=== PATIENT | male | born 1945 | race Caucasian/White ===

== ENCOUNTER → 2016-05-12 | Outpatient (CLI) | payer MEDICARE, OTHER ==
[~2016-05-12] MED LIST: AMLO10TA2 PO; ASPI-983 PO; ATOR40TA70 PO; CLOP75TA28 PO; FURO40TA4 PO; LOSA100T28 PO; METO-274 PO; OMEP20CA12 PO; POTA20TA15 PO; RT-ALBUINH IH; RT-ALBUTEROL SULF 2.5 MG/3 ML PRE-MIX VIAL INH ONE; SPIR25TA3 PO
== END ==
LOC: RT 11:35
PROVIDERS: ATTEND Internal Medicine Cardiovascular Disease
DX: I11.0 Hypertensive heart disease with heart failure (principal); I50.31 Acute diastolic (congestive) heart failure; J43.8 Other emphysema; Z72.0 Tobacco use
CPT/HCPCS: 94060; 94640; 94726; 94729

== ENCOUNTER → 2016-05-14 | Outpatient (CLI) | payer MEDICARE, OTHER ==
[~2016-05-14] MED LIST changes: -RT-ALBUTEROL SULF 2.5 MG/3 ML PRE-MIX VIAL INH ONE
--- NOTE | 2016-05-19 08:06 | ECHOCARDIOGRAPHY REPORT ---
PROCEDURE PHYSICIAN: DAGO DORANTES DATE OF PROCEDURE: 05/14/2016 TWO DIMENSIONAL ECHOCARDIOGRAM REPORT PRIMARY PHYSICIAN: OTHER PHYSICIAN: REFERRING PHYSICIAN: ORDERING PHYSICIAN: Dr. Dorantes INDICATION FOR THE PROCEDURE: 1. Shortness of breath. 2. Congestive heart failure. MEASUREMENTS DERIVED VALUES LV DIAMETER (LAX) NORMALS NORMALS Diastolic 5 (3.6-5.2) Eject. Fract. (60%+/-6%) Systolic (2.3-3.9) Diastolic Vol. % Shortening (0.22-0.42) Systolic Vol. Aortic Root 3.5 IVS THICKNESS Diastolic 1.4 (0.6-1.1) LVPW THICKNESS Diastolic 1.4 (0.6-1.1) LA DIAMETER Systolic 2.9 (2.1-3.7) DESCRIPTION: This is a technically difficult study. The study is not ideal for wall motion analysis . Global left ventricular systolic function appears well preserved. Left ventricular ejection fraction is estimated to be 50 to 55%. There is mild mitral annular calcification. Aortic, mitral and tricuspid valve leaflets show good leaflet excursion. There is mild concentric left ventricular hypertrophy. Doppler imaging shows trivial, mitral and tricuspid regurgitation. There is no Doppler significant valvular stenosis. There is no evidence of any significant intracardiac shunt on this transthoracic echocardiographic study. Inferior vena cava does not appear to be dilated and does have inspiratory collapse. Trivial aortic regurgitation is seen. CONCLUSIONS: 1. Technically difficult study. 2. Well preserved global left ventricular systolic function with an ejection fraction of 50 to 55%. 3. Trivial, mitral, tricuspid and aortic regurgitation. 4. No evidence of significant valvular stenosis. Job ID: [id number] Dictated Date: 05/18/2016 15:30:55 Food Processing Scientist Date: 05/19/2016 07:56:28 / kay
== END ==
LOC: CARD 10:11
PROVIDERS: ATTEND Internal Medicine Cardiovascular Disease
DX: I50.31 Acute diastolic (congestive) heart failure (principal); I11.0 Hypertensive heart disease with heart failure; J43.8 Other emphysema; Z72.0 Tobacco use
CPT/HCPCS: 93306

== ENCOUNTER 2016-05-18 06:57 | Day surgery (SDC) | payer MEDICARE, OTHER ==
[2016-05-18] VITALS (14 sets, daily range): BP systolic 169–198; BP diastolic 85–99
[~2016-05-18] VITALS: Ht 182.9 cm; Wt 91.6 kg
[2016-05-18] MEDS ORDERED: HEParin (CATH LAB) 2,000 ML IV ONE (07:04)
[2016-05-18] MEDS ORDERED: NS IV 1000 ML 1,000 ML ONE (07:04)
[2016-05-18] MEDS ORDERED: LIDOCAINE 1% INJ 20 ML (XYLOCAINE) VIAL ONE (07:04)
[2016-05-18 07:41] LABS: MEAN PLATELET VOLUME 10.8 FL (7.4-10.4); RED BLOOD COUNT 4.78 10^6/uL (4.35-5.85); RED CELL DISTRIBUTION WIDTH 13.2 % (10.0-14.5)
[2016-05-18] MEDS ORDERED: NS IV 1000 ML 1,000 ML IV SCH ×2 (07:45→11:26)
[2016-05-18] MEDS ORDERED: FLU TRIvalent (5 YOA+) 2016-17 (AFLURIA) 0.5 ML IM ONE (07:45)
[2016-05-18 07:54] LABS: PROTHROMBIN TIME PATIENT 12.5 SEC (12.2-14.7)
[2016-05-18 07:57] LABS: ALANINE AMINOTRANSFERASE 14 U/L (0-55); ANION GAP 13 MMOL/L (5-14); ASPARTATE AMINO TRANSFERASE 25 U/L (5-34); BILIRUBIN,TOTAL 0.8 MG/DL (0.1-1.0); BLOOD UREA NITROGEN 7 MG/DL (7-18); BUN/CREATININE RATIO 6; CALCIUM 9.1 MG/DL (8.5-10.1); CARBON DIOXIDE 34 MMOL/L (21-32); CHLORIDE 92 MMOL/L (98-107); CHOLESTEROL 195 MG/DL (< 200); CREATININE SERUM 1.17 MG/DL (0.60-1.30); DIRECT LDL 127 MG/DL (1-129); GFR ESTIMATED > 60; GLUCOSE 109 MG/DL (70-105); SODIUM 139 MMOL/L (135-145); TOTAL PROTEIN 7.4 G/DL (6.4-8.2); TRIGLYCERIDES 208 MG/DL (<150); VLDL CHOLESTEROL 42 MG/DL (5-40)
[2016-05-18] MEDS ORDERED: OMEP20CA12 PO (08:29)
[2016-05-18] MEDS ORDERED: ATOR40TA70 PO (08:29)
[2016-05-18] MEDS ORDERED: FURO40TA4 PO (08:29)
[2016-05-18] MEDS ORDERED: METO-274 PO (08:29)
[2016-05-18] MEDS ORDERED: SPIR25TA3 PO (08:29)
[2016-05-18] MEDS ORDERED: LOSA100T28 PO (08:29)
[2016-05-18] MEDS ORDERED: AMLO10TA2 PO (08:29)
[2016-05-18] MEDS ORDERED: RT-ALBUINH IH (08:29)
[2016-05-18] MEDS ORDERED: ASPI-983 PO (08:29)
[2016-05-18] MEDS ORDERED: POTA20TA15 PO (08:29)
[2016-05-18] MEDS ORDERED: MIDAZOLAM 5 MG/5 ML (VERSED) VIAL ONE (10:04)
[2016-05-18] MEDS ORDERED: diphenhydrAMINE 50 MG/ML INJ (BENADRYL) ONE (10:04)
[2016-05-18] MEDS ORDERED: fentaNYL INJECTION 100 MCG/2 ML AMP ONE (10:04)
--- NOTE | 2016-05-18 10:28 | Cardiac Procedure Note-CS/ASA ---
Pre-Procedure Note Pre-Op Procedure Note H&P Reviewed The H&P was reviewed, patient examined and no changes noted. Date H&P Reviewed: May 18, 2016 Time H&P Reviewed: 10:28 Conscious Sedation Pre-Proced Time Reviewed: : ASA Class: 3 Airway Mallampati Classification: ([place] appropriate class) I. II. III, IV Lungs Heart ASA score ASA 1: a normal healthy patient ASA 2: a patient with a mild systemic disease (mid diabetes, controlled hypertension, obesity ASA 3: a patient with a severe systemic disease that limits activity (angina , COPD, prior Myocardial infarction) ASA 4: a patient with an incapacitating disease that is a constant threat to life (CHF, renal failure) ASA 5: a moribund patient not expected to survive 24 hrs. (ruptured aneurysm) ASA 6: a declared brain patient whose organs are being harvested. For emergent operations, add the letter E after the classification Grade 2 Sedation Plan: Analgesia, Amnesia, Plan communicated to team members, Discussed options with patient/fam, Discussed risks with patient/fam Note The patient is an appropriate candidate to undergo the planned procedure, sedation, and anesthesia. The patient immediately re-assessed prior to indication. DAGO RAPHAEL MD FACP FAC CCDS May 18, 2016 10:28
[2016-05-18] MEDS ORDERED: NITROGLYCERIN DRIP 25 MG/D5W 250 ML IV ONE (10:34)
[2016-05-18] MEDS ORDERED: HEParin 1000 UNIT/ML (10ML VIAL) FOR BOLUS ONE (10:34)
[2016-05-18] MEDS ORDERED: EPTIFIBATIDE BOLUS 20 ML IV ONE (10:34)
[2016-05-18] MEDS ORDERED: ASPIRIN 81 MG CHEW (CHILDREN'S ASA) ONE (11:08)
[2016-05-18] MEDS ORDERED: CLOPIDOGREL 300 MG (PLAVIX) TABLET PO ONE ×2 (11:08→11:13)
[2016-05-18] MEDS ORDERED: PATIENT MAY USE OWN MEDS, ALL PO SCH (11:30)
[2016-05-18] MEDS ORDERED: ACETAMINOPHEN 325 MG TABLET/CAPLET (TYLENOL) PO PRN (11:30)
[2016-05-18] MEDS ORDERED: ALBUTEROL INHALER HFA (VENTOLIN HFA) 18 GM IH PRN (13:15)
--- NOTE | 2016-05-18 13:26 | CARDIAC CATHETERIZATION ---
PROCEDURE PHYSICIAN: DAGO RAPHAEL CARDIAC CATHETERIZATION AND CORONARY INTERVENTION DATE OF PROCEDURE: 05/18/2016 Sebastien Toledo is a 70-year-old man who has had new onset congestive heart failure. He has exertional shortness of breath, consistent with an angina equivalent. Cardiac catheterization was carried out today after having obtained an informed consent. PROCEDURE: He was brought to the cardiac catheterization laboratory in a fasting state. The right groin was prepped and draped in usual sterile fashion. 1% lidocaine was used for local anesthesia. Modified Seldinger technique was used to advance a 5-Comoran sheath in the right femoral artery. A 5-Comoran JL4 catheter was used for left coronary angiography. 5-Comoran JR 4 was used for the right coronary angiography. A 5-Comoran pigtail catheter was used for left heart catheterization, left ventricular angiography. 5-Comoran pigtail catheter was pulled back to the aortic arch and aortic arch angiography was performed. The catheter was then removed. PERCUTANEOUS INTERVENTION OF THE RIGHT CORONARY ARTERY: Following diagnostic procedure, we carried out percutaneous intervention to the dominant right coronary artery which is exhibiting 80% mid vessel stenosis. We exchanged the sheath over or a wire for a 6-Comoran sheath. We used a 6-Comoran JR4 guide catheter. We have a double bolus of Integrilin. We gave 6500 units of intravenous heparin. We advanced a BMW wire across the lesion after engaging the right coronary artery with the 6-Comoran JR4 guide catheter. We advanced Alpine Xience 3.0 x 15 mm stent to the lesion and the stent was deployed at 18 atmospheres. Stent expansion was achieved. Subsequent angiography revealed 0% residual stenosis at the site of 80% stenosis but there appeared to be approximately 60% stenosis just proximal to the proximal area of the stent. Accordingly, following removal of the stent balloon, we advanced another Alpine Xience stent. This is Alpine Xience 3.5 x 12 mm. This was made to overlap slightly with the previous stent and the stent was deployed at 10 atmospheres. The stent was deployed at 15 atmospheres. Peripheral stent expansion was achieved. The stent balloon was removed and we then advanced an Emerge 3.5 x 15 mm balloon and balloon inflation was carried out within the stented area, including the area of the stent overlap. This balloon was then removed. Subsequent angiography revealed 0% residual stenosis at the previous site of 80% 60% stenoses in the proximal and mid right coronary artery; flow throughout the vessel was normal. The mid to distal right coronary artery has approximately 30% stenosis. The distal right coronary artery has approximately 30 to 40% stenosis. These were not intervened on. Flow throughout the vessel was normal. The very distal right coronary artery and its small branch have moderate disease. HEMODYNAMICS: Left ventricular end diastolic pressure following coronary angiography was 9 mmHg. There is no significant pressure gradient on pullback across the aortic valve. Ascending aortic pressure 153/77 with a mean of 107 mmHg. LEFT VENTRICULAR ANGIOGRAPHY: Left ventricular angiography was carried out in the right anterior oblique projection. Global left ventricular systolic function is normal. No regional wall motion abnormalities are seen. Left ventricular ejection fraction of 50 to 55%. There does not appear to be significant mitral regurgitation. AORTIC ARCH ANGIOGRAPHY: Aortic arch angiography did not indicate any significant thoracic aortic aneurysm or dissection. There is considerable calcification of the aortic arch. The neck arteries, to the extent visualized, do not seem to have significant obstructive disease. CORONARY ANGIOGRAPHY: Diffuse coronary calcification is present. There is diffuse, moderate disease of the left coronary system. The right coronary artery is dominant. There was 80% mid vessel stenosis and 60% proximal stenosis. These areas were treated with overlapped stents. From a proximal to distal, the stents are Alpine Xience 3.5 x 12 mm and Alpine Xience 3.0 x 15 mm. These have been postdilated with a 3.5 mm balloon. There is no significant residual stenosis following stent deployment. The distal right coronary artery has multiple stenoses of up to approximately 40 to 50%. CONCLUSIONS: 1. Coronary artery disease, primarily consisting of up to 80% mid vessel stenosis right coronary artery which was treated with overlapping stents: Alpine Xience 3.5 x 15 mm proximally and Alpine Xience 3.0 x 15 mm distally, postdilated with a 3.5 mm balloon. The rest of the coronary vessels have diffuse, moderate disease. 2. Well-preserved global left ventricular systolic function with an ejection fraction of 50 to 55%. 3. No significant mitral regurgitation. 4. Normal left ventricular end-diastolic pressure. 5. Aortic arch calcification. DISCUSSION AND RECOMMENDATIONS: Risk factor modifications were already reviewed with him. Aspirin and clopidogrel has been added to the regimen. He is being hospitalized for observation following today's procedure. Job ID: [id number] Dictated Date: 05/18/2016 11:22:24 Fur Feeder Date: 05/18/2016 13:03:20 / sadie ZELAYA
[2016-05-18] MEDS: meTOprolol SUCCINATE 100 MG (TOPROL XL) TAB PO SCH (20:09)
[2016-05-18] MEDS ORDERED: ATORVASTATIN 40 MG (LIPITOR) TABLET PO SCH (21:00)
[2016-05-18] MEDS ORDERED: amLODIPine 10 MG (NORVASC) TAB PO SCH (21:00)
[2016-05-18] MEDS ORDERED: OMEPRAZOLE 20 MG (PriLOSEC) CAP NON-FORMULARY PO SCH (21:00)
[2016-05-19] VITALS: BP 163/82
[2016-05-19 03:30] VITALS: BP 170/86
[2016-05-19 04:36] LABS: MEAN PLATELET VOLUME 11.3 FL (7.4-10.4); RED BLOOD COUNT 3.99 10^6/uL (4.35-5.85); WHITE BLOOD COUNT 4.1 10^3/uL (4.3-11.0)
[2016-05-19 04:55] LABS: ANION GAP 11 MMOL/L (5-14); BLOOD UREA NITROGEN 8 MG/DL (7-18); BUN/CREATININE RATIO 9; CALCIUM 8.3 MG/DL (8.5-10.1); CARBON DIOXIDE 29 MMOL/L (21-32); CHLORIDE 96 MMOL/L (98-107); CREATININE SERUM 0.91 MG/DL (0.60-1.30); GFR ESTIMATED > 60; GLUCOSE 96 MG/DL (70-105); POTASSIUM 2.8 MMOL/L (3.6-5.0); SODIUM 136 MMOL/L (135-145)
[2016-05-19] MEDS ORDERED: KCL 20 MEQ TAB (K-DUR) PO SCH (07:00)
[2016-05-19 07:45] VITALS: BP 149/80
--- NOTE | 2016-05-19 08:30 | Progress Note-Cardiology ---
Cardiology SOAP Progress Note Subjective: Up in the room. No c/o CP, palpitations, dyspnea, syncope or near syncope. Objective: I&O/Vital Signs Vital Sign - Last 12Hours 05/18/16 05/19/16 05/19/16 05/19/16 23:02 00:00 00:00 01:00 Temp 100.0 Pulse 86 76 79 75 Resp 16 20 20 B/P 163/82 163/82 Pulse Ox 96 95 95 O2 Delivery Nasal Cannula Nasal Cannula Nasal Cannula O2 Flow Rate 2.00 2.00 2.00 05/19/16 05/19/16 03:30 07:00 Temp 99.9 Pulse 68 67 Resp 20 B/P 170/86 Pulse Ox 94 O2 Delivery Nasal Cannula O2 Flow Rate 1.00 Intake and Output 05/19/16 00:00 Intake Total 1400 ml Output Total 1600 ml Balance -200 ml Weight (Pounds): 202 Weight (Ounces): 0.0 Weight (Calculated Kilograms): 91.887233 Side: right Groin site without hematoma: Yes Condition: DP/PT pulses palpable, extremity w/d/p Bruising: mild bruising Constitutional: AAO x 3 Respiratory: No accessory muscle use, No respiratory distress, chest expansion is symmetric chest is bilaterally symmetric lungs clear to auscultation Cardiovascular: regular rate-rhythmNo JVD, S1 and S2 Gastrointestional: No tender, soft round Extremities: no lower extremity edema bilateral Neurologic/Psychiatric: grossly intact Skin: No ulcerations Results/Procedures: Labs Laboratory Tests 05/19/16 04:02: Anion Gap 11, BUN/Creatinine Ratio 9, Blood Urea Nitrogen 8, Calcium Level 8.3L , Carbon Dioxide Level 29, Chloride Level 96L, Creatinine 0.91, Estimat Glomerular Filtration Rate > 60, Glucose Level 96, Hematocrit 40, Hemoglobin 14.5, Mean Corpuscular Hemoglobin 36H, Mean Corpuscular Hemoglobin Concent 36, Mean Corpuscular Volume 101H, Mean Platelet Volume 11.3H, Platelet Count 134, Potassium Level 2.8L, Red Blood Count 3.99L, Red Cell Distribution Width 13.0, Sodium Level 136, White Blood Count 4.1L Procedures S/P cardiac cath on 05-18-16 with successful intervention per Dr. Dorantes. Please refer to his cardiac cath report for details. A/P: Assessment: Coronary artery disease, primarily consisting of up to 80% mid vessel stenosis right coronary artery which was treated with overlapping stents: Alpine Xience 3.5 x 15 mm proximally and Alpine Xience 3.0 x 15 mm distally, postdilated with a 3.5 mm balloon. The rest of the coronary vessels have diffuse, moderate disease. Well-preserved global left ventricular systolic function with an ejection fraction of 50 to 55%. No significant mitral regurgitation. Normal left ventricular end-diastolic pressure. Aortic arch calcification. Per cardiac cath of 05-18-16 Recent exacerbation of advanced COPD Recent hospitalization with new onset diastolic CHF - clinically compensated MPI of 11-04-15 showed no evidence of significant myocardial ischemia or infarction. global LV systolic function appears to be at the lower limit of normal to mildly impaired. LVEF is calculated to be 41-46%, but subjectively appears to be around 50%. Mild to mod cardiomegaly Echocardiogram of February 2015 at [facility] in [place], [place] by Dr. Jensen showed LVEF 55%. Mild to mod LVH. Mild diastolic dysfunction. Mild AI. Trace TR. Severe ostial left renal artery stenosis with subsequent percutaneious transluminal angioplasty and residual minimal stenosis, no dissection or distal embolization by Dr. Keen at [facility] in [place], [place] CT of the chest from August 2006 showed borderline adenopathy in the axillary regions and in the subcarnial space. 7 mm pulmonary nodule in the RUL. Advise f/u with his PCP Carotid arterial disease with Left CEA on 01-12-[address] Langston in [place], [place]. Carotid u/s of April 2016 showed mild bilat carotid dz No evidence of AAA per u/s of 05-14-16 PAD - angioplasty of the right anterior tibial, posterior tibial and peroneal with Medtronic Nitinol 4mm x 20mm stent in the right posterior tibial November by Dr. Langston in [place], [place] Hypertension HLP - statin therapy followed by his PCP Emphysema GERD EKG of 11-03-15 showed LVH with repolarization abnormality and LAFB Tobaccoism (2 PPD) - cessation advised Hypokalemia - replace Plan: Risk factor modifications were already reviewed with him. Aspirin and clopidogrel has been added to the regimen. Continue current medications Smoking cessation once again advise Replace potassium Out pt lab Discussed results of cardiac cath from 05-18-16 with him and his spouse Discharge home today with out pt f/u appt Physician Assessment Physician Assessment Lungs: clear Cor: reg A&R * As documented in our note above * I spoke with him and his in detail. I explained the findings and treatments at the time of card cath. I discussed risk factor modification. I discussed med compliance and outpatient f/u. I answered their questions BARNEY KINSEY May 19, 2016 08:30 DAGO DORANTES MD FACP [facility] CCDS May 19, 2016 09:45
[2016-05-19] MEDS ORDERED: CLOP75TA28 PO (08:55)
--- NOTE | 2016-05-19 08:57 | Discharge Inst-Cardiology ---
Discharge Inst-Cardiac Discharge Medications New Medications: Clopidogrel Bisulfate (Clopidogrel) 75 Mg Tablet 75 MG PO DAILY #90 Ref 3 TAB Continued Medications: Albuterol Sulfate (Ventolin Hfa) 18 Gm Hfa.aer.ad 1-2 PUFF IH Q4H PRN SHORTNESS OF BREATH INHALER Amlodipine Besylate (Amlodipine Besylate) 10 Mg Tablet 10 MG PO HS TAB Aspirin (Aspirin EC) 81 Mg Tablet.dr 81 MG PO HS TAB Atorvastatin Calcium (Atorvastatin Calcium) 40 Mg Tablet 40 MG PO HS TAB Furosemide (Furosemide) 40 Mg Tablet 40 MG PO DAILY TAB Losartan Potassium (Losartan Potassium) 100 Mg Tablet 100 MG PO DAILY TAB Metoprolol Succinate (Metoprolol Succinate) 100 Mg Tab.er.24h 100 MG PO Q12H TAB Omeprazole (Omeprazole) 20 Mg Capsule.dr 20 MG PO HS CAP Potassium Chloride (Potassium Chloride) 20 Meq Tab.er.prt 10 MEQ PO DAILY TAKES 1/2 OF A (20 MEQ) TABLET Spironolactone (Spironolactone) 25 Mg Tablet 25 MG PO DAILY LAST FILLED 01/30/16 #60 TAB New, Converted or Re-Newed RX: Transmitted to Pharmacy Patient Instructions Patient Instructions: Lab: BMP and Mag level on Tuesday, May 21, 2016 Please schedule follow up appt to see Dr. Dorantes in 2 weeks BARNEY KINSEY May 19, 2016 08:57
[2016-05-19] MEDS ORDERED: KCL 20 MEQ TAB (K-DUR) PO NR (08:58)
[2016-05-19] MEDS ORDERED: ASPIRIN E.C. 81 MG (ECOTRIN) TAB PO SCH (09:00)
[2016-05-19] MEDS ORDERED: LOSARTAN 100 MG TABLET PO SCH (09:00)
[2016-05-19] MEDS ORDERED: SPIRONOLACTONE 25 MG (ALDACTONE) TAB PO SCH (09:00)
[2016-05-19] MEDS ORDERED: CLOPIDOGREL 75 MG (PLAVIX) TABLET PO SCH (09:00)
[2016-05-19] MEDS ORDERED: FUROSEMIDE 40 MG (LASIX) TAB PO SCH (09:00)
[2016-05-19] MEDS: meTOprolol SUCCINATE 100 MG (TOPROL XL) TAB PO SCH (09:01)
== END 2016-05-19 10:55 | disposition home or self-care (01) ==
LOC: CATH 06:57 → ICU 11:35 → CATH 05-19 10:55
PROVIDERS: ATTEND Internal Medicine Cardiovascular Disease
DX: I50.9 Heart failure, unspecified (principal); I25.10 Atherosclerotic heart disease of native coronary artery without angina pectoris; I70.0 Atherosclerosis of aorta; I25.84 Coronary atherosclerosis due to calcified coronary lesion; J44.9 Chronic obstructive pulmonary disease, unspecified; Z79.899 Other long term (current) drug therapy; Z72.0 Tobacco use; Z95.820 Peripheral vascular angioplasty status with implants and grafts
CPT/HCPCS: 36221; 36415; 80048; 80053; 80061; 85027; 85610; 85730; 87081; 90471; 93005; 93458

== ENCOUNTER → 2016-05-21 | Outpatient (CLI) | payer MEDICARE, OTHER ==
[2016-05-21 12:47] LABS: ANION GAP 12 MMOL/L (5-14); BLOOD UREA NITROGEN 7 MG/DL (7-18); BUN/CREATININE RATIO 7; CALCIUM 8.7 MG/DL (8.5-10.1); CARBON DIOXIDE 28 MMOL/L (21-32); CHLORIDE 98 MMOL/L (98-107); GFR ESTIMATED > 60; GLUCOSE 107 MG/DL (70-105); MAGNESIUM 1.4 MG/DL (1.8-2.4); POTASSIUM 2.9 MMOL/L (3.6-5.0); SODIUM 138 MMOL/L (135-145)
== END ==
LOC: LAB 12:12
PROVIDERS: ATTEND Nurse Practitioner Family
DX: E87.6 Hypokalemia (principal); I10 Essential (primary) hypertension
CPT/HCPCS: 36415; 80048; 83735

== ENCOUNTER → 2016-05-24 | Outpatient (CLI) | payer MEDICARE, OTHER ==
[2016-05-24 10:14] LABS: ANION GAP 15 MMOL/L (5-14); BLOOD UREA NITROGEN 6 MG/DL (7-18); BUN/CREATININE RATIO 6; CALCIUM 8.9 MG/DL (8.5-10.1); CARBON DIOXIDE 26 MMOL/L (21-32); CHLORIDE 97 MMOL/L (98-107); CREATININE SERUM 1.07 MG/DL (0.60-1.30); GFR ESTIMATED > 60; GLUCOSE 110 MG/DL (70-105); MAGNESIUM 1.5 MG/DL (1.8-2.4); POTASSIUM 3.3 MMOL/L (3.6-5.0); SODIUM 138 MMOL/L (135-145)
== END ==
LOC: LAB 09:45
PROVIDERS: ATTEND Nurse Practitioner Family
DX: E87.6 Hypokalemia (principal); E83.42 Hypomagnesemia
CPT/HCPCS: 36415; 80048; 83735

== ENCOUNTER → 2016-05-25 | Outpatient (CLI) | payer MEDICARE, OTHER | LOC: RAD 11:22 | PROVIDERS: ATTEND Internal Medicine Cardiovascular Disease | DX: I73.9 Peripheral vascular disease, unspecified (principal); I50.31 Acute diastolic (congestive) heart failure; I10 Essential (primary) hypertension; Z72.0 Tobacco use; J43.8 Other emphysema | CPT/HCPCS: 93922 ==

== ENCOUNTER → 2016-06-07 | Outpatient (CLI) | payer MEDICARE, OTHER ==
[2016-06-07 09:24] LABS: CALCIUM 9.5 MG/DL (8.5-10.1); CREATININE SERUM 1.39 MG/DL (0.60-1.30); MAGNESIUM 1.7 MG/DL (1.8-2.4); POTASSIUM 3.9 MMOL/L (3.6-5.0)
== END ==
LOC: LAB 08:41
PROVIDERS: ATTEND Nurse Practitioner Family
DX: E87.6 Hypokalemia (principal); E83.42 Hypomagnesemia
CPT/HCPCS: 36415; 80048; 83735

== ENCOUNTER → 2016-06-07 | Outpatient (CLI) | payer MEDICARE, OTHER ==
--- OUTSIDE RECORDS SUMMARY | 2016-06-07 08:38 | XMS REPORT | Continuity of Care Document ---
Author Author [facility] Organization [facility] Address Unknown Phone Unavailable Allergies Active Description Code Type Severity Reaction Onset Reported/Identified Relationship to Patient Clinical Status Yes sulfa drugs NKMA N/A [id number] 12/07/2013 Medications Problems Procedures Results Encounters ACCT No. Visit Date/Time Discharge Status Pt. Type Provider Facility Loc./Unit Complaint [id number] 05/07/2014 14:50:00 2014 23:59:00 DIS Outpatient Sondra Grant [facility] results
--- NOTE | 2016-06-07 09:22 | Diagnostic Imaging Report ---
PROCEDURE: CT chest without contrast. TECHNIQUE: Multiple contiguous axial images were obtained through the chest without the use of intravenous contrast. INDICATION: COPD. CHF. COMPARISON: No prior similar studies are available for comparison. FINDINGS: There is some intralobular septal thickening in the periphery of the lungs more prominent in the mid and lower lung zones. There are no prior similar studies available for comparison. The findings are however likely related to fibrotic changes given slight distorted appearance of the parenchyma in favor of scarring. There is no significant consolidation. There are pulmonary nodules along the minor fissure up to 7 mm in size of indeterminate etiology. No other suspicious nodule or lung mass is identified. The heart size is normal. No pericardial effusion. No pleural effusion. The thoracic aorta is normal in caliber. There are mildly enlarged infracarinal lymph node measuring 1.3 cm and other minimally prominent mediastinal lymph nodes less than 1 cm in size. The hilar vessels are not opacified with no obvious adjacent hilar mass. No axillary lymphadenopathy is identified. The sections in the upper abdomen demonstrates cholecystectomy clips. The osseous structures demonstrate mild degenerative changes. IMPRESSION: 1. There is mild peripheral intralobular septal thickening in the mid and lower lung zones favored to be related to nonspecific fibrotic changes. There is no bronchiectasis or honeycombing. No prior studies are available for comparison. This can be better evaluated with HRCT if needed. 2. Indeterminate 7 mm pulmonary nodule along the minor fissure. A followup exam in 4-6 months is recommended to observe this lesion. 3. Minimally enlarged infracarinal lymph node of uncertain significance. Dictated by: Dictated on workstation # [id number]
== END ==
LOC: RAD 08:35
PROVIDERS: ATTEND Internal Medicine Critical Care Medicine
DX: J43.8 Other emphysema (principal); I50.31 Acute diastolic (congestive) heart failure; R06.83 Snoring; G47.9 Sleep disorder, unspecified; Z72.0 Tobacco use
CPT/HCPCS: 71250

== ENCOUNTER 2016-06-24 20:55 | Outpatient (CLI) | payer MEDICARE, OTHER ==
--- OUTSIDE RECORDS SUMMARY | 2016-06-24 21:08 | XMS REPORT | Continuity of Care Document ---
Author Author [facility] Organization [facility] Address Unknown Phone Unavailable Allergies Active Description Code Type Severity Reaction Onset Reported/Identified Relationship to Patient Clinical Status Yes sulfa drugs NKMA N/A [id number] 12/07/2013 Medications Problems Procedures Results Encounters ACCT No. Visit Date/Time Discharge Status Pt. Type Provider Facility Loc./Unit Complaint [id number] 05/07/2014 14:50:00 2014 23:59:00 DIS Outpatient Sondra Grant [facility] results
== END 2016-06-25 06:00 | disposition home or self-care (01) ==
LOC: SLEEP 20:55
PROVIDERS: ATTEND Internal Medicine Critical Care Medicine
DX: G47.50 Parasomnia, unspecified (principal); G47.30 Sleep apnea, unspecified; G47.10 Hypersomnia, unspecified
CPT/HCPCS: 95810

== ENCOUNTER → 2016-08-09 | Outpatient (CLI) | payer MEDICARE, OTHER ==
[2016-08-09 08:59] LABS: BASOPHILS % (AUTO) 0 % (0-10); EOSINOPHILS # (AUTO) 0.3 10^3/uL (0.0-0.3); EOSINOPHILS % (AUTO) 4 % (0-10); LYMPHOCYTES # (AUTO) 1.1 X 10^3 (1.0-4.0); LYMPHOCYTES % (AUTO) 15 % (12-44); MEAN CORPUSCULAR HEMOGLOBIN 35 PG (25-34); MEAN CORPUSCULAR HGB CONC 34 G/DL (32-36); MEAN CORPUSCULAR VOLUME 103 FL (80-99); MEAN PLATELET VOLUME 10.5 FL (7.4-10.4); MONOCYTES # (AUTO) 0.7 X 10^3 (0.0-1.0); MONOCYTES % (AUTO) 10 % (0-12); NEUTROPHILS # (AUTO) 4.9 X 10^3 (1.8-7.8); NEUTROPHILS % (AUTO) 71 % (42-75); PLATELET COUNT 204 10^3/uL (130-400); RED BLOOD COUNT 3.73 10^6/uL (4.35-5.85); RED CELL DISTRIBUTION WIDTH 13.8 % (10.0-14.5); WHITE BLOOD COUNT 6.9 10^3/uL (4.3-11.0)
[2016-08-09 09:24] LABS: ALANINE AMINOTRANSFERASE 9 U/L (0-55); ALBUMIN 3.5 G/DL (3.2-4.5); ANION GAP 12 MMOL/L (5-14); ASPARTATE AMINO TRANSFERASE 16 U/L (5-34); BILIRUBIN,TOTAL 0.9 MG/DL (0.1-1.0); BLOOD UREA NITROGEN 7 MG/DL (7-18); BUN/CREATININE RATIO 6; CALCIUM 7.9 MG/DL (8.5-10.1); CARBON DIOXIDE 31 MMOL/L (21-32); CHLORIDE 97 MMOL/L (98-107); CHOLESTEROL 138 MG/DL (< 200); CREATININE SERUM 1.12 MG/DL (0.60-1.30); DIRECT LDL 83 MG/DL (1-129); GFR ESTIMATED > 60; GLUCOSE 98 MG/DL (70-105); MAGNESIUM 1.1 MG/DL (1.8-2.4); POTASSIUM 2.6 MMOL/L (3.6-5.0); SODIUM 140 MMOL/L (135-145); TOTAL PROTEIN 6.8 G/DL (6.4-8.2); TRIGLYCERIDES 178 MG/DL (<150); VLDL CHOLESTEROL 36 MG/DL (5-40)
== END ==
LOC: LAB 08:27
PROVIDERS: ATTEND Internal Medicine Cardiovascular Disease
DX: E78.4 Other hyperlipidemia (principal); I73.89 Other specified peripheral vascular diseases; I65.23 Occlusion and stenosis of bilateral carotid arteries; I25.10 Atherosclerotic heart disease of native coronary artery without angina pectoris; I12.9 Hypertensive chronic kidney disease with stage 1 through stage 4 chronic kidney disease, or unspecified chronic kidney disease; N18.3 Chronic kidney disease, stage 3 (moderate); Z72.0 Tobacco use
CPT/HCPCS: 36415; 80053; 80061; 83735; 85025

== ENCOUNTER → 2016-12-13 | Outpatient (CLI) | payer MEDICARE, OTHER ==
[2016-12-13 10:41] LABS: ANION GAP 10 MMOL/L (5-14); BLOOD UREA NITROGEN 7 MG/DL (7-18); BUN/CREATININE RATIO 8; CALCIUM 9.2 MG/DL (8.5-10.1); CARBON DIOXIDE 29 MMOL/L (21-32); CHLORIDE 99 MMOL/L (98-107); CREATININE SERUM 0.93 MG/DL (0.60-1.30); GFR ESTIMATED > 60; GLUCOSE 101 MG/DL (70-105); MAGNESIUM 1.5 MG/DL (1.8-2.4); POTASSIUM 3.3 MMOL/L (3.6-5.0); SODIUM 138 MMOL/L (135-145)
== END ==
LOC: LAB 09:44
PROVIDERS: ATTEND Nurse Practitioner Family
DX: I25.10 Atherosclerotic heart disease of native coronary artery without angina pectoris (principal); I12.9 Hypertensive chronic kidney disease with stage 1 through stage 4 chronic kidney disease, or unspecified chronic kidney disease; N18.3 Chronic kidney disease, stage 3 (moderate); M79.89 Other specified soft tissue disorders; I65.23 Occlusion and stenosis of bilateral carotid arteries; I73.89 Other specified peripheral vascular diseases
CPT/HCPCS: 36415; 80048; 83735

== ENCOUNTER → 2016-12-15 | Outpatient (CLI) | payer MEDICARE, OTHER ==
--- NOTE | 2016-12-15 12:22 | Diagnostic Imaging Report ---
PROCEDURE: CT chest without contrast. TECHNIQUE: Multiple contiguous axial images were obtained through the chest without the use of intravenous contrast. INDICATION: Lung nodule. FINDINGS: The previous CT chest exam performed on 06/07/2016 noted a 7 mm indeterminate pulmonary nodule along the minor fissure. That finding is again evident on this exam and does not seem to have changed significantly in size or appearance (image 31 of 63). This finding was not included on the previous CTA abdomen exam of 05/07/2014 or CTA aorta exam of 11/02/2013. However, its stability in the interval since the previous CT chest exam would suggest it is not related to an aggressive process. I would recommend that a six-month followup CT chest exam be performed for continued study. The overall appearance of the chest has not changed significantly otherwise. No other parenchymal nodule is identified. The chronic pulmonary changes seen previously are again evident and no different. There is still no sign of failure, pneumonia or pleural effusion to suggest an acute abnormality. The heart is enlarged but stable in size. There are coronary artery calcifications evident. The aorta is not abnormally dilated. There is no significant mediastinal or hilar adenopathy noted. The 13 mm subcarinal node seen on the previous exam now measures 12 mm. The thyroid gland is unremarkable. There is no obvious breast mass. The sections through the upper abdomen show that the liver is of lower density than usually seen. This does suggest fatty metamorphosis. The bone windows are unremarkable for an acute fracture or for destructive lesion. IMPRESSION: 1. The 7 mm noncalcified nodule in the minor fissure on the right seen previously appears stable. Most likely, this is a benign process. Recommendations as above. 2. The overall appearance of the chest itself has not changed significantly since the prior exam. There is no acute cardiopulmonary abnormality noted. Dictated by: Dictated on workstation # [id number]
== END ==
LOC: RAD 10:53
PROVIDERS: ATTEND Nurse Practitioner Family
DX: R91.1 Solitary pulmonary nodule (principal)
CPT/HCPCS: 71250

== ENCOUNTER → 2017-06-14 | Outpatient (CLI) | payer MEDICARE, OTHER ==
[~2017-06-14] MED LIST changes: -METO-274 PO; +METO-395 PO
--- NOTE | 2017-06-14 13:11 | Diagnostic Imaging Report ---
PROCEDURE: CT chest without contrast. TECHNIQUE: Multiple contiguous axial images were obtained through the chest without the use of intravenous contrast. INDICATION: Followup lung nodules. COMPARISON: Comparison is made with prior CT chest from 12/15/2016. FINDINGS: No axillary lymphadenopathy is seen. Small mediastinal lymph nodes appear to be fairly stable. Subcarinal node is stable at 12 mm. Coronary arterial calcifications are again noted. No pericardial fluid is seen. There does appear to be trace pleural fluid on the right. Parenchymal evaluation again demonstrates interstitial changes throughout both lungs. Nodular density noted along the minor fissure on the right is stable at approximately 6 mm. No new parenchymal nodule is seen. IMPRESSION: 1. Stable right middle lobe pulmonary nodule. This now shows one year of stability. Additional six-month followup is recommended to show continued stability. 2. Development of trace right pleural effusion. Dictated by: Dictated on workstation # [id number]
== END ==
LOC: RAD 11:06
PROVIDERS: ATTEND Nurse Practitioner Family
DX: R91.1 Solitary pulmonary nodule (principal); G47.33 Obstructive sleep apnea (adult) (pediatric); J44.9 Chronic obstructive pulmonary disease, unspecified; Z72.0 Tobacco use
CPT/HCPCS: 71250

== ENCOUNTER → 2017-12-28 | Outpatient (CLI) | payer MEDICARE, OTHER ==
[~2017-12-28] MED LIST changes: -AMLO10TA2 PO; +AMLO10TA6 PO; -LOSA100T28 PO; +LOSA100T8 PO; +RT-ALBUTEROL SULF 2.5 MG/3 ML PRE-MIX VIAL INH ONE; -SPIR25TA3 PO; +SPIR25TA5 PO
== END ==
LOC: RT 16:05
PROVIDERS: ATTEND Nurse Practitioner Family
DX: J84.10 Pulmonary fibrosis, unspecified (principal); G47.33 Obstructive sleep apnea (adult) (pediatric); R91.8 Other nonspecific abnormal finding of lung field; J44.9 Chronic obstructive pulmonary disease, unspecified; Z72.0 Tobacco use; R06.00 Dyspnea, unspecified; J90 Pleural effusion, not elsewhere classified; I50.31 Acute diastolic (congestive) heart failure
CPT/HCPCS: 94060; 94726; 94729

== ENCOUNTER → 2018-03-01 | Outpatient (CLI) | payer MEDICARE, OTHER ==
[~2018-03-01] MED LIST changes: -RT-ALBUTEROL SULF 2.5 MG/3 ML PRE-MIX VIAL INH ONE
--- NOTE | 2018-03-01 15:48 | Diagnostic Imaging Report ---
PROCEDURE: CT chest without contrast. TECHNIQUE: Multiple contiguous axial images were obtained through the chest without the use of intravenous contrast. INDICATION: Lung nodules and pleural effusions as well as shortness of breath. COMPARISON: Comparison is made with prior CT chest from 12/12/2017. FINDINGS: No axillary lymphadenopathy is identified. Multiple lymph nodes in the mediastinum are again seen and appear similar to prior exam. Geri are unremarkable. Coronary arterial calcifications are again noted. No pericardial or pleural fluid is seen. Peripheral interstitial changes which appear chronic are similar to prior exam. Nodular density in the right middle lobe is stable at 6-7 mm. No new parenchymal mass is identified. Upper abdomen is unremarkable. IMPRESSION: Stable noncontrast CT of the chest when compared with prior CT from 12/12/2017. Dictated by: Dictated on workstation # [id number]
== END ==
LOC: RAD 15:03
PROVIDERS: ATTEND Nurse Practitioner Family
DX: J90 Pleural effusion, not elsewhere classified (principal); I50.31 Acute diastolic (congestive) heart failure; J43.8 Other emphysema; G47.33 Obstructive sleep apnea (adult) (pediatric); R91.8 Other nonspecific abnormal finding of lung field; Z72.0 Tobacco use
CPT/HCPCS: 71250

== ENCOUNTER → 2018-03-07 | Outpatient (CLI) | payer MEDICARE, OTHER ==
--- NOTE | 2018-03-07 10:41 | Diagnostic Imaging Report ---
INDICATION: Dyspnea and hypersomnolence. TECHNIQUE: PA and lateral views of the chest were obtained. FINDINGS: There is cardiomegaly and mild venous congestion. There is no pleural effusion or pneumothorax. The mediastinum is unremarkable. IMPRESSION: Cardiomegaly and mild central pulmonary venous congestion. Dictated by: Dictated on workstation # [id number]
== END ==
LOC: RAD 09:14
PROVIDERS: ATTEND Nurse Practitioner Family
DX: J90 Pleural effusion, not elsewhere classified (principal); G47.10 Hypersomnia, unspecified; B37.0 Candidal stomatitis; I50.31 Acute diastolic (congestive) heart failure; G47.33 Obstructive sleep apnea (adult) (pediatric); J43.8 Other emphysema; I87.8 Other specified disorders of veins; I51.7 Cardiomegaly; Z72.0 Tobacco use
CPT/HCPCS: 71046

== ENCOUNTER → 2018-03-10 | Outpatient (CLI) | payer MEDICARE, OTHER ==
[~2018-03-10] MED LIST changes: +CATHETER FLUSH 10 ML SYR IV PRN; +IOHEXOL 350 MG/ML 150 ML (OMNIPAQUE 350) VIAL IV ONE; +NS 250 ML (IVPB) BAG IV ONE; +RECEIVED CONTRAST (Hold Metformin) IV SCH
[2018-03-10 12:28] LABS: ALANINE AMINOTRANSFERASE 33 U/L (0-55); ALBUMIN 3.8 GM/DL (3.2-4.5); ALKALINE PHOSPHATASE 129 U/L (40-136); BUN/CREATININE RATIO 7; CALCIUM 9.5 MG/DL (8.5-10.1); CARBON DIOXIDE 24 MMOL/L (21-32); CHLORIDE 96 MMOL/L (98-107); CREATININE SERUM 1.15 MG/DL (0.60-1.30); GFR ESTIMATED > 60; GLUCOSE 90 MG/DL (70-105); POTASSIUM 3.1 MMOL/L (3.6-5.0); SODIUM 135 MMOL/L (135-145); TOTAL PROTEIN 7.2 GM/DL (6.4-8.2)
--- NOTE | 2018-03-10 13:18 | Diagnostic Imaging Report ---
PROCEDURE: CT angiography of the chest with contrast. TECHNIQUE: Multiple contiguous axial images were obtained through the chest after uneventful bolus administration of intravenous contrast. 2D reconstructed CTA MIP acquisitions were also performed. INDICATION: Shortness of air for six days. COMPARISON: Comparison is made with noncontrast CT chest from 03/01/2018. FINDINGS: Evaluation of the pulmonary arterial system is without evidence of thromboembolism. No filling defects are seen within central, lobar or segmental branches. The thoracic aorta is without evidence of dissection. No pericardial or pleural fluid is seen. There are multiple small lymph nodes in the mediastinum, similar to prior exam. Coronary arterial calcifications are present. Parenchymal evaluation again shows some interstitial changes in the subpleural locations bilateral upper and lower lobes. The upper abdomen is unremarkable. IMPRESSION: 1. No evidence of pulmonary embolism or thoracic aortic dissection. 2. Stable interstitial changes when compared with exam from one week earlier. Interstitial changes may be increased when compared with CT dating back to May 2017. Dictated by: Dictated on workstation # [id number]
== END ==
LOC: RAD 11:53
PROVIDERS: ATTEND Nurse Practitioner Family
DX: J44.9 Chronic obstructive pulmonary disease, unspecified (principal); J90 Pleural effusion, not elsewhere classified; R91.8 Other nonspecific abnormal finding of lung field; Z72.0 Tobacco use
CPT/HCPCS: 36415; 71275; 80053

== ENCOUNTER 2018-03-20 05:51 | Outpatient (CLI) | payer MEDICARE, OTHER ==
[~2018-03-20] VITALS: Ht 182.9 cm; Wt 95.3 kg
[~2018-03-20 05:51] MED LIST changes: -CATHETER FLUSH 10 ML SYR IV PRN; -IOHEXOL 350 MG/ML 150 ML (OMNIPAQUE 350) VIAL IV ONE; -NS 250 ML (IVPB) BAG IV ONE; -RECEIVED CONTRAST (Hold Metformin) IV SCH
[2018-03-20] MEDS ORDERED: BUDE10.22 IH (16:05)
[2018-03-20] MEDS ORDERED: UMEC1BLS IH (16:05)
[2018-03-20] MEDS ORDERED: FURO20TA4 PO (16:05)
== END 2018-03-20 16:07 | disposition home or self-care (01) ==
LOC: PREOP 05:51
PROVIDERS: ATTEND Internal Medicine Critical Care Medicine
DX: Z01.818 Encounter for other preprocedural examination (principal)

== ENCOUNTER → 2018-03-23 | Day surgery (SDC) | payer MEDICARE, OTHER ==
[~2018-03-23] VITALS: Ht 182.9 cm; Wt 95.3 kg
[~2018-03-23] MED LIST changes: +BUDE10.22 IH; +FLUMAZENIL (ROMAZICON) 0.1 MG/ML 5 ML VIAL INJ PRN; +FURO20TA4 PO; +LIDOCAINE JELLY 2% (XYLOCAINE) 30 ML TUBE TOP ONE; +LIDOCAINE PF 1% 2 ML AMP IJ ONE; +LIDOCAINE PF 2% 5 ML (XYLOCAINE) VIAL INJ ONE; +MIDAZOLAM 2 MG/2 ML (VERSED) VIAL IVP ONE; +MIDAZOLAM 2 MG/2 ML (VERSED) VIAL ONE; +NALOXONE 0.4 MG/ML 1 ML (NARCAN) VIAL IVP PRN; +NS IV 500 ML 500 ML IV PRN; +NS IV 500 ML 500 ML ONE; +UMEC1BLS IH; +fentaNYL INJECTION 100 MCG/2 ML AMP IVP ONE; +fentaNYL INJECTION 100 MCG/2 ML AMP ONE
--- NOTE | 2018-03-23 08:52 | Progress Note-Pre Operative ---
Pre-Operative Progress Note H&P Reviewed The H&P was reviewed, patient examined and no changes noted. Time Seen by Provider: 08:00 Date H&P Reviewed: Mar 23, 2018 Time H&P Reviewed: 08:50 Pre-Operative Diagnosis: ILD TANMAY MAI DO Mar 23, 2018 08:52
--- NOTE | 2018-03-23 08:53 | Pre-Op Note & Conscious Sedat ---
Pre-Operative Progress Note H&P Reviewed The H&P was reviewed, patient examined and no changes noted. Date H&P Reviewed: Mar 23, 2018 Time H&P Reviewed: 08:52 Conscious Sedation Pre-Proced Time 08:50 ASA Score 3 For ASA 3 and 4: Consider anesthesia and medical clearance. Also, for patients with a history of failed moderate sedation consider anesthesia. Airway Lungs Heart ASA score ASA 1: a normal healthy patient ASA 2: a patient with a mild systemic disease (mid diabetes, controlled hypertension, obesity ASA 3: a patient with a severe systemic disease that limits activity (angina , COPD, prior Myocardial infarction) ASA 4: a patient with an incapacitating disease that is a constant threat to life (CHF, renal failure) ASA 5: a moribund patient not expected to survive 24 hrs. (ruptured aneurysm) ASA 6: a declared brain patient whose organs are being harvested. For emergent operations, add the letter E after the classification Mallampati Classification Grade 3 Sedation Plan Analgesia, Amnesia, Plan communicated to team members, Discussed options with patient/fam, Discussed risks with patient/fam The patient is an appropriate candidate to undergo the planned procedure, sedation, and anesthesia. The patient immediately re-assessed prior to indication. TANMAY MAI DO Mar 23, 2018 08:53
--- NOTE | 2018-03-23 08:57 | Pulmonary Procedures ---
Pulmonary Procedures Date of Procedure Date of Service: Mar 23, 2018 Bronch Bronchoscopy with fluoroscopy Percepta brush, bronchoalveolar lavage (BAL), transbronchial washes and, brushes. Preop DX ILD Postop DX: same, No endobronchial lesions Complications: none After informed consent obtained and formal time out pt was sedated using Fentanyl and Versed. Bronchoscope was advanced through the nare and vocal cords. 1% lidocaine was used to anesthetize vocal cords, epiglottis, jorge alberto, and left/right main stem bronchus. An anatomical tour was undertaken down to the segmental bronchi bilaterally. No endobronchial lesions noted. From the RML a bronchoalveolar lavage (BAL), transbronchial washes and, brushes were obtained. Pt tolerated procedure well. No complications noted. Stat CXR is pending. TANMAY MAI DO Mar 23, 2018 08:57
--- NOTE | 2018-03-23 09:49 | Diagnostic Imaging Report ---
Clinical indication: Patient is post bronchoscopy. Exam: Portable chest x-ray upright view. Comparison: Chest x-ray dated 03/07/2018. Findings: Stable cardiomegaly with no significant pulmonary vascular congestion. There is no pleural effusion or pneumothorax. There is mild to moderate interval increased airspace opacification involving both lung bases (right side more than the left). Otherwise, the remainder of the lungs are clear. Bones show no significant interval abnormality. Stable old healed left rib fractures are seen. Impression: 1: There is interval development of mild to moderate airspace opacification involving both lung bases (right side more than the left) which may represent atelectasis, but superimposed infiltrates can't be completely excluded. 2: Stable cardiomegaly with no significant pulmonary vascular congestion. Dictated by: Dictated on workstation # [id number]
[2018-03-23 10:10] VITALS: BP 182/108
[2018-03-23 10:25] VITALS: BP 182/108
--- NOTE | 2018-03-23 11:10 | Diagnostic Imaging Report ---
Clinical indication: Patient with history of interstitial lung changes. Bronchoscopy. Exam: There is a total of 8 limited intraoperative x-rays of the chest. Comparison: Chest x-ray dated 03/23/2018. Findings and impression: Multiple images show bronchoscopy with sampling. Please see clinician's report for more detail. Fluoroscopy was provided for clinician and a total of 11.1 seconds and 0.264 mGy was provided. Dictated by: Dictated on workstation # [id number]
--- OUTSIDE RECORDS SUMMARY | 2018-03-23 14:06 | XMS REPORT | Continuity of Care Document ---
Author Author [facility] Organization [facility] Address Unknown Phone Unavailable Allergies Active Description Code Type Severity Reaction Onset Reported/Identified Relationship to Patient Clinical Status Yes sulfa drugs NKMA N/A [id number] 12/07/2013 Medications There is no data. Problems There is no data. Procedures There is no data. Results There is no data. Encounters ACCT No. Visit Date/Time Discharge Status Pt. Type Provider Facility Loc./Unit Complaint [id number] 05/07/2014 14:50:00 05/07/2014 23:59:00 DIS Outpatient Sondra Grant [facility] results
--- OUTSIDE RECORDS SUMMARY | 2018-03-23 14:06 | XMS REPORT | Referral Summary ---
Author Organization Unknown Address Unknown Phone Unavailable Care Team Providers Care [place] Assessor Name Role Phone Lew Villalba PCP Encounter [facility] [id number] Date(s): 05/07/14 - 05/07/14 [facility] [address] [place] [address] Discharge Diagnosis: Abdominal bloating Discharge Diagnosis: Renal cyst Discharge Diagnosis: PVD (peripheral vascular disease) Discharge Disposition: Home or Self Care Attending Physician: Sondra Grant Admitting Physician: Sondra Grant Vital Signs Most recent to 1 oldest [Reference Range]: Peripheral Pulse 86 bpm Rate [60-100 bpm] (05/07/14 3:44 PM) Blood Pressure 152/88 mmHg [90-140/60-90 mmHg] *HI* (05/07/14 3:44 PM) Problem List Condition Effective Dates Status Health Status Informant Abdominal Active bloating(Confirmed) PVD (peripheral Active vascular disease)(Confirmed) Renal Active cyst(Confirmed) Bloating(Confirmed) Active Allergies, Adverse Reactions, Alerts Substance Reaction Severity Status sulfa drugs Hives Active Medications Amlodipine besylate Amlodipine besylate, 10 mg, Oral, Daily, 0 Refill(s) Start Date: 10/25/13 Status: Ordered aspirin 81 mg, Oral, Daily, 0 Refill(s) Start Date: 10/25/13 Status: Ordered atenolol 50 mg oral tablet 0.5 tabs, Oral, Daily, 0 Refill(s) Start Date: 10/25/13 Status: Ordered atorvastatin 40 mg oral tablet 0.5 tabs, Oral, Bedtime (once a day), 0 Refill(s) Start Date: 10/25/13 Status: Ordered hydrochlorothiazide 25 mg, Oral, Daily, 0 Refill(s) Start Date: 10/25/13 Status: Ordered losartan 100 mg oral tablet 1 tabs, Oral, Daily, 0 Refill(s) Start Date: 10/25/13 Status: Ordered Metamucil Original Texture Regular 3.4 g, Oral, Daily, 0 Refill(s) Start Date: 01/10/14 Status: Ordered omeprazole 20 mg oral delayed release tablet 1 tabs, Oral, Daily, 0 Refill(s) Start Date: 10/25/13 Status: Ordered Results No data available for this section Immunizations No data available for this section Procedures Procedure Date Related Diagnosis Body Site colonoscopy 12/07/13 EGD 12/07/13 Symptomatic carotid stenosis: Ipsilateral carotid territory TIA or stroke less than 120 days prior to procedure (NMA-No Measure Associated)1 1left carotid CEA Social History Social History Type Response Smoking Status Current every day smoker; Type: Cigarettes; Tobacco use per day: 2 packs daily Assessment and Plan Extracted from: Title: Ambulatory Patient Education Author: Sondra Grant Date: 05/07 Family Medicine Peripheral Vascular Disease Peripheral vascular disease (PVD) is caused by cholesterol buildup in the arteries. The arteries become narrow or clogged. This makes it hard for blood to flow. It happens most in the legs, but it can occur in other areas of your body. HOME CARE Quit smoking, if you smoke. Exercise as told by your doctor. Follow a low-fat, low-cholesterol diet as told by your doctor. Control your diabetes, if you have diabetes. Care for your feet to prevent infection. Only take medicine as told by your doctor. GET HELP RIGHT AWAY IF: You have pain or lose feeling (numbness ) in your arms or legs. Your arms or legs turn cold or blue. You have redness, warmth, and puffiness (swelling ) in your arms or legs. MAKE SURE YOU: Understand these instructions. Will watch your condition. Will get help right away if you are not doing well or get worse. Document Released: 07/06/2010 Document Revised: 07/03/2012 Document Reviewed: [employer] Patient Information 2014 [employer]. No follow up information was provided. Future Scheduled TestsReferral* Return to Clinic 01/11/14 9:25 AM Referrals to Other Providers Referred by: Sondra Faustin
== END | disposition home or self-care (01) ==
LOC: ENDO 07:13
PROVIDERS: ATTEND Internal Medicine Critical Care Medicine
DX: J84.9 Interstitial pulmonary disease, unspecified (principal); J44.9 Chronic obstructive pulmonary disease, unspecified; J90 Pleural effusion, not elsewhere classified; G47.33 Obstructive sleep apnea (adult) (pediatric); R91.8 Other nonspecific abnormal finding of lung field; I50.31 Acute diastolic (congestive) heart failure; I25.10 Atherosclerotic heart disease of native coronary artery without angina pectoris; Z72.0 Tobacco use; Z79.82 Long term (current) use of aspirin; Z79.899 Other long term (current) drug therapy
CPT/HCPCS: 71045; 87015; 87070; 87101; 87116; 87205; 87206; 94640

== ENCOUNTER 2018-07-04 10:00 | Outpatient (RCR) | payer MEDICARE, OTHER ==
[2018-04-10 09:37] VITALS: BP 150/60
--- NOTE | 2018-04-10 12:34 | Pulmonary Rehab Eval/Txmt Plan ---
Pulmonary Rehab Treatment Plan Treatment P Treatment Periord: Initial Diagnosis Diagnosis: INTERSTITIAL LUNG DISEASE Date: Apr 10, 2018 Barriers to Learning Barriers: None Assessment/Problems Exercise: Deconditioning, Decreased Exer Tolerance, No Regular Exercise, Sedentary Type: AEROBIC Frequency: 2 X WEEK Duration: 1 HR CLASS, EXERCISE PER PTS TOLERANCE Barriers to Exercise: NONE Initial MET Level: 2 Aerobic Exercise/Goals Freq: time per week minus RI: 2 MET Level=: 2 Type: Arm Ergometry, Bike, Scifi/Nustep, Treadmill MICHELA ANDREWS DO Apr 10, 2018 12:34
[2018-05-16 10:00] VITALS: BP 140/90
[2018-05-16 10:51] VITALS: BP 159/90
[2018-05-18 10:00] VITALS: BP 121/50
[2018-05-18 11:00] VITALS: BP 130/60
[2018-05-23 10:00] VITALS: BP 160/80
[2018-05-25 10:00] VITALS: BP 160/60
[2018-05-25 11:00] VITALS: BP 130/50
[2018-05-30 10:00] VITALS: BP 150/96
[2018-05-30 11:00] VITALS: BP 146/90
[2018-06-06 09:55] VITALS: BP 140/82
[2018-06-06 11:02] VITALS: BP 150/60
[2018-06-13 09:50] VITALS: BP 160/60
[2018-06-13 10:40] VITALS: BP 140/52
[2018-06-15 09:58] VITALS: BP 160/70
[2018-06-15 10:55] VITALS: BP 150/85
[2018-06-20 08:47] VITALS: BP 150/78
[2018-06-20 11:00] VITALS: BP 138/50
[2018-06-22 09:57] VITALS: BP 145/80
[2018-06-22 10:40] VITALS: BP 123/80
[2018-06-29 10:00] VITALS: BP 180/60
[2018-06-29 11:00] VITALS: BP 170/70
[~2018-07-04] VITALS: Ht 182.9 cm; Wt 92.1 kg
[2018-07-04 10:00] VITALS: BP 130/72
[~2018-07-04 10:00] MED LIST changes: -AMLO10TA6 PO; +AMLO10TA7 PO; -FLUMAZENIL (ROMAZICON) 0.1 MG/ML 5 ML VIAL INJ PRN; -LIDOCAINE JELLY 2% (XYLOCAINE) 30 ML TUBE TOP ONE; -LIDOCAINE PF 1% 2 ML AMP IJ ONE; -LIDOCAINE PF 2% 5 ML (XYLOCAINE) VIAL INJ ONE; +LOSA100T57 PO; -LOSA100T8 PO; -MIDAZOLAM 2 MG/2 ML (VERSED) VIAL IVP ONE; -MIDAZOLAM 2 MG/2 ML (VERSED) VIAL ONE; -NALOXONE 0.4 MG/ML 1 ML (NARCAN) VIAL IVP PRN; -NS IV 500 ML 500 ML IV PRN; -NS IV 500 ML 500 ML ONE; -fentaNYL INJECTION 100 MCG/2 ML AMP IVP ONE; -fentaNYL INJECTION 100 MCG/2 ML AMP ONE
[2018-07-04 11:00] VITALS: BP 118/60
[2018-07-06 09:55] VITALS: BP 170/50
[2018-07-06 10:58] VITALS: BP 160/40
== END 2018-07-09 | disposition home or self-care (01) ==
LOC: PULM 10:00
PROVIDERS: ATTEND Nurse Practitioner Family
DX: J84.9 Interstitial pulmonary disease, unspecified (principal); J44.9 Chronic obstructive pulmonary disease, unspecified; Z72.0 Tobacco use

== ENCOUNTER → 2018-08-30 | Outpatient (CLI) | payer MEDICARE, OTHER ==
[2018-08-30 10:07] LABS: BASOPHILS % (AUTO) 1 % (0-10); EOSINOPHILS # (AUTO) 0.2 10^3/uL (0.0-0.3); EOSINOPHILS % (AUTO) 3 % (0-10); HEMATOCRIT 41 % (40-54); HEMOGLOBIN 14.1 G/DL (13.3-17.7); LYMPHOCYTES # (AUTO) 1.1 X 10^3 (1.0-4.0); LYMPHOCYTES % (AUTO) 21 % (12-44); MEAN CORPUSCULAR HEMOGLOBIN 38 PG (25-34); MEAN CORPUSCULAR HGB CONC 35 G/DL (32-36); MEAN CORPUSCULAR VOLUME 109 FL (80-99); MEAN PLATELET VOLUME 11.1 FL (7.4-10.4); MONOCYTES # (AUTO) 0.7 X 10^3 (0.0-1.0); MONOCYTES % (AUTO) 13 % (0-12); NEUTROPHILS # (AUTO) 3.4 X 10^3 (1.8-7.8); NEUTROPHILS % (AUTO) 63 % (42-75); PLATELET COUNT 110 10^3/uL (130-400); RED CELL DISTRIBUTION WIDTH 17.1 % (10.0-14.5); WHITE BLOOD COUNT 5.4 10^3/uL (4.3-11.0)
[2018-08-30 10:24] LABS: ALANINE AMINOTRANSFERASE 35 U/L (0-55); ALBUMIN 3.6 GM/DL (3.2-4.5); ALKALINE PHOSPHATASE 117 U/L (40-136); AMMONIA 26 UMOL/L (11-32); BILIRUBIN,TOTAL 2.1 MG/DL (0.1-1.0); BUN/CREATININE RATIO 7; CALCIUM 9.3 MG/DL (8.5-10.1); CARBON DIOXIDE 27 MMOL/L (21-32); CHLORIDE 100 MMOL/L (98-107); GFR ESTIMATED > 60; GLUCOSE 119 MG/DL (70-105); POTASSIUM 4.2 MMOL/L (3.6-5.0); SODIUM 137 MMOL/L (135-145); TOTAL PROTEIN 6.7 GM/DL (6.4-8.2)
[2018-08-30 10:28] LABS: ABG BASE EXCESS 1.5 MMOL/L (-2.5-2.5); ABG OXYGEN SATURATION 99 % (94-100); ABG PCO2 37 MMHG (35-45); ABG PH 7.44 (7.37-7.43); ABG PO2 104 MMHG (79-93); ABG TCO2 26.6 MMOL/L (21.0-31.0)
[2018-08-30 10:31] LABS: ALLENS TEST YES-POS; INSPIRED O2 2; PATIENT TEMP 97.1; VENTILATOR NO
== END ==
LOC: RT 09:53
PROVIDERS: ATTEND Internal Medicine
DX: R53.1 Weakness (principal); J44.9 Chronic obstructive pulmonary disease, unspecified; R41.82 Altered mental status, unspecified
CPT/HCPCS: 36415; 36600; 80053; 82140; 82805; 85025

== ENCOUNTER 2018-09-07 10:00 | Outpatient (RCR) | payer MEDICARE, OTHER ==
[2018-07-13 10:00] VITALS: BP 152/60
[2018-07-13 11:00] VITALS: BP 150/60
[2018-07-25 10:00] VITALS: BP 120/80
[2018-07-25 11:00] VITALS: BP 130/60
[2018-07-27 10:00] VITALS: BP 160/60
[2018-07-27 10:55] VITALS: BP 130/60
[2018-08-01 10:00] VITALS: BP 160/60
[2018-08-01 10:40] VITALS: BP 123/60
[2018-08-03 10:00] VITALS: BP 160/70
[2018-08-03 11:00] VITALS: BP 130/87
[2018-08-08 10:00] VITALS: BP 130/60
[2018-08-08 10:59] VITALS: BP 138/60
[2018-08-10 10:00] VITALS: BP 140/80
[2018-08-10 11:00] VITALS: BP 150/50
[2018-08-15 09:55] VITALS: BP 160/50
[2018-08-15 10:52] VITALS: BP 153/60
[2018-08-17 10:00] VITALS: BP 130/60
[2018-08-17 10:49] VITALS: BP 120/60
[2018-08-22 10:00] VITALS: BP 140/60
[2018-08-22 11:00] VITALS: BP 148/60
[2018-08-24 10:00] VITALS: BP 140/60
[2018-08-24 10:51] VITALS: BP 150/60
[2018-09-05 10:00] VITALS: BP 130/68
[2018-09-05 10:50] VITALS: BP 128/70
[2018-09-07 10:00] VITALS: BP 147/82
[2018-09-07 10:44] VITALS: BP 150/50
[2018-09-19] MEDS ORDERED: TIOT4MIS2 IH (07:54)
[2018-09-19] MEDS ORDERED: DEXT1DRO7 OP (07:54)
[2018-09-19] MEDS ORDERED: POTA10CA43 PO (07:54)
[2018-09-19] MEDS ORDERED: METO-395 PO (07:54)
[2018-09-19] MEDS ORDERED: RT-ALBUINH IH (07:54)
[2018-09-19] MEDS ORDERED: ASPI-586 PO (07:54)
[2018-09-19] MEDS ORDERED: ASPI-999 PO (09:43)
== END 2018-10-25 | disposition home or self-care (01) ==
LOC: PULM 10:00
PROVIDERS: ATTEND Nurse Practitioner Family
DX: J84.9 Interstitial pulmonary disease, unspecified (principal); J44.9 Chronic obstructive pulmonary disease, unspecified; Z72.0 Tobacco use

== ENCOUNTER 2018-09-28 15:45 | Outpatient (CLI) | payer MEDICARE, OTHER ==
[~2018-09-28] VITALS: Ht 182.9 cm; Wt 88.0 kg
[~2018-09-28 15:45] MED LIST changes: +ASPI-586 PO; +ASPI-999 PO; +DEXT1DRO7 OP; +POTA10CA43 PO; +TIOT4MIS2 IH
== END 2018-09-28 16:07 | disposition home or self-care (01) ==
LOC: PREOP 15:45
PROVIDERS: ATTEND Internal Medicine
DX: Z01.818 Encounter for other preprocedural examination (principal)

== ENCOUNTER 2018-09-29 07:16 | Day surgery (SDC) | payer MEDICARE, OTHER ==
--- NOTE | 2018-09-27 15:40 | HISTORY AND PHYSICAL ---
DATE OF SERVICE: EGD HISTORY AND PHYSICAL HISTORY OF PRESENT ILLNESS: The patient is 73-year-old white male, who reports a 2-week history of nausea and vomiting as well as diarrhea. He has had postprandial nausea with intermittent vomiting, denying coffee ground emesis or bright red blood. He denies melena or bright red blood per rectum. He believes his weight is down about 5 to 10 pounds and by our scales he is down 10 pounds over the past month. He has had no night sweats, chills or fever. He has epigastric discomfort aggravated postprandially. He has some epigastric bloating following food or fluid intake. Denies lower intestinal cramping or bloating. He denies any radiation of his pain. He has had no antibiotic exposure that he recalls for more than four or five months. Three months ago, he did have an orthopedic procedure and is not sure whether or not he received any antibiotics while in the hospital, but he was not discharged on any antibiotics. 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 He underwent cardiac catheterization last week and had an episode of incontinence after the procedure. He reports no changes were made in his medication with no new disease being appreciated. He has a history of hypertension as well as alcohol use disorder with persistent liver function test elevation. He has had minimal alcohol intake over the past 2 or 3 weeks. He has been on aspirin and Plavix and takes omeprazole 20 mg daily. He was seen in the emergency room on the . Evaluation just involved blood tests. He did not have significant anemia. His white count was normal. Platelet count was normal. Hematocrit was 41% with a white count of 8.5 thousand, hemoglobin of 14.9, platelet count is 173,000. His basic metabolic panel revealed no abnormalities. His AST was 55 and ALT was 28 and alkaline phosphatase of 121 and total bilirubin of 1.2. PAST SURGICAL HISTORY: Significant for previous cholecystectomy. PHYSICAL EXAMINATION: GENERAL: Reveals a chronically ill-appearing white male appearing to be in mild distress. VITAL SIGNS: Blood pressure 128/60, weight 189 pounds, was down 9.4 pounds from one month ago. HEENT: Sclerae were nonicteric. NECK: Revealed no JVD, adenopathy or bruits. CHEST: Clear to auscultation. CARDIOVASCULAR: Regular rate and rhythm without murmur, S3 or S4. ABDOMEN: Soft, supple, nondistended. There is some mild epigastric discomfort to palpation without rebound or guarding. No mass or organomegaly is noted. Bowel sounds are positive. EXTREMITIES: Reveal no cyanosis, clubbing or edema. ASSESSMENT AND PLAN: For further evaluation of nausea and vomiting with epigastric pain, the patient was set up for EGD on 09/29/2018. He was advised to discontinue aspirin and Plavix and increase omeprazole to 20 mg b.i.d. Lomotil in addition to Zofran were given with instructions. Job ID: [id number] DocumentID: [id number] Dictated Date: 09/26/2018 20:23:59 Food Consultant Date: 09/26/2018 20:46:19 Dictated By: ELMER FLOREZ MD
[~2018-09-29] VITALS: Ht 182.9 cm; Wt 88.0 kg
[2018-09-29] MEDS ORDERED: D5 LR IV SOLUTION 1,000 ML IV ONE (07:30)
[2018-09-29] MEDS ORDERED: D5 LR IV SOLUTION 1,000 ML IV STA (07:40)
[2018-09-29] MEDS ORDERED: LIDOCAINE JELLY 2% 6 ML SYRINGE ONE (07:42)
[2018-09-29] MEDS ORDERED: MIDAZOLAM 2 MG/2 ML (VERSED) VIAL ONE ×3 (07:43→08:39)
[2018-09-29] MEDS ORDERED: HURRICAINE EXT TUBE (BENZOCAINE) ONE (07:43)
[2018-09-29] MEDS ORDERED: fentaNYL INJECTION 100 MCG/2 ML AMP ONE (07:43)
[2018-09-29 07:45] VITALS: BP 145/73
[2018-09-29] MEDS ORDERED: LIDOCAINE JELLY 2% 6 ML SYRINGE MM PRN (07:45)
[2018-09-29] MEDS ORDERED: fentaNYL INJECTION 100 MCG/2 ML AMP IVP ONE (07:45)
[2018-09-29] MEDS ORDERED: MIDAZOLAM 2 MG/2 ML (VERSED) VIAL IVP ONE (07:45)
[2018-09-29] MEDS ORDERED: HURRICAINE EXT TUBE (BENZOCAINE) XX PRN (07:45)
--- NOTE | 2018-09-29 07:56 | Pre-Op Note & Conscious Sedat ---
Pre-Operative Progress Note H&P Reviewed The H&P was reviewed, patient examined and no changes noted. Date H&P Reviewed: Sep 29, 2018 Time H&P Reviewed: 07:56 Conscious Sedation Pre-Proced ASA Score 3 For ASA 3 and 4: Consider anesthesia and medical clearance. Also, for patients with a history of failed moderate sedation consider anesthesia. Airway Lungs Heart ASA score ASA 1: a normal healthy patient ASA 2: a patient with a mild systemic disease (mid diabetes, controlled hypertension, obesity ASA 3: a patient with a severe systemic disease that limits activity (angina, COPD, prior Myocardial infarction) ASA 4: a patient with an incapacitating disease that is a constant threat to life (CHF, renal failure) ASA 5: a moribund patient not expected to survive 24 hrs. (ruptured aneurysm) ASA 6: a declared brain- patient whose organs are being harvested. For emergent operations, add the letter E after the classification Mallampati Classification Grade 2 Sedation Plan Analgesia, Amnesia, Plan communicated to team members, Discussed options with patient/fam, Discussed risks with patient/fam The patient is an appropriate candidate to undergo the planned procedure, sedation, and anesthesia. The patient immediately re-assessed prior to indication. ELMER FLOREZ MD Sep 29, 2018 07:56
[2018-09-29 09:25] VITALS: BP 105/56
[2018-09-29 09:55] VITALS: BP 138/89
[2018-09-29 10:02] VITALS: BP 138/89
--- OUTSIDE RECORDS SUMMARY | 2018-09-29 12:26 | XMS REPORT | Continuity of Care Document ---
Author Organization Unknown Address Unknown Allergies Active Description Code Type Severity Reaction Onset Reported/Identified Relationship to Patient Clinical Status Yes sulfa drugs NKMA N/A [id number] 12/07/2013 Yes No Known Drug Allergies [id number] Drug Allergy Unknown N/A 11/04/2015 Yes meperidine [id number] Drug Allergy Unknown N/A 05/18/2016 Yes Sulfa (Sulfonamide Antibiotics) [id number] Drug Allergy Unknown N/A 05/18/2016 Medications There is no data. Problems Date Dx Coded Attending Type Code Diagnosis Diagnosed By 11/04/2015 BARNEY KINSEY CHEMICAL LIBRARIAN Ot I25.10 ATHSCL HEART DISEASE OF [place] CORONARY 11/05/2015 BARNEY KINSEY CHEMICAL LIBRARIAN Ot I25.10 ATHSCL HEART DISEASE OF [place] CORONARY 11/05/2015 BARNEY KINSEY CHEMICAL LIBRARIAN Ot E78.5 HYPERLIPIDEMIA, UNSPECIFIED 11/05/2015 BARNEY KINSEY L CHEMICAL LIBRARIAN Ot I10 ESSENTIAL (PRIMARY) HYPERTENSION 11/05/2015 BARNEY KINSEY CHEMICAL LIBRARIAN Ot I25.10 ATHSCL HEART DISEASE OF [place] CORONARY 11/05/2015 BARNEY KINSEY CHEMICAL LIBRARIAN Ot I51.7 CARDIOMEGALY 11/05/2015 BARNEY KINSEY CHEMICAL LIBRARIAN Ot I73.9 PERIPHERAL VASCULAR DISEASE, UNSPECIFIED 11/05/2015 BARNEY KINSEY CHEMICAL LIBRARIAN Ot I77.9 DISORDER OF ARTERIES AND ARTERIOLES, UNS 11/05/2015 BARNEY KINSEY CHEMICAL LIBRARIAN Ot J43.9 EMPHYSEMA, UNSPECIFIED 11/05/2015 BARNEY KINSEY CHEMICAL LIBRARIAN Ot R94.31 ABNORMAL ELECTROCARDIOGRAM [ECG] [EKG] 11/05/2015 BARNEY KINSEY CHEMICAL LIBRARIAN Ot Z72.0 TOBACCO USE 12/09/2015 BARNEY KINSEY CHEMICAL LIBRARIAN Ot E78.5 HYPERLIPIDEMIA, UNSPECIFIED 12/09/2015 BAIMA, BARNEY L CHEMICAL LIBRARIAN Ot I10 ESSENTIAL (PRIMARY) HYPERTENSION 12/09/2015 BARNEY KINSEY L CHEMICAL LIBRARIAN Ot I25.10 ATHSCL HEART DISEASE OF [place] CORONARY 12/09/2015 BARNEY KINSEY L CHEMICAL LIBRARIAN Ot I51.7 CARDIOMEGALY 12/09/2015 BARNEY KINSEY L CHEMICAL LIBRARIAN Ot I73.9 PERIPHERAL VASCULAR DISEASE, UNSPECIFIED 12/09/2015 BARNEY KINSEY L CHEMICAL LIBRARIAN Ot I77.9 DISORDER OF ARTERIES AND ARTERIOLES, UNS 12/09/2015 BAIBARNEY BROWN L CHEMICAL LIBRARIAN Ot J43.9 EMPHYSEMA, UNSPECIFIED 12/09/2015 BAIMABARNEY L CHEMICAL LIBRARIAN Ot R94.31 ABNORMAL ELECTROCARDIOGRAM [ECG] [EKG] 12/09/2015 BARNEY KINSEY L CHEMICAL LIBRARIAN Ot Z72.0 TOBACCO USE 12/12/2015 BARNEY KINSEY L CHEMICAL LIBRARIAN Ot E78.5 HYPERLIPIDEMIA, UNSPECIFIED 12/12/2015 BAIBARNEY BROWN L CHEMICAL LIBRARIAN Ot I10 ESSENTIAL (PRIMARY) HYPERTENSION 12/12/2015 BARNEY KINSEY L CHEMICAL LIBRARIAN Ot I25.10 ATHSCL HEART DISEASE OF [place] CORONARY 12/12/2015 BARNEY KINSEY L CHEMICAL LIBRARIAN Ot I51.7 CARDIOMEGALY 12/12/2015 BARNEY KINSEY L CHEMICAL LIBRARIAN Ot I73.9 PERIPHERAL VASCULAR DISEASE, UNSPECIFIED 12/12/2015 BAIBARNEY BROWN L CHEMICAL LIBRARIAN Ot I77.9 DISORDER OF ARTERIES AND ARTERIOLES, UNS 12/12/2015 BARNEY KINSEY L CHEMICAL LIBRARIAN Ot J43.9 EMPHYSEMA, UNSPECIFIED 12/12/2015 BAIBARNEY BROWN L CHEMICAL LIBRARIAN Ot R94.31 ABNORMAL ELECTROCARDIOGRAM [ECG] [EKG] 12/12/2015 ARJUNBARNEY BROWN L CHEMICAL LIBRARIAN Ot Z72.0 TOBACCO USE 05/10/2016 IJEOMA CULLEN FACC, ALI FACP CCDS Ot I50.31 ACUTE DIASTOLIC (CONGESTIVE) HEART FAILU 05/10/2016 IJEOMA CULLEN FACC, ALI FACP CCDS Ot Z72.0 TOBACCO USE 05/10/2016 IJEOMA CULLEN FACC, DAGO FACP CCDS Ot I50.31 ACUTE DIASTOLIC (CONGESTIVE) HEART FAILU 05/10/2016 IJEOMA CULLEN FACC, ALI FACP CCDS Ot Z72.0 TOBACCO USE 05/11/2016 IJEOMA CULLEN FACC, ALI FACP CCDS Ot I50.31 ACUTE DIASTOLIC (CONGESTIVE) HEART FAILU 05/11/2016 IJEOMA CULLEN FACC, DAGO FACP CCDS Ot Z72.0 TOBACCO USE 05/12/2016 BARNEY KINSEY CHEMICAL LIBRARIAN Ot E78.5 HYPERLIPIDEMIA, UNSPECIFIED 05/12/2016 ARJUNBARNEY BROWN CHEMICAL LIBRARIAN Ot I10 ESSENTIAL (PRIMARY) HYPERTENSION 05/12/2016 ARJUNBARNEY BROWN CHEMICAL LIBRARIAN Ot I25.10 ATHSCL HEART DISEASE OF [place] CORONARY 05/12/2016 ARJUNBARNEY BROWN CHEMICAL LIBRARIAN Ot I51.7 CARDIOMEGALY 05/12/2016 ARJUNBARNEY BROWN CHEMICAL LIBRARIAN Ot I73.9 PERIPHERAL VASCULAR DISEASE, UNSPECIFIED 05/12/2016 BARNEY KINSEY CHEMICAL LIBRARIAN Ot I77.9 DISORDER OF ARTERIES AND ARTERIOLES, UNS 05/12/2016 ARJUNBARNEY BROWN CHEMICAL LIBRARIAN Ot J43.9 EMPHYSEMA, UNSPECIFIED 05/12/2016 ARJUNBARNEY BROWN CHEMICAL LIBRARIAN Ot R94.31 ABNORMAL ELECTROCARDIOGRAM [ECG] [EKG] 05/12/2016 ARJUNBARNEY BROWN CHEMICAL LIBRARIAN Ot Z72.0 TOBACCO USE 05/12/2016 IJEOMA CULLEN FACC, DAGO FACP CCDS Ot I50.31 ACUTE DIASTOLIC (CONGESTIVE) HEART FAILU 05/13/2016 IJEOMA CULLEN FACC, DAGO FACP CCDS Ot I11.0 HYPERTENSIVE HEART DISEASE WITH HEART FA 05/13/2016 DAGO RAPHAEL MD, FACC FACP CCDS Ot I50.31 ACUTE DIASTOLIC (CONGESTIVE) HEART FAILU 05/13/2016 DAGO RAPHAEL MD, FACC FACP CCDS Ot J43.8 OTHER EMPHYSEMA 05/13/2016 IJEOMA CULLEN FACC, ALI FACP CCDS Ot Z72.0 TOBACCO USE 05/14/2016 IJEOMA CULLEN FACC, ALI FACP CCDS Ot I73.9 PERIPHERAL VASCULAR DISEASE, UNSPECIFIED 05/14/2016 IJEOMA CULLEN FACC, ALI FACP CCDS Ot I73.9 PERIPHERAL VASCULAR DISEASE, UNSPECIFIED 05/18/2016 IJEOMA CULLEN FACC, ALI FACP CCDS Ot I11.0 HYPERTENSIVE HEART DISEASE WITH HEART FA 05/18/2016 DAGO RAPHAEL MD, FACC FACP CCDS Ot I50.31 ACUTE DIASTOLIC (CONGESTIVE) HEART FAILU 05/18/2016 DAGO RAPHAEL MD, FACC FACP CCDS Ot J43.8 OTHER EMPHYSEMA 05/18/2016 IJEOMA CULLEN FACC, ALI FACP CCDS Ot Z72.0 TOBACCO USE 05/18/2016 IJEOMA CULLEN FACC, ALI FACP CCDS Ot I50.31 ACUTE DIASTOLIC (CONGESTIVE) HEART FAILU 05/18/2016 IJEOMA CULLEN FACC, ALI FACP CCDS Ot I73.9 PERIPHERAL VASCULAR DISEASE, UNSPECIFIED 05/19/2016 IJEOMA CULLEN FACC, ALI FACP CCDS Ot I25.10 ATHSCL HEART DISEASE OF [place] CORONARY 05/19/2016 IJEOMA CULLEN FACC, ALI FACP CCDS Ot 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 [place] 05/19/2016 IJEOMA CULLEN FACC, DAGO FACP CCDS Ot I50.9 HEART FAILURE, UNSPECIFIED 05/19/2016 IJEOMA CULLEN FACC, ALI FACP CCDS Ot I70.0 ATHEROSCLEROSIS OF [place] 05/19/2016 IJEOMA CULLEN FACC, DAGO FACP CCDS Ot J44.9 CHRONIC OBSTRUCTIVE PULMONARY DISEASE, U 05/19/2016 IJEOMA CULLEN FACC, DAGO FACP CCDS Ot Z72.0 TOBACCO USE 05/19/2016 IJEOMA CULLEN FACC, ALI FACP CCDS Ot Z79.899 OTHER SENIOR CARE (CURRENT) DRUG THERAPY 05/19/2016 IJEOMA CULLEN FACC, DAGO FACP CCDS Ot Z95.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 05/20/2016 IJEOMA CULLEN FACC, DAGO FACP CCDS Ot I73.9 PERIPHERAL VASCULAR DISEASE, UNSPECIFIED 05/26/2016 IJEOMA CULLEN FACC, DAGO FACP CCDS Ot I10 ESSENTIAL (PRIMARY) HYPERTENSION 05/26/2016 IJEOMA CULLEN FACC, ALI FACP CCDS Ot I50.31 ACUTE DIASTOLIC (CONGESTIVE) HEART FAILU 05/26/2016 IJEOMA CULLEN FACC, ALI FACP CCDS Ot I73.9 PERIPHERAL VASCULAR DISEASE, UNSPECIFIED 05/26/2016 IJEOMA CULLEN FACC, ALI FACP CCDS Ot J43.8 OTHER EMPHYSEMA 05/26/2016 IJEOMA CULLEN FACC, ALI FACP CCDS Ot Z72.0 TOBACCO USE 06/08/2016 IJEOMA CULLEN FACC, ALI FACP CCDS Ot I11.0 HYPERTENSIVE HEART DISEASE WITH HEART FA 06/08/2016 IJEOMA CULLEN FACC, ALI FACP CCDS Ot I50.31 ACUTE DIASTOLIC (CONGESTIVE) HEART FAILU 06/08/2016 IJEOMA CULLEN FACC, ALI FACP CCDS Ot J43.8 OTHER EMPHYSEMA 06/08/2016 IJEOMA CULLEN FACC, ALI FACP CCDS Ot Z72.0 TOBACCO USE 06/08/2016 TIO BARNEY Marks CHEMICAL LIBRARIAN Ot E83.42 HYPOMAGNESEMIA 06/08/2016 TIOBARNEY Selina CHEMICAL LIBRARIAN Ot E87.6 HYPOKALEMIA 06/08/2016 TANMAY MAI DO Ot G47.9 SLEEP DISORDER, UNSPECIFIED 06/08/2016 TANMAY MAI DO Ot I50.31 ACUTE DIASTOLIC (CONGESTIVE) HEART FAILU 06/08/2016 TANMAY MAI DO Ot J43.8 OTHER EMPHYSEMA 06/08/2016 TANMAY MAI DO Ot R06.83 SNORING 06/08/2016 TANMAY MAI DO Ot Z72.0 TOBACCO USE 06/10/2016 IJEOMA CULLEN FACC, DAGO FACP CCDS Ot I11.0 HYPERTENSIVE HEART DISEASE WITH HEART FA 06/10/2016 IJEOMA CULLEN FACC, ALI FACP CCDS Ot I50.31 ACUTE DIASTOLIC (CONGESTIVE) HEART FAILU 06/10/2016 IJEOMA CULLEN FACC, DAGO FACP CCDS Ot J43.8 OTHER EMPHYSEMA 06/10/2016 IJEOMA CULLEN FACC, ALI FACP CCDS Ot Z72.0 TOBACCO USE 06/15/2016 BARNEY KINSEY CHEMICAL LIBRARIAN Ot E87.6 HYPOKALEMIA 06/15/2016 BARNEY KINSEY CHEMICAL LIBRARIAN Ot I10 ESSENTIAL (PRIMARY) HYPERTENSION 06/15/2016 IJEOMA CULLEN FACC, ALI FACP CCDS Ot I11.0 HYPERTENSIVE HEART DISEASE WITH HEART FA 06/15/2016 IJEOMA CULLEN FACC, ALI FACP CCDS Ot I50.31 ACUTE DIASTOLIC (CONGESTIVE) HEART FAILU 06/15/2016 IJEOMA CULLEN FACC, ALI FACP CCDS Ot J43.8 OTHER EMPHYSEMA 06/15/2016 IJEOMA CULLEN FACC, ALI FACP CCDS Ot Z72.0 TOBACCO USE 06/16/2016 IJEOMA CULLEN FACC, ALI FACP CCDS Ot I10 ESSENTIAL (PRIMARY) HYPERTENSION 06/16/2016 IJEOMA CULLEN FACC, ALI FACP CCDS Ot I50.31 ACUTE DIASTOLIC (CONGESTIVE) HEART FAILU 06/16/2016 IJEOMA CULLEN FACC, ALI FACP CCDS Ot I73.9 PERIPHERAL VASCULAR DISEASE, UNSPECIFIED 06/16/2016 IJEOMA CULLEN FACC, ALI FACP CCDS Ot J43.8 OTHER EMPHYSEMA 06/16/2016 IJEOMA CULLEN FACC, ALI FACP CCDS Ot Z72.0 TOBACCO USE 06/16/2016 ARJUNBARNEY BROWN Selina CHEMICAL LIBRARIAN Ot E83.42 HYPOMAGNESEMIA 06/16/2016 TIO BARNEY Marks CHEMICAL LIBRARIAN Ot E87.6 HYPOKALEMIA 06/17/2016 IJEOMA CULLEN FACC, ALI FACP CCDS Ot I11.0 HYPERTENSIVE HEART DISEASE WITH HEART FA 06/17/2016 IJEOMA CULLEN FACC, ALI FACP CCDS Ot I50.31 ACUTE DIASTOLIC (CONGESTIVE) HEART FAILU 06/17/2016 IJEOMA CULLEN FACC, ALI FACP CCDS Ot J43.8 OTHER EMPHYSEMA 06/17/2016 IJEOMA CULLEN FACC, ALI FACP CCDS Ot Z72.0 TOBACCO USE 06/21/2016 IJEOMA CULLEN FACC, ALI FACP CCDS Ot I10 ESSENTIAL (PRIMARY) HYPERTENSION 06/21/2016 IJEOMA CULLEN FACC, ALI FACP CCDS Ot I50.31 ACUTE DIASTOLIC (CONGESTIVE) HEART FAILU 06/21/2016 IJEOMA CULLEN FACC, ALI FACP CCDS Ot I73.9 PERIPHERAL VASCULAR DISEASE, UNSPECIFIED 06/21/2016 IJEOMA CULLEN FACC, ALI FACP CCDS Ot J43.8 OTHER EMPHYSEMA 06/21/2016 IJEOMA CULLEN FACC, ALI FACP CCDS Ot Z72.0 TOBACCO USE 06/24/2016 TANMAY MAI DO Ot G47.30 SLEEP APNEA, UNSPECIFIED 06/24/2016 TANMAY MAI DO Ot G47.50 PARASOMNIA, UNSPECIFIED 06/24/2016 TANMAY MAI DO Ot G47.9 SLEEP DISORDER, UNSPECIFIED 06/25/2016 TANMAY MAI DO Ot G47.10 HYPERSOMNIA, UNSPECIFIED 06/25/2016 TANMAY MAI DO Ot G47.30 SLEEP APNEA, UNSPECIFIED 06/25/2016 TANMAY MAI DO Ot G47.50 PARASOMNIA, UNSPECIFIED 06/25/2016 TANMAY MAI DO Ot G47.9 SLEEP DISORDER, UNSPECIFIED 06/25/2016 PAU PINEDO TANMAY M Ot G47.10 HYPERSOMNIA, UNSPECIFIED 06/25/2016 TANAMY MAI DO Ot G47.30 SLEEP APNEA, UNSPECIFIED 06/25/2016 TANMAY MAI DO Ot G47.50 PARASOMNIA, UNSPECIFIED 06/30/2016 TANMAY MAI DO Ot G47.9 SLEEP DISORDER, UNSPECIFIED 06/30/2016 TANMAY MAI DO Ot I50.31 ACUTE DIASTOLIC (CONGESTIVE) HEART FAILU 06/30/2016 TANMAY MAI DO Ot J43.8 OTHER EMPHYSEMA 06/30/2016 TANMAY MAI DO Ot R06.83 SNORING 06/30/2016 TANMAY MAI DO Ot Z72.0 TOBACCO USE 06/30/2016 BARNEY KINSEY CHEMICAL LIBRARIAN Ot E83.42 HYPOMAGNESEMIA 06/30/2016 BARNEY KINSEY CHEMICAL LIBRARIAN Ot E87.6 HYPOKALEMIA 07/02/2016 TANMAY MAI DO Ot G47.9 SLEEP DISORDER, UNSPECIFIED 07/02/2016 TANMAY MAI DO Ot I50.31 ACUTE DIASTOLIC (CONGESTIVE) HEART FAILU 07/02/2016 TANMAY MAI DO Ot J43.8 OTHER EMPHYSEMA 07/02/2016 TANMAY MAI DO Ot R06.83 SNORING 07/02/2016 TANMAY MAI DO Ot Z72.0 TOBACCO USE 08/11/2016 IJEOMA CULLEN FACC, DAGO FACP CCDS Ot E78.4 OTHER HYPERLIPIDEMIA 08/11/2016 IJEOMA CULLEN FACC, DAGO FACP CCDS Ot I12.9 HYPERTENSIVE CHRONIC KIDNEY DISEASE W ST 08/11/2016 IJEOMA CULLEN FACC, DAGO FACP CCDS Ot I25.10 ATHSCL HEART DISEASE OF [place] CORONARY 08/11/2016 IJEOMA CULLEN FACC, DAGO FACP CCDS Ot I65.23 OCCLUSION AND STENOSIS OF [place] 08/11/2016 IJEOMA CULLEN FACC, DAGO FACP CCDS Ot I73.89 OTHER SPECIFIED PERIPHERAL VASCULAR DISE 08/11/2016 IJEOMA CULLEN FACC, DAGO FACP CCDS Ot N18.3 CHRONIC KIDNEY DISEASE, STAGE 3 (MODERAT 08/11/2016 IJEOMA MD FACC, ALI FACP CCDS Ot Z72.0 TOBACCO USE 09/07/2016 IJEOMA CULLEN [facility], ALI FACP CCDS Ot E78.4 OTHER HYPERLIPIDEMIA 09/07/2016 IJEOMA CULLEN FACC, ALI FACP CCDS Ot I12.9 HYPERTENSIVE CHRONIC KIDNEY DISEASE W ST 09/07/2016 IJEOMA CULLEN FACC, ALI FACP CCDS Ot I25.10 ATHSCL HEART DISEASE OF [place] CORONARY 09/07/2016 IJEOMA CULLEN [facility], ALI FACP CCDS Ot I65.23 OCCLUSION AND STENOSIS OF [place] 09/07/2016 IJEOMA CULLEN [facility], ALI FACP CCDS Ot I73.89 OTHER SPECIFIED PERIPHERAL VASCULAR DISE 09/07/2016 IJEOMA CULLEN FACC, ALI FACP CCDS Ot N18.3 CHRONIC KIDNEY DISEASE, STAGE 3 (MODERAT 09/07/2016 IJEOMA SANCHEZ, ALI FACP CCDS Ot Z72.0 TOBACCO USE 12/16/2016 SRIKANTH PETERSON APRN Ot R91.1 SOLITARY PULMONARY NODULE 12/19/2016 BAIMA, BARNEY L CHEMICAL LIBRARIAN Ot I12.9 HYPERTENSIVE CHRONIC KIDNEY DISEASE W ST 12/19/2016 BAIMA, BARNEY L CHEMICAL LIBRARIAN Ot I25.10 ATHSCL HEART DISEASE OF [place] CORONARY 12/19/2016 BAIMA, BARNEY L CHEMICAL LIBRARIAN Ot I65.23 OCCLUSION AND STENOSIS OF [place] 12/19/2016 BAIMA, BARNEY L CHEMICAL LIBRARIAN Ot I73.89 OTHER SPECIFIED PERIPHERAL VASCULAR DISE 12/19/2016 BAIMA, BARNEY L CHEMICAL LIBRARIAN Ot M79.89 OTHER SPECIFIED SOFT TISSUE DISORDERS 12/19/2016 BAIMA, BARNEY L CHEMICAL LIBRARIAN Ot N18.3 CHRONIC KIDNEY DISEASE, STAGE 3 (MODERAT 01/04/2017 BAIMA, BARNEY L CHEMICAL LIBRARIAN Ot I12.9 HYPERTENSIVE CHRONIC KIDNEY DISEASE W ST 01/04/2017 BAIMA, BARNEY L CHEMICAL LIBRARIAN Ot I25.10 ATHSCL HEART DISEASE OF [place] CORONARY 01/04/2017 BAIMA, BARNEY L CHEMICAL LIBRARIAN Ot I65.23 OCCLUSION AND STENOSIS OF [place] 01/04/2017 BAIMA, BARNEY L CHEMICAL LIBRARIAN Ot I73.89 OTHER SPECIFIED PERIPHERAL VASCULAR DISE 01/04/2017 BAIMA, BARNEY L CHEMICAL LIBRARIAN Ot M79.89 OTHER SPECIFIED SOFT TISSUE DISORDERS 01/04/2017 BAIMA, BARNEY L CHEMICAL LIBRARIAN Ot N18.3 CHRONIC KIDNEY DISEASE, STAGE 3 (MODERAT 01/06/2017 SRIKANTH PETERSON APRN Ot R91.1 SOLITARY PULMONARY NODULE 01/10/2017 SRIKANTH PETERSON INCIDENT RESPONSE ANALYST Ot R91.1 SOLITARY PULMONARY NODULE 06/13/2017 BARNEY KINSEY CHEMICAL LIBRARIAN Ot E78.5 HYPERLIPIDEMIA, UNSPECIFIED 06/13/2017 BARNEY KINSEY CHEMICAL LIBRARIAN Ot I10 ESSENTIAL (PRIMARY) HYPERTENSION 06/13/2017 BARNEY KINSEY CHEMICAL LIBRARIAN Ot I25.10 ATHSCL HEART DISEASE OF [place] CORONARY 06/13/2017 BARNEY KINSEY CHEMICAL LIBRARIAN Ot I51.7 CARDIOMEGALY 06/13/2017 ARJUNBARNEY BROWN CHEMICAL LIBRARIAN Ot I73.9 PERIPHERAL VASCULAR DISEASE, UNSPECIFIED 06/13/2017 ARJUNBARNEY BROWN CHEMICAL LIBRARIAN Ot I77.9 DISORDER OF ARTERIES AND ARTERIOLES, UNS 06/13/2017 ARJUNBARNEY BROWN CHEMICAL LIBRARIAN Ot J43.9 EMPHYSEMA, UNSPECIFIED 06/13/2017 BARNEY KINSEY CHEMICAL LIBRARIAN Ot R94.31 ABNORMAL ELECTROCARDIOGRAM [ECG] [EKG] 06/13/2017 BARNEY KINSEY CHEMICAL LIBRARIAN Ot Z72.0 TOBACCO USE 06/13/2017 IJEOMA CULLEN FACC, DAGO FACP CCDS Ot I11.0 HYPERTENSIVE HEART DISEASE WITH HEART FA 06/13/2017 IJEOMA CULLEN FACC, ALI FACP CCDS Ot I50.31 ACUTE DIASTOLIC (CONGESTIVE) HEART FAILU 06/13/2017 IJEOMA CULLEN FACC, ALI FACP CCDS Ot J43.8 OTHER EMPHYSEMA 06/13/2017 IJEOMA CULLEN FACC, ALI FACP CCDS Ot Z72.0 TOBACCO USE 06/13/2017 IJEOMA CULLEN FACC, ALI FACP CCDS Ot I11.0 HYPERTENSIVE HEART DISEASE WITH HEART FA 06/13/2017 IJEOMA CULLEN FACC, ALI FACP CCDS Ot I50.31 ACUTE DIASTOLIC (CONGESTIVE) HEART FAILU 06/13/2017 IJEOMA CULLEN FACC, ALI FACP CCDS Ot J43.8 OTHER EMPHYSEMA 06/13/2017 IJEOMA CULLEN FACC, ALI FACP CCDS Ot Z72.0 TOBACCO USE 06/13/2017 IJEOMA CULLEN FACC, ALI FACP CCDS Ot I50.31 ACUTE DIASTOLIC (CONGESTIVE) HEART FAILU 06/13/2017 IJEOMA CULLEN FACC, DAGO FACP CCDS Ot I10 ESSENTIAL (PRIMARY) HYPERTENSION 06/13/2017 IJEOMA CULLEN FACC, DAGO FACP CCDS Ot I50.31 ACUTE DIASTOLIC (CONGESTIVE) HEART FAILU 06/13/2017 IJEOMA CULLEN FACC, DAGO FACP CCDS Ot I73.9 PERIPHERAL VASCULAR DISEASE, UNSPECIFIED 06/13/2017 IJEOMA CULLEN FACC, DAGO FACP CCDS Ot J43.8 OTHER EMPHYSEMA 06/13/2017 IJEOMA CULLEN FACC, DAGO FACP CCDS Ot Z72.0 TOBACCO USE 06/13/2017 JOSESITO KINSEYHER L CHEMICAL LIBRARIAN Ot E87.6 HYPOKALEMIA 06/13/2017 JOSESITO KINSEYHER L CHEMICAL LIBRARIAN Ot I10 ESSENTIAL (PRIMARY) HYPERTENSION 06/13/2017 JOSESITO KINSEYHER L CHEMICAL LIBRARIAN Ot E83.42 HYPOMAGNESEMIA 06/13/2017 JOSESITO KINSEYHER L CHEMICAL LIBRARIAN Ot E87.6 HYPOKALEMIA 06/13/2017 TANMAY MAI DO Ot G47.9 SLEEP DISORDER, UNSPECIFIED 06/13/2017 TANMAY MAI DO Ot I50.31 ACUTE DIASTOLIC (CONGESTIVE) HEART FAILU 06/13/2017 TANMAY MAI DO Ot J43.8 OTHER EMPHYSEMA 06/13/2017 TANMAY MAI DO Ot R06.83 SNORING 06/13/2017 TANMAY MAI DO Ot Z72.0 TOBACCO USE 06/13/2017 JOSESITO KINSEYHER L CHEMICAL LIBRARIAN Ot E83.42 HYPOMAGNESEMIA 06/13/2017 BARNEY KINSEY L CHEMICAL LIBRARIAN Ot E87.6 HYPOKALEMIA 06/13/2017 IJEOMA CULLEN FACC, DAGO FACP CCDS Ot E78.4 OTHER HYPERLIPIDEMIA 06/13/2017 IJEOMA CULLEN FACC, DAGO FACP CCDS Ot I12.9 HYPERTENSIVE CHRONIC KIDNEY DISEASE W ST 06/13/2017 IJEOMA CULLEN FACC, DAGO FACP CCDS Ot I25.10 ATHSCL HEART DISEASE OF [place] CORONARY 06/13/2017 IJEOMA CULLEN FACC, DAGO FACP CCDS Ot I65.23 OCCLUSION AND STENOSIS OF [place] 06/13/2017 IJEOMA CULLEN FACC, DAGO FACP CCDS Ot I73.89 OTHER SPECIFIED PERIPHERAL VASCULAR DISE 06/13/2017 IJEOMA CULLEN FACC, ALI FACP CCDS Ot N18.3 CHRONIC KIDNEY DISEASE, STAGE 3 (MODERAT 06/13/2017 IJEOMA CULLEN FACC, DAGO CLAY CCDS Ot Z72.0 TOBACCO USE 06/13/2017 SRIKANTH PETERSON APRN Ot R91.1 SOLITARY PULMONARY NODULE 06/13/2017 BARNEY KINSEY CHEMICAL LIBRARIAN Ot I12.9 HYPERTENSIVE CHRONIC KIDNEY DISEASE W ST 06/13/2017 BARNEY KINSEY CHEMICAL LIBRARIAN Ot I25.10 ATHSCL HEART DISEASE OF [place] CORONARY 06/13/2017 BARNEY KINSEY L CHEMICAL LIBRARIAN Ot I65.23 OCCLUSION AND STENOSIS OF [place] 06/13/2017 BARNEY KINSEY L CHEMICAL LIBRARIAN Ot I73.89 OTHER SPECIFIED PERIPHERAL VASCULAR DISE 06/13/2017 BARNEY KINSEY CHEMICAL LIBRARIAN Ot M79.89 OTHER SPECIFIED SOFT TISSUE DISORDERS 06/13/2017 BARNEY KINSEY CHEMICAL LIBRARIAN Ot N18.3 CHRONIC KIDNEY DISEASE, STAGE 3 (MODERAT 06/15/2017 SRIKANTH PETERSON INCIDENT RESPONSE ANALYST Ot G47.33 OBSTRUCTIVE SLEEP APNEA (ADULT) (PEDIATR 06/15/2017 SRIKANTH PETERSON INCIDENT RESPONSE ANALYST Ot J44.9 CHRONIC OBSTRUCTIVE PULMONARY DISEASE, U 06/15/2017 SRIKANTH PETERSON INCIDENT RESPONSE ANALYST Ot R91.1 SOLITARY PULMONARY NODULE 06/15/2017 SRIKANTH PETERSON INCIDENT RESPONSE ANALYST Ot Z72.0 TOBACCO USE 06/29/2017 SRIKANTH PETERSON INCIDENT RESPONSE ANALYST Ot G47.33 OBSTRUCTIVE SLEEP APNEA (ADULT) (PEDIATR 06/29/2017 SRIKANTH PETERSON INCIDENT RESPONSE ANALYST Ot J44.9 CHRONIC OBSTRUCTIVE PULMONARY DISEASE, U 06/29/2017 SRIKANTH PETERSON INCIDENT RESPONSE ANALYST Ot R91.1 SOLITARY PULMONARY NODULE 06/29/2017 SRIKANTH PETERSON INCIDENT RESPONSE ANALYST Ot Z72.0 TOBACCO USE 12/12/2017 BARNEY KINSEY CHEMICAL LIBRARIAN Ot E78.5 HYPERLIPIDEMIA, UNSPECIFIED 12/12/2017 BARNEY KINSEY CHEMICAL LIBRARIAN Ot I10 ESSENTIAL (PRIMARY) HYPERTENSION 12/12/2017 BARNEY KINSEY L CHEMICAL LIBRARIAN Ot I25.10 ATHSCL HEART DISEASE OF [place] CORONARY 12/12/2017 BARNEY KINSEY CHEMICAL LIBRARIAN Ot I51.7 CARDIOMEGALY 12/12/2017 BARNEY KINSEY L CHEMICAL LIBRARIAN Ot I73.9 PERIPHERAL VASCULAR DISEASE, UNSPECIFIED 12/12/2017 BARNEY KINSEY CHEMICAL LIBRARIAN Ot I77.9 DISORDER OF ARTERIES AND ARTERIOLES, UNS 12/12/2017 BARNEY KINSEY CHEMICAL LIBRARIAN Ot J43.9 EMPHYSEMA, UNSPECIFIED 12/12/2017 ARJUNBARNEY BROWN CHEMICAL LIBRARIAN Ot R94.31 ABNORMAL ELECTROCARDIOGRAM [ECG] [EKG] 12/12/2017 ARJUNBARNEY BROWN CHEMICAL LIBRARIAN Ot Z72.0 TOBACCO USE 12/12/2017 IJEOMA CULLEN FACC, ALI FACP CCDS Ot I11.0 HYPERTENSIVE HEART DISEASE WITH HEART FA 12/12/2017 IJEOMA CULLEN FACC, ALI FACP CCDS Ot I50.31 ACUTE DIASTOLIC (CONGESTIVE) HEART FAILU 12/12/2017 IJEOMA UCLLEN FACC, ALI FACP CCDS Ot J43.8 OTHER EMPHYSEMA 12/12/2017 IJEOMA CULLEN FACC, ALI FACP CCDS Ot Z72.0 TOBACCO USE 12/12/2017 IJEMOA CULLEN FACC, ALI FACP CCDS Ot I11.0 HYPERTENSIVE HEART DISEASE WITH HEART FA 12/12/2017 IJEOMA CULLEN FACC, ALI FACP CCDS Ot I50.31 ACUTE DIASTOLIC (CONGESTIVE) HEART FAILU 12/12/2017 IJEOMA CULLEN FACC, ALI FACP CCDS Ot J43.8 OTHER EMPHYSEMA 12/12/2017 IJEOMA CULLEN FACC, ALI FACP CCDS Ot Z72.0 TOBACCO USE 12/12/2017 IJEOMA CULLEN FACC, ALI FACP CCDS Ot I50.31 ACUTE DIASTOLIC (CONGESTIVE) HEART FAILU 12/12/2017 IJEOMA CULLEN FACC, ALI FACP CCDS Ot I10 ESSENTIAL (PRIMARY) HYPERTENSION 12/12/2017 IJEOMA CULLEN FACC, ALI FACP CCDS Ot I50.31 ACUTE DIASTOLIC (CONGESTIVE) HEART FAILU 12/12/2017 IJEOMA SANCHEZC, ALI FACP CCDS Ot I73.9 PERIPHERAL VASCULAR DISEASE, UNSPECIFIED 12/12/2017 IJEOMA CULLEN FACC, ALI FACP CCDS Ot J43.8 OTHER EMPHYSEMA 12/12/2017 IJEOMA CULLEN FACC, ALI FACP CCDS Ot Z72.0 TOBACCO USE 12/12/2017 ARJUNBARNEY BROWN Selina CHEMICAL LIBRARIAN Ot E87.6 HYPOKALEMIA 12/12/2017 TIOBARNEY Selina CHEMICAL LIBRARIAN Ot I10 ESSENTIAL (PRIMARY) HYPERTENSION 12/12/2017 ARJUNBARNEY BROWN CHEMICAL LIBRARIAN Ot E83.42 HYPOMAGNESEMIA 12/12/2017 ARJUNBARNEY BROWN Selina CHEMICAL LIBRARIAN Ot E87.6 HYPOKALEMIA 12/12/2017 PAUTANMAY ALDANA DO Ot G47.9 SLEEP DISORDER, UNSPECIFIED 12/12/2017 TANMAY MAI DO Ot I50.31 ACUTE DIASTOLIC (CONGESTIVE) HEART FAILU 12/12/2017 PAU TANMAY Taylor Ot J43.8 OTHER EMPHYSEMA 12/12/2017 PAU TANMAY PINEDO Ot R06.83 SNORING 12/12/2017 PAUTANMAY ALDANA DO Ot Z72.0 TOBACCO USE 12/12/2017 TIOBARNEY L CHEMICAL LIBRARIAN Ot E83.42 HYPOMAGNESEMIA 12/12/2017 TIO BARNEY L CHEMICAL LIBRARIAN Ot E87.6 HYPOKALEMIA 12/12/2017 IJEOMA CULLEN FACC, ALI FACP CCDS Ot E78.4 OTHER HYPERLIPIDEMIA 12/12/2017 IJEOMA CULLEN FACC, ALI FACP CCDS Ot I12.9 HYPERTENSIVE CHRONIC KIDNEY DISEASE W ST 12/12/2017 IJEOMA SANCHEZC, ALI FACP CCDS Ot I25.10 ATHSCL HEART DISEASE OF [place] CORONARY 12/12/2017 IJEOMA CULLEN FACC, ALI FACP CCDS Ot I65.23 OCCLUSION AND STENOSIS OF BILATERAL [place] 12/12/2017 IJEOMA CULLEN FACC, ALI FACP CCDS Ot I73.89 OTHER SPECIFIED PERIPHERAL VASCULAR DISE 12/12/2017 IJEOMA CULLEN FACC, ALI FACP CCDS Ot N18.3 CHRONIC KIDNEY DISEASE, STAGE 3 (MODERAT 12/12/2017 IJEOMA CULLEN FACC, ALI FACP CCDS Ot Z72.0 TOBACCO USE 12/12/2017 SRIKANTH PETERSON APRN Ot R91.1 SOLITARY PULMONARY NODULE 12/12/2017 TIO BARNEY L CHEMICAL LIBRARIAN Ot I12.9 HYPERTENSIVE CHRONIC KIDNEY DISEASE W ST 12/12/2017 BARNEY KINSEY L CHEMICAL LIBRARIAN Ot I25.10 ATHSCL HEART DISEASE OF [place] CORONARY 12/12/2017 TIO BARNEY L CHEMICAL LIBRARIAN Ot I65.23 OCCLUSION AND STENOSIS OF BILATERAL [place] 12/12/2017 JOSESITO KINSEYHER L CHEMICAL LIBRARIAN Ot I73.89 OTHER SPECIFIED PERIPHERAL VASCULAR DISE 12/12/2017 ARJUNBARNEY BROWN Selina CHEMICAL LIBRARIAN Ot M79.89 OTHER SPECIFIED SOFT TISSUE DISORDERS 12/12/2017 ARJUNBARNEY BROWN Selina CHEMICAL LIBRARIAN Ot N18.3 CHRONIC KIDNEY DISEASE, STAGE 3 (MODERAT 12/12/2017 SRIKANTH PETERSON APRN Ot G47.33 OBSTRUCTIVE SLEEP APNEA (ADULT) (PEDIATR 12/12/2017 SRIKANTH PETERSON APRN Ot J44.9 CHRONIC OBSTRUCTIVE PULMONARY DISEASE, U 12/12/2017 SRIKANTH PETERSON APRN Ot R91.1 SOLITARY PULMONARY NODULE 12/12/2017 SRIKANTH PETERSON APRN Ot Z72.0 TOBACCO USE 12/14/2017 TANMAY MAI DO Ot G47.33 OBSTRUCTIVE SLEEP APNEA (ADULT) (PEDIATR 12/14/2017 TANMAY MAI DO Ot I50.31 ACUTE DIASTOLIC (CONGESTIVE) HEART FAILU 12/14/2017 TANMAY MAI DO Ot J44.9 CHRONIC OBSTRUCTIVE PULMONARY DISEASE, U 12/14/2017 TANMAY MAI DO Ot J90 PLEURAL EFFUSION, NOT ELSEWHERE CLASSIFI 12/14/2017 TANMAY MAI DO Ot R91.8 OTHER NONSPECIFIC ABNORMAL FINDING OF [place] 12/14/2017 TANMAY MAI DO Ot Z72.0 TOBACCO USE 12/22/2017 ELMER FLOREZ MD Ot K57.30 DVRTCLOS OF LG INT W/O PERFORATION OR AB 12/22/2017 ELMER FLOREZ MD Ot N28.1 CYST OF KIDNEY, ACQUIRED 12/22/2017 ELMER FLOREZ MD Ot R74.8 ABNORMAL LEVELS OF OTHER SERUM ENZYMES 12/29/2017 SRIKANTH PETERSON APRN Ot G47.33 OBSTRUCTIVE SLEEP APNEA (ADULT) (PEDIATR 12/29/2017 SRIKANTH PETERSON APRN Ot I50.31 ACUTE DIASTOLIC (CONGESTIVE) HEART FAILU 12/29/2017 SRIKANTH PETERSON APRN Ot J44.9 CHRONIC OBSTRUCTIVE PULMONARY DISEASE, U 12/29/2017 SRIKANTH PETERSON APRN Ot J84.10 PULMONARY FIBROSIS, UNSPECIFIED 12/29/2017 SRIKANTH PETERSON APRN Ot J90 PLEURAL EFFUSION, NOT ELSEWHERE CLASSIFI 12/29/2017 SRIKANTH PETERSON APRN Ot R06.00 DYSPNEA, UNSPECIFIED 12/29/2017 SRIKANTH PETERSON APRN Ot R91.8 OTHER NONSPECIFIC ABNORMAL FINDING OF [place] 12/29/2017 SRIKANTH PETERSON APRN Ot Z72.0 TOBACCO USE 01/12/2018 PAU DOMAYURTANMAY M Ot G47.33 OBSTRUCTIVE SLEEP APNEA (ADULT) (PEDIATR 01/12/2018 PAU DOMAYURTANMAY M Ot I50.31 ACUTE DIASTOLIC (CONGESTIVE) HEART FAILU 01/12/2018 TANMAY MAI DO M Ot J44.9 CHRONIC OBSTRUCTIVE PULMONARY DISEASE, U 01/12/2018 PAU DOMAYURTANMAY M Ot J90 PLEURAL EFFUSION, NOT ELSEWHERE CLASSIFI 01/12/2018 PAU DOMAYURTANMAY M Ot R91.8 OTHER NONSPECIFIC ABNORMAL FINDING OF QUIQUE 01/12/2018 PAU DOTANMAY M Ot Z72.0 TOBACCO USE 01/13/2018 ELMER FLOREZ MD Ot K57.30 DVRTCLOS OF LG INT W/O PERFORATION OR AB 01/13/2018 ELMER FLOREZ MD Ot N28.1 CYST OF KIDNEY, ACQUIRED 01/13/2018 ELMER FLOREZ MD Ot R74.8 ABNORMAL LEVELS OF OTHER SERUM ENZYMES 01/16/2018 PAU DOMAYURTANMAY M Ot G47.33 OBSTRUCTIVE SLEEP APNEA (ADULT) (PEDIATR 01/16/2018 PAU DOMAYURTANMAY M Ot I50.31 ACUTE DIASTOLIC (CONGESTIVE) HEART FAILU 01/16/2018 TANMAY MAI DO M Ot J44.9 CHRONIC OBSTRUCTIVE PULMONARY DISEASE, U 01/16/2018 PAU DOMAYURTANMAY M Ot J90 PLEURAL EFFUSION, NOT ELSEWHERE CLASSIFI 01/16/2018 TANMAY MAI DO M Ot R91.8 OTHER NONSPECIFIC ABNORMAL FINDING OF QUI[place] 01/16/2018 PAU DOMAYURTANMAY M Ot Z72.0 TOBACCO USE 01/16/2018 ELMER FLOREZ MD Ot K57.30 DVRTCLOS OF LG INT W/O PERFORATION OR AB 01/16/2018 ELMER FLOREZ MD Ot N28.1 CYST OF KIDNEY, ACQUIRED 01/16/2018 ELMER FLOREZ MD Ot R74.8 ABNORMAL LEVELS OF OTHER SERUM ENZYMES 01/20/2018 SRIKANTH PETERSON APRN Ot G47.33 OBSTRUCTIVE SLEEP APNEA (ADULT) (PEDIATR 01/20/2018 KRISTEN, SRIKANTH E INCIDENT RESPONSE ANALYST Ot I50.31 ACUTE DIASTOLIC (CONGESTIVE) HEART FAILU 01/20/2018 MAYURI PETERSONINE E INCIDENT RESPONSE ANALYST Ot J44.9 CHRONIC OBSTRUCTIVE PULMONARY DISEASE, U 01/20/2018 MAYURI PETERSONINE E INCIDENT RESPONSE ANALYST Ot J84.10 PULMONARY FIBROSIS, UNSPECIFIED 01/20/2018 MAYURI PETERSONINE E INCIDENT RESPONSE ANALYST Ot J90 PLEURAL EFFUSION, NOT ELSEWHERE CLASSIFI 01/20/2018 MAYURI PETERSONINE E INCIDENT RESPONSE ANALYST Ot R06.00 DYSPNEA, UNSPECIFIED 01/20/2018 MAYURI PETERSONINE E INCIDENT RESPONSE ANALYST Ot R91.8 OTHER NONSPECIFIC ABNORMAL FINDING OF QUI[place] 01/20/2018 SRIKANTH PETERSON INCIDENT RESPONSE ANALYST Ot Z72.0 TOBACCO USE 01/20/2018 MAYURI PETERSONINE Sabina INCIDENT RESPONSE ANALYST Ot G47.33 OBSTRUCTIVE SLEEP APNEA (ADULT) (PEDIATR 01/20/2018 MAYURI PETERSONINE E INCIDENT RESPONSE ANALYST Ot I50.31 ACUTE DIASTOLIC (CONGESTIVE) HEART FAILU 01/20/2018 MAYURI PETERSONINE E INCIDENT RESPONSE ANALYST Ot J44.9 CHRONIC OBSTRUCTIVE PULMONARY DISEASE, U 01/20/2018 MAYURI PETERSONINE E INCIDENT RESPONSE ANALYST Ot J84.10 PULMONARY FIBROSIS, UNSPECIFIED 01/20/2018 SRIKANTH PETERSON INCIDENT RESPONSE ANALYST Ot J90 PLEURAL EFFUSION, NOT ELSEWHERE CLASSIFI 01/20/2018 SRIKANTH PETERSON INCIDENT RESPONSE ANALYST Ot R06.00 DYSPNEA, UNSPECIFIED 01/20/2018 MAYURI PETERSONINE Sabina INCIDENT RESPONSE ANALYST Ot R91.8 OTHER NONSPECIFIC ABNORMAL FINDING OF QUIQUE 01/20/2018 SRIKANTH PETERSON INCIDENT RESPONSE ANALYST Ot Z72.0 TOBACCO USE 03/06/2018 SRIKANTH PETERSON INCIDENT RESPONSE ANALYST Ot G47.33 OBSTRUCTIVE SLEEP APNEA (ADULT) (PEDIATR 03/06/2018 MAYURI PETERSONINE E INCIDENT RESPONSE ANALYST Ot I50.31 ACUTE DIASTOLIC (CONGESTIVE) HEART FAILU 03/06/2018 MAYURI PETERSONINE E INCIDENT RESPONSE ANALYST Ot J43.8 OTHER EMPHYSEMA 03/06/2018 MAYURI PETERSONINE E INCIDENT RESPONSE ANALYST Ot J90 PLEURAL EFFUSION, NOT ELSEWHERE CLASSIFI 03/06/2018 MAYURI PETERSONINE E INCIDENT RESPONSE ANALYST Ot R91.8 OTHER NONSPECIFIC ABNORMAL FINDING OF QUIQUE 03/06/2018 MAYURI PETERSONINE E INCIDENT RESPONSE ANALYST Ot Z72.0 TOBACCO USE 03/08/2018 MAYURI PETERSONINE E INCIDENT RESPONSE ANALYST Ot B37.0 CANDIDAL STOMATITIS 03/08/2018 SRIKANTH PETERSON APRN Ot G47.10 HYPERSOMNIA, UNSPECIFIED 03/08/2018 SRIKANTH PETERSON APRN Ot G47.33 OBSTRUCTIVE SLEEP APNEA (ADULT) (PEDIATR 03/08/2018 SRIKANTH PETERSON APRN Ot I50.31 ACUTE DIASTOLIC (CONGESTIVE) HEART FAILU 03/08/2018 SRIKANTH PETERSON APRN Ot I51.7 CARDIOMEGALY 03/08/2018 SRIKANTH PETERSON APRN Ot I87.8 OTHER SPECIFIED DISORDERS OF VEINS 03/08/2018 SRIKANTH PETERSON APRN Ot J43.8 OTHER EMPHYSEMA 03/08/2018 SRIKANTH PETERSON APRN Ot J90 PLEURAL EFFUSION, NOT ELSEWHERE CLASSIFI 03/08/2018 SRIKANTH PETERSON APRN Ot Z72.0 TOBACCO USE 03/13/2018 Ot J44.9 CHRONIC OBSTRUCTIVE PULMONARY DISEASE, U 03/13/2018 Ot J90 PLEURAL EFFUSION, NOT ELSEWHERE CLASSIFI 03/13/2018 Ot Z72.0 TOBACCO USE 03/14/2018 Ot J44.9 CHRONIC OBSTRUCTIVE PULMONARY DISEASE, U 03/14/2018 Ot J90 PLEURAL EFFUSION, NOT ELSEWHERE CLASSIFI 03/14/2018 Ot R91.8 OTHER NONSPECIFIC ABNORMAL FINDING OF QUIQUE 03/14/2018 Ot Z72.0 TOBACCO USE 03/21/2018 TANMAY MAI DO Ot Z01.818 ENCOUNTER FOR OTHER PREPROCEDURAL EXAMIN 03/24/2018 TANMAY MAI DO Ot G47.33 OBSTRUCTIVE SLEEP APNEA (ADULT) (PEDIATR 03/24/2018 TANMAY MAI DO Ot I25.10 ATHSCL HEART DISEASE OF [place] CORONARY 03/24/2018 TANMAY MAI DO Ot I50.31 ACUTE DIASTOLIC (CONGESTIVE) HEART FAILU 03/24/2018 TANMAY MAI DO Ot J44.9 CHRONIC OBSTRUCTIVE PULMONARY DISEASE, U 03/24/2018 TANMAY MAI DO Ot J84.9 INTERSTITIAL PULMONARY DISEASE, UNSPECIF 03/24/2018 TANMAY MAI DO Ot J90 PLEURAL EFFUSION, NOT ELSEWHERE CLASSIFI 03/24/2018 TANMAY MAI DO Ot R91.8 OTHER NONSPECIFIC ABNORMAL FINDING OF QUIQUE 03/24/2018 TANMAY MAI DO Ot Z72.0 TOBACCO USE 03/24/2018 TANMAY MAI DO Ot Z79.82 PATTERN DRUM MAKER (CURRENT) USE OF ASPIRIN 03/24/2018 TANMAY MAI DO Ot Z79.899 OTHER SENIOR CARE (CURRENT) DRUG THERAPY 03/28/2018 TANMAY MAI DO Ot G47.33 OBSTRUCTIVE SLEEP APNEA (ADULT) (PEDIATR 03/28/2018 TANMAY MAI DO Ot I25.10 ATHSCL HEART DISEASE OF [place] CORONARY 03/28/2018 TANMAY MAI DO Ot I50.31 ACUTE DIASTOLIC (CONGESTIVE) HEART FAILU 03/28/2018 TANMAY MAI DO Ot J44.9 CHRONIC OBSTRUCTIVE PULMONARY DISEASE, U 03/28/2018 TANMAY MAI DO Ot J84.9 INTERSTITIAL PULMONARY DISEASE, UNSPECIF 03/28/2018 TANMAY MAI DO Ot J90 PLEURAL EFFUSION, NOT ELSEWHERE CLASSIFI 03/28/2018 TANMAY MAI DO Ot R91.8 OTHER NONSPECIFIC ABNORMAL FINDING OF QUI[place] 03/28/2018 TANMAY MAI DO Ot Z72.0 TOBACCO USE 03/28/2018 TANMAY MAI DO Ot Z79.82 PATTERN DRUM MAKER (CURRENT) USE OF ASPIRIN 03/28/2018 TANMAY MAI DO Ot Z79.899 OTHER SENIOR CARE (CURRENT) DRUG THERAPY 03/28/2018 TANMAY MAI DO Ot G47.33 OBSTRUCTIVE SLEEP APNEA (ADULT) (PEDIATR 03/28/2018 TANMAY MAI DO Ot I25.10 ATHSCL HEART DISEASE OF [place] CORONARY 03/28/2018 TANMAY MAI DO Ot I50.31 ACUTE DIASTOLIC (CONGESTIVE) HEART FAILU 03/28/2018 TANMAY MAI DO Ot J44.9 CHRONIC OBSTRUCTIVE PULMONARY DISEASE, U 03/28/2018 TANMAY MAI DO Ot J84.9 INTERSTITIAL PULMONARY DISEASE, UNSPECIF 03/28/2018 TANMAY MAI DO Ot J90 PLEURAL EFFUSION, NOT ELSEWHERE CLASSIFI 03/28/2018 TANMAY MAI DO Ot R91.8 OTHER NONSPECIFIC ABNORMAL FINDING OF QUIQUE 03/28/2018 TANMAY MAI DO Ot Z72.0 TOBACCO USE 03/28/2018 TANMAY MAI DO Ot Z79.82 SENIOR CARE (CURRENT) USE OF ASPIRIN 03/28/2018 PAU PINEDOTANMAY Ot Z79.899 OTHER PATTERN DRUM MAKER (CURRENT) DRUG THERAPY 04/03/2018 SRIKANTH PETERSON APRN Ot B37.0 CANDIDAL STOMATITIS 04/03/2018 SRIKANTH PETERSON INCIDENT RESPONSE ANALYST Ot G47.10 HYPERSOMNIA, UNSPECIFIED 04/03/2018 SRIKANTH PETERSON INCIDENT RESPONSE ANALYST Ot G47.33 OBSTRUCTIVE SLEEP APNEA (ADULT) (PEDIATR 04/03/2018 SRIKANTH PETERSON INCIDENT RESPONSE ANALYST Ot I50.31 ACUTE DIASTOLIC (CONGESTIVE) HEART FAILU 04/03/2018 SRIKANTH PETERSON INCIDENT RESPONSE ANALYST Ot I51.7 CARDIOMEGALY 04/03/2018 SRIKANTH PETERSON INCIDENT RESPONSE ANALYST Ot I87.8 OTHER SPECIFIED DISORDERS OF VEINS 04/03/2018 SRIKANTH PETERSON INCIDENT RESPONSE ANALYST Ot J43.8 OTHER EMPHYSEMA 04/03/2018 SRIKANTH PETERSON INCIDENT RESPONSE ANALYST Ot J90 PLEURAL EFFUSION, NOT ELSEWHERE CLASSIFI 04/03/2018 SRIKANTH PETERSON INCIDENT RESPONSE ANALYST Ot Z72.0 TOBACCO USE 04/04/2018 Ot J44.9 CHRONIC OBSTRUCTIVE PULMONARY DISEASE, U 04/04/2018 Ot J90 PLEURAL EFFUSION, NOT ELSEWHERE CLASSIFI 04/04/2018 Ot R91.8 OTHER NONSPECIFIC ABNORMAL FINDING OF QUIQUE 04/04/2018 Ot Z72.0 TOBACCO USE 04/05/2018 Ot J44.9 CHRONIC OBSTRUCTIVE PULMONARY DISEASE, U 04/05/2018 Ot J90 PLEURAL EFFUSION, NOT ELSEWHERE CLASSIFI 04/05/2018 Ot R91.8 OTHER NONSPECIFIC ABNORMAL FINDING OF QUIQUE 04/05/2018 Ot Z72.0 TOBACCO USE 04/06/2018 SRIKANTH PETERSON APRN Ot B37.0 CANDIDAL STOMATITIS 04/06/2018 SRIKANTH PETERSON INCIDENT RESPONSE ANALYST Ot G47.10 HYPERSOMNIA, UNSPECIFIED 04/06/2018 SRIKANTH PETERSON INCIDENT RESPONSE ANALYST Ot G47.33 OBSTRUCTIVE SLEEP APNEA (ADULT) (PEDIATR 04/06/2018 SRIKANTH PETERSON INCIDENT RESPONSE ANALYST Ot I50.31 ACUTE DIASTOLIC (CONGESTIVE) HEART FAILU 04/06/2018 SRIKANTH PETERSON INCIDENT RESPONSE ANALYST Ot I51.7 CARDIOMEGALY 04/06/2018 SRIKANTH PETERSON INCIDENT RESPONSE ANALYST Ot I87.8 OTHER SPECIFIED DISORDERS OF VEINS 04/06/2018 SRIKANTH PETERSON APRN Ot J43.8 OTHER EMPHYSEMA 04/06/2018 SRIKANTH PETERSON INCIDENT RESPONSE ANALYST Ot J90 PLEURAL EFFUSION, NOT ELSEWHERE CLASSIFI 04/06/2018 SRIKANTH PETERSON APRN Ot Z72.0 TOBACCO USE 04/17/2018 TANMAY MAI DO Ot G47.33 OBSTRUCTIVE SLEEP APNEA (ADULT) (PEDIATR 04/17/2018 TANMAY MAI DO Ot I25.10 ATHSCL HEART DISEASE OF [place] CORONARY 04/17/2018 TANMAY MAI DO Ot I50.31 ACUTE DIASTOLIC (CONGESTIVE) HEART FAILU 04/17/2018 TANMAY MAI DO Ot J44.9 CHRONIC OBSTRUCTIVE PULMONARY DISEASE, U 04/17/2018 TANMAY MAI DO Ot J84.9 INTERSTITIAL PULMONARY DISEASE, UNSPECIF 04/17/2018 TANMAY MAI DO Ot J90 PLEURAL EFFUSION, NOT ELSEWHERE CLASSIFI 04/17/2018 TANMAY MAI DO Ot R91.8 OTHER NONSPECIFIC ABNORMAL FINDING OF QUIQUE 04/17/2018 TANMAY MAI DO Ot Z72.0 TOBACCO USE 04/17/2018 TANMAY MAI DO Ot Z79.82 SENIOR CARE (CURRENT) USE OF ASPIRIN 04/17/2018 TANMAY MAI DO Ot Z79.899 OTHER SENIOR CARE (CURRENT) DRUG THERAPY 04/20/2018 TANMAY MAI DO Ot G47.33 OBSTRUCTIVE SLEEP APNEA (ADULT) (PEDIATR 04/20/2018 TANMAY MAI DO Ot I25.10 ATHSCL HEART DISEASE OF [place] CORONARY 04/20/2018 TANMAY MAI DO Ot I50.31 ACUTE DIASTOLIC (CONGESTIVE) HEART FAILU 04/20/2018 TANMAY MAI DO Ot J44.9 CHRONIC OBSTRUCTIVE PULMONARY DISEASE, U 04/20/2018 TANMAY MAI DO Ot J84.9 INTERSTITIAL PULMONARY DISEASE, UNSPECIF 04/20/2018 TANMAY MAI DO Ot J90 PLEURAL EFFUSION, NOT ELSEWHERE CLASSIFI 04/20/2018 TANMAY MAI DO Ot R91.8 OTHER NONSPECIFIC ABNORMAL FINDING OF QUIQUE 04/20/2018 TANMAY MAI DO Ot Z72.0 TOBACCO USE 04/20/2018 TANMAY MAI DO Ot Z79.82 SENIOR CARE (CURRENT) USE OF ASPIRIN 04/20/2018 PAU TANMAY PINEDO Ot Z79.899 OTHER PATTERN DRUM MAKER (CURRENT) DRUG THERAPY 05/16/2018 KRISTENMAYURISRIKANTH Sabina INCIDENT RESPONSE ANALYST Ot J44.9 CHRONIC OBSTRUCTIVE PULMONARY DISEASE, U 05/16/2018 KRISTEN, SRIKANTH E INCIDENT RESPONSE ANALYST Ot J84.9 INTERSTITIAL PULMONARY DISEASE, UNSPECIF 05/16/2018 KRISTENMAYURISRIKANTH E INCIDENT RESPONSE ANALYST Ot Z72.0 TOBACCO USE 05/18/2018 KRISTENMAYURISRIKANTH E INCIDENT RESPONSE ANALYST Ot J44.9 CHRONIC OBSTRUCTIVE PULMONARY DISEASE, U 05/18/2018 KRISTENMAYURISRIKANTH E INCIDENT RESPONSE ANALYST Ot J84.9 INTERSTITIAL PULMONARY DISEASE, UNSPECIF 05/18/2018 KRISTENMAYURISRIKANTH E INCIDENT RESPONSE ANALYST Ot Z72.0 TOBACCO USE 05/23/2018 KRISTENMAYURISRIKANTH Sabina INCIDENT RESPONSE ANALYST Ot J44.9 CHRONIC OBSTRUCTIVE PULMONARY DISEASE, U 05/23/2018 KRISTENMAYURISRIKANTH E INCIDENT RESPONSE ANALYST Ot J84.9 INTERSTITIAL PULMONARY DISEASE, UNSPECIF 05/23/2018 KRISTENMAYURISRIKANTH E INCIDENT RESPONSE ANALYST Ot Z72.0 TOBACCO USE 05/30/2018 KRISTENMAYURISRIKANTH E INCIDENT RESPONSE ANALYST Ot J44.9 CHRONIC OBSTRUCTIVE PULMONARY DISEASE, U 05/30/2018 KRISTENMAYURISRIKANTH E INCIDENT RESPONSE ANALYST Ot J84.9 INTERSTITIAL PULMONARY DISEASE, UNSPECIF 05/30/2018 KRISTENMAYURISRIKANTH E INCIDENT RESPONSE ANALYST Ot Z72.0 TOBACCO USE 06/06/2018 KRISTENMAYURISRIKANTH E INCIDENT RESPONSE ANALYST Ot J44.9 CHRONIC OBSTRUCTIVE PULMONARY DISEASE, U 06/06/2018 KRISTENMAYURI DIALINE E INCIDENT RESPONSE ANALYST Ot J84.9 INTERSTITIAL PULMONARY DISEASE, UNSPECIF 06/06/2018 KRISTENMAYURISRIKANTH Sabina INCIDENT RESPONSE ANALYST Ot Z72.0 TOBACCO USE 06/13/2018 KRISTENMAYURISRIKANTH Sabina INCIDENT RESPONSE ANALYST Ot J44.9 CHRONIC OBSTRUCTIVE PULMONARY DISEASE, U 06/13/2018 KRISTENMAYURISRIKANTH E INCIDENT RESPONSE ANALYST Ot J84.9 INTERSTITIAL PULMONARY DISEASE, UNSPECIF 06/13/2018 KRISTENMAYURISRIKANTH E INCIDENT RESPONSE ANALYST Ot Z72.0 TOBACCO USE 06/15/2018 KRISTENMAYURISRIKANTH E INCIDENT RESPONSE ANALYST Ot J44.9 CHRONIC OBSTRUCTIVE PULMONARY DISEASE, U 06/15/2018 KRISTENMAYURISRIKANTH E INCIDENT RESPONSE ANALYST Ot J84.9 INTERSTITIAL PULMONARY DISEASE, UNSPECIF 06/15/2018 KRISTEN, SRIKANTH E INCIDENT RESPONSE ANALYST Ot Z72.0 TOBACCO USE 06/16/2018 KRISTEN, SRIKANTH E INCIDENT RESPONSE ANALYST Ot J44.9 CHRONIC OBSTRUCTIVE PULMONARY DISEASE, U 06/16/2018 KRISTEN, SRIKANTH E INCIDENT RESPONSE ANALYST Ot J84.9 INTERSTITIAL PULMONARY DISEASE, UNSPECIF 06/16/2018 KRISTEN, SRIKANTH E INCIDENT RESPONSE ANALYST Ot Z72.0 TOBACCO USE 06/20/2018 KRISTEN, SRIKANTH E INCIDENT RESPONSE ANALYST Ot J44.9 CHRONIC OBSTRUCTIVE PULMONARY DISEASE, U 06/20/2018 KRISTEN, SRIKANTH E INCIDENT RESPONSE ANALYST Ot J84.9 INTERSTITIAL PULMONARY DISEASE, UNSPECIF 06/20/2018 KRISTEN, SRIKANTH E INCIDENT RESPONSE ANALYST Ot Z72.0 TOBACCO USE 06/20/2018 KRISTEN, SRIKANTH E INCIDENT RESPONSE ANALYST Ot J44.9 CHRONIC OBSTRUCTIVE PULMONARY DISEASE, U 06/20/2018 KRISTEN, SRIKANTH E INCIDENT RESPONSE ANALYST Ot J84.9 INTERSTITIAL PULMONARY DISEASE, UNSPECIF 06/20/2018 KRISTEN, SRIKANTH E INCIDENT RESPONSE ANALYST Ot Z72.0 TOBACCO USE 06/22/2018 KRISTEN SRIKANTH E INCIDENT RESPONSE ANALYST Ot J44.9 CHRONIC OBSTRUCTIVE PULMONARY DISEASE, U 06/22/2018 KRISTEN, SRIKANTH E INCIDENT RESPONSE ANALYST Ot J84.9 INTERSTITIAL PULMONARY DISEASE, UNSPECIF 06/22/2018 KRISTEN, SRIKANTH E INCIDENT RESPONSE ANALYST Ot Z72.0 TOBACCO USE 06/29/2018 KRISTEN, SRIKANTH E INCIDENT RESPONSE ANALYST Ot J44.9 CHRONIC OBSTRUCTIVE PULMONARY DISEASE, U 06/29/2018 KRISTEN, SRIKANTH E INCIDENT RESPONSE ANALYST Ot J84.9 INTERSTITIAL PULMONARY DISEASE, UNSPECIF 06/29/2018 KRISTEN SRIKANTH E INCIDENT RESPONSE ANALYST Ot Z72.0 TOBACCO USE 07/04/2018 KRISTEN SRIKANTH E INCIDENT RESPONSE ANALYST Ot J44.9 CHRONIC OBSTRUCTIVE PULMONARY DISEASE, U 07/04/2018 KRISTEN, SRIKANTH E INCIDENT RESPONSE ANALYST Ot J84.9 INTERSTITIAL PULMONARY DISEASE, UNSPECIF 07/04/2018 KRISTEN, SRIKANTH E INCIDENT RESPONSE ANALYST Ot Z72.0 TOBACCO USE 07/06/2018 KRISTEN, SRIKANTH E INCIDENT RESPONSE ANALYST Ot J44.9 CHRONIC OBSTRUCTIVE PULMONARY DISEASE, U 07/06/2018 KRISTEN, SRIKANTH E INCIDENT RESPONSE ANALYST Ot J84.9 INTERSTITIAL PULMONARY DISEASE, UNSPECIF 07/06/2018 KRISTEN, SRIKANTH E INCIDENT RESPONSE ANALYST Ot Z72.0 TOBACCO USE 07/09/2018 KRISTEN SRIKANTH E INCIDENT RESPONSE ANALYST Ot J44.9 CHRONIC OBSTRUCTIVE PULMONARY DISEASE, U 07/09/2018 KRISTEN, SRIKANTH E INCIDENT RESPONSE ANALYST Ot J84.9 INTERSTITIAL PULMONARY DISEASE, UNSPECIF 07/09/2018 KRISTEN, SRIKANTH E INCIDENT RESPONSE ANALYST Ot Z72.0 TOBACCO USE 07/10/2018 KRISTEN, SRIKANTH E INCIDENT RESPONSE ANALYST Ot J44.9 CHRONIC OBSTRUCTIVE PULMONARY DISEASE, U 07/10/2018 KRISTEN, SRIKANTH E INCIDENT RESPONSE ANALYST Ot J84.9 INTERSTITIAL PULMONARY DISEASE, UNSPECIF 07/10/2018 KRISTEN, SRIKANTH E INCIDENT RESPONSE ANALYST Ot Z72.0 TOBACCO USE 07/13/2018 KRISTEN, SRIKANTH E INCIDENT RESPONSE ANALYST Ot J44.9 CHRONIC OBSTRUCTIVE PULMONARY DISEASE, U 07/13/2018 KRISTEN, SRIKANTH E INCIDENT RESPONSE ANALYST Ot J84.9 INTERSTITIAL PULMONARY DISEASE, UNSPECIF 07/13/2018 KRISTEN, SRIKANTH E INCIDENT RESPONSE ANALYST Ot Z72.0 TOBACCO USE 07/25/2018 KRISTEN, SRIKANTH E INCIDENT RESPONSE ANALYST Ot J44.9 CHRONIC OBSTRUCTIVE PULMONARY DISEASE, U 07/25/2018 KRISTEN SRIKANTH E INCIDENT RESPONSE ANALYST Ot J84.9 INTERSTITIAL PULMONARY DISEASE, UNSPECIF 07/25/2018 KRISTEN, SRIKANTH E INCIDENT RESPONSE ANALYST Ot Z72.0 TOBACCO USE 07/27/2018 KRISTEN, SRIKANTH E INCIDENT RESPONSE ANALYST Ot J44.9 CHRONIC OBSTRUCTIVE PULMONARY DISEASE, U 07/27/2018 KRISTEN, SRIKANTH E INCIDENT RESPONSE ANALYST Ot J84.9 INTERSTITIAL PULMONARY DISEASE, UNSPECIF 07/27/2018 KRISTEN, SRIKANTH E INCIDENT RESPONSE ANALYST Ot Z72.0 TOBACCO USE 07/27/2018 KRISTEN, SRIKANTH E INCIDENT RESPONSE ANALYST Ot J44.9 CHRONIC OBSTRUCTIVE PULMONARY DISEASE, U 07/27/2018 KRISTEN SRIKANTH E INCIDENT RESPONSE ANALYST Ot J84.9 INTERSTITIAL PULMONARY DISEASE, UNSPECIF 07/27/2018 KRISTEN, SRIKANTH E INCIDENT RESPONSE ANALYST Ot Z72.0 TOBACCO USE 08/01/2018 KRISTEN, SRIKANTH E INCIDENT RESPONSE ANALYST Ot J44.9 CHRONIC OBSTRUCTIVE PULMONARY DISEASE, U 08/01/2018 KRISTEN, SRIKANTH E INCIDENT RESPONSE ANALYST Ot J84.9 INTERSTITIAL PULMONARY DISEASE, UNSPECIF 08/01/2018 KRISTEN, SRIKANTH E INCIDENT RESPONSE ANALYST Ot Z72.0 TOBACCO USE 08/03/2018 KRISTEN, SRIKANTH E INCIDENT RESPONSE ANALYST Ot J44.9 CHRONIC OBSTRUCTIVE PULMONARY DISEASE, U 08/03/2018 KRISTEN, SRIKANTH E INCIDENT RESPONSE ANALYST Ot J84.9 INTERSTITIAL PULMONARY DISEASE, UNSPECIF 08/03/2018 KRISTEN, SRIKANTH E INCIDENT RESPONSE ANALYST Ot Z72.0 TOBACCO USE 08/08/2018 KRISTEN, SRIKANTH E INCIDENT RESPONSE ANALYST Ot J44.9 CHRONIC OBSTRUCTIVE PULMONARY DISEASE, U 08/08/2018 KRISTEN, SRIKANTH E INCIDENT RESPONSE ANALYST Ot J84.9 INTERSTITIAL PULMONARY DISEASE, UNSPECIF 08/08/2018 KRISTEN, SRIKANTH E INCIDENT RESPONSE ANALYST Ot Z72.0 TOBACCO USE 08/10/2018 KRISTEN, SRIKANTH E INCIDENT RESPONSE ANALYST Ot J44.9 CHRONIC OBSTRUCTIVE PULMONARY DISEASE, U 08/10/2018 KRISTEN, SRIKANTH E INCIDENT RESPONSE ANALYST Ot J84.9 INTERSTITIAL PULMONARY DISEASE, UNSPECIF 08/10/2018 KRISTEN, SRIKANTH E INCIDENT RESPONSE ANALYST Ot Z72.0 TOBACCO USE 08/15/2018 KRISTEN, SRIKANTH E INCIDENT RESPONSE ANALYST Ot J44.9 CHRONIC OBSTRUCTIVE PULMONARY DISEASE, U 08/15/2018 KRISTEN, SRIKANTH E INCIDENT RESPONSE ANALYST Ot J84.9 INTERSTITIAL PULMONARY DISEASE, UNSPECIF 08/15/2018 KRISTEN, SRIKANTH E INCIDENT RESPONSE ANALYST Ot Z72.0 TOBACCO USE 08/17/2018 KRISTEN, SRIKANTH E INCIDENT RESPONSE ANALYST Ot J44.9 CHRONIC OBSTRUCTIVE PULMONARY DISEASE, U 08/17/2018 KRISTEN, RSIKANTH E INCIDENT RESPONSE ANALYST Ot J84.9 INTERSTITIAL PULMONARY DISEASE, UNSPECIF 08/17/2018 KRISTEN, SRIKANTH E INCIDENT RESPONSE ANALYST Ot Z72.0 TOBACCO USE 08/22/2018 KRISTEN, SRIKANTH E INCIDENT RESPONSE ANALYST Ot J44.9 CHRONIC OBSTRUCTIVE PULMONARY DISEASE, U 08/22/2018 KRISTEN, SRIKANTH E INCIDENT RESPONSE ANALYST Ot J84.9 INTERSTITIAL PULMONARY DISEASE, UNSPECIF 08/22/2018 KRISTEN, SRIKANTH E INCIDENT RESPONSE ANALYST Ot Z72.0 TOBACCO USE 08/24/2018 KRISTEN, SRIKANTH E INCIDENT RESPONSE ANALYST Ot J44.9 CHRONIC OBSTRUCTIVE PULMONARY DISEASE, U 08/24/2018 KRISTEN, SRIKANTH E INCIDENT RESPONSE ANALYST Ot J84.9 INTERSTITIAL PULMONARY DISEASE, UNSPECIF 08/24/2018 KRISTEN SRIKANTH E INCIDENT RESPONSE ANALYST Ot Z72.0 TOBACCO USE 09/01/2018 ELMER FLOREZ MD Ot J44.9 CHRONIC OBSTRUCTIVE PULMONARY DISEASE, U 09/01/2018 ELMER FLOREZ MD Ot R41.82 ALTERED MENTAL STATUS, UNSPECIFIED 09/01/2018 ELMER FLOREZ MD Ot R53.1 WEAKNESS 09/05/2018 SRIKANTH PETERSON INCIDENT RESPONSE ANALYST Ot J44.9 CHRONIC OBSTRUCTIVE PULMONARY DISEASE, U 09/05/2018 SRIKANTH PETERSON INCIDENT RESPONSE ANALYST Ot J84.9 INTERSTITIAL PULMONARY DISEASE, UNSPECIF 09/05/2018 SRIKANTH PETERSON INCIDENT RESPONSE ANALYST Ot Z72.0 TOBACCO USE 09/07/2018 SRIKANTH PETERSON INCIDENT RESPONSE ANALYST Ot J44.9 CHRONIC OBSTRUCTIVE PULMONARY DISEASE, U 09/07/2018 SRIKANTH PETERSON INCIDENT RESPONSE ANALYST Ot J84.9 INTERSTITIAL PULMONARY DISEASE, UNSPECIF 09/07/2018 SRIKANTH PETERSON INCIDENT RESPONSE ANALYST Ot Z72.0 TOBACCO USE 09/21/2018 IJEOMA CULLEN FACC, DAGO FACP CCDS Ot E78.5 HYPERLIPIDEMIA, UNSPECIFIED 09/21/2018 IJEOMA CULLEN FACC, DAGO FACP CCDS Ot F17.210 NICOTINE DEPENDENCE, CIGARETTES, UNCOMPL 09/21/2018 IJEOMA CULLEN FACC, ALI FACP CCDS Ot G47.33 OBSTRUCTIVE SLEEP APNEA (ADULT) (PEDIATR 09/21/2018 IJEOMA CULLEN FACC, DAGO FACP CCDS Ot 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 KDNY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 09/21/2018 IJEOMA CULLEN FACC, DAGO FACP CCDS Ot I25.10 ATHSCL HEART DISEASE OF [place] CORONARY 09/21/2018 IJEOMA CULELN FACC, DAGO FACP CCDS Ot I50.31 ACUTE DIASTOLIC (CONGESTIVE) HEART FAILU 09/21/2018 IJEOMA CULLEN FACC, DAGO FACP CCDS Ot I65.23 OCCLUSION AND STENOSIS OF BILATERAL [place] 09/21/2018 IJEOMA CULLEN FACC, DAGO FACP CCDS Ot I70.213 ATHSCL [place] ARTERIES OF EXTRM W INTRMT 09/21/2018 IJEOMA CULLEN FACC, ALI FACP CCDS Ot I71.4 ABDOMINAL AORTIC ANEURYSM, WITHOUT RUPTU 09/21/2018 IJEOMA CULLEN FACC, ALI FACP CCDS Ot J43.9 EMPHYSEMA, UNSPECIFIED 09/21/2018 IJEOMA CULLEN FACC, ALI FACP CCDS Ot K21.9 GASTRO-ESOPHAGEAL REFLUX DISEASE WITHOUT 09/21/2018 IJEOMA CULLEN FACC, ALI FACP CCDS Ot N18.3 CHRONIC KIDNEY DISEASE, STAGE 3 (MODERAT 09/21/2018 IJEOMA CULLEN FACC, ALI FACP CCDS Ot Z79.82 SENIOR CARE (CURRENT) USE OF ASPIRIN 09/21/2018 DAGO RAPHAEL MD, FACC, FACP CCDS Ot Z79.899 OTHER PATTERN DRUM MAKER (CURRENT) DRUG THERAPY 09/21/2018 DAGO RAPHAEL MD, FACC, FACP CCDS Ot Z95.5 PRESENCE OF CORONARY ANGIOPLASTY IMPLANT 09/21/2018 DAGO RAPHAEL MD, FACC, FACP CCDS Ot Z95.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 09/22/2018 ELMER FLOREZ MD, Ot J44.9 CHRONIC OBSTRUCTIVE PULMONARY DISEASE, U 09/22/2018 ELMER FLOREZ MD, Ot R41.82 ALTERED MENTAL STATUS, UNSPECIFIED 09/22/2018 ELMER FLOREZ MD, Ot R53.1 WEAKNESS Procedures There is no data. Results Test Result Range Automated blood complete blood count (hemogram) panel - 05/18/16 07:26 Blood leukocytes automated count (number/volume) 7.0 10*3/uL 4.3-11.0 Blood erythrocytes automated count (number/volume) 4.78 10*6/uL 4.35-5.85 Venous blood hemoglobin measurement (mass/volume) 17.0 g/dL 13.3-17.7 Blood hematocrit (volume fraction) 49 % 40-54 Automated erythrocyte mean corpuscular volume 102 [foz_us] 80-99 Automated erythrocyte mean corpuscular hemoglobin (mass per erythrocyte) 36 pg 25-34 Automated erythrocyte mean corpuscular hemoglobin concentration measurement (mass/volume) 35 g/dL 32-36 Automated erythrocyte distribution width ratio 13.2 % 10.0- 14.5 Automated blood platelet count (count/volume) 222 10*3/uL 130-400 Automated blood platelet mean volume measurement 10.8 [foz_us] 7.4-10.4 PT panel in platelet poor plasma by coagulation assay - 05/18/16 07:26 Prothrombin time (PT) in platelet poor plasma by coagulation assay 12.5 s 12.2-14.7 INR in platelet poor plasma or blood by coagulation assay 1.0 0.8-1.4 Activated partial thromboplastin time (aPTT) in platelet poor plasma bycoagulation assay - 05/18/16 07:26 Activated partial thromboplastin time (aPTT) in platelet poor plasma bycoagulation assay 28 s 24-35 Comprehensive metabolic panel - 05/18/16 07:26 Serum or plasma sodium measurement (moles/volume) 139 mmol/L 135-145 Serum or plasma potassium measurement (moles/volume) 3.0 mmol/L 3.6-5.0 Serum or plasma chloride measurement (moles/volume) 92 mmol/L 98-107 Carbon dioxide 34 mmol/L 21-32 Serum or plasma anion gap determination (moles/volume) 13 mmol/L 5-14 Serum or plasma urea nitrogen measurement (mass/volume) 7 mg/dL 7-18 Serum or plasma creatinine measurement (mass/volume) 1.17 mg/dL 0.60-1.30 Serum or plasma urea nitrogen/creatinine mass ratio 6 NRG Serum or plasma creatinine measurement with calculation of estimated glomerular filtration rate > NRG Serum or plasma glucose measurement (mass/volume) 109 mg/dL 70-105 Serum or plasma calcium measurement (mass/volume) 9.1 mg/dL 8.5-10.1 Serum or plasma total bilirubin measurement (mass/volume) 0.8 mg/dL 0.1-1.0 Serum or plasma alkaline phosphatase measurement (enzymatic activity/volume) 112 U/L 40-136 Serum or plasma aspartate aminotransferase measurement (enzymatic activity/volume) 25 U/L 5-34 Serum or plasma alanine aminotransferase measurement (enzymatic activity/volume) 14 U/L 0-55 Serum or plasma protein measurement (mass/volume) 7.4 g/dL 6.4-8.2 Serum or plasma albumin measurement (mass/volume) 4.0 g/dL 3.2-4.5 Lipid 1996 panel - 05/18/16 07:26 Serum or plasma triglyceride measurement (mass/volume) 208 mg/dL <150 Serum or plasma cholesterol measurement (mass/volume) 195 mg/dL < 200 Serum or plasma cholesterol in HDL measurement (mass/volume) 41 mg/dL 40-60 Cholesterol in LDL [mass/volume] in serum or plasma by direct assay 127 mg/dL 1-129 Serum or plasma cholesterol in VLDL measurement (mass/volume) 42 mg/dL 5-40 Methicillin resistant Staphylococcus aureus (MRSA) screening culture - 05/18/16 07:26 Methicillin resistant Staphylococcus aureus (MRSA) screening culture NEG NRG Automated blood complete blood count (hemogram) panel - 05/19/16 04:02 Blood leukocytes automated count (number/volume) 4.1 10*3/uL 4.3-11.0 Blood erythrocytes automated count (number/volume) 3.99 10*6/uL 4.35-5.85 Venous blood hemoglobin measurement (mass/volume) 14.5 g/dL 13.3-17.7 Blood hematocrit (volume fraction) 40 % 40-54 Automated erythrocyte mean corpuscular volume 101 [foz_us] 80-99 Automated erythrocyte mean corpuscular hemoglobin (mass per erythrocyte) 36 pg 25-34 Automated erythrocyte mean corpuscular hemoglobin concentration measurement (mass/volume) 36 g/dL 32-36 Automated erythrocyte distribution width ratio 13.0 % 10.0- 14.5 Automated blood platelet count (count/volume) 134 10*3/uL 130-400 Automated blood platelet mean volume measurement 11.3 [foz_us] 7.4-10.4 Whole blood basic metabolic panel - 05/19/16 04:02 Serum or plasma sodium measurement (moles/volume) 136 mmol/L 135-145 Serum or plasma potassium measurement (moles/volume) 2.8 mmol/L 3.6-5.0 Serum or plasma chloride measurement (moles/volume) 96 mmol/L 98-107 Carbon dioxide 29 mmol/L 21-32 Serum or plasma anion gap determination (moles/volume) 11 mmol/L 5-14 Serum or plasma urea nitrogen measurement (mass/volume) 8 mg/dL 7-18 Serum or plasma creatinine measurement (mass/volume) 0.91 mg/dL 0.60-1.30 Serum or plasma urea nitrogen/creatinine mass ratio 9 NRG Serum or plasma creatinine measurement with calculation of estimated glomerular filtration rate > NRG Serum or plasma glucose measurement (mass/volume) 96 mg/dL 70-105 Serum or plasma calcium measurement (mass/volume) 8.3 mg/dL 8.5-10.1 Whole blood basic metabolic panel - 05/24/16 09:54 Serum or plasma sodium measurement (moles/volume) 138 mmol/L 135-145 Serum or plasma potassium measurement (moles/volume) 3.3 mmol/L 3.6-5.0 Serum or plasma chloride measurement (moles/volume) 97 mmol/L 98-107 Carbon dioxide 26 mmol/L 21-32 Serum or plasma anion gap determination (moles/volume) 15 mmol/L 5-14 Serum or plasma urea nitrogen measurement (mass/volume) 6 mg/dL 7-18 Serum or plasma creatinine measurement (mass/volume) 1.07 mg/dL 0.60-1.30 Serum or plasma urea nitrogen/creatinine mass ratio 6 NRG Serum or plasma creatinine measurement with calculation of estimated glomerular filtration rate > NRG Serum or plasma glucose measurement (mass/volume) 110 mg/dL 70-105 Serum or plasma calcium measurement (mass/volume) 8.9 mg/dL 8.5-10.1 Magnesium - 05/24/16 09:54 Magnesium 1.5 mg/dL 1.8-2.4 Sputum Gram stain - 03/23/18 08:30 Sputum Gram stain 03-24-2018, 0605. NRG Bacteria identification in bronchial specimen by aerobe culture - 03/23/18 08:30 QUANTITY OF GROWTH . NRG Bacteria identification in bronchial specimen by aerobe culture USUAL ORAL NRG FTX;REPORTABLE 2,000 CFU/ML NRG C FUNGUS SPUTUM FLUID TISSUE - 03/23/18 08:30 C FUNGUS SPUTUM FLUID TISSUE NG NRG Mycobacterium species detection by organism specific culture - 03/23/18 08:30 QUANTITY OF GROWTH . NRG Mycobacterium species detection by organism specific culture SEE COMMEN NRG Sputum Gram stain - 03/23/18 08:31 Sputum Gram stain 03-24-2018, 1005. NRG Bacteria identification in bronchial specimen by aerobe culture - 03/23/18 08:31 Bacteria identification in bronchial specimen by aerobe culture NG NRG C FUNGUS SPUTUM FLUID TISSUE - 03/23/18 08:31 C FUNGUS SPUTUM FLUID TISSUE NG NRG Mycobacterium species detection by organism specific culture - 03/23/18 08:31 QUANTITY OF GROWTH . NRG Mycobacterium species detection by organism specific culture SEE COMMEN NRG C FUNGUS SPUTUM FLUID TISSUE - 03/23/18 08:32 C FUNGUS SPUTUM FLUID TISSUE NG NRG Complete blood count (CBC) with automated white blood cell (WBC) differential - 08/30/18 10:00 Blood leukocytes automated count (number/volume) 5.4 10*3/uL 4.3-11.0 Blood erythrocytes automated count (number/volume) 3.72 10*6/uL 4.35-5.85 Venous blood hemoglobin measurement (mass/volume) 14.1 g/dL 13.3-17.7 Blood hematocrit (volume fraction) 41 % 40-54 Automated erythrocyte mean corpuscular volume 109 [foz_us] 80-99 Automated erythrocyte mean corpuscular hemoglobin (mass per erythrocyte) 38 pg 25-34 Automated erythrocyte mean corpuscular hemoglobin concentration measurement (mass/volume) 35 g/dL 32-36 Automated erythrocyte distribution width ratio 17.1 % 10.0- 14.5 Automated blood platelet count (count/volume) 110 10*3/uL 130-400 Automated blood platelet mean volume measurement 11.1 [foz_us] 7.4-10.4 Automated blood neutrophils/100 leukocytes 63 % 42-75 Automated blood lymphocytes/100 leukocytes 21 % 12-44 Blood monocytes/100 leukocytes 13 % 0-12 Automated blood eosinophils/100 leukocytes 3 % 0-10 Automated blood basophils/100 leukocytes 1 % 0-10 Blood neutrophils automated count (number/volume) 3.4 10*3 1.8-7.8 Blood lymphocytes automated count (number/volume) 1.1 10*3 1.0-4.0 Blood monocytes automated count (number/volume) 0.7 10*3 0.0- 1.0 Automated eosinophil count 0.2 10*3/uL 0.0-0.3 Automated blood basophil count (count/volume) 0.0 10*3/uL 0.0-0.1 Comprehensive metabolic panel - 08/30/18 10:00 Serum or plasma sodium measurement (moles/volume) 137 mmol/L 135-145 Serum or plasma potassium measurement (moles/volume) 4.2 mmol/L 3.6-5.0 Serum or plasma chloride measurement (moles/volume) 100 mmol/L 98-107 Carbon dioxide 27 mmol/L 21-32 Serum or plasma anion gap determination (moles/volume) 10 mmol/L 5-14 Serum or plasma urea nitrogen measurement (mass/volume) 6 mg/dL 7-18 Serum or plasma creatinine measurement (mass/volume) 0.90 mg/dL 0.60-1.30 Serum or plasma urea nitrogen/creatinine mass ratio 7 NRG Serum or plasma creatinine measurement with calculation of estimated glomerular filtration rate > NRG Serum or plasma glucose measurement (mass/volume) 119 mg/dL 70-105 Serum or plasma calcium measurement (mass/volume) 9.3 mg/dL 8.5-10.1 Serum or plasma total bilirubin measurement (mass/volume) 2.1 mg/dL 0.1-1.0 Serum or plasma alkaline phosphatase measurement (enzymatic activity/volume) 117 U/L 40-136 Serum or plasma aspartate aminotransferase measurement (enzymatic activity/volume) 67 U/L 5-34 Serum or plasma alanine aminotransferase measurement (enzymatic activity/volume) 35 U/L 0-55 Serum or plasma protein measurement (mass/volume) 6.7 g/dL 6.4-8.2 Serum or plasma albumin measurement (mass/volume) 3.6 g/dL 3.2-4.5 CALCIUM CORRECTED 9.6 mg/dL 8.5-10.1 Ammonia - 08/30/18 10:00 Ammonia 26 umol/L 11-32 Arterial blood gas measurement - 08/30/18 10:22 Blood pCO2 37 mm[Hg] 35-45 Blood pO2 104 mm[Hg] 79-93 Arterial blood bicarbonate measurement (moles/volume) 25 mmol/L 23-27 Arterial blood base excess by calculation 1.5 mmol/L -2.5-2.5 Arterial blood oxygen saturation measurement 99 % 94-100 * Inhaled oxygen flow rate 2 NRG Arterial blood pH measurement with patient temperature correction 7.44 7.37-7.43 Arterial blood carbon dioxide, total measurement (moles/volume) 26.6 mmol/L 21.0-31.0 Body site R RAD NRG Assessment of wrist artery patency prior to arterial puncture YES-POS NRG Setting of ventilation mode NO NRG Measurement of body temperature 97.1 NRG Automated blood complete blood count (hemogram) panel - 09/19/18 07:26 Blood leukocytes automated count (number/volume) 8.5 10*3/uL 4.3-11.0 Blood erythrocytes automated count (number/volume) 3.81 10*6/uL 4.35-5.85 Venous blood hemoglobin measurement (mass/volume) 14.9 g/dL 13.3-17.7 Blood hematocrit (volume fraction) 41 % 40-54 Automated erythrocyte mean corpuscular volume 108 [foz_us] 80-99 Automated erythrocyte mean corpuscular hemoglobin (mass per erythrocyte) 39 pg 25-34 Automated erythrocyte mean corpuscular hemoglobin concentration measurement (mass/volume) 36 g/dL 32-36 Automated erythrocyte distribution width ratio 15.1 % 10.0- 14.5 Automated blood platelet count (count/volume) 171 10*3/uL 130-400 Automated blood platelet mean volume measurement 11.1 [foz_us] 7.4-10.4 PT panel in platelet poor plasma by coagulation assay - 09/19/18 07:26 Prothrombin time (PT) in platelet poor plasma by coagulation assay 14.4 s 12.2-14.7 INR in platelet poor plasma or blood by coagulation assay 1.1 0.8-1.4 Activated partial thromboplastin time (aPTT) in platelet poor plasma bycoagulation assay - 09/19/18 07:26 Activated partial thromboplastin time (aPTT) in platelet poor plasma bycoagulation assay 33 s 24-35 Comprehensive metabolic panel - 09/19/18 07:26 Serum or plasma sodium measurement (moles/volume) 135 mmol/L 135-145 Serum or plasma potassium measurement (moles/volume) 3.8 mmol/L 3.6-5.0 Serum or plasma chloride measurement (moles/volume) 98 mmol/L 98-107 Carbon dioxide 25 mmol/L 21-32 Serum or plasma anion gap determination (moles/volume) 12 mmol/L 5-14 Serum or plasma urea nitrogen measurement (mass/volume) 5 mg/dL 7-18 Serum or plasma creatinine measurement (mass/volume) 1.07 mg/dL 0.60-1.30 Serum or plasma urea nitrogen/creatinine mass ratio 5 NRG Serum or plasma creatinine measurement with calculation of estimated glomerular filtration rate > NRG Serum or plasma glucose measurement (mass/volume) 129 mg/dL 70-105 Serum or plasma calcium measurement (mass/volume) 9.3 mg/dL 8.5-10.1 Serum or plasma total bilirubin measurement (mass/volume) 1.2 mg/dL 0.1-1.0 Serum or plasma alkaline phosphatase measurement (enzymatic activity/volume) 121 U/L 40-136 Serum or plasma aspartate aminotransferase measurement (enzymatic activity/volume) 55 U/L 5-34 Serum or plasma alanine aminotransferase measurement (enzymatic activity/volume) 28 U/L 0-55 Serum or plasma protein measurement (mass/volume) 7.3 g/dL 6.4-8.2 Serum or plasma albumin measurement (mass/volume) 3.7 g/dL 3.2-4.5 CALCIUM CORRECTED 9.5 mg/dL 8.5-10.1 Lipid 1996 panel - 09/19/18 07:26 Serum or plasma triglyceride measurement (mass/volume) 138 mg/dL <150 Serum or plasma cholesterol measurement (mass/volume) 154 mg/dL < 200 Serum or plasma cholesterol in HDL measurement (mass/volume) 38 mg/dL 40-60 Cholesterol in LDL [mass/volume] in serum or plasma by direct assay 100 mg/dL 1-129 Serum or plasma cholesterol in VLDL measurement (mass/volume) 28 mg/dL 5-40 Methicillin resistant Staphylococcus aureus (MRSA) screening culture - 09/19/18 07:26 Methicillin resistant Staphylococcus aureus (MRSA) screening culture NEG NRG Encounters ACCT No. Visit Date/Time Discharge Status Pt. Type Provider Facility Loc./Unit Complaint [id number] 05/07/2014 14:50:00 05/07/2014 23:59:00 DIS Outpatient Sondra Grant [facility] [place] [facility] results [id number] 09/19/2018 06:52:00 09/19/2018 13:00:00 DIS Outpatient IJEOMA CULLEN FACC, DAGO CLAY CCDS [facility] CATH CAD,HL,CKD STAGE 3,PAD,TOBACCO USER,CHEST DISCOMFO [id number] 09/07/2018 10:00:00 09/07/2018 23:59:59 CLS Outpatient SRIKANTH PETERSON APRN [facility] PUL ADVANCED COPD,INTERSTITIAL LUNG DISEASE [id number] 08/30/2018 09:53:00 08/30/2018 23:59:59 CLS Outpatient ELMER FLOREZ MD [facility] RT WEAKNESS,COPD [id number] 07/04/2018 10:00:00 07/09/2018 00:01:00 DIS Outpatient SRIKANTH PETERSON APRN [facility] PULM ADVANCED COPD,INTERSTITIAL LUNG DISEASE [id number] 03/23/2018 07:13:00 03/23/2018 23:59:59 CLS Outpatient TANMAY MAI DO [facility] ENDO INTERSTITIAL LUNG DISEASE [id number] 03/20/2018 05:51:00 03/20/2018 16:07:00 DIS Outpatient TANMAY MAI DO [facility] PREOP BRONCHOSCOPY [id number] 03/07/2018 09:14:00 03/07/2018 23:59:59 CLS Outpatient SRIKANTH PETERSON APRN [facility] RAD B37.0,Z72.0 [id number] 03/01/2018 15:03:00 03/01/2018 23:59:59 CLS Outpatient SRIKANTH PETERSON APRN [facility] RAD PLEURAL EFFUSION,LUNG NODULES. [id number] 12/28/2017 16:05:00 12/28/2017 23:59:59 CLS Outpatient SRIKANTH PETERSON INCIDENT RESPONSE ANALYST [facility] RT J84.10 PULMONARY FIBROSIS [id number] 12/22/2017 08:50:00 12/22/2017 23:59:59 CLS Outpatient GAUTAM CULLEN, ELMER Rodriges [facility] RAD ELEVATED TOTAL BILIRUBIN,EPIGASTRIC PAIN [id number] 12/21/2017 13:25:00 12/21/2017 23:59:59 CLS Preadmit SRIKANTH PETERSON APRN [facility] RAD R06.00 DYSPNEA [id number] 12/12/2017 13:35:00 12/12/2017 23:59:59 CLS Outpatient TANMAY MAI DO [facility] RAD ADVANCED COPD [id number] 06/14/2017 11:06:00 06/14/2017 23:59:59 CLS Outpatient SRIKANTH PETERSON APRN [facility] RAD R91.8 LUNG NODULES [id number] 12/15/2016 10:53:00 12/15/2016 23:59:59 CLS Outpatient SRIKANTH PETERSON APRN [facility] RAD R91.1 LUNG NODULE SEEN ON IMAGING STUDY [id number] 12/13/2016 09:44:00 12/13/2016 23:59:59 CLS Outpatient BARNEY KINSEY [facility] LAB I25.10 N18.3 [id number] 08/09/2016 08:27:00 08/09/2016 23:59:59 CLS Outpatient IJEOMA CULLEN FACC, DAGO CLAY CCDS [facility] LAB PAD,CAD,HYPERTENSION,CKD,HYPERLIPIDEMIA [id number] 06/24/2016 20:55:00 06/25/2016 06:00:00 DIS Outpatient TANMAY MAI DO [facility] SLEEP PARASOMNIA,SLEEP DISTURBANCE,HYPERSOMNIA,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 [id number] 06/07/2016 08:41:00 06/07/2016 23:59:59 CLS Outpatient BARNEY KINSEY CHEMICAL LIBRARIAN [facility] LAB HYPOKALEMIA [id number] 06/07/2016 08:35:00 06/07/2016 23:59:59 CLS Outpatient TANMAY MAI DO [facility] RAD ADVNACED COPD,CHF [id number] 05/25/2016 11:22:00 05/25/2016 23:59:59 CLS Outpatient DAGO RAPHAEL MD, FACC FACP CCDS [facility] RAD PAD [id number] 05/24/2016 09:45:00 05/24/2016 23:59:59 CLS Outpatient BARNEY KINSEY L CHEMICAL LIBRARIAN [facility] LAB HYPOKALEMIA,HYPOMAGNESEMIA [id number] 05/21/2016 12:12:00 05/21/2016 23:59:59 CLS Outpatient BARNEY KINSEY L CHEMICAL LIBRARIAN [facility] LAB HYPOKALEMIA [id number] 05/18/2016 06:57:00 05/19/2016 10:55:00 DIS Outpatient DAGO RAPHAEL MD, FACC FACP CCDS [facility] CATH CHF,HTN,TOBACCO USER [id number] 05/14/2016 10:11:00 05/14/2016 23:59:59 CLS Outpatient DAGO RAPHAEL MD, FACC FACP CCDS [facility] CARD ACUTE DIASTOLIC CHF, HYERTENSION, ADVANCED COPD [id number] 05/12/2016 11:35:00 05/12/2016 23:59:59 CLS Outpatient DAGO RAPHAEL MD, FACC FACP CCDS [facility] RT ACUTE DIASTOLIC CHF, HYPERTENSION, ADVANCED COPD [id number] 05/11/2016 10:15:00 05/11/2016 23:59:59 CLS Preadmit IJEOMA CULLEN FACC ALI FACP CCDS [facility] RAD ACUTE DIASTOLIC CHF, HYPERTENSION, ADVANCED COPD [id number] 11/04/2015 08:26:00 11/04/2015 23:59:59 CLS Outpatient BARNEY KINSEY [facility] CARD HTN,PAD,CAD [id number] 10/02/2018 09:45:00 PEN Preadmit SRIKANTH PETERSON APRN [facility] RAD LUNG NODULES [id number] 09/29/2018 08:45:00 PEN Preadmit ELMER FLOREZ MD [facility] ENDO NAUSEA/VOMITING/EPIGASTRIC PAIN [id number] 09/27/2018 06:14:00 ACT Outpatient ELMER FLOREZ MD [facility] PREOP EGD [id number] 03/10/2018 11:53:00 Document Registration
--- NOTE | 2018-09-29 16:24 | OPERATIVE REPORT ---
DATE OF SERVICE: 09/29/2018 EGD SUMMARY PRIMARY CARE PHYSICIAN: Elmer Florez MD INDICATION FOR THE PROCEDURE: Nausea, vomiting, epigastric pain. The patient was placed in the left lateral decubitus position. The endoscope was inserted in the oral cavity and under direct visualization, the esophagus was intubated. The endoscope was passed down the esophagus through the stomach and second portion of the duodenum. Careful inspection was made as the endoscope was withdrawn. The patient tolerated the procedure well. FINDINGS: The pharynx, hypopharynx, epiglottis, arytenoid aperture and true and false vocal folds were unremarkable. The esophagus was unremarkable say for a small sliding hiatal hernia without evidence for erosive esophagitis. There was diffuse erythema noted throughout the majority of the stomach, less prominent in the cardia with bilious fluid without any solid material noted in the stomach. There was no evidence for erosions or ulceration. Biopsy was obtained from the antrum and submitted for histopathology and Helicobacter evaluation. The pylorus, pyloric channel was unremarkable. Mild duodenitis was noted without evidence for duodenal ulceration noted in the first and second portion of the duodenum. A third portion was unremarkable. Usual villous pattern noted to gross inspection. ASSESSMENT: Diffuse gastritis is noted with a small hiatal hernia without evidence for erosive esophagitis. The patient has a long history of alcohol use disorder and discussed that findings were most compatible with alcoholic gastritis. No esophageal or gastric varices were noted. The patient with his present was told that he needed to abstain from drinking altogether and the symptoms will likely persist if he did not. In the meantime, he is to take Zofran for the next several days, half an hour before meals, stop aspirin and continue proton pump inhibitor therapy. Job ID: [id number] DocumentID: [id number] Dictated Date: 09/29/2018 10:01:55 Lamp Mechanic Date: 09/29/2018 16:24:24 Dictated By: ELMER FLOREZ MD
== END 2018-09-29 10:10 | disposition home or self-care (01) ==
LOC: ENDO 07:16
PROVIDERS: ATTEND Internal Medicine
DX: K29.70 Gastritis, unspecified, without bleeding (principal); K44.9 Diaphragmatic hernia without obstruction or gangrene; Z72.89 Other problems related to lifestyle; I25.10 Atherosclerotic heart disease of native coronary artery without angina pectoris; J44.9 Chronic obstructive pulmonary disease, unspecified; I10 Essential (primary) hypertension; R79.89 Other specified abnormal findings of blood chemistry; Z72.0 Tobacco use; Z79.02 Long term (current) use of antithrombotics/antiplatelets; Z79.82 Long term (current) use of aspirin
CPT/HCPCS: 88305

== ENCOUNTER → 2018-10-02 | Outpatient (CLI) | payer MEDICARE, OTHER ==
--- NOTE | 2018-10-02 11:00 | Diagnostic Imaging Report ---
PROCEDURE: CT chest without contrast. TECHNIQUE: Multiple contiguous axial images were obtained through the chest without the use of intravenous contrast. Auto Exposure Controls were utilized during the CT exam to meet ALARA standards for radiation dose reduction. INDICATION: Lung nodules FINDINGS: The previous CT chest exam of 03/10/2018 noted chronic interstitial pulmonary disease but failed to show any sign of an acute abnormality. On this study, prominent interstitial densities seen in both lungs are again evident and the interstitial densities do seem less prominent than on the prior study. In retrospect there may have been an element of mild pulmonary edema present on the prior exam. There is no increased parenchymal density to suggest an area of acute pneumonia and there is no sign of a pleural effusion. The previous CT chest exam of 03/01/2018 did note a 6-7 mm parenchymal nodule in the right middle lobe. That finding is again evident and unchanged in size or appearance (image #29 of [id number]). No other parenchymal lung mass is identified. The heart is enlarged but stable when compared to the prior exam. Dense coronary artery calcifications are again noted. The aorta is not abnormally dilated. There is no obvious mediastinal or hilar adenopathy. Thyroid gland is unremarkable. The sections through the upper abdomen fail to show any sign of an acute abnormality. The wall of the hepatic flexure and transverse colon does seem somewhat thickened. This may be secondary to incomplete distention. The possibility of colitis should also be considered. The bone window show no evidence for a fracture or for a destructive lesion. IMPRESSION: 1. The appearance of the chest has improved since the prior exam as the prior interstitial densities in both lungs noted previously are less striking on this study. In retrospect, there may be an element of mild pulmonary congestion present on the prior exam. There is no acute cardiopulmonary abnormality noted at this time. 2. The small nodular density in the right midlung seen previously is again evident and no different. This finding has been stable since 06/07/2016 consequently I suspect it is a benign process. Given the greater than two-year stability of this nodule, no further surveillance imaging is required. 3. There is cardiomegaly and coronary artery disease. 4. The thickened appearance of the wall of the splenic flexure and transverse colon may be secondary to incomplete distention as opposed to mild colitis. Clinical followup is recommended. Dictated by: Dictated on workstation # [id number]
== END ==
LOC: RAD 09:42
PROVIDERS: ATTEND Nurse Practitioner Family
DX: J98.4 Other disorders of lung (principal); I25.10 Atherosclerotic heart disease of native coronary artery without angina pectoris; I51.7 Cardiomegaly; K63.89 Other specified diseases of intestine; J84.9 Interstitial pulmonary disease, unspecified; B37.0 Candidal stomatitis; G47.10 Hypersomnia, unspecified; J90 Pleural effusion, not elsewhere classified; I50.31 Acute diastolic (congestive) heart failure; G47.33 Obstructive sleep apnea (adult) (pediatric); J44.9 Chronic obstructive pulmonary disease, unspecified; Z72.0 Tobacco use
CPT/HCPCS: 71250

== ENCOUNTER 2018-11-06 15:18 | Outpatient (RCR) | payer MEDICARE, OTHER ==
[~2018-11-06 15:18] MED LIST changes: -DEXT1DRO7 OP; +DEXT1DRO7 OU; -OMEP20CA12 PO; +OMEP20CA13 PO
[2018-11-16 09:30] VITALS: BP 132/62
[2018-11-21 09:20] VITALS: BP 150/60
[2018-11-21 10:20] VITALS: BP 140/63
[2018-11-28 09:22] VITALS: BP 140/60
[2018-11-28 10:15] VITALS: BP 130/50
[2018-12-05 09:30] VITALS: BP 142/60
[2018-12-05 10:45] VITALS: BP 150/60
[2018-12-07 09:30] VITALS: BP 160/60
[2018-12-07 10:45] VITALS: BP 170/80
[2018-12-12 09:30] VITALS: BP 140/68
[2018-12-12 10:00] VITALS: BP 152/70
[2018-12-19 09:25] VITALS: BP 140/60
[2018-12-19 10:00] VITALS: BP 127/80
[2018-12-26] MEDS ORDERED: METO-310 PO (13:49)
[2018-12-26] MEDS ORDERED: LIPA1CAP4 PO (15:00)
[2018-12-27] MEDS ORDERED: LISI-552 PO (13:25)
[2018-12-27] MEDS ORDERED: FOLI1TAB24 PO (13:25)
[2018-12-27] MEDS ORDERED: APIX5TAB PO (13:41)
[2018-12-27] MEDS ORDERED: PANT40TA2 PO (16:27)
[2019-01-08] MEDS ORDERED: MONT10TA24 PO (11:02)
[2019-01-08] MEDS ORDERED: APIX5TAB PO (11:02)
[2019-01-08] MEDS ORDERED: LORA10TA7 PO (11:02)
[2019-01-29] MEDS ORDERED: ASPI-999 PO (08:15)
[2019-01-29] MEDS ORDERED: MONT10TA24 PO (08:15)
[2019-01-29] MEDS ORDERED: AMLO5TAB9 PO (08:15)
[2019-01-29] MEDS ORDERED: RPN.25T PO (08:15)
[2019-01-29] MEDS ORDERED: LORA0.5T PO (08:15)
[2019-01-29] MEDS ORDERED: Multivitamins/Minerals Therap PO (08:15)
[2019-01-29] MEDS ORDERED: LORA10TA7 PO (08:15)
[2019-01-29] MEDS ORDERED: APIX2.5T PO (08:15)
[2019-01-29] MEDS ORDERED: ACHD5005 PO (08:15)
[2019-01-29] MEDS ORDERED: LEVA1.2543 INH (08:15)
[2019-01-29] MEDS ORDERED: LEVO750T39 PO (08:15)
[2019-01-29] MEDS ORDERED: POTA10TA6 PO (08:15)
[2019-01-29] MEDS ORDERED: METO-395 PO ×2 (08:15)
[2019-01-29] MEDS ORDERED: FURO40TA4 PO (08:15)
== END 2019-02-04 | disposition home or self-care (01) ==
LOC: PULM 15:18
PROVIDERS: ATTEND Internal Medicine
DX: J44.9 Chronic obstructive pulmonary disease, unspecified (principal)
CPT/HCPCS: 99211

== ENCOUNTER 2018-12-23 16:11 | Inpatient (IN) | payer MEDICARE, OTHER ==
[~2018-12-23] VITALS: Ht 182.9 cm; Wt 86.2 kg
[2018-12-23] VITALS (9 sets, daily range): BP systolic 122–143; BP diastolic 69–84
[2018-12-23] MEDS ORDERED: ONDANSETRON 4 MG/2 ML (SDV) Z0FRAN IVP ONE (16:30)
[2018-12-23] MEDS ORDERED: NS IV 1000 ML 1,000 ML IV SCH (16:30)
--- NOTE | 2018-12-23 16:32 | ED General ---
General Stated Complaint: WEAK,TROUBLE STANDING UP,N/D/ Source of Information: Patient Exam Limitations: No Limitations History of Present Illness Date Seen by Provider: Dec 23, 2018 Time Seen by Provider: 16:30 Initial Comments To ER with reports of generalized weakness. This is been getting progressively worse over the course of the past month. One month ago he was diagnosed with pancreatitis, has had a lot of nausea vomiting and diarrhea. No abdominal pain. Because of the nausea vomiting and abdominal pain he's been unable to drink much or eat much and has lost about 40 pounds. He attributes this pancreatitis to "drinking". He now drinks 1 glass of bourbon and Sprite daily and smokes 2 pack of cigarettes daily. He has smoked this much for many years. However he states that the alcohol use is "a lot less" than it was a month ago at the onset of the pancreatitis. However he is unable to quantify for me how much he was actually drinking prior to the development of pancreatitis. Primary care Dr. Macias. He denies fevers chills or abdominal pain. The weakness is global and not one side more than another or one extremity more than another. He states his primary care provider is Dr. Macias here in [place]. Timing/Duration: 1-2 Days Severity: Moderate Associated Systoms: Nausea/Vomiting, Weakness Allergies and Home Medications Allergies Coded Allergies: Sulfa (Sulfonamide Antibiotics) (Verified Allergy, Unknown, 05/18/16) meperidine (Verified Allergy, Unknown, 05/18/16) Home Medications Albuterol Sulfate 1 Puff Puff, 2 PUFF IH Q4H PRN for SHORTNESS OF BREATH, (Reported) 1 PUFF = 90 MCG Dextran 70/Hypromellose 1 Each Droperette, 1 EACH OP QID, (Reported) Furosemide 20 Mg Tablet, 20 MG PO DAILY, (Reported) Losartan Potassium 100 Mg Tablet, 100 MG PO DAILY, (Reported) Metoprolol Succinate 100 Mg Tab.er.24h, 100 MG PO DAILY, (Reported) Omeprazole 20 Mg Capsule.dr, 20 MG PO HS, (Reported) Potassium Chloride 10 Meq Capsule.er, 10 MEQ PO BID, (Reported) Tiotropium [place] 4 Gm Mist.inhal, 2 PUFF IH DAILY, (Reported) Patient Home Medication List Home Medication List Reviewed: Yes Review of Systems Review of Systems Constitutional: see HPI EENTM: see HPI Respiratory: no symptoms reported Cardiovascular: no symptoms reported Gastrointestinal: No abdominal pain; diarrhea, nausea Genitourinary: no symptoms reported Musculoskeletal: no symptoms reported Skin: no symptoms reported Psychiatric/Neurological: No Symptoms Reported Hematologic/Lymphatic: No Symptoms Reported Immunological/Allergic: no symptoms reported Past Mtesear-Wgqxwg-Jklysn Hx Patient Social History Alcohol Beverage of Choice: Whiskey Type Used: Cigarettes 2nd Hand Smoke Exposure: Yes Recent Foreign Travel: No Contact w/Someone Who Travel: No Recent Hopitalizations: No Immunizations Up To Date Tetanus Booster (TDap): Unknown Date of Pneumonia Vaccine: Feb 16, 2016 Date of Influenza Vaccine: Jan 23, 2018 Seasonal Allergies Seasonal Allergies: Yes Past Medical History Surgeries: Yes Coronary Stent, Gallbladder, Joint Replacement Respiratory: Yes Asthma, Sleep Apnea, COPD, Emphysema Currently Using CPAP: Yes Currently Using BIPAP: No Cardiac: Yes Coronary Artery Disease, Hypertension Neurological: No Sexually Transmitted Disease: No HIV/AIDS: No Genitourinary: No Kidney Stones Gastrointestinal: Yes Gastroesophageal Reflux Musculoskeletal: Yes Arthritis Endocrine: No HEENT: No Cancer: No Skin What Type of Treatment Did You: Surgical Intervention Psychosocial: No Integumentary: No Blood Disorders: No Adverse Reaction/Blood Tranf: No Physical Exam Vital Signs Vital Signs - First Documented 12/23/18 16:58 Pulse 130 Resp 16 B/P (MAP) 132/89 Pulse Ox 99 O2 Delivery Room Air Capillary Refill : Height, Weight, BMI Height: 6'0.00" Weight: 194lbs. 0.0oz. 87.966045yg; 26.3 BMI Method: General Appearance: No Apparent Distress, WD/WN, Other (site telemetry strip shows atrial fibrillation with a rate of 144.) Eyes: Bilateral Eye Normal Inspection, Bilateral Eye PERRL, Bilateral Eye EOMI HEENT: PERRL/EOMI, TMs Normal Respiratory: Normal Breath Sounds, No Accessory Muscle Use, No Respiratory Distress Cardiovascular: Normal Peripheral Pulses, Irregularly Irregular, Tachycardia Gastrointestinal: Normal Bowel Sounds, Non Tender, Soft Extremity: Normal Capillary Refill, Normal Inspection, Other (no swelling of either lower extremity, the dorsalis pedis pulses +1 bilateral lower extremities.) Neurologic/Psychiatric: Alert, Oriented x3, No Motor/Sensory Deficits Progress/Results/Core Measures Suspected Sepsis SIRS Temperature: Pulse: Respiratory Rate: Laboratory Tests 8/31/19 16:31: White Blood Count 7.8 Blood Pressure / Mean: Laboratory Tests 12/23/18 16:31: Creatinine 0.95, INR Comment 1.1, Platelet Count 175, Total Bilirubin 1.5H Results/Orders Lab Results Laboratory Tests Test 12/23/18 16:31 12/23/18 16:41 Range/Units White Blood Count 7.8 4.3-11.0 10^3/uL Red Blood Count 3.06 L 4.35-5.85 10^6/uL Hemoglobin 11.3 L 13.3-17.7 G/DL Hematocrit 33 L 40-54 % Mean Corpuscular Volume 108 H 80-99 FL Mean Corpuscular Hemoglobin 37 H 25-34 PG Mean Corpuscular Hemoglobin Concent 34 32-36 G/DL Red Cell Distribution Width 14.1 10.0-14.5 % Platelet Count 175 130-400 10^3/uL Mean Platelet Volume 10.5 H 7.4-10.4 FL Neutrophils (%) (Auto) 74 42-75 % Lymphocytes (%) (Auto) 13 12-44 % Monocytes (%) (Auto) 11 0-12 % Eosinophils (%) (Auto) 1 0-10 % Basophils (%) (Auto) 0 0-10 % Neutrophils # (Auto) 5.8 1.8-7.8 X 10^3 Lymphocytes # (Auto) 1.0 1.0-4.0 X 10^3 Monocytes # (Auto) 0.9 0.0-1.0 X 10^3 Eosinophils # (Auto) 0.1 0.0-0.3 10^3/uL Basophils # (Auto) 0.0 0.0-0.1 10^3/uL Prothrombin Time 14.4 12.2-14.7 SEC INR Comment 1.1 0.8-1.4 Sodium Level 133 L 135-145 MMOL/L Potassium Level 2.6 L 3.6-5.0 MMOL/L Chloride Level 90 L 98-107 MMOL/L Carbon Dioxide Level 26 21-32 MMOL/L Anion Gap 17 H 5-14 MMOL/L Blood Urea Nitrogen 10 7-18 MG/DL Creatinine 0.95 0.60-1.30 MG/DL Estimat Glomerular Filtration Rate > 60 BUN/Creatinine Ratio 11 Glucose Level 128 H 70-105 MG/DL Calcium Level 8.5 8.5-10.1 MG/DL Corrected Calcium 9.1 8.5-10.1 MG/DL Magnesium Level 0.9 *L 1.6-2.4 MG/DL Total Bilirubin 1.5 H 0.1-1.0 MG/DL Aspartate Amino Transf (AST/SGOT) 21 5-34 U/L Alanine Aminotransferase (ALT/SGPT) 10 0-55 U/L Alkaline Phosphatase 116 40-136 U/L Total Protein 6.4 6.4-8.2 GM/DL Albumin 3.2 3.2-4.5 GM/DL Lipase 26 8-78 U/L Urine Color DARIA H Urine Clarity CLEAR Urine pH 7 5-9 Urine Specific Ney 1.005 L 1.016-1.022 Urine Protein 1+ H NEGATIVE Urine Glucose (UA) NEGATIVE NEGATIVE Urine Ketones NEGATIVE NEGATIVE Urine Nitrite NEGATIVE NEGATIVE Urine Bilirubin NEGATIVE NEGATIVE Urine Urobilinogen 4 H NORMAL MG/DL Urine Leukocyte Esterase 2+ H NEGATIVE Urine RBC (Auto) 3+ H NEGATIVE Urine RBC 2-5 H /HPF Urine WBC 2-5 /HPF Urine Squamous Epithelial Cells NONE /HPF Urine Crystals NONE /LPF Urine Bacteria NEGATIVE /HPF Urine Casts NONE /LPF Urine Mucus NEGATIVE /LPF Urine Culture Indicated NO My Orders Orders - TAY RAMOS APRN Cbc With Automated Diff (12/23/18 16:28) Comprehensive Metabolic Panel (12/23/18 16:28) Lipase (12/23/18 16:28) Ua Culture If Indicated (12/23/18 16:28) BNP (12/23/18 16:28) Thyroid Stimulating Hormone (12/23/18 16:28) Free T4 (Free Thyroxine) (12/23/18 16:28) Magnesium (12/23/18 16:28) Troponin I (12/23/18 16:28) Ekg Tracing (12/23/18 16:28) Chest 1 View, Ap/Pa Only (12/23/18 16:28) Ed Iv/Invasive Line Start (12/23/18 16:28) Ns Iv 1000 Ml (Sodium Chloride 0.9%) (12/23/18 16:30) Ondansetron Injection (Zofran Injectio (12/23/18 16:30) Protime With Inr (12/23/18 16:32) Diltiazem Injection (Cardizem Injection) (12/23/18 16:45) Ns (Ivpb) (Sodium C... W/Diltiazem Iv Fo (12/23/18 16:45) Aspirin Chewable Tablet (Baby Aspirin Ch (12/23/18 16:45) Magnesium 1 Gm/100 Ml Ivpb (Magnesium Doll (12/23/18 17:15) Potassium Cl 10meq/50ml Ivpb (Kcl 10 Meq (12/23/18 17:15) Alcohol (12/23/18 17:15) Medications Given in ED Current Medications Medications Dose Ordered Sig/Justen Route Start Time Stop Time Status Last Admin Dose Admin Aspirin 324 mg ONCE ONCE PO 12/23/18 16:45 12/23/18 16:48 DC 12/23/18 17:04 324 MG Diltiazem HCl 10 mg ONCE ONCE IVP 12/23/18 16:45 12/23/18 16:46 DC 12/23/18 16:55 10 MG Ondansetron HCl 8 mg ONCE ONCE IVP 12/23/18 16:30 12/23/18 16:31 DC 12/23/18 16:38 8 MG Vital Signs/I&O 12/23/18 16:58 Pulse 130 Resp 16 B/P (MAP) 132/89 Pulse Ox 99 O2 Delivery Room Air Capillary Refill : Diagnostic Imaging Diagonstic Imaging: Xray Plain Films/CT/US/NM/MRI: chest Comments NAME: PAULINA VALDERRAMA [facility] REC#: [id number] PT STATUS: REG ER : 1945 PHYSICIAN: TAY RAMOS APRN ADMIT DATE: 12/23/18/ER Signed Date of Exam:12/23/18 CHEST 1 VIEW, AP/PA ONLY Indication: Dyspnea, fatigue. Comparison: 03/23/2018. Discussion: Single portable upright view of the chest was obtained. The lungs remain hyperinflated. Stable normal heart size. Old left rib fractures are stable. No new consolidation, pleural fluid or pneumothorax. Impression: No acute cardiopulmonary process. Dictated by: Dictated on workstation # [id number] Dict: 12/23/18 165 Trans: 12/23/[address] [facility] [id number] Interpreted by: NOAH CANALES MD Electronically signed by: NOAH CANALES MD 12/23/18 1050 Departure Communication (Admissions) Time/Spoke to Admitting Phy: 17:19 Discussed the case with Dr. Brown. We'll admit, consult Dr. Jimenez. I'm replacing his magnesium starting in the emergency room with 4 g in total. Will also replace the potassium with total of 40 mEq IV, 10 mEq being given here in the em ergency room. Currently is on a Cardizem drip at 10 mg an hour and he's been given Lovenox 80 mg subcutaneous as well as aspirin here in the emergency room. Impression Primary Impression: Atrial fibrillation with rapid ventricular response Additional Impressions: Hypomagnesemia Hypokalemia Disposition: ADMITTED INPATIENT Condition: Stable Admissions Decision to Admit Reason: Admit from ER (General) Decision to Admit/Date: Dec 23, 2018 Time/Decision to Admit Time: 16:42 Departure-Patient Inst. Referrals: ELMER MACIAS MD (PCP/Family) Primary Care Physician TAY RAMOS APRN Dec 23, 2018 16:32
[2018-12-23 16:40] LABS: BASOPHILS % (AUTO) 0 % (0-10); EOSINOPHILS # (AUTO) 0.1 10^3/uL (0.0-0.3); EOSINOPHILS % (AUTO) 1 % (0-10); HEMATOCRIT 33 % (40-54); HEMOGLOBIN 11.3 G/DL (13.3-17.7); LYMPHOCYTES % (AUTO) 13 % (12-44); MEAN CORPUSCULAR HEMOGLOBIN 37 PG (25-34); MEAN CORPUSCULAR HGB CONC 34 G/DL (32-36); MEAN CORPUSCULAR VOLUME 108 FL (80-99); MEAN PLATELET VOLUME 10.5 FL (7.4-10.4); MONOCYTES # (AUTO) 0.9 X 10^3 (0.0-1.0); MONOCYTES % (AUTO) 11 % (0-12); NEUTROPHILS # (AUTO) 5.8 X 10^3 (1.8-7.8); NEUTROPHILS % (AUTO) 74 % (42-75); PLATELET COUNT 175 10^3/uL (130-400); RED CELL DISTRIBUTION WIDTH 14.1 % (10.0-14.5); WHITE BLOOD COUNT 7.8 10^3/uL (4.3-11.0)
[2018-12-23] MEDS ORDERED: DILTIAZEM 25 MG/5 ML INJ (CARDIZEM) VIAL IVP ONE (16:45)
[2018-12-23] MEDS ORDERED: ASPIRIN 81 MG CHEW (CHILDREN'S ASA) PO ONE (16:45)
[2018-12-23] MEDS ORDERED: DILTIAZEM IV FOR DRIP 125 MG in NS (IVPB) 100 ML IV SCH (16:45)
[2018-12-23 16:50] LABS: BILIRUBIN,URINE NEGATIVE (NEGATIVE); CLARITY,URINE CLEAR; COLOR,URINE AMBER; GLUCOSE, URINE (UA) NEGATIVE (NEGATIVE); KETONES,URINE NEGATIVE (NEGATIVE); LEUKOCYTE ESTERASE ,URINE 2+ (NEGATIVE); NITRITE,URINE NEGATIVE (NEGATIVE); PH,URINE 7 (5-9); PROTEIN,URINE 1+ (NEGATIVE); UROBILINOGEN,URINE 4 MG/DL (NORMAL)
--- NOTE | 2018-12-23 16:53 | Diagnostic Imaging Report ---
Indication: Dyspnea, fatigue. Comparison: 03/23/2018. Discussion: Single portable upright view of the chest was obtained. The lungs remain hyperinflated. Stable normal heart size. Old left rib fractures are stable. No new consolidation, pleural fluid or pneumothorax. Impression: No acute cardiopulmonary process. Dictated by: Dictated on workstation # [id number]
[2018-12-23 16:54] LABS: INR 1.1 (0.8-1.4); PROTHROMBIN TIME PATIENT 14.4 SEC (12.2-14.7)
[2018-12-23 16:58] LABS: BACTERIA,URINE NEGATIVE /HPF
[2018-12-23 17:03] LABS: ALANINE AMINOTRANSFERASE 10 U/L (0-55); ALBUMIN 3.2 GM/DL (3.2-4.5); ALKALINE PHOSPHATASE 116 U/L (40-136); BILIRUBIN,TOTAL 1.5 MG/DL (0.1-1.0); BUN/CREATININE RATIO 11; CALCIUM 8.5 MG/DL (8.5-10.1); CARBON DIOXIDE 26 MMOL/L (21-32); CHLORIDE 90 MMOL/L (98-107); CREATININE SERUM 0.95 MG/DL (0.60-1.30); GFR ESTIMATED > 60; GLUCOSE 128 MG/DL (70-105); LIPASE 26 U/L (8-78); POTASSIUM 2.6 MMOL/L (3.6-5.0); SODIUM 133 MMOL/L (135-145); TOTAL PROTEIN 6.4 GM/DL (6.4-8.2)
[2018-12-23 17:04] LABS: MAGNESIUM 0.9 MG/DL (1.6-2.4)
[2018-12-23] MEDS ORDERED: POTASSIUM CL 10MEQ/50ML IVPB 50 ML IV ONE (17:15)
[2018-12-23] MEDS: MAGNESIUM 1 GM/100 ML IVPB 100 ML IV SCH ×4 (17:15→22:16)
[2018-12-23 17:25] LABS: FREE T4 (FREE THYROXINE) 0.74 NG/DL (0.70-1.48)
[2018-12-23] MEDS ORDERED: ENOXAPARIN 80 MG/0.8 ML (LOVENOX) SYR SC ONE (17:30)
[2018-12-23] MEDS: POTASSIUM CL 10MEQ/50ML IVPB 50 ML IV SCH ×4 (20:20→23:17)
[2018-12-23] MEDS ORDERED: NS IV 1000 ML 1,000 ML ONE (20:21)
[2018-12-23] MEDS: NS IV 1000 ML 1,000 ML IV SCH (20:30)
[2018-12-23] MEDS: DILTIAZEM 125 MG/NS 100 ML IV SCH ×2 (21:13)
[2018-12-24] VITALS (17 sets, daily range): BP systolic 112–152; BP diastolic 67–91
[2018-12-24] MEDS ORDERED: MELATONIN 3 MG TABLET ONE (00:27)
[2018-12-24] MEDS ORDERED: MAGNESIUM 1 GM/100 ML IVPB 200 ML IV ONE (01:30)
[2018-12-24] MEDS ORDERED: NS (IVPB) 100 ML ONE (01:37)
[2018-12-24] MEDS: MAGNESIUM 1 GM/100 ML IVPB 100 ML IV SCH ×2 (01:50→02:47)
[2018-12-24] MEDS: DILTIAZEM 125 MG/NS 100 ML IV SCH ×2 (01:50)
[2018-12-24] MEDS ORDERED: MELATONIN 3 MG TABLET PO PRN (02:00)
[2018-12-24 04:02] LABS: BASOPHILS % (AUTO) 0 % (0-10); EOSINOPHILS # (AUTO) 0.1 10^3/uL (0.0-0.3); EOSINOPHILS % (AUTO) 2 % (0-10); HEMATOCRIT 27 % (40-54); HEMOGLOBIN 9.2 G/DL (13.3-17.7); LYMPHOCYTES # (AUTO) 0.9 X 10^3 (1.0-4.0); LYMPHOCYTES % (AUTO) 15 % (12-44); MEAN CORPUSCULAR HEMOGLOBIN 37 PG (25-34); MEAN CORPUSCULAR HGB CONC 35 G/DL (32-36); MEAN CORPUSCULAR VOLUME 108 FL (80-99); MONOCYTES # (AUTO) 0.5 X 10^3 (0.0-1.0); MONOCYTES % (AUTO) 9 % (0-12); NEUTROPHILS # (AUTO) 4.5 X 10^3 (1.8-7.8); NEUTROPHILS % (AUTO) 75 % (42-75); PLATELET COUNT 107 10^3/uL (130-400); RED CELL DISTRIBUTION WIDTH 13.9 % (10.0-14.5)
[2018-12-24 04:23] LABS: BUN/CREATININE RATIO 12; CALCIUM 7.6 MG/DL (8.5-10.1); CARBON DIOXIDE 27 MMOL/L (21-32); CHLORIDE 95 MMOL/L (98-107); CREATININE SERUM 0.75 MG/DL (0.60-1.30); GFR ESTIMATED > 60; GLUCOSE 148 MG/DL (70-105); MAGNESIUM 2.8 MG/DL (1.6-2.4); PHOSPHORUS 2.3 MG/DL (2.3-4.7); POTASSIUM 3.1 MMOL/L (3.6-5.0); SODIUM 134 MMOL/L (135-145)
[2018-12-24] MEDS: ENOXAPARIN 80 MG/0.8 ML (LOVENOX) SYR SC SCH ×2 (05:06→16:57)
[2018-12-24] MEDS: POTASSIUM CL 10MEQ/50ML IVPB 50 ML IV SCH ×8 (05:06→12:07)
--- NOTE | 2018-12-24 05:07 | Pulmonary Consultation ---
History of Present Illness History of Present Illness Date of Consultation 12/24/18 05:05 Time Seen by Provider: 06:45 Date of Admission History of Present Illness 73yo with hx of COPD and ETOH use with recent dx of pancreatitis, use presented to ED secondary to progressive weakness, n/v/d. Pt denies chills, fever currently. SOB is mild. He was found to have Afib RVR while in the ED and was transferred to ICU with cardizem gtt. Im consulted for pulmonary management. Allergies and Home Medications Allergies Coded Allergies: Sulfa (Sulfonamide Antibiotics) (Verified Allergy, Unknown, 05/18/16) meperidine (Verified Allergy, Unknown, 05/18/16) Home Medications Albuterol Sulfate 1 Puff Puff, 2 PUFF IH QID PRN for SHORTNESS OF BREATH, (Reported) Apixaban 5 Mg Tablet, 5 MG PO BID Prescribed by: RUBI CASTRO on 12/27/18 1341 Dextran 70/Hypromellose 1 Each Droperette, 1 DROP OU QID PRN for DRY EYES, (Reported) Folic Acid 1 Mg Tablet, 1 MG PO DAILY@0700 Prescribed by: RUBI CASTRO on 12/27/18 1325 Lipase/Protease/Amylase 1 Each Capsule.dr, 1 CAP PO DAILY PRN for PANCREATIV ENZYME REPLACEMENT, (Reported) Lisinopril 20 Mg Tablet, 20 MG PO DAILY Prescribed by: RUBI CASTRO on 12/27/18 1325 Losartan Potassium 100 Mg Tablet, 100 MG PO DAILY, (Reported) Metoclopramide HCl 10 Mg Tablet, 10 MG PO Q6H PRN for NAUSEA/VOMITING-3RD LINE, (Reported) Metoprolol Succinate 100 Mg Tab.er.24h, 100 MG PO DAILY, (Reported) LAST FILLED #30 10-20-18 Omeprazole 20 Mg Capsule.dr, 20 MG PO DAILY, (Reported) Pantoprazole Sodium 40 Mg Tablet.dr, 40 MG PO DAILY Prescribed by: AMY MCCLOUD on 12/27/18 1627 Tiotropium [place] 4 Gm Mist.inhal, 2 PUFF IH DAILY PRN for SHORTNESS OF BREATH, (Reported) Past Tnuvcqb-Cebbqf-Trmsvy Hx Patient Social History Alcohol Use: Regular Use Number of Drinks Today: 1 Alcohol Beverage of Choice: [place] Recreational Drug Use: No Smoking Status: Current Everyday Smoker Type Used: Cigarettes 2nd Hand Smoke Exposure: Yes Recent Foreign Travel: No Contact w/Someone Who Travel: No Recent Infectious Disease Expo: No Recent Hopitalizations: No Physical Abuse: No Sexual Abuse: No Mistreated: No Fear: No Immunizations Up To Date Tetanus Booster (TDap): Unknown Date of Pneumonia Vaccine: Apr 25, 2015 Date of Influenza Vaccine: Jan 23, 2018 Seasonal Allergies Seasonal Allergies: Yes Past Medical History Surgeries: Yes Coronary Stent, Gallbladder, Joint Replacement Respiratory: Yes Asthma, Sleep Apnea, COPD, Emphysema Currently Using CPAP: Yes Currently Using BIPAP: No Cardiac: Yes Coronary Artery Disease, Hypertension Neurological: No Sexually Transmitted Disease: No HIV/AIDS: No Genitourinary: No Kidney Stones Gastrointestinal: Yes Gastroesophageal Reflux, Pancreatitis Musculoskeletal: Yes Arthritis Endocrine: No HEENT: No Cancer: No Skin What Type of Treatment Did You: Surgical Intervention Psychosocial: No Integumentary: No Blood Disorders: No Adverse Reaction/Blood Tranf: No Review of Systems Time Seen by Provider: 06:49 Sepsis Event Evaluation Height, Weight, BMI Height: 6'0.00" Weight: 181lbs. 0.0oz. 82.608184hi; 24.6 BMI Method:Stated Exam Exam Vital Signs Date Time Temp Pulse Resp B/P (MAP) Pulse Ox O2 Delivery O2 Flow Rate FiO2 12/24/18 04:00 97.8 12/24/18 03:59 Room Air 12/24/18 03:00 87 18 123/67 (85) 93 Room Air 12/24/18 02:00 97 18 133/76 (95) 93 Room Air 12/24/18 01:50 98.8 65 17 126/74 94 Room Air 12/24/18 01:00 85 17 131/72 (91) 95 Room Air 12/24/18 01:00 88 12/24/18 00:00 Room Air 12/24/18 00:00 94 16 152/87 (108) 95 Room Air 12/24/18 00:00 98.8 12/23/18 23:00 91 17 126/74 (91) 94 Room Air 12/23/18 22:00 95 17 134/80 (98) 97 Room Air 12/23/18 21:00 100 18 138/69 (92) 94 Room Air 12/23/18 20:30 99 16 133/73 (93) 97 Room Air 12/23/18 20:00 98.4 8/31/19 20:00 97 16 135/77 (96) 93 Room Air 12/23/18 19:45 100 16 134/77 (96) 97 Room Air 12/23/18 19:30 104 13 143/78 (99) 92 Room Air 12/23/18 19:30 96 Room Air 12/23/18 19:15 94 15 122/79 (93) 98 Room Air 12/23/18 19:00 109 12 143/84 (103) 92 Room Air 12/23/18 19:00 106 12/23/18 18:30 112 16 106/80 (89) 98 Room Air 12/23/18 16:58 130 16 132/89 99 Room Air 12/23/18 16:22 98.1 95 20 133/57 (82) 99 Room Air I & O 12/24/18 07:00 Intake Total 2225 ml Output Total 200 ml Balance 2025 ml Height & Weight Height: 6'0.00" Weight: 181lbs. 0.0oz. 82.742954zn; 24.6 BMI Method:Stated General Appearance: No Apparent Distress, WD/WN, Other (site telemetry strip shows atrial fibrillation with a rate of 144.) HEENT: PERRL/EOMI, TMs Normal Respiratory: Normal Breath Sounds, No Accessory Muscle Use, No Respiratory Distress Cardiovascular: Normal Peripheral Pulses, Irregularly Irregular, Tachycardia Capillary Refill: Less Than 3 Seconds Extremity: Normal Capillary Refill, Normal Inspection, Other (no swelling of either lower extremity, the dorsalis pedis pulses +1 bilateral lower extremities.) Neurologic/Psychiatric: Alert, Oriented x3, No Motor/Sensory Deficits Results Lab Laboratory Tests 12/23/18 16:31 12/24/18 03:19 Assessment/Plan Assessment/Plan COPD Afib RVR -Cardizem gtt Hypokalemia, hypomag -replace ETOH dependance -Monitor -Education Hx of pancreatitis TANMAY MAI DO Dec 24, 2018 05:07
[2018-12-24] MEDS ORDERED: KCL 20 MEQ TAB (K-DUR) PO SCH (06:00)
[2018-12-24] MEDS ORDERED: POTASSIUM CL 10MEQ/50ML IVPB 50 ML IV SCH (06:00)
[2018-12-24] MEDS ORDERED: MAGNESIUM 1 GM/100 ML IVPB 100 ML IV SCH (06:00)
[2018-12-24] MEDS: NS IV 1000 ML 1,000 ML IV SCH ×2 (06:40→16:57)
--- NOTE | 2018-12-24 09:10 | History & Physical-Hospitalist ---
History of Present Illness HPI/Chief Complaint Pt is a 73yoCM with a PMH of alcohol abuse, HTN, tobacco abuse, COPD, pancreatitis who presented the ER due to weakness. He states this started a few weeks ago but worsened yesterday and was unable to stand. His was unable to lift him as well and was brought to the ER for evaluation. He states this started a few weeks ago when he was diagnosed with pancreatitis. He has had chronic diarrhea these entire time as well. He reports a 40lb weight loss Source: patient, family Date Seen 12/24/18 Time Seen by a Provider: 09:09 Attending Physician Shikha Martinez MD PCP Amilcar Macias MD Referring Physician Date of Admission Dec 23, 2018 at 16:55 Home Medications & Allergies Home Medications Reviewed patient Home Medication Reconciliation performed by pharmacy medication reconciliations explosive technician and/or nursing. Patients Allergies have been reviewed. Allergies Allergies Coded Allergies Sulfa (Sulfonamide Antibiotics) (Verified Allergy, Unknown, 05/18/16) meperidine (Verified Allergy, Unknown, 05/18/16) Past Tecxljy-Tbgmbg-Ukkbfz Hx Past Med/Social Hx: Reviewed Nursing Past Med/Soc Hx Patient Social History Marrital Status: Alcohol Use: Regular Use Number of Drinks Today: 1 Alcohol Beverage of Choice: [place] Recreational Drug Use: No Smoking Status: Current Everyday Smoker Type Used: Cigarettes 2nd Hand Smoke Exposure: Yes Recent Foreign Travel: No Contact w/other who traveled: No Recent Hopitalizations: No Recent Infectious Disease Expo: No Immunizations Up To Date Tetanus Booster (TDap): Unknown Date of Pneumonia Vaccine: Apr 25, 2015 Date of Influenza Vaccine: Jan 23, 2018 Seasonal Allergies Seasonal Allergies: Yes Past Medical History Surgeries: Coronary Stent, Gallbladder, Joint Replacement Currently Using CPAP: Yes Currently Using BIPAP: No Cardiac: Coronary Artery Disease, Hypertension Sexually Transmitted Disease: No HIV/AIDS: No Genitourinary: Kidney Stones Gastrointestinal: Gastroesophageal Reflux, Pancreatitis Musculoskeletal: Arthritis Cancer: Skin What Type of Treatment Did You: Surgical Intervention History of Blood Disorders: No Adverse Reaction to Blood [place]ana: No Family History Reviewed Nursing Family Hx Cancer Review of Systems Constitutional: No chills, No fever; malaise, weakness, weight loss EENTM: No dental problems, No mouth pain, No throat pain Respiratory: cough; No dyspnea on exertion, No short of breath Gastrointestinal: No constipation; diarrhea; No hematemesis; nausea, vomiting Genitourinary: No discharge, No dysuria, No frequency Musculoskeletal: No joint pain, No muscle cramps; muscle weakness Skin: no symptoms reported Psychiatric/Neurological: No Symptoms Reported Physical Exam Physical Exam Vital Signs Vital Signs - First Documented 12/26/18 12/26/18 12/27/18 01:00 04:00 14:40 Temp 36.16517 Pulse 71 Resp 20 B/P (MAP) 146/82 (103) Pulse Ox 97 O2 Delivery Room Air O2 Flow Rate 5 Capillary Refill : Less Than 3 Seconds Height, Weight, BMI Height: 6'0.00" Weight: 190lbs. 9.0oz. 86.164625sj; 24.6 BMI Method:Stated General Appearance: No Apparent Distress, Chronically ill HEENT: PERRL/EOMI, Moist Mucous Membranes; No Scleral Icterus (L), No Scleral Icterus (R) Neck: Normal Inspection, Supple; No Thyromegaly Respiratory: Lungs Clear, No Accessory Muscle Use, No Respiratory Distress Cardiovascular: Regular Rate, Rhythm, No Murmur, Normal Peripheral Pulses Gastrointestinal: Normal Bowel Sounds, Non Tender, Soft Extremity: Normal Capillary Refill, No Calf Tenderness, No Pedal Edema Neurologic/Psychiatric: Alert, Oriented x3, Normal Mood/Affect; No Aphasia, No Facial Droop Skin: Normal Color, Warm/Dry Results Results/Procedures Labs Patient resulted labs reviewed. Imaging: Reviewed Imaging Report Assessment/Plan Admission Diagnosis a-fib rvr Admission Status: Inpatient Order (span 2 midnights) Reason for Inpatient Admission: multiple comorbidities, complex management, will talk more than two midnights to stabilize for discharge Assessment and Plan Atrial Fibrillation with RVR CAD PAD Cardiology consulted, appreciate recs Currently on cardizem gtt- plan to switch to oral metoprolol Lovenox for stroke ppx echo ordered Follows with Dr Dorantes as an outpatient Diarrhea Weight loss New onset ? Chronic pancreatitis Surgery consulted last colonoscopy 10 years ago COPD Pulm consult MAT protocol Diagnosis/Problems Diagnosis/Problems (1) Weight loss, unintentional Status: Chronic (2) Atrial fibrillation with rapid ventricular response Status: Acute (3) Hypomagnesemia Status: Acute (4) Hypokalemia Status: Acute (5) Nausea & vomiting Status: Acute (6) Interstitial lung disease (7) CAD (coronary artery disease) Status: Acute (8) HTN (hypertension) Status: Chronic Clinical Quality Measures DVT/VTE Risk/Contraindication: Risk Factor Score Per Nursin RFS Level Per Nursing on Admit: 4+=Very High SHIKHA MARTINEZ MD Dec 24, 2018 09:10
[2018-12-24] MEDS: ONDANSETRON 4 MG/2 ML (SDV) Z0FRAN IVP PRN ×3 (09:18→20:40)
--- NOTE | 2018-12-24 09:19 | Consultation-Cardiology ---
HPI-Cardiology Cardiology Consultation Date of Consultation 12/24/18 Date of Admission Time Seen by Provider: 09:11 Indication: Atrial fibrillation HPI 73 years old gentleman with history of coronary artery disease, peripheral arterial disease, hypertension hyperlipidemia. Has been having increasing weakness and fatigue in addition to palpitation feeling his heart racing, came i nto the emergency room and noted to be in atrial flutter ablation with rapid ventricular response, blood pressure was stable, started on Lovenox and Cardizem drip, converted overnight to sinus rhythm, currently sitting in bed. Comfortable, denied any chest pain, no palpitation. No syncope or near syncopal episodes. Home Medications & Allergies Allergies: Coded Allergies: Sulfa (Sulfonamide Antibiotics) (Verified Allergy, Unknown, 05/18/16) meperidine (Verified Allergy, Unknown, 05/18/16) Home Medication List Reviewed: Yes [id number] Hx Patient Social History Marital Status: Employed/Student: retired Alcohol Use: Regular Use Recreational Drug Use: No Smoking Status: Current Everyday Smoker Type Used: Cigarettes 2nd Hand Smoke Exposure: Yes Recent Foreign Travel: No Recent Infectious Disease Expo: No Recent Hopitalizations: No Immunizations Up To Date Tetanus Booster (TDap): Unknown Date of Pneumonia Vaccine: Apr 25, 2015 Date of Influenza Vaccine: Jan 23, 2018 Past Medical History Discussed below Family Medical History Family Medical Hx Noncontributory to his current condition Review of Systems-General Review of Systems Constitutional: see HPI, dizziness, malaise, weakness EENTM: see HPI, no symptoms reported Respiratory: see HPI, cough, dyspnea on exertion; No hemoptysis, No orthopnea, No phlegm, No short of breath, No stridor, No wheezing, No other Cardiovascular: see HPI; No chest pain, No edema, No Hx of Intervention; palpitations; No syncope, No vascular heart diseas, No other Gastrointestinal: see HPI; No abdominal pain; diarrhea, nausea Genitourinary: see HPI Musculoskeletal: see HPI Skin: see HPI Psychiatric/Neurological: See HPI Reviewed Test Results Reviewed Test Results Lab Laboratory Tests Test 12/23/18 16:31 12/23/18 16:41 12/24/18 03:19 Range/Units White Blood Count 7.8 6.0 4.3-11.0 10^3/uL Red Blood Count 3.06 L 2.47 L 4.35-5.85 10^6/uL Hemoglobin 11.3 L 9.2 L 13.3-17.7 G/DL Hematocrit 33 L 27 L 40-54 % Mean Corpuscular Volume 108 H 108 H 80-99 FL Mean Corpuscular Hemoglobin 37 H 37 H 25-34 PG Mean Corpuscular Hemoglobin Concent 34 35 32-36 G/DL Red Cell Distribution Width 14.1 13.9 10.0-14.5 % Platelet Count 175 107 L 130-400 10^3/uL Mean Platelet Volume 10.5 H 11.0 H 7.4-10.4 FL Neutrophils (%) (Auto) 74 75 42-75 % Lymphocytes (%) (Auto) 13 15 12-44 % Monocytes (%) (Auto) 11 9 0-12 % Eosinophils (%) (Auto) 1 2 0-10 % Basophils (%) (Auto) 0 0 0-10 % Neutrophils # (Auto) 5.8 4.5 1.8-7.8 X 10^3 Lymphocytes # (Auto) 1.0 0.9 L 1.0-4.0 X 10^3 Monocytes # (Auto) 0.9 0.5 0.0-1.0 X 10^3 Eosinophils # (Auto) 0.1 0.1 0.0-0.3 10^3/uL Basophils # (Auto) 0.0 0.0 0.0-0.1 10^3/uL Prothrombin Time 14.4 12.2-14.7 SEC INR Comment 1.1 0.8-1.4 Sodium Level 133 L 134 L 135-145 MMOL/L Potassium Level 2.6 L 3.1 L 3.6-5.0 MMOL/L Chloride Level 90 L 95 L 98-107 MMOL/L Carbon Dioxide Level 26 27 21-32 MMOL/L Anion Gap 17 H 12 5-14 MMOL/L Blood Urea Nitrogen 10 9 7-18 MG/DL Creatinine 0.95 0.75 0.60-1.30 MG/DL Estimat Glomerular Filtration Rate > 60 > 60 BUN/Creatinine Ratio 11 12 Glucose Level 128 H 148 H 70-105 MG/DL Calcium Level 8.5 7.6 L 8.5-10.1 MG/DL Corrected Calcium 9.1 8.5-10.1 MG/DL Magnesium Level 0.9 *L 2.8 H 1.6-2.4 MG/DL Total Bilirubin 1.5 H 0.1-1.0 MG/DL Aspartate Amino Transf (AST/SGOT) 21 5-34 U/L Alanine Aminotransferase (ALT/SGPT) 10 0-55 U/L Alkaline Phosphatase 116 40-136 U/L Troponin I < 0.028 <0.028 NG/ML B-Type Natriuretic Peptide 529.5 H <100.0 PG/ML Total Protein 6.4 6.4-8.2 GM/DL Albumin 3.2 3.2-4.5 GM/DL Lipase 26 8-78 U/L Thyroid Stimulating Hormone (TSH) 2.35 0.35-4.94 UIU/ML Free Thyroxine 0.74 0.70-1.48 NG/DL Serum Alcohol < 10 <10 MG/DL Urine Color DARIA H Urine Clarity CLEAR Urine pH 7 5-9 Urine Specific [place] 1.005 L 1.016-1.022 Urine Protein 1+ H NEGATIVE Urine Glucose (UA) NEGATIVE NEGATIVE Urine Ketones NEGATIVE NEGATIVE Urine Nitrite NEGATIVE NEGATIVE Urine Bilirubin NEGATIVE NEGATIVE Urine Urobilinogen 4 H NORMAL MG/DL Urine Leukocyte Esterase 2+ H NEGATIVE Urine RBC (Auto) 3+ H NEGATIVE Urine RBC 2-5 H /HPF Urine WBC 2-5 /HPF Urine Squamous Epithelial Cells NONE /HPF Urine Crystals NONE /LPF Urine Bacteria NEGATIVE /HPF Urine Casts NONE /LPF Urine Mucus NEGATIVE /LPF Urine Culture Indicated NO Phosphorus Level 2.3 2.3-4.7 MG/DL Physical Exam Physical Exam Vital Signs Vital Signs - First Documented 12/23/18 16:22 Temp 98.1 Pulse 95 Resp 20 B/P (MAP) 133/57 (82) Pulse Ox 99 O2 Delivery Room Air Capillary Refill : Less Than 3 Seconds Height, Weight, BMI Height: 6'0.00" Weight: 190lbs. 9.0oz. 86.520137tl; 24.6 BMI Method:Stated General Appearance: No Apparent Distress, WD/WN, Other (site telemetry strip shows atrial fibrillation with a rate of 144.) Eyes: Bilateral Eye Normal Inspection, Bilateral Eye PERRL, Bilateral Eye EOMI HEENT: PERRL/EOMI, TMs Normal Neck: Full Range of Motion, Normal Inspection, Non Tender, Supple, Carotid Bruit Respiratory: Normal Breath Sounds, No Accessory Muscle Use, No Respiratory Distress Cardiovascular: Regular Rate, Rhythm, No Edema, No JVD, Normal Peripheral Pulses, Systolic Murmur, Irregularly Irregular, Tachycardia Gastrointestinal: Normal Bowel Sounds, Non Tender, Soft Back: Normal Inspection, No CVA Tenderness, No Vertebral Tenderness Extremity: Normal Capillary Refill, Normal Inspection, Other (no swelling of either lower extremity, the dorsalis pedis pulses +1 bilateral lower extremities.) Neurologic/Psychiatric: Alert, Oriented x3, No Motor/Sensory Deficits Skin: Normal Color, Warm/Dry Lymphatic: No Adenopathy A/P-Cardiology Admission Diagnosis Paroxysmal atrial fibrillation Coronary artery disease Hypertension Hyperlipidemia Assessment/Plan Paroxysmal atrial fibrillation, new onset, converted to sinus rhythm, has been on beta blockers, I will restart Toprol, continue on Lovenox at this point we will need to initiate oral anticoagulation if he is not having active bleeding. Recent pancreatitis occurred last month with 40 pounds weight loss over the past month, will need to have investigation for any other causes for the weight loss. Coronary artery disease, history of overlapping stents to the right coronary artery, cardiac catheterization done in August 2018 showing moderate disease. Continue to monitor Peripheral arterial disease, history of multiple interventions in the past, has been followed by Dr. Dorantes, no claudication, restart aspirin and monitor Carotid stenosis, history of carotid endarterectomy done in [place]. Followed by Dr. Dorantes Abdominal aortic aneurysm, renal artery stenosis, history of angioplasty to the renal artery, angiogram done by Dr. Dorantes in August 2018 continue to monitor. Hypertension, restart home medication monitor blood pressure Hyperlipidemia, stay off statin due to the recent pancreatitis COPD, emphysema, followed by primary care physician Reported to have lymphadenopathy in the chest, has been followed by primary care physician. Gastroesophageal reflux disease. Tobaccoism, still an active smoker, educated on smoking cessation Alcoholism, educated on avoiding alcohol, still drinking about one bourbon daily. Clinical Quality Measures DVT/VTE Risk/Contraindication: Risk Factor Score Per Nursin RFS Level Per Nursing on Admit: 4+=Very High RADHA GRANADOS MD Dec 24, 2018 09:19
[2018-12-24] MEDS: meTOprolol SUCCINATE 100 MG (TOPROL XL) TAB PO SCH (09:40)
--- NOTE | 2018-12-24 09:45 | NUR ---
Dr. Montejo notified of consult
--- NOTE | 2018-12-24 10:25 | Diagnostic Imaging Report ---
Indication: Atrial fibrillation. Comparison made with prior examination from 12/23/2018 Findings: The heart size is normal. There is some patchy bibasilar subsegmental atelectasis and/or pneumonitis. There is no pleural effusion or pneumothorax. Mediastinum is unremarkable. Impression: Patchy bibasilar subsegmental atelectasis and/or pneumonitis. Dictated by: Dictated on workstation # [id number]
[2018-12-24] MEDS: PANTOPRAZOLE 40 MG (PROTONIX) VIAL IV SCH (12:30)
--- NOTE | 2018-12-24 15:48 | CONSULTATION REPORT ---
DATE OF SERVICE: 12/24/2018 ATTENDING PHYSICIAN: Amilcar Macias MD. HISTORY OF PRESENT ILLNESS: The patient is a 73-year-old male, who presented to the Emergency Department yesterday with a 1-month history of nausea, vomiting, diarrhea as well as progressive weakness. He reports that he was diagnosed with pancreatitis approximately a month ago and has had a lot of nausea and vomiting as well as diarrhea since. He denied any abdominal pain. He does report that over the last 2-3 months, he has lost approximately 30-40 pounds. 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 He reports he has done this for approximately 50+ years as well as smoked 2 packs of cigarettes daily for 50 plus years. He reports that since being diagnosed with pancreatitis, he has cut down to one drink a day. He denied any fever or chills as well as no abdominal pain. He reports that he has also not been eating much also. He reports that he has had an upper endoscopy as well as a colonoscopy previously. His last upper endoscopy was in 09/2018, by Dr. Macias where he was found to have some gastritis as well as a hiatal hernia. Biopsies were negative for any H. pylori. He reports that it has been probably 4-5 years since his last colonoscopy. On further questioning, he denies any blood in the stool as well as no hematemesis. He does report history of reflux and does take omeprazole at night. PAST MEDICAL HISTORY: COPD, gastroesophageal reflux disease, hypertension, AFib, alcoholism, degenerative joint disease, obstructive sleep apnea, emphysema, asthma, coronary artery disease, and kidney stones. PAST SURGICAL HISTORY: Cardiac catheterization with a stent placed, right total knee replacement, cholecystectomy, tonsillectomy, and removal of a kidney stone by open technique. ALLERGIES: SULFA, DEMEROL. MEDICATIONS: Albuterol 2 puffs q.4 hours p.r.n., Lasix 20 mg daily, losartan 100 mg daily, metoprolol 100 mg daily, omeprazole 20 mg at bedtime, potassium 10 mEq b.i.d., tiotropium bromide 4 grams 2 puffs daily, dextran 70-hypromellose one drop 1 q.i.d. SOCIAL HISTORY: Positive for smoke 2 packs a day 50+ pack years, previous for alcoholism 50+ years at three [employer] daily. FAMILY HISTORY: Mother had lung cancer, diabetes. Father had liver cancer, myocardial infarction. Vital signs are temperature 97.8, pulse 84, respirations 16, blood pressure 112/69, pulse ox 99 on room air. REVIEW OF SYSTEMS GENERAL: This is a well-nourished, chronically ill male, in no acute distress. HEENT: He is not experiencing any shortness of breath or difficulty breathing. CARDIOVASCULAR: No chest pain, palpitations or diaphoresis. GASTROINTESTINAL: He does report episodes of nausea and vomiting as well as diarrhea for the past month. No abdominal pain. No constipation. No red blood per rectum. No hematemesis. No dark tarry stools. No fever or chills. He does report a 30-40 pound weight loss over the past two to three months. PHYSICAL EXAMINATION: CHEST: Clear breath sounds bilaterally. HEART: Regular, does appear to be systolic murmur. HEENT: No scleral icterus. No cervical lymphadenopathy. ABDOMEN: Soft, nontender, nondistended. SKIN: Warm, dry and pink. NEUROLOGIC: Awake, alert, and oriented x3. ASSESSMENT AND PLAN: A 73-year-old male with nausea, vomiting, diarrhea and weight loss, who has a history of alcoholism as well as smoking, also has a history of gastroesophageal reflux disease. At this time, we will have the patient proceed with medical management with PUD prophylaxis as well as IV fluids, nausea and pain medication as needed. We will also have him proceed with DVT prophylaxis and we will proceed with scheduling him for an EGD and a colonoscopy on this admission. The patient verbalized clear understanding of instructions. 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
[2018-12-25] VITALS (7 sets, daily range): BP systolic 116–148; BP diastolic 65–82
[2018-12-25] MEDS: NS IV 1000 ML 1,000 ML IV SCH ×2 (02:13→03:57)
[2018-12-25 04:00] LABS: BASOPHILS % (AUTO) 0 % (0-10); EOSINOPHILS # (AUTO) 0.1 10^3/uL (0.0-0.3); EOSINOPHILS % (AUTO) 2 % (0-10); HEMATOCRIT 26 % (40-54); HEMOGLOBIN 8.6 G/DL (13.3-17.7); LYMPHOCYTES % (AUTO) 22 % (12-44); MEAN CORPUSCULAR HEMOGLOBIN 37 PG (25-34); MEAN CORPUSCULAR HGB CONC 33 G/DL (32-36); MEAN CORPUSCULAR VOLUME 111 FL (80-99); MEAN PLATELET VOLUME 10.8 FL (7.4-10.4); MONOCYTES # (AUTO) 0.4 X 10^3 (0.0-1.0); MONOCYTES % (AUTO) 9 % (0-12); NEUTROPHILS # (AUTO) 3.1 X 10^3 (1.8-7.8); NEUTROPHILS % (AUTO) 67 % (42-75); PLATELET COUNT 98 10^3/uL (130-400); RED CELL DISTRIBUTION WIDTH 14.6 % (10.0-14.5); WHITE BLOOD COUNT 4.7 10^3/uL (4.3-11.0)
[2018-12-25] MEDS: ENOXAPARIN 80 MG/0.8 ML (LOVENOX) SYR SC SCH (04:02)
[2018-12-25 04:20] LABS: BUN/CREATININE RATIO 11; CALCIUM 7.2 MG/DL (8.5-10.1); CARBON DIOXIDE 26 MMOL/L (21-32); CHLORIDE 101 MMOL/L (98-107); CREATININE SERUM 0.75 MG/DL (0.60-1.30); GFR ESTIMATED > 60; GLUCOSE 103 MG/DL (70-105); PHOSPHORUS 1.7 MG/DL (2.3-4.7); POTASSIUM 4.2 MMOL/L (3.6-5.0); SODIUM 134 MMOL/L (135-145)
--- NOTE | 2018-12-25 05:56 | Pulmonary Progress Note ---
Subjective Time Seen by a Provider: 05:59 Subjective/Events-last exam Still complains of nausea with eating/drinking Sepsis Event Evaluation Height, Weight, BMI Height: 6'0.00" Weight: 190lbs. 9.0oz. 86.416704sg; 24.6 BMI Method:Stated Exam Exam Vital Signs Date Time Temp Pulse Resp B/P (MAP) Pulse Ox O2 Delivery O2 Flow Rate FiO2 12/25/18 04:30 Room Air 12/25/18 04:02 98.0 65 17 147/72 (97) 100 Nasal Cannula 2.00 12/25/18 04:00 Room Air 12/25/18 01:00 72 12/25/18 00:56 Nasal Cannula 2.00 12/25/18 00:00 71 20 116/71 (86) 100 Room Air 12/25/18 00:00 Room Air 12/24/18 20:00 Room Air 12/24/18 19:48 97.8 71 24 132/91 (105) 92 Room Air 12/24/18 19:00 75 12/24/18 16:00 68 26 121/73 (89) 91 Room Air 12/24/18 15:46 Room Air 12/24/18 14:00 69 17 123/69 (87) 93 Room Air 12/24/18 13:00 71 12/24/18 13:00 70 22 128/75 (92) 95 Room Air 12/24/18 12:00 Room Air 12/24/18 12:00 74 18 133/75 (94) 97 Room Air 12/24/18 11:00 80 16 135/76 (95) 94 Room Air 12/24/18 10:00 84 13 112/69 (83) 99 Room Air 12/24/18 09:00 91 21 136/75 (95) 97 Room Air 12/24/18 08:00 86 15 131/80 (97) 91 Room Air 12/24/18 08:00 Room Air 12/24/18 07:00 89 20 129/80 (96) 91 Room Air 12/24/18 07:00 88 12/24/18 06:00 87 17 142/78 (99) 91 Room Air I & O 12/25/18 07:00 Intake Total 1700 ml Output Total 850 ml Balance 850 ml Height & Weight Height: 6'0.00" Weight: 190lbs. 9.0oz. 86.432729ms; 24.6 BMI Method:Stated General Appearance: No Apparent Distress, Chronically ill HEENT: PERRL/EOMI, Moist Mucous Membranes; No Scleral Icterus (L), No Scleral Icterus (R) Neck: Normal Inspection, Supple; No Thyromegaly Respiratory: Lungs Clear, No Accessory Muscle Use, No Respiratory Distress Cardiovascular: Regular Rate, Rhythm, No Murmur, Normal Peripheral Pulses Capillary Refill: Less Than 3 Seconds Extremity: Normal Capillary Refill, No Calf Tenderness, No Pedal Edema Neurologic/Psychiatric: Alert, Oriented x3, Normal Mood/Affect; No Aphasia, No Facial Droop Skin: Normal Color, Warm/Dry Lymphatic: No Adenopathy Results Lab Laboratory Tests 12/23/18 16:31 12/24/18 03:19 12/25/18 02:38 Assessment/Plan Assessment/Plan COPD -SVNS -monitor Afib RVR -Cardizem gtt Hypophos -replace Nausea/vomiting - recent wt loss 30-40lbs -Persistent -Surgery following -Check Abd US and CA19-9 (hx of heavy tobacco and EOTH use) -Colonoscopy/EGD daily ETOH dependance -Monitor -Education Hx of pancreatitis TANMAY MAI DO Dec 25, 2018 05:56
[2018-12-25] MEDS ORDERED: NS IV 1000 ML 1,000 ML IV SCH (06:00)
[2018-12-25] MEDS ORDERED: SODIUM PHOSPHATE INJ 30 MM in NS (IVPB) 250 ML IV ONE (06:00)
[2018-12-25] MEDS: meTOprolol SUCCINATE 100 MG (TOPROL XL) TAB PO SCH (08:48)
[2018-12-25] MEDS: PANTOPRAZOLE 40 MG (PROTONIX) VIAL IV SCH (08:48)
[2018-12-25] MEDS ORDERED: ASPIRIN E.C. 81 MG (ECOTRIN) TAB PO SCH (09:00)
--- NOTE | 2018-12-25 09:02 | Diagnostic Imaging Report ---
Indication: Dyspnea Comparison: 12/24/2018 Technique: Single radiograph of chest dated 12/25/2018. Findings: The cardiac silhouette is mildly enlarged. No significant pulmonary vascular congestion. Minimal bibasilar predominately interstitial opacities are again identified, appearing similar to the prior examination. No new focal pulmonary opacity. No pleural effusion on the left with possible trace right pleural effusion. No pneumothorax. No acute osseous abnormality. Impression: Persistent bibasilar atelectasis and/or pneumonitis with associated trace right pleural effusion. Dictated by: Dictated on workstation # [id number]
--- NOTE | 2018-12-25 09:23 | Cardiology Progress Note ---
Subjective Date Seen by Provider: Dec 25, 2018 Time Seen by Provider: 09:22 Subjective/Events-last exam Patient is laying down in bed, having generalized weakness, no chest pain. No shortness of breath. Review of Systems General: No Chills, No Night Sweats; Fatigue, Malaise; No Appetite, No Other HEENT: No Head Aches, No Visual Changes, No Eye Pain, No Ear Pain, No Dysphasia, No Sinus Congestion, No Post Nasal Drip, No Sore Throat, No Other Pulmonary: No Dyspnea, No Cough, No Pleuritic Chest Pain, No Other Cardiovascular: No: Chest Pain, Palpitations, Orthopnea, Paroxysmal Noc. Dyspnea, Edema, Lt Headedness, Other Objective-Cardiology Exam Last Set of Vital Signs Vital Signs 12/25/18 12/25/18 04:02 05:58 Temp 98.0 Pulse 65 Resp 17 B/P (MAP) 147/72 (97) Pulse Ox 100 O2 Delivery Nasal Cannula O2 Flow Rate 2.00 Capillary Refill : Less Than 3 Seconds I&O Intake and Output 12/25/18 00:00 Intake Total 2175 ml Output Total 1275 ml Balance 900 ml Intake Oral 1500 ml IV Total 675 ml Output Urine Total 1275 ml # Voids 1 # Bowel Movements 1 General: Alert, Oriented X3, Cooperative HEENT: Atraumatic, PERRLA Neck: Supple, No JVD, No Thyromegaly Lungs: Clear to Auscultation, Normal Air Movement Heart: Regular Rate, Normal S1, Normal S2, Other (Systolic murmur at left sternal border) Abdomen: Normal Bowel Sounds, Soft, No Tenderness, No Hepatosplenomegaly, No Masses Extremities: No Clubbing, No Cyanosis, No Edema, Normal Pulses, No Tenderness/Swelling Skin: No Rashes, No Breakdown, No Significant Lesion Neuro: Normal Speech, Strength at 5/5 X4 Ext, Normal Tone, Sensation Intact Psych/Mental Status: Mental Status NL, Mood NL Results Lab Laboratory Tests 12/25/18 02:38 A/P-Cardiology Admission Diagnosis Paroxysmal atrial fibrillation Coronary artery disease Hypertension Hyperlipidemia Assessment/Plan Paroxysmal atrial fibrillation, new onset, converted to sinus rhythm, continue to monitor Anemia, thrombocytopenia, I will stop Lovenox and aspirin at this time and monitor H&H Recent pancreatitis occurred last month with 40 pounds weight loss over the past month, will need to have investigation for any other causes for the weight loss. Coronary artery disease, history of overlapping stents to the right coronary art adelita, cardiac catheterization done in August 2018 showing moderate disease. Continue to monitor Peripheral arterial disease, history of multiple interventions in the past, has been followed by Dr. Dorantes, no claudication, restart aspirin and monitor Carotid stenosis, history of carotid endarterectomy done in [place]. Followed by Dr. Dorantes Abdominal aortic aneurysm, renal artery stenosis, history of angioplasty to the renal artery, angiogram done by Dr. Dorantes in August 2018 continue to monitor. Hypertension, continue to monitor blood pressure Hyperlipidemia, stay off statin due to the recent pancreatitis COPD, emphysema, followed by primary care physician Reported to have lymphadenopathy in the chest, has been followed by primary care physician. Gastroesophageal reflux disease. Tobaccoism, still an active smoker, educated on smoking cessation Alcoholism, educated on avoiding alcohol, still drinking about one bourbon daily. Clinical Quality Measures DVT/VTE Risk/Contraindication: Risk Factor Score Per Nursin RFS Level Per Nursing on Admit: 4+=Very High RADHA GRANADOS MD Dec 25, 2018 09:23
--- NOTE | 2018-12-25 10:33 | NUR ---
PT TO BE TRANSFERRED TO ROOM 415. BEDSIDE REPORT GIVEN TO STEPHANIA SAEED. PT TRANSFERRED WITH ALL PERSONAL BELONGINGS. FAMILY AT BEDSIDE.
--- NOTE | 2018-12-25 10:46 | Progress Note ---
Subjective Date Seen by a Provider: Dec 25, 2018 Time Seen by a Provider: 10:15 Subjective/Events-last exam Patient seen with Dr. Montejo. Patient reports doing better today. Tolerating liquids with no N/V. Denies any reflux. Reported having a more firm stool but reports was dark and sticky. No fever/chills or abdominal pain. Objective Exam Vital Signs Date Time Temp Pulse Resp B/P (MAP) Pulse Ox O2 Delivery O2 Flow Rate FiO2 12/25/18 08:00 96 Room Air 12/25/18 07:00 72 12/25/18 05:58 Nasal Cannula 2.00 12/25/18 04:30 Room Air 12/25/18 04:02 98.0 65 17 147/72 (97) 100 Nasal Cannula 2.00 12/25/18 04:00 Room Air 12/25/18 01:00 72 12/25/18 00:56 Nasal Cannula 2.00 12/25/18 00:00 71 20 116/71 (86) 100 Room Air 12/25/18 00:00 Room Air 12/24/18 20:00 Room Air 12/24/18 19:48 97.8 71 24 132/91 (105) 92 Room Air 12/24/18 19:00 75 12/24/18 16:00 68 26 121/73 (89) 91 Room Air 12/24/18 15:46 Room Air 12/24/18 14:00 69 17 123/69 (87) 93 Room Air 12/24/18 13:00 71 12/24/18 13:00 70 22 128/75 (92) 95 Room Air 12/24/18 12:00 Room Air 12/24/18 12:00 74 18 133/75 (94) 97 Room Air 12/24/18 11:00 80 16 135/76 (95) 94 Room Air I & O 12/25/18 07:00 Intake Total 1800 ml Output Total 850 ml Balance 950 ml Capillary Refill : Less Than 3 Seconds General Appearance: No Apparent Distress, WD/WN Neck: Full Range of Motion, Normal Inspection, Supple Respiratory: Normal Breath Sounds, No Accessory Muscle Use, No Respiratory Distress Cardiovascular: Regular Rate, Rhythm, No Edema Gastrointestinal: normal bowel sounds, non tender, soft Extremity: Normal Capillary Refill, Normal Inspection, Normal Range of Motion Neurologic/Psychiatric: Alert, Oriented x3 Skin: Normal Color, Warm/Dry Results Lab Laboratory Tests 12/24/18 20:45: Stool Occult Blood Immunoassay NEGATIVE 12/25/18 02:38: White Blood Count 4.7, Red Blood Count 2.35L, Hemoglobin 8.6L, Hematocrit 26L, Mean Corpuscular Volume 111H, Mean Corpuscular Hemoglobin 37H, Mean Corpuscular Hemoglobin Concent 33, Red Cell Distribution Width 14.6H, Platelet Count 98L, Mean Platelet Volume 10.8H, Neutrophils (%) (Auto) 67, Lymphocytes (%) (Auto) 22, Monocytes (%) (Auto) 9, Eosinophils (%) (Auto) 2, Basophils (%) (Auto) 0, Neutrophils # (Auto) 3.1, Lymphocytes # (Auto) 1.0, Monocytes # (Auto) 0.4, Eosinophils # (Auto) 0.1, Basophils # (Auto) 0.0, Sodium Level 134L, Potassium Level 4.2, Chloride Level 101, Carbon Dioxide Level 26, Anion Gap 7, Blood Urea Nitrogen 8, Creatinine 0.75, Estimat Glomerular Filtration Rate > 60, BUN/ Creatinine Ratio 11, Glucose Level 103, Calcium Level 7.2L, Phosphorus Level 1.7L, Magnesium Level 2.0 Microbiology 12/23/18 MRSA Screen - Final, Complete MRSA not isolated Assessment/Plan Assessment/Plan Assess & Plan/Chief Complaint A 73 year old male with N/V, diarrhea, and weight loss. Continue with medical management with IV pain and nausea meds prn. Occult blood was negative. Continue diet. Will start colonic prep tomorrow and schedule EGD/Colonoscopy for Tuesday. Clinical Quality Measures DVT/VTE Risk/Contraindication: Risk Factor Score Per Nursin RFS Level Per Nursing on Admit: 4+=Very High AMANUEL WEBER WAITER Dec 25, 2018 10:46
--- NOTE | 2018-12-25 10:48 | Physical Therapy Evaluation ---
PT Evaluation-General Medical Diagnosis Admission Date Dec 23, 2018 at 16:55 Medical Diagnosis: pancreatitis Onset Date: Dec 22, 2018 Therapy Diagnosis Therapy Diagnosis: weakness Height/Weight Height (Feet): 6 Height (Inches): 0.00 Weight (Pounds): 191 Weight (Ounces): 0.0 Precautions Precautions/Isolations: Fall Prevention, Standard Precautions Weight Bear Status Right Lower Extremity: Right Weight Bearing/Tolerated Left Lower Extremity: Left Weight Bearing/Tolerated Referral Reason for Referral: Evaluation/Treatment Social History Home: Single Level Current Living Status: Spouse Prior/Core FIM Prior Level of Function Therapy Code Descriptions/Definitions Functional [facility] Measure: 0=Not Assessed/NA 4=Minimal Assistance 1=Total Assistance 5=Supervision or Setup 2=Maximal Assistance 6=Modified [facility] 3=Moderate Assistance 7=Complete [facility] Therapy Quality Codes: 6 Independent with activity with or without an assistive device 5 Patient requires set up or clean up by helper. Patient completes activity by themselves 4 Supervision or touching assist (CGA). [place] provide cues , steadying assist 3 The helper provides less than half the effort to complete the activity 2 The helper provides more than half the effort to complete the activity 1 Dependent. The helper does all the effort to complete an activity 7 Patient refused to complete or attempt activity 9 The patient did not perform the activity before the current illness or injury 88 Not attempted due to Medical conditions or safety concerns Functional Abilities and Goals: Independent: Patient completed the activities by him/herself, with or without an assistive device, with no assistance from a helper. Needed Some Help: Patient needed partial assistance from another person to complete activities. Dependent: A helper completed the activities for the patient. Unknown: Not Applicable: Bed Mobility: 7 Transfers (B,C,W/C) (FIM): 7 Gait: 7 Stairs: 7 Indoor Mobility (Ambulation): Independent Prior Devices Use: None PT Evaluation-Current Subjective Patient states that he is really weak. Pain Numeric Pain Scale: 0-No Pain Objective Patient Orientation: Person, Place, Time, Situation ROM/Strength ROM Lower Extremities WFL Strength Lower Extremities 3+/5 strength throughout (B) hips Neuromuscular (Tone, Coordination, Reflexes) intact Transfers Therapy Code Descriptions/Definitions Functional [facility] Measure: 0=Not Assessed/NA 4=Minimal Assistance 1=Total Assistance 5=Supervision or Setup 2=Maximal Assistance 6=Modified [facility] 3=Moderate Assistance 7=Complete [facility] Transfers (B, C, W/C) (FIM): 5 Scootin Rollin Supine to/from Sit: 5 Sit to/from Stand: 5 Gait Mode of Locomotion: Walk Anticipated Mode of Locomotion: Walk Distance (FIM): 0=778-76 ft Distance: 100 Gait Level of Assist: 5 Gait Persons Needed: 1 Gait Assistive Device: FWW Balance Sitting Static: Normal Sitting Dynamic: Good Standing Static: Fair Standing Dynamic: Fair Assessment/Needs 73 y.o. male with a diagnosis of pancreatitis. The patient significant weakness and difficulty with functional mobility that requires skilled therapy. He should do well with skilled therapy and be able to return to his PLOF. Rehab Potential: Good PT Short Term Goals Short Term Goals Time Frame: Dec 31, 2018 Transfers (B,C,W/C) (FIM): 6 Gait (FIM): 6 Distance (FIM): 3=150 ft Gait Distance Comment: 300 Gait Level of Assist: 6 Gait Assistive Device: FWW PT Group Home Goals Central Supply Aide Goals PT Central Supply Aide Goals Time Frame: Jan 07, 2019 Transfers (B,C,W/C) (FIM): 7 Gait (FIM): 6 Gait distance (FIM): 3=150 ft Distance: 500' Gait Level of Assist: 6 Gait Assistive Device: FWW PT Plan Problem List Problem List: Activity Tolerance, Functional Strength, Safety, Balance, Gait, Transfer, Bed Mobility, ROM Treatment/Plan Treatment Plan: Continue Plan of Care Treatment Plan: Bed Mobility, Education, Functional Activity Jordy, Functional Strength, Gait, Safety, Therapeutic Exercise, Transfers Treatment Duration: Jan 07, 2019 Frequency: 11 times per week Estimated Hrs Per Day: 1 hour per day Safety Risks/Education Patient Education: Gait Training Teaching Recipient: Patient Teaching Methods: Discussion Time/GCodes Time In: 1020 Time Out: 1040 Total Billed Treatment Time: 20 Total Billed Treatment 1, EV [place] C x 20' ASIYA GORDON PT Dec 25, 2018 10:48
--- NOTE | 2018-12-25 11:19 | Occupational Therapy Eval ---
OT Evaluation-General/PLF Medical Diagnosis Admission Date Dec 23, 2018 at 16:55 Medical Diagnosis: pancreatitis Onset Date: Dec 22, 2018 Therapy Diagnosis Therapy Diagnosis: impaired ADLs and moblity Height/Weight Height (Feet): 6 Height (Inches): 0.00 Weight (Pounds): 191 Weight (Ounces): 0.0 Precautions Precautions/Isolations: Fall Prevention, Standard Precautions Safety Interventions: None Weight Bear Status Weight Bearing Restriction: Weight Bearing/Tolerated Referral Referral Reason: Activity Tolerance, Self Care, Evaluation/Treatment, [facility] Medical History Additional Medical History per H&P: "Pt is a 73yoCM with a PMH of alcohol abuse, HTN, tobacco abuse, COPD, pancreatitis who presented the ER due to weakness. He states this started a few weeks ago but worsened yesterday and was unable to stand. His was unable to lift him as well and was brought to the ER for evaluation. He states this started a few weeks ago when he was diagnosed with pancreatitis. He has had chronic diarrhea these entire time as well. He reports a 40lb weight loss" Current History Surgeries: Coronary Stent, Gallbladder, Joint Replacement Currently Using CPAP: Yes Currently Using BIPAP: No Cardiac: Coronary Artery Disease, Hypertension Sexually Transmitted Disease: No HIV/AIDS: No Genitourinary: Kidney Stones Gastrointestinal: Gastroesophageal Reflux, Pancreatitis Musculoskeletal: Arthritis Cancer: Skin What Type of Treatment Did You: Surgical Intervention History of Blood Disorders: No Adverse Reaction to Blood [place]: No Reviewed History: Yes Social History Home: Single Level Current Living Status: Spouse Entry Into Home: Level Entry ADL-Prior Level of Function Therapy Code Descriptions/Definitions Functional [place] Measure: 0=Not Assessed/NA 4=Minimal Assistance 1=Total Assistance 5=Supervision or Setup 2=Maximal Assistance 6=Modified [place] 3=Moderate Assistance 7=Complete [place] Therapy Quality Codes: 6 Independent with activity with or without an assistive device 5 Patient requires set up or clean up by helper. Patient completes activity by themselves 4 Supervision or touching assist (CGA). [place] provide cues , steadying assist 3 The helper provides less than half the effort to complete the activity 2 The helper provides more than half the effort to complete the activity 1 Dependent. The helper does all the effort to complete an activity 7 Patient refused to complete or attempt activity 9 The patient did not perform the activity before the current illness or injury 88 Not attempted due to Medical conditions or safety concerns Functional Abilities and Goals: Independent: Patient completed the activities by him/herself, with or without an assistive device, with no assistance from a helper. Needed Some Help: Patient needed partial assistance from another person to complete activities. Dependent: A helper completed the activities for the patient. Unknown: Not Applicable: ADL PLOF Comments indep PLOF with ADLS and functional mobility using no AD Self Care: Independent Functional Cognition: Independent DME/Equipment: Bath Chair, Shower Drive Self: Yes OT Current Status Subjective pt sitting in [facility] upon OT arrival. pt son and present in room. pt agreed to O T session. pt stated he was receiving pulmonary rehab PLOF but stop going secondary to endurance. pt reports no pain. Pain Numeric Pain Scale: 0-No Pain Mental Status/Objective Patient Orientation: Normal For Age Current Glasses/Contacts: Yes Hearing Aids: No Dentures/Partials: No Hand Dominance: Right Upper Extremity ROM WFL Upper Extremity Coordination WFL finger to nose WFL opposition Upper Extremity Sensation WFL light touch WFL temp Upper Extremity Strength 4+/5 MMT ADL-Treatment Therapy Code Descriptions/Definitions Functional [place] Measure: 0=Not Assessed/NA 4=Minimal Assistance 1=Total Assistance 5=Supervision or Setup 2=Maximal Assistance 6=Modified [place] 3=Moderate Assistance 7=Complete [place] Therapy Quality Codes: 6 Independent with activity with or without an assistive device 5 Patient requires set up or clean up by helper. Patient completes activity by themselves 4 Supervision or touching assist (CGA). [place] provide cues , steadying assist 3 The helper provides less than half the effort to complete the activity 2 The helper provides more than half the effort to complete the activity 1 Dependent. The helper does all the effort to complete an activity 7 Patient refused to complete or attempt activity 9 The patient did not perform the activity before the current illness or injury 88 Not attempted due to Medical conditions or safety concerns Eating (FIM): 7 Grooming (FIM): 5 (close SBA while standing at sink to wash hands ) Upper Body Dressing (FIM): 5 (set up. extract puller shirt ) Lower Body Dressing (FIM): 4 (CGA for safety/ balance. pt demo ability to misty/ doff niko shoes. ) Transfers (B, C, W/C) (FIM): 4 (use of RW. CGA fro safety/ balance. noted 1 LOB pt self corrected. ) noted decrease activity tolerance during activities. post session, pt sitting in recliner chair, all needs met. NSG present in room. Education OT Patient Education: Energy conservation, Modified ADL techniques, Progress toward Goal/Update tx plan, Purpose of tx/functional activities, Safety issues, Transfer techniques Teaching Recipient: Patient Teaching Methods: Demonstration, Discussion Response to Teaching: Verbalize Understanding, Return Demonstration OT Short Term Goals Short Term Goals Grooming(FIM): 6 Transfers (B,C,W/C) (FIM): 6 1=Demonstrate adherence to instructed precautions during ADL tasks. 2=Patient will verbalize/demonstrate understanding of assistive devices/modifications for ADL. 3=Patient will improve strength/tolerance for activity to enable patient to perform ADL's. OT Diesel Truck Mechanic Goals Diesel Truck Mechanic Goals Time Frame: Jan 08, 2019 Grooming(FIM): 6 Bathing(FIM): 6 Lower Body Dressing(FIM): 6 Toileting(FIM): 6 Transfers (B,C,W/C) (FIM): 6 Toilet/Commode Transfer(FIM): 6 Additional Goals: 1-Demonstrate ADL Tasks, 2-Verbalize Understanding, 3- ImproveStrength/Jordy 1=Demonstrate adherence to instructed precautions during ADL tasks. 2=Patient will verbalize/demonstrate understanding of assistive devices/modifications for ADL. 3=Patient will improve strength/tolerance for activity to enable patient to perform ADL's. OT Education/Plan Problem List/Assessment Assessment: Decreased Activ Tolerance, Impaired Funct Balance pt presents with functional limitaions affecting areas of ADLs and functional m obility with the above mention deficits. pt would benefit from OT services to increase indep with ADLS and functional mobility. pt demo one LOB during functional mobility but able to self correct. recommended home with family support when medically stable. Discharge Recommendations Plan/Recommendations: Continue POC Treatment Plan/Plan of Care Treatment,Training & Education: Yes Patient would benefit from OT for education, treatment and training to promote independence in ADL's, mobility, safety and/or upper extremity function for ADL's. Plan of Care: ADL Retraining, Functional Mobility, Group Exercise/Act as Ind, UE Funct Exercise/Act Treatment Duration: Jan 08, 2019 Frequency: 5 times per week Estimated Hrs Per Day: .25 hour per day Agreement: Yes Rehab Potential: Good Time/GCodes Start Time: 10:55 Stop Time: 11:20 Billed Treatment Time EVM 15 minutes ADL 10 minutes, 1 unit ANNE SPENCE OT Dec 25, 2018 11:19
[2018-12-25] MEDS ORDERED: POT PHOS/NA PHOS (K-PHOS NEUTRAL) PO ONE (14:30)
--- NOTE | 2018-12-25 14:37 | Progress Note - Hospitalist ---
Subjective HPI/CC On Admission Date Seen by Provider: Dec 25, 2018 Time Seen by Provider: 08:30 Weakness Subjective/Events-last exam He denies any current complaints or concerns. He denies any fevers or chills. He denies any chest pain or shortness of breath. Denies any cough. He denies any abdominal pain, diarrhea, or constipation. He denies any nausea or vomiting. Objective Exam Vital Signs Vital Signs Date Time Temp Pulse Resp B/P (MAP) Pulse Ox O2 Delivery O2 Flow Rate FiO2 12/25/18 11:01 97.3 69 20 148/69 (95) 98 Room Air 12/25/18 05:58 2.00 Capillary Refill : Less Than 3 Seconds General Appearance: No Apparent Distress, WD/WN HEENT: PERRL/EOMI, Pharynx Normal Neck: Normal Inspection, Supple Respiratory: Lungs Clear, Normal Breath Sounds, No Respiratory Distress Cardiovascular: Regular Rate, Rhythm, No Edema, No Murmur Gastrointestinal: Normal Bowel Sounds, Non Tender, Soft Extremity: Normal Inspection, No Pedal Edema Neurologic/Psychiatric: Alert, Oriented x3 Skin: Normal Color, Warm/Dry Lymphatic: No Adenopathy Results/Procedures Lab Laboratory Tests 12/25/18 02:38 Patient resulted labs reviewed. Imaging: Reviewed Imaging Report Assessment/Plan Assessment and Plan Assess & Plan/Chief Complaint Atrial fibrillation with rapid ventricular response Hypertension Coronary artery disease Peripheral artery disease Hyperlipidemia Previously on Cardizem GTT for rate control Continue metoprolol for A. fib Cardiology and pulmonary consults placed, appreciate recommendations Nausea and vomiting Weight loss Recent pancreatitis Gen. surgery consulted, planning for EGD/colonoscopy on Tuesday CT abdomen today GERD Continue PPI Tobacco abuse Nicotine patch as needed Alcohol dependence Last drink approximately 3 weeks ago Hypophosphatemia Hypokalemia, resolved Hyponatremia Hypomagnesemia, resolved Continue to monitor replace as needed Diagnosis/Problems Diagnosis/Problems (1) Atrial fibrillation with rapid ventricular response Status: Acute (2) HTN (hypertension) Status: Acute (3) Weight loss, unintentional (4) Nausea & vomiting Clinical Quality Measures DVT/VTE Risk/Contraindication: Risk Factor Score Per Nursin RFS Level Per Nursing on Admit: 4+=Very High RUBI CASTRO MD Dec 25, 2018 14:37
--- NOTE | 2018-12-25 16:56 | Diagnostic Imaging Report ---
PROCEDURE: CT abdomen without contrast. TECHNIQUE: Multiple contiguous axial images were obtained through the abdomen without the use of intravenous contrast. Auto Exposure Controls were utilized during the CT exam to meet ALARA standards for radiation dose reduction. INDICATION: Nausea, vomiting, pancreatitis COMPARISONS: 12/22/2017 and 05/07/2014 FINDINGS: Small right and trace left bibasilar pleural effusions. Bibasilar reticular opacities are present, slightly increased since the prior examination from November 2017. Cholecystectomy. Diffusely decreased density of the liver. The unenhanced liver is otherwise unremarkable. The spleen is unremarkable. The adrenal glands are unremarkable. The pancreas is unremarkable. 0.9 cm exophytic hyperdensity is seen arising from the lateral aspect of the mid right kidney, relatively similar the prior exam from 2014. The right kidney and visualized portions of the right ureter are otherwise unremarkable. Prominent exophytic left renal hypodensity is again identified, measuring up to 7.5 x 6.8 cm, increased in size since the prior examination when it measured up to 5.5 x 4.3 cm. Peripheral hyperdensities are again identified associated with this lesion. Additional hypodensity within the medial aspect of the left kidney is again identified and unchanged. The left kidney is otherwise unremarkable. A 0.2 cm hyperdensity is noted within the left renal pelvis at the left ureteropelvic junction. There is no resulting left-sided hydronephrosis. This is essentially only seen on series 2, image 41. The remainder of the visualized left ureter is unremarkable. Extensive vascular calcifications within the abdominal aorta with fusiform ectasia of the infrarenal abdominal aorta measuring up to 2.9 cm without overt aneurysm. No bowel obstruction or pneumatosis within the [id number]. 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 No significant adenopathy, free air, or free fluid within the abdomen. No acute osseous abnormality with scattered osseous degenerative changes. IMPRESSION: A 2 mm calculus within the left ureteropelvic junction without resulting hydronephrosis, new from the prior exam. Small right and trace left bibasilar pleural effusions. This is associated with increasing interstitial edema versus fibrosis. Increasing left renal hypodensity with associated peripheral hyperdensities. Previous imaging has demonstrated this likely relates to a Bosniak 2 cyst, though this has significantly increased in size since the prior examination. Renal ultrasound is recommended to ensure there is no underlying solid components. Fatty infiltration of the liver. Cholecystectomy. Ectasia of the infrarenal abdominal aorta. Additional findings, as described above. Dictated by: Dictated on workstation # [id number]
[2018-12-26 04:00] VITALS: BP 146/82
[2018-12-26 06:07] LABS: BASOPHILS % (AUTO) 1 % (0-10); EOSINOPHILS # (AUTO) 0.1 10^3/uL (0.0-0.3); EOSINOPHILS % (AUTO) 4 % (0-10); HEMATOCRIT 25 % (40-54); HEMOGLOBIN 8.6 G/DL (13.3-17.7); LYMPHOCYTES # (AUTO) 0.9 X 10^3 (1.0-4.0); LYMPHOCYTES % (AUTO) 27 % (12-44); MEAN CORPUSCULAR HEMOGLOBIN 38 PG (25-34); MEAN CORPUSCULAR HGB CONC 34 G/DL (32-36); MEAN CORPUSCULAR VOLUME 111 FL (80-99); MEAN PLATELET VOLUME 11.2 FL (7.4-10.4); MONOCYTES # (AUTO) 0.3 X 10^3 (0.0-1.0); MONOCYTES % (AUTO) 10 % (0-12); NEUTROPHILS % (AUTO) 59 % (42-75); PLATELET COUNT 89 10^3/uL (130-400); WHITE BLOOD COUNT 3.5 10^3/uL (4.3-11.0)
[2018-12-26 06:20] LABS: BUN/CREATININE RATIO 11; CALCIUM 7.4 MG/DL (8.5-10.1); CARBON DIOXIDE 24 MMOL/L (21-32); CHLORIDE 102 MMOL/L (98-107); CREATININE SERUM 0.75 MG/DL (0.60-1.30); GFR ESTIMATED > 60; GLUCOSE 98 MG/DL (70-105); MAGNESIUM 1.9 MG/DL (1.6-2.4); POTASSIUM 3.9 MMOL/L (3.6-5.0); SODIUM 133 MMOL/L (135-145)
[2018-12-26 08:00] VITALS: BP 132/70
[2018-12-26] MEDS: PANTOPRAZOLE 40 MG (PROTONIX) VIAL IV SCH (08:09)
[2018-12-26] MEDS: meTOprolol SUCCINATE 100 MG (TOPROL XL) TAB PO SCH (08:09)
--- NOTE | 2018-12-26 10:25 | Progress Note - Cardiology ---
Cardiology SOAP Progress Note Subjective: Sitting up in bed. States he is feeling better than at the time of admission. Continued c/o gen weakness. No c/o palpitations, syncope, near syncope or LE swelling. No c/o CP. No c/o dyspnea at rest, chronic mild to mod dyspnea with exertion which he feels is unchanged. Continue n/v with eating, but able to keep liquids down. C/O diarrhea. Objective: I&O/Vital Signs 12/26/18 12/26/18 12/26/18 12/26/18 04:00 07:00 08:00 08:08 Temp 98.0 98.0 Pulse 66 74 76 Resp 20 20 B/P (MAP) 146/82 (103) 132/70 (90) Pulse Ox 97 99 O2 Delivery Room Air Room Air Room Air 12/26/18 12/26/18 12:00 13:00 Temp 97.4 Pulse 66 62 Resp 20 B/P (MAP) 150/79 (102) Pulse Ox 100 O2 Delivery Room Air 12/26/18 00:00 Intake Total 1945 ml Output Total 175 ml Balance 1770 ml Weight (Pounds): 193 Weight (Ounces): 6.0 Weight (Calculated Kilograms): 87.719260 Constitutional: AAO x 3 Respiratory: No accessory muscle use, No respiratory distress; chest expansion is symmetric, chest is bilaterally symmetric, rhonchi (scattered), other (prolonged expiratory phase) Cardiovascular: regular rate-rhythm; No JVD; S1 and S2 Gastrointestional: soft, round, audible bowel sounds Extremities: no lower extremity edema bilateral Neurologic/Psychiatric: grossly intact Skin: No rash on exposed areas, No ulcerations on exposed areas; other (multiple bruises and skin tears to arms and hands) Results/Procedures: Labs Laboratory Tests 12/26/18 05:40: White Blood Count 3.5L, Red Blood Count 2.28L, Hemoglobin 8.6L, Hematocrit 25L, Mean Corpuscular Volume 111H, Mean Corpuscular Hemoglobin 38H, Mean Corpuscular Hemoglobin Concent 34, Red Cell Distribution Width 14.0, Platelet Count 89L, Mean Platelet Volume 11.2H, Neutrophils (%) (Auto) 59, Lymphocytes (%) (Auto) 27, Monocytes (%) (Auto) 10, Eosinophils (%) (Auto) 4, Basophils (%) (Auto) 1, Neutrophils # (Auto) 2.0, Lymphocytes # (Auto) 0.9L, Monocytes # (Auto) 0.3, Eosinophils # (Auto) 0.1, Basophils # (Auto) 0.0, Sodium Level 133L, Potassium Level 3.9, Chloride Level 102, Carbon Dioxide Level 24, Anion Gap 7, Blood Urea Nitrogen 8, Creatinine 0.75, Estimat Glomerular Filtration Rate > 60, BUN/Creatinine Ratio 11, Glucose Level 98, Calcium Level 7.4L, Magnesium Level 1.9 Microbiology 12/23/18 MRSA Screen - Final, Complete MRSA not isolated A/P: Assessment: Newly diagnosed PAF (ED Sept - converted to SR) found to have electrolyte abnormalities at the time (K 2.6, Mag 0.9) Not a suitable candidate at this time for OAC for stroke prophylaxis d/t worsening pancytopenia Worsening pancytopenia of undetermined etiology- management per medical services Recent weight loss of approx 30 lbs of undetermined etiology N/V/D of undetermined etiology - medical services managing CAD - Cardiac cath of 09/19/18 showed patent RCA stents that were place in Apr 2016: Alpine Xience 3.5 x 15 mm prox and Alpine Xience 3.0 x 15 mm distally, postdilated with a 3.5 mm balloon, The rest of the vessels have diffuse, mod disease. LVEF 50-55%. Normal LVEDP Echocardiogram of December 24, [address] Jimenez concentric hypertrophy. LVEF 45-50%. Grade 1 diastolic dysfunction. AoV thickening consistent with sclerosis with mild regurg. PASP 15-20mmHg. Severe ostial left renal artery stenosis with subsequent percutaneous transluminal angioplasty and residual minimal stenosis, no dissection or distal embolization by Dr. Keen at [facility] in [place], [place] in the early CT of the chest from August 2016 showed borderline adenopathy in the axillary regions and in the subcarinal space. 7 mm pulmonary nodule in the RUL. This is followed by Dr Toya MENDOZA, treated with CPAP, followed by Dr Pittman Mild carotid arterial disease on Carotid u/s of 09/21/18 PAD - PCI of the right anterior tibial, posterior tibial and peroneal with Medtronic Nitinol 4mm x 20mm stent in the right posterior tibial December 08, [address] Langston in [place], [place]. Peripheral angio of 09/19/18: Infrarenal AAA, m od in size, just above aorto iliac bifurcation; mod diff disease of the sup fems and distal leg circulation on both sides. Patent R post tib stent Hypertension HLP - statin therapy followed by his PCP - currently being withheld d/t recent episode of pancreatitis Emphysema GERD Recent episode of pancreatitis - managed by PCP EKG of 11-03-15 showed LVH with repolarization abnormality and LAFB; not significantly changed on 09/13/18 CKD stage 2-3 H/O heavy ETOH use - now drinking one mixed drink a day per pt Tobaccoism - 2 PPD - cessation advised Plan: Newly diagnosed PAF at time of ED admission on 12-23-18 (electrolyte abnormalities at the time) - converted to SR with no further recurrence OAC being withheld at this time d/t worsening pancytopenia of undetermined etiology N/V/D with reported approx 30 lb weight loss of undetermined etiology - EGD/colo planned for tomorrow by Dr. Montejo Advise consideration of hematology consult Replace electrolytes Monitor lab closely Physician Assessment Physician Assessment Notes gen malaise. Denies cp or palp or syncope or shortness of breath at this time Lungs: fair to good bilat air entry Cor: reg Ext: no c/c/; mild, bilateral leg edema A&R * As documented in our note above that I updated (italics) and as noted below * Monitor labs * Hold off on until anticoag until source of pancytopenia found and treated * I reviewed his hospitalization records and discussed his CV issues with him and his BARNEY KINSEY WAISTBAND SETTER Dec 26, 2018 10:25 DAGO RAPHAEL MD FACP FAC CCDS Dec 26, 2018 15:26
[2018-12-26] MEDS ORDERED: MAGNESIUM CITRATE 300 ML BTL PO ONE (11:00)
[2018-12-26 12:00] VITALS: BP 150/79
--- NOTE | 2018-12-26 12:08 | Physical Therapy Daily Note ---
PT Daily Note-Current Subjective Patient continues to c/o fatigue/weakness. Agrees to PT. Pain Numeric Pain Scale: 0-No Pain Location: No Pain Reported Mental Status Patient Orientation: Normal For Age Transfers Therapy Code Descriptions/Definitions Functional [place] Measure: 0=Not Assessed/NA 4=Minimal Assistance 1=Total Assistance 5=Supervision or Setup 2=Maximal Assistance 6=Modified [place] 3=Moderate Assistance 7=Complete [place] Therapy Quality Codes: 6 Independent with activity with or without an assistive device 5 Patient requires set up or clean up by helper. Patient completes activity by themselves 4 Supervision or touching assist (CGA). [place] provide cues , steadying assist 3 The helper provides less than half the effort to complete the activity 2 The helper provides more than half the effort to complete the activity 1 Dependent. The helper does all the effort to complete an activity 7 Patient refused to complete or attempt activity 9 The patient did not perform the activity before the current illness or injury 88 Not attempted due to Medical conditions or safety concerns Transfers (B, C, W/C) (FIM): 7 Scootin Rollin Supine to/from Sit: 7 Sit to/from Stand: 7 Bed to/from Chair: 7 Weight Bearing Right Lower Extremity: Right Weight Bearing/Tolerated Left Lower Extremity: Left Weight Bearing/Tolerated Gait Training Gait (FIM): 5 Distance (FIM): 3=150 ft Distance: 150' Gait Level of Assist: 5 Gait Assistive Device: FWW very slow, steady gait sequence Exercises Seated Therapy Exercises: Ankle pumps, Long arc quads Seated Reps: 25 Assessment Patient dons pants and shoes with set up only. Patient tolerated treatment and is up in recliner with needs met. PT Short Term Goals Short Term Goals Time Frame: Dec 31, 2018 Transfers (B,C,W/C) (FIM): 6 Gait (FIM): 6 Distance (FIM): 3=150 ft Gait Distance Comment: 300 Gait Level of Assist: 6 Gait Assistive Device: FWW PT Anode Crew Supervisor Goals [facility]ci Goals PT Anode Crew Supervisor Goals Time Frame: Jan 07, 2019 Transfers (B,C,W/C) (FIM): 7 Gait (FIM): 6 Gait distance (FIM): 3=150 ft Distance: 500' Gait Level of Assist: 6 Gait Assistive Device: FWW PT Plan Treatment/Plan Treatment Plan: Continue Plan of Care Treatment Plan: Bed Mobility, Education, Functional Activity Jordy, Functional Strength, Gait, Safety, Therapeutic Exercise, Transfers Treatment Duration: Jan 07, 2019 Frequency: 6 times per week Estimated Hrs Per Day: .25 hour per day Patient and/or Family Agrees t: Yes Time/GCodes Time In: 1055 Time Out: 1111 Total Billed Treatment Time: 16 Total Billed Treatment 1 visit FA 16 min GUY SANTOS PT Dec 26, 2018 12:08
[2018-12-26] MEDS: MAGNESIUM CITRATE 300 ML BTL PO SCH ×2 (13:09→16:09)
--- NOTE | 2018-12-26 13:40 | Progress Note ---
Subjective Date Seen by a Provider: Dec 26, 2018 Time Seen by a Provider: 13:00 Subjective/Events-last exam doing ok. no new complaints. continues to be anemic however no signs clinical bleed. Objective Exam Vital Signs Date Time Temp Pulse Resp B/P (MAP) Pulse Ox O2 Delivery O2 Flow Rate FiO2 12/26/18 12:00 97.4 66 20 150/79 (102) 100 Room Air 12/26/18 08:08 Room Air 12/26/18 08:00 98.0 76 20 132/70 (90) 99 Room Air 12/26/18 07:00 74 12/26/18 04:00 98.0 66 20 146/82 (103) 97 Room Air 12/26/18 01:00 71 12/25/18 23:59 97.9 66 18 145/78 (100) 95 Room Air 12/25/18 21:00 95 Room Air 12/25/18 20:00 97.6 60 20 146/65 (92) 100 Room Air 12/25/18 19:00 76 12/25/18 16:00 97.6 66 20 145/82 (103) 100 Room Air 12/25/18 13:41 70 I & O 12/26/18 07:00 Intake Total 2645 ml Output Total 600 ml Balance 2045 ml Capillary Refill : Less Than 3 Seconds General Appearance: No Apparent Distress HEENT: PERRL/EOMI Neck: Full Range of Motion Respiratory: Rhonci, Wheezing Cardiovascular: Regular Rate, Rhythm Gastrointestinal: normal bowel sounds, non tender, soft Extremity: Normal Capillary Refill Neurologic/Psychiatric: Alert, Oriented x3 Skin: Normal Color Lymphatic: No Adenopathy Results Lab Laboratory Tests 12/26/18 05:40: White Blood Count 3.5L, Red Blood Count 2.28L, Hemoglobin 8.6L, Hematocrit 25L, Mean Corpuscular Volume 111H, Mean Corpuscular Hemoglobin 38H, Mean Corpuscular Hemoglobin Concent 34, Red Cell Distribution Width 14.0, Platelet Count 89L, Mean Platelet Volume 11.2H, Neutrophils (%) (Auto) 59, Lymphocytes (%) (Auto) 27 , Monocytes (%) (Auto) 10, Eosinophils (%) (Auto) 4, Basophils (%) (Auto) 1, Neutrophils # (Auto) 2.0, Lymphocytes # (Auto) 0.9L, Monocytes # (Auto) 0.3, Eosinophils # (Auto) 0.1, Basophils # (Auto) 0.0, Sodium Level 133L, Potassium Level 3.9, Chloride Level 102, Carbon Dioxide Level 24, Anion Gap 7, Blood Urea Nitrogen 8, Creatinine 0.75, Estimat Glomerular Filtration Rate > 60, BUN/Creatinine Ratio 11, Glucose Level 98, Calcium Level 7.4L, Magnesium Level 1.9 Microbiology 12/23/18 MRSA Screen - Final, Complete MRSA not isolated Assessment/Plan Assessment/Plan Assess & Plan/Chief Complaint anemia with hx a-fib and RVR with hx PUD and absence from colonoscopy >10 years. EGD and colonoscopy tomorrow. Clinical Quality Measures DVT/VTE Risk/Contraindication: Risk Factor Score Per Nursin RFS Level Per Nursing on Admit: 4+=Very High PHILLY ALBERT MD Dec 26, 2018 13:40
[2018-12-26] MEDS ORDERED: METO-310 PO (13:49)
--- NOTE | 2018-12-26 14:14 | Progress Note - Hospitalist ---
Subjective HPI/CC On Admission Date Seen by Provider: Dec 26, 2018 Time Seen by Provider: 10:45 Weakness Subjective/Events-last exam He denies any fevers or chills. He denies any chest pain or shortness of breath . He denies any abdominal pain, nausea, vomiting. He does not have very good appetite. He has been walking with a walker. He is not excited about doing the colonoscopy prep tonight. Objective Exam Vital Signs Vital Signs Date Time Temp Pulse Resp B/P (MAP) Pulse Ox O2 Delivery O2 Flow Rate FiO2 12/26/18 13:00 62 12/26/18 12:00 97.4 20 150/79 (102) 100 Room Air 12/25/18 05:58 2.00 Capillary Refill : Less Than 3 Seconds General Appearance: No Apparent Distress, WD/WN HEENT: PERRL/EOMI, Pharynx Normal Neck: Normal Inspection, Supple Respiratory: Lungs Clear, Normal Breath Sounds, No Respiratory Distress Cardiovascular: Regular Rate, Rhythm, No Edema, No Murmur Gastrointestinal: Normal Bowel Sounds, Non Tender, Soft Extremity: Normal Inspection, Non Tender Neurologic/Psychiatric: Alert; No Disoriented Skin: Normal Color, Warm/Dry Results/Procedures Lab Laboratory Tests 12/26/18 05:40 Patient resulted labs reviewed. Assessment/Plan Assessment and Plan Assess & Plan/Chief Complaint Nausea and vomiting Weight loss Recent pancreatitis Gen. surgery consulted, planning for EGD/colonoscopy on Tuesday CT abdomen with no acute findings, no signs of chronic pancreatitis Atrial fibrillation with rapid ventricular response Hypertension Coronary artery disease Peripheral artery disease Hyperlipidemia Previously on Cardizem GTT for rate control Continue metoprolol for A. fib Cardiology and pulmonary following, appreciate recommendations GERD Continue PPI Tobacco abuse Nicotine patch refused Alcohol dependence Last drink approximately 3 weeks ago Hypophosphatemia Hypokalemia, resolved Hyponatremia Hypomagnesemia, resolved Continue to monitor replace as needed Diagnosis/Problems Diagnosis/Problems (1) Atrial fibrillation with rapid ventricular response Status: Acute (2) HTN (hypertension) Status: Chronic (3) Weight loss, unintentional Status: Chronic (4) Nausea & vomiting Status: Acute Clinical Quality Measures DVT/VTE Risk/Contraindication: Risk Factor Score Per Nursin RFS Level Per Nursing on Admit: 4+=Very High RUBI CASTRO MD Dec 26, 2018 14:14
--- NOTE | 2018-12-26 14:15 | NUR ---
Pastoral care visit.
--- NOTE | 2018-12-26 14:19 | Occupational Ther Daily Note ---
OT Current Status-Daily Note Subjective Pt alert, sitting in recliner. Friends present in room. Pt stated that he had just gotten a shower and his legs gave out as he was sitting down in recliner. Pt agrees to therapy only if he can participate in the chair. Mental Status/Objective Patient Orientation: Person, Place, Time, Situation Therapy Code Descriptions/Definitions Functional [place] Measure: 0=Not Assessed/NA 4=Minimal Assistance 1=Total Assistance 5=Supervision or Setup 2=Maximal Assistance 6=Modified [place] 3=Moderate Assistance 7=Complete [place] Attachments: IV Other Treatment Pt stated that nrsg assisted with lower body bathing and dressing. Pt completed 3 UE exercises against gravity, 2 sets 10 reps. Pt took recovery breaks between each set and 2 breaks between reps. After therapy, pt sitting in recliner with call light/phone in reach. All needs met in room. OT Short Term Goals Short Term Goals Grooming(FIM): 6 Transfers (B,C,W/C) (FIM): 6 1=Demonstrate adherence to instructed precautions during ADL tasks. 2=Patient will verbalize/demonstrate understanding of assistive devices/modifications for ADL. 3=Patient will improve strength/tolerance for activity to enable patient to perform ADL's. OT Banking Paralegal Goals Banking Paralegal Goals Time Frame: Jan 08, 2019 Grooming(FIM): 6 Bathing(FIM): 6 Lower Body Dressing(FIM): 6 Toileting(FIM): 6 Transfers (B,C,W/C) (FIM): 6 Toilet/Commode Transfer(FIM): 6 Additional Goals: 1-Demonstrate ADL Tasks, 2-Verbalize Understanding, 3- ImproveStrength/Jordy 1=Demonstrate adherence to instructed precautions during ADL tasks. 2=Patient will verbalize/demonstrate understanding of assistive devices/modifications for ADL. 3=Patient will improve strength/tolerance for activity to enable patient to perform ADL's. OT Education/Plan Problem List/Assessment Assessment: Decreased Activ Tolerance, Impaired Self-Care Skills pt presents with functional limitaions affecting areas of ADLs and functional mobility with the above mention deficits. pt would benefit from OT services to increase indep with ADLS and functional mobility. pt demo one LOB during functional mobility but able to self correct. recommended home with family support when medically stable. Discharge Recommendations Plan/Recommendations: Continue POC Treatment Plan/Plan of Care Patient would benefit from OT for education, treatment and training to promote independence in ADL's, mobility, safety and/or upper extremity function for ADL's. Plan of Care: ADL Retraining, Functional Mobility, Group Exercise/Act as Ind, UE Funct Exercise/Act Treatment Duration: Jan 08, 2019 Frequency: 5 times per week Estimated Hrs Per Day: .25 hour per day Agreement: Yes Rehab Potential: Good Time/GCodes Start Time: 12:47 Stop Time: 12:57 Total Time Billed (hr/min): 10 Billed Treatment Time 1 visit-EX 1 (10 min) GEOVANI VAZQUEZ Dec 26, 2018 14:19
[2018-12-26] MEDS ORDERED: LIPA1CAP4 PO (15:00)
--- NOTE | 2018-12-26 15:01 | NUR ---
CALLED [facility] FOR A LIST OF RECENTLY FILLED MEDICATIONS WELL HAD A LIST FAXED OVER FROM THE [facility]. DU FILLED: 12-18-18 REGLAN 10MG HS AND Q6H PRN 10-20-18 METOPROLOL ER 100MG DAILY #30 (STATES HE THINKS HE IS SUPPOSED TO BE TAKING) 09-26-18 LOMOTIL Q4H PRN (DID NOT REPORT HE IS CURRENTLY TAKING) 09-13-18 ASPIRIN 81MG DAILY #36 (NO LONGER TAKING) 08-01-18 POTASSIUM 10MEQ BID #60 (NO LONGER TAKING) MARY FILLED: 12-07-18 LOSARTAN 100MG DAILY #30 11-27-18 OMEPRAZOLE 20MG DAILY #90 11-17-18 ALBUTEROL INHALER 2 PUFFS QID PRN #3 11-17-18 ZOFRAN 8MG 1/2 Q4H PRN #30 (NO LONGER TAKING) 10-31-18 CREON 24,000 UNITS 1 CAP DAILY AND BEFORE SNACKS PRN PANCREATIC ENZYME REPLACEMENT #180 05-29-18 FUROSEMIDE 20MG DAILY #90 (NO LONGER TAKING) 11-20-17 LORATADINE 10MG DAILY #30 (NO LONGER TAKING) 11-07-17 SPIRIVA 2.5MCG 2 PUFFS DAILY #3 (STATES HE USES PRN) HE ALSO STATES HE USES ARTIFICIAL TEARS NEEDED
[2018-12-26 16:00] VITALS: BP 180/86
[2018-12-26] MEDS: ONDANSETRON 4 MG/2 ML (SDV) Z0FRAN IVP PRN ×2 (16:04→20:55)
--- NOTE | 2018-12-26 16:31 | Diagnostic Imaging Report ---
INDICATION: Nausea and vomiting as well as hypertension. COMPARISON: Comparison is made with CT study from 12/25/2018 and 12/22/2017. FINDINGS: Right kidney measures 10.6 x 5.7 x 4.5 cm and the left kidney measures 11.7 x 5.6 x 4.8 cm. Dominant cyst lower pole left kidney is noted measuring 9.3 x 5.8 x 7.9 cm. No definite solid renal mass is identified. No calculus or hydronephrosis is detected. Renal Doppler is significantly limited due to bowel gas. Mid and distal right renal artery shows normal velocity. Only the distal left renal artery could be visualized and appears unremarkable. Waveforms are grossly unremarkable. IMPRESSION: 1. Large left lower pole renal cyst. No solid renal mass is identified. There is no hydronephrosis. 2. Limited study for evaluation for renal artery stenosis due to overlying bowel gas. Dictated by: Dictated on workstation # [id number]
[2018-12-26 19:29] VITALS: BP 174/85
[2018-12-26 23:34] VITALS: BP 170/78
[2018-12-27] VITALS (24 sets, daily range): BP systolic 133–210; BP diastolic 63–95
[2018-12-27 05:14] LABS: BASOPHILS % (AUTO) 0 % (0-10); EOSINOPHILS # (AUTO) 0.1 10^3/uL (0.0-0.3); EOSINOPHILS % (AUTO) 3 % (0-10); HEMATOCRIT 26 % (40-54); HEMOGLOBIN 8.7 G/DL (13.3-17.7); LYMPHOCYTES # (AUTO) 0.9 X 10^3 (1.0-4.0); LYMPHOCYTES % (AUTO) 28 % (12-44); MEAN CORPUSCULAR HEMOGLOBIN 37 PG (25-34); MEAN CORPUSCULAR HGB CONC 34 G/DL (32-36); MEAN CORPUSCULAR VOLUME 111 FL (80-99); MEAN PLATELET VOLUME 10.5 FL (7.4-10.4); MONOCYTES # (AUTO) 0.4 X 10^3 (0.0-1.0); MONOCYTES % (AUTO) 11 % (0-12); NEUTROPHILS % (AUTO) 58 % (42-75); PLATELET COUNT 120 10^3/uL (130-400); RED CELL DISTRIBUTION WIDTH 13.9 % (10.0-14.5); WHITE BLOOD COUNT 3.4 10^3/uL (4.3-11.0)
[2018-12-27 05:42] LABS: BUN/CREATININE RATIO 9; CALCIUM 7.6 MG/DL (8.5-10.1); CARBON DIOXIDE 24 MMOL/L (21-32); CHLORIDE 102 MMOL/L (98-107); CREATININE SERUM 0.74 MG/DL (0.60-1.30); GFR ESTIMATED > 60; GLUCOSE 88 MG/DL (70-105); POTASSIUM 3.6 MMOL/L (3.6-5.0); SODIUM 134 MMOL/L (135-145)
[2018-12-27] MEDS ORDERED: FOLIC ACID 1 MG TAB PO SCH (07:34)
[2018-12-27] MEDS: PANTOPRAZOLE 40 MG (PROTONIX) VIAL IV SCH (08:22)
[2018-12-27] MEDS: meTOprolol SUCCINATE 100 MG (TOPROL XL) TAB PO SCH (08:22)
[2018-12-27] MEDS ORDERED: lisINopril 20 MG (PRINIVIL) TABLET PO SCH (09:00)
--- NOTE | 2018-12-27 09:38 | Physical Therapy Daily Note ---
PT Daily Note-Current Subjective Patient in bed pre tx, agrees to PT, has no complaints of pain but states that he has weakness in his left hip. Appearance Patient sitting EOB post tx with nurse call, phone, tray, in room. Mental Status Patient Orientation: Person, Place, Situation Transfers Therapy Code Descriptions/Definitions Functional [place] Measure: 0=Not Assessed/NA 4=Minimal Assistance 1=Total Assistance 5=Supervision or Setup 2=Maximal Assistance 6=Modified [place] 3=Moderate Assistance 7=Complete [place] Therapy Quality Codes: 6 Independent with activity with or without an assistive device 5 Patient requires set up or clean up by helper. Patient completes activity by themselves 4 Supervision or touching assist (CGA). [place] provide cues , steadying assist 3 The helper provides less than half the effort to complete the activity 2 The helper provides more than half the effort to complete the activity 1 Dependent. The helper does all the effort to complete an activity 7 Patient refused to complete or attempt activity 9 The patient did not perform the activity before the current illness or injury 88 Not attempted due to Medical conditions or safety concerns Transfers (B, C, W/C) (FIM): 5 Scootin Rollin Supine to/from Sit: 6 Sit to/from Stand: 5 Bed to/from Chair: 5 Weight Bearing Right Lower Extremity: Right Weight Bearing/Tolerated Left Lower Extremity: Left Weight Bearing/Tolerated Gait Training Gait (FIM): 4 Distance: 150' Gait Level of Assist: 4 Gait Persons Needed: 1 Gait Assistive Device: FWW Slow ambulation, mostly SBA but CGA on the way back due to left hip weakness. Exercises Seated Therapy Exercises: Ankle pumps, Long arc quads Seated Reps: 15 Treatments ambulation, LE exercise Assessment Current Status: Fair Progress improved endurance PT Short Term Goals Short Term Goals Time Frame: Dec 31, 2018 Transfers (B,C,W/C) (FIM): 6 Gait (FIM): 6 Distance (FIM): 3=150 ft Gait Distance Comment: 300 Gait Level of Assist: 6 Gait Assistive Device: FWW PT Alf Goals Stull Hewer Goals PT Alf Goals Time Frame: Jan 07, 2019 Transfers (B,C,W/C) (FIM): 7 Gait (FIM): 6 Gait distance (FIM): 3=150 ft Distance: 500' Gait Level of Assist: 6 Gait Assistive Device: FWW PT Plan Problem List Problem List: Activity Tolerance, Functional Strength, Safety, Balance, Gait, Transfer Treatment/Plan Treatment Plan: Continue Plan of Care Treatment Plan: Bed Mobility, Education, Functional Activity Jordy, Functional Strength, Gait, Safety, Therapeutic Exercise, Transfers Treatment Duration: Jan 07, 2019 Frequency: 6 times per week Estimated Hrs Per Day: .25 hour per day Patient and/or Family Agrees t: Yes Safety Risks/Education Patient Education: Gait Training, Transfer Techniques, Correct Positioning, Safety Issues Teaching Recipient: Patient Teaching Methods: Demonstration, Discussion Response to Teaching: Reinforcement Needed Time/GCodes Time In: 917 Time Out: 929 Total Billed Treatment Time: 12 Total Billed Treatment 1 visit GT Tommie' STACY LOPEZ PT Dec 27, 2018 09:38
--- NOTE | 2018-12-27 10:38 | Conscious Sedation/ASA ---
Conscious Sedation Pre-Proced Time 09:00 ASA Score 2 For ASA 3 and 4: Consider anesthesia and medical clearance. Also, for patients with a history of failed moderate sedation consider anesthesia. Airway Lungs Heart ASA score ASA 1: a normal healthy patient ASA 2: a patient with a mild systemic disease (mid diabetes, controlled hypertension, obesity ASA 3: a patient with a severe systemic disease that limits activity (angina, COPD, prior Myocardial infarction) ASA 4: a patient with an incapacitating disease that is a constant threat to life (CHF, renal failure) ASA 5: a moribund patient not expected to survive 24 hrs. (ruptured aneurysm) ASA 6: a declared brain- patient whose organs are being harvested. For emergent operations, add the letter E after the classification Mallampati Classification Grade 2 Sedation Plan Analgesia, Amnesia, Plan communicated to team members, Discussed options with patient/fam, Discussed risks with patient/fam The patient is an appropriate candidate to undergo the planned procedure, sedation, and anesthesia. The patient immediately re-assessed prior to indication. PHILLY ALBERT MD Dec 27, 2018 10:37
--- NOTE | 2018-12-27 10:39 | Progress Note-Pre Operative ---
Pre-Operative Progress Note H&P Reviewed The H&P was reviewed, patient examined and no changes noted. Date Seen by Provider: Dec 27, 2018 Time Seen by Provider: 10:00 Date H&P Reviewed: Dec 27, 2018 Time H&P Reviewed: 09:00 Pre-Operative Diagnosis: anemia with hx GERD PHILLY ALBERT MD Dec 27, 2018 10:39
--- NOTE | 2018-12-27 13:21 | Progress Note - Cardiology ---
Cardiology SOAP Progress Note Subjective: No cp or palp or syncope Gen weakness and malaise Objective: I&O/Vital Signs 12/27/18 12/27/18 12/27/18 12/27/18 04:21 07:00 08:00 09:00 Temp 97.6 98.6 Pulse 62 63 63 Resp 20 18 B/P (MAP) 176/81 (112) 133/63 (86) Pulse Ox 100 100 100 O2 Delivery Room Air Room Air Room Air 12/27/18 12:00 Temp 97.8 Pulse 60 Resp 20 B/P (MAP) 178/75 (109) Pulse Ox 100 O2 Delivery Room Air 12/27/18 00:00 Intake Total 1270 ml Balance 1270 ml Weight (Pounds): 190 Weight (Ounces): 0.4 Weight (Calculated Kilograms): [id number] Constitutional: AAO x 3 Respiratory: No accessory muscle use, No respiratory distress; chest expansion is symmetric, chest is bilaterally symmetric, rhonchi (scattered), other (prolonged expiratory phase) Cardiovascular: regular rate-rhythm; No JVD; S1 and S2 Gastrointestional: soft, round, audible bowel sounds Extremities: no lower extremity edema bilateral Neurologic/Psychiatric: grossly intact Skin: No rash on exposed areas, No ulcerations on exposed areas; other (multiple bruises and skin tears to arms and hands) Results/Procedures: Labs Laboratory Tests 12/27/18 04:46: White Blood Count 3.4L, Red Blood Count 2.35L, Hemoglobin 8.7L, Hematocrit 26L, Mean Corpuscular Volume 111H, Mean Corpuscular Hemoglobin 37H, Mean Corpuscular Hemoglobin Concent 34, Red Cell Distribution Width 13.9, Platelet Count 120L, Me an Platelet Volume 10.5H, Neutrophils (%) (Auto) 58, Lymphocytes (%) (Auto) 28, Monocytes (%) (Auto) 11, Eosinophils (%) (Auto) 3, Basophils (%) (Auto) 0, Neutrophils # (Auto) 2.0, Lymphocytes # (Auto) 0.9L, Monocytes # (Auto) 0.4, Eosinophils # (Auto) 0.1, Basophils # (Auto) 0.0, Sodium Level 134L, Potassium Level 3.6, Chloride Level 102, Carbon Dioxide Level 24, Anion Gap 8, Blood Urea Nitrogen 7, Creatinine 0.74, Estimat Glomerular Filtration Rate > 60, BUN/Creatinine Ratio 9, Glucose Level 88, Calcium Level 7.6L, Magnesium Level 2.0 Microbiology 12/23/18 MRSA Screen - Final, Complete MRSA not isolated Laboratory Tests 12/26/18 05:40 12/27/18 04:46 A/P: Assessment: Newly diagnosed PAF in Dec 2018 at the time he presented with electrolyte abnormalities (K 2.6, Mag 0.9) Mild to mod pancytopenia being treated by [facility], currently stable/improving Not a suitable candidate at this time for OAC for stroke prophylaxis d/t pancytopenia Recent weight loss of approx 30 lbs of undetermined etiology N/V/D of undetermined etiology - medical services managing CAD - Cardiac cath of 09/19/18 showed patent RCA stents that were place in Apr 2016: Alpine Xience 3.5 x 15 mm prox and Alpine Xience 3.0 x 15 mm distally, postdilated with a 3.5 mm balloon, The rest of the vessels have diffuse, mod disease. LVEF 50-55%. Normal LVEDP Echocardiogram of December 24, [address] Jimenez concentric hypertrophy. LVEF 45-50%. Grade 1 diastolic dysfunction. AoV thickening consistent with sclerosis with mild regurg. PASP 15-20mmHg. Severe ostial left renal artery stenosis with subsequent percutaneous transluminal angioplasty and residual minimal stenosis, no dissection or distal embolization by Dr. Keen at [facility] in [place], [place] in the early CT of the chest from August 2016 showed borderline adenopathy in the axillary regions and in the subcarinal space. 7 mm pulmonary nodule in the RUL. This is followed by Dr Toya MENDOZA, treated with CPAP, followed by Dr Pittman Mild carotid arterial disease on Carotid u/s of 09/21/18 PAD - PCI of the right anterior tibial, posterior tibial and peroneal with Medtronic Nitinol 4mm x 20mm stent in the right posterior tibial December 08, [address] Langston in [place], [place]. Peripheral angio of 09/19/18: Infrarenal AAA, mod in size, just above aorto iliac bifurcation; mod diff disease of the sup fems and distal leg circulation on both sides. Patent R post tib stent Hypertension HLP - statin therapy followed by his PCP - currently being withheld d/t recent episode of pancreatitis Emphysema GERD Recent episode of pancreatitis - managed by PCP EKG of 11-03-15 showed LVH with repolarization abnormality and LAFB; not significantly changed on 09/13/18 CKD stage 2-3 H/O heavy ETOH use - now drinking one mixed drink a day per pt Tobaccoism - 2 PPD - cessation advised Plan: * GI w/u in progress. Await results * Continue current regimen * Not suitable for OAC at this time * Monitor labs * I answered his and his family's CV-related questions DAGO RAPHAEL MD FACP FACC CCDS Dec 27, 2018 13:21
[2018-12-27] MEDS ORDERED: LISI-552 PO (13:25)
[2018-12-27] MEDS ORDERED: FOLI1TAB24 PO (13:25)
--- NOTE | 2018-12-27 13:27 | Discharge Inst-Simple/Standard ---
Discharge Inst-Standard Discharge Medications New, Converted or Re-Newed RX: Transmitted to Pharmacy Patient Instructions/Follow Up Plan of Care/Instructions/FU: Take medications as prescribed. Follow up with Dr. Macias in about a week. Follow up with Cardiology in 2-4 weeks. Activity as Tolerated: Yes Discharge Diet: No Restrictions Return to The Hospital For: fevers, chest pain, shortness of breath, or if you feel like you are getting worse RUBI CASTRO MD Dec 27, 2018 13:27
[2018-12-27] MEDS ORDERED: APIX5TAB PO (13:41)
--- NOTE | 2018-12-27 13:49 | Progress Note - Hospitalist ---
Subjective HPI/CC On Admission Date Seen by Provider: Dec 27, 2018 Time Seen by Provider: 10:00 Weakness Subjective/Events-last exam He reports feeling hungry today. He took his entire prep yesterday and had shahnaz ral bowel movements. He denies any fevers or chills. He denies any chest pain or shortness of breath. He denies any nausea, vomiting, or abdominal pain. Objective Exam Vital Signs Vital Signs Date Time Temp Pulse Resp B/P (MAP) Pulse Ox O2 Delivery O2 Flow Rate FiO2 12/27/18 12:00 97.8 60 20 178/75 (109) 100 Room Air 12/25/18 05:58 2.00 Capillary Refill : Less Than 3 Seconds General Appearance: No Apparent Distress, WD/WN Neck: Normal Inspection, Supple Respiratory: Lungs Clear, Normal Breath Sounds, No Respiratory Distress Cardiovascular: Regular Rate, Rhythm, No Edema, No Murmur Gastrointestinal: Normal Bowel Sounds, Non Tender, Soft Extremity: Normal Inspection, Non Tender Neurologic/Psychiatric: Alert, Oriented x3 Skin: Normal Color, Warm/Dry Lymphatic: No Adenopathy Results/Procedures Lab Laboratory Tests 12/27/18 04:46 Patient resulted labs reviewed. Assessment/Plan Assessment and Plan Assess & Plan/Chief Complaint Nausea and vomiting, resolved Weight loss Recent pancreatitis Scheduled for EGD/colonoscopy today Atrial fibrillation with rapid ventricular response Hypertension Coronary artery disease Peripheral artery disease Hyperlipidemia Previously on Cardizem GTT for rate control Continue metoprolol for A. fib Planning to start Eliquis 5 mg twice daily Cardiology following, planning for follow-up in 2-4 weeks Add lisinopril for uncontrolled hypertension Pancytopenia Folate deficiency Mild leukopenia, anemia, and thrombocytopenia Leukopenia and anemia stable Thrombocytopenia improving Folate deficiency likely cause of pancytopenia Continue folic acid supplementation GERD Continue PPI Tobacco abuse Nicotine patch refused Alcohol dependence Last drink approximately 3 weeks ago Hypophosphatemia, resolved Hypokalemia, resolved Hyponatremia, resolved Hypomagnesemia, resolved Continue to monitor replace as needed Diagnosis/Problems Diagnosis/Problems (1) Atrial fibrillation with rapid ventricular response Status: Acute (2) HTN (hypertension) Status: Chronic (3) Weight loss, unintentional Status: Chronic (4) Nausea & vomiting Status: Acute (5) Pancytopenia Status: Acute (6) Folate deficiency Status: Acute Clinical Quality Measures DVT/VTE Risk/Contraindication: Risk Factor Score Per Nursin RFS Level Per Nursing on Admit: 4+=Very High RUBI CASTRO MD Dec 27, 2018 13:49
--- NOTE | 2018-12-27 13:56 | Occupational Ther Daily Note ---
OT Current Status-Daily Note Subjective Pt laying in bed at start of session with family present, pt agreeable to OT session. Pt did not report any pain, stating he is ready to go home. Mental Status/Objective Patient Orientation: Normal For Age Therapy Code Descriptions/Definitions Functional [place] Measure: 0=Not Assessed/NA 4=Minimal Assistance 1=Total Assistance 5=Supervision or Setup 2=Maximal Assistance 6=Modified [place] 3=Moderate Assistance 7=Complete [place] ADL-Treatment Grooming (FIM): 5 (SBA for safety secondary to pt swaying back and forth as he stood at the sink to wash his face.) Transfers (B, C, W/C) (FIM): 6 (Mod I supine to sit, Mod I sit to/from stand from EOB.) Other Treatment Pt laying in bed. pt performed functional mobility to bathroom with FWW. Pt co mpleted grooming at sink, then performed functional mobility to EOB. Pt completed BUE elbow flexion X30 reps. Post OT session pt seated EOB call light in reach and all needs met. Education OT Patient Education: Correct positioning, Energy conservation, Exercise program, Progress toward Goal/Update tx plan, Purpose of tx/functional activities, Transfer techniques Teaching Recipient: Patient Teaching Methods: Demonstration Response to Teaching: Verbalize Understanding OT Short Term Goals Short Term Goals Grooming(FIM): 6 Transfers (B,C,W/C) (FIM): 6 1=Demonstrate adherence to instructed precautions during ADL tasks. 2=Patient will verbalize/demonstrate understanding of assistive devices/modifications for ADL. 3=Patient will improve strength/tolerance for activity to enable patient to perform ADL's. OT Long-Term Goals Long-Term Goals Time Frame: Jan 08, 2019 Grooming(FIM): 6 Bathing(FIM): 6 Lower Body Dressing(FIM): 6 Toileting(FIM): 6 Transfers (B,C,W/C) (FIM): 6 Toilet/Commode Transfer(FIM): 6 Additional Goals: 1-Demonstrate ADL Tasks, 2-Verbalize Understanding, 3- ImproveStrength/Jordy 1=Demonstrate adherence to instructed precautions during ADL tasks. 2=Patient will verbalize/demonstrate understanding of assistive devices/modifications for ADL. 3=Patient will improve strength/tolerance for activity to enable patient to perform ADL's. OT Education/Plan Problem List/Assessment Assessment: Decreased UE Strength, Impaired Funct Balance pt presents with functional limitaions affecting areas of ADLs and functional mobility with the above mention deficits. pt would benefit from OT services to increase indep with ADLS and functional mobility. pt demo one LOB during functional mobility but able to self correct. recommended home with family support when medically stable. Discharge Recommendations Plan/Recommendations: Continue POC Treatment Plan/Plan of Care Treatment,Training & Education: Yes Patient would benefit from OT for education, treatment and training to promote independence in ADL's, mobility, safety and/or upper extremity function for ADL's. Plan of Care: ADL Retraining, Functional Mobility, Group Exercise/Act as Ind, UE Funct Exercise/Act Treatment Duration: Jan 08, 2019 Frequency: 5 times per week Estimated Hrs Per Day: .25 hour per day Agreement: Yes Rehab Potential: Good Time/GCodes Start Time: 13:36 Stop Time: 13:46 Total Time Billed (hr/min): 10 Billed Treatment Time 1, ADL BRENDAN CARTER OT Dec 27, 2018 13:56
[2018-12-27] MEDS ORDERED: LACTATED RINGERS 1,000 ML IV ONE (14:27)
--- NOTE | 2018-12-27 14:28 | NUR ---
PATIENT LEFT FLOOR FOR EGD/COLONOSCOPY.
[2018-12-27] MEDS ORDERED: LIDOCAINE JELLY 2% 6 ML SYRINGE ONE (14:39)
[2018-12-27] MEDS ORDERED: MIDAZOLAM 2 MG/2 ML (VERSED) VIAL ONE ×4 (14:39)
[2018-12-27] MEDS ORDERED: fentaNYL INJECTION 100 MCG/2 ML AMP ONE ×2 (14:39)
[2018-12-27] MEDS ORDERED: HURRICAINE EXT TUBE (BENZOCAINE) ONE (14:40)
[2018-12-27] MEDS ORDERED: LACTATED RINGERS 1,000 ML IV STA (14:59)
[2018-12-27] MEDS ORDERED: MIDAZOLAM 2 MG/2 ML (VERSED) VIAL IVP ONE (15:00)
[2018-12-27] MEDS ORDERED: fentaNYL INJECTION 100 MCG/2 ML AMP IVP ONE (15:00)
[2018-12-27] MEDS ORDERED: LIDOCAINE JELLY 2% 6 ML SYRINGE MM PRN (15:00)
[2018-12-27] MEDS ORDERED: HURRICAINE EXT TUBE (BENZOCAINE) XX PRN (15:00)
[2018-12-27] MEDS ORDERED: PANT40TA2 PO (16:27)
--- NOTE | 2018-12-28 01:20 | OPERATIVE REPORT ---
DATE OF SERVICE: 12/27/2018 ATTENDING PRIMARY CARE PHYSICIAN: Amilcar Macias MD ADMITTING PHYSICIAN: Dr. Martinez. PREOPERATIVE DIAGNOSES: Nausea and vomiting, screening colonoscopy, new onset atrial fibrillation with rapid ventricular response. POSTOPERATIVE DIAGNOSES: Reflux esophagitis between stage II and III with a distal esophagitis, mild distal esophageal stricture, small hiatal hernia 1 cm in size, moderate severity gastritis. No distal obstructions. Mild chronic stage II external and internal hemorrhoids. Mild sigmoid diverticulosis. Remainder of the colon was normal. There were no polyps or any neoplasms identified. PROCEDURE: EGD with biopsy and balloon dilatation, colonoscopy. SURGEON: Philly Montejo MD ANESTHESIA: Conscious sedation. ESTIMATED BLOOD LOSS: Minimal. FINDINGS: Same as postoperative diagnoses. DISPOSITION: The patient tolerated the procedure well. INDICATIONS: The patient is a 73-year-old male, who presented to the Emergency Department with one month history of nausea, vomiting, diarrhea and progressive weakness. He was diagnosed with pancreatitis one month previous and has had the nausea and vomiting as well as the diarrhea. He also reports that he has lost approximately 30 to 40 pounds in the past 3 months. He does drink a significant amount of alcohol including three glasses of whiskey daily and does have greater than 100-pack years of smoking. He also does report that he has had some issues with reflux as well as regurgitation. DESCRIPTION OF PROCEDURE: The patient was brought to the endoscopy suite, laid in the left lateral decubitus position. After adequate IV pain and sedative medications and conscious sedation anesthesia, the mouthpiece was applied. The endoscope was placed in the mouth, visualizing the pharynx and hypopharyngeal region. Vocal cords, epiglottis and vallecula identified and appeared to be normal. The endoscope was then gently intubated into the esophageal opening and esophagus insufflated. The endoscope was then advanced to the first, second and third portion of the esophagus at the level of the GE junction, reflux esophagitis between grade II and III identified with a distal esophageal stricture identified. This was biopsied using forceps with visualization of good hemostasis. The endoscope was then placed in the stomach and endoscope retroflexed, visualizing a small hiatal hernia approximately 1 cm in size. The esophageal stricture was also visualized on the retroflexed view. A moderate gastritis was noted, no formal ulcerations, polyps, or any neoplasms. A biopsy was taken to rule out H. pylori with visualization of good hemostasis. The endoscope was then advanced to the pylorus and the first and second portion of the duodenum, which appeared normal with no distal obstructions. We then proceeded with balloon dilatation of the distal esophageal stricture. The balloon was placed into the stomach and pulled back to the area of the stricture. We first proceeded to 2 atmospheres of pressure with mild resistance. We then proceeded to 3 atmospheres of pressure with moderate resistance and left this in place for approximately 60 seconds. This was approximately 18.5 mm in luminal diameter. The balloon was desufflated and removed. No mucosal tears were identified as well as no bleeding. The endoscope was then slowly withdrawn while taking a second look and suctioning of residual air with no additional findings. Under the same anesthesia, we then proceeded with the colonoscopy portion of the procedure. Digital rectal examination was performed, which revealed chronic stage II external and internal hemorrhoids, not actively edematous nor inflamed and no bleeding. Normal sphincter tone was felt and there were no palpable masses. The prostate gland was palpable and appeared normal. The endoscope was then intubated to the anus and rectum gently insufflated. The endoscope was then advanced to the valves of Dobson of the rectum with no polyps or any neoplasms identified. We then proceeded through the sigmoid colon where mild sigmoid diverticulosis identified. There were no mucosal inflammatory changes to indicate any active diverticulitis. The endoscope was then advanced to the remainder of the descending, transverse and ascending colon to the cecum. These segments were normal. There were no polyps or any neoplasms identified. The endoscope was then slowly withdrawn while taking a second look and suctioning residual air with no additional findings. The patient tolerated the procedure well. We will recommend a high fiber diet with 30 grams of fiber daily as well as significant amounts of water to promote soft stools on a daily basis. We will also recommend the necessary lifestyle and diet accommodation for reflux esophagitis and esophageal stricture, which is avoidance of caffeinated beverages, alcoholic beverages as well as smoking. He also needs to avoid spicy, greasy and acidic foods as well as take small and more frequent meals and avoid eating at night. We will also start him on Protonix 40 mg daily. From our standpoint, he may be started on any type of anticoagulation and may be discharged home at any time as well. Job ID: [id number] DocumentID: [id number] Dictated Date: 12/27/2018 16:21:31 [place] Technician Date: 12/28/2018 01:19:45 Dictated By: PHILLY MONTEJO MD
--- NOTE | 2018-12-28 15:05 | Discharge Summary ---
Diagnosis/Chief Complaint Date of Admission Dec 23, 2018 at 16:55 Date of Discharge Dec 27, 2018 at 18:05 Discharge Date: Dec 27, 2018 Admission Diagnosis a-fib rvr Primary Care Elmer Florez MD Discharge Diagnosis atrial fibrillation, nausea and vomiting, pancytopenia (1) Atrial fibrillation with rapid ventricular response Status: Acute (2) HTN (hypertension) Status: Chronic (3) Weight loss, unintentional Status: Chronic (4) Nausea & vomiting Status: Acute (5) Pancytopenia Status: Acute (6) Folate deficiency Status: Acute Discharge Summary Discharge Physical Exam Allergies: Coded Allergies: Sulfa (Sulfonamide Antibiotics) (Verified Allergy, Unknown, 05/18/16) meperidine (Verified Allergy, Unknown, 05/18/16) Vitals & I&Os Vital Signs Date Time Temp Pulse Resp B/P (MAP) Pulse Ox O2 Delivery O2 Flow Rate FiO2 12/27/18 18:05 59 20 180/82 98 Room Air 12/27/18 16:50 98.2 12/27/18 15:55 5 General Appearance: No Apparent Distress Hospital Course Was the Problem List Reviewed?: Yes Sebastien Toledo is a 73-year-old male who is admitted with atrial fibrillation with rapid ventricular response. This is a new diagnosis and he was started on metoprolol and Eliquis. he converted to normal sinus rhythm during his admission. He also had nausea and vomiting and underwent EGD and colonoscopy which revealed reflux esophagitis and esophageal stricture. He was continued on his PPI. He also had pancytopenia during his admission and this was thought to be due to folate deficiency and he was started on folic acid replacement. He will need this to be followed up and if it does not resolve with folic acid replacement may need a hematology referral. He was discharged home and will follow up with his primary care doctor, Dr. Florez. Labs (last 24 hrs) Microbiology 12/23/18 MRSA Screen - Final, Complete MRSA not isolated Patient resulted labs reviewed. Discussion & Recommendations Discharge Planning: <30 minutes discharge planning Discharge Home Medications: Active Scripts Active Protonix (Pantoprazole Sodium) 40 Mg Tablet. 40 Mg PO DAILY Eliquis (Apixaban) 5 Mg Tablet 5 Mg PO BID 90 Days Lisinopril 20 Mg Tablet 20 Mg PO DAILY 90 Days Folic Acid 1 Mg Tablet 1 Mg PO DAILY@0700 90 Days Reported Molina Morrow 24,000 Units Capsule (Lipase/Protease/Amylase) 1 Each Capsule.dr 1 Cap PO DAILY PRN Reglan (Metoclopramide HCl) 10 Mg Tablet 10 Mg PO Q6H PRN Spiriva Respimat 2.5MCG/ACTUATION (Tiotropium [place]) 4 Gm Mist.inhal 2 Puff IH DAILY PRN Proair Hfa (Albuterol Sulfate) 1 Puff Puff 2 Puff IH QID PRN Artificial Tears (Dextran 70/Hypromellose) 1 Each Droperette 1 Drop OU QID PRN Metoprolol Succinate 100 Mg Tab.er.24h 100 Mg PO DAILY LAST FILLED #30 6-28-19 Omeprazole 20 Mg Capsule. 20 Mg PO DAILY Losartan Potassium 100 Mg Tablet 100 Mg PO DAILY Condition at discharge stable Instructions to patient/family Please see electronic discharge instructions given to patient. Clinical Quality Measures DVT/VTE Risk/Contraindication: Risk Factor Score Per Nursin RFS Level Per Nursing on Admit: 4+=Very High Copy Copies To 1: ELMER FLOREZ MD, JARIN M MD Dec 28, 2018 15:05
== END 2018-12-27 18:05 | disposition home or self-care (01) | DRG 309 ==
LOC: EDUNIT# 16:11 → ER 16:12 → ICU 16:55 → 4TH 12-25 10:40
PROVIDERS: ADMIT Family Medicine; ATTEND Family Medicine
PROC: 0D758ZZ Dilation of Esophagus, Via Natural or Artificial Opening Endoscopic (ICD-10-PCS; 2018-12-27)
PROC: 0DB78ZX Excision of Stomach, Pylorus, Via Natural or Artificial Opening Endoscopic, Diagnostic (ICD-10-PCS; 2018-12-27)
PROC: 0DB48ZX Excision of Esophagogastric Junction, Via Natural or Artificial Opening Endoscopic, Diagnostic (ICD-10-PCS; principal; 2018-12-27 13:30)
PROC: 0DJD8ZZ Inspection of Lower Intestinal Tract, Via Natural or Artificial Opening Endoscopic (ICD-10-PCS; 2018-12-27 13:30)
DX: I48.0 Paroxysmal atrial fibrillation (principal); D61.818 Other pancytopenia; E87.1 Hypo-osmolality and hyponatremia; K22.2 Esophageal obstruction; E87.6 Hypokalemia; E83.42 Hypomagnesemia; K64.1 Second degree hemorrhoids; J43.9 Emphysema, unspecified; F10.20 Alcohol dependence, uncomplicated; I25.10 Atherosclerotic heart disease of native coronary artery without angina pectoris; F17.210 Nicotine dependence, cigarettes, uncomplicated; I10 Essential (primary) hypertension; G47.33 Obstructive sleep apnea (adult) (pediatric); K44.9 Diaphragmatic hernia without obstruction or gangrene; K21.0 Gastro-esophageal reflux disease with esophagitis; K29.70 Gastritis, unspecified, without bleeding; I70.1 Atherosclerosis of renal artery; I71.4 Abdominal aortic aneurysm, without rupture; R59.0 Localized enlarged lymph nodes; E83.39 Other disorders of phosphorus metabolism; K57.30 Diverticulosis of large intestine without perforation or abscess without bleeding; E78.5 Hyperlipidemia, unspecified; D69.6 Thrombocytopenia, unspecified; Z87.19 Personal history of other diseases of the digestive system; Z95.5 Presence of coronary angioplasty implant and graft; Z85.828 Personal history of other malignant neoplasm of skin; Z80.1 Family history of malignant neoplasm of trachea, bronchus and lung; Z80.0 Family history of malignant neoplasm of digestive organs; Z96.651 Presence of right artificial knee joint; Z88.2 Allergy status to sulfonamides
CPT/HCPCS: 36415; 71045; 74150; 76770; 80048; 80053; 80320; 81000; 82274; 82607; 82746; 83690; 83735; 83880; 84100; 84439; 84443; 84484; 85025; 85610; 86301; 87081; 93005; 93306; 93975; 96361; 96365; 96367; 96368; 96372; 96375

== ENCOUNTER 2019-01-02 11:38 | Inpatient (IN) | payer MEDICARE, OTHER | END 2019-01-08 11:19 | disposition home or self-care (01) | LOC: ER 11:38 → 4TH 01-05 08:35 → ICU 14:51 | DX: F10.231 Alcohol dependence with withdrawal delirium (principal); F10.29 Alcohol dependence with unspecified alcohol-induced disorder; R45.1 Restlessness and agitation; R47.01 Aphasia; R41.0 Disorientation, unspecified; J84.9 Interstitial pulmonary disease, unspecified; R06.4 Hyperventilation; I48.0 Paroxysmal atrial fibrillation; J43.9 Emphysema, unspecified; G47.33 Obstructive sleep apnea (adult) (pediatric); I65.01 Occlusion and stenosis of right vertebral artery; I25.10 Atherosclerotic heart disease of native coronary artery without angina pectoris; I73.9 Peripheral vascular disease, unspecified; I70.1 Atherosclerosis of renal artery; I65.29 Occlusion and stenosis of unspecified carotid artery; I12.9 Hypertensive chronic kidney disease with stage 1 through stage 4 chronic kidney disease, or unspecified chronic kidney disease; N18.3 Chronic kidney disease, stage 3 (moderate); E78.5 Hyperlipidemia, unspecified; R63.4 Abnormal weight loss; R53.1 Weakness; F17.210 Nicotine dependence, cigarettes, uncomplicated; J30.2 Other seasonal allergic rhinitis; K21.9 Gastro-esophageal reflux disease without esophagitis; M19.91 Primary osteoarthritis, unspecified site; Z95.5 Presence of coronary angioplasty implant and graft ==

== ENCOUNTER 2019-01-08 10:16 | Inpatient (IN) | payer MEDICARE, OTHER ==
[2019-01-08] VITALS (7 sets, daily range): BP systolic 169–186; BP diastolic 72–92
[~2019-01-08] VITALS: Ht 182.9 cm; Wt 84.5 kg
[~2019-01-08 10:16] MED LIST changes: +APIX5TAB PO; +FOLI1TAB24 PO; +LIPA1CAP4 PO; +LISI-552 PO; +METO-310 PO; +PANT40TA2 PO
[2019-01-08] MEDS ORDERED: MONT10TA24 PO (11:02)
[2019-01-08] MEDS ORDERED: LORA10TA7 PO (11:02)
[2019-01-08] MEDS ORDERED: APIX5TAB PO (11:02)
--- NOTE | 2019-01-08 11:39 | NUR ---
Pt admitted to room 223-1, with an admitting diagnosis of Weakness, Debility, on 01/08/19 from 4th floor, via w/c, accompanied by PT. PAULINA VALDERRAMA introduced to surroundings, call light, bed controls, phone, TV, temperature control, lights, meal times, smoking policy, visitor policy, side rail policy, bathrooms and showers. Patient Rights given to patient in the handbook. PAULINA VALDERRAMA acknowledges understanding that [facility] is not responsible for the loss or damage to any personal effects or valuables that are kept in the patients posession during their hospitalization. The following Patient Care Plans were discussed with the pt: Discharge Planning, Impaired Mobility, Self Care Deficit, Potential for fall/injury. PAULINA VALDERRAMA acknowledges understanding of Interdisciplinary Patient Education. Patient and/or family were informed about the Rapid Response Team and its purpose. Patient received Patient Rights Booklet, which includes Privacy Act Statement and Data Collection Information Summary. Pt immediately working w Therapists upon arrival to unit.
--- NOTE | 2019-01-08 12:44 | Physical Therapy Evaluation ---
PT Evaluation-General Medical Diagnosis Admission Date Jan 08, 2019 at 11:41 Medical Diagnosis: AMS/weakness Onset Date: Jan 02, 2019 Therapy Diagnosis Therapy Diagnosis: generalized weakness/debility Height/Weight Height (Feet): 5 Height (Inches): 11.00 Weight (Pounds): 191 Weight (Ounces): 0.0 Precautions Precautions/Isolations: Fall Prevention, Standard Precautions Weight Bear Status Right Lower Extremity: Right Weight Bearing/Tolerated Left Lower Extremity: Left Weight Bearing/Tolerated Referral Physician: Yaneli Reason for Referral: Evaluation/Treatment Medical History Pertinent Medical History: Atrial Fib, Alcoholism, CAD, GERD, HTN, PVD, Smoking Current History transfer to ARU Reviewed History: Yes Social History Home: Single Level Current Living Status: Spouse Entry Into Home: Level Entry Prior/Core FIM Prior Level of Function Therapy Code Descriptions/Definitions Functional [place] Measure: 0=Not Assessed/NA 4=Minimal Assistance 1=Total Assistance 5=Supervision or Setup 2=Maximal Assistance 6=Modified [place] 3=Moderate Assistance 7=Complete [place] Therapy Quality Codes: 6 Independent with activity with or without an assistive device 5 Patient requires set up or clean up by helper. Patient completes activity by themselves 4 Supervision or touching assist (CGA). [place] provide cues , steadying assist 3 The helper provides less than half the effort to complete the activity 2 The helper provides more than half the effort to complete the activity 1 Dependent. The helper does all the effort to complete an activity 7 Patient refused to complete or attempt activity 9 The patient did not perform the activity before the current illness or injury 88 Not attempted due to Medical conditions or safety concerns Functional Abilities and Goals: Independent: Patient completed the activities by him/herself, with or without an assistive device, with no assistance from a helper. Needed Some Help: Patient needed partial assistance from another person to complete activities. Dependent: A helper completed the activities for the patient. Unknown: Not Applicable: Bed Mobility: 6 Transfers (B,C,W/C) (FIM): 6 Gait: 6 Indoor Mobility (Ambulation): Independent Stairs: Not [place] Prior Devices Use: Walker PT Evaluation-Current Subjective Patient agrees to PT. He is alert and oriented x 3. Pain Numeric Pain Scale: 5-Moderate Pain Location: Left Location Body Site: Hip Pain Description: Chronic Objective Patient Orientation: Person, Time, Situation Problem Solving: Fair ROM/Strength ROM Lower Extremities bilateral LE WFL Strenght Lower Extremities left knee flexion/extension 4-/5; hip flexion 4-/5; DF/PF 4/5 right knee flexion/extension 4/5; hip flexion 4/; DF/PF 4/5 Integumentary/Posture Integumentary refer to nursing notes Bowel Incontinence: No Bladder Incontinence: No Posture WFL Neuromuscular (Tone, Coordination, Reflexes) grossly intact Sensory Vision: Wears Glasses Hearing: Impaired Sensation Right Lower Extremit: Impaired Sensation Left Lower Extremity: Impaired Transfers Therapy Code Descriptions/Definitions Functional [place] Measure: 0=Not Assessed/NA 4=Minimal Assistance 1=Total Assistance 5=Supervision or Setup 2=Maximal Assistance 6=Modified [place] 3=Moderate Assistance 7=Complete [place] Therapy Quality Codes: 6 Independent with activity with or without an assistive device 5 Patient requires set up or clean up by helper. Patient completes activity by themselves 4 Supervision or touching assist (CGA). [place] provide cues , steadying assist 3 The helper provides less than half the effort to complete the activity 2 The helper provides more than half the effort to complete the activity 1 Dependent. The helper does all the effort to complete an activity 7 Patient refused to complete or attempt activity 9 The patient did not perform the activity before the current illness or injury 88 Not attempted due to Medical conditions or safety concerns Transfers (B, C, W/C) (FIM): 4 Scootin Rollin Roll Left to Right (QC): 5 Supine to/from Sit: 5 Sit to/from Stand: 4 Sit to Lying (QC): 5 Lying to Sitting/Side of Bed(Q: 5 Sit to Stand (QC): 4 Chair/Mzu-ke-Wiwkr Xfer(QC): 4 Car Transfer (QC): 5 Gait Does the Patient Walk?: Yes Mode of Locomotion: Walk Anticipated Mode of Locomotion: Walk Gait (FIM): 4 Distance (FIM): 3=150 ft Walk 10 feet (QC): 4 Walk 50 ft with 2 Turns(QC): 4 Walk 150 ft (QC): 4 Walking 10ft/uneven surface-QC: 4 Distance: 200' x 3/150' x 2 Gait Level of Assist: 4 Gait Persons Needed: 1 Gait Assistive Device: FWW Comments/Gait Description slight ataxic episodes with self correct/functional gait sequence Stairs Stairs (FIM): 1 #of Steps: 1 Level of Assist: 4 1 Step (curb) (QC): 4 4 Steps (QC): 9 Assistive Device: Walker 12 Steps (QC): 9 Balance Sitting Static: Normal Sitting Dynamic: Normal Standing Static: Fair Standing Dynamic: Fair Treatment Gait training with FWW CGA 200' x 3/150' x 2 with standing and sitting recovery periods due to fatigue. Patient demonstrates ataxic/shaking episodes and states this is from alcohol dependency. Assessment/Needs 73 y.o. male, will benefit from skilled PT to address functional strength and mobility to improve current LOF to safely return to home with spouse at maximum LOF. Patient is limited with strength and safe mobility. Rehab Potential: Fair PT Usp Goals Usp Goals PT Editor Continuity And Script Goals Time Frame: Feb 03, 2019 Transfers (B,C,W/C) (FIM): 6 Sit to Lying (QC): 6 Lying-Sitting on Side/Bed(QC): 6 Sit to Stand (QC): 6 Rollin Roll Left to Right (QC): 6 Chair/Ibh-yj-Tldsb Xfer(QC): 6 Car Transfer (QC): 6 Does the Patient Walk: Yes Gait (FIM): 6 Gait distance (FIM): 3=150 ft Distance: 250' Walk 10 feet (QC): 6 Walk 10ft-Uneven Surface(QC): 6 Walk 50ft with 2 Turns (QC): 6 Walk 150 ft (QC): 6 Gait Level of Assist: 6 Gait Assistive Device: FWW Stairs (FIM): 2 # of Steps: 4 1 Step (curb) (QC): 6 4 Steps (QC): 6 12 Steps (QC): 9 Stairs Level Of Assist: 6 Picking up an Object (QC): 6 PT Plan Problem List Problem List: Activity Tolerance, Functional Strength, Safety, Balance, Gait, Transfer, Bed Mobility Treatment/Plan Treatment Plan: Continue Plan of Care Treatment Plan: Bed Mobility, Education, Functional Activity Jordy, Functional Strength, Group Therapy, Gait, Safety, Therapeutic Exercise, Transfers Treatment Duration: Feb 03, 2019 Frequency: At least 5 of 7 days/Wk (IRF) Estimated Hrs Per Day: 1.5 hours per day Patient and/or Family Agrees t: Yes Safety Risks/Education Patient Education: Safety Issues Teaching Recipient: Patient Teaching Methods: Discussion Response to Teaching: Verbalize Understanding Discharge Recommendations Therapy Discharge Recommendati: Other, See Comments (home with spouse/possible home health) Time/GCodes Time In: 1139 Time Out: 1230 Total Billed Treatment Time: 51 Total Billed Treatment 1 visit EVModC 30 min FA 21 min GUY SANTOS PT Jan 08, 2019 12:44
[2019-01-08] MEDS ORDERED: ONDANSETRON 4 MG (ZOFRAN) ORAL DISSOLVE TAB SL PRN (12:45)
[2019-01-08] MEDS ORDERED: BISACODYL 10 MG SUPP (DULCOLAX) PR PRN (12:45)
[2019-01-08] MEDS ORDERED: LIPASE/AMYLASE/PROTEASE (PANCRELIPASE) 5,000 UNITS CAP PO PRN (12:45)
[2019-01-08] MEDS ORDERED: FLEET ENEMA ADULT 1 EA BTL PR PRN (12:45)
[2019-01-08] MEDS ORDERED: ANTACID SUSP 30 ML UDC (MYLANTA) PO PRN (12:45)
[2019-01-08] MEDS ORDERED: fentaNYL INJECTION 100 MCG/2 ML AMP IVP PRN (12:45)
[2019-01-08] MEDS ORDERED: ONDANSETRON 4 MG/2 ML (SDV) Z0FRAN IV PRN (12:45)
[2019-01-08] MEDS ORDERED: LACTULOSE SYRUP 10GM/15ML (ENULOSE) 30ML UDC PO PRN (12:45)
[2019-01-08] MEDS ORDERED: LORazepam INJ 2 MG/ML (ATIVAN) VIAL IV PRN (12:45)
[2019-01-08] MEDS ORDERED: D5 1/2 NS 1000 ML IV SOLUTION 1,000 ML IV PRN (12:45)
[2019-01-08] MEDS ORDERED: ARTIFICAL TEARS 0.4 ML UNIT DOSE (REFRESH PLUS) OU PRN (12:45)
[2019-01-08] MEDS ORDERED: LORazepam 1 MG (ATIVAN) TAB PO PRN (12:45)
--- NOTE | 2019-01-08 13:00 | Occupational Therapy Eval ---
OT Evaluation-General/PLF Medical Diagnosis Admission Date Jan 08, 2019 at 11:41 Medical Diagnosis: AMS/weakness Onset Date: Jan 02, 2019 Therapy Diagnosis Therapy Diagnosis: Decreased ADL/ functional mobility Height/Weight Height (Feet): 5 Height (Inches): 11.00 Weight (Pounds): 191 Weight (Ounces): 0.0 Precautions Precautions/Isolations: Fall Prevention, Standard Precautions Safety Interventions: None Weight Bear Status Weight Bearing Restriction: Weight Bearing/Tolerated Referral Physician: Yaneli Referral Reason: Activity Tolerance, Self Care, Evaluation/Treatment, Strengthening/ROM Medical History Pertinent Medical History: Atrial Fib, Alcoholism, CAD, GERD, HTN, PVD, Smoking Additional Medical History PMHx includes: CAD, PAD, A-fib, HTN Current History Per H&P on 01/02/19: "Pt is a 73yoCM with a PMH of CAD, PAD, A-fib, alcohol abuse who presented to the ER via EMS for altered mental status. He is unable to provide me any history at this time. He is laying in bed hallucinating and pretending to smoke a cigarette. His is at bedside who gives all history. She states that since discharge last week he has been profoundly weak. His appetite has improved but despite that he was getting more and more weak and this morning was unable to walk. He called his and stated he needed to go to the ER. When she arrived home she and her brother in law attempted to transport him to the car but he did not recognize her and though she was trying to harm him so EMS was called. A Code Stroke was activated and [facility] Neurology was consulted regarding his case. His images revealed no ICH or acute CVA. He was outside of the window for TPA and so it was not given. They did not recommend transfer as well. He is being admitted for altered mentation. His states his last drink would have been before his last hospitalization last week and does not believe he has access to any other alcohol though does state she has been at work during the day." Pt transferred to ARU on 01/08/19. Reviewed History: Yes Social History Home: Single Level Current Living Status: Spouse Entry Into Home: Level Entry Steps Into Home: 0 Steps Inside Home: 0 Pt states he and his moved closer to brother and sister in law to give extra support to them, as sister in law becomes weaker and needs assist within the home. Pt states,"Now I'm the one who needs help." Pt states he drives, brother in law provides lawn care and provides IADL support as needed (grocery shopping, cooking, cleaning). 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 Pt has 2 sons, neither live close by at the moment. ADL-Prior Level of Function Therapy Code Descriptions/Definitions Functional [place] Measure: 0=Not Assessed/NA 4=Minimal Assistance 1=Total Assistance 5=Supervision or Setup 2=Maximal Assistance 6=Modified [place] 3=Moderate Assistance 7=Complete [place] Therapy Quality Codes: 6 Independent with activity with or without an assistive device 5 Patient requires set up or clean up by helper. Patient completes activity by themselves 4 Supervision or touching assist (CGA). Scurry provide cues , steadying a ssist 3 The helper provides less than half the effort to complete the activity 2 The helper provides more than half the effort to complete the activity 1 Dependent. The helper does all the effort to complete an activity 7 Patient refused to complete or attempt activity 9 The patient did not perform the activity before the current illness or injury 88 Not attempted due to Medical conditions or safety concerns Functional Abilities and Goals: Independent: Patient completed the activities by him/herself, with or without an assistive device, with no assistance from a helper. Needed Some Help: Patient needed partial assistance from another person to complete activities. Dependent: A helper completed the activities for the patient. Unknown: Not Applicable: Self Care: Independent Functional Cognition: Independent DME/Equipment: Bath Chair DME/Equipment Comments Pt was IND without AE. States he has shower chair but does not use. Pt states he plans to install grab bars in shower/ near toilet. Occupation: retired, [address] Self: Yes OT Current Status Subjective Pt seen in recliner chair, eating lunch. Pt c/o 5/10 pain in L hip when reaching for items across table that requires hip muscle activation. Pt agreeable to OT eval/ treat. Pain Numeric Pain Scale: 5-Moderate Pain Mental Status/Objective Patient Orientation: Person, Place, Time, Situation, Normal For Age Attachments: IV Current Glasses/Contacts: Yes Hearing Aids: No Dentures/Partials: Yes (partial dentures, do not fit, pt does not wear) Hand Dominance: Right Upper Extremity ROM WFL Upper Extremity Coordination axaxia noted with limbs during functional tasks Pt able to complete finger opposition with increased time and concentration Upper Extremity Sensation Pt states paresthesia in BUE from elbow to fingertips. Pt states the dis tribution area is "all over"/ no pattern. Pt states he has asked his doctor if he is diabetic, and is "sure that that's the problem." Pt stated doctor massaged forearms and calves today which helped with the paresthesia. Upper Extremity Strength WFL BUE ADL-Treatment Eating (FIM): 6 (increased time noted) Eating (QC): 6 Grooming (FIM): 4 (CGA at sink for safety) Oral Hygiene (QC): 4 (CGA, pt able to manipulate all items with increased time.) Bathing (FIM): 4 (Assist with BLE and CGA for standing during hyacinth hygiene) Shower/Bathe Self (QC): 3 Upper Body Dressing (FIM): 5 (s/u) Upper Body Dressing (QC): 5 Lower Body Dressing (FIM): 2 (max A for threading BLE during breif and pant donning. Pt required assist pulling pants past knees.) Lower Body Dressing (QC): 2 On/Off Footwear (QC): 2 (max A bilateral socks, mod A shoe donning. Pt's limbs ataxic during lifting motion. Pt states, "I feel like my limbs are in control of me instead of me in control of my limbs.") Toileting (FIM): 4 (SBA for safety) Toileting Hygiene (QC): 4 (SUP for safety) Transfers (B, C, W/C) (FIM): 4 (CGA for safety) Toilet/Commode Transfer (FIM): 4 (CGA for safety.) Toilet Transfer (QC): 4 Tub Transfer (FIM): 4 (CGA to min A during sit to stand from shower bech to FWW) Other Treatments Pt educated on therapy process, muscle activation during activities, safety during transfers and paresthesia safety during temperature change and visual substitutes. Pt's present during end of session. Pt returned to recliner chair with walker, decreased safety awareness with FWW use. Pt states he is very weak. Pt left in recliner chair with CREDIT BALANCE SPECIALIST and present, all needs met and call light in reach. Education OT Patient Education: Correct positioning, Energy conservation, Modified ADL techniques, Progress toward Goal/Update tx plan, Purpose of tx/functional activities, Rehab process, Safety issues, Transfer techniques Teaching Recipient: Patient Teaching Methods: Demonstration, Discussion Response to Teaching: Verbalize Understanding, Return Demonstration OT Short Term Goals Short Term Goals Upper Body Dressing(FIM): 6 Lower Body Dressing(FIM): 3 Transfers (B,C,W/C) (FIM): 5 1=Demonstrate adherence to instructed precautions during ADL tasks. 2=Patient will verbalize/demonstrate understanding of assistive devices/modifications for ADL. 3=Patient will improve strength/tolerance for activity to enable patient to perform ADL's. OT Fpc Goals Sap Administrator Goals Eating (FIM): 7 Eating (QC): 6 Groomin Oral Hygiene (QC): 6 Bathing(FIM): 6 Shower/Bathe Self (QC): 6 Upper Body Dressing(FIM): 6 Upper Body Dressing (QC): 6 Lower Body Dressing(FIM): 6 Lower Body Dressing (QC): 6 On/Off Footwear (QC): 6 Toileting(FIM): 5 Toileting Hygiene (QC): 6 Transfers (B,C,W/C) (FIM): 6 Toilet/Commode Transfer(FIM): 5 Toilet/Commode Transfer (QC): 4 Tub Transfer(FIM): 5 Shower Transfer(FIM): 5 Additional Goals: 1-Demonstrate ADL Tasks, 2-Verbalize Understanding, 3- ImproveStrength/Jordy 1=Demonstrate adherence to instructed precautions during ADL tasks. 2=Patient will verbalize/demonstrate understanding of assistive devices/modifications for ADL. 3=Patient will improve strength/tolerance for activity to enable patient to perform ADL's. OT Education/Plan Problem List/Assessment Assessment: Decreased Activ Tolerance, Decreased Safety Aware, Dependent Transfers, Impaired Coordination, Impaired Funct Balance, Impaired I ADL's, Impaired Self-Care Skills Discharge Recommendations Plan/Recommendations: Continue POC Comment d/c recommendations TBD Treatment Plan/Plan of Care Treatment,Training & Education: Yes Patient would benefit from OT for education, treatment and training to promote independence in ADL's, mobility, safety and/or upper extremity function for ADL's. Plan of Care: ADL Retraining, Caregiver Training, Cognitive Retraining, Functional Mobility, Group Exercise/Act as Ind, UE Funct Exercise/Act, UE Neuromus Re-Ed/Coord Frequency: 5 times per week Estimated Hrs Per Day: 1 hour per day (1-1.5 hours per day) Agreement: Yes Rehab Potential: Fair Time/GCodes Start Time: 12:40 (2nd start time: 1410) Stop Time: 12:55 (2nd stop time: 1455) Total Time Billed (hr/min): 60 Billed Treatment Time 1, EVM, ADL [phone] 1, ADL [phone] JOANA MENDOZA OTR Jan 08, 2019 13:00
--- NOTE | 2019-01-08 14:15 | NUR ---
REVIEWED MED REC IT WAS REPORTED UPON ADMISSION TO ICU. NOTE THE FOLLOWING CHANGES WERE MADE WHEN THE PATIENT DISCHARGED TO REHAB THAT ARE NOT CURRENTLY REFLECTED ON THE HOME MED REC: START TAKING: ELIQUIS 5MG BID LORATADINE 10MG DAILY MONTELUKAST 10MG HS
--- NOTE | 2019-01-08 14:45 | NUR ---
Pastoral care visit w/pts .
--- NOTE | 2019-01-08 14:48 | Therapy Group Daily Note ---
Therapy Daily Group Note Patient Education Topic Other List Below (ARU orientation, bed mobility, TRF techniques) Exercises LE Seated Exercise, UE Exercise Session Ratio (pt:therapist): 3:1 Goal of Session: Education on ARU Expectations, Safety with Transfers Goal Met for this Session: Yes Pt Benefit of Group: Increased Functional Safety, Increased Functional Strength, Socialization Other/Notes Pt. participated in group PT OT session . Pt. to from group via w/c and assist. Pt. was social introducing himself and sharing with others. ARU orientation info was shared and education was focused on ways to be more independent regarding bed mobility and TRFs . Pts. were lead in U&L extremity exercises they can do in their beds or sitting up. Pt. ambulated back to room with call marcelo at hand. Start Time: 13:00 Stop Time: 14:10 Total Billed Treatment Time: 70 Total Billed Treatment 1,GRP RUDY INIGUEZ CARAMEL CANDY MAKER HELPER Jan 08, 2019 14:48
--- NOTE | 2019-01-08 15:46 | Therapy Group Daily Note ---
Therapy Daily Group Note Patient Education Topic Fall Prevention, Home Safety, Exercises, ADL, Other List Below Exercises LE Seated Exercise, LE Standing Exercise, ROM, Gross Motor, UE Exercise Session Ratio (pt:therapist): 3:1 Goal of Session: Education on ARU Expectations, Energy Conservation Tech., UE/LE Strengthing, Safety with Transfers, Use of Adaptive Equipment Goal Met for this Session: Yes Pt Benefit of Group: Contributions to Others, F/U Use of Strategies @Home, Increased Functional Safety, Increased Functional Strength, Recognition of Peers, Socialization Other/Notes Pt ambulated using FWW and CGA to OT/PT group. Group consisted of introduction (name, place living, favorite school activity), socialization, ARU orientation, UE/LE seated exercises and transfer/bed mobility education. Pt introduced self appropriately and actively listened to peers. Pt contributed to conversations and initiated responses to educational topics. Pt demonstrated understanding of group educational topics with affirmative gestures and verbalizing understanding. Pt completed UE/LE seated exercises and tolerated well. Pt educated on bed mobility and safety during transfers. Pt taken back to room with FWW and CGA. All needs met in room. Start Time: 13:00 Stop Time: 14:00 Total Billed Treatment Time: 60 Total Billed Treatment 1, GRPx4(60) JOANA MENDOZA OTR Jan 08, 2019 15:45
--- NOTE | 2019-01-08 15:58 | ST Cognitive Linguistic Eval ---
Speech Evaluation-General Medical Diagnosis AMS/weakness Onset Date: Jan 02, 2019 Therapy Diagnosis Therapy Diagnosis: Cognitive-communication Precautions Precautions: Fall Precautions/Isolations: Fall Prevention, Standard Precautions Referral Referring Physician: Dr. Groves Reason for Referral: Evaluation/Treatment Medical History Pertinent Medical History: Atrial Fib, Alcoholism, CAD, GERD, HTN, PVD, Smoking A-Fib, PVD, CAD, GERD, HTN, Alcoholism, Smoking Current History AMS, weakness Reviewed History: Yes Social History Home: Single Level Current Living Status: Spouse Speech PLF-Current Status Prior Level of Function The patient lives with his in their own home where he was independent with his daily needs. Subjective Patient was cooperative and pleasant with the cognitive evaluation process. Language Eval: Auditory Comprehends Simple Yes/No Ques: Functional Indent/Objects Multiple [place]: Functional Ident/Pics in Multiple [place]: Functional Follows 1-Step Commands: Functional Follows Complex Directions: Mild Follows General Conversations: Mild Language Eval: Verbal Language Completes Spontaneous Greeting: Functional Produces Auto, Serial Info: Functional Imitates Simple Words/Phrases: Functional Word Finding: Mild Requests Basic Needs: Functional States Basic Personal Info: Functional Expresses Complex Ideas: Mild Objective Cognitive Domain Attention: WNL Memory: Mild Problem Solving: Mild Executive Functions: Mild Visuospatial Skills: WNL Composite Severity Rating: Mild Clock Drawing Severity Rating: Moderate Objective Formal/Standardized Tests [facility] Mental Status ([facility]) Results 20/30 Oral Motor/Speech Production Within Functional Limits Impression Patient is a pleasant 73 year old male who was admitted to the ARU s/p weakness. The patient was given the SLUMS with a score of 20/30 which places him in the dementia range of function.The patient will receive skilled ST services for cognitive improvement. Focus will be on memory, problem solving and safety awareness. Communication/Social Cognition Comprehension: 4 Expression: 5 Social Interaction: 6 Problem Solvin Memory: 4 Speech Patient Assess Expression of Ideas/Wants: Exhibits (3) Understanding Verbal Content: Sometimes Understands(2) Brief Interview-Mental Status: Yes Repetition of Three Words: Three (3) Temporal Orientation: Year: Correct (3) Temporal Orientation: Month: Accurate within 5 days(2) Temporal Orientation: Day: Correct (1) Recall : Wear to say "Sock": No, could not recall (0) Recall : Color: No, could not recall (0) Recall : Bed: Yes,after cueing (1) Memory/Recall Ability: Current season, That he or she is in a hsp/hsp unit Speech Short Term Goals Short Term Goals Short Term Goals 1) The patient will complete memory tasks at 90% or greater with minimal cues. 2) The patient will complete problem solving tasks at 90% or greater with minimal cues. 3) The patient will complete safety awareness tasks at 90% or greater with mi nimal cues. Speech Hadoop Application Developer Goals Mcfp Goals The patient will improve cognitive level of function so that he may return home safely. Speech-Plan Patient/Family Goals Patient/Family Goals: The patient plans on returning home with his post rehab. Treatment Plan Speech Therapy Treatment Plan: Continue Plan of Care Patient will receive skilled cognitive therapy. Treatment Duration: Jan 19, 2019 Frequency: 5 times per week Estimated Hrs Per Day: .5 hour per day Rehab Potential: Fair Barriers to Learning: Patient has moderate cognitive deficits Pt/Family Agrees to Plan: Yes Safety Risks/Education Teaching Recipient: Patient, Significant Other Teaching Methods: Discussion Response to Teaching: Verbalize Understanding Education Topics Provided: Safety within his room. Time Speech Therapy Time In: 15:00 Speech Therapy Time Out: 15:15 Total Billed Time: 15 Billed Treatment Time 1, SPSNDCOMP RAISSA Bolton Jan 08, 2019 15:58
[2019-01-08] MEDS: SENNA W/DOCUSATE (SENOKOT S) TABLET PO PRN (16:16)
--- NOTE | 2019-01-08 16:46 | Progress Note - Hospitalist ---
[facility] 1646: Progress Note Hospital Course: Katie Toledo is a 73-year-old male with past medical history of hypertension, coronary artery disease, GERD, and ETOH abuse who was recently admitted for AMS; his hospital stay was complicated by alcohol withdrawal. 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 CVA was suspected but ruled out via CT and clinical picture which was more consistent with ETOH withdrawal rather than CT. No MRI was done. Alcohol abuse was managed via activating CIWA protocol, giving thiamine and Folic acid. Pt was recently diagnosed with Paroxysmal Afib and was followed by Cardiology who ordered an Echo and started him on Eliquis. Pt's last stay also involved Macrocytic anemia which required transfusions and continued tx with folic acid. After pt was stabilized he was transitioned to inpatient rehabilitation on 01/08/19. CITLALI ABAD DO 01/08/19 8469: Supervisory-Addendum Brief Verification & Attestation Participated in pt care: history, MDM, physical Personally performed: exam, history, MDM, supervision of care Care discussed with: Medical Student Procedures: n/a Results interpretation: Verified all documentation Verification and Attestation of Medical Student E/M Service A medical student performed and documented this service in my presence. I reviewed and verified all information documented by the medical student and made modifications to such information, when appropriate. I personally performed the physical exam and medical decision making. Citlali Abad, Jan 08, 2019,21:09 [facility] Jan 08, 2019 16:46 CITLALI ABAD DO Jan 08, 2019 21:09
--- NOTE | 2019-01-08 16:49 | NUR ---
Notified Dr. Dorantes of elevated B/P, rec'd orders, by Marta Garcia RN
[2019-01-08] MEDS: hydrALAZINE (APRESOLINE) 25 MG TAB PO PRN ×2 (16:56→23:29)
--- NOTE | 2019-01-08 17:44 | PM&R H&P / Post Admit Assess ---
History of Present Illness HPI/Chief Complaint CC: Debility from alcoholism and altered mental status HPI: This is a 73yoWM who was admitted nearly a week ago of Dr. Macias's who presented with altered mental status found to have significant alcohol withdrawal of which his was unaware that he was drinking alcohol but he was provided supportive care and subsequently has become quite debilitated overall. Smoking cessation has been counseled along with alcohol cessation. He is a retired [employer] for 35 years in [place]. He does report that he is needing to cut down on his alcohol. At this current time pt denies any significant pain, meds were reviewed, and will be continued on inpatient rehab. He has become incontinent and is need of further recovery before DC is planned. HPI per ELMER Martinez Sebastien Toledo is a 73-year-old male with past medical history of hypertension, coronary artery disease, GERD, and ETOH abuse who was recently admitted for AMS; his hospital stay was complicated by alcohol withdrawal. 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 CVA was suspected but ruled out via CT and clinical picture which was more consistent with ETOH withdrawal rather than CT. No MRI was done. Alcohol abuse was managed via activating CIWA protocol, giving thiamine and Folic acid. Pt was recently diagnosed with Paroxysmal Afib and was followed by Cardiology who ordered an Echo and started him on Eliquis. Pt's last stay also involved Macrocytic anemia which required transfusions and continued tx with folic acid. After pt was stabilized he was transitioned to inpatient rehabilitation on 01/08/19. Source: patient, family, RN/MD, old records Exam Limitations: no limitations Date Seen 01/08/19 Time Seen by a Provider: 14:00 Attending Physician Citlali Abad DO PCP Amilcar Macias MD Referring Physician Date of Admission Jan 08, 2019 at 11:41 Home Medications & Allergies Home Medications Reviewed patient Home Medication Reconciliation performed by pharmacy medication reconciliations military technician and/or nursing. Patients Allergies have been reviewed. Allergies Allergies Coded Allergies Sulfa (Sulfonamide Antibiotics) (Verified Allergy, Unknown, 05/18/16) meperidine (Verified Allergy, Unknown, PATIENT TOLERATES FENTANYL, 01/08/19) Past Aofzthg-Dknbya-Nponhe Hx Past Med/Social Hx: Reviewed Nursing Past Med/Soc Hx, Reviewed and Corrections made Patient Social History Marrital Status: Employed/Student: retired ([employer] for 35 yrs [place], [place]) Alcohol Use: Regular Use Number of Drinks Today: 3 Alcohol Beverage of Choice: [place] Recreational Drug Use: No Smoking Status: Current Everyday Smoker Type Used: Cigarettes 2nd Hand Smoke Exposure: Yes Physical Abuse Screen: No Sexual Abuse: No Recent Foreign Travel: No Contact w/other who traveled: No Recent Hopitalizations: Yes Recent Infectious Disease Expo: No Immunizations Up To Date Tetanus Booster (TDap): Unknown Date of Pneumonia Vaccine: Apr 25, 2015 Date of Influenza Vaccine: Jan 23, 2018 Seasonal Allergies Seasonal Allergies: Yes Past Medical History Surgeries: Coronary Stent, Gallbladder, Joint Replacement Currently Using CPAP: Yes Currently Using BIPAP: No Cardiac: Atrial Fibrillation, Coronary Artery Disease, Hypertension Sexually Transmitted Disease: No HIV/AIDS: No Genitourinary: Kidney Stones Gastrointestinal: Gastroesophageal Reflux, Pancreatitis Musculoskeletal: Arthritis Cancer: Skin What Type of Treatment Did You: Surgical Intervention History of Blood Disorders: No Adverse Reaction to Blood Santana: No Family History Cancer Review of Systems Constitutional: see HPI, weakness EENTM: no symptoms reported Respiratory: cough Cardiovascular: no symptoms reported Gastrointestinal: constipation Genitourinary: no symptoms reported Musculoskeletal: back pain Skin: no symptoms reported Psychiatric/Neurological: Anxiety, Depressed, Emotional Problems All Other Systems Reviewed Negative Unless Noted: Yes Physical Exam Exam Vital Signs Vital Signs Date Time Temp Pulse Resp B/P (MAP) Pulse Ox O2 Delivery O2 Flow Rate FiO2 01/08/19 18:59 80 182/92 01/08/19 18:46 95 Room Air 01/08/19 16:35 20 01/08/19 15:51 36.6 Capillary Refill : General Appearance: No Apparent Distress, WD/WN, Chronically ill HEENT: PERRL/EOMI, Normal ENT Inspection, Pharynx Normal, Moist Mucous Membranes Neck: Full Range of Motion, Normal Inspection, Non Tender, Supple Respiratory: Chest Non Tender, Lungs Clear, Normal Breath Sounds, No Accessory Muscle Use, No Respiratory Distress Cardiovascular: Regular Rate, Rhythm, No Edema, No Gallop, No JVD, No Murmur Gastrointestinal: Normal Bowel Sounds, No Organomegaly, No Pulsatile Mass, Non Tender, Soft Back: Normal Inspection, No CVA Tenderness, No Vertebral Tenderness Extremity: Normal Capillary Refill, Normal Inspection, Normal Range of Motion, Non Tender, No Calf Tenderness, No Pedal Edema Neurologic/Psychiatric: Alert, Oriented x3, No Motor/Sensory Deficits, Normal Mood/Affect, Disoriented Skin: Normal Color, Warm/Dry Lymphatic: No Adenopathy Results Results/Procedures Labs Patient resulted labs reviewed. Assessment/Plan Assessment and Plan Assess & Plan/Chief Complaint Plan: IRF protocol Supportive care Delirium monitoring ETOH cessation (1) Debility Status: Acute (2) HTN (hypertension) Status: Chronic Qualifiers: Hypertension type: essential hypertension Qualified Codes: I10 - Essential (primary) hypertension (3) CAD (coronary artery disease) Status: Chronic Qualifiers: Coronary Disease-Associated Artery/Lesion type: [place] artery [place] vs. 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 Qualified Codes: 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 (11) Agitation Status: Resolved Resolution Date/Time: 01/07/19 @ 11:56 (12) Aphasia Status: Acute (13) Atrial fibrillation with rapid ventricular response Status: Acute (14) Hypomagnesemia Status: Acute (15) Paroxysmal A-fib Status: Chronic (16) Vertebral artery occlusion Status: Chronic Qualifiers: Laterality: unspecified laterality Qualified Codes: I65.09 - Occlusion and stenosis of unspecified vertebral artery Post Admission Physician Asses Date seen by provider: Jan 08, 2019 Time seen by provider: 14:00 Admisison Dx: (1) Debility Status: Acute The preadmission screen agrees with the post admission assessment that the patient is a good candidate for inpatient rehabilitation. The patient will have a comprehensive program of inpatient rehabilitation with a goal of maximizing level of functional independence prior to discharge home with family. The patient will have PT/OT ninety minutes per day, each discipline, five days a week for gait, strengthening, conditioning, balance, ADLs, any patient/family/caregiver training as necessary. Speech therapy to do cognitive assessment and treat as indicated. Rehabilitation nursing to assist with bowel, bladder, skin, wound care, medication administration, pain management. Nurse Private Duty to assist with discharge planning, community reentry. SCD's for DVT prophylaxis. He appears to be well motivated to participate in three hours of therapy a day. He should be able to tolerate three hours of therapy a day from a medical standpoint. He should benefit from the three hours of therapy a day. He has a reasonable discharge plan, reasonable discharge rehabilitation goals and a supportive family. He has various comorbidities that need to be closely monitored with medications and treatments adjusted on a daily basis as needed. These include: see list Barriers to discharge for this patient who had been independent prior to this are for him to be modified independent to supervision for ADLs and mobility skills prior to discharge home with family, so as to lessen the burden of the caregivers. Risks for this patient include: 1. Fall 2. Fracture 3. DVT 4. Pulmonary embolism 5. Wound infection 6. Skin breakdown 7. Contractures 8. Poorly controlled pain 9. Urinary retention 10. UTI 11. Respiratory infection 12. Aspiration Estimated Length of Stay: 7 days Prognosis: Rehab prognosis appears good for goal of discharge home with family modified independent to supervision for ADLs and mobility skills. CITLALI ABAD DO Jan 08, 2019 17:44
[2019-01-08] MEDS: RT-BUDESONIDE NEBS 0.5 MG/2ML (PULMICORT) AMP INH SCH (18:46)
[2019-01-08] MEDS: RT-ALBUTEROL/IPRATROPIUM 3 ML (DUONEB) VIAL INH SCH (18:46)
[2019-01-08] MEDS: APIXABAN 5 MG (ELIQUIS) TABLET PO SCH (20:49)
[2019-01-08] MEDS: MONTELUKAST 10 MG (SINGULAIR) TAB PO SCH (20:49)
[2019-01-09 05:49] VITALS: BP 156/79
[2019-01-09] MEDS: MULTIVIT W/MINERALS TAB (THERAGRAN M) PO SCH (06:25)
[2019-01-09] MEDS: predniSONE 20 MG TAB PO SCH (06:25)
[2019-01-09] MEDS: FOLIC ACID 1 MG TAB PO SCH (06:25)
[2019-01-09] MEDS: RT-ALBUTEROL/IPRATROPIUM 3 ML (DUONEB) VIAL INH SCH (07:26)
[2019-01-09] MEDS: RT-BUDESONIDE NEBS 0.5 MG/2ML (PULMICORT) AMP INH SCH ×2 (07:26→19:43)
[2019-01-09] MEDS: meTOprolol SUCCINATE 100 MG (TOPROL XL) TAB PO SCH (07:59)
[2019-01-09] MEDS: LOSARTAN 100 MG (COZAAR) TABLET PO SCH (07:59)
[2019-01-09] MEDS: PANTOPRAZOLE 20 MG TABLET (PROTONIX) PO SCH (07:59)
[2019-01-09] MEDS: LORATADINE (CLARITIN) 10 MG TAB PO SCH (07:59)
[2019-01-09] MEDS: lisINopril 20 MG (PRINIVIL) TABLET PO SCH (07:59)
[2019-01-09] MEDS: APIXABAN 5 MG (ELIQUIS) TABLET PO SCH ×2 (07:59→20:21)
--- NOTE | 2019-01-09 08:11 | PM&R Progress Note ---
Subjective HPI/CC On Admission Date Seen by Provider: Jan 09, 2019 Time Seen by Provider: 08:30 CC: Debility from alcoholism and altered mental status HPI: This is a 73yoWM who was admitted nearly a week ago of Dr. Macias's who presented with altered mental status found to have significant alcohol withdrawa l of which his was unaware that he was drinking alcohol but he was provided supportive care and subsequently has become quite debilitated overall. Smoking cessation has been counseled along with alcohol cessation. He is a retired [employer] for 35 years in [place]. He does report that he is needing to cut down on his alcohol. At this current time pt denies any significant pain, meds were reviewed, and will be continued on inpatient rehab. He has become incontinent and is need of further recovery before DC is planned. HPI per ELMER Martinez Sebastien Toledo is a 73-year-old male with past medical history of hypertension, co ronary artery disease, GERD, and ETOH abuse who was recently admitted for AMS; his hospital stay was complicated by alcohol withdrawal. 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 CVA was suspected but ruled out via CT and clinical picture which was more consistent with ETOH withdrawal rather than CT. No MRI was done. Alcohol abuse was managed via activating CIWA protocol, giving thiamine and Folic acid. Pt was recently diagnosed with Paroxysmal Afib and was followed by Cardiology who ordered an Echo and started him on Eliquis. Pt's last stay also involved Macrocytic anemia which required transfusions and continued tx with folic acid. After pt was stabilized he was transitioned to inpatient rehabilitation on 01/08/19. Subjective/Events-last exam Pt doing well but did have a panic attack after nebulizer treatments so he may need Xopenex. He does have a crack in between his great toe and his second toe so he may need Dr. Montoya wound care. Had several loose stools that started at 5 AM so his bowels are now moving. No evidence of any more alcohol withdrawal symptoms. BP was elevated but being managed with Hydralazine. No pain is reported. Lungs are stable but still a little bit coarse. Conferred with RN. Reviewed therapy notes. Checked meds and labs. Review of Systems General: Fatigue Pulmonary: Dyspnea Objective Exam Vital Signs Vital Signs Date Time Temp Pulse Resp B/P (MAP) Pulse Ox O2 Delivery O2 Flow Rate FiO2 01/09/19 19:51 95 Room Air 01/09/19 17:16 36.7 89 20 149/56 (87) Capillary Refill : General Appearance: No Apparent Distress, WD/WN, Chronically ill HEENT: PERRL/EOMI, Normal ENT Inspection, Pharynx Normal, Moist Mucous Membranes Neck: Full Range of Motion, Normal Inspection, Non Tender, Supple Respiratory: Chest Non Tender, Lungs Clear, Normal Breath Sounds, No Accessory Muscle Use, No Respiratory Distress Cardiovascular: Regular Rate, Rhythm, No Edema, No Gallop, No JVD, No Murmur Gastrointestinal: Normal Bowel Sounds, No Organomegaly, No Pulsatile Mass, Non Tender, Soft Back: Normal Inspection, No CVA Tenderness, No Vertebral Tenderness Extremity: Normal Capillary Refill, Normal Inspection, Normal Range of Motion, Non Tender, No Calf Tenderness, No Pedal Edema Neurologic/Psychiatric: Alert, Oriented x3, No Motor/Sensory Deficits, Normal Mood/Affect, Disoriented Skin: Normal Color, Warm/Dry Lymphatic: No Adenopathy Results/Procedures Lab Patient resulted labs reviewed. FIM Transfers Therapy Code Descriptions/Definitions Functional [place] Measure: 0=Not Assessed/NA 4=Minimal Assistance 1=Total Assistance 5=Supervision or Setup 2=Maximal Assistance 6=Modified [place] 3=Moderate Assistance 7=Complete [place] Therapy Quality Codes: 6 Independent with activity with or without an assistive device 5 Patient requires set up or clean up by helper. Patient completes activity by themselves 4 Supervision or touching assist (CGA). [place] provide cues , steadying assist 3 The helper provides less than half the effort to complete the activity 2 The helper provides more than half the effort to complete the activity 1 Dependent. The helper does all the effort to complete an activity 7 Patient refused to complete or attempt activity 9 The patient did not perform the activity before the current illness or injury 88 Not attempted due to Medical conditions or safety concerns Transfers (B, C, W/C) (FIM): 4 (CGA for safety) Scootin Rollin Roll Left to Right (QC): 5 Supine to/from Sit: 5 Sit to/from Stand: 4 Sit to Lying (QC): 5 Sit to Stand (QC): 4 Chair/Mmr-ge[place] Xfer(QC): 4 Car Transfer (QC): 5 Gait Training Does the Patient Walk?: Yes Gait (FIM): 4 Distance (FIM): 3=150 ft Walk 10 feet (QC): 4 Walk 50 ft with 2 Turns(QC): 4 Walk 150 ft (QC): 4 Walking 10ft/uneven surface-QC: 4 Gait Level of Assist: 4 Gait Persons Needed: 1 Gait Assistive Device: FWW Stair Training Stairs (FIM): 1 #of Steps: 1 1 Step (curb) (QC): 4 4 Steps (QC): 9 12 Steps (QC): 9 Level of Assist: 4 Mental Status/Objective Comprehension: 4 Expression: 5 Social Interaction: 6 Problem Solvin Memory: 4 ADL-Treatment Feedin (increased time noted) Eating (QC): 6 Groomin (CGA at sink for safety) Oral Hygiene (QC): 4 (CGA, pt able to manipulate all items with increased time.) Bathin (Assist with BLE and CGA for standing during hyacinth hygiene) Shower/Bathe Self (QC): 3 Upper Extremity Dressin (s/u) Upper Body Dressing (QC): 5 Lower Extremity Dressin (max A for threading BLE during breif and pant donning. Pt required assist pulling pants past knees.) Lower Body Dressing (QC): 2 On/Off Footwear (QC): 2 (max A bilateral socks, mod A shoe donning. Pt's limbs ataxic during lifting motion. Pt states, "I feel like my limbs are in control of me instead of me in control of my limbs.") Toiletin (SBA for safety) Toileting Hygiene (QC): 4 (SUP for safety) Toilet/Commode Transfer: 4 (CGA for safety.) Toilet Transfer (QC): 4 Tub: 4 (CGA to min A during sit to stand from shower bech to FWW) Assessment/Plan Assessment and Plan Assess & Plan/Chief Complaint Plan: IRF protocol Supportive care Delirium monitoring ETOH cessation Hold laxatives (1) Debility Status: Acute (2) Hypokalemia Status: Acute (3) Folate deficiency Status: Acute (4) Pancytopenia Status: Acute (5) Interstitial lung disease Status: Chronic (6) Weight loss, unintentional Status: Chronic (7) CAD (coronary artery disease) Status: Chronic Qualifiers: Coronary Disease-Associated Artery/Lesion type: [place] artery [place] vs. transplanted heart: [place] heart Associated angina: without angina Qualified Codes: I25.10 - Atherosclerotic heart disease of [place] coronary artery without angina pectoris (8) HTN (hypertension) Status: Chronic Qualifiers: Hypertension type: essential hypertension Qualified Codes: I10 - Essential (primary) hypertension (9) Nausea & vomiting Status: Acute Qualifiers: Vomiting type: unspecified (10) Atrial fibrillation with rapid ventricular response Status: Acute (11) Hypomagnesemia Status: Acute (12) Vertebral artery occlusion Status: Chronic Qualifiers: Laterality: unspecified laterality Qualified Codes: I65.09 - Occlusion and stenosis of unspecified vertebral artery (13) Aphasia Status: Acute (14) Altered mental status Status: Resolved Resolution Date/Time: 01/07/19 @ 11:56 (15) Alcohol dependence Status: Resolved Resolution Date/Time: 01/07/19 @ 11:56 Qualifiers: 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
--- NOTE | 2019-01-09 08:11 | Individualized Plan of Care ---
Individualized Plan of Care Rehab Nursing IPOC Order Admission Date Jan 08, 2019 at 11:41 Current Orders Orders Admission Arrival Bed Request (01/08/19 11:41) Admission Order(Inpt,Obs,Sdc) (01/08/19 11:43) Manager Council-Inpt Rehab Con (01/08/19 11:43) Rehab Nursing Orders-Ipoc (01/08/19 11:43) Physical Therapy Rehab Orders (01/08/19 11:43) Occupational Therapy Rehab Ord (01/08/19 11:43) Speech Therapy Rehab Orders (01/08/19 11:43) Intake & Output 06,14,22 (01/08/19 11:43) Precautions (Aru) (01/08/19 11:43) Weekly Weight (Lbs) WEEK (01/08/19 11:43) Rehab-Intensity Of Therapy (01/08/19 11:43) Initiate Admission Nursing Pro .admission (01/08/19 11:43) Transfer - Bed/Room/Location (01/08/19 11:39) Code/Resuscitation (01/08/19 12:34) Ambulate 08,12,20 (01/08/19 12:34) Initiate/Follow Protocol (01/08/19 12:34) Notify Physician: (01/08/19 12:34) Oxygen-Administer 07,19 (01/08/19 12:34) Weight Bearing Status (01/08/19 12:34) Automatic Tray (01/08/19 12:34) Dys2 Mechanically Altered (01/08/19 Dinner) Albuterol/Ipra Inhalation Soln (Duoneb I (01/08/19 14:00) Apixaban Tablet (Eliquis Tablet) (01/08/19 21:00) Bisacodyl Suppository (Dulcolax Supposit (01/08/19 12:45) Budesonide Inhalation Solution (Pulmicor (01/08/19 21:00) Carboxymethylcell Ophth Soln (Refresh Pl (01/08/19 12:45) Folic Acid Tablet (Folic Acid Tablet) (01/09/19 07:00) Hydrocodone/Apap 5/325 Tablet (Lortab 5 (01/08/19 12:45) Lorazepam Injection (Ativan Injection) (01/08/19 12:45) Lactulose Oral Solution (Enulose Oral So (01/08/19 12:45) Lipase/Amylase/Protease Caps (Pancrelipa (01/08/19 12:45) Loratadine Tablet (Claritin Tablet) (01/09/19 09:00) Losartan Tablet (Cozaar Tablet) (01/09/19 09:00) Antacid Suspension (Mylanta Suspension (01/08/19 12:45) Montelukast Tablet (Singulair Tablet) (01/08/19 21:00) Therapeutic Multivitamin Tab (Vitamins, (01/09/19 07:00) Na Phos/Na Biphos Enema (Fleet Enema Abhishek (01/08/19 12:45) Ondansetron Injection (Zofran Injectio (01/08/19 12:45) Ondansetron Oral Dissolve Tab (Zofran (01/08/19 12:45) Pantoprazole Tablet (Protonix Tablet) (01/09/19 09:00) Senna S Tablet (Senokot S Tablet) (01/08/19 12:45) Fentanyl Injection (Sublimaze Injection (01/08/19 12:45) Lisinopril Tablet (Zestril Tablet) (01/09/19 09:00) Metoprolol Succinate (Xl) Tab (Toprol Xl (01/09/19 09:00) Prednisone Tablet (Deltasone Tablet) (01/09/19 07:00) Consult Cardiology (01/08/19 12:34) Svn Small Volume Nebulizer (01/08/19 12:34) Svn Small Volume Nebulizer (01/08/19 12:34) Patient Visit (01/08/19 ) Pt Eval Moderate Complexity (01/08/19 ) Functional Activities, Ea 15 (01/08/19 ) General/Regular (01/08/19 Lunch) Patient Visit (01/08/19 ) Therapeutic, Group (01/08/19 ) Patient Visit (01/08/19 ) Speech Sound Lang Comp (01/08/19 ) Hydralazine Tablet (Apresoline Tablet) (01/08/19 17:00) Ambulate 08,12,20 (01/08/19 17:20) Sequential Compression Device .once (01/08/19 17:20) Dvt/Vte Risk - Notifiy Physici .admit once (01/08/19 17:20) Edu Tobacco/Smoking Cessation .prn (01/08/19 17:37) Ambulate 08,12,20 (01/08/19 17:37) Sequential Compression Device .once (01/08/19 17:37) Dvt/Vte Risk - Notifiy Physici .admit once (01/08/19 17:37) Levalbuterol (Non-Formulary) (Xopenex (N (01/09/19 14:00) Amlodipine Tablet (Norvasc Tablet) (01/09/19 10:15) Amlodipine Tablet (Norvasc Tablet) (01/10/19 09:00) Basic Metabolic Panel (01/10/19 05:00) Cbc No Diff (01/10/19 05:00) Aspirin Chewable Tablet (Baby Aspirin Ch (01/10/19 09:00) Levalbuterol (Non-Formulary) (Xopenex (N (01/09/19 14:00) Patient Visit (01/09/19 ) Gait Training, Ea 15 Min (01/09/19 ) Exercise Therap, Ea 15 Min (01/09/19 ) Functional Activities, Ea 15 (01/09/19 ) Patient Visit (01/09/19 ) Treat. Speech/Lang/Voice (01/09/19 ) Rehab Nursing Orders: Ongoing Assess. of Cognitive Status, Ongoing Assess. of Function Status, Bladder Management, Bladder Scan, Bladder Training, Bowel Management, Bowel Training, Disease Management & Educaiton, DVT Prophylaxis, Fall Prevention, Fluid/Electrolyte/Nutrition Mgmt, Infection Prevention, Medication Management & Education, Management of Risks & Complications, Management of Skin Intergrity, Nutrition Management, Pain Management, Patient/Family Support, Safety Management Intensity of Therapy to be met Patient to be seen: Min.3h per day/5 of 7d PT IPOC Problem List: Activity Tolerance, Functional Strength, Safety, Balance, Gait, Transfer, Bed Mobility Treatment Plan: Continue Plan of Care Bed Mobility, Education, Functional Activity Jordy, Functional Strength, Group Therapy, Gait, Safety, Therapeutic Exercise, Transfers Treatment Duration: Feb 03, 2019 Frequency: At least 5 of 7 days/Wk (IRF) Estimated Hrs Per Day: 1.5 hours per day OT IPOC Problems: Decreased Activ Tolerance, Decreased Safety Aware, Dependent Transfers, Impaired Coordination, Impaired Funct Balance, Impaired I ADL's, Impaired Self-Care Skills OT Treatment, Training and Edu: Yes Plan of Care: ADL Retraining, Caregiver Training, Cognitive Retraining, Functional Mobility, Group Exercise/Act as Ind, UE Funct Exercise/Act, UE Neuromus Re-Ed/Coord Treatment Duration: Jan 09, 2019 Frequency: 5 times per week Estimated Hrs Per Day: 1 hour per day (1-1.5 hours per day) ST IPOC Speech Therapy Treatment Plan: Continue Plan of Care Treatment Duration: Jan 19, 2019 Frequency: 5 times per week Estimated Hrs Per Day: .5 hour per day Manager Council/Case Mgmt Manager Council/Case Managemen: Discharge Planning Dietitian/Aircraft Load Controller Dietitian/Aircraft Load Controller to monitor nutritional status and make changes and/or recommendations as needed and work with speech pathology on dietary upgrades as the occur. Physician IPOC Medical Issues being managed closely and that require the 24 hour availability of a physician: Recent alcohol withdrawal with atrial fibrillation with rapid ventricular response requiring ICU stay and significant delirium will require close supervision in case delirium recurs Medical Issues: Bowel/Bladder Function, DVT Prophylaxis, Falls Precautions, Fluid/Electrolyte/Nutrition Balance, Pain Management Brief Synthesis of Preadmission Screen, Post-Admission Evaluation, and Therapy Evaluations: Physical therapy will focus on ambulation with the use of assistive device along with fall prevention Occupational Therapy will help regain independent ADL performance Speech therapy will work on cognition Medical Prognosis: Good Anticipated Length of Stay: 7 days DUKE ABAD DO Jan 09, 2019 08:11
--- NOTE | 2019-01-09 09:56 | Physical Therapy Daily Note ---
PT Daily Note-Current Subjective Patient in recliner pre tx, agrees to PT, has no complaints of pain but states he is very tired because he has been up at night having BM's. Appearance Patient in recliner post tx with nurse call, phone, tray, all needs met. Mental Status Patient Orientation: Person, Place, Situation Transfers Therapy Code Descriptions/Definitions Functional [place] Measure: 0=Not Assessed/NA 4=Minimal Assistance 1=Total Assistance 5=Supervision or Setup 2=Maximal Assistance 6=Modified [place] 3=Moderate Assistance 7=Complete [place] Therapy Quality Codes: 6 Independent with activity with or without an assistive device 5 Patient requires set up or clean up by helper. Patient completes activity by themselves 4 Supervision or touching assist (CGA). [place] provide cues , steadying assist 3 The helper provides less than half the effort to complete the activity 2 The helper provides more than half the effort to complete the activity 1 Dependent. The helper does all the effort to complete an activity 7 Patient refused to complete or attempt activity 9 The patient did not perform the activity before the current illness or injury 88 Not attempted due to Medical conditions or safety concerns Transfers (B, C, W/C) (FIM): 4 Sit to/from Stand: 4 Bed to/from Chair: 4 CGA, occasional unsteadiness with sit to stand Weight Bearing Right Lower Extremity: Right Weight Bearing/Tolerated Left Lower Extremity: Left Weight Bearing/Tolerated Gait Training Gait (FIM): 2 Distance: 100'x3 Gait Level of Assist: 4 Gait Persons Needed: 1 Gait Assistive Device: FWW CGA, unsteady, very slow, patient takes a standing rest break after every couple of steps, very fatigued. During treatment patient had to go back to his bathroom and have a BM, just CGA for sitting and while he gets his pants down and up. Exercises Seated Therapy Exercises: Ankle pumps, Long arc quads, Hip flexion, Hip abd/add Seated Reps: 20 NuStep Minutes: 10 NuStep Workload: 4 Treatments LE exercise, ambulation, toileting, transfers Assessment Current Status: Poor Progress very fatigued PT Short Term Goals Short Term Goals Transfers (B,C,W/C) (FIM): 5 PT Jail Goals Jail Goals PT Subway Train Operator Goals Time Frame: Feb 03, 2019 Transfers (B,C,W/C) (FIM): 6 Sit to Lying (QC): 6 Lying-Sitting on Side/Bed(QC): 6 Sit to Stand (QC): 6 Rollin Roll Left to Right (QC): 6 Chair/Rxe-gd-Quixd Xfer(QC): 6 Car Transfer (QC): 6 Does the Patient Walk: Yes Gait (FIM): 6 Gait distance (FIM): 3=150 ft Distance: 250' Walk 10 feet (QC): 6 Walk 10ft-Uneven Surface(QC): 6 Walk 50ft with 2 Turns (QC): 6 Walk 150 ft (QC): 6 Gait Level of Assist: 6 Gait Assistive Device: FWW Stairs (FIM): 2 # of Steps: 4 1 Step (curb) (QC): 6 4 Steps (QC): 6 12 Steps (QC): 9 Stairs Level Of Assist: 6 Picking up an Object (QC): 6 PT Plan Problem List Problem List: Activity Tolerance, Functional Strength, Safety, Balance, Gait, Transfer, Bed Mobility, ROM Treatment/Plan Treatment Plan: Continue Plan of Care Treatment Plan: Bed Mobility, Education, Functional Activity Jordy, Functional Strength, Group Therapy, Gait, Safety, Therapeutic Exercise, Transfers Treatment Duration: Feb 03, 2019 Frequency: At least 5 of 7 days/Wk (IRF) Estimated Hrs Per Day: 1.5 hours per day Patient and/or Family Agrees t: Yes Safety Risks/Education Patient Education: Gait Training, Transfer Techniques, Correct Positioning, Safety Issues Teaching Recipient: Patient Teaching Methods: Demonstration, Discussion Response to Teaching: Reinforcement Needed Time/GCodes Time In: 0900 Time Out: 1000 Total Billed Treatment Time: 60 Total Billed Treatment 1 visit EX 20' GT 30' FA 10' STACY LOPEZ PT Jan 09, 2019 09:56
--- NOTE | 2019-01-09 09:56 | Progress Note - Cardiology ---
Cardiology SOAP Progress Note Subjective: Sitting up in chair at the bedside. C/O POLANCO. No c/o CP. C/O palpitations this morning after breathing tx. No c/o syncope or near syncope. Objective: I&O/Vital Signs 01/09/19 01/09/19 01/09/19 01/09/19 07:28 07:29 08:23 15:10 Pulse Ox 97 97 93 O2 Delivery Room Air Room Air Room Air Room Air 01/09/19 17:16 Temp 36.7 Pulse 89 Resp 20 B/P (MAP) 149/56 (87) Pulse Ox 95 O2 Delivery Room Air 01/08/19 23:59 Intake Total 900 ml Balance 900 ml Weight (Pounds): 191 Weight (Ounces): 0.0 Weight (Calculated Kilograms): [id number] Constitutional: AAO x 3, well-developed, well-nourished Respiratory: No accessory muscle use, No respiratory distress; chest expansion is symmetric, chest is bilaterally symmetric, rhonchi (scattered), other (prolonged expiratory phase) Cardiovascular: regular rate-rhythm; No JVD; S1 and S2, systolic murmur Gastrointestional: No tender; soft, audible bowel sounds Extremities: other (mild bilat LE swelling) Neurologic/Psychiatric: grossly intact Skin: No rash on exposed areas, No ulcerations on exposed areas; other (multiple bruises to arms/legs bilat with abrasions; drsg to left elbow D&I) A/P: Assessment: AMS of undetermined etiology, probably related to alcohol withdrawal, managed by the Hospitalist Svce - improved PAF Anemia of undetermined etiology - being managed the Hospitalist/Medical Svce H/o mild to mod pancytopenia being during admission of Dec 23-Dec 4 OAC with Eliquis Upper and lower endoscopy of 12-27-[address] 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 This is of unknown age. There is mild to moderate narrowing of the proximal basilar artery. Per CTA of 01-02-19 Recent weight loss of approx 30 lbs of undetermined etiology CAD - Cardiac cath of 09/19/18 showed patent RCA stents that were place in Apr 2016: Alpine Xience 3.5 x 15 mm prox and Alpine Xience 3.0 x 15 mm distally, postdilated with a 3.5 mm balloon, The rest of the vessels have diffuse, mod disease. LVEF 50-55%. Normal LVEDP Echocardiogram of December 24, [address] Jimenez concentric hypertrophy. LVEF 45-50%. Grade 1 diastolic dysfunction. AoV thickening consistent with sclerosis with mild regurg. PASP 15-20mmHg. Severe ostial left renal artery stenosis with subsequent percutaneous transluminal angioplasty and residual minimal stenosis, no dissection or distal embolization by Dr. Keen at [facility] in [place], [place] in the early CT of the chest from August 2016 showed borderline adenopathy in the axillary regions and in the subcarinal space. 7 mm pulmonary nodule in the RUL. This is followed by Dr Toya MENDOZA, treated with CPAP, followed by Dr Pittman Mild carotid arterial disease on Carotid u/s of 09/21/18 PAD - PCI of the right anterior tibial, posterior tibial and peroneal with Medtronic Nitinol 4mm x 20mm stent in the right posterior tibial December 08, [address] Langston in [place], [place]. Peripheral angio of 09/19/18: Infrarenal AAA, mod in size, just above aorto iliac bifurcation; mod diff disease of the sup fems and distal leg circulation on both sides. Patent R post tib stent Hypertension HLP - statin therapy followed by his PCP - currently being withheld d/t recent episode of pancreatitis Emphysema GERD H/o pancreatitis in the past - managed by PCP EKG of 11-03-15 showed LVH with repolarization abnormality and LAFB; not significantly changed on 09/13/18 CKD stage 2-3 H/o heavy ETOH use Tobaccoism - 2 PPD Plan: BP not well controlled adjust antihypertensive regimen Monitor lab closely We recommend a work up to locate any source of occult bleeding. It should be treated so that oral anticoagulation will be continued without interruption for stroke prophylaxis Add low dose ASA d/t known h/o CAD, carotid dz and PAD with stenting in the past if ok with medical services Physician Assessment Physician Assessment Feels tired. Short of breath with mild exertion. No cp or palp or syncope Lungs: prolonged exp phase, exp wheezes Cor: reg Ext: no c/c; mod pitting edema of the leg A&R * As documented in our note above that I updated (italics) and as noted below) * Diuretics for edema * Monitor labs BARNEY KINSEY IRONER MACHINE Jan 09, 2019 09:56 DAGO RAPHAEL MD [facility] Jan 09, 2019 17:56
--- NOTE | 2019-01-09 09:56 | Occupational Ther Daily Note ---
OT Current Status-Daily Note Subjective Pt seen in bed, wounds on feet exposed. Pt states little pain, demonstrating increased shaking. Nursing present, stating pt just completed breathing treatment, pt educated on pursed lip breathing. Pt states post-breathing tx, pt becomes "shaky like this". Pt agreeable to OT tx session. Mental Status/Objective Patient Orientation: Normal For Age Therapy Code Descriptions/Definitions Functional [place] Measure: 0=Not Assessed/NA 4=Minimal Assistance 1=Total Assistance 5=Supervision or Setup 2=Maximal Assistance 6=Modified [place] 3=Moderate Assistance 7=Complete [place] Attachments: IV ADL-Treatment Therapy Code Descriptions/Definitions Functional [place] Measure: 0=Not Assessed/NA 4=Minimal Assistance 1=Total Assistance 5=Supervision or Setup 2=Maximal Assistance 6=Modified [place] 3=Moderate Assistance 7=Complete [place] Therapy Quality Codes: 6 Independent with activity with or without an assistive device 5 Patient requires set up or clean up by helper. Patient completes activity by themselves 4 Supervision or touching assist (CGA). [place] provide cues , steadying assist 3 The helper provides less than half the effort to complete the activity 2 The helper provides more than half the effort to complete the activity 1 Dependent. The helper does all the effort to complete an activity 7 Patient refused to complete or attempt activity 9 The patient did not perform the activity before the current illness or injury 88 Not attempted due to Medical conditions or safety concerns Eating (FIM): 5 (Pt required assist for holding water/ coffee during drinking due to increased ataxia/ shaking. Pt able to open sugar packet after increased breathing exercises. Pt required s/u for help opening milk carton, able to peel open top but unable to complete opening wihtout spillage.) Eating (QC): 5 (s/u) Grooming (FIM): 4 (CGA at sink for hand hygiene post-toileting) Lower Body Dressing (FIM): 4 (Pt educated on use of copy writer for LB dressing. Pt able to complete with cues, demonstration, and CGA during standing to pull up.) Lower Body Dressing (QC): 4 (CGA during stance.) On/Off Footwear (QC): 4 (Pt utilized copy writer to fix heel of shoe in order to place foot in. Pt required min A for heel placement. Pt demonstrated ataxic movements with LB during LB dressing and shoe donning. UE demonstrated good control over copy writer during movments.) Toileting (FIM): 4 (CGA during hyacinth hygiene. Pt stated commode uncomfortable and pinching him. Pt able to stand with fair+ balance during wiping.) Toileting Hygiene (QC): 4 Transfers (B, C, W/C) (FIM): 4 (CGA to min A for sit to stand and bed mob.) Toilet/Commode Transfer (FIM): 4 (CGA for safety) Toilet Transfer (QC): 4 (CGA) Other Treatment Pt seen in bed, hands shaking. Pt required assist holding cup in front during medication. Pt completed pursed lip breathing and sponge squeezes (10x per hand) with increased cues for breathing techniques as pt desired to hold breath upon lung fill. Pt demosntrated competence of pursed lip breathing by completing last 5 of 20 breaths with decreased cues. Pt demonstrated decreased shaking by completing fine motor movements to open sugar packages with increased time. Pt compelted coffee preparation with coffee cup held for safety by OT. Pt completed bed mob with increased time and CGA at times for safety. Pt moans as reaches EOB. Pt completed UB theraband exercises (10 reps of 3 exercises) EOB to increase motor control, strength, endurance, and core strength. Pt stated he had BMs throughout the night and did not sleep well, states he may need to use the commode once more. Education OT Patient Education: Correct positioning, Energy conservation, Exercise program, Home exercise program, Modified ADL techniques, Progress toward Goal/Update tx plan, Purpose of tx/functional activities, Rehab process, Safety issues, Transfer techniques, Use of adapted equipment Teaching Recipient: Patient Teaching Methods: Demonstration, Discussion Response to Teaching: Verbalize Understanding, Return Demonstration OT Short Term Goals Short Term Goals Upper Body Dressing(FIM): 6 Lower Body Dressing(FIM): 3 (met) Transfers (B,C,W/C) (FIM): 5 1=Demonstrate adherence to instructed precautions during ADL tasks. 2=Patient will verbalize/demonstrate understanding of assistive devices/modifications for ADL. 3=Patient will improve strength/tolerance for activity to enable patient to perform ADL's. OT Mcfp Goals Transportation Dispatch Manager Goals Eating (FIM): 7 Eating (QC): 6 Groomin Oral Hygiene (QC): 6 Bathing(FIM): 6 Shower/Bathe Self (QC): 6 Upper Body Dressing(FIM): 6 Upper Body Dressing (QC): 6 Lower Body Dressing(FIM): 6 Lower Body Dressing (QC): 6 On/Off Footwear (QC): 6 Toileting(FIM): 5 Toileting Hygiene (QC): 6 Transfers (B,C,W/C) (FIM): 6 Toilet/Commode Transfer(FIM): 5 Toilet/Commode Transfer (QC): 4 Tub Transfer(FIM): 5 Shower Transfer(FIM): 5 Additional Goals: 1-Demonstrate ADL Tasks, 2-Verbalize Understanding, 3- ImproveStrength/Jordy 1=Demonstrate adherence to instructed precautions during ADL tasks. 2=Patient will verbalize/demonstrate understanding of assistive devices/modifications for ADL. 3=Patient will improve strength/tolerance for activity to enable patient to perform ADL's. OT Education/Plan Problem List/Assessment Assessment: Decreased Activ Tolerance, Decreased Safety Aware, Decreased UE Strength, Dependent Transfers, Impaired Coordination, Impaired Funct Balance, Impaired I ADL's, Impaired Self-Care Skills Discharge Recommendations Plan/Recommendations: Continue POC Treatment Plan/Plan of Care Treatment,Training & Education: Yes Patient would benefit from OT for education, treatment and training to promote independence in ADL's, mobility, safety and/or upper extremity function for ADL's. Plan of Care: ADL Retraining, Caregiver Training, Cognitive Retraining, Functional Mobility, Group Exercise/Act as Ind, UE Funct Exercise/Act, UE Neuromus Re-Ed/Coord Frequency: 5 times per week Estimated Hrs Per Day: 1 hour per day (1-1.5 hours per day) Agreement: Yes Rehab Potential: Fair Time/GCodes Start Time: 08:00 Stop Time: 08:45 Total Time Billed (hr/min): 45 Billed Treatment Time 1 ADLx2 EX (45) JOANA MENDOZA OTR Jan 09, 2019 09:56
[2019-01-09] MEDS ORDERED: amLODIPine 5 MG (NORVASC) TAB PO NR (10:15)
--- NOTE | 2019-01-09 10:34 | Occupational Ther Daily Note ---
OT Current Status-Daily Note Subjective Pt seen in room, nurse present during toileting. Pt agreeable to OT tx session, no pain stated. Mental Status/Objective Therapy Code Descriptions/Definitions Functional [place] Measure: 0=Not Assessed/NA 4=Minimal Assistance 1=Total Assistance 5=Supervision or Setup 2=Maximal Assistance 6=Modified [place] 3=Moderate Assistance 7=Complete [place] Attachments: IV ADL-Treatment Therapy Code Descriptions/Definitions Functional [place] Measure: 0=Not Assessed/NA 4=Minimal Assistance 1=Total Assistance 5=Supervision or Setup 2=Maximal Assistance 6=Modified [place] 3=Moderate Assistance 7=Complete [place] Therapy Quality Codes: 6 Independent with activity with or without an assistive device 5 Patient requires set up or clean up by helper. Patient completes activity by themselves 4 Supervision or touching assist (CGA). [place] provide cues , steadying assist 3 The helper provides less than half the effort to complete the activity 2 The helper provides more than half the effort to complete the activity 1 Dependent. The helper does all the effort to complete an activity 7 Patient refused to complete or attempt activity 9 The patient did not perform the activity before the current illness or injury 88 Not attempted due to Medical conditions or safety concerns Lower Body Dressing (FIM): 5 (cues and use of AE (head field hockey coach) for LB dressing.) Lower Body Dressing (QC): 4 (cues) On/Off Footwear (QC): 4 (cues required. Pt educated of shoe horn, able to return demonstrate with 1 shoe, required min A due to need for bathroom and increased time required for coordination of task with other foot.) Toileting (FIM): 4 (CGA during hyacinth hygiene) Toileting Hygiene (QC): 4 (CGA, min A for wiping thoroughly. Pt able to wipe 3x, required assist.) Transfers (B, C, W/C) (FIM): 4 (CGA) Toilet/Commode Transfer (FIM): 4 (CGA for safety) Toilet Transfer (QC): 4 (CGA) Other Treatment Pt completed toileting routine, hand washing with SBA. Pt completed washing self while in bed, utilized wipes to complete. Pt required assist to reach lower legs. Pt utilized FWW to go to therapy gym, taking rest break within chair half way. Pt stated need for rest room, declined rest room upon standing. Pt completed 11 minutes of arm bike with minimal resistance, pt took rest break ~every 2 minutes, stating arms were tired but would keep going. Pt reminded of pursed lip breathing, pt continued with pursed lip. pt states paresthesia in BUE once more today, stating it is always there and goes from elbow to finger tips on both anterior and posterior sides. Pt sit to stands with CGA. Pt ambulated to room, completed toileting with SBA and cues for AE during LB dressing. Pt required assist for thorough wiping, nursing notified of pain and redness on wipe. Pt completed bed mob with SBA, left in room with HOB raised and all needs met, call light in reach. Education OT Patient Education: Correct positioning, Energy conservation, Exercise program, Modified ADL techniques, Purpose of tx/functional activities, Rehab process, Safety issues, Transfer techniques, Use of adapted equipment Teaching Recipient: Patient Teaching Methods: Demonstration, Discussion Response to Teaching: Verbalize Understanding, Return Demonstration OT Short Term Goals Short Term Goals Upper Body Dressing(FIM): 6 Lower Body Dressing(FIM): 3 (met) Transfers (B,C,W/C) (FIM): 5 1=Demonstrate adherence to instructed precautions during ADL tasks. 2=Patient will verbalize/demonstrate understanding of assistive devices/modifications for ADL. 3=Patient will improve strength/tolerance for activity to enable patient to perform ADL's. OT Intermediate Goals Floor Scrubber Goals Eating (FIM): 7 Eating (QC): 6 Groomin Oral Hygiene (QC): 6 Bathing(FIM): 6 Shower/Bathe Self (QC): 6 Upper Body Dressing(FIM): 6 Upper Body Dressing (QC): 6 Lower Body Dressing(FIM): 6 Lower Body Dressing (QC): 6 On/Off Footwear (QC): 6 Toileting(FIM): 5 Toileting Hygiene (QC): 6 Transfers (B,C,W/C) (FIM): 6 Toilet/Commode Transfer(FIM): 5 Toilet/Commode Transfer (QC): 4 Tub Transfer(FIM): 5 Shower Transfer(FIM): 5 Additional Goals: 1-Demonstrate ADL Tasks, 2-Verbalize Understanding, 3- ImproveStrength/Jordy 1=Demonstrate adherence to instructed precautions during ADL tasks. 2=Patient will verbalize/demonstrate understanding of assistive devices/modifications for ADL. 3=Patient will improve strength/tolerance for activity to enable patient to perform ADL's. OT Education/Plan Problem List/Assessment Assessment: Decreased Activ Tolerance, Decreased Safety Aware, Decreased UE Strength, Dependent Transfers, Impaired Coordination, Impaired Funct Balance, Impaired I ADL's, Impaired Self-Care Skills Discharge Recommendations Plan/Recommendations: Continue POC Treatment Plan/Plan of Care Treatment,Training & Education: Yes Patient would benefit from OT for education, treatment and training to promote independence in ADL's, mobility, safety and/or upper extremity function for ADL's. Plan of Care: ADL Retraining, Caregiver Training, Cognitive Retraining, Functional Mobility, Group Exercise/Act as Ind, UE Funct Exercise/Act, UE Neuromus Re-Ed/Coord Frequency: 5 times per week Estimated Hrs Per Day: 1 hour per day (1-1.5 hours per day) Agreement: Yes Rehab Potential: Fair Time/GCodes Start Time: 10:00 Stop Time: 10:55 Total Time Billed (hr/min): 55 Billed Treatment Time 1 ADLx2 (30) EX x2 (35) (55) JOANA MENDOZA OTR Jan 09, 2019 10:34
--- NOTE | 2019-01-09 13:05 | Physical Therapy Daily Note ---
PT Daily Note-Current Subjective Patient in bed pre tx, agrees to PT, has pain in his bottom from hemorrhoids, unrated. Appearance Patient in bed post tx with nurse call, phone, tray, all needs met. Mental Status Patient Orientation: Person, Place, Situation Transfers Therapy Code Descriptions/Definitions Functional [place] Measure: 0=Not Assessed/NA 4=Minimal Assistance 1=Total Assistance 5=Supervision or Setup 2=Maximal Assistance 6=Modified [place] 3=Moderate Assistance 7=Complete [place] Therapy Quality Codes: 6 Independent with activity with or without an assistive device 5 Patient requires set up or clean up by helper. Patient completes activity by themselves 4 Supervision or touching assist (CGA). [place] provide cues , steadying assist 3 The helper provides less than half the effort to complete the activity 2 The helper provides more than half the effort to complete the activity 1 Dependent. The helper does all the effort to complete an activity 7 Patient refused to complete or attempt activity 9 The patient did not perform the activity before the current illness or injury 88 Not attempted due to Medical conditions or safety concerns Transfers (B, C, W/C) (FIM): 5 Scootin Rollin Supine to/from Sit: 5 Sit to/from Stand: 5 Bed to/from Chair: 5 Weight Bearing Right Lower Extremity: Right Weight Bearing/Tolerated Left Lower Extremity: Left Weight Bearing/Tolerated Gait Training Gait (FIM): 2 Distance: 100'x2 Gait Level of Assist: 5 Gait Persons Needed: 1 Gait Assistive Device: FWW slow ambulation Exercises Standing: Hip Abduction, Heel/toe raises, Mini squats Standing Reps: 15 Treatments LE exercise, bed mobility and transfers, ambulation Assessment Current Status: Fair Progress patient very fatigued PT Short Term Goals Short Term Goals Transfers (B,C,W/C) (FIM): 5 PT Chcf Goals Chcf Goals PT Gas Leak Inspector Goals Time Frame: Feb 03, 2019 Transfers (B,C,W/C) (FIM): 6 Sit to Lying (QC): 6 Lying-Sitting on Side/Bed(QC): 6 Sit to Stand (QC): 6 Rollin Roll Left to Right (QC): 6 Chair/Hqz-hm-Oxbca Xfer(QC): 6 Car Transfer (QC): 6 Does the Patient Walk: Yes Gait (FIM): 6 Gait distance (FIM): 3=150 ft Distance: 250' Walk 10 feet (QC): 6 Walk 10ft-Uneven Surface(QC): 6 Walk 50ft with 2 Turns (QC): 6 Walk 150 ft (QC): 6 Gait Level of Assist: 6 Gait Assistive Device: FWW Stairs (FIM): 2 # of Steps: 4 1 Step (curb) (QC): 6 4 Steps (QC): 6 12 Steps (QC): 9 Stairs Level Of Assist: 6 Picking up an Object (QC): 6 PT Plan Problem List Problem List: Activity Tolerance, Functional Strength, Safety, Balance, Gait, Transfer, Bed Mobility, ROM Treatment/Plan Treatment Plan: Continue Plan of Care Treatment Plan: Bed Mobility, Education, Functional Activity Jordy, Functional Strength, Group Therapy, Gait, Safety, Therapeutic Exercise, Transfers Treatment Duration: Feb 03, 2019 Frequency: At least 5 of 7 days/Wk (IRF) Estimated Hrs Per Day: 1.5 hours per day Patient and/or Family Agrees t: Yes Safety Risks/Education Patient Education: Gait Training, Transfer Techniques, Correct Positioning, Safety Issues Teaching Recipient: Patient Teaching Methods: Demonstration, Discussion Response to Teaching: Reinforcement Needed Time/GCodes Time In: 1230 Time Out: 1300 Total Billed Treatment Time: 30 Total Billed Treatment 1 visit EX 10' GT 20' STACY LOPEZ PT Jan 09, 2019 13:05
[2019-01-09] MEDS ORDERED: RT-LEVALBUTEROL (XOPENEX) 1.25 MG/3 ML NEB NON-FORMULARY INH SCH (14:00)
[2019-01-09] MEDS: RT-LEVALBUTEROL (XOPENEX) 1.25 MG/3 ML NEB NON-FORMULARY INH SCH ×2 (15:10→19:43)
--- NOTE | 2019-01-09 15:11 | NUR ---
Initial Assessment This worker met with patient and his spouse to complete initial assessment. Patient admitted to ARU on 01/08/19 from 4th floor with weakness and debility. Prior to hospitalization the patient was living at home with his spouse in [place], [place]. Patient's spouse reports the home is single level with no inside stairs and no entry stairs. The patient reports, that prior to hospitalization, he was independent with ADLs and functional mobility without the use of adaptive equipment/devices. He reports he has a FWW and SPC at home, but was using neither prior to hospitalization. He reports the home shower/tub has a built in seat. Primary contact his Valery Toledo, spouse, and she can be reached at [phone] (cell) or [phone] (home). Patient confirmed primary insurance as Medicare with supplemental coverage provided by [employer]. Patient confirms his PCP is Dr. Macias. [facility]. Both the patient and his spouse report discharge goal of returning home. The purpose of the Weekly Team Conference was discussed, and the patient and his spouse verbalize understanding.
--- NOTE | 2019-01-09 15:28 | Speech Therapy Daily Note ---
Speech Daily Progress Note Subjective Date Seen by Provider: Jan 09, 2019 Time Seen by Provider: 00:30 The patient was resting in his bed following OT and PT when I entered his room. Objective The patient completed a series of memory questions related to his daily needs with 75% accuracy given moderate verbal cuing. Assessment Assessment Current Status: Fair Progress Treatment Plan Continue Plan of Care Communication Comprehension: 4 Expression: 5 Social Cognition Social Interaction: 6 Problem Solvin Memory: 4 Speech Short Term Goals Short Term Goals Short Term Goals 1) The patient will complete memory tasks at 90% or greater with minimal cues. 2) The patient will complete problem solving tasks at 90% or greater with minimal cues. 3) The patient will complete safety awareness tasks at 90% or greater with minimal cues. Speech Penitentiary Goals Penitentiary Goals The patient will improve cognitive level of function so that he may return home safely. Speech-Plan Patient/Family Goals Patient/Family Goals: The patient plans on returning home with his post rehab. Treatment Plan Speech Therapy Treatment Plan: Continue Plan of Care The patient participated well with ST this date. Treatment Duration: Jan 19, 2019 Frequency: 5 times per week Estimated Hrs Per Day: .5 hour per day Rehab Potential: Fair Barriers to Learning: Patient has moderate cognitive deficits. Pt/Family Agrees to Plan: Yes Safety Risks/Education Teaching Recipient: Patient Teaching Methods: Discussion Response to Teaching: Verbalize Understanding Education Topics Provided: Safety within his room and communication of his wants/needs. Time Speech Therapy Time In: 11:00 Speech Therapy Time Out: 11:30 Total Billed Time: 30 Billed Treatment Time 1KRISTAN BETH[address] ST Jan 09, 2019 15:28
[2019-01-09 17:16] VITALS: BP 149/56
[2019-01-09] MEDS: MONTELUKAST 10 MG (SINGULAIR) TAB PO SCH (20:21)
[2019-01-10 05:16] VITALS: BP 154/78
[2019-01-10] MEDS: FOLIC ACID 1 MG TAB PO SCH (06:23)
[2019-01-10] MEDS: MULTIVIT W/MINERALS TAB (THERAGRAN M) PO SCH (06:23)
[2019-01-10] MEDS: predniSONE 20 MG TAB PO SCH (06:25)
[2019-01-10 06:45] LABS: HEMOGLOBIN 9.3 G/DL (13.3-17.7); MEAN PLATELET VOLUME 9.9 FL (7.4-10.4)
[2019-01-10 07:00] LABS: CALCIUM 9.1 MG/DL (8.5-10.1); CREATININE SERUM 1.33 MG/DL (0.60-1.30); POTASSIUM 3.9 MMOL/L (3.6-5.0)
[2019-01-10] MEDS: RT-LEVALBUTEROL (XOPENEX) 1.25 MG/3 ML NEB NON-FORMULARY INH SCH ×3 (07:01→19:16)
--- NOTE | 2019-01-10 08:46 | PM&R Progress Note ---
Subjective HPI/CC On Admission Date Seen by Provider: Jan 10, 2019 Time Seen by Provider: 09:00 CC: Debility from alcoholism and altered mental status HPI: This is a 73yoWM who was admitted nearly a week ago of Dr. Macias's who presented with altered mental status found to have significant alcohol withdrawal of which his was unaware that he was drinking alcohol but he was provided supportive care and subsequently has become quite debilitated overall. Smoking cessation has been counseled along with alcohol cessation. He is a retired [employer] for 35 years in [place]. He does report that he is needing to cut down on his alcohol. At this current time pt denies any significant pain, meds were reviewed, and will be continued on inpatient rehab. He has become incontinent and is need of further recovery before DC is planned. HPI per ELMER Martinez Sebastien Toledo is a 73-year-old male with past medical history of hypertension, coronary artery disease, GERD, and ETOH abuse who was recently admitted for AMS; his hospital stay was complicated by alcohol withdrawal. 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 CVA was suspected but ruled out via CT and clinical picture which was more consistent with ETOH withdrawal rather than CT. No MRI was done. Alcohol abuse was managed via activating CIWA protocol, giving thiamine and Folic acid. Pt was recently diagnosed with Paroxysmal Afib and was followed by Cardiology who ordered an Echo and started him on Eliquis. Pt's last stay also involved Macrocytic anemia which required transfusions and continued tx with folic acid. After pt was stabilized he was transitioned to inpatient rehabilitation on 01/08/19. Subjective/Events-last exam Pt bleeding from skin tears Eliquis will be held for two days Aspirin will continue to be held Bleeding a lot otherwise Cardiology consult will be reached out to regarding continued on anticoagulation Dr. Macias will see him for restless leg syndrome that he will manage Conferred with RN. Reviewed therapy notes. Checked meds and labs. Review of Systems General: Fatigue Pulmonary: Cough Musculoskeletal: leg pain Objective Exam Vital Signs Vital Signs Date Time Temp Pulse Resp B/P (MAP) Pulse Ox O2 Delivery O2 Flow Rate FiO2 01/10/19 19:16 93 Room Air 01/10/19 17:20 36.8 72 20 175/81 (112) Capillary Refill : General Appearance: No Apparent Distress, WD/WN, Chronically ill HEENT: PERRL/EOMI, Normal ENT Inspection, Pharynx Normal, Moist Mucous Membrane s Neck: Full Range of Motion, Normal Inspection, Non Tender, Supple Respiratory: Chest Non Tender, Lungs Clear, Normal Breath Sounds, No Accessory Muscle Use, No Respiratory Distress Cardiovascular: Regular Rate, Rhythm, No Edema, No Gallop, No JVD, No Murmur Gastrointestinal: Normal Bowel Sounds, No Organomegaly, No Pulsatile Mass, Non Tender, Soft Back: Normal Inspection, No CVA Tenderness, No Vertebral Tenderness Extremity: Normal Capillary Refill, Normal Inspection, Normal Range of Motion, Non Tender, No Calf Tenderness, No Pedal Edema Neurologic/Psychiatric: Alert, Oriented x3, No Motor/Sensory Deficits, Normal Mood/Affect, Disoriented Skin: Normal Color, Warm/Dry Lymphatic: No Adenopathy Results/Procedures Lab Laboratory Tests 01/10/19 06:30 01/10/19 17:05 Patient resulted labs reviewed. FIM Transfers Therapy Code Descriptions/Definitions Functional [place] Measure: 0=Not Assessed/NA 4=Minimal Assistance 1=Total Assistance 5=Supervision or Setup 2=Maximal Assistance 6=Modified [place] 3=Moderate Assistance 7=Complete [place] Therapy Quality Codes: 6 Independent with activity with or without an assistive device 5 Patient requires set up or clean up by helper. Patient completes activity by themselves 4 Supervision or touching assist (CGA). [place] provide cues , steadying assist 3 The helper provides less than half the effort to complete the activity 2 The helper provides more than half the effort to complete the activity 1 Dependent. The helper does all the effort to complete an activity 7 Patient refused to complete or attempt activity 9 The patient did not perform the activity before the current illness or injury 88 Not attempted due to Medical conditions or safety concerns Transfers (B, C, W/C) (FIM): 5 Scootin Rollin Roll Left to Right (QC): 5 Supine to/from Sit: 5 Sit to/from Stand: 5 Sit to Lying (QC): 5 Sit to Stand (QC): 4 Chair/Bpz-qi-Glnlk Xfer(QC): 4 Bed to/from Chair: 5 Car Transfer (QC): 5 Gait Training Does the Patient Walk?: Yes Gait (FIM): 2 Distance (FIM): 3=150 ft Distance: 100'x2 Walk 10 feet (QC): 4 Walk 50 ft with 2 Turns(QC): 4 Walk 150 ft (QC): 4 Walking 10ft/uneven surface-QC: 4 Gait Level of Assist: 5 Gait Persons Needed: 1 Gait Assistive Device: FWW Stair Training Stairs (FIM): 1 #of Steps: 1 1 Step (curb) (QC): 4 4 Steps (QC): 9 12 Steps (QC): 9 Level of Assist: 4 Mental Status/Objective Comprehension: 4 Expression: 5 Social Interaction: 6 Problem Solvin Memory: 4 ADL-Treatment Feedin (Pt required assist for holding water/ coffee during drinking due to increased ataxia/ shaking. Pt able to open sugar packet after increased breathing exercises. Pt required s/u for help opening milk carton, able to peel open top but unable to complete opening wihtout spillage.) Eating (QC): 5 (s/u) Groomin (CGA at sink for hand hygiene post-toileting) Oral Hygiene (QC): 4 (CGA, pt able to manipulate all items with increased time .) Bathin (Assist with BLE and CGA for standing during hyacinth hygiene) Shower/Bathe Self (QC): 3 Upper Extremity Dressin (s/u) Upper Body Dressing (QC): 5 Lower Extremity Dressin (cues and use of AE (spot cleaner) for LB dressing.) Lower Body Dressing (QC): 4 (cues) On/Off Footwear (QC): 4 (cues required. Pt educated of shoe horn, able to return demonstrate with 1 shoe, required min A due to need for bathroom and increased time required for coordination of task with other foot.) Toiletin (CGA during hyacinth hygiene) Toileting Hygiene (QC): 4 (CGA, min A for wiping thoroughly. Pt able to wipe 3x, required assist.) Toilet/Commode Transfer: 4 (CGA for safety) Toilet Transfer (QC): 4 (CGA) Tub: 4 (CGA to min A during sit to stand from shower [facility] to FWW) Assessment/Plan Assessment and Plan Assess & Plan/Chief Complaint Plan: IRF protocol Supportive care Delirium monitoring ETOH cessation Hold laxatives RLS per PCP consultation (1) Debility Status: Acute (2) Hypokalemia Status: Acute (3) Folate deficiency Status: Acute (4) Pancytopenia Status: Acute (5) Interstitial lung disease Status: Chronic (6) Weight loss, unintentional Status: Chronic (7) CAD (coronary artery disease) Status: Chronic Qualifiers: Coronary Disease-Associated Artery/Lesion type: [place] artery [place] vs. transplanted heart: [place] heart Associated angina: without angina Qualified Codes: I25.10 - Atherosclerotic heart disease of [place] coronary artery without angina pectoris (8) HTN (hypertension) Status: Chronic Qualifiers: Hypertension type: essential hypertension Qualified Codes: I10 - Essential (primary) hypertension (9) Nausea & vomiting Status: Acute Qualifiers: Vomiting type: unspecified (10) Atrial fibrillation with rapid ventricular response Status: Acute (11) Hypomagnesemia Status: Acute (12) Vertebral artery occlusion Status: Chronic Qualifiers: Laterality: unspecified laterality Qualified Codes: I65.09 - Occlusion and stenosis of unspecified vertebral artery (13) Aphasia Status: Acute (14) Altered mental status Status: Resolved Resolution Date/Time: 01/07/19 @ 11:56 (15) Alcohol dependence Status: Resolved Resolution Date/Time: 01/07/19 @ 11:56 Qualifiers: 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
[2019-01-10] MEDS ORDERED: ASPIRIN 81 MG CHEW (CHILDREN'S ASA) PO SCH (09:00)
[2019-01-10] MEDS: LORATADINE (CLARITIN) 10 MG TAB PO SCH (09:01)
[2019-01-10] MEDS: PANTOPRAZOLE 20 MG TABLET (PROTONIX) PO SCH (09:02)
[2019-01-10] MEDS: meTOprolol SUCCINATE 100 MG (TOPROL XL) TAB PO SCH (09:02)
[2019-01-10] MEDS: amLODIPine 5 MG (NORVASC) TAB PO SCH (09:03)
[2019-01-10] MEDS: lisINopril 20 MG (PRINIVIL) TABLET PO SCH (09:09)
[2019-01-10] MEDS: LOSARTAN 100 MG (COZAAR) TABLET PO SCH (09:09)
--- NOTE | 2019-01-10 10:04 | Physical Therapy Daily Note ---
PT Daily Note-Current Subjective Pt. agrees to PT reluctantly. States he has 7-8/10 pain all over and exquisite pain in his left low back. 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 Patient completes activity by themselves 4 Supervision or touching assist (CGA). [place] provide cues , steadying assist 3 The helper provides less than half the effort to complete the activity 2 The helper provides more than half the effort to complete the activity 1 Dependent. The helper does all the effort to complete an activity 7 Patient refused to complete or attempt activity 9 The patient did not perform the activity before the current illness or injury 88 Not attempted due to Medical conditions or safety concerns Transfers (B, C, W/C) (FIM): 5 Scootin Rollin Supine to/from Sit: 5 Sit to/from Stand: 5 Bed to/from Chair: 5 pt. has pain with all movements and needs instruction for all movement for TRFs even rolling as he is not sure where he is in space, fearful of rolling , awkw ariella ataxic movements at times, needs instruction and sometimes repeated Weight Bearing Right Lower Extremity: Right Weight Bearing/Tolerated Left Lower Extremity: Left Weight Bearing/Tolerated Gait Training Does the Patient Walk?: Yes Gait (FIM): 4 Distance (FIM): 3=150 ft (150x2) Gait Level of Assist: 4 Gait Persons Needed: 1 Gait Assistive Device: FWW staggered ataxic movement, stops as if needs rest frequently Exercises Supine Ex: Bridging, Ankle pumps, Pelvic tilt, Rolling, Heel Slides, Short Arc Quads, Scooting, Straight leg raise, Hip abd/add Supine Reps: 15 Seated Therapy Exercises: Ankle pumps, Sit to stand, Long arc quads, Hip abd/add Seated Reps: 15 knee to chest, HS stretches both x 3 with 10 s hold. NuStep Minutes: 10 NuStep Workload: 4 Treatments seated U&L extrem altern exerc x 10m Assessment Current Status: Fair Progress pain c/o all over , wants rest breaks PT Short Term Goals Short Term Goals Transfers (B,C,W/C) (FIM): 5 PT Grain Broker Goals Longterm Goals PT Grain Broker Goals Time Frame: Feb 03, 2019 Transfers (B,C,W/C) (FIM): 6 Sit to Lying (QC): 6 Lying-Sitting on Side/Bed(QC): 6 Sit to Stand (QC): 6 Rollin Roll Left to Right (QC): 6 Chair/Ksz-pw-Lsbzg Xfer(QC): 6 Car Transfer (QC): 6 Does the Patient Walk: Yes Gait (FIM): 6 Gait distance (FIM): 3=150 ft Distance: 250' Walk 10 feet (QC): 6 Walk 10ft-Uneven Surface(QC): 6 Walk 50ft with 2 Turns (QC): 6 Walk 150 ft (QC): 6 Gait Level of Assist: 6 Gait Assistive Device: FWW Stairs (FIM): 2 # of Steps: 4 1 Step (curb) (QC): 6 4 Steps (QC): 6 12 Steps (QC): 9 Stairs Level Of Assist: 6 Picking up an Object (QC): 6 PT Plan Treatment/Plan Treatment Plan: Continue Plan of Care Treatment Plan: Bed Mobility, Education, Functional Activity Jordy, Functional Strength, Group Therapy, Gait, Safety, Therapeutic Exercise, Transfers Treatment Duration: Feb 03, 2019 Frequency: At least 5 of 7 days/Wk (IRF) Estimated Hrs Per Day: 1.5 hours per day Patient and/or Family Agrees t: Yes Safety Risks/Education Patient Education: Gait Training, Transfer Techniques, Correct Positioning, Disease Process, Safety Issues Teaching Recipient: Patient Teaching Methods: Demonstration, Discussion Response to Teaching: Verbalize Understanding, Return Demonstration, Reinforcement Needed Time/GCodes Time In: 900 Time Out: 1000 Total Billed Treatment Time: 60 Total Billed Treatment 1,GT20m,EX30m,FA10m RUDY INIGUEZ PROJECT LEAD Jan 10, 2019 10:04
--- NOTE | 2019-01-10 10:58 | Progress Note - Cardiology ---
Cardiology SOAP Progress Note Subjective: No cp or palp or syncope or shortness of breath Has had bruising and oozing of bood from iv sites and from minor injuries Objective: I&O/Vital Signs 01/10/19 01/10/19 05:16 07:01 Temp 37.4 Pulse 96 Resp 22 B/P (MAP) 154/78 (103) Pulse Ox 93 98 O2 Delivery Room Air Room Air 01/10/19 00:00 Intake Total 750 ml Output Total 200 ml Balance 550 ml Weight (Pounds): 191 Weight (Ounces): 0.0 Weight (Calculated Kilograms): 86.282221 Constitutional: AAO x 3, well-developed, well-nourished Respiratory: No accessory muscle use, No respiratory distress; chest expansion is symmetric, chest is bilaterally symmetric, rhonchi (scattered), other (prolonged expiratory phase) Cardiovascular: regular rate-rhythm; No JVD; S1 and S2, systolic murmur Gastrointestional: No tender; soft, audible bowel sounds Extremities: other (mild bilat LE swelling) Neurologic/Psychiatric: grossly intact Skin: No rash on exposed areas, No ulcerations on exposed areas; other (multiple bruises to arms/legs bilat with abrasions; drsg to left elbow D&I) Results/Procedures: Labs Laboratory Tests 01/10/19 06:30: White Blood Count 12.0H, Red Blood Count 2.73L, Hemoglobin 9.3L, Hematocrit 29L, Mean Corpuscular Volume 105H, Mean Corpuscular Hemoglobin 34, Mean Corpuscular Hemoglobin Concent 32, Red Cell Distribution Width 16.0H, Platelet Count 269, Mean Platelet Volume 9.9, Sodium Level 135, Potassium Level 3.9, Chloride Level 102, Carbon Dioxide Level 23, Anion Gap 10, Blood Urea Nitrogen 15, Creatinine 1.33H, Estimat Glomerular Filtration Rate 53, BUN/Creatinine Ratio 11, Glucose Level 107H, Calcium Level 9.1 Laboratory Tests 01/10/19 06:30 A/P: Assessment: Bruising and oozing of bleed from iv sites and from minor injuries AMS of undetermined etiology, probably related to alcohol withdrawal, managed by the Hospitalist Svce - improved PAF Anemia of undetermined etiology - being managed the Hospitalist/Medical Svce H/o mild to mod pancytopenia being during admission of Dec 23-Dec 4 OAC with Eliquis Upper and lower endoscopy of 12-27-[address] 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 This is of unknown age. There is mild to moderate narrowing of the proximal basilar artery. Per CTA of 01-02-19 Recent weight loss of approx 30 lbs of undetermined etiology CAD - Cardiac cath of 09/19/18 showed patent RCA stents that were place in Apr 2016: Alpine Xience 3.5 x 15 mm prox and Alpine Xience 3.0 x 15 mm distally, pos tdilated with a 3.5 mm balloon, The rest of the vessels have diffuse, mod disease. LVEF 50-55%. Normal LVEDP Echocardiogram of December 24, [address] Jimenez concentric hypertrophy. LVEF 45-50%. Grade 1 diastolic dysfunction. AoV thickening consistent with sclerosis with mild regurg. PASP 15-20mmHg. Severe ostial left renal artery stenosis with subsequent percutaneous transluminal angioplasty and residual minimal stenosis, no dissection or distal embolization by Dr. Keen at [facility] in [place], [place] in the early CT of the chest from August 2016 showed borderline adenopathy in the axillary regions and in the subcarinal space. 7 mm pulmonary nodule in the RUL. This is followed by Dr Toya MENDOZA, treated with CPAP, followed by Dr Pittman Mild carotid arterial disease on Carotid u/s of 09/21/18 PAD - PCI of the right anterior tibial, posterior tibial and peroneal with Medtronic Nitinol 4mm x 20mm stent in the right posterior tibial December 08, [address] Langston in [place], [place]. Peripheral angio of 09/19/18: Infrarenal AAA, mod in size, just above aorto iliac bifurcation; mod diff disease of the sup fems and distal leg circulation on both sides. Patent R post tib stent Hypertension HLP - statin therapy followed by his PCP - currently being withheld d/t recent episode of pancreatitis Emphysema GERD H/o pancreatitis in the past - managed by PCP EKG of 11-03-15 showed LVH with repolarization abnormality and LAFB; not significantly changed on 09/13/18 CKD stage 2-3 H/o heavy ETOH use Tobaccoism - 2 PPD Plan: * Several issues reviewed and discussed today * For leg swelling and h/o chronic, intermittent diastolic CHF, we are adding low dose diuretics and supple K (see orders) * We recommend monitoring of labs * Because of slow oozing from iv sites and sites of minor trauma, it may be reasonable to hold off on Eliquis for 48 hours if there is no suspicion of acute thromboembolic stroke during this hospitalization (to acute care and then to rehab). The nursing staff will check with Dr Groves * Monitor labs DAGO RAPHAEL MD FACP FACC CCDS Jan 10, 2019 10:58
[2019-01-10] MEDS: KCL 10 MEQ TAB (MICRO K) PO SCH (11:15)
[2019-01-10] MEDS: FUROSEMIDE 40 MG (LASIX) TAB PO SCH (11:15)
--- NOTE | 2019-01-10 11:45 | Speech Therapy Daily Note ---
Speech Daily Progress Note Subjective Date Seen by Provider: Jan 10, 2019 Time Seen by Provider: 00:30 Patient was resting in bed while nursing was changing his wound dressing. Objective Patient demo ability to complete memory tasks at 90% with minimal cues. Assessment Assessment Current Status: Good Progress Treatment Plan Continue Plan of Care Communication Comprehension: 4 Expression: 5 Social Cognition Social Interaction: 6 Problem Solvin Memory: 4 Speech Short Term Goals Short Term Goals Short Term Goals 1) The patient will complete memory tasks at 90% or greater with minimal cues. 2) The patient will complete problem solving tasks at 90% or greater with minimal cues. 3) The patient will complete safety awareness tasks at 90% or greater with minimal cues. Speech Group Home Goals Group Home Goals The patient will improve cognitive level of function so that he may return home safely. Speech-Plan Patient/Family Goals Patient/Family Goals: Patient plans on returning home with his post rehab. Treatment Plan Speech Therapy Treatment Plan: Continue Plan of Care Patient is progressing well with skilled ST. Treatment Duration: Jan 19, 2019 Frequency: 5 times per week Estimated Hrs Per Day: .5 hour per day Rehab Potential: Fair Barriers to Learning: Patient has mild cognitive deficits. Pt/Family Agrees to Plan: Yes Safety Risks/Education Teaching Recipient: Patient Teaching Methods: Discussion Response to Teaching: Verbalize Understanding Education Topics Provided: Continued safety within his room. Time Speech Therapy Time In: 11:00 Speech Therapy Time Out: 11:30 Total Billed Time: 30 Billed Treatment Time 1KRISTAN [address] ST Jan 10, 2019 11:45
--- NOTE | 2019-01-10 12:07 | Occupational Ther Daily Note ---
OT Current Status-Daily Note Subjective Pt seen in bed, agreeable to OT tx session, no c/o pain, just weakness on this date. Mental Status/Objective Patient Orientation: Normal For Age Therapy Code Descriptions/Definitions Functional [place] Measure: 0=Not Assessed/NA 4=Minimal Assistance 1=Total Assistance 5=Supervision or Setup 2=Maximal Assistance 6=Modified Baker 3=Moderate Assistance 7=Complete Baker Attachments: IV ADL-Treatment Therapy Code Descriptions/Definitions Functional [place] Measure: 0=Not Assessed/NA 4=Minimal Assistance 1=Total Assistance 5=Supervision or Setup 2=Maximal Assistance 6=Modified [place] 3=Moderate Assistance 7=Complete [place] Therapy Quality Codes: 6 Independent with activity with or without an assistive device 5 Patient requires set up or clean up by helper. Patient completes activity by themselves 4 Supervision or touching assist (CGA). [place] provide cues , steadying assist 3 The helper provides less than half the effort to complete the activity 2 The helper provides more than half the effort to complete the activity 1 Dependent. The helper does all the effort to complete an activity 7 Patient refused to complete or attempt activity 9 The patient did not perform the activity before the current illness or injury 88 Not attempted due to Medical conditions or safety concerns Eating (FIM): 6 (increased time for pt to s/u and manage containers and pack ages) Eating (QC): 6 Bathing (FIM): 5 (SBA for hyacinth hygiene while in standing. Pt states weakness during standing, must sit back down soon after standing. Pt able to lower self controlled with use of grab bars to shower chair.) Shower/Bathe Self (QC): 4 (SBA) Upper Body (FIM): 6 (increased time) Upper Body Dressing (QC): 6 Lower Body Dressing (FIM): 4 (min A with use of AE for lower body dressing due to leg weakness and difficulty raising off floor to clear breif and pant donning.) Lower Body Dressing (QC): 3 On/Off Footwear (QC): 6 (pt completes in shower chair with shoe horn iwht inc reased time) Toileting (FIM): 4 (SBA and CGA within standing during hyacinth hygiene. ) Toileting Hygiene (QC): 4 (CGA/ steady assist) Transfers (B, C, W/C) (FIM): 4 (CGA during sit to stand during toileting and showering due to weakness) Toilet/Commode Transfer (FIM): 4 Toilet Transfer (QC): 4 (CGA) Tub Transfer(FIM): 4 (CGA, cues for walker positioning during shower transfer. pt return demosntrated with accuracy after cues.) Other Treatment Pt desires coffee with sugar packets. Pt demonstrates decreased coordination and strength, requiring increased time for package opening. Pt completed bathing and dressing on this date. Pt's nurse notified of open wounds, pt's nurse assessed prior to and after showering. Pt required increased time for showering and dressing tasks. Pt uses AE with success, few cues needed during LB dressing with AE. Pt returns to bed, bed mobility with SBA due to weakness in LB. Pt left in bed, all needs met and call light in reach. Education OT Patient Education: Correct positioning, Energy conservation, Modified ADL techniques, Purpose of tx/functional activities, Rehab process, Safety issues, Transfer techniques, Use of adapted equipment Teaching Recipient: Patient Teaching Methods: Demonstration, Discussion Response to Teaching: Verbalize Understanding, Return Demonstration OT Short Term Goals Short Term Goals Upper Body Dressing(FIM): 6 (met) Lower Body Dressing(FIM): 3 (met) Transfers (B,C,W/C) (FIM): 5 1=Demonstrate adherence to instructed precautions during ADL tasks. 2=Patient will verbalize/demonstrate understanding of assistive devices/modifications for ADL. 3=Patient will improve strength/tolerance for activity to enable patient to perform ADL's. OT Certified Low Vision Therapist Goals Prison Goals Eating (FIM): 7 Eating (QC): 6 Groomin Oral Hygiene (QC): 6 Bathing(FIM): 6 Shower/Bathe Self (QC): 6 Upper Body Dressing(FIM): 6 Upper Body Dressing (QC): 6 Lower Body Dressing(FIM): 6 Lower Body Dressing (QC): 6 On/Off Footwear (QC): 6 Toileting(FIM): 5 Toileting Hygiene (QC): 6 Transfers (B,C,W/C) (FIM): 6 Toilet/Commode Transfer(FIM): 5 Toilet/Commode Transfer (QC): 4 Tub Transfer(FIM): 5 Shower Transfer(FIM): 5 Additional Goals: 1-Demonstrate ADL Tasks, 2-Verbalize Understanding, 3- ImproveStrength/Jordy 1=Demonstrate adherence to instructed precautions during ADL tasks. 2=Patient will verbalize/demonstrate understanding of assistive devices/modifications for ADL. 3=Patient will improve strength/tolerance for activity to enable patient to perform ADL's. OT Education/Plan Problem List/Assessment Assessment: Decreased Activ Tolerance, Decreased Safety Aware, Decreased UE Strength, Impaired Bed Mobility, Impaired Coordination, Impaired Funct Balance, Impaired I ADL's, Impaired Self-Care Skills Discharge Recommendations Plan/Recommendations: Continue POC Equpiment Recommendations-D/C: Steven Suazo Treatment Plan/Plan of Care Treatment,Training & Education: Yes Patient would benefit from OT for education, treatment and training to promote independence in ADL's, mobility, safety and/or upper extremity function for ADL's. Plan of Care: ADL Retraining, Caregiver Training, Cognitive Retraining, Functional Mobility, Group Exercise/Act as Ind, UE Funct Exercise/Act, UE Neuromus Re-Ed/Coord Treatment Duration: Jan 09, 2019 Frequency: 5 times per week Estimated Hrs Per Day: 1 hour per day (1-1.5 hours per day) Agreement: Yes Rehab Potential: Fair Time/GCodes Start Time: 10:00 Stop Time: 10:58 Total Time Billed (hr/min): 58 Billed Treatment Time 1 ADL 3, FA 1 (58) JOANA MENDOZA OTR Jan 10, 2019 12:07
--- NOTE | 2019-01-10 12:17 | Occupational Ther Daily Note ---
OT Current Status-Daily Note Subjective Pt seen in bed, speech pathologist present. Pt agreeable to OT tx session, no pain noted. Mental Status/Objective Patient Orientation: Normal For Age Therapy Code Descriptions/Definitions Functional [place] Measure: 0=Not Assessed/NA 4=Minimal Assistance 1=Total Assistance 5=Supervision or Setup 2=Maximal Assistance 6=Modified [place] 3=Moderate Assistance 7=Complete [place] ADL-Treatment Therapy Code Descriptions/Definitions Functional [place] Measure: 0=Not Assessed/NA 4=Minimal Assistance 1=Total Assistance 5=Supervision or Setup 2=Maximal Assistance 6=Modified [place] 3=Moderate Assistance 7=Complete [place] Therapy Quality Codes: 6 Independent with activity with or without an assistive device 5 Patient requires set up or clean up by helper. Patient completes activity by themselves 4 Supervision or touching assist (CGA). [place] provide cues , steadying assist 3 The helper provides less than half the effort to complete the activity 2 The helper provides more than half the effort to complete the activity 1 Dependent. The helper does all the effort to complete an activity 7 Patient refused to complete or attempt activity 9 The patient did not perform the activity before the current illness or injury 88 Not attempted due to Medical conditions or safety concerns Eating (FIM): 6 (increased time) On/Off Footwear (QC): 6 (increased time with shoe horn) Transfers (B, C, W/C) (FIM): 4 (CGA for bed mobility due to weaknessupon return, pt completes with SBA.) Other Treatment Pt completes bed mobility with CGA as he states much weakness. Pt completes shoe donning with mod I, use of shoe horn. Pt ambulates with FWW to laundry room, requires cues for FWW safety at washer. Pt able to sequence tasks with accuracy. Pt unable to pull nozzle on washer due to diminished finger/ principal systems engineer strength. Pt returns with 1 break to rest back to room. Pt returns to bed with increased time and SBA. Pt educated on hand sponge and skilled demonstrations of individual finger strengthening exercises. Pt verbalizes understanding. Pt left in room with all needs met and call light in reach. Education OT Patient Education: Correct positioning, Energy conservation, Exercise program, Home exercise program, Modified ADL techniques, Purpose of tx/functional activities, Transfer techniques, Use of adapted equipment Teaching Recipient: Patient Teaching Methods: Demonstration, Discussion Response to Teaching: Verbalize Understanding, Return Demonstration OT Short Term Goals Short Term Goals Upper Body Dressing(FIM): 6 (met) Lower Body Dressing(FIM): 3 (met) Transfers (B,C,W/C) (FIM): 5 1=Demonstrate adherence to instructed precautions during ADL tasks. 2=Patient will verbalize/demonstrate understanding of assistive devices/modifications for ADL. 3=Patient will improve strength/tolerance for activity to enable patient to perform ADL's. OT Alf Goals Design Manager Goals Eating (FIM): 7 Eating (QC): 6 Groomin Oral Hygiene (QC): 6 Bathing(FIM): 6 Shower/Bathe Self (QC): 6 Upper Body Dressing(FIM): 6 Upper Body Dressing (QC): 6 Lower Body Dressing(FIM): 6 Lower Body Dressing (QC): 6 On/Off Footwear (QC): 6 Toileting(FIM): 5 Toileting Hygiene (QC): 6 Transfers (B,C,W/C) (FIM): 6 Toilet/Commode Transfer(FIM): 5 Toilet/Commode Transfer (QC): 4 Tub Transfer(FIM): 5 Shower Transfer(FIM): 5 Additional Goals: 1-Demonstrate ADL Tasks, 2-Verbalize Understanding, 3-ImproveStrength/Jordy 1=Demonstrate adherence to instructed precautions during ADL tasks. 2=Patient will verbalize/demonstrate understanding of assistive devices/modifications for ADL. 3=Patient will improve strength/tolerance for activity to enable patient to perform ADL's. OT Education/Plan Problem List/Assessment Assessment: Decreased Activ Tolerance, Decreased Safety Aware, Decreased UE Strength, Impaired Bed Mobility, Impaired Coordination, Impaired Funct Balance, Impaired I ADL's, Impaired Self-Care Skills Discharge Recommendations Plan/Recommendations: Continue POC Equpiment Recommendations-D/C: Rails on Tub/Shower, Cloth Washer Operator, Rails on Toilet Treatment Plan/Plan of Care Treatment,Training & Education: Yes Patient would benefit from OT for education, treatment and training to promote independence in ADL's, mobility, safety and/or upper extremity function for ADL's. Plan of Care: ADL Retraining, Caregiver Training, Cognitive Retraining, Functional Mobility, Group Exercise/Act as Ind, UE Funct Exercise/Act, UE Neuromus Re-Ed/Coord Treatment Duration: Jan 09, 2019 Frequency: 5 times per week Estimated Hrs Per Day: 1 hour per day (1-1.5 hours per day) Agreement: Yes Rehab Potential: Fair Time/GCodes Start Time: 11:30 Stop Time: 11:55 Total Time Billed (hr/min): 25 Billed Treatment Time 1 ADL (10), FA (15) =25 JOANA MENDOZA OTR Jan 10, 2019 12:17
--- NOTE | 2019-01-10 13:41 | Physical Therapy Daily Note ---
PT Daily Note-Current Subjective Pt. reluctantly agrees to Rx. States he has fallen out of his truck several times and his friends had to help him get up Pain Numeric Pain Scale: 7 Location: Right Location Body Site: Hip Pain Description: Ache Comment: c/o all over pain Mental Status Patient Orientation: Person, Place, Time, Situation Transfers Therapy Code Descriptions/Definitions Functional [place] Measure: 0=Not Assessed/NA 4=Minimal Assistance 1=Total Assistance 5=Supervision or Setup 2=Maximal Assistance 6=Modified [place] 3=Moderate Assistance 7=Complete [place] Therapy Quality Codes: 6 Independent with activity with or without an assistive device 5 Patient requires set up or clean up by helper. Patient completes activity by themselves 4 Supervision or touching assist (CGA). [place] provide cues , steadying assist 3 The helper provides less than half the effort to complete the activity 2 The helper provides more than half the effort to complete the activity 1 Dependent. The helper does all the effort to complete an activity 7 Patient refused to complete or attempt activity 9 The patient did not perform the activity before the current illness or injury 88 Not attempted due to Medical conditions or safety concerns all sit to stand and sup to sit CGA to SBA with pt. appearing to exert much effort Weight Bearing Right Lower Extremity: Right Weight Bearing/Tolerated Left Lower Extremity: Left Weight Bearing/Tolerated Gait Training Does the Patient Walk?: Yes Gait Assistive Device: FWW 175ft, 50 ft with CGA and uneven step length and awkward pattern, gait appears laborious with pt. stopping , taking deep sigh, holds breath and stands still very frequently Exercises Seated Therapy Exercises: Ankle pumps, Sit to stand, Long arc quads Seated Reps: 10 Treatments toileted with min assist clothing Assessment Current Status: Good Progress PT Short Term Goals Short Term Goals Transfers (B,C,W/C) (FIM): 5 PT Order Entry Administrator Goals Order Entry Administrator Goals PT Snf Goals Time Frame: Feb 03, 2019 Transfers (B,C,W/C) (FIM): 6 Sit to Lying (QC): 6 Lying-Sitting on Side/Bed(QC): 6 Sit to Stand (QC): 6 Rollin Roll Left to Right (QC): 6 Chair/Uel-rf-Zhnnm Xfer(QC): 6 Car Transfer (QC): 6 Does the Patient Walk: Yes Gait (FIM): 6 Gait distance (FIM): 3=150 ft Distance: 250' Walk 10 feet (QC): 6 Walk 10ft-Uneven Surface(QC): 6 Walk 50ft with 2 Turns (QC): 6 Walk 150 ft (QC): 6 Gait Level of Assist: 6 Gait Assistive Device: FWW Stairs (FIM): 2 # of Steps: 4 1 Step (curb) (QC): 6 4 Steps (QC): 6 12 Steps (QC): 9 Stairs Level Of Assist: 6 Picking up an Object (QC): 6 PT Plan Treatment/Plan Treatment Plan: Continue Plan of Care Treatment Plan: Bed Mobility, Education, Functional Activity Jordy, Functional Strength, Group Therapy, Gait, Safety, Therapeutic Exercise, Transfers Treatment Duration: Feb 03, 2019 Frequency: At least 5 of 7 days/Wk (IRF) Estimated Hrs Per Day: 1.5 hours per day Patient and/or Family Agrees t: Yes Safety Risks/Education Patient Education: Gait Training, Transfer Techniques, Correct Positioning, Disease Process, Safety Issues Teaching Recipient: Patient Teaching Methods: Demonstration, Discussion Response to Teaching: Verbalize Understanding, Return Demonstration, Reinforcement Needed Time/GCodes Time In: 1250 Time Out: 1305 Total Billed Treatment Time: 15 Total Billed Treatment 1,GT15m RUDY INIGUEZ PILLOWCASE CUTTER Jan 10, 2019 13:41
[2019-01-10 14:06] VITALS: BP 151/67
--- NOTE | 2019-01-10 14:32 | NUR ---
Weekly team conference Reviewed weekly team conference with patient. Team recommends rechecking progress next Tuesday. This was discussed with the patient and he is in agreement. He states he does not want to go home too soon and feels like he still has work to do. Continue plan of care and monitor progress.
--- NOTE | 2019-01-10 16:40 | Consultation - Hospitalist ---
HPI History of Present Illness: HPI/Chief Complaint CC: Debility from alcoholism and altered mental status HPI: This is a 73yoWM who was admitted nearly a week ago of Dr. Macias's who presented with altered mental status found to have significant alcohol wi thdrawal of which his was unaware that he was drinking alcohol but he was provided supportive care and subsequently has become quite debilitated overall. Smoking cessation has been counseled along with alcohol cessation. He is a retired [employer] for 35 years in [place]. He does report that he is needing to cut down on his alcohol. At this current time pt denies any significant pain, meds were reviewed, and will be continued on inpatient rehab. He has become incontinent and is need of further recovery before DC is planned. HPI per ELMER Martinez Sebastien Toledo is a 73-year-old male with past medical history of hypertension, coronary artery disease, GERD, and ETOH abuse who was recently admitted for AMS; his hospital stay was complicated by alcohol withdrawal. 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 CVA was suspected but ruled out via CT and clinical picture which was more consistent with ETOH withdrawal rather than CT. No MRI was done. Alcohol abuse was managed via activating CIWA protocol, giving thiamine and Folic acid. Pt was recently diagnosed with Paroxysmal Afib and was followed by Cardiology who ordered an Echo and started him on Eliquis. Pt's last stay also involved Macrocytic anemia which required transfusions and continued tx with folic acid. After pt was stabilized he was transitioned to inpatient rehabilitation on 01/08/19. I was consult for evaluation of restless leg symptoms. Patient reports last couple of evenings beginning shortly after getting into bed he will develop uncomfortable sensation in his legs that is only alleviated by moving them. He's had this in the past and I have not prescribed medication for him but his had either Mirapex her ropinirole he has taken her medication with release of his symptoms. He does have anemia with a low folate level that is macrocytic that with a history of esophagitis poor nutritional status from alcoholism iron deficiency is highly likely as well. He denies melena or bright red blood per rectum and denies abdominal pain. He is back to baseline mental status after being admitted with altered mental status and delirium. This is likely due to alcohol withdrawal. Date Seen 01/10/19 Attending Physician Citlali Groves DO PCP Elmer Macias MD Referring Physician Date of Admission Jan 08, 2019 at 11:41 Home Medications & Allergies Home Medications Reviewed patient Home Medication Reconciliation performed by pharmacy medication reconciliations driver service technician and/or nursing. Patients Allergies have been reviewed. Allergies Allergies Coded Allergies Sulfa (Sulfonamide Antibiotics) (Verified Allergy, Unknown, 05/18/16) meperidine (Verified Allergy, Unknown, PATIENT TOLERATES FENTANYL, 01/08/19) Past Heajwdf-Prggda-Fxlimn Hx Past Med/Social Hx: Reviewed Nursing Past Med/Soc Hx, Reviewed and Corrections made Patient Social History Marrital Status: Employed/Student: retired ([employer] for 35 yrs [place], [place]) Alcohol Use: Regular Use Number of Drinks Today: 3 Alcohol Beverage of Choice: Guy Recreational Drug Use: No Smoking Status: Current Everyday Smoker Type Used: Cigarettes 2nd Hand Smoke Exposure: Yes Physical Abuse Screen: No Sexual Abuse: No Recent Foreign Travel: No Contact w/other who traveled: No Recent Hopitalizations: Yes Recent Infectious Disease Expo: No Immunizations Up To Date Tetanus Booster (TDap): Unknown Date of Pneumonia Vaccine: Apr 25, 2015 Date of Influenza Vaccine: Jan 23, 2018 Seasonal Allergies Seasonal Allergies: Yes Past Medical History Surgeries: Coronary Stent, Gallbladder, Joint Replacement Currently Using CPAP: Yes Currently Using BIPAP: No Cardiac: Atrial Fibrillation, Coronary Artery Disease, Hypertension Sexually Transmitted Disease: No HIV/AIDS: No Genitourinary: Kidney Stones Gastrointestinal: Gastroesophageal Reflux, Pancreatitis Musculoskeletal: Arthritis Cancer: Skin What Type of Treatment Did You: Surgical Intervention History of Blood Disorders: No Adverse Reaction to Blood [place]: No Family History Patient reports no known family medical history. Cancer Review of Systems Constitutional: see HPI Physical Exam Physical Exam Vital Signs Vital Signs - First Documented 01/08/19 11:40 Temp 36.0 Pulse 77 Resp 22 B/P (MAP) 169/92 Pulse Ox 99 O2 Delivery Room Air Capillary Refill : Height, Weight, BMI Height: 5'11.00" Weight: 191lbs. 0.0oz. [id number]; 25.55 BMI Method:Stated General Appearance: No Apparent Distress, WD/WN, Chronically ill HEENT: PERRL/EOMI, Normal ENT Inspection, Pharynx Normal, Moist Mucous Membranes Neck: Full Range of Motion, Normal Inspection, Non Tender, Supple Respiratory: Chest Non Tender, Lungs Clear, Normal Breath Sounds, No Accessory Muscle Use, No Respiratory Distress Cardiovascular: Regular Rate, Rhythm, No Edema, No Gallop, No JVD, No Murmur Gastrointestinal: Normal Bowel Sounds, No Organomegaly, No Pulsatile Mass, Non Tender, Soft Back: Normal Inspection, No CVA Tenderness, No Vertebral Tenderness Extremity: Normal Capillary Refill, Normal Inspection, Normal Range of Motion, Non Tender, No Calf Tenderness, No Pedal Edema Neurologic/Psychiatric: Alert, Oriented x3, No Motor/Sensory Deficits, Normal Mood/Affect, Disoriented Skin: Normal Color, Warm/Dry Lymphatic: No Adenopathy Results Results/Procedures Labs Laboratory Tests 01/10/19 17:05 01/11/19 05:15 01/12/19 05:10 Patient resulted labs reviewed. Assessment/Plan Assessment and Plan Assess & Plan/Chief Complaint 1. Restless legs syndrome likely aggravated by iron deficiency anemia. I will order anemia analyzer we'll give 1 mg of ropinirole at at bedtime tonight and plan iron and dextran infusion 1 g in the morning after a test dose. We'll follow-up on Tuesday. Clinical Quality Measures DVT/VTE Risk/Contraindication: Risk Factor Score Per Nursin RFS Level Per Nursing on Admit: 4+=Very High ELMER MACIAS MD Jan 10, 2019 16:40
[2019-01-10] MEDS ORDERED: NS IV 500 ML 500 ML IV SCH (16:52)
[2019-01-10] MEDS ORDERED: HYDROCORTISONE 100 MG/2 ML (Solu-CORTEF) VIAL IV PRN (17:00)
[2019-01-10] MEDS ORDERED: EPINEPHrine INJECTION 1 MG/ML AMP IM PRN (17:00)
[2019-01-10] MEDS ORDERED: IRON DEXTRAN INJECTION 25 MG in NS (IVPB) 5.75 ML IV ONE (17:00)
[2019-01-10] MEDS ORDERED: diphenhydrAMINE 50 MG/ML INJ (BENADRYL) IV PRN (17:00)
[2019-01-10] MEDS ORDERED: RT-ALBUTEROL SULF 2.5 MG/3 ML PRE-MIX VIAL IH PRN (17:00)
[2019-01-10 17:17] LABS: ABSOLUTE RETIC # 84 10e9/L (24-90); BASOPHILS % (AUTO) 0 % (0-10); EOSINOPHILS % (AUTO) 0 % (0-10); HEMATOCRIT 30 % (40-54); HEMOGLOBIN 9.9 G/DL (13.3-17.7); LYMPHOCYTES # (AUTO) 0.9 X 10^3 (1.0-4.0); LYMPHOCYTES % (AUTO) 8 % (12-44); MEAN CORPUSCULAR HEMOGLOBIN 35 PG (25-34); MEAN CORPUSCULAR HGB CONC 33 G/DL (32-36); MEAN CORPUSCULAR VOLUME 105 FL (80-99); MEAN PLATELET VOLUME 10.2 FL (7.4-10.4); MONOCYTES % (AUTO) 9 % (0-12); NEUTROPHILS # (AUTO) 9.4 X 10^3 (1.8-7.8); NEUTROPHILS % (AUTO) 84 % (42-75); PLATELET COUNT 260 10^3/uL (130-400); RED CELL DISTRIBUTION WIDTH 15.5 % (10.0-14.5); RETICULOCYTE % 2.97 % (0.50-2.40); WHITE BLOOD COUNT 11.2 10^3/uL (4.3-11.0)
[2019-01-10 17:20] VITALS: BP 175/81
[2019-01-10] MEDS ORDERED: IRON DEXTRAN INJECTION 1,000 MG in NS (IVPB) 250 ML IV ONE (17:30)
[2019-01-10] MEDS: hydrALAZINE (APRESOLINE) 25 MG TAB PO PRN (17:58)
[2019-01-10 18:03] LABS: LYMPHOCYTES % (MANUAL) 8 %; MONOCYTES % (MANUAL) 6 %; NEUTROPHILS % (MANUAL) 86 %
[2019-01-10 18:04] LABS: ANISOCYTOSIS SLIGHT; HYPOCHROMASIA MODERATE
--- NOTE | 2019-01-10 18:20 | Wound Care Assessment ---
Wound Care Assessment Date Seen by Provider: Jan 10, 2019 Time Seen by Provider: 17:20 Chief Complaint Multiple skin tears. HPI The patient is a 73 year old male with very fragile skin and multiple skin sears. Just gently removing a bandaid caused a new injury during the exam. will avoid all tape and use Xeroform dressings. Will follow. has history of alcohol abuse and severe peripheral neuropathy. Smoking Status: Current Everyday Smoker Recreational Drug Use: No Alcohol Use: Regular Use Review of Systems Pulmonary: No Dyspnea Gastrointestinal: No: Nausea Exam Vital Signs Date Time Temp Pulse Resp B/P (MAP) Pulse Ox O2 Delivery O2 Flow Rate FiO2 01/10/19 17:20 36.8 72 20 175/81 (112) 97 Room Air Capillary Refill : Extremities: other (Multiple superficial skin tears and abrasions, principally on L arm.) Results Laboratory Tests 01/10/19 06:30: White Blood Count 12.0H, Red Blood Count 2.73L, Hemoglobin 9.3L, Hematocrit 29L, Mean Corpuscular Volume 105H, Mean Corpuscular Hemoglobin 34, Mean Corpuscular Hemoglobin Concent 32, Red Cell Distribution Width 16.0H, Platelet Count 269, Mean Platelet Volume 9.9, Sodium Level 135, Potassium Level 3.9, Chloride Level 102, Carbon Dioxide Level 23, Anion Gap 10, Blood Urea Nitrogen 15, Creatinine 1.33H, Estimat Glomerular Filtration Rate 53, BUN/Creatinine Ratio 11, Glucose Level 107H, Calcium Level 9.1 01/10/19 17:05: White Blood Count 11.2H, Red Blood Count 2.83L, Hemoglobin 9.9L, Hematocrit 30L, Mean Corpuscular Volume 105H, Mean Corpuscular Hemoglobin 35H, Mean Corpuscular Hemoglobin Concent 33, Red Cell Distribution Width 15.5H, Platelet Count 260, Mean Platelet Volume 10.2, Neutrophils (%) (Auto) 84H, Lymphocytes (%) (Auto) 8L , Monocytes (%) (Auto) 9, Eosinophils (%) (Auto) 0, Basophils (%) (Auto) 0, Neutrophils # (Auto) 9.4H, Lymphocytes # (Auto) 0.9L, Monocytes # (Auto) 1.0, Eosinophils # (Auto) 0.0, Basophils # (Auto) 0.0, Neutrophils % (Manual) 86, Lymphocytes % (Manual) 8, Monocytes % (Manual) 6, Hypochromasia MODERATE, Anisocytosis SLIGHT, Absolute Reticulocyte Count 84, Percent Reticulocyte Count 2.97H Assessment/Plan/Dx 1. Fragile skin. 2. Multiple skin tears. 3. Chronic alcohol abuse. Plan: avoidance of all further tape, Xeroform dressings. RAYMOND LAKE MD Jan 10, 2019 18:20
[2019-01-10] MEDS: RT-BUDESONIDE NEBS 0.5 MG/2ML (PULMICORT) AMP INH SCH (19:16)
[2019-01-10] MEDS: MONTELUKAST 10 MG (SINGULAIR) TAB PO SCH (20:13)
[2019-01-10] MEDS ORDERED: rOPINIRole 0.25 MG (REQUIP) TAB PO NR (21:00)
[2019-01-11 05:20] VITALS: BP 164/72
[2019-01-11 05:20] LABS: HEMOGLOBIN 9.7 G/DL (13.3-17.7); MEAN PLATELET VOLUME 10.1 FL (7.4-10.4); RED CELL DISTRIBUTION WIDTH 15.4 % (10.0-14.5); WHITE BLOOD COUNT 12.7 10^3/uL (4.3-11.0)
[2019-01-11 05:45] LABS: CALCIUM 6.7 MG/DL (8.5-10.1); CREATININE SERUM 1.29 MG/DL (0.60-1.30); MAGNESIUM 1.8 MG/DL (1.6-2.4); POTASSIUM 3.9 MMOL/L (3.6-5.0)
[2019-01-11] MEDS: predniSONE 20 MG TAB PO SCH (06:07)
[2019-01-11] MEDS: FOLIC ACID 1 MG TAB PO SCH (06:07)
[2019-01-11] MEDS: MULTIVIT W/MINERALS TAB (THERAGRAN M) PO SCH (06:07)
[2019-01-11] MEDS: RT-LEVALBUTEROL (XOPENEX) 1.25 MG/3 ML NEB NON-FORMULARY INH SCH ×3 (07:45→20:00)
[2019-01-11] MEDS: RT-BUDESONIDE NEBS 0.5 MG/2ML (PULMICORT) AMP INH SCH ×2 (07:45→20:00)
[2019-01-11] MEDS ORDERED: IRON DEXTRAN 100 MG/2 ML IM ONE (09:00)
[2019-01-11] MEDS: lisINopril 20 MG (PRINIVIL) TABLET PO SCH (09:11)
[2019-01-11] MEDS: PANTOPRAZOLE 20 MG TABLET (PROTONIX) PO SCH (09:11)
[2019-01-11] MEDS: LORATADINE (CLARITIN) 10 MG TAB PO SCH (09:11)
[2019-01-11] MEDS: LOSARTAN 100 MG (COZAAR) TABLET PO SCH (09:11)
[2019-01-11] MEDS: amLODIPine 5 MG (NORVASC) TAB PO SCH (09:12)
[2019-01-11] MEDS: meTOprolol SUCCINATE 100 MG (TOPROL XL) TAB PO SCH ×2 (09:12→20:24)
--- NOTE | 2019-01-11 09:28 | Progress Note - Cardiology ---
Cardiology SOAP Progress Note Subjective: Sitting up on the edge of the bed. States he feels "anxious" this morning. Spouse at the bedside. No c/o CP or palpitations. Continues to c/o POLANCO. Objective: I&O/Vital Signs 01/11/19 01/11/19 01/11/19 01/11/19 05:20 07:45 07:56 10:30 Temp 37.2 Pulse 89 Resp 22 B/P (MAP) 164/72 (102) Pulse Ox 92 90 94 O2 Delivery Room Air Room Air Room Air Room Air 01/11/19 00:00 Intake Total 936.25 ml Output Total 375 ml Balance 561.25 ml Weight (Pounds): 191 Weight (Ounces): 0.0 Weight (Calculated Kilograms): 86.750024 Constitutional: AAO x 3, well-developed, well-nourished Respiratory: No accessory muscle use, No respiratory distress; chest expansion is symmetric, chest is bilaterally symmetric, rhonchi (scattered), other (prolonged expiratory phase) Cardiovascular: regular rate-rhythm; No JVD; S1 and S2, systolic murmur Gastrointestional: No tender; soft, audible bowel sounds Extremities: other (mild bilat LE swelling) Neurologic/Psychiatric: grossly intact Skin: No rash on exposed areas, No ulcerations on exposed areas; other (multiple bruises to arms/legs bilat with abrasions; drsg to left elbow D&I) Results/Procedures: Labs Laboratory Tests 01/10/19 17:05: White Blood Count 11.2H, Red Blood Count 2.83L, Hemoglobin 9.9L, Hematocrit 30L, Mean Corpuscular Volume 105H, Mean Corpuscular Hemoglobin 35H, Mean Corpuscular Hemoglobin Concent 33, Red Cell Distribution Width 15.5H, Platelet Count 260, Mean Platelet Volume 10.2, Neutrophils (%) (Auto) 84H, Lymphocytes (%) (Auto) 8L , Monocytes (%) (Auto) 9, Eosinophils (%) (Auto) 0, Basophils (%) (Auto) 0, Neutrophils # (Auto) 9.4H, Lymphocytes # (Auto) 0.9L, Monocytes # (Auto) 1.0, Eosinophils # (Auto) 0.0, Basophils # (Auto) 0.0, Neutrophils % (Manual) 86, Lymphocytes % (Manual) 8, Monocytes % (Manual) 6, Hypochromasia MODERATE, Anisocytosis SLIGHT, Absolute Reticulocyte Count 84, Percent Reticulocyte Count 2.97H 01/11/19 05:15: White Blood Count 12.7H, Red Blood Count 2.79L, Hemoglobin 9.7L, Hematocrit 29L, Mean Corpuscular Volume 105H, Mean Corpuscular Hemoglobin 35H, Mean Corpuscular Hemoglobin Concent 33, Red Cell Distribution Width 15.4H, Platelet Count 238, Mean Platelet Volume 10.1, Sodium Level 138, Potassium Level 3.9, Chloride Level 102, Carbon Dioxide Level 23, Anion Gap 13, Blood Urea Nitrogen 14, Creatinine 1.29, Estimat Glomerular Filtration Rate 55, BUN/Creatinine Ratio 11, Glucose Level 114H, Calcium Level 6.7L, Magnesium Level 1.8 Laboratory Tests 01/10/19 06:30 01/10/19 17:05 01/11/19 05:15 A/P: Assessment: Bruising and oozing of bleed from iv sites and from minor injuries AMS of undetermined etiology, probably related to alcohol withdrawal, managed by the Hospitalist Svce - improved PAF Anemia of undetermined etiology - being managed the Hospitalist/Medical Svce H/o mild to mod pancytopenia being during admission of Dec 23-Dec 4 OAC with Eliquis Upper and lower endoscopy of 12-27-[address] 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 This is of unknown age. There is mild to moderate narrowing of the proximal basilar artery. Per CTA of 01-02-19 Recent weight loss of approx 30 lbs of undetermined etiology CAD - Cardiac cath of 09/19/18 showed patent RCA stents that were place in Apr 2016: Alpine Xience 3.5 x 15 mm prox and Alpine Xience 3.0 x 15 mm distally, postdilated with a 3.5 mm balloon, The rest of the vessels have diffuse, mod disease. LVEF 50-55%. Normal LVEDP Echocardiogram of December 24, [address] Jimenez concentric hypertrophy. LVEF 45-50%. Grade 1 diastolic dysfunction. AoV thickening consistent with sclerosis with mild regurg. PASP 15-20mmHg. Severe ostial left renal artery stenosis with subsequent percutaneous transluminal angioplasty and residual minimal stenosis, no dissection or distal embolization by Dr. Keen at [facility] in [place], [place] in the early CT of the chest from August 2016 showed borderline adenopathy in the axillary regions and in the subcarinal space. 7 mm pulmonary nodule in the RUL. This is followed by Dr Toya MENDOZA, treated with CPAP, followed by Dr Pittman Mild carotid arterial disease on carotid u/s of 09/21/18 PAD - PCI of the right anterior tibial, posterior tibial and peroneal with Medtronic Nitinol 4mm x 20mm stent in the right posterior tibial December 08, [address] Langston in [place], [place]. Peripheral angio of 09/19/18: Infrarenal AAA, mod in size, just above aorto iliac bifurcation; mod diff disease of the sup fems and distal leg circulation on both sides. Patent R post tib stent Hypertension HLP - statin therapy followed by his PCP - currently being withheld d/t recent episode of pancreatitis Emphysema GERD H/o pancreatitis in the past - managed by PCP EKG of 11-03-15 showed LVH with repolarization abnormality and LAFB; not significantly changed on 09/13/18 CKD stage 2-3 H/o heavy ETOH use Tobaccoism - 2 PPD Plan: * Several issues reviewed and discussed today * For leg swelling and h/o chronic, intermittent diastolic CHF, we are adding low dose diuretics and supple K (see orders) * We recommend monitoring of labs * Because of slow oozing from iv sites and sites of minor trauma, it may be gisela sonable to hold off on Eliquis for 48 hours if there is no suspicion of acute thromboembolic stroke during this hospitalization (to acute care and then to rehab). * BP not well controlled, increase BB * Management of anxiety per medical service Physician Assessment Physician Assessment Chronic shortness of breath Still oozing from iv sites and minor trauma sites No cp or palp or syncope Gen malaise and tiredness Lungs: diminished air entry at the bases, terell on R base Cor: reg, soft YOSELIN Ext: no c/c/e A&R: * As documented in our note above that I updated (italics) and as noted below * Apixaban being held temporarily due to oozing (see above). We recommend that this be resumed soon * We recommend resumption of low dose ASA, given pt's h/o CAD * I discussed his CV issues with him and his this am * Monitor labs BARNEY KINSEY [facility] & PRESIDENT Jan 11, 2019 09:28 DAGO RAPHAEL MD FACP FAC CCDS Jan 11, 2019 12:39
[2019-01-11] MEDS ORDERED: IRON DEXTRAN 100 MG/2 ML IV SCH (09:30)
--- NOTE | 2019-01-11 09:30 | NUR ---
Discussed weekly team conference with patient's today, with patient's permission, as she was not available yesterday. Team recommendation is to recheck patient's progress next Tuesday. Patient's agrees with this and has no further questions at this time.
--- NOTE | 2019-01-11 09:56 | Physical Therapy Daily Note ---
PT Daily Note-Current Subjective Patient sitting EOB pre tx, agrees to PT with encouragement. Patient has 4/10 pain in low back. Patient is very anxious and gets meds for that during treatment. He says he has been having trouble breathing. Patient's O2 is 94%, HR is 100bpm, and BP is 130/74 Appearance Patient in bed post tx with nurse call, phone, tray, all needs met. in room. Mental Status Patient Orientation: Normal For Age Transfers Therapy Code Descriptions/Definitions Functional [place] Measure: 0=Not Assessed/NA 4=Minimal Assistance 1=Total Assistance 5=Supervision or Setup 2=Maximal Assistance 6=Modified [place] 3=Moderate Assistance 7=Complete [place] Therapy Quality Codes: 6 Independent with activity with or without an assistive device 5 Patient requires set up or clean up by helper. Patient completes activity by themselves 4 Supervision or touching assist (CGA). [place] provide cues , steadying assist 3 The helper provides less than half the effort to complete the activity 2 The helper provides more than half the effort to complete the activity 1 Dependent. The helper does all the effort to complete an activity 7 Patient refused to complete or attempt activity 9 The patient did not perform the activity before the current illness or injury 88 Not attempted due to Medical conditions or safety concerns Transfers (B, C, W/C) (FIM): 4 Supine to/from Sit: 4 Sit to/from Stand: 4 Bed to/from Chair: 4 Min assist for sit to stand and sit to supine, CGA for transfers. Patient is very shaky. He performs all mobility much slower than normal with many rest breaks. Weight Bearing Right Lower Extremity: Right Weight Bearing/Tolerated Left Lower Extremity: Left Weight Bearing/Tolerated Gait Training Gait (FIM): 2 Distance: 100'x2 Gait Level of Assist: 4 Gait Persons Needed: 1 Gait Assistive Device: FWW Very slow ambulation, will take a couple of steps and then have a standing rest break. A lot more time required for ambulation. Exercises LAQ alternating for 5 min NuStep Minutes: 15 NuStep Workload: 5 Treatments bed mobility and transfers, ambulation, LE exercise Assessment Current Status: Poor Progress much slower and more difficulty with all mobility, very anxious. PT Short Term Goals Short Term Goals Transfers (B,C,W/C) (FIM): 5 PT Penitentiary Goals Penitentiary Goals PT Children'S Aide Goals Time Frame: Feb 03, 2019 Transfers (B,C,W/C) (FIM): 6 Sit to Lying (QC): 6 Lying-Sitting on Side/Bed(QC): 6 Sit to Stand (QC): 6 Rollin Roll Left to Right (QC): 6 Chair/[id number] Xfer(QC): 6 Car Transfer (QC): 6 Does the Patient Walk: Yes Gait (FIM): 6 Gait distance (FIM): 3=150 ft Distance: 250' Walk 10 feet (QC): 6 Walk 10ft-Uneven Surface(QC): 6 Walk 50ft with 2 Turns (QC): 6 Walk 150 ft (QC): 6 Gait Level of Assist: 6 Gait Assistive Device: FWW Stairs (FIM): 2 # of Steps: 4 1 Step (curb) (QC): 6 4 Steps (QC): 6 12 Steps (QC): 9 Stairs Level Of Assist: 6 Picking up an Object (QC): 6 PT Plan Problem List Problem List: Activity Tolerance, Functional Strength, Safety, Balance, Gait, Transfer, Bed Mobility, ROM Treatment/Plan Treatment Plan: Continue Plan of Care Treatment Plan: Bed Mobility, Education, Functional Activity Jordy, Functional Strength, Group Therapy, Gait, Safety, Therapeutic Exercise, Transfers Treatment Duration: Feb 03, 2019 Frequency: At least 5 of 7 days/Wk (IRF) Estimated Hrs Per Day: 1.5 hours per day Patient and/or Family Agrees t: Yes Safety Risks/Education Patient Education: Gait Training, Transfer Techniques, Correct Positioning, Safety Issues Teaching Recipient: Patient Teaching Methods: Demonstration, Discussion Response to Teaching: Reinforcement Needed Time/GCodes Time In: 0900 Time Out: 1000 Total Billed Treatment Time: 60 Total Billed Treatment 1 visit EX 20' FA 10' GT 30' STACY LOPEZ PT Jan 11, 2019 09:56
--- NOTE | 2019-01-11 11:09 | Occupational Ther Daily Note ---
OT Current Status-Daily Note Subjective Pt asleep in bed, pt woken up. Pt's present, stating pt took medication to calm his anxiety. Pt awake, completes orientation questions- oriented to person, place, not date. Pt no c/o pain. Mental Status/Objective Patient Orientation: Person, Place Therapy Code Descriptions/Definitions Functional [place] Measure: 0=Not Assessed/NA 4=Minimal Assistance 1=Total Assistance 5=Supervision or Setup 2=Maximal Assistance 6=Modified [place] 3=Moderate Assistance 7=Complete [place] ADL-Treatment Therapy Code Descriptions/Definitions Functional [place] Measure: 0=Not Assessed/NA 4=Minimal Assistance 1=Total Assistance 5=Supervision or Setup 2=Maximal Assistance 6=Modified [place] 3=Moderate Assistance 7=Complete [place] Therapy Quality Codes: 6 Independent with activity with or without an assistive device 5 Patient requires set up or clean up by helper. Patient completes activity by themselves 4 Supervision or touching assist (CGA). [place] provide cues , steadying assist 3 The helper provides less than half the effort to complete the activity 2 The helper provides more than half the effort to complete the activity 1 Dependent. The helper does all the effort to complete an activity 7 Patient refused to complete or attempt activity 9 The patient did not perform the activity before the current illness or injury 88 Not attempted due to Medical conditions or safety concerns Eating (FIM): 6 (increased time for opening packages, pt able to complete with fair motor control with no spillage.) Eating (QC): 6 Grooming (FIM): 6 (Pt completes grooming tasks sitting EOB, able to open packages and completes washing face.) Bathing (FIM): 4 (Pt completes washing UB with wipes with ease EOB, increased breathing noted with LE. Pt unable to reach bilateral feet, requiring assist. ) Shower/Bathe Self (QC): 3 Transfers (B, C, W/C) (FIM): 4 (Pt completes sit to stand with CGA due to decreased endurance and strength.) Other Treatment Pt unable to state date, requires increased time for responses (5-20 seconds for responses from pt.) Pt requires max cueing for sitting EOB. Pt sat EOB, rested hands on thighs, some SOB noted. Pt asked to complete deep breathing, unable to follow directions. Pt completes hand hand model exercises with max cues and visual demonstration, completing 10 reps R hand; pt was asked to count aloud to compelte 10 reps L hand, pt did not count aloud and stopped at 6. Pt stared off, pt did not respond to requests 3x. Pt asked to compelte reps. Pt completed with clinician counting. Pt completes UB ROM exercises against gravity with demonstrations throughout. Pt's begins talking about past hobbies, pt spoke through conversation and able to respond to requests within seconds. Pt educated of breathing techniques, completes 10x. Pt states he is more awake now, and does not have pain but some weakness. Pt suggests return to bed, unable to scoot toward HOB. Pt asked to wait for FWW, pt sit to stand with CGA. Pt side-steps to HOB, sitting and requires min A for bed mob to return to bed. Pt completes s/u for coffee with fair motor control, no spillage. Pt in bed at end of session, call light in reach, all needs met, present. Education OT Patient Education: Correct positioning, Energy conservation, Exercise program, Home exercise program, Modified ADL techniques, Reviewed precautions, Rehab process, Safety issues, Transfer techniques Teaching Recipient: Patient Teaching Methods: Demonstration, Discussion Response to Teaching: Verbalize Understanding, Return Demonstration OT Short Term Goals Short Term Goals Upper Body Dressing(FIM): 6 (met) Lower Body Dressing(FIM): 3 (met) Transfers (B,C,W/C) (FIM): 5 1=Demonstrate adherence to instructed precautions during ADL tasks. 2=Patient will verbalize/demonstrate understanding of assistive devices/modifications for ADL. 3=Patient will improve strength/tolerance for activity to enable patient to perform ADL's. OT Nursing Service Director Goals Nursing Service Director Goals Eating (FIM): 7 Eating (QC): 6 Groomin Oral Hygiene (QC): 6 Bathing(FIM): 6 Shower/Bathe Self (QC): 6 Upper Body Dressing(FIM): 6 Upper Body Dressing (QC): 6 Lower Body Dressing(FIM): 6 Lower Body Dressing (QC): 6 On/Off Footwear (QC): 6 Toileting(FIM): 5 Toileting Hygiene (QC): 6 Transfers (B,C,W/C) (FIM): 6 Toilet/Commode Transfer(FIM): 5 Toilet/Commode Transfer (QC): 4 Tub Transfer(FIM): 5 Shower Transfer(FIM): 5 Additional Goals: 1-Demonstrate ADL Tasks, 2-Verbalize Understanding, 3- ImproveStrength/Jordy 1=Demonstrate adherence to instructed precautions during ADL tasks. 2=Patient will verbalize/demonstrate understanding of assistive danelle lorenzo/modifications for ADL. 3=Patient will improve strength/tolerance for activity to enable patient to perform ADL's. OT Education/Plan Problem List/Assessment Assessment: Decreased Activ Tolerance, Decreased Safety Aware, Decreased UE Strength, Impaired Bed Mobility, Impaired Coordination, Impaired Funct Balance, Impaired I ADL's, Impaired Self-Care Skills Discharge Recommendations Plan/Recommendations: Continue POC Treatment Plan/Plan of Care Treatment,Training & Education: Yes Patient would benefit from OT for education, treatment and training to promote independence in ADL's, mobility, safety and/or upper extremity function for ADL's. Plan of Care: ADL Retraining, Caregiver Training, Cognitive Retraining, Functional Mobility, Group Exercise/Act as Ind, UE Funct Exercise/Act, UE Neuromus Re-Ed/Coord Treatment Duration: Jan 09, 2019 Frequency: 5 times per week Estimated Hrs Per Day: 1 hour per day (1-1.5 hours per day) Agreement: Yes Rehab Potential: Fair Time/GCodes Start Time: 10:00 Stop Time: 10:40 Total Time Billed (hr/min): 40 Billed Treatment Time 1, ADL (15) EX (25)= 40 JOANA MENDOZA OTR Jan 11, 2019 11:09
--- NOTE | 2019-01-11 12:12 | Occupational Ther Daily Note ---
OT Current Status-Daily Note Subjective Pt seen in bed, no c/o pain. Pt states very weak and comfortable in bed. Pt agreeable to tx session Mental Status/Objective Patient Orientation: Normal For Age Therapy Code Descriptions/Definitions Functional [place] Measure: 0=Not Assessed/NA 4=Minimal Assistance 1=Total Assistance 5=Supervision or Setup 2=Maximal Assistance 6=Modified [place] 3=Moderate Assistance 7=Complete [place] ADL-Treatment Therapy Code Descriptions/Definitions Functional [place] Measure: 0=Not Assessed/NA 4=Minimal Assistance 1=Total Assistance 5=Supervision or Setup 2=Maximal Assistance 6=Modified [place] 3=Moderate Assistance 7=Complete [place] Therapy Quality Codes: 6 Independent with activity with or without an assistive device 5 Patient requires set up or clean up by helper. Patient completes activity by themselves 4 Supervision or touching assist (CGA). [place] provide cues , steadying assist 3 The helper provides less than half the effort to complete the activity 2 The helper provides more than half the effort to complete the activity 1 Dependent. The helper does all the effort to complete an activity 7 Patient refused to complete or attempt activity 9 The patient did not perform the activity before the current illness or injury 88 Not attempted due to Medical conditions or safety concerns Grooming (FIM): 6 (increased time for packaging for hand wipes.) Upper Body Dressing (QC): 6 (completes on commode.) Lower Body Dressing (QC): 6 (completes shoe donning EOB with shoe horn ) Toileting (FIM): 4 (CGA in stance during hygiene. Pt completes with increased time and verbalizations during wiping as he is uncomfortable. Pt requires cues to pull up both sides of breifs.) Toileting Hygiene (QC): 4 (CGA during stance.) Transfers (B, C, W/C) (FIM): 4 (CGA during sit to stand due to weakness.) Toilet/Commode Transfer (FIM): 4 (CGA due to weakness.) Toilet Transfer (QC): 4 (CGA) Other Treatment Pt's present through session. Pt has rattling expirations while laying supine in bed. Pt's breathing non-rattling when sitting EOB or completing walking. Pt completes activities with increased time. Pt requests OT hand during bed mob, pt able to complete without assist but SBA. Pt completes sit to stand with SBA. Pt able to ambulate with FWW to gather new shirt, changes with mod I on commode. Pt utilizes bathroom with increased time, CGA and increased vocals. Pt moves FWW forward and steps toward FWW with pants around ankles, pt educated on safety and pt returns to commode to complete bowel movement. Pt completes LB dressing with continued cues for FWW placement as he continued to take 2 steps forward with pants around ankles. Pt sat to complete LB dressing above knee, able to pull up with cues for both sides. pt educated on benefits of sitting rather than laying down during the day. Pt returns to chair, call light in reach and all needs met. Education OT Patient Education: Correct positioning, Energy conservation, Modified ADL techniques, Purpose of tx/functional activities, Rehab process, Safety issues, Transfer techniques, Use of adapted equipment Teaching Recipient: Patient, Family Teaching Methods: Demonstration, Discussion Response to Teaching: Verbalize Understanding, Return Demonstration OT Short Term Goals Short Term Goals Upper Body Dressing(FIM): 6 (met) Lower Body Dressing(FIM): 3 (met) Transfers (B,C,W/C) (FIM): 5 1=Demonstrate adherence to instructed precautions during ADL tasks. 2=Patient will verbalize/demonstrate understanding of assistive devices/modifications for ADL. 3=Patient will improve strength/tolerance for activity to enable patient to perform ADL's. OT Tuber Machine Cutter Goals Tuber Machine Cutter Goals Eating (FIM): 7 Eating (QC): 6 Groomin Oral Hygiene (QC): 6 Bathing(FIM): 6 Shower/Bathe Self (QC): 6 Upper Body Dressing(FIM): 6 Upper Body Dressing (QC): 6 Lower Body Dressing(FIM): 6 Lower Body Dressing (QC): 6 On/Off Footwear (QC): 6 Toileting(FIM): 5 Toileting Hygiene (QC): 6 Transfers (B,C,W/C) (FIM): 6 Toilet/Commode Transfer(FIM): 5 Toilet/Commode Transfer (QC): 4 Tub Transfer(FIM): 5 Shower Transfer(FIM): 5 Additional Goals: 1-Demonstrate ADL Tasks, 2-Verbalize Understanding, 3- ImproveStrength/Jordy 1=Demonstrate adherence to instructed precautions during ADL tasks. 2=Patient will verbalize/demonstrate understanding of assistive danelle lorenzo/modifications for ADL. 3=Patient will improve strength/tolerance for activity to enable patient to perform ADL's. OT Education/Plan Problem List/Assessment Assessment: Decreased Activ Tolerance, Decreased Safety Aware, Decreased UE Strength, Impaired Bed Mobility, Impaired Coordination, Impaired I ADL's, Impaired Self-Care Skills Discharge Recommendations Plan/Recommendations: Continue POC Treatment Plan/Plan of Care Patient would benefit from OT for education, treatment and training to promote independence in ADL's, mobility, safety and/or upper extremity function for ADL's. Plan of Care: ADL Retraining, Caregiver Training, Cognitive Retraining, Functional Mobility, Group Exercise/Act as Ind, UE Funct Exercise/Act, UE Neuromus Re-Ed/Coord Treatment Duration: Jan 09, 2019 Frequency: 5 times per week Estimated Hrs Per Day: 1 hour per day (1-1.5 hours per day) Agreement: Yes Rehab Potential: Fair Time/GCodes Start Time: 11:30 Stop Time: 12:05 Total Time Billed (hr/min): 35 Billed Treatment Time 1 ADL x2 (35) JOANA MENDOZA OTR Jan 11, 2019 12:12
[2019-01-11] MEDS ORDERED: ASPIRIN 81 MG CHEW (CHILDREN'S ASA) PO NR (12:45)
--- NOTE | 2019-01-11 12:53 | PM&R Progress Note ---
Subjective HPI/CC On Admission Date Seen by Provider: Jan 11, 2019 Time Seen by Provider: 09:00 CC: Debility from alcoholism and altered mental status HPI: This is a 73yoWM who was admitted nearly a week ago of Dr. Macias's who presented with altered mental status found to have significant alcohol withdrawal of which his was unaware that he was drinking alcohol but he was provided supportive care and subsequently has become quite debilitated overall. Smoking cessation has been counseled along with alcohol cessation. He is a retired [employer] for 35 years in [place]. He does report that he is needing to cut down on his alcohol. At this current time pt denies any significant pain, meds were reviewed, and will be continued on inpatient rehab. He has become incontinent and is need of further recovery before DC is planned. HPI per ELMER Martinez Sebastien Toledo is a 73-year-old male with past medical history of hypertension, coronary artery disease, GERD, and ETOH abuse who was recently admitted for AMS; his hospital stay was complicated by alcohol withdrawal. 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 CVA was suspected but ruled out via CT and clinical picture which was more consistent with ETOH withdrawal rather than CT. No MRI was done. Alcohol abuse was managed via activating CIWA protocol, giving thiamine and Folic acid. Pt was recently diagnosed with Paroxysmal Afib and was followed by Cardiology who ordered an Echo and started him on Eliquis. Pt's last stay also involved Macrocytic anemia which required transfusions and continued tx with folic acid. After pt was stabilized he was transitioned to inpatient rehabilitation on 01/08/19. Subjective/Events-last exam Dr. Macias consult resulted in an iron infusion of 1 gram and starting Requip. Dr. Montoya is seeing the Pt for the skin tears. Dysphagia diet will be changed to regular. Pt appear to be very chronically ill. Updated the at the bedside after I introduced myself. Conferred with RN. Reviewed therapy notes. Checked meds and labs. Review of Systems General: Fatigue Pulmonary: Dyspnea Objective Exam Vital Signs Vital Signs Date Time Temp Pulse Resp B/P (MAP) Pulse Ox O2 Delivery O2 Flow Rate FiO2 01/11/19 20:06 92 Room Air 01/11/19 16:45 36.4 81 16 141/77 (98) Capillary Refill : General Appearance: No Apparent Distress, WD/WN, Chronically ill HEENT: PERRL/EOMI, Normal ENT Inspection, Pharynx Normal, Moist Mucous Membranes Neck: Full Range of Motion, Normal Inspection, Non Tender, Supple Respiratory: Chest Non Tender, Lungs Clear, Normal Breath Sounds, No Accessory Muscle Use, No Respiratory Distress Cardiovascular: Regular Rate, Rhythm, No Edema, No Gallop, No JVD, No Murmur Gastrointestinal: Normal Bowel Sounds, No Organomegaly, No Pulsatile Mass, Non Tender, Soft Back: Normal Inspection, No CVA Tenderness, No Vertebral Tenderness Extremity: Normal Capillary Refill, Normal Inspection, Normal Range of Motion, Non Tender, No Calf Tenderness, No Pedal Edema Neurologic/Psychiatric: Alert, Oriented x3, No Motor/Sensory Deficits, Normal Mood/Affect, Disoriented Skin: Normal Color, Warm/Dry Lymphatic: No Adenopathy Results/Procedures Lab Laboratory Tests 01/11/19 05:15 Patient resulted labs reviewed. FIM Transfers Therapy Code Descriptions/Definitions Functional [place] Measure: 0=Not Assessed/NA 4=Minimal Assistance 1=Total Assistance 5=Supervision or Setup 2=Maximal Assistance 6=Modified [place] 3=Moderate Assistance 7=Complete [place] Therapy Quality Codes: 6 Independent with activity with or without an assistive device 5 Patient requires set up or clean up by helper. Patient completes activity by themselves 4 Supervision or touching assist (CGA). [place] provide cues , steadying assist 3 The helper provides less than half the effort to complete the activity 2 The helper provides more than half the effort to complete the activity 1 Dependent. The helper does all the effort to complete an activity 7 Patient refused to complete or attempt activity 9 The patient did not perform the activity before the current illness or inju ry 88 Not attempted due to Medical conditions or safety concerns Transfers (B, C, W/C) (FIM): 4 (CGA during sit to stand due to weakness.) Scootin Rollin Roll Left to Right (QC): 5 Supine to/from Sit: 4 Sit to/from Stand: 4 Sit to Lying (QC): 5 Sit to Stand (QC): 4 Chair/Okc-jm-Xoual Xfer(QC): 4 Bed to/from Chair: 4 Car Transfer (QC): 5 Gait Training Does the Patient Walk?: Yes Gait (FIM): 2 Distance (FIM): 3=150 ft (150x2) Distance: 100'x2 Walk 10 feet (QC): 4 Walk 50 ft with 2 Turns(QC): 4 Walk 150 ft (QC): 4 Walking 10ft/uneven surface-QC: 4 Gait Level of Assist: 4 Gait Persons Needed: 1 Gait Assistive Device: FWW Wheelchair Training Does the Pt Use a Wheelchair?: No Stair Training Stairs (FIM): 1 #of Steps: 1 1 Step (curb) (QC): 4 4 Steps (QC): 9 12 Steps (QC): 9 Level of Assist: 4 Mental Status/Objective Comprehension: 4 Expression: 5 Social Interaction: 6 Problem Solvin Memory: 4 ADL-Treatment Feedin (increased time for opening packages, pt able to complete with fair motor control with no spillage.) Eating (QC): 6 Groomin (increased time for packaging for hand wipes.) Oral Hygiene (QC): 4 (CGA, pt able to manipulate all items with increased time.) Bathin (Pt completes washing UB with wipes with ease EOB, increased breathing noted with LE. Pt unable to reach bilateral feet, requiring assist. ) Shower/Bathe Self (QC): 3 Upper Extremity Dressin (increased time) Upper Body Dressing (QC): 6 (completes on commode.) Lower Extremity Dressin (min A with use of AE for lower body dressing due to leg weakness and difficulty raising off floor to clear breif and pant donning.) Lower Body Dressing (QC): 6 (completes shoe donning EOB with shoe horn ) On/Off Footwear (QC): 6 (increased time with shoe horn) Toiletin (CGA in stance during hygiene. Pt completes with increased time and verbalizations during wiping as he is uncomfortable. Pt requires cues to pull up both sides of breifs.) Toileting Hygiene (QC): 4 (CGA during stance.) Toilet/Commode Transfer: 4 (CGA due to weakness.) Toilet Transfer (QC): 4 (CGA) Tub: 4 (CGA, cues for walker positioning during shower transfer. pt return demosntrated with accuracy after cues.) Assessment/Plan Assessment and Plan Assess & Plan/Chief Complaint Plan: IRF protocol Supportive care Delirium monitoring ETOH cessation Hold laxatives RLS per PCP consultation Nebs (1) Debility Status: Acute (2) Hypokalemia Status: Acute (3) Folate deficiency Status: Acute (4) Pancytopenia Status: Acute (5) Interstitial lung disease Status: Chronic (6) Weight loss, unintentional Status: Chronic (7) CAD (coronary artery disease) Status: Chronic Qualifiers: Coronary Disease-Associated Artery/Lesion type: [place] artery [place] vs. transplanted heart: [place] heart Associated angina: without angina Qualified Codes: I25.10 - Atherosclerotic heart disease of [place] coronary artery without angina pectoris (8) HTN (hypertension) Status: Chronic Qualifiers: Hypertension type: essential hypertension Qualified Codes: I10 - Essential (primary) hypertension (9) Nausea & vomiting Status: Acute Qualifiers: Vomiting type: unspecified (10) Atrial fibrillation with rapid ventricular response Status: Acute (11) Hypomagnesemia Status: Acute (12) Vertebral artery occlusion Status: Chronic Qualifiers: Laterality: unspecified laterality Qualified Codes: I65.09 - Occlusion and stenosis of unspecified vertebral artery (13) Aphasia Status: Acute (14) Altered mental status Status: Resolved Resolution Date/Time: 01/07/19 @ 11:56 (15) Alcohol dependence Status: Resolved Resolution Date/Time: 01/07/19 @ 11:56 Qualifiers: 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
--- NOTE | 2019-01-11 14:21 | Speech Therapy Daily Note ---
Speech Daily Progress Note Subjective Date Seen by Provider: Jan 11, 2019 Time Seen by Provider: 00:30 The patient was resting in his bed following his PT session. Objective The patient completed memory tasks related to his daily needs at 85% with decreased cues. Assessment Assessment Current Status: Good Progress Treatment Plan Continue Plan of Care Communication Comprehension: 4 Expression: 5 Social Cognition Social Interaction: 6 Problem Solvin Memory: 4 Speech Short Term Goals Short Term Goals Short Term Goals 1) The patient will complete memory tasks at 90% or greater with minimal cues. 2) The patient will complete problem solving tasks at 90% or greater with minimal cues. 3) The patient will complete safety awareness tasks at 90% or greater with minimal cues. Speech Intermediate Goals Retread Builder Goals The patient will improve cognitive level of function so that he may return home safely. Speech-Plan Patient/Family Goals Patient/Family Goals: The patient plans on returning home where he lives with his post rehab. Treatment Plan Speech Therapy Treatment Plan: Continue Plan of Care The patient is progressing well with cognitive goals. Treatment Duration: Jan 19, 2019 Frequency: 5 times per week Estimated Hrs Per Day: .5 hour per day Rehab Potential: Fair Barriers to Learning: Patient has mild cognitive deficits. Pt/Family Agrees to Plan: Yes Safety Risks/Education Teaching Recipient: Patient Teaching Methods: Discussion Response to Teaching: Verbalize Understanding Education Topics Provided: Continued safety and communication of wants/needs Time Speech Therapy Time In: 13:35 Speech Therapy Time Out: 15:05 Total Billed Time: 30 Billed Treatment Time 1KRISTAN BETH[address] ST Jan 11, 2019 14:21
--- NOTE | 2019-01-11 15:18 | Physical Therapy Daily Note ---
PT Daily Note-Current Subjective Pt reports "I woke up tired today." Agrees to PT. Transfers Therapy Code Descriptions/Definitions Functional [place] Measure: 0=Not Assessed/NA 4=Minimal Assistance 1=Total Assistance 5=Supervision or Setup 2=Maximal Assistance 6=Modified [place] 3=Moderate Assistance 7=Complete [place] Therapy Quality Codes: 6 Independent with activity with or without an assistive device 5 Patient requires set up or clean up by helper. Patient completes activity by themselves 4 Supervision or touching assist (CGA). [place] provide cues , steadying ass ist 3 The helper provides less than half the effort to complete the activity 2 The helper provides more than half the effort to complete the activity 1 Dependent. The helper does all the effort to complete an activity 7 Patient refused to complete or attempt activity 9 The patient did not perform the activity before the current illness or injury 88 Not attempted due to Medical conditions or safety concerns Weight Bearing Right Lower Extremity: Right Weight Bearing/Tolerated Left Lower Extremity: Left Weight Bearing/Tolerated Treatments Pt transferred sup to/from sit with min assist with skilled cues for sequencing and safety. Sit to stand with CGA. Pt ambulated 125 ft with FWW with SB-CGA. sit to stand x 5 reps for functional hip and knee ext strengthening. Pt back to room post treatment with FWW (125 Ft) with CGA. Pt iin bed post treatment with needs met. Assessment Unsteady gait with a narrow ROHAN. Decreased step length as well. Pt has difficulty with sit to stand from standard height surface. PT Short Term Goals Short Term Goals Transfers (B,C,W/C) (FIM): 5 PT Operations Manager/Coordinator Goals Custodial Goals PT Operations Manager/Coordinator Goals Time Frame: Feb 03, 2019 Transfers (B,C,W/C) (FIM): 6 Sit to Lying (QC): 6 Lying-Sitting on Side/Bed(QC): 6 Sit to Stand (QC): 6 Rollin Roll Left to Right (QC): 6 Chair/Yqd-co-Jnlsa Xfer(QC): 6 Car Transfer (QC): 6 Does the Patient Walk: Yes Gait (FIM): 6 Gait distance (FIM): 3=150 ft Distance: 250' Walk 10 feet (QC): 6 Walk 10ft-Uneven Surface(QC): 6 Walk 50ft with 2 Turns (QC): 6 Walk 150 ft (QC): 6 Gait Level of Assist: 6 Gait Assistive Device: FWW Stairs (FIM): 2 # of Steps: 4 1 Step (curb) (QC): 6 4 Steps (QC): 6 12 Steps (QC): 9 Stairs Level Of Assist: 6 Picking up an Object (QC): 6 PT Plan Problem List Problem List: Activity Tolerance, Functional Strength, Safety, Balance, Gait, Transfer, Bed Mobility Treatment/Plan Treatment Plan: Continue Plan of Care Treatment Plan: Bed Mobility, Education, Functional Activity Jordy, Functional Strength, Group Therapy, Gait, Safety, Therapeutic Exercise, Transfers Treatment Duration: Feb 03, 2019 Frequency: At least 5 of 7 days/Wk (IRF) Estimated Hrs Per Day: 1.5 hours per day Patient and/or Family Agrees t: Yes Safety Risks/Education Patient Education: Transfer Techniques, Safety Issues Teaching Recipient: Patient Teaching Methods: Demonstration, Discussion Response to Teaching: Reinforcement Needed Time/GCodes Time In: 1300 Time Out: 1330 Total Billed Treatment Time: 30 Total Billed Treatment visit EX 10 GT 20 GEOVANI BRIGHT PT Jan 11, 2019 15:18
[2019-01-11 16:45] VITALS: BP 141/77
[2019-01-11] MEDS: LORazepam 0.5 MG (ATIVAN) TABLET PO PRN (20:24)
[2019-01-11] MEDS: MONTELUKAST 10 MG (SINGULAIR) TAB PO SCH (20:24)
[2019-01-12 05:20] VITALS: BP 158/69
[2019-01-12 05:32] LABS: CALCIUM 8.4 MG/DL (8.5-10.1); CREATININE SERUM 1.2 MG/DL (0.60-1.30); MAGNESIUM 2.1 MG/DL (1.6-2.4); POTASSIUM 3.8 MMOL/L (3.6-5.0)
[2019-01-12] MEDS: FOLIC ACID 1 MG TAB PO SCH (06:18)
[2019-01-12] MEDS: predniSONE 20 MG TAB PO SCH (06:18)
[2019-01-12] MEDS: MULTIVIT W/MINERALS TAB (THERAGRAN M) PO SCH (06:19)
--- NOTE | 2019-01-12 09:28 | Progress Note - Cardiology ---
Cardiology SOAP Progress Note Subjective: No cp or palp or syncope Mod exertional shortness of breath Gen malaise Objective: I&O/Vital Signs 01/12/19 05:20 Temp 36.4 Pulse 79 Resp 22 B/P (MAP) 158/69 (98) Pulse Ox 92 O2 Delivery Room Air 01/12/19 00:00 Intake Total 630 ml Output Total 150 ml Balance 480 ml Weight (Pounds): 191 Weight (Ounces): 0.0 Weight (Calculated Kilograms): 86.368041 Constitutional: AAO x 3, well-developed, well-nourished Respiratory: No accessory muscle use, No respiratory distress; chest expansion is symmetric, chest is bilaterally symmetric, rhonchi (scattered), other (prolonged expiratory phase) Cardiovascular: regular rate-rhythm; No JVD; S1 and S2, systolic murmur Gastrointestional: No tender; soft, audible bowel sounds Extremities: other (mild bilat LE swelling) Neurologic/Psychiatric: grossly intact Skin: No rash on exposed areas, No ulcerations on exposed areas; other (multiple bruises to arms/legs bilat with abrasions; drsg to left elbow D&I) Results/Procedures: Labs Laboratory Tests 01/12/19 05:10: Sodium Level 137, Potassium Level 3.8, Chloride Level 103, Carbon Dioxide Level 26, Anion Gap 8, Blood Urea Nitrogen 13, Creatinine 1.20, Estimat Glomerular Filtration Rate 60, BUN/Creatinine Ratio 11, Glucose Level 98, Calcium Level 8.4L, Magnesium Level 2.1 A/P: Assessment: Bruising and oozing of bleed from iv sites and from minor injuries, improving AMS of undetermined etiology, probably related to alcohol withdrawal, managed by the Hospitalist Svce - improved PAF Anemia of undetermined etiology - being managed the Hospitalist/Medical Svce H/o mild to mod pancytopenia being during admission of Dec 23-Dec 4 OAC with Sue Upper and lower endoscopy of 12-27-[address] 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 This is of unknown age. There is mild to moderate narrowing of the proximal basilar artery. Per CTA of 01-02-19 Recent weight loss of approx 30 lbs of undetermined etiology CAD - Cardiac cath of 09/19/18 showed patent RCA stents that were place in Apr 2016: Alpine Xience 3.5 x 15 mm prox and Alpine Xience 3.0 x 15 mm distally, postdilated with a 3.5 mm balloon, The rest of the vessels have diffuse, mod disease. LVEF 50-55%. Normal LVEDP Echocardiogram of December 24, [address] Jimenez concentric hypertrophy. LVEF 45-50%. Grade 1 diastolic dysfunction. AoV thickening consistent with sclerosis with mild regurg. PASP 15-20mmHg. Severe ostial left renal artery stenosis with subsequent percutaneous transluminal angioplasty and residual minimal stenosis, no dissection or distal embolization by Dr. Keen at [facility] in [place], [place] in the early CT of the chest from August 2016 showed borderline adenopathy in the axillary regions and in the subcarinal space. 7 mm pulmonary nodule in the RUL. This is followed by Dr Toya MENDOZA, treated with CPAP, followed by Dr Pittman Mild carotid arterial disease on carotid u/s of 09/21/18 PAD - PCI of the right anterior tibial, posterior tibial and peroneal with Medtronic Nitinol 4mm x 20mm stent in the right posterior tibial December 08, [address] Langston in [place], [place]. Peripheral angio of 09/19/18: Infrarenal AAA, mod in size, just above aorto iliac bifurcation; mod diff disease of the sup fems and distal leg circulation on both sides. Patent R post tib stent Hypertension HLP - statin therapy followed by his PCP - currently being withheld d/t recent episode of pancreatitis Emphysema GERD H/o pancreatitis in the past - managed by PCP EKG of 11-03-15 showed LVH with repolarization abnormality and LAFB; not significantly changed on 09/13/18 CKD stage 2-3 H/o heavy ETOH use Tobaccoism - 2 PPD Plan: * Hold Eliquis today. Resume in a lower dose tomorrow (to reduce risk of oozing described above) * Continue low-dose ASA * Monitor labs * Dr Jimenez covering Card Svce this weekend. Please call if needed DAGO RAPHAEL MD FACP FAC CCDS Jan 12, 2019 09:28
[2019-01-12 09:55] VITALS: BP 162/75
[2019-01-12] MEDS: LORATADINE (CLARITIN) 10 MG TAB PO SCH (09:55)
[2019-01-12] MEDS: meTOprolol SUCCINATE 100 MG (TOPROL XL) TAB PO SCH ×2 (09:56→20:56)
[2019-01-12] MEDS: FUROSEMIDE 40 MG (LASIX) TAB PO SCH (09:56)
[2019-01-12] MEDS: ASPIRIN 81 MG CHEW (CHILDREN'S ASA) PO SCH (09:56)
[2019-01-12] MEDS: KCL 10 MEQ TAB (MICRO K) PO SCH (09:56)
[2019-01-12] MEDS: amLODIPine 5 MG (NORVASC) TAB PO SCH (09:56)
[2019-01-12] MEDS: LOSARTAN 100 MG (COZAAR) TABLET PO SCH (09:56)
[2019-01-12] MEDS: lisINopril 20 MG (PRINIVIL) TABLET PO SCH (09:56)
[2019-01-12] MEDS: PANTOPRAZOLE 20 MG TABLET (PROTONIX) PO SCH (09:56)
--- NOTE | 2019-01-12 09:56 | Physical Therapy Daily Note ---
PT Daily Note-Current Subjective Patient in recliner pre tx, agrees to PT, has no complaints of pain Appearance Patient in recliner post tx with nurse call, phone, tray, all needs met. Mental Status Patient Orientation: Person, Place, Situation Transfers Therapy Code Descriptions/Definitions Functional [place] Measure: 0=Not Assessed/NA 4=Minimal Assistance 1=Total Assistance 5=Supervision or Setup 2=Maximal Assistance 6=Modified [place] 3=Moderate Assistance 7=Complete [place] Therapy Quality Codes: 6 Independent with activity with or without an assistive device 5 Patient requires set up or clean up by helper. Patient completes activity by themselves 4 Supervision or touching assist (CGA). [place] provide cues , steadying assist 3 The helper provides less than half the effort to complete the activity 2 The helper provides more than half the effort to complete the activity 1 Dependent. The helper does all the effort to complete an activity 7 Patient refused to complete or attempt activity 9 The patient did not perform the activity before the current illness or injury 88 Not attempted due to Medical conditions or safety concerns Transfers (B, C, W/C) (FIM): 4 Sit to/from Stand: 4 Bed to/from Chair: 4 CGA for transfers Weight Bearing Right Lower Extremity: Right Weight Bearing/Tolerated Left Lower Extremity: Left Weight Bearing/Tolerated Gait Training Gait (FIM): 2 Distance: 120'x2, 100' Gait Level of Assist: 4 Gait Persons Needed: 1 Gait Assistive Device: FWW CGA, very slow, SOB Exercises Seated Therapy Exercises: Hip flexion, Hip abd/add (with pillow and RTB) Seated Reps: 20 LAQ alternating for 5 min NuStep Minutes: 15 NuStep Workload: 4 Treatments LE exercise, ambulation, transfers Assessment Current Status: Fair Progress less fatigue PT Short Term Goals Short Term Goals Transfers (B,C,W/C) (FIM): 5 PT Jail Goals Gizzard Skin Remover Goals PT Gizzard Skin Remover Goals Time Frame: Feb 03, 2019 Transfers (B,C,W/C) (FIM): 6 Sit to Lying (QC): 6 Lying-Sitting on Side/Bed(QC): 6 Sit to Stand (QC): 6 Rollin Roll Left to Right (QC): 6 Chair/Eiz-kj-Glbya Xfer(QC): 6 Car Transfer (QC): 6 Does the Patient Walk: Yes Gait (FIM): 6 Gait distance (FIM): 3=150 ft Distance: 250' Walk 10 feet (QC): 6 Walk 10ft-Uneven Surface(QC): 6 Walk 50ft with 2 Turns (QC): 6 Walk 150 ft (QC): 6 Gait Level of Assist: 6 Gait Assistive Device: FWW Stairs (FIM): 2 # of Steps: 4 1 Step (curb) (QC): 6 4 Steps (QC): 6 12 Steps (QC): 9 Stairs Level Of Assist: 6 Picking up an Object (QC): 6 PT Plan Problem List Problem List: Activity Tolerance, Functional Strength, Safety, Balance, Gait, Transfer, Bed Mobility, ROM Treatment/Plan Treatment Plan: Continue Plan of Care Treatment Plan: Bed Mobility, Education, Functional Activity Jordy, Functional Strength, Group Therapy, Gait, Safety, Therapeutic Exercise, Transfers Treatment Duration: Feb 03, 2019 Frequency: At least 5 of 7 days/Wk (IRF) Estimated Hrs Per Day: 1.5 hours per day Patient and/or Family Agrees t: Yes Safety Risks/Education Patient Education: Gait Training, Transfer Techniques, Correct Positioning, Safety Issues Teaching Recipient: Patient Teaching Methods: Demonstration, Discussion Response to Teaching: Reinforcement Needed Time/GCodes Time In: 0900 Time Out: 1000 Total Billed Treatment Time: 60 Total Billed Treatment 1 visit EX 30' GT 30' STACY LOPEZ PT Jan 12, 2019 09:56
[2019-01-12] MEDS ORDERED: RT-LEVALBUTEROL (XOPENEX) 1.25 MG/3 ML NEB NON-FORMULARY INH PRN (10:15)
--- NOTE | 2019-01-12 10:52 | Occupational Ther Daily Note ---
OT Current Status-Daily Note Subjective Pt seen in recliner chair, breakfast being eaten. No c/o pain and agreeable to OT tx session. Mental Status/Objective Patient Orientation: Normal For Age Therapy Code Descriptions/Definitions Functional [place] Measure: 0=Not Assessed/NA 4=Minimal Assistance 1=Total Assistance 5=Supervision or Setup 2=Maximal Assistance 6=Modified [place] 3=Moderate Assistance 7=Complete [place] ADL-Treatment Therapy Code Descriptions/Definitions Functional [place] Measure: 0=Not Assessed/NA 4=Minimal Assistance 1=Total Assistance 5=Supervision or Setup 2=Maximal Assistance 6=Modified [place] 3=Moderate Assistance 7=Complete [place] Therapy Quality Codes: 6 Independent with activity with or without an assistive device 5 Patient requires set up or clean up by helper. Patient completes activity by themselves 4 Supervision or touching assist (CGA). [place] provide cues , steadying assist 3 The helper provides less than half the effort to complete the activity 2 The helper provides more than half the effort to complete the activity 1 Dependent. The helper does all the effort to complete an activity 7 Patient refused to complete or attempt activity 9 The patient did not perform the activity before the current illness or injury 88 Not attempted due to Medical conditions or safety concerns Eating (FIM): 7 (Pt demonstrated good coordination and absence of intention tremors on this date while feeding. Pt states he feels "more in control" of his arm movements.) Eating (QC): 6 Grooming (FIM): 6 (sat in chair during face washing) On/Off Footwear (QC): 6 (utilized shoe horn for shoe donning ) Transfers (B, C, W/C) (FIM): 5 (Pt completes sit to stand from chair and walking with FWW with SBA ) Other Treatment Pt completes eating and agrees for exercises in gym. Pt ambulates with SBA and no c/o weakness. Pt states he can make it to gym without rest. Pt completes 11 minutes of arm bike exercise at 20 watt with 2 (1 minute) breaks. Pt does not complain of SOB nor demonstrate SOB. Pt educated of progress, pt agrees he feels stronger. Pt returns to recliner chair with SBA. Pt left with all needs met and call light in reach. Education OT Patient Education: Correct positioning, Energy conservation, Exercise program, Modified ADL techniques, Purpose of tx/functional activities, Rehab process, Safety issues, Transfer techniques, Use of adapted equipment Teaching Recipient: Patient Teaching Methods: Demonstration, Discussion Response to Teaching: Verbalize Understanding, Return Demonstration OT Short Term Goals Short Term Goals Upper Body Dressing(FIM): 6 (met) Lower Body Dressing(FIM): 3 (met) Transfers (B,C,W/C) (FIM): 5 (met- SBA) 1=Demonstrate adherence to instructed precautions during ADL tasks. 2=Patient will verbalize/demonstrate understanding of assistive devices/modifications for ADL. 3=Patient will improve strength/tolerance for activity to enable patient to perform ADL's. OT Medical Representative Goals Nursing Home Goals Eating (FIM): 7 Eating (QC): 6 Groomin Oral Hygiene (QC): 6 Bathing(FIM): 6 Shower/Bathe Self (QC): 6 Upper Body Dressing(FIM): 6 Upper Body Dressing (QC): 6 Lower Body Dressing(FIM): 6 Lower Body Dressing (QC): 6 On/Off Footwear (QC): 6 Toileting(FIM): 5 Toileting Hygiene (QC): 6 Transfers (B,C,W/C) (FIM): 6 Toilet/Commode Transfer(FIM): 5 Toilet/Commode Transfer (QC): 4 Tub Transfer(FIM): 5 Shower Transfer(FIM): 5 Additional Goals: 1-Demonstrate ADL Tasks, 2-Verbalize Understanding, 3- ImproveStrength/Jordy 1=Demonstrate adherence to instructed precautions during ADL tasks. 2=Patient will verbalize/demonstrate understanding of assistive devices/modific ations for ADL. 3=Patient will improve strength/tolerance for activity to enable patient to perform ADL's. OT Education/Plan Problem List/Assessment Assessment: Decreased Activ Tolerance, Decreased Safety Aware, Impaired Coordination, Impaired Funct Balance, Impaired I ADL's, Impaired Self-Care Skills Discharge Recommendations Plan/Recommendations: Continue POC Treatment Plan/Plan of Care Treatment,Training & Education: Yes Patient would benefit from OT for education, treatment and training to promote independence in ADL's, mobility, safety and/or upper extremity function for ADL's. Plan of Care: ADL Retraining, Caregiver Training, Cognitive Retraining, Functional Mobility, Group Exercise/Act as Ind, UE Funct Exercise/Act, UE Neuromus Re-Ed/Coord Treatment Duration: Jan 09, 2019 Frequency: 5 times per week Estimated Hrs Per Day: 1 hour per day (1-1.5 hours per day) Agreement: Yes Rehab Potential: Fair Time/GCodes Start Time: 08:30 Stop Time: 09:00 Total Time Billed (hr/min): 30 Billed Treatment Time 1 ADL (15), EX (15) JOANA MENDOZA OTR Jan 12, 2019 10:52
--- NOTE | 2019-01-12 11:28 | Occupational Ther Daily Note ---
OT Current Status-Daily Note Subjective Pt seen in recliner, pt agreeable to OT tx session. No c/o pain. Mental Status/Objective Patient Orientation: Normal For Age Therapy Code Descriptions/Definitions Functional [place] Measure: 0=Not Assessed/NA 4=Minimal Assistance 1=Total Assistance 5=Supervision or Setup 2=Maximal Assistance 6=Modified [place] 3=Moderate Assistance 7=Complete [place] ADL-Treatment Therapy Code Descriptions/Definitions Functional [place] Measure: 0=Not Assessed/NA 4=Minimal Assistance 1=Total Assistance 5=Supervision or Setup 2=Maximal Assistance 6=Modified [place] 3=Moderate Assistance 7=Complete [place] Therapy Quality Codes: 6 Independent with activity with or without an assistive device 5 Patient requires set up or clean up by helper. Patient completes activity by themselves 4 Supervision or touching assist (CGA). [place] provide cues , steadying assist 3 The helper provides less than half the effort to complete the activity 2 The helper provides more than half the effort to complete the activity 1 Dependent. The helper does all the effort to complete an activity 7 Patient refused to complete or attempt activity 9 The patient did not perform the activity before the current illness or injury 88 Not attempted due to Medical conditions or safety concerns Grooming (FIM): 6 (Completes sitting in shower chair) Bathing (FIM): 4 (CGA during stance due to c/o fatigue/ weakness. Pt utilizes grab bars with L as he washes hyacinth area with R hand. Pt able to complete all other body parts while seated on shower chair.) Shower/Bathe Self (QC): 4 (CGA during stance due to c/o fatigue/ weakness. Pt utilizes grab bars with L as he washes hyacinth area with R hand. Pt able to complete all other body parts while seated on shower chair.) Upper Body (FIM): 6 (completes sitting on shower chair.) Upper Body Dressing (QC): 6 Lower Body Dressing (FIM): 4 (use of three dimensional art instructor for LB dressing tasks, requires min A for threading LLE through breifs due to wet skin. Pt completes pants and R LE with mod I.) Lower Body Dressing (QC): 3 On/Off Footwear (QC): 6 (use of shoe horn and completes sitting ) Transfers (B, C, W/C) (FIM): 5 (SBA) Tub Transfer(FIM): 4 (CGA during showering tasks for safety) Other Treatment Pt gathers clothing items, pt's nurse notified of showering with instructions to take off bandages and allow for washing. Pt prepped in shower, pt completes shower with CGA in stance. Pt requires cues for energy conservation and completion of LB dressing with only one stance. Pt completes sit to stand while in shower with CGA due to safety, returns to recliner with call light in reach, all needs met, and / WIDE AREA NETWORK ADMINISTRATOR present. Education OT Patient Education: Correct positioning, Energy conservation, Modified ADL techniques, Purpose of tx/functional activities, Safety issues, Transfer techniques, Use of adapted equipment Teaching Recipient: Patient Teaching Methods: Demonstration, Discussion Response to Teaching: Verbalize Understanding, Return Demonstration OT Short Term Goals Short Term Goals Upper Body Dressing(FIM): 6 (met) Lower Body Dressing(FIM): 3 (met) Transfers (B,C,W/C) (FIM): 5 (met- SBA) 1=Demonstrate adherence to instructed precautions during ADL tasks. 2=Patient will verbalize/demonstrate understanding of assistive devices/modifications for ADL. 3=Patient will improve strength/tolerance for activity to enable patient to perform ADL's. OT [facility] Goals Anesthesiologist Attending Goals Eating (FIM): 7 (met) Eating (QC): 6 (met) Groomin Oral Hygiene (QC): 6 Bathing(FIM): 6 Shower/Bathe Self (QC): 6 Upper Body Dressing(FIM): 6 (met) Upper Body Dressing (QC): 6 (met) Lower Body Dressing(FIM): 6 Lower Body Dressing (QC): 6 On/Off Footwear (QC): 6 Toileting(FIM): 5 Toileting Hygiene (QC): 6 Transfers (B,C,W/C) (FIM): 6 Toilet/Commode Transfer(FIM): 5 Toilet/Commode Transfer (QC): 4 Tub Transfer(FIM): 5 Shower Transfer(FIM): 5 Additional Goals: 1-Demonstrate ADL Tasks, 2-Verbalize Understanding, 3- ImproveStrength/Jordy 1=Demonstrate adherence to instructed precautions during ADL tasks. 2=Patient will verbalize/demonstrate understanding of assistive devices/modifications for ADL. 3=Patient will improve strength/tolerance for activity to enable patient to perform ADL's. OT Education/Plan Problem List/Assessment Assessment: Decreased Activ Tolerance, Decreased UE Strength, Impaired Coordination, Impaired Funct Balance, Impaired I ADL's, Impaired Self-Care Skills Discharge Recommendations Plan/Recommendations: Continue POC Treatment Plan/Plan of Care Treatment,Training & Education: Yes Patient would benefit from OT for education, treatment and training to promote independence in ADL's, mobility, safety and/or upper extremity function for ADL's. Plan of Care: ADL Retraining, Caregiver Training, Cognitive Retraining, Functional Mobility, Group Exercise/Act as Ind, UE Funct Exercise/Act, UE Neuromus Re-Ed/Coord Treatment Duration: Jan 09, 2019 Frequency: 5 times per week Estimated Hrs Per Day: 1 hour per day (1-1.5 hours per day) Agreement: Yes Rehab Potential: Fair Time/GCodes Start Time: 10:30 Stop Time: 11:15 Total Time Billed (hr/min): 45 Billed Treatment Time 1 ADL x 3 (45) JOANA MENDOZA OTR Jan 12, 2019 11:28
--- NOTE | 2019-01-12 11:58 | PM&R Progress Note ---
Subjective HPI/CC On Admission Date Seen by Provider: Jan 12, 2019 Time Seen by Provider: 09:00 CC: Debility from alcoholism and altered mental status HPI: This is a 73yoWM who was admitted nearly a week ago of Dr. Macias's who presented with altered mental status found to have significant alcohol withdrawa l of which his was unaware that he was drinking alcohol but he was provided supportive care and subsequently has become quite debilitated overall. Smoking cessation has been counseled along with alcohol cessation. He is a retired [employer] for 35 years in [place]. He does report that he is needing to cut down on his alcohol. At this current time pt denies any significant pain, meds were reviewed, and will be continued on inpatient rehab. He has become incontinent and is need of further recovery before DC is planned. HPI per ELMER Martinez Sebastien Toledo is a 73-year-old male with past medical history of hypertension, co ronary artery disease, GERD, and ETOH abuse who was recently admitted for AMS; his hospital stay was complicated by alcohol withdrawal. 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 CVA was suspected but ruled out via CT and clinical picture which was more consistent with ETOH withdrawal rather than CT. No MRI was done. Alcohol abuse was managed via activating CIWA protocol, giving thiamine and Folic acid. Pt was recently diagnosed with Paroxysmal Afib and was followed by Cardiology who ordered an Echo and started him on Eliquis. Pt's last stay also involved Macrocytic anemia which required transfusions and continued tx with folic acid. After pt was stabilized he was transitioned to inpatient rehabilitation on 01/08/19. I was consult for evaluation of restless leg symptoms. Patient reports last couple of evenings beginning shortly after getting into bed he will develop uncomfortable sensation in his legs that is only alleviated by moving them. He's had this in the past and I have not prescribed medication for him but his had either Mirapex her ropinirole he has taken her medication with release of his symptoms. He does have anemia with a low folate level that is macrocytic that with a history of esophagitis poor nutritional status from alcoholism iron deficiency is highly likely as well. He denies melena or bright red blood per rectum and denies abdominal pain. He is back to baseline mental status after being admitted with altered mental status and delirium. This is likely due to alcohol withdrawal. Subjective/Events-last exam Ativan really helped his anxiety Panic attacks still occur A lot of anxiety before admission to the hospital noted Slept well after by mouth Ativan given Dr. Dorantes restarted aspirin Eliquis was restarted since the skin tears of stop bleeding Changing nebulizers to when necessary Conferred with RN. Reviewed therapy notes. Checked meds and labs. Review of Systems Musculoskeletal: leg pain Objective Exam Vital Signs Vital Signs Date Time Temp Pulse Resp B/P (MAP) Pulse Ox O2 Delivery O2 Flow Rate FiO2 01/13/19 10:04 72 158/74 (102) 01/13/19 08:30 Room Air 01/13/19 06:00 36.3 18 92 Capillary Refill : General Appearance: No Apparent Distress, WD/WN, Chronically ill HEENT: PERRL/EOMI, Normal ENT Inspection, Pharynx Normal, Moist Mucous Membranes Neck: Full Range of Motion, Normal Inspection, Non Tender, Supple Respiratory: Chest Non Tender, Lungs Clear, Normal Breath Sounds, No Accessory Muscle Use, No Respiratory Distress Cardiovascular: Regular Rate, Rhythm, No Edema, No Gallop, No JVD, No Murmur Gastrointestinal: Normal Bowel Sounds, No Organomegaly, No Pulsatile Mass, Non Tender, Soft Back: Normal Inspection, No CVA Tenderness, No Vertebral Tenderness Extremity: Normal Capillary Refill, Normal Inspection, Normal Range of Motion, Non Tender, No Calf Tenderness, No Pedal Edema Neurologic/Psychiatric: Alert, Oriented x3, No Motor/Sensory Deficits, Normal Mood/Affect, Disoriented Skin: Normal Color, Warm/Dry Lymphatic: No Adenopathy Results/Procedures Lab Patient resulted labs reviewed. FIM Transfers Therapy Code Descriptions/Definitions Functional [place] Measure: 0=Not Assessed/NA 4=Minimal Assistance 1=Total Assistance 5=Supervision or Setup 2=Maximal Assistance 6=Modified [place] 3=Moderate Assistance 7=Complete [place] Therapy Quality Codes: 6 Independent with activity with or without an assistive device 5 Patient requires set up or clean up by helper. Patient completes activity by themselves 4 Supervision or touching assist (CGA). [place] provide cues , steadying assist 3 The helper provides less than half the effort to complete the activity 2 The helper provides more than half the effort to complete the activity 1 Dependent. The helper does all the effort to complete an activity 7 Patient refused to complete or attempt activity 9 The patient did not perform the activity before the current illness or injury 88 Not attempted due to Medical conditions or safety concerns Transfers (B, C, W/C) (FIM): 5 (SBA) Scootin Rollin Roll Left to Right (QC): 5 Supine to/from Sit: 4 Sit to/from Stand: 4 Sit to Lying (QC): 5 Sit to Stand (QC): 4 Chair/Eqw-hp-[id number] Xfer(QC): 4 Bed to/from Chair: 4 Car Transfer (QC): 5 Gait Training Does the Patient Walk?: Yes Gait (FIM): 2 Distance (FIM): 3=150 ft (150x2) Distance: 120'x2, 100' Walk 10 feet (QC): 4 Walk 50 ft with 2 Turns(QC): 4 Walk 150 ft (QC): 4 Walking 10ft/uneven surface-QC: 4 Gait Level of Assist: 4 Gait Persons Needed: 1 Gait Assistive Device: FWW Wheelchair Training Does the Pt Use a Wheelchair?: No Stair Training Stairs (FIM): 1 #of Steps: 1 1 Step (curb) (QC): 4 4 Steps (QC): 9 12 Steps (QC): 9 Level of Assist: 4 Mental Status/Objective Comprehension: 4 Expression: 5 Social Interaction: 6 Problem Solvin Memory: 4 ADL-Treatment Feedin (Pt demonstrated good coordination and absence of intention tremors on this date while feeding. Pt states he feels "more in control" of his arm movements.) Eating (QC): 6 Groomin (Completes sitting in shower chair) Oral Hygiene (QC): 4 (CGA, pt able to manipulate all items with increased time.) Bathin (CGA during stance due to c/o fatigue/ weakness. Pt utilizes grab bars with L as he washes hyacinth area with R hand. Pt able to complete all other body parts while seated on shower chair.) Shower/Bathe Self (QC): 4 (CGA during stance due to c/o fatigue/ weakness. Pt utilizes grab bars with L as he washes hyacinth area with R hand. Pt able to complete all other body parts while seated on shower chair.) Upper Extremity Dressin (completes sitting on shower chair.) Upper Body Dressing (QC): 6 Lower Extremity Dressin (use of cell changer for LB dressing tasks, requires min A for threading LLE through breifs due to wet skin. Pt completes pants and R LE with mod I.) Lower Body Dressing (QC): 3 On/Off Footwear (QC): 6 (use of shoe horn and completes sitting ) Toiletin (CGA in stance during hygiene. Pt completes with increased time and verbalizations during wiping as he is uncomfortable. Pt requires cues to pull up both sides of breifs.) Toileting Hygiene (QC): 4 (CGA during stance.) Toilet/Commode Transfer: 4 (CGA due to weakness.) Toilet Transfer (QC): 4 (CGA) Tub: 4 (CGA during showering tasks for safety) Assessment/Plan Assessment and Plan Assess & Plan/Chief Complaint Plan: IRF protocol Supportive care Delirium monitoring ETOH cessation Hold laxatives RLS per PCP consultation Nebs to maintain when necessary Ativan as needed Eliquis and aspirin restarted per cardiology (1) Debility Status: Acute (2) Hypokalemia Status: Acute (3) Folate deficiency Status: Acute (4) Pancytopenia Status: Acute (5) Interstitial lung disease Status: Chronic (6) Weight loss, unintentional Status: Chronic (7) CAD (coronary artery disease) Status: Chronic Qualifiers: Coronary Disease-Associated Artery/Lesion type: [place] artery [place] vs. transplanted heart: [place] heart Associated angina: without angina Qualified Codes: I25.10 - Atherosclerotic heart disease of [place] coronary artery without angina pectoris (8) HTN (hypertension) Status: Chronic Qualifiers: Hypertension type: essential hypertension Qualified Codes: I10 - Essential (primary) hypertension (9) Nausea & vomiting Status: Acute Qualifiers: Vomiting type: unspecified (10) Atrial fibrillation with rapid ventricular response Status: Acute (11) Hypomagnesemia Status: Acute (12) Vertebral artery occlusion Status: Chronic Qualifiers: Laterality: unspecified laterality Qualified Codes: I65.09 - Occlusion and stenosis of unspecified vertebral artery (13) Aphasia Status: Acute (14) Altered mental status Status: Resolved Resolution Date/Time: 01/07/19 @ 11:56 (15) Alcohol dependence Status: Resolved Resolution Date/Time: 01/07/19 @ 11:56 Qualifiers: 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
--- NOTE | 2019-01-12 11:59 | Progress Note - Hospitalist ---
Subjective HPI/CC On Admission Date Seen by Provider: Jan 12, 2019 Time Seen by Provider: 11:40 CC: Debility from alcoholism and altered mental status HPI: This is a 73yoWM who was admitted nearly a week ago of Dr. Macias's who presented with altered mental status found to have significant alcohol withdrawal of which his was unaware that he was drinking alcohol but he was provided supportive care and subsequently has become quite debilitated overall. Smoking cessation has been counseled along with alcohol cessation. He is a retired [employer]in for 35 years in [place]. He does report that he is needing to cut down on his alcohol. At this current time pt denies any significant pain, meds were reviewed, and will be continued on inpatient rehab. He has become incontinent and is need of further recovery before DC is planned. HPI per ELMER Martinez Sebastien Toledo is a 73-year-old male with past medical history of hypertension, coronary artery disease, GERD, and ETOH abuse who was recently admitted for AMS; his hospital stay was complicated by alcohol withdrawal. 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 CVA was suspected but ruled out via CT and clinical picture which was more consistent with ETOH withdrawal rather than CT. No MRI was done. Alcohol abuse was managed via activating CIWA protocol, giving thiamine and Folic acid. Pt was recently diagnosed with Paroxysmal Afib and was followed by Cardiology who ordered an Echo and started him on Eliquis. Pt's last stay also involved Macrocytic anemia which required transfusions and continued tx with folic acid. After pt was stabilized he was transitioned to inpatient rehabilitation on 01/08/19. I was consult for evaluation of restless leg symptoms. Patient reports last couple of evenings beginning shortly after getting into bed he will develop uncomfortable sensation in his legs that is only alleviated by moving them. He's had this in the past and I have not prescribed medication for him but his had either Mirapex her ropinirole he has taken her medication with release of his symptoms. He does have anemia with a low folate level that is macrocytic that with a history of esophagitis poor nutritional status from alcoholism iron deficiency is highly likely as well. He denies melena or bright red blood per rectum and denies abdominal pain. He is back to baseline mental status after b eing admitted with altered mental status and delirium. This is likely due to alcohol withdrawal. Subjective/Events-last exam Patient reports feeling much better today. He did not have any issues with restless leg last night. Staff report that he did have an episode of shortness of breath appear to be extremely anxious. It resolved after IV Ativan he was tremulous at the time but this resolved with Ativan as well. He denies chest pain or shortness of breath today. This was not associated with IV iron infusion. Objective Exam Vital Signs Vital Signs Date Time Temp Pulse Resp B/P (MAP) Pulse Ox O2 Delivery O2 Flow Rate FiO2 01/12/19 11:00 Room Air 01/12/19 09:55 85 162/75 (104) 01/12/19 05:20 36.4 22 92 Capillary Refill : General Appearance: No Apparent Distress Respiratory: Lungs Clear, Normal Breath Sounds, No Accessory Muscle Use, No Respiratory Distress Cardiovascular: Regular Rate, Rhythm, No Edema, No Gallop, No JVD, No Murmur Results/Procedures Lab Laboratory Tests 01/12/19 05:10 Patient resulted labs reviewed. Assessment/Plan Assessment and Plan Assess & Plan/Chief Complaint 1. Restless legs syndrome likely aggravated by iron deficiency anemia. I will order anemia analyzer we'll give 1 mg of ropinirole at at bedtime tonight and plan iron and dextran infusion 1 g in the morning after a test dose. We'll follow-up on Tuesday. 2. Likely panic attack possibly aggravated by lingering alcohol withdrawal continue when necessary IV Ativan. Clinical Quality Measures DVT/VTE Risk/Contraindication: Risk Factor Score Per Nursin RFS Level Per Nursing on Admit: 4+=Very High ELMER MACIAS MD Jan 12, 2019 11:59
--- NOTE | 2019-01-12 13:15 | Speech Therapy Daily Note ---
Speech Daily Progress Note Subjective Date Seen by Provider: Jan 12, 2019 Time Seen by Provider: 00:30 The patient was resting in his bed with nursing bandaging his wounds. Objective The patient completed memory tasks related to his daily needs at 90% with minimal cues. Assessment Assessment Current Status: Good Progress Treatment Plan Continue Plan of Care Communication Comprehension: 4 Expression: 5 Social Cognition Social Interaction: 6 Problem Solvin Memory: 4 Speech Short Term Goals Short Term Goals Short Term Goals 1) The patient will complete memory tasks at 90% or greater with minimal cues. 2) The patient will complete problem solving tasks at 90% or greater with minimal cues. 3) The patient will complete safety awareness tasks at 90% or greater with minimal cues. Speech [employer] Director [employer] Goals [employer] Goals The patient will improve cognitive level of function so that he may return home safely. Speech-Plan Patient/Family Goals Patient/Family Goals: The patient plans on returning home with his Treatment Plan Speech Therapy Treatment Plan: Continue Plan of Care Patient is progressing well with cognitive goals. Treatment Duration: Jan 19, 2019 Frequency: 5 times per week Estimated Hrs Per Day: .5 hour per day Rehab Potential: Fair Barriers to Learning: Mild cognitive deficits. Pt/Family Agrees to Plan: Yes Safety Risks/Education Teaching Recipient: Patient Teaching Methods: Discussion Response to Teaching: Verbalize Understanding Education Topics Provided: Continued safety within his room. Time Speech Therapy Time In: 11:15 Speech Therapy Time Out: 11:45 Total Billed Time: 30 Billed Treatment Time [address] Jan 12, 2019 13:14
--- NOTE | 2019-01-12 13:20 | Physical Therapy Daily Note ---
PT Daily Note-Current Subjective Patient in recliner pre tx, agrees to PT, has no complaints of pain at rest. Appearance Patient in bed post tx with nurse call, phone, tray, all needs met, in room . Mental Status Patient Orientation: Normal For Age Transfers Therapy Code Descriptions/Definitions Functional [place] Measure: 0=Not Assessed/NA 4=Minimal Assistance 1=Total Assistance 5=Supervision or Setup 2=Maximal Assistance 6=Modified [place] 3=Moderate Assistance 7=Complete [place] Therapy Quality Codes: 6 Independent with activity with or without an assistive device 5 Patient requires set up or clean up by helper. Patient completes activity by themselves 4 Supervision or touching assist (CGA). [place] provide cues , steadying assist 3 The helper provides less than half the effort to complete the activity 2 The helper provides more than half the effort to complete the activity 1 Dependent. The helper does all the effort to complete an activity 7 Patient refused to complete or attempt activity 9 The patient did not perform the activity before the current illness or injury 88 Not attempted due to Medical conditions or safety concerns Scootin Rollin Supine to/from Sit: 4 Sit to/from Stand: 4 Bed to/from Chair: 4 min assist for sit to supine Weight Bearing Right Lower Extremity: Right Weight Bearing/Tolerated Left Lower Extremity: Left Weight Bearing/Tolerated Gait Training Gait (FIM): 2 Distance: 120'x2 Gait Level of Assist: 4 Gait Persons Needed: 1 Gait Assistive Device: FWW slow but steady ambulation, SOB with activity Treatments bed mobility and transfers, ambulation Assessment Current Status: Fair Progress improved speed during ambulation PT Short Term Goals Short Term Goals Transfers (B,C,W/C) (FIM): 5 (met- SBA) PT Lining Vamper Goals Longterm Goals PT Longterm Goals Time Frame: Feb 03, 2019 Transfers (B,C,W/C) (FIM): 6 Sit to Lying (QC): 6 Lying-Sitting on Side/Bed(QC): 6 Sit to Stand (QC): 6 Rollin Roll Left to Right (QC): 6 Chair/[id number]-Fpmjv Xfer(QC): 6 Car Transfer (QC): 6 Does the Patient Walk: Yes Gait (FIM): 6 Gait distance (FIM): 3=150 ft Distance: 250' Walk 10 feet (QC): 6 Walk 10ft-Uneven Surface(QC): 6 Walk 50ft with 2 Turns (QC): 6 Walk 150 ft (QC): 6 Gait Level of Assist: 6 Gait Assistive Device: FWW Stairs (FIM): 2 # of Steps: 4 1 Step (curb) (QC): 6 4 Steps (QC): 6 12 Steps (QC): 9 Stairs Level Of Assist: 6 Picking up an Object (QC): 6 PT Plan Problem List Problem List: Activity Tolerance, Functional Strength, Safety, Balance, Gait, Transfer, Bed Mobility Treatment/Plan Treatment Plan: Continue Plan of Care Treatment Plan: Bed Mobility, Education, Functional Activity Jordy, Functional Strength, Group Therapy, Gait, Safety, Therapeutic Exercise, Transfers Treatment Duration: Feb 03, 2019 Frequency: At least 5 of 7 days/Wk (IRF) Estimated Hrs Per Day: 1.5 hours per day Patient and/or Family Agrees t: Yes Safety Risks/Education Patient Education: Gait Training, Transfer Techniques, Correct Positioning, Safety Issues Teaching Recipient: Patient Teaching Methods: Demonstration, Discussion Response to Teaching: Reinforcement Needed Time/GCodes Time In: 1300 Time Out: 1320 Total Billed Treatment Time: 20 Total Billed Treatment 1 visit GT 20' STACY LOPEZ PT Jan 12, 2019 13:20
[2019-01-12 16:23] VITALS: BP 124/65
[2019-01-12] MEDS: LORazepam 0.5 MG (ATIVAN) TABLET PO PRN (20:56)
[2019-01-12] MEDS: MONTELUKAST 10 MG (SINGULAIR) TAB PO SCH (20:56)
[2019-01-13] MEDS: FOLIC ACID 1 MG TAB PO SCH (05:49)
[2019-01-13] MEDS: predniSONE 20 MG TAB PO SCH (05:49)
[2019-01-13] MEDS: MULTIVIT W/MINERALS TAB (THERAGRAN M) PO SCH (05:49)
[2019-01-13 06:00] VITALS: BP 158/75
--- NOTE | 2019-01-13 09:02 | PM&R Progress Note ---
Subjective HPI/CC On Admission Date Seen by Provider: Jan 13, 2019 Time Seen by Provider: 09:15 CC: Debility from alcoholism and altered mental status HPI: This is a 73yoWM who was admitted nearly a week ago of Dr. Macias's who presented with altered mental status found to have significant alcohol withdrawa l of which his was unaware that he was drinking alcohol but he was provided supportive care and subsequently has become quite debilitated overall. Smoking cessation has been counseled along with alcohol cessation. He is a retired [employer] for 35 years in [place]. He does report that he is needing to cut down on his alcohol. At this current time pt denies any significant pain, meds were reviewed, and will be continued on inpatient rehab. He has become incontinent and is need of further recovery before DC is planned. HPI per ELMER Martinez Sebastien Toledo is a 73-year-old male with past medical history of hypertension, co ronary artery disease, GERD, and ETOH abuse who was recently admitted for AMS; his hospital stay was complicated by alcohol withdrawal. 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 CVA was suspected but ruled out via CT and clinical picture which was more consistent with ETOH withdrawal rather than CT. No MRI was done. Alcohol abuse was managed via activating CIWA protocol, giving thiamine and Folic acid. Pt was recently diagnosed with Paroxysmal Afib and was followed by Cardiology who ordered an Echo and started him on Eliquis. Pt's last stay also involved Macrocytic anemia which required transfusions and continued tx with folic acid. After pt was stabilized he was transitioned to inpatient rehabilitation on 01/08/19. I was consult for evaluation of restless leg symptoms. Patient reports last couple of evenings beginning shortly after getting into bed he will develop uncomfortable sensation in his legs that is only alleviated by moving them. He's had this in the past and I have not prescribed medication for him but his had either Mirapex her ropinirole he has taken her medication with release of his symptoms. He does have anemia with a low folate level that is macrocytic that with a history of esophagitis poor nutritional status from alcoholism iron deficiency is highly likely as well. He denies melena or bright red blood per rectum and denies abdominal pain. He is back to baseline mental status after being admitted with altered mental status and delirium. This is likely due to alcohol withdrawal. Subjective/Events-last exam Patient doing very well Dr. Montoya has signed off some skin tears are much improved and healing Denies any pain Much improved since nebulizers have been changed to when necessary now Anxiety much improved Conferred with RN. Reviewed therapy notes. Checked meds and labs. Review of Systems General: Fatigue Musculoskeletal: back pain Objective Exam Vital Signs Vital Signs Date Time Temp Pulse Resp B/P (MAP) Pulse Ox O2 Delivery O2 Flow Rate FiO2 01/13/19 10:04 72 158/74 (102) 01/13/19 08:30 Room Air 01/13/19 06:00 36.3 18 92 Capillary Refill : General Appearance: No Apparent Distress, WD/WN, Anxious, Chronically ill, Thin HEENT: PERRL/EOMI, Normal ENT Inspection, Pharynx Normal, Moist Mucous Membranes Neck: Full Range of Motion, Normal Inspection, Non Tender, Supple Respiratory: Lungs Clear, Normal Breath Sounds, No Accessory Muscle Use, No Respiratory Distress Cardiovascular: Regular Rate, Rhythm, No Edema, No Gallop, No JVD, No Murmur Gastrointestinal: Normal Bowel Sounds, No Organomegaly, No Pulsatile Mass, Non Tender, Soft Back: Normal Inspection, No CVA Tenderness, No Vertebral Tenderness Extremity: Normal Capillary Refill, Normal Inspection, Normal Range of Motion, Non Tender, No Calf Tenderness, No Pedal Edema Neurologic/Psychiatric: Alert, Oriented x3, No Motor/Sensory Deficits, Normal Mood/Affect Skin: Normal Color, Warm/Dry Lymphatic: No Adenopathy Results/Procedures Lab Patient resulted labs reviewed. FIM Transfers Therapy Code Descriptions/Definitions Functional [place] Measure: 0=Not Assessed/NA 4=Minimal Assistance 1=Total Assistance 5=Supervision or Setup 2=Maximal Assistance 6=Modified [place] 3=Moderate Assistance 7=Complete [place] Therapy Quality Codes: 6 Independent with activity with or without an assistive device 5 Patient requires set up or clean up by helper. Patient completes activity by themselves 4 Supervision or touching assist (CGA). [place] provide cues , steadying assist 3 The helper provides less than half the effort to complete the activity 2 The helper provides more than half the effort to complete the activity 1 Dependent. The helper does all the effort to complete an activity 7 Patient refused to complete or attempt activity 9 The patient did not perform the activity before the current illness or injury 88 Not attempted due to Medical conditions or safety concerns Transfers (B, C, W/C) (FIM): 5 (SBA) Scootin Rollin Roll Left to Right (QC): 5 Supine to/from Sit: 4 Sit to/from Stand: 4 Sit to Lying (QC): 5 Sit to Stand (QC): 4 Chair/Vdm-qy-Zjxmn Xfer(QC): 4 Bed to/from Chair: 4 Car Transfer (QC): 5 Gait Training Does the Patient Walk?: Yes Gait (FIM): 2 Distance (FIM): 3=150 ft (150x2) Distance: 120'x2 Walk 10 feet (QC): 4 Walk 50 ft with 2 Turns(QC): 4 Walk 150 ft (QC): 4 Walking 10ft/uneven surface-QC: 4 Gait Level of Assist: 4 Gait Persons Needed: 1 Gait Assistive Device: FWW Wheelchair Training Does the Pt Use a Wheelchair?: No Stair Training Stairs (FIM): 1 #of Steps: 1 1 Step (curb) (QC): 4 4 Steps (QC): 9 12 Steps (QC): 9 Level of Assist: 4 Mental Status/Objective Comprehension: 4 Expression: 5 Social Interaction: 6 Problem Solvin Memory: 4 ADL-Treatment Feedin (Pt demonstrated good coordination and absence of intention tremors on this date while feeding. Pt states he feels "more in control" of his arm movements.) Eating (QC): 6 Groomin (Completes sitting in shower chair) Oral Hygiene (QC): 4 (CGA, pt able to manipulate all items with increased time.) Bathin (CGA during stance due to c/o fatigue/ weakness. Pt utilizes grab bars with L as he washes hyacinth area with R hand. Pt able to complete all other body parts while seated on shower chair.) Shower/Bathe Self (QC): 4 (CGA during stance due to c/o fatigue/ weakness. Pt utilizes grab bars with L as he washes hyacinth area with R hand. Pt able to complete all other body parts while seated on shower chair.) Upper Extremity Dressin (completes sitting on shower chair.) Upper Body Dressing (QC): 6 Lower Extremity Dressin (use of municipal services manager for LB dressing tasks, requires min A for threading LLE through breifs due to wet skin. Pt completes pants and R LE with mod I.) Lower Body Dressing (QC): 3 On/Off Footwear (QC): 6 (use of shoe horn and completes sitting ) Toiletin (CGA in stance during hygiene. Pt completes with increased time and verbalizations during wiping as he is uncomfortable. Pt requires cues to pull up both sides of breifs.) Toileting Hygiene (QC): 4 (CGA during stance.) Toilet/Commode Transfer: 4 (CGA due to weakness.) Toilet Transfer (QC): 4 (CGA) Tub: 4 (CGA during showering tasks for safety) Assessment/Plan Assessment and Plan Assess & Plan/Chief Complaint Plan: IRF protocol Supportive care Delirium monitoring but appears to be much improved ETOH cessation Hold laxatives RLS per PCP consultation Patient doing very well with nebulizer changed to when necessary Ativan Dr. Montoya appreciated (1) Debility Status: Acute (2) Hypokalemia Status: Acute (3) Folate deficiency Status: Acute (4) Pancytopenia Status: Acute (5) Interstitial lung disease Status: Chronic (6) Weight loss, unintentional Status: Chronic (7) CAD (coronary artery disease) Status: Chronic Qualifiers: Coronary Disease-Associated Artery/Lesion type: [place] artery [place] vs. transplanted heart: [place] heart Associated angina: without angina Qualified Codes: I25.10 - Atherosclerotic heart disease of [place] coronary artery without angina pectoris (8) HTN (hypertension) Status: Chronic Qualifiers: Hypertension type: essential hypertension Qualified Codes: I10 - Essential (primary) hypertension (9) Nausea & vomiting Status: Acute Qualifiers: Vomiting type: unspecified (10) Atrial fibrillation with rapid ventricular response Status: Acute (11) Hypomagnesemia Status: Acute (12) Vertebral artery occlusion Status: Chronic Qualifiers: Laterality: unspecified laterality Qualified Codes: I65.09 - Occlusion and stenosis of unspecified vertebral artery (13) Aphasia Status: Acute (14) Altered mental status Status: Resolved Resolution Date/Time: 01/07/19 @ 11:56 (15) Alcohol dependence Status: Resolved Resolution Date/Time: 01/07/19 @ 11:56 Qualifiers: 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
--- NOTE | 2019-01-13 09:44 | Wound Care Assessment ---
Wound Care Assessment Date Seen by Provider: Jan 13, 2019 Time Seen by Provider: 09:35 Chief Complaint Multiple skin tears. HPI The patient is a 73 year old male with very fragile skin and multiple skin sears. Just gently removing a bandaid caused a new injury during the exam. will avoid all tape and use Xeroform dressings. Will follow. 01/13/19 Interval Note: The multiple skin tears of L arm are stable to improving with present dressings. We will continue same, and I will see the patient on an as needed basis. Will sign off. Smoking Status: Current Everyday Smoker Recreational Drug Use: No Alcohol Use: Regular Use Review of Systems Pulmonary: No Dyspnea Cardiovascular: No: Chest Pain Exam Vital Signs Date Time Temp Pulse Resp B/P (MAP) Pulse Ox O2 Delivery O2 Flow Rate FiO2 01/13/19 06:00 36.3 72 18 158/75 (102) 92 Room Air Capillary Refill : General Appearance: no apparent distress HEENT: normal ENT inspection Extremities: other (L arm wounds stable to improved.) Assessment/Plan/Dx 1. Fragile skin. 2. Multiple skin tears, improving with current regimen. 3. Chronic alcohol abuse. Plan: Avoidance of tape, Xeroform dressings. Will sign off. RAYMOND LAKE MD Jan 13, 2019 09:44
[2019-01-13] MEDS ORDERED: CATHETER FLUSH 10 ML SYR IV PRN (09:45)
--- NOTE | 2019-01-13 09:45 | NUR ---
DR KWON HERE TO ASSESS PATIENT. WHEN MD REMOVING PATIENT HAND XEROFORM, DR STATES HE CREATED NEW TEAR ON LATERAL HAND AND TO CONTINUE SAME ORDERS REST. SKIN TEARS HEALING APPEARANCE AND DR KWON REPORTS PROGRESS AND WILL NOT BE SEEING PATIENT ANYMORE. NOTIFY DR KWON OF ANY CONCERNS PRN MOVING FORWARD. DR ABAD HERE TO ASSESS PATIENT.
--- NOTE | 2019-01-13 10:00 | NUR ---
RED LUMENM NOT FLUSHING. LARGE AMOUNT OF DRIED BLOOD NOTED NEAR CATH TIP. CHANGED DRESSING AND CAPS ON PICC LINE. PATIENT TOLERATED DRESSING CHANGE WELL. DRESSING CHANGE DID NOT AFFECT RED LUMEN FLUSHING DIFFICULTY. INFORMED DR ABAD OF RED LUMEN NOT FLUSHING. PROTOCOL ORDERS PLACED FOR SALINE FLUSH. CONT TO MONITOR PATIENT. PATIENT IS UP IN CHAIR AND DENIES C/O.
[2019-01-13 10:04] VITALS: BP 158/74
[2019-01-13] MEDS: ASPIRIN 81 MG CHEW (CHILDREN'S ASA) PO SCH (10:05)
[2019-01-13] MEDS: meTOprolol SUCCINATE 100 MG (TOPROL XL) TAB PO SCH ×2 (10:05→20:00)
[2019-01-13] MEDS: PANTOPRAZOLE 20 MG TABLET (PROTONIX) PO SCH (10:05)
[2019-01-13] MEDS: APIXABAN 2.5 MG (ELIQUIS) TABLET PO SCH ×2 (10:05→20:00)
[2019-01-13] MEDS: amLODIPine 5 MG (NORVASC) TAB PO SCH (10:06)
[2019-01-13] MEDS: LOSARTAN 100 MG (COZAAR) TABLET PO SCH (10:06)
[2019-01-13] MEDS: lisINopril 20 MG (PRINIVIL) TABLET PO SCH (10:06)
[2019-01-13] MEDS: LORATADINE (CLARITIN) 10 MG TAB PO SCH (10:06)
--- NOTE | 2019-01-13 11:55 | Physical Therapy Daily Note ---
PT Daily Note-Current Subjective Pt agreeable to PT session Pain Numeric Pain Scale: 0-No Pain Appearance Pt sitting up in chair with nsg present upon arrival. At end of session, pt sitting up in chair with call light, phone and bedside table within reach Mental Status Patient Orientation: Person, Place, Time, Eyes Open, Situation Transfers Therapy Code Descriptions/Definitions Functional [place] Measure: 0=Not Assessed/NA 4=Minimal Assistance 1=Total Assistance 5=Supervision or Setup 2=Maximal Assistance 6=Modified [place] 3=Moderate Assistance 7=Complete [place] Therapy Quality Codes: 6 Independent with activity with or without an assistive device 5 Patient requires set up or clean up by helper. Patient completes activity by themselves 4 Supervision or touching assist (CGA). [place] provide cues , steadying assist 3 The helper provides less than half the effort to complete the activity 2 The helper provides more than half the effort to complete the activity 1 Dependent. The helper does all the effort to complete an activity 7 Patient refused to complete or attempt activity 9 The patient did not perform the activity before the current illness or injury 88 Not attempted due to Medical conditions or safety concerns Transfers (B, C, W/C) (FIM): 4 Sit to/from Stand: 4 (CGA with skilled verb inst required for hand placement and safety) Weight Bearing Right Lower Extremity: Right Weight Bearing/Tolerated Left Lower Extremity: Left Weight Bearing/Tolerated Gait Training Does the Patient Walk?: Yes Gait (FIM): 4 Distance (FIM): 3=150 ft Distance: 80, 160 Gait Level of Assist: 4 (CGA to min A provided for safety due to unsteady episodes) Gait Persons Needed: 1 Gait Assistive Device: FWW slow, ataxic, L knee occasionally "gives out", WBOS with ER, unsteady Exercises NuStep Minutes: 10 NuStep Workload: 5 (seat 12, arms 10, min A with LE's on and off machine) Treatments transfers, gait, safety, education, strength, balance, functional mobility, activity tolerance Assessment Current Status: Good Progress PT Short Term Goals Short Term Goals Transfers (B,C,W/C) (FIM): 5 (met- SBA) PT Care Home Goals Haul Driver Goals PT Care Home Goals Time Frame: Feb 03, 2019 Transfers (B,C,W/C) (FIM): 6 Sit to Lying (QC): 6 Lying-Sitting on Side/Bed(QC): 6 Sit to Stand (QC): 6 Rollin Roll Left to Right (QC): 6 Chair/Kis-dh-Rbxrr Xfer(QC): 6 Car Transfer (QC): 6 Does the Patient Walk: Yes Gait (FIM): 6 Gait distance (FIM): 3=150 ft Distance: 250' Walk 10 feet (QC): 6 Walk 10ft-Uneven Surface(QC): 6 Walk 50ft with 2 Turns (QC): 6 Walk 150 ft (QC): 6 Gait Level of Assist: 6 Gait Assistive Device: FWW Stairs (FIM): 2 # of Steps: 4 1 Step (curb) (QC): 6 4 Steps (QC): 6 12 Steps (QC): 9 Stairs Level Of Assist: 6 Picking up an Object (QC): 6 PT Plan Treatment/Plan Treatment Plan: Continue Plan of Care Treatment Plan: Bed Mobility, Education, Functional Activity Jordy, Functional Strength, Group Therapy, Gait, Safety, Therapeutic Exercise, Transfers Treatment Duration: Feb 03, 2019 Frequency: At least 5 of 7 days/Wk (IRF) Estimated Hrs Per Day: 1.5 hours per day Patient and/or Family Agrees t: Yes Safety Risks/Education Patient Education: Gait Training, Transfer Techniques, Safety Issues Teaching Recipient: Patient Teaching Methods: Demonstration, Discussion Response to Teaching: Verbalize Understanding, Return Demonstration, Reinforcement Needed Time/GCodes Time In: 850 Time Out: 920 Total Billed Treatment Time: 30 Total Billed Treatment 1 visit, EX x10 min, GT x20 min ALYSON ROSAS MAPPING SUPERVISOR Jan 13, 2019 11:55
--- NOTE | 2019-01-13 12:13 | NUR ---
PATIENT AGREEABLE TO DINE WITH OTHER PATIENTS. PATIENT AMBULATED WITH SBA , GAIT BELT FOR SAFETY AND FWW. EVEN , STEADY GAIT DEMONSTRATED. PATIENT C/O IMPROVING NUMBNESS IN EXTREMITIES. PATIENT IN DINING AREA, APPEARS TO BE SOCIALIZING AND INTERACTING APPROPRIATELY WITH OTHER PATIENTS. DENIES NEEDS OR C/O. CONT TO MONITOR.
[2019-01-13] MEDS: CATHETER FLUSH 10 ML SYR IV SCH ×2 (14:11→20:02)
[2019-01-13 18:26] VITALS: BP 143/78
[2019-01-13] MEDS: LORazepam 0.5 MG (ATIVAN) TABLET PO PRN (20:00)
[2019-01-13] MEDS: MONTELUKAST 10 MG (SINGULAIR) TAB PO SCH (20:00)
--- NOTE | 2019-01-13 21:30 | NUR ---
Pt requesting not to wear SCD's tonight, states "I can't move my legs and I have a hard time sleeping". Pt educated about the risk for developing DVTs, verbalizes understanding.
[2019-01-14] MEDS: predniSONE 20 MG TAB PO SCH (05:45)
[2019-01-14] MEDS: FOLIC ACID 1 MG TAB PO SCH (05:46)
[2019-01-14] MEDS: MULTIVIT W/MINERALS TAB (THERAGRAN M) PO SCH (05:46)
[2019-01-14] MEDS: CATHETER FLUSH 10 ML SYR IV SCH ×3 (05:48→20:24)
[2019-01-14 06:00] VITALS: BP 179/82
[2019-01-14 08:14] VITALS: BP 157/79
[2019-01-14] MEDS: LOSARTAN 100 MG (COZAAR) TABLET PO SCH (08:15)
[2019-01-14] MEDS: meTOprolol SUCCINATE 100 MG (TOPROL XL) TAB PO SCH ×2 (08:15→20:21)
[2019-01-14] MEDS: KCL 10 MEQ TAB (MICRO K) PO SCH (08:15)
[2019-01-14] MEDS: ASPIRIN 81 MG CHEW (CHILDREN'S ASA) PO SCH (08:15)
[2019-01-14] MEDS: APIXABAN 2.5 MG (ELIQUIS) TABLET PO SCH ×2 (08:16→20:21)
[2019-01-14] MEDS: LORATADINE (CLARITIN) 10 MG TAB PO SCH (08:16)
[2019-01-14] MEDS: amLODIPine 5 MG (NORVASC) TAB PO SCH (08:16)
[2019-01-14] MEDS: lisINopril 20 MG (PRINIVIL) TABLET PO SCH (08:16)
[2019-01-14] MEDS: PANTOPRAZOLE 20 MG TABLET (PROTONIX) PO SCH (08:16)
[2019-01-14] MEDS: FUROSEMIDE 40 MG (LASIX) TAB PO SCH (08:16)
--- NOTE | 2019-01-14 11:35 | PM&R Progress Note ---
Subjective HPI/CC On Admission Date Seen by Provider: Jan 14, 2019 Time Seen by Provider: 09:30 CC: Debility from alcoholism and altered mental status HPI: This is a 73yoWM who was admitted nearly a week ago of Dr. Macias's who presented with altered mental status found to have significant alcohol withdrawa l of which his was unaware that he was drinking alcohol but he was provided supportive care and subsequently has become quite debilitated overall. Smoking cessation has been counseled along with alcohol cessation. He is a retired [employer] for 35 years in [place]. He does report that he is needing to cut down on his alcohol. At this current time pt denies any significant pain, meds were reviewed, and will be continued on inpatient rehab. He has become incontinent and is need of further recovery before DC is planned. HPI per ELMER Martinez Sebastien Toledo is a 73-year-old male with past medical history of hypertension, co ronary artery disease, GERD, and ETOH abuse who was recently admitted for AMS; his hospital stay was complicated by alcohol withdrawal. 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 CVA was suspected but ruled out via CT and clinical picture which was more consistent with ETOH withdrawal rather than CT. No MRI was done. Alcohol abuse was managed via activating CIWA protocol, giving thiamine and Folic acid. Pt was recently diagnosed with Paroxysmal Afib and was followed by Cardiology who ordered an Echo and started him on Eliquis. Pt's last stay also involved Macrocytic anemia which required transfusions and continued tx with folic acid. After pt was stabilized he was transitioned to inpatient rehabilitation on 01/08/19. I was consult for evaluation of restless leg symptoms. Patient reports last couple of evenings beginning shortly after getting into bed he will develop uncomfortable sensation in his legs that is only alleviated by moving them. He's had this in the past and I have not prescribed medication for him but his had either Mirapex her ropinirole he has taken her medication with release of his symptoms. He does have anemia with a low folate level that is macrocytic that with a history of esophagitis poor nutritional status from alcoholism iron deficiency is highly likely as well. He denies melena or bright red blood per rectum and denies abdominal pain. He is back to baseline mental status after being admitted with altered mental status and delirium. This is likely due to alcohol withdrawal. Subjective/Events-last exam Having some urinary frequency but unsure if that is just related to his anxiety or he is having issues from an organic basis Alcoholism has really eliminated patient's reserve Asking for his Pain is well controlled Bowels are moving No longer wants nebulizer treatments restarted because they make him too nervous Benzodiazepines really help him calm his anxiety because of the alcoholism and alcohol withdrawal Conferred with RN. Reviewed therapy notes. Checked meds and labs. Review of Systems General: Fatigue Objective Exam Vital Signs Vital Signs Date Time Temp Pulse Resp B/P (MAP) Pulse Ox O2 Delivery O2 Flow Rate FiO2 01/14/19 17:33 36.6 75 18 162/79 (106) 96 Room Air Capillary Refill : General Appearance: No Apparent Distress, WD/WN, Chronically ill HEENT: PERRL/EOMI, Normal ENT Inspection, Pharynx Normal, Moist Mucous Membranes Neck: Full Range of Motion, Normal Inspection, Non Tender, Supple Respiratory: Chest Non Tender, Lungs Clear, Normal Breath Sounds, No Accessory Muscle Use, No Respiratory Distress Cardiovascular: Regular Rate, Rhythm, No Edema, No Gallop, No JVD, No Murmur Gastrointestinal: Normal Bowel Sounds, No Organomegaly, No Pulsatile Mass, Non Tender, Soft Back: Normal Inspection, No CVA Tenderness, No Vertebral Tenderness Extremity: Normal Capillary Refill, Normal Inspection, Normal Range of Motion, Non Tender, No Calf Tenderness, No Pedal Edema Neurologic/Psychiatric: Alert, Oriented x3, No Motor/Sensory Deficits, Normal Mood/Affect, Disoriented Skin: Normal Color, Warm/Dry Lymphatic: No Adenopathy Results/Procedures Lab Patient resulted labs reviewed. FIM Transfers Therapy Code Descriptions/Definitions Functional [place] Measure: 0=Not Assessed/NA 4=Minimal Assistance 1=Total Assistance 5=Supervision or Setup 2=Maximal Assistance 6=Modified [place] 3=Moderate Assistance 7=Complete [place] Therapy Quality Codes: 6 Independent with activity with or without an assistive device 5 Patient requires set up or clean up by helper. Patient completes activity by themselves 4 Supervision or touching assist (CGA). [place] provide cues , steadying assist 3 The helper provides less than half the effort to complete the activity 2 The helper provides more than half the effort to complete the activity 1 Dependent. The helper does all the effort to complete an activity 7 Patient refused to complete or attempt activity 9 The patient did not perform the activity before the current illness or injury 88 Not attempted due to Medical conditions or safety concerns Transfers (B, C, W/C) (FIM): 4 Scootin Rollin Roll Left to Right (QC): 5 Supine to/from Sit: 4 Sit to/from Stand: 4 (CGA with skilled verb inst required for hand placement and safety) Sit to Lying (QC): 5 Sit to Stand (QC): 4 Chair/Ynm-sw-Miiev Xfer(QC): 4 Bed to/from Chair: 4 Car Transfer (QC): 5 Gait Training Does the Patient Walk?: Yes Gait (FIM): 4 Distance (FIM): 3=150 ft Distance: 80, 160 Walk 10 feet (QC): 4 Walk 50 ft with 2 Turns(QC): 4 Walk 150 ft (QC): 4 Walking 10ft/uneven surface-QC: 4 Gait Level of Assist: 4 (CGA to min A provided for safety due to unsteady episodes) Gait Persons Needed: 1 Gait Assistive Device: FWW Wheelchair Training Does the Pt Use a Wheelchair?: No Stair Training Stairs (FIM): 1 #of Steps: 1 1 Step (curb) (QC): 4 4 Steps (QC): 9 12 Steps (QC): 9 Level of Assist: 4 Mental Status/Objective Comprehension: 4 Expression: 5 Social Interaction: 6 Problem Solvin Memory: 4 ADL-Treatment Feedin (Pt demonstrated good coordination and absence of intention tremors on this date while feeding. Pt states he feels "more in control" of his arm movements.) Eating (QC): 6 Groomin (Completes sitting in shower chair) Oral Hygiene (QC): 4 (CGA, pt able to manipulate all items with increased time.) Bathin (CGA during stance due to c/o fatigue/ weakness. Pt utilizes grab bars with L as he washes hyacinth area with R hand. Pt able to complete all other body parts while seated on shower chair.) Shower/Bathe Self (QC): 4 (CGA during stance due to c/o fatigue/ weakness. Pt utilizes grab bars with L as he washes hyacinth area with R hand. Pt able to complete all other body parts while seated on shower chair.) Upper Extremity Dressin (completes sitting on shower chair.) Upper Body Dressing (QC): 6 Lower Extremity Dressin (use of production expediter for LB dressing tasks, requires min A for threading LLE through breifs due to wet skin. Pt completes pants and R LE with mod I.) Lower Body Dressing (QC): 3 On/Off Footwear (QC): 6 (use of shoe horn and completes sitting ) Toiletin (CGA in stance during hygiene. Pt completes with increased time and verbalizations during wiping as he is uncomfortable. Pt requires cues to pull up both sides of breifs.) Toileting Hygiene (QC): 4 (CGA during stance.) Toilet/Commode Transfer: 4 (CGA due to weakness.) Toilet Transfer (QC): 4 (CGA) Tub: 4 (CGA during showering tasks for safety) Assessment/Plan Assessment and Plan Assess & Plan/Chief Complaint Plan: IRF protocol Supportive care Delirium monitoring ETOH cessation Hold laxatives until needed RLS per PCP consultation Nebs to maintain when necessary Ativan as needed Monitor urinary system Eliquis and aspirin restarted per cardiology (1) Debility Status: Acute (2) Hypokalemia Status: Acute (3) Folate deficiency Status: Acute (4) Pancytopenia Status: Acute (5) Interstitial lung disease Status: Chronic (6) Weight loss, unintentional Status: Chronic (7) CAD (coronary artery disease) Status: Chronic Qualifiers: Coronary Disease-Associated Artery/Lesion type: [place] artery [place] vs. transplanted heart: [place] heart Associated angina: without angina Qualified Codes: I25.10 - Atherosclerotic heart disease of [place] coronary artery without angina pectoris (8) HTN (hypertension) Status: Chronic Qualifiers: Hypertension type: essential hypertension Qualified Codes: I10 - Essential (primary) hypertension (9) Nausea & vomiting Status: Acute Qualifiers: Vomiting type: unspecified (10) Atrial fibrillation with rapid ventricular response Status: Acute (11) Hypomagnesemia Status: Acute (12) Vertebral artery occlusion Status: Chronic Qualifiers: Laterality: unspecified laterality Qualified Codes: I65.09 - Occlusion and stenosis of unspecified vertebral artery (13) Aphasia Status: Acute (14) Altered mental status Status: Resolved Resolution Date/Time: 01/07/19 @ 11:56 (15) Alcohol dependence Status: Resolved Resolution Date/Time: 01/07/19 @ 11:56 Qualifiers: 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
[2019-01-14 17:33] VITALS: BP 162/79
[2019-01-14] MEDS: MONTELUKAST 10 MG (SINGULAIR) TAB PO SCH (20:21)
[2019-01-14] MEDS: rOPINIRole 0.25 MG (REQUIP) TAB PO PRN (20:21)
[2019-01-14 20:25] VITALS: BP 159/82
[2019-01-15] MEDS: LORazepam 0.5 MG (ATIVAN) TABLET PO PRN ×2 (04:04→20:51)
[2019-01-15] MEDS: CATHETER FLUSH 10 ML SYR IV SCH ×3 (04:07→21:36)
[2019-01-15 05:21] VITALS: BP 157/61
[2019-01-15 05:36] LABS: BASOPHILS % (AUTO) 0 % (0-10); EOSINOPHILS # (AUTO) 0.2 10^3/uL (0.0-0.3); EOSINOPHILS % (AUTO) 1 % (0-10); HEMATOCRIT 32 % (40-54); HEMOGLOBIN 10.3 G/DL (13.3-17.7); LYMPHOCYTES # (AUTO) 1.8 X 10^3 (1.0-4.0); LYMPHOCYTES % (AUTO) 12 % (12-44); MEAN CORPUSCULAR HEMOGLOBIN 34 PG (25-34); MEAN CORPUSCULAR HGB CONC 33 G/DL (32-36); MEAN CORPUSCULAR VOLUME 106 FL (80-99); MEAN PLATELET VOLUME 10.5 FL (7.4-10.4); MONOCYTES # (AUTO) 1.2 X 10^3 (0.0-1.0); MONOCYTES % (AUTO) 7 % (0-12); NEUTROPHILS # (AUTO) 12.5 X 10^3 (1.8-7.8); NEUTROPHILS % (AUTO) 80 % (42-75); PLATELET COUNT 338 10^3/uL (130-400); RED CELL DISTRIBUTION WIDTH 15.2 % (10.0-14.5); WHITE BLOOD COUNT 15.6 10^3/uL (4.3-11.0)
[2019-01-15 05:51] LABS: ANISOCYTOSIS SLIGHT; EOSINOPHILS % (MANUAL) 1 %; LYMPHOCYTES % (MANUAL) 10 %; MONOCYTES % (MANUAL) 9 %; NEUTROPHILS % (MANUAL) 80 %; POIKILOCYTOSIS SLIGHT; SPHEROCYTES SLIGHT
[2019-01-15 05:56] LABS: ALANINE AMINOTRANSFERASE 17 U/L (0-55); ALBUMIN 2.9 GM/DL (3.2-4.5); ALKALINE PHOSPHATASE 74 U/L (40-136); BILIRUBIN,TOTAL 0.5 MG/DL (0.1-1.0); BUN/CREATININE RATIO 10; CALCIUM 8.1 MG/DL (8.5-10.1); CARBON DIOXIDE 23 MMOL/L (21-32); CHLORIDE 104 MMOL/L (98-107); CREATININE SERUM 0.96 MG/DL (0.60-1.30); GFR ESTIMATED > 60; GLUCOSE 107 MG/DL (70-105); MAGNESIUM 1.8 MG/DL (1.6-2.4); POTASSIUM 3.4 MMOL/L (3.6-5.0); SODIUM 140 MMOL/L (135-145); TOTAL PROTEIN 5.9 GM/DL (6.4-8.2)
[2019-01-15] MEDS: MULTIVIT W/MINERALS TAB (THERAGRAN M) PO SCH (06:34)
[2019-01-15] MEDS: FOLIC ACID 1 MG TAB PO SCH (06:34)
[2019-01-15] MEDS: predniSONE 20 MG TAB PO SCH (06:35)
--- NOTE | 2019-01-15 09:26 | Progress Note - Cardiology ---
Cardiology SOAP Progress Note Subjective: No new symptoms Persistent gen malaise No cp or palp or syncope Easy bruising and bleeding from minor trauma Objective: I&O/Vital Signs 01/15/19 05:21 Temp 36.2 Pulse 88 Resp 22 B/P (MAP) 157/61 (93) Pulse Ox 96 O2 Delivery Room Air 01/15/19 00:00 Intake Total 1640 ml Output Total 725 ml Balance 915 ml Weight (Pounds): 191 Weight (Ounces): 0.0 Weight (Calculated Kilograms): 86.037806 Constitutional: AAO x 3, well-developed, well-nourished Respiratory: No accessory muscle use, No respiratory distress; chest expansion is symmetric, chest is bilaterally symmetric, rhonchi (scattered), other (prolonged expiratory phase) Cardiovascular: regular rate-rhythm; No JVD; S1 and S2, systolic murmur Gastrointestional: No tender; soft, audible bowel sounds Extremities: other (mild bilat LE swelling) Neurologic/Psychiatric: grossly intact Skin: No rash on exposed areas, No ulcerations on exposed areas; other (multiple bruises to arms/legs bilat with abrasions; drsg to left elbow D&I) Results/Procedures: Labs Laboratory Tests 01/15/19 05:22: White Blood Count 15.6H, Red Blood Count 3.00L, Hemoglobin 10.3L, Hematocrit 32L , Mean Corpuscular Volume 106H, Mean Corpuscular Hemoglobin 34, Mean Corpuscular Hemoglobin Concent 33, Red Cell Distribution Width 15.2H, Platelet Count 338, Mean Platelet Volume 10.5H, Neutrophils (%) (Auto) 80H, Lymphocytes (%) (Auto) 12, Monocytes (%) (Auto) 7, Eosinophils (%) (Auto) 1, Basophils (%) (Auto) 0, Neutrophils # (Auto) 12.5H, Lymphocytes # (Auto) 1.8, Monocytes # (Auto) 1.2H, Eosinophils # (Auto) 0.2, Basophils # (Auto) 0.0, Neutrophils % (Manual) 80, L ymphocytes % (Manual) 10, Monocytes % (Manual) 9, Eosinophils % (Manual) 1, Poikilocytosis SLIGHT, Anisocytosis SLIGHT, Macrocytosis SLIGHT, Spherocytes SLIGHT, Sodium Level 140, Potassium Level 3.4L, Chloride Level 104, Carbon Dioxide Level 23, Anion Gap 13, Blood Urea Nitrogen 10, Creatinine 0.96, Estimat Glomerular Filtration Rate > 60, BUN/Creatinine Ratio 10, Glucose Level 107H, Calcium Level 8.1L, Corrected Calcium 9.0, Magnesium Level 1.8, Total Bilirubin 0.5, Aspartate Amino Transf (AST/SGOT) 18, Alanine Aminotransferase (ALT/SGPT) 17, Alkaline Phosphatase 74, Total Protein 5.9L, Albumin 2.9L A/P: Assessment: Bruising and oozing of bleed from iv sites and from minor injuries, improving but not resolved AMS of undetermined etiology, probably related to alcohol withdrawal, managed by the Hospitalist Svce - improved PAF Anemia of undetermined etiology - being managed the Hospitalist/Medical Svce H/o mild to mod pancytopenia being during admission of Dec 23-Dec 4 OAC with Eliquis Upper and lower endoscopy of 12-27-[address] 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 This is of unknown age. There is mild to moderate narrowing of the proximal basilar artery. Per CTA of 01-02-19 Recent weight loss of approx 30 lbs of undetermined etiology CAD - Cardiac cath of 09/19/18 showed patent RCA stents that were place in Apr 2016: Alpine Xience 3.5 x 15 mm prox and Alpine Xience 3.0 x 15 mm distally, postdilated with a 3.5 mm balloon, The rest of the vessels have diffuse, mod disease. LVEF 50-55%. Normal LVEDP Echocardiogram of December 24, [address] Jimenez concentric hypertrophy. LVEF 45-50%. Grade 1 diastolic dysfunction. AoV thickening consistent with sclero sis with mild regurg. PASP 15-20mmHg. Severe ostial left renal artery stenosis with subsequent percutaneous transluminal angioplasty and residual minimal stenosis, no dissection or distal embolization by Dr. Kene at [facility] in [place], [place] in the early 1999s CT of the chest from August 2016 showed borderline adenopathy in the axillary regions and in the subcarinal space. 7 mm pulmonary nodule in the RUL. This is followed by Dr Toya MENDOZA, treated with CPAP, followed by Dr Pittman Mild carotid arterial disease on carotid u/s of 09/21/18 PAD - PCI of the right anterior tibial, posterior tibial and peroneal with Medtr onic Nitinol 4mm x 20mm stent in the right posterior tibial December 08, [address] Langston in [place], [place]. Peripheral angio of 09/19/18: Infrarenal AAA, mod in size, just above aorto iliac bifurcation; mod diff disease of the sup fems and distal leg circulation on both sides. Patent R post tib stent Hypertension HLP - statin therapy followed by his PCP - currently being withheld d/t recent episode of pancreatitis Emphysema GERD H/o pancreatitis in the past - managed by PCP EKG of 11-03-15 showed LVH with repolarization abnormality and LAFB; not significantly changed on 09/13/18 CKD stage 2-3 H/o heavy ETOH use Tobaccoism - 2 PPD Plan: * Replenish K * Low-dose apixaban resume * Monitor labs DAGO RAPHAEL MD FACP FAC CCDS Jan 15, 2019 09:26
[2019-01-15] MEDS ORDERED: KCL 20 MEQ TAB (K-DUR) PO NR (09:30)
--- NOTE | 2019-01-15 10:00 | Physical Therapy Daily Note ---
PT Daily Note-Current Subjective Patient in recliner pre tx, agrees to PT, has no complaints of pain. Appearance Patient in recliner post tx with nurse call, phone, tray, all needs met. Mental Status Patient Orientation: Person, Place, Situation Transfers Therapy Code Descriptions/Definitions Functional [place] Measure: 0=Not Assessed/NA 4=Minimal Assistance 1=Total Assistance 5=Supervision or Setup 2=Maximal Assistance 6=Modified [place] 3=Moderate Assistance 7=Complete [place] Therapy Quality Codes: 6 Independent with activity with or without an assistive device 5 Patient requires set up or clean up by helper. Patient completes activity by themselves 4 Supervision or touching assist (CGA). [place] provide cues , steadying assist 3 The helper provides less than half the effort to complete the activity 2 The helper provides more than half the effort to complete the activity 1 Dependent. The helper does all the effort to complete an activity 7 Patient refused to complete or attempt activity 9 The patient did not perform the activity before the current illness or injury 88 Not attempted due to Medical conditions or safety concerns Transfers (B, C, W/C) (FIM): 5 Sit to/from Stand: 5 Bed to/from Chair: 5 Weight Bearing Right Lower Extremity: Right Weight Bearing/Tolerated Left Lower Extremity: Left Weight Bearing/Tolerated Gait Training Gait (FIM): 4 Distance: 120', 150' Gait Level of Assist: 4 Gait Persons Needed: 1 Gait Assistive Device: FWW Patient is mostly SBA but needs CGA when turning due to unsteadiness. Patient ambulates slowly and fatigues quickly, SOB with activity. Exercises Standing: Hip Abduction, Hamstring curls, Heel/toe raises, Mini squats Standing Reps: 15 LAQ alternating for 5 min NuStep Minutes: 15 NuStep Workload: 4 Treatments LE exercise, ambulation, transfers Assessment Current Status: Fair Progress improving endurance PT Short Term Goals Short Term Goals Transfers (B,C,W/C) (FIM): 5 (met- SBA) PT Residential Goals Eating Disorder Psychologist Goals PT Eating Disorder Psychologist Goals Time Frame: Feb 03, 2019 Transfers (B,C,W/C) (FIM): 6 Sit to Lying (QC): 6 Lying-Sitting on Side/Bed(QC): 6 Sit to Stand (QC): 6 Rollin Roll Left to Right (QC): 6 Chair/Uzs-sb-Jrgkp Xfer(QC): 6 Car Transfer (QC): 6 Does the Patient Walk: Yes Gait (FIM): 6 Gait distance (FIM): 3=150 ft Distance: 250' Walk 10 feet (QC): 6 Walk 10ft-Uneven Surface(QC): 6 Walk 50ft with 2 Turns (QC): 6 Walk 150 ft (QC): 6 Gait Level of Assist: 6 Gait Assistive Device: FWW Stairs (FIM): 2 # of Steps: 4 1 Step (curb) (QC): 6 4 Steps (QC): 6 12 Steps (QC): 9 Stairs Level Of Assist: 6 Picking up an Object (QC): 6 PT Plan Problem List Problem List: Activity Tolerance, Functional Strength, Safety, Balance, Gait, Transfer, Bed Mobility, ROM Treatment/Plan Treatment Plan: Continue Plan of Care Treatment Plan: Bed Mobility, Education, Functional Activity Jordy, Functional Strength, Group Therapy, Gait, Safety, Therapeutic Exercise, Transfers Treatment Duration: Feb 03, 2019 Frequency: At least 5 of 7 days/Wk (IRF) Estimated Hrs Per Day: 1.5 hours per day Patient and/or Family Agrees t: Yes Safety Risks/Education Patient Education: Gait Training, Transfer Techniques, Correct Positioning, Safety Issues Teaching Recipient: Patient Teaching Methods: Demonstration, Discussion Response to Teaching: Reinforcement Needed Time/GCodes Time In: 0900 Time Out: 1000 Total Billed Treatment Time: 60 Total Billed Treatment 1 visit GT 20' EX 40' STACY LOPEZ PT Jan 15, 2019 10:00
--- NOTE | 2019-01-15 10:03 | PM&R Progress Note ---
Subjective HPI/CC On Admission Date Seen by Provider: Jan 15, 2019 Time Seen by Provider: 09:00 CC: Debility from alcoholism and altered mental status HPI: This is a 73yoWM who was admitted nearly a week ago of Dr. Macias's who presented with altered mental status found to have significant alcohol withdrawal of which his was unaware that he was drinking alcohol but he was provided supportive care and subsequently has become quite debilitated overall. Smoking cessation has been counseled along with alcohol cessation. He is a retired [employer]in for 35 years in [place]. He does report that he is needing to cut down on his alcohol. At this current time pt denies any significant pain, meds were reviewed, and will be continued on inpatient rehab. He has become incontinent and is need of further recovery before DC is planned. HPI per ELMER Martinez Sebastien Toledo is a 73-year-old male with past medical history of hypertension, coronary artery disease, GERD, and ETOH abuse who was recently admitted for AMS; his hospital stay was complicated by alcohol withdrawal. 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 CVA was suspected but ruled out via CT and clinical picture which was more consistent with ETOH withdrawal rather than CT. No MRI was done. Alcohol abuse was managed via activating CIWA protocol, giving thiamine and Folic acid. Pt was recently diagnosed with Paroxysmal Afib and was followed by Cardiology who ordered an Echo and started him on Eliquis. Pt's last stay also involved Macrocytic anemia which required transfusions and continued tx with folic acid. After pt was stabilized he was transitioned to inpatient rehabilitation on 01/08/19. I was consult for evaluation of restless leg symptoms. Patient reports last couple of evenings beginning shortly after getting into bed he will develop uncomfortable sensation in his legs that is only alleviated by moving them. He's had this in the past and I have not prescribed medication for him but his had either Mirapex her ropinirole he has taken her medication with release of his symptoms. He does have anemia with a low folate level that is macrocytic that with a history of esophagitis poor nutritional status from alcoholism iron deficiency is highly likely as well. He denies melena or bright red blood per rectum and denies abdominal pain. He is back to baseline mental status after b eing admitted with altered mental status and delirium. This is likely due to alcohol withdrawal. Subjective/Events-last exam White count 15.4 on steroids, Hgb 10.3, Potassium 10.4 Strong urine smell Skin tears are improving Prednisone is decreasing BM this morning without the use of laxatives Overall appears to be very anxious and chronically ill from alcoholism Conferred with RN. Reviewed therapy notes. Checked meds and labs. Review of Systems General: Fatigue Pulmonary: Dyspnea Objective Exam Vital Signs Vital Signs Date Time Temp Pulse Resp B/P (MAP) Pulse Ox O2 Delivery O2 Flow Rate FiO2 01/15/19 19:23 97 Room Air 01/15/19 15:50 36.5 76 16 165/76 (105) Capillary Refill : General Appearance: No Apparent Distress, WD/WN, Chronically ill HEENT: PERRL/EOMI, Normal ENT Inspection, Pharynx Normal, Moist Mucous Membranes Neck: Full Range of Motion, Normal Inspection, Non Tender, Supple Respiratory: Chest Non Tender, Lungs Clear, Normal Breath Sounds, No Accessory Muscle Use, No Respiratory Distress Cardiovascular: Regular Rate, Rhythm, No Edema, No Gallop, No JVD, No Murmur Gastrointestinal: Normal Bowel Sounds, No Organomegaly, No Pulsatile Mass, Non Tender, Soft Back: Normal Inspection, No CVA Tenderness, No Vertebral Tenderness Extremity: Normal Capillary Refill, Normal Inspection, Normal Range of Motion, Non Tender, No Calf Tenderness, No Pedal Edema Neurologic/Psychiatric: Alert, Oriented x3, No Motor/Sensory Deficits, Normal Mood/Affect, Disoriented Skin: Normal Color, Warm/Dry Lymphatic: No Adenopathy Results/Procedures Lab Laboratory Tests 01/15/19 05:22 Patient resulted labs reviewed. FIM Transfers Therapy Code Descriptions/Definitions Functional [place] Measure: 0=Not Assessed/NA 4=Minimal Assistance 1=Total Assistance 5=Supervision or Setup 2=Maximal Assistance 6=Modified [place] 3=Moderate Assistance 7=Complete [place] Therapy Quality Codes: 6 Independent with activity with or without an assistive device 5 Patient requires set up or clean up by helper. Patient completes activity by themselves 4 Supervision or touching assist (CGA). [place] provide cues , steadying assist 3 The helper provides less than half the effort to complete the activity 2 The helper provides more than half the effort to complete the activity 1 Dependent. The helper does all the effort to complete an activity 7 Patient refused to complete or attempt activity 9 The patient did not perform the activity before the current illness or injury 88 Not attempted due to Medical conditions or safety concerns Transfers (B, C, W/C) (FIM): 5 Scootin Rollin Roll Left to Right (QC): 5 Supine to/from Sit: 4 Sit to/from Stand: 5 Sit to Lying (QC): 5 Sit to Stand (QC): 4 Chair/Vpv-fe-Dheaf Xfer(QC): 4 Bed to/from Chair: 5 Car Transfer (QC): 5 Gait Training Does the Patient Walk?: Yes Gait (FIM): 4 Distance (FIM): 3=150 ft Distance: 120', 150' Walk 10 feet (QC): 4 Walk 50 ft with 2 Turns(QC): 4 Walk 150 ft (QC): 4 Walking 10ft/uneven surface-QC: 4 Gait Level of Assist: 4 Gait Persons Needed: 1 Gait Assistive Device: FWW Wheelchair Training Does the Pt Use a Wheelchair?: No Stair Training Stairs (FIM): 1 #of Steps: 1 1 Step (curb) (QC): 4 4 Steps (QC): 9 12 Steps (QC): 9 Level of Assist: 4 Mental Status/Objective Comprehension: 4 Expression: 5 Social Interaction: 6 Problem Solvin Memory: 4 ADL-Treatment Feedin (Pt demonstrated good coordination and absence of intention tremors on this date while feeding. Pt states he feels "more in control" of his arm movements.) Eating (QC): 6 Groomin (Completes sitting in shower chair) Oral Hygiene (QC): 4 (CGA, pt able to manipulate all items with increased time.) Bathin (CGA during stance due to c/o fatigue/ weakness. Pt utilizes grab bars with L as he washes hyacinth area with R hand. Pt able to complete all other body parts while seated on shower chair.) Shower/Bathe Self (QC): 4 (CGA during stance due to c/o fatigue/ weakness. Pt utilizes grab bars with L as he washes hyacinth area with R hand. Pt able to complete all other body parts while seated on shower chair.) Upper Extremity Dressin (completes sitting on shower chair.) Upper Body Dressing (QC): 6 Lower Extremity Dressin (use of machine rope maker for LB dressing tasks, requires min A for threading LLE through breifs due to wet skin. Pt completes pants and R LE with mod I.) Lower Body Dressing (QC): 3 On/Off Footwear (QC): 6 (use of shoe horn and completes sitting ) Toiletin (CGA in stance during hygiene. Pt completes with increased time and verbalizations during wiping as he is uncomfortable. Pt requires cues to pull up both sides of breifs.) Toileting Hygiene (QC): 4 (CGA during stance.) Toilet/Commode Transfer: 4 (CGA due to weakness.) Toilet Transfer (QC): 4 (CGA) Tub: 4 (CGA during showering tasks for safety) Assessment/Plan Assessment and Plan Assess & Plan/Chief Complaint Plan: IRF protocol Supportive care Delirium monitoring ETOH cessation Hold laxatives until needed RLS per PCP consultation Nebs to maintain when necessary Ativan as needed Monitor urinary system Eliquis and aspirin restarted per cardiology Decrease steroid dose to 20mg Labs reviewed (1) Debility Status: Acute (2) Hypokalemia Status: Acute (3) Folate deficiency Status: Acute (4) Pancytopenia Status: Acute (5) Interstitial lung disease Status: Chronic (6) Weight loss, unintentional Status: Chronic (7) CAD (coronary artery disease) Status: Chronic Qualifiers: Coronary Disease-Associated Artery/Lesion type: [place] artery [place] vs. transplanted heart: [place] heart Associated angina: without angina Qualified Codes: I25.10 - Atherosclerotic heart disease of [place] coronary artery without angina pectoris (8) HTN (hypertension) Status: Chronic Qualifiers: Hypertension type: essential hypertension Qualified Codes: I10 - Essential (primary) hypertension (9) Nausea & vomiting Status: Acute Qualifiers: Vomiting type: unspecified (10) Atrial fibrillation with rapid ventricular response Status: Acute (11) Hypomagnesemia Status: Acute (12) Vertebral artery occlusion Status: Chronic Qualifiers: Laterality: unspecified laterality Qualified Codes: I65.09 - Occlusion and stenosis of unspecified vertebral artery (13) Aphasia Status: Acute (14) Altered mental status Status: Resolved Resolution Date/Time: 01/07/19 @ 11:56 (15) Alcohol dependence Status: Resolved Resolution Date/Time: 01/07/19 @ 11:56 Qualifiers: 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
[2019-01-15] MEDS: ASPIRIN 81 MG CHEW (CHILDREN'S ASA) PO SCH (10:08)
[2019-01-15] MEDS: PANTOPRAZOLE 20 MG TABLET (PROTONIX) PO SCH (10:09)
[2019-01-15] MEDS: APIXABAN 2.5 MG (ELIQUIS) TABLET PO SCH ×2 (10:09→20:51)
[2019-01-15] MEDS: amLODIPine 5 MG (NORVASC) TAB PO SCH (10:09)
[2019-01-15] MEDS: lisINopril 20 MG (PRINIVIL) TABLET PO SCH (10:09)
[2019-01-15] MEDS: meTOprolol SUCCINATE 100 MG (TOPROL XL) TAB PO SCH ×2 (10:09→20:51)
[2019-01-15] MEDS: LOSARTAN 100 MG (COZAAR) TABLET PO SCH (10:09)
[2019-01-15] MEDS: LORATADINE (CLARITIN) 10 MG TAB PO SCH (10:10)
--- NOTE | 2019-01-15 11:33 | Occupational Ther Daily Note ---
OT Current Status-Daily Note Subjective Pt seen in chair, no c/o pain. Pt agreeable to OT tx session. Mental Status/Objective Patient Orientation: Normal For Age Therapy Code Descriptions/Definitions Functional [place] Measure: 0=Not Assessed/NA 4=Minimal Assistance 1=Total Assistance 5=Supervision or Setup 2=Maximal Assistance 6=Modified [place] 3=Moderate Assistance 7=Complete [place] ADL-Treatment Therapy Code Descriptions/Definitions Functional [place] Measure: 0=Not Assessed/NA 4=Minimal Assistance 1=Total Assistance 5=Supervision or Setup 2=Maximal Assistance 6=Modified [place] 3=Moderate Assistance 7=Complete [place] Therapy Quality Codes: 6 Independent with activity with or without an assistive device 5 Patient requires set up or clean up by helper. Patient completes activity by themselves 4 Supervision or touching assist (CGA). [place] provide cues , steadying assist 3 The helper provides less than half the effort to complete the activity 2 The helper provides more than half the effort to complete the activity 1 Dependent. The helper does all the effort to complete an activity 7 Patient refused to complete or attempt activity 9 The patient did not perform the activity before the current illness or injury 88 Not attempted due to Medical conditions or safety concerns Eating (FIM): 7 Eating (QC): 6 Grooming (FIM): 5 (SUP for oral hygiene at sink for safety) Oral Hygiene (QC): 4 (SUP) Bathing (FIM): 5 (SUP during seated washingPt requires SBA for safety while in standing during hyacinth hygiene. Pt completes with good safety awareness and planning.) Shower/Bathe Self (QC): 4 (SUP) Upper Body (FIM): 6 (Completes on shower chair.) Upper Body Dressing (QC): 6 Lower Body Dressing (FIM): 4 (Touching assist in standing. Pt desires to use cotton underwear rather than breifs on this date. Pt required assist with guiding L leg through due to different material, utilized missile technician. ) Lower Body Dressing (QC): 3 On/Off Footwear (QC): 6 (mod I use of shoe horn.) Transfers (B, C, W/C) (FIM): 5 (SBA) Tub Transfer(FIM): 5 (SBA) Other Treatment Pt completes showering on this date. Pt returns to recliner chair with SBA, completes hand exercises BUE with hand sponge. Pt completes gripping, adduction/ abduction, and pinching exercises with one instance of dropping sponge due to tingling. Pt completes with good endurance. Pt sit to stand SBA, utilizes FWW to go to gym. Pt completes 5 minutes of arm bike with 20Watt resistance and no breaks. Pt states "feels good." Pt returns to room, sits in recliner chair and all needs met/ call light in reach. Education OT Patient Education: Correct positioning, Energy conservation, Exercise program, Home exercise program, Modified ADL techniques, Purpose of tx/functional activities, Rehab process, Safety issues, Transfer techniques, Use of adapted equipment Teaching Recipient: Patient Teaching Methods: Demonstration, Discussion Response to Teaching: Verbalize Understanding, Return Demonstration OT Short Term Goals Short Term Goals Upper Body Dressing(FIM): 6 (met) Lower Body Dressing(FIM): 3 (met) Transfers (B,C,W/C) (FIM): 5 (met- SBA) 1=Demonstrate adherence to instructed precautions during ADL tasks. 2=Patient will verbalize/demonstrate understanding of assistive devices/modifications for ADL. 3=Patient will improve strength/tolerance for activity to enable patient to perform ADL's. OT Chcf Goals Nuclear [employer] Safety Engineer Goals Eating (FIM): 7 (met) Eating (QC): 6 (met) Groomin Oral Hygiene (QC): 6 Bathing(FIM): 6 Shower/Bathe Self (QC): 6 Upper Body Dressing(FIM): 6 (met) Upper Body Dressing (QC): 6 (met) Lower Body Dressing(FIM): 6 Lower Body Dressing (QC): 6 On/Off Footwear (QC): 6 Toileting(FIM): 5 Toileting Hygiene (QC): 6 Transfers (B,C,W/C) (FIM): 6 Toilet/Commode Transfer(FIM): 5 Toilet/Commode Transfer (QC): 4 Tub Transfer(FIM): 5 (met) Shower Transfer(FIM): 5 Additional Goals: 1-Demonstrate ADL Tasks, 2-Verbalize Understanding, 3- ImproveStrength/Jordy 1=Demonstrate adherence to instructed precautions during ADL tasks. 2=Patient will verbalize/demonstrate understanding of assistive devices/modifications for ADL. 3=Patient will improve strength/tolerance for activity to enable patient to perform ADL's. OT Education/Plan Problem List/Assessment Assessment: Decreased Activ Tolerance, Decreased UE Strength, Impaired Coordination, Impaired I ADL's, Impaired Self-Care Skills Discharge Recommendations Plan/Recommendations: Continue POC Treatment Plan/Plan of Care Treatment,Training & Education: Yes Patient would benefit from OT for education, treatment and training to promote independence in ADL's, mobility, safety and/or upper extremity function for ADL's. Plan of Care: ADL Retraining, Caregiver Training, Cognitive Retraining, Functional Mobility, Group Exercise/Act as Ind, UE Funct Exercise/Act, UE Neuromus Re-Ed/Coord Treatment Duration: Jan 09, 2019 Frequency: 5 times per week Estimated Hrs Per Day: 1 hour per day (1-1.5 hours per day) Agreement: Yes Rehab Potential: Fair Time/GCodes Start Time: 10:00 Stop Time: 11:15 Total Time Billed (hr/min): 75 Billed Treatment Time 1 ADL x3 (50), EX x2(25)= 75 JOANA MENDOZA OTR Jan 15, 2019 11:33
--- NOTE | 2019-01-15 14:33 | Speech Therapy Daily Note ---
Speech Daily Progress Note Subjective Date Seen by Provider: Jan 15, 2019 Time Seen by Provider: 00:30 The patient was resting in his recliner eating candy bars when I entered his room. Objective Patient completed a series of problem solving questions related to his return home with 90% given minimal cues. Assessment Assessment Current Status: Good Progress Treatment Plan Continue Plan of Care Communication Comprehension: 4 Expression: 5 Social Cognition Social Interaction: 6 Problem Solvin Memory: 4 Speech Short Term Goals Short Term Goals Short Term Goals 1) The patient will complete memory tasks at 90% or greater with minimal cues. 2) The patient will complete problem solving tasks at 90% or greater with minimal cues. 3) The patient will complete safety awareness tasks at 90% or greater with minimal cues. Speech Skilled Nursing Goals Skilled Nursing Goals The patient will improve cognitive level of function so that he may return home safely. Speech-Plan Patient/Family Goals Patient/Family Goals: The patient plans to return home with his post rehab. He will receive home health services as needed. Treatment Plan Speech Therapy Treatment Plan: Continue Plan of Care The patient has made good progress as a result of skilled ST services. Treatment Duration: Jan 19, 2019 Frequency: 5 times per week Estimated Hrs Per Day: .5 hour per day Rehab Potential: Fair Barriers to Learning: Patient has mild cognitive deficits, however these appear to be resolving. Pt/Family Agrees to Plan: Yes Safety Risks/Education Teaching Recipient: Patient Teaching Methods: Demonstration, Discussion Response to Teaching: Verbalize Understanding, Return Demonstration Education Topics Provided: Continued safety within his room and upon his discharge to home. Time Speech Therapy Time In: 11:15 Speech Therapy Time Out: 11:45 Total Billed Time: 30 Billed Treatment Time 1KRISTAN BETH[address] ST Jan 15, 2019 14:33
--- NOTE | 2019-01-15 14:56 | Physical Therapy Daily Note ---
PT Daily Note-Current Subjective Pt agreeable to PT. Reports he is tired this afternoon. Reports he worked hard wit therapy this morning. Mental Status Patient Orientation: Person, Place, Time, Situation Transfers Therapy Code Descriptions/Definitions Functional [place] Measure: 0=Not Assessed/NA 4=Minimal Assistance 1=Total Assistance 5=Supervision or Setup 2=Maximal Assistance 6=Modified [place] 3=Moderate Assistance 7=Complete [place] Therapy Quality Codes: 6 Independent with activity with or without an assistive device 5 Patient requires set up or clean up by helper. Patient completes activity by themselves 4 Supervision or touching assist (CGA). [place] provide cues , steadying assist 3 The helper provides less than half the effort to complete the activity 2 The helper provides more than half the effort to complete the activity 1 Dependent. The helper does all the effort to complete an activity 7 Patient refused to complete or attempt activity 9 The patient did not perform the activity before the current illness or injury 88 Not attempted due to Medical conditions or safety concerns Transfers (B, C, W/C) (FIM): 4 Supine to/from Sit: 5 Sit to/from Stand: 4 (CGa for safety with intermittent reminders for safety and sequencing. ) Weight Bearing Right Lower Extremity: Right Weight Bearing/Tolerated Left Lower Extremity: Left Weight Bearing/Tolerated Gait Training Gait (FIM): 4 Distance (FIM): 3=150 ft Distance: 150 ft x 4 reps Gait Assistive Device: FWW unsteady gait at times with narrow ROHAN and decreased step length. Pt had 1 LOB episode with turning and required rigid assist to recover. Worked on upright posture, step length and safety. CGA for safety throughout. Exercises Pt was very stiff with initial activity, completed U/LE reciprocal movment x 15 mintues to promote improved posture and gait, which it did improve. Assessment Current Status: Good Progress Pt continues to require CGA for safety and intermittent cues for sequencing with transfers. PT Short Term Goals Short Term Goals Transfers (B,C,W/C) (FIM): 5 (met- SBA) PT Formulation Scientist Goals Formulation Scientist Goals PT Senior Care Goals Time Frame: Feb 03, 2019 Transfers (B,C,W/C) (FIM): 6 Sit to Lying (QC): 6 Lying-Sitting on Side/Bed(QC): 6 Sit to Stand (QC): 6 Rollin Roll Left to Right (QC): 6 Chair/Qfo-np-Wzbmp Xfer(QC): 6 Car Transfer (QC): 6 Does the Patient Walk: Yes Gait (FIM): 6 Gait distance (FIM): 3=150 ft Distance: 250' Walk 10 feet (QC): 6 Walk 10ft-Uneven Surface(QC): 6 Walk 50ft with 2 Turns (QC): 6 Walk 150 ft (QC): 6 Gait Level of Assist: 6 Gait Assistive Device: FWW Stairs (FIM): 2 # of Steps: 4 1 Step (curb) (QC): 6 4 Steps (QC): 6 12 Steps (QC): 9 Stairs Level Of Assist: 6 Picking up an Object (QC): 6 PT Plan Problem List Problem List: Activity Tolerance, Functional Strength, Safety Treatment/Plan Treatment Plan: Continue Plan of Care Treatment Plan: Bed Mobility, Education, Functional Activity Jordy, Functional Strength, Group Therapy, Gait, Safety, Therapeutic Exercise, Transfers Treatment Duration: Feb 03, 2019 Frequency: At least 5 of 7 days/Wk (IRF) Estimated Hrs Per Day: 1.5 hours per day Patient and/or Family Agrees t: Yes Safety Risks/Education Patient Education: Transfer Techniques, Safety Issues Teaching Recipient: Patient Teaching Methods: Demonstration, Discussion Response to Teaching: Return Demonstration, Reinforcement Needed Discharge Recommendations Therapy Discharge Recommendati: Post Acute PT Time/GCodes Time In: 1300 Time Out: 1330 Total Billed Treatment Time: 30 Total Billed Treatment visit EX 15 GT 15 GEOVANI BRIGHT PT Jan 15, 2019 14:56
[2019-01-15 15:50] VITALS: BP 165/76
[2019-01-15] MEDS: MONTELUKAST 10 MG (SINGULAIR) TAB PO SCH (20:51)
[2019-01-15] MEDS: rOPINIRole 0.25 MG (REQUIP) TAB PO PRN (20:51)
[2019-01-16 06:00] VITALS: BP 168/82
[2019-01-16] MEDS: CATHETER FLUSH 10 ML SYR IV SCH ×3 (06:15→20:29)
[2019-01-16] MEDS: FOLIC ACID 1 MG TAB PO SCH (06:16)
[2019-01-16] MEDS: MULTIVIT W/MINERALS TAB (THERAGRAN M) PO SCH (06:16)
[2019-01-16 06:30] LABS: BASOPHILS % (AUTO) 0 % (0-10); EOSINOPHILS # (AUTO) 0.2 10^3/uL (0.0-0.3); EOSINOPHILS % (AUTO) 1 % (0-10); HEMATOCRIT 30 % (40-54); HEMOGLOBIN 9.9 G/DL (13.3-17.7); LYMPHOCYTES # (AUTO) 1.2 X 10^3 (1.0-4.0); LYMPHOCYTES % (AUTO) 11 % (12-44); MEAN CORPUSCULAR HEMOGLOBIN 35 PG (25-34); MEAN CORPUSCULAR HGB CONC 33 G/DL (32-36); MEAN CORPUSCULAR VOLUME 107 FL (80-99); MEAN PLATELET VOLUME 9.4 FL (7.4-10.4); MONOCYTES # (AUTO) 0.8 X 10^3 (0.0-1.0); MONOCYTES % (AUTO) 8 % (0-12); NEUTROPHILS # (AUTO) 8.5 X 10^3 (1.8-7.8); NEUTROPHILS % (AUTO) 80 % (42-75); PLATELET COUNT 344 10^3/uL (130-400); RED CELL DISTRIBUTION WIDTH 15.5 % (10.0-14.5); WHITE BLOOD COUNT 10.6 10^3/uL (4.3-11.0)
[2019-01-16 06:47] LABS: BUN/CREATININE RATIO 10; CALCIUM 8.2 MG/DL (8.5-10.1); CARBON DIOXIDE 26 MMOL/L (21-32); CHLORIDE 107 MMOL/L (98-107); GFR ESTIMATED > 60; GLUCOSE 108 MG/DL (70-105); MAGNESIUM 1.8 MG/DL (1.6-2.4); POTASSIUM 3.8 MMOL/L (3.6-5.0); SODIUM 140 MMOL/L (135-145)
[2019-01-16] MEDS ORDERED: predniSONE 20 MG TAB PO SCH (07:00)
[2019-01-16] MEDS: amLODIPine 5 MG (NORVASC) TAB PO SCH (09:44)
[2019-01-16] MEDS: LOSARTAN 100 MG (COZAAR) TABLET PO SCH (09:44)
[2019-01-16] MEDS: meTOprolol SUCCINATE 100 MG (TOPROL XL) TAB PO SCH ×2 (09:44→20:28)
[2019-01-16] MEDS: PANTOPRAZOLE 20 MG TABLET (PROTONIX) PO SCH (09:44)
[2019-01-16] MEDS: ASPIRIN 81 MG CHEW (CHILDREN'S ASA) PO SCH (09:44)
[2019-01-16] MEDS: APIXABAN 2.5 MG (ELIQUIS) TABLET PO SCH ×2 (09:44→20:28)
[2019-01-16] MEDS: KCL 10 MEQ TAB (MICRO K) PO SCH (09:44)
[2019-01-16] MEDS: LORATADINE (CLARITIN) 10 MG TAB PO SCH (09:44)
[2019-01-16] MEDS: lisINopril 20 MG (PRINIVIL) TABLET PO SCH (09:45)
[2019-01-16] MEDS: FUROSEMIDE 40 MG (LASIX) TAB PO SCH (09:45)
--- NOTE | 2019-01-16 09:56 | Physical Therapy Daily Note ---
PT Daily Note-Current Subjective Patient in chair pre tx, agrees to PT, no complaints of pain. Appearance Patient in recliner post tx with nurse call, phone, tray, all needs met. Mental Status Patient Orientation: Normal For Age Transfers Therapy Code Descriptions/Definitions Functional [place] Measure: 0=Not Assessed/NA 4=Minimal Assistance 1=Total Assistance 5=Supervision or Setup 2=Maximal Assistance 6=Modified [place] 3=Moderate Assistance 7=Complete [place] Therapy Quality Codes: 6 Independent with activity with or without an assistive device 5 Patient requires set up or clean up by helper. Patient completes activity by themselves 4 Supervision or touching assist (CGA). [place] provide cues , steadying assist 3 The helper provides less than half the effort to complete the activity 2 The helper provides more than half the effort to complete the activity 1 Dependent. The helper does all the effort to complete an activity 7 Patient refused to complete or attempt activity 9 The patient did not perform the activity before the current illness or injury 88 Not attempted due to Medical conditions or safety concerns Transfers (B, C, W/C) (FIM): 5 Sit to/from Stand: 5 Bed to/from Chair: 5 Some difficulty standing from lower surfaces but can do it without assist. Weight Bearing Right Lower Extremity: Right Weight Bearing/Tolerated Left Lower Extremity: Left Weight Bearing/Tolerated Gait Training Gait (FIM): 5 Distance: 150', 120' Gait Level of Assist: 5 Gait Persons Needed: 1 Gait Assistive Device: FWW Very slow ambulation, occasional moments of unsteadiness but no LOB Exercises Standing: Hip Abduction, Heel/toe raises, Marching, Mini squats Standing Reps: 15 LAQ alternating for 5 min NuStep Minutes: 15 NuStep Workload: 4 Treatments LE exercise, ambulation, transfers Assessment Current Status: Fair Progress improving endurance, less SOB during activity PT Short Term Goals Short Term Goals Transfers (B,C,W/C) (FIM): 5 (met- SBA) PT Pan Washer Goals Pan Washer Goals PT Custodial Goals Time Frame: Feb 03, 2019 Transfers (B,C,W/C) (FIM): 6 Sit to Lying (QC): 6 Lying-Sitting on Side/Bed(QC): 6 Sit to Stand (QC): 6 Rollin Roll Left to Right (QC): 6 Chair/Yvd-og-Ecfdo Xfer(QC): 6 Car Transfer (QC): 6 Does the Patient Walk: Yes Gait (FIM): 6 Gait distance (FIM): 3=150 ft Distance: 250' Walk 10 feet (QC): 6 Walk 10ft-Uneven Surface(QC): 6 Walk 50ft with 2 Turns (QC): 6 Walk 150 ft (QC): 6 Gait Level of Assist: 6 Gait Assistive Device: FWW Stairs (FIM): 2 # of Steps: 4 1 Step (curb) (QC): 6 4 Steps (QC): 6 12 Steps (QC): 9 Stairs Level Of Assist: 6 Picking up an Object (QC): 6 PT Plan Problem List Problem List: Activity Tolerance, Functional Strength, Safety, Balance, Gait, Transfer, Bed Mobility Treatment/Plan Treatment Plan: Continue Plan of Care Treatment Plan: Bed Mobility, Education, Functional Activity Jordy, Functional Strength, Group Therapy, Gait, Safety, Therapeutic Exercise, Transfers Treatment Duration: Feb 03, 2019 Frequency: At least 5 of 7 days/Wk (IRF) Estimated Hrs Per Day: 1.5 hours per day Patient and/or Family Agrees t: Yes Safety Risks/Education Patient Education: Gait Training, Transfer Techniques, Correct Positioning, Safety Issues Teaching Recipient: Patient Teaching Methods: Demonstration, Discussion Response to Teaching: Reinforcement Needed Time/GCodes Time In: 0900 Time Out: 1000 Total Billed Treatment Time: 60 Total Billed Treatment 1 visit EX 30' GT 30' STACY LOPEZ PT Jan 16, 2019 09:56
--- NOTE | 2019-01-16 10:00 | PM&R Progress Note ---
Subjective HPI/CC On Admission Date Seen by Provider: Jan 16, 2019 Time Seen by Provider: 09:00 CC: Debility from alcoholism and altered mental status HPI: This is a 73yoWM who was admitted nearly a week ago of Dr. Macias's who presented with altered mental status found to have significant alcohol withdrawal of which his was unaware that he was drinking alcohol but he was provided supportive care and subsequently has become quite debilitated overall. Smoking cessation has been counseled along with alcohol cessation. 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 He does report that he is needing to cut down on his alcohol. At this current time pt denies any significant pain, meds were reviewed, and will be continued on inpatient rehab. He has become incontinent and is need of further recovery before DC is planned. HPI per ELMER Martinez Sebastien Toledo is a 73-year-old male with past medical history of hypertension, coronary artery disease, GERD, and ETOH abuse who was recently admitted for AMS; his hospital stay was complicated by alcohol withdrawal. 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 CVA was suspected but ruled out via CT and clinical picture which was more consistent with ETOH withdrawal rather than CT. No MRI was done. Alcohol abuse was managed via activating CIWA protocol, giving thiamine and Folic acid. Pt was recently diagnosed with Paroxysmal Afib and was followed by Cardiology who ordered an Echo and started him on Eliquis. Pt's last stay also involved Macrocytic anemia which required transfusions and continued tx with folic acid. After pt was stabilized he was transitioned to inpatient rehabilitation on 01/08/19. I was consult for evaluation of restless leg symptoms. Patient reports last couple of evenings beginning shortly after getting into bed he will develop uncomfortable sensation in his legs that is only alleviated by moving them. He's had this in the past and I have not prescribed medication for him but his had either Mirapex her ropinirole he has taken her medication with release of his symptoms. He does have anemia with a low folate level that is macrocytic that with a history of esophagitis poor nutritional status from alcoholism iron deficiency is highly likely as well. He denies melena or bright red blood per rectum and denies abdominal pain. He is back to baseline mental status after b eing admitted with altered mental status and delirium. This is likely due to alcohol withdrawal. Subjective/Events-last exam Potassium 3.8. Decreasing Prednisone to 20 Mg daily. Urine odor is still very strong. Bowel are moving. No pain reported. Overall improving. Conferred with RN. Reviewed therapy notes. Checked meds and labs. Review of Systems General: Fatigue Pulmonary: Cough Objective Exam Vital Signs Vital Signs Date Time Temp Pulse Resp B/P (MAP) Pulse Ox O2 Delivery O2 Flow Rate FiO2 01/16/19 19:42 Room Air 01/16/19 17:19 36.7 85 18 170/86 (114) 98 Capillary Refill : General Appearance: No Apparent Distress, WD/WN, Chronically ill HEENT: PERRL/EOMI, Normal ENT Inspection, Pharynx Normal, Moist Mucous Membranes Neck: Full Range of Motion, Normal Inspection, Non Tender, Supple Respiratory: Chest Non Tender, Lungs Clear, Normal Breath Sounds, No Accessory Muscle Use, No Respiratory Distress Cardiovascular: Regular Rate, Rhythm, No Edema, No Gallop, No JVD, No Murmur Gastrointestinal: Normal Bowel Sounds, No Organomegaly, No Pulsatile Mass, Non Tender, Soft Back: Normal Inspection, No CVA Tenderness, No Vertebral Tenderness Extremity: Normal Capillary Refill, Normal Inspection, Normal Range of Motion, Non Tender, No Calf Tenderness, No Pedal Edema Neurologic/Psychiatric: Alert, Oriented x3, No Motor/Sensory Deficits, Normal Mood/Affect, Disoriented Skin: Normal Color, Warm/Dry Lymphatic: No Adenopathy Results/Procedures Lab Laboratory Tests 01/16/19 06:20 Patient resulted labs reviewed. FIM Transfers Therapy Code Descriptions/Definitions Functional [place] Measure: 0=Not Assessed/NA 4=Minimal Assistance 1=Total Assistance 5=Supervision or Setup 2=Maximal Assistance 6=Modified [place] 3=Moderate Assistance 7=Complete Angela Therapy Quality Codes: 6 Independent with activity with or without an assistive device 5 Patient requires set up or clean up by helper. Patient completes activity by themselves 4 Supervision or touching assist (CGA). [place] provide cues , steadying assist 3 The helper provides less than half the effort to complete the activity 2 The helper provides more than half the effort to complete the activity 1 Dependent. The helper does all the effort to complete an activity 7 Patient refused to complete or attempt activity 9 The patient did not perform the activity before the current illness or injury 88 Not attempted due to Medical conditions or safety concerns Transfers (B, C, W/C) (FIM): 5 Scootin Rollin Roll Left to Right (QC): 5 Supine to/from Sit: 5 Sit to/from Stand: 5 Sit to Lying (QC): 5 Sit to Stand (QC): 4 Chair/Tet-zb-Khjhu Xfer(QC): 4 Bed to/from Chair: 5 Car Transfer (QC): 5 Gait Training Does the Patient Walk?: Yes Gait (FIM): 5 Distance (FIM): 3=150 ft Distance: 150', 120' Walk 10 feet (QC): 4 Walk 50 ft with 2 Turns(QC): 4 Walk 150 ft (QC): 4 Walking 10ft/uneven surface-QC: 4 Gait Level of Assist: 5 Gait Persons Needed: 1 Gait Assistive Device: FWW Wheelchair Training Does the Pt Use a Wheelchair?: No Stair Training Stairs (FIM): 1 #of Steps: 1 1 Step (curb) (QC): 4 4 Steps (QC): 9 12 Steps (QC): 9 Level of Assist: 4 Mental Status/Objective Comprehension: 4 Expression: 5 Social Interaction: 6 Problem Solvin Memory: 4 ADL-Treatment Feedin Eating (QC): 6 Groomin (SUP for oral hygiene at sink for safety) Oral Hygiene (QC): 4 (SUP) Bathin (SUP during seated washingPt requires SBA for safety while in standing during hyacinth hygiene. Pt completes with good safety awareness and planning.) Shower/Bathe Self (QC): 4 (SUP) Upper Extremity Dressin (Completes on shower chair.) Upper Body Dressing (QC): 6 Lower Extremity Dressin (Touching assist in standing. Pt desires to use cotton underwear rather than breifs on this date. Pt required assist with gu iding L leg through due to different material, utilized juvenile probation officer. ) Lower Body Dressing (QC): 3 On/Off Footwear (QC): 6 (mod I use of shoe horn.) Toiletin (CGA in stance during hygiene. Pt completes with increased time and verbalizations during wiping as he is uncomfortable. Pt requires cues to pull up both sides of breifs.) Toileting Hygiene (QC): 4 (CGA during stance.) Toilet/Commode Transfer: 4 (CGA due to weakness.) Toilet Transfer (QC): 4 (CGA) Tub: 5 (SBA) Assessment/Plan Assessment and Plan Assess & Plan/Chief Complaint Plan: IRF protocol Supportive care Delirium monitoring ETOH cessation Hold laxatives until needed RLS per PCP consultation Nebs to maintain when necessary Ativan as needed Monitor urinary system Eliquis and aspirin restarted per cardiology Decrease steroid dose to 10mg Labs reviewed (1) Debility Status: Acute (2) Hypokalemia Status: Acute (3) Folate deficiency Status: Acute (4) Pancytopenia Status: Acute (5) Interstitial lung disease Status: Chronic (6) Weight loss, unintentional Status: Chronic (7) CAD (coronary artery disease) Status: Chronic Qualifiers: Coronary Disease-Associated Artery/Lesion type: [place] artery [place] vs. transplanted heart: [place] heart Associated angina: without angina Qualified Codes: I25.10 - Atherosclerotic heart disease of [place] coronary artery without angina pectoris (8) HTN (hypertension) Status: Chronic Qualifiers: Hypertension type: essential hypertension Qualified Codes: I10 - Essential (primary) hypertension (9) Nausea & vomiting Status: Acute Qualifiers: Vomiting type: unspecified (10) Atrial fibrillation with rapid ventricular response Status: Acute (11) Hypomagnesemia Status: Acute (12) Vertebral artery occlusion Status: Chronic Qualifiers: Laterality: unspecified laterality Qualified Codes: I65.09 - Occlusion and stenosis of unspecified vertebral artery (13) Aphasia Status: Acute (14) Altered mental status Status: Resolved Resolution Date/Time: 01/07/19 @ 11:56 (15) Alcohol dependence Status: Resolved Resolution Date/Time: 01/07/19 @ 11:56 Qualifiers: 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
--- NOTE | 2019-01-16 10:54 | Occupational Ther Daily Note ---
OT Current Status-Daily Note Subjective Pt seen in bed, tray/ food in front of pt. Pt completed eating. Pt agreeable to OT tx session, stating no pain. Mental Status/Objective Patient Orientation: Normal For Age Therapy Code Descriptions/Definitions Functional [place] Measure: 0=Not Assessed/NA 4=Minimal Assistance 1=Total Assistance 5=Supervision or Setup 2=Maximal Assistance 6=Modified [place] 3=Moderate Assistance 7=Complete [place] ADL-Treatment Therapy Code Descriptions/Definitions Functional [place] Measure: 0=Not Assessed/NA 4=Minimal Assistance 1=Total Assistance 5=Supervision or Setup 2=Maximal Assistance 6=Modified [place] 3=Moderate Assistance 7=Complete [place] Therapy Quality Codes: 6 Independent with activity with or without an assistive device 5 Patient requires set up or clean up by helper. Patient completes activity by themselves 4 Supervision or touching assist (CGA). [place] provide cues , steadying assist 3 The helper provides less than half the effort to complete the activity 2 The helper provides more than half the effort to complete the activity 1 Dependent. The helper does all the effort to complete an activity 7 Patient refused to complete or attempt activity 9 The patient did not perform the activity before the current illness or injury 88 Not attempted due to Medical conditions or safety concerns Eating (FIM): 7 Eating (QC): 6 On/Off Footwear (QC): 6 (shoe horn, EOB) Transfers (B, C, W/C) (FIM): 5 (SBA) Other Treatment Pt bed mob with SBA. Pt completes sit to stand from EOB with SBA. Pt ambulates with no rest breaks to therapy gym. Pt completes cognitive/ fine motor pincer game, requires cues for setting up game after directions are read. Pt gathers correct number of game pieces and sorts out. Pt unable to state game rules or purpose. Pt educated on game rules and purpose, sample given prior to game starting. Pt able to complete game with increased trials and positioning of UE for pinching tasks. Pt demonstrated over-shooting target 3 times before self correcting and placing pin in correct position. Pt completes game while in standing for 8 minutes, no SOB or fatigue noted. Pt cleans game and completes in sitting, no cues required for second game. Pt demonstrates pincher fatigue of R hand, requiring L hand assist. Pt completes 3 pins with L hand, then requires rest break for L hand. Pt completes arm bike with no breaks for 11 minutes, no SOB but requires rest before standing. Pt sit to stand with SBA, sits in lobby area to drink coffee, able to manipulate sugar packets with increased time and one instance of dropping. Nursing and therapy members present at end of session. Education OT Patient Education: Correct positioning, Energy conservation, Exercise program, Modified ADL techniques, Purpose of tx/functional activities, Rehab process, Safety issues, Transfer techniques Teaching Recipient: Patient Teaching Methods: Demonstration, Discussion Response to Teaching: Verbalize Understanding, Return Demonstration OT Short Term Goals Short Term Goals Upper Body Dressing(FIM): 6 (met) Lower Body Dressing(FIM): 3 (met) Transfers (B,C,W/C) (FIM): 5 (met- SBA) 1=Demonstrate adherence to instructed precautions during ADL tasks. 2=Patient will verbalize/demonstrate understanding of assistive devices/modifications for ADL. 3=Patient will improve strength/tolerance for activity to enable patient to perform ADL's. OT Penitentiary Goals Casino Surveillance Officer Goals Eating (FIM): 7 (met) Eating (QC): 6 (met) Groomin Oral Hygiene (QC): 6 Bathing(FIM): 6 Shower/Bathe Self (QC): 6 Upper Body Dressing(FIM): 6 (met) Upper Body Dressing (QC): 6 (met) Lower Body Dressing(FIM): 6 Lower Body Dressing (QC): 6 On/Off Footwear (QC): 6 Toileting(FIM): 5 Toileting Hygiene (QC): 6 Transfers (B,C,W/C) (FIM): 6 Toilet/Commode Transfer(FIM): 5 Toilet/Commode Transfer (QC): 4 Tub Transfer(FIM): 5 (met) Shower Transfer(FIM): 5 Additional Goals: 1-Demonstrate ADL Tasks, 2-Verbalize Understanding, 3- ImproveStrength/Jordy 1=Demonstrate adherence to instructed precautions during ADL tasks. 2=Patient will verbalize/demonstrate understanding of assistive devices/modifications for ADL. 3=Patient will improve strength/tolerance for activity to enable patient to perform ADL's. OT Education/Plan Problem List/Assessment Assessment: Decreased Activ Tolerance, Decreased UE Strength, Impaired I ADL's, Impaired Self-Care Skills Discharge Recommendations Plan/Recommendations: Continue POC Treatment Plan/Plan of Care Treatment,Training & Education: Yes Patient would benefit from OT for education, treatment and training to promote independence in ADL's, mobility, safety and/or upper extremity function for ADL's. Plan of Care: ADL Retraining, Caregiver Training, Cognitive Retraining, Functional Mobility, Group Exercise/Act as Ind, UE Funct Exercise/Act, UE Neuromus Re-Ed/Coord Treatment Duration: Jan 09, 2019 Frequency: 5 times per week Estimated Hrs Per Day: 1 hour per day (1-1.5 hours per day) Agreement: Yes Rehab Potential: Fair Time/GCodes Start Time: 08:00 Stop Time: 09:00 Total Time Billed (hr/min): 60 Billed Treatment Time 1 EX 2 (30), FA 2 (30)= 60 JOANA MENDOZA OTR Jan 16, 2019 10:54
--- NOTE | 2019-01-16 11:06 | Progress Note - Cardiology ---
Cardiology SOAP Progress Note Subjective: Sitting up in a chair at the bedside. States he is "tired" this morning. No c/o CP, palpitations, syncope, near syncope or dyspnea. Objective: I&O/Vital Signs 01/16/19 01/16/19 01/16/19 06:00 07:19 08:10 Temp 36.4 Pulse 83 Resp 18 B/P (MAP) 168/82 (110) Pulse Ox 93 95 O2 Delivery Room Air Room Air Room Air 01/16/19 00:00 Intake Total 1000 ml Output Total 250 ml Balance 750 ml Weight (Pounds): 191 Weight (Ounces): 0.0 Weight (Calculated Kilograms): 86.376023 Constitutional: AAO x 3, well-developed, well-nourished Respiratory: No accessory muscle use, No respiratory distress; chest expansion is symmetric, chest is bilaterally symmetric, rhonchi (scattered), other (prolonged expiratory phase) Cardiovascular: regular rate-rhythm; No JVD; S1 and S2, systolic murmur Gastrointestional: No tender; soft, audible bowel sounds Extremities: other (mild bilat LE swelling) Neurologic/Psychiatric: grossly intact Skin: No rash on exposed areas, No ulcerations on exposed areas; other (multiple bruises to arms/legs bilat with abrasions; drsg to left elbow D&I) Results/Procedures: Labs Laboratory Tests 01/16/19 06:20: White Blood Count 10.6, Red Blood Count 2.83L, Hemoglobin 9.9L, Hematocrit 30L, Mean Corpuscular Volume 107H, Mean Corpuscular Hemoglobin 35H, Mean Corpuscular Hemoglobin Concent 33, Red Cell Distribution Width 15.5H, Platelet Count 344, Mean Platelet Volume 9.4, Neutrophils (%) (Auto) 80H, Lymphocytes (%) (Auto) 11L , Monocytes (%) (Auto) 8, Eosinophils (%) (Auto) 1, Basophils (%) (Auto) 0, Neutrophils # (Auto) 8.5H, Lymphocytes # (Auto) 1.2, Monocytes # (Auto) 0.8, Eosinophils # (Auto) 0.2, Basophils # (Auto) 0.0, Sodium Level 140, Potassium Level 3.8, Chloride Level 107, Carbon Dioxide Level 26, Anion Gap 7, Blood Urea Nitrogen 9, Creatinine 0.90, Estimat Glomerular Filtration Rate > 60, BUN/Creatinine Ratio 10, Glucose Level 108H, Calcium Level 8.2L, Magnesium Level 1.8 Laboratory Tests 01/15/19 05:22 01/16/19 06:20 A/P: Assessment: Bruising and oozing of bleed from iv sites and from minor injuries, improving AMS of undetermined etiology, probably related to alcohol withdrawal, managed by the Hospitalist Svce - improved PAF Anemia of undetermined etiology - being managed the Hospitalist/Medical Svce H/o mild to mod pancytopenia being during admission of Dec 23-Dec 4 OAC with Eliquis Upper and lower endoscopy of 12-27-[address] Montejo showed esophagitis; internal /external hemorrhoids Complete occlusion beginning at the origin of the cervical right vertebral ar mary which is reconstituted at the C2 vertebral body level by neck vascular structures. This is of unknown age. There is mild to moderate narrowing of the proximal basilar artery. Per CTA of 01-02-19 Recent weight loss of approx 30 lbs of undetermined etiology CAD - Cardiac cath of 09/19/18 showed patent RCA stents that were place in Apr 2016: Alpine Xience 3.5 x 15 mm prox and Alpine Xience 3.0 x 15 mm distally, postdilated with a 3.5 mm balloon, The rest of the vessels have diffuse, mod disease. LVEF 50-55%. Normal LVEDP Echocardiogram of December 24, [address] Jimenez concentric hypertrophy. LVEF 45-50%. Grade 1 diastolic dysfunction. AoV thickening consistent with sclerosis with mild regurg. PASP 15-20mmHg. Severe ostial left renal artery stenosis with subsequent percutaneous transluminal angioplasty and residual minimal stenosis, no dissection or distal embolization by Dr. Keen at [facility] in [place], [place] in the early CT of the chest from August 2016 showed borderline adenopathy in the axillary regions and in the subcarinal space. 7 mm pulmonary nodule in the RUL. This is followed by Dr Toya MENDOZA, treated with CPAP, followed by Dr Pittman Mild carotid arterial disease on carotid u/s of 09/21/18 PAD - PCI of the right anterior tibial, posterior tibial and peroneal with Medtronic Nitinol 4mm x 20mm stent in the right posterior tibial December 08, [address] Langston in [place], [place]. Peripheral angio of 09/19/18: Infrarenal AAA, mod in size, just above aorto iliac bifurcation; mod diff disease of the sup fems and distal leg circulation on both sides. Patent R post tib stent Hypertension HLP - statin therapy followed by his PCP - currently being withheld d/t recent episode of pancreatitis Emphysema GERD H/o pancreatitis in the past - managed by PCP EKG of 11-03-15 showed LVH with repolarization abnormality and LAFB; not significantly changed on 09/13/18 CKD stage 2-3 H/o heavy ETOH use Tobaccoism - 2 PPD Plan: * Continue Low-dose apixaban * Monitor labs Physician Assessment Physician Assessment Reports gen weakness. No cp or palp or syncope or shortness of breath Lungs: clear Cor: irreg Ext: no c/c/e A&R * As documented in our note above that I updated (italics) and as noted below * I discussed his CV issues with him and his * Continue current regimen * Monitor labs BARNEY KINSEY MAKE UP EDITOR Jan 16, 2019 11:06 DAGO RAPHAEL MD FACP FAC CCDS Jan 16, 2019 13:41
--- NOTE | 2019-01-16 11:45 | Speech Therapy Daily Note ---
Speech Daily Progress Note Subjective Date Seen by Provider: Jan 16, 2019 Time Seen by Provider: 00:30 Patient was resting in his recliner when I entered his room. He stated he was cold so I got him a warm blanket. Objective The patient completed a series of "what's wrong with this picture" cards related to safety which he completed at 90% with minimal cues. Treatment Plan Discontinue ST, Goals Met Communication Comprehension: 7 Expression: 7 Social Cognition Social Interaction: 7 Problem Solvin Memory: 7 Speech Short Term Goals Short Term Goals Short Term Goals 1) The patient will complete memory tasks at 90% or greater with minimal cues. 2) The patient will complete problem solving tasks at 90% or greater with minimal cues. 3) The patient will complete safety awareness tasks at 90% or greater with minimal cues. Speech [facility]ci Goals Magazine Editor Goals The patient will improve cognitive level of function so that he may return home safely. Speech-Plan Patient/Family Goals Patient/Family Goals: The patient plans on returning home with his post rehab. Treatment Plan Speech Therapy Treatment Plan: Discontinue ST, Goals Met Patient will be discharged this date from due to patient's insisting he doesn't need speech services. Treatment Duration: Jan 16, 2019 Frequency: 5 times per week Estimated Hrs Per Day: .5 hour per day Rehab Potential: Fair Barriers to Learning: Mild cognitive deficits, which appear to be resolving. Pt/Family Agrees to Plan: Yes Safety Risks/Education Teaching Recipient: Patient Teaching Methods: Demonstration, Discussion Response to Teaching: Verbalize Understanding, Return Demonstration Education Topics Provided: Continued safety upon his return home. Time Speech Therapy Time In: 11:00 Speech Therapy Time Out: 11:30 Total Billed Time: 30 Billed Treatment Time 1, RAISSA Lam Jan 16, 2019 11:45
--- NOTE | 2019-01-16 11:46 | Physical Therapy Daily Note ---
PT Daily Note-Current Subjective Patient in recliner pre tx, agrees to PT, no complaints of pain. Patient needs to use the restroom, he can urinate with SBA in the toilet. Appearance Patient in recliner post tx with nurse call, phone, tray, all needs met. Mental Status Patient Orientation: Normal For Age Transfers Therapy Code Descriptions/Definitions Functional [place] Measure: 0=Not Assessed/NA 4=Minimal Assistance 1=Total Assistance 5=Supervision or Setup 2=Maximal Assistance 6=Modified [place] 3=Moderate Assistance 7=Complete [place] Therapy Quality Codes: 6 Independent with activity with or without an assistive device 5 Patient requires set up or clean up by helper. Patient completes activity by themselves 4 Supervision or touching assist (CGA). [place] provide cues , steadying assist 3 The helper provides less than half the effort to complete the activity 2 The helper provides more than half the effort to complete the activity 1 Dependent. The helper does all the effort to complete an activity 7 Patient refused to complete or attempt activity 9 The patient did not perform the activity before the current illness or inj ury 88 Not attempted due to Medical conditions or safety concerns Transfers (B, C, W/C) (FIM): 5 Sit to/from Stand: 5 Bed to/from Chair: 5 Weight Bearing Right Lower Extremity: Right Weight Bearing/Tolerated Left Lower Extremity: Left Weight Bearing/Tolerated Gait Training Gait (FIM): 2 Distance: 120'x2 Gait Level of Assist: 5 Gait Assistive Device: FWW slow but steady ambulation, fatigues and get SOB with activity Treatments transfers, ambulation, toileting Assessment Current Status: Fair Progress slowly improving endurance PT Short Term Goals Short Term Goals Transfers (B,C,W/C) (FIM): 5 (met- SBA) PT Usp Goals Game Designer Goals PT Usp Goals Time Frame: Feb 03, 2019 Transfers (B,C,W/C) (FIM): 6 Sit to Lying (QC): 6 Lying-Sitting on Side/Bed(QC): 6 Sit to Stand (QC): 6 Rollin Roll Left to Right (QC): 6 Chair/Kyw-nf-Wvpin Xfer(QC): 6 Car Transfer (QC): 6 Does the Patient Walk: Yes Gait (FIM): 6 Gait distance (FIM): 3=150 ft Distance: 250' Walk 10 feet (QC): 6 Walk 10ft-Uneven Surface(QC): 6 Walk 50ft with 2 Turns (QC): 6 Walk 150 ft (QC): 6 Gait Level of Assist: 6 Gait Assistive Device: FWW Stairs (FIM): 2 # of Steps: 4 1 Step (curb) (QC): 6 4 Steps (QC): 6 12 Steps (QC): 9 Stairs Level Of Assist: 6 Picking up an Object (QC): 6 PT Plan Problem List Problem List: Activity Tolerance, Functional Strength, Safety, Balance, Gait, Transfer, Bed Mobility Treatment/Plan Treatment Plan: Continue Plan of Care Treatment Plan: Bed Mobility, Education, Functional Activity Jordy, Functional Strength, Group Therapy, Gait, Safety, Therapeutic Exercise, Transfers Treatment Duration: Feb 03, 2019 Frequency: At least 5 of 7 days/Wk (IRF) Estimated Hrs Per Day: 1.5 hours per day Patient and/or Family Agrees t: Yes Safety Risks/Education Patient Education: Gait Training, Transfer Techniques, Correct Positioning, Safety Issues Teaching Recipient: Patient Teaching Methods: Demonstration, Discussion Response to Teaching: Reinforcement Needed Time/GCodes Time In: 1130 Time Out: 1145 Total Billed Treatment Time: 15 Total Billed Treatment 1 visit GT 15' STACY LOPEZ PT Jan 16, 2019 11:46
--- NOTE | 2019-01-16 11:48 | Therapy Team Discharge Summary ---
Therapy Discharge Summary Discharge Recommendations Date of Discharge Occupational Therapy Decreased Activ Tolerance, Decreased UE Strength, Impaired I ADL's, Impaired Self-Care Skills Speech-Language Pathology Patient will be discharged this date from due to patient's insisting he doesn't need speech services. PT Senior Care Goals Senior Care Goals PT Immigration Law Specialist Goals Time Frame: Feb 03, 2019 Transfers (B,C,W/C) (FIM): 6 Roll Left to Right (QC): 6 Sit to Lying (QC): 6 Lying-Sitting on Side/Bed(QC): 6 Sit to Stand (QC): 6 Chair/Vyn-ju-Rgqpb Xfer(QC): 6 Car Transfer (QC): 6 Does the Patient Walk: Yes Gait (FIM): 6 Gait distance (FIM): 3=150 ft Distance: 250' Walk 10 feet (QC): 6 Walk 10ft-Uneven Surface(QC): 6 Walk 50ft with 2 Turns (QC): 6 Walk 150 ft (QC): 6 Gait Level of Assist: 6 Gait Assistive Device: FWW Stairs (FIM): 2 # of Steps: 4 1 Step (curb) (QC): 6 4 Steps (QC): 6 12 Steps (QC): 9 Stairs Level Of Assist: 6 Picking up an Object (QC): 6 OT Immigration Law Specialist Goals Immigration Law Specialist Goals Eating (FIM): 7 (met) Eating (QC): 6 (met) Oral Hygiene (QC): 6 Grooming(FIM): 6 Bathing(FIM): 6 Shower/Bathe Self (QC): 6 Upper Body Dressing(FIM): 6 (met) Upper Body Dressing (QC): 6 (met) Lower Body Dressing(FIM): 6 Lower Body Dressing (QC): 6 On/Off Footwear (QC): 6 Toileting(FIM): 5 Toileting Hygiene (QC): 6 Transfers (B,C,W/C) (FIM): 6 Toilet/Commode Transfer(FIM): 5 Toilet/Commode Transfer (QC): 4 Tub Transfer(FIM): 5 (met) Shower Transfer(FIM): 5 Additional Goals: 1-Demonstrate ADL Tasks, 2-Verbalize Understanding, 3- ImproveStrength/Jordy 1=Demonstrate adherence to instructed precautions during ADL tasks. 2=Patient will verbalize/demonstrate understanding of assistive devices/modifications for ADL. 3=Patient will improve strength/tolerance for activity to enable patient to perform ADL's. Speech Senior Care Goals Senior Care Goals The patient will improve cognitive level of function so that he may return home safely. Met at 80% RAISSA CHANG Jan 16, 2019 11:48
--- NOTE | 2019-01-16 11:50 | Occupational Ther Daily Note ---
OT Current Status-Daily Note Subjective Pt seen in recliner chair, pt agreeable to OT tx session, stating he is tired and would like to remain seated for now. No c/o pain. Mental Status/Objective Patient Orientation: Normal For Age Therapy Code Descriptions/Definitions Functional [place] Measure: 0=Not Assessed/NA 4=Minimal Assistance 1=Total Assistance 5=Supervision or Setup 2=Maximal Assistance 6=Modified [place] 3=Moderate Assistance 7=Complete [place] ADL-Treatment Therapy Code Descriptions/Definitions Functional [place] Measure: 0=Not Assessed/NA 4=Minimal Assistance 1=Total Assistance 5=Supervision or Setup 2=Maximal Assistance 6=Modified [place] 3=Moderate Assistance 7=Complete [place] Therapy Quality Codes: 6 Independent with activity with or without an assistive device 5 Patient requires set up or clean up by helper. Patient completes activity by themselves 4 Supervision or touching assist (CGA). [place] provide cues , steadying assist 3 The helper provides less than half the effort to complete the activity 2 The helper provides more than half the effort to complete the activity 1 Dependent. The helper does all the effort to complete an activity 7 Patient refused to complete or attempt activity 9 The patient did not perform the activity before the current illness or injury 88 Not attempted due to Medical conditions or safety concerns Eating (FIM): 7 (Drinking from cup with IND) Eating (QC): 6 Grooming (FIM): 6 (Pt completes face washing seated in chair) Other Treatment Pt completes BUE theraband exercises seated in chair. Pt requires adapted theraband due to c/o pain in hands during gripping. Pt unable to follow HEP without demonstration/ cues. Pt completes 10 sets on BUE, focusing on diagonal patterns, internal/ external shoulder rotation, back flies, and tricep extensions. Pt completes with noted fatigue by end of 10 reps, requires breaks in between. Pt requires few cues to continue breathing throughout exercises. Pt completes hand steel spar operator/ pinch exercises with demonstration and only one instance of dropping with L hand. Pt educated on HEP. Pt left in room with all needs met and call light in reach. Education OT Patient Education: Correct positioning, Exercise program, Home exercise program, Purpose of tx/functional activities, Rehab process, Safety issues Teaching Recipient: Patient Teaching Methods: Demonstration, Handout, Discussion Response to Teaching: Verbalize Understanding, Return Demonstration OT Short Term Goals Short Term Goals Upper Body Dressing(FIM): 6 (met) Lower Body Dressing(FIM): 3 (met) Transfers (B,C,W/C) (FIM): 5 (met- SBA) 1=Demonstrate adherence to instructed precautions during ADL tasks. 2=Patient will verbalize/demonstrate understanding of assistive devices/modifications for ADL. 3=Patient will improve strength/tolerance for activity to enable patient to pe rform ADL's. OT Intermediate Goals Intermediate Goals Eating (FIM): 7 (met) Eating (QC): 6 (met) Groomin Oral Hygiene (QC): 6 Bathing(FIM): 6 Shower/Bathe Self (QC): 6 Upper Body Dressing(FIM): 6 (met) Upper Body Dressing (QC): 6 (met) Lower Body Dressing(FIM): 6 Lower Body Dressing (QC): 6 On/Off Footwear (QC): 6 Toileting(FIM): 5 Toileting Hygiene (QC): 6 Transfers (B,C,W/C) (FIM): 6 Toilet/Commode Transfer(FIM): 5 Toilet/Commode Transfer (QC): 4 Tub Transfer(FIM): 5 (met) Shower Transfer(FIM): 5 Additional Goals: 1-Demonstrate ADL Tasks, 2-Verbalize Understanding, 3-ImproveStrength/Jordy 1=Demonstrate adherence to instructed precautions during ADL tasks. 2=Patient will verbalize/demonstrate understanding of assistive devices/modifications for ADL. 3=Patient will improve strength/tolerance for activity to enable patient to per form ADL's. OT Education/Plan Problem List/Assessment Assessment: Decreased Activ Tolerance, Decreased UE Strength, Impaired Coordination, Impaired I ADL's, Impaired Self-Care Skills Discharge Recommendations Plan/Recommendations: Continue POC Treatment Plan/Plan of Care Treatment,Training & Education: Yes Patient would benefit from OT for education, treatment and training to promote independence in ADL's, mobility, safety and/or upper extremity function for ADL's. Plan of Care: ADL Retraining, Caregiver Training, Cognitive Retraining, Functional Mobility, Group Exercise/Act as Ind, UE Funct Exercise/Act, UE Neuromus Re-Ed/Coord Treatment Duration: Jan 09, 2019 Frequency: 5 times per week Estimated Hrs Per Day: 1 hour per day (1-1.5 hours per day) Agreement: Yes Rehab Potential: Fair Time/GCodes Start Time: 10:00 Stop Time: 10:15 Total Time Billed (hr/min): 15 Billed Treatment Time 1 EX (15) JOANA MENDOZA OTR Jan 16, 2019 11:50
--- NOTE | 2019-01-16 15:39 | NUR ---
Met briefly with patient and his . Patient reports feeling tired but that he feels therapy is going well. Reminded patient of weekly team conference to be held tomorrow and that this worker would discuss team's recommendations after the meeting tomorrow. Patient verbalizes understanding.
[2019-01-16 17:19] VITALS: BP 170/86
[2019-01-16] MEDS: MONTELUKAST 10 MG (SINGULAIR) TAB PO SCH (20:28)
[2019-01-16] MEDS: rOPINIRole 0.25 MG (REQUIP) TAB PO PRN (20:28)
[2019-01-17 05:08] VITALS: BP 168/82
[2019-01-17] MEDS: MULTIVIT W/MINERALS TAB (THERAGRAN M) PO SCH (06:00)
[2019-01-17] MEDS: FOLIC ACID 1 MG TAB PO SCH (06:00)
[2019-01-17] MEDS: CATHETER FLUSH 10 ML SYR IV SCH ×3 (06:00→20:06)
[2019-01-17] MEDS: predniSONE 20 MG TAB PO SCH (06:00)
--- NOTE | 2019-01-17 09:09 | Progress Note - Cardiology ---
Cardiology SOAP Progress Note Subjective: Up ambulating with PT Objective: I&O/Vital Signs 01/17/19 01/17/19 05:08 07:14 Temp 36.2 Pulse 75 Resp 20 B/P (MAP) 168/82 (110) Pulse Ox 90 97 O2 Delivery Room Air Room Air 01/17/19 00:00 Intake Total 1860 ml Balance 1860 ml Weight (Pounds): 191 Weight (Ounces): 0.0 Weight (Calculated Kilograms): 86.087393 Constitutional: AAO x 3, well-developed, well-nourished Respiratory: No accessory muscle use, No respiratory distress; chest expansion is symmetric, chest is bilaterally symmetric, rhonchi (scattered), other (prolonged expiratory phase) Cardiovascular: regular rate-rhythm; No JVD; S1 and S2, systolic murmur Gastrointestional: No tender; soft, audible bowel sounds Extremities: other (mild bilat LE swelling) Neurologic/Psychiatric: grossly intact Skin: No rash on exposed areas, No ulcerations on exposed areas; other (multiple bruises to arms/legs bilat with abrasions; drsg to left elbow D&I) Results/Procedures: Labs Laboratory Tests 01/16/19 06:20 A/P: Assessment: Bruising and oozing of bleed from iv sites and from minor injuries, improving AMS of undetermined etiology, probably related to alcohol withdrawal, managed by the Hospitalist Svce - improved PAF Anemia of undetermined etiology - being managed the Hospitalist/Medical Svce Hypertension - uncontrolled H/o mild to mod pancytopenia being during admission of Dec 23-Dec 4 OAC with Sue Upper and lower endoscopy of 12-27-[address] 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 This is of unknown age. There is mild to moderate narrowing of the proximal basilar artery. Per CTA of 01-02-19 Recent weight loss of approx 30 lbs of undetermined etiology CAD - Cardiac cath of 09/19/18 showed patent RCA stents that were place in Apr 2016: Alpine Xience 3.5 x 15 mm prox and Alpine Xience 3.0 x 15 mm distally, postdilated with a 3.5 mm balloon, The rest of the vessels have diffuse, mod disease. LVEF 50-55%. Normal LVEDP Echocardiogram of December 24, [address] Jimenez concentric hypertrophy. LVEF 45-50%. Grade 1 diastolic dysfunction. AoV thickening consistent with sclerosis with mild regurg. PASP 15-20mmHg. Severe ostial left renal artery stenosis with subsequent percutaneous transluminal angioplasty and residual minimal stenosis, no dissection or distal embolization by Dr. Keen at [facility] in [place], [place] in the early CT of the chest from August 2016 showed borderline adenopathy in the axillary regions and in the subcarinal space. 7 mm pulmonary nodule in the RUL. This is followed by Dr Toya MENDOZA, treated with CPAP, followed by Dr Pittman Mild carotid arterial disease on carotid u/s of 09/21/18 PAD - PCI of the right anterior tibial, posterior tibial and peroneal with Medtronic Nitinol 4mm x 20mm stent in the right posterior tibial December 08, [address] Langston in [place], [place]. Peripheral angio of 09/19/18: Infrarenal AAA, mod in size, just above aorto iliac bifurcation; mod diff disease of the sup fems and distal leg circulation on both sides. Patent R post tib stent HLP - statin therapy followed by his PCP - currently being withheld d/t recent episode of pancreatitis Emphysema GERD H/o pancreatitis in the past - managed by PCP EKG of 11-03-15 showed LVH with repolarization abnormality and LAFB; not significantly changed on 09/13/18 CKD stage 2-3 H/o heavy ETOH use Tobaccoism - 2 PPD Plan: * Continue Low-dose apixaban * Monitor labs * BP not well controlled, increase Toprol XL to 200mg in the morning * Stop Lisinopril since he is also on Cozaar Physician Assessment Physician Assessment Notes gen malaise. No cp or palp or syncope. Chronic exertional shortness of breath Lungs: fair bilat air entry, prolonged exp phase Cor: reg Ext: no c/c/e A&R * As documented in our note above that I updated (italics) and as noted below * Increase bp meds * Monitor labs from time to time BARNEY [employer] MA[employer]GER Jan 17, 2019 09:09 DAGO RAPHAEL MD FAC FAC CCDS Jan 17, 2019 10:36
[2019-01-17] MEDS ORDERED: amLODIPine 10 MG (NORVASC) TAB PO ONE (09:15)
[2019-01-17] MEDS ORDERED: meTOprolol SUCCINATE 100 MG (TOPROL XL) TAB PO ONE (09:15)
[2019-01-17] MEDS: meTOprolol SUCCINATE 100 MG (TOPROL XL) TAB PO SCH ×2 (09:57→20:05)
[2019-01-17] MEDS: ASPIRIN 81 MG CHEW (CHILDREN'S ASA) PO SCH (10:07)
[2019-01-17] MEDS: LORATADINE (CLARITIN) 10 MG TAB PO SCH (10:07)
[2019-01-17] MEDS: PANTOPRAZOLE 20 MG TABLET (PROTONIX) PO SCH (10:07)
[2019-01-17] MEDS: LOSARTAN 100 MG (COZAAR) TABLET PO SCH (10:07)
[2019-01-17] MEDS: APIXABAN 2.5 MG (ELIQUIS) TABLET PO SCH ×2 (10:07→20:05)
--- NOTE | 2019-01-17 10:11 | PM&R Progress Note ---
Subjective HPI/CC On Admission Date Seen by Provider: Jan 17, 2019 Time Seen by Provider: 09:00 CC: Debility from alcoholism and altered mental status HPI: This is a 73yoWM who was admitted nearly a week ago of Dr. Macias's who presented with altered mental status found to have significant alcohol withdrawa l of which his was unaware that he was drinking alcohol but he was provided supportive care and subsequently has become quite debilitated overall. Smoking cessation has been counseled along with alcohol cessation. He is a retired [employer] for 35 years in [place]. He does report that he is needing to cut down on his alcohol. At this current time pt denies any significant pain, meds were reviewed, and will be continued on inpatient rehab. He has become incontinent and is need of further recovery before DC is planned. HPI per ELMER Martinez Sebastien Toledo is a 73-year-old male with past medical history of hypertension, co ronary artery disease, GERD, and ETOH abuse who was recently admitted for AMS; his hospital stay was complicated by alcohol withdrawal. 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 CVA was suspected but ruled out via CT and clinical picture which was more consistent with ETOH withdrawal rather than CT. No MRI was done. Alcohol abuse was managed via activating CIWA protocol, giving thiamine and Folic acid. Pt was recently diagnosed with Paroxysmal Afib and was followed by Cardiology who ordered an Echo and started him on Eliquis. Pt's last stay also involved Macrocytic anemia which required transfusions and continued tx with folic acid. After pt was stabilized he was transitioned to inpatient rehabilitation on 01/08/19. I was consult for evaluation of restless leg symptoms. Patient reports last couple of evenings beginning shortly after getting into bed he will develop uncomfortable sensation in his legs that is only alleviated by moving them. He's had this in the past and I have not prescribed medication for him but his had either Mirapex her ropinirole he has taken her medication with release of his symptoms. He does have anemia with a low folate level that is macrocytic that with a history of esophagitis poor nutritional status from alcoholism iron deficiency is highly likely as well. He denies melena or bright red blood per rectum and denies abdominal pain. He is back to baseline mental status after being admitted with altered mental status and delirium. This is likely due to alcohol withdrawal. Subjective/Events-last exam Pt feels better Still a bit steady on his feet DC plan for Tuesday today Pain is well controlled Anxiety is better Dr. Dorantes did increase a lot of his meds of Norvasc from 5 to 10mg, and Toprol from 100 to 200, and off Lisinopril because he is also on an ARB Overall improving with intense rehab Conferred with RN. Reviewed therapy notes. Checked meds and labs. Review of Systems General: Fatigue, Malaise Objective Exam Vital Signs Vital Signs Date Time Temp Pulse Resp B/P (MAP) Pulse Ox O2 Delivery O2 Flow Rate FiO2 01/17/19 20:15 Room Air 01/17/19 17:27 36.6 78 20 139/67 (91) 96 Capillary Refill : General Appearance: No Apparent Distress, WD/WN, Chronically ill HEENT: PERRL/EOMI, Normal ENT Inspection, Pharynx Normal, Moist Mucous Membranes Neck: Full Range of Motion, Normal Inspection, Non Tender, Supple Respiratory: Chest Non Tender, Lungs Clear, Normal Breath Sounds, No Accessory Muscle Use, No Respiratory Distress Cardiovascular: Regular Rate, Rhythm, No Edema, No Gallop, No JVD, No Murmur Gastrointestinal: Normal Bowel Sounds, No Organomegaly, No Pulsatile Mass, Non Tender, Soft Back: Normal Inspection, No CVA Tenderness, No Vertebral Tenderness Extremity: Normal Capillary Refill, Normal Inspection, Normal Range of Motion, Non Tender, No Calf Tenderness, No Pedal Edema Neurologic/Psychiatric: Alert, Oriented x3, No Motor/Sensory Deficits, Normal Mood/Affect, Disoriented Skin: Normal Color, Warm/Dry Lymphatic: No Adenopathy Results/Procedures Lab Patient resulted labs reviewed. FIM Transfers Therapy Code Descriptions/Definitions Functional [place] Measure: 0=Not Assessed/NA 4=Minimal Assistance 1=Total Assistance 5=Supervision or Setup 2=Maximal Assistance 6=Modified [place] 3=Moderate Assistance 7=Complete [place] Therapy Quality Codes: 6 Independent with activity with or without an assistive device 5 Patient requires set up or clean up by helper. Patient completes activity by themselves 4 Supervision or touching assist (CGA). [place] provide cues , steadying assist 3 The helper provides less than half the effort to complete the activity 2 The helper provides more than half the effort to complete the activity 1 Dependent. The helper does all the effort to complete an activity 7 Patient refused to complete or attempt activity 9 The patient did not perform the activity before the current illness or injury 88 Not attempted due to Medical conditions or safety concerns Transfers (B, C, W/C) (FIM): 5 Scootin Rollin Roll Left to Right (QC): 5 Supine to/from Sit: 5 Sit to/from Stand: 5 Sit to Lying (QC): 5 Sit to Stand (QC): 4 Chair/Vwd-yx-Nljrf Xfer(QC): 4 Bed to/from Chair: 5 Car Transfer (QC): 5 Gait Training Does the Patient Walk?: Yes Gait (FIM): 2 Distance (FIM): 3=150 ft Distance: 120'x2 Walk 10 feet (QC): 4 Walk 50 ft with 2 Turns(QC): 4 Walk 150 ft (QC): 4 Walking 10ft/uneven surface-QC: 4 Gait Level of Assist: 5 Gait Persons Needed: 1 Gait Assistive Device: FWW Wheelchair Training Does the Pt Use a Wheelchair?: No Stair Training Stairs (FIM): 1 #of Steps: 1 1 Step (curb) (QC): 4 4 Steps (QC): 9 12 Steps (QC): 9 Level of Assist: 4 Mental Status/Objective Comprehension: 7 Expression: 7 Social Interaction: 7 Problem Solvin Memory: 7 ADL-Treatment Feedin (Drinking from cup with IND) Eating (QC): 6 Groomin (Pt completes face washing seated in chair) Oral Hygiene (QC): 4 (SUP) Bathin (SUP during seated washingPt requires SBA for safety while in standing during hyacinth hygiene. Pt completes with good safety awareness and planning.) Shower/Bathe Self (QC): 4 (SUP) Upper Extremity Dressin (Completes on shower chair.) Upper Body Dressing (QC): 6 Lower Extremity Dressin (Touching assist in standing. Pt desires to use cotton underwear rather than breifs on this date. Pt required assist with guiding L leg through due to different material, utilized washer and crusher tender. ) Lower Body Dressing (QC): 3 On/Off Footwear (QC): 6 (shoe horn, EOB) Toiletin (CGA in stance during hygiene. Pt completes with increased time and verbalizations during wiping as he is uncomfortable. Pt requires cues to pull up both sides of breifs.) Toileting Hygiene (QC): 4 (CGA during stance.) Toilet/Commode Transfer: 4 (CGA due to weakness.) Toilet Transfer (QC): 4 (CGA) Tub: 5 (SBA) Assessment/Plan Assessment and Plan Assess & Plan/Chief Complaint Plan: IRF protocol Supportive care Delirium monitoring ETOH cessation Hold laxatives until needed RLS per PCP consultation Nebs to maintain when necessary Ativan as needed Monitor urinary system Eliquis and aspirin restarted per cardiology Decrease steroid dose to 10mg Labs reviewed (1) Debility Status: Acute (2) Hypokalemia Status: Acute (3) Folate deficiency Status: Acute (4) Pancytopenia Status: Acute (5) Interstitial lung disease Status: Chronic (6) Weight loss, unintentional Status: Chronic (7) CAD (coronary artery disease) Status: Chronic Qualifiers: Coronary Disease-Associated Artery/Lesion type: [place] artery [place] vs. transplanted heart: [place] heart Associated angina: without angina Qualified Codes: I25.10 - Atherosclerotic heart disease of [place] coronary artery without angina pectoris (8) HTN (hypertension) Status: Chronic Qualifiers: Hypertension type: essential hypertension Qualified Codes: I10 - Essential (primary) hypertension (9) Nausea & vomiting Status: Acute Qualifiers: Vomiting type: unspecified (10) Atrial fibrillation with rapid ventricular response Status: Acute (11) Hypomagnesemia Status: Acute (12) Vertebral artery occlusion Status: Chronic Qualifiers: Laterality: unspecified laterality Qualified Codes: I65.09 - Occlusion and stenosis of unspecified vertebral artery (13) Aphasia Status: Acute (14) Altered mental status Status: Resolved Resolution Date/Time: 01/07/19 @ 11:56 (15) Alcohol dependence Status: Resolved Resolution Date/Time: 01/07/19 @ 11:56 Qualifiers: 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
--- NOTE | 2019-01-17 10:15 | Occupational Ther Daily Note ---
OT Current Status-Daily Note Subjective Pt seen in bed, no c/o pain on this date. Agreeable to OT tx session. Mental Status/Objective Patient Orientation: Normal For Age Therapy Code Descriptions/Definitions Functional [place] Measure: 0=Not Assessed/NA 4=Minimal Assistance 1=Total Assistance 5=Supervision or Setup 2=Maximal Assistance 6=Modified [place] 3=Moderate Assistance 7=Complete [place] ADL-Treatment Therapy Code Descriptions/Definitions Functional [place] Measure: 0=Not Assessed/NA 4=Minimal Assistance 1=Total Assistance 5=Supervision or Setup 2=Maximal Assistance 6=Modified [place] 3=Moderate Assistance 7=Complete [place] Therapy Quality Codes: 6 Independent with activity with or without an assistive device 5 Patient requires set up or clean up by helper. Patient completes activity by themselves 4 Supervision or touching assist (CGA). [place] provide cues , steadying assist 3 The helper provides less than half the effort to complete the activity 2 The helper provides more than half the effort to complete the activity 1 Dependent. The helper does all the effort to complete an activity 7 Patient refused to complete or attempt activity 9 The patient did not perform the activity before the current illness or injury 88 Not attempted due to Medical conditions or safety concerns Eating (FIM): 6 (Pt completes coffee pouring at sink with fair motor control, increased time noted for safety. No spillage. ) Eating (QC): 6 Grooming (FIM): 5 (SUP during face washing and oral hygiene.) Oral Hygiene (QC): 5 (SUP at sink) Bathing (FIM): 5 (SBA for standing during sponge bath. Pt able to wash feet without AE on this date while seated in chair) Shower/Bathe Self (QC): 4 (SBA during stance.) Upper Body (FIM): 6 (Completes sitting in chair) Upper Body Dressing (QC): 6 Lower Body Dressing (FIM): 5 (Increased time noted. Pt able to reach feet, no use of AE needed on this date. Completed threading of BLE while seated, SBA for safety. ) Lower Body Dressing (QC): 4 (SBA in stance to pull up pants. ) On/Off Footwear (QC): 6 (increased time) Transfers (B, C, W/C) (FIM): 5 (SUP for safety) Other Treatment Pt completes ADL routine in room. Pt ambulates with FWW to therapy gym, completes 13 minutes of arm bike with noted SOB and one 1 minute break at 10 minutes. Pt completed pursed lip breathing until SOB reduced. Pt sit to stand with SBA. Pt completes arch activity utilizing hands to cross midline. Pt completes with good endurance and good static standing balance. Pt stands for 14 minutes, able to complete activity with 2 rest breaks (~2 minutes each). Pt completes coffee pouring with good safety awareness and increased time for good motor control. Pt returns to room, sitting in recliner pt completes sugar packages for coffee with increased time and c/o pain in L digits II and III. Pt states digits are "tingling and have been since before I came here." Pt states he has had difficulties eating with utensils, pt states he has been dropping utensils with R hand due to them being "thin." Pt given large built up handle and thin built up handle for increased IND during feeding tasks. Pt was educated on use, pt states it "feels much better". Pt left in recliner, call light in reach, all needs met. Education OT Patient Education: Correct positioning, Exercise program, Modified ADL techniques, Progress toward Goal/Update tx plan, Purpose of tx/functional activities, Rehab process, Safety issues, Transfer techniques, Use of adapted equipment Teaching Recipient: Patient Teaching Methods: Demonstration, Discussion Response to Teaching: Verbalize Understanding, Return Demonstration OT Short Term Goals Short Term Goals Upper Body Dressing(FIM): 6 (met) Lower Body Dressing(FIM): 3 (met) Transfers (B,C,W/C) (FIM): 5 (met- SBA) 1=Demonstrate adherence to instructed precautions during ADL tasks. 2=Patient will verbalize/demonstrate understanding of assistive devices/modifications for ADL. 3=Patient will improve strength/tolerance for activity to enable patient to perform ADL's. OT Senior Living Goals Senior Living Goals Eating (FIM): 7 (met) Eating (QC): 6 (met) Groomin Oral Hygiene (QC): 6 Bathing(FIM): 6 Shower/Bathe Self (QC): 6 Upper Body Dressing(FIM): 6 (met) Upper Body Dressing (QC): 6 (met) Lower Body Dressing(FIM): 6 Lower Body Dressing (QC): 6 On/Off Footwear (QC): 6 (met) Toileting(FIM): 5 Toileting Hygiene (QC): 6 Transfers (B,C,W/C) (FIM): 6 Toilet/Commode Transfer(FIM): 5 Toilet/Commode Transfer (QC): 4 Tub Transfer(FIM): 5 (met) Shower Transfer(FIM): 5 Additional Goals: 1-Demonstrate ADL Tasks, 2-Verbalize Understanding, 3- ImproveStrength/Jordy 1=Demonstrate adherence to instructed precautions during ADL tasks. 2=Patient will verbalize/demonstrate understanding of assistive devices/modifications for ADL. 3=Patient will improve strength/tolerance for activity to enable patient to perform ADL's. OT Education/Plan Discharge Recommendations Plan/Recommendations: Continue POC Therapy Discharge Recommendati: Other, See Comments Equpiment Recommendations-D/C: Rails on Tub/Shower, Jewelry Inspector Treatment Plan/Plan of Care Treatment,Training & Education: Yes Patient would benefit from OT for education, treatment and training to promote independence in ADL's, mobility, safety and/or upper extremity function for ADL's. Plan of Care: ADL Retraining, Caregiver Training, Cognitive Retraining, Functional Mobility, Group Exercise/Act as Ind, UE Funct Exercise/Act, UE Neuromus Re-Ed/Coord Treatment Duration: Jan 09, 2019 Frequency: 5 times per week Estimated Hrs Per Day: 1 hour per day (1-1.5 hours per day) Agreement: Yes Rehab Potential: Fair Time/GCodes Start Time: 08:00 Stop Time: 09:30 Total Time Billed (hr/min): 90 Billed Treatment Time 1 ADLx3, EX x2, FA (90) JOANA MENDOZA OTR Jan 17, 2019 10:15
--- NOTE | 2019-01-17 12:21 | Physical Therapy Daily Note ---
PT Daily Note-Current Subjective Pt sitting in recliner upon arrival. Pt agrees to PT. Pain Location: No Pain Reported Mental Status Patient Orientation: Person, Place, Time, Situation Transfers Therapy Code Descriptions/Definitions Functional [place] Measure: 0=Not Assessed/NA 4=Minimal Assistance 1=Total Assistance 5=Supervision or Setup 2=Maximal Assistance 6=Modified [place] 3=Moderate Assistance 7=Complete [place] Therapy Quality Codes: 6 Independent with activity with or without an assistive device 5 Patient requires set up or clean up by helper. Patient completes activity by themselves 4 Supervision or touching assist (CGA). [place] provide cues , steadying assist 3 The helper provides less than half the effort to complete the activity 2 The helper provides more than half the effort to complete the activity 1 Dependent. The helper does all the effort to complete an activity 7 Patient refused to complete or attempt activity 9 The patient did not perform the activity before the current illness or injury 88 Not attempted due to Medical conditions or safety concerns Scootin Sit to/from Stand: 5 Sit to Stand (QC): 5 Weight Bearing Right Lower Extremity: Right Weight Bearing/Tolerated Left Lower Extremity: Left Weight Bearing/Tolerated Gait Training Does the Patient Walk?: Yes Gait (FIM): 5 Distance (FIM): 3=150 ft Distance: 175' Walk 10 feet (QC): 5 Walk 50 ft with 2 Turns(QC): 5 Walk 150 ft (QC): 5 Gait Level of Assist: 5 Gait Persons Needed: 1 Gait Assistive Device: FWW Pt fatigues needing RB occasionally. Pt gets SOA. Wheelchair Training Does the Pt Use a Wheelchair?: No Exercises Seated Therapy Exercises: Ankle pumps, Long arc quads, Hip flexion, Kicking activity Seated Reps: 20 NuStep Minutes: 11 NuStep Workload: 5 Treatments Pt transfers from recliner to standing. Pt ambulates in hallway then transfers to [facility] for 11m at [facility] 5. Pt needs occasional RB. Pt completes Seated EX with several RB. Pt ambulates in hallway before returning to room to rest in recliner. Pt has all needs met at end of tx, call light in hand. Assessment Current Status: Good Progress Pt continues to make progress with improved strength and improving activity tolerance. PT Short Term Goals Short Term Goals Transfers (B,C,W/C) (FIM): 5 (met- SBA) PT Group Home Goals Local Combination Truck Driver Goals PT Local Combination Truck Driver Goals Time Frame: Feb 03, 2019 Transfers (B,C,W/C) (FIM): 6 Sit to Lying (QC): 6 Lying-Sitting on Side/Bed(QC): 6 Sit to Stand (QC): 6 Rollin Roll Left to Right (QC): 6 Chair/Avx-xn-Arhlk Xfer(QC): 6 Car Transfer (QC): 6 Does the Patient Walk: Yes Gait (FIM): 6 Gait distance (FIM): 3=150 ft Distance: 250' Walk 10 feet (QC): 6 Walk 10ft-Uneven Surface(QC): 6 Walk 50ft with 2 Turns (QC): 6 Walk 150 ft (QC): 6 Gait Level of Assist: 6 Gait Assistive Device: FWW Stairs (FIM): 2 # of Steps: 4 1 Step (curb) (QC): 6 4 Steps (QC): 6 12 Steps (QC): 9 Stairs Level Of Assist: 6 Picking up an Object (QC): 6 PT Plan Problem List Problem List: Activity Tolerance, Gait Treatment/Plan Treatment Plan: Continue Plan of Care Treatment Plan: Bed Mobility, Education, Functional Activity Jordy, Functional Strength, Group Therapy, Gait, Safety, Therapeutic Exercise, Transfers Treatment Duration: Feb 03, 2019 Frequency: At least 5 of 7 days/Wk (IRF) Estimated Hrs Per Day: 1.5 hours per day Patient and/or Family Agrees t: Yes Safety Risks/Education Patient Education: Gait Training, Correct Positioning, Safety Issues Teaching Recipient: Patient Teaching Methods: Discussion Response to Teaching: Verbalize Understanding Time/GCodes Time In: 1015 Time Out: 1115 Total Billed Treatment Time: 60 Total Billed Treatment 1, GT (20m), EX x2 (25m) & FA (15m) MELLISSA RANGEL PUBLIC INFORMATION SPECIALIST Jan 17, 2019 12:21
--- NOTE | 2019-01-17 13:50 | NUR ---
Weekly team conference Met with patient and his to discuss weekly team conference. Tentative discharge date set for 01/23/19. Patient's spouse is apprehensive regarding discharge date, stating he needs to make improvements before returning home; she would not be able to care for him at his current level of function. Patient's reports she works from 0600-noon during the week and would not feel safe leaving him at home alone at his current level of function. Informed patient and his that the team recommends [facility] [place] RN, PT and OT at discharge. Explained to patient and his spouse that the team would continue to monitor his progress and safety and that there would be regular communication with them regarding progress and discharge. Both verbalized understanding. After meeting with patient and his , discussed the 's concerns with PT. The team will discuss patient's progress on Tuesday and determine if discharge on 01/23/19 is appropriate. If patient unable to make improvements for what he and his spouse feel would be a safe discharge home, may need to work on alternative discharge destination.
--- NOTE | 2019-01-17 15:26 | Physical Therapy Daily Note ---
PT Daily Note-Current Subjective Pt sitting in recliner with Sp present upon arrival. Pt agrees to PT. Mental Status Patient Orientation: Person, Place, Time, Situation Transfers Therapy Code Descriptions/Definitions Functional [place] Measure: 0=Not Assessed/NA 4=Minimal Assistance 1=Total Assistance 5=Supervision or Setup 2=Maximal Assistance 6=Modified [place] 3=Moderate Assistance 7=Complete [place] Therapy Quality Codes: 6 Independent with activity with or without an assistive device 5 Patient requires set up or clean up by helper. Patient completes activity by themselves 4 Supervision or touching assist (CGA). [place] provide cues , steadying assist 3 The helper provides less than half the effort to complete the activity 2 The helper provides more than half the effort to complete the activity 1 Dependent. The helper does all the effort to complete an activity 7 Patient refused to complete or attempt activity 9 The patient did not perform the activity before the current illness or injury 88 Not attempted due to Medical conditions or safety concerns [place] Supine to/from Sit: 5 Sit to/from Stand: 5 Sit to Stand (QC): 5 Weight Bearing Right Lower Extremity: Right Weight Bearing/Tolerated Left Lower Extremity: Left Weight Bearing/Tolerated Gait Training Does the Patient Walk?: Yes Gait (FIM): 5 Distance (FIM): 3=150 ft Distance: 150' Walk 10 feet (QC): 5 Walk 50 ft with 2 Turns(QC): 5 Walk 150 ft (QC): 5 Gait Level of Assist: 5 Gait Persons Needed: 1 Gait Assistive Device: FWW Wheelchair Training Does the Pt Use a Wheelchair?: No Exercises Supine Ex: Ankle pumps, Quad Set, Glut sets, Heel Slides, Straight leg raise, Hip abd/add Supine Reps: 20 Treatments Pt transfers from recliner to standing then ambulates in hallway. Pt returns to room to rest Supine in bed then completes Supine EX. Pt resting at end of tx with all needs met, call light in hand. Assessment Current Status: Good Progress Pt still demonstrates fatigue needing RB. PT Short Term Goals Short Term Goals Transfers (B,C,W/C) (FIM): 5 (met- SBA) PT Air Intelligence Specialist Goals Air Intelligence Specialist Goals PT Half-Way Goals Time Frame: Feb 03, 2019 Transfers (B,C,W/C) (FIM): 6 Sit to Lying (QC): 6 Lying-Sitting on Side/Bed(QC): 6 Sit to Stand (QC): 6 Rollin Roll Left to Right (QC): 6 Chair/Klu-hn-Pppju Xfer(QC): 6 Car Transfer (QC): 6 Does the Patient Walk: Yes Gait (FIM): 6 Gait distance (FIM): 3=150 ft Distance: 250' Walk 10 feet (QC): 6 Walk 10ft-Uneven Surface(QC): 6 Walk 50ft with 2 Turns (QC): 6 Walk 150 ft (QC): 6 Gait Level of Assist: 6 Gait Assistive Device: FWW Stairs (FIM): 2 # of Steps: 4 1 Step (curb) (QC): 6 4 Steps (QC): 6 12 Steps (QC): 9 Stairs Level Of Assist: 6 Picking up an Object (QC): 6 PT Plan Problem List Problem List: Activity Tolerance, Functional Strength Treatment/Plan Treatment Plan: Continue Plan of Care Treatment Plan: Bed Mobility, Education, Functional Activity Jordy, Functional Strength, Group Therapy, Gait, Safety, Therapeutic Exercise, Transfers Treatment Duration: Feb 03, 2019 Frequency: At least 5 of 7 days/Wk (IRF) Estimated Hrs Per Day: 1.5 hours per day Patient and/or Family Agrees t: Yes Safety Risks/Education Patient Education: Correct Positioning, Safety Issues Teaching Recipient: Patient Teaching Methods: Discussion Response to Teaching: Verbalize Understanding Time/GCodes Time In: 1300 Time Out: 1330 Total Billed Treatment Time: 30 Total Billed Treatment 1, GT (10m) & EX (20m) MELLISSA RANGEL COUNTERPERSON Jan 17, 2019 15:26
[2019-01-17] MEDS: LORazepam 0.5 MG (ATIVAN) TABLET PO PRN (16:15)
[2019-01-17 17:27] VITALS: BP 139/67
[2019-01-17] MEDS: MONTELUKAST 10 MG (SINGULAIR) TAB PO SCH (20:05)
[2019-01-18] MEDS: rOPINIRole 0.25 MG (REQUIP) TAB PO PRN ×2 (00:40→20:07)
[2019-01-18] MEDS: HYDROcodone/APAP 5 MG/325 MG (LORTAB) TAB PO PRN (00:40)
[2019-01-18 05:56] VITALS: BP 151/65
[2019-01-18] MEDS: predniSONE 20 MG TAB PO SCH (05:59)
[2019-01-18] MEDS: FOLIC ACID 1 MG TAB PO SCH (05:59)
[2019-01-18] MEDS: MULTIVIT W/MINERALS TAB (THERAGRAN M) PO SCH (05:59)
[2019-01-18] MEDS: CATHETER FLUSH 10 ML SYR IV SCH ×3 (06:08→20:11)
--- NOTE | 2019-01-18 08:57 | Occupational Ther Daily Note ---
OT Current Status-Daily Note Subjective Pt seen in recliner chair, no pain stated. Pt agreeable to OT tx session. Mental Status/Objective Patient Orientation: Normal For Age Therapy Code Descriptions/Definitions Functional [place] Measure: 0=Not Assessed/NA 4=Minimal Assistance 1=Total Assistance 5=Supervision or Setup 2=Maximal Assistance 6=Modified [place] 3=Moderate Assistance 7=Complete [place] ADL-Treatment Therapy Code Descriptions/Definitions Functional [place] Measure: 0=Not Assessed/NA 4=Minimal Assistance 1=Total Assistance 5=Supervision or Setup 2=Maximal Assistance 6=Modified [place] 3=Moderate Assistance 7=Complete [place] Therapy Quality Codes: 6 Independent with activity with or without an assistive device 5 Patient requires set up or clean up by helper. Patient completes activity by themselves 4 Supervision or touching assist (CGA). [place] provide cues , steadying assist 3 The helper provides less than half the effort to complete the activity 2 The helper provides more than half the effort to complete the activity 1 Dependent. The helper does all the effort to complete an activity 7 Patient refused to complete or attempt activity 9 The patient did not perform the activity before the current illness or injury 88 Not attempted due to Medical conditions or safety concerns Eating (FIM): 6 (Pt used built up handles for handling food items on this date. Pt states use of large built up handle "feels good", motor control good with built up. Pt cuts food with R while stabilizing with L with both utensils built- up) Eating (QC): 6 Grooming (FIM): 5 (SUP at sink, use of FWW for support.) Oral Hygiene (QC): 5 (SUP at sink) Bathing (FIM): 5 (SBA during stance. Pt requests to wash back/ bottom/ feet with long handled sponge while in stance as he does at home. Pt stood (SBA), good use of grab bars and fair coordination. Pt demonstrates SOB during tasks, cues for pursed lip breathing during activity. ) Shower/Bathe Self (QC): 4 (SBA and cues ) Upper Body (FIM): 6 (Sitting on chair.) Upper Body Dressing (QC): 6 Lower Body Dressing (FIM): 5 (SBA during stance to pull up, pt completes threading activity seated in chair.) Lower Body Dressing (QC): 5 (SBA in stance.) On/Off Footwear (QC): 6 (Sitting on chair, increased time. Pt used shoe horn to adjust to fit.) Toileting (FIM): 5 (SBA for safety during stance for wiping after BM) Toileting Hygiene (QC): 5 (s/u) Transfers (B, C, W/C) (FIM): 5 (SBA) Toilet/Commode Transfer (FIM): 4 (SBA, use of FWW and grab bars. Good motor control on this date.) Toilet Transfer (QC): 5 (SBA) Shower Transfer(FIM): 5 (SBA, use of grab bars and FWW.) Other Treatment Pt sat EOM, pt threw/ caught large ball and performed different actions/ exercises during each rotation to address sequencing, reaction time, abdominal strength and balance, and ROM. Pt able to complete activity sequences including raising legs, leg extension, arms above head, and torso twists. Pt holds breath during increasing difficulty, pt required cues for pursed lip breathing/ exhaling during strenuous acts. Pt demonstrated back inconsistently, requiring cues for reminders. Pt ambulated with FWW and SBA to room, gathering clothes for shower. During oral hygiene at sink, pt requests need for urgent urination. Pt urinated small amounts into clean pants, requiring change. Pt doffed/ donned LB dressing in chair, requiring SBA for stance to pull up. Post-ADL/ showering, pt left in recliner chair, call light in reach, all needs met. Education OT Patient Education: Correct positioning, Energy conservation, Exercise program, Modified ADL techniques, Purpose of tx/functional activities, Rehab process, Safety issues, Use of adapted equipment Teaching Recipient: Patient Teaching Methods: Demonstration, Discussion Response to Teaching: Verbalize Understanding, Return Demonstration OT Short Term Goals Short Term Goals Upper Body Dressing(FIM): 6 (met) Lower Body Dressing(FIM): 3 (met) Transfers (B,C,W/C) (FIM): 5 (met- SBA) 1=Demonstrate adherence to instructed precautions during ADL tasks. 2=Patient will verbalize/demonstrate understanding of assistive devices/modifications for ADL. 3=Patient will improve strength/tolerance for activity to enable patient to perform ADL's. OT Mechanical Cad Drafter Goals Shelter Goals Eating (FIM): 7 (met) Eating (QC): 6 (met) Groomin Oral Hygiene (QC): 6 Bathing(FIM): 6 Shower/Bathe Self (QC): 6 Upper Body Dressing(FIM): 6 (met) Upper Body Dressing (QC): 6 (met) Lower Body Dressing(FIM): 6 Lower Body Dressing (QC): 6 On/Off Footwear (QC): 6 (met) Toileting(FIM): 5 Toileting Hygiene (QC): 6 Transfers (B,C,W/C) (FIM): 6 Toilet/Commode Transfer(FIM): 5 Toilet/Commode Transfer (QC): 4 Tub Transfer(FIM): 5 (met) Shower Transfer(FIM): 5 Additional Goals: 1-Demonstrate ADL Tasks, 2-Verbalize Understanding, 3- ImproveStrength/Jordy 1=Demonstrate adherence to instructed precautions during ADL tasks. 2=Patient will verbalize/demonstrate understanding of assistive devices/modifications for ADL. 3=Patient will improve strength/tolerance for activity to enable patient to perform ADL's. OT Education/Plan Problem List/Assessment Assessment: Decreased Activ Tolerance, Decreased UE Strength, Impaired Coordination, Impaired I ADL's, Impaired Self-Care Skills Discharge Recommendations Plan/Recommendations: Continue POC Treatment Plan/Plan of Care Treatment,Training & Education: Yes Patient would benefit from OT for education, treatment and training to promote independence in ADL's, mobility, safety and/or upper extremity function for ADL's. Plan of Care: ADL Retraining, Caregiver Training, Cognitive Retraining, Functional Mobility, Group Exercise/Act as Ind, UE Funct Exercise/Act, UE Neuromus Re-Ed/Coord Treatment Duration: Jan 09, 2019 Frequency: 5 times per week Estimated Hrs Per Day: 1 hour per day (1-1.5 hours per day) Agreement: Yes Rehab Potential: Fair Time/GCodes Start Time: 08:00 Stop Time: 09:30 Total Time Billed (hr/min): 90 Billed Treatment Time 1 ADL 3 (45), EX x3(45) JOANA MENDOZA OTR Jan 18, 2019 08:57
[2019-01-18] MEDS ORDERED: meTOprolol SUCCINATE 100 MG (TOPROL XL) TAB PO SCH (09:00)
[2019-01-18] MEDS: FUROSEMIDE 40 MG (LASIX) TAB PO SCH (09:15)
[2019-01-18] MEDS: PANTOPRAZOLE 20 MG TABLET (PROTONIX) PO SCH (09:51)
[2019-01-18] MEDS: LORATADINE (CLARITIN) 10 MG TAB PO SCH (09:52)
[2019-01-18] MEDS: LOSARTAN 100 MG (COZAAR) TABLET PO SCH (09:52)
[2019-01-18] MEDS: ASPIRIN 81 MG CHEW (CHILDREN'S ASA) PO SCH (09:52)
[2019-01-18] MEDS: APIXABAN 2.5 MG (ELIQUIS) TABLET PO SCH ×2 (09:52→20:07)
[2019-01-18] MEDS: amLODIPine 5 MG (NORVASC) TAB PO SCH (09:52)
[2019-01-18] MEDS: meTOprolol SUCCINATE 100 MG (TOPROL XL) TAB PO SCH ×2 (09:52→20:07)
[2019-01-18] MEDS: KCL 10 MEQ TAB (MICRO K) PO SCH (09:53)
--- NOTE | 2019-01-18 10:43 | PM&R Progress Note ---
Subjective HPI/CC On Admission Date Seen by Provider: Jan 18, 2019 Time Seen by Provider: 09:00 CC: Debility from alcoholism and altered mental status HPI: This is a 73yoWM who was admitted nearly a week ago of Dr. Macias's who presented with altered mental status found to have significant alcohol withdrawa l of which his was unaware that he was drinking alcohol but he was provided supportive care and subsequently has become quite debilitated overall. Smoking cessation has been counseled along with alcohol cessation. He is a retired [employer]in for 35 years in [place]. He does report that he is needing to cut down on his alcohol. At this current time pt denies any significant pain, meds were reviewed, and will be continued on inpatient rehab. He has become incontinent and is need of further recovery before DC is planned. HPI per ELMER Martinez Sebastien Toledo is a 73-year-old male with past medical history of hypertension, co ronary artery disease, GERD, and ETOH abuse who was recently admitted for AMS; his hospital stay was complicated by alcohol withdrawal. 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 CVA was suspected but ruled out via CT and clinical picture which was more consistent with ETOH withdrawal rather than CT. No MRI was done. Alcohol abuse was managed via activating CIWA protocol, giving thiamine and Folic acid. Pt was recently diagnosed with Paroxysmal Afib and was followed by Cardiology who ordered an Echo and started him on Eliquis. Pt's last stay also involved Macrocytic anemia which required transfusions and continued tx with folic acid. After pt was stabilized he was transitioned to inpatient rehabilitation on 01/08/19. I was consult for evaluation of restless leg symptoms. Patient reports last couple of evenings beginning shortly after getting into bed he will develop uncomfortable sensation in his legs that is only alleviated by moving them. He's had this in the past and I have not prescribed medication for him but his had either Mirapex her ropinirole he has taken her medication with release of his symptoms. He does have anemia with a low folate level that is macrocytic that with a history of esophagitis poor nutritional status from alcoholism iron deficiency is highly likely as well. He denies melena or bright red blood per rectum and denies abdominal pain. He is back to baseline mental status after being admitted with altered mental status and delirium. This is likely due to alcohol withdrawal. Subjective/Events-last exam Pt doing very well. Discharge planned for Tuesday. East[place] and drinking well. Will DC Prednisone today since I tapered it down. Urine no longer has the odor and I have a feeling it was the Prednisone. No SOB. Conferred with RN. Reviewed therapy notes. Checked meds and labs. Review of Systems General: Fatigue Objective Exam Vital Signs Vital Signs Date Time Temp Pulse Resp B/P (MAP) Pulse Ox O2 Delivery O2 Flow Rate FiO2 01/18/19 17:02 36.6 77 18 151/77 (101) 98 Room Air Capillary Refill : General Appearance: No Apparent Distress, WD/WN, Chronically ill HEENT: PERRL/EOMI, Normal ENT Inspection, Pharynx Normal, Moist Mucous Membranes Neck: Full Range of Motion, Normal Inspection, Non Tender, Supple Respiratory: Chest Non Tender, Lungs Clear, Normal Breath Sounds, No Accessory Muscle Use, No Respiratory Distress Cardiovascular: Regular Rate, Rhythm, No Edema, No Gallop, No JVD, No Murmur Gastrointestinal: Normal Bowel Sounds, No Organomegaly, No Pulsatile Mass, Non Tender, Soft Back: Normal Inspection, No CVA Tenderness, No Vertebral Tenderness Extremity: Normal Capillary Refill, Normal Inspection, Normal Range of Motion, Non Tender, No Calf Tenderness, No Pedal Edema Neurologic/Psychiatric: Alert, Oriented x3, No Motor/Sensory Deficits, Normal Mood/Affect, Disoriented Skin: Normal Color, Warm/Dry Lymphatic: No Adenopathy Results/Procedures Lab Patient resulted labs reviewed. FIM Transfers Therapy Code Descriptions/Definitions Functional [place] Measure: 0=Not Assessed/NA 4=Minimal Assistance 1=Total Assistance 5=Supervision or Setup 2=Maximal Assistance 6=Modified [place] 3=Moderate Assistance 7=Complete [place] Therapy Quality Codes: 6 Independent with activity with or without an assistive device 5 Patient requires set up or clean up by helper. Patient completes activity by themselves 4 Supervision or touching assist (CGA). [place] provide cues , steadying assist 3 The helper provides less than half the effort to complete the activity 2 The helper provides more than half the effort to complete the activity 1 Dependent. The helper does all the effort to complete an activity 7 Patient refused to complete or attempt activity 9 The patient did not perform the activity before the current illness or injury 88 Not attempted due to Medical conditions or safety concerns Transfers (B, C, W/C) (FIM): 5 (SBA) Scootin Rollin Roll Left to Right (QC): 5 Supine to/from Sit: 5 Sit to/from Stand: 5 Sit to Lying (QC): 5 Sit to Stand (QC): 5 Chair/Gcx-pj-Djwrf Xfer(QC): 4 Bed to/from Chair: 5 Car Transfer (QC): 5 Gait Training Does the Patient Walk?: Yes Gait (FIM): 5 Distance (FIM): 3=150 ft Distance: 150' Walk 10 feet (QC): 5 Walk 50 ft with 2 Turns(QC): 5 Walk 150 ft (QC): 5 Walking 10ft/uneven surface-QC: 4 Gait Level of Assist: 5 Gait Persons Needed: 1 Gait Assistive Device: FWW Wheelchair Training Does the Pt Use a Wheelchair?: No Stair Training Stairs (FIM): 1 #of Steps: 1 1 Step (curb) (QC): 4 4 Steps (QC): 9 12 Steps (QC): 9 Level of Assist: 4 Mental Status/Objective Comprehension: 7 Expression: 7 Social Interaction: 7 Problem Solvin Memory: 7 ADL-Treatment Feedin (Pt used built up handles for handling food items on this date. Pt states use of large built up handle "feels good", motor control good with built up. Pt cuts food with R while stabilizing with L with both utensils built-up) Eating (QC): 6 Groomin (SUP at sink, use of FWW for support.) Oral Hygiene (QC): 5 (SUP at sink) Bathin (SBA during stance. Pt requests to wash back/ bottom/ feet with long handled sponge while in stance as he does at home. Pt stood (SBA), good use of grab bars and fair coordination. Pt demonstrates SOB during tasks, cues for pursed lip breathing during activity. ) Shower/Bathe Self (QC): 4 (SBA and cues ) Upper Extremity Dressin (Sitting on chair.) Upper Body Dressing (QC): 6 Lower Extremity Dressin (SBA during stance to pull up, pt completes threading activity seated in chair.) Lower Body Dressing (QC): 5 (SBA in stance.) On/Off Footwear (QC): 6 (Sitting on chair, increased time. Pt used shoe horn to adjust to fit.) Toiletin (SBA for safety during stance for wiping after BM) Toileting Hygiene (QC): 5 (s/u) Toilet/Commode Transfer: 4 (SBA, use of FWW and grab bars. Good motor control on this date.) Toilet Transfer (QC): 5 (SBA) Tub: 5 (SBA) Shower: 5 (SBA, use of grab bars and FWW.) Assessment/Plan Assessment and Plan Assess & Plan/Chief Complaint Plan: IRF protocol Supportive care Delirium monitoring ETOH cessation Hold laxatives until needed RLS per PCP consultation Nebs to maintain when necessary Ativan as needed Monitor urinary system Eliquis and aspirin restarted per cardiology DC Prednisone after dose today Labs reviewed (1) Debility Status: Acute (2) Hypokalemia Status: Acute (3) Folate deficiency Status: Acute (4) Pancytopenia Status: Acute (5) Interstitial lung disease Status: Chronic (6) Weight loss, unintentional Status: Chronic (7) CAD (coronary artery disease) Status: Chronic Qualifiers: Coronary Disease-Associated Artery/Lesion type: [place] artery [place] vs. transplanted heart: [place] heart Associated angina: without angina Qualified Codes: I25.10 - Atherosclerotic heart disease of [place] coronary artery without angina pectoris (8) HTN (hypertension) Status: Chronic Qualifiers: Hypertension type: essential hypertension Qualified Codes: I10 - Essential (primary) hypertension (9) Nausea & vomiting Status: Acute Qualifiers: Vomiting type: unspecified (10) Atrial fibrillation with rapid ventricular response Status: Acute (11) Hypomagnesemia Status: Acute (12) Vertebral artery occlusion Status: Chronic Qualifiers: Laterality: unspecified laterality Qualified Codes: I65.09 - Occlusion and stenosis of unspecified vertebral artery (13) Aphasia Status: Acute (14) Altered mental status Status: Resolved Resolution Date/Time: 01/07/19 @ 11:56 (15) Alcohol dependence Status: Resolved Resolution Date/Time: 01/07/19 @ 11:56 Qualifiers: 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
--- NOTE | 2019-01-18 11:17 | Physical Therapy Daily Note ---
PT Daily Note-Current Subjective Pt sitting in recliner upon arrival. Pt agrees to PT. Pt is nervous about returning home and the fact that Sp will be working overnight. BLEACH MIXER gives encouragement and reassurance that adjustment can be made to keep pt safe. Pain Location: No Pain Reported Mental Status Patient Orientation: Person, Place, Time, Situation Transfers Therapy Code Descriptions/Definitions Functional [place] Measure: 0=Not Assessed/NA 4=Minimal Assistance 1=Total Assistance 5=Supervision or Setup 2=Maximal Assistance 6=Modified [place] 3=Moderate Assistance 7=Complete [place] Therapy Quality Codes: 6 Independent with activity with or without an assistive device 5 Patient requires set up or clean up by helper. Patient completes activity by themselves 4 Supervision or touching assist (CGA). [place] provide cues , steadying assist 3 The helper provides less than half the effort to complete the activity 2 The helper provides more than half the effort to complete the activity 1 Dependent. The helper does all the effort to complete an activity 7 Patient refused to complete or attempt activity 9 The patient did not perform the activity before the current illness or injury 88 Not attempted due to Medical conditions or safety concerns Scootin Supine to/from Sit: 5 Sit to/from Stand: 5 Sit to Lying (QC): 5 Sit to Stand (QC): 5 Weight Bearing Right Lower Extremity: Right Weight Bearing/Tolerated Left Lower Extremity: Left Weight Bearing/Tolerated Gait Training Does the Patient Walk?: Yes Gait (FIM): 5 Distance (FIM): 3=150 ft Distance: 150' Walk 10 feet (QC): 5 Walk 50 ft with 2 Turns(QC): 5 Walk 150 ft (QC): 5 Gait Level of Assist: 5 Gait Persons Needed: 1 Gait Assistive Device: FWW Wheelchair Training Does the Pt Use a Wheelchair?: No Exercises Supine Ex: Ankle pumps, Quad Set, Glut sets, Heel Slides, Straight leg raise, Hip abd/add Supine Reps: 15 Seated Therapy Exercises: Ankle pumps, Long arc quads, Hip flexion, Kicking activity, Hamstring Curls Seated Reps: 20 Treatments Pt transfers from recliner to standing then practices bed mobility. Pt stands from EOB to ambulate in hallway. Pt completes Seated EX in chair in Therapy Gym. Pt takes RB as needed during Ex. Pt is issued HEP for Supine & Seated Ex. Pt ambulates back to room to rest at EOB at end of tx with all needs met, call light next to pt. Assessment Current Status: Good Progress Pt fatigues quickly due to CHF, needs RB to recover. PT Short Term Goals Short Term Goals Transfers (B,C,W/C) (FIM): 5 (met- SBA) PT Folder Stitcher Operator Goals [place] Goals PT Folder Stitcher Operator Goals Time Frame: Feb 03, 2019 Transfers (B,C,W/C) (FIM): 6 Sit to Lying (QC): 6 Lying-Sitting on Side/Bed(QC): 6 Sit to Stand (QC): 6 Rollin Roll Left to Right (QC): 6 Chair/Mpx-mn-Vckal Xfer(QC): 6 Car Transfer (QC): 6 Does the Patient Walk: Yes Gait (FIM): 6 Gait distance (FIM): 3=150 ft Distance: 250' Walk 10 feet (QC): 6 Walk 10ft-Uneven Surface(QC): 6 Walk 50ft with 2 Turns (QC): 6 Walk 150 ft (QC): 6 Gait Level of Assist: 6 Gait Assistive Device: FWW Stairs (FIM): 2 # of Steps: 4 1 Step (curb) (QC): 6 4 Steps (QC): 6 12 Steps (QC): 9 Stairs Level Of Assist: 6 Picking up an Object (QC): 6 PT Plan Problem List Problem List: Activity Tolerance, Functional Strength, Gait Treatment/Plan Treatment Plan: Continue Plan of Care Treatment Plan: Bed Mobility, Education, Functional Activity Jordy, Functional Strength, Group Therapy, Gait, Safety, Therapeutic Exercise, Transfers Treatment Duration: Feb 03, 2019 Frequency: At least 5 of 7 days/Wk (IRF) Estimated Hrs Per Day: 1.5 hours per day Patient and/or Family Agrees t: Yes Safety Risks/Education Patient Education: Gait Training, Transfer Techniques, Correct Positioning, Safety Issues Teaching Recipient: Patient Teaching Methods: Discussion Response to Teaching: Verbalize Understanding Time/GCodes Time In: 1000 Time Out: 1100 Total Billed Treatment Time: 60 Total Billed Treatment 1, GT (20m), EX x2 (30m) & FA (10m) MELLISSA RANGEL BLEACH MIXER Jan 18, 2019 11:17
--- NOTE | 2019-01-18 11:37 | NUR ---
RD FOLLOW-UP PMHx: CAD, HTN, GERD, ETOH Abuse, AMS Pt was awake and pleasant during follow-up. Pt states current appetite is good. Pt states no current issues with n/v/d/c at this time. Pt states last BM was this AM. Abnormal nutrition-related lab values: Ca 8.2 (L); glu 108 (H) Est. kcal needs: 4443-9017 kcal (25-30 kcal/kg) Est Pro needs: 67-85 g Pro (0.8-1.0 g Pro/kg) PES Statement: No nutritional diagnosis at this time. INTERVENTION: Continue with current diet order of regular diet. MONITOR/EVALUATE: Wt Status PO Intake Hydration Status Lab values Marilu Holland, MS, RD [phone]
--- NOTE | 2019-01-18 13:58 | Physical Therapy Daily Note ---
PT Daily Note-Current Subjective Pt sitting up in bed upon arrival. Pt agrees to PT. Pain Location: No Pain Reported Mental Status Patient Orientation: Person, Place, Time, Situation Transfers Therapy Code Descriptions/Definitions Functional [place] Measure: 0=Not Assessed/NA 4=Minimal Assistance 1=Total Assistance 5=Supervision or Setup 2=Maximal Assistance 6=Modified [place] 3=Moderate Assistance 7=Complete [place] Therapy Quality Codes: 6 Independent with activity with or without an assistive device 5 Patient requires set up or clean up by helper. Patient completes activity by themselves 4 Supervision or touching assist (CGA). [place] provide cues , steadying assist 3 The helper provides less than half the effort to complete the activity 2 The helper provides more than half the effort to complete the activity 1 Dependent. The helper does all the effort to complete an activity 7 Patient refused to complete or attempt activity 9 The patient did not perform the activity before the current illness or injury 88 Not attempted due to Medical conditions or safety concerns Scootin Sit to/from Stand: 5 Sit to Stand (QC): 5 Weight Bearing Right Lower Extremity: Right Weight Bearing/Tolerated Left Lower Extremity: Left Weight Bearing/Tolerated Gait Training Does the Patient Walk?: Yes Gait (FIM): 5 Distance (FIM): 3=150 ft Distance: 300' Walk 10 feet (QC): 5 Walk 50 ft with 2 Turns(QC): 5 Walk 150 ft (QC): 5 Gait Level of Assist: 5 Gait Persons Needed: 1 Gait Assistive Device: FWW Pt walks with slow yuliana, steady gait. Wheelchair Training Does the Pt Use a Wheelchair?: No Treatments Pt transfers from bed to standing then uses restroom. Pt ambulates in hallway with standing RB as needed. Pt returns to room to rest Supine in bed. Pt has all needs met, call light in hand. Assessment Current Status: Good Progress Pt still fatigues but has CHF so will have some SOA. PT Short Term Goals Short Term Goals Transfers (B,C,W/C) (FIM): 5 (met- SBA) PT Prep Manager Goals Mcc Goals PT Mcc Goals Time Frame: Feb 03, 2019 Transfers (B,C,W/C) (FIM): 6 Sit to Lying (QC): 6 Lying-Sitting on Side/Bed(QC): 6 Sit to Stand (QC): 6 Rollin Roll Left to Right (QC): 6 Chair/Ban-ps-Buulm Xfer(QC): 6 Car Transfer (QC): 6 Does the Patient Walk: Yes Gait (FIM): 6 Gait distance (FIM): 3=150 ft Distance: 250' Walk 10 feet (QC): 6 Walk 10ft-Uneven Surface(QC): 6 Walk 50ft with 2 Turns (QC): 6 Walk 150 ft (QC): 6 Gait Level of Assist: 6 Gait Assistive Device: FWW Stairs (FIM): 2 # of Steps: 4 1 Step (curb) (QC): 6 4 Steps (QC): 6 12 Steps (QC): 9 Stairs Level Of Assist: 6 Picking up an Object (QC): 6 PT Plan Problem List Problem List: Activity Tolerance, Functional Strength Treatment/Plan Treatment Plan: Continue Plan of Care Treatment Plan: Bed Mobility, Education, Functional Activity Jordy, Functional Strength, Group Therapy, Gait, Safety, Therapeutic Exercise, Transfers Treatment Duration: Feb 03, 2019 Frequency: At least 5 of 7 days/Wk (IRF) Estimated Hrs Per Day: 1.5 hours per day Patient and/or Family Agrees t: Yes Safety Risks/Education Patient Education: Gait Training, Transfer Techniques, Correct Positioning, Safety Issues Teaching Recipient: Patient Teaching Methods: Discussion Response to Teaching: Verbalize Understanding Time/GCodes Time In: 1300 Time Out: 1330 Total Billed Treatment Time: 30 Total Billed Treatment 1, GT x2 (30m) MELLISSA RANGEL CENTER DIRECTOR Jan 18, 2019 13:58
--- NOTE | 2019-01-18 14:38 | Cardiology Progress Note ---
Cardiology SOAP Progress Note Subjective: No significant cardiac complaints. Objective: I&O/Vital Signs 01/18/19 01/18/19 01/18/19 05:56 07:28 09:00 Temp 36.6 Pulse 86 Resp 20 B/P (MAP) 151/65 (93) Pulse Ox 95 96 O2 Delivery Room Air Room Air Room Air 01/18/19 00:00 Intake Total 1510 ml Balance 1510 ml Weight (Pounds): 191 Weight (Ounces): 0.0 Weight (Calculated Kilograms): 86.969178 Constitutional: AAO x 3, well-developed, well-nourished Respiratory: No accessory muscle use, No respiratory distress; chest expansion is symmetric, chest is bilaterally symmetric, rhonchi (scattered), other (prolonged expiratory phase) Cardiovascular: regular rate-rhythm; No JVD; S1 and S2, systolic murmur Gastrointestional: No tender; soft, audible bowel sounds Extremities: other (mild bilat LE swelling) Neurologic/Psychiatric: no motor/sensory deficits, alert, grossly intact Skin: No rash on exposed areas, No ulcerations on exposed areas; other (multiple bruises to arms/legs bilat with abrasions; drsg to left elbow D&I) A/P: Assessment/Dx: Bruising and oozing of bleed from iv sites and from minor injuries, improving AMS of undetermined etiology, probably related to alcohol withdrawal, managed by the Hospitalist Svce - improved PAF Anemia of undetermined etiology - being managed the Hospitalist/Medical Svce Hypertension - uncontrolled H/o mild to mod pancytopenia being during admission of Dec 23-Dec 4 OAC with Sue Upper and lower endoscopy of 12-27-[address] 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 This is of unknown age. There is mild to moderate narrowing of the proximal basilar artery. Per CTA of 01-02-19 Recent weight loss of approx 30 lbs of undetermined etiology CAD - Cardiac cath of 09/19/18 showed patent RCA stents that were place in Apr 2016: Alpine Xience 3.5 x 15 mm prox and Alpine Xience 3.0 x 15 mm distally, postdilated with a 3.5 mm balloon, The rest of the vessels have diffuse, mod disease. LVEF 50-55%. Normal LVEDP Echocardiogram of December 24, [address] Jimenez concentric hypertrophy. LVEF 45-50%. Grade 1 diastolic dysfunction. AoV thickening consistent with sclerosis with mild regurg. PASP 15-20mmHg. Severe ostial left renal artery stenosis with subsequent percutaneous transluminal angioplasty and residual minimal stenosis, no dissection or distal embolization by Dr. Keen at [facility] in [place], [place] in the early CT of the chest from August 2016 showed borderline adenopathy in the axillary regions and in the subcarinal space. 7 mm pulmonary nodule in the RUL. This is followed by Dr Toya MENDOZA, treated with CPAP, followed by Dr Pittman Mild carotid arterial disease on carotid u/s of 09/21/18 PAD - PCI of the right anterior tibial, posterior tibial and peroneal with Medtronic Nitinol 4mm x 20mm stent in the right posterior tibial December 08, [address] Langston in [place], [place]. Peripheral angio of 09/19/18: Infrarenal AAA, mod in size, just above aorto iliac bifurcation; mod diff disease of the sup fems and distal leg circulation on both sides. Patent R post tib stent HLP - statin therapy followed by his PCP - currently being withheld d/t recent episode of pancreatitis Emphysema GERD H/o pancreatitis in the past - managed by PCP EKG of 11-03-15 showed LVH with repolarization abnormality and LAFB; not significantly changed on 09/13/18 CKD stage 2-3 H/o heavy ETOH use Tobaccoism - 2 PPD Plan: Plan: * Continue Low-dose apixaban * Monitor labs * BP not well controlled, increase Toprol XL to 200mg in the morning * Stop Lisinopril since he is also on Cozaar Thank you for your consultation. Please call me if you have any questions. Dennis Husain MD, FACP, FACC, FSCAI, FHRS, CCDS Interventional Cardiology Cardiac Electrophysiology Vascular Medicine and Endovascular Interventions Brandon HUSAIN MD Jan 18, 2019 14:38
[2019-01-18 17:02] VITALS: BP 151/77
[2019-01-18] MEDS: MONTELUKAST 10 MG (SINGULAIR) TAB PO SCH (20:07)
[2019-01-18] MEDS: LORazepam 0.5 MG (ATIVAN) TABLET PO PRN (20:07)
--- NOTE | 2019-01-18 23:30 | NUR ---
Pt heard calling out for help. Pt found on floor between his bed and the door. States he was sitting on the side of the bed and trying to use the urinal by himself and feet slipped out from under him and he fell to floor. Multiple skin tears noted to left lower arm and one to elbow noted. Areas cleaned and dressed. A large skin tear noted to side of PICC line dressing. This area also cleansed and dressing applied. Pt refuses to let this RN take off PICC line dressing and apply new one. States the area is too tender right now to do that. VS 36.2 77 20 173/90 96% on room air and denies pain. Pt assisted back to bed and all 4 bed rails are up as well as bed alarm activated. Dr. Groves notified at 0000 and will notify pt's in am. Cont to monitor. Call light and urinal in reach.
[2019-01-19 05:18] VITALS: BP 167/77
[2019-01-19] MEDS: CATHETER FLUSH 10 ML SYR IV SCH ×3 (05:52→20:09)
[2019-01-19] MEDS: FOLIC ACID 1 MG TAB PO SCH (06:03)
[2019-01-19] MEDS: MULTIVIT W/MINERALS TAB (THERAGRAN M) PO SCH (06:03)
[2019-01-19 09:17] VITALS: BP 149/76
[2019-01-19] MEDS: LORATADINE (CLARITIN) 10 MG TAB PO SCH (09:18)
[2019-01-19] MEDS: LOSARTAN 100 MG (COZAAR) TABLET PO SCH (09:18)
[2019-01-19] MEDS: APIXABAN 2.5 MG (ELIQUIS) TABLET PO SCH ×2 (09:18→20:09)
[2019-01-19] MEDS: LORazepam 0.5 MG (ATIVAN) TABLET PO PRN ×2 (09:18→17:40)
[2019-01-19] MEDS: meTOprolol SUCCINATE 100 MG (TOPROL XL) TAB PO SCH ×2 (09:18→20:09)
[2019-01-19] MEDS: ASPIRIN 81 MG CHEW (CHILDREN'S ASA) PO SCH (09:18)
[2019-01-19] MEDS: amLODIPine 5 MG (NORVASC) TAB PO SCH (09:18)
[2019-01-19] MEDS: PANTOPRAZOLE 20 MG TABLET (PROTONIX) PO SCH (09:19)
--- NOTE | 2019-01-19 10:09 | Occupational Ther Daily Note ---
OT Current Status-Daily Note Subjective Pt seen in recliner chair eating breakfast. Pt utilizing built up handles with success. Pt states he fell the day before in the night; states, "To be honest with you I'm not sure what I was doing." Pt states he stood at walker from EOB, felt weak and fell to the L. Pt states no pain but caused abrasions on L arm. Pt states a little tight today. Agreeable to services. Mental Status/Objective Patient Orientation: Normal For Age Therapy Code Descriptions/Definitions Functional [place] Measure: 0=Not Assessed/NA 4=Minimal Assistance 1=Total Assistance 5=Supervision or Setup 2=Maximal Assistance 6=Modified [place] 3=Moderate Assistance 7=Complete [place] ADL-Treatment Therapy Code Descriptions/Definitions Functional [place] Measure: 0=Not Assessed/NA 4=Minimal Assistance 1=Total Assistance 5=Supervision or Setup 2=Maximal Assistance 6=Modified [place] 3=Moderate Assistance 7=Complete [place] Therapy Quality Codes: 6 Independent with activity with or without an assistive device 5 Patient requires set up or clean up by helper. Patient completes activity by themselves 4 Supervision or touching assist (CGA). [place] provide cues , steadying assist 3 The helper provides less than half the effort to complete the activity 2 The helper provides more than half the effort to complete the activity 1 Dependent. The helper does all the effort to complete an activity 7 Patient refused to complete or attempt activity 9 The patient did not perform the activity before the current illness or injury 88 Not attempted due to Medical conditions or safety concerns Eating (FIM): 6 (Built up handles used.) Eating (QC): 6 Upper Body (FIM): 4 (Pt dressed with robe with min A dur to difficulty placeing R arm through sleeve.) Upper Body Dressing (QC): 3 On/Off Footwear (QC): 6 (increased time.) Other Treatment Pt sit to stand with CGA due to stated weakness. Pt ambulates with CGA to therapy gym with FWW. Pt denies standing during activity. Pt completes three jaw mook pinching activity with large graded pegs, able to complete all colors with increased time. 5 colored pattern laid in front of pt with request to replicate. Pt required increased time, self correcting 3 times due to grabbing wrong color. Pt completes pattern with no errors with pattern modeled. Pt asked to remember 3 colors to repeat pattern on peg board. Pt given 30 seconds to remember pattern. Model removed. Pt completes pattern with 33% accuracy, placing first color in correct order, only gathering 2/3 correct colors, placing in wrong order. After removing incorrectly colored clothes pin, pt able to state correct color but unable to demonstrate competency for correct order. Pt requires cues during activity to exhale during pinching due to holding breath. Pt demonstrates abilities 2x during activity immediately following direction, pt returns to holding breath during task, requiring cues throughout. Pt completes tip to tip pinching activity with small pegs, completing clothes pin italia game. Upon request, pt not able to remember rules or purpose of game. Pt unable to remember # of pins per person. Pt unable to discriminate directions on box if 3 people were to play, pt requires verbal direction for correct pegs to pass out after directions are read. Pt completes game with 1# weight on R arm, crosses midline throughout game. Pt demonstrates fair+ motor control/ manipulation of tasks. Pt utilizes FWW to walk to room, requiring rest break. Pt takes 3 minute break and returns to recliner chair, call light in reach, all needs met. Education OT Patient Education: Correct positioning, Energy conservation, Exercise program, Modified ADL techniques, Purpose of tx/functional activities, Reviewed precautions, Rehab process, Safety issues, Transfer techniques, Use of adapted equipment Teaching Recipient: Patient Teaching Methods: Demonstration, Discussion Response to Teaching: Verbalize Understanding, Return Demonstration OT Short Term Goals Short Term Goals Upper Body Dressing(FIM): 6 (met) Lower Body Dressing(FIM): 3 (met) Transfers (B,C,W/C) (FIM): 5 (met- SBA) 1=Demonstrate adherence to instructed precautions during ADL tasks. 2=Patient will verbalize/demonstrate understanding of assistive devices/modifications for ADL. 3=Patient will improve strength/tolerance for activity to enable patient to perform ADL's. OT Care Home Goals Care Home Goals Eating (FIM): 7 (met) Eating (QC): 6 (met) Groomin Oral Hygiene (QC): 6 Bathing(FIM): 6 Shower/Bathe Self (QC): 6 Upper Body Dressing(FIM): 6 (met) Upper Body Dressing (QC): 6 (met) Lower Body Dressing(FIM): 6 Lower Body Dressing (QC): 6 On/Off Footwear (QC): 6 (met) Toileting(FIM): 5 Toileting Hygiene (QC): 6 Transfers (B,C,W/C) (FIM): 6 Toilet/Commode Transfer(FIM): 5 Toilet/Commode Transfer (QC): 4 Tub Transfer(FIM): 5 (met) Shower Transfer(FIM): 5 Additional Goals: 1-Demonstrate ADL Tasks, 2-Verbalize Understanding, 3- ImproveStrength/Jordy 1=Demonstrate adherence to instructed precautions during ADL tasks. 2=Patient will verbalize/demonstrate understanding of assistive devices/modifications for ADL. 3=Patient will improve strength/tolerance for activity to enable patient to perform ADL's. OT Education/Plan Problem List/Assessment Assessment: Decreased Activ Tolerance, Decreased Safety Aware, Decreased UE Strength, Impaired Funct Balance, Impaired I ADL's, Impaired Self-Care Skills Discharge Recommendations Plan/Recommendations: Continue POC Treatment Plan/Plan of Care Treatment,Training & Education: Yes Patient would benefit from OT for education, treatment and training to promote independence in ADL's, mobility, safety and/or upper extremity function for ADL's. Plan of Care: ADL Retraining, Caregiver Training, Cognitive Retraining, Functional Mobility, Group Exercise/Act as Ind, UE Funct Exercise/Act, UE Neuromus Re-Ed/Coord Treatment Duration: Jan 09, 2019 Frequency: 5 times per week Estimated Hrs Per Day: 1 hour per day (1-1.5 hours per day) Agreement: Yes Rehab Potential: Fair Time/GCodes Start Time: 08:00 Stop Time: 09:00 Total Time Billed (hr/min): 60 Billed Treatment Time 1 EX x4 (60) JOANA MENDOZA OTR Jan 19, 2019 10:09
--- NOTE | 2019-01-19 10:29 | Physical Therapy Daily Note ---
PT Daily Note-Current Subjective Pt sitting in recliner upon arrival. Pt agrees to PT. Pt reports no pain from fall last night but pt demonstrates more stiffness and soreness this morning. Pain Location: No Pain Reported Mental Status Patient Orientation: Person, Place, Time, Situation Transfers Therapy Code Descriptions/Definitions Functional [place] Measure: 0=Not Assessed/NA 4=Minimal Assistance 1=Total Assistance 5=Supervision or Setup 2=Maximal Assistance 6=Modified [place] 3=Moderate Assistance 7=Complete [place] Therapy Quality Codes: 6 Independent with activity with or without an assistive device 5 Patient requires set up or clean up by helper. Patient completes activity by themselves 4 Supervision or touching assist (CGA). [place] provide cues , steadying assist 3 The helper provides less than half the effort to complete the activity 2 The helper provides more than half the effort to complete the activity 1 Dependent. The helper does all the effort to complete an activity 7 Patient refused to complete or attempt activity 9 The patient did not perform the activity before the current illness or injury 88 Not attempted due to Medical conditions or safety concerns Scootin Sit to/from Stand: 5 Sit to Stand (QC): 5 Weight Bearing Right Lower Extremity: Right Weight Bearing/Tolerated Left Lower Extremity: Left Weight Bearing/Tolerated Gait Training Does the Patient Walk?: Yes Gait (FIM): 5 Distance (FIM): 3=150 ft Distance: 150' Walk 10 feet (QC): 5 Walk 50 ft with 2 Turns(QC): 5 Walk 150 ft (QC): 5 Gait Level of Assist: 5 Gait Persons Needed: 1 Gait Assistive Device: FWW Wheelchair Training Does the Pt Use a Wheelchair?: No Exercises Seated Therapy Exercises: Ankle pumps, Long arc quads, Hip flexion, Kicking activity Seated Reps: 15 NuStep Minutes: 7 NuStep Workload: 4 Treatments Pt transfers from recliner to standing and uses restroom before ambulating in hallway. Pt uses NuStep for 7m at WL 4 (intermittent RB for fatigue and discomfort). Pt takes RB before completing Seated EX in chair. Pt returns to room to rest in recliner at end of tx with all needs met, call light in hand. Assessment Current Status: Fair Progress Pt demonstrates discomfort with movement but denies pain. Pt moves with increased stiffness and soreness compared to before his fall. PT Short Term Goals Short Term Goals Transfers (B,C,W/C) (FIM): 5 (met- SBA) PT Fdc Goals Security Control Room Officer Goals PT Security Control Room Officer Goals Time Frame: Feb 03, 2019 Transfers (B,C,W/C) (FIM): 6 Sit to Lying (QC): 6 Lying-Sitting on Side/Bed(QC): 6 Sit to Stand (QC): 6 Rollin Roll Left to Right (QC): 6 Chair/Jtx-ay-[id number] Xfer(QC): 6 Car Transfer (QC): 6 Does the Patient Walk: Yes Gait (FIM): 6 Gait distance (FIM): 3=150 ft Distance: 250' Walk 10 feet (QC): 6 Walk 10ft-Uneven Surface(QC): 6 Walk 50ft with 2 Turns (QC): 6 Walk 150 ft (QC): 6 Gait Level of Assist: 6 Gait Assistive Device: FWW Stairs (FIM): 2 # of Steps: 4 1 Step (curb) (QC): 6 4 Steps (QC): 6 12 Steps (QC): 9 Stairs Level Of Assist: 6 Picking up an Object (QC): 6 PT Plan Problem List Problem List: Activity Tolerance, Functional Strength, Safety Treatment/Plan Treatment Plan: Continue Plan of Care Treatment Plan: Bed Mobility, Education, Functional Activity Jordy, Functional Strength, Group Therapy, Gait, Safety, Therapeutic Exercise, Transfers Treatment Duration: Feb 03, 2019 Frequency: At least 5 of 7 days/Wk (IRF) Estimated Hrs Per Day: 1.5 hours per day Patient and/or Family Agrees t: Yes Safety Risks/Education Patient Education: Gait Training, Transfer Techniques, Correct Positioning, Safety Issues Teaching Recipient: Patient Teaching Methods: Discussion Response to Teaching: Verbalize Understanding Time/GCodes Time In: 930 Time Out: 1030 Total Billed Treatment Time: 60 Total Billed Treatment 1, GT (15m), FA (15m) & EX x2 (30m) MELLISSA RANGEL PATROL MAN Jan 19, 2019 10:29
[2019-01-19] MEDS ORDERED: methylPREDNISolone 40 MG/ML (Solu-MEDROL) VIAL IV SCH (10:30)
--- NOTE | 2019-01-19 10:58 | PM&R Progress Note ---
Subjective HPI/CC On Admission Date Seen by Provider: Jan 19, 2019 Time Seen by Provider: 08:30 CC: Debility from alcoholism and altered mental status HPI: This is a 73yoWM who was admitted nearly a week ago of Dr. Macias's who presented with altered mental status found to have significant alcohol withdrawal of which his was unaware that he was drinking alcohol but he was provided supportive care and subsequently has become quite debilitated overall. Smoking cessation has been counseled along with alcohol cessation. He is a retired [employer] for 35 years in [place]. He does report that he is needing to cut down on his alcohol. At this current time pt denies any significant pain, meds were reviewed, and will be continued on inpatient rehab. He has become incontinent and is need of further recovery before DC is planned. HPI per ELMER Martinez Sebastien Toledo is a 73-year-old male with past medical history of hypertension, coronary artery disease, GERD, and ETOH abuse who was recently admitted for AMS; his hospital stay was complicated by alcohol withdrawal. 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 CVA was suspected but ruled out via CT and clinical picture which was more consistent with ETOH withdrawal rather than CT. No MRI was done. Alcohol abuse was managed via activating CIWA protocol, giving thiamine and Folic acid. Pt was recently diagnosed with Paroxysmal Afib and was followed by Cardiology who ordered an Echo and started him on Eliquis. Pt's last stay also involved Macrocytic anemia which required transfusions and continued tx with folic acid. After pt was stabilized he was transitioned to inpatient rehabilitation on 01/08/19. I was consult for evaluation of restless leg symptoms. Patient reports last couple of evenings beginning shortly after getting into bed he will develop uncomfortable sensation in his legs that is only alleviated by moving them. He's had this in the past and I have not prescribed medication for him but his had either Mirapex her ropinirole he has taken her medication with release of his symptoms. He does have anemia with a low folate level that is macrocytic that with a history of esophagitis poor nutritional status from alcoholism iron deficiency is highly likely as well. He denies melena or bright red blood per rectum and denies abdominal pain. He is back to baseline mental status after b eing admitted with altered mental status and delirium. This is likely due to alcohol withdrawal. Subjective/Events-last exam Pt fell through the night going to the bathroom by himself. Overall prognosis in question because of this fall. Very well may need a care home. Pt's bowels are moving. No urinary problems. Off Prednisone now. Very complex case given his long-standing alcoholism definitely has placed him at a debilitating status. Conferred with RN. Reviewed therapy notes. Checked meds and labs. Review of Systems General: Fatigue Objective Exam Vital Signs Vital Signs Date Time Temp Pulse Resp B/P (MAP) Pulse Ox O2 Delivery O2 Flow Rate FiO2 01/19/19 20:00 Room Air 01/19/19 17:38 37.0 80 20 129/63 (85) 97 Capillary Refill : General Appearance: No Apparent Distress, WD/WN, Chronically ill HEENT: PERRL/EOMI, Normal ENT Inspection, Pharynx Normal, Moist Mucous Membranes Neck: Full Range of Motion, Normal Inspection, Non Tender, Supple Respiratory: Chest Non Tender, Lungs Clear, Normal Breath Sounds, No Accessory Muscle Use, No Respiratory Distress Cardiovascular: Regular Rate, Rhythm, No Edema, No Gallop, No JVD, No Murmur Gastrointestinal: Normal Bowel Sounds, No Organomegaly, No Pulsatile Mass, Non Tender, Soft Back: Normal Inspection, No CVA Tenderness, No Vertebral Tenderness Extremity: Normal Capillary Refill, Normal Inspection, Normal Range of Motion, Non Tender, No Calf Tenderness, No Pedal Edema Neurologic/Psychiatric: Alert, Oriented x3, No Motor/Sensory Deficits, Normal Mood/Affect, Disoriented Skin: Normal Color, Warm/Dry Lymphatic: No Adenopathy Results/Procedures Lab Laboratory Tests 01/19/19 18:33 Patient resulted labs reviewed. FIM Transfers Therapy Code Descriptions/Definitions Functional [place] Measure: 0=Not Assessed/NA 4=Minimal Assistance 1=Total Assistance 5=Supervision or Setup 2=Maximal Assistance 6=Modified [place] 3=Moderate Assistance 7=Complete [place] Therapy Quality Codes: 6 Independent with activity with or without an assistive device 5 Patient requires set up or clean up by helper. Patient completes activity by themselves 4 Supervision or touching assist (CGA). [place] provide cues , steadying assist 3 The helper provides less than half the effort to complete the activity 2 The helper provides more than half the effort to complete the activity 1 Dependent. The helper does all the effort to complete an activity 7 Patient refused to complete or attempt activity 9 The patient did not perform the activity before the current illness or injury 88 Not attempted due to Medical conditions or safety concerns Transfers (B, C, W/C) (FIM): 5 (SBA) Scootin Rollin Roll Left to Right (QC): 5 Supine to/from Sit: 5 Sit to/from Stand: 5 Sit to Lying (QC): 5 Sit to Stand (QC): 5 Chair/Vhe-ap-Tzckg Xfer(QC): 4 Bed to/from Chair: 5 Car Transfer (QC): 5 Gait Training Does the Patient Walk?: Yes Gait (FIM): 5 Distance (FIM): 3=150 ft Distance: 300' Walk 10 feet (QC): 5 Walk 50 ft with 2 Turns(QC): 5 Walk 150 ft (QC): 5 Walking 10ft/uneven surface-QC: 4 Gait Level of Assist: 5 Gait Persons Needed: 1 Gait Assistive Device: FWW Wheelchair Training Does the Pt Use a Wheelchair?: No Stair Training Stairs (FIM): 1 #of Steps: 1 1 Step (curb) (QC): 4 4 Steps (QC): 9 12 Steps (QC): 9 Level of Assist: 4 Mental Status/Objective Comprehension: 7 Expression: 7 Social Interaction: 7 Problem Solvin Memory: 7 ADL-Treatment Feedin (Pt used built up handles for handling food items on this date. Pt states use of large built up handle "feels good", motor control good with built up. Pt cuts food with R while stabilizing with L with both utensils built-up) Eating (QC): 6 Groomin (SUP at sink, use of FWW for support.) Oral Hygiene (QC): 5 (SUP at sink) Bathin (SBA during stance. Pt requests to wash back/ bottom/ feet with long handled sponge while in stance as he does at home. Pt stood (SBA), good use of grab bars and fair coordination. Pt demonstrates SOB during tasks, cues for pursed lip breathing during activity. ) Shower/Bathe Self (QC): 4 (SBA and cues ) Upper Extremity Dressin (Sitting on chair.) Upper Body Dressing (QC): 6 Lower Extremity Dressin (SBA during stance to pull up, pt completes threading activity seated in chair.) Lower Body Dressing (QC): 5 (SBA in stance.) On/Off Footwear (QC): 6 (Sitting on chair, increased time. Pt used shoe horn to adjust to fit.) Toiletin (SBA for safety during stance for wiping after BM) Toileting Hygiene (QC): 5 (s/u) Toilet/Commode Transfer: 4 (SBA, use of FWW and grab bars. Good motor control on this date.) Toilet Transfer (QC): 5 (SBA) Tub: 5 (SBA) Shower: 5 (SBA, use of grab bars and FWW.) Assessment/Plan Assessment and Plan Assess & Plan/Chief Complaint Plan: IRF protocol Supportive care Delirium monitoring ETOH cessation Hold laxatives until needed RLS per PCP consultation Nebs to maintain when necessary Ativan as needed Monitor urinary system Eliquis and aspirin restarted per cardiology Monitor falls UTI acute placed on Rocephin empirically (1) Debility Status: Acute (2) Hypokalemia Status: Acute (3) Folate deficiency Status: Acute (4) Pancytopenia Status: Acute (5) Interstitial lung disease Status: Chronic (6) Weight loss, unintentional Status: Chronic (7) CAD (coronary artery disease) Status: Chronic Qualifiers: Coronary Disease-Associated Artery/Lesion type: elem artery [place] vs. transplanted heart: elem heart Associated angina: without angina Qualified Codes: I25.10 - Atherosclerotic heart disease of elem coronary artery without angina pectoris (8) HTN (hypertension) Status: Chronic Qualifiers: Hypertension type: essential hypertension Qualified Codes: I10 - Essential (primary) hypertension (9) Nausea & vomiting Status: Acute Qualifiers: Vomiting type: unspecified (10) Atrial fibrillation with rapid ventricular response Status: Acute (11) Hypomagnesemia Status: Acute (12) Vertebral artery occlusion Status: Chronic Qualifiers: Laterality: unspecified laterality Qualified Codes: I65.09 - Occlusion and stenosis of unspecified vertebral artery (13) Aphasia Status: Acute (14) Altered mental status Status: Resolved Resolution Date/Time: 01/07/19 @ 11:56 (15) Alcohol dependence Status: Resolved Resolution Date/Time: 01/07/19 @ 11:56 Qualifiers: 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
--- NOTE | 2019-01-19 11:23 | Progress Note - Hospitalist ---
Standard Progress Note HPI/CC on Admission CC: Debility from alcoholism and altered mental status HPI: This is a 73yoWM who was admitted nearly a week ago of Dr. Macias's who presented with altered mental status found to have significant alcohol withdrawal of which his was unaware that he was drinking alcohol but he was provided supportive care and subsequently has become quite debilitated overall. Smoking cessation has been counseled along with alcohol cessation. He is a retired [employer] for 35 years in [place]. He does report that he is needing to cut down on his alcohol. At this current time pt denies any significant pain, meds were reviewed, and will be continued on inpatient rehab. He has become incontinent and is need of further recovery before DC is planned. HPI per ELMER Martinez Sebastien Toledo is a 73-year-old male with past medical history of hypertension, coronary artery disease, GERD, and ETOH abuse who was recently admitted for AMS; his hospital stay was complicated by alcohol withdrawal. 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 CVA was suspected but ruled out via CT and clinical picture which was more consistent with ETOH withdrawal rather than CT. No MRI was done. Alcohol abuse was managed via activating CIWA protocol, giving thiamine and Folic acid. Pt was recently diagnosed with Paroxysmal Afib and was followed by Cardiology who ordered an Echo and started him on Eliquis. Pt's last stay also involved Macrocytic anemia which required transfusions and continued tx with folic acid. After pt was stabilized he was transitioned to inpatient rehabilitation on 01/08/19. I was consult for evaluation of restless leg symptoms. Patient reports last couple of evenings beginning shortly after getting into bed he will develop uncomfortable sensation in his legs that is only alleviated by moving them. He's had this in the past and I have not prescribed medication for him but his had either Mirapex her ropinirole he has taken her medication with release of his symptoms. He does have anemia with a low folate level that is macrocytic that with a history of esophagitis poor nutritional status from alcoholism iron deficiency is highly likely as well. He denies melena or bright red blood per rectum and denies abdominal pain. He is back to baseline mental status after being admitted with altered mental status and delirium. This is likely due to alcohol withdrawal. Progress Notes/Assess & Plan Date Seen 01/19/19 Time Seen by Provider: 10:30 Assess & Plan/Chief Complaint 1. Restless legs syndrome likely aggravated by iron deficiency anemia. I will order anemia analyzer we'll give 1 mg of ropinirole at at bedtime tonight and plan iron and dextran infusion 1 g in the morning after a test dose. We'll follow-up on Tuesday. 2. Likely panic attack possibly aggravated by lingering alcohol withdrawal continue when necessary IV Ativan. Short Stay Final Diagnosis Patient apparently got up last night to go to the bathroom without the use of his walker. He fell on his left arm sustaining some skin tears. He reports no significant pain this morning. Physical therapy states that he shows very poor safety awareness and without his walker is still quite unstable needing standby assistance. He reports restless leg symptoms have not been trouble some for him since receiving IV iron. He voices no other complaints and denies diarrhea or abdominal pain. He is feeling less anxious. Examination reveals a frail elderly white male who did not appear to be in acute distress. Vital signs of been stable chest clear to auscultation. CV reveals a regular rate and rhythm without severe murmur S3 or S4. Extremities reveal thin skin he has some mild swelling about the left wrist with normal range of motion with no pain on range of motion and normal alignment of the left wrist with the skin tear over the lateral aspect of his left fifth digit and medial right wrist no active bleeding noted. Extremities reveal 1+ edema with senile purpura no ulceration. Assessment/plan 1. Debility multifactorial secondary to malnutrition and chronic pancreatitis due to alcoholism. 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 Discussed the importance of only getting up with assistance and the use of his walker. If there is not significant improvement in safety awareness and strengthening is still significant fall risk may have to talk about transfer to a long-term care facility. 2. Restless leg syndrome aggravated by iron deficiency anemia most likely improved post IV iron. ELMER MACIAS MD Jan 19, 2019 11:23
--- NOTE | 2019-01-19 11:48 | Occupational Ther Daily Note ---
OT Current Status-Daily Note Subjective Pt alert, sitting in recliner. Pt agrees to therapy. No c/o pain. Pt demonstrated fatigue and decreased activity tolerance during tasks. Mental Status/Objective Patient Orientation: Person, Place, Time, Situation Therapy Code Descriptions/Definitions Functional [place] Measure: 0=Not Assessed/NA 4=Minimal Assistance 1=Total Assistance 5=Supervision or Setup 2=Maximal Assistance 6=Modified [place] 3=Moderate Assistance 7=Complete [place] ADL-Treatment Therapy Code Descriptions/Definitions Functional [place] Measure: 0=Not Assessed/NA 4=Minimal Assistance 1=Total Assistance 5=Supervision or Setup 2=Maximal Assistance 6=Modified [place] 3=Moderate Assistance 7=Complete [place] Therapy Quality Codes: 6 Independent with activity with or without an assistive device 5 Patient requires set up or clean up by helper. Patient completes activity by themselves 4 Supervision or touching assist (CGA). [place] provide cues , steadying assist 3 The helper provides less than half the effort to complete the activity 2 The helper provides more than half the effort to complete the activity 1 Dependent. The helper does all the effort to complete an activity 7 Patient refused to complete or attempt activity 9 The patient did not perform the activity before the current illness or injury 88 Not attempted due to Medical conditions or safety concerns Other Treatment Pt able to remember one exercise using medium resistance theraband, though unable to remember number of reps to be completed. Pt unable to remember any th eraband exercises given at previous session. Pt able to complete 3 exercises with medium resistance theraband with verbal cues and multiple breaks while completing 10 reps. Pt would hold breath while completing exercises and become SOA, cues to breath during exercises. After therapy, pt sitting in recliner with call light/phone in reach. present in room. OT Short Term Goals Short Term Goals Upper Body Dressing(FIM): 6 (met) Lower Body Dressing(FIM): 3 (met) Transfers (B,C,W/C) (FIM): 5 (met- SBA) 1=Demonstrate adherence to instructed precautions during ADL tasks. 2=Patient will verbalize/demonstrate understanding of assistive devices/modifications for ADL. 3=Patient will improve strength/tolerance for activity to enable patient to perform ADL's. OT Halfway Goals Chairman & Chief Executive Officer Goals Eating (FIM): 7 (met) Eating (QC): 6 (met) Groomin Oral Hygiene (QC): 6 Bathing(FIM): 6 Shower/Bathe Self (QC): 6 Upper Body Dressing(FIM): 6 (met) Upper Body Dressing (QC): 6 (met) Lower Body Dressing(FIM): 6 Lower Body Dressing (QC): 6 On/Off Footwear (QC): 6 (met) Toileting(FIM): 5 Toileting Hygiene (QC): 6 Transfers (B,C,W/C) (FIM): 6 Toilet/Commode Transfer(FIM): 5 Toilet/Commode Transfer (QC): 4 Tub Transfer(FIM): 5 (met) Shower Transfer(FIM): 5 Additional Goals: 1-Demonstrate ADL Tasks, 2-Verbalize Understanding, 3- ImproveStrength/Jordy 1=Demonstrate adherence to instructed precautions during ADL tasks. 2=Patient will verbalize/demonstrate understanding of assistive devices/modifications for ADL. 3=Patient will improve strength/tolerance for activity to enable patient to perform ADL's. OT Education/Plan Problem List/Assessment Assessment: Decreased Activ Tolerance, Decreased UE Strength Discharge Recommendations Plan/Recommendations: Continue POC Treatment Plan/Plan of Care Patient would benefit from OT for education, treatment and training to promote independence in ADL's, mobility, safety and/or upper extremity function for ADL's. Plan of Care: ADL Retraining, Caregiver Training, Cognitive Retraining, Functional Mobility, Group Exercise/Act as Ind, UE Funct Exercise/Act, UE Neuromus Re-Ed/Coord Treatment Duration: Jan 09, 2019 Frequency: 5 times per week Estimated Hrs Per Day: 1 hour per day (1-1.5 hours per day) Agreement: Yes Rehab Potential: Fair Time/GCodes Start Time: 11:00 Stop Time: 11:30 Total Time Billed (hr/min): 30 Billed Treatment Time 1 visit-EX 2 (30 min) GEOVANI VAZQUEZ Jan 19, 2019 11:48
--- NOTE | 2019-01-19 12:55 | NUR ---
Assumed care of patient. Report rec'd from STEPHANIA Lynne. Addendum: 01/19/19 at 1817 by OSCAR SANZ RN Agree with AM assessment.
[2019-01-19] MEDS: rOPINIRole 0.25 MG (REQUIP) TAB PO PRN (14:17)
--- NOTE | 2019-01-19 14:45 | Physical Therapy Daily Note ---
PT Daily Note-Current Subjective Pt laying Supine in bed with Sp present upon arrival. Pt agrees to PT despite reporting fatigue and soreness. Pain Numeric Pain Scale: 5-Moderate Pain Location: Left Location Body Site: Arm Pain Description: Ache Mental Status Patient Orientation: Person, Place, Time, Situation Transfers Therapy Code Descriptions/Definitions Functional [place] Measure: 0=Not Assessed/NA 4=Minimal Assistance 1=Total Assistance 5=Supervision or Setup 2=Maximal Assistance 6=Modified [place] 3=Moderate Assistance 7=Complete [place] Therapy Quality Codes: 6 Independent with activity with or without an assistive device 5 Patient requires set up or clean up by helper. Patient completes activity by themselves 4 Supervision or touching assist (CGA). [place] provide cues , steadying a ssist 3 The helper provides less than half the effort to complete the activity 2 The helper provides more than half the effort to complete the activity 1 Dependent. The helper does all the effort to complete an activity 7 Patient refused to complete or attempt activity 9 The patient did not perform the activity before the current illness or injury 88 Not attempted due to Medical conditions or safety concerns Scootin Rollin Supine to/from Sit: 5 Sit to/from Stand: 5 Sit to Lying (QC): 5 Sit to Stand (QC): 5 Weight Bearing Right Lower Extremity: Right Weight Bearing/Tolerated Left Lower Extremity: Left Weight Bearing/Tolerated Exercises Supine Ex: Ankle pumps, Quad Set, Rolling, Glut sets, Heel Slides, Hip abd/add Supine Reps: 15 Treatments Pt completes Supine Ex in bed with RB as needed. Pt also ask to change hospital gown, DIRECTOR HRIS assisted as well as clean up on bed mook that DIRECTOR HRIS found. Pt resting at end of tx with all needs met, call light in hand. Assessment Pt is limited by fatigue from lack of sleep last night as well as soreness. PT Short Term Goals Short Term Goals Transfers (B,C,W/C) (FIM): 5 (met- SBA) PT Roof Painter Goals Roof Painter Goals PT [facility] Goals Time Frame: Feb 03, 2019 Transfers (B,C,W/C) (FIM): 6 Sit to Lying (QC): 6 Lying-Sitting on Side/Bed(QC): 6 Sit to Stand (QC): 6 Rollin Roll Left to Right (QC): 6 Chair/Miv-sf-Xzsmy Xfer(QC): 6 Car Transfer (QC): 6 Does the Patient Walk: Yes Gait (FIM): 6 Gait distance (FIM): 3=150 ft Distance: 250' Walk 10 feet (QC): 6 Walk 10ft-Uneven Surface(QC): 6 Walk 50ft with 2 Turns (QC): 6 Walk 150 ft (QC): 6 Gait Level of Assist: 6 Gait Assistive Device: FWW Stairs (FIM): 2 # of Steps: 4 1 Step (curb) (QC): 6 4 Steps (QC): 6 12 Steps (QC): 9 Stairs Level Of Assist: 6 Picking up an Object (QC): 6 PT Plan Problem List Problem List: Activity Tolerance, Functional Strength Treatment/Plan Treatment Plan: Continue Plan of Care Treatment Plan: Bed Mobility, Education, Functional Activity Jordy, Functional Strength, Group Therapy, Gait, Safety, Therapeutic Exercise, Transfers Treatment Duration: Feb 03, 2019 Frequency: At least 5 of 7 days/Wk (IRF) Estimated Hrs Per Day: 1.5 hours per day Patient and/or Family Agrees t: Yes Safety Risks/Education Patient Education: Transfer Techniques, Correct Positioning, Safety Issues Teaching Recipient: Patient, Significant Other Teaching Methods: Discussion Response to Teaching: Verbalize Understanding Time/GCodes Time In: 1300 Time Out: 1330 Total Billed Treatment Time: 30 Total Billed Treatment 1, FA (15m) & EX (15m) MELLISSA RANGEL PTA Jan 19, 2019 14:45
[2019-01-19 17:38] VITALS: BP 129/63
--- NOTE | 2019-01-19 18:36 | NUR ---
C/O urinary urgency and hesitancy today. Incontinent X1. Urine has strong, foul odor. also states that patient has seemed more confused today and therapy notes a decline in function. Dr. Groves notified. New orders for a CBC, CMP, UA- culture if indicated, and bladder scan now.
--- NOTE | 2019-01-19 18:38 | NUR ---
Bladder scan 133mls. Dr. Groves notified.
[2019-01-19 18:39] LABS: BASOPHILS % (AUTO) 0 % (0-10); EOSINOPHILS # (AUTO) 0.2 10^3/uL (0.0-0.3); EOSINOPHILS % (AUTO) 1 % (0-10); HEMATOCRIT 31 % (40-54); HEMOGLOBIN 9.8 G/DL (13.3-17.7); LYMPHOCYTES # (AUTO) 1.1 X 10^3 (1.0-4.0); LYMPHOCYTES % (AUTO) 9 % (12-44); MEAN CORPUSCULAR HEMOGLOBIN 34 PG (25-34); MEAN CORPUSCULAR HGB CONC 32 G/DL (32-36); MEAN CORPUSCULAR VOLUME 106 FL (80-99); MEAN PLATELET VOLUME 9.4 FL (7.4-10.4); MONOCYTES # (AUTO) 0.9 X 10^3 (0.0-1.0); MONOCYTES % (AUTO) 7 % (0-12); NEUTROPHILS # (AUTO) 9.9 X 10^3 (1.8-7.8); NEUTROPHILS % (AUTO) 82 % (42-75); PLATELET COUNT 293 10^3/uL (130-400); RED CELL DISTRIBUTION WIDTH 16.7 % (10.0-14.5); WHITE BLOOD COUNT 12.1 10^3/uL (4.3-11.0)
[2019-01-19 19:00] LABS: ALANINE AMINOTRANSFERASE 20 U/L (0-55); ALBUMIN 2.7 GM/DL (3.2-4.5); ALKALINE PHOSPHATASE 78 U/L (40-136); BILIRUBIN,TOTAL 0.4 MG/DL (0.1-1.0); BUN/CREATININE RATIO 12; CALCIUM 8.2 MG/DL (8.5-10.1); CARBON DIOXIDE 25 MMOL/L (21-32); CHLORIDE 106 MMOL/L (98-107); CREATININE SERUM 1.01 MG/DL (0.60-1.30); GFR ESTIMATED > 60; GLUCOSE 129 MG/DL (70-105); POTASSIUM 3.8 MMOL/L (3.6-5.0); SODIUM 139 MMOL/L (135-145); TOTAL PROTEIN 5.4 GM/DL (6.4-8.2)
[2019-01-19] MEDS: MONTELUKAST 10 MG (SINGULAIR) TAB PO SCH (20:09)
[2019-01-19 20:41] LABS: BILIRUBIN,URINE NEGATIVE (NEGATIVE); COLOR,URINE YELLOW; GLUCOSE, URINE (UA) NEGATIVE (NEGATIVE); KETONES,URINE NEGATIVE (NEGATIVE); LEUKOCYTE ESTERASE ,URINE 3+ (NEGATIVE); NITRITE,URINE POSITIVE (NEGATIVE); PH,URINE 6 (5-9); PROTEIN,URINE 2+ (NEGATIVE); UROBILINOGEN,URINE 1 MG/DL (NORMAL)
[2019-01-19 20:45] LABS: CLARITY,URINE SL CLOUDY
[2019-01-19 20:46] LABS: BACTERIA,URINE LARGE /HPF; RBC,URINE RARE /HPF; WBC,URINE 50-100 /HPF
[2019-01-19] MEDS: cefTRIAXone FOR IV USE 1,000 MG in WATER (STERILE) FOR INJECTION 10 ML IV SCH (22:59)
[2019-01-20 05:03] VITALS: BP 138/67
[2019-01-20] MEDS: FOLIC ACID 1 MG TAB PO SCH (06:13)
[2019-01-20] MEDS: CATHETER FLUSH 10 ML SYR IV SCH ×3 (06:13→20:19)
[2019-01-20] MEDS: MULTIVIT W/MINERALS TAB (THERAGRAN M) PO SCH (06:13)
[2019-01-20 06:23] LABS: BASOPHILS % (AUTO) 0 % (0-10); EOSINOPHILS # (AUTO) 0.1 10^3/uL (0.0-0.3); EOSINOPHILS % (AUTO) 1 % (0-10); HEMATOCRIT 30 % (40-54); HEMOGLOBIN 9.8 G/DL (13.3-17.7); LYMPHOCYTES # (AUTO) 0.9 X 10^3 (1.0-4.0); LYMPHOCYTES % (AUTO) 9 % (12-44); MEAN CORPUSCULAR HEMOGLOBIN 34 PG (25-34); MEAN CORPUSCULAR HGB CONC 32 G/DL (32-36); MEAN CORPUSCULAR VOLUME 106 FL (80-99); MEAN PLATELET VOLUME 9.5 FL (7.4-10.4); MONOCYTES # (AUTO) 0.8 X 10^3 (0.0-1.0); MONOCYTES % (AUTO) 8 % (0-12); NEUTROPHILS # (AUTO) 8.3 X 10^3 (1.8-7.8); NEUTROPHILS % (AUTO) 82 % (42-75); PLATELET COUNT 269 10^3/uL (130-400); RED CELL DISTRIBUTION WIDTH 16.5 % (10.0-14.5); WHITE BLOOD COUNT 10.1 10^3/uL (4.3-11.0)
[2019-01-20 06:41] LABS: ALANINE AMINOTRANSFERASE 17 U/L (0-55); ALBUMIN 2.6 GM/DL (3.2-4.5); ALKALINE PHOSPHATASE 89 U/L (40-136); BILIRUBIN,TOTAL 0.3 MG/DL (0.1-1.0); BUN/CREATININE RATIO 13; CALCIUM 8.1 MG/DL (8.5-10.1); CARBON DIOXIDE 24 MMOL/L (21-32); CHLORIDE 106 MMOL/L (98-107); CREATININE SERUM 0.95 MG/DL (0.60-1.30); GFR ESTIMATED > 60; GLUCOSE 129 MG/DL (70-105); POTASSIUM 3.9 MMOL/L (3.6-5.0); SODIUM 138 MMOL/L (135-145); TOTAL PROTEIN 5.3 GM/DL (6.4-8.2)
[2019-01-20] MEDS: PANTOPRAZOLE 20 MG TABLET (PROTONIX) PO SCH (08:23)
[2019-01-20] MEDS: FUROSEMIDE 40 MG (LASIX) TAB PO SCH (08:23)
[2019-01-20] MEDS: LOSARTAN 100 MG (COZAAR) TABLET PO SCH (08:23)
[2019-01-20] MEDS: amLODIPine 5 MG (NORVASC) TAB PO SCH (08:23)
[2019-01-20] MEDS: ASPIRIN 81 MG CHEW (CHILDREN'S ASA) PO SCH (08:23)
[2019-01-20] MEDS: KCL 10 MEQ TAB (MICRO K) PO SCH (08:23)
[2019-01-20] MEDS: APIXABAN 2.5 MG (ELIQUIS) TABLET PO SCH ×2 (08:24→20:18)
[2019-01-20] MEDS: LORATADINE (CLARITIN) 10 MG TAB PO SCH (08:24)
[2019-01-20] MEDS: meTOprolol SUCCINATE 100 MG (TOPROL XL) TAB PO SCH ×2 (08:25→20:18)
--- NOTE | 2019-01-20 11:03 | Physical Therapy Daily Note ---
PT Daily Note-Current Subjective Pt with no new c/o's, agreeable to PT session Pain Numeric Pain Scale: 0-No Pain Appearance Upon arrival, pt sitting up in chair just finished breakfast. At end of session, pt requesting and assisted to bed, bed alarm activated, call light, phone and bedside table within reach Mental Status Patient Orientation: Person, Place, Time, Eyes Open, Situation Transfers Therapy Code Descriptions/Definitions Functional [place] Measure: 0=Not Assessed/NA 4=Minimal Assistance 1=Total Assistance 5=Supervision or Setup 2=Maximal Assistance 6=Modified [place] 3=Moderate Assistance 7=Complete [place] Therapy Quality Codes: 6 Independent with activity with or without an assistive device 5 Patient requires set up or clean up by helper. Patient completes activity by themselves 4 Supervision or touching assist (CGA). [place] provide cues , steadying assist 3 The helper provides less than half the effort to complete the activity 2 The helper provides more than half the effort to complete the activity 1 Dependent. The helper does all the effort to complete an activity 7 Patient refused to complete or attempt activity 9 The patient did not perform the activity before the current illness or in jury 88 Not attempted due to Medical conditions or safety concerns Transfers (B, C, W/C) (FIM): 5 Scootin Rollin Supine to/from Sit: 5 Sit to/from Stand: 5 pt following skilled instruction for safety and hand placement during sit to and from stand transfers. Pt demonstrating ability to perform sit to supine with some effort but without physical assist Weight Bearing Right Lower Extremity: Right Weight Bearing/Tolerated Left Lower Extremity: Left Weight Bearing/Tolerated Gait Training Does the Patient Walk?: Yes Gait (FIM): 5 Distance (FIM): 3=150 ft Distance: 390 Gait Level of Assist: 5 Gait Persons Needed: 1 Gait Assistive Device: FWW Pt following skilled instruction to keep feet within walker. Pt occasionally kicking leg of walker with RLE. Fair step length, decreased step height, slow pace, fatigue, several standing rest breaks required Treatments transfers, safety, balance, activity tolerance, functional mobility, gait, bed mobility Assessment Current Status: Good Progress PT Short Term Goals Short Term Goals Transfers (B,C,W/C) (FIM): 5 (met- SBA) PT Alf Goals Alf Goals PT Compliance Consultant Goals Time Frame: Feb 03, 2019 Transfers (B,C,W/C) (FIM): 6 Sit to Lying (QC): 6 Lying-Sitting on Side/Bed(QC): 6 Sit to Stand (QC): 6 Rollin Roll Left to Right (QC): 6 Chair/Lno-bu-Jcvig Xfer(QC): 6 Car Transfer (QC): 6 Does the Patient Walk: Yes Gait (FIM): 6 Gait distance (FIM): 3=150 ft Distance: 250' Walk 10 feet (QC): 6 Walk 10ft-Uneven Surface(QC): 6 Walk 50ft with 2 Turns (QC): 6 Walk 150 ft (QC): 6 Gait Level of Assist: 6 Gait Assistive Device: FWW Stairs (FIM): 2 # of Steps: 4 1 Step (curb) (QC): 6 4 Steps (QC): 6 12 Steps (QC): 9 Stairs Level Of Assist: 6 Picking up an Object (QC): 6 PT Plan Treatment/Plan Treatment Plan: Continue Plan of Care Treatment Plan: Bed Mobility, Education, Functional Activity Jordy, Functional Strength, Group Therapy, Gait, Safety, Therapeutic Exercise, Transfers Treatment Duration: Feb 03, 2019 Frequency: At least 5 of 7 days/Wk (IRF) Estimated Hrs Per Day: 1.5 hours per day Patient and/or Family Agrees t: Yes Safety Risks/Education Patient Education: Gait Training, Transfer Techniques, Correct Positioning, Safety Issues Teaching Recipient: Patient Teaching Methods: Demonstration, Discussion Response to Teaching: Verbalize Understanding, Return Demonstration Time/GCodes Time In: 801 Time Out: 824 Total Billed Treatment Time: 23 Total Billed Treatment 1 visit, GT x2 units ALYSON ROSAS PACS ADMINISTRATOR Jan 20, 2019 11:03
--- NOTE | 2019-01-20 11:39 | PM&R Progress Note ---
Subjective HPI/CC On Admission Date Seen by Provider: Jan 20, 2019 Time Seen by Provider: 11:15 CC: Debility from alcoholism and altered mental status HPI: This is a 73yoWM who was admitted nearly a week ago of Dr. Macias's who presented with altered mental status found to have significant alcohol withdrawal of which his was unaware that he was drinking alcohol but he was provided supportive care and subsequently has become quite debilitated overall. Smoking cessation has been counseled along with alcohol cessation. He is a retired [employer]in for 35 years in [place]. He does report that he is needing to cut down on his alcohol. At this current time pt denies any significant pain, meds were reviewed, and will be continued on inpatient rehab. He has become incontinent and is need of further recovery before DC is planned. HPI per ELMER Martinez Sebastien Toledo is a 73-year-old male with past medical history of hypertension, coronary artery disease, GERD, and ETOH abuse who was recently admitted for AMS; his hospital stay was complicated by alcohol withdrawal. 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 CVA was suspected but ruled out via CT and clinical picture which was more consistent with ETOH withdrawal rather than CT. No MRI was done. Alcohol abuse was managed via activating CIWA protocol, giving thiamine and Folic acid. Pt was recently diagnosed with Paroxysmal Afib and was followed by Cardiology who ordered an Echo and started him on Eliquis. Pt's last stay also involved Macrocytic anemia which required transfusions and continued tx with folic acid. After pt was stabilized he was transitioned to inpatient rehabilitation on 01/08/19. I was consult for evaluation of restless leg symptoms. Patient reports last couple of evenings beginning shortly after getting into bed he will develop uncomfortable sensation in his legs that is only alleviated by moving them. He's had this in the past and I have not prescribed medication for him but his had either Mirapex her ropinirole he has taken her medication with release of his symptoms. He does have anemia with a low folate level that is macrocytic that with a history of esophagitis poor nutritional status from alcoholism iron deficiency is highly likely as well. He denies melena or bright red blood per rectum and denies abdominal pain. He is back to baseline mental status after b eing admitted with altered mental status and delirium. This is likely due to alcohol withdrawal. Subjective/Events-last exam Reviewed labs from yesterday and noted to numerous to count white blood cells so placed him on Rocephin empirically Or culture pending Labs appear to be improved needs him in a shelter since she cannot take care of him at home Was incontinent on the floor this morning Overall very poor prognosis long-term Conferred with RN. Reviewed therapy notes. Checked meds and labs. Review of Systems General: Fatigue Objective Exam Vital Signs Vital Signs Date Time Temp Pulse Resp B/P (MAP) Pulse Ox O2 Delivery O2 Flow Rate FiO2 01/20/19 09:19 Room Air 01/20/19 05:03 37.0 77 20 138/67 (90) 92 Capillary Refill : General Appearance: No Apparent Distress, WD/WN, Chronically ill HEENT: PERRL/EOMI, Normal ENT Inspection, Pharynx Normal, Moist Mucous Membranes Neck: Full Range of Motion, Normal Inspection, Non Tender, Supple Respiratory: Chest Non Tender, Lungs Clear, Normal Breath Sounds, No Accessory Muscle Use, No Respiratory Distress Cardiovascular: Regular Rate, Rhythm, No Edema, No Gallop, No JVD, No Murmur Gastrointestinal: Normal Bowel Sounds, No Organomegaly, No Pulsatile Mass, Non Tender, Soft Back: Normal Inspection, No CVA Tenderness, No Vertebral Tenderness Extremity: Normal Capillary Refill, Normal Inspection, Normal Range of Motion, Non Tender, No Calf Tenderness, No Pedal Edema Neurologic/Psychiatric: Alert, Oriented x3, No Motor/Sensory Deficits, Normal Mood/Affect, Disoriented Skin: Normal Color, Warm/Dry Lymphatic: No Adenopathy Results/Procedures Lab Laboratory Tests 01/19/19 18:33 01/20/19 06:15 Patient resulted labs reviewed. FIM Transfers Therapy Code Descriptions/Definitions Functional [place] Measure: 0=Not Assessed/NA 4=Minimal Assistance 1=Total Assistance 5=Supervision or Setup 2=Maximal Assistance 6=Modified [place] 3=Moderate Assistance 7=Complete [place] Therapy Quality Codes: 6 Independent with activity with or without an assistive device 5 Patient requires set up or clean up by helper. Patient completes activity by themselves 4 Supervision or touching assist (CGA). [place] provide cues , steadying assist 3 The helper provides less than half the effort to complete the activity 2 The helper provides more than half the effort to complete the activity 1 Dependent. The helper does all the effort to complete an activity 7 Patient refused to complete or attempt activity 9 The patient did not perform the activity before the current illness or injury 88 Not attempted due to Medical conditions or safety concerns Transfers (B, C, W/C) (FIM): 5 Scootin Rollin Roll Left to Right (QC): 5 Supine to/from Sit: 5 Sit to/from Stand: 5 Sit to Lying (QC): 5 Sit to Stand (QC): 5 Chair/Evc-pi-Oawwf Xfer(QC): 4 Bed to/from Chair: 5 Car Transfer (QC): 5 Gait Training Does the Patient Walk?: Yes Gait (FIM): 5 Distance (FIM): 3=150 ft Distance: 390 Walk 10 feet (QC): 5 Walk 50 ft with 2 Turns(QC): 5 Walk 150 ft (QC): 5 Walking 10ft/uneven surface-QC: 4 Gait Level of Assist: 5 Gait Persons Needed: 1 Gait Assistive Device: FWW Wheelchair Training Does the Pt Use a Wheelchair?: No Stair Training Stairs (FIM): 1 #of Steps: 1 1 Step (curb) (QC): 4 4 Steps (QC): 9 12 Steps (QC): 9 Level of Assist: 4 Mental Status/Objective Comprehension: 7 Expression: 7 Social Interaction: 7 Problem Solvin Memory: 7 ADL-Treatment Feedin (Built up handles used.) Eating (QC): 6 Groomin (SUP at sink, use of FWW for support.) Oral Hygiene (QC): 5 (SUP at sink) Bathin (SBA during stance. Pt requests to wash back/ bottom/ feet with long handled sponge while in stance as he does at home. Pt stood (SBA), good use of grab bars and fair coordination. Pt demonstrates SOB during tasks, cues for pursed lip breathing during activity. ) Shower/Bathe Self (QC): 4 (SBA and cues ) Upper Extremity Dressin (Pt dressed with robe with min A dur to difficulty placeing R arm through sleeve.) Upper Body Dressing (QC): 3 Lower Extremity Dressin (SBA during stance to pull up, pt completes threading activity seated in chair.) Lower Body Dressing (QC): 5 (SBA in stance.) On/Off Footwear (QC): 6 (increased time.) Toiletin (SBA for safety during stance for wiping after BM) Toileting Hygiene (QC): 5 (s/u) Toilet/Commode Transfer: 4 (SBA, use of FWW and grab bars. Good motor control on this date.) Toilet Transfer (QC): 5 (SBA) Tub: 5 (SBA) Shower: 5 (SBA, use of grab bars and FWW.) Assessment/Plan Assessment and Plan Assess & Plan/Chief Complaint Plan: IRF protocol Supportive care Delirium monitoring ETOH cessation Hold laxatives until needed RLS per PCP consultation Nebs to maintain when necessary Ativan as needed Monitor urinary system Eliquis and aspirin restarted per cardiology Monitor falls UTI acute placed on Rocephin empirically Needs shelter placement (1) Debility Status: Acute (2) Hypokalemia Status: Acute (3) Folate deficiency Status: Acute (4) Pancytopenia Status: Acute (5) Interstitial lung disease Status: Chronic (6) Weight loss, unintentional Status: Chronic (7) CAD (coronary artery disease) Status: Chronic Qualifiers: Coronary Disease-Associated Artery/Lesion type: [place] artery [place] vs. transplanted heart: [place] heart Associated angina: without angina Qualified Codes: I25.10 - Atherosclerotic heart disease of [place] coronary artery without angina pectoris (8) HTN (hypertension) Status: Chronic Qualifiers: Hypertension type: essential hypertension Qualified Codes: I10 - Essential (primary) hypertension (9) Nausea & vomiting Status: Acute Qualifiers: Vomiting type: unspecified (10) Atrial fibrillation with rapid ventricular response Status: Acute (11) Hypomagnesemia Status: Acute (12) Vertebral artery occlusion Status: Chronic Qualifiers: Laterality: unspecified laterality Qualified Codes: I65.09 - Occlusion and stenosis of unspecified vertebral artery (13) Aphasia Status: Acute (14) Altered mental status Status: Resolved Resolution Date/Time: 01/07/19 @ 11:56 (15) Alcohol dependence Status: Resolved Resolution Date/Time: 01/07/19 @ 11:56 Qualifiers: 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
--- NOTE | 2019-01-20 13:43 | Cardiology Progress Note ---
Cardiology SOAP Progress Note Subjective: no cardiac complaints Objective: I&O/Vital Signs 01/21/19 01/21/19 01/21/19 01/21/19 05:45 08:10 08:59 09:00 Temp 36.4 Pulse 81 86 Resp 20 18 B/P (MAP) 144/76 (98) 138/72 (94) Pulse Ox 92 95 95 O2 Delivery Room Air Room Air Room Air Room Air 01/21/19 00:00 Intake Total 732 ml Output Total 300 ml Balance 432 ml Weight (Pounds): 191 Weight (Ounces): 0.0 Weight (Calculated Kilograms): 86.964133 Constitutional: AAO x 3, well-developed, well-nourished Respiratory: No accessory muscle use, No respiratory distress; chest expansion is symmetric, chest is bilaterally symmetric, rhonchi (scattered), other (prolonged expiratory phase) Cardiovascular: regular rate-rhythm; No JVD; S1 and S2, systolic murmur Gastrointestional: No tender; soft, audible bowel sounds Extremities: other (mild bilat LE swelling) Neurologic/Psychiatric: no motor/sensory deficits, alert, grossly intact Skin: No rash on exposed areas, No ulcerations on exposed areas; other (multiple bruises to arms/legs bilat with abrasions; drsg to left elbow D&I) Results/Procedures: Labs A/P: Assessment/Dx: Bruising and oozing of bleed from iv sites and from minor injuries, significantly improved. AMS of undetermined etiology, probably related to alcohol withdrawal, managed by the Hospitalist Svce - improved PAF Anemia of undetermined etiology - being managed the Hospitalist/Medical Svce Hypertension - uncontrolled H/o mild to mod pancytopenia being during admission of Dec 23-Dec 4 OAC with Eliquis Upper and lower endoscopy of 12-27-[address] 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 This is of unknown age. There is mild to moderate narrowing of the proximal basilar artery. Per CTA of 01-02-19 Recent weight loss of approx 30 lbs of undetermined etiology CAD - Cardiac cath of 09/19/18 showed patent RCA stents that were place in Apr 2016: Alpine Xience 3.5 x 15 mm prox and Alpine Xience 3.0 x 15 mm distally, postdilated with a 3.5 mm balloon, The rest of the vessels have diffuse, mod disease. LVEF 50-55%. Normal LVEDP Echocardiogram of December 24, [address] Jimenez concentric hypertrophy. LVEF 45-50%. Grade 1 diastolic dysfunction. AoV thickening consistent with sclerosis with mild regurg. PASP 15-20mmHg. Severe ostial left renal artery stenosis with subsequent percutaneous transluminal angioplasty and residual minimal stenosis, no dissection or distal embolization by Dr. Keen at [facility] in [place], [place] in the early CT of the chest from August 2016 showed borderline adenopathy in the axillary regions and in the subcarinal space. 7 mm pulmonary nodule in the RUL. This is followed by Dr Toya MENDOZA, treated with CPAP, followed by Dr Pittman Mild carotid arterial disease on carotid u/s of 09/21/18 PAD - PCI of the right anterior tibial, posterior tibial and peroneal with Medtronic Nitinol 4mm x 20mm stent in the right posterior tibial December 08, [address] Langston in [place], [place]. Peripheral angio of 09/19/18: Infrarenal AAA, mod in size, just above aorto iliac bifurcation; mod diff disease of the sup fems and distal leg circulation on both sides. Patent R post tib stent HLP - statin therapy followed by his PCP - currently being withheld d/t recent episode of pancreatitis Emphysema GERD H/o pancreatitis in the past - managed by PCP EKG of 11-03-15 showed LVH with repolarization abnormality and LAFB; not significantly changed on 09/13/18 CKD stage 2-3 H/o heavy ETOH use Tobaccoism - 2 PPD Plan: Plan: * Continue Low-dose apixaban * Monitor labs Thank you for your consultation. Please call me if you have any questions. Dennis Husain MD, FACP, FACC, FSCAI, FHRS, CCDS Interventional Cardiology Cardiac Electrophysiology Vascular Medicine and Endovascular Interventions Brandon HUSIAN MD Jan 20, 2019 13:42
[2019-01-20 17:26] VITALS: BP 158/89
[2019-01-20] MEDS: MONTELUKAST 10 MG (SINGULAIR) TAB PO SCH (20:18)
[2019-01-20] MEDS: LORazepam 0.5 MG (ATIVAN) TABLET PO PRN (20:19)
[2019-01-20] MEDS: cefTRIAXone FOR IV USE 1,000 MG in WATER (STERILE) FOR INJECTION 10 ML IV SCH (22:08)
[2019-01-21 05:45] VITALS: BP 144/76
[2019-01-21] MEDS: CATHETER FLUSH 10 ML SYR IV SCH ×3 (05:59→21:26)
[2019-01-21] MEDS: FOLIC ACID 1 MG TAB PO SCH (05:59)
[2019-01-21] MEDS: MULTIVIT W/MINERALS TAB (THERAGRAN M) PO SCH (05:59)
[2019-01-21 08:10] VITALS: BP 138/72
[2019-01-21] MEDS: LOSARTAN 100 MG (COZAAR) TABLET PO SCH (08:11)
[2019-01-21] MEDS: LORATADINE (CLARITIN) 10 MG TAB PO SCH (08:11)
[2019-01-21] MEDS: amLODIPine 5 MG (NORVASC) TAB PO SCH (08:11)
[2019-01-21] MEDS: PANTOPRAZOLE 20 MG TABLET (PROTONIX) PO SCH (08:11)
[2019-01-21] MEDS: meTOprolol SUCCINATE 100 MG (TOPROL XL) TAB PO SCH ×2 (08:12→21:26)
[2019-01-21] MEDS: ASPIRIN 81 MG CHEW (CHILDREN'S ASA) PO SCH (08:12)
[2019-01-21] MEDS: APIXABAN 2.5 MG (ELIQUIS) TABLET PO SCH ×2 (08:12→21:26)
--- NOTE | 2019-01-21 09:44 | PM&R Progress Note ---
Subjective HPI/CC On Admission Date Seen by Provider: Jan 21, 2019 Time Seen by Provider: 08:30 CC: Debility from alcoholism and altered mental status HPI: This is a 73yoWM who was admitted nearly a week ago of Dr. Macias's who presented with altered mental status found to have significant alcohol withdrawa l of which his was unaware that he was drinking alcohol but he was provided supportive care and subsequently has become quite debilitated overall. Smoking cessation has been counseled along with alcohol cessation. He is a retired [employer] for 35 years in [place]. He does report that he is needing to cut down on his alcohol. At this current time pt denies any significant pain, meds were reviewed, and will be continued on inpatient rehab. He has become incontinent and is need of further recovery before DC is planned. HPI per ELMER Martinez Sebastien Toledo is a 73-year-old male with past medical history of hypertension, co ronary artery disease, GERD, and ETOH abuse who was recently admitted for AMS; his hospital stay was complicated by alcohol withdrawal. 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 CVA was suspected but ruled out via CT and clinical picture which was more consistent with ETOH withdrawal rather than CT. No MRI was done. Alcohol abuse was managed via activating CIWA protocol, giving thiamine and Folic acid. Pt was recently diagnosed with Paroxysmal Afib and was followed by Cardiology who ordered an Echo and started him on Eliquis. Pt's last stay also involved Macrocytic anemia which required transfusions and continued tx with folic acid. After pt was stabilized he was transitioned to inpatient rehabilitation on 01/08/19. I was consult for evaluation of restless leg symptoms. Patient reports last couple of evenings beginning shortly after getting into bed he will develop uncomfortable sensation in his legs that is only alleviated by moving them. He's had this in the past and I have not prescribed medication for him but his had either Mirapex her ropinirole he has taken her medication with release of his symptoms. He does have anemia with a low folate level that is macrocytic that with a history of esophagitis poor nutritional status from alcoholism iron deficiency is highly likely as well. He denies melena or bright red blood per rectum and denies abdominal pain. He is back to baseline mental status after being admitted with altered mental status and delirium. This is likely due to alcohol withdrawal. Subjective/Events-last exam UCx pending No incontinence last night Labs appear to be improved needs him in a penitentiary since she cannot take care of him at home Overall very poor prognosis long-term Conferred with RN. Reviewed therapy notes. Checked meds and labs. Review of Systems General: Fatigue Objective Exam Vital Signs Vital Signs Date Time Temp Pulse Resp B/P (MAP) Pulse Ox O2 Delivery O2 Flow Rate FiO2 01/21/19 09:00 Room Air 01/21/19 08:59 95 01/21/19 08:10 86 18 138/72 (94) 01/21/19 05:45 36.4 Capillary Refill : General Appearance: No Apparent Distress, WD/WN, Chronically ill HEENT: PERRL/EOMI, Normal ENT Inspection, Pharynx Normal, Moist Mucous Membranes Neck: Full Range of Motion, Normal Inspection, Non Tender, Supple Respiratory: Chest Non Tender, Lungs Clear, Normal Breath Sounds, No Accessory Muscle Use, No Respiratory Distress Cardiovascular: Regular Rate, Rhythm, No Edema, No Gallop, No JVD, No Murmur Gastrointestinal: Normal Bowel Sounds, No Organomegaly, No Pulsatile Mass, Non Tender, Soft Back: Normal Inspection, No CVA Tenderness, No Vertebral Tenderness Extremity: Normal Capillary Refill, Normal Inspection, Normal Range of Motion, Non Tender, No Calf Tenderness, No Pedal Edema Neurologic/Psychiatric: Alert, Oriented x3, No Motor/Sensory Deficits, Normal Mood/Affect, Disoriented Skin: Normal Color, Warm/Dry Lymphatic: No Adenopathy Results/Procedures Lab Patient resulted labs reviewed. FIM Transfers Therapy Code Descriptions/Definitions Functional [place] Measure: 0=Not Assessed/NA 4=Minimal Assistance 1=Total Assistance 5=Supervision or Setup 2=Maximal Assistance 6=Modified [place] 3=Moderate Assistance 7=Complete [place] Therapy Quality Codes: 6 Independent with activity with or without an assistive device 5 Patient requires set up or clean up by helper. Patient completes activity by themselves 4 Supervision or touching assist (CGA). [place] provide cues , steadying assist 3 The helper provides less than half the effort to complete the activity 2 The helper provides more than half the effort to complete the activity 1 Dependent. The helper does all the effort to complete an activity 7 Patient refused to complete or attempt activity 9 The patient did not perform the activity before the current illness or injury 88 Not attempted due to Medical conditions or safety concerns Transfers (B, C, W/C) (FIM): 5 Scootin Rollin Roll Left to Right (QC): 5 Supine to/from Sit: 5 Sit to/from Stand: 5 Sit to Lying (QC): 5 Sit to Stand (QC): 5 Chair/Wdo-ei-Zbuns Xfer(QC): 4 Bed to/from Chair: 5 Car Transfer (QC): 5 Gait Training Does the Patient Walk?: Yes Gait (FIM): 5 Distance (FIM): 3=150 ft Distance: 390 Walk 10 feet (QC): 5 Walk 50 ft with 2 Turns(QC): 5 Walk 150 ft (QC): 5 Walking 10ft/uneven surface-QC: 4 Gait Level of Assist: 5 Gait Persons Needed: 1 Gait Assistive Device: FWW Wheelchair Training Does the Pt Use a Wheelchair?: No Stair Training Stairs (FIM): 1 #of Steps: 1 1 Step (curb) (QC): 4 4 Steps (QC): 9 12 Steps (QC): 9 Level of Assist: 4 Mental Status/Objective Comprehension: 7 Expression: 7 Social Interaction: 7 Problem Solvin Memory: 7 ADL-Treatment Feedin (Built up handles used.) Eating (QC): 6 Groomin (SUP at sink, use of FWW for support.) Oral Hygiene (QC): 5 (SUP at sink) Bathin (SBA during stance. Pt requests to wash back/ bottom/ feet with long handled sponge while in stance as he does at home. Pt stood (SBA), good use of grab bars and fair coordination. Pt demonstrates SOB during tasks, cues for pursed lip breathing during activity. ) Shower/Bathe Self (QC): 4 (SBA and cues ) Upper Extremity Dressin (Pt dressed with robe with min A dur to difficulty placeing R arm through sleeve.) Upper Body Dressing (QC): 3 Lower Extremity Dressin (SBA during stance to pull up, pt completes threading activity seated in chair.) Lower Body Dressing (QC): 5 (SBA in stance.) On/Off Footwear (QC): 6 (increased time.) Toiletin (SBA for safety during stance for wiping after BM) Toileting Hygiene (QC): 5 (s/u) Toilet/Commode Transfer: 4 (SBA, use of FWW and grab bars. Good motor control on this date.) Toilet Transfer (QC): 5 (SBA) Tub: 5 (SBA) Shower: 5 (SBA, use of grab bars and FWW.) Assessment/Plan Assessment and Plan Assess & Plan/Chief Complaint Plan: IRF protocol Supportive care Delirium monitoring ETOH cessation Hold laxatives until needed RLS per PCP consultation Nebs to maintain when necessary Ativan as needed Monitor urinary system Eliquis and aspirin restarted per cardiology Monitor falls UTI acute placed on Rocephin empirically Needs penitentiary placement (1) Debility Status: Acute (2) Hypokalemia Status: Acute (3) Folate deficiency Status: Acute (4) Pancytopenia Status: Acute (5) Interstitial lung disease Status: Chronic (6) Weight loss, unintentional Status: Chronic (7) CAD (coronary artery disease) Status: Chronic Qualifiers: Coronary Disease-Associated Artery/Lesion type: [place] artery [place] vs. transplanted heart: [place] heart Associated angina: without angina Qualified Codes: I25.10 - Atherosclerotic heart disease of [place] coronary artery without angina pectoris (8) HTN (hypertension) Status: Chronic Qualifiers: Hypertension type: essential hypertension Qualified Codes: I10 - Essential (primary) hypertension (9) Nausea & vomiting Status: Acute Qualifiers: Vomiting type: unspecified (10) Atrial fibrillation with rapid ventricular response Status: Acute (11) Hypomagnesemia Status: Acute (12) Vertebral artery occlusion Status: Chronic Qualifiers: Laterality: unspecified laterality Qualified Codes: I65.09 - Occlusion and stenosis of unspecified vertebral artery (13) Aphasia Status: Acute (14) Altered mental status Status: Resolved Resolution Date/Time: 01/07/19 @ 11:56 (15) Alcohol dependence Status: Resolved Resolution Date/Time: 01/07/19 @ 11:56 Qualifiers: Substance use status: alcohol-induced persisting amnestic disorder [place] lified Codes: 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
[2019-01-21] MEDS: LORazepam 0.5 MG (ATIVAN) TABLET PO PRN ×2 (11:08→23:54)
--- NOTE | 2019-01-21 12:44 | NUR ---
Dr. Montoya notified of fall on night and new skin teas to left/right arms. Orders to continue current wound care orders. Will be in to assess wounds tomorrow, 01/22/19.
--- NOTE | 2019-01-21 13:29 | Cardiology Progress Note ---
Cardiology SOAP Progress Note Subjective: No cardiac complaints. Objective: I&O/Vital Signs 01/21/19 01/21/19 01/21/19 01/21/19 05:45 08:10 08:59 09:00 Temp 36.4 Pulse 81 86 Resp 20 18 B/P (MAP) 144/76 (98) 138/72 (94) Pulse Ox 92 95 95 O2 Delivery Room Air Room Air Room Air Room Air 01/21/19 00:00 Intake Total 732 ml Output Total 300 ml Balance 432 ml Weight (Pounds): 191 Weight (Ounces): 0.0 Weight (Calculated Kilograms): 86.479919 Constitutional: AAO x 3, well-developed, well-nourished Respiratory: No accessory muscle use, No respiratory distress; chest expansion is symmetric, chest is bilaterally symmetric, rhonchi (scattered), other (prolonged expiratory phase) Cardiovascular: regular rate-rhythm; No JVD; S1 and S2, systolic murmur Gastrointestional: No tender; soft, audible bowel sounds Extremities: other (mild bilat LE swelling) Neurologic/Psychiatric: no motor/sensory deficits, alert, grossly intact Skin: No rash on exposed areas, No ulcerations on exposed areas; other (multiple bruises to arms/legs bilat with abrasions; drsg to left elbow D&I) A/P: Assessment/Dx: Bruising and oozing of bleed from iv sites and from minor injuries, significantly improved. AMS of undetermined etiology, probably related to alcohol withdrawal, managed by the Hospitalist Svce - improved PAF Anemia of undetermined etiology - being managed the Hospitalist/Medical Svce Hypertension - uncontrolled H/o mild to mod pancytopenia being during admission of Dec 23-Dec 4 OAC with Eliquis Upper and lower endoscopy of 12-27-[address] 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 This is of unknown age. There is mild to moderate narrowing of the proximal basilar artery. Per CTA of 01-02-19 Recent weight loss of approx 30 lbs of undetermined etiology CAD - Cardiac cath of 09/19/18 showed patent RCA stents that were place in Apr 2016: Alpine Xience 3.5 x 15 mm prox and Alpine Xience 3.0 x 15 mm distally, postdilated with a 3.5 mm balloon, The rest of the vessels have diffuse, mod disease. LVEF 50-55%. Normal LVEDP Echocardiogram of December 24, [address] Jimenez concentric hypertrophy. LVEF 45-50%. Grade 1 diastolic dysfunction. AoV thickening consistent with sclerosis with mild regurg. PASP 15-20mmHg. Severe ostial left renal artery stenosis with subsequent percutaneous transluminal angioplasty and residual minimal stenosis, no dissection or distal embolization by Dr. Keen at [facility] in [place], [place] in the early CT of the chest from August 2016 showed borderline adenopathy in the axillary regions and in the subcarinal space. 7 mm pulmonary nodule in the RUL. This is followed by Dr Toya MENDOZA, treated with CPAP, followed by Dr Pittman Mild carotid arterial disease on carotid u/s of 09/21/18 PAD - PCI of the right anterior tibial, posterior tibial and peroneal with Medtronic Nitinol 4mm x 20mm stent in the right posterior tibial December 08, [address] Langston in [place], [place]. Peripheral angio of 09/19/18: Infrarenal AAA, mod in size, just above aorto iliac bifurcation; mod diff disease of the sup fems and distal leg circulation on both sides. Patent R post tib stent HLP - statin therapy followed by his PCP - currently being withheld d/t recent episode of pancreatitis Emphysema GERD H/o pancreatitis in the past - managed by PCP EKG of 11-03-15 showed LVH with repolarization abnormality and LAFB; not significantly changed on 09/13/18 CKD stage 2-3 H/o heavy ETOH use Tobaccoism - 2 PPD Plan: Plan: * Continue Low-dose apixaban * Monitor labs * Blood pressure is better controlled. Thank you for your consultation. Please call me if you have any questions. Dennis Husain MD, FACP, FACC, FSCAI, FHRS, CCDS Interventional Cardiology Cardiac Electrophysiology Vascular Medicine and Endovascular Interventions Brandon HUSAIN MD Jan 21, 2019 13:29
[2019-01-21 17:19] VITALS: BP 145/74
[2019-01-21] MEDS: cefTRIAXone FOR IV USE 1,000 MG in WATER (STERILE) FOR INJECTION 10 ML IV SCH (21:26)
[2019-01-21] MEDS: MONTELUKAST 10 MG (SINGULAIR) TAB PO SCH (21:26)
[2019-01-22 05:05] VITALS: BP 144/74
[2019-01-22] MEDS: FOLIC ACID 1 MG TAB PO SCH (05:46)
[2019-01-22] MEDS: MULTIVIT W/MINERALS TAB (THERAGRAN M) PO SCH (05:46)
[2019-01-22] MEDS: CATHETER FLUSH 10 ML SYR IV SCH ×3 (05:46→22:09)
[2019-01-22 06:06] LABS: BASOPHILS % (AUTO) 0 % (0-10); EOSINOPHILS # (AUTO) 0.2 10^3/uL (0.0-0.3); EOSINOPHILS % (AUTO) 2 % (0-10); HEMATOCRIT 33 % (40-54); HEMOGLOBIN 10.3 G/DL (13.3-17.7); LYMPHOCYTES # (AUTO) 1.7 X 10^3 (1.0-4.0); LYMPHOCYTES % (AUTO) 15 % (12-44); MEAN CORPUSCULAR HEMOGLOBIN 34 PG (25-34); MEAN CORPUSCULAR HGB CONC 32 G/DL (32-36); MEAN CORPUSCULAR VOLUME 107 FL (80-99); MEAN PLATELET VOLUME 9.8 FL (7.4-10.4); MONOCYTES # (AUTO) 0.9 X 10^3 (0.0-1.0); MONOCYTES % (AUTO) 9 % (0-12); NEUTROPHILS # (AUTO) 7.9 X 10^3 (1.8-7.8); NEUTROPHILS % (AUTO) 74 % (42-75); PLATELET COUNT 258 10^3/uL (130-400); RED CELL DISTRIBUTION WIDTH 16.3 % (10.0-14.5); WHITE BLOOD COUNT 10.7 10^3/uL (4.3-11.0)
[2019-01-22 06:30] LABS: ALANINE AMINOTRANSFERASE 16 U/L (0-55); ALBUMIN 2.7 GM/DL (3.2-4.5); ALKALINE PHOSPHATASE 83 U/L (40-136); BILIRUBIN,TOTAL 0.2 MG/DL (0.1-1.0); BUN/CREATININE RATIO 11; CALCIUM 8.2 MG/DL (8.5-10.1); CARBON DIOXIDE 27 MMOL/L (21-32); CHLORIDE 105 MMOL/L (98-107); CREATININE SERUM 0.94 MG/DL (0.60-1.30); GFR ESTIMATED > 60; GLUCOSE 73 MG/DL (70-105); POTASSIUM 4.1 MMOL/L (3.6-5.0); SODIUM 139 MMOL/L (135-145); TOTAL PROTEIN 6.1 GM/DL (6.4-8.2)
--- NOTE | 2019-01-22 08:34 | Progress Note - Cardiology ---
Cardiology SOAP Progress Note Objective: I&O/Vital Signs 01/22/19 01/22/19 05:05 08:00 Temp 37.2 Pulse 81 Resp 18 B/P (MAP) 144/74 (97) Pulse Ox 95 O2 Delivery Room Air Room Air 01/22/19 00:00 Intake Total 700 ml Output Total 100 ml Balance 600 ml Weight (Pounds): 191 Weight (Ounces): 0.0 Weight (Calculated Kilograms): 86.046896 Constitutional: AAO x 3, well-developed, well-nourished Respiratory: No accessory muscle use, No respiratory distress; chest expansion is symmetric, chest is bilaterally symmetric, rhonchi (scattered), other (prolonged expiratory phase) Cardiovascular: regular rate-rhythm; No JVD; S1 and S2, systolic murmur Gastrointestional: No tender; soft, audible bowel sounds Extremities: other (mild bilat LE swelling) Neurologic/Psychiatric: no motor/sensory deficits, alert, grossly intact Skin: No rash on exposed areas, No ulcerations on exposed areas; other (multiple bruises to arms/legs bilat with abrasions; drsg to left elbow D&I) Results/Procedures: Labs Laboratory Tests 01/22/19 05:55: White Blood Count 10.7, Red Blood Count 3.06L, Hemoglobin 10.3L, Hematocrit 33L, Mean Corpuscular Volume 107H, Mean Corpuscular Hemoglobin 34, Mean Corpuscular Hemoglobin Concent 32, Red Cell Distribution Width 16.3H, Platelet Count 258, Mean Platelet Volume 9.8, Neutrophils (%) (Auto) 74, Lymphocytes (%) (Auto) 15, Monocytes (%) (Auto) 9, Eosinophils (%) (Auto) 2, Basophils (%) (Auto) 0, Neutrophils # (Auto) 7.9H, Lymphocytes # (Auto) 1.7, Monocytes # (Auto) 0.9, Eosinophils # (Auto) 0.2, Basophils # (Auto) 0.0, Sodium Level 139, Potassium Level 4.1, Chloride Level 105, Carbon Dioxide Level 27, Anion Gap 7, Blood Urea Nitrogen 10, Creatinine 0.94, Estimat Glomerular Filtration Rate > 60, BUN/Creatinine Ratio 11, Glucose Level 73, Calcium Level 8.2L, Corrected Calcium 9.2, Total Bilirubin 0.2, Aspartate Amino Transf (AST/SGOT) 17, Alanine Aminotransferase (ALT/SGPT) 16, Alkaline Phosphatase 83, Total Protein 6.1L, Albumin 2.7L Microbiology 01/19/19 Urine Culture - Final, Complete Escherichia coli A/P: Assessment: Bruising and oozing of bleed from iv sites and from minor injuries, improving AMS of undetermined etiology, probably related to alcohol withdrawal, managed by the Hospitalist Svce - improved PAF Anemia of undetermined etiology - being managed the Hospitalist/Medical Svce Hypertension - uncontrolled H/o mild to mod pancytopenia being during admission of Dec 23-Dec 4 OAC with Eliquis Upper and lower endoscopy of 12-27-[address] 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 This is of unknown age. There is mild to moderate narrowing of the proximal basilar artery. Per CTA of 01-02-19 Recent weight loss of approx 30 lbs of undetermined etiology CAD - Cardiac cath of 09/19/18 showed patent RCA stents that were place in Apr 2016: Alpine Xience 3.5 x 15 mm prox and Alpine Xience 3.0 x 15 mm distally, postdilated with a 3.5 mm balloon, The rest of the vessels have diffuse, mod disease. LVEF 50-55%. Normal LVEDP Echocardiogram of December 24, [address] Jimenez concentric hypertrophy. LVEF 45-50%. Grade 1 diastolic dysfunction. AoV thickening consistent with sclerosis with mild regurg. PASP 15-20mmHg. Severe ostial left renal artery stenosis with subsequent percutaneous transluminal angioplasty and residual minimal stenosis, no dissection or distal embolization by Dr. Keen at [facility] in [place], [place] in the early CT of the chest from August 2016 showed borderline adenopathy in the axillary regions and in the subcarinal space. 7 mm pulmonary nodule in the RUL. This is followed by Dr Toya MENDOZA, treated with CPAP, followed by Dr Pittman Mild carotid arterial disease on carotid u/s of 09/21/18 PAD - PCI of the right anterior tibial, posterior tibial and peroneal with Medtronic Nitinol 4mm x 20mm stent in the right posterior tibial December 08, [address] Langston in [place], [place]. Peripheral angio of 09/19/18: Infrarenal AAA, mod in size, just above aorto iliac bifurcation; mod diff disease of the sup fems and distal leg circulation on both sides. Patent R post tib stent HLP - statin therapy followed by his PCP - currently being withheld d/t recent episode of pancreatitis Emphysema GERD H/o pancreatitis in the past - managed by PCP EKG of 11-03-15 showed LVH with repolarization abnormality and LAFB; not sign ificantly changed on 09/13/18 CKD stage 2-3 H/o heavy ETOH use Tobaccoism - 2 PPD Plan: * Continue Low-dose apixaban * Monitor labs * Continue current medication regimen BARNEY KINSEY Jan 22, 2019 08:34
--- NOTE | 2019-01-22 08:59 | PM&R Progress Note ---
Subjective HPI/CC On Admission Date Seen by Provider: Jan 22, 2019 Time Seen by Provider: 08:30 CC: Debility from alcoholism and altered mental status HPI: This is a 73yoWM who was admitted nearly a week ago of Dr. Macias's who presented with altered mental status found to have significant alcohol withdrawal of which his was unaware that he was drinking alcohol but he was provided supportive care and subsequently has become quite debilitated overall. Smoking cessation has been counseled along with alcohol cessation. He is a retired [employer] for 35 years in [place]. He does report that he is needing to cut down on his alcohol. At this current time pt denies any significant pain, meds were reviewed, and will be continued on inpatient rehab. He has become incontinent and is need of further recovery before DC is planned. HPI per ELMER Martinez Sebastien Toledo is a 73-year-old male with past medical history of hypertension, coronary artery disease, GERD, and ETOH abuse who was recently admitted for AMS; his hospital stay was complicated by alcohol withdrawal. 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 CVA was suspected but ruled out via CT and clinical picture which was more consistent with ETOH withdrawal rather than CT. No MRI was done. Alcohol abuse was managed via activating CIWA protocol, giving thiamine and Folic acid. Pt was recently diagnosed with Paroxysmal Afib and was followed by Cardiology who ordered an Echo and started him on Eliquis. Pt's last stay also involved Macrocytic anemia which required transfusions and continued tx with folic acid. After pt was stabilized he was transitioned to inpatient rehabilitation on 01/08/19. I was consult for evaluation of restless leg symptoms. Patient reports last couple of evenings beginning shortly after getting into bed he will develop uncomfortable sensation in his legs that is only alleviated by moving them. He's had this in the past and I have not prescribed medication for him but his had either Mirapex her ropinirole he has taken her medication with release of his symptoms. He does have anemia with a low folate level that is macrocytic that with a history of esophagitis poor nutritional status from alcoholism iron deficiency is highly likely as well. He denies melena or bright red blood per rectum and denies abdominal pain. He is back to baseline mental status after b eing admitted with altered mental status and delirium. This is likely due to alcohol withdrawal. Subjective/Events-last exam UCx reviewed and pansensitive Escherichia coli so discontinued Rocephin and started Keflex No incontinence last night Labs appear to be stable needs him in a penitentiary since she cannot take care of him at home Overall very poor prognosis long-term Has problems sleeping at night at times No pain is reported Conferred with RN. Reviewed therapy notes. Checked meds and labs. Review of Systems General: Fatigue Objective Exam Vital Signs Vital Signs Date Time Temp Pulse Resp B/P (MAP) Pulse Ox O2 Delivery O2 Flow Rate FiO2 01/22/19 05:05 37.2 81 18 144/74 (97) 95 Room Air Capillary Refill : General Appearance: No Apparent Distress, WD/WN, Chronically ill HEENT: PERRL/EOMI, Normal ENT Inspection, Pharynx Normal, Moist Mucous Membranes Neck: Full Range of Motion, Normal Inspection, Non Tender, Supple Respiratory: Chest Non Tender, Lungs Clear, Normal Breath Sounds, No Accessory Muscle Use, No Respiratory Distress Cardiovascular: Regular Rate, Rhythm, No Edema, No Gallop, No JVD, No Murmur Gastrointestinal: Normal Bowel Sounds, No Organomegaly, No Pulsatile Mass, Non Tender, Soft Back: Normal Inspection, No CVA Tenderness, No Vertebral Tenderness Extremity: Normal Capillary Refill, Normal Inspection, Normal Range of Motion, Non Tender, No Calf Tenderness, No Pedal Edema Neurologic/Psychiatric: Alert, Oriented x3, No Motor/Sensory Deficits, Normal Mood/Affect, Disoriented Skin: Normal Color, Warm/Dry Lymphatic: No Adenopathy Results/Procedures Lab Laboratory Tests 01/22/19 05:55 Patient resulted labs reviewed. FIM Transfers Therapy Code Descriptions/Definitions Functional Anderson Measure: 0=Not Assessed/NA 4=Minimal Assistance 1=Total Assistance 5=Supervision or Setup 2=Maximal Assistance 6=Modified Anderson 3=Moderate Assistance 7=Complete Anderson Therapy Quality Codes: 6 Independent with activity with or without an assistive device 5 Patient requires set up or clean up by helper. Patient completes activity by themselves 4 Supervision or touching assist (CGA). Odell provide cues , steadying assist 3 The helper provides less than half the effort to complete the activity 2 The helper provides more than half the effort to complete the activity 1 Dependent. The helper does all the effort to complete an activity 7 Patient refused to complete or attempt activity 9 The patient did not perform the activity before the current illness or injury 88 Not attempted due to Medical conditions or safety concerns Transfers (B, C, W/C) (FIM): 5 Scootin Rollin Roll Left to Right (QC): 5 Supine to/from Sit: 5 Sit to/from Stand: 5 Sit to Lying (QC): 5 Sit to Stand (QC): 5 Chair/[id number] Xfer(QC): 4 Bed to/from Chair: 5 Car Transfer (QC): 5 Gait Training Does the Patient Walk?: Yes Gait (FIM): 5 Distance (FIM): 3=150 ft Distance: 390 Walk 10 feet (QC): 5 Walk 50 ft with 2 Turns(QC): 5 Walk 150 ft (QC): 5 Walking 10ft/uneven surface-QC: 4 Gait Level of Assist: 5 Gait Persons Needed: 1 Gait Assistive Device: FWW Wheelchair Training Does the Pt Use a Wheelchair?: No Stair Training Stairs (FIM): 1 #of Steps: 1 1 Step (curb) (QC): 4 4 Steps (QC): 9 12 Steps (QC): 9 Level of Assist: 4 Mental Status/Objective Comprehension: 7 Expression: 7 Social Interaction: 7 Problem Solvin Memory: 7 ADL-Treatment Feedin (Built up handles used.) Eating (QC): 6 Groomin (SUP at sink, use of FWW for support.) Oral Hygiene (QC): 5 (SUP at sink) Bathin (SBA during stance. Pt requests to wash back/ bottom/ feet with long handled sponge while in stance as he does at home. Pt stood (SBA), good use of grab bars and fair coordination. Pt demonstrates SOB during tasks, cues for pursed lip breathing during activity. ) Shower/Bathe Self (QC): 4 (SBA and cues ) Upper Extremity Dressin (Pt dressed with robe with min A dur to difficulty placeing R arm through sleeve.) Upper Body Dressing (QC): 3 Lower Extremity Dressin (SBA during stance to pull up, pt completes threading activity seated in chair.) Lower Body Dressing (QC): 5 (SBA in stance.) On/Off Footwear (QC): 6 (increased time.) Toiletin (SBA for safety during stance for wiping after BM) Toileting Hygiene (QC): 5 (s/u) Toilet/Commode Transfer: 4 (SBA, use of FWW and grab bars. Good motor control on this date.) Toilet Transfer (QC): 5 (SBA) Tub: 5 (SBA) Shower: 5 (SBA, use of grab bars and FWW.) Assessment/Plan Assessment and Plan Assess & Plan/Chief Complaint Plan: IRF protocol Supportive care Delirium monitoring ETOH cessation Hold laxatives until needed RLS per PCP consultation Nebs to maintain when necessary Ativan as needed Monitor urinary system Eliquis and aspirin restarted per cardiology Monitor falls UTI acute placed on Rocephin empirically now discontinued and started on Keflex due to pansensitive Escherichia coli Needs penitentiary placement Continued and major fall risk (1) Debility Status: Acute (2) Hypokalemia Status: Acute (3) Folate deficiency Status: Acute (4) Pancytopenia Status: Acute (5) Interstitial lung disease Status: Chronic (6) Weight loss, unintentional Status: Chronic (7) CAD (coronary artery disease) Status: Chronic Qualifiers: Coronary Disease-Associated Artery/Lesion type: habematolel artery [place] vs. transplanted heart: habematolel heart Associated angina: without angina Qualified Codes: I25.10 - Atherosclerotic heart disease of habematolel coronary artery without angina pectoris (8) HTN (hypertension) Status: Chronic Qualifiers: Hypertension type: essential hypertension Qualified Codes: I10 - Essential (primary) hypertension (9) Nausea & vomiting Status: Acute Qualifiers: Vomiting type: unspecified (10) Atrial fibrillation with rapid ventricular response Status: Acute (11) Hypomagnesemia Status: Acute (12) Vertebral artery occlusion Status: Chronic Qualifiers: Laterality: unspecified laterality Qualified Codes: I65.09 - Occlusion and stenosis of unspecified vertebral artery (13) Aphasia Status: Acute (14) Altered mental status Status: Resolved Resolution Date/Time: 01/07/19 @ 11:56 (15) Alcohol dependence Status: Resolved Resolution Date/Time: 01/07/19 @ 11:56 Qualifiers: 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
--- NOTE | 2019-01-22 09:33 | Progress Note - Cardiology ---
Cardiology SOAP Progress Note Subjective: Gen weakness and poor balance No cp or palp or syncope or shortness of breath Objective: I&O/Vital Signs 01/22/19 05:05 Temp 37.2 Pulse 81 Resp 18 B/P (MAP) 144/74 (97) Pulse Ox 95 O2 Delivery Room Air 01/22/19 00:00 Intake Total 700 ml Output Total 100 ml Balance 600 ml Weight (Pounds): 191 Weight (Ounces): 0.0 Weight (Calculated Kilograms): 86.214423 Constitutional: AAO x 3, well-developed, well-nourished Respiratory: No accessory muscle use, No respiratory distress; chest expansion is symmetric, chest is bilaterally symmetric, rhonchi (scattered), other (prolonged expiratory phase) Cardiovascular: regular rate-rhythm; No JVD; S1 and S2, systolic murmur Gastrointestional: No tender; soft, audible bowel sounds Extremities: other (mild bilat LE swelling) Neurologic/Psychiatric: no motor/sensory deficits, alert, grossly intact Skin: No rash on exposed areas, No ulcerations on exposed areas; other (multiple bruises to arms/legs bilat with abrasions; drsg to left elbow D&I) Results/Procedures: Labs Laboratory Tests 01/22/19 05:55: White Blood Count 10.7, Red Blood Count 3.06L, Hemoglobin 10.3L, Hematocrit 33L, Mean Corpuscular Volume 107H, Mean Corpuscular Hemoglobin 34, Mean Corpuscular Hemoglobin Concent 32, Red Cell Distribution Width 16.3H, Platelet Count 258, Mean Platelet Volume 9.8, Neutrophils (%) (Auto) 74, Lymphocytes (%) (Auto) 15, Monocytes (%) (Auto) 9, Eosinophils (%) (Auto) 2, Basophils (%) (Auto) 0, Neutrophils # (Auto) 7.9H, Lymphocytes # (Auto) 1.7, Monocytes # (Auto) 0.9, Eosinophils # (Auto) 0.2, Basophils # (Auto) 0.0, Sodium Level 139, Potassium Level 4.1, Chloride Level 105, Carbon Dioxide Level 27, Anion Gap 7, Blood Urea Nitrogen 10, Creatinine 0.94, Estimat Glomerular Filtration Rate > 60, BUN/Creatinine Ratio 11, Glucose Level 73, Calcium Level 8.2L, Corrected Calcium 9.2, Total Bilirubin 0.2, Aspartate Amino Transf (AST/SGOT) 17, Alanine Aminotransferase (ALT/SGPT) 16, Alkaline Phosphatase 83, Total Protein 6.1L, Albumin 2.7L Microbiology 01/19/19 Urine Culture - Final, Complete Escherichia coli Laboratory Tests 01/22/19 05:55 A/P: Assessment: Bruising and oozing of bleed from iv sites and from minor injuries, improving AMS of undetermined etiology, probably related to alcohol withdrawal, managed by the Hospitalist Svce - improved PAF Anemia of undetermined etiology - being managed the Hospitalist/Medical Svce Hypertension - improving control H/o mild to mod pancytopenia being during admission of Dec 23-Dec 4 OAC with Eliquis Upper and lower endoscopy of 12-27-[address] 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 This is of unknown age. There is mild to moderate narrowing of the proximal basilar artery. Per CTA of 01-02-19 Recent weight loss of approx 30 lbs of undetermined etiology CAD - Cardiac cath of 09/19/18 showed patent RCA stents that were place in Apr 2016: Alpine Xience 3.5 x 15 mm prox and Alpine Xience 3.0 x 15 mm distally, postdilated with a 3.5 mm balloon, The rest of the vessels have diffuse, mod disease. LVEF 50-55%. Normal LVEDP Echocardiogram of December 24, [address] Jimenez concentric hypertrophy. LVEF 45-50%. Grade 1 diastolic dysfunction. AoV thickening consistent with sclerosis with mild regurg. PASP 15-20mmHg. Severe ostial left renal artery stenosis with subsequent percutaneous transluminal angioplasty and residual minimal stenosis, no dissection or distal embolization by Dr. Keen at [facility] in [place], [place] in the early CT of the chest from August 2016 showed borderline adenopathy in the axillary regions and in the subcarinal space. 7 mm pulmonary nodule in the RUL. This is followed by Dr Toya MENDOZA, treated with CPAP, followed by Dr Pittman Mild carotid arterial disease on carotid u/s of 09/21/18 PAD - PCI of the right anterior tibial, posterior tibial and peroneal with Medtronic Nitinol 4mm x 20mm stent in the right posterior tibial December 08, [address] Langston in [place], [place]. Peripheral angio of 09/19/18: Infrarenal AAA, mod in size, just above aorto iliac bifurcation; mod diff disease of the sup fems and distal leg circulation on both sides. Patent R post tib stent HLP - statin therapy followed by his PCP - currently being withheld d/t recent episode of pancreatitis Emphysema GERD H/o pancreatitis in the past - managed by PCP EKG of 11-03-15 showed LVH with repolarization abnormality and LAFB; not significantly changed on 09/13/18 CKD stage 2-3 H/o heavy ETOH use Tobaccoism - 2 PPD Plan: * Continue current cardiac regimen * I answered his CV-related questions * Monitor labs from time to time DAGO RAPHAEL MD FACP FAC CCDS Jan 22, 2019 09:32
--- NOTE | 2019-01-22 10:02 | Physical Therapy Daily Note ---
PT Daily Note-Current Subjective Pt. agrees to Rx. States he is a little concerned about his being gone most of the day when he gets home. Educational discussion about neuropathy and its affects on feet and hands which pt. comments on having. This ACID CRANE OPERATOR pointed out the risks involvedd in driving with such impaired sensation in feet and hands. Pt. acknowledged this as well Pain Location: No Pain Reported Appearance appears min SOB with activity Mental Status Patient Orientation: Person, Place, Time, Situation Transfers Therapy Code Descriptions/Definitions Functional [place] Measure: 0=Not Assessed/NA 4=Minimal Assistance 1=Total Assistance 5=Supervision or Setup 2=Maximal Assistance 6=Modified [place] 3=Moderate Assistance 7=Complete [place] Therapy Quality Codes: 6 Independent with activity with or without an assistive device 5 Patient requires set up or clean up by helper. Patient completes activity by themselves 4 Supervision or touching assist (CGA). [place] provide cues , steadying assist 3 The helper provides less than half the effort to complete the activity 2 The helper provides more than half the effort to complete the activity 1 Dependent. The helper does all the effort to complete an activity 7 Patient refused to complete or attempt activity 9 The patient did not perform the activity before the current illness or injury 88 Not attempted due to Medical conditions or safety concerns Transfers (B, C, W/C) (FIM): 6 Scootin Rollin Roll Left to Right (QC): 6 Supine to/from Sit: 6 Sit to/from Stand: 6 Sit to Lying (QC): 6 Sit to Stand (QC): 6 Chair/Ogg-hq-Ahhwf Xfer(QC): 6 Bed to/from Chair: 6 Car Transfer (QC): 6 Weight Bearing Right Lower Extremity: Right Weight Bearing/Tolerated Left Lower Extremity: Left Weight Bearing/Tolerated Gait Training Does the Patient Walk?: Yes Gait (FIM): 5 Distance (FIM): 3=150 ft (150x3) Walk 10 feet (QC): 6 Walk 50 ft with 2 Turns(QC): 5 Walk 150 ft (QC): 5 Walking 10ft/uneven surface-QC: 5 Gait Level of Assist: 5 Gait Persons Needed: 1 Gait Assistive Device: FWW Pt. gets feet outside of FWW and has difficulty feeling when his feet are bumping in to an object, wide ROHAN and flexed posture with significant wt bearing on FWW. Pt. staggers at times and has some ataxia. SBA with some skilled verbal instruction for safety is needed 25% of time Stair Training Stair Training: Handrails/: 2 handrails Stairs (FIM): 2 #of Steps: 4 1 Step (curb) (QC): 4 4 Steps (QC): 4 Stairs: Pattern: Step to Level of Assist: 4 needs min to CGA and skilled verbal instruction for all sequence step by step, pt. doesnt know when his foot is in contact with the step for ascent and descent Exercises Supine Ex: Bridging, Ankle pumps, Quad Set, Rolling, Glut sets, Heel Slides, Short Arc Quads, Scooting, Straight leg raise, Hip abd/add Supine Reps: 12 NuStep Minutes: 10 NuStep Workload: 3 Treatments endurance and ex tolerance training on Nustep with O2sats monitored at >90% Assessment Current Status: Good Progress Pt. requires SBA for safety as well as some cuing. PT Short Term Goals Short Term Goals Transfers (B,C,W/C) (FIM): 5 (met- SBA) PT Prison Goals Tack Puller Machine Goals PT Tack Puller Machine Goals Time Frame: Feb 03, 2019 Transfers (B,C,W/C) (FIM): 6 Sit to Lying (QC): 6 Lying-Sitting on Side/Bed(QC): 6 Sit to Stand (QC): 6 Rollin Roll Left to Right (QC): 6 Chair/Afh-mz-Beexw Xfer(QC): 6 Car Transfer (QC): 6 Does the Patient Walk: Yes Gait (FIM): 6 Gait distance (FIM): 3=150 ft Distance: 250' Walk 10 feet (QC): 6 Walk 10ft-Uneven Surface(QC): 6 Walk 50ft with 2 Turns (QC): 6 Walk 150 ft (QC): 6 Gait Level of Assist: 6 Gait Assistive Device: FWW Stairs (FIM): 2 # of Steps: 4 1 Step (curb) (QC): 6 4 Steps (QC): 6 12 Steps (QC): 9 Stairs Level Of Assist: 6 Picking up an Object (QC): 6 PT Plan Treatment/Plan Treatment Plan: Continue Plan of Care Treatment Plan: Bed Mobility, Education, Functional Activity Jordy, Functional Strength, Group Therapy, Gait, Safety, Therapeutic Exercise, Transfers Treatment Duration: Feb 03, 2019 Frequency: At least 5 of 7 days/Wk (IRF) Estimated Hrs Per Day: 1.5 hours per day Patient and/or Family Agrees t: Yes Safety Risks/Education Patient Education: Gait Training, Transfer Techniques, Steps, Correct Positioning, Disease Process, Safety Issues Teaching Recipient: Patient Teaching Methods: Demonstration, Discussion Response to Teaching: Verbalize Understanding, Return Demonstration, Reinforcement Needed Time/GCodes Time In: 900 Time Out: 1000 Total Billed Treatment Time: 60 Total Billed Treatment 1,FA15m,GT20m,EX25m RUDY INIGUEZ ACID CRANE OPERATOR Jan 22, 2019 10:02
[2019-01-22] MEDS: LORATADINE (CLARITIN) 10 MG TAB PO SCH (10:14)
[2019-01-22] MEDS: FUROSEMIDE 40 MG (LASIX) TAB PO SCH (10:14)
[2019-01-22] MEDS: KCL 10 MEQ TAB (MICRO K) PO SCH (10:14)
[2019-01-22] MEDS: LOSARTAN 100 MG (COZAAR) TABLET PO SCH (10:14)
[2019-01-22] MEDS: ASPIRIN 81 MG CHEW (CHILDREN'S ASA) PO SCH (10:14)
[2019-01-22] MEDS: PANTOPRAZOLE 20 MG TABLET (PROTONIX) PO SCH (10:14)
[2019-01-22] MEDS: amLODIPine 5 MG (NORVASC) TAB PO SCH (10:14)
[2019-01-22] MEDS: APIXABAN 2.5 MG (ELIQUIS) TABLET PO SCH ×2 (10:14→20:17)
[2019-01-22] MEDS: meTOprolol SUCCINATE 100 MG (TOPROL XL) TAB PO SCH ×2 (10:15→20:17)
[2019-01-22] MEDS: CEPHALEXIN 250 MG (KEFLEX) CAP PO SCH ×4 (10:18→20:17)
--- NOTE | 2019-01-22 11:46 | Occupational Ther Daily Note ---
OT Current Status-Daily Note Subjective Pt seen supine in bed, pt asleep. Pt awakes with verbal direction. Pt states no pain, states confusion within the night. Pt states he woke up, pressed call light, then was unsure of what he pressed call light for upon nursing entry. Pt states he has been confused within the night a few times this weekend. Pt a greeable to OT services. Pain Numeric Pain Scale: 0-No Pain Mental Status/Objective Patient Orientation: Normal For Age Therapy Code Descriptions/Definitions Functional [place] Measure: 0=Not Assessed/NA 4=Minimal Assistance 1=Total Assistance 5=Supervision or Setup 2=Maximal Assistance 6=Modified [place] 3=Moderate Assistance 7=Complete [place] ADL-Treatment Therapy Code Descriptions/Definitions Functional [place] Measure: 0=Not Assessed/NA 4=Minimal Assistance 1=Total Assistance 5=Supervision or Setup 2=Maximal Assistance 6=Modified [place] 3=Moderate Assistance 7=Complete [place] Therapy Quality Codes: 6 Independent with activity with or without an assistive device 5 Patient requires set up or clean up by helper. Patient completes activity by themselves 4 Supervision or touching assist (CGA). [place] provide cues , steadying assist 3 The helper provides less than half the effort to complete the activity 2 The helper provides more than half the effort to complete the activity 1 Dependent. The helper does all the effort to complete an activity 7 Patient refused to complete or attempt activity 9 The patient did not perform the activity before the current illness or injury 88 Not attempted due to Medical conditions or safety concerns Eating (FIM): 6 (use of modified handles for gripping utensils. Pt drinks with IND and good motor control) Eating (QC): 6 Grooming (FIM): 5 (Pt completes hair grooming and oral hygiene with SBA at sink. ) Oral Hygiene (QC): 4 (SBA at sink) Bathing (FIM): 5 (SBA during stance. Pt utilizes shower bench within the shower, able to wash all areas without use of AE. ) Shower/Bathe Self (QC): 4 (SBA in stance.) Upper Body (FIM): 6 (Gathered clothing items. Completed dressing tasks in chair.) Upper Body Dressing (QC): 6 Lower Body Dressing (FIM): 5 (Gathered clothing items. Completed dressing tasks in chair. Pt requires SBA in stance at FWW for pulling up pants as pt states his knees "give out" on him. ) Lower Body Dressing (QC): 4 (SBA in stance.) On/Off Footwear (QC): 6 (Increased time, seated in chair.) Toileting (FIM): 5 (SBA in stance at commode. ) Toileting Hygiene (QC): 6 Transfers (B, C, W/C) (FIM): 5 (SBA for safety with sit to stand at FWW) Toilet/Commode Transfer (FIM): 5 (SBA, use of commode) Toilet Transfer (QC): 4 (SBA ) Tub Transfer(FIM): 5 (SBA. Pt utilizes FWW to back up to shower seat, holds onto grab bars to lower. Good safety awareness and motor control.) Shower Transfer(FIM): 5 (SBA) Other Treatment Pt states rough night due to waking and odd dreams. Pt completes bed mobility with SBA, sit to stand SBA. Pt completes toileting routine. Pt ambulates to therapy gym with SBA and use of FWW for safety. Pt completes 11 minutes of arm bike at 20 edwards of resistance, no breaks utilized. Pt requires built-up handles with wash cloths on arm bike due to pain in hands. Pt reports decreased pain with use of handles. Pt no c/o SOB during activities, stating he can see improvement in endurance. Pt returns to room with call light in reach, all needs met. Pt seen in recliner chair, agreeable to services. Pt gathers clothing items from closet with SBA for safety in stance. Pt completes toileting routine and showeri ng. Pt dresses in chair near shower. Pt able to complete items without touch. Pt completes oral hygiene with SBA. Pt educated on 2 different basket/ tray options for FWW. Pt states he would prefer tray that allows for safe plate transfer on walker. Pt able to return demonstrate ability to flip tray for greater stride when not in use and completed ambulation without cup/ "plate" spillage. Pt states he has tile at home and believes this tray would benefit his abilities to complete activities at home. Pt educated of safety concerns in home- removing rugs, grab bars, wearing shoes within the home. Pt states understanding. Pt returns to bed, call light in reach, all needs met. Education OT Patient Education: Correct positioning, Energy conservation, Exercise program, Modified ADL techniques, Progress toward Goal/Update tx plan, Purpose of tx/functional activities, Rehab process, Safety issues, Transfer techniques, Use of adapted equipment Teaching Recipient: Patient Teaching Methods: Demonstration, Discussion Response to Teaching: Verbalize Understanding, Return Demonstration OT Short Term Goals Short Term Goals Upper Body Dressing(FIM): 6 (met) Lower Body Dressing(FIM): 3 (met) Transfers (B,C,W/C) (FIM): 5 (met- SBA) 1=Demonstrate adherence to instructed precautions during ADL tasks. 2=Patient will verbalize/demonstrate understanding of assistive devices/modifications for ADL. 3=Patient will improve strength/tolerance for activity to enable patient to pe rform ADL's. OT Prison Goals Systems Integration Manager Goals Eating (FIM): 7 (met) Eating (QC): 6 (met) Groomin Oral Hygiene (QC): 6 Bathing(FIM): 6 Shower/Bathe Self (QC): 6 Upper Body Dressing(FIM): 6 (met) Upper Body Dressing (QC): 6 (met) Lower Body Dressing(FIM): 6 Lower Body Dressing (QC): 6 On/Off Footwear (QC): 6 (met) Toileting(FIM): 5 (met) Toileting Hygiene (QC): 6 Transfers (B,C,W/C) (FIM): 6 Toilet/Commode Transfer(FIM): 5 (met) Toilet/Commode Transfer (QC): 4 (met) Tub Transfer(FIM): 5 (met) Shower Transfer(FIM): 5 Additional Goals: 1-Demonstrate ADL Tasks, 2-Verbalize Understanding, 3- ImproveStrength/Jordy 1=Demonstrate adherence to instructed precautions during ADL tasks. 2=Patient will verbalize/demonstrate understanding of assistive devices/modifications for ADL. 3=Patient will improve strength/tolerance for activity to enable patient to perform ADL's. OT Education/Plan Problem List/Assessment Assessment: Decreased Activ Tolerance, Decreased Safety Aware, Impaired Coordination, Impaired I ADL's, Impaired Self-Care Skills Discharge Recommendations Plan/Recommendations: Continue POC Equpiment Recommendations-D/C: Rails on Tub/Shower, Walker Bag or Basket, Rails on Toilet Treatment Plan/Plan of Care Treatment,Training & Education: Yes Patient would benefit from OT for education, treatment and training to promote independence in ADL's, mobility, safety and/or upper extremity function for ADL's. Plan of Care: ADL Retraining, Caregiver Training, Cognitive Retraining, Functional Mobility, Group Exercise/Act as Ind, UE Funct Exercise/Act, UE Neuromus Re-Ed/Coord Treatment Duration: Jan 09, 2019 Frequency: 5 times per week Estimated Hrs Per Day: 1 hour per day (1-1.5 hours per day) Agreement: Yes Rehab Potential: Fair Time/GCodes Start Time: 08:00 (2nd start time: 1030) Stop Time: 08:30 (2nd stop time: 1130) Total Time Billed (hr/min): 90 Billed Treatment Time 1, 1, ADL x4 (60), EX x2 (30) JOANA MENDOZA OTR Jan 22, 2019 11:46
--- NOTE | 2019-01-22 14:03 | Physical Therapy Daily Note ---
PT Daily Note-Current Subjective Pt. agrees to Rx. States he enjoys walking as much as any thing els and feels it makes him stronger. Pt. notes he has a tray on his FWW. PICKING MACHINE OPERATOR HELPER points out that he will need to be cautious of where his feet are as well as where the wheels and front borders of the FWW are since he cannot visualize them as well Pain Location: No Pain Reported Transfers Therapy Code Descriptions/Definitions Functional [place] Measure: 0=Not Assessed/NA 4=Minimal Assistance 1=Total Assistance 5=Supervision or Setup 2=Maximal Assistance 6=Modified [place] 3=Moderate Assistance 7=Complete [place] Therapy Quality Codes: 6 Independent with activity with or without an assistive device 5 Patient requires set up or clean up by helper. Patient completes activity by themselves 4 Supervision or touching assist (CGA). [place] provide cues , steadying assist 3 The helper provides less than half the effort to complete the activity 2 The helper provides more than half the effort to complete the activity 1 Dependent. The helper does all the effort to complete an activity 7 Patient refused to complete or attempt activity 9 The patient did not perform the activity before the current illness or injury 88 Not attempted due to Medical conditions or safety concerns all bed and chair TRFs SBA to Mod I Weight Bearing Right Lower Extremity: Right Weight Bearing/Tolerated Left Lower Extremity: Left Weight Bearing/Tolerated Gait Training Does the Patient Walk?: Yes Gait Assistive Device: FWW 150x3 FWW with special instruction for awareness of foot placement . Pt. kicks legs of FWW a few times terell with turns Exercises Seated Therapy Exercises: Ankle pumps, Sit to stand, Long arc quads, Hip flexion, Hip abd/add Seated Reps: 15 Assessment Current Status: Good Progress at risk for falls, has min SOB and sounds labored at times while walking and exercising PT Short Term Goals Short Term Goals Transfers (B,C,W/C) (FIM): 5 (met- SBA) PT Detention Goals [employer] Developer Goals PT [employer] H[employer] Developer Goals Time Frame: Feb 03, 2019 Transfers (B,C,W/C) (FIM): 6 Sit to Lying (QC): 6 Lying-Sitting on Side/Bed(QC): 6 Sit to Stand (QC): 6 Rollin Roll Left to Right (QC): 6 Chair/Daq-mn-Ubpaz Xfer(QC): 6 Car Transfer (QC): 6 Does the Patient Walk: Yes Gait (FIM): 6 Gait distance (FIM): 3=150 ft Distance: 250' Walk 10 feet (QC): 6 Walk 10ft-Uneven Surface(QC): 6 Walk 50ft with 2 Turns (QC): 6 Walk 150 ft (QC): 6 Gait Level of Assist: 6 Gait Assistive Device: FWW Stairs (FIM): 2 # of Steps: 4 1 Step (curb) (QC): 6 4 Steps (QC): 6 12 Steps (QC): 9 Stairs Level Of Assist: 6 Picking up an Object (QC): 6 PT Plan Treatment/Plan Treatment Plan: Continue Plan of Care Treatment Plan: Bed Mobility, Education, Functional Activity Jordy, Functional Strength, Group Therapy, Gait, Safety, Therapeutic Exercise, Transfers Treatment Duration: Feb 03, 2019 Frequency: At least 5 of 7 days/Wk (IRF) Estimated Hrs Per Day: 1.5 hours per day Patient and/or Family Agrees t: Yes Safety Risks/Education Patient Education: Gait Training, Transfer Techniques, Correct Positioning, Disease Process, Safety Issues Teaching Recipient: Patient Teaching Methods: Demonstration, Discussion Response to Teaching: Verbalize Understanding, Return Demonstration, Reinf orcement Needed Time/GCodes Time In: 1330 Time Out: 1400 Total Billed Treatment Time: 30 Total Billed Treatment 1,EX10,Gt20m RUDY INIGUEZ PICKING MACHINE OPERATOR HELPER Jan 22, 2019 14:03
[2019-01-22 17:20] VITALS: BP 127/60
--- NOTE | 2019-01-22 19:22 | NUR ---
bedside report received from ELLIOT CAT, assume care of pt
[2019-01-22 20:15] VITALS: BP 140/73
[2019-01-22] MEDS: MONTELUKAST 10 MG (SINGULAIR) TAB PO SCH (20:17)
[2019-01-22] MEDS: LORazepam 0.5 MG (ATIVAN) TABLET PO PRN (20:18)
--- NOTE | 2019-01-22 20:18 | NUR ---
requests ativan for anxiety, Ativan 0.5mg po given, side rails up x4, bed alarm distribution associate light within reach
[2019-01-23] MEDS: HYDROcodone/APAP 5 MG/325 MG (LORTAB) TAB PO PRN (00:11)
--- NOTE | 2019-01-23 00:11 | NUR ---
c/o pain level 5/10 on numeric scale, [id number] 1 tab po given
--- NOTE | 2019-01-23 00:50 | NUR ---
resting quietly in bed, pain level 0/10 on flacc scale
[2019-01-23 05:58] VITALS: BP 132/69
[2019-01-23] MEDS: CATHETER FLUSH 10 ML SYR IV SCH (06:30)
[2019-01-23] MEDS: MULTIVIT W/MINERALS TAB (THERAGRAN M) PO SCH (06:46)
[2019-01-23] MEDS: FOLIC ACID 1 MG TAB PO SCH (06:46)
--- NOTE | 2019-01-23 07:46 | NUR ---
bedside report given to KP CAT
[2019-01-23 08:00] VITALS: BP 147/75
--- NOTE | 2019-01-23 08:00 | NUR ---
STATES FEELS IS GETTING STRONGER AND ABLE TO EAT BETTER. COMPLAIN "HARD TIME WAKING UP TODAY".
[2019-01-23] MEDS: amLODIPine 5 MG (NORVASC) TAB PO SCH (09:04)
[2019-01-23] MEDS: PANTOPRAZOLE 20 MG TABLET (PROTONIX) PO SCH (09:04)
[2019-01-23] MEDS: LOSARTAN 100 MG (COZAAR) TABLET PO SCH (09:04)
[2019-01-23] MEDS: CEPHALEXIN 250 MG (KEFLEX) CAP PO SCH ×4 (09:04→20:15)
[2019-01-23] MEDS: ASPIRIN 81 MG CHEW (CHILDREN'S ASA) PO SCH (09:05)
[2019-01-23] MEDS: LORATADINE (CLARITIN) 10 MG TAB PO SCH (09:05)
[2019-01-23] MEDS: APIXABAN 2.5 MG (ELIQUIS) TABLET PO SCH ×2 (09:05→20:15)
[2019-01-23] MEDS: meTOprolol SUCCINATE 100 MG (TOPROL XL) TAB PO SCH ×2 (09:21→20:15)
--- NOTE | 2019-01-23 09:26 | Occupational Ther Daily Note ---
OT Current Status-Daily Note Subjective Pt seen in bed. Pt agreeable to OT tx session, states no pain. Pt states slept well, but woke up many times throughout the night. Mental Status/Objective Patient Orientation: Normal For Age Therapy Code Descriptions/Definitions Functional [place] Measure: 0=Not Assessed/NA 4=Minimal Assistance 1=Total Assistance 5=Supervision or Setup 2=Maximal Assistance 6=Modified [place] 3=Moderate Assistance 7=Complete [place] ADL-Treatment Therapy Code Descriptions/Definitions Functional [place] Measure: 0=Not Assessed/NA 4=Minimal Assistance 1=Total Assistance 5=Supervision or Setup 2=Maximal Assistance 6=Modified [place] 3=Moderate Assistance 7=Complete [place] Therapy Quality Codes: 6 Independent with activity with or without an assistive device 5 Patient requires set up or clean up by helper. Patient completes activity by themselves 4 Supervision or touching assist (CGA). [place] provide cues , steadying assist 3 The helper provides less than half the effort to complete the activity 2 The helper provides more than half the effort to complete the activity 1 Dependent. The helper does all the effort to complete an activity 7 Patient refused to complete or attempt activity 9 The patient did not perform the activity before the current illness or injury 88 Not attempted due to Medical conditions or safety concerns Eating (FIM): 6 (eats with modified built-up handles.Pt compeltes kitchen management with good safety awareness and minimal cues for positioning of FWW. Pt able to pour coffee with good motor control. Transports coffee on tray on FWW.) Eating (QC): 6 Grooming (FIM): 5 (Pt completes hand hygiene at sink with SBA due to safety.) Lower Body Dressing (FIM): 6 (Pt utilizes administrative associate without cues to gather clothing from floor, pt completes LB dressing EOB ) Lower Body Dressing (QC): 6 On/Off Footwear (QC): 6 (Completes EOB, increased time) Toileting (FIM): 5 (SBA for stance during urination) Toileting Hygiene (QC): 5 (SBA in stance.) Transfers (B, C, W/C) (FIM): 5 (SBA with sit to stand to FWW) Other Treatment During sit to stand from EOB, pt places feet outside natural alignment for wide stance to stand. Pt holds onto FWW and forcefully places legs into natural alignment, one leg at a time. Pt states his legs and shoulders feel stiff on this date. Pt ambulates to therapy gym with cues for feet placement inside FWW. Pt completes UB stretching activities to increase functional ROM during daily tasks. Pt completes UE exercises with mod cues for breathing (pt tends to hold breath during exertion), and cues for placement of UE. Pt completes 15 reps of 2 back exercises with theraband. Pt completes fine motor task while standing, matching multi-shaped pegs with correctly shaped holes. Pt completes 5 pegs in 2:03, requires rest break and sits; pt completes 5 pegs in 2:17 in stance, requires rest break. Pt demonstrates frustration with task, pt educated of skilled scanning techniques to utilize during functional tasks. Pt return demonstrates, pt completes 5 pegs with use of scanning techniques in 1:06. Pt returns to room, left in recliner with breakfast placed in front of him, able to eat with modified utensils, call light in reach, all needs met. Education OT Patient Education: Correct positioning, Energy conservation, Exercise program, Home exercise program, Modified ADL techniques, Progress toward Goal/Update tx plan, Purpose of tx/functional activities, Rehab process, Safety issues Teaching Recipient: Patient Teaching Methods: Demonstration, Discussion Response to Teaching: Verbalize Understanding, Return Demonstration OT Short Term Goals Short Term Goals Upper Body Dressing(FIM): 6 (met) Lower Body Dressing(FIM): 3 (met) Transfers (B,C,W/C) (FIM): 5 (met- SBA) 1=Demonstrate adherence to instructed precautions during ADL tasks. 2=Patient will verbalize/demonstrate understanding of assistive devices/modifications for ADL. 3=Patient will improve strength/tolerance for activity to enable patient to perform ADL's. OT Fpc Goals Applications Chemist Goals Eating (FIM): 7 (met) Eating (QC): 6 (met) Groomin Oral Hygiene (QC): 6 Bathing(FIM): 6 Shower/Bathe Self (QC): 6 Upper Body Dressing(FIM): 6 (met) Upper Body Dressing (QC): 6 (met) Lower Body Dressing(FIM): 6 Lower Body Dressing (QC): 6 On/Off Footwear (QC): 6 (met) Toileting(FIM): 5 (met) Toileting Hygiene (QC): 6 Transfers (B,C,W/C) (FIM): 6 Toilet/Commode Transfer(FIM): 5 (met) Toilet/Commode Transfer (QC): 4 (met) Tub Transfer(FIM): 5 (met) Shower Transfer(FIM): 5 Additional Goals: 1-Demonstrate ADL Tasks, 2-Verbalize Understanding, 3- ImproveStrength/Jordy 1=Demonstrate adherence to instructed precautions during ADL tasks. 2=Patient will verbalize/demonstrate understanding of assistive devices/modifications for ADL. 3=Patient will improve strength/tolerance for activity to enable patient to perform ADL's. OT Education/Plan Problem List/Assessment Assessment: Decreased Activ Tolerance, Decreased UE Strength, Impaired Coordination, Impaired Funct Balance, Impaired I ADL's, Impaired Self-Care Skills Discharge Recommendations Plan/Recommendations: Continue POC Treatment Plan/Plan of Care Treatment,Training & Education: Yes Patient would benefit from OT for education, treatment and training to promote independence in ADL's, mobility, safety and/or upper extremity function for ADL's. Plan of Care: ADL Retraining, Caregiver Training, Cognitive Retraining, Functional Mobility, Group Exercise/Act as Ind, UE Funct Exercise/Act, UE Neuromus Re-Ed/Coord Treatment Duration: Jan 09, 2019 Frequency: 5 times per week Estimated Hrs Per Day: 1 hour per day (1-1.5 hours per day) Agreement: Yes Rehab Potential: Fair Time/GCodes Start Time: 08:00 Stop Time: 09:00 Total Time Billed (hr/min): 60 Billed Treatment Time 1 ADL(10), FA 2 (30), EX (20)= (60) JOANA MENDOZA OTR Jan 23, 2019 09:26
--- NOTE | 2019-01-23 10:00 | NUR ---
RIGHT ARM PICC LINE DC'D AND PRESSURE DRESSING APPLIED.
--- NOTE | 2019-01-23 10:05 | Physical Therapy Daily Note ---
PT Daily Note-Current Subjective Pt sitting in recliner eating breakfast upon arrival. Pt had just finished with OT. Pt agrees to PT. Mental Status Patient Orientation: Person, Place, Situation Transfers Therapy Code Descriptions/Definitions Functional [place] Measure: 0=Not Assessed/NA 4=Minimal Assistance 1=Total Assistance 5=Supervision or Setup 2=Maximal Assistance 6=Modified [place] 3=Moderate Assistance 7=Complete [place] Therapy Quality Codes: 6 Independent with activity with or without an assistive device 5 Patient requires set up or clean up by helper. Patient completes activity by themselves 4 Supervision or touching assist (CGA). [place] provide cues , steadying assist 3 The helper provides less than half the effort to complete the activity 2 The helper provides more than half the effort to complete the activity 1 Dependent. The helper does all the effort to complete an activity 7 Patient refused to complete or attempt activity 9 The patient did not perform the activity before the current illness or injury 88 Not attempted due to Medical conditions or safety concerns Scootin Supine to/from Sit: 5 Sit to/from Stand: 5 Sit to Lying (QC): 5 Sit to Stand (QC): 5 Weight Bearing Right Lower Extremity: Right Weight Bearing/Tolerated Left Lower Extremity: Left Weight Bearing/Tolerated Gait Training Does the Patient Walk?: Yes Gait (FIM): 5 Distance (FIM): 3=150 ft Distance: 175' Walk 10 feet (QC): 5 Walk 50 ft with 2 Turns(QC): 5 Walk 150 ft (QC): 5 Gait Level of Assist: 5 Gait Persons Needed: 1 Gait Assistive Device: FWW Pt fatigues easily and requires occasional standing RB to recover. Wheelchair Training Does the Pt Use a Wheelchair?: No Exercises Seated Therapy Exercises: Ankle pumps, Long arc quads, Hip flexion, Kicking activity, Hip abd/add, Glut set Seated Reps: 20 Treatments Pt finishes breakfast as pt & MOMD TEACHER discuss struggle with confusion from UTI, progress and where pt feels most comfortable upon D/C. Pt transfers from recliner to standing and ambulates in hallway. Pt completes Seated EX in chair in Therapy Gym. After RB, Pt again ambulates in hallway to return to room. Pt attempts using restroom but to no avail. Pt transfers to Supine in bed after RB. Pt is positioned to comfort then resting with all needs met, call light in hand. Assessment Current Status: Fair Progress Pt fatigues easily although MOMD TEACHER seeing close to PLOF with fatigue due to CHF. PT Short Term Goals Short Term Goals Transfers (B,C,W/C) (FIM): 5 (met- SBA) PT Skilled Nursing Goals Skilled Nursing Goals PT Hide Spreader Goals Time Frame: Feb 03, 2019 Transfers (B,C,W/C) (FIM): 6 Sit to Lying (QC): 6 Lying-Sitting on Side/Bed(QC): 6 Sit to Stand (QC): 6 Rollin Roll Left to Right (QC): 6 Chair/Fta-hf-Eirwz Xfer(QC): 6 Car Transfer (QC): 6 Does the Patient Walk: Yes Gait (FIM): 6 Gait distance (FIM): 3=150 ft Distance: 250' Walk 10 feet (QC): 6 Walk 10ft-Uneven Surface(QC): 6 Walk 50ft with 2 Turns (QC): 6 Walk 150 ft (QC): 6 Gait Level of Assist: 6 Gait Assistive Device: FWW Stairs (FIM): 2 # of Steps: 4 1 Step (curb) (QC): 6 4 Steps (QC): 6 12 Steps (QC): 9 Stairs Level Of Assist: 6 Picking up an Object (QC): 6 PT Plan Problem List Problem List: Activity Tolerance, Functional Strength, Gait Treatment/Plan Treatment Plan: Continue Plan of Care Treatment Plan: Bed Mobility, Education, Functional Activity Jordy, Functional Strength, Group Therapy, Gait, Safety, Therapeutic Exercise, Transfers Treatment Duration: Feb 03, 2019 Frequency: At least 5 of 7 days/Wk (IRF) Estimated Hrs Per Day: 1.5 hours per day Patient and/or Family Agrees t: Yes Safety Risks/Education Patient Education: Gait Training, Transfer Techniques, Correct Positioning, Safety Issues Teaching Recipient: Patient Teaching Methods: Discussion Response to Teaching: Verbalize Understanding Time/GCodes Time In: 900 Time Out: 1000 Total Billed Treatment Time: 60 Total Billed Treatment 1, GT (20m), EX (15m) & FA x2 (25m) MELLISSA RANGEL MOMD TEACHER Jan 23, 2019 10:05
--- NOTE | 2019-01-23 10:17 | Progress Note - Cardiology ---
Cardiology SOAP Progress Note Subjective: Sitting up in bed. Completed PT. Feels he is getting stronger. No c/o CP, palpitations, syncope or near syncope. Objective: I&O/Vital Signs 01/23/19 01/23/19 01/23/19 05:58 07:37 09:00 Temp 36.5 Pulse 69 Resp 18 B/P (MAP) 132/69 (90) Pulse Ox 95 95 O2 Delivery Room Air Room Air Room Air 01/23/19 00:00 Intake Total 440 ml Balance 440 ml Weight (Pounds): 191 Weight (Ounces): 0.0 Weight (Calculated Kilograms): 86.560030 Constitutional: AAO x 3, well-developed, well-nourished Respiratory: No accessory muscle use, No respiratory distress; chest expansion is symmetric, chest is bilaterally symmetric, rhonchi (scattered), other (prolonged expiratory phase) Cardiovascular: regular rate-rhythm; No JVD; S1 and S2, systolic murmur Gastrointestional: No tender; soft, audible bowel sounds Extremities: other (mild bilat LE swelling) Neurologic/Psychiatric: no motor/sensory deficits, alert, grossly intact Skin: No rash on exposed areas, No ulcerations on exposed areas; other (multiple bruises to arms/legs bilat with abrasions; drsg to left elbow D&I) Results/Procedures: Labs Microbiology 01/19/19 Urine Culture - Final, Complete Escherichia coli Laboratory Tests 01/22/19 05:55 A/P: Assessment: Bruising and oozing of bleed from iv sites and from minor injuries, improving AMS of undetermined etiology, probably related to alcohol withdrawal, managed by the Hospitalist Svce - improved PAF Anemia of undetermined etiology - being managed the Hospitalist/Medical Svce Hypertension - improving control H/o mild to mod pancytopenia being during admission of Dec 23-Dec 4 OAC with Sue Upper and lower endoscopy of 12-27-[address] 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 This is of unknown age. There is mild to moderate narrowing of the proximal basilar artery. Per CTA of 01-02-19 Recent weight loss of approx 30 lbs of undetermined etiology CAD - Cardiac cath of 09/19/18 showed patent RCA stents that were place in Apr 2016: Alpine Xience 3.5 x 15 mm prox and Alpine Xience 3.0 x 15 mm distally, postdilated with a 3.5 mm balloon, The rest of the vessels have diffuse, mod disease. LVEF 50-55%. Normal LVEDP Echocardiogram of December 24, [address] Jimenez concentric hypertrophy. LVEF 45-50%. Grade 1 diastolic dysfunction. AoV thickening consistent with sclerosis with mild regurg. PASP 15-20mmHg. Severe ostial left renal artery stenosis with subsequent percutaneous transluminal angioplasty and residual minimal stenosis, no dissection or distal embolization by Dr. Keen at [facility] in [place], [place] in the early CT of the chest from August 2016 showed borderline adenopathy in the axillary regions and in the subcarinal space. 7 mm pulmonary nodule in the RUL. This is followed by Dr Toya MENDOZA, treated with CPAP, followed by Dr Pittman Mild carotid arterial disease on carotid u/s of 09/21/18 PAD - PCI of the right anterior tibial, posterior tibial and peroneal with Medtronic Nitinol 4mm x 20mm stent in the right posterior tibial December 08, [address] Langston in [place], [place]. Peripheral angio of 09/19/18: Infrarenal AAA, mod in size, just above aorto iliac bifurcation; mod diff disease of the sup fems and distal leg circulation on both sides. Patent R post tib stent HLP - statin therapy followed by his PCP - currently being withheld d/t recent e pisode of pancreatitis Emphysema GERD H/o pancreatitis in the past - managed by PCP EKG of 11-03-15 showed LVH with repolarization abnormality and LAFB; not significantly changed on 09/13/18 CKD stage 2-3 H/o heavy ETOH use Tobaccoism - 2 PPD Plan: * Continue current cardiac regimen * I answered his CV-related questions * Monitor labs from time to time Physician Assessment Physician Assessment Gen malaise and poor balance No cp or palp of syncope Lungs: good bilat air entry Cor: reg Ext: no c/c/e A&R * As documented in our note above that I updated (italics) and as noted below * Continue current regimen * I discussed his CV issues with him BARNEY KINSEY Jan 23, 2019 10:17 DAGO RAPHAEL MD FACP FAC CCDS Jan 23, 2019 16:06
--- NOTE | 2019-01-23 10:20 | PM&R Progress Note ---
Subjective HPI/CC On Admission Date Seen by Provider: Jan 23, 2019 Time Seen by Provider: 09:00 CC: Debility from alcoholism and altered mental status HPI: This is a 73yoWM who was admitted nearly a week ago of Dr. Macias's who presented with altered mental status found to have significant alcohol withdrawal of which his was unaware that he was drinking alcohol but he was provided supportive care and subsequently has become quite debilitated overall. Smoking cessation has been counseled along with alcohol cessation. He is a retired [employer] for 35 years in [place]. He does report that he is needing to cut down on his alcohol. At this current time pt denies any significant pain, me ds were reviewed, and will be continued on inpatient rehab. He has become incontinent and is need of further recovery before DC is planned. HPI per ELMER Martinez Sebastien Toledo is a 73-year-old male with past medical history of hypertension, coronary artery disease, GERD, and ETOH abuse who was recently admitted for AMS; his hospital stay was complicated by alcohol withdrawal. 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 CVA was suspected but ruled out via CT and clinical picture which was more consistent with ETOH withdrawal rather than CT. No MRI was done. Alcohol abuse was managed via activating CIWA protocol, giving thiamine and Folic acid. Pt was recently diagnosed with Paroxysmal Afib and was followed by Cardiology who ordered an Echo and started him on Eliquis. Pt's last stay also involved Macrocytic anemia which required transfusions and continued tx with folic acid. After pt was stabilized he was transitioned to inpatient rehabilitation on 01/08/19. I was consult for evaluation of restless leg symptoms. Patient reports last couple of evenings beginning shortly after getting into bed he will develop uncomfortable sensation in his legs that is only alleviated by moving them. He's had this in the past and I have not prescribed medication for him but his had either Mirapex her ropinirole he has taken her medication with release of his symptoms. He does have anemia with a low folate level that is macrocytic that with a history of esophagitis poor nutritional status from alcoholism iron deficiency is highly likely as well. He denies melena or bright red blood per rectum and denies abdominal pain. He is back to baseline mental status after being admitted with altered mental status and delirium. This is likely due to alcohol withdrawal. Subjective/Events-last exam Pt doing pretty well. Culture of urine prompted change of Rocephin to Keflex yesterday since it was pacheco sensitive. Will DC picc line since the skin tears are so close to the pic line and that needs to be removed in order for healing to occur per Dr. Montoya. Pt feels stronger. Eating better. Overall tolerating all treatment well. long-term placement will be required. No pain is reported Conferred with RN. Reviewed therapy notes. Checked meds and labs. Review of Systems General: Fatigue Neurological: Weakness Objective Exam Vital Signs Vital Signs Date Time Temp Pulse Resp B/P (MAP) Pulse Ox O2 Delivery O2 Flow Rate FiO2 01/23/19 18:00 36.6 84 18 108/64 (79) 98 Room Air Capillary Refill : General Appearance: No Apparent Distress, WD/WN, Chronically ill HEENT: PERRL/EOMI, Normal ENT Inspection, Pharynx Normal, Moist Mucous Membranes Neck: Full Range of Motion, Normal Inspection, Non Tender, Supple Respiratory: Chest Non Tender, Lungs Clear, Normal Breath Sounds, No Accessory Muscle Use, No Respiratory Distress Cardiovascular: Regular Rate, Rhythm, No Edema, No Gallop, No JVD, No Murmur Gastrointestinal: Normal Bowel Sounds, No Organomegaly, No Pulsatile Mass, Non Tender, Soft Back: Normal Inspection, No CVA Tenderness, No Vertebral Tenderness Extremity: Normal Capillary Refill, Normal Inspection, Normal Range of Motion, Non Tender, No Calf Tenderness, No Pedal Edema Neurologic/Psychiatric: Alert, Oriented x3, No Motor/Sensory Deficits, Normal Mood/Affect, Disoriented Skin: Normal Color, Warm/Dry Lymphatic: No Adenopathy Results/Procedures Lab Patient resulted labs reviewed. FIM Transfers Therapy Code Descriptions/Definitions Functional [place] Measure: 0=Not Assessed/NA 4=Minimal Assistance 1=Total Assistance 5=Supervision or Setup 2=Maximal Assistance 6=Modified [place] 3=Moderate Assistance 7=Complete [place] Therapy Quality Codes: 6 Independent with activity with or without an assistive device 5 Patient requires set up or clean up by helper. Patient completes activity by themselves 4 Supervision or touching assist (CGA). [place] provide cues , steadying assist 3 The helper provides less than half the effort to complete the activity 2 The helper provides more than half the effort to complete the activity 1 Dependent. The helper does all the effort to complete an activity 7 Patient refused to complete or attempt activity 9 The patient did not perform the activity before the current illness or injury 88 Not attempted due to Medical conditions or safety concerns Transfers (B, C, W/C) (FIM): 5 (SBA with sit to stand to FWW) Scootin Rollin Roll Left to Right (QC): 6 Supine to/from Sit: 6 Sit to/from Stand: 6 Sit to Lying (QC): 6 Sit to Stand (QC): 6 Chair/Wbl-cu-Ovqih Xfer(QC): 6 Bed to/from Chair: 6 Car Transfer (QC): 6 Gait Training Does the Patient Walk?: Yes Gait (FIM): 5 Distance (FIM): 3=150 ft (150x3) Distance: 390 Walk 10 feet (QC): 6 Walk 50 ft with 2 Turns(QC): 5 Walk 150 ft (QC): 5 Walking 10ft/uneven surface-QC: 5 Gait Level of Assist: 5 Gait Persons Needed: 1 Gait Assistive Device: FWW Wheelchair Training Does the Pt Use a Wheelchair?: No Stair Training Stair Training: Handrails/: 2 handrails Stairs (FIM): 2 #of Steps: 4 1 Step (curb) (QC): 4 4 Steps (QC): 4 12 Steps (QC): 9 Stairs: Pattern: Step to Level of Assist: 4 Mental Status/Objective Comprehension: 7 Expression: 7 Social Interaction: 7 Problem Solvin Memory: 7 ADL-Treatment Feedin (eats with modified built-up handles.Pt compeltes kitchen management with good safety awareness and minimal cues for positioning of FWW. Pt able to pour coffee with good motor control. Transports coffee on tray on FWW.) Eating (QC): 6 Groomin (Pt completes hand hygiene at sink with SBA due to safety.) Oral Hygiene (QC): 4 (SBA at sink) Bathin (SBA during stance. Pt utilizes shower bench within the shower, able to wash all areas without use of AE. ) Shower/Bathe Self (QC): 4 (SBA in stance.) Upper Extremity Dressin (Gathered clothing items. Completed dressing tasks in chair.) Upper Body Dressing (QC): 6 Lower Extremity Dressin (Pt utilizes ironer machine without cues to gather clothing from floor, pt completes LB dressing EOB ) Lower Body Dressing (QC): 6 On/Off Footwear (QC): 6 (Completes EOB, increased time) Toiletin (SBA for stance during urination) Toileting Hygiene (QC): 5 (SBA in stance.) Toilet/Commode Transfer: 5 (SBA, use of commode) Toilet Transfer (QC): 4 (SBA ) Tub: 5 (SBA. Pt utilizes FWW to back up to shower seat, holds onto grab bars to lower. Good safety awareness and motor control.) Shower: 5 (SBA) Assessment/Plan Assessment and Plan Assess & Plan/Chief Complaint Plan: IRF protocol Supportive care Delirium monitoring ETOH cessation Hold laxatives until needed RLS per PCP consultation Nebs to maintain when necessary Ativan as needed Monitor urinary system Eliquis and aspirin restarted per cardiology Monitor falls UTI acute placed on Rocephin empirically now discontinued and started on Keflex due to pansensitive Escherichia coli Needs mcc placement Continued and major fall risk (1) Debility Status: Acute (2) Hypokalemia Status: Acute (3) Folate deficiency Status: Acute (4) Pancytopenia Status: Acute (5) Interstitial lung disease Status: Chronic (6) Weight loss, unintentional Status: Chronic (7) CAD (coronary artery disease) Status: Chronic Qualifiers: Coronary Disease-Associated Artery/Lesion type: rampart artery [place] vs. transplanted heart: rampart heart Associated angina: without angina Qualified Codes: I25.10 - Atherosclerotic heart disease of rampart coronary artery without angina pectoris (8) HTN (hypertension) Status: Chronic Qualifiers: Hypertension type: essential hypertension Qualified Codes: I10 - Essential (primary) hypertension (9) Nausea & vomiting Status: Acute Qualifiers: Vomiting type: unspecified (10) Atrial fibrillation with rapid ventricular response Status: Acute (11) Hypomagnesemia Status: Acute (12) Vertebral artery occlusion Status: Chronic Qualifiers: Laterality: unspecified laterality Qualified Codes: I65.09 - Occlusion and stenosis of unspecified vertebral artery (13) Aphasia Status: Acute (14) Altered mental status Status: Resolved Resolution Date/Time: 01/07/19 @ 11:56 (15) Alcohol dependence Status: Resolved Resolution Date/Time: 9/15/19 @ 11:56 Qualifiers: 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
--- NOTE | 2019-01-23 12:11 | Progress Note ---
CONRADO PARKER MED STUDENT 01/23/19 1211: Progress Note Barriers to return home/discharge: * Has dressings on abrasions on his L arm that occurred due to falls. He is concerned about future falls. * He reports he is able to due activities such as dress/shower on his own, but does not think he can cook/clean/do dishes/do laundry on his own. PT reports he needs assistance with stairs. * His works most of the day, he would be on his own a lot of the time, which worries him. * Incontinence and mental status issues are resolved. CITLALI ABAD DO 01/23/19 1953: Supervisory-Addendum Brief Verification & Attestation Participated in pt care: history, MDM, physical Personally performed: exam, history, MDM, supervision of care Care discussed with: Medical Student Procedures: n/a Results interpretation: Verified all documentation Verification and Attestation of Medical Student E/M Service A medical student performed and documented this service in my presence. I reviewed and verified all information documented by the medical student and made modifications to such information, when appropriate. I personally performed the physical exam and medical decision making. Citlali Abad, Jan 23, 2019,19:53 CONRADO PARKER MED STUDENT Jan 23, 2019 12:11 CITLALI ABAD DO Jan 23, 2019 19:53
--- NOTE | 2019-01-23 14:03 | Physical Therapy Daily Note ---
PT Daily Note-Current Subjective Pt sitting up in bed upon arrival. Pt agrees to PT. Pain Location: No Pain Reported Mental Status Patient Orientation: Person, Place, Situation Transfers Therapy Code Descriptions/Definitions Functional [place] Measure: 0=Not Assessed/NA 4=Minimal Assistance 1=Total Assistance 5=Supervision or Setup 2=Maximal Assistance 6=Modified [place] 3=Moderate Assistance 7=Complete [place] Therapy Quality Codes: 6 Independent with activity with or without an assistive device 5 Patient requires set up or clean up by helper. Patient completes activity by themselves 4 Supervision or touching assist (CGA). [place] provide cues , steadying assist 3 The helper provides less than half the effort to complete the activity 2 The helper provides more than half the effort to complete the activity 1 Dependent. The helper does all the effort to complete an activity 7 Patient refused to complete or attempt activity 9 The patient did not perform the activity before the current illness or injury 88 Not attempted due to Medical conditions or safety concerns Weight Bearing Right Lower Extremity: Right Weight Bearing/Tolerated Left Lower Extremity: Left Weight Bearing/Tolerated Exercises Supine Ex: Ankle pumps, Quad Set, Glut sets, Heel Slides, Straight leg raise, Hip abd/add Supine Reps: 20 Treatments Pt completes Supine Ex in bed and DEMO SPECIALIST issues HEP. Pt resting at end of tx with all needs met, call light in hand. Assessment Current Status: Good Progress Pt has some difficulty remembering Ex program so DEMO SPECIALIST issues HEP. PT Short Term Goals Short Term Goals Transfers (B,C,W/C) (FIM): 5 (met- SBA) PT Group Home Goals Optometry Doctor Goals PT Group Home Goals Time Frame: Feb 03, 2019 Transfers (B,C,W/C) (FIM): 6 Sit to Lying (QC): 6 Lying-Sitting on Side/Bed(QC): 6 Sit to Stand (QC): 6 Rollin Roll Left to Right (QC): 6 Chair/Sie-dx-Yvtbc Xfer(QC): 6 Car Transfer (QC): 6 Does the Patient Walk: Yes Gait (FIM): 6 Gait distance (FIM): 3=150 ft Distance: 250' Walk 10 feet (QC): 6 Walk 10ft-Uneven Surface(QC): 6 Walk 50ft with 2 Turns (QC): 6 Walk 150 ft (QC): 6 Gait Level of Assist: 6 Gait Assistive Device: FWW Stairs (FIM): 2 # of Steps: 4 1 Step (curb) (QC): 6 4 Steps (QC): 6 12 Steps (QC): 9 Stairs Level Of Assist: 6 Picking up an Object (QC): 6 PT Plan Problem List Problem List: Activity Tolerance, Functional Strength Treatment/Plan Treatment Plan: Continue Plan of Care Treatment Plan: Bed Mobility, Education, Functional Activity Jordy, Functional Strength, Group Therapy, Gait, Safety, Therapeutic Exercise, Transfers Treatment Duration: Feb 03, 2019 Frequency: At least 5 of 7 days/Wk (IRF) Estimated Hrs Per Day: 1.5 hours per day Patient and/or Family Agrees t: Yes Safety Risks/Education Patient Education: Issued Written HEP, Correct Positioning, Safety Issues Teaching Recipient: Patient Teaching Methods: Discussion Response to Teaching: Verbalize Understanding Time/GCodes Time In: 1330 Time Out: 1400 Total Billed Treatment Time: 30 Total Billed Treatment 1, EX x2 (30m) MELLISSA RANGEL DEMO SPECIALIST Jan 23, 2019 14:03
--- NOTE | 2019-01-23 15:16 | Occupational Ther Daily Note ---
OT Current Status-Daily Note Subjective Pt seen in room, pt supine in bed. Pt states no pain, agreeable to OT services. Mental Status/Objective Therapy Code Descriptions/Definitions Functional [place] Measure: 0=Not Assessed/NA 4=Minimal Assistance 1=Total Assistance 5=Supervision or Setup 2=Maximal Assistance 6=Modified [place] 3=Moderate Assistance 7=Complete [place] ADL-Treatment Therapy Code Descriptions/Definitions Functional [place] Measure: 0=Not Assessed/NA 4=Minimal Assistance 1=Total Assistance 5=Supervision or Setup 2=Maximal Assistance 6=Modified [place] 3=Moderate Assistance 7=Complete [place] Therapy Quality Codes: 6 Independent with activity with or without an assistive device 5 Patient requires set up or clean up by helper. Patient completes activity by themselves 4 Supervision or touching assist (CGA). [place] provide cues , steadying assist 3 The helper provides less than half the effort to complete the activity 2 The helper provides more than half the effort to complete the activity 1 Dependent. The helper does all the effort to complete an activity 7 Patient refused to complete or attempt activity 9 The patient did not perform the activity before the current illness or injury 88 Not attempted due to Medical conditions or safety concerns Eating (QC): 6 On/Off Footwear (QC): 6 Toileting Hygiene (QC): 5 (SBA in stance.) Transfers (B, C, W/C) (FIM): 5 (SBA sit to stand to FWW) Other Treatment Pt utilizes FWW for ambulation to toilet, SBA during urination due to safety concerns. Pt stated UE/LE continue to be "stiff". Pt completes AROM on mat to increase functional ROM and comfort during ADL tasks. Pt completes fine motor coordination/ strengthening/ sequencing activity with rubber bands. Pt completes rubber band pattern on peg board with 100% accuracy from modeled picture. Pt demonstrates good motor control, returns to recliner chair. Pt educated on benefits of sitting up during the day. Pt states he is fatigued on this date and will likely go to bed after lunch. Pt left with call light in reach and all needs met. Education OT Patient Education: Correct positioning, Energy conservation, Exercise program, Home exercise program, Modified ADL techniques, Purpose of tx/function al activities, Safety issues Teaching Recipient: Patient Teaching Methods: Demonstration, Discussion Response to Teaching: Verbalize Understanding, Return Demonstration OT Short Term Goals Short Term Goals Upper Body Dressing(FIM): 6 (met) Lower Body Dressing(FIM): 3 (met) Transfers (B,C,W/C) (FIM): 5 (met- SBA) 1=Demonstrate adherence to instructed precautions during ADL tasks. 2=Patient will verbalize/demonstrate understanding of assistive devices/modifications for ADL. 3=Patient will improve strength/tolerance for activity to enable patient to perform ADL's. OT Fdc Goals Warehouse Distribution Specialist Goals Eating (FIM): 7 (met) Eating (QC): 6 (met) Groomin Oral Hygiene (QC): 6 Bathing(FIM): 6 Shower/Bathe Self (QC): 6 Upper Body Dressing(FIM): 6 (met) Upper Body Dressing (QC): 6 (met) Lower Body Dressing(FIM): 6 Lower Body Dressing (QC): 6 On/Off Footwear (QC): 6 (met) Toileting(FIM): 5 (met) Toileting Hygiene (QC): 6 Transfers (B,C,W/C) (FIM): 6 Toilet/Commode Transfer(FIM): 5 (met) Toilet/Commode Transfer (QC): 4 (met) Tub Transfer(FIM): 5 (met) Shower Transfer(FIM): 5 Additional Goals: 1-Demonstrate ADL Tasks, 2-Verbalize Understanding, 3- ImproveStrength/Jordy 1=Demonstrate adherence to instructed precautions during ADL tasks. 2=Patient will verbalize/demonstrate understanding of assistive devices/modific ations for ADL. 3=Patient will improve strength/tolerance for activity to enable patient to perform ADL's. OT Education/Plan Problem List/Assessment Assessment: Decreased Activ Tolerance, Decreased UE Strength, Impaired Coordination, Impaired I ADL's, Impaired Self-Care Skills Discharge Recommendations Plan/Recommendations: Continue POC Treatment Plan/Plan of Care Treatment,Training & Education: Yes Patient would benefit from OT for education, treatment and training to promote independence in ADL's, mobility, safety and/or upper extremity function for ADL's. Plan of Care: ADL Retraining, Caregiver Training, Cognitive Retraining, Functional Mobility, Group Exercise/Act as Ind, UE Funct Exercise/Act, UE Neuromus Re-Ed/Coord Treatment Duration: Jan 09, 2019 Frequency: 5 times per week Estimated Hrs Per Day: 1 hour per day (1-1.5 hours per day) Agreement: Yes Rehab Potential: Fair Time/GCodes Start Time: 10:30 Stop Time: 11:00 Total Time Billed (hr/min): 30 Billed Treatment Time 1 FA x2 (30) JOANA MENDOZA OTR Jan 23, 2019 15:16
[2019-01-23 18:00] VITALS: BP 108/64
--- NOTE | 2019-01-23 19:22 | NUR ---
ATIVAN GIVEN FOR C/O "ANXIETY...NEED SOME MEDICINE." PATIENT NOTED TO HAVE SLIGHT TREMORS AND RAPID BREATHING. PRESENCE PROVIDED AND BREATHING EXERCISES DEMONSTRATED AND RETURN. DENIES ANY FURTHER NEEDS AT THIS TIME. RN NOTIFIED.
[2019-01-23] MEDS: LORazepam 0.5 MG (ATIVAN) TABLET PO PRN (19:30)
[2019-01-23] MEDS: MONTELUKAST 10 MG (SINGULAIR) TAB PO SCH (20:15)
[2019-01-24 05:00] VITALS: BP 157/73
[2019-01-24] MEDS: FOLIC ACID 1 MG TAB PO SCH (05:58)
[2019-01-24] MEDS: MULTIVIT W/MINERALS TAB (THERAGRAN M) PO SCH (05:58)
--- NOTE | 2019-01-24 08:33 | PM&R Progress Note ---
Subjective HPI/CC On Admission Date Seen by Provider: Jan 24, 2019 Time Seen by Provider: 07:00 CC: Debility from alcoholism and altered mental status HPI: This is a 73yoWM who was admitted nearly a week ago of Dr. Macias's who presented with altered mental status found to have significant alcohol withdrawal of which his was unaware that he was drinking alcohol but he was provided supportive care and subsequently has become quite debilitated overall. Smoking cessation has been counseled along with alcohol cessation. 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 He does report that he is needing to cut down on his alcohol. At this current time pt denies any significant pain, me ds were reviewed, and will be continued on inpatient rehab. He has become incontinent and is need of further recovery before DC is planned. HPI per ELMER Martinez Sebastien Toledo is a 73-year-old male with past medical history of hypertension, coronary artery disease, GERD, and ETOH abuse who was recently admitted for AMS; his hospital stay was complicated by alcohol withdrawal. 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 CVA was suspected but ruled out via CT and clinical picture which was more consistent with ETOH withdrawal rather than CT. No MRI was done. Alcohol abuse was managed via activating CIWA protocol, giving thiamine and Folic acid. Pt was recently diagnosed with Paroxysmal Afib and was followed by Cardiology who ordered an Echo and started him on Eliquis. Pt's last stay also involved Macrocytic anemia which required transfusions and continued tx with folic acid. After pt was stabilized he was transitioned to inpatient rehabilitation on 01/08/19. I was consult for evaluation of restless leg symptoms. Patient reports last couple of evenings beginning shortly after getting into bed he will develop uncomfortable sensation in his legs that is only alleviated by moving them. He's had this in the past and I have not prescribed medication for him but his had either Mirapex her ropinirole he has taken her medication with release of his symptoms. He does have anemia with a low folate level that is macrocytic that with a history of esophagitis poor nutritional status from alcoholism iron deficiency is highly likely as well. He denies melena or bright red blood per rectum and denies abdominal pain. He is back to baseline mental status after being admitted with altered mental status and delirium. This is likely due to alcohol withdrawal. Subjective/Events-last exam No major issues Will complete Keflex Disposition pending, needs a custodial but it appears he wants to try home with HH Fall risk prevention is the priority Overall feels much stronger half-way alcoholism really caused most of his clinical problems No pain is reported Conferred with RN. Reviewed therapy notes. Checked meds and labs. Review of Systems Neurological: Weakness, Incoordination Objective Exam Vital Signs Vital Signs Date Time Temp Pulse Resp B/P (MAP) Pulse Ox O2 Delivery O2 Flow Rate FiO2 01/24/19 19:23 Room Air 01/24/19 17:11 37.0 79 20 124/68 (86) 96 Capillary Refill : General Appearance: No Apparent Distress, WD/WN, Chronically ill HEENT: PERRL/EOMI, Normal ENT Inspection, Pharynx Normal, Moist Mucous Membranes Neck: Full Range of Motion, Normal Inspection, Non Tender, Supple Respiratory: Chest Non Tender, Lungs Clear, Normal Breath Sounds, No Accessory Muscle Use, No Respiratory Distress Cardiovascular: Regular Rate, Rhythm, No Edema, No Gallop, No JVD, No Murmur Gastrointestinal: Normal Bowel Sounds, No Organomegaly, No Pulsatile Mass, Non Tender, Soft Back: Normal Inspection, No CVA Tenderness, No Vertebral Tenderness Extremity: Normal Capillary Refill, Normal Inspection, Normal Range of Motion, Non Tender, No Calf Tenderness, No Pedal Edema Neurologic/Psychiatric: Alert, Oriented x3, No Motor/Sensory Deficits, Normal Mood/Affect, Disoriented Skin: Normal Color, Warm/Dry Lymphatic: No Adenopathy Results/Procedures Lab Patient resulted labs reviewed. FIM Transfers Therapy Code Descriptions/Definitions Functional [place] Measure: 0=Not Assessed/NA 4=Minimal Assistance 1=Total Assistance 5=Supervision or Setup 2=Maximal Assistance 6=Modified [place] 3=Moderate Assistance 7=Complete [place] Therapy Quality Codes: 6 Independent with activity with or without an assistive device 5 Patient requires set up or clean up by helper. Patient completes activity by themselves 4 Supervision or touching assist (CGA). [place] provide cues , steadying assist 3 The helper provides less than half the effort to complete the activity 2 The helper provides more than half the effort to complete the activity 1 Dependent. The helper does all the effort to complete an activity 7 Patient refused to complete or attempt activity 9 The patient did not perform the activity before the current illness or injury 88 Not attempted due to Medical conditions or safety concerns Transfers (B, C, W/C) (FIM): 5 (SBA sit to stand to FWW) Scootin Rollin Roll Left to Right (QC): 6 Supine to/from Sit: 5 Sit to/from Stand: 5 Sit to Lying (QC): 5 Sit to Stand (QC): 5 Chair/Amw-nf-Stymr Xfer(QC): 6 Bed to/from Chair: 6 Car Transfer (QC): 6 Gait Training Does the Patient Walk?: Yes Gait (FIM): 5 Distance (FIM): 3=150 ft Distance: 175' Walk 10 feet (QC): 5 Walk 50 ft with 2 Turns(QC): 5 Walk 150 ft (QC): 5 Walking 10ft/uneven surface-QC: 5 Gait Level of Assist: 5 Gait Persons Needed: 1 Gait Assistive Device: FWW Wheelchair Training Does the Pt Use a Wheelchair?: No Stair Training Stair Training: Handrails/: 2 handrails Stairs (FIM): 2 #of Steps: 4 1 Step (curb) (QC): 4 4 Steps (QC): 4 12 Steps (QC): 9 Stairs: Pattern: Step to Level of Assist: 4 Mental Status/Objective Comprehension: 7 Expression: 7 Social Interaction: 7 Problem Solvin Memory: 7 ADL-Treatment Feedin (eats with modified built-up handles.Pt compeltes kitchen management with good safety awareness and minimal cues for positioning of FWW. Pt able to pour coffee with good motor control. Transports coffee on tray on FWW.) Eating (QC): 6 Groomin (Pt completes hand hygiene at sink with SBA due to safety.) Oral Hygiene (QC): 4 (SBA at sink) Bathin (SBA during stance. Pt utilizes shower bench within the shower, able to wash all areas without use of AE. ) Shower/Bathe Self (QC): 4 (SBA in stance.) Upper Extremity Dressin (Gathered clothing items. Completed dressing tasks in chair.) Upper Body Dressing (QC): 6 Lower Extremity Dressin (Pt utilizes victim advocate without cues to gather clothing from floor, pt completes LB dressing EOB ) Lower Body Dressing (QC): 6 On/Off Footwear (QC): 6 Toiletin (SBA for stance during urination) Toileting Hygiene (QC): 5 (SBA in stance.) Toilet/Commode Transfer: 5 (SBA, use of commode) Toilet Transfer (QC): 4 (SBA ) Tub: 5 (SBA. Pt utilizes FWW to back up to shower seat, holds onto grab bars to lower. Good safety awareness and motor control.) Shower: 5 (SBA) Assessment/Plan Assessment and Plan Assess & Plan/Chief Complaint Plan: IRF protocol Supportive care Delirium monitoring ETOH cessation Hold laxatives until needed RLS per PCP consultation Nebs to maintain when necessary Ativan as needed Monitor urinary system Eliquis and aspirin restarted per cardiology Monitor falls UTI acute placed on Rocephin empirically now discontinued and started on Keflex due to pansensitive Escherichia coli Needs custodial placement but may want to try home with HH Continued and major fall risk (1) Debility Status: Acute (2) Hypokalemia Status: Acute (3) Folate deficiency Status: Acute (4) Pancytopenia Status: Acute (5) Interstitial lung disease Status: Chronic (6) Weight loss, unintentional Status: Chronic (7) CAD (coronary artery disease) Status: Chronic Qualifiers: Coronary Disease-Associated Artery/Lesion type: [place] artery [place] vs. transplanted heart: [place] heart Associated angina: without angina Qualified Codes: I25.10 - Atherosclerotic heart disease of [place] coronary artery without angina pectoris (8) HTN (hypertension) Status: Chronic Qualifiers: Hypertension type: essential hypertension Qualified Codes: I10 - Essential (primary) hypertension (9) Nausea & vomiting Status: Acute Qualifiers: Vomiting type: unspecified (10) Atrial fibrillation with rapid ventricular response Status: Acute (11) Hypomagnesemia Status: Acute (12) Vertebral artery occlusion Status: Chronic Qualifiers: Laterality: unspecified laterality Qualified Codes: I65.09 - Occlusion and stenosis of unspecified vertebral artery (13) Aphasia Status: Acute (14) Altered mental status Status: Resolved Resolution Date/Time: 01/07/19 @ 11:56 (15) Alcohol dependence Status: Resolved Resolution Date/Time: 01/07/19 @ 11:56 Qualifiers: 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
--- NOTE | 2019-01-24 09:29 | Progress Note ---
CONRADO PAKRER MED STUDENT 01/24/19 0929: Subjective Date Seen by a Provider: Jan 24, 2019 Time Seen by a Provider: 09:24 Subjective/Events-last exam Since I last saw him, Mr. Toledo has continued to make progress with PT and OT, they are planning on evaluating wether he can go home. He is going to try cooking an egg tomorrow morning, and is discussing with PT/OT wether he can get a tray for his walker, and if he can get a hand-held shower head, as well as if he can get up in the morning with his in case he needs assistance, and if he has friends or family that could visit him during the day if he needs anything. Biggest concern from PT is his easy fatigue. Nurses report he took an ativan for anxiety yesterday, after presenting with rapid breathing and tremor. He still needs 'stand by' assist at times, and there are some concerns about his coordination and reflexes. He still has some confusion, nurses report that at night he will wake up at night anxious and press the call button, and then not remember what he needed. I saw him today while TECHNICAL TRAINING MANAGER was there, she informed me of the plans for cooking tomorrow and home accommodations. Patient told me he feels much improved, wants to go home, and feels he is able to take care of his ADLs. Objective Exam Last Set of Vital Signs Vital Signs Date Time Temp Pulse Resp B/P (MAP) Pulse Ox O2 Delivery O2 Flow Rate FiO2 01/24/19 09:15 96 Room Air 01/24/19 05:00 36.9 82 20 157/73 (101) Capillary Refill : I&O Intake and Output 01/24/19 00:00 Intake Total 1670 ml Balance 1670 ml Intake Oral 1670 ml # Voids 9 Results Lab Microbiology 01/19/19 Urine Culture - Final, Complete Escherichia coli Clinical Quality Measures DVT/VTE Risk/Contraindication: Risk Factor Score Per Nursin RFS Level Per Nursing on Admit: 4+=Very High CITLALI ABAD DO 01/24/19 2018: Assessment/Plan Assessment/Plan Assess & Plan/Chief Complaint Debility Diagnosis/Problems Diagnosis/Problems (1) Fall Status: Acute Qualifiers: Qualified Codes: W19.XXXD - Unspecified fall, subsequent encounter Supervisory-Addendum Brief Verification & Attestation Participated in pt care: history, MDM, physical Personally performed: exam, history, MDM, supervision of care Care discussed with: Medical Student Procedures: n/a Results interpretation: Verified all documentation Verification and Attestation of Medical Student E/M Service A medical student performed and documented this service in my presence. I reviewed and verified all information documented by the medical student and made modifications to such information, when appropriate. I personally performed the physical exam and medical decision making. Citlali Abad, Jan 24, 2019,20:18 CONRADO PARKER MED STUDENT Jan 24, 2019 09:29 CITLALI ABAD DO Jan 24, 2019 20:18
--- NOTE | 2019-01-24 09:56 | Occupational Ther Daily Note ---
OT Current Status-Daily Note Subjective Pt seen in bed, no pain noted. Pt agreeable to OT tx session. Mental Status/Objective Therapy Code Descriptions/Definitions Functional [place] Measure: 0=Not Assessed/NA 4=Minimal Assistance 1=Total Assistance 5=Supervision or Setup 2=Maximal Assistance 6=Modified [place] 3=Moderate Assistance 7=Complete [place] ADL-Treatment Therapy Code Descriptions/Definitions Functional [place] Measure: 0=Not Assessed/NA 4=Minimal Assistance 1=Total Assistance 5=Supervision or Setup 2=Maximal Assistance 6=Modified [place] 3=Moderate Assistance 7=Complete [place] Therapy Quality Codes: 6 Independent with activity with or without an assistive device 5 Patient requires set up or clean up by helper. Patient completes activity by themselves 4 Supervision or touching assist (CGA). [place] provide cues , steadying assist 3 The helper provides less than half the effort to complete the activity 2 The helper provides more than half the effort to complete the activity 1 Dependent. The helper does all the effort to complete an activity 7 Patient refused to complete or attempt activity 9 The patient did not perform the activity before the current illness or injury 88 Not attempted due to Medical conditions or safety concerns Eating (FIM): 5 (Pt requires assist with opening tea bottle due to decreased power generation equipment repairer strength. Pt able to complete opening with L hand once started.) Eating (QC): 5 (s/u to open bottle) Lower Body Dressing (FIM): 6 Lower Body Dressing (QC): 6 (SUP at EOB) On/Off Footwear (QC): 6 Other Treatment Pt ambulates to therapy kitchen with FWW, one instance of pt reporting "popping" of knee; pt states stiffness on this date of UE/LE. Pt describes home kitchen with pots/ pans below waist height and plates, cups, and utensils within reach near counter. Pt educated on kitchen safety, thinking ahead in order to have assist in laying out kitchen items needed prior to start of day due to being at work through day. Pt completes list of items required to make eggs for breakfast that would not be within reach. Pt completes with min cues for 1/3 items needed. Pt completes kitchen mobility with items set out, able to ambulate with safety with minimal cues necessary to maintain safety. Pt completes UB stretching activity to increase ROM and comfort during daily tasks. Pt utilizes BUE to complete shoulder flexion exercises x15 (2 sets) to tolerable level with weighted bar. Pt completes eye-hand coordination/ reaction task edge of mat; pt utilizes weighted bar to bat ball back and forth with good accuracy and coordination. Pt is active for ~2 minutes before request for break due to UE fatigue. Pt returns to bed, call light in reach, safety measures in place, all needs met. Education OT Patient Education: Correct positioning, Energy conservation, Modified ADL techniques, Purpose of tx/functional activities, Rehab process, Safety issues Teaching Recipient: Patient Teaching Methods: Demonstration, Discussion Response to Teaching: Verbalize Understanding, Return Demonstration OT Short Term Goals Short Term Goals Upper Body Dressing(FIM): 6 (met) Lower Body Dressing(FIM): 3 (met) Transfers (B,C,W/C) (FIM): 5 (met- SBA) 1=Demonstrate adherence to instructed precautions during ADL tasks. 2=Patient will verbalize/demonstrate understanding of assistive devices /modifications for ADL. 3=Patient will improve strength/tolerance for activity to enable patient to perform ADL's. OT Penitentiary Goals Air Pollution Analyst Goals Eating (FIM): 7 (met) Eating (QC): 6 (met) Groomin Oral Hygiene (QC): 6 Bathing(FIM): 6 Shower/Bathe Self (QC): 6 Upper Body Dressing(FIM): 6 (met) Upper Body Dressing (QC): 6 (met) Lower Body Dressing(FIM): 6 Lower Body Dressing (QC): 6 On/Off Footwear (QC): 6 (met) Toileting(FIM): 5 (met) Toileting Hygiene (QC): 6 Transfers (B,C,W/C) (FIM): 6 Toilet/Commode Transfer(FIM): 5 (met) Toilet/Commode Transfer (QC): 4 (met) Tub Transfer(FIM): 5 (met) Shower Transfer(FIM): 5 Additional Goals: 1-Demonstrate ADL Tasks, 2-Verbalize Understanding, 3-ImproveStrength/Jordy 1=Demonstrate adherence to instructed precautions during ADL tasks. 2=Patient will verbalize/demonstrate understanding of assistive devices/modifications for ADL. 3=Patient will improve strength/tolerance for activity to enable patient to perform ADL's. OT Education/Plan Problem List/Assessment Assessment: Decreased Activ Tolerance, Decreased UE Strength, Impaired Coordination, Impaired I ADL's, Impaired Self-Care Skills Discharge Recommendations Plan/Recommendations: Continue POC Therapy Discharge Recommendati: Intermittent Supervision Equpiment Recommendations-D/C: Rails on Tub/Shower, Extended Shower Sprayer, [place] Machine Operator, Walker Bag or Basket (tray for food transport), Rails on Toilet Treatment Plan/Plan of Care Treatment,Training & Education: Yes Patient would benefit from OT for education, treatment and training to promote independence in ADL's, mobility, safety and/or upper extremity function for ADL's. Plan of Care: ADL Retraining, Caregiver Training, Cognitive Retraining, Functional Mobility, Group Exercise/Act as Ind, UE Funct Exercise/Act, UE Neuromus Re-Ed/Coord Treatment Duration: Jan 09, 2019 Frequency: 5 times per week Estimated Hrs Per Day: 1 hour per day (1-1.5 hours per day) Agreement: Yes Rehab Potential: Fair Time/GCodes Start Time: 08:00 Stop Time: 09:00 Total Time Billed (hr/min): 60 Billed Treatment Time 1, EX x2 (30), FA x2 (30) total 60 JOANA MENDOZA OTR Jan 24, 2019 09:56
[2019-01-24] MEDS: LOSARTAN 100 MG (COZAAR) TABLET PO SCH (10:12)
[2019-01-24] MEDS: FUROSEMIDE 40 MG (LASIX) TAB PO SCH (10:13)
[2019-01-24] MEDS: amLODIPine 5 MG (NORVASC) TAB PO SCH (10:13)
[2019-01-24] MEDS: CEPHALEXIN 250 MG (KEFLEX) CAP PO SCH ×4 (10:13→20:05)
[2019-01-24] MEDS: ASPIRIN 81 MG CHEW (CHILDREN'S ASA) PO SCH (10:13)
[2019-01-24] MEDS: LORATADINE (CLARITIN) 10 MG TAB PO SCH (10:13)
[2019-01-24] MEDS: PANTOPRAZOLE 20 MG TABLET (PROTONIX) PO SCH (10:13)
[2019-01-24] MEDS: KCL 10 MEQ TAB (MICRO K) PO SCH (10:13)
[2019-01-24] MEDS: APIXABAN 2.5 MG (ELIQUIS) TABLET PO SCH ×2 (10:14→20:04)
[2019-01-24] MEDS: SENNA W/DOCUSATE (SENOKOT S) TABLET PO PRN (10:14)
[2019-01-24] MEDS: meTOprolol SUCCINATE 100 MG (TOPROL XL) TAB PO SCH ×2 (10:14→20:05)
--- NOTE | 2019-01-24 11:05 | Physical Therapy Daily Note ---
PT Daily Note-Current Subjective Pt sitting up in bed upon arrival. Pt reports feeling more like himself. Pt agrees to PT. Pain Location: No Pain Reported Mental Status Patient Orientation: Person, Place, Situation Transfers Therapy Quality Codes: 6 Independent with activity with or without an assistive device 5 Patient requires set up or clean up by helper. Patient completes activity by themselves 4 Supervision or touching assist (CGA). [place] provide cues , steadying assist 3 The helper provides less than half the effort to complete the activity 2 The helper provides more than half the effort to complete the activity 1 Dependent. The helper does all the effort to complete an activity 7 Patient refused to complete or attempt activity 9 The patient did not perform the activity before the current illness or inj ury 88 Not attempted due to Medical conditions or safety concerns Roll Left to Right (QC): 5 Sit to Lying (QC): 5 Sit to Stand (QC): 5 Weight Bearing Right Lower Extremity: Right Weight Bearing/Tolerated Left Lower Extremity: Left Weight Bearing/Tolerated Gait Training Does the Patient Walk?: Yes Gait: 5 Distance: 175' Walk 10 feet (QC): 5 Walk 50 ft with 2 Turns(QC): 5 Walk 150 ft (QC): 5 Gait Persons Needed: 5 Gait Assistive Device: FWW Pt walks with slow yuliana and stiff posture especially in LE. Wheelchair Training Does the Pt Use a Wheelchair?: No Exercises Seated Therapy Exercises: Ankle pumps, Long arc quads, Hip flexion, Kicking activity Seated Reps: 15 NuStep Minutes: 15 NuStep Workload: 4 Treatments Pt transfers from bed to standing, gets light headed. Pt ambulates in hallway then uses NuStep for 15m at WL 4. After short RB, pt ambulates in hallway resting at EOB. Pt completes Seated EX at EOB with RB. Pt transfers back to Supine in bed at end of tx with all needs met, call light in hand. Assessment Current Status: Fair Progress Pt demonstrates fatigue quicker today than previous tx. Pt is shaky both UE & LE by end of tx but reports feeling okay other than stiff with movement. PT Prison Goals Prison Goals PT Prison Goals Time Frame: Feb 03, 2019 Sit to Lying (QC): 6 Lying-Sitting on Side/Bed(QC): 6 Sit to Stand (QC): 6 Roll Left to Right (QC): 6 Chair/Vmb-ao-Vxbzo Xfer(QC): 6 Car Transfer (QC): 6 Does the Patient Walk: Yes Distance: 250' Walk 10 feet (QC): 6 Walk 10ft-Uneven Surface(QC): 6 Walk 50ft with 2 Turns (QC): 6 Walk 150 ft (QC): 6 Gait Level of Assist: 6 Gait Assistive Device: FWW # of Steps: 4 1 Step (curb) (QC): 6 4 Steps (QC): 6 12 Steps (QC): 9 Stairs Level Of Assist: 6 Picking up an Object (QC): 6 PT Plan Problem List Problem List: Activity Tolerance, Functional Strength, Safety, Balance, Gait Treatment/Plan Treatment Plan: Continue Plan of Care Treatment Plan: Bed Mobility, Education, Functional Activity Jordy, Functional Strength, Group Therapy, Gait, Safety, Therapeutic Exercise, Transfers Treatment Duration: Feb 03, 2019 Frequency: At least 5 of 7 days/Wk (IRF) Estimated Hrs Per Day: 1.5 hours per day Patient and/or Family Agrees t: Yes Safety Risks/Education Patient Education: Gait Training, Transfer Techniques, Correct Positioning, Safety Issues Teaching Recipient: Patient Teaching Methods: Discussion Response to Teaching: Verbalize Understanding Time/GCodes Time In: 900 Time Out: 1000 Total Billed Treatment Time: 60 Total Billed Treatment 1, FA (15m), GT (15m) & EX x2 (30m) MELLISSA RANGEL PTA Jan 24, 2019 11:05
--- NOTE | 2019-01-24 11:35 | Occupational Ther Daily Note ---
OT Current Status-Daily Note Subjective Pt seen in bed, pt agreeable to OT tx session. No pain. Mental Status/Objective Therapy Code Descriptions/Definitions Functional [place] Measure: 0=Not Assessed/NA 4=Minimal Assistance 1=Total Assistance 5=Supervision or Setup 2=Maximal Assistance 6=Modified [place] 3=Moderate Assistance 7=Complete [place] ADL-Treatment Therapy Code Descriptions/Definitions Functional [place] Measure: 0=Not Assessed/NA 4=Minimal Assistance 1=Total Assistance 5=Supervision or Setup 2=Maximal Assistance 6=Modified [place] 3=Moderate Assistance 7=Complete [place] Therapy Quality Codes: 6 Independent with activity with or without an assistive device 5 Patient requires set up or clean up by helper. Patient completes activity by themselves 4 Supervision or touching assist (CGA). [place] provide cues , steadying assist 3 The helper provides less than half the effort to complete the activity 2 The helper provides more than half the effort to complete the activity 1 Dependent. The helper does all the effort to complete an activity 7 Patient refused to complete or attempt activity 9 The patient did not perform the activity before the current illness or injury 88 Not attempted due to Medical conditions or safety concerns Eating (FIM): 7 Eating (QC): 6 Grooming (FIM): 6 (completes hair grooming at sink wit FWW) Toileting (FIM): 5 (SUP during stance at FWW/ grab bars.) Toileting Hygiene (QC): 5 (SUP) Transfers (B, C, W/C) (FIM): 5 (SBA: pt sit to stand from 16" toilet to FWW; pt able to complete 2x with SBA with use of grab bar to R and toilet seat) Toilet/Commode Transfer (FIM): 5 Toilet Transfer (QC): 5 (SBA) Other Treatment Pt and OT discussed home environment, upon questioning pt states he is slightly nervous to go home; pt states it is "because of everything." Pt agrees he desires more confidence in his abilities. Education of safety concerns- disuse of throw rugs, use of stave machine tender for gathering items, keeping phone on pt, and pt does not plan to drive "anytime soon." Pt states he plans to place grab bars within shower and beside/ in front of toilet. Pt educated on 16" toilet height within room, as pt states his toilet at home is 16". Pt states, "That seems really low." Pt reaches for phone to call immediately following, knocks coffee over in attempt, hands hold on to phone with good control, R hand unable to press buttons with good control, pt fumbles with phone and it falls to his chest. Pt calls and states he would like to know height of toilet. Pt completes toilet transfer 2x with SBA with use of grab bar and toilet seat to push up. Pt agrees he is able to complete task at home. Pt completes hand exercises in recliner chair with sponge, good motor control. Pt educated on energy conservation measures. Pt states desire to use restroom, sit to stand SUP, completes toileting with proper placement of walker and good safety measures. Pt returns to bed, states he may fall asleep. Pt left with call light in reach, all needs met, safety measures met. Education OT Patient Education: Correct positioning, Energy conservation, Exercise program, Home exercise program, Modified ADL techniques, Purpose of tx/functional activities, Rehab process, Safety issues, Transfer techniques Teaching Recipient: Patient Teaching Methods: Demonstration, Discussion Response to Teaching: Verbalize Understanding, Return Demonstration OT Short Term Goals Short Term Goals Upper Body Dressing(FIM): 6 (met) Lower Body Dressing(FIM): 3 (met) Transfers (B,C,W/C) (FIM): 5 (met- SBA) 1=Demonstrate adherence to instructed precautions during ADL tasks. 2=Patient will verbalize/demonstrate understanding of assistive devices/modifications for ADL. 3=Patient will improve strength/tolerance for activity to enable patient to perform ADL's. OT Alto Singer Goals Alto Singer Goals Eating (FIM): 7 (met) Eating (QC): 6 (met) Groomin Oral Hygiene (QC): 6 Bathing(FIM): 6 Shower/Bathe Self (QC): 6 Upper Body Dressing(FIM): 6 (met) Upper Body Dressing (QC): 6 (met) Lower Body Dressing(FIM): 6 Lower Body Dressing (QC): 6 On/Off Footwear (QC): 6 (met) Toileting(FIM): 5 (met) Toileting Hygiene (QC): 6 Transfers (B,C,W/C) (FIM): 6 Toilet/Commode Transfer(FIM): 5 (met) Toilet/Commode Transfer (QC): 4 (met) Tub Transfer(FIM): 5 (met) Shower Transfer(FIM): 5 Additional Goals: 1-Demonstrate ADL Tasks, 2-Verbalize Understanding, 3- ImproveStrength/Jordy 1=Demonstrate adherence to instructed precautions during ADL tasks. 2=Patient will verbalize/demonstrate understanding of assistive devices/modifications for ADL. 3=Patient will improve strength/tolerance for activity to enable patient to perform ADL's. OT Education/Plan Problem List/Assessment Assessment: Decreased Activ Tolerance, Decreased UE Strength, Impaired Coordination, Impaired I ADL's, Impaired Self-Care Skills Discharge Recommendations Plan/Recommendations: Continue POC Therapy Discharge Recommendati: Intermittent Supervision Treatment Plan/Plan of Care Treatment,Training & Education: Yes Patient would benefit from OT for education, treatment and training to promote independence in ADL's, mobility, safety and/or upper extremity function for ADL's. Plan of Care: ADL Retraining, Caregiver Training, Cognitive Retraining, Functional Mobility, Group Exercise/Act as Ind, UE Funct Exercise/Act, UE Neuromus Re-Ed/Coord Treatment Duration: Jan 09, 2019 Frequency: 5 times per week Estimated Hrs Per Day: 1 hour per day (1-1.5 hours per day) Agreement: Yes Rehab Potential: Fair Time/GCodes Start Time: 10:30 Stop Time: 11:10 Total Time Billed (hr/min): 40 Billed Treatment Time 1, ADL 2 (25), EX (20) total 40 JOANA MENDOZA OTR Jan 24, 2019 11:34
--- NOTE | 2019-01-24 14:39 | Physical Therapy Daily Note ---
PT Daily Note-Current Subjective Pt sitting up in bed upon arrival. Pt had just finished with OT. Sp is present. Pt agrees to PT but both Sp & Pt voice anxiety about D/C. Pain Location: No Pain Reported Mental Status Patient Orientation: Person, Place, Situation Transfers Therapy Quality Codes: 6 Independent with activity with or without an assistive device 5 Patient requires set up or clean up by helper. Patient completes activity by themselves 4 Supervision or touching assist (CGA). [place] provide cues , steadying assist 3 The helper provides less than half the effort to complete the activity 2 The helper provides more than half the effort to complete the activity 1 Dependent. The helper does all the effort to complete an activity 7 Patient refused to complete or attempt activity 9 The patient did not perform the activity before the current illness or injury 88 Not attempted due to Medical conditions or safety concerns Roll Left to Right (QC): 5 Sit to Lying (QC): 5 Sit to Stand (QC): 5 Chair/Kxe-za-Vqhpe Xfer(QC): 5 Bed to/from Chair: 5 Car Transfer (QC): 5 Weight Bearing Right Lower Extremity: Right Weight Bearing/Tolerated Left Lower Extremity: Left Weight Bearing/Tolerated Gait Training Does the Patient Walk?: Yes Gait: 5 Distance: 150' Walk 10 feet (QC): 5 Walk 50 ft with 2 Turns(QC): 5 Walk 150 ft (QC): 5 Gait Persons Needed: 1 Gait Assistive Device: FWW Wheelchair Training Does the Pt Use a Wheelchair?: No Treatments MERCHANDISE WORKER discusses with pt & sp about equipment needed for home, placement of grab bars in bath room, anxiety over D/C and family training if needed. Pt transfers to standing and ambulates in hallway. Pt completes car transfer with Sp present and included during tx. Pt returns to bed at end of tx to rest Supine with all needs met, call light in hand. Assessment Current Status: Fair Progress Pt demonstrates anxiety during tx, performance of tasks decreases when Sp is present. MERCHANDISE WORKER is unsure of living situation. PT Reinforcing Bar Setter Goals Reinforcing Bar Setter Goals PT Fdc Goals Time Frame: Feb 03, 2019 Sit to Lying (QC): 6 Lying-Sitting on Side/Bed(QC): 6 Sit to Stand (QC): 6 Roll Left to Right (QC): 6 Chair/Wzl-nj-Oflwk Xfer(QC): 6 Car Transfer (QC): 6 Does the Patient Walk: Yes Distance: 250' Walk 10 feet (QC): 6 Walk 10ft-Uneven Surface(QC): 6 Walk 50ft with 2 Turns (QC): 6 Walk 150 ft (QC): 6 Gait Level of Assist: 6 Gait Assistive Device: FWW # of Steps: 4 1 Step (curb) (QC): 6 4 Steps (QC): 6 12 Steps (QC): 9 Stairs Level Of Assist: 6 Picking up an Object (QC): 6 PT Plan Problem List Problem List: Activity Tolerance, Functional Strength, Safety Treatment/Plan Treatment Plan: Continue Plan of Care Treatment Plan: Bed Mobility, Education, Functional Activity Jordy, Functional Strength, Group Therapy, Gait, Safety, Therapeutic Exercise, Transfers Treatment Duration: Feb 03, 2019 Frequency: At least 5 of 7 days/Wk (IRF) Estimated Hrs Per Day: 1.5 hours per day Patient and/or Family Agrees t: Yes Safety Risks/Education Patient Education: Gait Training, Transfer Techniques, Correct Positioning, Safety Issues Teaching Recipient: Patient Teaching Methods: Discussion Response to Teaching: Verbalize Understanding Time/GCodes Time In: 1330 Time Out: 1400 Total Billed Treatment Time: 30 Total Billed Treatment 1, GT (10m) & FA (20m) MELLISSA RANGEL MERCHANDISE WORKER Jan 24, 2019 14:39
--- NOTE | 2019-01-24 15:46 | NUR ---
Weekly team conference Met with the patient and his regarding weekly team conference. The patient's is hesitant for patient to return home immediately due to safety concerns and the need to install grab bars in the shower and obtain/install a handheld shower hose per therapy recommendations. Patient has also verbalized concern to therapy staff regarding discharging home and being alone while his is at work. Discharge options were discussed including discharge home with HHC, discharge home with private-duty caregivers, discharge to SNF. After discussing all options, the patient and his have agreed to SNF discharge. Their preferred facility is [facility]. Discharge date is set for 01/26/19. Both the patient and his verbalize understanding of discharge date and discharge destination.
[2019-01-24 17:11] VITALS: BP 124/68
--- NOTE | 2019-01-24 17:12 | NUR ---
Referral made to Brittney Daniels per patient and patient's request.
[2019-01-24] MEDS: MONTELUKAST 10 MG (SINGULAIR) TAB PO SCH (20:04)
[2019-01-25 05:04] VITALS: BP 153/79
[2019-01-25] MEDS: FOLIC ACID 1 MG TAB PO SCH (06:15)
[2019-01-25] MEDS: MULTIVIT W/MINERALS TAB (THERAGRAN M) PO SCH (06:15)
--- NOTE | 2019-01-25 08:48 | PM&R Progress Note ---
Subjective HPI/CC On Admission Date Seen by Provider: Jan 25, 2019 Time Seen by Provider: 08:30 CC: Debility from alcoholism and altered mental status HPI: This is a 73yoWM who was admitted nearly a week ago of Dr. Macias's who presented with altered mental status found to have significant alcohol withdrawal of which his was unaware that he was drinking alcohol but he was provided supportive care and subsequently has become quite debilitated overall. Smoking cessation has been counseled along with alcohol cessation. He is a retired [employer] for 35 years in [place]. He does report that he is needing to cut down on his alcohol. At this current time pt denies any significant pain, meds were reviewed, and will be continued on inpatient rehab. He has become incontinent and is need of further recovery before DC is planned. HPI per ELMER Martinez Sebastien Toledo is a 73-year-old male with past medical history of hypertension, coronary artery disease, GERD, and ETOH abuse who was recently admitted for AMS; his hospital stay was complicated by alcohol withdrawal. 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 CVA was suspected but ruled out via CT and clinical picture which was more consistent with ETOH withdrawal rather than CT. No MRI was done. Alcohol abuse was managed via activating CIWA protocol, giving thiamine and Folic acid. Pt was recently diagnosed with Paroxysmal Afib and was followed by Cardiology who ordered an Echo and started him on Eliquis. Pt's last stay also involved Macrocytic anemia which required transfusions and continued tx with folic acid. After pt was stabilized he was transitioned to inpatient rehabilitation on 01/08/19. I was consult for evaluation of restless leg symptoms. Patient reports last couple of evenings beginning shortly after getting into bed he will develop uncomfortable sensation in his legs that is only alleviated by moving them. He's had this in the past and I have not prescribed medication for him but his had either Mirapex her ropinirole he has taken her medication with release of his symptoms. He does have anemia with a low folate level that is macrocytic that with a history of esophagitis poor nutritional status from alcoholism iron deficiency is highly likely as well. He denies melena or bright red blood per rectum and denies abdominal pain. He is back to baseline mental status after be ing admitted with altered mental status and delirium. This is likely due to alcohol withdrawal. Subjective/Events-last exam Discharge is planned tomorrow for skilled nursing, [facility] [place]. Insomnia nightmares last night. Bowels are moving well. No urinary issues. Will complete Keflex prior to discharge to the skilled nursing so he will be done with antibiotics at time of discharge. shelter alcoholism really caused most of his clinical problems No pain is reported Conferred with RN. Reviewed therapy notes. Checked meds and labs. Review of Systems General: Fatigue Focused Exam Lactate Level 01/25/19 19:00: Lactic Acid Level 0.94 Objective Exam Vital Signs Vital Signs Date Time Temp Pulse Resp B/P (MAP) Pulse Ox O2 Delivery O2 Flow Rate FiO2 01/26/19 06:10 36.6 01/26/19 05:08 98 20 145/79 (101) 95 Room Air Capillary Refill : General Appearance: No Apparent Distress, WD/WN, Chronically ill HEENT: PERRL/EOMI, Normal ENT Inspection, Pharynx Normal, Moist Mucous Membranes Neck: Full Range of Motion, Normal Inspection, Non Tender, Supple Respiratory: Chest Non Tender, Lungs Clear, Normal Breath Sounds, No Accessory Muscle Use, No Respiratory Distress Cardiovascular: Regular Rate, Rhythm, No Edema, No Gallop, No JVD, No Murmur Gastrointestinal: Normal Bowel Sounds, No Organomegaly, No Pulsatile Mass, Non Tender, Soft Back: Normal Inspection, No CVA Tenderness, No Vertebral Tenderness Extremity: Normal Capillary Refill, Normal Inspection, Normal Range of Motion, Non Tender, No Calf Tenderness, No Pedal Edema Neurologic/Psychiatric: Alert, Oriented x3, No Motor/Sensory Deficits, Normal Mood/Affect, Disoriented Skin: Normal Color, Warm/Dry Lymphatic: No Adenopathy Results/Procedures Lab Laboratory Tests 01/25/19 19:00 01/26/19 05:23 Patient resulted labs reviewed. FIM Transfers Therapy Code Descriptions/Definitions Functional [place] Measure: 0=Not Assessed/NA 4=Minimal Assistance 1=Total Assistance 5=Supervision or Setup 2=Maximal Assistance 6=Modified [place] 3=Moderate Assistance 7=Complete [place] Therapy Quality Codes: 6 Independent with activity with or without an assistive device 5 Patient requires set up or clean up by helper. Patient completes activity by themselves 4 Supervision or touching assist (CGA). [place] provide cues , steadying a ssist 3 The helper provides less than half the effort to complete the activity 2 The helper provides more than half the effort to complete the activity 1 Dependent. The helper does all the effort to complete an activity 7 Patient refused to complete or attempt activity 9 The patient did not perform the activity before the current illness or injury 88 Not attempted due to Medical conditions or safety concerns Transfers (B, C, W/C) (FIM): 5 (SBA: pt sit to stand from 16" toilet to FWW; pt able to complete 2x with SBA with use of grab bar to R and toilet seat) Scootin Rollin Roll Left to Right (QC): 5 Supine to/from Sit: 5 Sit to/from Stand: 5 Sit to Lying (QC): 5 Sit to Stand (QC): 5 Chair/Zpb-tv-Fizkg Xfer(QC): 5 Bed to/from Chair: 5 Car Transfer (QC): 5 Gait Training Does the Patient Walk?: Yes Gait (FIM): 5 Distance (FIM): 3=150 ft Distance: 150' Walk 10 feet (QC): 5 Walk 50 ft with 2 Turns(QC): 5 Walk 150 ft (QC): 5 Walking 10ft/uneven surface-QC: 5 Gait Level of Assist: 5 Gait Persons Needed: 1 Gait Assistive Device: FWW Wheelchair Training Does the Pt Use a Wheelchair?: No Stair Training Stair Training: Handrails/: 2 handrails Stairs (FIM): 2 #of Steps: 4 1 Step (curb) (QC): 4 4 Steps (QC): 4 12 Steps (QC): 9 Stairs: Pattern: Step to Level of Assist: 4 Mental Status/Objective Comprehension: 7 Expression: 7 Social Interaction: 7 Problem Solvin Memory: 7 ADL-Treatment Feedin Eating (QC): 6 Groomin (completes hair grooming at sink wit FWW) Oral Hygiene (QC): 4 (SBA at sink) Bathin (SBA during stance. Pt utilizes shower bench within the shower, able to wash all areas without use of AE. ) Shower/Bathe Self (QC): 4 (SBA in stance.) Upper Extremity Dressin (Gathered clothing items. Completed dressing tasks in chair.) Upper Body Dressing (QC): 6 Lower Extremity Dressin Lower Body Dressing (QC): 6 On/Off Footwear (QC): 6 Toiletin (SUP during stance at FWW/ grab bars.) Toileting Hygiene (QC): 5 (SUP) Toilet/Commode Transfer: 5 Toilet Transfer (QC): 5 (SBA) Tub: 5 (SBA. Pt utilizes FWW to back up to shower seat, holds onto grab bars to lower. Good safety awareness and motor control.) Shower: 5 (SBA) Assessment/Plan Assessment and Plan Assess & Plan/Chief Complaint Plan: IRF protocol Supportive care Delirium monitoring ETOH cessation Hold laxatives until needed RLS per PCP consultation Nebs to maintain when necessary Ativan as needed Monitor urinary system Eliquis and aspirin restarted per cardiology Monitor falls UTI acute placed on Rocephin empirically now discontinued and started on Keflex due to pansensitive Escherichia coli Needs skilled nursing placement but may want to try home with HH but now decides NH is best Continued and major fall risk (1) Fall Status: Acute Qualifiers: Encounter type: subsequent encounter Qualified Codes: W19.XXXD - Unspecified fall, subsequent encounter (2) Hypokalemia Status: Acute (3) Folate deficiency Status: Acute (4) Pancytopenia Status: Acute (5) Debility Status: Acute (6) Interstitial lung disease Status: Chronic (7) Weight loss, unintentional Status: Chronic (8) CAD (coronary artery disease) Status: Chronic Qualifiers: Coronary Disease-Associated Artery/Lesion type: [place] artery [place] vs. transplanted heart: [place] heart Associated angina: without angina Qualified Codes: I25.10 - Atherosclerotic heart disease of [place] coronary artery without angina pectoris (9) HTN (hypertension) Status: Chronic Qualifiers: Hypertension type: essential hypertension Qualified Codes: I10 - Essential (primary) hypertension (10) Nausea & vomiting Status: Acute Qualifiers: Vomiting type: unspecified (11) Bad odor of urine (12) UTI (urinary tract infection) Status: Acute (13) Skin tear Status: Acute DUKE ABAD DO Jan 25, 2019 08:47
--- NOTE | 2019-01-25 10:12 | Physical Therapy Daily Note ---
PT Daily Note-Current Subjective Pt sitting up in bed upon arrival. Pt agrees to PT. Pt reports as well as demonstrates anxiety with tx due to D/C. Pain Numeric Pain Scale: 5-Moderate Pain Location: Right, Left Location Body Site: Hand Pain Description: Tingling, Numbness Comment: Pt reports Neuropathy like symptoms but this is ongoing. Mental Status Patient Orientation: Person, Place, Situation Transfers Therapy Quality Codes: 6 Independent with activity with or without an assistive device 5 Patient requires set up or clean up by helper. Patient completes activity by themselves 4 Supervision or touching assist (CGA). [place] provide cues , steadying assist 3 The helper provides less than half the effort to complete the activity 2 The helper provides more than half the effort to complete the activity 1 Dependent. The helper does all the effort to complete an activity 7 Patient refused to complete or attempt activity 9 The patient did not perform the activity before the current illness or injury 88 Not attempted due to Medical conditions or safety concerns Transfers (B, C, W/C): 6 Roll Left to Right (QC): 6 Sit to Lying (QC): 6 Sit to Stand (QC): 6 Chair/Jpj-to-Sjomh Xfer(QC): 6 Bed to/from Chair: 6 Car Transfer (QC): 6 Pt takes extended time to complete tasks due to SOA with laying. Pt needs VC at times. Weight Bearing Right Lower Extremity: Right Weight Bearing/Tolerated Left Lower Extremity: Left Weight Bearing/Tolerated Gait Training Does the Patient Walk?: Yes Gait: 5 Distance: 150' Walk 10 feet (QC): 5 Walk 50 ft with 2 Turns(QC): 5 Walk 150 ft (QC): 5 Walking 10ft/uneven surface-QC: 5 Gait Persons Needed: 1 Gait Assistive Device: FWW Pt fatigues quicker today but pt did not sleep well so this exacerbated his fatigue. Wheelchair Training Does the Pt Use a Wheelchair?: No Stair Training Stair Training: Handrails/: 2 handrails #of Steps: 4 1 Step (curb) (QC): 5 4 Steps (QC): 5 Stairs: Pattern: Step to Level of Assist: 5 Balance Picking up an Object (QC): 88 Special Test Comments Pt gets dizzy with bending over. Treatments Pt completes FIM scoring items listed about but takes extended time to complete task due to fatigue. Pt returns to EOB to rest at end of tx. Pt has bed alarm on and all needs met, call light in hand. OT to arrive shortly. Assessment Current Status: Fair Progress Pt fatigues quicker due to not sleeping well last night. PT Residential Goals Rn Float Goals PT Residential Goals Time Frame: Feb 03, 2019 Sit to Lying (QC): 6 Lying-Sitting on Side/Bed(QC): 6 Sit to Stand (QC): 6 Roll Left to Right (QC): 6 Chair/Wnw-mk-Dkmaw Xfer(QC): 6 Car Transfer (QC): 6 Does the Patient Walk: Yes Distance: 250' Walk 10 feet (QC): 6 Walk 10ft-Uneven Surface(QC): 6 Walk 50ft with 2 Turns (QC): 6 Walk 150 ft (QC): 6 Gait Level of Assist: 6 Gait Assistive Device: FWW # of Steps: 4 1 Step (curb) (QC): 6 4 Steps (QC): 6 12 Steps (QC): 9 Stairs Level Of Assist: 6 Picking up an Object (QC): 6 PT Plan Problem List Problem List: Activity Tolerance, Functional Strength, Safety Treatment/Plan Treatment Plan: Continue Plan of Care Treatment Plan: Bed Mobility, Education, Functional Activity Jordy, Functional Strength, Group Therapy, Gait, Safety, Therapeutic Exercise, Transfers Treatment Duration: Feb 03, 2019 Frequency: At least 5 of 7 days/Wk (IRF) Estimated Hrs Per Day: 1.5 hours per day Patient and/or Family Agrees t: Yes Time/GCodes Time In: 815 Time Out: 915 Total Billed Treatment Time: 60 Total Billed Treatment 1, GT x2 (30m) & FA x2 (30m) MELLISSA RANGEL SWEATBAND FLANGER Jan 25, 2019 10:12
[2019-01-25 10:48] VITALS: BP 128/73
[2019-01-25] MEDS: LORATADINE (CLARITIN) 10 MG TAB PO SCH (10:50)
[2019-01-25] MEDS: ASPIRIN 81 MG CHEW (CHILDREN'S ASA) PO SCH (10:50)
[2019-01-25] MEDS: meTOprolol SUCCINATE 100 MG (TOPROL XL) TAB PO SCH ×2 (10:51→20:47)
[2019-01-25] MEDS: PANTOPRAZOLE 20 MG TABLET (PROTONIX) PO SCH (10:51)
[2019-01-25] MEDS: amLODIPine 5 MG (NORVASC) TAB PO SCH (10:51)
[2019-01-25] MEDS: LOSARTAN 100 MG (COZAAR) TABLET PO SCH (10:51)
[2019-01-25] MEDS: CEPHALEXIN 250 MG (KEFLEX) CAP PO SCH ×3 (10:51→17:33)
[2019-01-25] MEDS: APIXABAN 2.5 MG (ELIQUIS) TABLET PO SCH ×2 (10:52→20:46)
--- NOTE | 2019-01-25 10:55 | Occupational Ther Daily Note ---
OT Current Status-Daily Note Subjective Pt seen in bed, pt agreeable to therapy tx. Pt states he did not sleep well at all last night, states he should have taken his anxiety medicine. Upon asking, pt states he was not nervous/ anxious but more "restless." Mental Status/Objective Therapy Code Descriptions/Definitions Functional [place] Measure: 0=Not Assessed/NA 4=Minimal Assistance 1=Total Assistance 5=Supervision or Setup 2=Maximal Assistance 6=Modified [place] 3=Moderate Assistance 7=Complete [place] ADL-Treatment Therapy Code Descriptions/Definitions Functional [place] Measure: 0=Not Assessed/NA 4=Minimal Assistance 1=Total Assistance 5=Supervision or Setup 2=Maximal Assistance 6=Modified [place] 3=Moderate Assistance 7=Complete [place] Therapy Quality Codes: 6 Independent with activity with or without an assistive device 5 Patient requires set up or clean up by helper. Patient completes activity by themselves 4 Supervision or touching assist (CGA). [place] provide cues , steadying assist 3 The helper provides less than half the effort to complete the activity 2 The helper provides more than half the effort to complete the activity 1 Dependent. The helper does all the effort to complete an activity 7 Patient refused to complete or attempt activity 9 The patient did not perform the activity before the current illness or inju ry 88 Not attempted due to Medical conditions or safety concerns Eating (QC): 6 (Pt drinks IND.) Oral Hygiene (QC): 5 (SBA at sink. Use of FWW.) Shower/Bathe Self (QC): 5 (SUP during showering task, SBA in stance with hyacinth hygiene. Pt completes shower at normal pace with shower curtain closed.) Upper Body Dressing (QC): 4 (Pt handed shirt. Pt does not initiate. Verbal cues given to pt. Pt does not initiate. Tactile cues required to initiate arm threading. Pt completes on chair.) Lower Body Dressing (QC): 3 (Pt requires max verbal and tactile cues, threading of R leg for underwear. Pt sits and does not initiate L leg without multiple verbal cues. Pt given direction to sit to conserve energy and place pants/ shoes on. Pt stands and pulls up underwear with no response. Pt given shorts. Pt does not initiate without max verbal cues. Pt threads shorts onto head. Pt requires verbal cues for correction. Pt laughs at his mistake. Pt requires tactile and threading of L leg to initiate task, completes R leg and stands to pull up. Pt in stance, pt asked if he will put shoes on standing or seated. Pt states, "Sitting." Pt continues in stance, places foot in R shoe. Pt stands and stares, pt requires cues to sit. pt places L shoe on with increased verbal cues. ) Toileting (FIM): 4 (SBA, intermittent cues to intiate/ terminate activity.) Toileting Hygiene (QC): 5 (SBA) Toilet Transfer (QC): 5 (SBA stand to sit with use of FWW and grab barsSBA sit to stand with use of grab bars on R hand and L hand pushing from toilet seat) Other Treatment Pt asked to sit EOB. Pt remains in bed, begins forcefully blinking with eyes intermittently looking up toward clock. Pt continues this behavior for 2 minutes, pt redirected with verbal cues. Pt requires verbal cues to initiate bed mob. Pt sit to stand with increased time and cues. Pt walks 2 steps, pauses and does not respond to questioning. Pt continues walking with therapist direction. Pt undresses with cues; while covering IV site, R pectoral muscle twitching while forward flexing shoulder. Pt showers at normal pace. Conversations about perferred topics discussed during dressing tasks, pt responded at typical response rate until redirected to dressing task. Pt then stares and blinks and requires cues to initiate tasks. Pt requires max cues for hand placement for sit to stand once done with shower to transfer to FWW. Pt requires cues to initiate steps; OT counting each step aloud and pt takes small step per count until "8". Pt sits EOB toward foot of bed. Pt sit to stand, takes 4 small steps toward HOB, pt sits mid-bed. Pt requires max cueing for scooting toward HOB; pt does not place R foot to floor even with cueing to gather strength to scoot. Pt denies need to side-step toward HOB. Pt sits to supine with feet at end of bed. Pt denies need to be pulled up toward HOB. Pt states, "I'll make it." Pt left with call light in reach, all needs met, nursing notified of pt's behavior through session. Education OT Patient Education: Correct positioning, Energy conservation, Modified ADL techniques, Purpose of tx/functional activities, Safety issues, Transfer techniques, Use of adapted equipment Teaching Recipient: Patient Teaching Methods: Demonstration, Discussion Response to Teaching: Verbalize Understanding, Return Demonstration OT Short Term Goals Short Term Goals Upper Body Dressing(FIM): 6 (met) Lower Body Dressing(FIM): 3 (met) Transfers (B,C,W/C) (FIM): 5 (met- SBA) 1=Demonstrate adherence to instructed precautions during ADL tasks. 2=Patient will verbalize/demonstrate understanding of assistive devices/modifications for ADL. 3=Patient will improve strength/tolerance for activity to enable patient to perform ADL's. OT Brine Plant Operator Goals [facility] Goals Eating (QC): 6 (met) Oral Hygiene (QC): 6 Shower/Bathe Self (QC): 6 Upper Body Dressing (QC): 6 (met) Lower Body Dressing (QC): 6 On/Off Footwear (QC): 6 (met) Toileting Hygiene (QC): 6 Toilet/Commode Transfer (QC): 4 (met) Additional Goals: 1-Demonstrate ADL Tasks, 2-Verbalize Understanding, 3- ImproveStrength/Jordy 1=Demonstrate adherence to instructed precautions during ADL tasks. 2=Patient will verbalize/demonstrate understanding of assistive devices/modifications for ADL. 3=Patient will improve strength/tolerance for activity to enable patient to perform ADL's. OT Education/Plan Problem List/Assessment Assessment: Decreased Activ Tolerance, Decreased Safety Aware, Decreased UE Strength, Impaired Bed Mobility, Impaired I ADL's, Impaired Self-Care Skills Discharge Recommendations Plan/Recommendations: Continue POC Treatment Plan/Plan of Care Treatment,Training & Education: Yes Patient would benefit from OT for education, treatment and training to promote independence in ADL's, mobility, safety and/or upper extremity function for ADL's. Plan of Care: ADL Retraining, Caregiver Training, Cognitive Retraining, Functional Mobility, Group Exercise/Act as Ind, UE Funct Exercise/Act, UE Neuromus Re-Ed/Coord Treatment Duration: Jan 09, 2019 Frequency: 5 times per week Estimated Hrs Per Day: 1 hour per day (1-1.5 hours per day) Agreement: Yes Rehab Potential: Fair Time/GCodes Start Time: 09:30 Stop Time: 10:40 Total Time Billed (hr/min): 70 Billed Treatment Time 1 ADL x5 (70) JOANA MENDOZA OTR Jan 25, 2019 10:55
--- NOTE | 2019-01-25 11:05 | NUR ---
Patient more confused today. Per therapy, needed constant queuing for shower. Tried to put shorts on head. Bit call light and said he was trying to take a drink of water. Left lung slightly coarse. VSS. BP 128/73, HR 92, and 02 sat 96% on room air. Dr. Groves notified. No new orders rec'd.
--- NOTE | 2019-01-25 11:28 | NUR ---
RD FOLLOW-UP PMHx: ETOH abuse, GERD, HTN, CAD, AMS PT INTERACTION: Pt was awake and pleasant during nutrition follow-up. Pt states no current issues with n/v/c/d at this time. ABNORMAL NUTRITION-RELATED LAB VALUES: Hgb 10.3 (L); Hct 33 (L); Ca 8.2 (L); Pro 6.1 (L); alb 2.7 (L) Est. kcal needs: 5762-1398 kcal (20-25 kcal/kg) Est. Pro needs: 68-85 g Pro (0.8-1.0 g Pro/kg) PES STATEMENT: No nutrition diagnosis at this time. INTERVENTION: Continue with current diet order of regular diet. From a nutritional standpoint, pt has no nutrition concerns and ready for discharge at this time. MONITOR/EVALUATE: PO Intake, Weight Status, Hydration Status, Lab Values Elías Holland, MS, RD, LD [phone]
--- NOTE | 2019-01-25 11:37 | Progress Note ---
CONRADO PARKER MED STUDENT 01/25/19 1137: Subjective Date Seen by a Provider: Jan 25, 2019 Time Seen by a Provider: 11:32 Subjective/Events-last exam Since I last saw Mr. Contreras he has continued with OT/PT, and reports that he has been struggling today. He had been scheduled to be evaluated for his ability to go home, for instance, to try frying an egg, but he was not able to do these tasks today. PT/OT report that he has had anxiety about discharge and has been tired and not sleeping well. He has not been able to go about his daily tasks today, which is different from yesterday. He tried to put his pants on his head today and required lots of cues to dress his LE appropriately, and tried to bite the call light when he said he was trying to drink water. When I went in to speak to him he was asleep, and entering the room woke him up. Throughout the interview he seemed slightly confused and lethargic, which may have been from waking him, but he took a long time to answer questions and failed to answer some, and denied being short of breath when his breathing appeared labored. I asked him what he felt he needed to improve upon to go home, and his main concern was walking, but he was not able to say what it was about walking that was difficult for him. He did say that he felt comfortable going about his daily activities, but was notable to try and cook an egg this morning, and was not able to give a specific answer when I asked him why. The wounds on his arm are healing and do not have any dressings on them. Review of Systems General: No Chills, No Fatigue Pulmonary: No Dyspnea; Cough (with activity) Cardiovascular: No: Chest Pain, Edema Neurological: No: Weakness, Numbness Objective Exam Last Set of Vital Signs Vital Signs Date Time Temp Pulse Resp B/P (MAP) Pulse Ox O2 Delivery O2 Flow Rate FiO2 01/25/19 10:48 92 128/73 (91) 96 Room Air 01/25/19 05:04 37.4 20 Capillary Refill : I&O Intake and Output 01/25/19 00:00 Intake Total 990 ml Balance 990 ml Intake Oral 990 ml # Voids 6 # Bowel Movements 1 General: Alert, Oriented X3, Cooperative Heart: Regular Rate, Normal S1, Normal S2, No Murmurs Extremities: No Clubbing Other physical findings End expiratory wheezing on L mid and lower lung posts Numerous healing skin tears on L arm Results Lab Microbiology 01/19/19 Urine Culture - Final, Complete Escherichia coli Assessment/Plan Assessment/Plan Assess & Plan/Chief Complaint Assessment: Wheezing on auscultation of left mid and lower lung posts Anxiety Alcohol abuse UTI fall risk CAD HTN folate deficiency skin tear Plan: Monitor pulmonary symptoms, consider Neb treatment, CBC, potentially CXR Continue on medications for chronic conditions Continue PT/OT Supportive care Delirium monitoring ETOH cessation RLS per PCP consultation Nebs to maintain when necessary Ativan as needed Eliquis and aspirin restarted per cardiology Monitor falls Continue on Keflex due to pansensitive Escherichia coli Needs fdc placement but may want to try home with HH Continued and major fall risk Clinical Quality Measures DVT/VTE Risk/Contraindication: Risk Factor Score Per Nursin RFS Level Per Nursing on Admit: 4+=Very High CITLALI ABAD DO 01/26/19 0812: Supervisory-Addendum Brief Verification & Attestation Participated in pt care: history, MDM, physical Personally performed: exam, history, MDM, supervision of care Care discussed with: Medical Student Procedures: n/a Results interpretation: Verified all documentation Verification and Attestation of Medical Student E/M Service A medical student performed and documented this service in my presence. I reviewed and verified all information documented by the medical student and made modifications to such information, when appropriate. I personally performed the physical exam and medical decision making. Citlali Abad, Jan 26, 2019,08:12 CONRADO PARKER MED STUDENT Jan 25, 2019 11:37 CITLALI ABAD DO Jan 26, 2019 08:12
--- NOTE | 2019-01-25 12:10 | NUR ---
[facility] The facility will provide transportation for the patient. He will leave at 1000 on 01/26/19.
--- NOTE | 2019-01-25 13:15 | Progress Note - Cardiology ---
Cardiology SOAP Progress Note Subjective: Tires easily Mod, exertional shortness of breath No cp or palp or syncope Poor balance Objective: I&O/Vital Signs 01/25/19 01/26/19 01/26/19 01/26/19 22:39 01:41 02:53 05:08 Temp 38.8 37.2 36.8 Pulse 98 98 Resp 19 20 B/P (MAP) 131/72 (91) 145/79 (101) Pulse Ox 91 95 O2 Delivery Room Air 01/26/19 06:10 Temp 36.6 01/26/19 00:00 Intake Total 860 ml Output Total 150 ml Balance 710 ml Weight (Pounds): 191 Weight (Ounces): 0.0 Weight (Calculated Kilograms): [id number] Constitutional: AAO x 3, well-developed, well-nourished Respiratory: No accessory muscle use, No respiratory distress; chest expansion is symmetric, chest is bilaterally symmetric, rhonchi (scattered), other (prolonged expiratory phase) Cardiovascular: regular rate-rhythm; No JVD; S1 and S2, systolic murmur Gastrointestional: No tender; soft, audible bowel sounds Extremities: other (mild bilat LE swelling) Neurologic/Psychiatric: no motor/sensory deficits, alert, grossly intact Skin: No rash on exposed areas, No ulcerations on exposed areas; other (multiple bruises to arms/legs bilat with abrasions; drsg to left elbow D&I) Results/Procedures: Labs Laboratory Tests 01/25/19 19:00: White Blood Count 13.5H, Red Blood Count 3.24L, Hemoglobin 11.0L, Hematocrit 34L , Mean Corpuscular Volume 105H, Mean Corpuscular Hemoglobin 34, Mean Corpuscular Hemoglobin Concent 32, Red Cell Distribution Width 16.1H, Platelet Count 263, Mean Platelet Volume 9.9, Neutrophils (%) (Auto) 77H, Lymphocytes (%) (Auto) 13, Monocytes (%) (Auto) 10, Eosinophils (%) (Auto) 1, Basophils (%) (Auto) 0, Neutrophils # (Auto) 10.3H, Lymphocytes # (Auto) 1.8, Monocytes # (Auto) 1.3H, Eosinophils # (Auto) 0.1, Basophils # (Auto) 0.0, Sodium Level 137, Potassium Level 4.2, Chloride Level 103, Carbon Dioxide Level 24, Anion Gap 10, Blood Urea Nitrogen 12, Creatinine 1.17, Estimat Glomerular Filtration Rate > 60, BUN/Creatinine Ratio 10, Glucose Level 111H, Lactic Acid Level 0.94, Calcium [place] 8.4L, Corrected Calcium 9.4, Total Bilirubin 0.7, Aspartate Amino Transf (AST/SGOT) 16, Alanine Aminotransferase (ALT/SGPT) 15, Alkaline Phosphatase 106, Total Protein 6.1L, Albumin 2.7L 01/25/19 20:45: Urine Color YELLOW, Urine Clarity CLEAR, Urine pH 8, Urine Specific [place] 1.010L, Urine Protein NEGATIVE, Urine Glucose (UA) NEGATIVE, Urine Ketones NEGATIVE, Urine Nitrite NEGATIVE, Urine Bilirubin NEGATIVE, Urine Urobilinogen NORMAL, Urine Leukocyte Esterase 1+H, Urine RBC (Auto) 3+H, Urine RBC >100H, Urine WBC 2-5, Urine Squamous Epithelial Cells 0-2, Urine Crystals NONE, Urine Bacteria TRACE, Urine Casts NONE, Urine Mucus NEGATIVE, Urine Culture Indicated YES 01/26/19 05:23: White Blood Count 14.6H, Red Blood Count 2.99L, Hemoglobin 10.1L, Hematocrit 31L , Mean Corpuscular Volume 105H, Mean Corpuscular Hemoglobin 34, Mean Corpuscular Hemoglobin Concent 32, Red Cell Distribution Width 16.3H, Platelet Count 238, Mean Platelet Volume 10.6H, Neutrophils (%) (Auto) 81H, Lymphocytes (%) (Auto) 8L, Monocytes (%) (Auto) 10, Eosinophils (%) (Auto) 0, Basophils (%) (Auto) 0, Neutrophils # (Auto) 11.9H, Lymphocytes # (Auto) 1.2, Monocytes # (Auto) 1.4H, Eosinophils # (Auto) 0.1, Basophils # (Auto) 0.0, Sodium Level 135, Potassium Level 4.3, Chloride Level 103, Carbon Dioxide Level 21, Anion Gap 11, Blood Urea Nitrogen 13, Creatinine 1.15, Estimat Glomerular Filtration Rate > 60, BUN/Creatinine Ratio 11, Glucose Level 103, Calcium Level 8.5, Corrected Calcium 9.6, Total Bilirubin 1.0, Aspartate Amino Transf (AST/SGOT) 16, Alanine A minotransferase (ALT/SGPT) 15, Alkaline Phosphatase 101, Total Protein 5.8L, Albumin 2.6L Microbiology 01/19/19 Urine Culture - Final, Complete Escherichia coli A/P: Assessment: Bruising and oozing of bleed from iv sites and from minor injuries, improving AMS of undetermined etiology, probably related to alcohol withdrawal, managed by the Hospitalist Svce - improved PAF Anemia of undetermined etiology - being managed the Hospitalist/Medical Svce Hypertension - improving control H/o mild to mod pancytopenia being during admission of Dec 23-Dec 4 OAC with Eliquis Upper and lower endoscopy of 12-27-[address] 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 This is of unknown age. There is mild to moderate narrowing of the proximal basilar artery. Per CTA of 01-02-19 Recent weight loss of approx 30 lbs of undetermined etiology CAD - Cardiac cath of 09/19/18 showed patent RCA stents that were place in Apr 2016: Alpine Xience 3.5 x 15 mm prox and Alpine Xience 3.0 x 15 mm distally, postdilated with a 3.5 mm balloon, The rest of the vessels have diffuse, mod disease. LVEF 50-55%. Normal LVEDP Echocardiogram of December 24, [address] Jimenez concentric hypertrophy. LVEF 45-50%. Grade 1 diastolic dysfunction. AoV thickening consistent with sclerosis with mild regurg. PASP 15-20mmHg. Severe ostial left renal artery stenosis with subsequent percutaneous transluminal angioplasty and residual minimal stenosis, no dissection or distal embolization by Dr. Keen at [facility] in [place], [place] in the early CT of the chest from August 2016 showed borderline adenopathy in the axillary regions and in the subcarinal space. 7 mm pulmonary nodule in the RUL. This is followed by Dr Toya MENDOZA, treated with CPAP, followed by Dr Pittman Mild carotid arterial disease on carotid u/s of 09/21/18 PAD - PCI of the right anterior tibial, posterior tibial and peroneal with Medtronic Nitinol 4mm x 20mm stent in the right posterior tibial December 08, [address] Langston in [place], [place]. Peripheral angio of 09/19/18: Infrarenal AAA, mod in size, just above aorto iliac bifurcation; mod diff disease of the sup fems and distal leg circulation on both sides. Patent R post tib stent HLP - statin therapy followed by his PCP - currently being withheld d/t recent episode of pancreatitis Emphysema GERD H/o pancreatitis in the past - managed by PCP EKG of 11-03-15 showed LVH with repolarization abnormality and LAFB; not significantly changed on 09/13/18 CKD stage 2-3 H/o heavy ETOH use Tobaccoism - 2 PPD Plan: * Continue current cardiac regimen Physician Assessment Physician Assessment No cp or palp or syncope or shortness of breath at rest Gen weakness and somewhat poor balance Lungs: good bilat air entry Cor: reg Ext: no c/c/e A&R * As documented in our note above that I updated (italics) and as noted below * I answered his CV-related questions * Dr Jimenez covering Card Svce over the weekend. Please call if needed * Ok to d/c from card standpoint * Outpt f/u advised DAGO RAPHAEL MD FACP FAC CCDS Jan 25, 2019 13:14
[2019-01-25] MEDS: LORazepam 0.5 MG (ATIVAN) TABLET PO PRN (14:09)
--- NOTE | 2019-01-25 14:35 | Therapy Group Daily Note ---
Therapy Daily Group Note Patient Education Topic Exercises Exercises LE Seated Exercise, UE Exercise Session Ratio (pt:therapist): 5:2 Goal of Session: Education on ARU Expectations, UE/LE Strengthing Goal Met for this Session: Yes Pt Benefit of Group: Contributions to Others, Increased Functional Strength, Improved Cognition, Recognition of Peers, Socialization Other/Notes Pt ambulated to OT/PT group at [facility]. Group consisted of introductions (name, place living, favorite season and activity), socialization, UE/LE seated exercises, benefits of exercise, ARU description/expectations and memory activity. Pt introduced self appropriately and actively listened to peers. Pt demonstrated understanding of educational topics with gestures and verbally. Contributed to discussions and gave personal strategies and exercises that was appropriate to topics. Pt was able to complete UE/LE seated exercises, tolerated well. After therapy, pt lying in bed with call light/phone in reach. All needs met in room. Start Time: 13:00 Stop Time: 14:00 Total Billed Treatment Time: 60 Total Billed Treatment 1-[facility] GEOVANI VAZQUEZ Jan 25, 2019 14:35
--- NOTE | 2019-01-25 17:39 | NUR ---
Notified by RN that patient's is having second thoughts about discharge planned tomorrow to [facility]. RN reported that Marilu Whalen, social services, was completing Care Assessment and discussing discharge plans with patient's . Informed RN that I would be available to talk with patient's shortly.
[2019-01-25 17:54] VITALS: BP 133/75
--- NOTE | 2019-01-25 18:00 | NUR ---
This worker arrived to the ARU to discuss concerns with patient's . Patient's states she would like a referral made to [facility], as she does not feel comfortable with discharging patient to [facility]. Patient's reported she visited [facility] yesterday evening and is just not comfortable with the discharge to [facility]. Encouraged patient's to visit [facility]. Patient's states that she and her son are able to visit [facility] as patient has other family members at bedside. Informed patient's that after her visit to [facility], if she would like a referral made to the facility, this worker would proceed.
--- NOTE | 2019-01-25 18:46 | NUR ---
Continues to be confused and states patient states that his head "feels funny" today. When this RN asked patient about it, patient states that he just feels tired today. Dr. Groves notified. New orders for CBC, CMP, Chest XRAY, and Lactic acid.
--- NOTE | 2019-01-25 19:00 | NUR ---
Notified by RN that patient's would like to proceed with referral to [facility]. RN reports that Dr. Groves has ordered labs and chest x-ray due to patient's increased confusion. This worker will make a referral to [facility] tomorrow morning. Planning for discharge tomorrow pending medical stability and acceptance/availability of room at [facility]. This worker will update [facility] tomorrow when discharge plans are finalized.
[2019-01-25 19:10] LABS: BASOPHILS % (AUTO) 0 % (0-10); EOSINOPHILS # (AUTO) 0.1 10^3/uL (0.0-0.3); EOSINOPHILS % (AUTO) 1 % (0-10); HEMATOCRIT 34 % (40-54); LYMPHOCYTES # (AUTO) 1.8 X 10^3 (1.0-4.0); LYMPHOCYTES % (AUTO) 13 % (12-44); MEAN CORPUSCULAR HEMOGLOBIN 34 PG (25-34); MEAN CORPUSCULAR HGB CONC 32 G/DL (32-36); MEAN CORPUSCULAR VOLUME 105 FL (80-99); MEAN PLATELET VOLUME 9.9 FL (7.4-10.4); MONOCYTES # (AUTO) 1.3 X 10^3 (0.0-1.0); MONOCYTES % (AUTO) 10 % (0-12); NEUTROPHILS # (AUTO) 10.3 X 10^3 (1.8-7.8); NEUTROPHILS % (AUTO) 77 % (42-75); PLATELET COUNT 263 10^3/uL (130-400); RED CELL DISTRIBUTION WIDTH 16.1 % (10.0-14.5); WHITE BLOOD COUNT 13.5 10^3/uL (4.3-11.0)
--- NOTE | 2019-01-25 19:23 | NUR ---
Pt taken down to radiology per w/c for CXR.
[2019-01-25 19:29] LABS: ALANINE AMINOTRANSFERASE 15 U/L (0-55); ALBUMIN 2.7 GM/DL (3.2-4.5); ALKALINE PHOSPHATASE 106 U/L (40-136); BILIRUBIN,TOTAL 0.7 MG/DL (0.1-1.0); BUN/CREATININE RATIO 10; CALCIUM 8.4 MG/DL (8.5-10.1); CARBON DIOXIDE 24 MMOL/L (21-32); CHLORIDE 103 MMOL/L (98-107); CREATININE SERUM 1.17 MG/DL (0.60-1.30); GFR ESTIMATED > 60; GLUCOSE 111 MG/DL (70-105); POTASSIUM 4.2 MMOL/L (3.6-5.0); SODIUM 137 MMOL/L (135-145); TOTAL PROTEIN 6.1 GM/DL (6.4-8.2)
--- NOTE | 2019-01-25 19:49 | NUR ---
Pt back from radiology per w/c. Pt susan well with no c/o's.
[2019-01-25] MEDS ORDERED: LEVOFLOXACIN 750 MG TAB (LEVAQUIN) PO ONE (20:45)
[2019-01-25] MEDS: MONTELUKAST 10 MG (SINGULAIR) TAB PO SCH (20:47)
--- NOTE | 2019-01-25 20:48 | Diagnostic Imaging Report ---
EXAM: CHEST PA/LAT (2 VIEW) INDICATION: Shortness of air. COMPARISON: 01/05/2019. FINDINGS: The right PICC has been removed. Cardiomegaly. Prominent central pulmonary vascularity. Diffuse prominence of the interstitium. New airspace opacities throughout the left mid and lower lung. No pleural effusion or pneumothorax. Calcified aorta. IMPRESSION: 1. New airspace opacities throughout the mid and lower left lung suspicious for pneumonitis. 2. Stable cardiomegaly and prominent pulmonary vascularity. Dictated by: Dictated on workstation # [id number]
[2019-01-25 21:15] LABS: BILIRUBIN,URINE NEGATIVE (NEGATIVE); CLARITY,URINE CLEAR; COLOR,URINE YELLOW; GLUCOSE, URINE (UA) NEGATIVE (NEGATIVE); KETONES,URINE NEGATIVE (NEGATIVE); LEUKOCYTE ESTERASE ,URINE 1+ (NEGATIVE); NITRITE,URINE NEGATIVE (NEGATIVE); PH,URINE 8 (5-9); PROTEIN,URINE NEGATIVE (NEGATIVE); UROBILINOGEN,URINE NORMAL (NORMAL)
[2019-01-25 21:28] LABS: RBC,URINE >100 /HPF
[2019-01-25 21:29] LABS: BACTERIA,URINE TRACE /HPF; SQUAMOUS EPITHELIAL CELL,UR 0-2 /HPF
[2019-01-25 22:39] VITALS: BP 131/72
[2019-01-26] MEDS: HYDROcodone/APAP 5 MG/325 MG (LORTAB) TAB PO PRN ×2 (01:39→20:04)
--- NOTE | 2019-01-26 01:41 | NUR ---
Dr. Groves notified of temp 38.8. New orders received.
[2019-01-26] MEDS ORDERED: ACETAMINOPHEN 325 MG TABLET PO PRN (01:45)
[2019-01-26 05:08] VITALS: BP 145/79
[2019-01-26] MEDS: FOLIC ACID 1 MG TAB PO SCH (06:09)
[2019-01-26] MEDS: MULTIVIT W/MINERALS TAB (THERAGRAN M) PO SCH (06:09)
[2019-01-26 06:32] LABS: BASOPHILS % (AUTO) 0 % (0-10); EOSINOPHILS # (AUTO) 0.1 10^3/uL (0.0-0.3); EOSINOPHILS % (AUTO) 0 % (0-10); HEMATOCRIT 31 % (40-54); HEMOGLOBIN 10.1 G/DL (13.3-17.7); LYMPHOCYTES # (AUTO) 1.2 X 10^3 (1.0-4.0); LYMPHOCYTES % (AUTO) 8 % (12-44); MEAN CORPUSCULAR HEMOGLOBIN 34 PG (25-34); MEAN CORPUSCULAR HGB CONC 32 G/DL (32-36); MEAN CORPUSCULAR VOLUME 105 FL (80-99); MEAN PLATELET VOLUME 10.6 FL (7.4-10.4); MONOCYTES # (AUTO) 1.4 X 10^3 (0.0-1.0); MONOCYTES % (AUTO) 10 % (0-12); NEUTROPHILS # (AUTO) 11.9 X 10^3 (1.8-7.8); NEUTROPHILS % (AUTO) 81 % (42-75); PLATELET COUNT 238 10^3/uL (130-400); RED CELL DISTRIBUTION WIDTH 16.3 % (10.0-14.5); WHITE BLOOD COUNT 14.6 10^3/uL (4.3-11.0)
[2019-01-26 06:51] LABS: ALANINE AMINOTRANSFERASE 15 U/L (0-55); ALBUMIN 2.6 GM/DL (3.2-4.5); ALKALINE PHOSPHATASE 101 U/L (40-136); BUN/CREATININE RATIO 11; CALCIUM 8.5 MG/DL (8.5-10.1); CARBON DIOXIDE 21 MMOL/L (21-32); CHLORIDE 103 MMOL/L (98-107); CREATININE SERUM 1.15 MG/DL (0.60-1.30); GFR ESTIMATED > 60; GLUCOSE 103 MG/DL (70-105); POTASSIUM 4.3 MMOL/L (3.6-5.0); SODIUM 135 MMOL/L (135-145); TOTAL PROTEIN 5.8 GM/DL (6.4-8.2)
--- NOTE | 2019-01-26 08:06 | Progress Note ---
CONRADO PARKER MED STUDENT 01/26/19 0806: Subjective Date Seen by a Provider: Jan 26, 2019 Time Seen by a Provider: 07:20 Subjective/Events-last exam Since I last saw Mr. Toledo, he was preparing to be discharged to [facility], but has become medically unstable, although he had been cleared by cardiology. He had a 101.8 fever last night, and his labs today show decreased hematocrit and hemoglobin, increased MCV, increased neutrophils and monocytes, and his CXR showed new airspace opacities through mid and lower left lung that are suspicious for pneumonitis. He has been diagnosed with pneumonia and treated with levofloxacin. When I saw him today he reported feeling comfortable with his abilities and progress with therapy, although he only participated in group therapy yesterday, which went well. He did not remember being sent for a CXR last night until I mentioned it to him, reported that his BP was high last night. His breathing seemed labored similar to yesterday, but he denied SOB or any breathing difficulties. Review of Systems General: No Chills, No Fatigue Pulmonary: No Dyspnea, No Cough Cardiovascular: No: Chest Pain, Edema Neurological: Numbness (bilateral ankle numbness) Focused Exam Lactate Level 01/25/19 19:00: Lactic Acid Level 0.94 Objective Exam Last Set of Vital Signs Vital Signs Date Time Temp Pulse Resp B/P (MAP) Pulse Ox O2 Delivery O2 Flow Rate FiO2 01/26/19 06:10 36.6 01/26/19 05:08 98 20 145/79 (101) 95 Room Air Capillary Refill : I&O Intake and Output 01/26/19 00:00 Intake Total 1260 ml Output Total 150 ml Balance 1110 ml Intake Oral 1260 ml Output Urine Total 150 ml # Voids 6 # Bowel Movements 1 General: Alert, Oriented X3, Cooperative Heart: Regular Rate, Normal S1, Normal S2, No Murmurs Extremities: Normal Pulses Other physical findings Short inspiratory wheeze heard on left middle lung post Wraps on left arm and left leg for skin tears No pain or loss of sensation on ankles when palpated Results Lab Laboratory Tests 01/25/19 19:00: White Blood Count 13.5H, Red Blood Count 3.24L, Hemoglobin 11.0L, Hematocrit 34L , Mean Corpuscular Volume 105H, Mean Corpuscular Hemoglobin 34, Mean Corpuscular Hemoglobin Concent 32, Red Cell Distribution Width 16.1H, Platelet Count 263, Mean Platelet Volume 9.9, Neutrophils (%) (Auto) 77H, Lymphocytes (%) (Auto) 13, Monocytes (%) (Auto) 10, Eosinophils (%) (Auto) 1, Basophils (%) (Auto) 0, Neutrophils # (Auto) 10.3H, Lymphocytes # (Auto) 1.8, Monocytes # (Auto) 1.3H, Eosinophils # (Auto) 0.1, Basophils # (Auto) 0.0, Sodium Level 137, Potassium Level 4.2, Chloride Level 103, Carbon Dioxide Level 24, Anion Gap 10, Blood Urea Nitrogen 12, Creatinine 1.17, Estimat Glomerular Filtration Rate > 60, BUN/Creatinine Ratio 10, Glucose Level 111H, Lactic Acid Level 0.94, Calcium Level 8.4L, Corrected Calcium 9.4, Total Bilirubin 0.7, Aspartate Amino Transf (AST/SGOT) 16, Alanine Aminotransferase (ALT/SGPT) 15, Alkaline Phosphatase 106, Total Protein 6.1L, Albumin 2.7L 01/25/19 20:45: Urine Color YELLOW, Urine Clarity CLEAR, Urine pH 8, Urine Specific [place] 1.010L, Urine Protein NEGATIVE, Urine Glucose (UA) NEGATIVE, Urine Ketones NEGATIVE, Urine Nitrite NEGATIVE, Urine Bilirubin NEGATIVE, Urine Urobilinogen NORMAL, Urine Leukocyte Esterase 1+H, Urine RBC (Auto) 3+H, Urine RBC >100H, Urine WBC 2-5, Urine Squamous Epithelial Cells 0-2, Urine Crystals NONE, Urine Bacteria TRACE, Urine Casts NONE, Urine Mucus NEGATIVE, Urine Culture Indicated YES 01/26/19 05:23: White Blood Count 14.6H, Red Blood Count 2.99L, Hemoglobin 10.1L, Hematocrit 31L , Mean Corpuscular Volume 105H, Mean Corpuscular Hemoglobin 34, Mean Corpuscular Hemoglobin Concent 32, Red Cell Distribution Width 16.3H, Platelet Count 238, Mean Platelet Volume 10.6H, Neutrophils (%) (Auto) 81H, Lymphocytes (%) (Auto) 8L, Monocytes (%) (Auto) 10, Eosinophils (%) (Auto) 0, Basophils (%) (Auto) 0, Neutrophils # (Auto) 11.9H, Lymphocytes # (Auto) 1.2, Monocytes # (Auto) 1.4H, Eosinophils # (Auto) 0.1, Basophils # (Auto) 0.0, Sodium Level 135, Potassium Level 4.3, Chloride Level 103, Carbon Dioxide Level 21, Anion Gap 11, Blood Urea Nitrogen 13, Creatinine 1.15, Estimat Glomerular Filtration Rate > 60, BUN/Creatinine Ratio 11, Glucose Level 103, Calcium Level 8.5, Corrected Calcium 9.6, Total Bilirubin 1.0, Aspartate Amino Transf (AST/SGOT) 16, Alanine Aminotransferase (ALT/SGPT) 15, Alkaline Phosphatase 101, Total Protein 5.8L, Albumin 2.6L Microbiology 01/19/19 Urine Culture - Final, Complete Escherichia coli Assessment/Plan Assessment/Plan Assess & Plan/Chief Complaint Assessment: Pneumonia Anxiety Alcohol abuse UTI fall risk CAD HTN folate deficiency skin tear Plan: Consider sputum culture, continuing 750 mg levofloxacin po daily Continue on medications for chronic conditions Continue PT/OT Supportive care Delirium monitoring ETOH cessation RLS per PCP consultation Nebs to maintain when necessary Ativan as needed Eliquis and aspirin restarted per cardiology Monitor falls Continue on Keflex due to pansensitive Escherichia coli Needs shelter placement but may want to try home with HH Continued and major fall risk Clinical Quality Measures DVT/VTE Risk/Contraindication: Risk Factor Score Per Nursin RFS Level Per Nursing on Admit: 4+=Very High CITLALI ABAD DO 01/26/19 1252: Supervisory-Addendum Brief Verification & Attestation Participated in pt care: history, MDM, physical Personally performed: exam, history, MDM, supervision of care Care discussed with: Medical Student Procedures: n/a Results interpretation: Verified all documentation Verification and Attestation of Medical Student E/M Service A medical student performed and documented this service in my presence. I reviewed and verified all information documented by the medical student and made modifications to such information, when appropriate. I personally performed the physical exam and medical decision making. Citlali Abad, Jan 26, 2019,12:52 CONRADO PARKER MED STUDENT Jan 26, 2019 08:06 CITLALI ABAD DO Jan 26, 2019 12:52
--- NOTE | 2019-01-26 08:19 | NUR ---
Reviewed lab results and chest x-ray. Checked with Dr. Groves regarding discharge planned for today. Discharge has been cancelled as patient is now being treated for pneumonia. Patient's notified and verbalized understanding. Patient notified and verbalized understanding. Brittney Daniels notified.
--- NOTE | 2019-01-26 08:43 | NUR ---
Order placed for swing bed evaluation.
[2019-01-26 09:00] VITALS: BP 128/78
[2019-01-26] MEDS: ASPIRIN 81 MG CHEW (CHILDREN'S ASA) PO SCH (09:22)
[2019-01-26] MEDS: APIXABAN 2.5 MG (ELIQUIS) TABLET PO SCH ×2 (09:22→20:04)
[2019-01-26] MEDS: LOSARTAN 100 MG (COZAAR) TABLET PO SCH (09:22)
[2019-01-26] MEDS: LORATADINE (CLARITIN) 10 MG TAB PO SCH (09:22)
[2019-01-26] MEDS: meTOprolol SUCCINATE 100 MG (TOPROL XL) TAB PO SCH ×2 (09:23→20:03)
[2019-01-26] MEDS: KCL 10 MEQ TAB (MICRO K) PO SCH (09:23)
[2019-01-26] MEDS: amLODIPine 5 MG (NORVASC) TAB PO SCH (09:23)
[2019-01-26] MEDS: PANTOPRAZOLE 20 MG TABLET (PROTONIX) PO SCH (09:23)
[2019-01-26] MEDS: FUROSEMIDE 40 MG (LASIX) TAB PO SCH (09:23)
--- NOTE | 2019-01-26 09:55 | Physical Therapy Daily Note ---
PT Daily Note-Current Subjective Patient in recliner pre tx, agrees to PT, has no complaints of pain, states he is just tired and hard to breathe. Patient has pneumonia now. Appearance Patient in recliner post tx with nurse call, phone, tray, all needs met. O2 stayed about 93% throughout treatment. Mental Status Patient Orientation: Normal For Age Transfers Therapy Quality Codes: 6 Independent with activity with or without an assistive device 5 Patient requires set up or clean up by helper. Patient completes activity by themselves 4 Supervision or touching assist (CGA). [place] provide cues , steadying assist 3 The helper provides less than half the effort to complete the activity 2 The helper provides more than half the effort to complete the activity 1 Dependent. The helper does all the effort to complete an activity 7 Patient refused to complete or attempt activity 9 The patient did not perform the activity before the current illness or injury 88 Not attempted due to Medical conditions or safety concerns Transfers (B, C, W/C): 4 Sit to Stand (QC): 4 Chair/Xao-aa-Mqjog Xfer(QC): 4 CGA Weight Bearing Right Lower Extremity: Right Weight Bearing/Tolerated Left Lower Extremity: Left Weight Bearing/Tolerated Gait Training Distance: 50'x4 Walk 10 feet (QC): 4 Walk 50 ft with 2 Turns(QC): 4 Gait Persons Needed: 1 Gait Assistive Device: FWW Patient ambulates slower than usual, often just steps at a time before needed to take a standing rest break. Exercises Seated Therapy Exercises: Ankle pumps, Long arc quads, Hip flexion, Hip abd/add Seated Reps: 20 (2 sets) Treatments LE exercise, ambulation, transfers Assessment Current Status: Poor Progress Poor endurance, needs frequent rest breaks, SOB. PT Certified Nurse Midwife Goals Certified Nurse Midwife Goals PT Certified Nurse Midwife Goals Time Frame: Feb 03, 2019 Sit to Lying (QC): 6 Lying-Sitting on Side/Bed(QC): 6 Sit to Stand (QC): 6 Roll Left to Right (QC): 6 Chair/Ufo-pd-Yrzij Xfer(QC): 6 Car Transfer (QC): 6 Does the Patient Walk: Yes Distance: 250' Walk 10 feet (QC): 6 Walk 10ft-Uneven Surface(QC): 6 Walk 50ft with 2 Turns (QC): 6 Walk 150 ft (QC): 6 Gait Level of Assist: 6 Gait Assistive Device: FWW # of Steps: 4 1 Step (curb) (QC): 6 4 Steps (QC): 6 12 Steps (QC): 9 Stairs Level Of Assist: 6 Picking up an Object (QC): 6 PT Plan Problem List Problem List: Activity Tolerance, Functional Strength, Safety, Balance, Gait, Transfer, Bed Mobility Treatment/Plan Treatment Plan: Continue Plan of Care Treatment Plan: Bed Mobility, Education, Functional Activity Jordy, Functional Strength, Group Therapy, Gait, Safety, Therapeutic Exercise, Transfers Treatment Duration: Feb 03, 2019 Frequency: At least 5 of 7 days/Wk (IRF) Estimated Hrs Per Day: 1.5 hours per day Patient and/or Family Agrees t: Yes Safety Risks/Education Patient Education: Gait Training, Transfer Techniques, Correct Positioning, Safety Issues Teaching Recipient: Patient Teaching Methods: Demonstration, Discussion Response to Teaching: Reinforcement Needed Time/GCodes Time In: 0900 Time Out: 1000 Total Billed Treatment Time: 60 Total Billed Treatment 1 visit EX 30' GT 30' STACY LOPEZ PT Jan 26, 2019 09:55
--- NOTE | 2019-01-26 10:02 | Progress Note - Hospitalist ---
Subjective HPI/CC On Admission Date Seen by Provider: Jan 26, 2019 Time Seen by Provider: 09:00 CC: Debility from alcoholism and altered mental status HPI: This is a 73yoWM who was admitted nearly a week ago of Dr. Macias's who presented with altered mental status found to have significant alcohol withdrawal of which his was unaware that he was drinking alcohol but he was provided supportive care and subsequently has become quite debilitated overall. Smoking cessation has been counseled along with alcohol cessation. He is a retired [employer] for 35 years in [place]. He does report that he is needing to cut down on his alcohol. At this current time pt denies any significant pain, meds were reviewed, and will be continued on inpatient rehab. He has become incontinent and is need of further recovery before DC is planned. HPI per ELMER Martinez Sebastien Toledo is a 73-year-old male with past medical history of hypertension, coronary artery disease, GERD, and ETOH abuse who was recently admitted for AMS; his hospital stay was complicated by alcohol withdrawal. 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 CVA was suspected but ruled out via CT and clinical picture which was more consistent with ETOH withdrawal rather than CT. No MRI was done. Alcohol abuse was managed via activating CIWA protocol, giving thiamine and Folic acid. Pt was recently diagnosed with Paroxysmal Afib and was followed by Cardiology who ordered an Echo and started him on Eliquis. Pt's last stay also involved Macrocytic anemia which required transfusions and continued tx with folic acid. After pt was stabilized he was transitioned to inpatient rehabilitation on 01/08/19. I was consult for evaluation of restless leg symptoms. Patient reports last couple of evenings beginning shortly after getting into bed he will develop uncomfortable sensation in his legs that is only alleviated by moving them. He's had this in the past and I have not prescribed medication for him but his had either Mirapex her ropinirole he has taken her medication with release of his symptoms. He does have anemia with a low folate level that is macrocytic that with a history of esophagitis poor nutritional status from alcoholism iron deficiency is highly likely as well. He denies melena or bright red blood per rectum and denies abdominal pain. He is back to baseline mental status after be ing admitted with altered mental status and delirium. This is likely due to alcohol withdrawal. Subjective/Events-last exam Patient had been scheduled for long term transfer but last night spiked a temperature to 38.3. He states that he did not feel that he had a bad night denying Reiger's but he had more fatigue with yesterday's therapy. He reported a mild nonproductive cough. He denied dysuria or increased urinary frequency denied chest pain or extremity pain over previous skin tears. Focused Exam Lactate Level 01/25/19 19:00: Lactic Acid Level 0.94 Objective Exam Vital Signs Vital Signs Date Time Temp Pulse Resp B/P (MAP) Pulse Ox O2 Delivery O2 Flow Rate FiO2 01/26/19 06:10 36.6 01/26/19 05:08 98 20 145/79 (101) 95 Room Air Capillary Refill : General Appearance: No Apparent Distress, Chronically ill Respiratory: Chest Non Tender, No Accessory Muscle Use, Other (I basilar rales noted significantly worse on the left no wheezing appreciated. There is baseline diminished breath sounds posteriorly anteriorly a few left sided rales are noted right side is clear no wheezing.) Cardiovascular: No Gallop, No JVD, No Murmur Gastrointestinal: Normal Bowel Sounds, No Organomegaly, No Pulsatile Mass, Non Tender, Soft Extremity: No Calf Tenderness, Other (Healing skin tears over the left forearm and left lower extremity with trace bilateral edema to the mid tibia which appears stable. Extremities are warm purpura noted on lower and upper extremities. No evidence for hematoma.) Neurologic/Psychiatric: Alert Skin: Pallor Results/Procedures Lab Laboratory Tests 01/25/19 19:00 01/26/19 05:23 Patient resulted labs reviewed. Assessment/Plan Assessment and Plan Assess & Plan/Chief Complaint 1. Restless legs syndrome likely aggravated by iron deficiency anemia improved post IV iron therapy on when necessary ropinirole. 2. Left lower lobe pneumonia with sepsis not severe oral Levaquin ordered per Dr. Groves monitor over weekend and if stable consider transfer to long term the beginning of next week. 3. 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 4. Alcohol use disorder with malnutrition improving 5. Combination of anemia of chronic disease and iron deficiency slight drop in hemoglobin in the 10 range likely due to pneumonia continue to monitor. Clinical Quality Measures DVT/VTE Risk/Contraindication: Risk Factor Score Per Nursin RFS Level Per Nursing on Admit: 4+=Very High ELMER MACIAS MD Jan 26, 2019 10:02
--- NOTE | 2019-01-26 10:10 | Occupational Ther Daily Note ---
OT Current Status-Daily Note Subjective Pt seen in bed, nursing present. Pt states very tired on this date, slept "okay." Pt agreeable to OT tx session. Mental Status/Objective Therapy Code Descriptions/Definitions Functional Kite Measure: 0=Not Assessed/NA 4=Minimal Assistance 1=Total Assistance 5=Supervision or Setup 2=Maximal Assistance 6=Modified Kite 3=Moderate Assistance 7=Complete Kite ADL-Treatment Therapy Code Descriptions/Definitions Functional Kite Measure: 0=Not Assessed/NA 4=Minimal Assistance 1=Total Assistance 5=Supervision or Setup 2=Maximal Assistance 6=Modified Kite 3=Moderate Assistance 7=Complete Kite Therapy Quality Codes: 6 Independent with activity with or without an assistive device 5 Patient requires set up or clean up by helper. Patient completes activity by themselves 4 Supervision or touching assist (CGA). [place] provide cues , steadying assist 3 The helper provides less than half the effort to complete the activity 2 The helper provides more than half the effort to complete the activity 1 Dependent. The helper does all the effort to complete an activity 7 Patient refused to complete or attempt activity 9 The patient did not perform the activity before the current illness or injury 88 Not attempted due to Medical conditions or safety concerns Eating (QC): 6 (increased time and use of built up handles. Pt demonstrates frustration with task with fatigued hand muscles. ) Upper Body Dressing (QC): 6 (Completed in chair, pt able to gather clothing items.) Lower Body Dressing (QC): 3 (Pt requires threading L LE with both underwear and pants due to fatigue. Pt demonstrates short, shallow breaths during activity; pt educated on self-examining breaths, pt completes pursed lip breathing during task x2 and continues with task.) Other Treatment Pt educated on energy conservation, pursed lip breathing, diaphoramic breathing, and importance of sitting up during the day. Pt return demonstrates ability to complete deep breathing, unable to self-initiate without cues. Pt completes sponge bath on this date, states he urinated within the bed last night. Pt completes sponge bath in chair, standing for hyacinth/ bottom hygiene; pt requires assist with bottom wiping due to SOB and fatigue. While threading underwear over R leg, pt forcefully extends leg while pulling underwear proximally. Pt's toe on R foot began bleeding immediately after this action; nursing notified. Pt returns to chair with 1 break during ambulation with FWW. Pt sits in recliner to complete meal; pt SOB, educated once more of importance of sitting up and completing deep breathing exercises during the day. Pt left with PT, call light in reach, safety measures administered. Education OT Patient Education: Correct positioning, Disease process, Energy conservation, Modified ADL techniques, Purpose of tx/functional activities, Reviewed precautions, Safety issues, Transfer techniques Teaching Recipient: Patient Teaching Methods: Demonstration, Handout, Discussion Response to Teaching: Verbalize Understanding, Return Demonstration OT Short Term Goals Short Term Goals Upper Body Dressing(FIM): 6 (met) Lower Body Dressing(FIM): 3 (met) Transfers (B,C,W/C) (FIM): 5 (met- SBA) 1=Demonstrate adherence to instructed precautions during ADL tasks. 2=Patient will verbalize/demonstrate understanding of assistive devices/modifications for ADL. 3=Patient will improve strength/tolerance for activity to enable patient to perform ADL's. OT Information Systems Supervisor Goals Halfway Goals Eating (QC): 6 (met) Oral Hygiene (QC): 6 Shower/Bathe Self (QC): 6 Upper Body Dressing (QC): 6 (met) Lower Body Dressing (QC): 6 On/Off Footwear (QC): 6 (met) Toileting Hygiene (QC): 6 Toilet/Commode Transfer (QC): 4 (met) Additional Goals: 1-Demonstrate ADL Tasks, 2-Verbalize Understanding, 3- ImproveStrength/Jordy 1=Demonstrate adherence to instructed precautions during ADL tasks. 2=Patient will verbalize/demonstrate understanding of assistive devices/modifications for ADL. 3=Patient will improve strength/tolerance for activity to enable patient to perform ADL's. OT Education/Plan Problem List/Assessment Assessment: Decreased Activ Tolerance, Decreased UE Strength, Impaired Coordination, Impaired I ADL's, Impaired Self-Care Skills Discharge Recommendations Plan/Recommendations: Continue POC Treatment Plan/Plan of Care Treatment,Training & Education: Yes Patient would benefit from OT for education, treatment and training to promote independence in ADL's, mobility, safety and/or upper extremity function for ADL's. Plan of Care: ADL Retraining, Caregiver Training, Cognitive Retraining, Functional Mobility, Group Exercise/Act as Ind, UE Funct Exercise/Act, UE Neuromus Re-Ed/Coord Treatment Duration: Jan 09, 2019 Frequency: 5 times per week Estimated Hrs Per Day: 1 hour per day (1-1.5 hours per day) Agreement: Yes Rehab Potential: Fair Time/GCodes Start Time: 08:00 Stop Time: 09:00 Total Time Billed (hr/min): 60 Billed Treatment Time 1 FA x2 (30), ADL x2 (30) Total: 60 JOANA MENDOZA OTR Jan 26, 2019 10:10
--- NOTE | 2019-01-26 10:20 | NUR ---
RN notified by OT that while pt was dressing, he injured his left toe by pulling garments on forcefully. Left second toe on plantar side found to have open lesion in crease of toe, aprox 1cm across. Wound dressed with Xeroform and 4x4 gauze.
[2019-01-26] MEDS: LEVOFLOXACIN 750 MG TAB (LEVAQUIN) PO SCH (11:00)
[2019-01-26] MEDS ORDERED: LEVOFLOXACIN 750 MG TAB (LEVAQUIN) PO SCH (11:00)
--- NOTE | 2019-01-26 11:11 | PM&R Progress Note ---
Subjective HPI/CC On Admission Date Seen by Provider: Jan 26, 2019 Time Seen by Provider: 09:00 CC: Debility from alcoholism and altered mental status HPI: This is a 73yoWM who was admitted nearly a week ago of Dr. Macias's who presented with altered mental status found to have significant alcohol withdrawal of which his was unaware that he was drinking alcohol but he was provided supportive care and subsequently has become quite debilitated overall. Smoking cessation has been counseled along with alcohol cessation. He is a retired [employer] for 35 years in [place]. He does report that he is needing to cut down on his alcohol. At this current time pt denies any significant pain, meds were reviewed, and will be continued on inpatient rehab. He has become incontinent and is need of further recovery before DC is planned. HPI per ELMER Martinez Sebastien Toledo is a 73-year-old male with past medical history of hypertension, coronary artery disease, GERD, and ETOH abuse who was recently admitted for AMS; his hospital stay was complicated by alcohol withdrawal. 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 CVA was suspected but ruled out via CT and clinical picture which was more consistent with ETOH withdrawal rather than CT. No MRI was done. Alcohol abuse was managed via activating CIWA protocol, giving thiamine and Folic acid. Pt was recently diagnosed with Paroxysmal Afib and was followed by Cardiology who ordered an Echo and started him on Eliquis. Pt's last stay also involved Macrocytic anemia which required transfusions and continued tx with folic acid. After pt was stabilized he was transitioned to inpatient rehabilitation on 01/08/19. I was consult for evaluation of restless leg symptoms. Patient reports last couple of evenings beginning shortly after getting into bed he will develop uncomfortable sensation in his legs that is only alleviated by moving them. He's had this in the past and I have not prescribed medication for him but his had either Mirapex her ropinirole he has taken her medication with release of his symptoms. He does have anemia with a low folate level that is macrocytic that with a history of esophagitis poor nutritional status from alcoholism iron deficiency is highly likely as well. He denies melena or bright red blood per rectum and denies abdominal pain. He is back to baseline mental status after be ing admitted with altered mental status and delirium. This is likely due to alcohol withdrawal. Subjective/Events-last exam Discharge is now delayed due to new onset left sided pneumonia diagnosed last night with leukocytosis but not sepsis Patient slept okay last night Bowels are moving well. No urinary issues. I checked repeat urine sample and no evidence of any infection Discontinue Keflex was started on Levaquin FDC alcoholism really caused most of his clinical problems Primary care provider Dr. Amilcar Macias saw the patient today at my request considering his overall severe decline status and [facility] admissions that is probably caused decline in his morale No pain is reported Conferred with RN. Reviewed therapy notes. Checked meds and labs. Review of Systems General: Fatigue Pulmonary: Dyspnea Focused Exam Lactate Level 01/25/19 19:00: Lactic Acid Level 0.94 Objective Exam Vital Signs Vital Signs Date Time Temp Pulse Resp B/P (MAP) Pulse Ox O2 Delivery O2 Flow Rate FiO2 01/26/19 06:10 36.6 01/26/19 05:08 98 20 145/79 (101) 95 Room Air Capillary Refill : General Appearance: No Apparent Distress, Chronically ill HEENT: PERRL/EOMI, Normal ENT Inspection, Pharynx Normal, Moist Mucous Membranes Neck: Full Range of Motion, Normal Inspection, Non Tender, Supple Respiratory: Chest Non Tender, No Accessory Muscle Use, Other (I basilar rales noted significantly worse on the left no wheezing appreciated. There is baseline diminished breath sounds posteriorly anteriorly a few left sided rales are noted right side is clear no wheezing.) Cardiovascular: No Gallop, No JVD, No Murmur Gastrointestinal: Normal Bowel Sounds, No Organomegaly, No Pulsatile Mass, Non Tender, Soft Back: Normal Inspection, No CVA Tenderness, No Vertebral Tenderness Extremity: No Calf Tenderness, Other (Healing skin tears over the left forearm and left lower extremity with trace bilateral edema to the mid tibia which appears stable. Extremities are warm purpura noted on lower and upper extremities. No evidence for hematoma.) Neurologic/Psychiatric: Alert Skin: Pallor Lymphatic: No Adenopathy Results/Procedures Lab Laboratory Tests 01/25/19 19:00 01/26/19 05:23 Patient resulted labs reviewed. FIM Transfers Therapy Code Descriptions/Definitions Functional [place] Measure: 0=Not Assessed/NA 4=Minimal Assistance 1=Total Assistance 5=Supervision or Setup 2=Maximal Assistance 6=Modified [place] 3=Moderate Assistance 7=Complete [place] Therapy Quality Codes: 6 Independent with activity with or without an assistive device 5 Patient requires set up or clean up by helper. Patient completes activity by themselves 4 Supervision or touching assist (CGA). [place] provide cues , steadying assist 3 The helper provides less than half the effort to complete the activity 2 The helper provides more than half the effort to complete the activity 1 Dependent. The helper does all the effort to complete an activity 7 Patient refused to complete or attempt activity 9 The patient did not perform the activity before the current illness or in jury 88 Not attempted due to Medical conditions or safety concerns Transfers (B, C, W/C) (FIM): 4 Scootin Rollin Roll Left to Right (QC): 6 Supine to/from Sit: 5 Sit to/from Stand: 5 Sit to Lying (QC): 6 Sit to Stand (QC): 4 Chair/Zti-lk-Ullut Xfer(QC): 4 Bed to/from Chair: 6 Car Transfer (QC): 6 Gait Training Does the Patient Walk?: Yes Gait (FIM): 5 Distance (FIM): 3=150 ft Distance: 50'x4 Walk 10 feet (QC): 4 Walk 50 ft with 2 Turns(QC): 4 Walk 150 ft (QC): 5 Walking 10ft/uneven surface-QC: 5 Gait Level of Assist: 5 Gait Persons Needed: 1 Gait Assistive Device: FWW Wheelchair Training Does the Pt Use a Wheelchair?: No Stair Training Stair Training: Handrails/: 2 handrails Stairs (FIM): 2 #of Steps: 4 1 Step (curb) (QC): 5 4 Steps (QC): 5 12 Steps (QC): 9 Stairs: Pattern: Step to Level of Assist: 5 Balance Picking up an Object (QC): 88 Mental Status/Objective Comprehension: 7 Expression: 7 Social Interaction: 7 Problem Solvin Memory: 7 ADL-Treatment Feedin Eating (QC): 6 (increased time and use of built up handles. Pt demonstrates fr ustration with task with fatigued hand muscles. ) Groomin (completes hair grooming at sink wit FWW) Oral Hygiene (QC): 5 (SBA at sink. Use of FWW.) Bathin (SBA during stance. Pt utilizes shower bench within the shower, able to wash all areas without use of AE. ) Shower/Bathe Self (QC): 5 (SUP during showering task, SBA in stance with hyacinth hygiene. Pt completes shower at normal pace with shower curtain closed.) Upper Extremity Dressin (Gathered clothing items. Completed dressing tasks in chair.) Upper Body Dressing (QC): 6 (Completed in chair, pt able to gather clothing items.) Lower Extremity Dressin Lower Body Dressing (QC): 3 (Pt requires threading L LE with both underwear and pants due to fatigue. Pt demonstrates short, shallow breaths during activity; pt educated on self-examining breaths, pt completes pursed lip breathing during task x2 and continues with task.) On/Off Footwear (QC): 6 Toiletin (SBA, intermittent cues to intiate/ terminate activity.) Toileting Hygiene (QC): 5 (SBA) Toilet/Commode Transfer: 5 Toilet Transfer (QC): 5 (SBA stand to sit with use of FWW and grab barsSBA sit to stand with use of grab bars on R hand and L hand pushing from toilet seat) Tub: 5 (SBA. Pt utilizes FWW to back up to shower seat, holds onto grab bars to lower. Good safety awareness and motor control.) Shower: 5 (SBA) Assessment/Plan Assessment and Plan Assess & Plan/Chief Complaint Plan: IRF protocol Supportive care Delirium monitoring ETOH cessation Hold laxatives until needed RLS per PCP consultation [place] to maintain when necessary Ativan as needed Monitor urinary system Eliquis and aspirin restarted per cardiology Monitor falls UTI acute placed on Rocephin empirically now discontinued and started on Keflex due to pansensitive Escherichia coli Needs [facility] placement but may want to try home with HH but now decides NH is best that this is being delayed due to new onset left-sided pneumonia diagnosed 01/25/19 Continued and major fall risk (1) Fall Status: Acute Qualifiers: Encounter type: subsequent encounter Qualified Codes: W19.XXXD - Unspecified fall, subsequent encounter (2) Hypokalemia Status: Acute (3) Folate deficiency Status: Acute (4) Pancytopenia Status: Acute (5) Debility Status: Acute (6) Interstitial lung disease Status: Chronic (7) Weight loss, unintentional Status: Chronic (8) CAD (coronary artery disease) Status: Chronic Qualifiers: Coronary Disease-Associated Artery/Lesion type: [place] artery [place] vs. transplanted heart: [place] heart Associated angina: without angina Qualified Codes: I25.10 - Atherosclerotic heart disease of [place] coronary artery without angina pectoris (9) HTN (hypertension) Status: Chronic Qualifiers: Hypertension type: essential hypertension Qualified Codes: I10 - Essential (primary) hypertension (10) Nausea & vomiting Status: Acute Qualifiers: Vomiting type: unspecified (11) Bad odor of urine (12) UTI (urinary tract infection) Status: Acute (13) Skin tear Status: Acute (14) Pneumonia involving left lung DUKE ABAD DO Jan 26, 2019 11:11
--- NOTE | 2019-01-26 14:36 | Therapy Group Daily Note ---
Therapy Daily Group Note Patient Education Topic Other List Below (memory) Exercises LE Seated Exercise, UE Exercise Session Ratio (pt:therapist): 4:1 Goal of Session: Memory Strategies, UE/LE Strengthing Goal Met for this Session: Yes Pt Benefit of Group: Contributions to Others, Increased Functional Strength, Improved Cognition, Recognition of Peers, Socialization Other/Notes Pt transported via w/c to <-> from OT group at [facility]. Group consisted introductions (name, place born, favorite food), socialization, memory strategies, memory activity, memory education and seated LE/UE exercises. Pt introduced self appropriately and actively listened to peers. Pt acknowledged understanding of educational topics with gestures and verbally. Contributed to conversations and interacted with peers throughout group. Pt able to complete UE/LE seated exercises then remembered one exercise to lead group. Pt did have difficulty with memory activity. After group, pt lying in bed with call light/phone in reach. All needs met in room. Start Time: 13:00 Stop Time: 14:10 Total Billed Treatment Time: 70 Total Billed Treatment 1-GRP GEOVANI VAZQUEZ Jan 26, 2019 14:36
[2019-01-26 18:16] VITALS: BP 106/56
[2019-01-26] MEDS: MONTELUKAST 10 MG (SINGULAIR) TAB PO SCH (20:02)
[2019-01-26] MEDS: rOPINIRole 0.25 MG (REQUIP) TAB PO PRN (20:03)
[2019-01-26] MEDS: LORazepam 0.5 MG (ATIVAN) TABLET PO PRN (20:04)
[2019-01-26 20:05] VITALS: BP 114/71
[2019-01-27 05:31] VITALS: BP 134/74
[2019-01-27] MEDS: MULTIVIT W/MINERALS TAB (THERAGRAN M) PO SCH (06:10)
[2019-01-27] MEDS: FOLIC ACID 1 MG TAB PO SCH (06:10)
[2019-01-27] MEDS: LORATADINE (CLARITIN) 10 MG TAB PO SCH (08:53)
[2019-01-27] MEDS: ASPIRIN 81 MG CHEW (CHILDREN'S ASA) PO SCH (08:53)
[2019-01-27] MEDS: PANTOPRAZOLE 20 MG TABLET (PROTONIX) PO SCH (08:54)
[2019-01-27] MEDS: APIXABAN 2.5 MG (ELIQUIS) TABLET PO SCH ×2 (08:54→20:24)
--- NOTE | 2019-01-27 09:15 | NUR ---
Timeline note: 0850-Patient's blood pressure is 101/57 pulse 90, o2-92%RA, RR-22,T-37.2c. Patient is blinking his eyes and opening his eyes wide. This RN asked patient if eyes are hurting. Patient stated, "No, my vision is kind of blurry though." PT walks into room at this time and patient sits on side of bed. patient appears weak and fatigued and is still blinking eyes rapidly at times. 0900- recheck of bp-112/64 pulse-90. 0915-This RN notified Dr. Jimenez of patient's condition and findings-Dr. Jimenez orders to hold AM BP medications and states he will be down on ARU to round on patient shortly. Will carry out order and continue to monitor.
--- NOTE | 2019-01-27 10:10 | NUR ---
This RN notified Dr. Groves of patient's symptomatic low BP and Dr. Jimenez's order to hold AM BP medications. No new orders at this time. Will continue to monitor.
[2019-01-27] MEDS: meTOprolol SUCCINATE 100 MG (TOPROL XL) TAB PO SCH ×2 (10:31→20:25)
[2019-01-27] MEDS: amLODIPine 5 MG (NORVASC) TAB PO SCH (10:31)
[2019-01-27] MEDS: LOSARTAN 100 MG (COZAAR) TABLET PO SCH (10:31)
--- NOTE | 2019-01-27 11:00 | NUR ---
Dr. Jimenez rounded on patient at this time and orders cbc,cmb and lactic acid for today/now. Will input orders and await results. Will continue to monitor Pt.
[2019-01-27 11:04] LABS: BASOPHILS % (AUTO) 0 % (0-10); EOSINOPHILS # (AUTO) 0.2 10^3/uL (0.0-0.3); EOSINOPHILS % (AUTO) 3 % (0-10); HEMATOCRIT 31 % (40-54); HEMOGLOBIN 10.1 G/DL (13.3-17.7); LYMPHOCYTES # (AUTO) 1.1 X 10^3 (1.0-4.0); LYMPHOCYTES % (AUTO) 15 % (12-44); MEAN CORPUSCULAR HEMOGLOBIN 34 PG (25-34); MEAN CORPUSCULAR HGB CONC 33 G/DL (32-36); MEAN CORPUSCULAR VOLUME 104 FL (80-99); MEAN PLATELET VOLUME 10.4 FL (7.4-10.4); MONOCYTES # (AUTO) 0.8 X 10^3 (0.0-1.0); MONOCYTES % (AUTO) 10 % (0-12); NEUTROPHILS # (AUTO) 5.5 X 10^3 (1.8-7.8); NEUTROPHILS % (AUTO) 72 % (42-75); PLATELET COUNT 241 10^3/uL (130-400); RED CELL DISTRIBUTION WIDTH 15.7 % (10.0-14.5); WHITE BLOOD COUNT 7.6 10^3/uL (4.3-11.0)
[2019-01-27 11:20] LABS: BAND NEUTROPHILS 3 %; EOSINOPHILS % (MANUAL) 4 %; LYMPHOCYTES % (MANUAL) 13 %; MONOCYTES % (MANUAL) 7 %; NEUTROPHILS % (MANUAL) 73 %
[2019-01-27 11:21] LABS: RBC MORPH NORMAL
[2019-01-27 11:23] LABS: ALBUMIN 2.5 GM/DL (3.2-4.5); BILIRUBIN,TOTAL 0.3 MG/DL (0.1-1.0); CALCIUM 8.4 MG/DL (8.5-10.1); CREATININE SERUM 1.23 MG/DL (0.60-1.30); POTASSIUM 3.6 MMOL/L (3.6-5.0); TOTAL PROTEIN 5.8 GM/DL (6.4-8.2)
[2019-01-27] MEDS: LEVOFLOXACIN 750 MG TAB (LEVAQUIN) PO SCH (11:32)
--- NOTE | 2019-01-27 11:34 | NUR ---
Lab called critical lactic acid of 2.44 at this time. Will notify Dr. Groves.
--- NOTE | 2019-01-27 11:36 | Cardiology Progress Note ---
Subjective Date Seen by Provider: Jan 27, 2019 Time Seen by Provider: 11:32 Subjective/Events-last exam patient is complaining of dizziness and lightheadedness, has been borderline hypotensive today Review of Systems General: No Chills, No Night Sweats; Fatigue, Malaise; No Appetite, No Other HEENT: No Head Aches, No Visual Changes, No Eye Pain, No Ear Pain, No Dysph melanie, No Sinus Congestion, No Post Nasal Drip, No Sore Throat, No Other Pulmonary: Dyspnea; No Cough, No Pleuritic Chest Pain, No Other Cardiovascular: No: Chest Pain, Palpitations, Orthopnea, Paroxysmal Noc. Dyspnea, Edema, Lt Headedness, Other Focused Exam Lactate Level 01/25/19 19:00: Lactic Acid Level 0.94 01/27/19 10:45: Lactic Acid Level 2.44*H Lactic Acid Level Laboratory Tests Test 01/27/19 10:45 Lactic Acid Level 2.44 MMOL/L (0.50-2.00) *H Objective-Cardiology Exam Last Set of Vital Signs Vital Signs 01/27/19 01/27/19 01/27/19 05:31 06:48 08:03 Temp 37.0 Pulse 82 Resp 20 B/P (MAP) 134/74 (94) Pulse Ox 95 O2 Delivery Room Air Capillary Refill : I&O Intake and Output 01/27/19 00:00 Intake Total 1150 ml Output Total 935 ml Balance 215 ml Intake Oral 1150 ml Output Urine Total 935 ml General: Alert, Oriented X3, Cooperative HEENT: Atraumatic Heart: Regular Rate, Normal S1, Normal S2, No Murmurs Abdomen: Normal Bowel Sounds Extremities: No Clubbing, No Cyanosis, Normal Pulses Skin: No Rashes Neuro: Normal Speech Psych/Mental Status: Mental Status NL Results Lab Laboratory Tests 01/27/19 10:45 A/P-Cardiology Admission Diagnosis Hypotension Coronary artery disease Peripheral arterial disease Paroxysmal atrial fibrillation Assessment/Plan Borderline hypotension, has been hypertensive, hold all his blood pressure medication today and continue to monitor, encourage increasing fluid intake Status post change in mental status, questionable alcohol withdrawal, managed by hospitalist Anemia, H&H are stable Patient receiving antibiotic for possible pneumonia which has been resolving Paroxysmal atrial fibrillation maintained on oral anticoagulation, continue to monitor Upper and lower endoscopy of 12-27-[address] 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 This is of unknown age. There is mild to moderate narrowing of the proximal basilar artery. Per CTA of 01-02-19 Recent weight loss of approx 30 lbs of undetermined etiology CAD - Cardiac cath of 09/19/18 showed patent RCA stents that were place in Apr 2016: Alpine Xience 3.5 x 15 mm prox and Alpine Xience 3.0 x 15 mm distally, postdilated with a 3.5 mm balloon, The rest of the vessels have diffuse, mod disease. LVEF 50-55%. Normal LVEDP Echocardiogram of December 24, [address] Jimenez concentric hypertrophy. LVEF 45-50%. Grade 1 diastolic dysfunction. AoV thickening consistent with sclerosis with mild regurg. PASP 15-20mmHg. Severe ostial left renal artery stenosis with subsequent percutaneous tra nsluminal angioplasty and residual minimal stenosis, no dissection or distal embolization by Dr. Keen at [facility] in [place], [place] in the early CT of the chest from August 2016 showed borderline adenopathy in the axillary regions and in the subcarinal space. 7 mm pulmonary nodule in the RUL. This is followed by Dr Toya MENDOZA, treated with CPAP, followed by Dr Pittman Mild carotid arterial disease on carotid u/s of 09/21/18 PAD - PCI of the right anterior tibial, posterior tibial and peroneal with Medtronic Nitinol 4mm x 20mm stent in the right posterior tibial December 08, [address] Langston in [place], [place]. Peripheral angio of 09/19/18: Infrarenal AAA, mod in size, just above aorto iliac bifurcation; mod diff disease of the sup fems and distal leg circulation on both sides. Patent R post tib stent HLP - statin therapy followed by his PCP - currently being withheld d/t recent episode of pancreatitis H/o pancreatitis in the past - managed by PCP CKD stage 2-3, renal functions are better, continue to monitor H/o heavy ETOH use Tobaccoism - 2 PPD Clinical Quality Measures DVT/VTE Risk/Contraindication: Risk Factor Score Per Nursin RFS Level Per Nursing on Admit: 4+=Very High RADHA JIMENEZ MD Jan 27, 2019 11:36
--- NOTE | 2019-01-27 11:47 | Physical Therapy Daily Note ---
PT Daily Note-Current Subjective Pt agreeable to PT session, states he is very tired, sort of anxiety feeling, lightheaded, shakey, SOA, "I just don't feel right". Nursing aware and present during entire tx session, took vitals. Pain Numeric Pain Scale: 0-No Pain Appearance Pt supine in bed upon arrival. At end of session, pt supine in bed with HOB elevated, phone, call light and bedside table within reach. Nurse present during entire session Mental Status Patient Orientation: Person, Place, Time, Eyes Open, Situation, Normal For Age Transfers Therapy Quality Codes: 6 Independent with activity with or without an assistive device 5 Patient requires set up or clean up by helper. Patient completes activity by themselves 4 Supervision or touching assist (CGA). [place] provide cues , steadying assist 3 The helper provides less than half the effort to complete the activity 2 The helper provides more than half the effort to complete the activity 1 Dependent. The helper does all the effort to complete an activity 7 Patient refused to complete or attempt activity 9 The patient did not perform the activity before the current illness or injury 88 Not attempted due to Medical conditions or safety concerns Roll Left to Right (QC): 5 Sit to Lying (QC): 4 Sit to Stand (QC): 4 Chair/Ktw-vm-Tmokl Xfer(QC): 4 shaky and unsteady during stance. CGA provided due to unsteadiness and c/o lightheadedness. Weight Bearing Right Lower Extremity: Right Weight Bearing/Tolerated Left Lower Extremity: Left Weight Bearing/Tolerated Exercises static stance with FWW x5 min, Sitting balance at EOB with and without UE and LE support x8 min Treatments bed mobility, transfers, safety, balance, strength, activity tolerance, functional mobility Assessment Pt not feeling well this morning. pulse high and irregular, BP's low, SPO2 fluctuating 90-94%. Nurse present during entire tx session and is aware. PT Public Health Informatician Goals Care Home Goals PT Public Health Informatician Goals Time Frame: Feb 03, 2019 Sit to Lying (QC): 6 Lying-Sitting on Side/Bed(QC): 6 Sit to Stand (QC): 6 Roll Left to Right (QC): 6 Chair/Nvl-ci-Obeur Xfer(QC): 6 Car Transfer (QC): 6 Does the Patient Walk: Yes Distance: 250' Walk 10 feet (QC): 6 Walk 10ft-Uneven Surface(QC): 6 Walk 50ft with 2 Turns (QC): 6 Walk 150 ft (QC): 6 Gait Level of Assist: 6 Gait Assistive Device: FWW # of Steps: 4 1 Step (curb) (QC): 6 4 Steps (QC): 6 12 Steps (QC): 9 Stairs Level Of Assist: 6 Picking up an Object (QC): 6 PT Plan Treatment/Plan Treatment Plan: Continue Plan of Care Treatment Plan: Bed Mobility, Education, Functional Activity Jordy, Functional Strength, Group Therapy, Gait, Safety, Therapeutic Exercise, Transfers Treatment Duration: Feb 03, 2019 Frequency: At least 5 of 7 days/Wk (IRF) Estimated Hrs Per Day: 1.5 hours per day Patient and/or Family Agrees t: Yes Safety Risks/Education Patient Education: Transfer Techniques, Safety Issues Teaching Recipient: Patient Teaching Methods: Discussion Response to Teaching: Verbalize Understanding Time/GCodes Time In: 837 Time Out: 856 Total Billed Treatment Time: 19 Total Billed Treatment 1 visit, FA x19 min ALYSON ROSAS TRANSPORTATION MANAGER Jan 27, 2019 11:47
--- NOTE | 2019-01-27 11:55 | NUR ---
Dr. Groves here at this time to round on patient again since lactic acid 2.44. orders iv start, 1L NS at 100ml/hr, and recheck lactic acid in four hrs. Will carry out orders and continue to monitor.
--- NOTE | 2019-01-27 12:22 | PM&R Progress Note ---
Subjective HPI/CC On Admission Date Seen by Provider: Jan 27, 2019 Time Seen by Provider: 11:00 CC: Debility from alcoholism and altered mental status HPI: This is a 73yoWM who was admitted nearly a week ago of Dr. Macias's who presented with altered mental status found to have significant alcohol withdrawal of which his was unaware that he was drinking alcohol but he was provided supportive care and subsequently has become quite debilitated overall. Smoking cessation has been counseled along with alcohol cessation. He is a retired [employer]in for 35 years in [place]. He does report that he is needing to cut down on his alcohol. At this current time pt denies any significant pain, meds were reviewed, and will be continued on inpatient rehab. He has become incontinent and is need of further recovery before DC is planned. HPI per ELMER Martinez Sebastien Toledo is a 73-year-old male with past medical history of hypertension, coronary artery disease, GERD, and ETOH abuse who was recently admitted for AMS; his hospital stay was complicated by alcohol withdrawal. 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 CVA was suspected but ruled out via CT and clinical picture which was more consistent with ETOH withdrawal rather than CT. No MRI was done. Alcohol abuse was managed via activating CIWA protocol, giving thiamine and Folic acid. Pt was recently diagnosed with Paroxysmal Afib and was followed by Cardiology who ordered an Echo and started him on Eliquis. Pt's last stay also involved Macrocytic anemia which required transfusions and continued tx with folic acid. After pt was stabilized he was transitioned to inpatient rehabilitation on 01/08/19. I was consult for evaluation of restless leg symptoms. Patient reports last couple of evenings beginning shortly after getting into bed he will develop uncomfortable sensation in his legs that is only alleviated by moving them. He's had this in the past and I have not prescribed medication for him but his had either Mirapex her ropinirole he has taken her medication with release of his symptoms. He does have anemia with a low folate level that is macrocytic that with a history of esophagitis poor nutritional status from alcoholism iron deficiency is highly likely as well. He denies melena or bright red blood per rectum and denies abdominal pain. He is back to baseline mental status after be ing admitted with altered mental status and delirium. This is likely due to alcohol withdrawal. Subjective/Events-last exam Elevated lactic acid is not sepsis since lungs are clear and no evidence of worsened status and Levaquin board spectrum coverage but initiated NS IVF to help hydration Discharge was delayed due to new onset left sided pneumonia diagnosed night with leukocytosis but not sepsis Patient slept okay last night Bowels are moving well. Confusion resolved Levaquin tolerated assisted alcoholism really caused most of his clinical problems No pain is reported Conferred with RN. Reviewed therapy notes. Checked meds and labs. Review of Systems General: Fatigue Focused Exam Lactate Level 01/27/19 10:45: Lactic Acid Level 2.44*H 01/27/19 13:00: Lactic Acid Level 1.53 01/27/19 16:34: Lactic Acid Level 2.36*H Lactic Acid Level Objective Exam Vital Signs Vital Signs Date Time Temp Pulse Resp B/P (MAP) Pulse Ox O2 Delivery O2 Flow Rate FiO2 01/27/19 18:00 36.8 92 24 106/61 (76) 94 Room Air Capillary Refill : General Appearance: No Apparent Distress, Chronically ill HEENT: PERRL/EOMI, Normal ENT Inspection, Pharynx Normal, Moist Mucous Membranes Neck: Full Range of Motion, Normal Inspection, Non Tender, Supple Respiratory: Chest Non Tender, No Accessory Muscle Use, Other (I basilar rales noted significantly worse on the left no wheezing appreciated. There is baseline diminished breath sounds posteriorly anteriorly a few left sided rales are noted right side is clear no wheezing.) Cardiovascular: No Gallop, No JVD, No Murmur Gastrointestinal: Normal Bowel Sounds, No Organomegaly, No Pulsatile Mass, Non Tender, Soft Back: Normal Inspection, No CVA Tenderness, No Vertebral Tenderness Extremity: No Calf Tenderness, Other (Healing skin tears over the left forearm and left lower extremity with trace bilateral edema to the mid tibia which appears stable. Extremities are warm purpura noted on lower and upper extremities. No evidence for hematoma.) Neurologic/Psychiatric: Alert Skin: Pallor Lymphatic: No Adenopathy Results/Procedures Lab Laboratory Tests 01/27/19 10:45 Patient resulted labs reviewed. FIM Transfers Therapy Code Descriptions/Definitions Functional [place] Measure: 0=Not Assessed/NA 4=Minimal Assistance 1=Total Assistance 5=Supervision or Setup 2=Maximal Assistance 6=Modified [place] 3=Moderate Assistance 7=Complete [place] Therapy Quality Codes: 6 Independent with activity with or without an assistive device 5 Patient requires set up or clean up by helper. Patient completes activity by themselves 4 Supervision or touching assist (CGA). [place] provide cues , steadying assist 3 The helper provides less than half the effort to complete the activity 2 The helper provides more than half the effort to complete the activity 1 Dependent. The helper does all the effort to complete an activity 7 Patient refused to complete or attempt activity 9 The patient did not perform the activity before the current illness or injury 88 Not attempted due to Medical conditions or safety concerns Transfers (B, C, W/C) (FIM): 4 Scootin Rollin Roll Left to Right (QC): 5 Supine to/from Sit: 5 Sit to/from Stand: 5 Sit to Lying (QC): 4 Sit to Stand (QC): 4 Chair/Klm-eo-Gichv Xfer(QC): 4 Bed to/from Chair: 6 Car Transfer (QC): 6 Gait Training Does the Patient Walk?: Yes Gait (FIM): 5 Distance (FIM): 3=150 ft Distance: 50'x4 Walk 10 feet (QC): 4 Walk 50 ft with 2 Turns(QC): 4 Walk 150 ft (QC): 5 Walking 10ft/uneven surface-QC: 5 Gait Level of Assist: 5 Gait Persons Needed: 1 Gait Assistive Device: FWW Wheelchair Training Does the Pt Use a Wheelchair?: No Stair Training Stair Training: Handrails/: 2 handrails Stairs (FIM): 2 #of Steps: 4 1 Step (curb) (QC): 5 4 Steps (QC): 5 12 Steps (QC): 9 Stairs: Pattern: Step to Level of Assist: 5 Balance Picking up an Object (QC): 88 Mental Status/Objective Comprehension: 7 Expression: 7 Social Interaction: 7 Problem Solvin Memory: 7 ADL-Treatment Feedin Eating (QC): 6 (increased time and use of built up handles. Pt demonstrates frustration with task with fatigued hand muscles. ) Groomin (completes hair grooming at sink wit FWW) Oral Hygiene (QC): 5 (SBA at sink. Use of FWW.) Bathin (SBA during stance. Pt utilizes shower bench within the shower, able to wash all areas without use of AE. ) Shower/Bathe Self (QC): 5 (SUP during showering task, SBA in stance with hyacinth hygiene. Pt completes shower at normal pace with shower curtain closed.) Upper Extremity Dressin (Gathered clothing items. Completed dressing tasks in chair.) Upper Body Dressing (QC): 6 (Completed in chair, pt able to gather clothing items.) Lower Extremity Dressin Lower Body Dressing (QC): 3 (Pt requires threading L LE with both underwear and pants due to fatigue. Pt demonstrates short, shallow breaths during activity; pt educated on self-examining breaths, pt completes pursed lip breathing during task x2 and continues with task.) On/Off Footwear (QC): 6 Toiletin (SBA, intermittent cues to intiate/ terminate activity.) Toileting Hygiene (QC): 5 (SBA) Toilet/Commode Transfer: 5 Toilet Transfer (QC): 5 (SBA stand to sit with use of FWW and grab barsSBA sit to stand with use of grab bars on R hand and L hand pushing from toilet seat) Tub: 5 (SBA. Pt utilizes FWW to back up to shower seat, holds onto grab bars to lower. Good safety awareness and motor control.) Shower: 5 (SBA) Assessment/Plan Assessment and Plan Assess & Plan/Chief Complaint Plan: IRF protocol Supportive care Delirium monitoring ETOH cessation Hold laxatives until needed RLS per PCP consultation Nebs to maintain when necessary Ativan as needed Monitor urinary system Eliquis and aspirin restarted per cardiology Monitor falls UTI s/p Rocephin and Keflex and now Levaquin for pneumonia Needs fpc placement but may want to try home with HH but now decides NH is best that this is being delayed due to new onset left-sided p neumonia diagnosed 01/25/19 Continued and major fall risk IVF fluids until tomorrow Lactic acid not due to sepsis (1) Fall Status: Acute Qualifiers: Encounter type: subsequent encounter Qualified Codes: W19.XXXD - Unspe cified fall, subsequent encounter (2) Hypokalemia Status: Acute (3) Folate deficiency Status: Acute (4) Pancytopenia Status: Acute (5) Debility Status: Acute (6) Interstitial lung disease Status: Chronic (7) Weight loss, unintentional Status: Chronic (8) CAD (coronary artery disease) Status: Chronic Qualifiers: Coronary Disease-Associated Artery/Lesion type: [place] artery [place] vs. transplanted heart: [place] heart Associated angina: without angina Qualified Codes: I25.10 - Atherosclerotic heart disease of [place] coronary artery without angina pectoris (9) HTN (hypertension) Status: Chronic Qualifiers: Hypertension type: essential hypertension Qualified Codes: I10 - Essential (primary) hypertension (10) Nausea & vomiting Status: Acute Qualifiers: Vomiting type: unspecified (11) Bad odor of urine (12) UTI (urinary tract infection) Status: Acute (13) Skin tear Status: Acute (14) Pneumonia involving left lung (15) Lactic acidemia Status: Acute DUKE ABAD DO Jan 27, 2019 12:22
[2019-01-27] MEDS: NS IV 1000 ML 1,000 ML IV SCH ×2 (12:24→20:49)
[2019-01-27 18:00] VITALS: BP 106/61
[2019-01-27] MEDS: rOPINIRole 0.25 MG (REQUIP) TAB PO PRN (20:24)
[2019-01-27] MEDS: MONTELUKAST 10 MG (SINGULAIR) TAB PO SCH (20:25)
[2019-01-28 05:07] VITALS: BP 154/76
[2019-01-28] MEDS: FOLIC ACID 1 MG TAB PO SCH (06:08)
[2019-01-28] MEDS: NS IV 1000 ML 1,000 ML IV SCH ×2 (06:08→17:58)
[2019-01-28] MEDS: MULTIVIT W/MINERALS TAB (THERAGRAN M) PO SCH (06:08)
[2019-01-28] MEDS: KCL 10 MEQ TAB (MICRO K) PO SCH (08:48)
[2019-01-28] MEDS: LORazepam 0.5 MG (ATIVAN) TABLET PO PRN ×2 (08:48→20:16)
[2019-01-28] MEDS: FUROSEMIDE 40 MG (LASIX) TAB PO SCH (08:48)
[2019-01-28] MEDS: LORATADINE (CLARITIN) 10 MG TAB PO SCH (08:48)
[2019-01-28] MEDS: amLODIPine 5 MG (NORVASC) TAB PO SCH (08:49)
[2019-01-28] MEDS: PANTOPRAZOLE 20 MG TABLET (PROTONIX) PO SCH (08:49)
[2019-01-28] MEDS: meTOprolol SUCCINATE 100 MG (TOPROL XL) TAB PO SCH ×2 (08:49→20:16)
[2019-01-28] MEDS: LOSARTAN 100 MG (COZAAR) TABLET PO SCH (08:49)
[2019-01-28] MEDS: ASPIRIN 81 MG CHEW (CHILDREN'S ASA) PO SCH (08:49)
[2019-01-28] MEDS: APIXABAN 2.5 MG (ELIQUIS) TABLET PO SCH ×2 (08:50→20:16)
--- NOTE | 2019-01-28 12:27 | Cardiology Progress Note ---
Subjective Date Seen by Provider: Jan 28, 2019 Time Seen by Provider: 12:26 Subjective/Events-last exam patient is laying down in bed, blood pressure is better today. No chest pain Review of Systems General: No Chills, No Night Sweats, No Fatigue, No Malaise, No Appetite, No Other HEENT: No Head Aches, No Visual Changes, No Eye Pain, No Ear Pain, No Dysphasia, No Sinus Congestion, No Post Nasal Drip, No Sore Throat, No Other Pulmonary: No Dyspnea, No Cough, No Pleuritic Chest Pain, No Other Cardiovascular: No: Chest Pain, Palpitations, Orthopnea, Paroxysmal Noc. Dyspnea, Edema, Lt Headedness, Other Focused Exam Lactate Level 01/27/19 10:45: Lactic Acid Level 2.44*H 01/27/19 13:00: Lactic Acid Level 1.53 01/27/19 16:34: Lactic Acid Level 2.36*H Objective-Cardiology Exam Last Set of Vital Signs Vital Signs 01/28/19 05:07 Temp 36.8 Pulse 95 Resp 20 B/P (MAP) 154/76 (102) Pulse Ox 91 O2 Delivery Room Air Capillary Refill : I&O Intake and Output 01/28/19 00:00 Intake Total 1800 ml Output Total 900 ml Balance 900 ml Intake Oral 800 ml IV Total 1000 ml Output Urine Total 900 ml General: Alert, Oriented X3, Cooperative HEENT: Atraumatic Neck: Supple, No JVD Heart: Regular Rate, Normal S1, Normal S2, No Murmurs Abdomen: Normal Bowel Sounds Extremities: No Clubbing, No Cyanosis, Normal Pulses Skin: No Rashes Neuro: Normal Speech Psych/Mental Status: Mental Status NL A/P-Cardiology Admission Diagnosis Hypotension Coronary artery disease Peripheral arterial disease Paroxysmal atrial fibrillation Assessment/Plan Borderline hypotension, better today, lipid pressure is better and his blood pressure medication were resumed. Continue to monitor Status post change in mental status, questionable alcohol withdrawal, managed by hospitalist Anemia, H&H are stable Patient receiving antibiotic for possible pneumonia which has been resolving Paroxysmal atrial fibrillation maintained on oral anticoagulation, continue to monitor Upper and lower endoscopy of 12-27-[address] 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 This is of unknown age. There is mild to moderate narrowing of the proximal basilar artery. Per CTA of 01-02-19 Recent weight loss of approx 30 lbs of undetermined etiology CAD - Cardiac cath of 09/19/18 showed patent RCA stents that were place in Apr 2016: Alpine Xience 3.5 x 15 mm prox and Alpine Xience 3.0 x 15 mm distally, postdilated with a 3.5 mm balloon, The rest of the vessels have diffuse, mod disease. LVEF 50-55%. Normal LVEDP Echocardiogram of December 24, [address] Jimenez concentric hypertrophy. LVEF 45-50%. Grade 1 diastolic dysfunction. AoV thickening consistent with sclerosis with mild regurg. PASP 15-20mmHg. Severe ostial left renal artery stenosis with subsequent percutaneous transluminal angioplasty and residual minimal stenosis, no dissection or distal embolization by Dr. Keen at [facility] in [place], [place] in the early CT of the chest from August 2016 showed borderline adenopathy in the axillary regions and in the subcarinal space. 7 mm pulmonary nodule in the RUL. This is followed by Dr Toya MENDOZA, treated with CPAP, followed by Dr Pittman Mild carotid arterial disease on carotid u/s of 09/21/18 PAD - PCI of the right anterior tibial, posterior tibial and peroneal with Medtronic Nitinol 4mm x 20mm stent in the right posterior tibial December 08, [address] Langston in [place], [place]. Peripheral angio of 09/19/18: Infrarenal AAA, mod in size, just above aorto iliac bifurcation; mod diff disease of the sup fems and distal leg circulation on both sides. Patent R post tib stent HLP - statin therapy followed by his PCP - currently being withheld d/t recent episode of pancreatitis H/o pancreatitis in the past - managed by PCP CKD stage 2-3, renal functions are better, continue to monitor H/o heavy ETOH use Tobaccoism - 2 PPD Clinical Quality Measures DVT/VTE Risk/Contraindication: Risk Factor Score Per Nursin RFS Level Per Nursing on Admit: 4+=Very High RADHA JIMEENZ MD Jan 28, 2019 12:27
--- NOTE | 2019-01-28 12:34 | PM&R Progress Note ---
Subjective HPI/CC On Admission Date Seen by Provider: Jan 28, 2019 Time Seen by Provider: 11:30 CC: Debility from alcoholism and altered mental status HPI: This is a 73yoWM who was admitted nearly a week ago of Dr. Macias's who presented with altered mental status found to have significant alcohol withdrawal of which his was unaware that he was drinking alcohol but he was provided supportive care and subsequently has become quite debilitated overall. Smoking cessation has been counseled along with alcohol cessation. 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 He does report that he is needing to cut down on his alcohol. At this current time pt denies any significant pain, me ds were reviewed, and will be continued on inpatient rehab. He has become incontinent and is need of further recovery before DC is planned. HPI per ELMER Martinez Sebastien Toledo is a 73-year-old male with past medical history of hypertension, coronary artery disease, GERD, and ETOH abuse who was recently admitted for AMS; his hospital stay was complicated by alcohol withdrawal. 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 CVA was suspected but ruled out via CT and clinical picture which was more consistent with ETOH withdrawal rather than CT. No MRI was done. Alcohol abuse was managed via activating CIWA protocol, giving thiamine and Folic acid. Pt was recently diagnosed with Paroxysmal Afib and was followed by Cardiology who ordered an Echo and started him on Eliquis. Pt's last stay also involved Macrocytic anemia which required transfusions and continued tx with folic acid. After pt was stabilized he was transitioned to inpatient rehabilitation on 01/08/19. I was consult for evaluation of restless leg symptoms. Patient reports last couple of evenings beginning shortly after getting into bed he will develop uncomfortable sensation in his legs that is only alleviated by moving them. He's had this in the past and I have not prescribed medication for him but his had either Mirapex her ropinirole he has taken her medication with release of his symptoms. He does have anemia with a low folate level that is macrocytic that with a history of esophagitis poor nutritional status from alcoholism iron deficiency is highly likely as well. He denies melena or bright red blood per rectum and denies abdominal pain. He is back to baseline mental status after being admitted with altered mental status and delirium. This is likely due to alcohol withdrawal. Subjective/Events-last exam HLIVF BP improved VCV tomorrow I suspect patient to have continued decline and cannot modify the fact that he will be a readmit risk Bowels are moving well. 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 Reviewed therapy notes. Checked meds and labs. Review of Systems General: Fatigue Focused Exam Lactate Level 01/27/19 10:45: Lactic Acid Level 2.44*H 01/27/19 13:00: Lactic Acid Level 1.53 01/27/19 16:34: Lactic Acid Level 2.36*H Objective Exam Vital Signs Vital Signs Date Time Temp Pulse Resp B/P (MAP) Pulse Ox O2 Delivery O2 Flow Rate FiO2 01/28/19 08:10 Room Air 01/28/19 05:07 36.8 95 20 154/76 (102) 91 Capillary Refill : General Appearance: No Apparent Distress, Chronically ill HEENT: PERRL/EOMI, Normal ENT Inspection, Pharynx Normal, Moist Mucous Memb ranes Neck: Full Range of Motion, Normal Inspection, Non Tender, Supple Respiratory: Chest Non Tender, No Accessory Muscle Use, Crackles, Decreased Breath Sounds (LLL), Other Cardiovascular: No Gallop, No JVD, No Murmur Gastrointestinal: Normal Bowel Sounds, No Organomegaly, No Pulsatile Mass, Non Tender, Soft Back: Normal Inspection, No CVA Tenderness, No Vertebral Tenderness Extremity: No Calf Tenderness, Other (Healing skin tears over the left forearm and left lower extremity with trace bilateral edema to the mid tibia which appears stable. Extremities are warm purpura noted on lower and upper extremities. No evidence for hematoma.) Neurologic/Psychiatric: Alert Skin: Pallor Lymphatic: No Adenopathy Results/Procedures Lab Patient resulted labs reviewed. FIM Transfers Therapy Code Descriptions/Definitions Functional [place] Measure: 0=Not Assessed/NA 4=Minimal Assistance 1=Total Assistance 5=Supervision or Setup 2=Maximal Assistance 6=Modified [place] 3=Moderate Assistance 7=Complete [place] Therapy Quality Codes: 6 Independent with activity with or without an assistive device 5 Patient requires set up or clean up by helper. Patient completes activity by themselves 4 Supervision or touching assist (CGA). [place] provide cues , steadying assist 3 The helper provides less than half the effort to complete the activity 2 The helper provides more than half the effort to complete the activity 1 Dependent. The helper does all the effort to complete an activity 7 Patient refused to complete or attempt activity 9 The patient did not perform the activity before the current illness or injury 88 Not attempted due to Medical conditions or safety concerns Transfers (B, C, W/C) (FIM): 4 Scootin Rollin Roll Left to Right (QC): 5 Supine to/from Sit: 5 Sit to/from Stand: 5 Sit to Lying (QC): 4 Sit to Stand (QC): 4 Chair/Bhk-wy-Hsenr Xfer(QC): 4 Bed to/from Chair: 6 Car Transfer (QC): 6 Gait Training Does the Patient Walk?: Yes Gait (FIM): 5 Distance (FIM): 3=150 ft Distance: 50'x4 Walk 10 feet (QC): 4 Walk 50 ft with 2 Turns(QC): 4 Walk 150 ft (QC): 5 Walking 10ft/uneven surface-QC: 5 Gait Level of Assist: 5 Gait Persons Needed: 1 Gait Assistive Device: FWW Wheelchair Training Does the Pt Use a Wheelchair?: No Stair Training Stair Training: Handrails/: 2 handrails Stairs (FIM): 2 #of Steps: 4 1 Step (curb) (QC): 5 4 Steps (QC): 5 12 Steps (QC): 9 Stairs: Pattern: Step to Level of Assist: 5 Balance Picking up an Object (QC): 88 Mental Status/Objective Comprehension: 7 Expression: 7 Social Interaction: 7 Problem Solvin Memory: 7 ADL-Treatment Feedin Eating (QC): 6 (increased time and use of built up handles. Pt demonstrates frustration with task with fatigued hand muscles. ) Groomin (completes hair grooming at sink wit FWW) Oral Hygiene (QC): 5 (SBA at sink. Use of FWW.) Bathin (SBA during stance. Pt utilizes shower bench within the shower, able to wash all areas without use of AE. ) Shower/Bathe Self (QC): 5 (SUP during showering task, SBA in stance with hyacinth hygiene. Pt completes shower at normal pace with shower curtain closed.) Upper Extremity Dressin (Gathered clothing items. Completed dressing tasks in chair.) Upper Body Dressing (QC): 6 (Completed in chair, pt able to gather clothing items.) Lower Extremity Dressin Lower Body Dressing (QC): 3 (Pt requires threading L LE with both underwear and pants due to fatigue. Pt demonstrates short, shallow breaths during activity; pt educated on self-examining breaths, pt completes pursed lip breathing during task x2 and continues with task.) On/Off Footwear (QC): 6 Toiletin (SBA, intermittent cues to intiate/ terminate activity.) Toileting Hygiene (QC): 5 (SBA) Toilet/Commode Transfer: 5 Toilet Transfer (QC): 5 (SBA stand to sit with use of FWW and grab barsSBA sit to stand with use of grab bars on R hand and L hand pushing from toilet seat) Tub: 5 (SBA. Pt utilizes FWW to back up to shower seat, holds onto grab bars to lower. Good safety awareness and motor control.) Shower: 5 (SBA) Assessment/Plan Assessment and Plan Assess & Plan/Chief Complaint Plan: IRF protocol Supportive care Delirium monitoring ETOH cessation Hold laxatives until needed RLS per PCP consultation Nebs to maintain when necessary Ativan as needed Monitor urinary system and repeat UA during fever revealed no treatable bacteria and no infection Eliquis and aspirin restarted per cardiology Monitor falls UTI s/p Rocephin and Keflex and now Levaquin for pneumonia Needs senior living placement but may want to try home with HH but now decides NH is best that this is being delayed due to new onset left-sided pneumonia diagnosed 01/25/19 Continued and major fall risk IVF fluids DC Lactic acid not due to sepsis (1) Fall Status: Acute Qualifiers: Encounter type: subsequent encounter Qualified Codes: W19.XXXD - Unspecified fall, subsequent encounter (2) Hypokalemia Status: Acute (3) Folate deficiency Status: Acute (4) Pancytopenia Status: Acute (5) Debility Status: Acute (6) Interstitial lung disease Status: Chronic (7) Weight loss, unintentional Status: Chronic (8) CAD (coronary artery disease) Status: Chronic Qualifiers: Coronary Disease-Associated Artery/Lesion type: [place] artery [place] vs. transplanted heart: [place] heart Associated angina: without angina Qualified Codes: I25.10 - Atherosclerotic heart disease of [place] coronary artery without angina pectoris (9) HTN (hypertension) Status: Chronic Qualifiers: Hypertension type: essential hypertension Qualified Codes: I10 - Essential (primary) hypertension (10) Nausea & vomiting Status: Acute Qualifiers: Vomiting type: unspecified (11) Bad odor of urine (12) UTI (urinary tract infection) Status: Acute (13) Skin tear Status: Acute (14) Pneumonia involving left lung (15) Lactic acidemia Status: Acute DUKE ABAD DO Jan 28, 2019 12:34
[2019-01-28] MEDS: LEVOFLOXACIN 750 MG TAB (LEVAQUIN) PO SCH (13:19)
--- NOTE | 2019-01-28 13:20 | Diagnostic Imaging Report ---
INDICATION: Crackles, shortness of air, cough. COMPARISON: Compared 01/25/2019. FINDINGS: There has been interval improvement in patchy nodular bilateral pulmonary infiltrates greater left than right. No new abnormality or adverse development. No effusion or pneumothorax. IMPRESSION: Bilateral infiltrates greater left have improved. There is some superimposed background chronic interstitial opacity in the bases unchanged and there has been no adverse development. Dictated by: Dictated on workstation # [id number]
--- NOTE | 2019-01-28 16:50 | NUR ---
Micro calls this RN and states "Patient is positive for VRE in the urine." This RN reported finding to Dr. Groves at this time. Dr. Groves states, " I stated in my notes that it's polymicrobial and does not need treated." No new orders at this time. Will isolate patient per protocol and continue to monitor.
[2019-01-28 18:19] VITALS: BP 128/70
[2019-01-28] MEDS: MONTELUKAST 10 MG (SINGULAIR) TAB PO SCH (20:16)
[2019-01-29 05:17] VITALS: BP 159/85
[2019-01-29] MEDS: MULTIVIT W/MINERALS TAB (THERAGRAN M) PO SCH (06:22)
[2019-01-29] MEDS: HYDROcodone/APAP 5 MG/325 MG (LORTAB) TAB PO PRN (06:22)
[2019-01-29] MEDS: FOLIC ACID 1 MG TAB PO SCH (06:22)
[2019-01-29 06:24] LABS: BASOPHILS # (AUTO) 0.1 10^3/uL (0.0-0.1); BASOPHILS % (AUTO) 1 % (0-10); EOSINOPHILS # (AUTO) 0.2 10^3/uL (0.0-0.3); EOSINOPHILS % (AUTO) 3 % (0-10); HEMATOCRIT 31 % (40-54); HEMOGLOBIN 10.1 G/DL (13.3-17.7); LYMPHOCYTES # (AUTO) 1.2 X 10^3 (1.0-4.0); LYMPHOCYTES % (AUTO) 21 % (12-44); MEAN CORPUSCULAR HEMOGLOBIN 33 PG (25-34); MEAN CORPUSCULAR HGB CONC 32 G/DL (32-36); MEAN CORPUSCULAR VOLUME 103 FL (80-99); MEAN PLATELET VOLUME 10.6 FL (7.4-10.4); MONOCYTES # (AUTO) 0.6 X 10^3 (0.0-1.0); MONOCYTES % (AUTO) 11 % (0-12); NEUTROPHILS # (AUTO) 3.7 X 10^3 (1.8-7.8); NEUTROPHILS % (AUTO) 65 % (42-75); PLATELET COUNT 222 10^3/uL (130-400); WHITE BLOOD COUNT 5.8 10^3/uL (4.3-11.0)
[2019-01-29 06:50] LABS: ALANINE AMINOTRANSFERASE 14 U/L (0-55); ALBUMIN 2.6 GM/DL (3.2-4.5); ALKALINE PHOSPHATASE 95 U/L (40-136); BILIRUBIN,TOTAL 0.4 MG/DL (0.1-1.0); BUN/CREATININE RATIO 8; CALCIUM 8.4 MG/DL (8.5-10.1); CARBON DIOXIDE 24 MMOL/L (21-32); CHLORIDE 107 MMOL/L (98-107); CREATININE SERUM 1.05 MG/DL (0.60-1.30); GFR ESTIMATED > 60; GLUCOSE 86 MG/DL (70-105); POTASSIUM 3.8 MMOL/L (3.6-5.0); SODIUM 138 MMOL/L (135-145); TOTAL PROTEIN 5.9 GM/DL (6.4-8.2)
[2019-01-29] MEDS ORDERED: LEVA1.2543 INH (08:15)
[2019-01-29] MEDS ORDERED: AMLO5TAB9 PO (08:15)
[2019-01-29] MEDS ORDERED: MONT10TA24 PO (08:15)
[2019-01-29] MEDS ORDERED: RPN.25T PO (08:15)
[2019-01-29] MEDS ORDERED: LORA10TA7 PO (08:15)
[2019-01-29] MEDS ORDERED: Multivitamins/Minerals Therap PO (08:15)
[2019-01-29] MEDS ORDERED: FURO40TA4 PO (08:15)
[2019-01-29] MEDS ORDERED: LORA0.5T PO (08:15)
[2019-01-29] MEDS ORDERED: METO-395 PO ×2 (08:15)
[2019-01-29] MEDS ORDERED: LEVO750T39 PO (08:15)
[2019-01-29] MEDS ORDERED: POTA10TA6 PO (08:15)
[2019-01-29] MEDS ORDERED: ACHD5005 PO (08:15)
[2019-01-29] MEDS ORDERED: ASPI-999 PO (08:15)
[2019-01-29] MEDS ORDERED: APIX2.5T PO (08:15)
--- NOTE | 2019-01-29 08:17 | Discharge Summary ---
Discharge Summary Reconcile Patient Problems Problems Reviewed?: Yes Hospital Course Hospital Course Date of Admission: Jan 08, 2019 at 11:41 Admission Diagnosis : Family Physician/Provider: Amilcar Macias MD Date of Discharge: 01/29/19 Discharge Diagnosis: AF, CHF, ETOHism, Severe debility, LLL Pneumonia Labs and Pending Lab Test: Laboratory Tests 01/29/19 05:14: Sodium Level 138, Potassium Level 3.8, Chloride Level 107, Carbon Dioxide Level 24, Anion Gap 7, Blood Urea Nitrogen 8, Creatinine 1.05, Estimat Glomerular Filtration Rate > 60, BUN/Creatinine Ratio 8, Glucose Level 86, Calcium Level 8.4L, Corrected Calcium 9.5, Total Bilirubin 0.4, Aspartate Amino Transf (AST/SGOT) 26, Alanine Aminotransferase (ALT/SGPT) 14, Alkaline Phosphatase 95, Total Protein 5.9L, Albumin 2.6L 01/29/19 05:34: White Blood Count 5.8, Red Blood Count 3.03L, Hemoglobin 10.1L, Hematocrit 31L, Mean Corpuscular Volume 103H, Mean Corpuscular Hemoglobin 33, Mean Corpuscular Hemoglobin Concent 32, Red Cell Distribution Width 15.0H, Platelet Count 222, Mean Platelet Volume 10.6H, Neutrophils (%) (Auto) 65, Lymphocytes (%) (Auto) 21, Monocytes (%) (Auto) 11, Eosinophils (%) (Auto) 3, Basophils (%) (Auto) 1, Neutrophils # (Auto) 3.7, Lymphocytes # (Auto) 1.2, Monocytes # (Auto) 0.6, Eosinophils # (Auto) 0.2, Basophils # (Auto) 0.1 Microbiology 01/25/19 Urine Culture - Final, Complete Enterococcus faecium Gram Pos Mixed Bacterial Rita Home Meds Active Lisinopril 20 Mg Tablet 20 Mg PO DAILY 90 Days Folic Acid 1 Mg Tablet 1 Mg PO DAILY@0700 90 Days Reported Molina Morrow 24,000 Units Capsule (Lipase/Protease/Amylase) 1 Each Capsule. 1 Cap PO DAILY PRN Reglan (Metoclopramide HCl) 10 Mg Tablet 10 Mg PO Q6H PRN Spiriva Respimat 2.5MCG/ACTUATION (Tiotropium [place]) 4 Gm Mist.inhal 2 Puff IH DAILY PRN Proair Hfa (Albuterol Sulfate) 1 Puff Puff 2 Puff IH QID PRN Artificial Tears (Dextran 70/Hypromellose) 1 Each Droperette 1 Drop OU QID PRN Metoprolol Succinate 100 Mg Tab.er.24h 100 Mg PO DAILY LAST FILLED #30 10-20- Omeprazole 20 Mg Capsule.dr 20 Mg PO DAILY Losartan Potassium 100 Mg Tablet 100 Mg PO DAILY Instructions to Patient/Family Assessment/Instructions Dr Macias in 1 week Follow Up Appt.: Admit to [facility] to Dr Macias Skilled NF Admit to: [facility] Certification ([facility]) I certify that [facility] services are required to be given on an inpatient basis because of the above named patient's need for fci care on a continuing basis for the conditions(s) for which he/she was receiving inpatient hospital services prior to his/her transfer to the [facility]. [facility] Facility Order: Nursing Services, [facility] Technician-Evaluate & Treat, Physical Therapy-Evaluate & Treat Oxygen Delivery Method: Room Air Discharge Diet: Cardiac Diet Resuscitation Status: Full Code Citlali Groves Jan 29, 2019 08:16 Discharge Physical Exam General: Alert, Oriented X3, Cooperative Lungs: Clear to Auscultation Heart: Regular Rate Abdomen: Normal Bowel Sounds Psych/Mental Status: Mental Status NL, Mood NL CITLALI GROVES DO Jan 29, 2019 08:17
--- NOTE | 2019-01-29 08:18 | Discharge Summary ---
Diagnosis/Chief Complaint Date of Admission Jan 08, 2019 at 11:41 Date of Discharge Discharge Date: Jan 29, 2019 Discharge Diagnosis Plan: IRF protocol Supportive care Delirium monitoring ETOH cessation Hold laxatives until needed RLS per PCP consultation Nebs to maintain when necessary Ativan as needed Monitor urinary system Eliquis and aspirin restarted per cardiology Monitor falls UTI acute placed on Rocephin empirically now discontinued and started on Keflex due to pansensitive Escherichia coli Needs [facility] placement but may want to try home with HH but now decides NH is best that this is being delayed due to new onset left-sided pneumonia diagnosed 01/25/19 Continued and major fall risk (1) Fall Status: Acute Qualifiers: Encounter type: subsequent encounter Qualified Codes: W19.XXXD - Unspecified fall, subsequent encounter (2) Hypokalemia Status: Acute (3) Folate deficiency Status: Acute (4) Pancytopenia Status: Acute (5) Debility Status: Acute (6) Interstitial lung disease Status: Chronic (7) Weight loss, unintentional Status: Chronic (8) CAD (coronary artery disease) Status: Chronic Qualifiers: Coronary Disease-Associated Artery/Lesion type: [place] artery [place] vs. transplanted heart: [place] heart Associated angina: without angina Qualified Codes: I25.10 - Atherosclerotic heart disease of [place] coronary artery without angina pectoris (9) HTN (hypertension) Status: Chronic Qualifiers: Hypertension type: essential hypertension Qualified Codes: I10 - Essential (primary) hypertension (10) Nausea & vomiting Status: Acute Qualifiers: Vomiting type: unspecified (11) Bad odor of urine (12) UTI (urinary tract infection) Status: Acute (13) Skin tear Status: Acute (14) Pneumonia involving left lung Discharge Summary Discharge Physical Examination Allergies: Coded Allergies: Sulfa (Sulfonamide Antibiotics) (Verified Allergy, Unknown, 05/18/16) meperidine (Verified Allergy, Unknown, PATIENT TOLERATES FENTANYL, 01/08/19) Vitals & I&Os Vital Signs Date Time Temp Pulse Resp B/P (MAP) Pulse Ox O2 Delivery O2 Flow Rate FiO2 01/29/19 14:18 01/29/19 08:10 Room Air 01/29/19 05:17 36.5 77 22 96 General Appearance: Alert, Oriented X3, Cooperative, Other (chronic debilitated) Respiratory: Clear to Auscultation Cardiovascular: Regular Rate Neuro: Normal Gait, Normal Speech, Strength at 5/5 X4 Ext Psych/Mental Status: Mental Status NL, Mood NL Hospital Course Was the Problem List Reviewed?: Yes Hospital Course: Pt had a lengthy hospital course for 3 weeks that was mostly uncomplicated until the last few days when he began having crackles and her and a white count showing a left lower lobe pneumonia on chest X-ray. Pt placed on Levaquin and did not require any aggressive treatment but lactic acid was elevated later on not due to sepsis likely due to overall debility and muscle wasting but his WC was normal at time of DC and he participated in all therapies but due to the very debilitated state and multiple falls that continue to be an issues and longstanding alcoholism and overall poor recoverability he was DC to [facility] on swing bed status under Dr. Ba's service and will have close follow sup wit him. Poor prognosis and unable to modify any factors to prevent readmissions. Urine culture showed VRE and polymicrobial not a significant infection since UA showed no white cells. Labs (last 24 hrs) Laboratory Tests 01/08/19 11:41: Lab Scanned Report Referred Lab Report 01/10/19 06:30: White Blood Count 12.0H, Red Blood Count 2.73L, Hemoglobin 9.3L, Hematocrit 29L, Mean Corpuscular Volume 105H, Mean Corpuscular Hemoglobin 34, Mean Corpuscular Hemoglobin Concent 32, Red Cell Distribution Width 16.0H, Platelet Count 269, Mean Platelet Volume 9.9, Sodium Level 135, Potassium Level 3.9, Chloride Level 102, Carbon Dioxide Level 23, Anion Gap 10, Blood Urea Nitrogen 15, Creatinine 1.33H, Estimat Glomerular Filtration Rate 53, BUN/Creatinine Ratio 11, Glucose Level 107H, Calcium Level 9.1 01/10/19 17:05: White Blood Count 11.2H, Red Blood Count 2.83L, Hemoglobin 9.9L, Hematocrit 30L, Mean Corpuscular Volume 105H, Mean Corpuscular Hemoglobin 35H, Mean Corpuscular Hemoglobin Concent 33, Red Cell Distribution Width 15.5H, Platelet Count 260, Mean Platelet Volume 10.2, Neutrophils (%) (Auto) 84H, Lymphocytes (%) (Auto) 8L , Monocytes (%) (Auto) 9, Eosinophils (%) (Auto) 0, Basophils (%) (Auto) 0, Neutrophils # (Auto) 9.4H, Lymphocytes # (Auto) 0.9L, Monocytes # (Auto) 1.0, Eosinophils # (Auto) 0.0, Basophils # (Auto) 0.0, Neutrophils % (Manual) 86, Lymphocytes % (Manual) 8, Monocytes % (Manual) 6, Hypochromasia MODERATE, Anisocytosis SLIGHT, Absolute Reticulocyte Count 84, Percent Reticulocyte Count 2.97H, Vitamin B12 Level 552, Folate 12.5 01/11/19 05:15: White Blood Count 12.7H, Red Blood Count 2.79L, Hemoglobin 9.7L, Hematocrit 29L, Mean Corpuscular Volume 105H, Mean Corpuscular Hemoglobin 35H, Mean Corpuscular Hemoglobin Concent 33, Red Cell Distribution Width 15.4H, Platelet Count 238, Mean Platelet Volume 10.1, Sodium Level 138, Potassium Level 3.9, Chloride Level 102, Carbon Dioxide Level 23, Anion Gap 13, Blood Urea Nitrogen 14, Creatinine 1.29, Estimat Glomerular Filtration Rate 55, BUN/Creatinine Ratio 11, Glucose Level 114H, Calcium Level 6.7L, Magnesium Level 1.8 01/12/19 05:10: Sodium Level 137, Potassium Level 3.8, Chloride Level 103, Carbon Dioxide Level 26, Anion Gap 8, Blood Urea Nitrogen 13, Creatinine 1.20, Estimat Glomerular Filtration Rate 60, BUN/Creatinine Ratio 11, Glucose Level 98, Calcium Level 8.4L, Magnesium Level 2.1 01/15/19 05:22: Sodium Level 140, Potassium Level 3.4L, Chloride Level 104, Carbon Dioxide Level 23, Anion Gap 13, Blood Urea Nitrogen 10, Creatinine 0.96, Estimat Glomerular Filtration Rate > 60, BUN/Creatinine Ratio 10, Glucose Level 107H, Calcium Level 8.1L, Magnesium Level 1.8, White Blood Count 15.6H, Red Blood Count 3.00L, Hemoglobin 10.3L, Hematocrit 32L, Mean Corpuscular Volume 106H, Mean Corpuscular Hemoglobin 34, Mean Corpuscular Hemoglobin Concent 33, Red Cell Distribution Width 15.2H, Platelet Count 338, Mean Platelet Volume 10.5H, Neutrophils (%) (Auto) 80H, Lymphocytes (%) (Auto) 12, Monocytes (%) (Auto) 7, Eosinophils (%) (Auto) 1, Basophils (%) (Auto) 0, Neutrophils # (Auto) 12.5H, Lymphocytes # (Auto) 1.8, Monocytes # (Auto) 1.2H, Eosinophils # (Auto) 0.2, Basophils # (Auto) 0.0, Neutrophils % (Manual) 80, Lymphocytes % (Manual) 10, Monocytes % (Manual) 9, Eosinophils % (Manual) 1, Poikilocytosis SLIGHT, Anisocytosis SLIGHT, Macrocytosis SLIGHT, Spherocytes SLIGHT, Corrected Calcium 9.0, Total Bilirubin 0.5, Aspartate Amino Transf (AST/SGOT) 18, Alanine Aminotransferase (ALT/SGPT) 17, Alkaline Phosphatase 74, Total Protein 5.9L, Albumin 2.9L 01/16/19 06:20: Sodium Level 140, Potassium Level 3.8, Chloride Level 107, Carbon Dioxide Level 26, Anion Gap 7, Blood Urea Nitrogen 9, Creatinine 0.90, Estimat Glomerular Filtration Rate > 60, BUN/Creatinine Ratio 10, Glucose Level 108H, Calcium Level 8.2L, Magnesium Level 1.8, White Blood Count 10.6, Red Blood Count 2.83L, Hemoglobin 9.9L, Hematocrit 30L, Mean Corpuscular Volume 107H, Mean Corpuscular Hemoglobin 35H, Mean Corpuscular Hemoglobin Concent 33, Red Cell Distribution Width 15.5H, Platelet Count 344, Mean Platelet Volume 9.4, Neutrophils (%) (Auto) 80H, Lymphocytes (%) (Auto) 11L, Monocytes (%) (Auto) 8, Eosinophils (%) (Auto) 1, Basophils (%) (Auto) 0, Neutrophils # (Auto) 8.5H, Lymphocytes # (Auto) 1.2, Monocytes # (Auto) 0.8, Eosinophils # (Auto) 0.2, Basophils # (Auto) 0.0 01/19/19 18:33: Sodium Level 139, Potassium Level 3.8, Chloride Level 106, Carbon Dioxide Level 25, Anion Gap 8, Blood Urea Nitrogen 12, Creatinine 1.01, Estimat Glomerular Filtration Rate > 60, BUN/Creatinine Ratio 12, Glucose Level 129H, Calcium Level 8.2L, White Blood Count 12.1H, Red Blood Count 2.87L, Hemoglobin 9.8L, Hematocrit 31L, Mean Corpuscular Volume 106H, Mean Corpuscular Hemoglobin 34, Mean Corpuscular Hemoglobin Concent 32, Red Cell Distribution Width 16.7H, Platelet Count 293, Mean Platelet Volume 9.4, Neutrophils (%) (Auto) 82H, Lymphocytes (%) (Auto) 9L, Monocytes (%) (Auto) 7, Eosinophils (%) (Auto) 1, Basophils (%) (Auto) 0, Neutrophils # (Auto) 9.9H, Lymphocytes # (Auto) 1.1, Monocytes # (Auto) 0.9, Eosinophils # (Auto) 0.2, Basophils # (Auto) 0.0, Corrected Calcium 9.2, Total Bilirubin 0.4, Aspartate Amino Transf (AST/SGOT) 20, Alanine Aminotransferase (ALT/SGPT) 20, Alkaline Phosphatase 78, Total Protein 5.4L, Albumin 2.7L 01/19/19 20:30: Urine Color YELLOW, Urine Clarity SL CLOUDY, Urine pH 6, Urine Specific [place] 1.015L, Urine Protein 2+H, Urine Glucose (UA) NEGATIVE, Urine Ketones NEGATIVE, Urine Nitrite POSITIVEH, Urine Bilirubin NEGATIVE, Urine Urobilinogen 1, Urine Leukocyte Esterase 3+H, Urine RBC (Auto) 2+H, Urine RBC RARE, Urine WBC 50-100H, Urine Squamous Epithelial Cells NONE, Urine Crystals NONE, Urine Bacteria LARGEH , Urine Casts NONE, Urine Mucus SMALLH, Urine Culture Indicated YES 01/20/19 06:15: White Blood Count 10.1, Red Blood Count 2.85L, Hemoglobin 9.8L, Hematocrit 30L, Mean Corpuscular Volume 106H, Mean Corpuscular Hemoglobin 34, Mean Corpuscular Hemoglobin Concent 32, Red Cell Distribution Width 16.5H, Platelet Count 269, Mean Platelet Volume 9.5, Neutrophils (%) (Auto) 82H, Lymphocytes (%) (Auto) 9L, Monocytes (%) (Auto) 8, Eosinophils (%) (Auto) 1, Basophils (%) (Auto) 0, Neutrophils # (Auto) 8.3H, Lymphocytes # (Auto) 0.9L, Monocytes # (Auto) 0.8, Eosinophils # (Auto) 0.1, Basophils # (Auto) 0.0, Sodium Level 138, Potassium Level 3.9, Chloride Level 106, Carbon Dioxide Level 24, Anion Gap 8, Blood Urea Nitrogen 12, Creatinine 0.95, Estimat Glomerular Filtration Rate > 60, BUN/Creatinine Ratio 13, Glucose Level 129H, Calcium Level 8.1L, Corrected Calcium 9.2, Total Bilirubin 0.3, Aspartate Amino Transf (AST/SGOT) 18, Alanine Aminotransferase (ALT/SGPT) 17, Alkaline Phosphatase 89, Total Protein 5.3L, Albumin 2.6L 01/22/19 05:55: White Blood Count 10.7, Red Blood Count 3.06L, Hemoglobin 10.3L, Hematocrit 33L, Mean Corpuscular Volume 107H, Mean Corpuscular Hemoglobin 34, Mean Corpuscular Hemoglobin Concent 32, Red Cell Distribution Width 16.3H, Platelet Count 258, Mean Platelet Volume 9.8, Neutrophils (%) (Auto) 74, Lymphocytes (%) (Auto) 15, Monocytes (%) (Auto) 9, Eosinophils (%) (Auto) 2, Basophils (%) (Auto) 0, Neutrophils # (Auto) 7.9H, Lymphocytes # (Auto) 1.7, Monocytes # (Auto) 0.9, Eosinophils # (Auto) 0.2, Basophils # (Auto) 0.0, Sodium Level 139, Potassium Level 4.1, Chloride Level 105, Carbon Dioxide Level 27, Anion Gap 7, Blood Urea Nitrogen 10, Creatinine 0.94, Estimat Glomerular Filtration Rate > 60, BUN/Creatinine Ratio 11, Glucose Level 73, Calcium Level 8.2L, Corrected Calcium 9.2, Total Bilirubin 0.2, Aspartate Amino Transf (AST/SGOT) 17, Alanine Aminotransferase (ALT/SGPT) 16, Alkaline Phosphatase 83, Total Protein 6.1L, Albumin 2.7L 01/25/19 19:00: White Blood Count 13.5H, Red Blood Count 3.24L, Hemoglobin 11.0L, Hematocrit 34L , Mean Corpuscular Volume 105H, Mean Corpuscular Hemoglobin 34, Mean Corpuscular Hemoglobin Concent 32, Red Cell Distribution Width 16.1H, Platelet Count 263, Mean Platelet Volume 9.9, Neutrophils (%) (Auto) 77H, Lymphocytes (%) (Auto) 13, Monocytes (%) (Auto) 10, Eosinophils (%) (Auto) 1, Basophils (%) (Auto) 0, N eutrophils # (Auto) 10.3H, Lymphocytes # (Auto) 1.8, Monocytes # (Auto) 1.3H, Eosinophils # (Auto) 0.1, Basophils # (Auto) 0.0, Sodium Level 137, Potassium Level 4.2, Chloride Level 103, Carbon Dioxide Level 24, Anion Gap 10, Blood Urea Nitrogen 12, Creatinine 1.17, Estimat Glomerular Filtration Rate > 60, BUN/Creatinine Ratio 10, Glucose Level 111H, Calcium Level 8.4L, Corrected Calcium 9.4, Total Bilirubin 0.7, Aspartate Amino Transf (AST/SGOT) 16, Alanine Aminotransferase (ALT/SGPT) 15, Alkaline Phosphatase 106, Total Protein 6.1L, Albumin 2.7L, Lactic Acid Level 0.94 01/25/19 20:45: Urine Color YELLOW, Urine Clarity CLEAR, Urine pH 8, Urine Specific [place] 1.010L, Urine Protein NEGATIVE, Urine Glucose (UA) NEGATIVE, Urine Ketones NEGATIVE, Urine Nitrite NEGATIVE, Urine Bilirubin NEGATIVE, Urine Urobilinogen NORMAL, Urine Leukocyte Esterase 1+H, Urine RBC (Auto) 3+H, Urine RBC >100H, Urine WBC 2-5, Urine Squamous Epithelial Cells 0-2, Urine Crystals NONE, Urine Bacteria TRACE, Urine Casts NONE, Urine Mucus NEGATIVE, Urine Culture Indicated YES 01/26/19 05:23: White Blood Count 14.6H, Red Blood Count 2.99L, Hemoglobin 10.1L, Hematocrit 31L , Mean Corpuscular Volume 105H, Mean Corpuscular Hemoglobin 34, Mean Corpuscular Hemoglobin Concent 32, Red Cell Distribution Width 16.3H, Platelet Count 238, Mean Platelet Volume 10.6H, Neutrophils (%) (Auto) 81H, Lymphocytes (%) (Auto) 8L, Monocytes (%) (Auto) 10, Eosinophils (%) (Auto) 0, Basophils (%) (Auto) 0, Neutrophils # (Auto) 11.9H, Lymphocytes # (Auto) 1.2, Monocytes # (Auto) 1.4H, Eosinophils # (Auto) 0.1, Basophils # (Auto) 0.0, Sodium Level 135, Potassium Level 4.3, Chloride Level 103, Carbon Dioxide Level 21, Anion Gap 11, Blood Urea Nitrogen 13, Creatinine 1.15, Estimat Glomerular Filtration Rate > 60, BUN/Creatinine Ratio 11, Glucose Level 103, Calcium Level 8.5, Corrected Calcium 9.6, Total Bilirubin 1.0, Aspartate Amino Transf (AST/SGOT) 16, Alanine Aminotransferase (ALT/SGPT) 15, Alkaline Phosphatase 101, Total Protein 5.8L, Albumin 2.6L 01/27/19 10:45: White Blood Count 7.6, Red Blood Count 2.98L, Hemoglobin 10.1L, Hematocrit 31L, Mean Corpuscular Volume 104H, Mean Corpuscular Hemoglobin 34, Mean Corpuscular Hemoglobin Concent 33, Red Cell Distribution Width 15.7H, Platelet Count 241, Mean Platelet Volume 10.4, Neutrophils (%) (Auto) 72, Lymphocytes (%) (Auto) 15, Monocytes (%) (Auto) 10, Eosinophils (%) (Auto) 3, Basophils (%) (Auto) 0, Neutrophils # (Auto) 5.5, Lymphocytes # (Auto) 1.1, Monocytes # (Auto) 0.8, Eosinophils # (Auto) 0.2, Basophils # (Auto) 0.0, Sodium Level 137, Potassium Level 3.6, Chloride Level 106, Carbon Dioxide Level 21, Anion Gap 10, Blood Urea Nitrogen 15, Creatinine 1.23, Estimat Glomerular Filtration Rate 58, BUN/Creatinine Ratio 12, Glucose Level 158H, Calcium Level 8.4L, Corrected Calcium 9.6, Total Bilirubin 0.3, Aspartate Amino Transf (AST/SGOT) 17, Alanine Aminotransferase (ALT/SGPT) 11, Alkaline Phosphatase 104, Total Protein 5.8L, Albumin 2.5L, Neutrophils % (Manual) 73, Lymphocytes % (Manual) 13, Monocytes % (Manual) 7, Eosinophils % (Manual) 4, Band Neutrophils 3, Blood Morphology Comment NORMAL, Lactic Acid Level 2.44*H 01/27/19 13:00: Lactic Acid Level 1.53 01/27/19 16:34: Lactic Acid Level 2.36*H 01/29/19 05:14: Sodium Level 138, Potassium Level 3.8, Chloride Level 107, Carbon Dioxide Level 24, Anion Gap 7, Blood Urea Nitrogen 8, Creatinine 1.05, Estimat Glomerular Filtration Rate > 60, BUN/Creatinine Ratio 8, Glucose Level 86, Calcium Level 8.4L, Corrected Calcium 9.5, Total Bilirubin 0.4, Aspartate Amino Transf (AST/SGOT) 26, Alanine Aminotransferase (ALT/SGPT) 14, Alkaline Phosphatase 95, Total Protein 5.9L, Albumin 2.6L 01/29/19 05:34: White Blood Count 5.8, Red Blood Count 3.03L, Hemoglobin 10.1L, Hematocrit 31L, Mean Corpuscular Volume 103H, Mean Corpuscular Hemoglobin 33, Mean Corpuscular Hemoglobin Concent 32, Red Cell Distribution Width 15.0H, Platelet Count 222, Mean Platelet Volume 10.6H, Neutrophils (%) (Auto) 65, Lymphocytes (%) (Auto) 21, Monocytes (%) (Auto) 11, Eosinophils (%) (Auto) 3, Basophils (%) (Auto) 1, Neutrophils # (Auto) 3.7, Lymphocytes # (Auto) 1.2, Monocytes # (Auto) 0.6, Eosinophils # (Auto) 0.2, Basophils # (Auto) 0.1 Microbiology 01/25/19 Urine Culture - Final, Complete Enterococcus faecium Gram Pos Mixed Bacterial Rita Pending Labs Microbiology Date/Time Source Procedure Growth Status 01/25/19 20:45 Urine Voided Urine Urine Culture - Final Enterococcus faecium Gram Pos Mixed Bacterial Rita Complete 01/19/19 20:30 Urine Clean Catch Urine Culture - Final Escherichia coli Complete Laboratory Tests 01/08/19 11:41: Lab Scanned Report Referred Lab Report 01/10/19 06:30: White Blood Count 12.0, Red Blood Count 2.73, Hemoglobin 9.3, Hematocrit 29, Mean Corpuscular Volume 105, Mean Corpuscular Hemoglobin 34, Mean Corpuscular Hemoglobin Concent 32, Red Cell Distribution Width 16.0, Platelet Count 269, Mean Platelet Volume 9.9, Sodium Level 135, Potassium Level 3.9, Chloride Level 102, Carbon Dioxide Level 23, Anion Gap 10, Blood Urea Nitrogen 15, Creatinine 1.33, Estimat Glomerular Filtration Rate 53, BUN/Creatinine Ratio 11, Glucose Level 107, Calcium Level 9.1 01/10/19 17:05: White Blood Count 11.2, Red Blood Count 2.83, Hemoglobin 9.9, Hematocrit 30, Mean Corpuscular Volume 105, Mean Corpuscular Hemoglobin 35, Mean Corpuscular Hemoglobin Concent 33, Red Cell Distribution Width 15.5, Platelet Count 260, Mean Platelet Volume 10.2, Neutrophils (%) (Auto) 84, Lymphocytes (%) (Auto) 8, Monocytes (%) (Auto) 9, Eosinophils (%) (Auto) 0, Basophils (%) (Auto) 0, Neutrophils # (Auto) 9.4, Lymphocytes # (Auto) 0.9, Monocytes # (Auto) 1.0, Eosinophils # (Auto) 0.0, Basophils # (Auto) 0.0, Neutrophils % (Manual) 86, Lymphocytes % (Manual) 8, Monocytes % (Manual) 6, Hypochromasia MODERATE, Anisocytosis SLIGHT, Absolute Reticulocyte Count 84, Percent Reticulocyte Count 2.97, Vitamin B12 Level 552, Folate 12.5 01/11/19 05:15: White Blood Count 12.7, Red Blood Count 2.79, Hemoglobin 9.7, Hematocrit 29, Mean Corpuscular Volume 105, Mean Corpuscular Hemoglobin 35, Mean Corpuscular Hemoglobin Concent 33, Red Cell Distribution Width 15.4, Platelet Count 238, Mean Platelet Volume 10.1, Sodium Level 138, Potassium Level 3.9, Chloride Level 102, Carbon Dioxide Level 23, Anion Gap 13, Blood Urea Nitrogen 14, Creatinine 1.29, Estimat Glomerular Filtration Rate 55, BUN/Creatinine Ratio 11, Glucose Level 114, Calcium Level 6.7, Magnesium Level 1.8 01/12/19 05:10: Sodium Level 137, Potassium Level 3.8, Chloride Level 103, Carbon Dioxide Level 26, Anion Gap 8, Blood Urea Nitrogen 13, Creatinine 1.20, Estimat Glomerular Filtration Rate 60, BUN/Creatinine Ratio 11, Glucose Level 98, Calcium Level 8.4, Magnesium Level 2.1 01/15/19 05:22: Sodium Level 140, Potassium Level 3.4, Chloride Level 104, Carbon Dioxide Level 23, Anion Gap 13, Blood Urea Nitrogen 10, Creatinine 0.96, Estimat Glomerular Filtration Rate > 60, BUN/Creatinine Ratio 10, Glucose Level 107, Calcium Level 8.1, Magnesium Level 1.8, White Blood Count 15.6, Red Blood Count 3.00, Hemoglobin 10.3, Hematocrit 32, Mean Corpuscular Volume 106, Mean Corpuscular Hemoglobin 34, Mean Corpuscular Hemoglobin Concent 33, Red Cell Distribution Width 15.2, Platelet Count 338, Mean Platelet Volume 10.5, Neutrophils (%) (Auto) 80, Lymphocytes (%) (Auto) 12, Monocytes (%) (Auto) 7, Eosinophils (%) (Auto) 1, Basophils (%) (Auto) 0, Neutrophils # (Auto) 12.5, Lymphocytes # (Auto) 1.8, Monocytes # (Auto) 1.2, Eosinophils # (Auto) 0.2, Basophils # (Auto) 0.0, Neutrophils % (Manual) 80, Lymphocytes % (Manual) 10, Monocytes % (Manual) 9, Eosinophils % (Manual) 1, Poikilocytosis SLIGHT, Anisocytosis SLIGHT, Macrocytosis SLIGHT, Spherocytes SLIGHT, Corrected Calcium 9.0, Total Bilirubin 0.5, Aspartate Amino Transf (AST/SGOT) 18, Alanine Aminotransferase (ALT/SGPT) 17, Alkaline Phosphatase 74, Total Protein 5.9, Albumin 2.9 01/16/19 06:20: Sodium Level 140, Potassium Level 3.8, Chloride Level 107, Carbon Dioxide Level 26, Anion Gap 7, Blood Urea Nitrogen 9, Creatinine 0.90, Estimat Glomerular Filtration Rate > 60, BUN/Creatinine Ratio 10, Glucose Level 108, Calcium Level 8.2, Magnesium Level 1.8, White Blood Count 10.6, Red Blood Count 2.83, Hemoglobin 9.9, Hematocrit 30, Mean Corpuscular Volume 107, Mean Corpuscular Hemoglobin 35, Mean Corpuscular Hemoglobin Concent 33, Red Cell Distribution Width 15.5, Platelet Count 344, Mean Platelet Volume 9.4, Neutrophils (%) (Auto) 80, Lymphocytes (%) (Auto) 11, Monocytes (%) (Auto) 8, Eosinophils (%) (Auto) 1, Basophils (%) (Auto) 0, Neutrophils # (Auto) 8.5, Lymphocytes # (Auto) 1.2, Monocytes # (Auto) 0.8, Eosinophils # (Auto) 0.2, Basophils # (Auto) 0.0 01/19/19 18:33: Sodium Level 139, Potassium Level 3.8, Chloride Level 106, Carbon Dioxide Level 25, Anion Gap 8, Blood Urea Nitrogen 12, Creatinine 1.01, Estimat Glomerular Filtration Rate > 60, BUN/Creatinine Ratio 12, Glucose Level 129, Calcium Level 8.2, White Blood Count 12.1, Red Blood Count 2.87, Hemoglobin 9.8, Hematocrit 31, Mean Corpuscular Volume 106, Mean Corpuscular Hemoglobin 34, Mean Corpuscular Hemoglobin Concent 32, Red Cell Distribution Width 16.7, Platelet Count 293, Mean Platelet Volume 9.4, Neutrophils (%) (Auto) 82, Lymphocytes (%) (Auto) 9, Monocytes (%) (Auto) 7, Eosinophils (%) (Auto) 1, Basophils (%) (Auto) 0, Neutrophils # (Auto) 9.9, Lymphocytes # (Auto) 1.1, Monocytes # (Auto) 0.9, Eosinophils # (Auto) 0.2, Basophils # (Auto) 0.0, Corrected Calcium 9.2, Total Bilirubin 0.4, Aspartate Amino Transf (AST/SGOT) 20, Alanine Aminotransferase (ALT/SGPT) 20, Alkaline Phosphatase 78, Total Protein 5.4, Albumin 2.7 01/19/19 20:30: Urine Color YELLOW, Urine Clarity SL CLOUDY, Urine pH 6, Urine Specific [place] 1.015, Urine Protein 2+, Urine Glucose (UA) NEGATIVE, Urine Ketones NEGATIVE, Ur ine Nitrite POSITIVE, Urine Bilirubin NEGATIVE, Urine Urobilinogen 1, Urine Leukocyte Esterase 3+, Urine RBC (Auto) 2+, Urine RBC RARE, Urine WBC 50-100, Urine Squamous Epithelial Cells NONE, Urine Crystals NONE, Urine Bacteria LARGE, Urine Casts NONE, Urine Mucus SMALL, Urine Culture Indicated YES 01/20/19 06:15: White Blood Count 10.1, Red Blood Count 2.85, Hemoglobin 9.8, Hematocrit 30, Mean Corpuscular Volume 106, Mean Corpuscular Hemoglobin 34, Mean Corpuscular Hemoglobin Concent 32, Red Cell Distribution Width 16.5, Platelet Count 269, Mean Platelet Volume 9.5, Neutrophils (%) (Auto) 82, Lymphocytes (%) (Auto) 9, Monocytes (%) (Auto) 8, Eosinophils (%) (Auto) 1, Basophils (%) (Auto) 0, Neutrophils # (Auto) 8.3, Lymphocytes # (Auto) 0.9, Monocytes # (Auto) 0.8, Eosinophils # (Auto) 0.1, Basophils # (Auto) 0.0, Sodium Level 138, Potassium Level 3.9, Chloride Level 106, Carbon Dioxide Level 24, Anion Gap 8, Blood Urea Nitrogen 12, Creatinine 0.95, Estimat Glomerular Filtration Rate > 60, BUN/Creatinine Ratio 13, Glucose Level 129, Calcium Level 8.1, Corrected Calcium 9.2, Total Bilirubin 0.3, Aspartate Amino Transf (AST/SGOT) 18, Alanine Aminotransferase (ALT/SGPT) 17, Alkaline Phosphatase 89, Total Protein 5.3, Albumin 2.6 01/22/19 05:55: White Blood Count 10.7, Red Blood Count 3.06, Hemoglobin 10.3, Hematocrit 33, Mean Corpuscular Volume 107, Mean Corpuscular Hemoglobin 34, Mean Corpuscular Hemoglobin Concent 32, Red Cell Distribution Width 16.3, Platelet Count 258, Mean Platelet Volume 9.8, Neutrophils (%) (Auto) 74, Lymphocytes (%) (Auto) 15, Monocytes (%) (Auto) 9, Eosinophils (%) (Auto) 2, Basophils (%) (Auto) 0, Neutrophils # (Auto) 7.9, Lymphocytes # (Auto) 1.7, Monocytes # (Auto) 0.9, Eosinophils # (Auto) 0.2, Basophils # (Auto) 0.0, Sodium Level 139, Potassium Level 4.1, Chloride Level 105, Carbon Dioxide Level 27, Anion Gap 7, Blood Urea Nitrogen 10, Creatinine 0.94, Estimat Glomerular Filtration Rate > 60, BUN/Creatinine Ratio 11, Glucose Level 73, Calcium Level 8.2, Corrected Calcium 9.2, Total Bilirubin 0.2, Aspartate Amino Transf (AST/SGOT) 17, Alanine Aminotransferase (ALT/SGPT) 16, Alkaline Phosphatase 83, Total Protein 6.1, Albumin 2.7 01/25/19 19:00: White Blood Count 13.5, Red Blood Count 3.24, Hemoglobin 11.0, Hematocrit 34, Mean Corpuscular Volume 105, Mean Corpuscular Hemoglobin 34, Mean Corpuscular He moglobin Concent 32, Red Cell Distribution Width 16.1, Platelet Count 263, Mean Platelet Volume 9.9, Neutrophils (%) (Auto) 77, Lymphocytes (%) (Auto) 13, Monocytes (%) (Auto) 10, Eosinophils (%) (Auto) 1, Basophils (%) (Auto) 0, Neutrophils # (Auto) 10.3, Lymphocytes # (Auto) 1.8, Monocytes # (Auto) 1.3, Eosinophils # (Auto) 0.1, Basophils # (Auto) 0.0, Sodium Level 137, Potassium Level 4.2, Chloride Level 103, Carbon Dioxide Level 24, Anion Gap 10, Blood Urea Nitrogen 12, Creatinine 1.17, Estimat Glomerular Filtration Rate > 60, BUN/Creatinine Ratio 10, Glucose Level 111, Calcium Level 8.4, Corrected Calcium 9.4, Total Bilirubin 0.7, Aspartate Amino Transf (AST/SGOT) 16, Alanine Aminotransferase (ALT/SGPT) 15, Alkaline Phosphatase 106, Total Protein 6.1, A lbumin 2.7, Lactic Acid Level 0.94 01/25/19 20:45: Urine Color YELLOW, Urine Clarity CLEAR, Urine pH 8, Urine Specific [place] 1.010, Urine Protein NEGATIVE, Urine Glucose (UA) NEGATIVE, Urine Ketones NEGATIVE, Urine Nitrite NEGATIVE, Urine Bilirubin NEGATIVE, Urine Urobilinogen NORMAL, Urine Leukocyte Esterase 1+, Urine RBC (Auto) 3+, Urine RBC >100, Urine WBC 2-5, Urine Squamous Epithelial Cells 0-2, Urine Crystals NONE, Urine Bacteria TRACE, Urine Casts NONE, Urine Mucus NEGATIVE, Urine Culture Indicated YES 01/26/19 05:23: White Blood Count 14.6, Red Blood Count 2.99, Hemoglobin 10.1, Hematocrit 31, Mean Corpuscular Volume 105, Mean Corpuscular Hemoglobin 34, Mean Corpuscular Hemoglobin Concent 32, Red Cell Distribution Width 16.3, Platelet Count 238, Mean Platelet Volume 10.6, Neutrophils (%) (Auto) 81, Lymphocytes (%) (Auto) 8, Monocytes (%) (Auto) 10, Eosinophils (%) (Auto) 0, Basophils (%) (Auto) 0, Neutrophils # (Auto) 11.9, Lymphocytes # (Auto) 1.2, Monocytes # (Auto) 1.4, Eosinophils # (Auto) 0.1, Basophils # (Auto) 0.0, Sodium Level 135, Potassium Level 4.3, Chloride Level 103, Carbon Dioxide Level 21, Anion Gap 11, Blood Urea Nitrogen 13, Creatinine 1.15, Estimat Glomerular Filtration Rate > 60, BUN/Creatinine Ratio 11, Glucose Level 103, Calcium Level 8.5, Corrected Calcium 9.6, Total Bilirubin 1.0, Aspartate Amino Transf (AST/SGOT) 16, Alanine Aminotransferase (ALT/SGPT) 15, Alkaline Phosphatase 101, Total Protein 5.8, Albumin 2.6 01/27/19 10:45: White Blood Count 7.6, Red Blood Count 2.98, Hemoglobin 10.1, Hematocrit 31, Mean Corpuscular Volume 104, Mean Corpuscular Hemoglobin 34, Mean Corpuscular Hemoglobin Concent 33, Red Cell Distribution Width 15.7, Platelet Count 241, Mean Platelet Volume 10.4, Neutrophils (%) (Auto) 72, Lymphocytes (%) (Auto) 15, Monocytes (%) (Auto) 10, Eosinophils (%) (Auto) 3, Basophils (%) (Auto) 0, Neutrophils # (Auto) 5.5, Lymphocytes # (Auto) 1.1, Monocytes # (Auto) 0.8, Eosinophils # (Auto) 0.2, Basophils # (Auto) 0.0, Sodium Level 137, Potassium Level 3.6, Chloride Level 106, Carbon Dioxide Level 21, Anion Gap 10, Blood Urea Nitrogen 15, Creatinine 1.23, Estimat Glomerular Filtration Rate 58, BUN/Creatinine Ratio 12, Glucose Level 158, Calcium Level 8.4, Corrected Calcium 9.6, Total Bilirubin 0.3, Aspartate Amino Transf (AST/SGOT) 17, Alanine Aminotransferase (ALT/SGPT) 11, Alkaline Phosphatase 104, Total Protein 5.8, Albumin 2.5, Neutrophils % (Manual) 73, Lymphocytes % (Manual) 13, Monocytes % (Manual) 7, Eosinophils % (Manual) 4, Band Neutrophils 3, Blood Morphology Comment NORMAL, Lactic Acid Level 2.44 01/27/19 13:00: Lactic Acid Level 1.53 01/27/19 16:34: Lactic Acid Level 2.36 01/29/19 05:14: Sodium Level 138, Potassium Level 3.8, Chloride Level 107, Carbon Dioxide Level 24, Anion Gap 7, Blood Urea Nitrogen 8, Creatinine 1.05, Estimat Glomerular Filtration Rate > 60, BUN/Creatinine Ratio 8, Glucose Level 86, Calcium Level 8.4, Corrected Calcium 9.5, Total Bilirubin 0.4, Aspartate Amino Transf (AST/SGOT) 26, Alanine Aminotransferase (ALT/SGPT) 14, Alkaline Phosphatase 95, Total Protein 5.9, Albumin 2.6 01/29/19 05:34: White Blood Count 5.8, Red Blood Count 3.03, Hemoglobin 10.1, Hematocrit 31, Mean Corpuscular Volume 103, Mean Corpuscular Hemoglobin 33, Mean Corpuscular Hemoglobin Concent 32, Red Cell Distribution Width 15.0, Platelet Count 222, Mean Platelet Volume 10.6, Neutrophils (%) (Auto) 65, Lymphocytes (%) (Auto) 21, Monocytes (%) (Auto) 11, Eosinophils (%) (Auto) 3, Basophils (%) (Auto) 1, Neutrophils # (Auto) 3.7, Lymphocytes # (Auto) 1.2, Monocytes # (Auto) 0.6, Eosinophils # (Auto) 0.2, Basophils # (Auto) 0.1 Discharge Home Medications: Active Scripts Active [Multivitamins/Minerals Therap] 1 Tablet 1 Ea PO DAILY@0700 30 Days Montelukast Sodium 10 Mg Tablet 10 Mg PO HS 30 Days Furosemide 40 Mg Tablet 40 Mg PO Q48H 30 Days Klor-Con 10 (Potassium Chloride) 10 Meq Tablet.er 10 Meq PO Q48H 30 Days Requip (Ropinirole HCl) 0.25 Mg Tab 0.5 Mg PO HS PRN Lorazepam 0.5 Mg Tablet 0.5 Mg PO Q8H PRN Hydrocodone/Acetaminophen 5/325mg Tablet (Acetaminophen/Hydrocodone Bitart) 1 Tab Tab 1 Tab PO Q4H PRN Aspirin 81 Mg Tab.chew 81 Mg PO DAILY 30 Days Amlodipine Besylate 5 Mg Tablet 10 Mg PO DAILY 30 Days Metoprolol Succinate 100 Mg Tab.er.24h 100 Mg PO DAILY 30 Days Metoprolol Succinate 100 Mg Tab.er.24h 100 Mg PO HS 30 Days Eliquis (Apixaban) 2.5 Mg Tablet 2.5 Mg PO BID 30 Days Levalbuterol HCl 1.25 Mg/3 Ml Vial.neb 1.25 Mg INH RTTID PRN 30 Days Levofloxacin 750 Mg Tablet 750 Mg PO DAILY@1100 4 Days Loratadine 10 Mg Tablet 10 Mg PO DAILY 30 Days Folic Acid 1 Mg Tablet 1 Mg PO DAILY@0700 90 Days Reported Creon 24,000 Units Capsule (Lipase/Protease/Amylase) 1 Each Capsule. 1 Cap PO DAILY PRN Reglan (Metoclopramide HCl) 10 Mg Tablet 10 Mg PO Q6H PRN Spiriva Respimat 2.5MCG/ACTUATION (Tiotropium [place]) 4 Gm Mist.inhal 2 Puff IH DAILY PRN Artificial Tears (Dextran 70/Hypromellose) 1 Each Droperette 1 Drop OU QID PRN Metoprolol Succinate 100 Mg Tab.er.24h 100 Mg PO DAILY LAST FILLED #30 10-20-18 Omeprazole 20 Mg Capsule. 20 Mg PO DAILY Losartan Potassium 100 Mg Tablet 100 Mg PO DAILY Instructions to patient/family Please see electronic discharge instructions given to patient. Diagnosis/Problems Diagnosis/Problems (1) Fall Status: Acute Qualifiers: Qualified Codes: W19.XXXD - Unspecified fall, subsequent encounter (2) Hypokalemia Status: Acute (3) Folate deficiency Status: Acute (4) Pancytopenia Status: Acute (5) Debility Status: Acute (6) Interstitial lung disease Status: Chronic (7) Weight loss, unintentional Status: Chronic (8) CAD (coronary artery disease) Status: Chronic Qualifiers: Qualified Codes: I25.10 - Atherosclerotic heart disease of [place] coronary artery without angina pectoris (9) HTN (hypertension) Status: Chronic Qualifiers: Qualified Codes: I10 - Essential (primary) hypertension (10) Nausea & vomiting Status: Acute Qualifiers: (11) Bad odor of urine (12) UTI (urinary tract infection) Status: Acute (13) Skin tear Status: Acute (14) Pneumonia involving left lung (15) Lactic acidemia Status: Acute Clinical Quality Measures DVT/VTE Risk/Contraindication: Risk Factor Score Per Nursin RFS Level Per Nursing on Admit: 4+=Very High DUKE ABAD DO Jan 29, 2019 08:18
[2019-01-29] MEDS: amLODIPine 5 MG (NORVASC) TAB PO SCH (08:32)
[2019-01-29] MEDS: meTOprolol SUCCINATE 100 MG (TOPROL XL) TAB PO SCH (08:32)
[2019-01-29] MEDS: ASPIRIN 81 MG CHEW (CHILDREN'S ASA) PO SCH (08:32)
[2019-01-29] MEDS: LORATADINE (CLARITIN) 10 MG TAB PO SCH (08:33)
[2019-01-29] MEDS: PANTOPRAZOLE 20 MG TABLET (PROTONIX) PO SCH (08:33)
[2019-01-29] MEDS: APIXABAN 2.5 MG (ELIQUIS) TABLET PO SCH (08:33)
[2019-01-29] MEDS: LOSARTAN 100 MG (COZAAR) TABLET PO SCH (08:33)
--- NOTE | 2019-01-29 09:25 | NUR ---
Patient has discharge orders for today. Confirmed with patient's spouse that the plan is discharge to [facility]. Referral sent to [facility].
--- NOTE | 2019-01-29 10:15 | Occupational Ther Daily Note ---
OT Current Status-Daily Note Subjective Pt seen in room, up in bed, agreeable to OT. No pain mentioned., Appearance Alert, cooperative Mental Status/Objective Therapy Code Descriptions/Definitions Functional [place] Measure: 0=Not Assessed/NA 4=Minimal Assistance 1=Total Assistance 5=Supervision or Setup 2=Maximal Assistance 6=Modified [place] 3=Moderate Assistance 7=Complete [place] ADL-Treatment Pt was finishing eating, mod I with built up handles and extra time. Supine to sit EOB without help. Needed bed elevated to stand, SBA, FWW. Walked CGA, FWW to closet to retrieve clean clothing, placed over front of walker. Walked to bathroom CGA, FWW. Toilet transfer CGA, to BSC, cues for hand placement. Toilet ed CGA for clothing management. Shower transfer CGA, FWW, to shower bench, grab bars, FWW. Pt washed and dried all parts with supervision, setup. Hand held shower, long handled sponge. Pt educ use of sponge to dry lower legs. Dressed on toilet with upper body mod I (retrieved clothing), lower body CGA when standing. Multiple trials to get pants over feet, had insurance analyst available. Donned shoes with supervision. Stood at sink close SBA, FWW to brush teeth. Walked back to recliner and did not need cues for hand placement. Pt left up in recliner, all needs met. Therapy Code Descriptions/Definitions Functional [place] Measure: 0=Not Assessed/NA 4=Minimal Assistance 1=Total Assistance 5=Supervision or Setup 2=Maximal Assistance 6=Modified [place] 3=Moderate Assistance 7=Complete [place] Therapy Quality Codes: 6 Independent with activity with or without an assistive device 5 Patient requires set up or clean up by helper. Patient completes activity by themselves 4 Supervision or touching assist (CGA). [place] provide cues , steadying assist 3 The helper provides less than half the effort to complete the activity 2 The helper provides more than half the effort to complete the activity 1 Dependent. The helper does all the effort to complete an activity 7 Patient refused to complete or attempt activity 9 The patient did not perform the activity before the current illness or injury 88 Not attempted due to Medical conditions or safety concerns Eating (QC): 6 (Mod I, built up handles, extra time) Oral Hygiene (QC): 4 (Close SBA at sink, FWW to brush teeth) Shower/Bathe Self (QC): 4 (Supervision, setup. Shower bench, grab bars, hand held shower, long handled sponge) Upper Body Dressing (QC): 6 (Doffed and donned without help, retrieved clothing from closet) Lower Body Dressing (QC): 4 (CGA, for clothing management. Extra time. FWW) Toileting (FIM): 4 (CGA for clothing management, FWW. BSC over toilet, cues for hand placement) Toileting Hygiene (QC): 4 (CGA for clothing management, FWW. BSC over toilet, cues for hand placement) Toilet Transfer (QC): 4 (CGA, BSC over toilet) QC Footwear - 6 can put slippers on himself and adjust the heel part of shoe Education OT Patient Education: Energy conservation, Modified ADL techniques, Progress toward Goal/Update tx plan, Purpose of tx/functional activities, Safety issues, Transfer techniques, Use of adapted equipment, Other (Pt educ energy conservation technique, use of long handled sponge, pursed lip breathing) Teaching Recipient: Patient Teaching Methods: Demonstration, Discussion Response to Teaching: Verbalize Understanding, Return Demonstration, Reinforce ment Needed OT Short Term Goals Short Term Goals Upper Body Dressing(FIM): 6 (met) Lower Body Dressing(FIM): 3 (met) Transfers (B,C,W/C) (FIM): 5 (met- SBA) 1=Demonstrate adherence to instructed precautions during ADL tasks. 2=Patient will verbalize/demonstrate understanding of assistive devic es/modifications for ADL. 3=Patient will improve strength/tolerance for activity to enable patient to perform ADL's. OT Detention Goals Detention Goals Eating (QC): 6 (met) Oral Hygiene (QC): 6 (not met) Shower/Bathe Self (QC): 6 (not met) Upper Body Dressing (QC): 6 (met) Lower Body Dressing (QC): 6 (not met) On/Off Footwear (QC): 6 (met) Toileting Hygiene (QC): 6 (not met) Toilet/Commode Transfer (QC): 4 (met) Additional Goals: 1-Demonstrate ADL Tasks, 2-Verbalize Understanding, 3- ImproveStrength/Jordy 1=Demonstrate adherence to instructed precautions during ADL tasks. 2=Patient will verbalize/demonstrate understanding of assistive devices/modifications for ADL. 3=Patient will improve strength/tolerance for activity to enable patient to perform ADL's. OT Education/Plan Discharge Recommendations Plan/Recommendations: Discharge/Goals Met (see tx plan for specifics) Treatment Plan/Plan of Care Patient would benefit from OT for education, treatment and training to promote independence in ADL's, mobility, safety and/or upper extremity function for ADL's. Plan of Care: ADL Retraining, Caregiver Training, Cognitive Retraining, Functional Mobility, Group Exercise/Act as Ind, UE Funct Exercise/Act, UE Neuromus Re-Ed/Coord Treatment Duration: Jan 09, 2019 Frequency: 5 times per week Estimated Hrs Per Day: 1 hour per day (1-1.5 hours per day) Agreement: Yes Rehab Potential: Fair Time/GCodes Start Time: 08:55 Stop Time: 09:45 Total Time Billed (hr/min): 50 Billed Treatment Time visit, 50 minutes ADL LEXUS MOODY OT Jan 29, 2019 10:15
--- NOTE | 2019-01-29 10:25 | Physical Therapy Daily Note ---
PT Daily Note-Current Subjective Patient in recliner pre tx, agrees to PT, no complaints of pain, patient is discharging from this facility today. Appearance Patient sitting EOB post tx with nurse call, phone, tray, all needs met. Mental Status Patient Orientation: Person, Place, Situation Transfers Therapy Quality Codes: 6 Independent with activity with or without an assistive device 5 Patient requires set up or clean up by helper. Patient completes activity by themselves 4 Supervision or touching assist (CGA). [place] provide cues , steadying assist 3 The helper provides less than half the effort to complete the activity 2 The helper provides more than half the effort to complete the activity 1 Dependent. The helper does all the effort to complete an activity 7 Patient refused to complete or attempt activity 9 The patient did not perform the activity before the current illness or injury 88 Not attempted due to Medical conditions or safety concerns Roll Left to Right (QC): 6 Sit to Lying (QC): 6 Sit to Stand (QC): 4 Chair/Wet-je-Itcfq Xfer(QC): 4 Car Transfer (QC): 4 Patient performs bed mobility with mod I, supine <-> sit mod I, sit <-> stand SBA, transfers CGA, car transfer CGA. Patient states it feels like his left knee might buckle at any time. Weight Bearing Right Lower Extremity: Right Weight Bearing/Tolerated Left Lower Extremity: Left Weight Bearing/Tolerated Gait Training Distance: 120'x2 Walk 10 feet (QC): 4 Walk 50 ft with 2 Turns(QC): 4 Walking 10ft/uneven surface-QC: 4 Gait Persons Needed: 1 Gait Assistive Device: FWW Patient can ambulate 120' with a rolling walker with CGA (including 50' with at least 2 turns of 90 degrees and 10' over an uneven surface). He ambulates slowly, has uncoordinated steps, SOB, fatigues him very much, needs significant rest break afterward. Stair Training Stair Training: Handrails/: 2 handrails #of Steps: 4 1 Step (curb) (QC): 4 4 Steps (QC): 4 Stairs: Pattern: Step to Patient can go up and down 4 steps using 2 handrails with CGA. Cues for foot placement and safety. Very uncoordinated steps, needs cues to look at feet and place them correctly. Balance Picking up an Object (QC): 3 (min assist) Treatments bed mobility and transfers, ambulation, stairs Assessment Current Status: Poor Progress Patient SOB after short activity, needs frequent rest breaks, very uncoordinated steps PT Biophysics Scientist Goals Biophysics Scientist Goals PT Biophysics Scientist Goals Time Frame: Feb 03, 2019 Sit to Lying (QC): 6 Lying-Sitting on Side/Bed(QC): 6 Sit to Stand (QC): 6 Roll Left to Right (QC): 6 Chair/Rjj-jn-Iwfcm Xfer(QC): 6 Car Transfer (QC): 6 Does the Patient Walk: Yes Distance: 250' Walk 10 feet (QC): 6 Walk 10ft-Uneven Surface(QC): 6 Walk 50ft with 2 Turns (QC): 6 Walk 150 ft (QC): 6 Gait Level of Assist: 6 Gait Assistive Device: FWW # of Steps: 4 1 Step (curb) (QC): 6 4 Steps (QC): 6 12 Steps (QC): 9 Stairs Level Of Assist: 6 Picking up an Object (QC): 6 PT Plan Problem List Problem List: Activity Tolerance, Functional Strength, Safety, Balance, Gait, Transfer, Bed Mobility Treatment/Plan Treatment Plan: Continue Plan of Care Treatment Plan: Bed Mobility, Education, Functional Activity Jordy, Functional Strength, Group Therapy, Gait, Safety, Therapeutic Exercise, Transfers Treatment Duration: Feb 03, 2019 Frequency: At least 5 of 7 days/Wk (IRF) Estimated Hrs Per Day: 1.5 hours per day Patient and/or Family Agrees t: Yes Safety Risks/Education Patient Education: Gait Training, Transfer Techniques, Steps, Correct Positioning, Safety Issues Teaching Recipient: Patient Teaching Methods: Demonstration, Discussion Response to Teaching: Reinforcement Needed Time/GCodes Time In: 0950 Time Out: 1020 Total Billed Treatment Time: 30 Total Billed Treatment 1 visit FA 30' STACY LOPEZ PT Jan 29, 2019 10:25
--- NOTE | 2019-01-29 10:31 | Therapy Team Discharge Summary ---
Therapy Discharge Summary Discharge Recommendations Date of Discharge Physical Therapy Patient came to rehab with AMS/weakness. Upon evaluation patient performed bed mobility with SBA, transfers with CGA, ambulated 200' with a rolling walker with CGA (including 50' with at least 2 turns of 90 degrees and 10' over an uneven surface), and went up and down 1 step using a rolling walker with CGA. Patient has been performing bed mobility and transfer training, balance and endurance training, functional strengthening, stair training, gait training, and education. Patient has made poor progress and has only met his jail goals for bed mobility. Now, patient performs bed mobility with mod I, supine <-> sit mod I, sit <-> stand SBA, transfers CGA, car transfer CGA, ambulate 120' with a rolling walker with CGA (including 50' with at least 2 turns of 90 degrees and 10' over an uneven surface), can go up and down 4 steps using 2 handrails with CGA, and can pick and shovel worker an object from the floor with min assist. Patient is discharging from this facility today and will be discharged from PT at this time. Occupational Therapy Decreased Activ Tolerance, Decreased UE Strength, Impaired Coordination, Impaired I ADL's, Impaired Self-Care Skills PT Hand Reamer Goals Half-Way Goals PT Hand Reamer Goals Time Frame: Feb 03, 2019 Transfers (B,C,W/C) (FIM): 6 Roll Left to Right (QC): 6 Sit to Lying (QC): 6 Lying-Sitting on Side/Bed(QC): 6 Sit to Stand (QC): 6 Chair/Ybq-ne-Cvmgr Xfer(QC): 6 Car Transfer (QC): 6 Does the Patient Walk: Yes Gait (FIM): 6 Gait distance (FIM): 3=150 ft Distance: 250' Walk 10 feet (QC): 6 Walk 10ft-Uneven Surface(QC): 6 Walk 50ft with 2 Turns (QC): 6 Walk 150 ft (QC): 6 Gait Level of Assist: 6 Gait Assistive Device: FWW Stairs (FIM): 2 # of Steps: 4 1 Step (curb) (QC): 6 4 Steps (QC): 6 12 Steps (QC): 9 Stairs Level Of Assist: 6 Picking up an Object (QC): 6 OT Hand Reamer Goals Hand Reamer Goals Eating (FIM): 7 (met) Eating (QC): 6 (met) Oral Hygiene (QC): 6 (not met) Grooming(FIM): 6 Bathing(FIM): 6 Shower/Bathe Self (QC): 6 (not met) Upper Body Dressing(FIM): 6 (met) Upper Body Dressing (QC): 6 (met) Lower Body Dressing(FIM): 6 Lower Body Dressing (QC): 6 (not met) On/Off Footwear (QC): 6 (met) Toileting(FIM): 5 (met) Toileting Hygiene (QC): 6 (not met) Transfers (B,C,W/C) (FIM): 6 Toilet/Commode Transfer(FIM): 5 (met) Toilet/Commode Transfer (QC): 4 (met) Tub Transfer(FIM): 5 (met) Shower Transfer(FIM): 5 Additional Goals: 1-Demonstrate ADL Tasks, 2-Verbalize Understanding, 3- ImproveStrength/Jordy 1=Demonstrate adherence to instructed precautions during ADL tasks. 2=Patient will verbalize/demonstrate understanding of assistive devices/modifications for ADL. 3=Patient will improve strength/tolerance for activity to enable patient to perform ADL's. Speech Hand Reamer Goals Half-Way Goals The patient will improve cognitive level of function so that he may return home safely. Met at 80% STACY LOPEZ PT Jan 29, 2019 10:31
[2019-01-29] MEDS: LEVOFLOXACIN 750 MG TAB (LEVAQUIN) PO SCH (11:10)
[2019-01-29] MEDS: LORazepam 0.5 MG (ATIVAN) TABLET PO PRN (12:24)
--- NOTE | 2019-01-29 13:02 | NUR ---
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 [facility] notified of patient's isolation. [facility] can accept the patient if an external catheter is placed as they currently do not have any private rooms available. RN and Dr. Groves notified. Dr. Groves gave orders for external catheter. RN reported that patient consented and external catheter was placed. IMM from Medicare was discussed with patient and signature obtained. Plan is for discharge to [facility] today at 1430. Marilu Whalen renal social worker, will complete Care Assessment prior to discharge.
--- NOTE | 2019-01-29 13:50 | NUR ---
CARE assessment completed and placed in chart,faxed to [facility] and [facility]
--- NOTE | 2019-01-30 08:35 | Therapy Team Discharge Summary ---
Therapy Discharge Summary Discharge Recommendations Date of Discharge Jan 29, 2019 at 14:18 Occupational Therapy Pt admitting QC's: eating 6, oral hygiene 4, bathing 4, UB dressing 5, LB dres sing 2, Toileting 4, Toilet hygiene 4, Toilet transfer 4. Pt increased fine motor control, strength, and endurance through OT tx sessions focused on ADL tasks, functional mobility, UE exercises, and environmental modifications. Pt educated on pursed lip breathing techniques, energy conservation, modified ADL techniques, and environmental safety. Pt's barriers included additional medical complications, limiting progress. Pt d/c QC's: Eating 6, oral hygiene 4, bathing 4, UB dressing 6, LB dressing 4, Toileting 4, Toilet hygiene 4, and toilet transfers 4. Pt d/c recommendations include post-acute OT and rails on tub/shower/ toilet, extended shower sprayer, diesel retrofit installer, walker tray. Decreased Activ Tolerance, Decreased UE Strength, Impaired Coordination, Impaired I ADL's, Impaired Self-Care Skills PT Blankbook Forwarder Goals Mcc Goals PT Mcc Goals Time Frame: Feb 03, 2019 Transfers (B,C,W/C) (FIM): 6 Roll Left to Right (QC): 6 Sit to Lying (QC): 6 Lying-Sitting on Side/Bed(QC): 6 Sit to Stand (QC): 6 Chair/Qgm-pl-Hnvtp Xfer(QC): 6 Car Transfer (QC): 6 Does the Patient Walk: Yes Gait (FIM): 6 Gait distance (FIM): 3=150 ft Distance: 250' Walk 10 feet (QC): 6 Walk 10ft-Uneven Surface(QC): 6 Walk 50ft with 2 Turns (QC): 6 Walk 150 ft (QC): 6 Gait Level of Assist: 6 Gait Assistive Device: FWW Stairs (FIM): 2 # of Steps: 4 1 Step (curb) (QC): 6 4 Steps (QC): 6 12 Steps (QC): 9 Stairs Level Of Assist: 6 Picking up an Object (QC): 6 OT Blankbook Forwarder Goals Mcc Goals Eating (FIM): 7 (met) Eating (QC): 6 (met) Oral Hygiene (QC): 6 (not met) Grooming(FIM): 6 Bathing(FIM): 6 Shower/Bathe Self (QC): 6 (not met) Upper Body Dressing(FIM): 6 (met) Upper Body Dressing (QC): 6 (met) Lower Body Dressing(FIM): 6 Lower Body Dressing (QC): 6 (not met) On/Off Footwear (QC): 6 (met) Toileting(FIM): 5 (met) Toileting Hygiene (QC): 6 (not met) Transfers (B,C,W/C) (FIM): 6 Toilet/Commode Transfer(FIM): 5 (met) Toilet/Commode Transfer (QC): 4 (met) Tub Transfer(FIM): 5 (met) Shower Transfer(FIM): 5 Additional Goals: 1-Demonstrate ADL Tasks, 2-Verbalize Understanding, 3- ImproveStrength/Jordy 1=Demonstrate adherence to instructed precautions during ADL tasks. 2=Patient will verbalize/demonstrate understanding of assistive devices/modifications for ADL. 3=Patient will improve strength/tolerance for activity to enable patient to perform ADL's. Speech Blankbook Forwarder Goals Mcc Goals The patient will improve cognitive level of function so that he may return home safely. Met at 80% JOANA MENDOZA OTR Jan 30, 2019 08:35
== END 2019-01-29 14:18 | DRG 947 ==
PROVIDERS: ADMIT Internal Medicine; ATTEND Internal Medicine
DX: R53.1 Weakness (principal); F10.26 Alcohol dependence with alcohol-induced persisting amnestic disorder; J18.9 Pneumonia, unspecified organism; N39.0 Urinary tract infection, site not specified; I48.0 Paroxysmal atrial fibrillation; I13.0 Hypertensive heart and chronic kidney disease with heart failure and stage 1 through stage 4 chronic kidney disease, or unspecified chronic kidney disease; I50.32 Chronic diastolic (congestive) heart failure; N18.3 Chronic kidney disease, stage 3 (moderate); J43.9 Emphysema, unspecified; D61.818 Other pancytopenia; E46 Unspecified protein-calorie malnutrition; K86.0 Alcohol-induced chronic pancreatitis; F41.0 Panic disorder [episodic paroxysmal anxiety]; G62.9 Polyneuropathy, unspecified; I65.09 Occlusion and stenosis of unspecified vertebral artery; I25.10 Atherosclerotic heart disease of native coronary artery without angina pectoris; E83.42 Hypomagnesemia; R47.01 Aphasia; I08.0 Rheumatic disorders of both mitral and aortic valves; I70.1 Atherosclerosis of renal artery; R32 Unspecified urinary incontinence; E87.6 Hypokalemia; E53.8 Deficiency of other specified B group vitamins; J84.9 Interstitial pulmonary disease, unspecified; K21.9 Gastro-esophageal reflux disease without esophagitis; D50.9 Iron deficiency anemia, unspecified; S41.112A Laceration without foreign body of left upper arm, initial encounter; R29.6 Repeated falls; G47.33 Obstructive sleep apnea (adult) (pediatric); Z79.01 Long term (current) use of anticoagulants
CPT/HCPCS: 36415; 71046; 80048; 80053; 81000; 82607; 82746; 83605; 83735; 85007; 85025; 85027; 85045; 87077; 87088; 87186; 94640; 94664; 94760

== ENCOUNTER → 2019-03-26 | Outpatient (CLI) | payer MEDICARE, OTHER ==
[~2019-03-26] MED LIST changes: +ACHD5005 PO; +AMLO5TAB9 PO; +APIX2.5T PO; +LEVA1.2543 INH; +LEVO750T39 PO; +LORA0.5T PO; +LORA10TA7 PO; +MONT10TA24 PO; +Multivitamins/Minerals Therap PO; +POTA10TA6 PO; +RPN.25T PO; +RT-ALBUTEROL SULF 2.5 MG/3 ML PRE-MIX VIAL INH ONE
== END ==
LOC: RT 09:27
PROVIDERS: ATTEND Nurse Practitioner Family
DX: I50.31 Acute diastolic (congestive) heart failure (principal); R91.8 Other nonspecific abnormal finding of lung field; G47.33 Obstructive sleep apnea (adult) (pediatric); J43.8 Other emphysema; J84.9 Interstitial pulmonary disease, unspecified; R06.00 Dyspnea, unspecified; G47.10 Hypersomnia, unspecified; Z72.0 Tobacco use
CPT/HCPCS: 94060; 94726; 94729

== ENCOUNTER → 2019-04-19 | Outpatient (CLI) | payer MEDICARE, OTHER ==
[~2019-04-19] MED LIST changes: +CATHETER FLUSH 10 ML SYR IV PRN; +HOLD METFORMIN - RECEIVED CONTRAST 20 ML VIAL IV SCH; +IOHEXOL 350 MG/ML 100 ML (OMNIPAQUE 350) VIAL IV ONE; +NS 100 ML (IVPB) BAG IV ONE; -RT-ALBUTEROL SULF 2.5 MG/3 ML PRE-MIX VIAL INH ONE
[2019-04-19 13:29] LABS: CREATININE SERUM 1.22 MG/DL (0.60-1.30)
--- NOTE | 2019-04-19 14:52 | Diagnostic Imaging Report ---
EXAMINATION: CT Chest with intravenous contrast. TECHNIQUE: Multiple contiguous axial images were obtained through the chest after the uneventful administration of intravenous contrast. All CT scans use one or more of the following dose optimizing techniques: automated exposure control, MA and/or KvP adjustment based on a patient size and exam type, or iterative reconstruction. HISTORY: Lung nodule. COMPARISON: 10/02/2018. FINDINGS: There are peripheral and basilar predominant reticulations which appear similar to prior study. There is traction bronchiectasis posteriorly. Fissural lymph node along the minor fissure is unchanged measuring approximately 5 mm. No new pulmonary nodules are seen. The appearance is stable compared to multiple priors dating back to 06/07/2016. No consolidation. No pleural effusion or pneumothorax. Heart size is normal. No pericardial effusion. Aorta is normal in caliber. There is no axillary or supraclavicular lymphadenopathy. There is no mediastinal lymphadenopathy. There are severe coronary artery calcifications. Limited views of the upper abdomen show an absent gallbladder and a hemorrhagic cyst in the right kidney as well as simple cysts in the kidneys. There are no suspicious osseous lesions. IMPRESSION: 1. Stable peripheral and basilar predominant reticulations with traction bronchiectasis in keeping with mild fibrosis. Findings are indeterminate for usual interstitial pneumonia by Fleischner Society guidelines. 2. No suspicious pulmonary nodules. Dictated by: Dictated on workstation # [id number]
== END ==
LOC: RAD 12:55
PROVIDERS: ATTEND Nurse Practitioner Family
DX: J98.4 Other disorders of lung (principal); R91.8 Other nonspecific abnormal finding of lung field; J84.10 Pulmonary fibrosis, unspecified; J47.9 Bronchiectasis, uncomplicated; R06.00 Dyspnea, unspecified; G47.33 Obstructive sleep apnea (adult) (pediatric); Z72.0 Tobacco use
CPT/HCPCS: 36415; 71260; 82565; 84520

== ENCOUNTER 2019-05-23 12:36 | Outpatient (CLI) | payer MEDICARE, OTHER ==
[~2019-05-23] VITALS: Ht 182 cm; Wt 96.2 kg
[~2019-05-23 12:36] MED LIST changes: -CATHETER FLUSH 10 ML SYR IV PRN; -HOLD METFORMIN - RECEIVED CONTRAST 20 ML VIAL IV SCH; -IOHEXOL 350 MG/ML 100 ML (OMNIPAQUE 350) VIAL IV ONE; -METO-395 PO; +MTP100TCR PO; -NS 100 ML (IVPB) BAG IV ONE; +OMEP-280 PO; -OMEP20CA13 PO
[2019-05-23] MEDS ORDERED: DABI75CA3 PO (12:59)
[2019-05-23] MEDS ORDERED: GABA-486 PO (12:59)
[2019-05-23] MEDS ORDERED: POTA10CA43 PO (12:59)
[2019-05-23] MEDS ORDERED: LORA-404 PO (12:59)
[2019-05-23] MEDS ORDERED: MULT1CAP27 PO (12:59)
[2019-05-23 13:21] VITALS: BP 116/63
== END 2019-05-23 13:28 | disposition home or self-care (01) ==
LOC: PREOP 12:36
PROVIDERS: ATTEND Orthopaedic Surgery
DX: Z01.818 Encounter for other preprocedural examination (principal)
CPT/HCPCS: 87081

== ENCOUNTER → 2019-05-29 | Outpatient (CLI) | payer MEDICARE, OTHER ==
[~2019-05-29] MED LIST changes: +DABI75CA3 PO; +GABA-486 PO; +HOLD METFORMIN - RECEIVED CONTRAST 20 ML VIAL IV SCH; +HYDR-3816 PO; +IOHEXOL 350 MG/ML 100 ML (OMNIPAQUE 350) VIAL IV ONE; +LORA-404 PO; +MULT1CAP27 PO; +NS 100 ML (IVPB) BAG IV ONE
[2019-05-29 13:00] LABS: CREATININE SERUM 1.37 MG/DL (0.60-1.30)
--- NOTE | 2019-05-29 15:14 | Diagnostic Imaging Report ---
EXAMINATION: CT Chest with intravenous contrast. TECHNIQUE: Multiple contiguous axial images were obtained through the chest after the uneventful administration of intravenous contrast. All CT scans use one or more of the following dose optimizing techniques: automated exposure control, MA and/or KvP adjustment based on a patient size and exam type, or iterative reconstruction. HISTORY: Lung nodule. COMPARISON: 04/19/2019. FINDINGS: There are peripheral and basilar predominant reticulations which appear similar to prior study. There is traction bronchiectasis posteriorly. Fissural lymph node along the minor fissure is unchanged measuring approximately 5 mm. No new pulmonary nodules are seen. The appearance is stable compared to multiple priors dating back to 06/07/2016. No consolidation. No pleural effusion or pneumothorax. Heart size is normal. No pericardial effusion. Aorta is normal in caliber. There is no axillary or supraclavicular lymphadenopathy. There is no mediastinal lymphadenopathy. There are severe coronary artery calcifications. Limited views of the upper abdomen show an absent gallbladder and a hemorrhagic cyst in the right kidney as well as simple cysts in the kidneys. There are no suspicious osseous lesions. IMPRESSION: 1. Stable peripheral and basilar predominant reticulations with traction bronchiectasis in keeping with mild fibrosis. Findings are indeterminate for usual interstitial pneumonia by Fleischner Society guidelines. 2. No suspicious pulmonary nodules. Dictated by: Dictated on workstation # [id number]
== END ==
LOC: RAD 12:25
PROVIDERS: ATTEND Nurse Practitioner Family
DX: J44.9 Chronic obstructive pulmonary disease, unspecified (principal); J84.10 Pulmonary fibrosis, unspecified
CPT/HCPCS: 36415; 71260; 82565; 84520

== ENCOUNTER 2019-05-30 07:42 | Day surgery (SDC) | payer MEDICARE, OTHER ==
--- NOTE | 2019-05-14 11:04 | HISTORY AND PHYSICAL ---
DATE OF SERVICE: This will be for outpatient surgery on 05/30/2019 for right carpal tunnel release and right cubital tunnel release. HISTORY OF PRESENT ILLNESS: The patient is a 73-year-old right-hand dominant gentleman with complaints of right hand pain and paresthesias. 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 He is a retired [employer]in. He reports progressively worsening bilateral hand pain and paresthesias. He also reports some pain in the shoulder. He reports marked activity limitations because of his hands. Due to progressive symptoms and failure to improve with conservative measures, the patient elected to proceed with surgical intervention. REVIEW OF SYSTEMS: No chest pain, no shortness of breath, no dysuria. PAST MEDICAL HISTORY: Hypertension, coronary artery disease, COPD, restless leg syndrome, reflux, anxiety, and sleep apnea. PAST SURGICAL HISTORY: Lumbar, kidney, coronary stent, carotid, esophagus, left total knee arthroplasty, left foot. FAMILY HISTORY: Significant for lung disease, cancer. PRIMARY CARE PROVIDER: Dr. Macais. MEDICATIONS: Gabapentin, Ativan, ropinirole, amlodipine, furosemide, hydrocodone, metoprolol, potassium, losartan, omeprazole, and Eliquis. ALLERGIES: SULFA, DEMEROL. SOCIAL HISTORY: The patient is a former drinker and smoker, stopped in 12/2018. PHYSICAL EXAMINATION: GENERAL: The patient is well developed, well-nourished, in no acute distress. HEENT: Normocephalic, atraumatic. Pupils are equal, round, reactive to light. Oropharynx is clear. NECK: Supple, no lymphadenopathy. LUNGS: Clear to auscultation bilaterally. HEART: Regular rate and rhythm. ABDOMEN: Soft, nontender, nondistended. EXTREMITIES: The right upper extremity demonstrates positive Tinel's at the cubital and carpal tunnels with a positive elbow flexion test with decreased sensation in the median and ulnar distribution. He has weakness with finger abduction and thumb palmar abduction. IMPRESSION: Right carpal tunnel and cubital tunnel syndromes. PLAN: Right carpal and cubital tunnel releases. The risks, benefits, options, ramifications and recovery were discussed at length with the patient. He understands and wishes to proceed. Job ID: [id number] DocumentID: [id number] Dictated Date: 05/14/2019 09:28:05 Vp Research Date: 05/14/2019 11:04:10 Dictated By: RAYMOND HESS MD
[2019-05-30] VITALS (9 sets, daily range): BP systolic 114–147; BP diastolic 68–86
[~2019-05-30] VITALS: Ht 182 cm; Wt 96.2 kg
[~2019-05-30 07:42] MED LIST changes: -HOLD METFORMIN - RECEIVED CONTRAST 20 ML VIAL IV SCH; -HYDR-3816 PO; +HYDROcodone/APAP 7.5 MG/325 MG (LORTAB, LORCET PLUS) TABLET PO PRN; -IOHEXOL 350 MG/ML 100 ML (OMNIPAQUE 350) VIAL IV ONE; -NS 100 ML (IVPB) BAG IV ONE
[2019-05-30] MEDS ORDERED: LACTATED RINGERS 1,000 ML IV PRN (07:44)
[2019-05-30] MEDS ORDERED: ceFAZolin INJECTION 1,000 MG in WATER (STERILE) FOR INJECTION 10 ML IV ONE (07:45)
[2019-05-30] MEDS ORDERED: LIDOCAINE 1% INJ 20 ML 20 ML VIAL ONE (08:15)
[2019-05-30] MEDS ORDERED: BUPIVACAINE 0.5% 30 ML (SENSORCAINE) VIAL ONE (08:15)
[2019-05-30] MEDS ORDERED: ONDANSETRON 4 MG/2 ML (SDV) Z0FRAN ONE (08:53)
[2019-05-30] MEDS ORDERED: proPOfol 200 MG/20 ML (DIPRIVAN) VIAL IV ONE (08:53)
[2019-05-30] MEDS ORDERED: LIDOCAINE PF 2% 5 ML (XYLOCAINE) VIAL ONE (08:53)
[2019-05-30] MEDS ORDERED: SEVOFLURANE (ULTANE) 15 ML INHAL SOLN ONE ×2 (08:53→09:42)
[2019-05-30] MEDS ORDERED: DEXAMETHASONE 10 MG/ML (DECADRON) 1 ML VIAL ONE (08:53)
[2019-05-30] MEDS ORDERED: MIDAZOLAM 2 MG/2 ML (VERSED) VIAL ONE (08:54)
[2019-05-30] MEDS ORDERED: fentaNYL INJECTION 100 MCG/2 ML AMP ONE (08:54)
--- NOTE | 2019-05-30 09:10 | Progress Note-Pre Operative ---
Pre-Operative Progress Note H&P Reviewed The H&P was reviewed, patient examined and no changes noted. Date Seen by Provider: May 30, 2019 Time Seen by Provider: 09:00 Date H&P Reviewed: May 30, 2019 Time H&P Reviewed: 09:00 Pre-Operative Diagnosis: right carpal and cubital tunnel synodrome RAYMOND HESS MD May 30, 2019 09:10
--- NOTE | 2019-05-30 09:11 | Progress Note-Post Operative ---
Post-Operative Progess Note Surgeon (s)/Medical Technical Writer (s) Surgeon RAYMOND HESS MD Medical Technical Writer: Rolando Coombs Pre-Operative Diagnosis right carpal and cubital tunnel synodrome Post-Operative Diagnosis right carpal and cubital tunnel syndrome Procedure & Operative Findings Date of Procedure 05/30/19 Procedure Performed/Findings right carpal and cubital tunnel releases Anesthesia Type GETA Estimated Blood Loss Estimated blood loss (mL): minimal Specimens/Packing Specimens Removed none Packing: none RAYMOND HESS MD May 30, 2019 09:11
[2019-05-30] MEDS ORDERED: fentaNYL INJECTION 100 MCG/2 ML AMP IVP ONE (10:00)
[2019-05-30] MEDS ORDERED: ONDANSETRON 4 MG/2 ML (SDV) Z0FRAN IVP PRN (10:00)
[2019-05-30] MEDS ORDERED: morphine INJ 10 MG/ML 1ML (SYR OR VIAL) IVP ONE (10:00)
[2019-05-30] MEDS ORDERED: HYDR-3816 PO (10:07)
--- NOTE | 2019-05-30 10:40 | NUR ---
RECEIVED PATIENT FROM PACU. O2 SAT 88% ON ROOM AIR. PATIENT WEARS O2 NEEDED AT HOME. O2 APPLIED AT 2 LITERS PER NASAL CANNULA.
--- NOTE | 2019-05-30 11:20 | Anesthesia-General Post-Op ---
General Patient Condition Mental Status/LOC: Same as Preop Cardiovascular: Satisfactory Nausea/Vomiting: Absent Respiratory: Satisfactory Pain: Controlled Complications: Absent Post Op Complications Complications None Follow Up Care/Instructions Patient Instructions None needed. Anesthesia/Patient Condition Patient Condition Patient is doing well, no complaints, stable vital signs, no apparent adverse anesthesia problems. No complications reported per nursing. YONI MCLEOD CRNA May 30, 2019 11:20
--- NOTE | 2019-05-30 11:20 | NUR ---
O2 DC'D. PATIENT MORE ALERT. DISCHARGE INSTRUCTIONS WENT OVER WITH THE PATIENT AND HIS . IV DC'D. 1130: O2 SAT 95% ON ROOM AIR. PATIENT UP TO GET DRESSED.
--- NOTE | 2019-05-30 15:19 | OPERATIVE REPORT ---
DATE OF SERVICE: 05/30/2019 PREOPERATIVE DIAGNOSES: 1. Right cubital tunnel syndrome. 2. Right carpal tunnel syndrome. POSTOPERATIVE DIAGNOSES: 1. Right cubital tunnel syndrome. 2. Right carpal tunnel syndrome. PROCEDURES: 1. Right cubital tunnel release. 2. Right carpal tunnel release. SURGEON: Audie Kwon MD STRAIGHTENER AND ALIGNER: Rolando Coombs, who assisted throughout the procedure and closed the incisions. ANESTHESIA: General endotracheal by Osbaldo Hidalgo CRNA. TOURNIQUET TIME: 9 minutes at 250 mmHg. ESTIMATED BLOOD LOSS: Minimal. DRAINS: None. COMPLICATIONS: None. POSTOPERATIVE PLAN: Routine protocol. The patient was transferred to the recovery room awake and in stable condition. STATEMENT OF MEDICAL NECESSITY: The patient is a 73-year-old right hand dominant gentleman with complaints of right hand pain and paresthesias. He had a positive Tinel's at both the cubital and carpal tunnels. He had a positive Phalen's maneuver, positive elbow flexion test. Due to functional impairment and failure to improve with conservative measures, the patient elected to proceed with surgical intervention. DESCRIPTION OF PROCEDURE: After risks and benefits of procedure were discussed and questions were answered, an informed consent was signed and placed on chart, the operative sites were confirmed in the preoperative holding area initialed by the surgeon. The patient was then transferred to the operating room and after adequate levels of general endotracheal anesthetic were obtained, a timeout was called, confirming the operative site. The right upper extremity was prepped and draped in the usual sterile fashion with arm elevated, tourniquet was inflated to 250 mmHg. An L-shaped incision was made posterior to the medial epicondyle. The underlying soft tissues were carefully dissected. The ulnar nerve was identified proximal to the medial epicondyle and dissected to a 0.9 cm proximally. This was then dissected through the cubital tunnel and into the flexor/pronator mass. The nerve was carefully protected throughout the procedure and intact at the conclusion of the procedure. The elbow was taken through range of motion with no subluxation noted; therefore transposition was not performed. The wound was then irrigated and packed. A longitudinal incision was then made in line with radial border of the ring finger over the transverse carpal ligament in the right hand. The underlying soft tissues were sharply dissected exposing the transverse carpal ligament, which was then incised by pushing through with the scalpel. The median nerve was identified and carefully protected throughout the procedure and intact at the conclusion of the procedure. Distally, the transverse carpal ligament was fully released under direct visualization. Proximally, it was spread above and below while carefully protecting the median nerve and then opened with slightly open scissor edges. This was confirmed fully released with a freer. The tourniquet was deflated for a total tourniquet time of 9 minutes. Pressure was used for hemostasis. Both wounds were copiously irrigated, 3-0 Vicryl was used to reapproximate the subcutaneous layer at the elbow incision and both skin incisions were closed with 4-0 nylon in running alternating horizontal mattress fashion. Incisions were infiltrated with plain Marcaine. A soft dressing and wrist brace were applied and the patient was transferred to the recovery room awake and in stable condition. Job ID: [id number] DocumentID: [id number] Dictated Date: 05/30/2019 09:47:58 Continuous Improvement Manager Date: 05/30/2019 15:17:44 Dictated By: AUDIE KWON MD
== END 2019-05-30 11:50 | disposition home or self-care (01) ==
LOC: SDC 07:42
PROVIDERS: ATTEND Orthopaedic Surgery
DX: G56.01 Carpal tunnel syndrome, right upper limb (principal); G56.21 Lesion of ulnar nerve, right upper limb; I10 Essential (primary) hypertension; I25.10 Atherosclerotic heart disease of native coronary artery without angina pectoris; J44.9 Chronic obstructive pulmonary disease, unspecified; G47.30 Sleep apnea, unspecified; G25.81 Restless legs syndrome; K21.9 Gastro-esophageal reflux disease without esophagitis; F41.9 Anxiety disorder, unspecified; Z79.891 Long term (current) use of opiate analgesic; Z79.899 Other long term (current) drug therapy; Z79.01 Long term (current) use of anticoagulants; Z80.9 Family history of malignant neoplasm, unspecified

== ENCOUNTER 2019-06-21 12:30 | Outpatient (CLI) | payer MEDICARE, OTHER ==
[~2019-06-21] VITALS: Ht 182 cm; Wt 95.0 kg
[~2019-06-21 12:30] MED LIST changes: +HYDR-3816 PO; -HYDROcodone/APAP 7.5 MG/325 MG (LORTAB, LORCET PLUS) TABLET PO PRN; -MONT10TA24 PO; +MONT10TA26 PO; -OMEP-280 PO; +OMEP20CA18 PO
== END 2019-06-21 13:15 | disposition home or self-care (01) ==
LOC: PREOP 12:30
PROVIDERS: ATTEND Orthopaedic Surgery
DX: Z01.818 Encounter for other preprocedural examination (principal)

== ENCOUNTER 2019-06-27 08:40 | Day surgery (SDC) | payer MEDICARE, OTHER ==
--- NOTE | 2019-06-19 08:36 | HISTORY AND PHYSICAL ---
DATE OF SERVICE: ADMISSION HISTORY AND PHYSICAL FOR OUTPATIENT SURGERY DATE OF ADMISSION: 06/27/2019. DATE OF SURGERY: Date of surgery and outpatient admission will be 06/27/2019, for left carpal tunnel release and left cubital tunnel release. HISTORY OF PRESENT ILLNESS: The patient is a 73-year-old right hand dominant gentleman with the complaints of left elbow pain as well as paresthesias in his left hand. He underwent an EMG nerve conduction study, which revealed evidence of carpal tunnel and cubital tunnel on the left. He reports progressively worsening hand pain and paresthesias. He reports activity limitations because of his hands. Due to functional impairment and failure to improve with conservative measures, the patient elected to proceed with surgical intervention. REVIEW OF SYSTEMS: No chest pain, no shortness of breath and no dysuria. PAST MEDICAL HISTORY: Hypertension, COPD, coronary artery disease, reflux, anxiety and sleep apnea. PAST SURGICAL HISTORY: Lumbar, kidney, coronary stent placement, carotid, esophagus, left total knee arthroplasty, left foot and right carpal and cubital tunnel releases. FAMILY HISTORY: Significant for ischemic heart disease. PRIMARY CARE PROVIDER: Dr. Macias. MEDICATIONS: Gabapentin, Ativan, ropinirole, amlodipine, furosemide, metoprolol, potassium, losartan, omeprazole and Eliquis. ALLERGIES: SULFA and DEMEROL. SOCIAL HISTORY: The patient is a former smoker and former alcohol consumer. PHYSICAL EXAMINATION: GENERAL: The patient is well developed, well-nourished, in no acute distress. HEENT: Normocephalic and atraumatic. Pupils are equal, round and reactive to light. Oropharynx is clear. NECK: Supple, no lymphadenopathy. LUNGS: Clear to auscultation bilaterally. HEART: Regular rate and rhythm. ABDOMEN: Soft, nontender and nondistended. EXTREMITIES: The left elbow demonstrated positive elbow flexion test. He has a positive Tinel's at the carpal and cubital tunnels. He has decreased sensation in the median and ulnar nerve distribution. He has weakness with finger abduction and thumb palmar abduction. IMPRESSION: Left cubital and carpal tunnel syndrome. PLAN: Left cubital and carpal tunnel releases. The risks, benefits, options, ramifications and recovery were discussed at length with the patient. He understands and wishes to proceed. Job ID: [id number] DocumentID: [id number] Dictated Date: 06/13/2019 12:36:27 Optometric Assistant Date: 06/13/2019 13:02:08 Dictated By: RAYMOND HESS MD
[~2019-06-27] VITALS: Ht 182.9 cm; Wt 95.0 kg
[2019-06-27] VITALS (13 sets, daily range): BP systolic 167–206; BP diastolic 92–111
[~2019-06-27 08:40] MED LIST changes: +HYDR-34 PO; -HYDR-3816 PO
[2019-06-27] MEDS ORDERED: LACTATED RINGERS 1,000 ML IV PRN (09:09)
[2019-06-27] MEDS ORDERED: ceFAZolin INJECTION 1,000 MG ONE (09:13)
[2019-06-27] MEDS ORDERED: WATER (STERILE) FOR INJECTION 10 ML ONE (09:14)
[2019-06-27] MEDS ORDERED: ceFAZolin INJECTION 1,000 MG in WATER (STERILE) FOR INJECTION 10 ML IV ONE (09:15)
--- NOTE | 2019-06-27 09:28 | Progress Note-Pre Operative ---
Pre-Operative Progress Note H&P Reviewed The H&P was reviewed, patient examined and no changes noted. Date Seen by Provider: Jun 27, 2019 Time Seen by Provider: 09:26 Date H&P Reviewed: Jun 27, 2019 Time H&P Reviewed: 09:27 Pre-Operative Diagnosis: left cubital and carpal tunnel syndromes RAYMOND HESS MD Jun 27, 2019 09:28
--- NOTE | 2019-06-27 09:29 | Progress Note-Post Operative ---
Post-Operative Progess Note Surgeon (s)/Photoengraving Proofer (s) Surgeon RAYMOND HESS MD Photoengraving Proofer: Rolando Coombs Pre-Operative Diagnosis left cubital and carpal tunnel syndromes Post-Operative Diagnosis left cubital and carpal tunnel syndromes Procedure & Operative Findings Date of Procedure 06/27/19 Procedure Performed/Findings left cubital and carpal tunnel releases Anesthesia Type GETA Estimated Blood Loss Estimated blood loss (mL): minimal Specimens/Packing Specimens Removed none Packing: none RAYMOND HESS MD Jun 27, 2019 09:29
[2019-06-27] MEDS ORDERED: LIDOCAINE 1% INJ 20 ML 20 ML VIAL ONE (10:19)
[2019-06-27] MEDS ORDERED: BUPIVACAINE 0.5% 30 ML (SENSORCAINE) VIAL ONE (10:19)
[2019-06-27] MEDS ORDERED: fentaNYL INJECTION 100 MCG/2 ML AMP ONE (11:04)
[2019-06-27] MEDS ORDERED: PROPOFOL INJECTION 50 ML IV ONE (11:52)
[2019-06-27] MEDS ORDERED: SEVOFLURANE (ULTANE) 15 ML INHAL SOLN ONE (11:52)
[2019-06-27] MEDS ORDERED: ONDANSETRON 4 MG/2 ML (SDV) Z0FRAN IVP PRN (12:00)
[2019-06-27] MEDS ORDERED: morphine INJ 10 MG/ML 1ML (SYR OR VIAL) IVP ONE (12:00)
[2019-06-27] MEDS ORDERED: meTOprolol 5 MG/5 ML (LOPRESSOR) VIAL ONE (12:09)
[2019-06-27] MEDS ORDERED: HYDROcodone/APAP 7.5 MG/325 MG (LORTAB, LORCET PLUS) TABLET PO PRN (12:15)
[2019-06-27] MEDS ORDERED: hydrALAZINE (APESOLINE) 20 MG/ML VIAL ONE (12:55)
[2019-06-27] MEDS ORDERED: hydrALAZINE (APESOLINE) 20 MG/ML VIAL IV ONE (13:00)
[2019-06-27] MEDS ORDERED: LABETALOL HCL 20 MG/4 ML VIAL ONE (13:29)
--- NOTE | 2019-06-27 13:39 | Anesthesia-General Post-Op ---
General Patient Condition Mental Status/LOC: Same as Preop Cardiovascular: Satisfactory (patient told to resume home meds and to follow up with PCP re: hypertention) Nausea/Vomiting: Absent Respiratory: Satisfactory Pain: Controlled Complications: Absent Post Op Complications Complications None Follow Up Care/Instructions Patient Instructions None needed. Anesthesia/Patient Condition Patient Condition Patient is doing well, no complaints, stable vital signs, no apparent adverse anesthesia problems. No complications reported per nursing. RK SANDY CRNA Jun 27, 2019 13:39
[2019-06-27] MEDS ORDERED: LABETALOL HCL 20 MG/4 ML VIAL IV ONE (13:45)
--- NOTE | 2019-06-27 17:00 | OPERATIVE REPORT ---
DATE OF SERVICE: 06/27/2019 PREOPERATIVE DIAGNOSES: 1. Left cubital tunnel syndrome. 2. Left carpal tunnel syndrome. POSTOPERATIVE DIAGNOSIS: 1. Left cubital tunnel syndrome. 2. Left carpal tunnel syndrome. PROCEDURES: 1. Left cubital tunnel release. 2. Left carpal tunnel release. SURGEON: Audie Hess MD RICE FARMWORKER: Rolando Coombs, who assisted throughout the procedure and closed the incisions. ANESTHESIA: General endotracheal by Leonora Jensen CRNA. TOURNIQUET TIME: 8 minutes at 250 mmHg. ESTIMATED BLOOD LOSS: Minimal. DRAINS: None. COMPLICATIONS: None. POSTOPERATIVE PLAN: Routine protocol. The patient was transferred to the recovery room awake and in stable condition. STATEMENT OF MEDICAL NECESSITY: The patient is a 73-year-old right hand dominant gentleman with complaints of left elbow and hand pain as well as paresthesias. He had decreased sensation in ulnar and median distribution, positive Tinel's with cubital and carpal tunnels with a positive elbow flexion test and a positive Phalen's maneuver. Due to functional impairment and failure to improve with conservative measures, the patient elected to proceed with surgical intervention. DESCRIPTION OF PROCEDURE: After risks and benefits of procedure were discussed and questions were answered, an informed consent was signed and placed on chart, the operative site was confirmed in the preoperative holding area initialed by the surgeon. The patient was transferred to the operating room. After adequate levels of general endotracheal anesthetic were obtained, a timeout was called, confirming the operative site. Left upper extremity was prepped and draped in the usual sterile fashion with the arm elevated, tourniquet was inflated to 250 mmHg. An L-shaped incision was made posterior to the medial epicondyle. The underlying soft tissues were carefully dissected. The ulnar nerve was identified proximal to the medial epicondyle and dissected to a 0.9 cm proximally. This was then dissected through the cubital tunnel into the flexor/pronator mass. The elbow was taken through range of motion and the nerve was found to be stable; therefore, a transposition was not performed. Attention was then turned to the carpal tunnel. Incision was made in line with radial border of the ring finger over the transverse carpal ligament. The soft tissues were sharply dissected exposing the transverse carpal ligament, which was then sharply incised by pushing through with the scalpel blade. The median nerve was identified and carefully protected throughout the procedure and intact at the conclusion of the procedure. This was confirmed fully released distally to the transverse carpal ligament spread above and below with dissection scissors and then while protecting the median nerve was released. This was confirmed fully released with a freer. The tourniquet was deflated for a total tourniquet time of 8 minutes. Pressure was used for hemostasis. Both wounds were copiously irrigated, 2-0 Vicryl was used to reapproximate subcutaneous tissue at the elbow incision and both skin incisions were closed with 4-0 nylon in running alternating horizontal mattress fashion. A soft dressing and a wrist splint were applied. The patient was transferred to the recovery room awake and in stable condition. Job ID: [id number] DocumentID: [id number] Dictated Date: 06/27/2019 11:54:17 Furnace Caretaker Date: 06/27/2019 16:59:26 Dictated By: AUDIE HESS MD
== END 2019-06-27 14:45 | disposition home or self-care (01) ==
LOC: SDC 08:40
PROVIDERS: ATTEND Orthopaedic Surgery
DX: G56.22 Lesion of ulnar nerve, left upper limb (principal); G56.02 Carpal tunnel syndrome, left upper limb; I10 Essential (primary) hypertension; I48.91 Unspecified atrial fibrillation; J44.9 Chronic obstructive pulmonary disease, unspecified; I25.10 Atherosclerotic heart disease of native coronary artery without angina pectoris; G47.33 Obstructive sleep apnea (adult) (pediatric); K21.9 Gastro-esophageal reflux disease without esophagitis; F41.9 Anxiety disorder, unspecified; Z79.899 Other long term (current) drug therapy; Z79.01 Long term (current) use of anticoagulants; Z87.891 Personal history of nicotine dependence; Z88.2 Allergy status to sulfonamides; Z88.5 Allergy status to narcotic agent; Z88.8 Allergy status to other drugs, medicaments and biological substances; Z79.82 Long term (current) use of aspirin; Z90.89 Acquired absence of other organs; Z90.49 Acquired absence of other specified parts of digestive tract
CPT/HCPCS: 87081

== ENCOUNTER → 2019-08-24 | Outpatient (CLI) | payer MEDICARE, OTHER ==
--- NOTE | 2019-08-24 14:50 | Diagnostic Imaging Report ---
PROCEDURE: US Renal Bilateral. TECHNIQUE: Multiple real-time grayscale images were obtained over the kidneys in various projections bilaterally. INDICATION: Acute kidney injury. FINDINGS; Right kidney measures 10.2 x 5.1 x 5.3 cm and the left kidney measures 10.5 x 4.5 x 5.8 cm. Right kidney is without evidence of calculi or hydronephrosis. There may be very mild cortical thinning on the right. Left kidney does contain a large cyst in the lower pole measuring 8.6 x 5.6 x 8.0 cm. There is also a smaller probable cyst approximately 2.5 cm in size posterior medial on the left. No hydronephrosis on the left is identified. No calculi are seen. Bladder is unremarkable. Right ureteral jet was not visualized. Left jet was visualized. IMPRESSION: 1. Left renal cysts. There is no evidence of calculi or hydronephrosis. Dictated by: Dictated on workstation # [id number]
== END ==
LOC: RAD 12:55
PROVIDERS: ATTEND Internal Medicine
DX: N17.9 Acute kidney failure, unspecified (principal); N28.1 Cyst of kidney, acquired
CPT/HCPCS: 76770

== ENCOUNTER → 2019-10-09 | Outpatient (CLI) | payer MEDICARE, OTHER ==
--- NOTE | 2019-10-09 11:38 | Diagnostic Imaging Report ---
INDICATION: End-stage renal disease. Bilateral renal sonography performed in the routine fashion compared to 08/24/2019. FINDINGS: The right kidney measured 9.4 x 5.4 x 5.2 cm. The left kidney measured 11.7 x 5.4 x 4.9 cm. There is no hydronephrosis. There are no sonographically evident calculi. The left kidney shows a large exophytic cyst off the midpole measuring 8.9 x 8.2 x 6.3 cm. The left kidney shows a small cyst medially measuring 2.2 x 3.4 cm. Urinary bladder appears unremarkable although ureteral jets could not be visualized. IMPRESSION: No hydronephrosis or renal mass. Kidneys are normal in size bilaterally. There is a large cyst off the left kidney laterally, with a smaller cyst in the mid midpole left kidney medially. Urinary bladder is grossly unremarkable. These findings are without significant change compared to 08/24/2019. Dictated by: Dictated on workstation # [id number]
== END ==
LOC: RAD 10:36
PROVIDERS: ATTEND Internal Medicine Nephrology
DX: I12.9 Hypertensive chronic kidney disease with stage 1 through stage 4 chronic kidney disease, or unspecified chronic kidney disease (principal); N18.3 Chronic kidney disease, stage 3 (moderate); R60.0 Localized edema; Z79.1 Long term (current) use of non-steroidal anti-inflammatories (NSAID); N28.1 Cyst of kidney, acquired
CPT/HCPCS: 76770

== ENCOUNTER 2019-10-31 16:21 | Inpatient (IN) | payer MEDICARE, OTHER ==
[~2019-10-31] VITALS: Ht 182.8 cm; Wt 110.8 kg
[2019-10-31] MEDS ORDERED: NS IV 1000 ML 1,000 ML IV ONE (16:54)
--- NOTE | 2019-10-31 17:01 | ED General ---
General Chief Complaint: Fever-Adult/Adol Stated Complaint: FEVER Source of Information: Patient Exam Limitations: No Limitations History of Present Illness Date Seen by Provider: Oct 31, 2019 Time Seen by Provider: 16:16 Initial Comments Here with report of fever. Apparently he had gone to his urologist office where he had fever noted. States he does not feel bad and denies cough, shortness of breath, chills, diarrhea, dysuria or pain anywhere. 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 He sat in his car with the windows down but better air conditioner was not on. He admits that he got quite hot waiting and it is in the upper 90s currently outside. Denies nausea, vomiting or diarrhea. Denies other concerns. Initial temperature on arrival was less 99 3 to 99 8 Fahrenheit. With one temperature noted as normal. Timing/Duration: 1/2 Hour Severity: Mild Associated Systoms: No Chest Pain, No Cough; Fever/Chills; No Nausea/Vomiting, No Shortness of Air, No Weakness Allergies and Home Medications Allergies Coded Allergies: Sulfa (Sulfonamide Antibiotics) (Verified Allergy, Mild, HIVES, 06/21/19) codeine (Verified Allergy, Mild, GI UPSET, pt has taken Lortab in the past, 06/21/19) meperidine (Verified Allergy, Mild, N/V, PATIENT TOLERATES FENTANYL, 06/21/19) Home Medications Amlodipine Besylate 5 Mg Tablet, 10 MG PO DAILY Prescribed by: DUKE ABAD on 01/29/19814 Aspirin 81 Mg Tab.chew, 81 MG PO DAILY Prescribed by: DUKE ABAD on 01/29/19814 Dabigatran Etexilate Mesylate 75 Mg Capsule, 75 MG PO BID, (Reported) Furosemide 40 Mg Tablet, 40 MG PO Q48H Prescribed by: DUKE ABAD on 01/29/19814 Gabapentin 100 Mg Capsule, 100 MG PO TID, (Reported) Lorazepam 0.5 Mg Tablet, 0.5 MG PO TID PRN for ANXIETY, (Reported) Losartan Potassium 100 Mg Tablet, 100 MG PO DAILY, (Reported) Metoprolol Succinate 100 Mg Tab.er.24h, 100 MG PO DAILY, (Reported) LAST FILLED #30 10-20-18 Multivitamin 1 Each Capsule, 1 EACH PO DAILY, (Reported) Omeprazole 20 Mg Capsule.dr, 20 MG PO DAILY, (Reported) Potassium Chloride 10 Meq Capsule.er, 10 MEQ PO BID, (Reported) Ropinirole HCl 0.25 Mg Tab, 0.5 MG PO HS PRN for restless legs Prescribed by: DUKE ABAD on 01/29/19 8408 Patient Home Medication List Home Medication List Reviewed: Yes Review of Systems Review of Systems Constitutional: see HPI; No chills; fever; No malaise, No weakness EENTM: No nose congestion, No throat pain Respiratory: see HPI; No cough, No short of breath Cardiovascular: No chest pain, No edema Gastrointestinal: No abdominal pain, No nausea, No vomiting Genitourinary: No dysuria, No pain Musculoskeletal: no symptoms reported Skin: no symptoms reported All Other Systems Reviewed Negative Unless Noted: Yes Past Cfodpbt-Rrjend-Qwcbpb Hx Past Med/Social Hx: Reviewed Nursing Past Med/Soc Hx Patient Social History Alcohol Use: Past History Recreational Drug Use: No Smoking Status: Former Smoker Type Used: Cigarettes Former Smoker, Quit: Dec 25, 2018 2nd Hand Smoke Exposure: Yes Recent Hopitalizations: Yes (DEC-FEB FOR A-FIB) Immunizations Up To Date Tetanus Booster (TDap): Unknown PED Vaccines UTD: No Date of Pneumonia Vaccine: Apr 25, 2015 Date of Influenza Vaccine: Jan 29, 2019 Seasonal Allergies Seasonal Allergies: Yes Past Medical History Surgeries: Yes (L TKR, STENTS R LEG X2, BACK, KIDNEY STONES, RIGHT CTR) Coronary Stent, Gallbladder, Joint Replacement Respiratory: Yes Asthma, Sleep Apnea, COPD, Emphysema Currently Using CPAP: No Currently Using BIPAP: No Cardiac: Yes (STENT-2017) Atrial Fibrillation, Coronary Artery Disease, Hypertension, Peripheral Vascular Neurological: No Sexually Transmitted Disease: No HIV/AIDS: No Genitourinary: Yes Kidney Stones Gastrointestinal: Yes Gastroesophageal Reflux, Pancreatitis Musculoskeletal: Yes Arthritis Endocrine: No HEENT: No (GLASSES) Loss of Vision: Denies Hearing Impairment: Denies Cancer: No Skin What Type of Treatment Did You: Surgical Intervention Psychosocial: No Integumentary: No Blood Disorders: No Adverse Reaction/Blood Tranf: No (N/A) Family Medical History Reviewed Nursing Family Hx Patient reports no known family medical history. Cancer Physical Exam-Suspected Sepsis Physical Exam Vital Signs Vital Signs - First Documented 10/31/19 16:21 Temp 37.7 Pulse 80 Resp 22 B/P (MAP) 151/81 (104) Pulse Ox 93 O2 Delivery Room Air Capillary Refill : Height, Weight, BMI Height: 5'11.00" Weight: 191lbs. 0.0oz. 86.505056pn; 28.39 BMI Method:Stated General Appearance: No Apparent Distress, WD/WN HEENT: PERRL/EOMI, Pharynx Normal Neck: Non Tender, Supple Respiratory: Lungs Clear, Normal Breath Sounds Cardiovascular: Regular Rate, Rhythm, No Murmur Gastrointestinal: Non Tender, Soft Back: Normal Inspection, No CVA Tenderness, No Vertebral Tenderness Extremity: Normal Range of Motion, Non Tender Neurologic/Psychiatric: Alert, Oriented x3 Skin: normal color, warm/dry Focused Exam Lactate Level 10/31/19 16:45: Lactic Acid Level 1.67 Lactic Acid Level Laboratory Tests Test 10/31/19 16:45 Lactic Acid Level 1.67 MMOL/L (0.50-2.00) Progress/Results/Core Measures Suspected Sepsis SIRS Temperature: Pulse: Respiratory Rate: Laboratory Tests 10/31/19 16:45: White Blood Count 10.7 Blood Pressure / Mean: 10/31/19 16:45: Lactic Acid Level 1.67 Laboratory Tests 10/31/19 16:45: Creatinine 1.69H, INR Comment 1.1, Platelet Count 220, Total Bilirubin 0.4 Results/Orders Lab Results Laboratory Tests Test 10/31/19 16:45 Range/Units White Blood Count 10.7 4.3-11.0 10^3/uL Red Blood Count 4.01 L 4.35-5.85 10^6/uL Hemoglobin 13.1 L 13.3-17.7 G/DL Hematocrit 40 40-54 % Mean Corpuscular Volume 99 80-99 FL Mean Corpuscular Hemoglobin 33 25-34 PG Mean Corpuscular Hemoglobin Concent 33 32-36 G/DL Red Cell Distribution Width 13.5 10.0-14.5 % Platelet Count 220 130-400 10^3/uL Mean Platelet Volume 11.1 H 7.4-10.4 FL Neutrophils (%) (Auto) 62 42-75 % Lymphocytes (%) (Auto) 22 12-44 % Monocytes (%) (Auto) 10 0-12 % Eosinophils (%) (Auto) 5 0-10 % Basophils (%) (Auto) 1 0-10 % Neutrophils # (Auto) 6.7 1.8-7.8 X 10^3 Lymphocytes # (Auto) 2.4 1.0-4.0 X 10^3 Monocytes # (Auto) 1.1 H 0.0-1.0 X 10^3 Eosinophils # (Auto) 0.5 H 0.0-0.3 10^3/uL Basophils # (Auto) 0.1 0.0-0.1 10^3/uL Erythrocyte Sedimentation Rate 22 0-30 MM/HR Prothrombin Time 14.4 12.2-14.7 SEC INR Comment 1.1 0.8-1.4 Activated Partial Thromboplast Time 48 H 24-35 SEC D-Dimer 0.46 0.00-0.49 UG/ML Sodium Level 139 135-145 MMOL/L Potassium Level 4.4 3.6-5.0 MMOL/L Chloride Level 102 98-107 MMOL/L Carbon Dioxide Level 24 21-32 MMOL/L Anion Gap 13 5-14 MMOL/L Blood Urea Nitrogen 19 H 7-18 MG/DL Creatinine 1.69 H 0.60-1.30 MG/DL Estimat Glomerular Filtration Rate 40 BUN/Creatinine Ratio 11 Glucose Level 68 L 70-105 MG/DL Lactic Acid Level 1.67 0.50-2.00 MMOL/L Calcium Level 9.7 8.5-10.1 MG/DL Corrected Calcium 9.5 8.5-10.1 MG/DL Total Bilirubin 0.4 0.1-1.0 MG/DL Aspartate Amino Transf (AST/SGOT) 16 5-34 U/L Alanine Aminotransferase (ALT/SGPT) 11 0-55 U/L Alkaline Phosphatase 80 40-136 U/L Lactate Dehydrogenase 213 125-220 U/L C-Reactive Protein High Sensitivity 1.25 H 0.00-0.50 MG/DL Total Protein 8.2 6.4-8.2 GM/DL Albumin 4.3 3.2-4.5 GM/DL My Orders Orders - MARY BARKER MD Cbc With Automated Diff (10/31/19 16:24) Comprehensive Metabolic Panel (10/31/19 16:24) Hs C Reactive Protein (10/31/19 16:24) Ua Culture If Indicated (10/31/19 16:24) Blood Culture (10/31/19 16:24) Ed Iv/Invasive Line Start (10/31/19 16:24) Chest 1 View, Ap/Pa Only (10/31/19 16:24) Ns Iv 1000 Ml (Sodium Chloride 0.9%) (10/31/19 16:54) Sputum Culture (10/31/19 17:49) Protime With Inr (10/31/19 17:49) Partial Thromboplastin Time (10/31/19 17:49) Vital Signs Adult Sepsis Patie Q15M (10/31/19 17:49) O2 (10/31/19 17:49) Remove Rings In Anticipation O (10/31/19 17:49) Fibrin Degradation Products (10/31/19 17:49) Procalcitonin (Pct) (10/31/19 17:49) Erythrocyte Sedimentation Rate (10/31/19 17:49) LDH (10/31/19 17:49) Coronavirus Sars-Cov-2 So 2018 (10/31/19 17:49) Lactic Acid Analyzer (10/31/19 18:06) Cefepime 1 Gm Iv (1x Dose) (10/31/19 18:30) Medications Given in ED Current Medications Medications Dose Ordered Sig/Justen Route Start Time Stop Time Status Last Admin Dose Admin Sodium Chloride 1,000 ml @ 0 mls/hr Q0M ONCE IV 10/31/19 16:54 10/31/19 16:55 DC 10/31/19 16:57 500 MLS/HR Vital Signs/I&O 10/31/19 16:21 Temp 37.7 Pulse 80 Resp 22 B/P (MAP) 151/81 (104) Pulse Ox 93 O2 Delivery Room Air Capillary Refill : Progress Note : Progress Note Seen and evaluated. Because of the varying temperatures and history we will check some basic labs and ensure his safety. IV, labs, blood cultures and lactic acid ordered as well as UA and chest x-ray. Normal saline 500 mL bolus initiated. Patient still without complaint. Monitor patient. 1717: We have updated his . Patient still doing okay. Awaiting UA sample. 1816: Chest x- ray concerning for bilateral lateral infiltrates concerning for pneumonia. 19 is in the differential. We will go ahead and get COVID-19 swab as well as blood culture second set and lactic acid. Patient admits that he's had some wheezing and cough for the past few days. I discussed the case with Dr. Vaughn. Due to history of prolonged disease, we will initiate cefepime 1 g IV now and continue that. His is bringing his medicines as the patient does not know his current med list. She was informed of the COVID-19 evaluation and that he would have no visitors until that was resulted. Admit, inpatient status. Patient agrees to plan. Diagnostic Imaging Diagonstic Imaging: Xray Plain Films/CT/US/NM/MRI: chest Comments NAME: PAULINA VALDERRAMA [facility] REC#: [id number] PT STATUS: REG ER : 1945 PHYSICIAN: MARY BARKER MD ADMIT DATE: 10/31/19/ER Draft Date of Exam:10/31/19 CHEST 1 VIEW, AP/PA ONLY INDICATION: Fever. COMPARISON: January 28, 2019. TECHNIQUE: Single radiograph of the chest dated October 31, 2019. FINDINGS: The cardiac silhouette is enlarged. No significant pulmonary vascular congestion. Background reticular and hazy groundglass opacities are noted within the lungs bilaterally. Although many of these opacities appear similar to prior radiographs from January 2019, most recent CT from May 2019 demonstrated that majority of these opacities appear to have been resolved. Therefore, the majority of these opacities do appear to relate to an acute etiology. No significant pleural effusion. No pneumothorax. No acute osseous abnormality. IMPRESSION: Mild bilateral reticular and patchy pulmonary opacities. The majority appear new since 2019, consistent with an acute infiltrate. This is a nonspecific finding though may relate to organizing pneumonia, including COVID-19. Recommend clinical correlation and correlation with potential lab test. Mild cardiomegaly without pulmonary vascular congestion. Report was called to the [facility] ER at 5:44 p.m., by yunior (for JOSE ROBERTO). Dictated on workstation # [id number] Dict: 10/31/198 Trans: 10/31/191747 YUNIOR [id number] Interpreted by: MIGUEL SOLIS MD Electronically signed by: Departure Communication (Admissions) Time/Spoke to Admitting Phy: 18:12 Impression Primary Impression: Bilateral pneumonia Qualified Codes: J18.1 - Lobar pneumonia, unspecified organism Additional Impression: COVID-19 evaluation Disposition: 09 ADMITTED INPATIENT Condition: Stable Admissions Decision to Admit Reason: Admit from ER (General) Decision to Admit/Date: Oct 31, 2019 Time/Decision to Admit Time: 18:12 Departure-Patient Inst. Referrals: ELMER FLOREZ MD (PCP/Family) Primary Care Physician MARY BARKER MD Oct 31, 2019 17:01
[2019-10-31 17:04] LABS: BASOPHILS # (AUTO) 0.1 10^3/uL (0.0-0.1); BASOPHILS % (AUTO) 1 % (0-10); EOSINOPHILS # (AUTO) 0.5 10^3/uL (0.0-0.3); EOSINOPHILS % (AUTO) 5 % (0-10); HEMATOCRIT 40 % (40-54); HEMOGLOBIN 13.1 G/DL (13.3-17.7); LYMPHOCYTES # (AUTO) 2.4 X 10^3 (1.0-4.0); LYMPHOCYTES % (AUTO) 22 % (12-44); MEAN CORPUSCULAR HEMOGLOBIN 33 PG (25-34); MEAN CORPUSCULAR HGB CONC 33 G/DL (32-36); MEAN CORPUSCULAR VOLUME 99 FL (80-99); MEAN PLATELET VOLUME 11.1 FL (7.4-10.4); MONOCYTES # (AUTO) 1.1 X 10^3 (0.0-1.0); MONOCYTES % (AUTO) 10 % (0-12); NEUTROPHILS # (AUTO) 6.7 X 10^3 (1.8-7.8); NEUTROPHILS % (AUTO) 62 % (42-75); PLATELET COUNT 220 10^3/uL (130-400); RED CELL DISTRIBUTION WIDTH 13.5 % (10.0-14.5); WHITE BLOOD COUNT 10.7 10^3/uL (4.3-11.0)
[2019-10-31 17:17] LABS: ALBUMIN 4.3 GM/DL (3.2-4.5); POTASSIUM 4.4 MMOL/L (3.6-5.0)
--- NOTE | 2019-10-31 17:17 | NUR ---
called with update at this time.
[2019-10-31 17:18] LABS: CALCIUM 9.7 MG/DL (8.5-10.1)
[2019-10-31 17:19] LABS: TOTAL PROTEIN 8.2 GM/DL (6.4-8.2)
[2019-10-31 17:21] LABS: BILIRUBIN,TOTAL 0.4 MG/DL (0.1-1.0)
[2019-10-31 17:23] LABS: CREATININE SERUM 1.69 MG/DL (0.60-1.30)
--- NOTE | 2019-10-31 17:30 | NUR ---
Pt attempted to give urine sample. Pt spilled sample on floor.
--- NOTE | 2019-10-31 17:46 | Diagnostic Imaging Report ---
INDICATION: Fever. COMPARISON: January 28, 2019. TECHNIQUE: Single radiograph of the chest dated October 31, 2019. FINDINGS: The cardiac silhouette is enlarged. No significant pulmonary vascular congestion. Background reticular and hazy groundglass opacities are noted within the lungs bilaterally. Although many of these opacities appear similar to prior radiographs from January 2019, most recent CT from May 2019 demonstrated that majority of these opacities appear to have been resolved. Therefore, the majority of these opacities do appear to relate to an acute etiology. No significant pleural effusion. No pneumothorax. No acute osseous abnormality. IMPRESSION: Mild bilateral reticular and patchy pulmonary opacities. The majority appear new since 2019, consistent with an acute infiltrate. This is a nonspecific finding though may relate to organizing pneumonia, including COVID-19. Recommend clinical correlation and correlation with potential lab test. Mild cardiomegaly without pulmonary vascular congestion. Report was called to the [facility] ER at 5:44 p.m., by melanie (for JOSE ROBERTO). Dictated by: Dictated on workstation # [id number]
[2019-10-31 18:06] LABS: FIBRIN DEGRADATION PRODUCTS 0.46 UG/ML (0.00-0.49); INR 1.1 (0.8-1.4); PROTHROMBIN TIME PATIENT 14.4 SEC (12.2-14.7)
--- NOTE | 2019-10-31 18:11 | NUR ---
Pt swabbed for COVID-19 at this time.
[2019-10-31] MEDS ORDERED: CEFEPIME INJECTION 1,000 MG in WATER (STERILE) FOR INJECTION 10 ML IV ONE (18:30)
[2019-10-31] MEDS ORDERED: LACTATED RINGERS 1,000 ML IV SCH (19:00)
[2019-10-31 19:15] VITALS: BP 166/77
[2019-10-31] MEDS ORDERED: CATHETER FLUSH 10 ML SYR IV PRN (19:15)
--- NOTE | 2019-10-31 19:15 | NUR ---
PAULINA VALDERRAMA admitted to room 423-1, with an admitting diagnosis of bilateral pna. covid 19 eval, on 10/31/19 from ER via , accompanied by staff. PAULINA VALDERRAMA introduced to surroundings, call light, bed controls, phone, TV, temperature control, lights, meal times, smoking policy, visitor policy, side rail policy, bathrooms and showers. Patient Rights given to patient in the handbook. PAULINA VALDERRAMA verbalizes understanding that [facility] is not responsible for the loss or damage to any personal effects or valuables that are kept in the patients posession during their hospitalization.
[2019-10-31 19:20] VITALS: BP_SYST 117; BP_SYST 128; BP_SYST 136; BP_SYST 137; BP_SYST 138; BP_SYST 144; BP_SYST 146; BP_SYST 147; BP_SYST 150; BP_SYST 151; BP_SYST 156; BP_DIAS 56; BP_DIAS 57; BP_DIAS 63; BP_DIAS 69; BP_DIAS 70; BP_DIAS 71; BP_DIAS 73; BP_DIAS 79; BP_DIAS 82; BP_DIAS 83; BP_DIAS 87
[2019-10-31 20:04] VITALS: BP 151/81
[2019-10-31] MEDS ORDERED: ALBUTEROL/IPRATROP (COMBIVENT RESPIMAT) 4 GM INHALER IH PRN (20:15)
--- OUTSIDE RECORDS SUMMARY | 2019-10-31 20:52 | XMS REPORT | Encounter Summary ---
Author [facility] Address [address] [place] [address] Phone Unavailable Care Team Providers Care Epidemiology Internship Name Role Phone RAYMOND MAI PCP Unavailable Insurance Providers: All historical and current Section Date Range: From patient's date of to the date document was create d. This section includes the names of all active insurance providers for the dennis mercado Insurance Provider Type of Coverage Plan Name Start of Policy [place] End of Policy Coverage Group Number Member ID Insurance Provider's Telephone N umber Policy Osei's Name Patient's Relationship to Policy Osei MEDICARE (WNR) MEDICARE (M) PART A August 23, 2012 PART A [id number] MARTINTATYANAPAULINA PATIENT MEDICARE (WNR) MEDICARE (M) PART B August 23, 2012 PART B [id number] MARIOTATYANAPAULINA PATIENT Selected Encounter This section includes the information on record at [place] for the Encounter. Date/Time Encounter Type Encounter Description Reason Provider Source Apr 02, 2019 09:21 AM Outpatient Encounter ADMIN PAT ACTIVTIES (MASNO NCT) [facility] IHE Encounter Template Text not used by VA Assessments - Encounter Diagnoses No Data Provided for This Section Plan of Treatment: Future Appointments (+ 6 months) and Future Tests (+/- 45 day s) The Plan of Treatment section includes future care activities for the patient fr om all VA treatment facilities. This section includes future appointments and fu ture orders which are active, pending or scheduled. Future Appointments This section includes appointments that were scheduled t o occur 6 months from the date of the Encounter, up to a maximum of 20 appointme nts. The data comes from all [place] treatment facilities. Appointment Date/Time Appointment Type Appointment Facili ty Name Sep 27, 2019 09:00 AM AMBULATORY - PSYCHIATRY [facility] Surgical Procedures: All associated to the encounter No Data Provided for This Section Lab Results: +/- 30 days of the encounter No Data Provided for This Section Vital Signs: All taken on the encounter date No Data Provided for This Section Immunizations: All administered on the encounter date No Data Provided for This Section Social History: Smoking Status (Most current) and Tobacco Use (All prior to enco unter date) This section includes the most current, and the historical, smoking and tobacco- related health factors from the [place] facility where the Encounter took place. Current Smoking Status This section includes the most current smoking, or tobacco -related health factor, from the [place] facility where the Encounter took place. 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 The data comes from the [place] facility where the Encounter took place. 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 [facility] Oct 19, 2018 08:40 AM VA-TOBACCO USE MED NO [facility] Oct 19, 2018 08:40 AM VA-TOBACCO USE WI 30 MIN OF WAKEUP P YULIANA [facility] Oct 19, 2018 08:40 AM VA-TOBACCO USER EVERY DAY [facility] Nov 17, 2017 09:05 AM CURRENT TOBACCO USER [facility] Nov 17, 2017 09:05 AM CURRENT TOBACCO USER (NOT READY TO KAILYN T) [facility] Nov 17, 2017 09:05 AM TOBACCO CESSATION REFERRAL DECLINED [facility] Nov 17, 2017 09:05 AM TOBACCO MEDS OFFERED BUT DECLINED PA VELMA [facility] Nov 17, 2017 09:05 AM TOBACCO USER OFFERED MEDS [facility] Advance Directives: All historical and current No Data Provided for This Section Allergies and Adverse Reactions (ADRs): All historical and current Section Date Range: From patient's date of to the date document was create d. This section includes Allergies and Adverse Reactions (ADR s) on record with [place] for the patient. The data comes from a ll [place] treatment facilities. It does not list Allergies/ADRs that were removed or entered in error. Some allergies/ADRs may be reported in t he Immunization section. Allergen Event Date Event Type Reaction(s) Severity Source CODEINE Nov 18, 2009 Propensity to adverse reactions to drug (disorder) Eruption [facility], [facility] DEMEROL HYDROCHLORIDE INJECTION 50 MG/ML Nov 18, 2009 Propensity to adverse reactions to drug (disorder) Urticaria [facility] MEPERIDINE Nov 18, 2009 Propensity to adverse reactions to drug (disorder) Eruption [facility], [facility] SULFA DRUGS Nov 18, 2009 Propensity to adverse reactions to drug (disorder) Eruption [facility], [facility] 15 Medications: VA dispensed (-15 months) and Non-VA Documented (Obtained Outside A) Section Date Range: 1) prescriptions processed by a [place] pharmacy in the last 15 m [facility], and 2) all medications recorded in the [place] medical record as "non-VA medic ations". Pharmacy terms refer to [place] pharmacy's work on prescriptions. VA patient s are advised to take their medications as instructed by their health care team. The data comes from all [place] treatment facilities. Glossary of Pharmacy Terms:Active = A prescription that can be filled at the local [place] pharmacy.Active: On Hold = An active prescription that will not be filled until pharmacy resolves the issue.Active: Susp = An active prescription that is not scheduled to be filled yet.Clinic Order = A medication received during a visit to a [place] clinic or emergency department (currently not available).Discontinued = A prescription stopped by a VA provider. It is no longer available to be filled. = A prescription which is too old to fill. This does not refer to the expiration date of the medication in the container. Non-VA = A medication that came from someplace other than a VA pharmacy. This may be a prescription from either the VA or other providers that was filled outside the VA. Or, it may be an over the counter (OTC), herbal, dietary supplement or sample medication.Pending = This prescription order has been sent to the Pharmacy for review and is not ready yet. Medication Name and Strength Pharmacy Term Instructions Quantity Or dered Prescription Expires Prescription Number Last Dispense Date Ordering Provider Facility ALBUTEROL SO4 90MCG/ACTUAT (CFC-F) INHL,ORAL,6.7GM Active INHALE 2 PUFFS BY ORAL INHALATION FOUR TIMES A DAY FOR BREATHING. SHAKE WELL. RINSE MOUTHPIECE FREQUENTLY TO PREVENT CLOGGING. 3 Nov 18, 2019 [id number] Nov 17, 2 019 ANTHONY BLEVINS AMLODIPINE BESYLATE 10MG TAB Active TAKE ONE TA BLET BY MOUTH EVERY MORNING FOR HEART/BLOOD PRESSURE DR FLOREZ 90 Feb 29, 2020 [id number] Sep 30, 2 020 ANTHONY BLEVINS AMYLASE 120,000UNIT/LIPASE 24,000UNIT/PROTEASE 76,000UNIT CA P,EC Discontinued TAKE 2 CAPSULES BY MOUTH THREE TIMES DAILY BEFORE MEALS FOR PANCREATIC ENZYME REPLACEMENT. TAKE WITH FOOD DIRECTED. DR FLOREZ, [facility] 270 Jan 22, 2019 [id number] Oct 31, 2018 ANTHONY BLEVINS AMYLASE 120,000UNIT/LIPASE 24,000UNIT/PROTEASE 76,000UNIT CA P,EC Discontinued TAKE 1 CAPSULE BY MOUTH ONCE A DAY NEEDED FOR PANCREATIC ENZYME REPLACEMENT. TAKE WITH FOOD DIRECTED. TAKE ONE TABLET BEFORE SNACKS DR FLOREZ DEMOLITION EXPERT FOR PANCREATIC ENZYME REPLACEMENT. TAKE WITH FOOD DIRECTED. TAKE ONE TABLET BEFORE SNACKS DR FLOREZ DEMOLITION EXPERT 180 Jan 22, 2019 [id number] Oct ANTHONY BLEVINS AMYLASE 120,000UNIT/LIPASE 24,000UNIT/PROTEASE 76,000UNIT CA P,EC TAKE 1 CAPSULE BY MOUTH ONCE A DAY NEEDED FOR PANCREATIC ENZYME REPLACEMENT. TAKE WITH FOOD DIRECTED. TAKE ONE TABLET BEFORE SNACKS DR FLOREZ DEMOLITION EXPERT FOR PANCREATIC ENZYME REPLACEMENT. TAKE WITH FOOD DIRECTED. TAKE ONE TABLET BEFORE SNACKS DR FLOREZ DEMOLITION EXPERT 180 Feb 15, 2019 [id number] Dec ANTHONY BLEVINS CLOPIDOGREL BISULFATE 75MG TAB Non-VA TAKE ONE TABLET BY MOUTH QOD Non-VA Documented by: BARBARA GAMEZ nted at: [facility] DABIGATRAN ETEXILATE 75MG CAP,ORAL Active TAKE ONE CAPSULE BY MOUTH TWO TIMES A DAY TO THIN BLOOD. DO NOT OPEN PACKAGE UNTIL READY FOR DOSE TO MAINTAIN STABILITY 180 Apr 04, 2020 [id number] Aug 13, 2019 ANTHONY BLEVINS DOXAZOSIN MESYLATE 4MG TAB Non-VA TAKE ONE- HALF TABLET BY MOUTH AT BEDTIME Non-VA Docume nted by: GABRIELE CRUMPume nted at: [facility] ESCITALOPRAM OXALATE 20MG TAB Non-VA TAKE ONE-HALF TABLET BY MOUTH TWO TIMES A DAY Non-VA Documented by: NOAH ANDUJAR Docume nted at: [facility] FUROSEMIDE 40MG TAB Active TAKE ONE TABLET BY M OUTH EVERY MORNING FOR FLUID RETENTION DR FLOREZ 90 Feb 29, 2020 [id number] September 06, 2019 AKI BLEVINS FUROSEMIDE 40MG TAB Non- VA TAKE ONE TABLET BY MOUTH EVERY MORNING Non-VA Documented by: BARBARA GAMEZ nted at: [facility] GABAPENTIN 100MG CAP Active: Susp TAKE TWO CAPSULES B Y MOUTH THREE TIMES A DAY DR FLOREZ 540 Feb 29, 2020 [id number] Dec 20, 2019 ANTHONY BLEVINS CBOC GABAPENTIN TAB Non- VA TAKE 100 MG BY MOUTH THREE TIMES A DAY Non-VA Documented by: BARBARA GAMEZ nted at: [facility] LORAZEPAM 0.5MG TAB Non- VA TAKE ONE TABLET BY MOUTH EVERY 8 HOURS NEEDED Non-VA Docume nted by: BARBARA GAMEZ Docume nted at: [facility] MUÑOZ LOSARTAN POTASSIUM 100MG TAB Active TAKE ONE TABLET BY MOUTH ONCE A DAY Jun 21, 2020 [id number] Jul 14, 2019 ANTHONY BLEVINS LOSARTAN POTASSIUM 100MG TAB Discontinued TAKE ONE TABLET BY MOUTH ONCE A DAY Nov 18, 2019 [id number] May 22, 2019 ANTHONY BLEVINS LOSARTAN POTASSIUM 100MG TAB Discontinued TAKE ONE TABLET BY MOUTH ONCE A DAY September 09, 2019 [id number] Oct 16, 2018 ANTHONY BLEVINS MAGNESIUM OXIDE 400MG TAB Non-VA TAKE ONE TABLET BY MOUTH ONCE A DAY Non-VA Documented by: GABRIELE CRUMP Docume nted at: [facility] METOPROLOL SUCCINATE 200MG TAB,SA Active TAKE O NE-HALF TABLET BY MOUTH EVERY MORNING FOR HEART/BLOOD PRESSURE. SWALLOW WHOLE, DO NOT CRUSH OR CHEW (TABLETS MAY BE CUT IN HALF). DR FLOREZ FOR HEART/BLOOD PRESSURE. SWALLOW WHOLE, DO NOT CRUSH OR CHEW (TABLETS MAY BE CUT IN HALF). DR FLOREZ 45 Feb 28, 2 020 [id number] September 20, 2019 ANTHONY BLEVINS OMEPRAZOLE 20MG CAP,EC Active TAKE 1 CAPSULE BY MOUTH EVERY MORNING TO LOWER STOMACH ACID. TAKE 30 MINUTES PRIOR TO FOOD. 90 Nov 18, 2019 [id number] September 06, 2019 ANTHONY BLEVINS OMEPRAZOLE 20MG CAP,EC Discontinued TAKE 1 CAPSULE BY MOUTH EVERY MORNING TO LOWER STOMACH ACID. TAKE 30 MINUTES PRIOR TO FOOD. 90 Nov 19, 2018 [id number] September 08, 2018 ANTHONY BLEVINS ONDANSETRON HCL 8MG TAB TAKE ONE-HALF TA BLET BY MOUTH EVERY 4 HOURS NEEDED FOR NAUSEA Dec 17, 2018 [id number] Nov 17, 2018 ANTHONY BLEVINS ARSORA MUÑOZ POTASSIUM CHLORIDE 20MEQ TAB,SA (DISPERSIBLE) Non-VA TAKE ONE-HALF TABLET BY MOUTH EVERY MORNING Non-VA Documented by: BARBARA GAMEZ nted at: KRISTIN MUÑOZ ROPINIROLE HCL 0.5MG TAB Active TAKE ONE TABLET BY MOUT H AT BEDTIME DR FLOREZ 90 Feb 29, 2020 [id number] September 09, 2019 ANTHONY BLEVINS Problems (Conditions): All historical and current Section Date Range: From patient's date of to the date document was create d. This section includes a list of Problems (Conditions) know n to [facility] for the patient. It includes both active and inacti ve problems (conditions). The data comes from all [place] treatment facilities. Problem Status Problem Code Date of Onset Date of Resolution Comm ent(s) Provider Source Abnormal vision Active [id number] Sep 24, 2 017 Entered By: GABRIELE CRUMP Comment: GABRIELE [place] [facility] AF- Atrial Fibrillation ([facility] [id number]) Active 40619703 Mar 30, 2019 Entered By: ANTHONY BLEVINS Comment: Dr Florez 02/20/29 ANTHONY BLEVINS [facility] Benign hypertension Active 25610096 ROLDAN YEUNG [facility] CAD - Coronary artery disease Active 84874684 GABRIELE [facility]. [facility] Chronic kidney disease stage 3 Active 193512815 [facility] Chronic obstructive lung disease Active 00421197 ANTHONY BLEVINS [facility] Chronic pancreatitis Active 792642128 Sergio BLEVINS RET [facility] Dyspnea on exertion Active 12461808 ANJANA,ANJ [facility] Gastroesophageal reflux disease without esophagitis Active 30699298 5 ANJANABURAK RIVERA [facility] History of fall Active 467852951 BURAK YEUNG [facility] Impaired fasting glucose Active 410362928 GABRIELE GLASS [facility] Low back pain Active 420226815 Sep 24 7 Entered By: GABRIELE CRUMP Comment: had lumbar spine surgery of some type in september 2015 (approx) GABRIELE CRUMP [facility] Peripheral vascular disease Active 443327266 BU ANTHONY CARLSON [facility] Post percutaneous transluminal coronary angioplasty Active 084304 000 Sep 24, 2016 Entered By: GABRIELE CRUMP Comment: x 2015 [facility] Carotid artery stenosis (SNOMED CT 14511903) Inactive 433.10 Nov 17, 2018 BURAK YEUNG [facility] Cough (ICD-9-CM 786.2) Inactive 786.2 Nov 18, 2017 HAS BURAK RAMIREZ [facility] Dyslipidemia (ICD-9-CM 272.4) Inactive 272.4 Nov 18, 2017 BURAK YEUNG [facility] Essential Hypertension (ICD-9-CM 401.9) Inactive 401.9 Nov 18, 2017 BURAK YEUNG [facility] GERD * (ICD-9-CM 530.81) Inactive 530.81 Nov 18, 2017 H BURAK BRENNAN [facility] Impaired Fasting Glucose (ICD-9-CM 790.21) Inactive 790.21 Nov 18, 2017 ANJANABURAK RIVERA [facility] Kidney Stones (ICD-9-CM 592.0) Inactive 592.0 Nov 18, 2017 ANJANA,ANJUM [facility] NEED INOC./VARICELLA - Need for inoculation against va ricella (ICD-9-CM V05.4) Inactive V05.4 Nov 18, 2017 [facility]JANA,[facility]JUM [facility] Peripheral vascular disease (SNOMED CT 525747395) Inactive 443.9 Nov 17, 2018 BURAK YEUNG [facility] PROPHY VACC STREP PNEU&FLU Inactive V06.6 Nov 18, 2017 ANJANA,ANJUM [facility] PROPHY VACC. STREP PNEU Inactive V03.82 Nov 18, 2017 SENA EMILYBURAK [facility] TETANUS TOXOID INOCULAT Inactive V03.7 Nov 18, 2017 [facility] Tobacco Use Disorder * (ICD-9-CM 305.1) Inactive 305.1 Nov 18, 2017 [facility] Radiology Reports: +/- 30 days of the encounter No Data Provided for This Section Pathology Reports: +/- 30 days of the encounter No Data Provided for This Section Encounter Notes: All associated encounter notes This section contains the clinical notes associated to the Encounter. Date/Time Encounter Note(s) Provider Source Apr 02, 2019 09:21 AM ADMINISTRATIVE NOTE: LOCAL TITLE: [place]-ADMIN [facility] STANDARD TITLE: ADMINISTRATIVE NOTE DATE OF NOTE: APR 02, 2019@09:21 ENTRY DATE: APR 02, 2019@09:21:08 AUTHOR: PITER KNIGHT EXP COSIGNER: URGENCY: STATUS: COMPLETED [facility] Administrative Note: RECORDS RECEIVED TODAY by: Fax Nature of report:rx for dabigatrin Date(s) of record(s):04/02/2019 Sending constitution party:[facility] RHODA /xavier/ PITER FOSTER Signed: 04/02/2019 09:21 PITER KNIGHT OC
--- OUTSIDE RECORDS SUMMARY | 2019-10-31 20:52 | XMS REPORT | Encounter Summary ---
Author Author [facility] Address [address] [place] [address] Phone Unavailable Care Team Providers Care Plant Control Aide Name Role Phone RAYMOND MAI PCP Unavailable [...] PART A August 23, 2012 PART A [id number] TATYANA MARTINITH PATIENT MEDICARE (WNR) MEDICARE (M) PART B August 23, 2012 PART B [id number] MARIOPAULINA PATIENT Selected Encounter This section includes the information on record at AL for the Encounter. Date/Time Encounter Type Encounter Description Reason Provider Source August 27, 2019 11:39 AM Outpatient Encounter ADMIN PAT ACTIVTIES ([facility]) [facility] Encounter Template Text not used by [...] appointme nts. The data comes from all AL treatment facilities. Appointment Date/Time Appointment Type Appointment Facili ty Name Sep 27, 2019 09:00 AM AMBULATORY - PSYCHIATRY [facility] Oct 30, 2019 10:00 AM AMBULATORY - PSYCHIATRY RADHA GarvinKaitlin [facility] Surgical Procedures: All associated to the encounter [...] and tobacco- related health factors from the AL facility where the Encounter took place. Current Smoking Status This section includes the most current smoking, or tobacco -related health factor, from the AL facility where the Encounter took place. Date/Time Current Smoking Status Comment Facility Oct 19, 2018 08:40 AM VA-TOBACCO USE THROAT CUTTER NO [facility] Tobacco Use History This section includes a history of the smoking, or tobacco -related health factors, that were collected on or before the date of the Encoun ter. The data comes from the AL facility where the Encounter took place. Date/Time Smoking Status/Tobacco Use Comment Facil ity Oct 19, 2018 08:40 AM VA-TOBACCO USE ADVICE [facility] Oct 19, 2018 08:40 AM VA-TOBACCO USE THROAT CUTTER NO [facility] Oct 19, 2018 08:40 AM VA-TOBACCO USE MED NO [facility] Oct 19, 2018 08:40 AM VA-TOBACCO USE WI 30 MIN OF WAKEUP P ARSORA [facility] Oct 19, 2018 08:40 AM VA-TOBACCO USER EVERY DAY [facility] Nov 17, 2017 09:05 AM CURRENT TOBACCO USER [facility] Nov 17, 2017 09:05 AM CURRENT TOBACCO USER (NOT READY TO KAILYN T) [facility] Nov 17, 2017 09:05 AM TOBACCO CESSATION REFERRAL DECLINED [facility] Nov 17, 2017 09:05 AM TOBACCO MEDS OFFERED BUT DECLINED PA VELMA [facility] Nov 17, 2017 09:05 AM TOBACCO USER OFFERED MEDS [facility] Advance Directives: All historical and current No Data Provided for This Section Allergies and Adverse Reactions (ADRs): All historical and current Section Date Range: From patient's date of to the date document was create d. This section includes Allergies and Adverse Reactions (ADR s) on record with AL for the patient. The data comes from a ll AL treatment facilities. It does not list Allergies/ADRs that were removed or entered in error. Some allergies/ADRs may be reported in t he Immunization section. Allergen Event Date Event Type Reaction(s) Severity Source CODEINE Nov 18, 2009 Propensity to adverse reactions to drug (disorder) Eruption [facility], [facility] DEMEROL HYDROCHLORIDE INJECTION 50 MG/ML Nov 18, 2009 Propensity to adverse reactions to drug (disorder) Urticaria [facility] MEPERIDINE Nov 18, 2009 Propensity to adverse reactions to drug (disorder) Eruption [facility], [facility] SULFA DRUGS Nov 18, 2009 Propensity to adverse reactions to drug (disorder) Eruption [facility], [facility] 15 Medications: VA dispensed (-15 months) and Non-VA Documented (Obtained Outside A) Section Date Range: 1) prescriptions processed by a VA pharmacy in the last 15 m [facility], and 2) all medications recorded in the AL medical record as "non-VA medic ations". Pharmacy terms refer to AL pharmacy's work on prescriptions. VA patient s are advised to take their medications as instructed by their health care team. The data comes from all [place] treatment facilities. Glossary of Pharmacy Terms:Active = A prescription that can be filled at the local AL pharmacy.Active: On Hold = An active prescription that will not be filled until pharmacy resolves the issue.Active: Susp = An active prescription that is not scheduled to be filled yet.Clinic Order = A medication received during a visit to a AL clinic or emergency department (currently not available).Discontinued [...] TO PREVENT CLOGGING. 3 Nov 18, 2019 [id number] Nov 17, 019 ANTHONY BLEVINS AMLODIPINE BESYLATE 10MG TAB Active TAKE ONE TA BLET BY MOUTH EVERY MORNING FOR HEART/BLOOD PRESSURE DR FLOREZ 90 Feb 29, 2020 [id number] Sep 30, 020 ANTHONY BLEVINS AMYLASE 120,000UNIT/LIPASE 24,000UNIT/PROTEASE 76,000UNIT CA P,EC Discontinued TAKE 2 CAPSULES BY MOUTH THREE TIMES DAILY BEFORE MEALS FOR PANCREATIC ENZYME REPLACEMENT. TAKE WITH FOOD DIRECTED. DR FLOREZ, [facility] 270 Jan 22, 2019 [id number] Oct 31, 2018 ANTHONY BLEVINS AMYLASE 120,000UNIT/LIPASE 24,000UNIT/PROTEASE 76,000UNIT CA P,EC Discontinued TAKE 1 CAPSULE BY MOUTH ONCE A DAY NEEDED FOR PANCREATIC ENZYME REPLACEMENT. TAKE WITH FOOD DIRECTED. TAKE ONE TABLET BEFORE SNACKS DR FLOREZ LEASE OUT WORKER FOR PANCREATIC ENZYME REPLACEMENT. TAKE WITH FOOD DIRECTED. TAKE ONE TABLET BEFORE SNACKS DR FLOREZ LEASE OUT WORKER 180 Jan 22, 2019 [id number] Oct ANTHONY BLEVINS AMYLASE 120,000UNIT/LIPASE 24,000UNIT/PROTEASE 76,000UNIT CA P,EC TAKE 1 CAPSULE BY MOUTH ONCE A DAY NEEDED FOR PANCREATIC ENZYME REPLACEMENT. TAKE WITH FOOD DIRECTED. TAKE ONE TABLET BEFORE SNACKS DR FLOREZ LEASE OUT WORKER FOR PANCREATIC ENZYME REPLACEMENT. TAKE WITH FOOD DIRECTED. TAKE ONE TABLET BEFORE SNACKS DR FLOREZ LEASE OUT WORKER 180 Feb 15, 2019 [id number] Dec ANTHONY BLEVINS CLOPIDOGREL BISULFATE 75MG TAB Non-VA TAKE ONE TABLET BY MOUTH QOD Non-VA Documented by: BARBARA GAMEZ nted at: [facility]STIN MUÑOZ DABIGATRAN ETEXILATE 75MG CAP,ORAL Active TAKE ONE CAPSULE BY MOUTH TWO TIMES A DAY TO THIN BLOOD. DO NOT OPEN PACKAGE UNTIL READY FOR DOSE TO MAINTAIN STABILITY 180 Apr 04, 2020 [id number] Aug 13, 2019 ANTHONY BLEVINS DOXAZOSIN MESYLATE 4MG TAB Non-VA TAKE ONE- HALF TABLET BY MOUTH AT BEDTIME Non-VA Docume nted by: GABRIELE CRUMP Docume nted at: [facility] ESCITALOPRAM OXALATE 20MG TAB Non-VA TAKE ONE-HALF TABLET BY MOUTH TWO TIMES A DAY Non-VA Documented by: NOAH ANDUJAR Docume nted at: RADHA ONEIL [facility] FUROSEMIDE 40MG TAB Active TAKE ONE TABLET BY M OUTH EVERY MORNING FOR FLUID RETENTION DR FLOREZ 90 Feb 29, 2020 [id number] September 06, 2019 AKI BLEVINS FUROSEMIDE 40MG TAB Non- VA TAKE ONE TABLET BY MOUTH EVERY MORNING Non-VA Documented by: BARBARA GAMEZ Docume nted at: [facility] MU[facility] GABAPENTIN 100MG CAP Active: Susp TAKE TWO CAPSULES B Y MOUTH THREE TIMES A DAY DR FLOREZ 540 Feb 29, 2020 [id number] Dec 20, 2019 [facility]Y BLEVINS [facility] GABAPENTIN TAB Non- VA TAKE 100 MG BY MOUTH THREE TIMES A DAY Non-VA Documented by: BARBARA GAMEZ Docume nted at: [facility] MUÑOZ LORAZEPAM 0.5MG TAB Non- VA TAKE ONE TABLET BY MOUTH EVERY 8 HOURS NEEDED Non-VA Docume nted by: BARBARA GAMEZ Docume nted at: [facility]ST[facility] MUÑOZ LOSARTAN POTASSIUM 100MG TAB Active TAKE ONE TABLET BY MOUTH ONCE A DAY Jun 21, 2020 [id number] Jul 14, 2019 ANTHONY BLEVINS LOSARTAN POTASSIUM 100MG TAB Discontinued TAKE ONE TABLET BY MOUTH ONCE A DAY Nov 18, 2019 [id number] May 22, 2019 ANTHONY BLEVINS CBELEN LOSARTAN POTASSIUM 100MG TAB Discontinued TAKE ONE TABLET BY MOUTH ONCE A DAY September 09, 2019 [id number] Oct 16, 2018 ANTHONY BLEVINS MAGNESIUM OXIDE [...] DR FLOREZ 45 Feb 28, 2 020 [id number] September 20, 2019 ANTHONY BLEVINS OMEPRAZOLE 20MG CAP,EC Active TAKE 1 CAPSULE BY MOUTH EVERY MORNING TO LOWER STOMACH ACID. TAKE 30 MINUTES PRIOR TO FOOD. 90 Nov 18, 2019 [id number] September 06, 2019 ANTHONY BLEVINS OMEPRAZOLE 20MG CAP,EC Discontinued TAKE 1 CAPSULE BY MOUTH EVERY MORNING TO LOWER STOMACH ACID. TAKE 30 MINUTES PRIOR TO FOOD. 90 Nov 19, 2018 [id number] September 08, 2018 ANTHONY BLEVINS ONDANSETRON HCL 8MG TAB TAKE ONE-HALF TA BLET BY MOUTH EVERY 4 HOURS NEEDED FOR NAUSEA Dec 17, 2018 [id number] Nov 17, 2018 ANTHONY BLEVINS P ARSORA MUÑOZ POTASSIUM CHLORIDE 20MEQ TAB,SA (DISPERSIBLE) Non-VA TAKE ONE-HALF TABLET BY MOUTH EVERY MORNING Non-VA Documented by: BARBARA GAMEZ nted at: [facility]RISTIN MUÑOZ ROPINIROLE HCL 0.5MG TAB Active TAKE ONE TABLET BY MOUT H AT BEDTIME DR FLOREZ 90 Feb 29, 2020 [id number] September 09, 2019 ANTHONY BLEVINS Problems (Conditions): All historical and current Section Date Range: From patient's date of to the date document was create d. This section includes a list of Problems (Conditions) know n to [facility] for the patient. It includes both active and inacti ve problems (conditions). The data comes from all [place] treatment facilities. Problem Status Problem Code Date of Onset Date of Resolution Comm ent(s) Provider Source Abnormal vision Active 6129717 Sep 24, 2 017 Entered By: GABRIELE CRUMP Comment: GABRIELE [place] [facility] AF- Atrial Fibrillation ([facility] [id number]) Active 18969619 Mar 30, 2019 Entered By: ANTHONY BLEVINS Comment: Dr Florez 02/20/29 ANTHONY BLEVINS [facility] Benign hypertension Active 58822400 ROLDAN YEUNG [facility] CAD - Coronary artery disease Active 14101560 GABRIELE JACKSON [facility] Chronic kidney disease stage 3 Active 600272182 GABRIELE CRUMP [facility] Chronic obstructive lung disease Active 29650630 ANTHONY BLEVINS [facility] Chronic pancreatitis Active 838817156 Sergio BLEVINS [facility] Dyspnea on exertion Active 75125901 ROLDAN YEUNG [facility] Gastroesophageal reflux disease without esophagitis Active 31914228 5 [place] YEUNG [facility] History of fall Active 264400593 [facility] Impaired fasting glucose Active 087476291 GABRIELE GLASS [facility] Low back pain Active 835201736 Sep 24 7 Entered By: GABRIELE CRUMP Comment: had lumbar spine surgery of some type in september 2015 (approx) GABRIELE CRUMP [facility] Peripheral vascular disease Active 467469813 ANTHONY SAMSON [facility] Post percutaneous transluminal coronary angioplasty Active 240319 000 Sep 24, 2016 Entered By: GABRIELE CRUMP Comment: x 2015 [facility] Carotid artery stenosis (SNOMED CT 17427066) Inactive 433.10 Nov 17, 2018 [place] YEUNG [facility] Cough (ICD-9-CM 786.2) Inactive 786.2 Nov 18, 2017 HAS BURAK RAMIREZ [facility] Dyslipidemia (ICD-9-CM 272.4) Inactive 272.4 Nov 18, 2017 [place] YEUNG [facility] Essential Hypertension (ICD-9-CM 401.9) Inactive 401.9 Nov 18, 2017 [place] YEUNG [facility] GERD * (ICD-9-CM 530.81) Inactive 530.81 Nov 18, 2017 H BURAK BRENNAN [facility] Impaired Fasting Glucose (ICD-9-CM 790.21) Inactive 790.21 Nov 18, 2017 ANJANA,[facility] Kidney Stones (ICD-9-CM 592.0) Inactive 592.0 Nov 18, 2017 [facility] NEED INOC./VARICELLA - Need for inoculation against va ricella (ICD-9-CM V05.4) Inactive V05.4 Nov 18, 2017 [facility] Peripheral vascular disease (SNOMED CT 451976105) Inactive 443.9 Nov 17, 2018 [facility] PROPHY VACC STREP PNEU&FLU Inactive V06.6 Nov 18, 2017 [facility] PROPHY VACC. STREP PNEU Inactive V03.82 Nov 18, 2017 [facility] TETANUS TOXOID INOCULAT Inactive V03.7 Nov 18, 2017 [facility] Tobacco Use Disorder * (ICD-9-CM 305.1) Inactive 305.1 Nov 18, 2017 [facility] Radiology Reports: +/- 30 days of the encounter No Data Provided for This Section Pathology Reports: +/- 30 days of the encounter No Data Provided for This Section Encounter Notes: All associated encounter notes This section contains the clinical notes associated to the Encounter. Date/Time Encounter Note(s) Provider Source August 27, 2019 11:39 AM DIAGNOSTIC STUDY REPORT: LOCAL TITLE: WI-FORM LETTER DIAGNOSTIC RESULTS STANDARD TITLE: DIAGNOSTIC STUDY REPORT DATE OF NOTE: AUGUST 27, 2019@11:39 ENTRY DATE: AUGUST 27, 2019@11:40:03 AUTHOR: TAMEKA NINO COSIGNER: URGENCY: STATUS: COMPLETED [facility] [address] [place] [address] PAULINA VALDERRAMA [address] [place], [place], [address] August Dear PAULINA VALDERRAMA, The purpose of this letter is to inform you of your test results done recently at the [facility],[place], [place]. MISCELLANEOUS: Results and Comments: Mr. Mai will enter a consult for community care, Vet can then get escitalopram filled by Dr. Florez. The second alternative would be to have Vet see [place] behavioral health to continue to have medication refilled. Please notify [facility] if you would like to have Dr. Florez write the prescription or would you like to see [place] behavioral health. Hope you are well. Please contact [facility] if we can help you. TAMEKA NINO [facility]
--- OUTSIDE RECORDS SUMMARY | 2019-10-31 20:52 | XMS REPORT | Encounter Summary ---
Author Author [facility] Address [address] [place] [address] Phone Unavailable Care Team Providers Care Ui Developer With Angular Js Name Role Phone RAYMOND MAI PCP Unavailable [...] PART A August 23, 2012 PART A [id number] [phone] PAULINA MARTIN PATIENT MEDICARE (WNR) MEDICARE (M) PART B August 23, 2012 PART B [id number] [phone] MARIOTATYANAPAULINA PATIENT Selected Encounter This section includes the information on record at CT for the Encounter. Date/Time Encounter Type Encounter Description Reason Provider Source Oct 30, 2019 10:00 AM Outpatient Encounter TELEPHONE ICD-1 0-CM F32.1 Major depressive disorder, single episode, moderate with Provider Comments: Major Depressive Disorder, single Episode, Moderate NOAH ANDUJAR [facility] IHE Encounter Template Text not used by CT Assessments - Encounter Diagnoses This section includes the primary and secondary diag noses documented for the Encounter. Date/Time Primary/Secondary Diagnosis Diagnosis Name Provider Source Oct 30, 2019 10:00 AM PRIMARY Major depressive d isorder, single episode, moderate MARU MCALLISTER [facility] Oct 30, 2019 10:00 AM SECONDARY Alcohol dependence, in rem ission MARU MCALLISTER [facility] Plan of Treatment: Future Appointments (+ 6 months) and Future Tests (+/- 45 day s) No Data Provided for This Section Surgical Procedures: All associated to the encounter [...] Use (All prior to enco unter date) No Data Provided for This Section Advance Directives: All historical and current No Data Provided for This Section Allergies and Adverse Reactions (ADRs): All historical and current Section Date Range: From patient's date of to the date document was create d. This section includes Allergies and Adverse Reactions (ADR s) on record with CT for the patient. The data comes from a ll CT treatment facilities. It does not list Allergies/ADRs that were removed or entered in error. Some allergies/ADRs may be reported in t Immunization section. Allergen Event Date Event Type Reaction(s) Severity Source CODEINE Nov 18, 2009 Propensity to adverse reactions to drug (disorder) Eruption [facility] VISN 15 DEMEROL HYDROCHLORIDE INJECTION 50 MG/ML Nov 18, 2009 Propensity to adverse reactions to drug (disorder) Urticaria [facility], VISN 15 MEPERIDINE Nov 18, 2009 Propensity to adverse reactions to drug (disorder) Eruption [facility], VISN 15 SULFA DRUGS Nov 18, 2009 Propensity to adverse reactions to drug (disorder) Eruption [facility], VISN 15 Medications: VA dispensed (-15 months) and Non-VA Documented (Obtained Outside A) Section Date Range: 1) prescriptions processed by a VA pharmacy in the last 15 m [facility], and 2) all medications recorded in the CT medical record as "non-VA medic ations". Pharmacy terms refer to CT pharmacy's work on prescriptions. VA patient s are advised to take their medications as instructed by their health care team. The data comes from all CT treatment facilities. Glossary of Pharmacy Terms:Active = A prescription that can be filled at the local [place] pharmacy.Active: On Hold = An active prescription that will not be filled until pharmacy resolves the issue.Active: Susp = An active prescription that is not scheduled to be filled yet.Clinic Order = A medication received during a visit to a CT clinic or emergency department (currently not available).Discontinued = A prescription stopped by a CT provider. It is no longer available to be filled. = A prescription which is too old to fill. This does not refer to the expiration date of the medication in the container. Non-VA = A medication that came from someplace other than a [place] pharmacy. This may be a prescription from either the CT or other providers that was filled outside the CT. Or, it may be an over the [...] TO PREVENT CLOGGING. 3 Nov 18, 2019 [id number] Nov 17, 2 019 [facility] AMLODIPINE BESYLATE 10MG TAB Active TAKE ONE TA BLET BY MOUTH EVERY MORNING FOR HEART/BLOOD PRESSURE DR FLOREZ 90 Feb 29, 2020 [id number] Sep 30, 2 020 ANTHONY BLEVINS AMYLASE 120,000UNIT/LIPASE 24,000UNIT/PROTEASE 76,000UNIT CA P,EC Discontinued TAKE 2 CAPSULES BY MOUTH THREE TIMES DAILY BEFORE MEALS FOR PANCREATIC ENZYME REPLACEMENT. TAKE WITH FOOD DIRECTED. DR FLOREZ, [facility] 270 Jan 22, 2019 [id number] Oct 31, 2018 [facility] AMYLASE 120,000UNIT/LIPASE 24,000UNIT/PROTEASE 76,000UNIT CA P,EC Discontinued TAKE 1 CAPSULE BY MOUTH ONCE A DAY NEEDED FOR PANCREATIC ENZYME REPLACEMENT. TAKE WITH FOOD DIRECTED. TAKE ONE TABLET BEFORE SNACKS DR FLOREZ IT SERVICE TECHNICIAN FOR PANCREATIC ENZYME REPLACEMENT. TAKE WITH FOOD DIRECTED. TAKE ONE TABLET BEFORE SNACKS DR FLOREZ IT SERVICE TECHNICIAN 180 Jan 22, 2019 [id number] Oct ANTHONY BLEVINS AMYLASE 120,000UNIT/LIPASE 24,000UNIT/PROTEASE 76,000UNIT CA P,EC TAKE 1 CAPSULE BY MOUTH ONCE A DAY NEEDED FOR PANCREATIC ENZYME REPLACEMENT. TAKE WITH FOOD DIRECTED. TAKE ONE TABLET BEFORE SNACKS DR FLOREZ IT SERVICE TECHNICIAN FOR PANCREATIC ENZYME REPLACEMENT. TAKE WITH FOOD DIRECTED. TAKE ONE TABLET BEFORE SNACKS DR FLOREZ IT SERVICE TECHNICIAN 180 Feb 15, 2019 [id number] Dec ANTHONY BLEVINS CLOPIDOGREL BISULFATE 75MG TAB Non-VA TAKE ONE TABLET BY MOUTH QOD Non-VA Documented by: BARBARA GAMEZ nted at: [facility] MU[facility]OZ DABIGATRAN ETEXILATE 75MG CAP,ORAL Active TAKE ONE CAPSULE BY MOUTH TWO TIMES A DAY TO THIN BLOOD. DO NOT OPEN PACKAGE UNTIL READY FOR DOSE TO MAINTAIN STABILITY 180 Apr 04, 2020 [id number] Aug 13, 2019 ANTHONY BLEVINS DOXAZOSIN MESYLATE 4MG TAB Non-VA TAKE ONE- HALF TABLET BY MOUTH AT BEDTIME Non-VA Docume nted by: GABRIELE CRUMP Docume nted at: [facility] ESCITALOPRAM OXALATE 20MG TAB Non-VA TAKE ONE-HALF TABLET BY MOUTH TWO TIMES A DAY Non-VA Documented by: NOAH ANDUJAR Docume nted at: RADHA ONEIL [facility] FUROSEMIDE 40MG TAB Active TAKE ONE TABLET BY M OUTH EVERY MORNING FOR FLUID RETENTION DR FLOREZ 90 Feb 29, 2020 [id number] September 06, 2019 AKI BLEVINS FUROSEMIDE 40MG TAB Non- VA TAKE ONE TABLET BY MOUTH EVERY MORNING Non-VA Documented by: BARBARA GAMEZ Docume nted at: [facility] GABAPENTIN 100MG CAP Active: Susp TAKE TWO CAPSULES B Y MOUTH THREE TIMES A DAY DR FLOREZ 540 Feb 29, 2020 [id number] Dec 20, 2019 [facility] GABAPENTIN TAB Non- VA TAKE 100 MG BY MOUTH THREE TIMES A DAY Non-VA Documented by: BARBARA GAMEZ nted at: [facility] LORAZEPAM 0.5MG TAB Non- VA TAKE ONE TABLET BY MOUTH EVERY 8 HOURS NEEDED Non-VA Docume nted by: GMAEZ,BARBARA Perkins nted at: [facility] MUÑOZ LOSARTAN POTASSIUM 100MG TAB Active TAKE ONE TABLET BY MOUTH ONCE A DAY Jun 21, 2020 [id number] Jul 14, 2019 ANTHONY BLEVINS LOSARTAN POTASSIUM 100MG TAB Discontinued TAKE ONE TABLET BY MOUTH ONCE A DAY Nov 18, 2019 [id number] May 22, 2019 ANTHONY BLEVINS LOSARTAN POTASSIUM 100MG TAB Discontinued TAKE ONE TABLET BY MOUTH ONCE A DAY September 09, 2019 [id number] Oct 16, 2018 [facility] MAGNESIUM OXIDE 400MG TAB Non-VA TAKE ONE TABLET BY MOUTH ONCE A DAY Non-VA Documented by: GABRIELE CRUMP nted at: [facility] METOPROLOL SUCCINATE 200MG TAB,SA Active TAKE O NE-HALF TABLET BY MOUTH EVERY MORNING FOR HEART/BLOOD PRESSURE. SWALLOW WHOLE, DO NOT CRUSH OR CHEW (TABLETS MAY BE CUT IN HALF). DR FLOREZ FOR HEART/BLOOD PRESSURE. SWALLOW WHOLE, DO NOT CRUSH OR CHEW (TABLETS MAY BE CUT IN HALF). DR FLOREZ 45 Feb 28, 2 020 [id number] September 20, 2019 ANTHONY BLEVINS OMEPRAZOLE 20MG CAP,EC Active TAKE 1 CAPSULE BY MOUTH EVERY MORNING TO LOWER STOMACH ACID. TAKE 30 MINUTES PRIOR TO FOOD. 90 Nov 18, 2019 [id number] September 06, 2019 ANTHONY BLEVINS OMEPRAZOLE 20MG CAP,EC Discontinued TAKE 1 CAPSULE BY MOUTH EVERY MORNING TO LOWER STOMACH ACID. TAKE 30 MINUTES PRIOR TO FOOD. 90 Nov 19, 2018 [id number] September 08, 2018 ANTHONY BLEVINS ONDANSETRON HCL 8MG TAB TAKE ONE-HALF TA BLET BY MOUTH EVERY 4 HOURS NEEDED FOR NAUSEA Dec 17, 2018 [id number] Nov 17, 2018 ANTHONY BLEVINS POTASSIUM CHLORIDE 20MEQ TAB,SA (DISPERSIBLE) Non-VA TAKE ONE-HALF TABLET BY MOUTH EVERY MORNING Non-VA Documented by: BARBARA GAMEZ nted at: KRISTIN MUÑOZ ROPINIROLE HCL 0.5MG TAB Active TAKE ONE TABLET BY MOUT H AT BEDTIME DR FLOREZ 90 Feb 29, 2020 [id number] September 09, 2019 FELICITY,[facility] Problems (Conditions): All historical and current Section Date Range: From patient's date of to the date document was create d. This section includes a list of Problems (Conditions) know n to CT for the patient. It includes both active and inacti ve problems (conditions). The data comes from all CT treatment facilities. Problem Status Problem Code Date of Onset Date of Resolution Comm ent(s) Provider Source Abnormal vision Active [id number] Sep 24, 2 017 Entered By: GABRIELE CRUMP Comment: [email or web address] GBARIELE CRUMP [facility] AF- Atrial Fibrillation (SCT [id number]) Active 55508171 Mar 30, 2019 Entered By: ANTHONY BLEVINS Comment: Dr Florez 02/20/29 ANTHONY BLEVINS [facility] Benign hypertension Active 24024252 [facility] CAD - Coronary artery disease Active 51954391 GABRIELE JACKSON [facility] Chronic kidney disease stage 3 Active 199668595 GABRIELE CRUMP [facility] Chronic obstructive lung disease Active 28518253 ANTHONY BLEVINS [facility] Chronic pancreatitis Active 613950703 FELICITYSergio RATLIFF RET [facility] Dyspnea on exertion Active 73620768 [facility] Gastroesophageal reflux disease without esophagitis Active 34361128 5 [facility] History of fall Active 825511077 [facility] Impaired fasting glucose Active 392281256 GABRIELE GLASS [facility] Low back pain Active 090242834 Sep 24, 201 7 Entered By: GABRIELE CRUMP Comment: had lumbar spine surgery of some type in september 2015 (approx) GABRIELE CRUMP [facility] Peripheral vascular disease Active 319514263 ANTHONY SAMSON [facility] Post percutaneous transluminal coronary angioplasty Active 675044 000 Sep 24, 2016 Entered By: GABRIELE CRUMP Comment: x [address] [facility] Carotid artery stenosis (SNOMED CT 89822299) Inactive 433.10 Nov 17, 2018 BURAK YEUNG [facility] Cough (ICD-9-CM 786.2) Inactive 786.2 Nov 18, 2017 HAS BURAK RAMIREZ [facility] Dyslipidemia (ICD-9-CM 272.4) Inactive 272.4 Nov 18, 2017 BURAK YEUNG [facility] Essential Hypertension (ICD-9-CM 401.9) Inactive 401.9 Nov 18, 2017 BURAK YEUNG [facility] GERD * (ICD-9-CM 530.81) Inactive 530.81 Nov 18, 2017 H MIKABURAK [facility] Impaired Fasting Glucose (ICD-9-CM 790.21) Inactive 790.21 Nov 18, 2017 BURAK YEUNG [facility] Kidney Stones (ICD-9-CM 592.0) Inactive 592.0 Nov 18, 2017 ANJANA,ANJUM [facility] NEED INOC./VARICELLA - Need for inoculation against va ricella (ICD-9-CM V05.4) Inactive V05.4 Nov 18, 2017 ANJANA,ANJUM [facility] Peripheral vascular disease (SNOMED CT 393818081) Inactive 443.9 Nov 17, 2018 BURAK YEUNG [facility] PROPHY VACC STREP PNEU&FLU Inactive V06.6 Nov 18, 2017 ANJANA,ANJUM [facility] PROPHY VACC. STREP PNEU Inactive V03.82 Nov 18, 2017 SENA BURAK DIAZ [facility] TETANUS TOXOID INOCULAT Inactive V03.7 Nov 18, 2017 BURAK SMART [facility] Tobacco Use Disorder * (ICD-9-CM 305.1) Inactive 305.1 Nov 18, 2017 ANJANA,ANJUM [facility] Radiology Reports: +/- 30 days of the encounter No Data Provided for This Section Pathology Reports: +/- 30 days of the encounter No Data Provided for This Section Encounter Notes: All associated encounter notes This section contains the clinical notes associated to the Encounter. Date/Time Encounter Note(s) Provider Source Oct 30, 2019 10:02 AM MENTAL HEALTH OUTPATIENT CON SULT: [facility] TITLE: [facility] OPT/CONSULT STANDARD TITLE: MENTAL HEALTH OUTPATIENT CONSULT DATE OF NOTE: OCT 30, 2019@10:02 ENTRY DATE: OCT 30, 2019@10:02:15 AUTHOR: NOAH ANDUJAR COSIGNER: URGENCY: STATUS: COMPLETED Report will be communicated via CPRS Notification to the requesting provider. verbalizes understanding there is the option to be seen in the [place] office for [id number] visits if preferred. Patient elects to continue to be seen via phone due to COVID-19 restrictions. Patient verbal consent obtained. Location/emergency number confirmed. ALBUTEROL 90MCG (CFC-F) 200D ORAL INHL Fill Date: NOV 17, 2018 AMLODIPINE BESYLATE 10MG TAB Fill Date: MAR 01, 2019 DABIGATRAN ETEXILATE 75MG ORAL CAP Fill Date: APR 04, 2019 FUROSEMIDE 40MG TAB Fill Date: MAR 01, 2019 LOSARTAN 100MG TAB Fill Date: JUN 24, 2019 METOPROLOL SUCCINATE 200MG SA TAB Fill Date: MAR 01, 2019 OMEPRAZOLE 20MG EC CAP Fill Date: NOV 27, 2018 ROPINIROLE HCL 0.5MG TAB Fill Date: MAR 01, 2019 Compared newly ordered medications and medication changes to active medications and non-VA medications, and then reviewed medications with patient and/or caregiver. All discrepancies noted and reconciled. Patients, or caregivers, was provided with reconciled medications list and advised to provide to all non-VA providers. Potential adverse reactions of new medications were discussed with the patient. Time spent in the visit: 30 mins with at least 16 minutes psychotherapy spent in emotional / psychosocial processing. Encouraged to continue to work on healthy lifestyle including regular exercise, proper diet, and socialization. Chief Complaint: "I found out I can get my meds at my local pharmacy." Relevant History: 74-year-old TERRI is referred for further evaluation and treatment. He was seen by Peyton Coombs LCSW for intake. Please see her notes for additional history. Today he presents as noted and reports that he initially wanted to [facility] all [facility], but he found out get escitalopram for $4 a month at his local pharmacy. He's been receiving that from his community provider in [place]. He is also prescribed lorazepam which he reports he takes once a week to manage anxiety. He reports that he believes he became depressed after moving from [place] to [place] for his to be closer to her family. "We had been close to my family." He reports he was at home alone while his was working and he did not know anyone or have any friends after the move. He reports he began drinking too much and this became apparent when he fell out of his truck that resulted in 2 months in the hospital followed by 2 months in rehabilitation. "My brain wasn't working very well after that and even when I got home." He reports some ongoing depression and is unable to drive and he needs to ambulate with a walker. "I can get frustrated over things I can't do." He reports that the escitalopram is effective for his depression. He reports he was drinking so that half-gallon of whiskey lasted only 2 days. He reports that half-gallon would last 2 weeks while he was living in [place]. He reports after the hospital is not drinking and is no longer a smoker. He also reports he has gained significant weight. He denies any suicidal ideation or thoughts he would be better off . Compliance with treatment: Compliant Medication side effects: None Reliability of historian: Reliable Pertinent Mental Status Exam: Alert and Oriented. Cooperative. Speech is clear and coherent. Behavior is without significant agitation or retardation. Mood is euthymic, affect is congruent. Thought process is linear and goal-directed. Denies AVH. Thought content is without SI or HI. Memory is grossly intact. Cognitive function is average. Insight is fair. Judgment is good. Summary: 74-year-old [facility] presents with a history of depression and alcohol dependence in remission. He was abusing alcohol but did not become depressed when he was living in [place]. After moving to [place], he became depressed and began drinking much more heavily. He reports currently limited depression that is related circumstances. He is no longer drinking. He feels his cognitive abilities have continued to slowly improve. He declines further follow-up through the [facility] related to depression at this time. Diagnostic Impression based on DSM-5 criteria: MDD, mild; alcohol depression, in remission Target Symptoms/Goals for Treatment: 1. Mood/maintain stable mood 2. Alcohol/continue abstinence 3. Plan: 1. Continue escitalopram - prescribed by community PCP 2. May call for further appointments if desired 3. 4. 5. Supportive listening provided Education offered on disease state and medications prescribed Call back to [facility] if disease state worsens or problems develop with medication RTC: Declines appointment at this time /xavier/ Noah Andujar Jr. Staff Psychiatrist Signed: 10/30/2019 10:50 NOAH ANDUJAR [facility]
--- OUTSIDE RECORDS SUMMARY | 2019-10-31 20:52 | XMS REPORT | Continuity of Care Document ---
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 It does not include entries that were removed or entered in error. Problem Status Onset Date Problem Type Date of Resolution Comments Source Abnormal vision Active Condition Sep 24, 2016 Entered By: GABRIELE CRUMP Comment: terry [facility] AF- Atrial Fibrillation ([facility] [id number]) Active Condition Mar 30, 2019 Entered By: ANTHONY BLEVINS Comment: Dr Macias 02/20/29 [facility] Benign hypertension Active Condition [facility] CAD - Coronary artery disease Active Condition [facility] Chronic kidney disease stage 3 Active Condition [facility] Chronic obstructive lung disease Active Condition [facility] Chronic pancreatitis Active Condition [facility] Dyspnea on exertion Active Condition [facility] Gastroesophageal reflux disease without esophagitis Active Condition [facility] History of fall Active Condition [facility] Impaired fasting glucose Active Condition [facility] Low back pain Active Condition Sep 24, 2016 Entered By: GABRIELE CRUMP Comment: had lumbar spine surgery of some type in september 2015 (approx) [facility] Peripheral vascular disease Active Condition [facility] Post percutaneous transluminal coronary angioplasty Active Condition Sep 24, 2016 Entered By: GABRIELE CRUMP Comment: 2015 [facility] Carotid artery stenosis (SNOMED CT 91113155) Inactive Condition 9 [facility] Cough (ICD-9-CM 786.2) Inactive Condition 11/18/2017 [facility] Dyslipidemia (ICD-9-CM 272.4) Inactive Condition 11/18/2017 [facility] Essential Hypertension (ICD-9-CM 401.9) Inactive Condition 8 [facility] GERD * (ICD-9-CM 530.81) Inactive Condition 11/18/2017 [facility] Impaired Fasting Glucose (ICD-9-CM 790.21) Inactive Condition 8 [facility] Kidney Stones (ICD-9-CM 592.0) Inactive Condition 11/18/2017 [facility] NEED INOC./VARICELLA - Need for inoculat ion against varicella (ICD-9-CM V05.4) Inactive Condition 11/18/2017 [facility] Peripheral vascular disease (SNOMED CT [id number]) Inactive Condition 9 [facility] PROPHY VACC STREP PNEU&FLU Inactive Condition 11/18/2017 [facility] PROPHY VACC. STREP PNEU Inactive Condition 11/18/2017 [facility] TETANUS TOXOID INOCULAT Inactive Condition 11/18/2017 [facility] Tobacco Use Disorder * (ICD-9-CM 305.1) Inactive Condition 8 [facility] ICD-10-CM F32.1 Major depressive disorde r, single episode, moderate with Provider Comments: Major Depressive Disorder, single Episode, Moderate active Diagnosis [facility] ICD-10-CM F32.9 Major depressive disorde r, single episode, unspecified with Provider Comments: Major Depressive Disorder, single Episode, unspecified active Diagnosis [facility] ICD-10-CM I48.91 Unspecified atrial fibr illation with Provider Comments: Atrial Fibrillation,Unspec active Diagnosis [facility] ICD-10-CM I48.91 Unspecified atrial fibr illation with Provider Comments: AF- Atrial Fibrillation ([facility] [id number]) active Diagnosis [facility] ICD-10-CM I10. Essential (primary) hyper tension with Provider Comments: Benign hypertension (SCT [id number]) active Diagnosis [facility] ICD-10-CM K86.81 Exocrine pancreatic ins ufficiency with Provider Comments: Exocrine pancreatic insufficiency active Diagnosis [facility] Medications Combined list of all outpatient medications recorded within the last 15 months b y all Department of Defense and [facility] facilities, and also all patien t-reported medications. Medication Details Route Status Patient Instructions Prescription Expires Prescript ion Number Last Dispense Date Ordering Pr ovider Order Date Source ALBUTEROL SO4 90MCG/ACTUAT (CFC-F) INHL,ORAL,6.7GM INHALE 2 PUFFS BY ORAL INHALATION FOUR TIMES A DAY FOR BREATHING. SHAKE WELL. RINSE MOUTHPIECE FREQUENTLY TO PREVENT CLOGGING. ACTIVE 11/18/2019 [id number] 11/17/2018 ANTHONY BLEVINS 11/17/2018 [facility] AMLODIPINE BESYLATE 10MG TAB T ALEXANDRA ONE TABLET BY MOUTH EVERY MORNING FOR HEART/BLOOD PRESSURE DR MACIAS ACTIVE 02/29/2020 [id number] 10/01/2019 ANTHONY BLEVINS 03/01/2019 [facility] AMYLASE 120,000UNIT/LIPASE 24,000UNIT/VT OTEASE 76,000UNIT CAP,EC TAKE 2 CAPSULES BY MOUTH THREE TIMES YADIRA LY BEFORE MEALS FOR PANCREATIC ENZYME REPLACEMENT. TAKE WITH FOOD DIRECTED. DR MACIAS, [facility] DISCONTINUE 01/22/2019 [id number] 10/31/2018 ANTHONY BLEVINS 10/31/2018 [facility] AMYLASE 120,000UNIT/LIPASE 24,000UNIT/VT OTEASE 76,000UNIT CAP,EC TAKE 1 CAPSULE BY MOUTH ONCE A DAY NE EDED FOR PANCREATIC ENZYME REPLACEMENT. TAKE WITH FOOD DIRECTED. TAKE ONE TABLET BEFORE SNACKS DR MACIAS ADMISSION SPECIALIST FOR PANCREATIC ENZYME REPLACEMENT. TAKE WITH FOOD DIRECTED. TAKE ONE TABLET BEFORE SNACKS DR MACIAS ADMISSION SPECIALIST DISCONTINUE 01/22/2019 [id number] 10/31/2018 ANTHONY BLEVINS 10/31/2018 [facility] AMYLASE 120,000UNIT/LIPASE 24,000UNIT/VT OTEASE 76,000UNIT CAP,EC TAKE 1 CAPSULE BY MOUTH ONCE A DAY NE EDED FOR PANCREATIC ENZYME REPLACEMENT. TAKE WITH FOOD DIRECTED. TAKE ONE TABLET BEFORE SNACKS DR MACIAS ADMISSION SPECIALIST FOR PANCREATIC ENZYME REPLACEMENT. TAKE WITH FOOD DIRECTED. TAKE ONE TABLET BEFORE SNACKS DR MACIAS ADMISSION SPECIALIST 02/15/2019 [id number] 01/19/2019 ANTHONY BLEVINS 01/19/2019 [facility] CLOPIDOGREL BISULFATE 75MG TAB TAKE ONE TABLET BY MOUTH QOD ACTIVE BARBARA GAMEZ 09/28/2019 [facility] DABIGATRAN ETEXILATE 75MG CAP,ORAL TAKE ONE CAPSULE BY MOUTH TWO TIMES A DAY TO THIN BLOOD. DO NOT OPEN PACKAGE UNTIL READY FOR DOSE TO MAINTAIN STABILITY ACTIVE 04/04/2020 [id number] 08/13/2019 ANTHONY BLEVINS 04/04/2019 [facility] DOXAZOSIN MESYLATE 4MG TAB EMA E ONE-HALF TABLET BY MOUTH AT BEDTIME ACTIVE GABRIELE CRUMP 09/24/2016 [facility] ESCITALOPRAM OXALATE 20MG TAB TAKE ONE-HALF TABLET BY MOUTH TWO TIMES A DAY ACTIVE NOAH ANDUJAR 10/30/2019 [facility] FUROSEMIDE 40MG TAB TAKE ONE T ABLET BY MOUTH EVERY MORNING FOR FLUID RETENTION DR MACIAS ACTIVE 09/2019 [id number] 09/06/2019 ANTHONY BLEVINS 03/01/2019 [facility] FUROSEMIDE 40MG TAB TAKE ONE T ABLET BY MOUTH EVERY MORNING ACTIVE BARBARA GAMEZ 09/28/2019 [facility] GABAPENTIN 100MG CAP TAKE TWO CAPSULES BY MOUTH THREE TIMES A DAY DR MACIAS ACTIVE/SUSP 02/29/2020 [id number] 12/20/2019 ANTHONY BLEVINS 03/01/2019 [facility] GABAPENTIN TAB TAKE 100 MG BY MOUTH THREE TIMES A DAY ACTIVE BARBARA GAMEZ 09/28/2019 [facility] LORAZEPAM 0.5MG TAB TAKE ONE T ABLET BY MOUTH EVERY 8 HOURS NEEDED ACTIVE BARBARA GAMEZ 09/28/2019 [facility] LOSARTAN POTASSIUM 100MG TAB T ALEXANDRA ONE TABLET BY MOUTH ONCE A DAY ACTIVE 06/21/2020 [id number] 07/14/2019 ANTHONY BLEVINS 06/24/2019 [facility] LOSARTAN POTASSIUM 100MG TAB T ALEXANDAR ONE TABLET BY MOUTH ONCE A DAY DISCONTINUE 11/18/2019 [id number] 05/22/2019 ANTHONY BLEVINS 11/17/2018 [facility] LOSARTAN POTASSIUM 100MG TAB T ALEXANDRA ONE TABLET BY MOUTH ONCE A DAY DISCONTINUE 09/09/2019 [id number] 10/16/2018 ANTHONY BLEVINS 09/09/2018 [facility] MAGNESIUM OXIDE 400MG TAB TAKE ONE TABLET BY MOUTH ONCE A DAY ACTIVE GABRIELE CRUMP 09/24/2016 [facility] METOPROLOL SUCCINATE 200MG TAB,SA TAKE ONE-HALF TABLET BY MOUTH EVERY MORNING FOR HEART/BLOOD PRESSURE. SWALLOW WHOLE, DO NOT CRUSH OR CHEW (TABLETS MAY BE CUT IN HALF). DR MACIAS FOR HEART/BLOOD PRESSURE. SWALLOW WHOLE, DO NOT CRUSH OR CHEW (TABLETS MAY BE CUT IN HALF). DR MACIAS ACTIVE 02/29/2020 [id number] 09/20/2019 ANTHONY BLEVINS 03/01/2019 [facility] OMEPRAZOLE 20MG CAP,EC TAKE 1 CAPSULE BY MOUTH EVERY MORNING TO LOWER STOMACH ACID. TAKE 30 MINUTES PRIOR TO FOOD. ACTIVE 11/18/2019 [id number] 09/06/2019 ANTHONY BLEVINS 11/27/2018 [facility] OMEPRAZOLE 20MG CAP,EC TAKE 1 CAPSULE BY MOUTH EVERY MORNING TO LOWER STOMACH ACID. TAKE 30 MINUTES PRIOR TO FOOD. DISCONTINUE 11/19/2018 [id number] 09/08/2018 ANTHONY BLEVINS 11/20/2017 [facility] ONDANSETRON HCL 8MG TAB TAKE O NE-HALF TABLET BY MOUTH EVERY 4 HOURS NEEDED FOR NAUSEA [id number] 11/17/2018 ANTHONY BLEVINS 11/17/2018 [facility] POTASSIUM CHLORIDE 20MEQ TAB,SA (DISPERSIBLE) TAKE ONE- HALF TABLET BY MOUTH EVERY MORNING ACTIVE JOCELYNN GAMEZ 09/28/2019 [facility] ROPINIROLE HCL 0.5MG TAB TAKE ONE TABLET BY MOUTH AT BEDTIME DR MACIAS ACTIVE 02/29/2020 [id number] 09/09/2019 ANTHONY BLEVINS 03/01/2019 [facility] Allergies, Adverse Reactions, Alerts Combined list of all allergies from all Department of Defense and [facility] Affairs facilities. It does not include entries that were removed or entered in error. Substance Category R eaction Severity Reaction type Status Date Reported Comments Source CODEINE Propensity to adverse reac tions to drug (disorder) Eruption Propensity to adverse reactions to drug (disorder) active 11/18/2009 [facility] 15 DEMEROL HYDROCHLORIDE INJECTION 50 MG/ML Propensity to adverse reactions to drug (disorder) Urticaria Propensity to adverse reacti ons to drug (disorder) active 11/18/2009 [facility] 15 MEPERIDINE Propensity to adverse r eactions to drug (disorder) Eruption Propensity to adverse reactions to drug (disorder) active 11/18/2009 [facility], [facility] 15 SULFA DRUGS Propensity to adverse reactions to drug (disorder) Eruption Propensity to adverse reactions to drug (disorder) active 11/18/2009 [facility], [facility] 15 Immunizations Combined list of: 1) all immunizations on record at all [facility] ies, and 2) all available immunizations on record at Department of Defense (Do D) facilities. Some immunizations on record at [facility] may not be included. Immunization Series Date Given Administered By Site Reaction Lot Number CVX Code Drug Reimbursement Spec Status Comments Source INFLUENZA, UNSPECIFIED FORMULATION 01/23/2018 88 completed [facility] INFLU[facility], HIGH DOSE SEASONAL 05/18/2017 135 completed [facility] INFLUENZA, INJECTABLE, QUADRIVALENT, PRESERVATIVE FREE 05/18/2017 150 completed [facility] TDAP 2017 115 completed [facility] PNEUMOCOCCAL POLYSACCHARIDE PPV23 09/24/2016 33 completed [facility] PNEUMOCOCCAL CONJUGATE PCV 13 08/11/2015 133 completed [facility] INFLUENZA (HISTORICAL) 02/13/2015 88 completed [facility] INFLUENZA, SEASONAL, INJECTABLE, PRESERVATIVE FREE 02/13/2015 140 completed [facility] INFLUENZA (HISTORICAL) 02/16/2013 88 completed [facility] 08/30/2012 121 [facility] 05/21/2011 88 completed [facility] PNEUMOCOCCAL, UNSPECIFIED FORMULATION 09/07/2010 109 completed [facility] INFLUENZA, UNSPECIFIED FORMULATION 01/23/2010 88 completed [facility] 15 TD(ADULT) UNSPECIFIED FORMULATION 11/18/2009 139 completed [facility] Results Combined list of recent chemistry, hematology and other laboratory results going back no more than 15 months from the Department of Defense and [facility] facilities. Order Name Results Value Reference Range Date Interpretation Specimen Comments Source CBC & DIFF LEUKOCYTES [#/VOLUM E] IN BLOOD BY AUTOMATED COUNT 7.6 K/cmm 3.60 - 11.20 11/17/2018 Specimen Type: BLOOD Comment: Possible EDTA-related platelet aggregation, suggest redraw in SODIUM CITRATE and EDTA tubes for an accurate platelet count. PLATELET COUNT:89 K/cmm SPECIMEN COLLECTED GREATER THAN 3 HOURS PRIOR TO PROCESSING. DEGENERATIVE CHANGES CANNOT BE EXCLUDED. MORPHOLOGIC FINDINGS SHOULD BE TREATED WITH RESERVE. PLATELET COUNT reported incorrectly as 89 by [[id number]]. Changed to comment on Nov 18, 2018@00:22 by [[id number]]. PLATELET COUNT flagged incorrectly as L by [[id number]]. Changed to normal on Nov 18, 2018@00:22 by [[id number]]. [facility] CBC & DIFF ERYTHROCYTES [#/VOL UME] IN BLOOD BY AUTOMATED COUNT 3.63 M/ul 4.1 - 5.7 11/17/2018 L Specimen Type: BLOOD Comment: Possible EDTA-related platelet aggregation, suggest redraw in SODIUM CITRATE and EDTA tubes for an accurate platelet count. PLATELET COUNT:89 K/cmm SPECIMEN COLLECTED GREATER THAN 3 HOURS PRIOR TO PROCESSING. DEGENERATIVE CHANGES CANNOT BE EXCLUDED. MORPHOLOGIC FINDINGS SHOULD BE TREATED WITH RESERVE. PLATELET COUNT reported incorrectly as 89 by [[id number]]. Changed to comment on Nov 18, 2018@00:22 by [[id number]]. PLATELET COUNT flagged incorrectly as L by [[id number]]. Changed to normal on Nov 18, 2018@00:22 by [[id number]]. [facility] CBC & DIFF HEMOGLOBIN [MASS/VOLUME] IN BLOOD 14.1 g/dl 13.1 - 16.8 11/17/2018 Specimen T ype: BLOOD Comment: Possible EDTA-related platelet aggregation, suggest redraw in SODIUM CITRATE and EDTA tubes for an accurate platelet count. PLATELET COUNT:89 K/cmm SPECIMEN COLLECTED GREATER THAN 3 HOURS PRIOR TO PROCESSING. DEGENERATIVE CHANGES CANNOT BE EXCLUDED. MORPHOLOGIC FINDINGS SHOULD BE TREATED WITH RESERVE. PLATELET COUNT reported inc orrectly as 89 by [[id number]]. Changed to comment on Nov 18, 2018@00:22 by [[id number]]. PLATELET COUNT flagged incorrectly as L by [[id number]]. Changed to normal on Nov 18, 2018@00:22 by [[id number]]. [facility] CBC & DIFF HEMATOCRIT [VOLUME FRACTION] OF BLOOD BY AUTOMATED COUNT 39.2 % 38.2 - 48.4 11/17/2018 Specimen Type: BLOOD Comment: Possible EDTA-related platelet aggregation, suggest redraw in SODIUM CITRATE and EDTA tubes for an accurate platelet count. PLATELET COUNT:89 K/cmm SPECIMEN COLLECTED GREATER THAN 3 HOURS PRIOR TO PROCESSING. DEGENERATIVE CHANGES CANNOT BE EXCLUDED. MORPHOLOGIC FINDINGS SHOULD BE TREATED WITH RESERVE. PLATELET COUNT reported incorrectly as 89 by [[id number]]. Changed to comment on Nov 18, 2018@00:22 by [[id number]]. PLATELET COUNT flagged incorrectly as L by [[id number]]. Changed to normal on Nov 18, 2018@00:22 by [[id number]]. [facility] CBC & DIFF MCV [ENTITIC VOLUME] BY A UTOMATED COUNT 108.0 fl 80.1 - 98.5 11/17/2018 H Specimen Type: BLOOD Comment: Possible EDTA- related platelet aggregation, suggest redraw in SODIUM CITRATE and EDTA tubes for an accurate platelet count. PLATELET COUNT:89 K/cmm SPECIMEN COLLECTED GREATER THAN 3 HOURS PRIOR TO PROCESSING. DEGENERATIVE CHANGES CANNOT BE EXCLUDED. MORPHOLOGIC FINDINGS SHOULD BE TREATED WITH RESERVE. PLATELET COUNT reported incorrectly as 89 by [[id number]]. Changed to comment on Nov 18, 2018@00:22 by [[id number]]. PLATELET COUNT flagged incorrectly as L by [[id number]]. Changed to normal on Nov 18, 2018@00:22 by [[id number]]. [facility] CBC & DIFF MCH [ENTITIC MASS] BY AUT OMATED COUNT 38.8 pg 27.0 - 34.0 11/17/2018 H Specimen Type: BLOOD Comment: Possible EDTA-related platelet aggregation, suggest redraw in SODIUM CITRATE and EDTA tubes for an accurate platelet count. PLATELET COUNT:89 K/cmm SPECIMEN COLLECTED GREATER THAN 3 HOURS PRIOR TO PROCESSING. DEGENERATIVE CHANGES CANNOT BE EXCLUDED. MORPHOLOGIC FINDINGS SHOULD BE TREATED WITH RESERVE. PLATELET COUNT reported inc orrectly as 89 by [[id number]]. Changed to comment on Nov 18, 2018@00:22 by [[id number]]. PLATELET COUNT flagged incorrectly as L by [[id number]]. Changed to normal on Nov 18, 2018@00:22 by [[id number]]. [facility] CBC & DIFF MCHC [MASS/VOLUME] BY AUT OMATED COUNT 36.0 g/dl 33.0 - 36.0 11/17/2018 Specimen Type: BLOOD Comment: Possible EDTA- related platelet aggregation, suggest redraw in SODIUM CITRATE and EDTA tubes for an accurate platelet count. PLATELET COUNT:89 K/cmm SPECIMEN COLLECTED GREATER THAN 3 HOURS PRIOR TO PROCESSING. DEGENERATIVE CHANGES CANNOT BE EXCLUDED. MORPHOLOGIC FINDINGS SHOULD BE TREATED WITH RESERVE. PLATELET COUNT reported incorrectly as 89 by [[id number]]. Changed to comment on Nov 18, 2018@00:22 by [[id number]]. PLATELET COUNT flagged incorrectly as L by [[id number]]. Changed to normal on Nov 18, 2018@00:22 by [[id number]]. [facility] CBC & DIFF PLATELETS [#/VOLUME ] IN BLOOD BY AUTOMATED COUNT commentK/cmm 150 - 400 11/17/2018 Specimen Type: BLOOD Comment: Possible EDTA-related platelet aggregation, suggest redraw in SODIUM CITRATE and EDTA tubes for an accurate platelet count. PLATELET COUNT:89 K/cmm SPECIMEN COLLECTED GREATER THAN 3 HOURS PRIOR TO PROCESSING. DEGENERATIVE CHANGES CANNOT BE EXCLUDED. MORPHOLOGIC FINDINGS SHOULD BE TREATED WITH RESERVE. PLATELET COUNT reported incorrectly as 89 by [[id number]]. Changed to comment on Nov 18, 2018@00:22 by [[id number]]. PLATELET COUNT flagged incorrectly as L by [[id number]]. Changed to normal on Nov 18, 2018@00:22 by [[id number]]. [facility] CBC & DIFF PLATELET MEAN VOLUM E [ENTITIC VOLUME] IN BLOOD BY AUTOMATED COUNT 13.9 fl 7.5 - 11.2 11/17/2018 H Specimen Type: BLOOD Comment: Possible EDTA-related platelet aggregation, suggest redraw in SODIUM CITRATE and EDTA tubes for an accurate platelet count. PLATELET COUNT:89 K/cmm SPECIMEN COLLECTED GREATER THAN 3 HOURS PRIOR TO PROCESSING. DEGENERATIVE CHANGES CANNOT BE EXCLUDED. MORPHOLOGIC FINDINGS SHOULD BE TREATED WITH RESERVE. PLATELET COUNT reported incorrectly as 89 by [[id number]]. Changed to comment on Nov 18, 2018@00:22 by [[id number]]. PLATELET COUNT flagged incorrectly as L by [[id number]]. Changed to normal on Nov 18, 2018@00:22 by [[id number]]. [facility] CBC & DIFF SEGMENTED NEUTROPHI LS/100 LEUKOCYTES IN BLOOD BY MANUAL COUNT 72 % 44 - 80 11/17/2018 Specimen Type: BLOOD Comment: Possible EDTA-related platelet aggregation, suggest redraw in SODIUM CITRATE and EDTA tubes for an accurate platelet count. PLATELET COUNT:89 K/cmm SPECIMEN COLLECTED GREATER THAN 3 HOURS PRIOR TO PROCESSING. DEGENERATIVE CHANGES CANNOT BE EXCLUDED. MORPHOLOGIC FINDINGS SHOULD BE TREATED WITH RESERVE. PLATELET COUNT reported incorrectly as 89 by [[id number]]. Changed to comment on Nov 18, 2018@00:22 by [[id number]]. PLATELET COUNT flagged incorrectly as L by [[id number]]. Changed to normal on Nov 18, 2018@00:22 by [[id number]]. [facility] CBC & DIFF BAND FORM NEUTROPHI LS/100 LEUKOCYTES IN BLOOD BY MANUAL COUNT 3 % 0 - 7 11/17/2018 Specimen Type: BLOOD Comment: Possible EDTA-related platelet aggregation, suggest redraw in SODIUM CITRATE and EDTA tubes for an accurate platelet count. PLATELET COUNT:89 K/cmm SPECIMEN COLLECTED GREATER THAN 3 HOURS PRIOR TO PROCESSING. DEGENERATIVE CHANGES CANNOT BE EXCLUDED. MORPHOLOGIC FINDINGS SHOULD BE TREATED WITH RESERVE. PLATELET COUNT reported incorrectly as 89 by [[id number]]. Changed to comment on Nov 18, 2018@00:22 by [[id number]]. PLATELET COUNT flagged incorrectly as L by [[id number]]. Changed to normal on Nov 18, 2018@00:22 by [[id number]]. [facility] CBC & DIFF LYMPHOCYTES/100 GIANA KOCYTES IN BLOOD BY MANUAL COUNT 17 % 20 - 40 11/17/2018 L Specimen Type: BLOOD Comment: Possible EDTA- related platelet aggregation, suggest redraw in SODIUM CITRATE and EDTA tubes for an accurate platelet count. PLATELET COUNT:89 K/cmm SPECIMEN COLLECTED GREATER THAN 3 HOURS PRIOR TO PROCESSING. DEGENERATIVE CHANGES CANNOT BE EXCLUDED. MORPHOLOGIC FINDINGS SHOULD BE TREATED WITH RESERVE. PLATELET COUNT reported incorrectly as 89 by [[id number]]. Changed to comment on Nov 18, 2018@00:22 by [[id number]]. PLATELET COUNT flagged incorrectly as L by [[id number]]. Changed to normal on Nov 18, 2018@00:22 by [[id number]]. [facility] CBC & DIFF MONOCYTES/100 LEUKO CYTES IN BLOOD BY MANUAL COUNT 7 % 4 - 8 Specimen Type: BLOOD Comment: Possible EDTA- related platelet aggregation, suggest redraw in SODIUM CITRATE and EDTA tubes for an accurate platelet count. PLATELET COUNT:89 K/cmm SPECIMEN COLLECTED GREATER THAN 3 HOURS PRIOR TO PROCESSING. DEGENERATIVE CHANGES CANNOT BE EXCLUDED. MORPHOLOGIC FINDINGS SHOULD BE TREATED WITH RESERVE. PLATELET COUNT reported incorrectly as 89 by [[id number]]. Changed to comment on Nov 18, 2018@00:22 by [[id number]]. PLATELET COUNT flagged incorrectly as L by [[id number]]. Changed to normal on Nov 18, 2018@00:22 by [[id number]]. [facility] CBC & DIFF EOSINOPHILS/100 GIANA KOCYTES IN BLOOD BY AUTOMATED COUNT 1 % 0 - 8 11/17/2018 Specimen Type: BLOOD Comment: Possible EDTA-related platelet aggregation, suggest redraw in SODIUM CITRATE and EDTA tubes for an accurate platelet count. PLATELET COUNT:89 K/cmm SPECIMEN COLLECTED GREATER THAN 3 HOURS PRIOR TO PROCESSING. DEGENERATIVE CHANGES CANNOT BE EXCLUDED. MORPHOLOGIC FINDINGS SHOULD BE TREATED WITH RESERVE. PLATELET COUNT reported incorrectly as 89 by [[id number]]. Changed to comment on Nov 18, 2018@00:22 by [[id number]]. PLATELET COUNT flagged incorrectly as L by [[id number]]. Changed to normal on Nov 18, 2018@00:22 by [[id number]]. [facility] CBC & DIFF MICROCYTES [PRESENC E] IN BLOOD BY LIGHT MICROSCOPY 1+ 019 Specimen Type: BLOOD Comment: Possible EDTA- related platelet aggregation, suggest redraw in SODIUM CITRATE and EDTA tubes for an accurate platelet count. PLATELET COUNT:89 K/cmm SPECIMEN COLLECTED GREATER THAN 3 HOURS PRIOR TO PROCESSING. DEGENERATIVE CHANGES CANNOT BE EXCLUDED. MORPHOLOGIC FINDINGS SHOULD BE TREATED WITH RESERVE. PLATELET COUNT reported incorrectly as 89 by [[id number]]. Changed to comment on Nov 18, 2018@00:22 by [[id number]]. PLATELET COUNT flagged incorrectly as L by [[id number]]. Changed to normal on Nov 18, 2018@00:22 by [[id number]]. [facility] CBC & DIFF MACROCYTES [PRESENC E] IN BLOOD BY LIGHT MICROSCOPY 1+ 019 Specimen Type: BLOOD Comment: Possible EDTA- related platelet aggregation, suggest redraw in SODIUM CITRATE and EDTA tubes for an accurate platelet count. PLATELET COUNT:89 K/cmm SPECIMEN COLLECTED GREATER THAN 3 HOURS PRIOR TO PROCESSING. DEGENERATIVE CHANGES CANNOT BE EXCLUDED. MORPHOLOGIC FINDINGS SHOULD BE TREATED WITH RESERVE. PLATELET COUNT reported incorrectly as 89 by [[id number]]. Changed to comment on Nov 18, 2018@00:22 by [[id number]]. PLATELET COUNT flagged incorrectly as L by [[id number]]. Changed to normal on Nov 18, 2018@00:22 by [[id number]]. [facility] CBC & DIFF ERYTHROCYTE DISTRIB UTION WIDTH [RATIO] BY AUTOMATED COUNT 12.3 % 11.8 - 15.1 11/17/2018 Specimen Type: BLOOD Comment: Possible EDTA-related platelet aggregation, suggest redraw in SODIUM CITRATE and EDTA tubes for an accurate platelet count. PLATELET COUNT:89 K/cmm SPECIMEN COLLECTED GREATER THAN 3 HOURS PRIOR TO PROCESSING. DEGENERATIVE CHANGES CANNOT BE EXCLUDED. MORPHOLOGIC FINDINGS SHOULD BE TREATED WITH RESERVE. PLATELET COUNT reported incorrectly as 89 by [[id number]]. Changed to comment on Nov 18, 2018@00:22 by [[id number]]. PLATELET COUNT flagged incorrectly as L by [[id number]]. Changed to normal on Nov 18, 2018@00:22 by [[id number]]. [facility] COMPREHENSIVE METABOLIC PANEL CREATININE [MASS/VOLUME] IN SERUM OR PLASMA 1.02 mg/dL 0.7 - 1.3 11/17/2018 Specimen Type: PLASMA Comment: For eGFR: eGFR results >60 are imprecise. Many variables affect the calculated result. Interpretation of eGFR results >60 must be monitored over time. [employer] COMPREHENSIVE METABOLIC PANEL UREA NITROGEN [MASS/VOLUME] IN SERUM OR PLASMA 6 mg/dL 9 - 25 11/17/2018 L Specimen Type: PLASMA Comment: For eGFR: eGFR results >60 are imprecise. Many variables affect the calculated result. Interpretation of eGFR results >60 must be monitored over time. [facility] COMPREHENSIVE METABOLIC PANEL GLUCOSE [MASS/VOLUME] IN SERUM OR PLASMA 124 mg/dL 72 - 99 11/17/2018 H Specimen Type: PLASMA Comment: For eGFR: eGFR results >60 are imprecise. Many variables affect the calculated result. Interpretation of eGFR results >60 must be monitored over time. [employer] COMPREHENSIVE METABOLIC PANEL SODIUM [MOLES/VOLUME] IN SERUM OR PLASMA 136 mEq/L 136 - 145 11/17/2018 Specimen Type: PLASMA Comment: For eGFR: eGFR results >60 are imprecise. Many variables affect the calculated result. Interpretation of eGFR results >60 must be monitored over time. [facility] COMPREHENSIVE METABOLIC PANEL POTASSIUM [MOLES/VOLUME] IN SERUM OR PLASMA 3.7 mEq/L 3.5 - 5.0 11/17/2018 Specimen Type: PLASMA Comment: For eGFR: eGFR results >60 are imprecise. Many variables affect the calculated result. Interpretation of eGFR results >60 must be monitored over time. [facility] COMPREHENSIVE METABOLIC PANEL CALCIUM [MASS/VOLUME] IN SERUM OR PLASMA 9.2 mg/dL 8.4 - 10.4 11/17/2018 Specimen Type: PLASMA Comment: For eGFR: eGFR results >60 are imprecise. Many variables affect the calculated result. Interpretation of eGFR results >60 must be monitored over time. [facility] COMPREHENSIVE METABOLIC PANEL PROTEIN [MASS/VOLUME] IN SERUM OR PLASMA 6.8 g/dL 6.0 - 8.6 11/17/2018 Specimen Type: PLASMA Comment: For eGFR: eGFR results >60 are imprecise. Many variables affect the calculated result. Interpretation of eGFR results >60 must be monitored over time. [facility] COMPREHENSIVE METABOLIC PANEL ALBUMIN [MASS/VOLUME] IN SERUM OR PLASMA 3.4 g/dl 3.4 - 5.0 11/17/2018 Specimen Type: PLASMA Comment: For eGFR: eGFR results >60 are imprecise. Many variables affect the calculated result. Interpretation of eGFR results >60 must be monitored over time. [facility] COMPREHENSIVE METABOLIC PANEL BILIRUBIN.TOTAL [MASS/VOLUME] IN SERUM OR PLASMA 1.6 mg/dL 0.2 - 1.2 11/17/2018 H Specimen Type: PLASMA Comment: For eGFR: eGFR results >60 are imprecise. Many variables affect the calculated result. Interpretation of eGFR results >60 must be monitored over time. [facility] COMPREHENSIVE METABOLIC PANEL ASPARTATE AMINOTRANSFERASE [ENZYMATIC ACTIVITY/VOLUME] IN SERUM OR PLASMA 27 U/L 5 - 34 11/17/2018 Specimen Type: PLASMA Comment: For eGFR: eGFR results >60 are imprecise. Many variables affect the calculated result. Interpretation of eGFR results >60 must be monitored over time. [facility] COMPREHENSIVE METABOLIC PANEL ALANINE AMINOTRANSFERASE [ENZYMATIC ACTIVITY/VOLUME] IN SERUM OR PLASMA 12 U/L 8 - 40 11/17/2018 Specimen Type: PLASMA Comment: For eGFR: eGFR results >60 are imprecise. Many variables affect the calculated result. Interpretation of eGFR results >60 must be monitored over time. [facility] COMPREHENSIVE METABOLIC PANEL ANION GAP IN SERUM OR PLASMA 9.8 2018 Specimen T ype: PLASMA Comment: For eGFR: eGFR results >60 are imprecise. Many variables affect the calculated result. Interpretation of eGFR results >60 must be monitored over time. [facility] COMPREHENSIVE METABOLIC PANEL CHLORIDE [MOLES/VOLUME] IN SERUM OR PLASMA 97 mEq/L 98 - 107 11/17/2018 L Specimen Type: PLASMA Comment: For eGFR: eGFR results >60 are imprecise. Many variables affect the calculated result. Interpretation of eGFR results >60 must be monitored over time. [facility] COMPREHENSIVE METABOLIC PANEL CARBON DIOXIDE, TOTAL [MOLES/VOLUME] IN SERUM OR PLASMA 29.2 mEq/L 22 - 31 11/17/2018 Specimen Type: PLASMA Comment: For eGFR: eGFR results >60 are imprecise. Many variables affect the calculated result. Interpretation of eGFR results >60 must be monitored over time. [facility] COMPREHENSIVE METABOLIC PANEL ALKALINE PHOSPHATASE [ENZYMATIC ACTIVITY/VOLUME] IN SERUM OR PLASMA 127 U/L 40 - 150 11/17/2018 Specimen Type: PLASMA Comment: For eGFR: eGFR results >60 are imprecise. Many variables affect the calculated result. Interpretation of eGFR results >60 must be monitored over time. [employer] COMPREHENSIVE METABOLIC PANEL GLOMERULAR FILTRATION RATE/1.73 SQ M.PREDICTED [VOLUME RATE/AREA] IN SERUM OR PLASMA BY CREATININE- BASED FORMULA (MDRD) >60 11/17/2018 Specimen Type: PLASMA Comment: For eGFR: eGFR results >60 are imprecise. Many variables affect the calculated result. Interpretation of eGFR results >60 must be monitored over time. [facility] LIPID PROFILE(HDL,TRIG,CHOL,LDL) CHOLESTEROL [MASS/VOLUME] IN SERUM OR PLASMA 139 mg/dL 0 - 200 11/17/2018 Specimen Type: PLASMA Comment: For eGFR: eGFR results >60 are imprecise. Many variables affect the calculated result. Interpretation of eGFR results >60 must be monitored over time. [facility] LIPID PROFILE(HDL,TRIG,CHOL,LDL) TRIGLYCERIDE [MASS/VOLUME] IN SERUM OR PLASMA 135 mg/dL 0 - 150 11/17/2018 Specimen Type: PLASMA Comment: For eGFR: eGFR results >60 are imprecise. Many variables affect the calculated result. Interpretation of eGFR results >60 must be monitored over time. [facility] LIPID PROFILE(HDL,TRIG,CHOL,LDL) CHOLESTEROL IN HDL [MASS/VOLUME] IN SERUM OR PLASMA 39 mg/dL 11/17/2018 L Specimen Type: PLASMA Comment: For eGFR: eGFR results >60 are imprecise. Many variables affect the calculated result. Interpretation of eGFR results >60 must be monitored over time. [employer] LIPID PROFILE(HDL,TRIG,CHOL,LDL) CHOLESTEROL IN LDL [MASS/VOLUME] IN SERUM OR PLASMA BY CALCULATION 73 mg/dL 0 - 99.9 11/17/2018 Specimen Type: PLASMA Comment: For eGFR: eGFR results >60 are imprecise. Many variables affect the calculated result. Interpretation of eGFR results >60 must be monitored over time. [employer] PROSTATIC SPECIFIC ANTIGEN(TOTAL) PROSTATE SPECIFIC AG [MASS/VOLUME] IN SERUM OR PLASMA 0.7 ng/mL 0 - 4 11/17/2018 Specimen Type: SERUM No comment entered. [employer] OCCULT BLOOD FIT X1 SCREEN HEMOGLOBIN.GASTROINTESTINAL.LOWER [PRESENCE] IN STOOL BY IMMUNOASSAY --1ST SPECIMEN Negative 0 11/22/2017 Specimen Type: FECES No comment entered. [employer] CBC & DIFF LEUKOCYTES [#/VOLUM E] IN BLOOD BY AUTOMATED COUNT 6.6 K/cmm 3.60 - 11.20 11/18/2017 Specimen Type: BLOOD No comment entered. [facility] CBC & DIFF ERYTHROCYTES [#/VOL UME] IN BLOOD BY AUTOMATED COUNT 4.70 M/ul 4.1 - 5.7 11/18/2017 Specimen Type: BLOOD No comment entered. [facility] CBC & DIFF HEMOGLOBIN [MASS/VOLUME] IN BLOOD 17.0 g/dl 13.1 - 16.8 11/18/2017 H Specimen Type: BLOOD No comment entered. [facility] CBC & DIFF HEMATOCRIT [VOLUME FRACTION] OF BLOOD BY AUTOMATED COUNT 49.9 % 38.2 - 48.4 11/18/2017 H Specimen Type: BLOOD No comment entered. [facility] CBC & DIFF MCV [ENTITIC VOLUME] BY A UTOMATED COUNT 106.2 fl 80.1 - 98.5 11/18/2017 H Specimen Type: BLOOD No comment entered. [facility] CBC & DIFF MCH [ENTITIC MASS] BY AUT OMATED COUNT 36.2 pg 27.0 - 34.0 11/18/2017 H Specimen Type: BLOOD No comment entered. [facility] CBC & DIFF MCHC [MASS/VOLUME] BY AUT OMATED COUNT 34.1 g/dl 33.0 - 36.0 11/18/2017 Specimen Type: BLOOD No comment entered. [facility] CBC & DIFF PLATELETS [#/VOLUME ] IN BLOOD BY AUTOMATED COUNT 102 K/cmm 150 - 400 11/18/2017 L Specimen Type: BLOOD No comment entered. [facility] CBC & DIFF PLATELET MEAN VOLUM E [ENTITIC VOLUME] IN BLOOD BY AUTOMATED COUNT 13.2 fl 7.5 - 11.2 11/18/2017 H Specimen Type: BLOOD No comment entered. [facility] CBC & DIFF ERYTHROCYTE DISTRIB UTION WIDTH [RATIO] BY AUTOMATED COUNT 13.1 % 11.8 - 15.1 11/18/2017 Specimen Type: BLOOD No comment entered. [facility] CBC & DIFF LYMPHOCYTES/100 GIANA KOCYTES IN BLOOD BY AUTOMATED COUNT 15.9 % 11/18/2017 Specimen Type: BLOOD No comment entered. [facility] CBC & DIFF NEUTROPHILS/100 GIANA KOCYTES IN BLOOD BY AUTOMATED COUNT 71.9 % 11/18/2017 Specimen Type: BLOOD No comment entered. [facility] CBC & DIFF MONOCYTES/100 LEUKO CYTES IN BLOOD BY AUTOMATED COUNT 7.4 % 11/18/2017 Specimen Type: BLOOD No comment entered. [facility] CBC & DIFF MONOCYTES [#/VOLUME ] IN BLOOD BY AUTOMATED COUNT 0.5 K/cmm 0.19 - 1.50 11/18/2017 Specimen Type: BLOOD No comment entered. [facility] CBC & DIFF NEUTROPHILS [#/VOLU ME] IN BLOOD BY AUTOMATED COUNT 4.7 K/cmm 2.10 - 8.00 11/18/2017 Specimen Type: BLOOD No comment entered. [facility] CBC & DIFF EOSINOPHILS [#/VOLU ME] IN BLOOD BY AUTOMATED COUNT 0.2 K/cmm 0.00 - 0.60 11/18/2017 Specimen Type: BLOOD No comment entered. [facility] CBC & DIFF BASOPHILS [#/VOLUME ] IN BLOOD BY AUTOMATED COUNT 0.1 K/cmm 0.00 - 0.20 11/18/2017 Specimen Type: BLOOD No comment entered. [facility] CBC & DIFF EOSINOPHILS/100 GIANA KOCYTES IN BLOOD BY AUTOMATED COUNT 3.2 % 11/18/2017 Specimen Type: BLOOD No comment entered. [facility] CBC & DIFF BASOPHILS/100 LEUKO CYTES IN BLOOD BY AUTOMATED COUNT 0.8 % 11/18/2017 Specimen Type: BLOOD No comment entered. [facility] CBC & DIFF LYMPHOCYTES [#/VOLU ME] IN BLOOD BY AUTOMATED COUNT 1.1 K/cmm 0.77 - 4.50 11/18/2017 Specimen Type: BLOOD No comment entered. [facility] CBC & DIFF IMMATURE GRANULOCYT ES [#/VOLUME] IN BLOOD BY AUTOMATED COUNT 0.05 K/cmm 0.00 - 0.05 11/18/2017 Specimen Type: BLOOD No comment entered. [facility] CBC & DIFF IMMATURE GRANULOCYT ES/100 LEUKOCYTES IN BLOOD BY AUTOMATED COUNT 0.8 % 11/18/2017 Specimen Type: BLOOD No comment entered. [facility] COMPREHENSIVE METABOLIC PANEL CREATININE [MASS/VOLUME] IN SERUM OR PLASMA 1.26 mg/dL 0.7 - 1.3 11/18/2017 Specimen Type: PLASMA No comment entered. [facility] COMPREHENSIVE METABOLIC PANEL UREA NITROGEN [MASS/VOLUME] IN SERUM OR PLASMA 8 mg/dL 9 - 25 11/18/2017 L Specimen Type: PLASMA No comment entered. [facility] COMPREHENSIVE METABOLIC PANEL GLUCOSE [MASS/VOLUME] IN SERUM OR PLASMA 126 mg/dL 72 - 99 11/18/2017 H Specimen Type: PLASMA No comment entered. [facility] COMPREHENSIVE METABOLIC PANEL SODIUM [MOLES/VOLUME] IN SERUM OR PLASMA 139 mEq/L 136 - 145 11/18/2017 Specimen Type: PLASMA No comment entered. [facility] COMPREHENSIVE METABOLIC PANEL POTASSIUM [MOLES/VOLUME] IN SERUM OR PLASMA 4.7 mEq/L 3.5 - 5.0 11/18/2017 Specimen Type: PLASMA No comment entered. [facility] COMPREHENSIVE METABOLIC PANEL CALCIUM [MASS/VOLUME] IN SERUM OR PLASMA 10.4 mg/dL 8.4 - 10.4 11/18/2017 Specimen Type: PLASMA No comment entered. [facility] COMPREHENSIVE METABOLIC PANEL PROTEIN [MASS/VOLUME] IN SERUM OR PLASMA 8.4 g/dL 6.0 - 8.6 11/18/2017 Specimen Type: PLASMA No comment entered. [facility] COMPREHENSIVE METABOLIC PANEL ALBUMIN [MASS/VOLUME] IN SERUM OR PLASMA 4.5 g/dl 3.4 - 5.0 11/18/2017 Specimen Type: PLASMA No comment entered. [facility] COMPREHENSIVE METABOLIC PANEL BILIRUBIN.TOTAL [MASS/VOLUME] IN SERUM OR PLASMA 2.1 mg/dL 0.2 - 1.2 11/18/2017 H Specimen Type: PLASMA No comment entered. [facility] COMPREHENSIVE METABOLIC PANEL ASPARTATE AMINOTRANSFERASE [ENZYMATIC ACTIVITY/VOLUME] IN SERUM OR PLASMA 34 U/L 5 - 34 11/18/2017 Specimen Type: PLASMA No comment entered. [facility] COMPREHENSIVE METABOLIC PANEL ALANINE AMINOTRANSFERASE [ENZYMATIC ACTIVITY/VOLUME] IN SERUM OR PLASMA 17 U/L 8 - 40 11/18/2017 Specimen Type: PLASMA No comment entered. [facility] COMPREHENSIVE METABOLIC PANEL ANION GAP IN SERUM OR PLASMA 11.7 11/18 Specimen T ype: PLASMA No comment entered. [facility] COMPREHENSIVE METABOLIC PANEL CHLORIDE [MOLES/VOLUME] IN SERUM OR PLASMA 98 mEq/L 98 - 107 11/18/2017 Specimen Type: PLASMA No comment entered. [facility] COMPREHENSIVE METABOLIC PANEL CARBON DIOXIDE, TOTAL [MOLES/VOLUME] IN SERUM OR PLASMA 29.3 mEq/L 22 - 31 11/18/2017 Specimen Type: PLASMA No comment entered. [facility] COMPREHENSIVE METABOLIC PANEL ALKALINE PHOSPHATASE [ENZYMATIC ACTIVITY/VOLUME] IN SERUM OR PLASMA 182 U/L 40 - 150 11/18/2017 H Specimen Type: PLASMA No comment entered. [facility] COMPREHENSIVE METABOLIC PANEL GLOMERULAR FILTRATION RATE/1.73 SQ M.PREDICTED [VOLUME RATE/AREA] IN SERUM OR PLASMA BY CREATININE- BASED FORMULA (MDRD) 56.6 11/18/2017 Specimen Type: PLASMA No comment entered. [facility] LIPID PROFILE(HDL,TRIG,CHOL,LDL) CHOLESTEROL [MASS/VOLUME] IN SERUM OR PLASMA 149 mg/dL 0 - 200 11/18/2017 Specimen Type: PLASMA No comment entered. [facility] LIPID PROFILE(HDL,TRIG,CHOL,LDL) TRIGLYCERIDE [MASS/VOLUME] IN SERUM OR PLASMA 169 mg/dL 0 - 150 11/18/2017 H Specimen Type: PLASMA No comment entered. [facility] LIPID PROFILE(HDL,TRIG,CHOL,LDL) CHOLESTEROL IN HDL [MASS/VOLUME] IN SERUM OR PLASMA 28 mg/dL 11/18/2017 L Specimen Type: PLASMA No comment entered. [facility] LIPID PROFILE(HDL,TRIG,CHOL,LDL) CHOLESTEROL IN LDL [MASS/VOLUME] IN SERUM OR PLASMA BY CALCULATION 87.2 mg/dL 0 - 99.9 11/18/2017 Specimen Type: PLASMA No comment entered. [facility] PROSTATIC SPECIFIC ANTIGEN(TOTAL) PROSTATE SPECIFIC AG [MASS/VOLUME] IN SERUM OR PLASMA 0.8 ng/mL 0 - 4 11/18/2017 Specimen Type: SERUM No comment entered. [facility] URINALYSIS COLOR OF URINE Yello w 11/18/2017 Specimen Type: URINE No comment entered. [facility] URINALYSIS SPECIFIC GRAVITY OF URINE 1.011 11/18/2017 Specimen Type: URINE No comment entered. [facility] URINALYSIS UROBILINOGEN [MASS/VOLUME ] IN URINE 2.0 mg/dL 0.1 - 1.0 11/18/2017 H Specimen Type: URINE No comment entered. [facility] URINALYSIS BILIRUBIN.TOTAL [VT ESENCE] IN URINE BY TEST STRIP Negative 0 11/18/2017 Specimen Type: URINE No comment entered. [facility] URINALYSIS KETONES [MASS/VOLUME] IN URINE BY TEST STRIP Negativemg/dl 11/18/2017 Specimen Type: URINE No comment entered. [facility] URINALYSIS GLUCOSE [MASS/VOLUME] IN URINE BY TEST STRIP Negativemg/dL 11/18/2017 Specimen Type: URINE No comment entered. [facility] URINALYSIS PROTEIN [MASS/VOLUME] IN URINE BY TEST STRIP Negativemg/dl - Trace" 11/18/2017 Specimen Type: URINE No comment entered. [facility] URINALYSIS PH OF URINE BY TEST STRIP 6.0 11/18/2017 Specimen Type: URINE No comment entered. [facility] URINALYSIS APPEARANCE OF URINE Clear 11/18/2017 Specimen Type: URINE No comment entered. [facility] URINALYSIS HEMOGLOBIN [PRESENCE] IN URINE Negative 11/18/2017 Specimen Type: URINE No comment entered. [facility] URINALYSIS NITRITE [PRESENCE] IN URI NE BY TEST STRIP Negative 11/18/2017 Specimen T ype: URINE No comment entered. [facility] URINALYSIS LEUKOCYTE ESTERASE [PRESENCE] IN URINE BY TEST STRIP Trace 10/24 Specimen Type: URINE No comment entered. [facility] URINALYSIS CALCIUM OXALATE CRY STALS [#/AREA] IN URINE SEDIMENT BY MICROSCOPY HIGH POWER FIELD Trace/HPF 11/18/2017 Specimen Type: URINE No comment entered. [facility] URINALYSIS HYALINE CASTS [#/AR EA] IN URINE SEDIMENT BY MICROSCOPY LOW POWER FIELD 3-4/LPF 11/18/2017 Specimen Type: URINE No comment entered. [facility] URINALYSIS LEUKOCYTES [#/AREA] IN URINE SEDIMENT BY MICROSCOPY HIGH POWER FIELD 3-5WBC/HPF 0 - 5 11/18/2017 Specimen Type: URINE No comment entered. [facility] URINALYSIS ERYTHROCYTES [#/VOL UME] IN URINE SEDIMENT BY MICROSCOPY HIGH POWER FIELD 3-5RBC/HPF 0 - 2 11/18/2017 H Specimen Type: URINE No comment entered. [facility] URINALYSIS EPITHELIAL CELLS.SQ UAMOUS [#/AREA] IN URINE SEDIMENT BY MICROSCOPY HIGH POWER FIELD Trace/HPF 11/18/2017 Specimen Type: URINE No comment entered. [facility] Vital Signs Combined list of inpatient and outpatient Vital Signs from all Department [facility] and/or [facility] medical facilities within the last 15 months. The included entries comply with the patient's data sharing authorizations. Vital Sign Value Date Comments Source SYSTOLIC BLOOD PRESSURE 136mm[ Hg] 11/17/2018 09:28:00 [facility] DIASTOLIC BLOOD PRESSURE 77mm[ Hg] 11/17/2018 09:28:00 [facility] PULSE OXIMETRY 100% 11/17/2018 09:28:00 [facility] WEIGHT 185.7[lb_av] 11/17/2018 09:28:00 [facility] BMI 25kg/m2 11/17/2018 09:28:00 [facility] PAIN 0 11/17 09:28:00 [facility] HEIGHT 72[in_us] 11/17/2018 09:28:00 [facility] TEMPERATURE 97[degF] 11/17/2018 09:28:00 [facility] PULSE 62/min 11/17/2018 09:28:00 [facility] RESPIRATION 22/min 11/17/2018 09:28:00 [facility] Encounters Combined list of encounters at [facility] and[facility]or [facility] [facility] for the last 15 months. Not all [facility] inpatient encounters are included. The incl uded entries comply with the patient's data sharing authorizations. Location Location Details Encounter Type Encounter Number Reason For Visit Attending Provider ADM Date DC Date Status Disposition Source Outpatient Encounter [id number] _MAPID:[id number] 05/26/2018 [facility] Outpatient Encounter [id number] _MAPID:[id number] 10/10/2018 [facility] Outpatient Encounter [id number] _MAPID:[id number] 10/11/2018 [facility] Outpatient Encounter [id number] _MAPID:[id number] 10/16/2018 [facility] Outpatient Encounter [id number] _MAPID:[id number] 10/19/2018 [facility] Outpatient Encounter [id number] ICD-10 -CM K86.81 Exocrine pancreatic insufficiency with Provider Comments: Exocrine pancreatic insufficiency MISA PACHECO 10/20/2018 [facility] Outpatient Encounter [id number] _MAPID:[id number] 10/23/2018 [facility] OFFICE/OUT [place]IS[place] [id number] ICD-10 -CM I10. Essential (primary) hypertension with Provider Comments: Benign hypertension (SCT [id number]) ANTHONY BLEVINS 11/17/2018 [facility] Outpatient Encounter [id number] _MAPID:[id number] 11[facility]21/[facility] [id number] _MAPID:[id number] 02/28/[facility] [id number] _MAPID:[id number] 03/29/2019 [facility] [id number] _MAPID :[id number] 04/02/2019 [facility] Outpatient Encounter [id number] _MAPID :[id number] AKI BLEVINST [facility] [id number] _MAPID:[id number] RODGER GAMINO 04/06/2019 [place] [address] Outpatient Encounter [id number] ICD-10 -CM I48.91 Unspecified atrial fibrillation with Provider Comments: AF- Atrial Fibrillation (SCT [id number]) RODGER GAMINO [facility]09[facility] [id number] _MAPID :[id number] 08/22/2019 [facility] Outpatient Encounter [id number] ICD-10 -CM I48.91 Unspecified atrial fibrillation with Provider Comments: Atrial Fibrillation,Unspec MISA AL 08/22/2019 [facility] Outpatient Encounter [id number] _MAPID :[id number] 08/27/2019 [facility] Outpatient Encounter [id number] ICD-10 -CM F32.9 Major depressive disorder, single episode, unspecified with Provider Comments: Major Depressive Disorder, single Episode, unspecified ALLYN BARBER 09/27/2019 [facility] Outpatient Encounter [id number] ICD-10 -CM F32.1 Major depressive disorder, single episode, moderate with Provider Comments: Major Depressive Disorder, single Episode, Moderate NOAH ANDUJAR 10/30/2019 [facility] Procedures No Data Provided for This Section Social History Combined list of available smoking, tobacco, and other social history on record at Department of Defense and/or Veterans Affairs facilities. The included entrie s comply with the patient's data sharing authorizations. Social History Type Response Date Comment Source Tobacco smoking status MIIS VA-TOBACCO QUIT < 1 YEAR 09/03/2019 [facility] History of tobacco use VA-TO BACCO FORMER USER 09/03/2019 [facility] History of tobacco use VA-TO BACCO USE BENDER MACHINE NO 10/19/2018 [facility] History of tobacco use VA-TO BACCO USE MED NO 10/19/2018 [facility] History of tobacco use VA-TO BACCO USE ADVICE 10/19/2018 [facility] History of tobacco use VA-TO BACCO USER EVERY DAY 10/19/2018 [facility] History of tobacco use VA-TO BACCO USE WI 30 MIN OF WAKEUP 10/19/2018 [facility] History of tobacco use VA-TO BACCO USE 30 YEARS OR MORE 10/19/2018 [facility] History of tobacco use TOBAC CO USER OFFERED MEDS 11/17/2017 [facility] History of tobacco use CURRE NT TOBACCO USER 11/17/2017 [facility] History of tobacco use TOBAC CO MEDS OFFERED BUT DECLINED 11/17/2017 [facility] History of tobacco use TOBAC CO CESSATION REFERRAL DECLINED 11/17/2017 [facility] History of tobacco use CURRE NT TOBACCO USER (NOT READY TO QUIT) 11/17/2017 [facility] Assessment and Plan No Data Provided for This Section Plan of Care No Data Provided for This Section Family History No Data Provided for This Section Advance Directives No Data Provided for This Section Functional Status No Data Provided for This Section
--- OUTSIDE RECORDS SUMMARY | 2019-10-31 20:52 | XMS REPORT | Encounter Summary ---
Author [facility] Address [address] [place] [address] Phone Unavailable Care Team Providers Care Wheel And Caster Repairer Name Role Phone RAYMOND MAI PCP Unavailable [...] PART A August 23, 2012 PART A [id number] [phone] MARTINTATYANAPAULINA PATIENT MEDICARE (WNR) MEDICARE (M) PART B August 23, 2012 PART B [id number] [phone] MARIOTATYANAPAULINA PATIENT Selected Encounter This section includes the information on record at [place] for the Encounter. Date/Time Encounter Type Encounter Description Reason Provider Source Mar 29, 2019 03:39 PM Outpatient Encounter ADMIN PAT ACTIVTIES (MASNO NCT) [facility] IHE Encounter Template Text not used by [...] appointme nts. The data comes from all [place] treatment facilities. Appointment Date/Time Appointment Type Appointment Facili ty Name Sep 27, 2019 09:00 AM AMBULATORY - PSYCHIATRY [facility] Surgical Procedures: All associated to the encounter [...] and tobacco- related health factors from the [place] facility where the Encounter took place. Current Smoking Status This section includes the most current smoking, or tobacco -related health factor, from the [place] facility where the Encounter took place. Date/Time Current Smoking Status Comment Facility Oct 19, 2018 08:40 AM VA-TOBACCO USE HEAD WAITER NO [facility] Tobacco Use History This section includes a history of the smoking, or tobacco -related health factors, that were collected on or before the date of the Encoun ter. The data comes from the [place] facility where the Encounter took place. Date/Time Smoking Status/Tobacco Use Comment Facil ity Oct 19, 2018 08:40 AM VA-TOBACCO USE ADVICE [facility] Oct 19, 2018 08:40 AM VA-TOBACCO USE HEAD WAITER NO [facility] Oct 19, 2018 08:40 AM VA-TOBACCO USE MED NO [facility] Oct 19, 2018 08:40 AM VA-TOBACCO USE WI 30 MIN OF WAKEUP P [facility] Oct 19, 2018 08:40 AM VA-TOBACCO USER EVERY DAY [facility] Nov 17, 2017 09:05 AM CURRENT TOBACCO USER [facility] Nov 17, 2017 09:05 AM CURRENT TOBACCO USER (NOT READY TO KAILYN T) [facility] Nov 17, 2017 09:05 AM TOBACCO CESSATION REFERRAL DECLINED [facility] Nov 17, 2017 09:05 AM TOBACCO MEDS OFFERED BUT DECLINED [facility] Nov 17, 2017 09:05 AM TOBACCO USER OFFERED MEDS [facility] Advance Directives: All historical and current No Data Provided for This Section Allergies and Adverse Reactions (ADRs): All historical and current Section Date Range: From patient's date of to the date document was create d. This section includes Allergies and Adverse Reactions (ADR s) on record with [place] for the patient. The data comes from a ll [place] treatment facilities. It does not list Allergies/ADRs that were removed or entered in error. Some allergies/ADRs may be reported in t he Immunization section. Allergen Event Date Event Type Reaction(s) Severity Source CODEINE Nov 18, 2009 Propensity to adverse reactions to drug (disorder) Eruption [facility] DEMEROL HYDROCHLORIDE INJECTION 50 MG/ML Nov 18, 2009 Propensity to adverse reactions to drug (disorder) Urticaria [facility] MEPERIDINE Nov 18, 2009 Propensity to adverse reactions to drug (disorder) Eruption [facility] SULFA DRUGS Nov 18, 2009 Propensity to adverse reactions to drug (disorder) Eruption [facility], [facility] 15 Medications: VA dispensed (-15 months) and Non-VA Documented (Obtained Outside A) Section Date Range: 1) prescriptions processed by a [place] pharmacy in the last 15 m [facility], and 2) all medications recorded in the [place] medical record as "non-VA medic ations". Pharmacy terms refer to [place] pharmacy's work on prescriptions. [place] patient s are advised to take their medications as instructed by their health care team. The data comes from all [place] treatment facilities. Glossary of Pharmacy Terms:Active = A prescription that can be filled at the local [place] pharmacy.Active: On Hold = An active prescription that will not be filled until pharmacy resolves the issue.Active: Susp = An active prescription that is not scheduled to be filled yet.Clinic Order = A medication received during a visit to a [place] clinic or emergency department (currently not available).Discontinued [...] TO PREVENT CLOGGING. 3 Nov 18, 2019 [id number] Nov 17, 2 019 ANTHONY BLEVINS AMLODIPINE BESYLATE 10MG TAB Active TAKE ONE TA BLET BY MOUTH EVERY MORNING FOR HEART/BLOOD PRESSURE DR FLOREZ 90 Feb 29, 2020 [id number] Sep 30, 2 020 ANTHONY BLEVINS AMYLASE 120,000UNIT/LIPASE 24,000UNIT/PROTEASE 76,000UNIT CA P,EC Discontinued TAKE 2 CAPSULES BY MOUTH THREE TIMES DAILY BEFORE MEALS FOR PANCREATIC ENZYME REPLACEMENT. TAKE WITH FOOD DIRECTED. DR FLOREZ, [facility] 270 Jan 22, 2019 [id number] Oct 31, 2018 ANTHONY BLEVINS AMYLASE 120,000UNIT/LIPASE 24,000UNIT/PROTEASE 76,000UNIT CA P,EC Discontinued TAKE 1 CAPSULE BY MOUTH ONCE A DAY NEEDED FOR PANCREATIC ENZYME REPLACEMENT. TAKE WITH FOOD DIRECTED. TAKE ONE TABLET BEFORE SNACKS DR FLOREZ ENGINEERING DESIGN MANAGER FOR PANCREATIC ENZYME REPLACEMENT. TAKE WITH FOOD DIRECTED. TAKE ONE TABLET BEFORE SNACKS DR FLOREZ ENGINEERING DESIGN MANAGER 180 Jan 22, 2019 [id number] Oct ANTHONY BLEVINS AMYLASE 120,000UNIT/LIPASE 24,000UNIT/PROTEASE 76,000UNIT CA P,EC TAKE 1 CAPSULE BY MOUTH ONCE A DAY NEEDED FOR PANCREATIC ENZYME REPLACEMENT. TAKE WITH FOOD DIRECTED. TAKE ONE TABLET BEFORE SNACKS DR FLOREZ ENGINEERING DESIGN MANAGER FOR PANCREATIC ENZYME REPLACEMENT. TAKE WITH FOOD DIRECTED. TAKE ONE TABLET BEFORE SNACKS DR FLOREZ ENGINEERING DESIGN MANAGER 180 Feb 15, 2019 [id number] Dec ANTHONY BLEVINS CLOPIDOGREL BISULFATE 75MG TAB Non-VA TAKE ONE TABLET BY MOUTH QOD Non-VA Documented by: BARBARA GAMEZ nted at: [facility] DABIGATRAN ETEXILATE 75MG CAP,ORAL Active TAKE ONE CAPSULE BY MOUTH TWO TIMES A DAY TO THIN BLOOD. DO NOT OPEN PACKAGE UNTIL READY FOR DOSE TO MAINTAIN STABILITY 180 Apr 04, 2020 [id number] Aug 13, 2019 ANTHONY BLEVINS DOXAZOSIN MESYLATE 4MG TAB Non-VA TAKE ONE- HALF TABLET BY MOUTH AT BEDTIME Non-VA Docume nted by: GABRIELE CRUMPume nted at: [facility] ESCITALOPRAM OXALATE 20MG TAB Non-VA TAKE ONE-HALF TABLET BY MOUTH TWO TIMES A DAY Non-VA Documented by: NOAH ANDUJAR Docume nted at: RADHA ONEIL [facility] FUROSEMIDE 40MG TAB Active TAKE ONE TABLET BY M OUTH EVERY MORNING FOR FLUID RETENTION DR FLOREZ 90 Feb 29, 2020 [id number] September 06, 2019 AKI BLEVINS FUROSEMIDE 40MG TAB Non- [place] TAKE ONE TABLET BY MOUTH EVERY MORNING Non-VA Documented by: BARBARA GAMEZ nted at: [facility] GABAPENTIN 100MG CAP Active: Susp TAKE TWO CAPSULES B Y MOUTH THREE TIMES A DAY DR FLOREZ 540 Feb 29, 2020 [id number] Dec 20, 2019 ANTHONY BLEVINS [facility] GABAPENTIN [...] MOUTH ONCE A DAY Jun 21, 2020 [id number] Jul 14, 2019 ANTHONY BLEVINS LOSARTAN POTASSIUM 100MG TAB Discontinued TAKE ONE TABLET BY MOUTH ONCE A DAY Nov 18, 2019 [id number] May 22, 2019 ANTHONY BLEVINS [place]AN POTASSIUM 100MG TAB Discontinued TAKE ONE TABLET BY MOUTH ONCE A DAY September 09, 2019 [id number] Oct 16, 2018 ANTHONY BLEVINS MAGNESIUM OXIDE [...] DR FLOREZ 45 Feb 28, 2 020 [id number] September 20, 2019 ANTHONY BLEVINS OMEPRAZOLE 20MG CAP,EC Active TAKE 1 CAPSULE BY MOUTH EVERY MORNING TO LOWER STOMACH ACID. TAKE 30 MINUTES PRIOR TO FOOD. 90 Nov 18, 2019 [id number] September 06, 2019 ANTHONY BLEVINS OMEPRAZOLE 20MG CAP,EC Discontinued TAKE 1 CAPSULE BY MOUTH EVERY MORNING TO LOWER STOMACH ACID. TAKE 30 MINUTES PRIOR TO FOOD. 90 Nov 19, 2018 [id number] September 08, 2018 ANTHONY BLEVINS ONDANSETRON HCL 8MG TAB TAKE ONE-HALF TA BLET BY MOUTH EVERY 4 HOURS NEEDED FOR NAUSEA Dec 17, 2018 [id number] Nov 17, 2018 ANTHONY BLEVINS ARSORA MUÑOZ POTASSIUM CHLORIDE 20MEQ TAB,SA (DISPERSIBLE) Non-VA TAKE ONE-HALF TABLET BY MOUTH EVERY MORNING Non-VA Documented by: BARBARA GAMEZ nted at: [facility] ROPINIROLE HCL 0.5MG TAB Active TAKE ONE TABLET BY MOUT H AT BEDTIME DR FLOREZ 90 Feb 29, 2020 [id number] September 09, 2019 ANTHONY BLEIVNS Problems (Conditions): All historical and current Section Date Range: From patient's date of to the date document was create d. This section includes a list of Problems (Conditions) know n to [facility] for the patient. It includes both active and inacti ve problems (conditions). The data comes from all [place] treatment facilities. Problem Status Problem Code Date of Onset Date of Resolution Comm ent(s) Provider Source Abnormal vision Active 5132840 Sep 24, 2 017 Entered By: GABRIELE CRUMP Comment: GABRIELE [place] [facility] AF- Atrial Fibrillation ([facility] [id number]) Active 11145173 Mar 30, 2019 Entered By: ANTHONY BLEVINS Comment: Dr Florez 02/20/29 ANTHONY BLEVINS [facility] Benign hypertension Active 53539466 ROLDAN YEUNG [facility] CAD - Coronary artery disease Active 21116906 GABRIELE [facility]. [facility] Chronic kidney disease stage 3 Active 968025921 [facility] Chronic obstructive lung disease Active 94540320 ANTHONY BLEVINS [facility] Chronic pancreatitis Active 716851255 Sergio BLEVINS RET [facility] Dyspnea on exertion Active 19216327 ANJANA,ANJ [place] Gastroesophageal reflux disease without esophagitis Active 30970816 5 ANJANABURAK RIVERA [facility] History of fall Active 703377290 BURAK YEUNG [facility] Impaired fasting glucose Active 801171413 GABRIELE GLASS [facility] Low back pain Active 501036373 Sep 24 7 Entered By: GABRIELE CRUMP Comment: had lumbar spine surgery of some type in september 2015 (approx) GABRIELE CRUMP [facility] Peripheral vascular disease Active 287606633 BU ANTHONY CARLSON [facility] Post percutaneous transluminal coronary angioplasty Active 285801 000 Sep 24, 2016 Entered By: GABRIELE CRUMP Comment: x 2015 [facility]RIELE CRUMP [facility] Carotid artery stenosis (SNOMED CT 26880979) Inactive 433.10 Nov 17, 2018 BURAK YEUNG [facility] Cough (ICD-9-CM 786.2) Inactive 786.2 Nov 18, 2017 HAS BURAK RAMIREZ [facility] Dyslipidemia (ICD-9-CM 272.4) Inactive 272.4 Nov 18, 2017 BURAK YEUNG [facility] Essential Hypertension (ICD-9-CM 401.9) Inactive 401.9 Nov 18, 2017 BURAK YEUNG [facility] GERD * (ICD-9-CM 530.81) Inactive 530.81 Nov 18, 2017 H BURAK BRENNAN [facility] Impaired Fasting Glucose (ICD-9-CM 790.21) Inactive 790.21 Nov 18, 2017 ANJANABURAK RIVERA [facility] Kidney Stones (ICD-9-CM 592.0) Inactive 592.0 Nov 18, 2017 ANJANA,ANJUM [facility] NEED INOC./VARICELLA - Need for inoculation against va ricella (ICD-9-CM V05.4) Inactive V05.4 Nov 18, 2017 ANJANA,ANJUM [facility] Peripheral vascular disease (SNOMED CT 382081943) Inactive 443.9 Nov 17, 2018 ANJANA,ANJUM [facility] PROPHY VACC STREP PNEU&FLU Inactive V06.6 Nov 18, 2017 ANJANA,BURAK [facility] PROPHY VACC. STREP PNEU Inactive V03.82 Nov 18, 2017 SENA EMILYBURAK [facility] TETANUS TOXOID INOCULAT Inactive V03.7 Nov 18, [facility] Tobacco Use Disorder * (ICD-9-CM 305.1) Inactive 305.1 Nov 18, 2017 ANJANA,[facility] Radiology Reports: +/- 30 days of the encounter No Data Provided for This Section Pathology Reports: +/- 30 days of the encounter No Data Provided for This Section Encounter Notes: All associated encounter notes This section contains the clinical notes associated to the Encounter. Date/Time Encounter Note(s) Provider Source Mar 29, 2019 03:39 PM ADMINISTRATIVE NOTE: LOCAL TITLE: [place]-ADMIN [facility] STANDARD TITLE: ADMINISTRATIVE NOTE DATE OF NOTE: MAR 29, 2019@15:39 ENTRY DATE: MAR 29, 2019@15:39:24 AUTHOR: KESHA CAT EXP COSIGNER: URGENCY: STATUS: COMPLETED [facility] Administrative Note: RECORDS RECEIVED TODAY by: Fax Nature of report:RX for Eloquis and progress notes Date(s) of record(s):03/29/19 Sending constitution party:[facility] [place], [place] /xavier/ KESHA CAT [facility] Signed: 03/29/2019 15:40 KESHA CAT [facility]
--- OUTSIDE RECORDS SUMMARY | 2019-10-31 20:52 | XMS REPORT | Encounter Summary ---
Author Author [facility] Address [address] [place] [address] Phone Unavailable Care Team Providers Care Ecological Technical Officer Name Role Phone RAYMOND MAI PCP Unavailable [...] PART A August 23, 2012 PART A [id number] MARTINTATYANAPAULINA PATIENT MEDICARE (WNR) MEDICARE (M) PART B August 23, 2012 PART B [id number] [phone] MARIOTATYANAPAULINA PATIENT Selected Encounter This section includes the information on record at [place] for the Encounter. Date/Time Encounter Type Encounter Description Reason Provider Source Aug 22, 2019 09:28 AM Outpatient Encounter ADMIN PAT ACTIVTIES ([facility] NCT) [facility] Encounter Template Text not used [...] appointme nts. The data comes from all [place] treatment facilities. Appointment Date/Time Appointment Type Appointment Facili ty Name Sep 27, 2019 09:00 AM AMBULATORY - PSYCHIATRY [facility] Oct 30, 2019 10:00 AM AMBULATORY - PSYCHIATRY RADHA GarvinKaitlin THAD [facility] Surgical Procedures: All associated to the [...] and tobacco- related health factors from the [place] facility where the Encounter took place. Current Smoking Status This section includes the most current smoking, or tobacco -related health factor, from the [place] facility where the Encounter took place. 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 The data comes from the [place] facility where the Encounter took place. Date/Time Smoking Status/Tobacco Use Comment Facil ity Oct 19, 2018 08:40 AM VA-TOBACCO USE ADVICE 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 Oct 19, 2018 08:40 AM VA-TOBACCO USE WI 30 MIN OF WAKEUP P ARSORA [facility] Oct 19, 2018 08:40 AM VA-TOBACCO USER EVERY DAY [facility] Nov 17, 2017 09:05 AM CURRENT TOBACCO USER [facility] Nov 17, 2017 09:05 AM CURRENT TOBACCO USER (NOT READY TO KAILYN T) [facility] Nov 17, 2017 09:05 AM TOBACCO CESSATION REFERRAL DECLINED [facility] Nov 17, 2017 09:05 AM TOBACCO MEDS OFFERED BUT DECLINED PA VELMA [facility] Nov 17, 2017 09:05 AM TOBACCO USER OFFERED MEDS [facility] Advance Directives: All historical and current No Data Provided for This Section Allergies and Adverse Reactions (ADRs): All historical and current Section Date Range: From patient's date of to the date document was create d. This section includes Allergies and Adverse Reactions (ADR s) on record with [place] for the patient. The data comes from a ll [place] treatment facilities. It does not list Allergies/ADRs that were removed or entered in error. Some allergies/ADRs may be reported in t he Immunization section. Allergen Event Date Event Type Reaction(s) Severity Source CODEINE Nov 18, 2009 Propensity to adverse reactions to drug (disorder) E[facility] DEMEROL HYDROCHLORIDE INJECTION 50 MG/ML Nov 18, 2009 Propensity to adverse reactions to drug (disorder) [facility] MEPERIDINE Nov 18, 2009 Propensity to adverse reactions to drug (disorder) Eruption [facility] SULFA DRUGS Nov 18, 2009 Propensity to adverse reactions to drug (disorder) E[facility] Medications: VA dispensed (-15 months) and Non-VA Documented (Obtained Outside A) Section Date Range: 1) prescriptions processed by a VA pharmacy in the last 15 m [facility], and 2) all medications recorded in the [place] medical record as "non-VA medic ations". Pharmacy terms refer to [place] pharmacy's work on prescriptions. [place] patient s are advised to take their medications as instructed by their health care team. The data comes from all [place] treatment facilities. Glossary of Pharmacy Terms:Active = A prescription that can be filled at the local [place] pharmacy.Active: On Hold = An active prescription that will not be filled until pharmacy resolves the issue.Active: Susp = An active prescription that is not scheduled to be filled yet.Clinic Order = A medication received during a visit to a [place] clinic or emergency department (currently not available).Discontinued [...] TO PREVENT CLOGGING. 3 Nov 18, 2019 [id number] Nov 17, 019 ANTHONY BLEVINS AMLODIPINE BESYLATE 10MG TAB Active TAKE ONE TA BLET BY MOUTH EVERY MORNING FOR HEART/BLOOD PRESSURE DR FLOREZ 90 Feb 29, 2020 [id number] Sep 30, 020 ANTHONY BLEVINS AMYLASE 120,000UNIT/LIPASE 24,000UNIT/PROTEASE 76,000UNIT CA P,EC Discontinued TAKE 2 CAPSULES BY MOUTH THREE TIMES DAILY BEFORE MEALS FOR PANCREATIC ENZYME REPLACEMENT. TAKE WITH FOOD DIRECTED. DR FLOREZ, [facility] 270 Jan 22, 2019 [id number] Oct 31, 2018 ANTHONY BLEVINS AMYLASE 120,000UNIT/LIPASE 24,000UNIT/PROTEASE 76,000UNIT CA P,EC Discontinued TAKE 1 CAPSULE BY MOUTH ONCE A DAY NEEDED FOR PANCREATIC ENZYME REPLACEMENT. TAKE WITH FOOD DIRECTED. TAKE ONE TABLET BEFORE SNACKS DR FLOREZ FRONT DESK LEAD FOR PANCREATIC ENZYME REPLACEMENT. TAKE WITH FOOD DIRECTED. TAKE ONE TABLET BEFORE SNACKS DR FLOREZ FRONT DESK LEAD 180 Jan 22, 2019 [id number] Oct ANTHONY BLEVINS AMYLASE 120,000UNIT/LIPASE 24,000UNIT/PROTEASE 76,000UNIT CA P,EC TAKE 1 CAPSULE BY MOUTH ONCE A DAY NEEDED FOR PANCREATIC ENZYME REPLACEMENT. TAKE WITH FOOD DIRECTED. TAKE ONE TABLET BEFORE SNACKS DR FLOREZ FRONT DESK LEAD FOR PANCREATIC ENZYME REPLACEMENT. TAKE WITH FOOD DIRECTED. TAKE ONE TABLET BEFORE SNACKS DR FLOREZ FRONT DESK LEAD 180 Feb 15, 2019 [id number] Dec ANTHONY BLEVINS CLOPIDOGREL BISULFATE 75MG TAB Non-VA TAKE ONE TABLET BY MOUTH QOD Non-VA Documented by: BARBARA GAMEZ nted at: [facility] DABIGATRAN ETEXILATE 75MG CAP,ORAL Active TAKE ONE CAPSULE BY MOUTH TWO TIMES A DAY TO THIN BLOOD. DO NOT OPEN PACKAGE UNTIL READY FOR DOSE TO MAINTAIN STABILITY 180 Apr 04, 2020 [id number] Aug 13, 2019 ANTHONY BLEVINS DOXAZOSIN MESYLATE 4MG TAB Non-VA TAKE ONE- HALF TABLET BY MOUTH AT BEDTIME Non-VA Docume nted by: GABRIELE CRUMP Docume nted at: [facility] ESCITALOPRAM OXALATE 20MG TAB Non-VA TAKE ONE-HALF TABLET BY MOUTH TWO TIMES A DAY Non-VA Documented by: NOAH ANDUJAR Docume nted at: RADHA ONEIL [facility] FUROSEMIDE 40MG TAB Active TAKE ONE TABLET BY M OUTH EVERY MORNING FOR FLUID RETENTION DR FLOREZ 90 Feb 29, 2020 [id number] September 06, 2019 AKI BLEVINS FUROSEMIDE 40MG TAB Non- [place] TAKE ONE TABLET BY MOUTH EVERY MORNING Non-VA Documented by: BARBARA GAMEZ Docume nted at: [facility] GABAPENTIN 100MG CAP Active: Susp TAKE TWO CAPSULES B Y MOUTH THREE TIMES A DAY DR FLOREZ 540 Feb 29, 2020 [id number] Dec 20, 2019 [facility]ONY BLEVINS [facility] GABAPENTIN [...] MOUTH ONCE A DAY Jun 21, 2020 [id number] Jul 14, 2019 ANTHONY BLEVINS LOSARTAN POTASSIUM 100MG TAB Discontinued TAKE ONE TABLET BY MOUTH ONCE A DAY Nov 18, 2019 [id number] May 22, 2019 ANTHONY BLEVINS CBELEN [place]AN POTASSIUM 100MG TAB Discontinued TAKE ONE TABLET BY MOUTH ONCE A DAY September 09, 2019 [id number] Oct 16, 2018 ANTHONY BLEVINS MAGNESIUM OXIDE [...] DR FLOREZ 45 Feb 28, 2 020 [id number] September 20, 2019 ANTHONY BLEVINS OMEPRAZOLE 20MG CAP,EC Active TAKE 1 CAPSULE BY MOUTH EVERY MORNING TO LOWER STOMACH ACID. TAKE 30 MINUTES PRIOR TO FOOD. 90 Nov 18, 2019 [id number] September 06, 2019 ANTHONY BLEVINS OMEPRAZOLE 20MG CAP,EC Discontinued TAKE 1 CAPSULE BY MOUTH EVERY MORNING TO LOWER STOMACH ACID. TAKE 30 MINUTES PRIOR TO FOOD. 90 Nov 19, 2018 [id number] September 08, 2018 ANTHONY BLEVINS ONDANSETRON HCL 8MG TAB TAKE ONE-HALF TA BLET BY MOUTH EVERY 4 HOURS NEEDED FOR NAUSEA Dec 17, 2018 [id number] Nov 17, 2018 ANTHONY BLEVINS P ARSORA MUÑOZ POTASSIUM CHLORIDE 20MEQ TAB,SA (DISPERSIBLE) Non-VA TAKE ONE-HALF TABLET BY MOUTH EVERY MORNING Non-VA Documented by: BARBARA GAMEZ nted at: [facility] ROPINIROLE HCL 0.5MG TAB Active TAKE ONE TABLET BY MOUT H AT BEDTIME DR FLOREZ 90 Feb 29, 2020 [id number] September 09, 2019 ANTHONY BLEVINS Problems (Conditions): All historical and current Section Date Range: From patient's date of to the date document was create d. This section includes a list of Problems (Conditions) know n to [place] for the [place]. It includes both active and inacti ve problems (conditions). The data comes from all [place] treatment facilities. Problem Status Problem Code Date of Onset Date of Resolution Comm ent(s) Provider Source Abnormal vision Active [id number] Sep 24, 2 017 Entered By: GABRIELE CRUMP Comment: GABRIELE [place] [facility] AF- Atrial Fibrillation ([facility] [id number]) Active 42500151 Mar 30, 2019 Entered By: ANTHONY BLEVINS Comment: Dr Florez 02/20/29 ANTHONY BLEVINS [facility] Benign hypertension Active 42182275 [facility] [place] CAD - Coronary artery disease Active 89771878 GABRIELE JACKSON [facility] Chronic kidney disease stage 3 Active 665949847 GABRIELE CRUMP [facility] Chronic obstructive lung disease Active 10996602 ANTHONY BLEVINS [facility] Chronic pancreatitis Active 514725250 Sergio BLEVINS RET [facility] Dyspnea on exertion Active 81828802 [facility] [place] Gastroesophageal reflux disease without esophagitis Active 36938402 5 BURAK YEUNG [facility] History of fall Active 548037313 [facility] Impaired fasting glucose Active 424156186 GABRIELE GLASS [facility] Low back pain Active 524196018 Sep 24 7 Entered By: GABRIELE CRUMP Comment: had lumbar spine surgery of some type in september 2015 (approx) GABRIELE CRUMP [facility] Peripheral vascular disease Active 293742804 ANTHONY SAMSON [facility] Post percutaneous transluminal coronary angioplasty Active 332213 000 Sep 24, 2016 Entered By: GABRIELE CRUMP Comment: x 2015 [facility] Carotid artery stenosis (SNOMED CT 44190506) Inactive 433.10 Nov 17, 2018 BURAK YEUNG [facility] Cough (ICD-9-CM 786.2) Inactive 786.2 Nov 18, 2017 HAS BURAK RAMIREZ [facility] Dyslipidemia (ICD-9-CM 272.4) Inactive 272.4 Nov 18, 2017 UBRAK YEUNG [facility] Essential Hypertension (ICD-9-CM 401.9) Inactive 401.9 Nov 18, 2017 BURAK YEUNG [facility] GERD * (ICD-9-CM 530.81) Inactive 530.81 Nov 18, 2017 H BURAK BRENNAN [facility] Impaired Fasting Glucose (ICD-9-CM 790.21) Inactive 790.21 Nov 18, 2017 ANJANA,[facility] Kidney Stones (ICD-9-CM 592.0) Inactive 592.0 Nov 18, 2017 [facility]OC./VARICELLA - Need for inoculation against va ricella (ICD-9-CM V05.4) Inactive V05.4 Nov 18, 2017 [facility] Peripheral vascular disease (SNOMED CT 556891425) Inactive 443.9 Nov 17, 2018 [facility] PROPHY VACC STREP PNEU&FLU Inactive V06.6 Nov 18, 2017 [facility] PROPHY VACC. STREP PNEU Inactive V03.82 Nov 18, 2017 [facility] TETANUS TOXOID INOCULAT Inactive V03.7 Nov 18, 2017 [facility] Tobacco Use Disorder * (ICD-9-CM 305.1) Inactive 305.1 Nov 18, 2017 [facility] Radiology Reports: +/- 30 days of the encounter No Data Provided for This Section Pathology Reports: +/- 30 days of the encounter No Data Provided for This Section Encounter Notes: All associated encounter notes This section contains the clinical notes associated to the Encounter. Date/Time Encounter Note(s) Provider Source Aug 22, 2019 09:28 AM ADMINISTRATIVE NOTE: LOCAL TITLE: [facility] EMERGENCY [facility]PART[facility] STANDARD TITLE: ADMINISTRATIVE NOTE DATE OF NOTE: AUG 22, 2019@09:28 ENTRY DATE: AUG 22, 2019@09:28:32 AUTHOR: KESHA CAT EXP COSIGNER: URGENCY: STATUS: COMPLETED [facility] Has ADDENDA [facility] Administrative Note: RECORDS RECEIVED TODAY by: Fax Nature of report:Progress notes and RX for Escitalopram Date(s) of record(s):08/20/19 Sending democrat:[facility], Amilcar Florez Md /xavier/ KESHA CAT MSA Signed: 08/22/2019 09:30 08/22/2019 ADDENDUM STATUS: COMPLETED will enter consult for community care, pt. can then get escitalopram filled per pmd dr. florez, the second alternative would be to have pt. see mental health to cont. to have this medication filled, what would pt. like to do, have pmd dr. florez fill the Rx or pt. to see mental health and manage and fill the Rx? please call and inform pt., thank you /xavier/ RAYMOND GRANT Signed: 08/22/2019 15:14 Receipt Acknowledged By: * AWAITING SIGNATURE * TAMEKA NINO,KESHA [facility]
--- OUTSIDE RECORDS SUMMARY | 2019-10-31 20:53 | XMS REPORT | Encounter Summary ---
Author Author [facility] Address [address] [place] [address] Phone Unavailable Care Team Providers Care Etcher Apprentice Name Role Phone RAYMOND MAI PCP Unavailable [...] PART A August 23, 2012 PART A [id number] MARTINTATYANAPAULINA PATIENT MEDICARE (WNR) MEDICARE (M) PART B August 23, 2012 PART B [id number] PAULINA MARTIN PATIENT Selected Encounter This section includes the information on record at [place] for the Encounter. Date/Time Encounter Type Encounter Description Reason Provider Source Apr 04, 2019 04:19 PM Outpatient Encounter ADMIN PAT ACTIVTIES (MAS NONCT) ANTHONY BLEVINS [facility] IHE Encounter Template Text not used by [place] Assessments - Encounter Diagnoses No Data Provided for This Section Plan of Treatment: Future Appointments (+ 6 months) and Future Tests (+/- 45 day s) The Plan of Treatment section includes future care activities for the patient fr om all [place] treatment facilities. This section includes future appointments and fu ture orders which are active, pending or scheduled. Future Appointments This section includes appointments that were scheduled t o occur 6 months from the date of the Encounter, up to a maximum of 20 appointme nts. The data comes from all [facility] facilities. Appointment Date/Time Appointment Type Appointment Facili ty Name Sep 27, 2019 09:00 AM AMBULATORY - [facility] Surgical Procedures: All associated to the encounter [...] Adverse Reactions (ADR s) on record with [facility] for the patient. The data comes from a ll [place] treatment facilities. It does not list Allergies/ADRs that were removed or entered in error. Some allergies/ADRs may be reported in t he Immunization section. Allergen Event Date Event Type Reaction(s) Severity Source CODEINE Nov 18, 2009 Propensity to adverse reactions to drug (disorder) Eruption [facility] DEMEROL HYDROCHLORIDE INJECTION 50 MG/ML Nov 18, 2009 Propensity to adverse reactions to drug (disorder) Urticaria [facility], [facility] MEPERIDINE Nov 18, 2009 Propensity to adverse reactions to drug (disorder) Eruption [facility] SULFA DRUGS Nov 18, 2009 Propensity to adverse reactions to drug (disorder) Eruption [facility], [facility] 15 Medications: VA dispensed (-15 months) and Non-VA Documented (Obtained Outside V A) Section Date Range: 1) prescriptions processed by a VA pharmacy in the last 15 m [facility], and 2) all medications recorded in the [place] medical record as "non-VA medic ations". Pharmacy terms refer to [place] pharmacy's work on prescriptions. VA patient s are advised to take their medications as instructed by their health care team. The data comes from all [place] treatment facilities. Glossary of Pharmacy Terms:Active = A prescription that can be filled at the local [place] pharmacy.Active: On Hold = An active prescription that will not be filled until pharmacy resolves the issue.Active: Susp = An active prescription that is not scheduled to be filled yet.Clinic Order = A medication received during a visit to a [place] clinic or emergency department (currently not available).Discontinued = A prescription stopped by a [place] provider. It is no longer available to be filled. = A prescription which is too old to fill. This does not refer to the expiration date of the medication in the container. Non-VA = A medication that came from someplace other than a [place] pharmacy. This may be a prescription from either the [place] or other providers that was filled outside the [place]. Or, it may be an over the [...] TO PREVENT CLOGGING. 3 Nov 18, 2019 [id number] Nov 17, 2 019 ANTHONY BLEVINS CBELEN AMLODIPINE BESYLATE 10MG TAB Active TAKE ONE TA BLET BY MOUTH EVERY MORNING FOR HEART/BLOOD PRESSURE DR FLOREZ 90 Feb 29, 2020 [id number] Sep 30, 2 020 ANTHONY BLEVINS AMYLASE 120,000UNIT/LIPASE 24,000UNIT/PROTEASE 76,000UNIT CA P,EC Discontinued TAKE 2 CAPSULES BY MOUTH THREE TIMES DAILY BEFORE MEALS FOR PANCREATIC ENZYME REPLACEMENT. TAKE WITH FOOD DIRECTED. DR FLOREZ, [facility] 270 Jan 22, 2019 [id number] Oct 31, 2018 ANTHONY BLEVINS AMYLASE 120,000UNIT/LIPASE 24,000UNIT/PROTEASE 76,000UNIT CA P,EC Discontinued TAKE 1 CAPSULE BY MOUTH ONCE A DAY NEEDED FOR PANCREATIC ENZYME REPLACEMENT. TAKE WITH FOOD DIRECTED. TAKE ONE TABLET BEFORE SNACKS DR FLOREZ GRILL ATTENDANT FOR PANCREATIC ENZYME REPLACEMENT. TAKE WITH FOOD DIRECTED. TAKE ONE TABLET BEFORE SNACKS DR FLOREZ GRILL ATTENDANT 180 Jan 22, 2019 [id number] Oct ANTHONY BLEVINS AMYLASE 120,000UNIT/LIPASE 24,000UNIT/PROTEASE 76,000UNIT CA P,EC TAKE 1 CAPSULE BY MOUTH ONCE A DAY NEEDED FOR PANCREATIC ENZYME REPLACEMENT. TAKE WITH FOOD DIRECTED. TAKE ONE TABLET BEFORE SNACKS DR FLOREZ GRILL ATTENDANT FOR PANCREATIC ENZYME REPLACEMENT. TAKE WITH FOOD DIRECTED. TAKE ONE TABLET BEFORE SNACKS DR FLOREZ GRILL ATTENDANT 180 Feb 15, 2019 [id number] Dec ANTHONY BLEVINS CLOPIDOGREL BISULFATE 75MG TAB Non-VA TAKE ONE TABLET BY MOUTH QOD Non-VA Documented by: BARBARA GAMEZume nted at: K[facility]STIN MUÑOZ DABIGATRAN ETEXILATE 75MG CAP,ORAL Active TAKE ONE CAPSULE BY MOUTH TWO TIMES A DAY TO THIN BLOOD. DO NOT OPEN PACKAGE UNTIL READY FOR DOSE TO MAINTAIN STABILITY 180 Apr 04, 2020 [id number] Aug 13, 2019 ANTHONY BLEVINS DOXAZOSIN MESYLATE 4MG TAB Non-VA TAKE ONE- HALF TABLET BY MOUTH AT BEDTIME Non-VA Docume nted by: GABRIELE CRUMP Docume nted at: [facility] ESCITALOPRAM OXALATE 20MG TAB Non-VA TAKE ONE-HALF TABLET BY MOUTH TWO TIMES A DAY Non-VA Documented by: NOAH ANDUJAR Docume nted at: RADHA ONEIL [facility] FUROSEMIDE 40MG TAB Active TAKE ONE TABLET BY M OUTH EVERY MORNING FOR FLUID RETENTION DR FLOREZ 90 Feb 29, 2020 [id number] September 06, 2019 AKI BLEVINS FUROSEMIDE 40MG TAB Non- VA TAKE ONE TABLET BY MOUTH EVERY MORNING Non-VA Documented by: BARBARA GAMEZ Docume nted at: [facility] GABAPENTIN 100MG CAP Active: Susp TAKE TWO CAPSULES B Y MOUTH THREE TIMES A DAY DR FLOREZ 540 Feb 29, 2020 [id number] Dec 20, 2019 ANTHONY BLEVINS GABAPENTIN TAB Non- VA TAKE 100 MG BY MOUTH THREE TIMES A DAY Non-VA Documented by: BARBARA GAMEZ Docume nted at: [facility] LORAZEPAM 0.5MG TAB Non- VA TAKE ONE TABLET BY MOUTH EVERY 8 HOURS NEEDED Non-VA Docume nted by: BARBARA GAMEZ Dockeny nted at: KRISTIN MUÑOZ LOSARTAN POTASSIUM 100MG TAB Active TAKE ONE TABLET BY MOUTH ONCE A DAY 30 Jun 21, 2020 [id number] Jul 14, 2019 ANTHONY BLEVINS LOS[place]AN POTASSIUM 100MG TAB Discontinued TAKE ONE TABLET BY MOUTH ONCE A DAY Nov 18, 2019 [id number] May 22, 2019 ANTHONY BLEVINS [place]AN POTASSIUM 100MG TAB Discontinued TAKE ONE TABLET BY MOUTH ONCE A DAY September 09, 2019 [id number] Oct 16, 2018 ANTHONY BLEVINS [facility] MAGNESIUM [...] DR FLOREZ 45 Feb 28, 2 020 [id number] September 20, 2019 ANTHONY BLEVINS [facility] OMEPRAZOLE 20MG CAP,EC Active TAKE 1 CAPSULE BY MOUTH EVERY MORNING TO LOWER STOMACH ACID. TAKE 30 MINUTES PRIOR TO FOOD. 90 Nov 18, 2019 [id number] September 06, 2019 ANTHONY BLEVINS OMEPRAZOLE 20MG CAP,EC Discontinued TAKE 1 CAPSULE BY MOUTH EVERY MORNING TO LOWER STOMACH ACID. TAKE 30 MINUTES PRIOR TO FOOD. 90 Nov 19, 2018 [id number] September 08, 2018 ANTHONY BLEVINS ONDANSETRON HCL 8MG TAB TAKE ONE-HALF TA BLET BY MOUTH EVERY 4 HOURS NEEDED FOR NAUSEA Dec 17, 2018 [id number] Nov 17, 2018 ANTHONY BLEVINS [facility] POTASSIUM CHLORIDE 20MEQ TAB,SA (DISPERSIBLE) Non-VA TAKE ONE-HALF TABLET BY MOUTH EVERY MORNING Non-VA Documented by: BARBARA GAMEZ nted at: [facility] MUÑOZ ROPINIROLE HCL 0.5MG TAB Active TAKE ONE TABLET BY MOUT H AT BEDTIME DR FLOREZ 90 Feb 29, 2020 [id number] September 09, 2019 ANTHONY BLEVINS Problems (Conditions): All historical and current Section Date Range: From patient's date of to the date document was create d. This section includes a list of Problems (Conditions) know n to [place] for the patient. It includes both active and inacti ve problems (conditions). The data comes from all [place] treatment facilities. Problem Status Problem Code Date of Onset Date of Resolution Comm ent(s) Provider Source Abnormal vision Active [id number] Sep 24, 2 017 Entered By: GABRIELE CRUMP Comment: bifocals GABRIELE CRUMP [facility] AF- Atrial Fibrillation (SCT 83345204) Active 14699106 Mar 30, 2019 Entered By: ANTHONY BLEVINS Comment: Dr Florez 02/20/29 ANTHONY BLEVINS [facility] Benign hypertension Active 38400019 [facility] CAD - Coronary artery disease Active 73048872 GABRIELE JACKSON [facility] Chronic kidney disease stage 3 Active 174950186 GABRIELE CRUMP [facility] Chronic obstructive lung disease Active 15836657 ANTHONY BLEVINS [facility] Chronic pancreatitis Active 404357348 Sergio BLEVINS RET [facility] Dyspnea on exertion Active 75732916 [facility] Gastro[facility]ophageal reflux disease without esophagitis Active 52373961 5 [facility] History of fall Active 450612801 [facility] Impaired fasting glucose Active 552947141 GABRIELE GLASS [facility] Low back pain Active 134476432 Sep 24, 201 7 Entered By: GABRIELE CRUMP Comment: had lumbar spine surgery of some type in september 2015 (approx) GABRIELE CRUMP [facility] Peripheral vascular disease Active 958584979 [facility] ANTHONY CARLSON [facility] Post percutaneous transluminal coronary angioplasty Active 921827 000 Sep 24, 2016 Entered By: GABRIELE CRUMP Comment: x 2015 GABRIELE CRUMP [facility] Carotid artery stenosis (SNOMED CT 54262604) Inactive 433.10 Nov 17, 2018 BURAK YEUNG [facility] Cough (ICD-9-CM 786.2) Inactive 786.2 Nov 18, 2017 HAS BURAK RAMIREZ [facility] Dyslipidemia (ICD-9-CM 272.4) Inactive 272.4 Nov 18, 2017 ANJANA,ANJUM [facility] Essential Hypertension (ICD-9-CM 401.9) Inactive 401.9 Nov 18, 2017 ANJANA,ANJUM [facility] GERD * (ICD-9-CM 530.81) Inactive 530.81 Nov 18, 2017 H JAYMIE BRENNANJUM [facility] Impaired Fasting Glucose (ICD-9-CM 790.21) Inactive 790.21 Nov 18, 2017 ANJANA,ANJUM [facility] Kidney Stones (ICD-9-CM 592.0) Inactive 592.0 Nov 18, 2017 [facility]VAR[facility]LL[facility] - Need for inoculation against va ricella (ICD-9-CM V05.4) Inactive V05.4 Nov 18, 2017 ANJANA,ANJUM [facility] Peripheral vascular disease (SNOMED CT 589218674) Inactive 443.9 Nov 17, 2018 BURAK YEUNG [facility] PROPHY VACC STREP PNEU&FLU Inactive V06.6 Nov 18, 2017 ANJANA,ANJUM [facility] PROPHY VACC. STREP PNEU Inactive V03.82 Nov 18, 2017 SENA BURAK DIAZ [facility] TETANUS TOXOID INOCULAT Inactive V03.7 Nov 18, 2017 BURAK SMART [facility] Tobacco Use Disorder * (ICD-9-CM 305.1) Inactive 305.1 Nov 18, 2017 ANJANA,ANJUM [facility] Radiology Reports: +/- 30 days of the encounter No Data Provided for This Section Pathology Reports: +/- 30 days of the encounter No Data Provided for This Section Encounter Notes: All associated encounter notes This section contains the clinical notes associated to the Encounter. Date/Time Encounter Note(s) Provider Source Apr 04, 2019 04:21 PM PHARMACY MEDICATION MGT CONS ULT: LOCAL TITLE: [place]-PRIOR APPROV[place] DR[place] REQUESTS STANDARD TITLE: PHARMACY MEDICATION MGT CONSULT DATE OF NOTE: APR 04, 2019@16:21 ENTRY DATE: APR 04, 2019@16:22:01 AUTHOR: RODGER GAMINO COSIGNER: URGENCY: STATUS: COMPLETED [place]-PRIOR APPROV[place] DRUG REQUESTS Has ADDENDA The medical record has been reviewed with regard to this prior authorization drug request. Medication requested: DABIGATRAN ETEXILATE 75MG ORAL CAP Medication indication: AF Medical history relevant to this request: [place] AF requesting DOAC for anticoagulation. Dose recommended by outside sfdc developer of dabigatran 75 mg PO BID lower than recommended for individuals requiring stroke prophylaxis for NVAF, unless CrCl 30-50 mL/min (CrCl 62 mL/min based off of most recent labs) or utilizing strong CY inhibitor (none indicated in medication list). Patient meets criteria for use otherwise. PCP indicated approval of above dosing schema after confering with IM provider. Prescription entered and will be mailed to patient. Will call patient for DOAC counseling. The request is approved - No formulary-preferred alternative Time spent on request: 30 minutes /vince Gamino PharmD, KRYSTIN, KATHLEEN, BRANDON Clinical Pharmacist Specialist Signed: 04/04/2019 16:28 Receipt Acknowledged By: 04/05/2019 07:30 /vince Rodriges APRN 04/05/2019 ADDENDUM STATUS: COMPLETED Attempted to contact to perform DOAC counseling. Phone call went straight to voicemail; left name and clinic contact information. Will attempt to contact at a later date. /vince Gamino PharmD, KRYSTIN, KATHLEEN, BRANDON Clinical Pharmacist Specialist Signed: 04/05/2019 13:55 04/06/2019 ADDENDUM STATUS: COMPLETED Second attempt to contact to perform DOAC counseling. Phone call went straight to voicemail; left name and clinic contact information. Will attempt to contact at a later date. /vince Gamino PharmD, KRYSTIN, KATHLEEN, BRANDON Clinical Pharmacist Specialist Signed: 04/06/2019 14:11 04/09/2019 ADDENDUM STATUS: COMPLETED Third attempt to contact to perform DOAC counseling. Phone call rang and then went to voicemail; left name and clinic contact information. Defering to primary care team for f/u. /es/ E. Erik, PharmD, AE-C, BCACP, CDE Clinical Pharmacist Specialist Signed: 04/09/2019 17:19 RODGER GAMINO [facility]
--- OUTSIDE RECORDS SUMMARY | 2019-10-31 20:53 | XMS REPORT | Encounter Summary ---
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 Date/Time Encounter Type Encounter Description Reason Provider Source Aug 22, 2019 02:29 PM Outpatient Encounter CLINICAL PHARMACY ICD -10-CM I48.91 Unspecified atrial fibrillation with Provider Comments: Atrial Fibrillation,Unspec MISA AL [facility] IHE Encounter Template Text not used by [place] Assessments - Encounter Diagnoses This section includes the primary and secondary diag noses documented for the Encounter. Date/Time Primary/Secondary Diagnosis Diagnosis Name Provider Source August 24, 2019 02:46 PM PRIMARY Unspecified atrial fibrillation MISA AL [facility] Plan of Treatment: Future Appointments (+ 6 months) and Future Tests (+/- 45 day s) The Plan of Treatment section includes future care activities for the patient fr om all [place] treatment facilities. This section includes future appointments and fu ture orders which are active, pending or scheduled. Future Appointments This section includes appointments that were scheduled t o occur 6 months from the date of the Encounter, up to a maximum of 20 appointme nts. The data comes from all [place] treatment facilities. Appointment Date/Time Appointment Type Appointment Facili ty Name Sep 27, 2019 09:00 AM AMBULATORY - [facility] Oct 30, 2019 10:00 AM AMBULATORY - PSYCHIATRY RADHA Hesham PATELSabina [facility] Surgical Procedures: All associated to the [...] Adverse Reactions (ADR s) on record with [place] for the patient. The data comes from a ll [place] treatment facilities. It does not list Allergies/ADRs that were removed or entered in error. Some allergies/ADRs may be reported in t he Immunization section. Allergen Event Date Event Type Reaction(s) Severity Source CODEINE Nov 18, 2009 Propensity to adverse reactions to drug (disorder) Eruption [facility], [facility] DEMEROL HYDROCHLORIDE INJECTION 50 MG/ML Nov 18, 2009 Propensity to adverse reactions to drug (disorder) Urticaria [facility], [facility] MEPERIDINE Nov 18, 2009 Propensity to adverse reactions to drug (disorder) Eruption [facility], [facility] SULFA DRUGS Nov 18, 2009 Propensity to adverse reactions to drug (disorder) Eruption [facility], [facility] 15 Medications: VA dispensed (-15 months) and Non-VA Documented (Obtained Outside A) Section Date Range: 1) prescriptions processed by a [place] pharmacy in the last 15 m [facility], and 2) all medications recorded in the [place] medical record as "non-VA medic ations". Pharmacy terms refer to VA pharmacy's work on prescriptions. VA patient s are advised to take their medications as instructed by their health care team. The data comes from all [place] treatment facilities. Glossary of Pharmacy Terms:Active = A prescription that can be filled at the local [place] pharmacy.Active: On Hold = An active prescription that will not be filled until pharmacy resolves the issue.Active: Susp = An active prescription that is not scheduled to be filled yet.Clinic Order = A medication received during a visit to a [place] clinic or emergency department (currently not available).Discontinued = A prescription stopped by a [place] provider. It is no longer available to be filled. = A prescription which is too old to fill. This does not refer to the expiration date of the medication in the container. Non-VA = A medication that came from someplace other than a VA pharmacy. This may be a prescription from either the [place] or other providers that was filled outside the [place]. Or, it may be an over the [...] TO PREVENT CLOGGING. 3 Nov 18, 2019 [id number] Nov 17, 2 019 [facility] AMLODIPINE BESYLATE 10MG TAB Active TAKE ONE TA BLET BY MOUTH EVERY MORNING FOR HEART/BLOOD PRESSURE DR FLOREZ 90 Feb 29, 2020 [id number] Sep 30, 2 020 [facility] AMYLASE 120,000UNIT/LIPASE 24,000UNIT/PROTEASE 76,000UNIT CA P,EC Discontinued TAKE 2 CAPSULES BY MOUTH THREE TIMES DAILY BEFORE MEALS FOR PANCREATIC ENZYME REPLACEMENT. TAKE WITH FOOD DIRECTED. DR FLOREZ, [facility] 270 Jan 22, 2019 [id number] Oct 31, 2018 [facility] AMYLASE 120,000UNIT/LIPASE 24,000UNIT/PROTEASE 76,000UNIT CA P,EC Discontinued TAKE 1 CAPSULE BY MOUTH ONCE A DAY NEEDED FOR PANCREATIC ENZYME REPLACEMENT. TAKE WITH FOOD DIRECTED. TAKE ONE TABLET BEFORE SNACKS DR FLOREZ DIRECTOR OF REHABILITATIVE SERVICES FOR PANCREATIC ENZYME REPLACEMENT. TAKE WITH FOOD DIRECTED. TAKE ONE TABLET BEFORE SNACKS DR FLOREZ DIRECTOR OF REHABILITATIVE SERVICES 180 Jan 22, 2019 [id number] Oct [facility] AMYLASE 120,000UNIT/LIPASE 24,000UNIT/PROTEASE 76,000UNIT CA P,EC TAKE 1 CAPSULE BY MOUTH ONCE A DAY NEEDED FOR PANCREATIC ENZYME REPLACEMENT. TAKE WITH FOOD DIRECTED. TAKE ONE TABLET BEFORE SNACKS DR FLOREZ DIRECTOR OF REHABILITATIVE SERVICES FOR PANCREATIC ENZYME REPLACEMENT. TAKE WITH FOOD DIRECTED. TAKE ONE TABLET BEFORE SNACKS DR FLOREZ DIRECTOR OF REHABILITATIVE SERVICES 180 Feb 15, 2019 [id number] Dec [facility] CLOPIDOGREL BISULFATE 75MG TAB Non-VA TAKE ONE TABLET BY MOUTH QOD Non-VA Documented by: BARBARA GAMEZ nted at: [facility] DABIGATRAN ETEXILATE 75MG CAP,ORAL Active TAKE ONE CAPSULE BY MOUTH TWO TIMES A DAY TO THIN BLOOD. DO NOT OPEN PACKAGE UNTIL READY FOR DOSE TO MAINTAIN STABILITY 180 Apr 04, 2020 [id number] Aug 13, 2019 [facility] DOXAZOSIN MESYLATE 4MG TAB Non-VA TAKE ONE- HALF TABLET BY MOUTH AT BEDTIME Non-VA Docume nted by: GABRIELE CRUMP Docume nted at: [facility] ESCITALOPRAM OXALATE 20MG TAB Non-VA TAKE ONE-HALF TABLET BY MOUTH TWO TIMES A DAY Non-VA Documented by: NOAH ANDUJAR Docume nted at: RADHA ONEIL [facility] FUROSEMIDE 40MG TAB Active TAKE ONE TABLET BY M OUTH EVERY MORNING FOR FLUID RETENTION DR FLOREZ 90 Feb 29, 2020 [id number] September 06, 2019 AKI [facility] FUROSEMIDE 40MG TAB Non- VA TAKE ONE TABLET BY MOUTH EVERY MORNING Non-VA Documented by: BARBARA GAMEZ nted at: [facility] GABAPENTIN 100MG CAP Active: Susp TAKE TWO CAPSULES B Y MOUTH THREE TIMES A DAY DR FLOREZ 540 Feb 29, 2020 [id number] Dec 20, 2019 ANTH[facility] GABAPENTIN TAB Non- VA TAKE 100 MG BY MOUTH THREE TIMES A DAY Non-VA Documented by: BARBARA GAMEZ Docume nted at: [facility] LORAZEPAM 0.5MG TAB Non- VA TAKE ONE TABLET BY MOUTH EVERY 8 HOURS NEEDED Non-VA Docume nted by: BARBARA GAMEZ Docume nted at: [facility] [place] POTASSIUM 100MG TAB Active TAKE ONE TABLET BY MOUTH ONCE A DAY Jun 21, 2020 [id number] Jul 14, 2019 [facility] [place] POTASSIUM 100MG TAB Discontinued TAKE ONE TABLET BY MOUTH ONCE A DAY Nov 18, 2019 [id number] May 22, 2019 [facility] [place] POTASSIUM 100MG TAB Discontinued TAKE ONE TABLET BY MOUTH ONCE A DAY September 09, 2019 [id number] Oct 16, 2018 [facility] MAGNESIUM [...] DR FLOREZ 45 Feb 28, 2 020 [id number] September 20, 2019 [facility] OMEPRAZOLE 20MG CAP,EC Active TAKE 1 CAPSULE BY MOUTH EVERY MORNING TO LOWER STOMACH ACID. TAKE 30 MINUTES PRIOR TO FOOD. 90 Nov 18, 2019 [id number] September 06, 2019 [facility] OMEPRAZOLE 20MG CAP,EC Discontinued TAKE 1 CAPSULE BY MOUTH EVERY MORNING TO LOWER STOMACH ACID. TAKE 30 MINUTES PRIOR TO FOOD. 90 Nov 19, 2018 [id number] September 08, 2018 [facility] ONDANSETRON HCL 8MG TAB TAKE ONE-HALF TA BLET BY MOUTH EVERY 4 HOURS NEEDED FOR NAUSEA Dec 17, 2018 [id number] Nov 17, 2018 [facility] POTASSIUM CHLORIDE 20MEQ TAB,SA (DISPERSIBLE) Non-VA TAKE ONE-HALF TABLET BY MOUTH EVERY MORNING Non-VA Documented by: BARBARA GAMEZ nted at: [facility] ROPINIROLE HCL 0.5MG TAB Active TAKE ONE TABLET BY MOUT H AT BEDTIME DR FLOREZ 90 Feb 29, 2020 [id number] September 09, 2019 [facility] Problems (Conditions): All historical and current Section Date Range: From patient's date of to the date document was create d. This section includes a list of Problems (Conditions) know n to [place] for the patient. It includes both active and inacti ve problems (conditions). The data comes from all [place] treatment facilities. Problem Status Problem Code Date of Onset Date of Resolution Comm ent(s) Provider Source Abnormal vision Active [id number] Sep 24, 2 017 Entered By: GABRIELE CRUMP Comment: GABRIELE [place] [facility] AF- Atrial Fibrillation (SCT [id number]) Active 35610637 Mar 30, 2019 Entered By: ANTHONY [facility] Comment: Dr Florez 02/20/29 ANTHONY [facility]INS [facility] Benign hypertension Active 66004751 [facility] CAD - Coronary artery disease Active 09140981 GABRIELE JACKSON [facility] Chronic kidney disease stage 3 Active [id number] [facility] Chronic obstructive lung disease Active 83097979 ANTHONY BLEVINS [facility] Chronic pancreatitis Active 040238402 Sergio [facility] Dyspnea on exertion Active 18301945 [facility] Gastroesophageal reflux disease without esophagitis Active 71373334 5 [facility] History of fall Active 356796534 [facility] Impaired fasting glucose Active 144434938 [facility] Low back pain Active 306525785 Sep 24, 201 7 Entered By: GABRIELE CRUMP Comment: had lumbar spine surgery of some type in september 2015 (approx) [facility] Peripheral vascular disease Active 087862524 BU ANTHONY CARLSON [facility] Post percutaneous transluminal coronary angioplasty Active 003965 000 Sep 24, 2016 Entered By: GABRIELE CRUMP Comment: x 2015 [facility] Carotid artery stenosis (SNOMED CT 91238176) Inactive 433.10 Nov 17, 2018 BURAK YEUNG [facility] Cough (ICD-9-CM 786.2) Inactive 786.2 Nov 18, 2017 HAS BURAK RAMIREZ [facility] Dyslipidemia (ICD-9-CM 272.4) Inactive 272.4 Nov 18, 2017 BURAK YEUNG [facility] Essential Hypertension (ICD-9-CM 401.9) Inactive 401.9 Nov 18, 2017 BURAK YEUNG [facility] GERD * (ICD-9-CM 530.81) Inactive 530.81 Nov 18, 2017 H MIKABURAK [facility] Impaired Fasting Glucose (ICD-9-CM 790.21) Inactive 790.21 Nov 18, 2017 ANJANA,ANJUM [facility] Kidney Stones (ICD-9-CM 592.0) Inactive 592.0 Nov 18, 2017 ANJANA,ANJUM [facility] NEED INOC./VARICELLA - Need for inoculation against va ricella (ICD-9-CM V05.4) Inactive V05.4 Nov 18, 2017 ANJANA,ANJUM [facility] Peripheral vascular disease (SNOMED CT 457609335) Inactive 443.9 Nov 17, 2018 BURAK YEUNG [facility] PROPHY VACC STREP PNEU&FLU Inactive V06.6 Nov 18, 2017 BURAK YEUNG [facility] PROPHY VACC. STREP PNEU Inactive V03.82 Nov 18, 2017 BURAK SMART [facility] TETANUS TOXOID INOCULAT Inactive V03.7 Nov 18, 2017 BURAK SMART [facility] Tobacco Use Disorder * (ICD-9-CM 305.1) Inactive 305.1 Nov 18, 2017 ANJANABURAK RIVERA [facility] Radiology Reports: +/- 30 days of the encounter No Data Provided for This Section Pathology Reports: +/- 30 days of the encounter No Data Provided for This Section Encounter Notes: All associated encounter notes This section contains the clinical notes associated to the Encounter. Date/Time Encounter Note(s) Provider Source Aug 22, 2019 02:29 PM PHARMACY OUTPATIENT NOTE: LOCAL T[facility] STANDARD TITLE: PHARMACY OUTPATIENT NOTE DATE OF NOTE: AUG 22, 2019@14:29 ENTRY DATE: AUG 22, 2019@14:30:06 AUTHOR: MISA AL COSIGNER: URGENCY: STATUS: COMPLETED S: [place] identified via DOAC Dashboard due to potential for inappropriate dose of DOAC based on kidney function. O: [place] currently prescribed dabigatran 75mg twice daily for atrial fibrillation. Most recent labs (03/19/19, in DOAC request): Scr 1.3 CrCl ~59.1 mL/min HGB 12.9 PLT 196 A: Per Up To Date dosing recommendations: Nonvalvular atrial fibrillation (to prevent stroke and systemic embolism): Oral: 150 mg twice daily. Note: Patients who are particularly concerned about the risk of bleeding or those assessed to be at increased risk of bleeding, may be considered candidates for an alternative lower dose regimen of 110 mg twice daily (off-label dose) (Elijah 2013; Mp 2018; Janet 2013). With renal impairment: Nonvalvular atrial fibrillation (to prevent stroke and systemic embolism): CrCl >50 mL/minute: No dosage adjustment necessary. Use with caution in mild renal impairment (CrCl 50 to 80 mL/minute) due to risk for increased dabigatran exposure (area under the curve may be increased 1.5 times higher than normal). CrCl 30 to 50 mL/minute: No dosage adjustment necessary unless patient receiving concomitant dronedarone or oral ketoconazole, then reduce dabigatran to 75 mg twice daily. Use with caution in moderate renal impairment due to risk for increased dabigatran exposure (area under the curve may be increased 3 times higher than normal), particularly if patient is also of advanced age. In patients with moderate to severe chronic kidney disease, dose reduction may be considered although safety and efficacy of this approach has not been established (AHA/ACC/HRS [April 2013]). CrCl 15 to 30 mL/minute: 75 mg twice daily unless patient receiving concomitant P-gp inhibitor, then avoid concurrent use. Note: Patients with CrCl <30 mL/minute were excluded from the RE-LY trial (Yulia 2009). Dose based on pharmacokinetic data; safety and efficacy has not been established. Some experts consider dabigatran contraindicated in patients with severe renal impairment (CrCl =30 mL/minute) (ACCP [Guyatt 2012] ). P: Per above, recommended dose of dabigatran for atrial fibrillation is 150mg twice daily for current CrCl. Unless pt has a risk factor that would qualify pt for lower dose, recommend full dose for prevention of stroke due to atrial fibrillation. 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 DOLE [facility]
--- OUTSIDE RECORDS SUMMARY | 2019-10-31 20:53 | XMS REPORT | Encounter Summary ---
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 Date/Time Encounter Type Encounter Description Reason Provider Source Nov 21, 2018 09:46 AM Outpatient Encounter ADMIN PAT ACTIVTIES (MASNO NCT) [facility] IHE Encounter Template Text not used by [facility] Assessments - Encounter Diagnoses No Data Provided for This Section Plan of Treatment: Future Appointments (+ 6 months) and Future Tests (+/- 45 day s) No Data Provided for This Section Surgical Procedures: All associated to the encounter No Data Provided for This Section Lab Results: +/- 30 days of the encounter This section includes the Chemistry and Hematology Lab R esults on record with VA for the patient. Radiology Reports and Pathology Report s are provided separately, in subsequent sections. Lab Results This section contains the Chemistry/Hematology Results everett t were resulted 30 days before or 30 days after the date of the Encounter. Date/Time Source Result Type Result - Unit Interpretation Reference Range Comment Nov 17, 2018 09:37 AM [facility] CBC & DIFF Specimen Type: BLOOD Comment: Possible EDTA-related platelet aggregation, suggest redraw in SODIUM CITRATE and EDTA tubes for an accurate platelet count. PLATELET COUNT:89 K/cmm SPECIMEN COLLECTED GREATER THAN 3 HOURS PRIOR TO PROCESSING. DEGENERATIVE CHANGES CANNOT BE EXCLUDED. MORPHOLOGIC FINDINGS SHOULD BE TREATED WITH RESERVE. PLATELET COUNT reported incorrectly as 89 by [[id number]]. Changed to comment on Nov 18, 2018@00:22 by [[id number]]. PLATELET COUNT flagged incorrectly as L by [[id number]]. Changed to normal on Nov 18, 2018@00:22 by [[id number]]. WBC 7.6 K/cmm 3.60-11.20 RBC 3.63 M/ul L 4.1-5.7 HGB 14.1 g/dl 13.1-16.8 HCT 39.2 % 38.2-48.4 MCV 108.0 fl H 80.1-98.5 MCH 38.8 pg H 27.0-34.0 MCHC 36.0 g/dl 33.0-36.0 PLATELET COUNT comment K/cmm 150-400 MPV 13.9 fl H 7.5-11.2 NEUTROPHILS 72 % 44-80 BAND NEUTROPHILS 3 % 0-7 LYMPHOCYTES 17 % L 20-40 MONOCYTES 7 % 4-8 EOSINOPHILS 1 % 0-8 MICROCYTOSIS 1+ MACROCYTOSIS 1+ RDW 12.3 % 11.8-15.1 Nov 17, 2018 09:37 AM [facility] COMPREHENSIVE METABOLIC PA HERO Specimen Type: PLASMA Comment: For eGFR: eGFR results >60 are imprecise. Many variables affect the calculated result. Interpretation of eGFR results >60 must be monitored over time. *CREATININE 1.02 mg/dL 0.7-1.3 UREA NITROGEN mg/dL 6 mg/dL L 9-25 GLUCOSE 124 mg/dL H 72-99 SODIUM 136 mEq/L 136-145 POTASSIUM 3.7 mEq/L 3.5-5.0 CALCIUM (mg/dL) 9.2 mg/dL 8.4-10.4 PROTEIN,TOTAL 6.8 g/dL 6.0-8.6 ALBUMIN 3.4 g/dl 3.4-5.0 TOTAL BILIRUBIN 1.6 mg/dL H 0.2-1.2 ASPARTATE TRANSAMINASE 27 U/L 5-34 ALANINE AMINOTRANSFERASE 12 U/L 8-40 ANION GAP 9.8 8-16 CHLORIDE 97 mEq/L L 98-107 CO2 29.2 mEq/L 22-31 ALKALINE PHOSPHATASE 127 U/L 40-150 EGFR >60 Nov 17, 2018 09:37 AM [facility] LIPID PROFILE(HDL,TRIG,CHO L,LDL) Specimen Type: PLASMA Comment: For eGFR: eGFR results >60 are imprecise. Many variables affect the calculated result. Interpretation of eGFR results >60 must be monitored over time. CHOLESTEROL 139 mg/dL 0-200 TRIGS 135 mg/dL 0-150 HDL-CHOLESTEROL 39 mg/dL L >40 LDL (CALC) 73 mg/dL 0-99.9 Nov 17, 2018 09:37 AM [facility] PROSTATIC SPECIFIC ANTIGEN (TOTAL) Specimen Type: SERUM No comment entered. PROSTATIC SPECIFIC ANTIGEN(TOTAL) 0.7 ng/mL 0-4 Vital Signs: All taken on the encounter date No Data Provided for This Section Immunizations: All administered on the encounter date No Data Provided for This Section Social History: Smoking Status (Most current) and Tobacco Use (All prior to enco unter date) This section includes the most current, and the historical, smoking and tobacco- related health factors from the DC facility where the Encounter took place. Current Smoking Status This section includes the most current smoking, or tobacco -related health factor, from the DC facility where the Encounter took place. Date/Time Current Smoking Status Comment Facility Oct 19, 2018 08:40 AM VA-TOBACCO USE LIABILITY ANALYST NO [facility] Tobacco Use History This section includes a history of the smoking, or tobacco -related health factors, that were collected on or before the date of the Encoun ter. The data comes from the DC facility where the Encounter took place. Date/Time Smoking Status/Tobacco Use Comment [facility] linda Oct 19, 2018 08:40 AM VA-TOBACCO USE ADVICE [facility] Oct 19, 2018 08:40 AM VA-TOBACCO USE LIABILITY ANALYST NO [facility] Oct 19, 2018 08:40 AM VA-TOBACCO USE MED NO [facility] Oct 19, 2018 08:40 AM VA-TOBACCO USE WI 30 MIN OF WAKEUP P [facility] Oct 19, 2018 08:40 AM VA-TOBACCO USER EVERY DAY [facility] Nov 17, 2017 09:05 AM CURRENT TOBACCO USER [facility] Nov 17, 2017 09:05 AM CURRENT TOBACCO USER (NOT READY TO KAILYN T) [facility] Nov 17, 2017 09:05 AM TOBACCO CESSATION REFERRAL DECLINED [facility] Nov 17, 2017 09:05 AM TOBACCO MEDS OFFERED BUT DECLINED [facility] Nov 17, 2017 09:05 AM TOBACCO USER [...] patient. The data comes from a ll DC treatment facilities. It does not list Allergies/ADRs that were removed or entered in error. Some allergies/ADRs may be reported in t he Immunization section. Allergen Event Date Event Type Reaction(s) Severity Source CODEINE Nov 18, 2009 Propensity to adverse reactions to drug (disorder) Eruption [facility], [facility] DEMEROL HYDROCHLORIDE INJECTION 50 MG/ML Nov 18, 2009 Propensity to adverse reactions to drug (disorder) Urticaria [facility], [facility] MEPERIDINE Nov 18, 2009 Propensity to adverse reactions to drug (disorder) Eruption [facility], [facility] 15 SULFA DRUGS Nov 18, 2009 Propensity to adverse reactions to drug (disorder) Eruption [facility], [facility] 15 Medications: VA dispensed (-15 months) and Non-VA Documented (Obtained Outside A) Section Date Range: 1) prescriptions processed by a VA pharmacy in the last 15 m [place], and 2) all medications recorded in the DC medical record as "non-VA medic ations". Pharmacy terms refer to VA pharmacy's work on prescriptions. VA patient s are advised to take their medications as instructed by their health care team. The data comes from all DC treatment facilities. Glossary of Pharmacy Terms:Active = A prescription that can be filled at the local DC pharmacy.Active: On Hold = An active prescription that will not be filled until pharmacy resolves the issue.Active: Susp = An active prescription that is not scheduled to be filled yet.Clinic Order = A medication received during a visit to a DC clinic or emergency department (currently not available).Discontinued = A prescription stopped by a DC provider. It is no longer available to be filled. = A prescription which is too old to fill. This does not refer to the expiration date of the medication in the container. Non-VA = A medication that came from someplace other than a DC pharmacy. This may be a prescription from either the DC or other providers that was filled outside the DC. Or, it may be an over the [...] TO PREVENT CLOGGING. 3 Nov 18, 2019 [id number] Nov 17, 2 019 [facility] AMLODIPINE BESYLATE 10MG TAB Active TAKE ONE TA BLET BY MOUTH EVERY MORNING FOR HEART/BLOOD PRESSURE DR FLOREZ 90 Feb 29, 2020 [id number] Sep 30, 2 020 ANTHONY LBEVINS AMYLASE 120,000UNIT/LIPASE 24,000UNIT/PROTEASE 76,000UNIT CA P,EC Discontinued TAKE 2 CAPSULES BY MOUTH THREE TIMES DAILY BEFORE MEALS FOR PANCREATIC ENZYME REPLACEMENT. TAKE WITH FOOD DIRECTED. DR FLOREZ, [facility] 270 Jan 22, 2019 [id number] Oct 31, 2018 ANTHONY BLEVINS AMYLASE 120,000UNIT/LIPASE 24,000UNIT/PROTEASE 76,000UNIT CA P,EC Discontinued TAKE 1 CAPSULE BY MOUTH ONCE A DAY NEEDED FOR PANCREATIC ENZYME REPLACEMENT. TAKE WITH FOOD DIRECTED. TAKE ONE TABLET BEFORE SNACKS DR FLOREZ SKIDDER RUNNER FOR PANCREATIC ENZYME REPLACEMENT. TAKE WITH FOOD DIRECTED. TAKE ONE TABLET BEFORE SNACKS DR FLOREZ SKIDDER [employer]NER 180 Jan 22, 2019 [id number] Oct [facility] AMYLASE 120,000UNIT/LIPASE 24,000UNIT/PROTEASE 76,000UNIT CA P,EC TAKE 1 CAPSULE BY MOUTH ONCE A DAY NEEDED FOR PANCREATIC ENZYME REPLACEMENT. TAKE WITH FOOD DIRECTED. TAKE ONE TABLET BEFORE SNACKS DR FLOREZ SKIDDER RUNNER FOR PANCREATIC ENZYME REPLACEMENT. TAKE WITH FOOD DIRECTED. TAKE ONE TABLET BEFORE SNACKS DR FLOREZ SKIDDER RUNNER 180 Feb 15, 2019 [id number] Dec ANTHONY BLEVINS CLOPIDOGREL BISULFATE 75MG TAB Non-VA TAKE ONE TABLET BY MOUTH QOD Non-VA Documented by: BARBARA GAMEZume nted at: KRISTIN MUÑOZ DABIGATRAN ETEXILATE 75MG CAP,ORAL Active TAKE ONE CAPSULE BY MOUTH TWO TIMES A DAY TO THIN BLOOD. DO NOT OPEN PACKAGE UNTIL READY FOR DOSE TO MAINTAIN STABILITY 180 Apr 04, 2020 [id number] Aug 13, 2019 ANTHONY BLEVINS DOXAZOSIN MESYLATE 4MG TAB Non-VA TAKE ONE- HALF TABLET BY MOUTH AT BEDTIME Non-VA Docume nted by: GABRIELE CRUMP Docume nted at: KRISTIN MUÑOZ ESCITALOPRAM OXALATE 20MG TAB Non-VA TAKE ONE-HALF TABLET BY MOUTH TWO TIMES A DAY Non-VA Documented by: NOAH ANDUJAR Docume nted at: RADHA GRANADOS [facility] FUROSEMIDE 40MG TAB Active TAKE ONE TABLET BY M OUTH EVERY MORNING FOR FLUID RETENTION DR FLOREZ 90 Feb 29, 2020 [id number] September 06, 2019 AKI BLEVINS FUROSEMIDE 40MG TAB Non- VA TAKE ONE TABLET BY MOUTH EVERY MORNING Non-VA Documented by: BARBARA GAMEZ nted at: KRISTIN MUÑOZ GABAPENTIN 100MG CAP Active: Susp TAKE TWO CAPSULES B Y MOUTH THREE TIMES A DAY DR FLOREZ 540 Feb 29, 2020 [id number] Dec 20, 2019 ANTHONY BLEVINS GABAPENTIN TAB Non- VA TAKE 100 MG BY MOUTH THREE TIMES A DAY Non-VA Documented by: BARBARA GAMEZ nted at: KRISTIN MUÑOZ LORAZEPAM 0.5MG TAB Non- VA TAKE ONE TABLET BY MOUTH EVERY 8 HOURS NEEDED Non-VA Docume nted by: BARBARA GAMEZ nted at: KRISTIN MUÑOZ LOSARTAN POTASSIUM 100MG TAB Active TAKE ONE TABLET BY MOUTH ONCE A DAY Jun 21, 2020 [id number] Jul 14, 2019 ANTHONY BLEVINS LOSARTAN POTASSIUM 100MG TAB Discontinued TAKE ONE TABLET BY MOUTH ONCE A DAY Nov 18, 2019 [id number] May 22, 2019 ANTHONY BLEVINS LOSARTAN POTASSIUM 100MG TAB Discontinued TAKE ONE TABLET BY MOUTH ONCE A DAY 30 September 09, 2019 [id number] Oct 16, 2018 [facility] MAGNESIUM [...] CUT IN HALF). DR FLOREZ 45 Feb 29, 2020 [id number] September 20, 2019 ANTHONY BLEVINS OMEPRAZOLE 20MG CAP,EC Active TAKE 1 CAPSULE BY MOUTH EVERY MORNING TO LOWER STOMACH ACID. TAKE 30 MINUTES PRIOR TO FOOD. 90 Nov 18, 2019 [id number] September 06, 2019 ANTHONY BLEVINS OMEPRAZOLE 20MG CAP,EC Discontinued TAKE 1 CAPSULE BY MOUTH EVERY MORNING TO LOWER STOMACH ACID. TAKE 30 MINUTES PRIOR TO FOOD. 90 Nov 19, 2018 [id number] September 08, 2018 ANTHONY BLEVINS ONDANSETRON HCL 8MG TAB TAKE ONE-HALF TA BLET BY MOUTH EVERY 4 HOURS NEEDED FOR NAUSEA Dec 17, 2018 [id number] Nov 17, 2018 ANTHONY BLEVINS POTASSIUM CHLORIDE 20MEQ TAB,SA (DISPERSIBLE) Non-VA TAKE ONE-HALF TABLET BY MOUTH EVERY MORNING Non-VA Documented by: BARBARA GAMEZ nted at: KRISTIN MUÑOZ ROPINIROLE HCL 0.5MG TAB Active TAKE ONE TABLET BY MOUT H AT BEDTIME DR FLOREZ 90 Feb 29, 2020 [id number] September 09, 2019 ANTHONY BLEVINS Problems (Conditions): All historical and current Section Date Range: From patient's date of to the date document was create d. This section includes a list of Problems (Conditions) know n to DC for the patient. It includes both active and inacti ve problems (conditions). The data comes from all [place] treatment facilities. Problem Status Problem Code Date of Onset Date of Resolution Comm ent(s) Provider Source Abnormal vision Active [id number] Sep 24, 2 017 Entered By: GABRIELE CRUMP Comment: bifocals GABRIELE CRUMP [facility] AF- Atrial Fibrillation (SCT 85142465) Active [id number] Mar 30, 2019 Entered By: ANTHONY BLEVINS Comment: Dr Florez 02/20/29 ANTHONY BLEVINS [facility] Benign hypertension Active 28141092 [facility] - Coronary artery disease Active 80432576 GABRIELE JACKSON [facility] Chronic kidney disease stage 3 Active 409450773 GABRIELE CRUMP [facility] Chronic obstructive lung disease Active 94604560 ANTHONY BLEVINS [facility] Chronic pancreatitis Active 519771530 Sergio BLEVINS [facility] Dyspnea on exertion Active 15970075 [facility] Gastroesophageal reflux disease without esophagitis Active 22298957 5 [facility] History of fall Active 688181889 [facility] Impaired fasting glucose Active 988452841 GABRIELE GLASS [facility] Low back pain Active 362363370 Sep 24, 7 Entered By: GABIRELE CRUMP Comment: had lumbar spine surgery of some type in september 2015 (approx) GABRIELE CRUMP [facility] Peripheral vascular disease Active 994466987 ANTHONY SAMSON [facility] Post percutaneous transluminal coronary angioplasty Active 951117 000 Sep 24, 2016 Entered By: GABRIELE CRUMP Comment: 2015 GABRIELE CRUMP [facility] Carotid artery stenosis (SNOMED CT 19650380) Inactive 433.10 Nov 17, 2018 [facility] Cough (ICD-9-CM 786.2) Inactive 786.2 Nov 18, 2017 HAS BURAK RAMIREZ [facility] Dyslipidemia (ICD-9-CM 272.4) Inactive 272.4 Nov 18, 2017 BURAK YEUNG [facility] Essential Hypertension (ICD-9-CM 401.9) Inactive 401.9 Nov 18, 2017 ANJANA,ANJUM [facility] GERD * (ICD-9-CM 530.81) Inactive 530.81 Nov 18, 2017 H BURAK BRENNAN [facility] Impaired Fasting Glucose (ICD-9-CM 790.21) Inactive 790.21 Nov 18, 2017 BURKA YEUNG [facility] Kidney Stones (ICD-9-CM 592.0) Inactive 592.0 Nov 18, 2017 BURAK YEUNG [facility] NEED INOC./VARICELLA - Need for inoculation against va ricella (ICD-9-CM V05.4) Inactive V05.4 Nov 18, 2017 ANJANA,ANJUM [facility] Peripheral vascular disease (SNOMED CT 766515277) Inactive 443.9 Nov 17, 2018 ANJANA,ANJUM [facility] PROPHY VACC STREP PNEU&FLU Inactive V06.6 Nov 18, 2017 ANJANA,ANJUM [facility] PROPHY VACC. STREP PNEU Inactive V03.82 Nov 18, 2017 SENA BURAK DIAZ [facility] TETANUS TOXOID INOCULAT Inactive V03.7 Nov 18, 2017 BURAK SMART [facility] Tobacco Use Disorder * (ICD-9-CM 305.1) Inactive 305.1 Nov 18, 2017 ANJANA,ANJUM [facility] Radiology Reports: +/- 30 days of the encounter No Data Provided for This Section Pathology Reports: +/- 30 days of the encounter No Data Provided for This Section Encounter Notes: All associated encounter notes This section contains the clinical notes associated to the Encounter. Date/Time Encounter Note(s) Provider Source Nov 21, 2018 09:46 AM DIAGNOSTIC STUDY REPORT: LOCAL TITLE: WI-FORM LETTER DIAGNOSTIC RESULTS STANDARD TITLE: DIAGNOSTIC STUDY REPORT DATE OF NOTE: NOV 21, 2018@09:46 ENTRY DATE: NOV 21, 2018@09:46:55 AUTHOR: BARBARA GAMEZ EXP COSIGNER: URGENCY: STATUS: COMPLETED Department [facility] Radha Granados [address] [place] [address] PAULINA VALDERRAMA [address], [place], [address] Oct Dear PAULINA VALDERRAMA, The purpose of this letter is to inform you of [facility] [place], [place] Your Lab results were reviewed. Your glucose is elevated to 124. Reduce sugar intake. Your stool card was negative for blood. You tested negative for hepatitis C. [facility]
--- OUTSIDE RECORDS SUMMARY | 2019-10-31 20:53 | XMS REPORT | Encounter Summary ---
Author [facility] Address [address] [place] [address] Phone Unavailable Care Team Providers Care Drop Forger Name Role Phone RAYMOND MAI PCP Unavailable [...] PART A August 23, 2012 PART A [id number] MARIOTATYANAPAULINA PATIENT MEDICARE (WNR) MEDICARE (M) PART B August 23, 2012 PART B [id number] [phone] PAULINA MARTIN PATIENT Selected Encounter This section includes the information on record at [place] for the Encounter. Date/Time Encounter Type Encounter Description Reason Provider Source Apr 06, 2019 02:08 PM Outpatient Encounter TELEPHONE PRIMARY CARE R[facility] IHE Encounter Template Text not used by [place] Assessments - Encounter Diagnoses No Data Provided for This Section Plan of Treatment: Future Appointments (+ 6 months) and Future Tests (+/- 45 day s) The Plan of Treatment section includes future care activities for the patient fr om all [place] treatment facilities. This section includes future appointments and fu ture orders which are active, pending or scheduled. Future Appointments This section includes appointments that were scheduled t o occur 6 months from the date of the Encounter, up to a maximum of 20 appointme nts. The data comes from all [place] treatment facilities. Appointment Date/Time Appointment Type Appointment [...] patient. The data comes from a ll [place] treatment facilities. It does not list Allergies/ADRs that were removed or entered in error. Some allergies/ADRs may be reported in t he Immunization section. Allergen Event Date Event Type Reaction(s) Severity Source CODEINE Nov 18, 2009 Propensity to adverse reactions to drug (disorder) [facility] DEMEROL HYDROCHLORIDE INJECTION 50 MG/ML Nov 18, 2009 Propensity to adverse reactions to drug (disorder) Urticaria [facility], [facility] MEPERIDINE Nov 18, 2009 Propensity to adverse reactions to drug (disorder) [facility] SULFA DRUGS Nov 18, 2009 Propensity to adverse reactions to drug (disorder) [facility] Medications: VA dispensed (-15 months) and Non-VA Documented (Obtained Outside V A) Section Date Range: 1) prescriptions processed by a VA pharmacy in the last [address] [facility], and 2) all medications recorded in the [place] medical record as "non-VA medic ations". Pharmacy terms refer to [place] pharmacy's work on prescriptions. VA patient s are advised to take their medications as instructed by their health care team. The data comes from all [place] treatment facilities. Glossary of Pharmacy Terms:Active = A prescription that can be filled at the local [place] pharmacy.Active: On Hold = An active prescription that will not be filled until pharmacy resolves the issue.Active: Susp = An active prescription that is not scheduled to be filled yet.Clinic Order = A medication received during a visit to a [place] clinic or emergency department (currently not available).Discontinued = A prescription stopped by a [place] provider. It is no longer available to be filled. = A prescription which is too old to fill. This does not refer to the expiration date of the medication in the container. Non-VA = A medication that came from someplace other than a [place] pharmacy. This may be a prescription from either the [place] or other providers that was filled outside the [place]. Or, it may be an over the [...] TO PREVENT CLOGGING. 3 Nov 18, 2019 [id number] Nov 17, 2 019 [facility] AMLODIPINE BESYLATE 10MG TAB Active TAKE ONE TA BLET BY MOUTH EVERY MORNING FOR HEART/BLOOD PRESSURE DR FLOREZ 90 Feb 29, 2020 [id number] Sep 30, 2 020 ANTHONY BLEVINS AMYLASE 120,000UNIT/LIPASE 24,000UNIT/PROTEASE 76,000UNIT CA P,EC Discontinued TAKE 2 CAPSULES BY MOUTH THREE TIMES DAILY BEFORE MEALS FOR PANCREATIC ENZYME REPLACEMENT. TAKE WITH FOOD DIRECTED. DR FLOREZ, [facility] 270 Jan 22, 2019 [id number] Oct 31, 2018 [facility] AMYLASE 120,000UNIT/LIPASE 24,000UNIT/PROTEASE 76,000UNIT CA P,EC Discontinued TAKE 1 CAPSULE BY MOUTH ONCE A DAY NEEDED FOR PANCREATIC ENZYME REPLACEMENT. TAKE WITH FOOD DIRECTED. TAKE ONE TABLET BEFORE SNACKS DR FLOREZ DIRECTOR OF PHYSICAL EDUCATION FOR PANCREATIC ENZYME REPLACEMENT. TAKE WITH FOOD DIRECTED. TAKE ONE TABLET BEFORE SNACKS DR FLOREZ DIRECTOR OF PHYSICAL EDUCATION 180 Jan 22, 2019 [id number] Oct ANTHONY BLEVINS AMYLASE 120,000UNIT/LIPASE 24,000UNIT/PROTEASE 76,000UNIT CA P,EC TAKE 1 CAPSULE BY MOUTH ONCE A DAY NEEDED FOR PANCREATIC ENZYME REPLACEMENT. TAKE WITH FOOD DIRECTED. TAKE ONE TABLET BEFORE SNACKS DR FLOREZ DIRECTOR OF PHYSICAL EDUCATION FOR PANCREATIC ENZYME REPLACEMENT. TAKE WITH FOOD DIRECTED. TAKE ONE TABLET BEFORE SNACKS DR FLOREZ DIRECTOR OF PHYSICAL EDUCATION 180 Feb 15, 2019 [id number] Dec ANTHONY BLEVINS CLOPIDOGREL BISULFATE 75MG TAB Non-VA TAKE ONE TABLET BY MOUTH QOD Non-VA Documented by: BARBARA GAMEZ nted at: [facility] DABIGATRAN ETEXILATE 75MG CAP,ORAL Active TAKE ONE CAPSULE BY MOUTH TWO TIMES A DAY TO THIN BLOOD. DO NOT OPEN PACKAGE UNTIL READY FOR DOSE TO MAINTAIN STABILITY 180 Apr 04, 2020 [id number] Aug 13, 2019 ANTHONY BLEVINS DOXAZOSIN MESYLATE 4MG TAB Non-VA TAKE ONE- HALF TABLET BY MOUTH AT BEDTIME Non-VA Docume nted by: GABRIELE CRUMP Docume nted at: [facility] ESCITALOPRAM OXALATE 20MG TAB Non-VA TAKE ONE-HALF TABLET BY MOUTH TWO TIMES A DAY Non-VA Documented by: NOAH ANDUJAR Docume nted at: RDAHA ONEIL [facility] FUROSEMIDE 40MG TAB Active TAKE ONE TABLET BY M OUTH EVERY MORNING FOR FLUID RETENTION DR FLOREZ 90 Feb 29, 2020 [id number] September 06, 2019 AKI BLEVINS FUROSEMIDE 40MG TAB Non- VA TAKE ONE TABLET BY MOUTH EVERY MORNING Non-VA Documented by: BARBARA GAMEZ nted at: [facility] GABAPENTIN 100MG CAP Active: Susp TAKE TWO CAPSULES B Y MOUTH THREE TIMES A DAY DR FLOREZ 540 Feb 29, 2020 [id number] Dec 20, 2019 ANTHONY BLEVINS GABAPENTIN TAB [...] MOUTH ONCE A DAY Jun 21, 2020 [id number] Jul 14, 2019 ANTHONY BLEVINS [place] POTASSIUM 100MG TAB Discontinued TAKE ONE TABLET BY MOUTH ONCE A DAY Nov 18, 2019 [id number] May 22, 2019 ANTHONY BLEVINS [place] POTASSIUM 100MG TAB Discontinued TAKE ONE TABLET BY MOUTH ONCE A DAY September 09, 2019 [id number] Oct 16, 2018 [facility] MAGNESIUM [...] DR FLOREZ 45 Feb 28, 2 020 [id number] September 20, 2019 [facility] OMEPRAZOLE 20MG CAP,EC Active TAKE 1 CAPSULE BY MOUTH EVERY MORNING TO LOWER STOMACH ACID. TAKE 30 MINUTES PRIOR TO FOOD. 90 Nov 18, 2019 [id number] September 06, 2019 ANTHONY BLEVINS OMEPRAZOLE 20MG CAP,EC Discontinued TAKE 1 CAPSULE BY MOUTH EVERY MORNING TO LOWER STOMACH ACID. TAKE 30 MINUTES PRIOR TO FOOD. 90 Nov 19, 2018 [id number] September 08, 2018 ANTHONY BLEVINS ONDANSETRON HCL 8MG TAB TAKE ONE-HALF TA BLET BY MOUTH EVERY 4 HOURS NEEDED FOR NAUSEA Dec 17, 2018 [id number] Nov 17, 2018 ANTHONY BLEVINS POTASSIUM CHLORIDE 20MEQ TAB,SA (DISPERSIBLE) Non-VA TAKE ONE-HALF TABLET BY MOUTH EVERY MORNING Non-VA Documented by: BARBARA GAMEZ nted at: [facility] ROPINIROLE HCL 0.5MG TAB Active TAKE ONE TABLET BY MOUT H AT BEDTIME DR FOLREZ 90 Feb 29, 2020 [id number] September 09, 2019 ANTHONY BLEVINS Problems (Conditions): All historical and current Section Date Range: From patient's date of to the date document was create d. This section includes a list of Problems (Conditions) know n to [place] for the patient. It includes both active and inacti ve problems (conditions). The data comes from all [place] treatment facilities. Problem Status Problem Code Date of Onset Date of Resolution Comm ent(s) Provider Source Abnormal vision Active [id number] Sep 24, 2 017 Entered By: GABRIELE CRUMP Comment: bifocals GABRIELE CRUMP [facility] AF- Atrial Fibrillation (SCT [id number]) Active 12005865 Mar 30, 2019 Entered By: ANTHONY BLEVINS Comment: Dr Florez 02/20/29 ANTHONY BLEVINS [facility] Benign hypertension Active 86485586 [facility] CAD - Coronary artery disease Active 75707303 GABRIELE JACKSON [facility] Chronic kidney disease stage 3 Active [id number] GABRIELE CRUMP [facility] Chronic obstructive lung disease Active 94994974 ANTHONY BLEVINS [facility] Chronic pancreatitis Active [id number] Sergio BLEVINS RET [facility] Dyspnea on exertion Active 73636487 [facility] Gastroesophageal reflux disease without esophagitis Active 76271048 5 [facility] History of fall Active 371062384 [facility] Impaired fasting glucose Active 694960028 GABRIELE GLASS [facility] Low back pain Active 056625632 Sep 24, 201 7 Entered By: GABRIELE CRUMP Comment: had lumbar spine surgery of some type in september 2015 (approx) GABRIELE CRUMP [facility] Peripheral vascular disease Active 259485584 ANTHONY SAMSON [facility] Post percutaneous transluminal coronary angioplasty Active 657323 000 Sep 24, 2016 Entered By: GABRIELE CRUMP Comment: 2015 GABRIELE CRUMP [facility] Carotid artery stenosis (SNOMED CT 84657435) Inactive 433.10 Nov 17, 2018 [facility] Cough (ICD-9-CM 786.2) Inactive 786.2 Nov 18, 2017 HAS BURAK RAMIREZ [facility] Dyslipidemia (ICD-9-CM 272.4) Inactive 272.4 Nov 18, 2017 BURAK YEUNG [facility] Essential Hypertension (ICD-9-CM 401.9) Inactive 401.9 Nov 18, 2017 BURAK YEUNG [facility] GERD * (ICD-9-CM 530.81) Inactive 530.81 Nov 18, 2017 H BURAK BRENNAN [facility] Impaired Fasting Glucose (ICD-9-CM 790.21) Inactive 790.21 Nov 18, 2017 BURAK YEUNG [facility] Kidney Stones (ICD-9-CM 592.0) Inactive 592.0 Nov 18, 2017 BURAK YEUNG [facility] NEED INOC./VARICELLA - Need for inoculation against va ricella (ICD-9-CM V05.4) Inactive V05.4 Nov 18, 2017 BURAK YEUNG [facility] Peripheral vascular disease (SNOMED CT 770974198) Inactive 443.9 Nov 17, 2018 BURAK YEUNG [facility] PROPHY VACC STREP PNEU&FLU Inactive V06.6 Nov 18, 2017 BURAK YEUNG [facility] PROPHY VACC. STREP PNEU Inactive V03.82 Nov 18, 2017 SENA BURAK DIAZ [facility] TETANUS TOXOID INOCULAT Inactive V03.7 Nov 18, 2017 BURAK SMART [facility] Tobacco Use Disorder * (ICD-9-CM 305.1) Inactive 305.1 Nov 18, 2017 ANJANABURAK RIVERA [facility] Radiology Reports: +/- 30 days of the encounter No Data Provided for This Section Pathology Reports: +/- 30 days of the encounter No Data Provided for This Section Encounter Notes: All associated encounter notes No Data Provided for This Section
--- OUTSIDE RECORDS SUMMARY | 2019-10-31 20:53 | XMS REPORT | Encounter Summary ---
Author Author [facility] Address [address] [place] [address] Phone Unavailable Care Team Providers Care Medical Claims Assistant Name Role Phone RAYMOND MAI PCP Unavailable [...] PART A August 23, 2012 PART A [id number] MARIOTATYANAPAULINA PATIENT MEDICARE (WNR) MEDICARE (M) PART B August 23, 2012 PART B [id number] [phone] PAULINA MARTIN PATIENT Selected Encounter This section includes the information on record at [place] for the Encounter. Date/Time Encounter Type Encounter Description Reason Provider Source Apr 09, 2019 05:16 PM Outpatient Encounter TELEPHONE PRIMARY CAR E ICD-10-CM I48.91 Unspecified atrial fibrillation with Provider Comments: AF- Atrial Fibrillation ([facility] [id number]) RODGER GAMINO [facility] IHE Encounter Template Text not used by [place] Assessments - Encounter Diagnoses This section includes the primary and secondary diag noses documented for the Encounter. Date/Time Primary/Secondary Diagnosis Diagnosis Name Provider Source Apr 09, 2019 05:16 PM PRIMARY Unspecified atrial fibrillation RODGER GAMINO [facility] Plan of Treatment: Future Appointments (+ [...] to adverse reactions to drug (disorder) Urticaria [facility], VISN 15 MEPERIDINE Nov 18, 2009 Propensity to adverse reactions to drug (disorder) Eruption [facility], VISN 15 SULFA DRUGS Nov 18, 2009 Propensity to adverse reactions to drug (disorder) Eruption [facility], VISN 15 Medications: VA dispensed (-15 months) and Non-VA Documented (Obtained Outside A) Section Date Range: 1) prescriptions processed by a [place] pharmacy in the last 15 m [facility], and 2) all medications recorded [...] TO PREVENT CLOGGING. 3 Nov 18, 2019 [id number] Nov 17, 019 [facility] AMLODIPINE BESYLATE 10MG TAB Active TAKE ONE TA BLET BY MOUTH EVERY MORNING FOR HEART/BLOOD PRESSURE DR FLOREZ 90 Feb 29, 2020 [id number] Sep 30, 020 [facility] AMYLASE 120,000UNIT/LIPASE 24,000UNIT/PROTEASE 76,000UNIT CA P,EC Discontinued TAKE 2 CAPSULES BY MOUTH THREE TIMES DAILY BEFORE MEALS FOR PANCREATIC ENZYME REPLACEMENT. TAKE WITH FOOD DIRECTED. DR FLOREZ, [facility] 270 Jan 22, 2019 [id number] Oct 31, 2018 [facility] AMYLASE 120,000UNIT/LIPASE 24,000UNIT/PROTEASE 76,000UNIT CA P,EC Discontinued TAKE 1 CAPSULE BY MOUTH ONCE A DAY NEEDED FOR PANCREATIC ENZYME REPLACEMENT. TAKE WITH FOOD DIRECTED. TAKE ONE TABLET BEFORE SNACKS DR FLOREZ [facility] FOR PANCREATIC ENZYME REPLACEMENT. TAKE WITH FOOD DIRECTED. TAKE ONE TABLET BEFORE SNACKS DR FLOREZ [facility] 180 Jan 22, 2019 [id number] Oct ANTHONY B[facility]INS AMYLASE 120,000UNIT/LIPASE 24,000UNIT/PROTEASE 76,000UNIT CA P,EC TAKE 1 CAPSULE BY MOUTH ONCE A DAY NEEDED FOR PANCREATIC ENZYME REPLACEMENT. TAKE WITH FOOD DIRECTED. TAKE ONE TABLET BEFORE SNACKS DR FLOREZ [facility] [employer] FOR PANCREATIC ENZYME REPLACEMENT. TAKE WITH FOOD DIRECTED. TAKE ONE TABLET BEFORE SNACKS DR FLOREZ [facility] 180 Feb 15, 2019 [id number] Dec ANTHONY B[facility]INS CLOPIDOGREL BISULFATE 75MG TAB Non-VA TAKE ONE TABLET BY MOUTH QOD Non-VA Documented by: BARBARA GAMEZ nted at: [facility]STIN MUÑOZ DABIGATRAN ETEXILATE 75MG CAP,ORAL Active TAKE ONE CAPSULE BY MOUTH TWO TIMES A DAY TO THIN BLOOD. DO NOT OPEN PACKAGE UNTIL READY FOR DOSE TO MAINTAIN STABILITY 180 Apr 04, 2020 [id number] Aug 13, 2019 ANTHONY B[facility]INS DOXAZOSIN MESYLATE 4MG TAB Non-VA TAKE ONE- HALF TABLET BY MOUTH AT BEDTIME Non-VA Docume nted by: GABRIELE CRUMP Docume nted at: [facility] ESCITALOPRAM OXALATE 20MG TAB Non-VA TAKE ONE-HALF TABLET BY MOUTH TWO TIMES A DAY Non-VA Documented by: NOAH ANDUJAR Docume nted at: RADHA ONEIL [facility] FUROSEMIDE 40MG TAB Active TAKE ONE TABLET BY M OUTH EVERY MORNING FOR FLUID RETENTION DR FLOREZ 90 Feb 29, 2020 [id number] September 06, 2019 AKI B[facility]INS FUROSEMIDE 40MG TAB Non- VA TAKE ONE TABLET BY MOUTH EVERY MORNING Non-VA Documented by: BARBARA GAMEZ nted at: [facility] MUÑOZ GABAPENTIN 100MG CAP Active: Susp TAKE TWO CAPSULES B Y MOUTH THREE TIMES A DAY DR FLOREZ 540 Feb 29, 2020 [id number] Dec 20, 2019 ANTHONY BLEVINS GABAPENTIN TAB [...] ONCE A DAY 30 Jun 21, 2020 [id number] Jul 14, 2019 [facility] LOSARTAN POTASSIUM 100MG TAB Discontinued TAKE ONE TABLET BY MOUTH ONCE A DAY Nov 18, 2019 [id number] May 22, 2019 [facility] [place] POTASSIUM 100MG TAB Discontinued TAKE ONE TABLET BY MOUTH ONCE A DAY September 09, 2019 [id number] Oct 16, 2018 ANTHONY BLEVINS MAGNESIUM OXIDE [...] DR FLOREZ 45 Feb 28, 2 020 [id number] September 20, 2019 ANTHONY BLEVINS OMEPRAZOLE 20MG CAP,EC Active TAKE 1 CAPSULE BY MOUTH EVERY MORNING TO LOWER STOMACH ACID. TAKE 30 MINUTES PRIOR TO FOOD. 90 Nov 18, 2019 [id number] September 06, 2019 ANTHONY BLEVINS OMEPRAZOLE 20MG CAP,EC Discontinued TAKE 1 CAPSULE BY MOUTH EVERY MORNING TO LOWER STOMACH ACID. TAKE 30 MINUTES PRIOR TO FOOD. 90 Nov 19, 2018 [id number] September 08, 2018 ANTHONY BLEVINS ONDANSETRON HCL 8MG TAB TAKE ONE-HALF TA BLET BY MOUTH EVERY 4 HOURS NEEDED FOR NAUSEA Dec 17, 2018 [id number] Nov 17, 2018 [facility] POTASSIUM CHLORIDE 20MEQ TAB,SA (DISPERSIBLE) Non-VA TAKE ONE-HALF TABLET BY MOUTH EVERY MORNING Non-VA Documented by: BARBARA GAMEZ nted at: K[facility]STIN POP ROPINIROLE HCL 0.5MG TAB Active TAKE ONE TABLET BY MOUT H AT BEDTIME DR FLOREZ 90 Feb 29, 2020 [id number] September 09, 2019 ANTHONY BLEVINS [facility] Problems (Conditions): All historical and current [...] Comm ent(s) Provider Source Abnormal vision Active [id number] Sep 24, 2 017 Entered By: GABRIELE CRUMP Comment: bifocals GABRIELE CRUMP [facility] AF- Atrial Fibrillation (SCT 47057280) Active 15316279 Mar 30, 2019 Entered By: ANTHONY BLEVINS Comment: Dr Florez 02/20/29 ANTHONY BLEVINS [facility] Benign hypertension Active 48656252 [facility] CAD - Coronary artery disease Active 55642477 GABRIELE JACKSON [facility] Chronic kidney disease stage 3 Active 404951379 GABRIELE CRUMP [facility] Chronic obstructive lung disease Active 17893954 ANTHONY BLEVINS [facility] Chronic pancreatitis Active [id number] Sergio BLEVINS RET [facility] Dyspnea on exertion Active 44562899 ROLDAN YEUNG [facility] Gastroesophageal reflux disease without esophagitis Active 44524664 5 [facility] History of fall Active 230071484 [facility] Impaired fasting glucose Active 639681227 [facility]ELE [facility] Low back pain Active 518533490 Sep 24, 201 7 Entered By: GABRIELE CRUMP Comment: had lumbar spine surgery of some type in september 2015 (approx) [facility]ELE CRUMP [facility] Peripheral vascular disease Active 299803067 BU ANTHONY CARLSON [facility] Post percutaneous transluminal coronary angioplasty Active 422820 000 Sep 24, 2016 Entered By: GABRIELE CRUMP Comment: x 2015 GABRIELE CRUMP [facility] Carotid artery stenosis (SNOMED CT 39051445) Inactive 433.10 Nov 17, 2018 ANJANA,ANJUM [facility] Cough (ICD-9-CM 786.2) Inactive 786.2 Nov 18, 2017 HAS BURAK RAMIREZ [facility] Dyslipidemia (ICD-9-CM 272.4) Inactive 272.4 Nov 18, 2017 BURAK YEUNG [facility] Essential Hypertension (ICD-9-CM 401.9) Inactive 401.9 Nov 18, 2017 ANJANABURAK RIVERA [facility] GERD * (ICD-9-CM 530.81) Inactive 530.81 Nov 18, 2017 H MIKABURAK [facility] Impaired Fasting Glucose (ICD-9-CM 790.21) Inactive 790.21 Nov 18, 2017 ANJANA,ANJUM [facility] Kidney Stones (ICD-9-CM 592.0) Inactive 592.0 Nov 18, 2017 ANJANA,BURAK [facility] NEED INOC./VARICELLA - Need for inoculation against va ricella (ICD-9-CM V05.4) Inactive V05.4 Nov 18, 2017 ANJANA,ANJUM [facility] Peripheral vascular disease (SNOMED CT 265809308) Inactive 443.9 Nov 17, 2018 BURAK YEUNG [facility] PROPHY VACC STREP PNEU&FLU Inactive V06.6 Nov 18, 2017 BURAK YEUNG [facility] PROPHY VACC. STREP PNEU Inactive V03.82 Nov 18, 2017 BURAK SMART [facility] TETANUS TOXOID INOCULAT Inactive V03.7 Nov 18, 2017 BURAK SMART [facility] Tobacco Use Disorder * (ICD-9-CM 305.1) Inactive 305.1 Nov 18, 2017 ANJANABURAK RIVERA [facility] Radiology Reports: +/- 30 days of the encounter No Data Provided for This Section Pathology Reports: +/- 30 days of the encounter No Data Provided for This Section Encounter Notes: All associated encounter notes This section contains the clinical notes associated to the Encounter. Date/Time Encounter Note(s) Provider Source Apr 09, 2019 05:16 PM PHARMACY EDUCATION NOTE: LOCAL TITLE: [facility]-ANTICOAG APIXABAN/DABIGATRAN/RIVAROXABAN STANDARD TITLE: PHARMACY EDUCATION NOTE DATE OF NOTE: APR 09, 2019@17:16 ENTRY DATE: APR 09, 2019@17:16:09 AUTHOR: RODGER GAMINO COSIGNER: URGENCY: STATUS: COMPLETED [facility]-ANTICOAG APIXABAN/DABIGATRAN/RIVAROXABAN Has ADDENDA was contacted for: Dabigatran Initial visit The following was discussed with the : Capsule identification Proper storage of medication Indication for therapy Anticipated duration of therapy Daily dose, including dosing changes Administration considerations as applicable Drug interactions Monitoring requirements Importance of medication adherence The management of missed doses or extra doses Risk and benefits of therapy Signs and symptoms of bleeding and thromboembolic events Non-bleeding adverse events Risks associated with falling and what to do in case of a fall How to obtain supply of medication Importance of notifying providers about DOAC therapy before procedures for appropriate hyacinth-procedural management Contact information for the PCP Additional information discussed: Three attempts made to contact regarding provision of Pradaxa in addition to above counseling points. Voicemails with clinic contact information left at each time. Deferring to Primary Care team for f/u regarding counseling for efficacy/safety of Pradaxa therapy. Co-signing team for awareness. Please schedule [facility] DOAC follow-up in 3 weeks to assess adherence and tolerance to Pradaxa. Transition of care back to primary care team: -Pharmacy has called for initial education. -[place] notified that any subsequent monitoring will be done by Primary Care Provider. -PCP will be alerted. It is recommended that patients prescribed chronic therapy with a direct oral anticoagulant (DOAC) be educated prior to receiving drug with follow-up at approximately 3 weeks, 3 months, and as needed thereafter. Follow-up care including monitoring for adherence, tolerance and reinforcing education. Factors which could influence DOAC drug selection, dosing, or need to stop new oral anticoagulants and convert to warfarin can include: -age -renal function -weight -liver disease. 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 It is recommended that these be monitored annually or more frequently in patients with increased bleeding risk, renal impairment (e.g., CrCl < 60 ml/min), or who are 75 years of age or older. For patients with a history of or suspicion for liver disease, liver function testing may be considered. /es/ E. Jenna Gamino, KRYSTIN, KATHLEEN, BRANDON Clinical Pharmacist Specialist Signed: 04/09/2019 17:18 Receipt Acknowledged By: * AWAITING SIGNATURE * BARBARA GAMEZ 04/10/2019 07:59 /es/ ANTHONY Rodriges APRN 04/10/2019 ADDENDUM STATUS: COMPLETED [place]'s returned call pertaining to switch from Eliquis to Pradaxa for cardioembolic stroke prophylaxis for AF. Discussed with that when he runs out of Eliquis, Pradaxa may be administerd when next dose of Eliquis is due. He currently uses a medication senior materials planner, but states that the squares are very large and that each individual blister of Pradaxa can be cut out and placed in senior materials planner to maintain integrity of medication. She states that she would prefer to do this rather than contact PCP and reassess whether alternative DOAC can be prescribed that would not require specialized storage. Time spent on phone call: 15 minutes PBM PharmD Pharmacotherapy Rem V11: PHARMACIST INTERVENTIONS: ANTICOAGULATION THERAPY Nonpharmacologic intervention made Care coordination Convert to preferred VA medication /es/ E. Jenna Gamino, KRYSTIN, KATHLEEN, BRANDON Clinical Pharmacist Specialist Signed: 04/10/2019 10:08 RODGER GAMINO [facility]
--- OUTSIDE RECORDS SUMMARY | 2019-10-31 20:53 | XMS REPORT | Encounter Summary ---
Author Author [facility] Address [address] [place] [address] Phone Unavailable Care Team Providers Care Gunite Mixer Name Role Phone RAYMOND MAI PCP Unavailable [...] PART A August 23, 2012 PART A [id number] MARIOTATYANAPAULINA PATIENT MEDICARE (WNR) MEDICARE (M) PART B August 23, 2012 PART B [id number] [phone] MARIOPAULINA PATIENT Selected Encounter This section includes the information on record at [place] for the Encounter. Date/Time Encounter Type Encounter Description Reason Provider Source Feb 28, 2019 12:11 PM Outpatient Encounter ADMIN PAT ACTIVTIES (MASNO NCT) [facility] I[facility] Encounter Template Text not [...] and tobacco- related health factors from the [place] facility where the Encounter took place. Current Smoking Status This section includes the most current smoking, or tobacco -related health factor, from the [facility] facility where the Encounter took place. 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 The data comes from the [place] facility where the Encounter took place. 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 [facility] Oct 19, 2018 08:40 AM VA-TOBACCO USE MED NO [facility] Oct 19, 2018 08:40 AM VA-TOBACCO USE WI 30 MIN OF WAKEUP P ARSONS [facility] Oct 19, 2018 08:40 AM VA-TOBACCO USER EVERY DAY [facility] Nov 17, 2017 09:05 AM CURRENT TOBACCO USER [facility] Nov 17, 2017 09:05 AM CURRENT TOBACCO USER (NOT READY TO KAILYN T) [facility] Nov 17, 2017 09:05 AM TOBACCO CESSATION REFERRAL DECLINED [facility] Nov 17, 2017 09:05 AM TOBACCO MEDS OFFERED BUT DECLINED PA [facility]S [facility] Nov 17, 2017 09:05 AM TOBACCO [...] the patient. The data comes from a [facility] treatment facilities. It does not list Allergies/ADRs that were removed or entered in error. Some allergies/ADRs may be reported in t he Immunization section. Allergen Event Date Event Type Reaction(s) Severity Source CODEINE Nov 18, 2009 Propensity to adverse reactions to drug (disorder) Eruption [facility] 15 DEMEROL HYDROCHLORIDE INJECTION 50 MG/ML Nov 18, 2009 Propensity to adverse reactions to drug (disorder) Urticaria [facility] 15 MEPERIDINE Nov 18, 2009 Propensity to adverse reactions to drug (disorder) Eruption [facility] 15 SULFA DRUGS Nov 18, 2009 Propensity to adverse reactions to drug (disorder) Eruption [facility] 15 Medications: VA dispensed (-15 months) and Non-VA Documented (Obtained Outside A) Section Date Range: 1) prescriptions processed by a VA pharmacy in the last 15 m [facility], and 2) all medications recorded [...] TO PREVENT CLOGGING. 3 Nov 18, 2019 [id number] Nov 17 019 [facility] AMLODIPINE BESYLATE 10MG TAB Active TAKE ONE TA BLET BY MOUTH EVERY MORNING FOR HEART/BLOOD PRESSURE DR FLOREZ 90 Feb 29, 2020 [id number] Sep 08, 2 020 ANTHONY BLEVINS AMYLASE 120,000UNIT/LIPASE 24,000UNIT/PROTEASE 76,000UNIT CA P,EC Discontinued TAKE 2 CAPSULES BY MOUTH THREE TIMES DAILY BEFORE MEALS FOR PANCREATIC ENZYME REPLACEMENT. TAKE WITH [facility]OD [facility] Jan 22, 2019 [id number] Oct 31, 2018 ANTHONY BLEVINS AMYLASE 120,000UNIT/LIPASE 24,000UNIT/PROTEASE 76,000UNIT CA P,EC Discontinued TAKE 1 CAPSULE BY MOUTH ONCE A DAY NEEDED FOR PANCREATIC ENZYME REPLACEMENT. TAKE WITH FOOD DIRECTED. TAKE ONE TABLET BEFORE SNACKS DR FLOREZ HISTORIOGRAPHER FOR PANCREATIC ENZYME REPLACEMENT. TAKE WITH FOOD DIRECTED. TAKE ONE TABLET BEFORE SNACKS DR FLOREZ HISTORIOGRAPHER 180 Jan 22, 2019 [id number] Oct ANTHONY BLEVINS AMYLASE 120,000UNIT/LIPASE 24,000UNIT/PROTEASE 76,000UNIT CA P,EC TAKE 1 CAPSULE BY MOUTH ONCE A DAY NEEDED FOR PANCREATIC ENZYME REPLACEMENT. TAKE WITH FOOD DIRECTED. TAKE ONE TABLET BEFORE SNACKS DR FLOREZ HISTORIOGRAPHER FOR PANCREATIC ENZYME REPLACEMENT. TAKE WITH FOOD DIRECTED. TAKE ONE TABLET BEFORE SNACKS DR FLOREZ HISTORIOGRAPHER 180 Feb 15, 2019 [id number] Dec ANTHONY BLEVINS CLOPIDOGREL BISULFATE 75MG TAB Non-VA TAKE ONE TABLET BY MOUTH QOD Non-VA Documented by: BARBARA GAMEZ nted at: KRISTIN MUÑOZ DABIGATRAN ETEXILATE 75MG CAP,ORAL Active TAKE ONE CAPSULE BY MOUTH TWO TIMES A DAY TO THIN BLOOD. DO NOT OPEN PACKAGE UNTIL READY FOR DOSE TO MAINTAIN STABILITY 180 Apr 04, 2020 [id number] Aug 13, 2019 ANTHONY BLEVINS DOXAZOSIN MESYLATE 4MG TAB Non-VA TAKE ONE- HALF TABLET BY MOUTH AT BEDTIME Non-VA Docume nted by: GABRIELE CRUMP nted at: [facility] ESCITALOPRAM OXALATE 20MG TAB Non-VA TAKE ONE-HALF TABLET BY MOUTH TWO TIMES A DAY Non-VA Documented by: NOAH ANDUJARume nted at: RADHA ONEIL [facility] FUROSEMIDE 40MG TAB Active TAKE ONE TABLET BY M OUTH EVERY MORNING FOR FLUID RETENTION DR FLOREZ 90 Feb 29, 2020 [id number] September 06, 2019 AKI BLEVINS FUROSEMIDE 40MG TAB Non- VA TAKE ONE TABLET BY MOUTH EVERY MORNING Non-VA Documented by: BARBARA GAMEZume nted at: [facility] GABAPENTIN 100MG CAP Active: Susp TAKE TWO CAPSULES B Y MOUTH THREE TIMES A DAY DR FLOREZ 540 Feb 29, 2020 [id number] Dec 20, 2019 ANTHONY BLEVINS GABAPENTIN TAB Non- VA TAKE 100 MG BY MOUTH THREE TIMES A DAY Non-VA Documented by: BARBARA GAMEZ Docume nted at: [facility]Z LORAZEPAM 0.5MG TAB Non- VA TAKE ONE TABLET BY MOUTH EVERY 8 HOURS NEEDED Non-VA Docume nted by: BARBARA AGMEZ Docume nted at: [facility] MUÑOZ LOSARTAN POTASSIUM 100MG TAB Active TAKE ONE TABLET BY MOUTH ONCE A DAY Jun 21, 2020 [id number] Jul 14, 2019 ANTHONY BLEVINS LOSARTAN POTASSIUM 100MG TAB Discontinued TAKE ONE TABLET BY MOUTH ONCE A DAY Nov 18, 2019 [id number] May 22, 2019 ANTHONY BLEVINS LOSARTAN POTASSIUM 100MG TAB Discontinued TAKE ONE TABLET BY MOUTH ONCE A DAY September 09, 2019 [id number] Oct 16, 2018 ANTHONY BLEVINS MAGNESIUM OXIDE [...] DR FLOREZ 45 Feb 28, 2 020 [id number] September 20, 2019 ANTHONY BLEVINS OMEPRAZOLE 20MG CAP,EC Active TAKE 1 CAPSULE BY MOUTH EVERY MORNING TO LOWER STOMACH ACID. TAKE 30 MINUTES PRIOR TO FOOD. 90 Nov 18, 2019 [id number] September 06, 2019 ANTHONY BLEVINS OMEPRAZOLE 20MG CAP,EC Discontinued TAKE 1 CAPSULE BY MOUTH EVERY MORNING TO LOWER STOMACH ACID. TAKE 30 MINUTES PRIOR TO FOOD. 90 Nov 19, 2018 [id number] September 08, 2018 ANTHONY BLEVINS ONDANSETRON HCL 8MG TAB TAKE ONE-HALF TA BLET BY MOUTH EVERY 4 HOURS NEEDED FOR NAUSEA Dec 17, 2018 [id number] Nov 17, 2018 ANTHONY BLEVINS P ARSONS TONI POTASSIUM CHLORIDE 20MEQ TAB,SA (DISPERSIBLE) Non-VA TAKE ONE-HALF TABLET BY MOUTH EVERY MORNING Non-VA Documented by: BARBARA GAMEZ nted at: KRISTIN MUÑOZ ROPINIROLE HCL 0.5MG TAB Active TAKE ONE TABLET BY MOUT H AT BEDTIME DR FLOREZ 90 Feb 29, 2020 [id number] September 09, 2019 ANTHONY BLEVINS Problems (Conditions): [...] Comm ent(s) Provider Source Abnormal vision Active [id number] Sep 24, 2 017 Entered By: GABRIELE CRUMP Comment: [facility]ELE [place] [facility] AF- Atrial Fibrillation (SCT 38803371) Active 25676416 Mar 30, 2019 Entered By: ANTHONY BLEVINS Comment: Dr Florez 02/20/29 [facility]LEVINS [facility] Benign hypertension Active 40741374 [facility]OLDAN YEUNG [facility] CAD - Coronary artery disease Active 56352819 GABRIELE JACKSON [facility] Chronic kidney disease stage 3 Active 280389904 GABRIELE CRUMP [facility] Chronic obstructive lung disease Active 84558027 AN[facility]Y [facility]LEVINS [facility] Chronic pancreatitis Active 913611849 [facility] Dyspnea on exertion Active 86418205 [facility]AN YEUNG [facility] Gastroesophageal reflux disease without esophagitis Active 36909005 5 [facility] YE[place] [facility] History of fall Active 462471973 [place] YE[place] [facility] Impaired fasting glucose Active 376910755 GABRIELE GLASS [facility] Low back pain Active 994068373 Sep 24 7 Entered By: GABRIELE CRUMP Comment: had lumbar spine surgery of some type in september 2015 (approx) GABRIELE CRUMP [facility] Peripheral vascular disease Active 507949664 ANTHONY CARLSON [facility] Post percutaneous transluminal coronary angioplasty Active 443101 000 Sep 24, 2016 Entered By: GABRIELE CRUMP Comment: 2015 [facility]RIELE CRUMP [facility] Carotid artery stenosis (SNOMED CT 57530670) Inactive 433.10 Nov 17, 2018 [place] YEUNG [facility] Cough (ICD-9-CM 786.2) Inactive 786.2 Nov 18, 2017 B[facility]AK HDEZ [facility] Dyslipidemia (ICD-9-CM 272.4) Inactive 272.4 Nov 18, 2017 ANJANA,ANJUM [facility] Essential Hypertension (ICD-9-CM 401.9) Inactive 401.9 Nov 18, 2017 B[place] YEUNG [facility] GERD * (ICD-9-CM 530.81) Inactive 530.81 Nov 18, 2017 H BURAK BRENNAN [facility] Impaired Fasting Glucose (ICD-9-CM 790.21) Inactive 790.21 Nov 18, 2017 ANJANA,ANJUM [facility] Kidney Stones (ICD-9-CM 592.0) Inactive 592.0 Nov 18, 2017 BUR[place] YEUNG [facility] NEED INOC./VARICELLA - Need for inoculation against va ricella (ICD-9-CM V05.4) Inactive V05.4 Nov 18, 2017 B[place] YEUNG [facility] Peripheral vascular disease (SNOMED CT 377430407) Inactive 443.9 Nov 17, 2018 [facility] PROPHY VACC STREP PNEU&FLU Inactive V06.6 Nov 18, 2017 [facility]UNG [facility] PROPHY VACC. STREP PNEU Inactive V03.82 Nov 18, 2017 [facility] SMART [facility] TETANUS TOXOID INOCULAT Inactive V03.7 Nov 18, 2017 SENA [facility] DIAZ [facility] Tobacco Use Disorder * (ICD-9-CM 305.1) Inactive 305.1 Nov 18, 2017 [facility] Rad[facility] Reports: +/- 30 days of the encounter No Data Provided for This Section Pathology Reports: +/- 30 days of the encounter No Data Provided for This Section Encounter Notes: All associated encounter notes This section contains the clinical notes associated to the Encounter. Date/Time Encounter Note(s) Provider Source Feb 28, 2019 12:11 PM ADMINISTRATIVE NOTE: LOCAL TITLE: [place]-ADMIN MSA STANDARD TITLE: ADMINISTRATIVE NOTE DATE OF NOTE: FEB 28, 2019@12:11 ENTRY DATE: FEB 28, 2019@12:11:47 AUTHOR: PITER KNIGHT EXP COSIGNER: URGENCY: STATUS: COMPLETED MSA Administrative Note: RECORDS RECEIVED TODAY by: Fax Nature of report:rx's gabapentin,ropinirole,amlodipine,furosemide,levalbuterol,metopro. Date(s) of record(s):02/28/2019 Sending constitution party:[facility] RHODA severino/ PITER FOSTER Signed: 02/28/2019 12:14 PITER KNIGHT [facility]
--- OUTSIDE RECORDS SUMMARY | 2019-10-31 20:54 | XMS REPORT | Encounter Summary ---
Author Author [facility] Address [address] [place] [address] Phone Unavailable Care Team Providers Care Medical Stenographer Name Role Phone RAYMOND MAI PCP Unavailable [...] PART A August 23, 2012 PART A [id number] MARTINPAULINA PATIENT MEDICARE (WNR) MEDICARE (M) PART B August 23, 2012 PART B [id number] MARIOPAULINA PATIENT Selected Encounter This section includes the information on record at [place] for the Encounter. Date/Time Encounter Type Encounter Description Reason Provider Source Nov 17, 2018 09:30 AM OFFICE/OUTPATIENT VISIT EST PRIMARY CARE/M EDICINE ICD-10-CM I10. Essential (primary) hypertension with Provider Comments: Benign hypertension ([facility] [id number]) ANTHONY BLEVINS [facility] IHE Encounter Template Text not used by VA Assessments - Encounter Diagnoses This section includes the primary and secondary diag noses documented for the Encounter. Date/Time Primary/Secondary Diagnosis Diagnosis Name Provider Source Nov 17, 2018 09:49 AM PRIMARY Essential (primary) hypert ension PITER KNIGHT [facility] Nov 17, 2018 09:49 AM SECONDARY Chronic obstructiv e pulmonary disease, unspecified PITER KNIGHT KRISTIN [facility] Nov 17, 2018 09:49 AM SECONDARY Other chronic pancreatitis PITER QUISPE Bharathi FOSTER [facility] Nov 17, 2018 09:49 AM SECONDARY Peripheral vascular diseas e, unspecified PITER KNIGHT KRISTIN [facility] Plan of Treatment: Future Appointments (+ [...] Comment Nov 17, 2018 09:37 AM FOSTER [facility] CBC & DIFF Specimen Type: BLOOD Comment: Possible EDTA-related platelet aggregation, suggest redraw in SODIUM CITRATE and EDTA tubes for an accurate platelet count. PLATELET COUNT:89 K/cmm SPECIMEN COLLECTED GREATER THAN 3 HOURS PRIOR TO PROCESSING. DEGENERATIVE CHANGES CANNOT BE EXCLUDED. MORPHOLOGIC FINDINGS SHOULD BE TREATED WITH RESERVE. PLATELET COUNT reported incorrectly as 89 by [[id number]]. Changed to comment on Nov 18, 2018@00:22 by [[id number]]. PLATELET COUNT flagged incorrectly as L by [[id number]]. Changed to normal on Nov 18, 2018@00:22 by [[id number]]. WBC 7.6 K/cmm 3.60-11.20 RBC 3.63 M/ul [...] % 11.8-15.1 Nov 17, 2018 09:37 AM FOSTER [facility] COMPREHENSIVE METABOLIC PA HERO Specimen [...] EGFR >60 Nov 17, 2018 09:37 AM ADOR LIPID PROFILE(HDL,TRIG,CHO L,LDL) Specimen Type: PLASMA Comment: For eGFR: eGFR results >60 are imprecise. Many variables affect the calculated result. Interpretation of eGFR results >60 must be monitored over time. CHOLESTEROL 139 mg/dL 0-200 TRIGS 135 mg/dL 0-150 HDL-CHOLESTEROL 39 mg/dL L >40 LDL (CALC) 73 mg/dL 0-99.9 Nov 17, 2018 09:37 AM ADOR PROSTATIC SPECIFIC ANTIGEN (TOTAL) Specimen Type: SERUM No comment entered. PROSTATIC SPECIFIC ANTIGEN(TOTAL) 0.7 ng/mL 0-4 Vital Signs: All taken on the encounter date This section contains inpatient and outpatient Vital Signs collected on the date of the Encounter. Date/Time Temperature Pulse Blood Pressure Respiratory Rate SP02 Pa in Height Weight Body Mass Index Source Nov 17, 2018 09:28 AM 97 F 62 /min 136/77 mm[Hg] 22 /min 100 % 0 72 in 185.7 lb 25 [facility] Nov 17, 2018 09:25 AM 0 FOSTER [facility] Immunizations: All administered on the encounter date No Data Provided for This Section Social History: Smoking Status (Most current) and Tobacco Use (All prior to enco unter date) This section includes the most current, and the historical, smoking and tobacco- related health factors from the [place] facility where the Encounter took place. Current Smoking Status This section includes the most current smoking, or tobacco -related health factor, from the [facility] facility where the Encounter took place. Date/Time Current Smoking Status Comment Facility Oct 19, 2018 08:40 AM VA-TOBACCO USE LEAD OPERATOR NO [facility] Tobacco Use History This section includes a history of the smoking, or tobacco -related health factors, that were collected on or before the date of the Encoun ter. The data comes from the [place] facility where the Encounter took place. Date/Time Smoking Status/Tobacco Use Comment [facility] Oct 19, 2018 08:40 AM VA-TOBACCO USE ADVICE FOSTER [facility] Oct 19, 2018 08:40 AM VA-TOBACCO USE LEAD OPERATOR NO [facility] Oct 19, 2018 08:40 AM VA-TOBACCO USE MED NO FOSTER [facility] Oct 19, 2018 08:40 AM VA-TOBACCO USE WI 30 MIN OF WAKEUP P ARSONS [facility] Oct 19, 2018 08:40 AM VA-TOBACCO USER EVERY DAY [facility] Nov 17, 2017 09:05 AM CURRENT TOBACCO USER FOSTER [facility] Nov 17, 2017 09:05 AM CURRENT TOBACCO USER (NOT READY TO KAILYN T) FOSTER [facility] Nov 17, 2017 09:05 AM TOBACCO CESSATION REFERRAL DECLINED FOSTER [facility] Nov 17, 2017 09:05 AM TOBACCO MEDS OFFERED BUT DECLINED PA RSONS [facility] Nov 17, 2017 09:05 AM TOBACCO USER OFFERED MEDS [facility] Advance Directives: All historical and current No Data Provided for This Section Allergies and Adverse Reactions (ADRs): All historical and current Section Date Range: From patient's date of to the date document was create d. This section includes Allergies and Adverse Reactions (ADR s) on record with VA for the patient. The data comes from a [facility] treatment facilities. It does not list Allergies/ADRs that were removed or entered in error. Some allergies/ADRs may be reported in t he Immunization section. Allergen Event Date Event Type Reaction(s) Severity Source CODEINE Nov 18, 2009 Propensity to adverse reactions to drug (disorder) Eruption [facility], VISN 15 DEMEROL HYDROCHLORIDE INJECTION 50 MG/ML Nov 18, 2009 Propensity to adverse reactions to drug (disorder) Urticaria [facility], VISN 15 MEPERIDINE Nov 18, 2009 Propensity to adverse reactions to drug (disorder) Eruption [facility], VISN 15 SULFA DRUGS Nov 18, 2009 Propensity to adverse reactions to drug (disorder) Eruption [facility], VISN 15 Medications: VA dispensed (-15 months) and Non-VA Documented (Obtained Outside A) Section Date Range: 1) prescriptions processed by a VA pharmacy in the last 15 m [facility], and 2) all medications recorded in the [place] medical record as "non-VA medic ations". Pharmacy terms refer to VA pharmacy's work on prescriptions. VA patient s are advised to take their medications as instructed by their health care team. The data comes from all [place] treatment facilities. Glossary of Pharmacy Terms:Active = A prescription that can be filled at the local [place] pharmacy.Active: On Hold = An active prescription that will not be filled until pharmacy resolves the issue.Active: Susp = An active prescription that is not scheduled to be filled yet.Clinic Order = A medication received during a visit to a [place] clinic or emergency department (currently not available).Discontinued [...] may be a prescription from either the [place] or other providers that was filled outside the [place]. Or, it may be an over the [...] TO PREVENT CLOGGING. 3 Nov 18, 2019 [id number] Nov 17 019 ANTHONY BLEVINS [facility] AMLODIPINE BESYLATE 10MG TAB Active TAKE ONE TA BLET BY MOUTH EVERY MORNING FOR HEART/BLOOD PRESSURE DR FLOREZ 90 Feb 29, 2020 [id number] Sep 08, 2 020 ANTHONY BLEVINS AMYLASE 120,000UNIT/LIPASE 24,000UNIT/PROTEASE 76,000UNIT CA P,EC Discontinued TAKE 2 CAPSULES BY MOUTH THREE TIMES DAILY BEFORE MEALS FOR PANCREATIC ENZYME REPLACEMENT. TAKE WITH FOOD DIRECTED. DR FLOREZ, [facility] 270 Jan 22, 2019 [id number] Oct 31, 2018 ANTHONY BLEVINS AMYLASE 120,000UNIT/LIPASE 24,000UNIT/PROTEASE 76,000UNIT CA P,EC Discontinued TAKE 1 CAPSULE BY MOUTH ONCE A DAY NEEDED FOR PANCREATIC ENZYME REPLACEMENT. TAKE WITH FOOD DIRECTED. TAKE ONE TABLET BEFORE SNACKS DR FLOREZ SHANK CUTTER FOR PANCREATIC ENZYME REPLACEMENT. TAKE WITH FOOD DIRECTED. TAKE ONE TABLET BEFORE SNACKS DR FLOREZ SHANK CUTTER 180 Jan 22, 2019 [id number] Oct ANTHONY BLEVINS AMYLASE 120,000UNIT/LIPASE 24,000UNIT/PROTEASE 76,000UNIT CA P,EC TAKE 1 CAPSULE BY MOUTH ONCE A DAY NEEDED FOR PANCREATIC ENZYME REPLACEMENT. TAKE WITH FOOD DIRECTED. TAKE ONE TABLET BEFORE SNACKS DR FLOREZ SHANK CUTTER FOR PANCREATIC ENZYME REPLACEMENT. TAKE WITH FOOD DIRECTED. TAKE ONE TABLET BEFORE SNACKS DR FLOREZ SHANK CUTTER 180 Feb 15, 2019 [id number] Dec ANTHONY BLEVINS CLOPIDOGREL BISULFATE 75MG TAB Non-VA TAKE ONE TABLET BY MOUTH QOD Non-VA Documented by: BARBARA GAMEZ nted at: [facility] MUÑOZ DABIGATRAN ETEXILATE 75MG CAP,ORAL Active TAKE ONE CAPSULE BY MOUTH TWO TIMES A DAY TO THIN BLOOD. DO NOT OPEN PACKAGE UNTIL READY FOR DOSE TO MAINTAIN STABILITY 180 Apr 04, 2020 [id number] Aug 13, 2019 ANTHONY BLEVINS DOXAZOSIN MESYLATE 4MG TAB Non-VA TAKE ONE- HALF TABLET BY MOUTH AT BEDTIME Non-VA Docume nted by: GABRIELE CRUMP nted at: [facility] ESCITALOPRAM OXALATE 20MG TAB Non-VA TAKE ONE-HALF TABLET BY MOUTH TWO TIMES A DAY Non-VA Documented by: NOAH ANDUJAR nted at: RADHA ONEIL [facility] FUROSEMIDE 40MG TAB Active TAKE ONE TABLET BY M OUTH EVERY MORNING FOR FLUID RETENTION DR FLOREZ 90 Feb 29, 2020 [id number] September 06, 2019 AKI BLEVINS FUROSEMIDE 40MG TAB Non- VA TAKE ONE TABLET BY MOUTH EVERY MORNING Non-VA Documented by: BARBARA GAMEZume nted at: [facility] GABAPENTIN 100MG CAP Active: Susp TAKE TWO CAPSULES B Y MOUTH THREE TIMES A DAY DR FLOREZ 540 Feb 29, 2020 [id number] Dec 20, 2019 ANTHONY BLEVINS CBELEN GABAPENTIN TAB Non- VA TAKE 100 MG BY MOUTH THREE TIMES A DAY Non-VA Documented by: BARBARA GAMEZ nted at: [facility] LORAZEPAM 0.5MG TAB Non- VA TAKE ONE TABLET BY MOUTH EVERY 8 HOURS NEEDED Non-VA Docume nted by: BARBARA GAMEZ Docume nted at: [facility] LOSARTAN POTASSIUM 100MG TAB Active TAKE ONE TABLET BY MOUTH ONCE A DAY Jun 21, 2020 [id number] Jul 14, 2019 ANTHONY BLEVINS LOSARTAN POTASSIUM 100MG TAB Discontinued TAKE ONE TABLET BY MOUTH ONCE A DAY Nov 18, 2019 [id number] May 22, 2019 ANTHONY BLEVINS LOSARTAN POTASSIUM 100MG TAB Discontinued TAKE ONE TABLET BY MOUTH ONCE A DAY September 09, 2019 [id number] Oct 16, 2018 ANTHONY BLEVINS MAGNESIUM OXIDE 400MG TAB Non-VA TAKE ONE TABLET BY MOUTH ONCE A DAY Non-VA Documented by: GABRIELE CRUMP Docume nted at: [facility] METOPROLOL SUCCINATE 200MG TAB, Active TAKE O NE-HALF TABLET BY MOUTH EVERY MORNING FOR HEART/BLOOD PRESSURE. SWALLOW WHOLE, DO NOT CRUSH OR CHEW (TABLETS MAY BE CUT IN HALF). DR FLOREZ FOR HEART/BLOOD PRESSURE. SWALLOW WHOLE, DO NOT CRUSH OR CHEW (TABLETS MAY BE CUT IN HALF). DR FLOREZ 45 Feb 29, 2020 [id number] September 20, 2019 ANTHONY BLEVINS OMEPRAZOLE 20MG CAP,EC Active TAKE 1 CAPSULE BY MOUTH EVERY MORNING TO LOWER STOMACH ACID. TAKE 30 MINUTES PRIOR TO FOOD. 90 Nov 18, 2019 [id number] September 06, 2019 ANTHONY BLEVINS OMEPRAZOLE 20MG CAP,EC Discontinued TAKE 1 CAPSULE BY MOUTH EVERY MORNING TO LOWER STOMACH ACID. TAKE 30 MINUTES PRIOR TO FOOD. 90 Nov 19, 2018 [id number] September 08, 2018 ANTHONY BLEVINS ONDANSETRON HCL 8MG TAB TAKE ONE-HALF TA BLET BY MOUTH EVERY 4 HOURS NEEDED FOR NAUSEA Dec 17, 2018 [id number] Nov 17, 2018 ANTHONY BLEVINS ARSORA MUÑOZ POTASSIUM CHLORIDE 20MEQ TAB,SA (DISPERSIBLE) Non-VA TAKE ONE-HALF TABLET BY MOUTH EVERY MORNING Non-VA Documented by: BARBARA GAMEZ nted at: [facility] MUÑOZ ROPINIROLE HCL 0.5MG TAB Active TAKE ONE TABLET BY MOUT H AT BEDTIME DR FLOREZ 90 Feb 29, 2020 [id number] September 09, 2019 ANTHONY BLEVINS Problems (Conditions): All historical and current Section Date Range: From patient's date of to the date document was create d. This section includes a list of Problems (Conditions) know n to VA for the patient. It includes both active and inacti ve problems (conditions). The data comes from all [place] treatment facilities. Problem Status Problem Code Date of Onset Date of Resolution Comm ent(s) Provider Source Abnormal vision Active [id number] Sep 24, 2 017 Entered By: GABRIELE CRUMP Comment: GABRIELE [place] [facility] AF- Atrial Fibrillation (SCT 63182529) Active [id number] Mar 30, 2019 Entered By: ANTHONY BLEVINS Comment: Dr Florez 02/20/29 [facility] Benign hypertension Active 53337448 [facility] YEUNG [facility] CAD - Coronary artery disease Active 10938902 [facility] Chronic kidney disease stage 3 Active 107030970 [facility] CRUMP [facility] Chronic obstructive lung disease Active 53974160 [facility]ONY BLEVINS [facility] Chronic pancreatitis Active [id number] Sergio BLEVINS [facility] Dyspnea on exertion Active 75036673 [facility] [facility] Gastroesophageal reflux disease without esophagitis Active 10812965 5 [place]JANA[place] R[place]A [facility] History of fall Active 191643015 [place] YE[place] [facility] Impaired fasting glucose Active 984464506 GABRIELE GLASS [facility] Low back pain Active [id number] Sep 24 7 Entered By: GABRIELE CRUMP Comment: had lumbar spine surgery of some type in september 2015 (approx) GABRIELE CRUMP [facility] Peripheral vascular disease Active 122702116 BU ANTHONY CARLSON [facility] Post percutaneous transluminal coronary angioplasty Active 456953 000 Sep 24, 2016 Entered By: GABRIELE CRUMP Comment: 2015 GABRIELE CRUMP [facility] Carotid artery stenosis (SNOMED CT 46864440) Inactive 433.10 Nov 17, 2018 [place] YEUNG [facility] Cough (ICD-9-CM 786.2) Inactive 786.2 Nov 18, 2017 HAS BURAK RAMIREZ [facility] Dyslipidemia (ICD-9-CM 272.4) Inactive 272.4 Nov 18, 2017 [place] YEUNG [facility] Essential Hypertension (ICD-9-CM 401.9) Inactive 401.9 Nov 18, 2017 [place] YEUNG [facility] GERD * (ICD-9-CM 530.81) Inactive 530.81 Nov 18, 2017 H B[place]AK BRENNAN [facility] Impaired Fasting Glucose (ICD-9-CM 790.21) Inactive 790.21 Nov 18, 2017 ANJANA,ANJUM [facility] Kidney Stones (ICD-9-CM 592.0) Inactive 592.0 Nov 18, 2017 B[place] YEUNG [facility] NEED INOC./VARICELLA - Need for inoculation against va ricella (ICD-9-CM V05.4) Inactive V05.4 Nov 18, 2017 B[place] YEUNG [facility] Peripheral vascular disease (SNOMED CT 227288931) Inactive 443.9 Nov 17, 2018 B[place] YEUNG [facility] PROPHY VACC STREP PNEU&FLU Inactive V06.6 Nov 18, 2017 ANJANA,ANJUM [facility] PROPHY VACC. STREP PNEU Inactive V03.82 Nov 18, 2017 [facility] TETANUS TOXOID INOCULAT Inactive V03.7 Nov 18, 2017 B[place] SMART [facility] Tobacco Use Disorder * (ICD-9-CM 305.1) Inactive 305.1 Nov 18, 2017 ANJANA,ANJUM [facility] Radiology Reports: +/- 30 days of the encounter No Data Provided for This Section Pathology Reports: +/- 30 days of the encounter No Data Provided for This Section Encounter Notes: All associated encounter notes This section contains the clinical notes associated to the Encounter. Date/Time Encounter Note(s) Provider Source Nov 17, 2018 09:49 AM MEDICATION MGT NOTE: LOCAL TITLE: WI-MEDICATION RECONCILIATION (BP,O) STANDARD TITLE: MEDICATION MGT NOTE DATE OF NOTE: NOV 17, 2018@09:49 ENTRY DATE: NOV 17, 2018@09:49:15 AUTHOR: ANTHONY BLEVINS EXP COSIGNER: URGENCY: STATUS: COMPLETED MEDICATION RECONCILIATION Allergies: DEMEROL HYDROCHLORIDE INJECTION 50 MG/ML, SULFA DRUGS, MEPERIDINE, CODEINE Allergies reviewed, edited in CPRS as appropriate and confirmed by patient: Yes Active Outpatient Medications (including Supplies): Outpatient Medications Status = 1) ALBUTEROL 90MCG (CFC-F) 200D ORAL INHL INHALE 2 PUFFS ACTIVE BY ORAL INHALATION FOUR TIMES A DAY FOR BREATHING. SHAKE WELL. RINSE MOUTHPIECE FREQUENTLY TO PREVENT CLOGGING. 2) ALBUTEROL 90MCG (CFC-F) 200D ORAL INHL INHALE 2 PUFFS PENDING BY ORAL INHALATION FOUR TIMES A DAY FOR BREATHING. SHAKE WELL. RINSE MOUTHPIECE FREQUENTLY TO PREVENT CLOGGING. 3) CREON 24,000UNIT EC CAP TAKE 2 CAPSULES BY MOUTH ACTIVE THREE TIMES DAILY BEFORE MEALS FOR PANCREATIC ENZYME REPLACEMENT. TAKE WITH FOOD DIRECTED. DR FLOREZ [facility] 4) CREON 24,000UNIT EC CAP TAKE 1 CAPSULE BY MOUTH ONCE ACTIVE A DAY NEEDED FOR PANCREATIC ENZYME REPLACEMENT. TAKE WITH FOOD DIRECTED. TAKE ONE TABLET BEFORE SNACKS DR FLOREZ SHANK CUTTER 5) CREON 24,000UNIT EC CAP TAKE 2 CAPSULES BY MOUTH PENDING THREE TIMES DAILY BEFORE MEALS FOR PANCREATIC ENZYME REPLACEMENT. TAKE WITH FOOD DIRECTED. DR FLOREZ [facility] 6) CREON 24,000UNIT EC CAP TAKE 1 CAPSULE BY MOUTH ONCE PENDING A DAY NEEDED FOR PANCREATIC ENZYME REPLACEMENT. TAKE WITH FOOD DIRECTED. TAKE ONE TABLET BEFORE SNACKS DR FLOREZ SHANK CUTTER 7) FUROSEMIDE 20MG TAB TAKE ONE TABLET BY MOUTH EVERY ACTIVE MORNING FOR FLUID RETENTION 8) LORATADINE 10MG TAB TAKE ONE TABLET BY MOUTH ONCE A ACTIVE DAY NEEDED FOR ALLERGIES 9) LOSARTAN 100MG TAB TAKE ONE TABLET BY MOUTH ONCE A ACTIVE DAY 10) LOSARTAN 100MG TAB TAKE ONE TABLET BY MOUTH ONCE A PENDING DAY 11) OMEPRAZOLE 20MG EC CAP TAKE ONE CAPSULE BY MOUTH ACTIVE EVERY MORNING TO LOWER STOMACH ACID. TAKE 30 MINUTES PRIOR TO FOOD. 12) OMEPRAZOLE 20MG EC CAP TAKE ONE CAPSULE BY MOUTH PENDING EVERY MORNING TO LOWER STOMACH ACID. TAKE 30 MINUTES PRIOR TO FOOD. Non-VA Medications Status = 1) Non-VA ASPIRIN 81MG EC TAB 81MG MOUTH ONCE A DAY ACTIVE 2) Non-VA DOXAZOSIN MESYLATE 4MG TAB 2MG MOUTH AT ACTIVE BEDTIME 3) Non-VA MAGNESIUM OXIDE 400MG TAB 400MG MOUTH ONCE A ACTIVE DAY 4) Non-VA METOPROLOL TARTRATE 100MG TAB 100MG MOUTH TWO ACTIVE TIMES A DAY 16 Total Medications Compared newly ordered medications and medication changes to active medications and non-VA medications, and then reviewed medications with patient and/or caregiver. All discrepancies noted and reconciled. Patients, or caregivers, was provided with reconciled medications list and advised to provide to all non VA providers. Potential adverse reactions of new medications were discussed with the patient. Patient/family/caregiver educated and evaluated for understanding on Medications. The list was reviewed with and given to the patient/family/caregiver who were also educated on importance of sharing medication list with all VA providers and non-VA providers. For questions, please call your team nurse. Pertinent lab reviewed: N/A. Level of Understanding: Unable to assess Comments: lab pending /xavier/ ANTHONY BLEVINS Signed: 11/17/2018 09:49 ANTHONY BLEVINS [facility] Nov 17, 2018 09:37 AM NURSE PRACTITIONER NOTE: LOCAL TITLE: WI-SENIOR IT SECURITY ANALYST/NURSE/CBOC STANDARD TITLE: NURSE PRACTITIONER NOTE DATE OF NOTE: NOV 17, 2018@09:37 ENTRY DATE: NOV 17, 2018@09:40:53 AUTHOR: ANTHONY BLEVINS EXP COSIGNER: URGENCY: STATUS: COMPLETED WI-SENIOR IT SECURITY ANALYST/NURSE/CBOC Has ADDENDA cc:Annual HPI:Chief concern is acquiring Zofran. He is prescribed it from Dr Florez's office contacted and spoke with nurse. He has active Rx for zofran, [facility]. He was diagnosed with pancreatitis. He has been to cardiology and pulmonology and is currently going to pulmonary rehab. He continues to smoke. His health has deteriorated significantly since last year. Past Medical/Surgical History: Computerized Problem List is the source for the followin. Benign hypertension 02/14/15 ANJANABURAK 2. Gastroesophageal reflux disease witho ut 02/14/15 B[place] YEUNG esophagitis 3. History of fall 02/14/15 ANJANABURAK 4. Dyspnea on exertion 02/14/15 [place]NABURAK 5. Post percutaneous transluminal hull ry 09/24/16 GABRIELE CRUMP angioplasty x 2, 2015 6. Low back pain 09/24/16 GABRIELE CRUMP had lumbar spine surgery of some type in september 2015 (approx) 7. Abnormal vision 09/24/16 GABRIELE CRUMP bifocals 8. CAD - Coronary artery disease 09/24/16 GABRIELE CRUMP 9. Chronic obstructive lung disease 11/18/17 ANTHONY BLEVINS 10. Chronic kidney disease stage 3 09/27/16 GABRIELE CRUMP 11. Impaired fasting glucose 09/27/16 GABRIELE CRUMP 12. Peripheral vascular disease 11/17/18 ANTHONY BLEVINS 13. Chronic pancreatitis 11/17/18 ANTHONY BLEVINS Preventative Services: Diabetes NA PSA:pending Lung Cancer: Colonoscopy: ROS: 10 point ROS neg x as noted above. Medication reviewed and updated as applicable. Active Outpatient Medications (including Supplies): Active Outpatient Medications Status 1) ALBUTEROL 90MCG (CFC-F) 200D ORAL I [place] INHALE 2 PUFFS ACTIVE BY ORAL INHALATION FOUR TIMES A DAY FOR BREATHING. SHAKE WELL. RINSE MOUTHPIECE FREQUENTLY TO PREVENT CLOGGING. 2) CREON 24,000UNIT EC CAP TAKE 2 CAPS ULES BY MOUTH ACTIVE THREE TIMES DAILY BEFORE MEALS FOR PANCREATIC ENZYME REPLACEMENT. TAKE WITH FOOD DIRECTED. DR FLOREZ, [facility] 3) CREON 24,000UNIT EC CAP TAKE 1 CAPS ULE BY MOUTH ONCE ACTIVE A DAY NEEDED FOR PANCREATIC ENZYME REPLACEMENT. TAKE WITH FOOD DIRECTED. TAKE ONE TABLET BEFORE SNACKS DR FLOREZ SHANK CUTTER 4) FUROSEMIDE 20MG TAB TAKE ONE TABLET BY MOUTH EVERY ACTIVE MORNING FOR FLUID RETENTION 5) LORATADINE 10MG TAB TAKE ONE TABLET BY MOUTH ONCE A ACTIVE DAY NEEDED FOR ALLERGIES 6) LOSARTAN 100MG TAB TAKE ONE TABLET BY MOUTH ONCE A ACTIVE DAY 7) OMEPRAZOLE 20MG EC CAP TAKE ONE CAP SHAR BY MOUTH ACTIVE EVERY MORNING TO LOWER STOMACH ACID. TAKE 30 MINUTES PRIOR TO FOOD. Pending Outpatient Medications Status 1) ALBUTEROL 90MCG (CFC-F) 200D ORAL I NHL INHALE 2 PUFFS PENDING BY ORAL INHALATION FOUR TIMES A DAY FOR BREATHING. SHAKE WELL. RINSE MOUTHPIECE FREQUENTLY TO PREVENT CLOGGING. 2) CREON 24,000UNIT EC CAP TAKE 2 CAPS ULES BY MOUTH PENDING THREE TIMES DAILY BEFORE MEALS FOR PANCREATIC ENZYME REPLACEMENT. TAKE WITH FOOD DIRECTED. DR FLOREZ, [facility] 3) CREON 24,000UNIT EC CAP TAKE 1 CAPS ULE BY MOUTH ONCE PENDING A DAY NEEDED FOR PANCREATIC ENZYME REPLACEMENT. TAKE WITH FOOD DIRECTED. TAKE ONE TABLET BEFORE SNACKS DR FLOREZ SHANK CUTTER 4) LOSARTAN 100MG TAB TAKE ONE TABLET BY MOUTH ONCE A PENDING DAY 5) OMEPRAZOLE 20MG EC CAP TAKE ONE CAP SHAR BY MOUTH PENDING EVERY MORNING TO LOWER STOMACH ACID. TAKE 30 MINUTES PRIOR TO FOOD. Active Non-VA Medications Status 1) Non-VA ASPIRIN 81MG EC TAB 81MG ADRIANO TH ONCE A DAY ACTIVE 2) Non-VA DOXAZOSIN MESYLATE 4MG TAB 2 MG MOUTH AT ACTIVE BEDTIME 3) Non-VA MAGNESIUM OXIDE 400MG TAB 40 0MG MOUTH ONCE A ACTIVE DAY 4) Non-VA METOPROLOL TARTRATE 100MG TA B 100MG MOUTH TWO ACTIVE TIMES A DAY 16 Total Medications Vital Signs 136/77 (11/17/2018 09:28) 62 ( 9 09:28) 97 F [36.1 C] (11/17/2018 09:28) 100 (Oct@09:28) Physical Exam Gen: alert, oriented x 3. NAD HEENT: PERRL. EOMI. tongue midline. TM normal. MM moist and pink. pharynx normal Neck: no JVD or TM. no LAD CV: RRR s murmur. PMI normal Resp: CTA bilat. no rales, rhonchi. Abd: S/NT/ND. BS x 4 quadrants Ext: no cyanosis, clubbing, pedal edema Neuro: CN II-XII grossly intact. no extremity weakness. sensation intact. Skin: warm, dry intact WI-RTC PROVIDER CLINIC: Return to Clinic. Lab:pending A/P 1. COPD 2. PVD 3. Pancreastitis 4. HTN 5. CAD lab pending, augusto ordered /xavier/ ANTHONY BLEVINS Signed: 11/17/2018 09:49 11/21/2018 ADDENDUM STATUS: COMPLETED Lab reviewed glucose 124, reduce sugar intake. /xavier/ ANTHONY BLEVINS Signed: 11/21/2018 07:53 Receipt Acknowledged By: 11/21/2018 09:50 /xavier/ ANTHONY PURI RN CBELEN Nov 17, 2018 09:24 AM NURSING OUTPATIENT NOTE: LOCAL TITLE: WI-NURSE/CBOC STANDARD TITLE: NURSING OUTPATIENT NOTE DATE OF NOTE: NOV 17, 2018@09:24 ENTRY DATE: NOV 17, 2018@09:24:03 AUTHOR: MELLISSA RODRÍGUEZ COSIGNER: URGENCY: STATUS: COMPLETED Reason for appointment: PCP Appointment Reason for appointment: Other: annual;increased nausea;needing refills on meds Is the patient diabetic? No - patient is not a diabetic What is your goal for today's visit? *Required Is there anything in your life that worries or stresses you that we may assist you with today? *Required No Are you registered for [employer] ([employer])? No - Are you interested in registering? No If 'yes' please hand [employer] brochure. Herpes Zoster (Shingles) Vaccine: The herpes zoster vaccine is unavailable for this visit. It will be offered at a later time. [place]-DIAG RESULT (PERSON OR PHONE): Results will be mailed or phoned to patient when available. VISN 15-INFLUENZA IMMUNIZATION : INFLUENZA IMMUNIZATION V1.0 Vaccine not given: Patient indicated influenza vaccination was received at another facility. Date: January, Exact date is unknown Location: Dr.carlson apolinar guerra [place]-PAIN: Pain Reassessment-Patient's updated pain score after intervention is: PAIN Score 0 Pain Documentation: Pain level 3 or less. [place]-FALL RISK OP: RESENDIZ FALL SCALE The Resendiz Fall scale was performed and score was 0. This is indicative of low risk of falls. History of falling in past 3 months? No Secondary diagnosis: No Ambulatory aid: None/bedrest/nurse assist Intravenous therapy/Heparin lock: No Gait/Transferring: Normal/bed rest/immobile Mental Status: Oriented to own ability/knows own limitations OTHER RISK FACTORS No history of falls and no secondary diagnosis. Patient risk for falling: Low Risk pamphlet given to patient/family Is patient at risk for falling? Patient is NOT at risk for falling Is the patient 75 years of age or older? No Depression Screening: PHQ-2+[id number] Depression Screening Score: 0 The score on this administration is 0, which indicates a negative screen on the Depression Scale over the past two weeks. Suicide Screening Score: 0 The results of this administration indicates a NEGATIVE primary screen for Risk of Suicide over the last 2 weeks. Over the past two weeks, how often have you been bothered by the following problems? 1. Little interest or pleasure in doing things Not at all 2. Feeling down, depressed, or hopeless Not at all 3. Thoughts that you would be better off or of hurting yourself in some way Not at all Tobacco Use Screening: The patient uses tobacco every day. The patient uses tobacco within 30 minutes of waking up. The patient has been smoking or using tobacco for thirty years or more. Patient was advised to quit smoking and/or using tobacco. Discussion with patient included: - Quitting smoking or tobacco use is one of the most important things you can do to protect and improve your health and [place] has the resources to support you. - Set a quit date when you are ready to quit. - Get support from your family and friends. - Review any past quit attempts- What helped? What didn't? - On the day you plan to quit, get rid of all cigarettes and tobacco products from your home, car or work. - Using a combination of behavioral counseling or other support strategies and FDA-approved cessation medications is the most effective way to ensure success in quitting. Patient was offered Behavioral Counseling and other support strategies to assist with quitting. Discussion with patient included: - Behavioral counseling or other support strategies greatly increases your chances of successfully quitting smoking or tobacco use by helping you develop a quit plan and providing support and other strategies to make behavioral changes to help you quit. - [facility] has a number of behavioral counseling options to help you with quitting, including: * Provide information about the facility smoking or tobacco use treatment options or clinics * [facility]'s national quitline, 5-491-VYJE-VET, with counseling available Tuesday-Tuesday The patient was not interested in receiving additional information about how to use the treatment options discussed. Patient was offered FDA-approved cessation medications. Discussion with patient included: - Medications for Nicotine replacement therapy such as the patch, gum or lozenge, and other medications such as varenicline or bupropion, can play an important role in the initial weeks and months after you quit smoking or tobacco use. - Medications help with cravings and withdrawal symptoms and they greatly increase your chances of successfully quitting. The patient was not interested in a prescription for tobacco cessation medications. Alcohol Use Screen (AUDIT-C): Alcohol Screen: SCREEN FOR ALCOHOL (AUDIT-C) An alcohol screening test (AUDIT-C) was POSITIVE (score=4). At this score level (3 or 4 for women, 4 for men), no additional action is required but brief alcohol counseling would be beneficial. 1. How often did you have a drink containing alcohol in the past year? Four or more times a week 2. How many drinks containing alcohol did you have on a typical day when you were drinking in the past year? 1 or 2 3. How often did you have six or more drinks on one occasion in the past year? Never /es/ MELLISSA RODRÍGUEZ LPN Signed: 11/17/2018 09:29 MELLISSA RODRÍGUEZ OC
--- OUTSIDE RECORDS SUMMARY | 2019-10-31 20:57 | XMS REPORT | Continuity of Care Document ---
Author Organization Unknown Address Unknown Phone Unavailable Allergies Active Description Code Type Severity Reaction Onset Reported/Identified Relationship to Patient Clinical Status Yes sulfa drugs NKMA N/A [id number] 12/07/2013 Yes No Known Drug Allergies [id number] Drug Allergy Unknown N/A 11/04/2015 Yes meperidine [id number] Drug Allerg y Unknown N/A 12/27/2018 Yes codeine [id number] Drug Allergy Mild GI UPSET 05/23/2019 Yes meperidine [id number] Drug Allerg y Unknown PATIENT TOLERAT 05/23/2019 Yes Sulfa (Sulfonamide Antibiotics) [id number] Drug Allergy Unknown N/A 020 Yes codeine [id number] Drug Allergy Mild GI UPSET, pt salgado 06/21/2019 Yes meperidine [id number] Drug Allerg y Mild N/V, PATIENT TO 06/21/2019 Yes Sulfa (Sulfonamide Antibiotics) [id number] 0491 Drug Allergy Mild HIVES 0 Medications There is no data. Problems Date Dx Coded Attending Type Code Diagnosis Diagnosed By 11/04/2015 BARNEY KINSEY DELIMBER OPERATOR Ot I25.10 ATHSCL HEART DISEASE OF [place] CORONARY 11/05/2015 BARNEY KINSEY DELIMBER OPERATOR Ot I25.10 ATHSCL HEART DISEASE OF [place] CORONARY 11/05/2015 BARNEY KINSEY DELIMBER OPERATOR Ot E78.5 HYPERLIPIDEMIA, UNSPECIFIED 11/05/2015 BARNEY KINSEY DELIMBER OPERATOR Ot I 10 ESSENTIAL (PRIMARY) HYPERTENSION 11/05/2015 BARNEY KINSEY DELIMBER OPERATOR Ot I25.10 ATHSCL HEART DISEASE OF [place] CORONARY 11/05/2015 BARNEY KINSEY DELIMBER OPERATOR Ot I51.7 CARDIOMEGALY 11/05/2015 BARNEY KINSEY DELIMBER OPERATOR Ot I73.9 PERIPHERAL VASCULAR DISEASE, UNSPECIFIED 11/05/2015 BARNEY KINSEY DELIMBER OPERATOR Ot I77.9 DISORDER OF ARTERIES AND ARTERIOLES, UNS 11/05/2015 BAIMA, BARNEY L DELIMBER OPERATOR Ot J43.9 EMPHYSEMA, UNSPECIFIED 11/05/2015 BAIMA, BARNEY L DELIMBER OPERATOR Ot R94.31 ABNORMAL ELECTROCARDIOGRAM [ECG] [EKG] 11/05/2015 BAIMA, BARNEY L DELIMBER OPERATOR Ot Z72.0 TOBACCO USE 12/09/2015 BAIMA, BARNEY L DELIMBER OPERATOR Ot E78.5 HYPERLIPIDEMIA, UNSPECIFIED 12/09/2015 BAIMA, BARNEY L DELIMBER OPERATOR Ot I 10 ESSENTIAL (PRIMARY) HYPERTENSION 12/09/2015 BAIMA, BARNEY L DELIMBER OPERATOR Ot I25.10 ATHSCL HEART DISEASE OF [place] CORONARY 12/09/2015 BAIMA, BARNEY L DELIMBER OPERATOR Ot I51.7 CARDIOMEGALY 12/09/2015 BAIMA, BARNEY L DELIMBER OPERATOR Ot I73.9 PERIPHERAL VASCULAR DISEASE, UNSPECIFIED 12/09/2015 BAIMA, BARNEY L DELIMBER OPERATOR Ot I77.9 DISORDER OF ARTERIES AND ARTERIOLES, UNS 12/09/2015 BAIMA, BARNEY L DELIMBER OPERATOR Ot J43.9 EMPHYSEMA, UNSPECIFIED 12/09/2015 BAIMA, BARNEY L DELIMBER OPERATOR Ot R94.31 ABNORMAL ELECTROCARDIOGRAM [ECG] [EKG] 12/09/2015 BAIMA, BARNEY L DELIMBER OPERATOR Ot Z72.0 TOBACCO USE 12/12/2015 BAIMA, BARNEY L DELIMBER OPERATOR Ot E78.5 HYPERLIPIDEMIA, UNSPECIFIED 12/12/2015 BAIMA, BARNEY L DELIMBER OPERATOR Ot I 10 ESSENTIAL (PRIMARY) HYPERTENSION 12/12/2015 BAIMA, BARNEY L DELIMBER OPERATOR Ot I25.10 ATHSCL HEART DISEASE OF [place] CORONARY 12/12/2015 BAIMA, BARNEY L DELIMBER OPERATOR Ot I51.7 CARDIOMEGALY 12/12/2015 BAIMA, BARNEY L DELIMBER OPERATOR Ot I73.9 PERIPHERAL VASCULAR DISEASE, UNSPECIFIED 12/12/2015 BAIMA, BARNEY L DELIMBER OPERATOR Ot I77.9 DISORDER OF ARTERIES AND ARTERIOLES, UNS 12/12/2015 BAIMA, BARNEY L DELIMBER OPERATOR Ot J43.9 EMPHYSEMA, UNSPECIFIED 12/12/2015 BAIMA, BARNEY L DELIMBER OPERATOR Ot R94.31 ABNORMAL ELECTROCARDIOGRAM [ECG] [EKG] 12/12/2015 BAIMA, BARNEY L DELIMBER OPERATOR Ot Z72.0 TOBACCO USE 05/10/2016 IJEOMA CULLEN FACC, ALI FACP CCDS Ot I50.31 ACUTE DIASTOLIC (CONGESTIVE) HEART FAILU 05/10/2016 IJEOMA CULLEN FACC, DAGO FACP CCDS Ot Z72.0 TOBACCO USE 05/10/2016 IJEOMA CULLEN FACC, DAGO FACP CCDS Ot I50.31 ACUTE DIASTOLIC (CONGESTIVE) HEART FAILU 05/10/2016 IJEOMA CULLEN FACC, ALI FACP CCDS Ot Z72.0 TOBACCO USE 05/11/2016 IJEOMA CULLEN FACC, DAGO FACP CCDS Ot I50.31 ACUTE DIASTOLIC (CONGESTIVE) HEART FAILU 05/11/2016 IJEOMA CULLEN FACC, DAGO FACP CCDS Ot Z72.0 TOBACCO USE 05/12/2016 BARNEY KINSEY DELIMBER OPERATOR Ot E78.5 HYPERLIPIDEMIA, UNSPECIFIED 05/12/2016 BARNEY KINSEY DELIMBER OPERATOR Ot I 10 ESSENTIAL (PRIMARY) HYPERTENSION 05/12/2016 BARNEY KINSEY DELIMBER OPERATOR Ot I25.10 ATHSCL HEART DISEASE OF [place] CORONARY 05/12/2016 BARNEY KINSEY DELIMBER OPERATOR Ot I51.7 CARDIOMEGALY 05/12/2016 BARNEY KINSEY DELIMBER OPERATOR Ot I73.9 PERIPHERAL VASCULAR DISEASE, UNSPECIFIED 05/12/2016 JOSESITO KINSEYHER Selina DELIMBER OPERATOR Ot I77.9 DISORDER OF ARTERIES AND ARTERIOLES, UNS 05/12/2016 BARNEY KINSEY DELIMBER OPERATOR Ot J43.9 EMPHYSEMA, UNSPECIFIED 05/12/2016 TIO BARNEY Selina DELIMBER OPERATOR Ot R94.31 ABNORMAL ELECTROCARDIOGRAM [ECG] [EKG] 05/12/2016 BARNEY KINSEY DELIMBER OPERATOR Ot Z72.0 TOBACCO USE 05/12/2016 IJEOMA CULLEN FACC, DAGO FACP CCDS Ot I50.31 ACUTE DIASTOLIC (CONGESTIVE) HEART FAILU 05/13/2016 IJEOMA CULLEN FACC, DAGO FACP CCDS Ot I11.0 HYPERTENSIVE HEART DISEASE WITH HEART FA 05/13/2016 IJEOMA CULLEN FACC, DAGO FACP CCDS Ot I50.31 ACUTE DIASTOLIC (CONGESTIVE) HEART FAILU 05/13/2016 IJEOMA CULLEN FACC, DAGO FACP CCDS Ot J43.8 OTHER EMPHYSEMA 05/13/2016 IJEOMA CULLEN FACC, DAGO FACP CCDS Ot Z72.0 TOBACCO USE 05/14/2016 IJEOMA CULLEN FACC, ALI FACP CCDS Ot I73.9 PERIPHERAL VASCULAR DISEASE, UNSPECIFIED 05/14/2016 IJEOMA CULLEN FACC, ALI FACP CCDS Ot I73.9 PERIPHERAL VASCULAR DISEASE, UNSPECIFIED 05/18/2016 IJEOMA CULLEN FACC, DAGO FACP CCDS Ot I11.0 HYPERTENSIVE HEART DISEASE WITH HEART FA 05/18/2016 IJEOMA CULLEN FACC, DAGO FACP CCDS Ot I50.31 ACUTE DIASTOLIC (CONGESTIVE) HEART FAILU 05/18/2016 IJEOMA CULLEN FACC, DAGO FACP CCDS Ot J43.8 OTHER EMPHYSEMA 05/18/2016 IJEOMA CULLEN FACC, DAGO FACP CCDS Ot Z72.0 TOBACCO USE 05/18/2016 IJEOMA CULLEN FACC, DAGO FACP CCDS Ot I50.31 ACUTE DIASTOLIC (CONGESTIVE) HEART FAILU 05/18/2016 IJEOMA CULLEN FACC, DAGO FACP CCDS Ot I73.9 PERIPHERAL VASCULAR DISEASE, UNSPECIFIED 05/19/2016 IJEOMA CULLEN FACC, ALI FACP CCDS Ot I25.10 ATHSCL HEART DISEASE OF [place] CORONARY 05/19/2016 IJEOMA CULLEN FACC, DAGO FACP CCDS Ot 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 [place]CIF[place] 05/19/2016 IJEOMA CULLEN FACC, DAGO FACP CCDS Ot I50.9 HEART FAILURE, UNSPECIFIED 05/19/2016 IJEOMA CULLEN FACC, DAGO FACP CCDS Ot I70.0 ATHEROSCLEROSIS OF [place] 05/19/2016 IJEOMA CULLEN FACC, DAGO FACP CCDS Ot J44.9 CHRONIC OBSTRUCTIVE PULMONARY DISEASE, U 05/19/2016 IJEOMA CULLEN FACC, DAGO FACP CCDS Ot Z72.0 TOBACCO USE 05/19/2016 IJEOMA CULLEN FACC, ALI FACP CCDS Ot Z79.899 OTHER SUPERVISOR CELLARS (CURRENT) DRUG THERAPY 05/19/2016 IJEOMA CULLEN FACC, ALI FACP CCDS Ot Z95.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 05/20/2016 IJEOMA CULLEN FACC, DAGO FACP CCDS Ot I73.9 PERIPHERAL VASCULAR DISEASE, UNSPECIFIED 05/26/2016 IJEOMA CULLEN FACC, DAGO FACP CCDS Ot I10 ESSENTIAL (PRIMARY) HYPERTENSION 05/26/2016 IJEOMA CULLEN FACC, DAGO FACP CCDS [...] FACP CCDS Ot Z72.0 TOBACCO USE 06/08/2016 BARNEY KINSEY DELIMBER OPERATOR Ot E83.42 HYPOMAGNESEMIA 06/08/2016 BARNEY KINSEY DELIMBER OPERATOR Ot E87.6 HYPOKALEMIA 06/08/2016 TANMAY MAI DO Ot G47. 9 SLEEP DISORDER, UNSPECIFIED 06/08/2016 TANMAY MAI DO Ot I50. 31 ACUTE DIASTOLIC (CONGESTIVE) HEART FAILU 06/08/2016 TANMAY MAI DO Ot J43. 8 OTHER EMPHYSEMA 06/08/2016 TANMAY MAI DO Ot R06. 83 SNORING 06/08/2016 TANMAY MAI DO Ot Z72. 0 TOBACCO USE 06/10/2016 IJEOMA CULLEN FACC, DAGO FACP CCDS Ot I11.0 HYPERTENSIVE HEART DISEASE WITH HEART FA 06/10/2016 IJEOMA CULLEN FACC, DAGO FACP CCDS Ot I50.31 ACUTE DIASTOLIC (CONGESTIVE) HEART FAILU 06/10/2016 IJEOMA CULLEN FACC, DAGO FACP CCDS Ot J43.8 OTHER EMPHYSEMA 06/10/2016 IJEOMA CULLEN FACC, ALI FACP CCDS Ot Z72.0 TOBACCO USE 06/15/2016 BARNEY KINSEY DELIMBER OPERATOR Ot E87.6 HYPOKALEMIA 06/15/2016 BARNEY KINSEY DELIMBER OPERATOR Ot I 10 ESSENTIAL (PRIMARY) HYPERTENSION 06/15/2016 IJEOMA CULLEN FACC, DAGO FACP CCDS Ot [...] FACP CCDS Ot Z72.0 TOBACCO USE 06/16/2016 BARNEY KINSEY DELIMBER OPERATOR Ot E83.42 HYPOMAGNESEMIA 06/16/2016 BARNEY KINSEY DELIMBER OPERATOR Ot E87.6 HYPOKALEMIA 06/17/2016 IJEOMA CULLEN FACC, [...] TOBACCO USE 06/24/2016 TANMAY MAI DO Ot G47. 30 SLEEP APNEA, UNSPECIFIED 06/24/2016 TANMAY MAI DO Ot G47. 50 PARASOMNIA, UNSPECIFIED 06/24/2016 TANMAY MAI DO Ot G47. 9 SLEEP DISORDER, UNSPECIFIED 06/25/2016 TANMAY MAI DO Ot G47. 10 HYPERSOMNIA, UNSPECIFIED 06/25/2016 TANMAY MAI DO Ot G47. 30 SLEEP APNEA, UNSPECIFIED 06/25/2016 TANMAY MAI DO Ot G47. 50 PARASOMNIA, UNSPECIFIED 06/25/2016 TANMAY MAI DO Ot G47. 9 SLEEP DISORDER, UNSPECIFIED 06/25/2016 TANMAY MAI DO Ot G47. 10 HYPERSOMNIA, UNSPECIFIED 06/25/2016 TANMAY MAI DO Ot G47. 30 SLEEP APNEA, UNSPECIFIED 06/25/2016 TANMAY MAI DO Ot G47. 50 PARASOMNIA, UNSPECIFIED 06/30/2016 TANMAY MAI DO Ot G47. 9 SLEEP DISORDER, UNSPECIFIED 06/30/2016 TANMAY MAI DO Ot I50. 31 ACUTE DIASTOLIC (CONGESTIVE) HEART FAILU 06/30/2016 TANMAY MAI DO Ot J43. 8 OTHER EMPHYSEMA 06/30/2016 TANMAY MAI DO Ot R06. 83 SNORING 06/30/2016 TANMAY MAI DO Ot Z72. 0 TOBACCO USE 06/30/2016 BARNEY KINSEY DELIMBER OPERATOR Ot E83.42 HYPOMAGNESEMIA 06/30/2016 BARNEY KINSEY DELIMBER OPERATOR Ot E87.6 HYPOKALEMIA 07/02/2016 TANMAY MAI DO Ot G47. 9 SLEEP DISORDER, UNSPECIFIED 07/02/2016 TANMAY MAI DO Ot I50. 31 ACUTE DIASTOLIC (CONGESTIVE) HEART FAILU 07/02/2016 TANMAY MAI DO Ot J43. 8 OTHER EMPHYSEMA 07/02/2016 TANMAY MAI DO Ot R06. 83 SNORING 07/02/2016 TANMAY MAI DO Ot Z72. 0 TOBACCO USE 08/11/2016 IJEOMA CULLEN FACC, DAGO FACP CCDS Ot E78.4 OTHER HYPERLIPIDEMIA 08/11/2016 IJEOMA CULLEN FACC, DAGO FACP CCDS Ot I12.9 HYPERTENSIVE CHRONIC KIDNEY DISEASE W ST 08/11/2016 IJEOMA CULLEN FACC, DAGO FACP CCDS Ot I25.10 ATHSCL HEART DISEASE OF [place] CORONARY 08/11/2016 IJEOMA CULLEN FAC, ALI FACP CCDS Ot I65.23 OCCLUSION AND STENOSIS OF [place] 08/11/2016 IJEOMA CULLEN FACC, ALI FACP CCDS Ot I73.89 OTHER SPECIFIED PERIPHERAL VASCULAR DISE 08/11/2016 IJEOMA CULLEN FACAlan, ALI FACP CCDS Ot N18.3 CHRONIC KIDNEY DISEASE, STAGE 3 (MODERAT 08/11/2016 IJEOMA CULLEN FACC, ALI FACP CCDS Ot Z72.0 TOBACCO USE 09/07/2016 IJEOMA CULLEN FACC, ALI FACP CCDS Ot E78.4 OTHER HYPERLIPIDEMIA 09/07/2016 IJEOMA CULLEN FAC, ALI FACP CCDS Ot I12.9 HYPERTENSIVE CHRONIC KIDNEY DISEASE W ST 09/07/2016 IJEOMA CULLEN FAC, ALI FACP CCDS Ot I25.10 ATHSCL HEART DISEASE OF [place] CORONARY 09/07/2016 IJEOMA CULLEN [facility], ALI FACP CCDS Ot I65.23 OCCLUSION AND STENOSIS OF [place] 09/07/2016 IJEOMA CULLEN [facility], ALI FACP CCDS Ot I73.89 OTHER SPECIFIED PERIPHERAL VASCULAR DISE 09/07/2016 IJEOMA CULLEN [facility], ALI FACP CCDS Ot N18.3 CHRONIC KIDNEY DISEASE, STAGE 3 (MODERAT 09/07/2016 IJEOMA SANCHEZ, ALI FACP CCDS Ot Z72.0 TOBACCO USE 12/16/2016 SRIKANTH PETERSON APRN Ot R91.1 SOLITARY PULMONARY NODULE 12/19/2016 BARNEY KINSEY DELIMBER OPERATOR Ot I12.9 HYPERTENSIVE CHRONIC KIDNEY DISEASE W ST 12/19/2016 BARNEY KINSEY DELIMBER OPERATOR Ot I25.10 ATHSCL HEART DISEASE OF [place] CORONARY 12/19/2016 BARNEY KINSEY DELIMBER OPERATOR Ot I65.23 OCCLUSION AND STENOSIS OF [place] 12/19/2016 BARNEY KINSEY DELIMBER OPERATOR Ot I73.89 OTHER SPECIFIED PERIPHERAL VASCULAR DISE 12/19/2016 BARNEY KINSEY DELIMBER OPERATOR Ot M79.89 OTHER SPECIFIED SOFT TISSUE DISORDERS 12/19/2016 BARNEY KINSEY DELIMBER OPERATOR Ot N18.3 CHRONIC KIDNEY DISEASE, STAGE 3 (MODERAT 01/04/2017 BARNEY KINSEY DELIMBER OPERATOR Ot I12.9 HYPERTENSIVE CHRONIC KIDNEY DISEASE W ST 01/04/2017 BARNEY KINSEY DELIMBER OPERATOR Ot I25.10 ATHSCL HEART DISEASE OF [place] CORONARY 01/04/2017 BARNEY KINSEY DELIMBER OPERATOR Ot I65.23 OCCLUSION AND STENOSIS OF [place] 01/04/2017 BARNEY KINSEY DELIMBER OPERATOR Ot I73.89 OTHER SPECIFIED PERIPHERAL VASCULAR DISE 01/04/2017 BARNEY KINSEY DELIMBER OPERATOR Ot M79.89 OTHER SPECIFIED SOFT TISSUE DISORDERS 01/04/2017 BARNEY KINSEY DELIMBER OPERATOR Ot N18.3 CHRONIC KIDNEY DISEASE, STAGE 3 (MODERAT 01/06/2017 SRIKANTH PETERSON DELIMBER OPERATOR Ot R91.1 SOLITARY PULMONARY NODULE 01/10/2017 SRIKANTH PETERSON APRN Ot R91.1 SOLITARY PULMONARY NODULE 06/13/2017 BARNEY KINSEY DELIMBER OPERATOR Ot E78.5 HYPERLIPIDEMIA, UNSPECIFIED 06/13/2017 BARNEY KINSEY DELIMBER OPERATOR Ot I 10 ESSENTIAL (PRIMARY) HYPERTENSION 06/13/2017 BARNEY KINSEY DELIMBER OPERATOR Ot I25.10 ATHSCL HEART DISEASE OF [place] CORONARY 06/13/2017 BARNEY KINSEY DELIMBER OPERATOR Ot I51.7 CARDIOMEGALY 06/13/2017 ARJUNBARNEY BROWN DELIMBER OPERATOR Ot I73.9 PERIPHERAL VASCULAR DISEASE, UNSPECIFIED 06/13/2017 BARNEY KINSEY DELIMBER OPERATOR Ot I77.9 DISORDER OF ARTERIES AND ARTERIOLES, UNS 06/13/2017 BARNEY KINSEY DELIMBER OPERATOR Ot J43.9 EMPHYSEMA, UNSPECIFIED 06/13/2017 BARNEY KINSEY DELIMBER OPERATOR Ot R94.31 ABNORMAL ELECTROCARDIOGRAM [ECG] [EKG] 06/13/2017 TIO BARNEY Marks DELIMBER OPERATOR Ot Z72.0 TOBACCO USE 06/13/2017 IJEOMA CULLEN FACC, DAGO SANCHEZP CCDS Ot I11.0 HYPERTENSIVE HEART DISEASE WITH HEART FA 06/13/2017 IJEOMA CULLEN FACC, DAGO SANCHEZP CCDS Ot I50.31 ACUTE DIASTOLIC (CONGESTIVE) HEART FAILU 06/13/2017 DAGO RAPHAEL MD, FACC FACP CCDS Ot J43.8 OTHER EMPHYSEMA 06/13/2017 DAGO RAPHAEL MD, FACC FACP CCDS Ot Z72.0 TOBACCO USE 06/13/2017 DAGO RAPHAEL MD, FACC FACP CCDS Ot I11.0 HYPERTENSIVE HEART DISEASE [...] ESSENTIAL (PRIMARY) HYPERTENSION 06/13/2017 IJEOMA CULLEN FACC, ALI FACP CCDS Ot I50.31 ACUTE DIASTOLIC (CONGESTIVE) HEART FAILU 06/13/2017 IJEOMA CULLEN FACC, ALI FACP CCDS Ot I73.9 PERIPHERAL VASCULAR DISEASE, UNSPECIFIED 06/13/2017 IJEOMA CULLEN FACC, ALI FACP CCDS Ot J43.8 OTHER EMPHYSEMA 06/13/2017 IJEOMA CULLEN FACC, ALI FACP CCDS Ot Z72.0 TOBACCO USE 06/13/2017 ARJUNMAJOSESITOBARNEY L DELIMBER OPERATOR Ot E87.6 HYPOKALEMIA 06/13/2017 TIO BARNEY L DELIMBER OPERATOR Ot I 10 ESSENTIAL (PRIMARY) HYPERTENSION 06/13/2017 ARJUNMAJOSESITOBARNEY L DELIMBER OPERATOR Ot E83.42 HYPOMAGNESEMIA 06/13/2017 ARJUNMAJOSESITOBARNEY L DELIMBER OPERATOR Ot E87.6 HYPOKALEMIA 06/13/2017 TANMAY MAI DO Ot G47. 9 SLEEP DISORDER, UNSPECIFIED 06/13/2017 TANMAY MAI DO Ot I50. 31 ACUTE DIASTOLIC (CONGESTIVE) HEART FAILU 06/13/2017 TANMAY MAI DO Ot J43. 8 OTHER EMPHYSEMA 06/13/2017 TANMAY MAI DO Ot R06. 83 SNORING 06/13/2017 TANMAY MAI DO Ot Z72. 0 TOBACCO USE 06/13/2017 ARJUNMAJOSESITOBARNEY L DELIMBER OPERATOR Ot E83.42 HYPOMAGNESEMIA 06/13/2017 JOSESITO KINSEYHER L DELIMBER OPERATOR Ot E87.6 HYPOKALEMIA 06/13/2017 IJEOMA CULLEN FACC, ALI FACP CCDS Ot E78.4 OTHER HYPERLIPIDEMIA 06/13/2017 IJEOMA CULLEN FACC, ALI FACP CCDS Ot I12.9 HYPERTENSIVE CHRONIC KIDNEY DISEASE W ST 06/13/2017 IJEOMA CULLEN FACC, ALI FACP CCDS Ot I25.10 ATHSCL HEART DISEASE OF [place] CORONARY 06/13/2017 IJEOMA CULLEN FACC, ALI FACP CCDS Ot I65.23 OCCLUSION AND STENOSIS OF [place]ILATERAL [place] 06/13/2017 IJEOMA CULLEN FACC, ALI FACP CCDS Ot I73.89 OTHER SPECIFIED PERIPHERAL VASCULAR DISE 06/13/2017 IJEOMA CULLEN FACC, ALI FACP CCDS Ot N18.3 CHRONIC KIDNEY DISEASE, STAGE 3 (MODERAT 06/13/2017 IJEOMA CULLEN FACC, ALI FACP CCDS Ot Z72.0 TOBACCO USE 06/13/2017 SRIKANTH PETERSON DELIMBER OPERATOR Ot R91.1 SOLITARY PULMONARY NODULE 06/13/2017 BARNEY KINSEY L DELIMBER OPERATOR Ot I12.9 HYPERTENSIVE CHRONIC KIDNEY DISEASE W ST 06/13/2017 BAIMA BARNEY L DELIMBER OPERATOR Ot I25.10 ATHSCL HEART DISEASE OF [place] CORONARY 06/13/2017 ARJUNMA BARNEY L DELIMBER OPERATOR Ot I65.23 OCCLUSION AND STENOSIS OF [place]ILATERAL [place] 06/13/2017 ARJUNMA BARNEY L DELIMBER OPERATOR Ot I73.89 OTHER SPECIFIED PERIPHERAL VASCULAR DISE 06/13/2017 ARJUNMA BARNEY L DELIMBER OPERATOR Ot M79.89 OTHER SPECIFIED SOFT TISSUE DISORDERS 06/13/2017 JOSESITO KINSEYHER L DELIMBER OPERATOR Ot N18.3 CHRONIC KIDNEY DISEASE, STAGE 3 (MODERAT 06/15/2017 SRIKANTH PETERSON E DELIMBER OPERATOR Ot G47.33 OBSTRUCTIVE SLEEP APNEA (ADULT) (PEDIATR 06/15/2017 MAYURI PETERSONINE E DELIMBER OPERATOR Ot J44.9 CHRONIC OBSTRUCTIVE PULMONARY DISEASE, U 06/15/2017 MAYURI PETERSONINE E DELIMBER OPERATOR Ot R91.1 SOLITARY PULMONARY NODULE 06/15/2017 SRIKANTH PETERSON DELIMBER OPERATOR Ot Z72.0 TOBACCO USE 06/29/2017 SRIKANTH PETERSON E DELIMBER OPERATOR Ot G47.33 OBSTRUCTIVE SLEEP APNEA (ADULT) (PEDIATR 06/29/2017 MAYURI PETERSONINE E DELIMBER OPERATOR Ot J44.9 CHRONIC OBSTRUCTIVE PULMONARY DISEASE, U 06/29/2017 MAYURI PETERSONINE E DELIMBER OPERATOR Ot R91.1 SOLITARY PULMONARY NODULE 06/29/2017 SRIKANTH PETERSON DELIMBER OPERATOR Ot Z72.0 TOBACCO USE 12/12/2017 BARNEY KINSEY DELIMBER OPERATOR Ot E78.5 HYPERLIPIDEMIA, UNSPECIFIED 12/12/2017 BARNEY KINSEY DELIMBER OPERATOR Ot I 10 ESSENTIAL (PRIMARY) HYPERTENSION 12/12/2017 BARNEY KINSEY DELIMBER OPERATOR Ot I25.10 ATHSCL HEART DISEASE OF [place] CORONARY 12/12/2017 BARNEY KINSEY DELIMBER OPERATOR Ot I51.7 CARDIOMEGALY 12/12/2017 BARNEY KINSEY DELIMBER OPERATOR Ot I73.9 PERIPHERAL VASCULAR DISEASE, UNSPECIFIED 12/12/2017 BARNEY KINSEY DELIMBER OPERATOR Ot I77.9 DISORDER OF ARTERIES AND ARTERIOLES, UNS 12/12/2017 BARNEY KINSEY DELIMBER OPERATOR Ot J43.9 EMPHYSEMA, UNSPECIFIED 12/12/2017 BARNEY KINSEY DELIMBER OPERATOR Ot R94.31 ABNORMAL ELECTROCARDIOGRAM [ECG] [EKG] 12/12/2017 BARNEY KINSEY DELIMBER OPERATOR Ot Z72.0 TOBACCO USE 12/12/2017 IJEOMA CULLEN [...] VASCULAR DISEASE, UNSPECIFIED 12/12/2017 IJEOMA CULLEN FACC, DAGO FACP CCDS Ot J43.8 OTHER EMPHYSEMA 12/12/2017 IJEOMA CULLEN FACC, ADGO FACP CCDS Ot Z72.0 TOBACCO USE 12/12/2017 BAIKEVINBARNEY L DELIMBER OPERATOR Ot E87.6 HYPOKALEMIA 12/12/2017 BAIKEVIN BARNEY L DELIMBER OPERATOR Ot I 10 ESSENTIAL (PRIMARY) HYPERTENSION 12/12/2017 BAIKEVIN BARNEY L DELIMBER OPERATOR Ot E83.42 HYPOMAGNESEMIA 12/12/2017 BAIMA BARNEY L DELIMBER OPERATOR Ot E87.6 HYPOKALEMIA 12/12/2017 TANMAY MAI DO Ot G47. 9 SLEEP DISORDER, UNSPECIFIED 12/12/2017 TANMAY MAI DO Ot I50. 31 ACUTE DIASTOLIC (CONGESTIVE) HEART FAILU 12/12/2017 TANMAY MAI DO Ot J43. 8 OTHER EMPHYSEMA 12/12/2017 TANMAY MAI DO Ot R06. 83 SNORING 12/12/2017 TANMAY MAI DO Ot Z72. 0 TOBACCO USE 12/12/2017 TIO BARNEY L DELIMBER OPERATOR Ot E83.42 HYPOMAGNESEMIA 12/12/2017 TIO BARNEY L DELIMBER OPERATOR Ot E87.6 HYPOKALEMIA 12/12/2017 IJEOMA CULLEN FACC, DAGO FACP CCDS Ot E78.4 OTHER HYPERLIPIDEMIA 12/12/2017 IJEOMA CULLEN FACC, DAGO FACP CCDS Ot I12.9 HYPERTENSIVE CHRONIC KIDNEY DISEASE W ST 12/12/2017 IJEOMA CULLEN FACC, DAGO FACP CCDS Ot I25.10 ATHSCL HEART DISEASE OF [place] CORONARY 12/12/2017 IJEOMA CULLEN FACC, ALI FACP CCDS Ot I65.23 OCCLUSION AND STENOSIS OF BILATERAL [place] 12/12/2017 IJEOMA CULLEN FACC, ALI FACP CCDS Ot I73.89 OTHER SPECIFIED PERIPHERAL VASCULAR DISE 12/12/2017 IJEOMA CULLEN FACC, ALI FACP CCDS Ot N18.3 CHRONIC KIDNEY DISEASE, STAGE 3 (MODERAT 12/12/2017 IJEOMA CULLEN FACC, DAGO FACP CCDS Ot Z72.0 TOBACCO USE 12/12/2017 SRIKANTH PETERSON APRN Ot R91.1 SOLITARY PULMONARY NODULE 12/12/2017 ARJUNBARNEY BROWN Selina DELIMBER OPERATOR Ot I12.9 HYPERTENSIVE CHRONIC KIDNEY DISEASE W ST 12/12/2017 TIOBARNEY DELIMBER OPERATOR Ot I25.10 ATHSCL HEART DISEASE OF [place] CORONARY 12/12/2017 BARNEY KINSEY DELIMBER OPERATOR Ot I65.23 OCCLUSION AND STENOSIS OF BILATERAL [place] 12/12/2017 ARJUNBARNEY BROWN DELIMBER OPERATOR Ot I73.89 OTHER SPECIFIED PERIPHERAL VASCULAR DISE 12/12/2017 ARJUNKEVIN BARNEY Selina DELIMBER OPERATOR Ot M79.89 OTHER SPECIFIED SOFT TISSUE DISORDERS 12/12/2017 ARJUNBARNEY BROWN DELIMBER OPERATOR Ot N18.3 CHRONIC KIDNEY DISEASE, STAGE 3 (MODERAT 12/12/2017 SRIKANTH PETERSON APRN Ot G47.33 OBSTRUCTIVE SLEEP APNEA (ADULT) (PEDIATR 12/12/2017 SRIKANTH PETERSON APRN Ot J44.9 CHRONIC OBSTRUCTIVE PULMONARY DISEASE, U 12/12/2017 SRIKANTH PETERSON APRN Ot R91.1 SOLITARY PULMONARY NODULE 12/12/2017 SRIKANTH PETERSON APRN Ot Z72.0 TOBACCO USE 12/14/2017 TANMAY MAI DO Ot G47. 33 OBSTRUCTIVE SLEEP APNEA (ADULT) (PEDIATR 12/14/2017 TANMAY MAI DO Ot I50. 31 ACUTE DIASTOLIC (CONGESTIVE) HEART FAILU 12/14/2017 TANMAY MAI DO Ot J44. 9 CHRONIC OBSTRUCTIVE PULMONARY DISEASE, U 12/14/2017 TANMAY MAI DO Ot J90 PLEURAL EFFUSION, NOT ELSEWHERE CLASSIFI 12/14/2017 TANMAY MAI DO Ot R91. 8 OTHER NONSPECIFIC ABNORMAL FINDING OF QUIQUE 12/14/2017 TANMAY MAI DO Ot Z72. 0 TOBACCO USE 12/22/2017 ELMER FLOREZ MD Ot K57. 30 DVRTCLOS OF LG INT W/O PERFORATION OR AB 12/22/2017 ELMER FLOREZ MD Ot N28. 1 CYST OF KIDNEY, ACQUIRED 12/22/2017 ELMER FLOREZ MD Ot R74. 8 ABNORMAL LEVELS OF OTHER SERUM ENZYMES 12/29/2017 SRIKANTH PETERSON APRN Ot G47.33 OBSTRUCTIVE SLEEP APNEA (ADULT) (PEDIATR 12/29/2017 SRIKANTH PETERSON APRN Ot I50.31 ACUTE DIASTOLIC (CONGESTIVE) HEART FAILU 12/29/2017 SRIKANTH PETERSON APRN Ot J44.9 CHRONIC OBSTRUCTIVE PULMONARY DISEASE, U 12/29/2017 SRIKANTH PETERSON APRN Ot J84.10 PULMONARY FIBROSIS, UNSPECIFIED 12/29/2017 SRIKANTH PETERSON DELIMBER OPERATOR Ot J90 PLEURAL EFFUSION, NOT ELSEWHERE CLASSIFI 12/29/2017 SRIKANTH PETERSON DELIMBER OPERATOR Ot R06.00 DYSPNEA, UNSPECIFIED 12/29/2017 SRIKANTH PETERSON DELIMBER OPERATOR Ot R91.8 OTHER NONSPECIFIC ABNORMAL FINDING OF QUIQUE 12/29/2017 SRIKANTH PETERSON APRN Ot Z72.0 TOBACCO USE 01/12/2018 TANMAY MAI DO Ot G47. 33 OBSTRUCTIVE SLEEP APNEA (ADULT) (PEDIATR 01/12/2018 TANMAY MAI DO Ot I50. 31 ACUTE DIASTOLIC (CONGESTIVE) HEART FAILU 01/12/2018 TANMAY MAI DO Ot J44. 9 CHRONIC OBSTRUCTIVE PULMONARY DISEASE, U 01/12/2018 TANMAY MAI DO Ot J90 PLEURAL EFFUSION, NOT ELSEWHERE CLASSIFI 01/12/2018 TANMAY MAI DO M Ot R91. 8 OTHER NONSPECIFIC ABNORMAL FINDING OF QUIQUE 01/12/2018 TANMAY MAI DO Ot Z72. 0 TOBACCO USE 01/13/2018 ELMER FLOREZ MD Ot K57. 30 DVRTCLOS OF LG INT W/O PERFORATION OR AB 01/13/2018 ELMER FLOREZ MD Ot N28. 1 CYST OF KIDNEY, ACQUIRED 01/13/2018 ELMER FLOREZ MD Ot R74. 8 ABNORMAL LEVELS OF OTHER SERUM ENZYMES 01/16/2018 TANMAY MAI DO Ot G47. 33 OBSTRUCTIVE SLEEP APNEA (ADULT) (PEDIATR 01/16/2018 TANMAY MAI DO Ot I50. 31 ACUTE DIASTOLIC (CONGESTIVE) HEART FAILU 01/16/2018 TANMAY MAI DO Ot J44. 9 CHRONIC OBSTRUCTIVE PULMONARY DISEASE, U 01/16/2018 TANMAY MAI DO Ot J90 PLEURAL EFFUSION, NOT ELSEWHERE CLASSIFI 01/16/2018 TANMAY MAI DO M Ot R91. 8 OTHER NONSPECIFIC ABNORMAL FINDING OF QUIQUE 01/16/2018 TANMAY MAI DO Ot Z72. 0 TOBACCO USE 01/16/2018 ELMER FLOREZ MD Ot K57. 30 DVRTCLOS OF LG INT W/O PERFORATION OR AB 01/16/2018 ELMER FLOREZ MD Ot N28. 1 CYST OF KIDNEY, ACQUIRED 01/16/2018 ELMER FLOREZ MD Ot R74. 8 ABNORMAL LEVELS OF OTHER SERUM ENZYMES 01/20/2018 SRIKANTH PETERSON DELIMBER OPERATOR Ot G47.33 OBSTRUCTIVE SLEEP APNEA (ADULT) (PEDIATR 01/20/2018 MAYURI PETERSONINE E DELIMBER OPERATOR Ot I50.31 ACUTE DIASTOLIC (CONGESTIVE) HEART FAILU 01/20/2018 MAYURI PETERSONINE E DELIMBER OPERATOR Ot J44.9 CHRONIC OBSTRUCTIVE PULMONARY DISEASE, U 01/20/2018 MAYURI PETERSONINE E DELIMBER OPERATOR Ot J84.10 PULMONARY FIBROSIS, UNSPECIFIED 01/20/2018 KRISTENMAYURI DIALINE E DELIMBER OPERATOR Ot J90 PLEURAL EFFUSION, NOT ELSEWHERE CLASSIFI 01/20/2018 MAYURI PETERSONINE E DELIMBER OPERATOR Ot R06.00 DYSPNEA, UNSPECIFIED 01/20/2018 KRISTENMAYURI DIALINE E DELIMBER OPERATOR Ot R91.8 OTHER NONSPECIFIC ABNORMAL FINDING OF QUIQUE 01/20/2018 MAYURI PETERSONINE E DELIMBER OPERATOR Ot Z72.0 TOBACCO USE 01/20/2018 MAYURI PETERSONINE E DELIMBER OPERATOR Ot G47.33 OBSTRUCTIVE SLEEP APNEA (ADULT) (PEDIATR 01/20/2018 MAYURI PETERSONINE E DELIMBER OPERATOR Ot I50.31 ACUTE DIASTOLIC (CONGESTIVE) HEART FAILU 01/20/2018 MAYURI PETERSONINE E DELIMBER OPERATOR Ot J44.9 CHRONIC OBSTRUCTIVE PULMONARY DISEASE, U 01/20/2018 MAYURI PETERSONINE E DELIMBER OPERATOR Ot J84.10 PULMONARY FIBROSIS, UNSPECIFIED 01/20/2018 MAYURI PETERSONINE E DELIMBER OPERATOR Ot J90 PLEURAL EFFUSION, NOT ELSEWHERE CLASSIFI 01/20/2018 MAYURI PETERSONINE E DELIMBER OPERATOR Ot R06.00 DYSPNEA, UNSPECIFIED 01/20/2018 KRISTEN, SRIKANTH E DELIMBER OPERATOR Ot R91.8 OTHER NONSPECIFIC ABNORMAL FINDING OF QUIQUE 01/20/2018 MAYURI PETERSONINE E DELIMBER OPERATOR Ot Z72.0 TOBACCO USE 03/06/2018 MAYURI PETERSONINE E DELIMBER OPERATOR Ot G47.33 OBSTRUCTIVE SLEEP APNEA (ADULT) (PEDIATR 03/06/2018 MAYURI PETERSONINE E DELIMBER OPERATOR Ot I50.31 ACUTE DIASTOLIC (CONGESTIVE) HEART FAILU 03/06/2018 SRIKANTH PETERSON APRN Ot J43.8 OTHER EMPHYSEMA 03/06/2018 SRIKANTH PETERSON APRN Ot J90 PLEURAL EFFUSION, NOT ELSEWHERE CLASSIFI 03/06/2018 SRIKANTH PETERSON APRN Ot R91.8 OTHER NONSPECIFIC ABNORMAL FINDING OF QUIQUE 03/06/2018 SRIKANTH PETERSON APRN Ot Z72.0 TOBACCO USE 03/08/2018 SRIKANTH PETERSON APRN Ot B37.0 CANDIDAL STOMATITIS 03/08/2018 SRIKANTH PETERSON [...] Ot Z72.0 TOBACCO USE 03/13/2018 Ot J44.9 RESIDENTIAL LIFE DIRECTOR YARELI OBSTRUCTIVE PULMONARY DISEASE, U 03/13/2018 Ot J90 PLEURA L EFFUSION, NOT ELSEWHERE CLASSIFI 03/13/2018 Ot Z72.0 TOBA TAILING MACHINE OPERATOR USE 03/14/2018 Ot J44.9 RESIDENTIAL LIFE DIRECTOR YARELI OBSTRUCTIVE PULMONARY DISEASE, U 03/14/2018 Ot J90 PLEURA L EFFUSION, NOT ELSEWHERE CLASSIFI 03/14/2018 Ot R91.8 OTHE R NONSPECIFIC ABNORMAL FINDING OF QUIQUE 03/14/2018 Ot Z72.0 TOBA TAILING MACHINE OPERATOR USE 03/20/2018 TANMAY MAI DO Ot Z01.818 ENCOUNTER FOR OTHER PREPROCEDURAL EXAMIN 03/21/2018 TANMAY MAI DO Ot Z01.818 ENCOUNTER FOR OTHER PREPROCEDURAL EXAMIN 03/24/2018 TANMAY MAI DO Ot G47. 33 OBSTRUCTIVE SLEEP APNEA (ADULT) (PEDIATR 03/24/2018 TANMAY MAI DO Ot I25. 10 ATHSCL HEART DISEASE OF [place] CORONARY 03/24/2018 TANMAY MAI DO Ot I50. 31 ACUTE DIASTOLIC (CONGESTIVE) HEART FAILU 03/24/2018 TANMAY MAI DO Ot J44. 9 CHRONIC OBSTRUCTIVE PULMONARY DISEASE, U 03/24/2018 TANMAY MAI DO Ot J84. 9 INTERSTITIAL PULMONARY DISEASE, UNSPECIF 03/24/2018 TANMAY MAI DO Ot J90 PLEURAL EFFUSION, NOT ELSEWHERE CLASSIFI 03/24/2018 TANMAY MAI DO Ot R91. 8 OTHER NONSPECIFIC ABNORMAL FINDING OF [place] 03/24/2018 TANMAY MAI DO Ot Z72. 0 TOBACCO USE 03/24/2018 TANMAY MAI DO Ot Z79. 82 SUPERVISOR CELLARS (CURRENT) USE OF ASPIRIN 03/24/2018 TANMAY MAI DO Ot Z79.899 OTHER NURSING HOME (CURRENT) DRUG THERAPY 03/28/2018 TANMAY MAI DO Ot G47. 33 OBSTRUCTIVE SLEEP APNEA (ADULT) (PEDIATR 03/28/2018 TANMAY MAI DO Ot I25. 10 ATHSCL HEART DISEASE OF [place] CORONARY 03/28/2018 TANMAY MAI DO Ot I50. 31 ACUTE DIASTOLIC (CONGESTIVE) HEART FAILU 03/28/2018 TANMAY MAI DO Ot J44. 9 CHRONIC OBSTRUCTIVE PULMONARY DISEASE, U 03/28/2018 TANMAY MAI DO Ot J84. 9 INTERSTITIAL PULMONARY DISEASE, UNSPECIF 03/28/2018 TANMAY MAI DO Ot J90 PLEURAL EFFUSION, NOT ELSEWHERE CLASSIFI 03/28/2018 TANMAY MAI DO Ot R91. 8 OTHER NONSPECIFIC ABNORMAL FINDING OF [place] 03/28/2018 TANMAY MAI DO M Ot Z72. 0 TOBACCO USE 03/28/2018 TANMAY MAI DO Ot Z79. 82 NURSING HOME (CURRENT) USE OF ASPIRIN 03/28/2018 TANMAY MAI DO M Ot Z79.899 OTHER NURSING HOME (CURRENT) DRUG THERAPY 03/28/2018 TANMAY MAI DO M Ot G47. 33 OBSTRUCTIVE SLEEP APNEA (ADULT) (PEDIATR 03/28/2018 TANMAY MAI DO M Ot I25. 10 ATHSCL HEART DISEASE OF [place] CORONARY 03/28/2018 TANMAY MAI DO Ot I50. 31 ACUTE DIASTOLIC (CONGESTIVE) HEART FAILU 03/28/2018 TANMAY MAI DO Ot J44. 9 CHRONIC OBSTRUCTIVE PULMONARY DISEASE, U 03/28/2018 TANMAY MAI DO Ot J84. 9 INTERSTITIAL PULMONARY DISEASE, UNSPECIF 03/28/2018 ATNMAY MAI DO Ot J90 PLEURAL EFFUSION, NOT ELSEWHERE CLASSIFI 03/28/2018 TANMAY MAI DO Ot R91. 8 OTHER NONSPECIFIC ABNORMAL FINDING OF [place] 03/28/2018 TANMAY MAI DO Ot Z72. 0 TOBACCO USE 03/28/2018 TANMAY MAI DO Ot Z79. 82 SUPERVISOR CELLARS (CURRENT) USE OF ASPIRIN 03/28/2018 TANMAY MAI DO Ot Z79.899 OTHER NURSING HOME (CURRENT) DRUG THERAPY 04/03/2018 SRIKANTH PETERSON APRN Ot B37.0 CANDIDAL STOMATITIS 04/03/2018 SRIKANTH PETERSON APRN Ot G47.10 HYPERSOMNIA, UNSPECIFIED 04/03/2018 SRIKANTH PETERSON APRN Ot G47.33 OBSTRUCTIVE SLEEP APNEA (ADULT) (PEDIATR 04/03/2018 SRIKANTH PETERSON APRN Ot I50.31 ACUTE DIASTOLIC (CONGESTIVE) HEART FAILU 04/03/2018 SRIKANTH PETERSON APRN Ot I51.7 CARDIOMEGALY 04/03/2018 SRIKANTH PETERSON APRN Ot I87.8 OTHER SPECIFIED DISORDERS OF VEINS 04/03/2018 SRIKANTH PETERSON APRN Ot J43.8 OTHER EMPHYSEMA 04/03/2018 SRIKANTH PETERSON APRN Ot J90 PLEURAL EFFUSION, NOT ELSEWHERE CLASSIFI 04/03/2018 SRIKANTH PETERSON APRN Ot Z72.0 TOBACCO USE 04/04/2018 Ot J44.9 RESIDENTIAL LIFE DIRECTOR YARELI OBSTRUCTIVE PULMONARY DISEASE, U 04/04/2018 Ot J90 PLEURA L EFFUSION, NOT ELSEWHERE CLASSIFI 04/04/2018 Ot R91.8 OTHE R NONSPECIFIC ABNORMAL FINDING OF [place] 04/04/2018 Ot Z72.0 TOBA TAILING MACHINE OPERATOR USE 04/05/2018 Ot J44.9 RESIDENTIAL LIFE DIRECTOR YARELI OBSTRUCTIVE PULMONARY DISEASE, U 04/05/2018 Ot J90 PLEURA L EFFUSION, NOT ELSEWHERE CLASSIFI 04/05/2018 Ot R91.8 OTHE R NONSPECIFIC ABNORMAL FINDING OF [place] 04/05/2018 Ot Z72.0 TOBA TAILING MACHINE OPERATOR USE 04/06/2018 SRIKANTH PETERSON APRN Ot B37.0 CANDIDAL STOMATITIS 04/06/2018 SRIKANTH PETERSON APRN Ot G47.10 HYPERSOMNIA, UNSPECIFIED 04/06/2018 SRIKANTH PETERSON APRN Ot G47.33 OBSTRUCTIVE SLEEP APNEA (ADULT) (PEDIATR 04/06/2018 SRIKANTH PETERSON APRN Ot I50.31 ACUTE DIASTOLIC (CONGESTIVE) HEART FAILU 04/06/2018 SRIKANTH PETERSON APRN Ot I51.7 CARDIOMEGALY 04/06/2018 SRIKANTH PETERSON APRN Ot I87.8 OTHER SPECIFIED DISORDERS OF VEINS 04/06/2018 SRIKANTH PETERSON APRN Ot J43.8 OTHER EMPHYSEMA 04/06/2018 SRIKANTH PETERSON APRN Ot J90 PLEURAL EFFUSION, NOT ELSEWHERE CLASSIFI 04/06/2018 SRIKANTH PETERSON APRN Ot Z72.0 TOBACCO USE 04/17/2018 TANMAY MAI DO Ot G47. 33 OBSTRUCTIVE SLEEP APNEA (ADULT) (PEDIATR 04/17/2018 TANMAY MAI DO Ot I25. 10 ATHSCL HEART DISEASE OF [place] CORONARY 04/17/2018 TANMAY MAI DO Ot I50. 31 ACUTE DIASTOLIC (CONGESTIVE) HEART FAILU 04/17/2018 TANMAY MAI DO Ot J44. 9 CHRONIC OBSTRUCTIVE PULMONARY DISEASE, U 04/17/2018 TANMAY MAI DO Ot J84. 9 INTERSTITIAL PULMONARY DISEASE, UNSPECIF 04/17/2018 TANMAY MAI DO Ot J90 PLEURAL EFFUSION, NOT ELSEWHERE CLASSIFI 04/17/2018 TANMAY MAI DO Ot R91. 8 OTHER NONSPECIFIC ABNORMAL FINDING OF [place] 04/17/2018 TANMAY MAI DO Ot Z72. 0 TOBACCO USE 04/17/2018 TANMAY MAI DO Ot Z79. 82 SUPERVISOR CELLARS (CURRENT) USE OF ASPIRIN 04/17/2018 TANMAY MAI DO Ot Z79.899 OTHER NURSING HOME (CURRENT) DRUG THERAPY 04/20/2018 TANMAY MAI DO Ot G47. 33 OBSTRUCTIVE SLEEP APNEA (ADULT) (PEDIATR 04/20/2018 TANMAY MAI DO Ot I25. 10 ATHSCL HEART DISEASE OF [place] CORONARY 04/20/2018 TANMAY MAI DO Ot I50. 31 ACUTE DIASTOLIC (CONGESTIVE) HEART FAILU 04/20/2018 TANMAY MAI DO Ot J44. 9 CHRONIC OBSTRUCTIVE PULMONARY DISEASE, U 04/20/2018 TANMAY MAI DO Ot J84. 9 INTERSTITIAL PULMONARY DISEASE, UNSPECIF 04/20/2018 TANMAY MAI DO Ot J90 PLEURAL EFFUSION, NOT ELSEWHERE CLASSIFI 04/20/2018 TANMAY MAI DO Ot R91. 8 OTHER NONSPECIFIC ABNORMAL FINDING OF [place] 04/20/2018 TANMAY MAI DO Ot Z72. 0 TOBACCO USE 04/20/2018 TANMAY MAI DO Ot Z79. 82 NURSING HOME (CURRENT) USE OF ASPIRIN 04/20/2018 TANMAY MAI DO Ot Z79.899 OTHER NURSING HOME (CURRENT) DRUG THERAPY 05/16/2018 SRIKANTH PETERSON APRN Ot J44.9 CHRONIC OBSTRUCTIVE PULMONARY DISEASE, U 05/16/2018 SRIKANTH PETERSON APRN Ot J84.9 INTERSTITIAL PULMONARY DISEASE, UNSPECIF 05/16/2018 SRIKANTH PETERSON DELIMBER OPERATOR Ot Z72.0 TOBACCO USE 05/18/2018 SRIKANTH PETERSON APRN Ot J44.9 CHRONIC OBSTRUCTIVE PULMONARY DISEASE, U 05/18/2018 SRIKANTH PETERSON DELIMBER OPERATOR Ot J84.9 INTERSTITIAL PULMONARY DISEASE, UNSPECIF 05/18/2018 SRIKANTH PETERSON DELIMBER OPERATOR Ot Z72.0 TOBACCO USE 05/23/2018 SRIKANTH PETERSON APRN Ot J44.9 CHRONIC OBSTRUCTIVE PULMONARY DISEASE, U 05/23/2018 SRIKANTH PETERSON DELIMBER OPERATOR Ot J84.9 INTERSTITIAL PULMONARY DISEASE, UNSPECIF 05/23/2018 SRIKANTH PETERSON DELIMBER OPERATOR Ot Z72.0 TOBACCO USE 05/30/2018 SRIKANTH PETERSON DELIMBER OPERATOR Ot J44.9 CHRONIC OBSTRUCTIVE PULMONARY DISEASE, U 05/30/2018 SRIKANTH PETERSON DELIMBER OPERATOR Ot J84.9 INTERSTITIAL PULMONARY DISEASE, UNSPECIF 05/30/2018 SRIKANTH PETERSON DELIMBER OPERATOR Ot Z72.0 TOBACCO USE 06/06/2018 SRIKANTH PETERSON DELIMBER OPERATOR Ot J44.9 CHRONIC OBSTRUCTIVE PULMONARY DISEASE, U 06/06/2018 KRISTEN, SRIKANTH E DELIMBER OPERATOR Ot J84.9 INTERSTITIAL PULMONARY DISEASE, UNSPECIF 06/06/2018 KRISTEN, SRIKANTH E DELIMBER OPERATOR Ot Z72.0 TOBACCO USE 06/13/2018 KRISTEN, SRIKANTH E DELIMBER OPERATOR Ot J44.9 CHRONIC OBSTRUCTIVE PULMONARY DISEASE, U 06/13/2018 KRISTEN, SRIKANTH E DELIMBER OPERATOR Ot J84.9 INTERSTITIAL PULMONARY DISEASE, UNSPECIF 06/13/2018 KRISTEN, SRIKANTH E DELIMBER OPERATOR Ot Z72.0 TOBACCO USE 06/15/2018 KRISTEN, SRIKANTH E DELIMBER OPERATOR Ot J44.9 CHRONIC OBSTRUCTIVE PULMONARY DISEASE, U 06/15/2018 KRISTEN, SRIKANTH E DELIMBER OPERATOR Ot J84.9 INTERSTITIAL PULMONARY DISEASE, UNSPECIF 06/15/2018 KRISTEN, SRIKANTH E DELIMBER OPERATOR Ot Z72.0 TOBACCO USE 06/16/2018 KRISTEN, SRIKANTH E DELIMBER OPERATOR Ot J44.9 CHRONIC OBSTRUCTIVE PULMONARY DISEASE, U 06/16/2018 KRISTEN, SRIKANTH E DELIMBER OPERATOR Ot J84.9 INTERSTITIAL PULMONARY DISEASE, UNSPECIF 06/16/2018 KRISTEN, SRIKANTH E DELIMBER OPERATOR Ot Z72.0 TOBACCO USE 06/20/2018 KRISTEN, SRIKANTH E DELIMBER OPERATOR Ot J44.9 CHRONIC OBSTRUCTIVE PULMONARY DISEASE, U 06/20/2018 KRISTEN, SRIKANTH E DELIMBER OPERATOR Ot J84.9 INTERSTITIAL PULMONARY DISEASE, UNSPECIF 06/20/2018 KRISTEN, SRIKANTH E DELIMBER OPERATOR Ot Z72.0 TOBACCO USE 06/20/2018 KRISTEN, SRIKANTH E DELIMBER OPERATOR Ot J44.9 CHRONIC OBSTRUCTIVE PULMONARY DISEASE, U 06/20/2018 KRISTEN SRIKANTH E DELIMBER OPERATOR Ot J84.9 INTERSTITIAL PULMONARY DISEASE, UNSPECIF 06/20/2018 KRISTEN, SRIKANTH E DELIMBER OPERATOR Ot Z72.0 TOBACCO USE 06/22/2018 KRISTEN, SRIKANTH E DELIMBER OPERATOR Ot J44.9 CHRONIC OBSTRUCTIVE PULMONARY DISEASE, U 06/22/2018 KRISTEN, SRIKANTH E DELIMBER OPERATOR Ot J84.9 INTERSTITIAL PULMONARY DISEASE, UNSPECIF 06/22/2018 KRISTEN, SRIKANTH E DELIMBER OPERATOR Ot Z72.0 TOBACCO USE 06/29/2018 KRISTEN, SRIKANTH E DELIMBER OPERATOR Ot J44.9 CHRONIC OBSTRUCTIVE PULMONARY DISEASE, U 06/29/2018 KRISTEN SRIKANTH E DELIMBER OPERATOR Ot J84.9 INTERSTITIAL PULMONARY DISEASE, UNSPECIF 06/29/2018 KRISTEN, SRIKANTH E DELIMBER OPERATOR Ot Z72.0 TOBACCO USE 07/04/2018 KRISTEN, SRIKANTH E DELIMBER OPERATOR Ot J44.9 CHRONIC OBSTRUCTIVE PULMONARY DISEASE, U 07/04/2018 KRISTEN, SRIKANTH E DELIMBER OPERATOR Ot J84.9 INTERSTITIAL PULMONARY DISEASE, UNSPECIF 07/04/2018 KRISTEN, SRIKANTH E DELIMBER OPERATOR Ot Z72.0 TOBACCO USE 07/06/2018 KRISTEN, SRIKANTH E DELIMBER OPERATOR Ot J44.9 CHRONIC OBSTRUCTIVE PULMONARY DISEASE, U 07/06/2018 KRISTEN, SRIKANTH E DELIMBER OPERATOR Ot J84.9 INTERSTITIAL PULMONARY DISEASE, UNSPECIF 07/06/2018 KRISTEN, SRIKANTH E DELIMBER OPERATOR Ot Z72.0 TOBACCO USE 07/09/2018 KRISTEN, SRIKANTH E DELIMBER OPERATOR Ot J44.9 CHRONIC OBSTRUCTIVE PULMONARY DISEASE, U 07/09/2018 KRISTEN, SRIKANTH E DELIMBER OPERATOR Ot J84.9 INTERSTITIAL PULMONARY DISEASE, UNSPECIF 07/09/2018 KRISTEN, SRIKANTH E DELIMBER OPERATOR Ot Z72.0 TOBACCO USE 07/10/2018 KRISTEN, SRIKANTH E DELIMBER OPERATOR Ot J44.9 CHRONIC OBSTRUCTIVE PULMONARY DISEASE, U 07/10/2018 KRISTEN, SRIKANTH E DELIMBER OPERATOR Ot J84.9 INTERSTITIAL PULMONARY DISEASE, UNSPECIF 07/10/2018 KRISTEN, SRIKANTH E DELIMBER OPERATOR Ot Z72.0 TOBACCO USE 07/13/2018 KRISTEN, SRIKANTH E DELIMBER OPERATOR Ot J44.9 CHRONIC OBSTRUCTIVE PULMONARY DISEASE, U 07/13/2018 KRISTEN, SRIKANTH E DELIMBER OPERATOR Ot J84.9 INTERSTITIAL PULMONARY DISEASE, UNSPECIF 07/13/2018 KRISTEN, SRIKANTH E DELIMBER OPERATOR Ot Z72.0 TOBACCO USE 07/25/2018 KRISTEN, SRIKANTH E DELIMBER OPERATOR Ot J44.9 CHRONIC OBSTRUCTIVE PULMONARY DISEASE, U 07/25/2018 KRISTEN, SRIKANTH E DELIMBER OPERATOR Ot J84.9 INTERSTITIAL PULMONARY DISEASE, UNSPECIF 07/25/2018 KRISTEN, SRIKANTH E DELIMBER OPERATOR Ot Z72.0 TOBACCO USE 07/27/2018 KRISTEN, SRIKANTH E DELIMBER OPERATOR Ot J44.9 CHRONIC OBSTRUCTIVE PULMONARY DISEASE, U 07/27/2018 KRISTEN, SRIKANTH E DELIMBER OPERATOR Ot J84.9 INTERSTITIAL PULMONARY DISEASE, UNSPECIF 07/27/2018 KRSITEN, SRIKANTH E DELIMBER OPERATOR Ot Z72.0 TOBACCO USE 07/27/2018 KRISTEN, SRIKANTH E DELIMBER OPERATOR Ot J44.9 CHRONIC OBSTRUCTIVE PULMONARY DISEASE, U 07/27/2018 KRISTEN, SRIKANTH E DELIMBER OPERATOR Ot J84.9 INTERSTITIAL PULMONARY DISEASE, UNSPECIF 07/27/2018 KRISTEN, SRIKANTH E DELIMBER OPERATOR Ot Z72.0 TOBACCO USE 08/01/2018 KRISTEN, SRIKANTH E DELIMBER OPERATOR Ot J44.9 CHRONIC OBSTRUCTIVE PULMONARY DISEASE, U 08/01/2018 KRISTEN, SRIKANTH E DELIMBER OPERATOR Ot J84.9 INTERSTITIAL PULMONARY DISEASE, UNSPECIF 08/01/2018 KRISTEN, SRIKANTH E DELIMBER OPERATOR Ot Z72.0 TOBACCO USE 08/03/2018 KRISTEN, SRIKANTH E DELIMBER OPERATOR Ot J44.9 CHRONIC OBSTRUCTIVE PULMONARY DISEASE, U 08/03/2018 KRISTEN, SRIKANTH E DELIMBER OPERATOR Ot J84.9 INTERSTITIAL PULMONARY DISEASE, UNSPECIF 08/03/2018 KRISTEN, SRIKANTH E DELIMBER OPERATOR Ot Z72.0 TOBACCO USE 08/08/2018 KRISTEN, SRIKANTH E DELIMBER OPERATOR Ot J44.9 CHRONIC OBSTRUCTIVE PULMONARY DISEASE, U 08/08/2018 KRISTEN, SRIKANTH E DELIMBER OPERATOR Ot J84.9 INTERSTITIAL PULMONARY DISEASE, UNSPECIF 08/08/2018 KRISTEN, SRIKANTH E DELIMBER OPERATOR Ot Z72.0 TOBACCO USE 08/10/2018 KRISTEN, SRIKANTH E DELIMBER OPERATOR Ot J44.9 CHRONIC OBSTRUCTIVE PULMONARY DISEASE, U 08/10/2018 KRISTEN, SRIKANTH E DELIMBER OPERATOR Ot J84.9 INTERSTITIAL PULMONARY DISEASE, UNSPECIF 08/10/2018 KRISTEN, SRIKANTH E DELIMBER OPERATOR Ot Z72.0 TOBACCO USE 08/15/2018 KRISTEN, SRIKANTH E DELIMBER OPERATOR Ot J44.9 CHRONIC OBSTRUCTIVE PULMONARY DISEASE, U 08/15/2018 KRISTEN, SRIKANTH E DELIMBER OPERATOR Ot J84.9 INTERSTITIAL PULMONARY DISEASE, UNSPECIF 08/15/2018 KRISTEN, SRIKANTH E DELIMBER OPERATOR Ot Z72.0 TOBACCO USE 08/17/2018 KRISTEN, SRIKANTH E DELIMBER OPERATOR Ot J44.9 CHRONIC OBSTRUCTIVE PULMONARY DISEASE, U 08/17/2018 KRISTEN, SRIKANTH E DELIMBER OPERATOR Ot J84.9 INTERSTITIAL PULMONARY DISEASE, UNSPECIF 08/17/2018 KRISTEN, SRIKANTH E DELIMBER OPERATOR Ot Z72.0 TOBACCO USE 08/22/2018 KRISTEN, SRIKANTH E DELIMBER OPERATOR Ot J44.9 CHRONIC OBSTRUCTIVE PULMONARY DISEASE, U 08/22/2018 KRISTEN, SRIKANTH E DELIMBER OPERATOR Ot J84.9 INTERSTITIAL PULMONARY DISEASE, UNSPECIF 08/22/2018 SRIKANTH PETERSON DELIMBER OPERATOR Ot Z72.0 TOBACCO USE 08/24/2018 SRIKANTH PETERSON DELIMBER OPERATOR Ot J44.9 CHRONIC OBSTRUCTIVE PULMONARY DISEASE, U 08/24/2018 SRIKANTH PETERSON DELIMBER OPERATOR Ot J84.9 INTERSTITIAL PULMONARY DISEASE, UNSPECIF 08/24/2018 SRIKANTH PETERSON DELIMBER OPERATOR Ot Z72.0 TOBACCO USE 09/01/2018 ELMER FLOREZ MD Ot J44. 9 CHRONIC OBSTRUCTIVE PULMONARY DISEASE, U 09/01/2018 ELMER FLOREZ MD Ot R41. 82 ALTERED MENTAL STATUS, UNSPECIFIED 09/01/2018 ELMER FLOREZ MD Ot R53. 1 WEAKNESS 09/05/2018 SRIKANTH PETERSON DELIMBER OPERATOR Ot J44.9 CHRONIC OBSTRUCTIVE PULMONARY DISEASE, U 09/05/2018 SRIKANTH PETERSON DELIMBER OPERATOR Ot J84.9 INTERSTITIAL PULMONARY DISEASE, UNSPECIF 09/05/2018 SRIKANTH PETERSON DELIMBER OPERATOR Ot Z72.0 TOBACCO USE 09/07/2018 SRIKANTH PETERSON DELIMBER OPERATOR Ot J44.9 CHRONIC OBSTRUCTIVE PULMONARY DISEASE, U 09/07/2018 SRIKANTH PETERSON DELIMBER OPERATOR Ot J84.9 INTERSTITIAL PULMONARY DISEASE, UNSPECIF 09/07/2018 SRIKANTH PETERSON DELIMBER OPERATOR Ot Z72.0 TOBACCO USE 09/19/2018 IJEOMA CULLEN FACC, DAGO FACP CCDS Ot E78.5 HYPERLIPIDEMIA, UNSPECIFIED 09/19/2018 IJEOMA CULLEN FACC, DAGO FACP CCDS Ot F17.210 NICOTINE DEPENDENCE, CIGARETTES, UNCOMPL 09/19/2018 IJEOMA CULLEN FACC, DAGO FACP CCDS Ot G47.33 OBSTRUCTIVE SLEEP APNEA (ADULT) (PEDIATR 09/19/2018 IJEOMA CULLEN FACC, DAGO FACP CCDS Ot 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 [place]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 09/19/2018 IJEOMA CULLEN FACC, DAGO FACP CCDS Ot I25.10 ATHSCL HEART DISEASE OF [place] CORONARY 09/19/2018 IJEOMA CULLEN FACC, DAGO FACP CCDS Ot I50.31 ACUTE DIASTOLIC (CONGESTIVE) HEART FAILU 09/19/2018 IJEOMA CULLEN FACC, DAGO FACP CCDS Ot I65.23 OCCLUSION AND STENOSIS OF BILATERAL [place] 09/19/2018 IJEOMA CULLEN FACC, DAGO FACP CCDS Ot I70.213 ATHSCL [place] ARTERIES OF EXTRM W INTRMT 09/19/2018 IJEOMA CULLEN FACC, ALI FACP CCDS Ot I71.4 ABDOMINAL AORTIC ANEURYSM, WITHOUT RUPTU 09/19/2018 IJEOMA CULLEN FACC, ALI FACP CCDS Ot J43.9 EMPHYSEMA, UNSPECIFIED 09/19/2018 IJEOMA CULLEN FACC, ALI FACP CCDS Ot K21.9 GASTRO-ESOPHAGEAL REFLUX DISEASE WITHOUT 09/19/2018 IJEOMA CULLEN FACC, ALI FACP CCDS Ot N18.3 CHRONIC KIDNEY DISEASE, STAGE 3 (MODERAT 09/19/2018 IJEOMA CULLEN FACC, ALI FACP CCDS Ot Z79.82 SUPERVISOR CELLARS (CURRENT) USE OF ASPIRIN 09/19/2018 IJEOMA CULLEN FACC, DAGO FACP CCDS Ot Z79.899 OTHER NURSING HOME (CURRENT) DRUG THERAPY 09/19/2018 IJEOMA CULLEN FACC, ALI FACP CCDS Ot Z95.5 PRESENCE OF CORONARY ANGIOPLASTY IMPLANT 09/19/2018 IJEOMA CULLEN FACC, ALI FACP CCDS Ot Z95.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 09/21/2018 IJEOMA CULLEN FACC, DAGO FACP CCDS Ot E78.5 HYPERLIPIDEMIA, UNSPECIFIED 09/21/2018 IJEOMA CULLEN FACC, DAGO FACP CCDS Ot F17.210 NICOTINE DEPENDENCE, CIGARETTES, UNCOMPL 09/21/2018 IJEOMA CULLEN FACC, ALI FACP CCDS Ot G47.33 OBSTRUCTIVE SLEEP APNEA (ADULT) (PEDIATR 09/21/2018 IJEOMA CULLEN FACC, DAGO FACP CCDS Ot 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 [place]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 09/21/2018 IJEOMA CULLEN FACC, ALI FACP CCDS Ot I25.10 ATHSCL HEART DISEASE OF [place] CORONARY 09/21/2018 IJEOMA CULLEN FACC, DAGO FACP CCDS Ot I50.31 ACUTE DIASTOLIC (CONGESTIVE) HEART FAILU 09/21/2018 IJEOMA CULLEN FACC, ALI FACP CCDS Ot I65.23 OCCLUSION AND STENOSIS OF BILATERAL [place] 09/21/2018 IJEOMA CULLEN FACC, ALI FACP CCDS Ot I70.213 ATHSCL [place] ARTERIES OF EXTRM W INTRMT 09/21/2018 IJEOMA [...] CULLEN FACC, ALI FACP CCDS Ot Z79.82 NURSING HOME (CURRENT) USE OF ASPIRIN 09/21/2018 IJEOMA CULLEN FACC, ALI FACP CCDS Ot Z79.899 OTHER SUPERVISOR CELLARS (CURRENT) DRUG THERAPY 09/21/2018 IJEOMA CULLEN FACC, ALI FACP CCDS Ot Z95.5 PRESENCE OF CORONARY ANGIOPLASTY IMPLANT 09/21/2018 IJEOMA CULLEN FACC, ALI FACP CCDS Ot Z95.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 09/22/2018 ELMER FLOREZ MD Ot J44. 9 CHRONIC OBSTRUCTIVE PULMONARY DISEASE, U 09/22/2018 ELMER FLOREZ MD Ot R41. 82 ALTERED MENTAL STATUS, UNSPECIFIED 09/22/2018 ELMER FLOREZ MD Ot R53. 1 WEAKNESS 09/28/2018 ELMER FLOREZ MD Ot Z01.818 ENCOUNTER FOR OTHER PREPROCEDURAL EXAMIN 09/29/2018 ELMER FLOREZ MD Ot I10 ESSENTIAL (PRIMARY) HYPERTENSION 09/29/2018 ELMER FLOREZ MD Ot I25. 10 ATHSCL HEART DISEASE OF [place] CORONARY 09/29/2018 ELMER FLOREZ MD Ot J44. 9 CHRONIC OBSTRUCTIVE PULMONARY DISEASE, U 09/29/2018 ELMER FLOREZ MD Ot K29. 70 GASTRITIS, UNSPECIFIED, WITHOUT BLEEDING 09/29/2018 ELMER FLOREZ MD, Ot K44. 9 DIAPHRAGMATIC HERNIA WITHOUT OBSTRUCTION 09/29/2018 ELMER FLOREZ MD Ot R79. 89 OTHER SPECIFIED ABNORMAL FINDINGS OF BLO 09/29/2018 ELMER FLOREZ MD Ot Z72. 0 TOBACCO USE 09/29/2018 ELMER FLOREZ MD Ot Z72. 89 OTHER PROBLEMS RELATED TO LIFESTYLE 09/29/2018 ELMER FLOREZ MD Ot Z79. 02 SUPERVISOR CELLARS (CURRENT) USE OF ANTITHROMBOTI 09/29/2018 ELMER FLOREZ MD Ot Z79. 82 SUPERVISOR CELLARS (CURRENT) USE OF ASPIRIN 10/02/2018 BARNEY KINSEY DELIMBER OPERATOR Ot E78.5 HYPERLIPIDEMIA, UNSPECIFIED 10/02/2018 ARJUNBARNEY BROWN DELIMBER OPERATOR Ot I 10 ESSENTIAL (PRIMARY) HYPERTENSION 10/02/2018 BARNEY KINSEY DELIMBER OPERATOR Ot I25.10 ATHSCL HEART DISEASE OF [place] CORONARY 10/02/2018 BARNEY KINSEY DELIMBER OPERATOR Ot I51.7 CARDIOMEGALY 10/02/2018 BARNEY KINSEY DELIMBER OPERATOR Ot I73.9 PERIPHERAL VASCULAR DISEASE, UNSPECIFIED 10/02/2018 BARNEY KINSEY DELIMBER OPERATOR Ot I77.9 DISORDER OF ARTERIES AND ARTERIOLES, UNS 10/02/2018 BARNEY KINSEY DELIMBER OPERATOR Ot J43.9 EMPHYSEMA, UNSPECIFIED 10/02/2018 BARNEY KINSEY DELIMBER OPERATOR Ot R94.31 ABNORMAL ELECTROCARDIOGRAM [ECG] [EKG] 10/02/2018 ARJUNBARNEY BROWN DELIMBER OPERATOR Ot Z72.0 TOBACCO USE 10/02/2018 IJEOMA CULLEN FACC, ALI FACP CCDS Ot I11.0 HYPERTENSIVE HEART DISEASE WITH HEART FA 10/02/2018 IJEOMA CULLEN FACC, ALI FACP CCDS Ot I50.31 ACUTE DIASTOLIC (CONGESTIVE) HEART FAILU 10/02/2018 IJEOMA CULLEN FACC, ALI FACP CCDS Ot J43.8 OTHER EMPHYSEMA 10/02/2018 IJEOMA CULLEN FACC, ALI FACP CCDS Ot Z72.0 TOBACCO USE 10/02/2018 IJEOMA CULLEN FACC, ALI FACP CCDS Ot I11.0 HYPERTENSIVE HEART DISEASE WITH HEART FA 10/02/2018 IJEOMA CULLEN FACC, ALI FACP CCDS Ot I50.31 ACUTE DIASTOLIC (CONGESTIVE) HEART FAILU 10/02/2018 IJEOMA CULLEN FACC, ALI FACP CCDS Ot J43.8 OTHER EMPHYSEMA 10/02/2018 IJEOMA CULLEN FACC, ALI FACP CCDS Ot Z72.0 TOBACCO USE 10/02/2018 IJEOMA CULLEN FACC, ALI FACP CCDS Ot I50.31 ACUTE DIASTOLIC (CONGESTIVE) HEART FAILU 10/02/2018 IJEOMA CULLEN FACC, ALI FACP CCDS Ot I10 ESSENTIAL (PRIMARY) HYPERTENSION 10/02/2018 IJEOMA CULLEN FACC, ALI FACP CCDS Ot I50.31 ACUTE DIASTOLIC (CONGESTIVE) HEART FAILU 10/02/2018 IJEOMA CULLEN FACC, DAGO FACP CCDS Ot I73.9 PERIPHERAL VASCULAR DISEASE, UNSPECIFIED 10/02/2018 IJEOMA CULLEN FACC, DAGO FACP CCDS Ot J43.8 OTHER EMPHYSEMA 10/02/2018 IJEOMA CULLEN FACC, DAGO FACP CCDS Ot Z72.0 TOBACCO USE 10/02/2018 BAIJOSESITO BROWNHER L DELIMBER OPERATOR Ot E87.6 HYPOKALEMIA 10/02/2018 TIO BARNEY L DELIMBER OPERATOR Ot I 10 ESSENTIAL (PRIMARY) HYPERTENSION 10/02/2018 JOSESITO KINSEYHER L DELIMBER OPERATOR Ot E83.42 HYPOMAGNESEMIA 10/02/2018 TIO BARNEY L DELIMBER OPERATOR Ot E87.6 HYPOKALEMIA 10/02/2018 TANMAY MAI DO Ot G47. 9 SLEEP DISORDER, UNSPECIFIED 10/02/2018 TANMAY MAI DO Ot I50. 31 ACUTE DIASTOLIC (CONGESTIVE) HEART FAILU 10/02/2018 TANMAY MAI DO Ot J43. 8 OTHER EMPHYSEMA 10/02/2018 TANMAY MAI DO Ot R06. 83 SNORING 10/02/2018 TANMAY MAI DO Ot Z72. 0 TOBACCO USE 10/02/2018 JOSESITO KINSEYHER L DELIMBER OPERATOR Ot E83.42 HYPOMAGNESEMIA 10/02/2018 BARNEY KINSEY L DELIMBER OPERATOR Ot E87.6 HYPOKALEMIA 10/02/2018 IJEOMA CULLEN FACC, DAGO FACP CCDS Ot E78.4 OTHER HYPERLIPIDEMIA 10/02/2018 IJEOMA CULLEN FACC, DAGO FACP CCDS Ot I12.9 HYPERTENSIVE CHRONIC KIDNEY DISEASE W ST 10/02/2018 IJEOMA CULLEN FACC, DAGO FACP CCDS Ot I25.10 ATHSCL HEART DISEASE OF [place] CORONARY 10/02/2018 IJEOMA CULLEN FACC, DAGO FACP CCDS Ot I65.23 OCCLUSION AND STENOSIS OF BILATERAL [place] 10/02/2018 IJEOMA CULLEN FACC, DAGO FACP CCDS Ot I73.89 OTHER SPECIFIED PERIPHERAL VASCULAR DISE 10/02/2018 IJEOMA CULLEN FACC, DAGO FACP CCDS Ot N18.3 CHRONIC KIDNEY DISEASE, STAGE 3 (MODERAT 10/02/2018 IJEOMA CULLEN FACC, ALI FACP CCDS Ot Z72.0 TOBACCO USE 10/02/2018 SRIKANTH PETERSON APRN Ot R91.1 SOLITARY PULMONARY NODULE 10/02/2018 TIO BARNEY Selina DELIMBER OPERATOR Ot I12.9 HYPERTENSIVE CHRONIC KIDNEY DISEASE W ST 10/02/2018 JOSESITO KINSEYHER Selina DELIMBER OPERATOR Ot I25.10 ATHSCL HEART DISEASE OF [place] CORONARY 10/02/2018 ARJUNKEVIN BARNEY Marks DELIMBER OPERATOR Ot I65.23 OCCLUSION AND STENOSIS OF BILATERAL [place] 10/02/2018 BARNEY KINSEY DELIMBER OPERATOR Ot I73.89 OTHER SPECIFIED PERIPHERAL VASCULAR DISE 10/02/2018 BARNEY KINSEY DELIMBER OPERATOR Ot M79.89 OTHER SPECIFIED SOFT TISSUE DISORDERS 10/02/2018 ARJUNKEVIN BARNEY Marks DELIMBER OPERATOR Ot N18.3 CHRONIC KIDNEY DISEASE, STAGE 3 (MODERAT 10/02/2018 SRIKANTH PETERSON APRN Ot G47.33 OBSTRUCTIVE SLEEP APNEA (ADULT) (PEDIATR 10/02/2018 SRIKANTH PETERSON APRN Ot J44.9 CHRONIC OBSTRUCTIVE PULMONARY DISEASE, U 10/02/2018 SRIKANTH PETERSON APRN Ot R91.1 SOLITARY PULMONARY NODULE 10/02/2018 SRIKANTH PETERSON APRN Ot Z72.0 TOBACCO USE 10/02/2018 TANAMY MAI DO Ot G47. 33 OBSTRUCTIVE SLEEP APNEA (ADULT) (PEDIATR 10/02/2018 TANMAY MAI DO Ot I50. 31 ACUTE DIASTOLIC (CONGESTIVE) HEART FAILU 10/02/2018 TANMAY MAI DO Ot J44. 9 CHRONIC OBSTRUCTIVE PULMONARY DISEASE, U 10/02/2018 TANMAY MAI DO Ot J90 PLEURAL EFFUSION, NOT ELSEWHERE CLASSIFI 10/02/2018 TANMAY MAI DO Ot R91. 8 OTHER NONSPECIFIC ABNORMAL FINDING OF [place] 10/02/2018 TANMAY MAI DO Ot Z72. 0 TOBACCO USE 10/02/2018 ELMER FLOREZ MD Ot K57. 30 DVRTCLOS OF LG INT W/O PERFORATION OR AB 10/02/2018 ELMER FLOREZ MD Ot N28. 1 CYST OF KIDNEY, ACQUIRED 10/02/2018 ELMER FLOREZ MD Ot R74. 8 ABNORMAL LEVELS OF OTHER SERUM ENZYMES 10/02/2018 SRIKANTH PETERSON APRN Ot G47.33 OBSTRUCTIVE SLEEP APNEA (ADULT) (PEDIATR 10/02/2018 SRIKANTH PETERSON DELIMBER OPERATOR Ot I50.31 ACUTE DIASTOLIC (CONGESTIVE) HEART FAILU 10/02/2018 SRIKANTH PETERSON DELIMBER OPERATOR Ot J44.9 CHRONIC OBSTRUCTIVE PULMONARY DISEASE, U 10/02/2018 SRIKANTH PETERSON DELIMBER OPERATOR Ot J84.10 PULMONARY FIBROSIS, UNSPECIFIED 10/02/2018 SRIKANTH PETERSON DELIMBER OPERATOR Ot J90 PLEURAL EFFUSION, NOT ELSEWHERE CLASSIFI 10/02/2018 SRIKANTH PETERSON DELIMBER OPERATOR Ot R06.00 DYSPNEA, UNSPECIFIED 10/02/2018 SRIKANTH PETERSON DELIMBER OPERATOR Ot R91.8 OTHER NONSPECIFIC ABNORMAL FINDING OF [place] 10/02/2018 SRIKANTH PETERSON DELIMBER OPERATOR Ot Z72.0 TOBACCO USE 10/02/2018 SRIKANTH PETERSON DELIMBER OPERATOR Ot G47.33 OBSTRUCTIVE SLEEP APNEA (ADULT) (PEDIATR 10/02/2018 SRIKANTH PETERSON DELIMBER OPERATOR Ot I50.31 ACUTE DIASTOLIC (CONGESTIVE) HEART FAILU 10/02/2018 SRIKANTH PETERSON DELIMBER OPERATOR Ot J43.8 OTHER EMPHYSEMA 10/02/2018 SRIKANTH PETERSON DELIMBER OPERATOR Ot J90 PLEURAL EFFUSION, NOT ELSEWHERE CLASSIFI 10/02/2018 SRIKANTH PETERSON DELIMBER OPERATOR Ot R91.8 OTHER NONSPECIFIC ABNORMAL FINDING OF QUIQUE 10/02/2018 SRIKANTH PETERSON APRN Ot Z72.0 TOBACCO USE 10/02/2018 SRIKANTH PETERSON DELIMBER OPERATOR Ot B37.0 CANDIDAL STOMATITIS 10/02/2018 SRIKANTH PETERSON DELIMBER OPERATOR Ot G47.10 HYPERSOMNIA, UNSPECIFIED 10/02/2018 SRIKANTH PETERSON DELIMBER OPERATOR Ot G47.33 OBSTRUCTIVE SLEEP APNEA (ADULT) (PEDIATR 10/02/2018 SRIKANTH PETERSON DELIMBER OPERATOR Ot I50.31 ACUTE DIASTOLIC (CONGESTIVE) HEART FAILU 10/02/2018 SRIKANTH PETERSON DELIMBER OPERATOR Ot I51.7 CARDIOMEGALY 10/02/2018 SRIKANTH PETERSON DELIMBER OPERATOR Ot I87.8 OTHER SPECIFIED DISORDERS OF VEINS 10/02/2018 SRIKANTH PETERSON DELIMBER OPERATOR Ot J43.8 OTHER EMPHYSEMA 10/02/2018 SRIKANTH PETERSON DELIMBER OPERATOR Ot J90 PLEURAL EFFUSION, NOT ELSEWHERE CLASSIFI 10/02/2018 SRIKANTH PETERSON DELIMBER OPERATOR Ot Z72.0 TOBACCO USE 10/02/2018 Ot J44.9 RESIDENTIAL LIFE DIRECTOR YARELI OBSTRUCTIVE PULMONARY DISEASE, U 10/02/2018 Ot J90 PLEURA L EFFUSION, NOT ELSEWHERE CLASSIFI 10/02/2018 Ot R91.8 OTHE R NONSPECIFIC ABNORMAL FINDING OF QUI[place] 10/02/2018 Ot Z72.0 TOBA TAILING MACHINE OPERATOR USE 10/02/2018 TANMAY MAI DO Ot G47. 33 OBSTRUCTIVE SLEEP APNEA (ADULT) (PEDIATR 10/02/2018 TANMAY MAI DO Ot I25. 10 ATHSCL HEART DISEASE OF [place] CORONARY 10/02/2018 TANMAY MAI DO Ot I50. 31 ACUTE DIASTOLIC (CONGESTIVE) HEART FAILU 10/02/2018 TANMAY MAI DO Ot J44. 9 CHRONIC OBSTRUCTIVE PULMONARY DISEASE, U 10/02/2018 TANMAY MAI DO Ot J84. 9 INTERSTITIAL PULMONARY DISEASE, UNSPECIF 10/02/2018 TANMAY MAI DO Ot J90 PLEURAL EFFUSION, NOT ELSEWHERE CLASSIFI 10/02/2018 TANMAY MAI DO Ot R91. 8 OTHER NONSPECIFIC ABNORMAL FINDING OF [place] 10/02/2018 TANMAY MAI DO Ot Z72. 0 TOBACCO USE 10/02/2018 TANMAY MAI DO Ot Z79. 82 SUPERVISOR CELLARS (CURRENT) USE OF ASPIRIN 10/02/2018 TANMAY MAI DO Ot Z79.899 OTHER NURSING HOME (CURRENT) DRUG THERAPY 10/02/2018 SRIKANTH PETERSON APRN Ot J44.9 CHRONIC OBSTRUCTIVE PULMONARY DISEASE, U 10/02/2018 SRIKANTH PETERSON APRN Ot J84.9 INTERSTITIAL PULMONARY DISEASE, UNSPECIF 10/02/2018 SRIKANTH PETERSON APRN Ot Z72.0 TOBACCO USE 10/02/2018 ELMER FLOREZ MD Ot J44. 9 CHRONIC OBSTRUCTIVE PULMONARY DISEASE, U 10/02/2018 ELMER FLOREZ MD Ot R41. 82 ALTERED MENTAL STATUS, UNSPECIFIED 10/02/2018 ELMER FLOREZ MD Ot R53. 1 WEAKNESS 10/05/2018 ELMER FLOREZ MD Ot I10 ESSENTIAL (PRIMARY) HYPERTENSION 10/05/2018 ELMER FLOREZ MD Ot I25. 10 ATHSCL HEART DISEASE OF [place] CORONARY 10/05/2018 ELMER FLOREZ MD Ot J44. 9 CHRONIC OBSTRUCTIVE PULMONARY DISEASE, U 10/05/2018 ELMER FLOREZ MD Ot K29. 70 GASTRITIS, UNSPECIFIED, WITHOUT BLEEDING 10/05/2018 ELMER FLOREZ MD Ot K44. 9 DIAPHRAGMATIC HERNIA WITHOUT OBSTRUCTION 10/05/2018 ELMER FLOREZ MD Ot R79. 89 OTHER SPECIFIED ABNORMAL FINDINGS OF BLO 10/05/2018 ELMER FLOREZ MD Ot Z72. 0 TOBACCO USE 10/05/2018 ELMER FLOREZ MD Ot Z72. 89 OTHER PROBLEMS RELATED TO LIFESTYLE 10/05/2018 ELMER FLOREZ MD Ot Z79. 02 NURSING HOME (CURRENT) USE OF ANTITHROMBOTI 10/05/2018 ELMER FLOREZ MD Ot Z79. 82 NURSING HOME (CURRENT) USE OF ASPIRIN 10/07/2018 ELMER FLOREZ MD Ot I10 ESSENTIAL (PRIMARY) HYPERTENSION 10/07/2018 ELMER FLOREZ MD Ot I25. 10 ATHSCL HEART DISEASE OF [place] CORONARY 10/07/2018 ELMER FLOREZ MD Ot J44. 9 CHRONIC OBSTRUCTIVE PULMONARY DISEASE, U 10/07/2018 ELMER FLOREZ MD Ot K29. 70 GASTRITIS, UNSPECIFIED, WITHOUT BLEEDING 10/07/2018 ELMER FLOREZ MD Ot K44. 9 DIAPHRAGMATIC HERNIA WITHOUT OBSTRUCTION 10/07/2018 ELMER FLOREZ MD Ot R79. 89 OTHER SPECIFIED ABNORMAL FINDINGS OF BLO 10/07/2018 ELMER FLOREZ MD Ot Z72. 0 TOBACCO USE 10/07/2018 ELMER FLOREZ MD Ot Z72. 89 OTHER PROBLEMS RELATED TO LIFESTYLE 10/07/2018 ELMER FLOREZ MD Ot Z79. 02 NURSING HOME (CURRENT) USE OF ANTITHROMBOTI 10/07/2018 ELMER FLOREZ MD Ot Z79. 82 NURSING HOME (CURRENT) USE OF ASPIRIN 10/08/2018 SRIKANTH PETERSON APRN Ot B37.0 CANDIDAL STOMATITIS 10/08/2018 SRIKANTH PETERSON APRN Ot G47.10 HYPERSOMNIA, UNSPECIFIED 10/08/2018 SRIKANTH PETERSON APRN Ot G47.33 OBSTRUCTIVE SLEEP APNEA (ADULT) (PEDIATR 10/08/2018 SRIKANTH PETERSON DELIMBER OPERATOR Ot I25.10 ATHSCL HEART DISEASE OF [place] CORONARY 10/08/2018 SRIKANTH PETERSON APRN Ot I50.31 ACUTE DIASTOLIC (CONGESTIVE) HEART FAILU 10/08/2018 SRIKANTH PETERSON DELIMBER OPERATOR Ot I51.7 CARDIOMEGALY 10/08/2018 SRIKANTH PETERSON DELIMBER OPERATOR Ot J44.9 CHRONIC OBSTRUCTIVE PULMONARY DISEASE, U 10/08/2018 SRIKANTH PETERSON DELIMBER OPERATOR Ot J84.9 INTERSTITIAL PULMONARY DISEASE, UNSPECIF 10/08/2018 SRIKANTH PETERSON DELIMBER OPERATOR Ot J90 PLEURAL EFFUSION, NOT ELSEWHERE CLASSIFI 10/08/2018 SRIKANTH PETERSON DELIMBER OPERATOR Ot J98.4 OTHER DISORDERS OF LUNG 10/08/2018 SRIKANTH PETERSON DELIMBER OPERATOR Ot K63.89 OTHER SPECIFIED DISEASES OF INTESTINE 10/08/2018 SRIKANTH PETERSON DELIMBER OPERATOR Ot Z72.0 TOBACCO USE 10/16/2018 SRIKANTH PETERSON DELIMBER OPERATOR Ot J44.9 CHRONIC OBSTRUCTIVE PULMONARY DISEASE, U 10/16/2018 SRIKANTH PETERSON DELIMBER OPERATOR Ot J84.9 INTERSTITIAL PULMONARY DISEASE, UNSPECIF 10/16/2018 SRIKANTH PETERSON DELIMBER OPERATOR Ot Z72.0 TOBACCO USE 10/19/2018 SRIKANTH PETERSON DELIMBER OPERATOR Ot J44.9 CHRONIC OBSTRUCTIVE PULMONARY DISEASE, U 10/19/2018 SRIKANTH PETERSON DELIMBER OPERATOR Ot J84.9 INTERSTITIAL PULMONARY DISEASE, UNSPECIF 10/19/2018 SRIKANTH PETERSON DELIMBER OPERATOR Ot Z72.0 TOBACCO USE 10/25/2018 SRIKANTH PETERSON DELIMBER OPERATOR Ot J44.9 CHRONIC OBSTRUCTIVE PULMONARY DISEASE, U 10/25/2018 SRIKANTH PETERSON DELIMBER OPERATOR Ot J84.9 INTERSTITIAL PULMONARY DISEASE, UNSPECIF 10/25/2018 SRIKANTH PETERSON DELIMBER OPERATOR Ot Z72.0 TOBACCO USE 10/30/2018 SRIKANTH PETERSON DELIMBER OPERATOR Ot B37.0 CANDIDAL STOMATITIS 10/30/2018 SRIKANTH PETERSON DELIMBER OPERATOR Ot G47.10 HYPERSOMNIA, UNSPECIFIED 10/30/2018 SRIKANTH PETERSON DELIMBER OPERATOR Ot G47.33 OBSTRUCTIVE SLEEP APNEA (ADULT) (PEDIATR 10/30/2018 SRIKANTH PETERSON DELIMBER OPERATOR Ot I25.10 ATHSCL HEART DISEASE OF [place] CORONARY 10/30/2018 SRIKANTH PETERSON DELIMBER OPERATOR Ot I50.31 ACUTE DIASTOLIC (CONGESTIVE) HEART FAILU 10/30/2018 SRIKANTH PETERSON DELIMBER OPERATOR Ot I51.7 CARDIOMEGALY 10/30/2018 SRIKANTH PETERSON DELIMBER OPERATOR Ot J44.9 CHRONIC OBSTRUCTIVE PULMONARY DISEASE, U 10/30/2018 SRIKANTH PETERSON DELIMBER OPERATOR Ot J84.9 INTERSTITIAL PULMONARY DISEASE, UNSPECIF 10/30/2018 SRIKANTH PETERSON DELIMBER OPERATOR Ot J90 PLEURAL EFFUSION, NOT ELSEWHERE CLASSIFI 10/30/2018 SRIKANTH PETERSON DELIMBER OPERATOR Ot J98.4 OTHER DISORDERS OF LUNG 10/30/2018 SRIKANTH PETERSON DELIMBER OPERATOR Ot K63.89 OTHER SPECIFIED DISEASES OF INTESTINE 10/30/2018 SRIKANTH PETERSON APRN Ot Z72.0 TOBACCO USE 10/30/2018 SRIKANTH PETERSON APRN Ot B37.0 CANDIDAL STOMATITIS 10/30/2018 SRIKANTH PETERSON DELIMBER OPERATOR Ot G47.10 HYPERSOMNIA, UNSPECIFIED 10/30/2018 SRIKANTH PETERSON DELIMBER OPERATOR Ot G47.33 OBSTRUCTIVE SLEEP APNEA (ADULT) (PEDIATR 10/30/2018 SRIKANTH PETERSON DELIMBER OPERATOR Ot I25.10 ATHSCL HEART DISEASE OF [place] CORONARY 10/30/2018 SRIKANTH PETERSON DELIMBER OPERATOR Ot I50.31 ACUTE DIASTOLIC (CONGESTIVE) HEART FAILU 10/30/2018 SRIKANTH PETERSON APRN Ot I51.7 CARDIOMEGALY 10/30/2018 SRIKANTH PETERSON APRN Ot J44.9 CHRONIC OBSTRUCTIVE PULMONARY DISEASE, U 10/30/2018 SRIKANTH PETERSON DELIMBER OPERATOR Ot J84.9 INTERSTITIAL PULMONARY DISEASE, UNSPECIF 10/30/2018 SRIKANTH PETERSON APRN Ot J90 PLEURAL EFFUSION, NOT ELSEWHERE CLASSIFI 10/30/2018 SRIKANTH PETERSON DELIMBER OPERATOR Ot J98.4 OTHER DISORDERS OF LUNG 10/30/2018 SRIKANTH PETERSON DELIMBER OPERATOR Ot K63.89 OTHER SPECIFIED DISEASES OF INTESTINE 10/30/2018 SRIKANTH PETERSON DELIMBER OPERATOR Ot Z72.0 TOBACCO USE 10/30/2018 SRIKANTH PETERSON DELIMBER OPERATOR Ot J44.9 CHRONIC OBSTRUCTIVE PULMONARY DISEASE, U 10/30/2018 SRIKANTH PETERSON DELIMBER OPERATOR Ot J84.9 INTERSTITIAL PULMONARY DISEASE, UNSPECIF 10/30/2018 SRIKANTH PETERSON DELIMBER OPERATOR Ot Z72.0 TOBACCO USE 11/01/2018 MAYURI PETERSONINE Sabina DELIMBER OPERATOR Ot J44.9 CHRONIC OBSTRUCTIVE PULMONARY DISEASE, U 11/01/2018 KRISTENMAYURISRIKANTH Sabina DELIMBER OPERATOR Ot J84.9 INTERSTITIAL PULMONARY DISEASE, UNSPECIF 11/01/2018 KRISTENMAYURISRIKANTH Sabina DELIMBER OPERATOR Ot Z72.0 TOBACCO USE 11/03/2018 KRISTENMAYURISRIKANTH Sabina DELIMBER OPERATOR Ot J44.9 CHRONIC OBSTRUCTIVE PULMONARY DISEASE, U 11/03/2018 KRISTENMAYURISRIKANTH Sabina DELIMBER OPERATOR Ot J84.9 INTERSTITIAL PULMONARY DISEASE, UNSPECIF 11/03/2018 KRISTENMAYURISRIKANTH E DELIMBER OPERATOR Ot Z72.0 TOBACCO USE 11/16/2018 GAUTAM CULLEN, ELMER Rodriges Ot J44. 9 CHRONIC OBSTRUCTIVE PULMONARY DISEASE, U 11/21/2018 GAUTAM CULLEN, ELMER Rodriges Ot J44. 9 CHRONIC OBSTRUCTIVE PULMONARY DISEASE, U 11/28/2018 GAUTAM CULLEN, ELMER Rodriges Ot J44. 9 CHRONIC OBSTRUCTIVE PULMONARY DISEASE, U 12/05/2018 GAUTAM CULLEN, ELMER Rodriges Ot J44. 9 CHRONIC OBSTRUCTIVE PULMONARY DISEASE, U 12/07/2018 GAUTAM CULLEN, ELMER Rodriges Ot J44. 9 CHRONIC OBSTRUCTIVE PULMONARY DISEASE, U 12/12/2018 GAUTAM CULLEN, ELMER Rodriges Ot J44. 9 CHRONIC OBSTRUCTIVE PULMONARY DISEASE, U 12/12/2018 GAUTAM CULLEN, ELMER Rodriges Ot J44. 9 CHRONIC OBSTRUCTIVE PULMONARY DISEASE, U 12/19/2018 GAUTAM CULLEN, ELMER Rodriges Ot J44. 9 CHRONIC OBSTRUCTIVE PULMONARY DISEASE, U 12/27/2018 WOOD SHAW MD Ot E83. 42 HYPOMAGNESEMIA 12/27/2018 WOOD SHAW MD Ot E87. 6 HYPOKALEMIA 12/27/2018 WOOD SHAW MD Ot F10. 20 ALCOHOL DEPENDENCE, UNCOMPLICATED 12/27/2018 WOOD SHAW MD Ot F17.210 NICOTINE DEPENDENCE, CIGARETTES, UNCOMPL 12/27/2018 WOOD SHAW MD Ot G47. 33 OBSTRUCTIVE SLEEP APNEA (ADULT) (PEDIATR 12/27/2018 WOOD SHAW MD Ot I10 ESSENTIAL (PRIMARY) HYPERTENSION 12/27/2018 WOOD SHAW MD Ot I25. 10 ATHSCL HEART DISEASE OF [place] CORONARY 12/27/2018 WOOD SHAW MD Ot I48. 91 UNSPECIFIED ATRIAL FIBRILLATION 12/27/2018 WOOD SHAW MD, Ot I70. 1 ATHEROSCLEROSIS OF RENAL ARTERY 12/27/2018 WOOD SHAW MD, Ot I71. 4 ABDOMINAL AORTIC ANEURYSM, WITHOUT RUPTU 12/27/2018 WOOD SHAW MD, Ot J43. 9 EMPHYSEMA, UNSPECIFIED 12/27/2018 WOOD SHAW MD, Ot K21. 9 GASTRO-ESOPHAGEAL REFLUX DISEASE WITHOUT 12/27/2018 WOOD SHAW MD, Ot K44. 9 DIAPHRAGMATIC HERNIA WITHOUT OBSTRUCTION 12/27/2018 WOOD SHAW MD, Ot M19. 91 PRIMARY OSTEOARTHRITIS, UNSPECIFIED SITE 12/27/2018 WOOD SHAW MD, Ot R11. 2 NAUSEA WITH VOMITING, UNSPECIFIED 12/27/2018 WOOD SHAW MD, Ot R19. 7 DIARRHEA, UNSPECIFIED 12/27/2018 WOOD SHAW MD, Ot R59. 0 LOCALIZED ENLARGED LYMPH NODES 12/27/2018 WOOD SHAW MD, Ot R63. 4 ABNORMAL WEIGHT LOSS 12/27/2018 WOOD SHAW MD Ot Z80. 0 FAMILY HISTORY OF MALIGNANT NEOPLASM OF 12/27/2018 WOOD SHAW MD Ot Z80. 1 FAMILY HISTORY OF MALIG NEOPLASM OF [place] 12/27/2018 WOOD SHAW MD Ot Z85.828 PERSONAL HISTORY OF OTHER MALIGNANT NEOP 12/27/2018 WOOD SHAW MD Ot Z87. 19 PERSONAL HISTORY OF OTHER DISEASES OF TH 12/27/2018 WOOD SHAW MD Ot Z95. 5 PRESENCE OF CORONARY ANGIOPLASTY IMPLANT 12/27/2018 WOOD SHAW MD Ot Z96.651 PRESENCE OF RIGHT ARTIFICIAL KNEE JOINT 12/27/2018 WOOD SHAW MD Ot D61.818 OTHER PANCYTOPENIA 12/27/2018 WOOD SHAW MD, Ot D69. 6 THROMBOCYTOPENIA, UNSPECIFIED 12/27/2018 WOOD SHAW MD Ot E78. 5 HYPERLIPIDEMIA, UNSPECIFIED 12/27/2018 WOOD SHAW MD Ot E83. 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 42 HYPOMAGNESEMIA 12/27/2018 COLIN MD, WOOD M Ot E87. 1 HYPO-OSMOLALITY AND HYPONATREMIA 12/27/2018 WOOD SHAW MD, Ot E87. 6 HYPOKALEMIA 12/27/2018 WOOD SHAW MD, Ot F10. 20 ALCOHOL DEPENDENCE, UNCOMPLICATED 12/27/2018 WOOD SHAW MD, Ot F17.210 NICOTINE DEPENDENCE, CIGARETTES, UNCOMPL 12/27/2018 WOOD SHAW MD, Ot G47. 33 OBSTRUCTIVE SLEEP APNEA (ADULT) (PEDIATR 12/27/2018 WOOD SHAW MD, Ot I10 ESSENTIAL (PRIMARY) HYPERTENSION 12/27/2018 WOOD SHAW MD, Ot I25. 10 ATHSCL HEART DISEASE OF [place] CORONARY 12/27/2018 WOOD SHAW MD, Ot I48. 0 PAROXYSMAL ATRIAL FIBRILLATION 12/27/2018 WOOD SHAW MD, Ot I48. 91 UNSPECIFIED ATRIAL FIBRILLATION 12/27/2018 WOOD SHAW MD, Ot I70. 1 ATHEROSCLEROSIS OF RENAL ARTERY 12/27/2018 WOOD SHAW MD Ot I71. 4 ABDOMINAL AORTIC ANEURYSM, WITHOUT RUPTU 12/27/2018 WOOD SHAW MD, Ot J43. 9 EMPHYSEMA, UNSPECIFIED 12/27/2018 WOOD SHAW MD Ot K21. 0 GASTRO-ESOPHAGEAL REFLUX DISEASE WITH ES 12/27/2018 WOOD SHAW MD, Ot K21. 9 GASTRO-ESOPHAGEAL REFLUX DISEASE WITHOUT 12/27/2018 WOOD SHAW MD Ot K22. 2 ESOPHAGEAL OBSTRUCTION 12/27/2018 WOOD SHAW MD Ot K29. 70 GASTRITIS, UNSPECIFIED, WITHOUT BLEEDING 12/27/2018 WOOD SHAW MD Ot K44. 9 DIAPHRAGMATIC HERNIA WITHOUT OBSTRUCTION 12/27/2018 WOOD SHAW MD Ot K57. 30 DVRTCLOS OF LG INT W/O PERFORATION OR AB 12/27/2018 WOOD SHAW MD, Ot K64. 1 SECOND DEGREE HEMORRHOIDS 12/27/2018 WOOD SHAW MD, Ot M19. 91 PRIMARY OSTEOARTHRITIS, UNSPECIFIED SITE 12/27/2018 WOOD SHAW MD Ot R11. 2 NAUSEA WITH VOMITING, UNSPECIFIED 12/27/2018 WOOD SHAW MD, Ot R19. 7 DIARRHEA, UNSPECIFIED 12/27/2018 WOOD SHAW MD Ot R59. 0 LOCALIZED ENLARGED LYMPH NODES 12/27/2018 WOOD SHAW MD, Ot R63. 4 ABNORMAL WEIGHT LOSS 12/27/2018 WOOD SHAW MD, Ot Z80. 0 FAMILY HISTORY OF MALIGNANT NEOPLASM OF 12/27/2018 WOOD SHAW MD, Ot Z80. 1 FAMILY HISTORY OF MALIG NEOPLASM OF [place] 12/27/2018 WOOD SHAW MD Ot Z85.828 PERSONAL HISTORY OF OTHER MALIGNANT NEOP 12/27/2018 WOOD SHAW MD, Ot Z87. 19 PERSONAL HISTORY OF OTHER DISEASES OF TH 12/27/2018 WOOD SHAW MD, Ot Z88. 2 ALLERGY STATUS TO SULFONAMIDES STATUS 12/27/2018 WOOD SHAW MD Ot Z95. 5 PRESENCE OF CORONARY ANGIOPLASTY IMPLANT 12/27/2018 WOOD SHAW MD Ot Z96.651 PRESENCE OF RIGHT ARTIFICIAL KNEE JOINT 01/01/2019 GAUTAM CULLEN, ELMER Rodriges Ot J44. 9 CHRONIC OBSTRUCTIVE PULMONARY DISEASE, U 01/04/2019 WOOD SHAW MD, Ot E78. 5 HYPERLIPIDEMIA, UNSPECIFIED 01/04/2019 WOOD SHAW MD Ot F10.231 ALCOHOL DEPENDENCE WITH WITHDRAWAL DELIR 01/04/2019 WOOD SHAW MD Ot F10. 29 ALCOHOL DEPENDENCE WITH UNSPECIFIED ALCO 01/04/2019 WOOD SHAW MD Ot F17.210 NICOTINE DEPENDENCE, CIGARETTES, UNCOMPL 01/04/2019 WOOD SHAW MD Ot G47. 33 OBSTRUCTIVE SLEEP APNEA (ADULT) (PEDIATR 01/04/2019 WOOD SHAW MD Ot I12. 9 HYPERTENSIVE CHRONIC KIDNEY DISEASE W ST 01/04/2019 WOOD SHAW MD, Ot I25. 10 ATHSCL HEART DISEASE OF [place] CORONARY 01/04/2019 WOOD SHAW MD Ot I48. 0 PAROXYSMAL ATRIAL FIBRILLATION 01/04/2019 WOOD SHAW MD Ot I65. 01 OCCLUSION AND STENOSIS OF RIGHT VERTEBRA 01/04/2019 WOOD SHAW MD Ot I65. 29 OCCLUSION AND STENOSIS OF UNSPECIFIED CA 01/04/2019 WOOD SHAW MD Ot I70. 1 ATHEROSCLEROSIS OF RENAL ARTERY 01/04/2019 WOOD SHAW MD Ot I73. 9 PERIPHERAL VASCULAR DISEASE, UNSPECIFIED 01/04/2019 WOOD SHAW MD Ot J30. 2 OTHER SEASONAL ALLERGIC RHINITIS 01/04/2019 WOOD SHAW MD Ot J43. 9 EMPHYSEMA, UNSPECIFIED 01/04/2019 WOOD SHAW MD Ot J84. 9 INTERSTITIAL PULMONARY DISEASE, UNSPECIF 01/04/2019 WOOD SHAW MD Ot K21. 9 GASTRO-ESOPHAGEAL REFLUX DISEASE WITHOUT 01/04/2019 WOOD SHAW MD Ot M19. 91 PRIMARY OSTEOARTHRITIS, UNSPECIFIED SITE 01/04/2019 WOOD SHAW MD Ot N18. 3 CHRONIC KIDNEY DISEASE, STAGE 3 (MODERAT 01/04/2019 WOOD SHAW MD Ot R06. 4 HYPERVENTILATION 01/04/2019 WOOD SHAW MD Ot R41. 0 DISORIENTATION, UNSPECIFIED 01/04/2019 WOOD SHAW MD Ot R45. 1 RESTLESSNESS AND AGITATION 01/04/2019 WOOD SHAW MD Ot R47. 01 APHASIA 01/04/2019 WOOD SHAW MD Ot R53. 1 WEAKNESS 01/04/2019 WOOD SHAW MD Ot R63. 4 ABNORMAL WEIGHT LOSS 01/04/2019 WOOD SHAW MD Ot Z95. 5 PRESENCE OF CORONARY ANGIOPLASTY IMPLANT 01/05/2019 WOOD SHAW MD Ot E78. 5 HYPERLIPIDEMIA, UNSPECIFIED 01/05/2019 WOOD SHAW MD Ot F10.231 ALCOHOL DEPENDENCE WITH WITHDRAWAL DELIR 01/05/2019 WOOD SHAW MD Ot F10. 29 ALCOHOL DEPENDENCE WITH UNSPECIFIED ALCO 01/05/2019 WOOD SHAW MD Ot F17.210 NICOTINE DEPENDENCE, CIGARETTES, UNCOMPL 01/05/2019 WOOD SHAW MD Ot G47. 33 OBSTRUCTIVE SLEEP APNEA (ADULT) (PEDIATR 01/05/2019 WOOD SHAW MD Ot I12. 9 HYPERTENSIVE CHRONIC KIDNEY DISEASE W ST 01/05/2019 WOOD SHAW MD Ot I25. 10 ATHSCL HEART DISEASE OF [place] CORONARY 01/05/2019 WOOD SHAW MD Ot I48. 0 PAROXYSMAL ATRIAL FIBRILLATION 01/05/2019 WOOD SHAW MD Ot I65. 01 OCCLUSION AND STENOSIS OF RIGHT VERTEBRA 01/05/2019 WOOD SHAW MD Ot I65. 29 OCCLUSION AND STENOSIS OF UNSPECIFIED CA 01/05/2019 WOOD SHAW MD Ot I70. 1 ATHEROSCLEROSIS OF RENAL ARTERY 01/05/2019 WOOD SHAW MD Ot I73. 9 PERIPHERAL VASCULAR DISEASE, UNSPECIFIED 01/05/2019 WOOD SHAW MD Ot J30. 2 OTHER SEASONAL ALLERGIC RHINITIS 01/05/2019 WOOD SHAW MD Ot J43. 9 EMPHYSEMA, UNSPECIFIED 01/05/2019 WOOD SHAW MD Ot J84. 9 INTERSTITIAL PULMONARY DISEASE, UNSPECIF 01/05/2019 WOOD SHAW MD Ot K21. 9 GASTRO-ESOPHAGEAL REFLUX DISEASE WITHOUT 01/05/2019 WOOD SHAW MD Ot M19. 91 PRIMARY OSTEOARTHRITIS, UNSPECIFIED SITE 01/05/2019 WOOD SHAW MD Ot N18. 3 CHRONIC KIDNEY DISEASE, STAGE 3 (MODERAT 01/05/2019 WOOD SHAW MD Ot R06. 4 HYPERVENTILATION 01/05/2019 WOOD SHAW MD Ot R41. 0 DISORIENTATION, UNSPECIFIED 01/05/2019 WOOD SHAW MD Ot R45. 1 RESTLESSNESS AND AGITATION 01/05/2019 WOOD SHAW MD Ot R47. 01 APHASIA 01/05/2019 WOOD HSAW MD Ot R53. 1 WEAKNESS 01/05/2019 WOOD SHAW MD Ot R63. 4 ABNORMAL WEIGHT LOSS 01/05/2019 WOOD SHAW MD Ot Z95. 5 PRESENCE OF CORONARY ANGIOPLASTY IMPLANT 01/05/2019 WOOD SHAW MD Ot E78. 5 HYPERLIPIDEMIA, UNSPECIFIED 01/05/2019 WOOD SHAW MD Ot F10.231 ALCOHOL DEPENDENCE WITH WITHDRAWAL DELIR 01/05/2019 WOOD SHAW MD Ot F10. 29 ALCOHOL DEPENDENCE WITH UNSPECIFIED ALCO 01/05/2019 WOOD SHAW MD Ot F17.210 NICOTINE DEPENDENCE, CIGARETTES, UNCOMPL 01/05/2019 COLIN MD, WOOD M Ot G47. 33 OBSTRUCTIVE SLEEP APNEA (ADULT) (PEDIATR 01/05/2019 WOOD SHAW MD Ot I12. 9 HYPERTENSIVE CHRONIC KIDNEY DISEASE W ST 01/05/2019 WOOD SHAW MD Ot I25. 10 ATHSCL HEART DISEASE OF [place] CORONARY 01/05/2019 WOOD SHAW MD Ot I48. 0 PAROXYSMAL ATRIAL FIBRILLATION 01/05/2019 WOOD SHAW MD Ot I65. 01 OCCLUSION AND STENOSIS OF RIGHT VERTEBRA 01/05/2019 WOOD SHAW MD Ot I65. 29 OCCLUSION AND STENOSIS OF UNSPECIFIED CA 01/05/2019 WOOD SHAW MD Ot I70. 1 ATHEROSCLEROSIS OF RENAL ARTERY 01/05/2019 WOOD SHAW MD Ot I73. 9 PERIPHERAL VASCULAR DISEASE, UNSPECIFIED 01/05/2019 WOOD SHAW MD Ot J30. 2 OTHER SEASONAL ALLERGIC RHINITIS 01/05/2019 WOOD SHAW MD Ot J43. 9 EMPHYSEMA, UNSPECIFIED 01/05/2019 WOOD SHAW MD Ot J84. 9 INTERSTITIAL PULMONARY DISEASE, UNSPECIF 01/05/2019 WOOD SHAW MD Ot K21. 9 GASTRO-ESOPHAGEAL REFLUX DISEASE WITHOUT 01/05/2019 WOOD SHAW MD Ot M19. 91 PRIMARY OSTEOARTHRITIS, UNSPECIFIED SITE 01/05/2019 WOOD SHAW MD Ot N18. 3 CHRONIC KIDNEY DISEASE, STAGE 3 (MODERAT 01/05/2019 WOOD SHAW MD Ot R06. 4 HYPERVENTILATION 01/05/2019 WOOD SHAW MD Ot R41. 0 DISORIENTATION, UNSPECIFIED 01/05/2019 WOOD SHAW MD Ot R45. 1 RESTLESSNESS AND AGITATION 01/05/2019 WOOD SHAW MD Ot R47. 01 APHASIA 01/05/2019 WOOD SHAW MD Ot R53. 1 WEAKNESS 01/05/2019 WOOD SHAW MD Ot R63. 4 ABNORMAL WEIGHT LOSS 01/05/2019 WOOD SHAW MD Ot Z95. 5 PRESENCE OF CORONARY ANGIOPLASTY IMPLANT 01/05/2019 WOOD SHAW MD Ot E78. 5 HYPERLIPIDEMIA, UNSPECIFIED 01/05/2019 WOOD SHAW MD Ot F10.231 ALCOHOL DEPENDENCE WITH WITHDRAWAL DELIR 01/05/2019 WOOD SHAW MD Ot F10. 29 ALCOHOL DEPENDENCE WITH UNSPECIFIED ALCO 01/05/2019 WOOD SHAW MD Ot F17.210 NICOTINE DEPENDENCE, CIGARETTES, UNCOMPL 01/05/2019 WOOD SHAW MD Ot G47. 33 OBSTRUCTIVE SLEEP APNEA (ADULT) (PEDIATR 01/05/2019 WOOD SHAW MD Ot I12. 9 HYPERTENSIVE CHRONIC KIDNEY DISEASE W ST 01/05/2019 WOOD SHAW MD, Ot I25. 10 ATHSCL HEART DISEASE OF [place] CORONARY 01/05/2019 WOOD SHAW MD Ot I48. 0 PAROXYSMAL ATRIAL FIBRILLATION 01/05/2019 WOOD SHAW MD Ot I65. 01 OCCLUSION AND STENOSIS OF RIGHT VERTEBRA 01/05/2019 WOOD SHAW MD Ot I65. 29 OCCLUSION AND STENOSIS OF UNSPECIFIED CA 01/05/2019 WOOD SHAW MD Ot I70. 1 ATHEROSCLEROSIS OF RENAL ARTERY 01/05/2019 WOOD SHAW MD Ot I73. 9 PERIPHERAL VASCULAR DISEASE, UNSPECIFIED 01/05/2019 WOOD SHAW MD Ot J30. 2 OTHER SEASONAL ALLERGIC RHINITIS 01/05/2019 WOOD SHAW MD Ot J43. 9 EMPHYSEMA, UNSPECIFIED 01/05/2019 WOOD SHAW MD Ot J84. 9 INTERSTITIAL PULMONARY DISEASE, UNSPECIF 01/05/2019 WOOD SHAW MD Ot K21. 9 GASTRO-ESOPHAGEAL REFLUX DISEASE WITHOUT 01/05/2019 WOOD SHAW MD Ot M19. 91 PRIMARY OSTEOARTHRITIS, UNSPECIFIED SITE 01/05/2019 WOOD SHAW MD Ot N18. 3 CHRONIC KIDNEY DISEASE, STAGE 3 (MODERAT 01/05/2019 WOOD SHAW MD Ot R06. 4 HYPERVENTILATION 01/05/2019 WOOD SHAW MD Ot R41. 0 DISORIENTATION, UNSPECIFIED 01/05/2019 WOOD SHAW MD Ot R45. 1 RESTLESSNESS AND AGITATION 01/05/2019 WOOD SHAW MD Ot R47. 01 APHASIA 01/05/2019 WOOD SHAW MD Ot R53. 1 WEAKNESS 01/05/2019 WOOD SHAW MD, Ot R63. 4 ABNORMAL WEIGHT LOSS 01/05/2019 WOOD SHAW MD Ot Z95. 5 PRESENCE OF CORONARY ANGIOPLASTY IMPLANT 01/06/2019 WOOD SHAW MD Ot E78. 5 HYPERLIPIDEMIA, UNSPECIFIED 01/06/2019 WOOD SHAW MD Ot F10.231 ALCOHOL DEPENDENCE WITH WITHDRAWAL DELIR 01/06/2019 WOOD SHAW MD Ot F10. 29 ALCOHOL DEPENDENCE WITH UNSPECIFIED ALCO 01/06/2019 WOOD SHAW MD Ot F17.210 NICOTINE DEPENDENCE, CIGARETTES, UNCOMPL 01/06/2019 WOOD SHAW MD, Ot G47. 33 OBSTRUCTIVE SLEEP APNEA (ADULT) (PEDIATR 01/06/2019 WOOD SHAW MD, Ot I12. 9 HYPERTENSIVE CHRONIC KIDNEY DISEASE W ST 01/06/2019 WOOD SHAW MD Ot I25. 10 ATHSCL HEART DISEASE OF [place] CORONARY 01/06/2019 WOOD SHAW MD Ot I48. 0 PAROXYSMAL ATRIAL FIBRILLATION 01/06/2019 WOOD SHAW MD Ot I65. 01 OCCLUSION AND STENOSIS OF RIGHT VERTEBRA 01/06/2019 WOOD SHAW MD Ot I65. 29 OCCLUSION AND STENOSIS OF UNSPECIFIED CA 01/06/2019 WOOD SHAW MD Ot I70. 1 ATHEROSCLEROSIS OF RENAL ARTERY 01/06/2019 WOOD SHAW MD Ot I73. 9 PERIPHERAL VASCULAR DISEASE, UNSPECIFIED 01/06/2019 WOOD SHAW MD Ot J30. 2 OTHER SEASONAL ALLERGIC RHINITIS 01/06/2019 WOOD SHAW MD, Ot J43. 9 EMPHYSEMA, UNSPECIFIED 01/06/2019 WOOD SHAW MD Ot J84. 9 INTERSTITIAL PULMONARY DISEASE, UNSPECIF 01/06/2019 WOOD SHAW MD Ot K21. 9 GASTRO-ESOPHAGEAL REFLUX DISEASE WITHOUT 01/06/2019 WOOD SHAW MD Ot M19. 91 PRIMARY OSTEOARTHRITIS, UNSPECIFIED SITE 01/06/2019 WOOD SHAW MD Ot N18. 3 CHRONIC KIDNEY DISEASE, STAGE 3 (MODERAT 01/06/2019 WOOD SHAW MD Ot R06. 4 HYPERVENTILATION 01/06/2019 WOOD SHAW MD Ot R41. 0 DISORIENTATION, UNSPECIFIED 01/06/2019 WOOD SHAW MD Ot R45. 1 RESTLESSNESS AND AGITATION 01/06/2019 WOOD SHAW MD Ot R47. 01 APHASIA 01/06/2019 WOOD SHAW MD Ot R53. 1 WEAKNESS 01/06/2019 WOOD SHAW MD Ot R63. 4 ABNORMAL WEIGHT LOSS 01/06/2019 WOOD SHAW MD Ot Z95. 5 PRESENCE OF CORONARY ANGIOPLASTY IMPLANT 01/07/2019 WOOD SHAW MD Ot E78. 5 HYPERLIPIDEMIA, UNSPECIFIED 01/07/2019 WOOD SHAW MD Ot F10.231 ALCOHOL DEPENDENCE WITH WITHDRAWAL DELIR 01/07/2019 WOOD SHAW MD Ot F10. 29 ALCOHOL DEPENDENCE WITH UNSPECIFIED ALCO 01/07/2019 WOOD SHAW MD Ot F17.210 NICOTINE DEPENDENCE, CIGARETTES, UNCOMPL 01/07/2019 WOOD SHAW MD Ot G47. 33 OBSTRUCTIVE SLEEP APNEA (ADULT) (PEDIATR 01/07/2019 WOOD SHAW MD Ot I12. 9 HYPERTENSIVE CHRONIC KIDNEY DISEASE W ST 01/07/2019 WOOD SHAW MD Ot I25. 10 ATHSCL HEART DISEASE OF [place] CORONARY 01/07/2019 WOOD SHAW MD Ot I48. 0 PAROXYSMAL ATRIAL FIBRILLATION 01/07/2019 WOOD SHAW MD Ot I65. 01 OCCLUSION AND STENOSIS OF RIGHT VERTEBRA 01/07/2019 WODO SHAW MD Ot I65. 29 OCCLUSION AND STENOSIS OF UNSPECIFIED CA 01/07/2019 WOOD SHAW MD Ot I70. 1 ATHEROSCLEROSIS OF RENAL ARTERY 01/07/2019 WOOD SHAW MD Ot I73. 9 PERIPHERAL VASCULAR DISEASE, UNSPECIFIED 01/07/2019 WOOD SHAW MD Ot J30. 2 OTHER SEASONAL ALLERGIC RHINITIS 01/07/2019 WOOD SHAW MD Ot J43. 9 EMPHYSEMA, UNSPECIFIED 01/07/2019 WOOD SHAW MD Ot J84. 9 INTERSTITIAL PULMONARY DISEASE, UNSPECIF 01/07/2019 WOOD SHAW MD Ot K21. 9 GASTRO-ESOPHAGEAL REFLUX DISEASE WITHOUT 01/07/2019 WOOD SHAW MD Ot M19. 91 PRIMARY OSTEOARTHRITIS, UNSPECIFIED SITE 01/07/2019 WOOD SHAW MD Ot N18. 3 CHRONIC KIDNEY DISEASE, STAGE 3 (MODERAT 01/07/2019 WOOD SHAW MD Ot R06. 4 HYPERVENTILATION 01/07/2019 WOOD SHAW MD Ot R41. 0 DISORIENTATION, UNSPECIFIED 01/07/2019 WOOD SHAW MD Ot R45. 1 RESTLESSNESS AND AGITATION 01/07/2019 WOOD SHAW MD Ot R47. 01 APHASIA 01/07/2019 WOOD SHAW MD Ot R53. 1 WEAKNESS 01/07/2019 WOOD SHAW MD Ot R63. 4 ABNORMAL WEIGHT LOSS 01/07/2019 WOOD SHAW MD Ot Z95. 5 PRESENCE OF CORONARY ANGIOPLASTY IMPLANT 01/08/2019 WOOD SHAW MD Ot E78. 5 HYPERLIPIDEMIA, UNSPECIFIED 01/08/2019 WOOD SHAW MD Ot F10.231 ALCOHOL DEPENDENCE WITH WITHDRAWAL DELIR 01/08/2019 WOOD SHAW MD Ot F10. 29 ALCOHOL DEPENDENCE WITH UNSPECIFIED ALCO 01/08/2019 WOOD SHAW MD Ot F17.210 NICOTINE DEPENDENCE, CIGARETTES, UNCOMPL 01/08/2019 WOOD SHAW MD Ot G47. 33 OBSTRUCTIVE SLEEP APNEA (ADULT) (PEDIATR 01/08/2019 WOOD SHAW MD Ot I12. 9 HYPERTENSIVE CHRONIC KIDNEY DISEASE W ST 01/08/2019 WOOD SHAW MD Ot I25. 10 ATHSCL HEART DISEASE OF [place] CORONARY 01/08/2019 WOOD SHAW MD Ot I48. 0 PAROXYSMAL ATRIAL FIBRILLATION 01/08/2019 WOOD SHAW MD Ot I65. 01 OCCLUSION AND STENOSIS OF RIGHT VERTEBRA 01/08/2019 WOOD SHAW MD Ot I65. 29 OCCLUSION AND STENOSIS OF UNSPECIFIED CA 01/08/2019 WOOD SHAW MD Ot I70. 1 ATHEROSCLEROSIS OF RENAL ARTERY 01/08/2019 WOOD SHAW MD Ot I73. 9 PERIPHERAL VASCULAR DISEASE, UNSPECIFIED 01/08/2019 WOOD SHAW MD Ot J30. 2 OTHER SEASONAL ALLERGIC RHINITIS 01/08/2019 WOOD SHAW MD Ot J43. 9 EMPHYSEMA, UNSPECIFIED 01/08/2019 WOOD SHAW MD Ot J84. 9 INTERSTITIAL PULMONARY DISEASE, UNSPECIF 01/08/2019 WOOD SHAW MD Ot K21. 9 GASTRO-ESOPHAGEAL REFLUX DISEASE WITHOUT 01/08/2019 WOOD SHAW MD Ot M19. 91 PRIMARY OSTEOARTHRITIS, UNSPECIFIED SITE 01/08/2019 WOOD SHAW MD Ot N18. 3 CHRONIC KIDNEY DISEASE, STAGE 3 (MODERAT 01/08/2019 WOOD SHAW MD Ot R06. 4 HYPERVENTILATION 01/08/2019 WOOD SHAW MD Ot R41. 0 DISORIENTATION, UNSPECIFIED 01/08/2019 WOOD SHAW MD Ot R45. 1 RESTLESSNESS AND AGITATION 01/08/2019 WOOD SHAW MD Ot R47. 01 APHASIA 01/08/2019 WOOD SHAW MD Ot R53. 1 WEAKNESS 01/08/2019 WOOD SHAW MD Ot R63. 4 ABNORMAL WEIGHT LOSS 01/08/2019 WOOD SHAW MD Ot Z95. 5 PRESENCE OF CORONARY ANGIOPLASTY IMPLANT 01/08/2019 WOOD SHAW MD Ot D64. 9 ANEMIA, UNSPECIFIED 01/08/2019 WOOD SHAW MD Ot E78. 5 HYPERLIPIDEMIA, UNSPECIFIED 01/08/2019 WOOD SHAW MD Ot F10.231 ALCOHOL DEPENDENCE WITH WITHDRAWAL DELIR 01/08/2019 WOOD SHAW MD Ot F10. 29 ALCOHOL DEPENDENCE WITH UNSPECIFIED ALCO 01/08/2019 WOOD SHAW MD Ot F17.210 NICOTINE DEPENDENCE, CIGARETTES, UNCOMPL 01/08/2019 WOOD SHAW MD Ot G47. 33 OBSTRUCTIVE SLEEP APNEA (ADULT) (PEDIATR 01/08/2019 WOOD SHAW MD Ot I12. 9 HYPERTENSIVE CHRONIC KIDNEY DISEASE W ST 01/08/2019 WOOD SHAW MD Ot I25. 10 ATHSCL HEART DISEASE OF [place] CORONARY 01/08/2019 WOOD SHAW MD Ot I48. 0 PAROXYSMAL ATRIAL FIBRILLATION 01/08/2019 WOOD SHAW MD Ot I65. 01 OCCLUSION AND STENOSIS OF RIGHT VERTEBRA 01/08/2019 WOOD SHAW MD Ot I65. 29 OCCLUSION AND STENOSIS OF UNSPECIFIED CA 01/08/2019 WOOD SHAW MD Ot I70. 1 ATHEROSCLEROSIS OF RENAL ARTERY 01/08/2019 WOOD SHAW MD Ot I73. 9 PERIPHERAL VASCULAR DISEASE, UNSPECIFIED 01/08/2019 WOOD SHAW MD Ot J30. 2 OTHER SEASONAL ALLERGIC RHINITIS 01/08/2019 WOOD SHAW MD Ot J43. 9 EMPHYSEMA, UNSPECIFIED 01/08/2019 WOOD SHAW MD Ot J84. 9 INTERSTITIAL PULMONARY DISEASE, UNSPECIF 01/08/2019 WOOD SHAW MD Ot K21. 9 GASTRO-ESOPHAGEAL REFLUX DISEASE WITHOUT 01/08/2019 WOOD SHAW MD Ot K59. 00 CONSTIPATION, UNSPECIFIED 01/08/2019 WOOD SHAW MD Ot M19. 91 PRIMARY OSTEOARTHRITIS, UNSPECIFIED SITE 01/08/2019 WOOD SHAW MD Ot N18. 3 CHRONIC KIDNEY DISEASE, STAGE 3 (MODERAT 01/08/2019 WOOD SHAW MD Ot R06. 4 HYPERVENTILATION 01/08/2019 WOOD SHAW MD Ot R41. 0 DISORIENTATION, UNSPECIFIED 01/08/2019 WOOD SHAW MD Ot R45. 1 RESTLESSNESS AND AGITATION 01/08/2019 WOOD SHAW MD Ot R47. 01 APHASIA 01/08/2019 WOOD SHAW MD Ot R53. 1 WEAKNESS 01/08/2019 WOOD SHAW MD Ot R63. 4 ABNORMAL WEIGHT LOSS 01/08/2019 WOOD SHAW MD Ot Z79. 01 NURSING HOME (CURRENT) USE OF ANTICOAGULANT 01/08/2019 WOOD SHAW MD Ot Z95. 5 PRESENCE OF CORONARY ANGIOPLASTY IMPLANT 01/08/2019 IJEOMA CULLEN FACC, DAGO CLAY CCDS Ot I50.31 ACUTE DIASTOLIC (CONGESTIVE) HEART FAILU 01/08/2019 SRIKANTH PETERSON APRN Ot J44.9 CHRONIC OBSTRUCTIVE PULMONARY DISEASE, U 01/08/2019 SRIKANTH PETERSON APRN Ot J84.9 INTERSTITIAL PULMONARY DISEASE, UNSPECIF 01/08/2019 SRIKANTH PETERSON APRN Ot Z72.0 TOBACCO USE 01/17/2019 GAUTAM CULLEN, ELMER Rodriges Ot J44. 9 CHRONIC OBSTRUCTIVE PULMONARY DISEASE, U 01/29/2019 JENNIFFER PINEDO DUKE Ot D50.9 IRON DEFICIENCY ANEMIA, UNSPECIFIED 01/29/2019 YSABEL ABAD DOI Ot D61.81 8 OTHER PANCYTOPENIA 01/29/2019 YSABEL ABAD DOI Ot E46 UNSPECIFIED PROTEIN-CALORIE MALNUTRITION 01/29/2019 JENNIFFER PINEDO DUKE Ot E53.8 DEFICIENCY OF OTHER SPECIFIED B GROUP 01/29/2019 JENNIFFER PINEDO DUKE Ot E83.42 HYPOMAGNESEMIA 01/29/2019 YSABEL ABAD DOI Ot E87.6 HYPOKALEMIA 01/29/2019 JENNIFFER PINEDO DUKE Ot F10.26 ALCOHOL DEPEND W ALCOH-INDUCE PERSISTING 01/29/2019 JENNIFFER PINEDO DUKE Ot F41.0 PANIC DISORDER [EPISODIC PAROXYSMAL ANXI 01/29/2019 JENNIFFER PINEDO DUKE Ot G47.33 OBSTRUCTIVE SLEEP APNEA (ADULT) (PEDIATR 01/29/2019 JENNIFFER PINEDO DUKE Ot G62.9 POLYNEUROPATHY, UNSPECIFIED 01/29/2019 YSABEL ABAD DOI Ot I08.0 RHEUMATIC DISORDERS OF BOTH MITRAL AND A 01/29/2019 YSABEL ABAD DOI Ot 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 KDNY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 01/29/2019 JENNIFFER PINEDO DUKE Ot I25.10 ATHSCL HEART DISEASE OF [place] CORONARY 01/29/2019 YSABEL ABAD DOI Ot I48.0 PAROXYSMAL ATRIAL FIBRILLATION 01/29/2019 JENNIFFER PINEDO UDKE Ot I50.32 CHRONIC DIASTOLIC (CONGESTIVE) HEART ISAAK 01/29/2019 JENNIFFER PINEDO DUKE Ot I65.09 OCCLUSION AND STENOSIS OF UNSPECIFIED VE 01/29/2019 JENNIFFER PINEDO DUKE Ot I70.1 ATHEROSCLEROSIS OF RENAL ARTERY 01/29/2019 JENNIFFER PINEDO DUKE Ot J18.9 PNEUMONIA, UNSPECIFIED ORGANISM 01/29/2019 YSABEL AABD DOI Ot J43.9 EMPHYSEMA, UNSPECIFIED 01/29/2019 YSABEL ABAD DOI Ot J84.9 INTERSTITIAL PULMONARY DISEASE, UNSPECIF 01/29/2019 ABAD DO, DUKE Ot K21.9 GASTRO-ESOPHAGEAL REFLUX DISEASE WITHOUT 01/29/2019 ABAD DO, DUKE Ot K86.0 ALCOHOL-INDUCED CHRONIC PANCREATITIS 01/29/2019 ABAD DO, DUKE Ot N18.3 CHRONIC KIDNEY DISEASE, STAGE 3 (MODERAT 01/29/2019 ABAD DO, DUKE Ot N39.0 URINARY TRACT INFECTION, SITE NOT SPECIF 01/29/2019 ABAD DO, DUKE Ot R29.6 REPEATED FALLS 01/29/2019 ABAD DO, DUKE Ot R32 UNSPECIFIED URINARY INCONTINENCE 01/29/2019 ABAD DO, DUKE Ot R47.01 APHASIA 01/29/2019 ABAD DO, DUKE Ot R53.1 WEAKNESS 01/29/2019 ABAD DO, DUKE Ot S41.11 2A LACERATION W/O FOREIGN BODY OF LEFT UPPE 01/29/2019 JENNIFFER DO, DUKE Ot Z79.01 NURSING HOME (CURRENT) USE OF ANTICOAGULANT 02/04/2019 ELMER FLOREZ MD Ot J44. 9 CHRONIC OBSTRUCTIVE PULMONARY DISEASE, U 02/05/2019 ELMER FLOREZ MD Ot J44. 9 CHRONIC OBSTRUCTIVE PULMONARY DISEASE, U 03/27/2019 SRIKANTH PETERSON APRN Ot G47.10 HYPERSOMNIA, UNSPECIFIED 03/27/2019 SRIKANTH PETERSON DELIMBER OPERATOR Ot G47.33 OBSTRUCTIVE SLEEP APNEA (ADULT) (PEDIATR 03/27/2019 SRIKANTH PETERSON DELIMBER OPERATOR Ot I50.31 ACUTE DIASTOLIC (CONGESTIVE) HEART FAILU 03/27/2019 SRIKANTH PETERSON DELIMBER OPERATOR Ot J43.8 OTHER EMPHYSEMA 03/27/2019 SRIKANTH PETERSON DELIMBER OPERATOR Ot J84.9 INTERSTITIAL PULMONARY DISEASE, UNSPECIF 03/27/2019 SRIKANTH PETERSON DELIMBER OPERATOR Ot R06.00 DYSPNEA, UNSPECIFIED 03/27/2019 SRIKANTH PETERSON DELIMBER OPERATOR Ot R91.8 OTHER NONSPECIFIC ABNORMAL FINDING OF QUIQUE 03/27/2019 SRIKANTH PETERSON DELIMBER OPERATOR Ot Z72.0 TOBACCO USE 04/20/2019 SRIKANTH PETERSON DELIMBER OPERATOR Ot G47.10 HYPERSOMNIA, UNSPECIFIED 04/20/2019 SRIKANTH PETERSON DELIMBER OPERATOR Ot G47.33 OBSTRUCTIVE SLEEP APNEA (ADULT) (PEDIATR 04/20/2019 SRIKANTH PETERSON DELIMBER OPERATOR Ot I50.31 ACUTE DIASTOLIC (CONGESTIVE) HEART FAILU 04/20/2019 MAYURI PETERSONINE E DELIMBER OPERATOR Ot J43.8 OTHER EMPHYSEMA 04/20/2019 KRISTEN, SRIKANTH E DELIMBER OPERATOR Ot J84.9 INTERSTITIAL PULMONARY DISEASE, UNSPECIF 04/20/2019 KRISTEN, SRIKANTH E DELIMBER OPERATOR Ot R06.00 DYSPNEA, UNSPECIFIED 04/20/2019 KRISTEN, SRIKANTH E DELIMBER OPERATOR Ot R91.8 OTHER NONSPECIFIC ABNORMAL FINDING OF QUIQUE 04/20/2019 MAYURI PETERSONINE E DELIMBER OPERATOR Ot Z72.0 TOBACCO USE 04/20/2019 KRISTEN, SRIKANTH E DELIMBER OPERATOR Ot G47.33 OBSTRUCTIVE SLEEP APNEA (ADULT) (PEDIATR 04/20/2019 MAYURI PETERSONINE E DELIMBER OPERATOR Ot J47.9 BRONCHIECTASIS, UNCOMPLICATED 04/20/2019 MAYURI PETERSONINE E DELIMBER OPERATOR Ot J84.10 PULMONARY FIBROSIS, UNSPECIFIED 04/20/2019 KRISTENMAYURI DIALINE E DELIMBER OPERATOR Ot J98.4 OTHER DISORDERS OF LUNG 04/20/2019 MAYURI PETERSONINE E DELIMBER OPERATOR Ot R06.00 DYSPNEA, UNSPECIFIED 04/20/2019 KRISTEN, SRIKANTH E DELIMBER OPERATOR Ot R91.8 OTHER NONSPECIFIC ABNORMAL FINDING OF QUIQUE 04/20/2019 MAYURI PETERSONINE Sabina DELIMBER OPERATOR Ot Z72.0 TOBACCO USE 04/27/2019 KRISTEN, SRIKANTH E DELIMBER OPERATOR Ot G47.10 HYPERSOMNIA, UNSPECIFIED 04/27/2019 KRISTEN, SRIKANTH E DELIMBER OPERATOR Ot G47.33 OBSTRUCTIVE SLEEP APNEA (ADULT) (PEDIATR 04/27/2019 MAYURI PETERSONINE Sabina DELIMBER OPERATOR Ot I50.31 ACUTE DIASTOLIC (CONGESTIVE) HEART FAILU 04/27/2019 MAYURI PETERSONINE E DELIMBER OPERATOR Ot J43.8 OTHER EMPHYSEMA 04/27/2019 MAYURI PETERSONINE E DELIMBER OPERATOR Ot J84.9 INTERSTITIAL PULMONARY DISEASE, UNSPECIF 04/27/2019 KRISTEN, SRIKANTH E DELIMBER OPERATOR Ot R06.00 DYSPNEA, UNSPECIFIED 04/27/2019 KRISTEN, SRIKANTH E DELIMBER OPERATOR Ot R91.8 OTHER NONSPECIFIC ABNORMAL FINDING OF QUIQUE 04/27/2019 MAYURI PETERSONINE E DELIMBER OPERATOR Ot Z72.0 TOBACCO USE 05/09/2019 KRISTEN, SRIKANTH E DELIMBER OPERATOR Ot G47.33 OBSTRUCTIVE SLEEP APNEA (ADULT) (PEDIATR 05/09/2019 SRIKANTH PETERSON APRN Ot J47.9 BRONCHIECTASIS, UNCOMPLICATED 05/09/2019 SRIKANTH PETERSON APRN Ot J84.10 PULMONARY FIBROSIS, UNSPECIFIED 05/09/2019 SRIKANTH PETERSON APRN Ot J98.4 OTHER DISORDERS OF LUNG 05/09/2019 SRIKANTH PETERSON APRN Ot R06.00 DYSPNEA, UNSPECIFIED 05/09/2019 SRIKANTH PETERSON DELIMBER OPERATOR Ot R91.8 OTHER NONSPECIFIC ABNORMAL FINDING OF Q[place] 05/09/2019 SRIKANTH PETERSON DELIMBER OPERATOR Ot Z72.0 TOBACCO USE 05/23/2019 IJEOMA CULLEN FAC, DAGO FACP CCDS Ot I50.31 ACUTE DIASTOLIC (CONGESTIVE) HEART FAILU 05/23/2019 SRIKANTH PETERSON APRN Ot J44.9 CHRONIC OBSTRUCTIVE PULMONARY DISEASE, U 05/23/2019 SRIKANTH PETERSON APRN Ot J84.9 INTERSTITIAL PULMONARY DISEASE, UNSPECIF 05/23/2019 SRIKANTH PETERSON APRN Ot Z72.0 TOBACCO USE 05/23/2019 GAUTAM CULLEN, ELMER Rodriges Ot J44. 9 CHRONIC OBSTRUCTIVE PULMONARY DISEASE, U 05/23/2019 RAYMOND HESS MD Ot Z01.818 ENCOUNTER FOR OTHER PREPROCEDURAL EXAMIN 05/24/2019 RAYMOND HESS MD Ot Z01.818 ENCOUNTER FOR OTHER PREPROCEDURAL EXAMIN 05/30/2019 RAYMOND HESS MD Ot F41.9 ANXIETY DISORDER, UNSPECIFIED 05/30/2019 RAYMOND HESS MD Ot G25.81 RESTLESS LEGS SYNDROME 05/30/2019 RAYMOND HESS MD Ot G47.30 SLEEP APNEA, UNSPECIFIED 05/30/2019 RAYMOND HESS MD Ot G56.01 CARPAL TUNNEL SYNDROME, RIGHT UPPER LIMB 05/30/2019 RAYMOND HESS MD Ot G56.21 LESION OF ULNAR NERVE, RIGHT UPPER LIMB 05/30/2019 RAYMOND HESS MD Ot I1 0 ESSENTIAL (PRIMARY) HYPERTENSION 05/30/2019 RAYMOND HESS MD Ot I25.10 ATHSCL HEART DISEASE OF [place] CORONARY 05/30/2019 RAYMOND HESS MD Ot J44.9 CHRONIC OBSTRUCTIVE PULMONARY DISEASE, U 05/30/2019 RAYMOND HESS MD Ot K21.9 GASTRO-ESOPHAGEAL REFLUX DISEASE WITHOUT 05/30/2019 RAYMOND HESS MD, Ot Z79.01 SUPERVISOR CELLARS (CURRENT) USE OF ANTICOAGULANT 05/30/2019 RAYMOND HESS MD, Ot Z79.891 SUPERVISOR CELLARS (CURRENT) USE OF OPIATE ANALGE 05/30/2019 RAYMOND HESS MD, Ot Z79.899 OTHER SUPERVISOR CELLARS (CURRENT) DRUG THERAPY 05/30/2019 RAYMOND HESS MD, Ot Z80.9 FAMILY HISTORY OF MALIGNANT NEOPLASM, UN 05/30/2019 SRIKANTH PETERSON APRN Ot J44.9 CHRONIC OBSTRUCTIVE PULMONARY DISEASE, U 05/30/2019 SRIKANTH PETERSON APRN Ot J84.10 PULMONARY FIBROSIS, UNSPECIFIED 06/01/2019 RAYMOND HESS MD, Ot F41.9 ANXIETY DISORDER, UNSPECIFIED 06/01/2019 RAYMOND HESS MD Ot G25.81 RESTLESS LEGS SYNDROME 06/01/2019 RAYMOND HESS MD Ot G47.30 SLEEP APNEA, UNSPECIFIED 06/01/2019 RAYMOND HESS MD Ot G56.01 CARPAL TUNNEL SYNDROME, RIGHT UPPER LIMB 06/01/2019 RAYMOND HESS MD Ot G56.21 LESION OF ULNAR NERVE, RIGHT UPPER LIMB 06/01/2019 RAYMOND HESS MD Ot I1 0 ESSENTIAL (PRIMARY) HYPERTENSION 06/01/2019 RAYMOND HESS MD Ot I25.10 ATHSCL HEART DISEASE OF [place] CORONARY 06/01/2019 RAYMOND HESS MD, Ot J44.9 CHRONIC OBSTRUCTIVE PULMONARY DISEASE, U 06/01/2019 RAYMOND HESS MD Ot K21.9 GASTRO-ESOPHAGEAL REFLUX DISEASE WITHOUT 06/01/2019 RAYMOND HESS MD, Ot Z79.01 NURSING HOME (CURRENT) USE OF ANTICOAGULANT 06/01/2019 RAYMOND HESS MD Ot Z79.891 SUPERVISOR CELLARS (CURRENT) USE OF OPIATE ANALGE 06/01/2019 RAYMOND HESS MD Ot Z79.899 OTHER NURSING HOME (CURRENT) DRUG THERAPY 06/01/2019 RAYMOND HESS MD, Ot Z80.9 FAMILY HISTORY OF MALIGNANT NEOPLASM, UN 06/05/2019 RAYMOND HESS MD Ot F41.9 ANXIETY DISORDER, UNSPECIFIED 06/05/2019 RAYMOND HESS MD Ot G25.81 RESTLESS LEGS SYNDROME 06/05/2019 DESHAWN CULLEN, RAYMOND Courtney Ot G47.30 SLEEP APNEA, UNSPECIFIED 06/05/2019 RAYMOND HESS MD, Ot G56.01 CARPAL TUNNEL SYNDROME, RIGHT UPPER LIMB 06/05/2019 RAYMOND HESS MD Ot G56.21 LESION OF ULNAR NERVE, RIGHT UPPER LIMB 06/05/2019 RAYMOND HESS MD, Ot I1 0 ESSENTIAL (PRIMARY) HYPERTENSION 06/05/2019 RAYMOND HESS MD Ot I25.10 ATHSCL HEART DISEASE OF [place] CORONARY 06/05/2019 RAYMOND HESS MD Ot J44.9 CHRONIC OBSTRUCTIVE PULMONARY DISEASE, U 06/05/2019 RAYMOND HESS MD, Ot K21.9 GASTRO-ESOPHAGEAL REFLUX DISEASE WITHOUT 06/05/2019 RAYMOND HESS MD Ot Z79.01 NURSING HOME (CURRENT) USE OF ANTICOAGULANT 06/05/2019 RAYMOND HESS MD Ot Z79.891 NURSING HOME (CURRENT) USE OF OPIATE ANALGE 06/05/2019 RAYMOND HESS MD Ot Z79.899 OTHER SUPERVISOR CELLARS (CURRENT) DRUG THERAPY 06/05/2019 RAYMOND HESS MD Ot Z80.9 FAMILY HISTORY OF MALIGNANT NEOPLASM, UN 06/19/2019 SRIKANTH PETERSON APRN Ot J44.9 CHRONIC OBSTRUCTIVE PULMONARY DISEASE, U 06/19/2019 SRIKANTH PETERSON APRN Ot J84.10 PULMONARY FIBROSIS, UNSPECIFIED 06/21/2019 IJEOMA CULLEN FACC, DAGO FACP CCDS Ot I50.31 ACUTE DIASTOLIC (CONGESTIVE) HEART FAILU 06/21/2019 SRIKANTH PETERSON APRN Ot J44.9 CHRONIC OBSTRUCTIVE PULMONARY DISEASE, U 06/21/2019 SRIKANTH PETERSON APRN Ot J84.9 INTERSTITIAL PULMONARY DISEASE, UNSPECIF 06/21/2019 SRIKANTH PETERSON APRN Ot Z72.0 TOBACCO USE 06/21/2019 GAUTAM CULLEN, ELMER Rodriges Ot J44. 9 CHRONIC OBSTRUCTIVE PULMONARY DISEASE, U 06/21/2019 RAYMOND HESS MD Ot Z01.818 ENCOUNTER FOR OTHER PREPROCEDURAL EXAMIN 06/21/2019 RAYMOND HESS MD, Ot Z01.818 ENCOUNTER FOR OTHER PREPROCEDURAL EXAMIN 06/22/2019 RAYMOND HESS MD, Ot Z01.818 ENCOUNTER FOR OTHER PREPROCEDURAL EXAMIN 06/22/2019 SRIKANTH PETERSON APRN Ot J44.9 CHRONIC OBSTRUCTIVE PULMONARY DISEASE, U 06/22/2019 SRIKNATH PETERSON APRN Ot J84.10 PULMONARY FIBROSIS, UNSPECIFIED 06/27/2019 BAIKEVIN, BARNEY L DELIMBER OPERATOR Ot E78.5 HYPERLIPIDEMIA, UNSPECIFIED 06/27/2019 BAIMA, BARNEY L DELIMBER OPERATOR Ot I 10 ESSENTIAL (PRIMARY) HYPERTENSION 06/27/2019 BAIMA, BARNEY L DELIMBER OPERATOR Ot I25.10 ATHSCL HEART DISEASE OF [place] CORONARY 06/27/2019 BAIMA, BARNEY L DELIMBER OPERATOR Ot I51.7 CARDIOMEGALY 06/27/2019 BAIMA, BARNEY L DELIMBER OPERATOR Ot I73.9 PERIPHERAL VASCULAR DISEASE, UNSPECIFIED 06/27/2019 BAIMA, BARNEY L DELIMBER OPERATOR Ot I77.9 DISORDER OF ARTERIES AND ARTERIOLES, UNS 06/27/2019 BAIMA, BARNEY L DELIMBER OPERATOR Ot J43.9 EMPHYSEMA, UNSPECIFIED 06/27/2019 BAIMA, BARNEY L DELIMBER OPERATOR Ot R94.31 ABNORMAL ELECTROCARDIOGRAM [ECG] [EKG] 06/27/2019 BAIMA, BARNEY L DELIMBER OPERATOR Ot Z72.0 TOBACCO USE 06/27/2019 IJEOMA CULLEN FACC, ALI FACP CCDS Ot I11.0 HYPERTENSIVE HEART DISEASE WITH HEART FA 06/27/2019 IJEOMA SANCHEZ, ALI FACP CCDS Ot I50.31 ACUTE DIASTOLIC (CONGESTIVE) HEART FAILU 06/27/2019 IJEOMA CULLEN FACC, ALI FACP CCDS Ot J43.8 OTHER EMPHYSEMA 06/27/2019 IJEOMA CULLEN FACC, ALI FACP CCDS Ot Z72.0 TOBACCO USE 06/27/2019 IJEOMA CULLEN FACC, ALI FACP CCDS Ot I11.0 HYPERTENSIVE HEART DISEASE WITH HEART FA 06/27/2019 IJEOMA CULLEN FACC, ALI FACP CCDS Ot I50.31 ACUTE DIASTOLIC (CONGESTIVE) HEART FAILU 06/27/2019 IJEOMA CULLEN FACC, ALI FACP CCDS Ot J43.8 OTHER EMPHYSEMA 06/27/2019 IJEOMA CULLEN FACC, ALI FACP CCDS Ot Z72.0 TOBACCO USE 06/27/2019 IJEOMA CULLEN FACC, ALI FACP CCDS Ot I50.31 ACUTE DIASTOLIC (CONGESTIVE) HEART FAILU 06/27/2019 IJEOMA SANCHEZ, ALI FACP CCDS Ot I10 ESSENTIAL (PRIMARY) HYPERTENSION 06/27/2019 IEJOMA SANCHEZ, ALI FACP CCDS Ot I50.31 ACUTE DIASTOLIC (CONGESTIVE) HEART FAILU 06/27/2019 IJEOMA SANCHEZ, ALI FACP CCDS Ot I73.9 PERIPHERAL VASCULAR DISEASE, UNSPECIFIED 06/27/2019 IJEOMA CULLEN FACC, ALI FACP CCDS Ot J43.8 OTHER EMPHYSEMA 06/27/2019 IJEOMA CULLEN [facility], ALI FACP CCDS Ot Z72.0 TOBACCO USE 06/27/2019 BAIMA, BARNEY L DELIMBER OPERATOR Ot E87.6 HYPOKALEMIA 06/27/2019 BAIMA, BARNEY L DELIMBER OPERATOR Ot I 10 ESSENTIAL (PRIMARY) HYPERTENSION 06/27/2019 BAIMA, BARNEY L DELIMBER OPERATOR Ot E83.42 HYPOMAGNESEMIA 06/27/2019 TIO BARNEY L DELIMBER OPERATOR Ot E87.6 HYPOKALEMIA 06/27/2019 TANMAY MAI DO Ot G47. 9 SLEEP DISORDER, UNSPECIFIED 06/27/2019 TANMAY MAI DO Ot I50. 31 ACUTE DIASTOLIC (CONGESTIVE) HEART FAILU 06/27/2019 TANMAY MAI DO Ot J43. 8 OTHER EMPHYSEMA 06/27/2019 TANMAY MAI DO Ot R06. 83 SNORING 06/27/2019 TANMAY MAI DO Ot Z72. 0 TOBACCO USE 06/27/2019 TIO, BARNEY L DELIMBER OPERATOR Ot E83.42 HYPOMAGNESEMIA 06/27/2019 JOSESITO KINSEYHER L DELIMBER OPERATOR Ot E87.6 HYPOKALEMIA 06/27/2019 IJEOAM SANCHEZ, ALI FACP CCDS Ot E78.4 OTHER HYPERLIPIDEMIA 06/27/2019 IJEOMA CULLEN FACC, ALI FACP CCDS Ot I12.9 HYPERTENSIVE CHRONIC KIDNEY DISEASE W ST 06/27/2019 IJEOMA CULLEN FACC, ALI FACP CCDS Ot I25.10 ATHSCL HEART DISEASE OF [place] CORONARY 06/27/2019 IJEOMA CULLEN FACC, ALI FACP CCDS Ot I65.23 OCCLUSION AND STENOSIS OF BILATERAL SERRATO 06/27/2019 IJEOMA CULLEN FACC, ALI FACP CCDS Ot I73.89 OTHER SPECIFIED PERIPHERAL VASCULAR DISE 06/27/2019 IJEOMA CULLEN FAC, ALI LAURAP CCDS Ot N18.3 CHRONIC KIDNEY DISEASE, STAGE 3 (MODERAT 06/27/2019 IJEOMA CULLEN FAC, ALI FACP CCDS Ot Z72.0 TOBACCO USE 06/27/2019 SRIKANTH PETERSON APRN Ot R91.1 SOLITARY PULMONARY NODULE 06/27/2019 BARNEY KINSEY L DELIMBER OPERATOR Ot I12.9 HYPERTENSIVE CHRONIC KIDNEY DISEASE W ST 06/27/2019 BARNEY KINSEY L DELIMBER OPERATOR Ot I25.10 ATHSCL HEART DISEASE OF [place] CORONARY 06/27/2019 BARNEY KINSEY L DELIMBER OPERATOR Ot I65.23 OCCLUSION AND STENOSIS OF BILATERAL SERRATO 06/27/2019 JOSESITO KINSEYHER L DELIMBER OPERATOR Ot I73.89 OTHER SPECIFIED PERIPHERAL VASCULAR DISE 06/27/2019 JOSESITO KINSEYHER L DELIMBER OPERATOR Ot M79.89 OTHER SPECIFIED SOFT TISSUE DISORDERS 06/27/2019 BARNEY KINSEY DELIMBER OPERATOR Ot N18.3 CHRONIC KIDNEY DISEASE, STAGE 3 (MODERAT 06/27/2019 SRIKANTH PETERSON APRN Ot G47.33 OBSTRUCTIVE SLEEP APNEA (ADULT) (PEDIATR 06/27/2019 SRIKANTH PETERSON APRN Ot J44.9 CHRONIC OBSTRUCTIVE PULMONARY DISEASE, U 06/27/2019 SRIKANTH PETERSON APRN Ot R91.1 SOLITARY PULMONARY NODULE 06/27/2019 SRIKANTH PETERSON APRN Ot Z72.0 TOBACCO USE 06/27/2019 TANMAY MAI DO Ot G47. 33 OBSTRUCTIVE SLEEP APNEA (ADULT) (PEDIATR 06/27/2019 TANMAY MAI DO Ot I50. 31 ACUTE DIASTOLIC (CONGESTIVE) HEART FAILU 06/27/2019 TANMAY MAI DO Ot J44. 9 CHRONIC OBSTRUCTIVE PULMONARY DISEASE, U 06/27/2019 TANMAY MAI DO Ot J90 PLEURAL EFFUSION, NOT ELSEWHERE CLASSIFI 06/27/2019 TANMAY MAI DO Ot R91. 8 OTHER NONSPECIFIC ABNORMAL FINDING OF QUIQUE 06/27/2019 TANMAY MAI DO Ot Z72. 0 TOBACCO USE 06/27/2019 ELMER FLOREZ MD Ot K57. 30 DVRTCLOS OF LG INT W/O PERFORATION OR AB 06/27/2019 ELMER FLOREZ MD Ot N28. 1 CYST OF KIDNEY, ACQUIRED 06/27/2019 GAUTAM CULLEN, ELMER Rodriges Ot R74. 8 ABNORMAL LEVELS OF OTHER SERUM ENZYMES 06/27/2019 SRIKANTH PETERSON DELIMBER OPERATOR Ot G47.33 OBSTRUCTIVE SLEEP APNEA (ADULT) (PEDIATR 06/27/2019 MAYURI PETERSONINE E DELIMBER OPERATOR Ot I50.31 ACUTE DIASTOLIC (CONGESTIVE) HEART FAILU 06/27/2019 MAYURI PETERSONINE E DELIMBER OPERATOR Ot J44.9 CHRONIC OBSTRUCTIVE PULMONARY DISEASE, U 06/27/2019 MAYURI PETERSONINE E DELIMBER OPERATOR Ot J84.10 PULMONARY FIBROSIS, UNSPECIFIED 06/27/2019 MAYURI PETERSONINE E DELIMBER OPERATOR Ot J90 PLEURAL EFFUSION, NOT ELSEWHERE CLASSIFI 06/27/2019 MAYURI PETERSONINE Sabina DELIMBER OPERATOR Ot R06.00 DYSPNEA, UNSPECIFIED 06/27/2019 MAYURI PETERSONINE E DELIMBER OPERATOR Ot R91.8 OTHER NONSPECIFIC ABNORMAL FINDING OF [place] 06/27/2019 SRIKANTH PETERSON DELIMBER OPERATOR Ot Z72.0 TOBACCO USE 06/27/2019 MAYURI PETERSONINE E DELIMBER OPERATOR Ot G47.33 OBSTRUCTIVE SLEEP APNEA (ADULT) (PEDIATR 06/27/2019 MAYURI PETERSONINE E DELIMBER OPERATOR Ot I50.31 ACUTE DIASTOLIC (CONGESTIVE) HEART FAILU 06/27/2019 MAYURI PETERSONINE Sabina DELIMBER OPERATOR Ot J43.8 OTHER EMPHYSEMA 06/27/2019 MAYURI PETERSONINE Sabina DELIMBER OPERATOR Ot J90 PLEURAL EFFUSION, NOT ELSEWHERE CLASSIFI 06/27/2019 MAYURI PETERSONINE E DELIMBER OPERATOR Ot R91.8 OTHER NONSPECIFIC ABNORMAL FINDING OF [place] 06/27/2019 SRIKANTH PETERSON DELIMBER OPERATOR Ot Z72.0 TOBACCO USE 06/27/2019 MAYURI PETERSONINE Sabina DELIMBER OPERATOR Ot B37.0 CANDIDAL STOMATITIS 06/27/2019 SRIKANTH PETERSON DELIMBER OPERATOR Ot G47.10 HYPERSOMNIA, UNSPECIFIED 06/27/2019 MAYURI PETERSONINE E DELIMBER OPERATOR Ot G47.33 OBSTRUCTIVE SLEEP APNEA (ADULT) (PEDIATR 06/27/2019 MAYURI PETERSONINE E DELIMBER OPERATOR Ot I50.31 ACUTE DIASTOLIC (CONGESTIVE) HEART FAILU 06/27/2019 MAYURI PETERSONINE E DELIMBER OPERATOR Ot I51.7 CARDIOMEGALY 06/27/2019 MAYURI PETERSONINE E DELIMBER OPERATOR Ot I87.8 OTHER SPECIFIED DISORDERS OF VEINS 06/27/2019 SRIKANTH PETERSON APRN Ot J43.8 OTHER EMPHYSEMA 06/27/2019 SRIKANTH PETERSON DELIMBER OPERATOR Ot J90 PLEURAL EFFUSION, NOT ELSEWHERE CLASSIFI 06/27/2019 SRIKANTH PETERSON APRN Ot Z72.0 TOBACCO USE 06/27/2019 Ot J44.9 RESIDENTIAL LIFE DIRECTOR YARELI OBSTRUCTIVE PULMONARY DISEASE, U 06/27/2019 Ot J90 PLEURA L EFFUSION, NOT ELSEWHERE CLASSIFI 06/27/2019 Ot R91.8 OTHE R NONSPECIFIC ABNORMAL FINDING OF QUI[place] 06/27/2019 Ot Z72.0 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 33 OBSTRUCTIVE SLEEP APNEA (ADULT) (PEDIATR 06/27/2019 TANMAY MAI DO Ot I25. 10 ATHSCL HEART DISEASE OF [place] CORONARY 06/27/2019 TANMAY MAI DO Ot I50. 31 ACUTE DIASTOLIC (CONGESTIVE) HEART FAILU 06/27/2019 TANMAY MAI DO Ot J44. 9 CHRONIC OBSTRUCTIVE PULMONARY DISEASE, U 06/27/2019 TANMAY MAI DO Ot J84. 9 INTERSTITIAL PULMONARY DISEASE, UNSPECIF 06/27/2019 TANMAY MAI DO Ot J90 PLEURAL EFFUSION, NOT ELSEWHERE CLASSIFI 06/27/2019 TANMAY MAI DO Ot R91. 8 OTHER NONSPECIFIC ABNORMAL FINDING OF [place] 06/27/2019 TANMAY MAI DO Ot Z72. 0 TOBACCO USE 06/27/2019 TANMAY MAI DO Ot Z79. 82 NURSING HOME (CURRENT) USE OF ASPIRIN 06/27/2019 TANMAY MAI DO Ot Z79.899 OTHER NURSING HOME (CURRENT) DRUG THERAPY 06/27/2019 SRIKANTH PETERSON APRN Ot B37.0 CANDIDAL STOMATITIS 06/27/2019 SRIKANTH PETERSON APRN Ot G47.10 HYPERSOMNIA, UNSPECIFIED 06/27/2019 SRIKANTH PETERSON APRN Ot G47.33 OBSTRUCTIVE SLEEP APNEA (ADULT) (PEDIATR 06/27/2019 SRIKANTH PETERSON DELIMBER OPERATOR Ot I25.10 ATHSCL HEART DISEASE OF [place] CORONARY 06/27/2019 SRIKANTH PETERSON DELIMBER OPERATOR Ot I50.31 ACUTE DIASTOLIC (CONGESTIVE) HEART FAILU 06/27/2019 KRISTEN, SRIKANTH E DELIMBER OPERATOR Ot I51.7 CARDIOMEGALY 06/27/2019 MAYURI PETERSONINE E DELIMBER OPERATOR Ot J44.9 CHRONIC OBSTRUCTIVE PULMONARY DISEASE, U 06/27/2019 MAYURI PETERSONINE E DELIMBER OPERATOR Ot J84.9 INTERSTITIAL PULMONARY DISEASE, UNSPECIF 06/27/2019 KRISTEN SRIKANTH E DELIMBER OPERATOR Ot J90 PLEURAL EFFUSION, NOT ELSEWHERE CLASSIFI 06/27/2019 MAYURI PETERSONINE E DELIMBER OPERATOR Ot J98.4 OTHER DISORDERS OF LUNG 06/27/2019 MAYURI PETERSONINE E DELIMBER OPERATOR Ot K63.89 OTHER SPECIFIED DISEASES OF INTESTINE 06/27/2019 KRISTEN SRIKANTH E DELIMBER OPERATOR Ot Z72.0 TOBACCO USE 06/27/2019 GAUTAM CULLEN, ELMER Rodriges Ot J44. 9 CHRONIC OBSTRUCTIVE PULMONARY DISEASE, U 06/27/2019 GAUTAM CULLEN, ELMER Rodriges Ot R41. 82 ALTERED MENTAL STATUS, UNSPECIFIED 06/27/2019 ELMER FLOREZ MD Ot R53. 1 WEAKNESS 06/27/2019 MAYURI PETERSONINE E DELIMBER OPERATOR Ot G47.10 HYPERSOMNIA, UNSPECIFIED 06/27/2019 KRISTEN SRIKANTH E DELIMBER OPERATOR Ot G47.33 OBSTRUCTIVE SLEEP APNEA (ADULT) (PEDIATR 06/27/2019 KRISTEN SRIKANTH E DELIMBER OPERATOR Ot I50.31 ACUTE DIASTOLIC (CONGESTIVE) HEART FAILU 06/27/2019 MAYURI PETERSONINE E DELIMBER OPERATOR Ot J43.8 OTHER EMPHYSEMA 06/27/2019 KRISTEN SRIKANTH E DELIMBER OPERATOR Ot J84.9 INTERSTITIAL PULMONARY DISEASE, UNSPECIF 06/27/2019 MAYURI PETERSONINE E DELIMBER OPERATOR Ot R06.00 DYSPNEA, UNSPECIFIED 06/27/2019 KRISTEN SRIKANTH E DELIMBER OPERATOR Ot R91.8 OTHER NONSPECIFIC ABNORMAL FINDING OF [place] 06/27/2019 MAYURI PETERSONINE E DELIMBER OPERATOR Ot Z72.0 TOBACCO USE 06/27/2019 MAYURI PETERSONINE E DELIMBER OPERATOR Ot J44.9 CHRONIC OBSTRUCTIVE PULMONARY DISEASE, U 06/27/2019 MAYURI PETERSONINE E DELIMBER OPERATOR Ot J84.9 INTERSTITIAL PULMONARY DISEASE, UNSPECIF 06/27/2019 KRISTEN SRIKANTH E DELIMBER OPERATOR Ot Z72.0 TOBACCO USE 06/27/2019 LEMER FLOREZ MD Ot J44. 9 CHRONIC OBSTRUCTIVE PULMONARY DISEASE, U 06/27/2019 MAYURI PETERSONINE E DELIMBER OPERATOR Ot G47.33 OBSTRUCTIVE SLEEP APNEA (ADULT) (PEDIATR 06/27/2019 SRIKANTH PETERSON APRN Ot J47.9 BRONCHIECTASIS, UNCOMPLICATED 06/27/2019 SRIKANTH PETERSON APRN Ot J84.10 PULMONARY FIBROSIS, UNSPECIFIED 06/27/2019 SRIKANTH PETERSON APRN Ot J98.4 OTHER DISORDERS OF LUNG 06/27/2019 SRIKANTH PETERSON APRN Ot R06.00 DYSPNEA, UNSPECIFIED 06/27/2019 SRIKANTH PETERSON APRN Ot R91.8 OTHER NONSPECIFIC ABNORMAL FINDING OF QUIQUE 06/27/2019 SRIKANTH PETERSON APRN Ot Z72.0 TOBACCO USE 06/27/2019 SRIKANTH PETERSON APRN Ot J44.9 CHRONIC OBSTRUCTIVE PULMONARY DISEASE, U 06/27/2019 SRIKANTH PETERSON APRN Ot J84.10 PULMONARY FIBROSIS, UNSPECIFIED 06/27/2019 RAYMOND HESS MD Ot F41.9 ANXIETY DISORDER, UNSPECIFIED 06/27/2019 RAYMOND HESS MD Ot G47.33 OBSTRUCTIVE SLEEP APNEA (ADULT) (PEDIATR 06/27/2019 RAYMOND HESS MD Ot G56.02 CARPAL TUNNEL SYNDROME, LEFT UPPER LIMB 06/27/2019 RAYMOND HESS MD Ot G56.22 LESION OF ULNAR NERVE, LEFT UPPER LIMB 06/27/2019 RAYMOND HESS MD Ot I1 0 ESSENTIAL (PRIMARY) HYPERTENSION 06/27/2019 RAYMOND HESS MD Ot I25.10 ATHSCL HEART DISEASE OF [place] CORONARY 06/27/2019 RAYMOND HESS MD Ot I48.91 UNSPECIFIED ATRIAL FIBRILLATION 06/27/2019 RAYMOND HESS MD Ot J44.9 CHRONIC OBSTRUCTIVE PULMONARY DISEASE, U 06/27/2019 RAYMOND HESS MD Ot K21.9 GASTRO-ESOPHAGEAL REFLUX DISEASE WITHOUT 06/27/2019 RAYMOND HESS MD Ot Z79.01 NURSING HOME (CURRENT) USE OF ANTICOAGULANT 06/27/2019 RAYMOND HESS MD Ot Z79.82 NURSING HOME (CURRENT) USE OF ASPIRIN 06/27/2019 RAYMOND HESS MD Ot Z79.899 OTHER NURSING HOME (CURRENT) DRUG THERAPY 06/27/2019 RAYMOND HESS MD Ot Z87.891 PERSONAL HISTORY OF NICOTINE DEPENDENCE 06/27/2019 RAYMOND HESS MD, Ot Z88.2 ALLERGY STATUS TO SULFONAMIDES STATUS 06/27/2019 RAYMOND HESS MD, Ot Z88.5 ALLERGY STATUS TO NARCOTIC AGENT STATUS 06/27/2019 RAYMOND HESS MD, Ot Z88.8 ALLERGY STATUS TO OTH DRUG/MEDS/BIOL SUB 06/27/2019 RAYMOND HESS MD Ot Z90.49 ACQUIRED ABSENCE OF OTHER SPECIFIED PART 06/27/2019 RAYMOND HESS MD Ot Z90.89 ACQUIRED ABSENCE OF OTHER ORGANS 06/29/2019 RAYMOND HESS MD, Ot F41.9 ANXIETY DISORDER, UNSPECIFIED 06/29/2019 RAYMNOD HESS MD, Ot G47.33 OBSTRUCTIVE SLEEP APNEA (ADULT) (PEDIATR 06/29/2019 RAYMOND HESS MD, Ot G56.02 CARPAL TUNNEL SYNDROME, LEFT UPPER LIMB 06/29/2019 RAYMOND HESS MD, Ot G56.22 LESION OF ULNAR NERVE, LEFT UPPER LIMB 06/29/2019 RAYMOND HESS MD, Ot I1 0 ESSENTIAL (PRIMARY) HYPERTENSION 06/29/2019 RAYMOND HESS MD, Ot I25.10 ATHSCL HEART DISEASE OF [place] CORONARY 06/29/2019 RAYMOND HESS MD, Ot I48.91 UNSPECIFIED ATRIAL FIBRILLATION 06/29/2019 RAYMOND HESS MD, Ot J44.9 CHRONIC OBSTRUCTIVE PULMONARY DISEASE, U 06/29/2019 RAYMOND HESS MD, Ot K21.9 GASTRO-ESOPHAGEAL REFLUX DISEASE WITHOUT 06/29/2019 RAYMOND HESS MD, Ot Z79.01 SUPERVISOR CELLARS (CURRENT) USE OF ANTICOAGULANT 06/29/2019 RAYMOND HESS MD Ot Z79.82 NURSING HOME (CURRENT) USE OF ASPIRIN 06/29/2019 RAYMOND HESS MD, Ot Z79.899 OTHER SUPERVISOR CELLARS (CURRENT) DRUG THERAPY 06/29/2019 RAYMOND HESS MD, Ot Z87.891 PERSONAL HISTORY OF NICOTINE DEPENDENCE 06/29/2019 RAYMOND HESS MD, Ot Z88.2 ALLERGY STATUS TO SULFONAMIDES STATUS 06/29/2019 RAYMOND HESS MD Ot Z88.5 ALLERGY STATUS TO NARCOTIC AGENT STATUS 06/29/2019 RAYMOND HESS MD Ot Z88.8 ALLERGY STATUS TO OTH DRUG/MEDS/BIOL SUB 06/29/2019 RAYMOND HESS MD, Ot Z90.49 ACQUIRED ABSENCE OF OTHER SPECIFIED PART 06/29/2019 RAYMOND HESS MD, Ot Z90.89 ACQUIRED ABSENCE OF OTHER ORGANS 06/30/2019 RAYMOND HESS MD, Ot F41.9 ANXIETY DISORDER, UNSPECIFIED 06/30/2019 RAYMOND HESS MD, Ot G47.33 OBSTRUCTIVE SLEEP APNEA (ADULT) (PEDIATR 06/30/2019 RAYMOND HESS MD, Ot G56.02 CARPAL TUNNEL SYNDROME, LEFT UPPER LIMB 06/30/2019 RAYMOND HESS MD, Ot G56.22 LESION OF ULNAR NERVE, LEFT UPPER LIMB 06/30/2019 RAYMOND HESS MD, Ot I1 0 ESSENTIAL (PRIMARY) HYPERTENSION 06/30/2019 RAYMOND HESS MD, Ot I25.10 ATHSCL HEART DISEASE OF [place] CORONARY 06/30/2019 RAYMOND HESS MD, Ot I48.91 UNSPECIFIED ATRIAL FIBRILLATION 06/30/2019 RAYMOND HESS MD, Ot J44.9 CHRONIC OBSTRUCTIVE PULMONARY DISEASE, U 06/30/2019 RAYMOND HESS MD, Ot K21.9 GASTRO-ESOPHAGEAL REFLUX DISEASE WITHOUT 06/30/2019 RAYMOND HESS MD, Ot Z79.01 SUPERVISOR CELLARS (CURRENT) USE OF ANTICOAGULANT 06/30/2019 RAYMOND HESS MD, Ot Z79.82 SUPERVISOR CELLARS (CURRENT) USE OF ASPIRIN 06/30/2019 RAYMOND HESS MD, Ot Z79.899 OTHER NURSING HOME (CURRENT) DRUG THERAPY 06/30/2019 RAYMOND HESS MD, Ot Z87.891 PERSONAL HISTORY OF NICOTINE DEPENDENCE 06/30/2019 RAYMOND HESS MD, Ot Z88.2 ALLERGY STATUS TO SULFONAMIDES STATUS 06/30/2019 RAYMOND HESS MD, Ot Z88.5 ALLERGY STATUS TO NARCOTIC AGENT STATUS 06/30/2019 RAYMNOD HESS MD, Ot Z88.8 ALLERGY STATUS TO OTH DRUG/MEDS/BIOL SUB 06/30/2019 RAYMOND HESS MD, Ot Z90.49 ACQUIRED ABSENCE OF OTHER SPECIFIED PART 06/30/2019 RAYMOND HESS MD, Ot Z90.89 ACQUIRED ABSENCE OF OTHER ORGANS 08/27/2019 GAUTAM CULLEN, ELMER Rodriges Ot N17. 9 ACUTE KIDNEY FAILURE, UNSPECIFIED 08/27/2019 GAUTAM CULLEN, ELMER Rodriges Ot N28. 1 CYST OF KIDNEY, ACQUIRED 09/13/2019 GAUTAM CULLEN, ELMER Rodriges Ot N17. 9 ACUTE KIDNEY FAILURE, UNSPECIFIED 09/13/2019 GAUTAM CULLEN, ELMER Rodriges Ot N28. 1 CYST OF KIDNEY, ACQUIRED 09/20/2019 GAUTAM CULLEN, ELMER Rodriges Ot N17. 9 ACUTE KIDNEY FAILURE, UNSPECIFIED 09/20/2019 ELMER FLOREZ MD Ot N28. 1 CYST OF KIDNEY, ACQUIRED 10/11/2019 CARMINE CULLEN, AVINASH Ot I12 .9 HYPERTENSIVE CHRONIC KIDNEY DISEASE W ST 10/11/2019 CARMINE CULLEN, AVINASH Ot N18 .3 CHRONIC KIDNEY DISEASE, STAGE 3 (MODERAT 10/11/2019 CARMINE CULLEN, AVINASH Ot N28 .1 CYST OF KIDNEY, ACQUIRED 10/11/2019 AVINASH LOU MD Ot R60 .0 LOCALIZED EDEMA 10/11/2019 AVINASH LOU MD Ot Z79 .1 NURSING HOME (CURRENT) USE OF NON-STEROIDAL 10/15/2019 AVINASH LOU MD Ot I12 .9 HYPERTENSIVE CHRONIC KIDNEY DISEASE W ST 10/15/2019 CARMINE CULLEN, AVINASH Ot N18 .3 CHRONIC KIDNEY DISEASE, STAGE 3 (MODERAT 10/15/2019 AVINASH LOU MD Ot N28 .1 CYST OF KIDNEY, ACQUIRED 10/15/2019 AVINASH LOU MD Ot R60 .0 LOCALIZED EDEMA 10/15/2019 AVINASH LOU MD Ot Z79 .1 NURSING HOME (CURRENT) USE OF NON-STEROIDAL Procedures Code Description Performed By Per formed On [id number] DI LATION OF ESOPHAGUS, ENDO 12/27/2018 [id number] EX CISION OF ESOPHAGOGASTRIC JUNCTION, EN 12/27/2018 [id number] EX CISION OF STOMACH, PYLORUS, ENDO, DIAG 12/27/2018 [id number] IN SPECTION OF LOWER INTESTINAL TRACT, EN 12/27/2018 Results Test Result Range Automated blood complete blood count (he mogram) panel - 05/18/16 07:26 Blood leukocytes automated count (number/volume) 7.0 10*3/uL 4.3-11.0 Blood erythrocytes automated count (number/volume) 4.78 10*6/uL 4.35-5.85 Venous blood hemoglobin measurement (mass/volume) 17.0 g/dL 13.3-17.7 Blood hematocrit (volume fraction) 49 % 40-54 Automated erythrocyte mean corpuscular volume 102 [foz_us] 80-99 Automated erythrocyte mean corpuscular h emoglobin (mass per erythrocyte) 36 pg 25-34 Automated erythrocyte mean corpuscular h emoglobin concentration measurement (mass/volume) 35 g/dL 32-36 Automated erythrocyte distribution width ratio 13. 2 % 10.0- 14.5 Automated blood platelet count (count/volume) 222 10*3/uL 130-400 Automated blood platelet mean volume measurement 10.8 [foz_us] 7.4-10.4 PT panel in platelet poor plasma by coag ulation assay - 05/18/16 07:26 Prothrombin time (PT) in platelet poor plasma by coagu lation assay 12.5 s 12.2-14.7 INR in platelet poor plasma or blood by coagulation as say 1.0 0.8-1.4 Activated partial thromboplastin time (a PTT) in platelet poor plasma bycoagulation assay - 05/18/16 07:26 Activated partial thromboplastin time (a PTT) in platelet poor plasma bycoagulation assay 28 s 24-35 Comprehensive metabolic panel - 05/18/16 07:26 Serum or plasma sodium measurement (moles/volume) 139 mmol/L 135-145 Serum or plasma potassium measurement (moles/volume) 3.0 mmol/L 3.6-5.0 Serum or plasma chloride measurement (moles/volume) 92 mmol/L 98-107 Carbon dioxide 34 mmol/L 21-32 Serum or plasma anion gap determination (moles/volume) 13 mmol/L 5-14 Serum or plasma urea nitrogen measurement (mass/volume ) 7 mg/dL 7-18 Serum or plasma creatinine measurement (mass/volume) 1.17 mg/dL 0.60-1.30 Serum or plasma urea nitrogen/creatinine mass ratio 6 NRG Serum or plasma creatinine measurement w ith calculation of estimated glomerular filtration rate > NRG Serum or plasma glucose measurement (mass/volume) 109 mg/dL 70-105 Serum or plasma calcium measurement (mass/volume) 9.1 mg/dL 8.5-10.1 Serum or plasma total bilirubin measurement (mass/volu me) 0.8 mg/dL 0.1-1.0 Serum or plasma alkaline phosphatase fernie surement (enzymatic activity/volume) 112 U/L 40-136 Serum or plasma aspartate aminotransfera se measurement (enzymatic activity/volume) 25 U/L 5-34 Serum [...] Serum or plasma cholesterol in HDL measurement (mass/v olume) 41 mg/dL 40-60 Cholesterol in LDL [mass/volume] in serum or plasma by direct assay 127 mg/dL 1-129 Serum or plasma cholesterol in VLDL measurement (mass/ volume) 42 mg/dL 5-40 Methicillin resistant Staphylococcus aur eus (MRSA) screening culture - 05/18/16 07:26 Methicillin resistant Staphylococcus aureus (MRSA) scr eening culture NEG NRG Automated blood complete blood count (he mogram) panel - 05/19/16 04:02 Blood leukocytes automated count (number/volume) 4.1 10*3/uL 4.3-11.0 Blood erythrocytes automated count (number/volume) 3.99 10*6/uL 4.35-5.85 Venous blood hemoglobin measurement (mass/volume) 14.5 g/dL 13.3-17.7 Blood hematocrit (volume fraction) 40 % 40-54 Automated erythrocyte mean corpuscular volume 101 [foz_us] 80-99 Automated erythrocyte mean corpuscular h emoglobin (mass per erythrocyte) 36 pg 25-34 Automated erythrocyte mean corpuscular h emoglobin concentration measurement (mass/volume) 36 g/dL 32-36 Automated erythrocyte distribution width ratio 13. 0 % 10.0- 14.5 Automated blood platelet count (count/volume) 134 10*3/uL 130-400 Automated blood platelet mean volume measurement 11.3 [foz_us] 7.4-10.4 Whole blood basic metabolic panel - 04/26 09/08 04:02 Serum or plasma sodium measurement (moles/volume) 136 mmol/L 135-145 Serum or plasma potassium measurement (moles/volume) 2.8 mmol/L 3.6-5.0 Serum or plasma chloride measurement (moles/volume) 96 mmol/L 98-107 Carbon dioxide 29 mmol/L 21-32 Serum or plasma anion gap determination (moles/volume) 11 mmol/L 5-14 Serum or plasma urea nitrogen measurement (mass/volume ) 8 mg/dL 7-18 Serum or plasma creatinine measurement (mass/volume) 0.91 mg/dL 0.60-1.30 Serum or plasma urea nitrogen/creatinine mass ratio 9 NRG Serum or plasma creatinine measurement w ith calculation of estimated glomerular filtration rate > NRG Serum or plasma glucose measurement (mass/volume) 96 mg/dL 70-105 Serum or plasma calcium measurement (mass/volume) 8.3 mg/dL 8.5-10.1 Whole blood basic metabolic panel - 04/27 09:54 Serum or plasma sodium measurement (moles/volume) 138 mmol/L 135-145 Serum or plasma potassium measurement (moles/volume) 3.3 mmol/L 3.6-5.0 Serum or plasma chloride measurement (moles/volume) 97 mmol/L 98-107 Carbon dioxide 26 mmol/L 21-32 Serum or plasma anion gap determination (moles/volume) 15 mmol/L 5-14 Serum or plasma urea nitrogen measurement (mass/volume ) 6 mg/dL 7-18 Serum or plasma creatinine measurement (mass/volume) 1.07 mg/dL 0.60-1.30 Serum or plasma urea nitrogen/creatinine mass ratio 6 NRG Serum or plasma creatinine measurement w ith calculation of estimated glomerular filtration rate > NRG Serum or plasma glucose measurement (mass/volume) 110 mg/dL 70-105 Serum or plasma calcium measurement (mass/volume) 8.9 mg/dL 8.5-10.1 Magnesium - 05/24/16 09:54 Magnesium 1.5 mg/dL 1.8-2.4 Sputum Gram stain - 03/23/18 08:30 Sputum Gram stain 03-24-2018, 604. NRG Bacteria identification in bronchial spe cimen by aerobe culture - 03/23/18 08:30 QUANTITY OF GROWTH . NRG Bacteria identification in bronchial specimen by aerob e culture USUAL ORAL NRG FTX;REPORTABLE 2,000 CFU/ML NRG C FUNGUS SPUTUM FLUID TISSUE - 03/23/18 08:30 C FUNGUS SPUTUM FLUID TISSUE NG N RG Mycobacterium species detection by organ ism specific culture - 03/23/18 08:30 QUANTITY OF GROWTH . NRG Mycobacterium species detection by organism specific c ulture SEE COMMEN NRG Sputum Gram stain - 03/23/18 08:31 Sputum Gram stain 03-24-2018, 1005. NRG Bacteria identification in bronchial spe cimen by aerobe culture - 03/23/18 08:31 Bacteria identification in bronchial specimen by aerob e culture NG NRG C FUNGUS SPUTUM FLUID TISSUE - 03/23/18 08:31 C FUNGUS SPUTUM FLUID TISSUE NG N RG Mycobacterium species detection by organ ism specific culture - 03/23/18 08:31 QUANTITY OF GROWTH . NRG Mycobacterium species detection by organism specific c ulture SEE COMMEN NRG C FUNGUS SPUTUM FLUID TISSUE - 03/23/18 08:32 C FUNGUS SPUTUM FLUID TISSUE NG N RG Complete blood count (CBC) with automate d white blood cell (WBC) differential - 08/30/18 10:00 Blood leukocytes automated count (number/volume) 5.4 10*3/uL 4.3-11.0 Blood erythrocytes automated count (number/volume) 3.72 10*6/uL 4.35-5.85 Venous blood hemoglobin measurement (mass/volume) 14.1 g/dL 13.3-17.7 Blood hematocrit (volume fraction) 41 % 40-54 Automated erythrocyte mean corpuscular volume 109 [foz_us] 80-99 Automated erythrocyte mean corpuscular h emoglobin (mass per erythrocyte) 38 pg 25-34 Automated erythrocyte mean corpuscular h emoglobin concentration measurement (mass/volume) 35 g/dL 32-36 Automated erythrocyte distribution width ratio 17. 1 % 10.0- 14.5 Automated blood platelet count [...] 10*3 1.0-4.0 Blood monocytes automated count (number/volume) 0. 7 10*3 0.0-1.0 Automated eosinophil count 0.2 10*3/uL 0 .0-0.3 Automated blood basophil count (count/volume) 0.0 10*3/uL 0.0-0.1 Comprehensive metabolic panel - 08/30/18 10:00 Serum or plasma sodium measurement (moles/volume) 137 mmol/L 135-145 Serum or plasma potassium measurement (moles/volume) 4.2 mmol/L 3.6-5.0 Serum or plasma chloride measurement (moles/volume) 100 mmol/L 98-107 Carbon dioxide 27 mmol/L 21-32 Serum or plasma anion gap determination (moles/volume) 10 mmol/L 5-14 Serum or plasma urea nitrogen measurement (mass/volume ) 6 mg/dL 7-18 Serum or plasma creatinine measurement (mass/volume) 0.90 mg/dL 0.60-1.30 Serum or plasma urea nitrogen/creatinine mass ratio 7 NRG Serum or plasma creatinine measurement w ith calculation of estimated glomerular filtration rate > NRG Serum or plasma glucose measurement (mass/volume) 119 mg/dL 70-105 Serum or plasma calcium measurement (mass/volume) 9.3 mg/dL 8.5-10.1 Serum or plasma total bilirubin measurement (mass/volu me) 2.1 mg/dL 0.1-1.0 Serum or plasma alkaline phosphatase fernie surement (enzymatic activity/volume) 117 U/L 40-136 Serum or plasma aspartate aminotransfera se measurement (enzymatic activity/volume) 67 U/L 5-34 Serum or plasma alanine aminotransferase measurement (enzymatic activity/volume) 35 U/L 0-55 Serum or plasma protein measurement (mass/volume) 6.7 g/dL 6.4-8.2 Serum or plasma albumin measurement (mass/volume) 3.6 g/dL 3.2-4.5 CALCIUM CORRECTED 9.6 mg/dL 8.5-10.1 Ammonia - 08/30/18 10:00 Ammonia 26 umol/L 11-32 Arterial blood gas measurement - 9 10:22 Blood pCO2 37 mm[Hg] 35-45 Blood pO2 104 mm[Hg] 79-93 Arterial blood bicarbonate measurement (moles/volume) 25 mmol/L 23-27 Arterial blood base excess by calculation 1.5 mmol /L -2.5-2.5 Arterial blood oxygen saturation measurement 99 % 94-100 * Inhaled oxygen flow rate 2 NRG Arterial blood pH measurement with patient temperature correction 7.44 7.37-7.43 Arterial blood carbon dioxide, total measurement (mole s/volume) 26.6 mmol/L 21.0-31.0 Body site R RAD NRG Assessment of wrist artery patency prior to arterial p uncture YES-POS NRG Setting of ventilation mode NO NR G Measurement of body temperature 97.1 NRG Automated blood complete blood count (he mogram) panel - 09/19/18 07:26 Blood leukocytes automated count (number/volume) 8.5 10*3/uL 4.3-11.0 Blood erythrocytes automated count (number/volume) 3.81 10*6/uL 4.35-5.85 Venous blood hemoglobin measurement (mass/volume) 14.9 g/dL 13.3-17.7 Blood hematocrit (volume fraction) 41 % 40-54 Automated erythrocyte mean corpuscular volume 108 [foz_us] 80-99 Automated erythrocyte mean corpuscular h emoglobin (mass per erythrocyte) 39 pg 25-34 Automated erythrocyte mean corpuscular h emoglobin concentration measurement (mass/volume) 36 g/dL 32-36 Automated erythrocyte distribution width ratio 15. 1 % 10.0- 14.5 Automated blood platelet count (count/volume) 171 10*3/uL 130-400 Automated blood platelet mean volume measurement 11.1 [foz_us] 7.4-10.4 PT panel in platelet poor plasma by coag ulation assay - 09/19/18 07:26 Prothrombin time (PT) in platelet poor plasma by coagu lation assay 14.4 s 12.2-14.7 INR in platelet poor plasma or blood by coagulation as say 1.1 0.8-1.4 Activated partial thromboplastin time (a PTT) in platelet poor plasma bycoagulation assay - 09/19/18 07:26 Activated partial thromboplastin time (a PTT) in platelet poor plasma bycoagulation assay 33 s 24-35 Comprehensive metabolic panel - 09/19/18 07:26 Serum or plasma sodium measurement (moles/volume) 135 mmol/L 135-145 Serum or plasma potassium measurement (moles/volume) 3.8 mmol/L 3.6-5.0 Serum or plasma chloride measurement (moles/volume) 98 mmol/L 98-107 Carbon dioxide 25 mmol/L 21-32 Serum or plasma anion gap determination (moles/volume) 12 mmol/L 5-14 Serum or plasma urea nitrogen measurement (mass/volume ) 5 mg/dL 7-18 Serum or plasma creatinine measurement (mass/volume) 1.07 mg/dL 0.60-1.30 Serum or plasma urea nitrogen/creatinine mass ratio 5 NRG Serum or plasma creatinine measurement w ith calculation of estimated glomerular filtration rate > NRG Serum or plasma glucose measurement (mass/volume) 129 mg/dL 70-105 Serum or plasma calcium measurement (mass/volume) 9.3 mg/dL 8.5-10.1 Serum or plasma total bilirubin measurement (mass/volu me) 1.2 mg/dL 0.1-1.0 Serum or plasma alkaline phosphatase fernie surement (enzymatic activity/volume) 121 U/L 40-136 Serum or plasma aspartate aminotransfera se measurement (enzymatic activity/volume) 55 U/L 5-34 Serum [...] Serum or plasma cholesterol in HDL measurement (mass/v olume) 38 mg/dL 40-60 Cholesterol in LDL [mass/volume] in serum or plasma by direct assay 100 mg/dL 1-129 Serum or plasma cholesterol in VLDL measurement (mass/ volume) 28 mg/dL 5-40 Methicillin resistant Staphylococcus aur eus (MRSA) screening culture - 09/19/18 07:26 Methicillin resistant Staphylococcus aureus (MRSA) scr eening culture NEG NRG Complete blood count (CBC) with automate d white blood cell (WBC) differential - 12/23/18 16:31 Blood leukocytes automated count (number/volume) 7.8 10*3/uL 4.3-11.0 Blood erythrocytes automated count (number/volume) 3.06 10*6/uL 4.35-5.85 Venous blood hemoglobin measurement (mass/volume) 11.3 g/dL 13.3-17.7 Blood hematocrit (volume fraction) 33 % 40-54 Automated erythrocyte mean corpuscular volume 108 [foz_us] 80-99 Automated erythrocyte mean corpuscular h emoglobin (mass per erythrocyte) 37 pg 25-34 Automated erythrocyte mean corpuscular h emoglobin concentration measurement (mass/volume) 34 g/dL 32-36 Automated erythrocyte distribution width ratio 14. 1 % 10.0- 14.5 Automated blood platelet count (count/volume) 175 10*3/uL 130-400 Automated blood platelet mean volume measurement 10.5 [foz_us] 7.4-10.4 Automated blood neutrophils/100 leukocytes 74 % 42-75 Automated blood lymphocytes/100 leukocytes 13 % 12-44 Blood monocytes/100 leukocytes 11 % 0-12 Automated blood eosinophils/100 leukocytes 1 % 0-10 Automated blood basophils/100 leukocytes 0 % 0-10 Blood neutrophils automated count (number/volume) 5.8 10*3 1.8-7.8 Blood lymphocytes automated count (number/volume) 1.0 10*3 1.0-4.0 Blood monocytes automated count (number/volume) 0. 9 10*3 0.0-1.0 Automated eosinophil count 0.1 10*3/uL 0 .0-0.3 Automated blood basophil count (count/volume) 0.0 10*3/uL 0.0-0.1 PT panel in platelet poor plasma by coag ulation assay - 12/23/18 16:31 Prothrombin time (PT) in platelet poor plasma by coagu lation assay 14.4 s 12.2-14.7 INR in platelet poor plasma or blood by coagulation as say 1.1 0.8-1.4 Comprehensive metabolic panel - 12/23/18 16:31 Serum or plasma sodium measurement (moles/volume) 133 mmol/L 135-145 Serum or plasma potassium measurement (moles/volume) 2.6 mmol/L 3.6-5.0 Serum or plasma chloride measurement (moles/volume) 90 mmol/L 98-107 Carbon dioxide 26 mmol/L 21-32 Serum or plasma anion gap determination (moles/volume) 17 mmol/L 5-14 Serum or plasma urea nitrogen measurement (mass/volume ) 10 mg/dL 7-18 Serum or plasma creatinine measurement (mass/volume) 0.95 mg/dL 0.60-1.30 Serum or plasma urea nitrogen/creatinine mass ratio 11 NRG Serum or plasma creatinine measurement w ith calculation of estimated glomerular filtration rate > NRG Serum or plasma glucose measurement (mass/volume) 128 mg/dL 70-105 Serum or plasma calcium measurement (mass/volume) 8.5 mg/dL 8.5-10.1 Serum or plasma total bilirubin measurement (mass/volu me) 1.5 mg/dL 0.1-1.0 Serum or plasma alkaline phosphatase fernie surement (enzymatic activity/volume) 116 U/L 40-136 Serum or plasma aspartate aminotransfera se measurement (enzymatic activity/volume) 21 U/L 5-34 Serum or plasma alanine aminotransferase measurement (enzymatic activity/volume) 10 U/L 0-55 Serum or plasma protein measurement (mass/volume) 6.4 g/dL 6.4-8.2 Serum or plasma albumin measurement (mass/volume) 3.2 g/dL 3.2-4.5 CALCIUM CORRECTED 9.1 mg/dL 8.5-10.1 Magnesium - 12/23/18 16:31 Magnesium 0.9 mg/dL 1.6-2.4 Serum or plasma troponin i.cardiac measu rement (mass/volume) - 12/23/18 16:31 Serum or plasma troponin i.cardiac measurement (mass/v olume) < ng/mL <0.028 Lipase - 12/23/18 16:31 Lipase 26 U/L 8-78 THYROID STIMULATING HORMONE - 12/23/18 1 6:31 THYROID STIMULATING HORMONE 2.35 u[iU]/mL 0.35-4.94 Serum or plasma thyroxine (T4) free don urement (mass/volume) - 12/23/18 16:31 Serum or plasma thyroxine (T4) free measurement (mass/ volume) 0.74 ng/dL 0.70-1.48 Serum or plasma ethanol measurement (mas s/volume) - 12/23/18 16:31 Serum or plasma ethanol measurement (mass/volume) < mg/dL <10 Serum or plasma lithium measurement (mol es/volume) - 12/23/18 16:31 BNP PT 529.5 pg/mL <100.0 Complete urinalysis with reflex to cultu re - 12/23/18 16:41 Urine color determination DARIA NRG Urine clarity determination CLEAR NR G Urine pH measurement by test strip 7 5-9 Specific gravity of urine by test strip 1.005 1.016-1.022 Urine protein assay by test strip, semi-quantitative 1+ NEGATIVE Urine glucose detection by automated test strip NE GATIVE NEGATIVE Erythrocytes detection in urine sediment by light micr oscopy 3+ NEGATIVE Urine ketones detection by automated test strip NE GATIVE NEGATIVE Urine nitrite detection by test strip NEGATIVE NEGATIVE Urine total bilirubin detection by test strip NEGA TIVE NEGATIVE Urine urobilinogen measurement by automated test strip (mass/volume) 4 mg/dL NORMAL Urine leukocyte esterase detection by dipstick 2+ NEGATIVE Automated urine sediment erythrocyte cou nt by microscopy (number/high power field) [HPF] NRG Automated urine sediment leukocyte count by microscopy (number/high power field) [HPF] NRG Bacteria detection in urine sediment by light microsco py NEGATIVE NRG Squamous epithelial cells detection in u rine sediment by light microscopy NONE NRG Crystals detection in urine sediment by light microsco py NONE NRG Casts detection in urine sediment by light microscopy NONE NRG Mucus detection in urine sediment by light microscopy NEGATIVE NRG Complete urinalysis with reflex to culture NO NRG Methicillin resistant Staphylococcus aur eus (MRSA) screening culture - 12/23/18 18:30 Methicillin resistant Staphylococcus aureus (MRSA) scr eening culture NEG NRG Complete blood count (CBC) with automate d white blood cell (WBC) differential - 12/24/18 03:19 Blood leukocytes automated count (number/volume) 6.0 10*3/uL 4.3-11.0 Blood erythrocytes automated count (number/volume) 2.47 10*6/uL 4.35-5.85 Venous blood hemoglobin measurement (mass/volume) 9.2 g/dL 13.3-17.7 Blood hematocrit (volume fraction) 27 % 40-54 Automated erythrocyte mean corpuscular volume 108 [foz_us] 80-99 Automated erythrocyte mean corpuscular h emoglobin (mass per erythrocyte) 37 pg 25-34 Automated erythrocyte mean corpuscular h emoglobin concentration measurement (mass/volume) 35 g/dL 32-36 Automated erythrocyte distribution width ratio 13. 9 % 10.0- 14.5 Automated blood platelet count (count/volume) 107 10*3/uL 130-400 Automated blood platelet mean volume measurement 11.0 [foz_us] 7.4-10.4 Automated blood neutrophils/100 leukocytes 75 % 42-75 Automated blood lymphocytes/100 leukocytes 15 % 12-44 Blood monocytes/100 leukocytes 9 % 0-12 Automated blood eosinophils/100 leukocytes 2 % 0-10 Automated blood basophils/100 leukocytes 0 % 0-10 Blood neutrophils automated count (number/volume) 4.5 10*3 1.8-7.8 Blood lymphocytes automated count (number/volume) 0.9 10*3 1.0-4.0 Blood monocytes automated count (number/volume) 0. 5 10*3 0.0-1.0 Automated eosinophil count 0.1 10*3/uL 0 .0-0.3 Automated blood basophil count (count/volume) 0.0 10*3/uL 0.0-0.1 Whole blood basic metabolic panel - 05/13 03:19 Serum or plasma sodium measurement (moles/volume) 134 mmol/L 135-145 Serum or plasma potassium measurement (moles/volume) 3.1 mmol/L 3.6-5.0 Serum or plasma chloride measurement (moles/volume) 95 mmol/L 98-107 Carbon dioxide 27 mmol/L 21-32 Serum or plasma anion gap determination (moles/volume) 12 mmol/L 5-14 Serum or plasma urea nitrogen measurement (mass/volume ) 9 mg/dL 7-18 Serum or plasma creatinine measurement (mass/volume) 0.75 mg/dL 0.60-1.30 Serum or plasma urea nitrogen/creatinine mass ratio 12 NRG Serum or plasma creatinine measurement w ith calculation of estimated glomerular filtration rate > NRG Serum or plasma glucose measurement (mass/volume) 148 mg/dL 70-105 Serum or plasma calcium measurement (mass/volume) 7.6 mg/dL 8.5-10.1 Serum or plasma phosphate measurement (m ass/volume) - 12/24/18 03:19 Serum or plasma phosphate measurement (mass/volume) 2.3 mg/dL 2.3-4.7 Magnesium - 12/24/18 03:19 Magnesium 2.8 mg/dL 1.6-2.4 OCCULT BLOOD STOOL - 12/24/18 20:45 Stool gastrointestinal hemoglobin detection NEGATI VE NEGATIVE Complete blood count (CBC) with automate d white blood cell (WBC) differential - 12/25/18 02:38 Blood leukocytes automated count (number/volume) 4.7 10*3/uL 4.3-11.0 Blood erythrocytes automated count (number/volume) 2.35 10*6/uL 4.35-5.85 Venous blood hemoglobin measurement (mass/volume) 8.6 g/dL 13.3-17.7 Blood hematocrit (volume fraction) 26 % 40-54 Automated erythrocyte mean corpuscular volume 111 [foz_us] 80-99 Automated erythrocyte mean corpuscular h emoglobin (mass per erythrocyte) 37 pg 25-34 Automated erythrocyte mean corpuscular h emoglobin concentration measurement (mass/volume) 33 g/dL 32-36 Automated erythrocyte distribution width ratio 14. 6 % 10.0- 14.5 Automated blood platelet count (count/volume) 98 1 0*3/uL 130-400 Automated blood platelet mean volume measurement 10.8 [foz_us] 7.4-10.4 Automated blood neutrophils/100 leukocytes 67 % 42-75 Automated blood lymphocytes/100 leukocytes 22 % 12-44 Blood monocytes/100 leukocytes 9 % 0-12 Automated blood eosinophils/100 leukocytes 2 % 0-10 Automated blood basophils/100 leukocytes 0 % 0-10 Blood neutrophils automated count (number/volume) 3.1 10*3 1.8-7.8 Blood lymphocytes automated count (number/volume) 1.0 10*3 1.0-4.0 Blood monocytes automated count (number/volume) 0. 4 10*3 0.0-1.0 Automated eosinophil count 0.1 10*3/uL 0 .0-0.3 Automated blood basophil count (count/volume) 0.0 10*3/uL 0.0-0.1 Whole blood basic metabolic panel - 06/13 02:38 Serum or plasma sodium measurement (moles/volume) 134 mmol/L 135-145 Serum or plasma potassium measurement (moles/volume) 4.2 mmol/L 3.6-5.0 Serum or plasma chloride measurement (moles/volume) 101 mmol/L 98-107 Carbon dioxide 26 mmol/L 21-32 Serum or plasma anion gap determination (moles/volume) 7 mmol/L 5-14 Serum or plasma urea nitrogen measurement (mass/volume ) 8 mg/dL 7-18 Serum or plasma creatinine measurement (mass/volume) 0.75 mg/dL 0.60-1.30 Serum or plasma urea nitrogen/creatinine mass ratio 11 NRG Serum or plasma creatinine measurement w ith calculation of estimated glomerular filtration rate > NRG Serum or plasma glucose measurement (mass/volume) 103 mg/dL 70-105 Serum or plasma calcium measurement (mass/volume) 7.2 mg/dL 8.5-10.1 Serum or plasma phosphate measurement (m ass/volume) - 12/25/18 02:38 Serum or plasma phosphate measurement (mass/volume) 1.7 mg/dL 2.3-4.7 Magnesium - 12/25/18 02:38 Magnesium 2.0 mg/dL 1.6-2.4 CA 19-9 - 12/25/18 02:38 CA 19-9 C 16 u[iU]/mL 0-37 Complete blood count (CBC) with automate d white blood cell (WBC) differential - 12/26/18 05:40 Blood leukocytes automated count (number/volume) 3.5 10*3/uL 4.3-11.0 Blood erythrocytes automated count (number/volume) 2.28 10*6/uL 4.35-5.85 Venous blood hemoglobin measurement (mass/volume) 8.6 g/dL 13.3-17.7 Blood hematocrit (volume fraction) 25 % 40-54 Automated erythrocyte mean corpuscular volume 111 [foz_us] 80-99 Automated erythrocyte mean corpuscular h emoglobin (mass per erythrocyte) 38 pg 25-34 Automated erythrocyte mean corpuscular h emoglobin concentration measurement (mass/volume) 34 g/dL 32-36 Automated erythrocyte distribution width ratio 14. 0 % 10.0- 14.5 Automated blood platelet count (count/volume) 89 1 0*3/uL 130-400 Automated blood platelet mean volume measurement 11.2 [foz_us] 7.4-10.4 Automated blood neutrophils/100 leukocytes 59 % 42-75 Automated blood lymphocytes/100 leukocytes 27 % 12-44 Blood monocytes/100 leukocytes 10 % 0-12 Automated blood eosinophils/100 leukocytes 4 % 0-10 Automated blood basophils/100 leukocytes 1 % 0-10 Blood neutrophils automated count (number/volume) 2.0 10*3 1.8-7.8 Blood lymphocytes automated count (number/volume) 0.9 10*3 1.0-4.0 Blood monocytes automated count (number/volume) 0. 3 10*3 0.0-1.0 Automated eosinophil count 0.1 10*3/uL 0 .0-0.3 Automated blood basophil count (count/volume) 0.0 10*3/uL 0.0-0.1 Whole blood basic metabolic panel - 07/11 05:40 Serum or plasma sodium measurement (moles/volume) 133 mmol/L 135-145 Serum or plasma potassium measurement (moles/volume) 3.9 mmol/L 3.6-5.0 Serum or plasma chloride measurement (moles/volume) 102 mmol/L 98-107 Carbon dioxide 24 mmol/L 21-32 Serum or plasma anion gap determination (moles/volume) 7 mmol/L 5-14 Serum or plasma urea nitrogen measurement (mass/volume ) 8 mg/dL 7-18 Serum or plasma creatinine measurement (mass/volume) 0.75 mg/dL 0.60-1.30 Serum or plasma urea nitrogen/creatinine mass ratio 11 NRG Serum or plasma creatinine measurement w ith calculation of estimated glomerular filtration rate > NRG Serum or plasma glucose measurement (mass/volume) 98 mg/dL 70-105 Serum or plasma calcium measurement (mass/volume) 7.4 mg/dL 8.5-10.1 Magnesium - 12/26/18 05:40 Magnesium 1.9 mg/dL 1.6-2.4 VITAMIN B 12 - 12/26/18 05:40 VITAMIN B 12 556 pg/mL 190-1100 Serum or plasma folate measurement (mass /volume) - 12/26/18 05:40 Serum or plasma folate measurement (mass/volume) 1 .9 % >=4.0 VITAMIN B 12 - 12/26/18 05:40 VITAMIN B 12 556 pg/mL 190-1100 Complete blood count (CBC) with automate d white blood cell (WBC) differential - 12/27/18 04:46 Blood leukocytes automated count (number/volume) 3.4 10*3/uL 4.3-11.0 Blood erythrocytes automated count (number/volume) 2.35 10*6/uL 4.35-5.85 Venous blood hemoglobin measurement (mass/volume) 8.7 g/dL 13.3-17.7 Blood hematocrit (volume fraction) 26 % 40-54 Automated erythrocyte mean corpuscular volume 111 [foz_us] 80-99 Automated erythrocyte mean corpuscular h emoglobin (mass per erythrocyte) 37 pg 25-34 Automated erythrocyte mean corpuscular h emoglobin concentration measurement (mass/volume) 34 g/dL 32-36 Automated erythrocyte distribution width ratio 13. 9 % 10.0- 14.5 Automated blood platelet count (count/volume) 120 10*3/uL 130-400 Automated blood platelet mean volume measurement 10.5 [foz_us] 7.4-10.4 Automated blood neutrophils/100 leukocytes 58 % 42-75 Automated blood lymphocytes/100 leukocytes 28 % 12-44 Blood monocytes/100 leukocytes 11 % 0-12 Automated blood eosinophils/100 leukocytes 3 % 0-10 Automated blood basophils/100 leukocytes 0 % 0-10 Blood neutrophils automated count (number/volume) 2.0 10*3 1.8-7.8 Blood lymphocytes automated count (number/volume) 0.9 10*3 1.0-4.0 Blood monocytes automated count (number/volume) 0. 4 10*3 0.0-1.0 Automated eosinophil count 0.1 10*3/uL 0 .0-0.3 Automated blood basophil count (count/volume) 0.0 10*3/uL 0.0-0.1 Whole blood basic metabolic panel - 08/11 04:46 Serum or plasma sodium measurement (moles/volume) 134 mmol/L 135-145 Serum or plasma potassium measurement (moles/volume) 3.6 mmol/L 3.6-5.0 Serum or plasma chloride measurement (moles/volume) 102 mmol/L 98-107 Carbon dioxide 24 mmol/L 21-32 Serum or plasma anion gap determination (moles/volume) 8 mmol/L 5-14 Serum or plasma urea nitrogen measurement (mass/volume ) 7 mg/dL 7-18 Serum or plasma creatinine measurement (mass/volume) 0.74 mg/dL 0.60-1.30 Serum or plasma urea nitrogen/creatinine mass ratio 9 NRG Serum or plasma creatinine measurement w ith calculation of estimated glomerular filtration rate > NRG Serum or plasma glucose measurement (mass/volume) 88 mg/dL 70-105 Serum or plasma calcium measurement (mass/volume) 7.6 mg/dL 8.5-10.1 Magnesium - 12/27/18 04:46 Magnesium 2.0 mg/dL 1.6-2.4 Complete blood count (CBC) with automate d white blood cell (WBC) differential - 01/02/19 11:50 Blood leukocytes automated count (number/volume) 5.3 10*3/uL 4.3-11.0 Blood erythrocytes automated count (number/volume) 2.60 10*6/uL 4.35-5.85 Venous blood hemoglobin measurement (mass/volume) 9.4 g/dL 13.3-17.7 Blood hematocrit (volume fraction) 28 % 40-54 Automated erythrocyte mean corpuscular volume 107 [foz_us] 80-99 Automated erythrocyte mean corpuscular h emoglobin (mass per erythrocyte) 36 pg 25-34 Automated erythrocyte mean corpuscular h emoglobin concentration measurement (mass/volume) 34 g/dL 32-36 Automated erythrocyte distribution width ratio 14. 2 % 10.0- 14.5 Automated blood platelet count (count/volume) 243 10*3/uL 130-400 Automated blood platelet mean volume measurement 9.9 [foz_us] 7.4-10.4 Automated blood neutrophils/100 leukocytes 60 % 42-75 Automated blood lymphocytes/100 leukocytes 23 % 12-44 Blood monocytes/100 leukocytes 15 % 0-12 Automated blood eosinophils/100 leukocytes 1 % 0-10 Automated blood basophils/100 leukocytes 0 % 0-10 Blood neutrophils automated count (number/volume) 3.2 10*3 1.8-7.8 Blood lymphocytes automated count (number/volume) 1.2 10*3 1.0-4.0 Blood monocytes automated count (number/volume) 0. 8 10*3 0.0-1.0 Automated eosinophil count 0.1 10*3/uL 0 .0-0.3 Automated blood basophil count (count/volume) 0.0 10*3/uL 0.0-0.1 PT panel in platelet poor plasma by coag ulation assay - 01/02/19 11:50 Prothrombin time (PT) in platelet poor plasma by coagu lation assay 14.3 s 12.2-14.7 INR in platelet poor plasma or blood by coagulation as say 1.1 0.8-1.4 Activated partial thromboplastin time (a PTT) in platelet poor plasma bycoagulation assay - 01/02/19 11:50 Activated partial thromboplastin time (a PTT) in platelet poor plasma bycoagulation assay 27 s 24-35 Fibrin D-dimer FEU measurement in platel et poor plasma (mass/volume) - 01/02/19 11:50 Fibrin D-dimer FEU measurement in platelet poor plasma (mass/volume) 0.98 ug/mL 0.00-0.49 Comprehensive metabolic panel - 01/02/19 11:50 Serum or plasma sodium measurement (moles/volume) 134 mmol/L 135-145 Serum or plasma potassium measurement (moles/volume) 3.7 mmol/L 3.6-5.0 Serum or plasma chloride measurement (moles/volume) 96 mmol/L 98-107 Carbon dioxide 25 mmol/L 21-32 Serum or plasma anion gap determination (moles/volume) 13 mmol/L 5-14 Serum or plasma urea nitrogen measurement (mass/volume ) 7 mg/dL 7-18 Serum or plasma creatinine measurement (mass/volume) 0.97 mg/dL 0.60-1.30 Serum or plasma urea nitrogen/creatinine mass ratio 7 NRG Serum or plasma creatinine measurement w ith calculation of estimated glomerular filtration rate > NRG Serum or plasma glucose measurement (mass/volume) 99 mg/dL 70-105 Serum or plasma calcium measurement (mass/volume) 8.6 mg/dL 8.5-10.1 Serum or plasma total bilirubin measurement (mass/volu me) 1.2 mg/dL 0.1-1.0 Serum or plasma alkaline phosphatase fernie surement (enzymatic activity/volume) 94 U/L 40-136 Serum or plasma aspartate aminotransfera se measurement (enzymatic activity/volume) 16 U/L 5-34 Serum or plasma alanine aminotransferase measurement (enzymatic activity/volume) 10 U/L 0-55 Serum or plasma protein measurement (mass/volume) 5.4 g/dL 6.4-8.2 Serum or plasma albumin measurement (mass/volume) 2.8 g/dL 3.2-4.5 CALCIUM CORRECTED 9.6 mg/dL 8.5-10.1 Serum or plasma troponin i.cardiac measu rement (mass/volume) - 01/02/19 11:50 Serum or plasma troponin i.cardiac measurement (mass/v olume) < ng/mL <0.028 Lipase - 01/02/19 11:50 Lipase 19 U/L 8-78 Serum or plasma ethanol measurement (mas s/volume) - 01/02/19 11:50 Serum or plasma ethanol measurement (mass/volume) < mg/dL <10 Capillary blood glucose measurement by g lucometer (mass/volume) - 01/02/19 11:52 Capillary blood glucose measurement by glucometer (mas s/volume) 110 mg/dL 70-110 Complete urinalysis with reflex to cultu re - 01/02/19 13:33 Urine color determination YELLOW NRG Urine clarity determination SLIGHTLY CLOUDY NRG Urine pH measurement by test strip 8 5-9 Specific gravity of urine by test strip 1.015 1.016-1.022 Urine protein assay by test strip, semi-quantitative 1+ NEGATIVE Urine glucose detection by automated test strip NE GATIVE NEGATIVE Erythrocytes detection in urine sediment by light micr oscopy NEGATIVE NEGATIVE Urine ketones detection by automated test strip NE GATIVE NEGATIVE Urine nitrite detection by test strip NEGATIVE NEGATIVE Urine total bilirubin detection by test strip NEGA TIVE NEGATIVE Urine urobilinogen measurement by automated test strip (mass/volume) 4 mg/dL NORMAL Urine leukocyte esterase detection by dipstick 1+ NEGATIVE Automated urine sediment erythrocyte cou nt by microscopy (number/high power field) NONE NRG Automated urine sediment leukocyte count by microscopy (number/high power field) [HPF] NRG Bacteria detection in urine sediment by light microsco py NEGATIVE NRG Squamous epithelial cells detection in u rine sediment by light microscopy NONE NRG Crystals detection in urine sediment by light microsco py NONE NRG Casts detection in urine sediment by light microscopy NONE NRG Mucus detection in urine sediment by light microscopy NEGATIVE NRG Complete urinalysis with reflex to culture NO NRG Ammonia - 01/02/19 13:33 Ammonia 13 umol/L 11-32 Arterial blood gas measurement - 9 16:10 Blood pCO2 37 mm[Hg] 35-45 Blood pO2 50 mm[Hg] 79-93 Arterial blood bicarbonate measurement (moles/volume) 29 mmol/L 23-27 Arterial blood base excess by calculation 5.5 mmol /L -2.5-2.5 Arterial blood oxygen saturation measurement 85 % 94-100 * Inhaled oxygen flow rate ROOM AIR NRG Arterial blood pH measurement with patient temperature correction 7.51 7.37-7.43 Arterial blood carbon dioxide, total measurement (mole s/volume) 30.1 mmol/L 21.0-31.0 Body site LEFT NRG Assessment of wrist artery patency prior to arterial p uncture POS NRG Setting of ventilation mode NO NR G Measurement of body temperature 36.3 C NRG Capillary blood glucose measurement by g lucometer (mass/volume) - 01/02/19 22:23 Capillary blood glucose measurement by glucometer (mas s/volume) 203 mg/dL 70-110 Whole blood basic metabolic panel - 12/24 05/13 03:20 Serum or plasma sodium measurement (moles/volume) 135 mmol/L 135-145 Serum or plasma potassium measurement (moles/volume) 3.9 mmol/L 3.6-5.0 Serum or plasma chloride measurement (moles/volume) 99 mmol/L 98-107 Carbon dioxide 25 mmol/L 21-32 Serum or plasma anion gap determination (moles/volume) 11 mmol/L 5-14 Serum or plasma urea nitrogen measurement (mass/volume ) 7 mg/dL 7-18 Serum or plasma creatinine measurement (mass/volume) 0.83 mg/dL 0.60-1.30 Serum or plasma urea nitrogen/creatinine mass ratio 8 NRG Serum or plasma creatinine measurement w ith calculation of estimated glomerular filtration rate > NRG Serum or plasma glucose measurement (mass/volume) 45 mg/dL 70-105 Serum or plasma calcium measurement (mass/volume) 8.3 mg/dL 8.5-10.1 Serum or plasma phosphate measurement (m ass/volume) - 01/03/19 03:20 Serum or plasma phosphate measurement (mass/volume) 3.5 mg/dL 2.3-4.7 Magnesium - 01/03/19 03:20 Magnesium 1.6 mg/dL 1.6-2.4 Lipid 1996 panel - 01/03/19 03:20 Serum or plasma triglyceride measurement (mass/volume) 89 mg/dL <150 Serum or plasma cholesterol measurement (mass/volume) 107 mg/dL < 200 Serum or plasma cholesterol in HDL measurement (mass/v olume) 38 mg/dL 40-60 Cholesterol in LDL [mass/volume] in serum or plasma by direct assay 55 mg/dL 1-129 Serum or plasma cholesterol in VLDL measurement (mass/ volume) 18 mg/dL 5-40 Complete blood count (CBC) with automate d white blood cell (WBC) differential - 01/03/19 03:20 Blood leukocytes automated count (number/volume) 5.8 10*3/uL 4.3-11.0 Blood erythrocytes automated count (number/volume) 2.58 10*6/uL 4.35-5.85 Venous blood hemoglobin measurement (mass/volume) 9.3 g/dL 13.3-17.7 Blood hematocrit (volume fraction) 28 % 40-54 Automated erythrocyte mean corpuscular volume 109 [foz_us] 80-99 Automated erythrocyte mean corpuscular h emoglobin (mass per erythrocyte) 36 pg 25-34 Automated erythrocyte mean corpuscular h emoglobin concentration measurement (mass/volume) 33 g/dL 32-36 Automated erythrocyte distribution width ratio 13. 9 % 10.0- 14.5 Automated blood platelet count (count/volume) 176 10*3/uL 130-400 Automated blood platelet mean volume measurement 10.2 [foz_us] 7.4-10.4 Automated blood neutrophils/100 leukocytes 70 % 42-75 Automated blood lymphocytes/100 leukocytes 15 % 12-44 Blood monocytes/100 leukocytes 12 % 0-12 Automated blood eosinophils/100 leukocytes 3 % 0-10 Automated blood basophils/100 leukocytes 0 % 0-10 Blood neutrophils automated count (number/volume) 4.1 10*3 1.8-7.8 Blood lymphocytes automated count (number/volume) 0.9 10*3 1.0-4.0 Blood monocytes automated count (number/volume) 0. 7 10*3 0.0-1.0 Automated eosinophil count 0.2 10*3/uL 0 .0-0.3 Automated blood basophil count (count/volume) 0.0 10*3/uL 0.0-0.1 Arterial blood gas measurement - 9 04:26 Blood pCO2 44 mm[Hg] 35-45 Blood pO2 60 mm[Hg] 79-93 Arterial blood bicarbonate measurement (moles/volume) 27 mmol/L 23-27 Arterial blood base excess by calculation 2.9 mmol /L -2.5-2.5 Arterial blood oxygen saturation measurement 90 % 94-100 * Inhaled oxygen flow rate ROOM AIR NRG Arterial blood pH measurement with patient temperature correction 7.41 7.37-7.43 Arterial blood carbon dioxide, total measurement (mole s/volume) 28.7 mmol/L 21.0-31.0 Body site RIGHT RADIAL NRG Assessment of wrist artery patency prior to arterial p uncture YES-POS NRG Setting of ventilation mode NO NR G Measurement of body temperature 36.0 NRG Capillary blood glucose measurement by g lucometer (mass/volume) - 01/03/19 05:01 Capillary blood glucose measurement by glucometer (mas s/volume) 104 mg/dL 70-110 Capillary blood glucose measurement by g lucometer (mass/volume) - 01/03/19 11:46 Capillary blood glucose measurement by glucometer (mas s/volume) 120 mg/dL 70-110 Capillary blood glucose measurement by g lucometer (mass/volume) - 01/03/19 17:15 Capillary blood glucose measurement by glucometer (mas s/volume) 148 mg/dL 70-110 Complete blood count (CBC) with automate d white blood cell (WBC) differential - 01/04/19 02:50 Blood leukocytes automated count (number/volume) 8.7 10*3/uL 4.3-11.0 Blood erythrocytes automated count (number/volume) 2.34 10*6/uL 4.35-5.85 Venous blood hemoglobin measurement (mass/volume) 8.2 g/dL 13.3-17.7 Blood hematocrit (volume fraction) 25 % 40-54 Automated erythrocyte mean corpuscular volume 108 [foz_us] 80-99 Automated erythrocyte mean corpuscular h emoglobin (mass per erythrocyte) 35 pg 25-34 Automated erythrocyte mean corpuscular h emoglobin concentration measurement (mass/volume) 33 g/dL 32-36 Automated erythrocyte distribution width ratio 14. 5 % 10.0- 14.5 Automated blood platelet count (count/volume) 181 10*3/uL 130-400 Automated blood platelet mean volume measurement 10.2 [foz_us] 7.4-10.4 Automated blood neutrophils/100 leukocytes 78 % 42-75 Automated blood lymphocytes/100 leukocytes 12 % 12-44 Blood monocytes/100 leukocytes 10 % 0-12 Automated blood eosinophils/100 leukocytes 1 % 0-10 Automated blood basophils/100 leukocytes 0 % 0-10 Blood neutrophils automated count (number/volume) 6.8 10*3 1.8-7.8 Blood lymphocytes automated count (number/volume) 1.0 10*3 1.0-4.0 Blood monocytes automated count (number/volume) 0. 8 10*3 0.0-1.0 Automated eosinophil count 0.1 10*3/uL 0 .0-0.3 Automated blood basophil count (count/volume) 0.0 10*3/uL 0.0-0.1 Whole blood basic metabolic panel - 12/24 06/13 02:50 Serum or plasma sodium measurement (moles/volume) 132 mmol/L 135-145 Serum or plasma potassium measurement (moles/volume) 4.1 mmol/L 3.6-5.0 Serum or plasma chloride measurement (moles/volume) 103 mmol/L 98-107 Carbon dioxide 23 mmol/L 21-32 Serum or plasma anion gap determination (moles/volume) 6 mmol/L 5-14 Serum or plasma urea nitrogen measurement (mass/volume ) 6 mg/dL 7-18 Serum or plasma creatinine measurement (mass/volume) 0.80 mg/dL 0.60-1.30 Serum or plasma urea nitrogen/creatinine mass ratio 8 NRG Serum or plasma creatinine measurement w ith calculation of estimated glomerular filtration rate > NRG Serum or plasma glucose measurement (mass/volume) 102 mg/dL 70-105 Serum or plasma calcium measurement (mass/volume) 7.6 mg/dL 8.5-10.1 Serum or plasma phosphate measurement (m ass/volume) - 01/04/19 02:50 Serum or plasma phosphate measurement (mass/volume) 3.4 mg/dL 2.3-4.7 Magnesium - 01/04/19 02:50 Magnesium 2.0 mg/dL 1.6-2.4 Serum or plasma lithium measurement (mol es/volume) - 01/04/19 02:50 BNP PT 773.6 pg/mL <100.0 Arterial blood gas measurement - 9 06:00 Blood pCO2 38 mm[Hg] 35-45 Blood pO2 109 mm[Hg] 79-93 Arterial blood bicarbonate measurement (moles/volume) 25 mmol/L 23-27 Arterial blood base excess by calculation 0.7 mmol /L -2.5-2.5 Arterial blood oxygen saturation measurement 99 % 94-100 * Inhaled oxygen flow rate 2L NRG Arterial blood pH measurement with patient temperature correction 7.43 7.37-7.43 Arterial blood carbon dioxide, total measurement (mole s/volume) 26.0 mmol/L 21.0-31.0 Body site LRAD NRG Assessment of wrist artery patency prior to arterial p uncture YES-POS NRG Setting of ventilation mode NO NR G Measurement of body temperature 36.0 NRG RED CELLS LEUKO REDUCED AS1 - 01/04/19 0 9:34 RED CELLS LEUKO REDUCED AS1 T RANSFUSED 01/04/19 1407 NRG Blood type T Indirect antibody screen pa ytree - 01/04/19 09:34 WRISTBAND NUMBER [id number] NRG ABO+Rh group AP NRG Blood group antibody screen NEGATIVE NR G Complete blood count (CBC) with automate d white blood cell (WBC) differential - 01/05/19 03:55 Blood leukocytes automated count (number/volume) 9.6 10*3/uL 4.3-11.0 Blood erythrocytes automated count (number/volume) 2.59 10*6/uL 4.35-5.85 Venous blood hemoglobin measurement (mass/volume) 9.2 g/dL 13.3-17.7 Blood hematocrit (volume fraction) 27 % 40-54 Automated erythrocyte mean corpuscular volume 105 [foz_us] 80-99 Automated erythrocyte mean corpuscular h emoglobin (mass per erythrocyte) 36 pg 25-34 Automated erythrocyte mean corpuscular h emoglobin concentration measurement (mass/volume) 34 g/dL 32-36 Automated erythrocyte distribution width ratio 16. 3 % 10.0- 14.5 Automated blood platelet count (count/volume) 171 10*3/uL 130-400 Automated blood platelet mean volume measurement 10.4 [foz_us] 7.4-10.4 Automated blood neutrophils/100 leukocytes 81 % 42-75 Automated blood lymphocytes/100 leukocytes 11 % 12-44 Blood monocytes/100 leukocytes 8 % 0-12 Automated blood eosinophils/100 leukocytes 1 % 0-10 Automated blood basophils/100 leukocytes 0 % 0-10 Blood neutrophils automated count (number/volume) 7.7 10*3 1.8-7.8 Blood lymphocytes automated count (number/volume) 1.0 10*3 1.0-4.0 Blood monocytes automated count (number/volume) 0. 7 10*3 0.0-1.0 Automated eosinophil count 0.1 10*3/uL 0 .0-0.3 Automated blood basophil count (count/volume) 0.0 10*3/uL 0.0-0.1 Whole blood basic metabolic panel - 12/24 07/11 03:55 Serum or plasma sodium measurement (moles/volume) 135 mmol/L 135-145 Serum or plasma potassium measurement (moles/volume) 4.3 mmol/L 3.6-5.0 Serum or plasma chloride measurement (moles/volume) 105 mmol/L 98-107 Carbon dioxide 23 mmol/L 21-32 Serum or plasma anion gap determination (moles/volume) 7 mmol/L 5-14 Serum or plasma urea nitrogen measurement (mass/volume ) 8 mg/dL 7-18 Serum or plasma creatinine measurement (mass/volume) 0.92 mg/dL 0.60-1.30 Serum or plasma urea nitrogen/creatinine mass ratio 9 NRG Serum or plasma creatinine measurement w ith calculation of estimated glomerular filtration rate > NRG Serum or plasma glucose measurement (mass/volume) 101 mg/dL 70-105 Serum or plasma calcium measurement (mass/volume) 7.7 mg/dL 8.5-10.1 Serum or plasma phosphate measurement (m ass/volume) - 01/05/19 03:55 Serum or plasma phosphate measurement (mass/volume) 3.6 mg/dL 2.3-4.7 Magnesium - 01/05/19 03:55 Magnesium 2.0 mg/dL 1.6-2.4 Complete blood count (CBC) with automate d white blood cell (WBC) differential - 01/06/19 05:30 Blood leukocytes automated count (number/volume) 9.2 10*3/uL 4.3-11.0 Blood erythrocytes automated count (number/volume) 2.88 10*6/uL 4.35-5.85 Venous blood hemoglobin measurement (mass/volume) 9.9 g/dL 13.3-17.7 Blood hematocrit (volume fraction) 30 % 40-54 Automated erythrocyte mean corpuscular volume 105 [foz_us] 80-99 Automated erythrocyte mean corpuscular h emoglobin (mass per erythrocyte) 34 pg 25-34 Automated erythrocyte mean corpuscular h emoglobin concentration measurement (mass/volume) 33 g/dL 32-36 Automated erythrocyte distribution width ratio 16. 1 % 10.0- 14.5 Automated blood platelet count (count/volume) 220 10*3/uL 130-400 Automated blood platelet mean volume measurement 10.9 [foz_us] 7.4-10.4 Automated blood neutrophils/100 leukocytes 73 % 42-75 Automated blood lymphocytes/100 leukocytes 16 % 12-44 Blood monocytes/100 leukocytes 10 % 0-12 Automated blood eosinophils/100 leukocytes 1 % 0-10 Automated blood basophils/100 leukocytes 0 % 0-10 Blood neutrophils automated count (number/volume) 6.7 10*3 1.8-7.8 Blood lymphocytes automated count (number/volume) 1.5 10*3 1.0-4.0 Blood monocytes automated count (number/volume) 0. 9 10*3 0.0-1.0 Automated eosinophil count 0.1 10*3/uL 0 .0-0.3 Automated blood basophil count (count/volume) 0.0 10*3/uL 0.0-0.1 Whole blood basic metabolic panel - 12/24 08/11 05:30 Serum or plasma sodium measurement (moles/volume) 135 mmol/L 135-145 Serum or plasma potassium measurement (moles/volume) 4.2 mmol/L 3.6-5.0 Serum or plasma chloride measurement (moles/volume) 102 mmol/L 98-107 Carbon dioxide 23 mmol/L 21-32 Serum or plasma anion gap determination (moles/volume) 10 mmol/L 5-14 Serum or plasma urea nitrogen measurement (mass/volume ) 9 mg/dL 7-18 Serum or plasma creatinine measurement (mass/volume) 1.01 mg/dL 0.60-1.30 Serum or plasma urea nitrogen/creatinine mass ratio 9 NRG Serum or plasma creatinine measurement w ith calculation of estimated glomerular filtration rate > NRG Serum or plasma glucose measurement (mass/volume) 98 mg/dL 70-105 Serum or plasma calcium measurement (mass/volume) 8.5 mg/dL 8.5-10.1 Serum or plasma phosphate measurement (m ass/volume) - 01/06/19 05:30 Serum or plasma phosphate measurement (mass/volume) 3.3 mg/dL 2.3-4.7 Magnesium - 01/06/19 05:30 Magnesium 1.9 mg/dL 1.6-2.4 Complete blood count (CBC) with automate d white blood cell (WBC) differential - 01/07/19 04:04 Blood leukocytes automated count (number/volume) 8.8 10*3/uL 4.3-11.0 Blood erythrocytes automated count (number/volume) 2.85 10*6/uL 4.35-5.85 Venous blood hemoglobin measurement (mass/volume) 9.9 g/dL 13.3-17.7 Blood hematocrit (volume fraction) 30 % 40-54 Automated erythrocyte mean corpuscular volume 105 [foz_us] 80-99 Automated erythrocyte mean corpuscular h emoglobin (mass per erythrocyte) 35 pg 25-34 Automated erythrocyte mean corpuscular h emoglobin concentration measurement (mass/volume) 33 g/dL 32-36 Automated erythrocyte distribution width ratio 15. 5 % 10.0- 14.5 Automated blood platelet count (count/volume) 249 10*3/uL 130-400 Automated blood platelet mean volume measurement 10.6 [foz_us] 7.4-10.4 Automated blood neutrophils/100 leukocytes 68 % 42-75 Automated blood lymphocytes/100 leukocytes 21 % 12-44 Blood monocytes/100 leukocytes 11 % 0-12 Automated blood eosinophils/100 leukocytes 1 % 0-10 Automated blood basophils/100 leukocytes 0 % 0-10 Blood neutrophils automated count (number/volume) 6.0 10*3 1.8-7.8 Blood lymphocytes automated count (number/volume) 1.8 10*3 1.0-4.0 Blood monocytes automated count (number/volume) 0. 9 10*3 0.0-1.0 Automated eosinophil count 0.1 10*3/uL 0 .0-0.3 Automated blood basophil count (count/volume) 0.0 10*3/uL 0.0-0.1 Whole blood basic metabolic panel - 12/24 09/10 04:04 Serum or plasma sodium measurement (moles/volume) 135 mmol/L 135-145 Serum or plasma potassium measurement (moles/volume) 4.3 mmol/L 3.6-5.0 Serum or plasma chloride measurement (moles/volume) 102 mmol/L 98-107 Carbon dioxide 23 mmol/L 21-32 Serum or plasma anion gap determination (moles/volume) 10 mmol/L 5-14 Serum or plasma urea nitrogen measurement (mass/volume ) 10 mg/dL 7-18 Serum or plasma creatinine measurement (mass/volume) 1.16 mg/dL 0.60-1.30 Serum or plasma urea nitrogen/creatinine mass ratio 9 NRG Serum or plasma creatinine measurement w ith calculation of estimated glomerular filtration rate > NRG Serum or plasma glucose measurement (mass/volume) 90 mg/dL 70-105 Serum or plasma calcium measurement (mass/volume) 8.9 mg/dL 8.5-10.1 Serum or plasma phosphate measurement (m ass/volume) - 01/07/19 04:04 Serum or plasma phosphate measurement (mass/volume) 3.6 mg/dL 2.3-4.7 Magnesium - 01/07/19 04:04 Magnesium 1.8 mg/dL 1.6-2.4 Complete blood count (CBC) with automate d white blood cell (WBC) differential - 01/08/19 04:30 Blood leukocytes automated count (number/volume) 6.4 10*3/uL 4.3-11.0 Blood erythrocytes automated count (number/volume) 2.62 10*6/uL 4.35-5.85 Venous blood hemoglobin measurement (mass/volume) 9.2 g/dL 13.3-17.7 Blood hematocrit (volume fraction) 28 % 40-54 Automated erythrocyte mean corpuscular volume 105 [foz_us] 80-99 Automated erythrocyte mean corpuscular h emoglobin (mass per erythrocyte) 35 pg 25-34 Automated erythrocyte mean corpuscular h emoglobin concentration measurement (mass/volume) 33 g/dL 32-36 Automated erythrocyte distribution width ratio 15. 4 % 10.0- 14.5 Automated blood platelet count (count/volume) 231 10*3/uL 130-400 Automated blood platelet mean volume measurement 9.8 [foz_us] 7.4-10.4 Automated blood neutrophils/100 leukocytes 63 % 42-75 Automated blood lymphocytes/100 leukocytes 23 % 12-44 Blood monocytes/100 leukocytes 12 % 0-12 Automated blood eosinophils/100 leukocytes 2 % 0-10 Automated blood basophils/100 leukocytes 0 % 0-10 Blood neutrophils automated count (number/volume) 4.1 10*3 1.8-7.8 Blood lymphocytes automated count (number/volume) 1.5 10*3 1.0-4.0 Blood monocytes automated count (number/volume) 0. 8 10*3 0.0-1.0 Automated eosinophil count 0.1 10*3/uL 0 .0-0.3 Automated blood basophil count (count/volume) 0.0 10*3/uL 0.0-0.1 Whole blood basic metabolic panel - 12/24 10/11 04:30 Serum or plasma sodium measurement (moles/volume) 137 mmol/L 135-145 Serum or plasma potassium measurement (moles/volume) 4.3 mmol/L 3.6-5.0 Serum or plasma chloride measurement (moles/volume) 102 mmol/L 98-107 Carbon dioxide 23 mmol/L 21-32 Serum or plasma anion gap determination (moles/volume) 12 mmol/L 5-14 Serum or plasma urea nitrogen measurement (mass/volume ) 12 mg/dL 7-18 Serum or plasma creatinine measurement (mass/volume) 1.30 mg/dL 0.60-1.30 Serum or plasma urea nitrogen/creatinine mass ratio 9 NRG Serum or plasma creatinine measurement w ith calculation of estimated glomerular filtration rate 54 NRG Serum or plasma glucose measurement (mass/volume) 101 mg/dL 70-105 Serum or plasma calcium measurement (mass/volume) 8.7 mg/dL 8.5-10.1 Serum or plasma phosphate measurement (m ass/volume) - 01/08/19 04:30 Serum or plasma phosphate measurement (mass/volume) 4.4 mg/dL 2.3-4.7 Magnesium - 01/08/19 04:30 Magnesium 1.7 mg/dL 1.6-2.4 Capillary blood glucose measurement by g lucometer (mass/volume) - 01/08/19 11:12 Capillary blood glucose measurement by glucometer (mas s/volume) 128 mg/dL 70-110 Automated blood complete blood count (he mogram) panel - 01/10/19 06:30 Blood leukocytes automated count (number/volume) 12.0 10*3/uL 4.3-11.0 Blood erythrocytes automated count (number/volume) 2.73 10*6/uL 4.35-5.85 Venous blood hemoglobin measurement (mass/volume) 9.3 g/dL 13.3-17.7 Blood hematocrit (volume fraction) 29 % 40-54 Automated erythrocyte mean corpuscular volume 105 [foz_us] 80-99 Automated erythrocyte mean corpuscular h emoglobin (mass per erythrocyte) 34 pg 25-34 Automated erythrocyte mean corpuscular h emoglobin concentration measurement (mass/volume) 32 g/dL 32-36 Automated erythrocyte distribution width ratio 16. 0 % 10.0- 14.5 Automated blood platelet count (count/volume) 269 10*3/uL 130-400 Automated blood platelet mean volume measurement 9.9 [foz_us] 7.4-10.4 Whole blood basic metabolic panel - 12/24 12/11 06:30 Serum or plasma sodium measurement (moles/volume) 135 mmol/L 135-145 Serum or plasma potassium measurement (moles/volume) 3.9 mmol/L 3.6-5.0 Serum or plasma chloride measurement (moles/volume) 102 mmol/L 98-107 Carbon dioxide 23 mmol/L 21-32 Serum or plasma anion gap determination (moles/volume) 10 mmol/L 5-14 Serum or plasma urea nitrogen measurement (mass/volume ) 15 mg/dL 7-18 Serum or plasma creatinine measurement (mass/volume) 1.33 mg/dL 0.60-1.30 Serum or plasma urea nitrogen/creatinine mass ratio 11 NRG Serum or plasma creatinine measurement w ith calculation of estimated glomerular filtration rate 53 NRG Serum or plasma glucose measurement (mass/volume) 107 mg/dL 70-105 Serum or plasma calcium measurement (mass/volume) 9.1 mg/dL 8.5-10.1 ANEMIA ANA[employer]ZER - 01/10/19 17:05 Blood leukocytes automated count (number/volume) 11.2 10*3/uL 4.3-11.0 Blood erythrocytes automated count (number/volume) 2.83 10*6/uL 4.35-5.85 Venous blood hemoglobin measurement (mass/volume) 9.9 g/dL 13.3-17.7 Blood hematocrit (volume fraction) 30 % 40-54 Automated erythrocyte mean corpuscular volume 105 [foz_us] 80-99 Automated erythrocyte mean corpuscular h emoglobin (mass per erythrocyte) 35 pg 25-34 Automated erythrocyte mean corpuscular h emoglobin concentration measurement (mass/volume) 33 g/dL 32-36 Automated erythrocyte distribution width ratio 15. 5 % 10.0- 14.5 Automated blood platelet count (count/volume) 260 10*3/uL 130-400 Automated blood platelet mean volume measurement 10.2 [foz_us] 7.4-10.4 Automated blood neutrophils/100 leukocytes 84 % 42-75 Automated blood lymphocytes/100 leukocytes 8 % 12-44 Blood monocytes/100 leukocytes 6 % NRG Automated blood eosinophils/100 leukocytes 0 % 0-10 Automated blood basophils/100 leukocytes 0 % 0-10 Blood neutrophils automated count (number/volume) 9.4 10*3 1.8-7.8 Blood lymphocytes automated count (number/volume) 0.9 10*3 1.0-4.0 Blood monocytes automated count (number/volume) 1. 0 10*3 0.0-1.0 Automated eosinophil count 0.0 10*3/uL 0 .0-0.3 Automated blood basophil count (count/volume) 0.0 10*3/uL 0.0-0.1 Manual blood segmented neutrophils/100 leukocytes 86 % NRG Manual blood lymphocytes/100 leukocytes 8 % NRG Blood anisocytosis detection by light microscopy S LIGHT NRG Blood hypochromia detection by light microscopy MO DERATE NRG Blood reticulocytes count (number/volume) 84 10*9/ L 24-90 Blood reticulocytes/100 erythrocytes 2.97 % 0.50-2.40 Serum or plasma folate measurement (mass /volume) - 01/10/19 17:05 Serum or plasma folate measurement (mass/volume) 1 2.5 ng/mL >=4.0 VITAMIN B 12 - 01/10/19 17:05 VITAMIN B 12 552 pg/mL 190-1100 Automated blood complete blood count (he mogram) panel - 01/11/19 05:15 Blood leukocytes automated count (number/volume) 12.7 10*3/uL 4.3-11.0 Blood erythrocytes automated count (number/volume) 2.79 10*6/uL 4.35-5.85 Venous blood hemoglobin measurement (mass/volume) 9.7 g/dL 13.3-17.7 Blood hematocrit (volume fraction) 29 % 40-54 Automated erythrocyte mean corpuscular volume 105 [foz_us] 80-99 Automated erythrocyte mean corpuscular h emoglobin (mass per erythrocyte) 35 pg 25-34 Automated erythrocyte mean corpuscular h emoglobin concentration measurement (mass/volume) 33 g/dL 32-36 Automated erythrocyte distribution width ratio 15. 4 % 10.0- 14.5 Automated blood platelet count (count/volume) 238 10*3/uL 130-400 Automated blood platelet mean volume measurement 10.1 [foz_us] 7.4-10.4 Whole blood basic metabolic panel - 12/24 01/11 05:15 Serum or plasma sodium measurement (moles/volume) 138 mmol/L 135-145 Serum or plasma potassium measurement (moles/volume) 3.9 mmol/L 3.6-5.0 Serum or plasma chloride measurement (moles/volume) 102 mmol/L 98-107 Carbon dioxide 23 mmol/L 21-32 Serum or plasma anion gap determination (moles/volume) 13 mmol/L 5-14 Serum or plasma urea nitrogen measurement (mass/volume ) 14 mg/dL 7-18 Serum or plasma creatinine measurement (mass/volume) 1.29 mg/dL 0.60-1.30 Serum or plasma urea nitrogen/creatinine mass ratio 11 NRG Serum or plasma creatinine measurement w ith calculation of estimated glomerular filtration rate 55 NRG Serum or plasma glucose measurement (mass/volume) 114 mg/dL 70-105 Serum or plasma calcium measurement (mass/volume) 6.7 mg/dL 8.5-10.1 Magnesium - 01/11/19 05:15 Magnesium 1.8 mg/dL 1.6-2.4 Whole blood basic metabolic panel - 12/25 05:10 Serum or plasma sodium measurement (moles/volume) 137 mmol/L 135-145 Serum or plasma potassium measurement (moles/volume) 3.8 mmol/L 3.6-5.0 Serum or plasma chloride measurement (moles/volume) 103 mmol/L 98-107 Carbon dioxide 26 mmol/L 21-32 Serum or plasma anion gap determination (moles/volume) 8 mmol/L 5-14 Serum or plasma urea nitrogen measurement (mass/volume ) 13 mg/dL 7-18 Serum or plasma creatinine measurement (mass/volume) 1.20 mg/dL 0.60-1.30 Serum or plasma urea nitrogen/creatinine mass ratio 11 NRG Serum or plasma creatinine measurement w ith calculation of estimated glomerular filtration rate 60 NRG Serum or plasma glucose measurement (mass/volume) 98 mg/dL 70-105 Serum or plasma calcium measurement (mass/volume) 8.4 mg/dL 8.5-10.1 Magnesium - 01/12/19 05:10 Magnesium 2.1 mg/dL 1.6-2.4 Complete blood count (CBC) with automate d white blood cell (WBC) differential - 01/15/19 05:22 Blood leukocytes automated count (number/volume) 15.6 10*3/uL 4.3-11.0 Blood erythrocytes automated count (number/volume) 3.00 10*6/uL 4.35-5.85 Venous blood hemoglobin measurement (mass/volume) 10.3 g/dL 13.3-17.7 Blood hematocrit (volume fraction) 32 % 40-54 Automated erythrocyte mean corpuscular volume 106 [foz_us] 80-99 Automated erythrocyte mean corpuscular h emoglobin (mass per erythrocyte) 34 pg 25-34 Automated erythrocyte mean corpuscular h emoglobin concentration measurement (mass/volume) 33 g/dL 32-36 Automated erythrocyte distribution width ratio 15. 2 % 10.0- 14.5 Automated blood platelet count (count/volume) 338 10*3/uL 130-400 Automated blood platelet mean volume measurement 10.5 [foz_us] 7.4-10.4 Automated blood neutrophils/100 leukocytes 80 % 42-75 Automated blood lymphocytes/100 leukocytes 12 % 12-44 Blood monocytes/100 leukocytes 7 % 0-12 Automated blood eosinophils/100 leukocytes 1 % 0-10 Automated blood basophils/100 leukocytes 0 % 0-10 Blood neutrophils automated count (number/volume) 12.5 10*3 1.8-7.8 Blood lymphocytes automated count (number/volume) 1.8 10*3 1.0-4.0 Blood monocytes automated count (number/volume) 1. 2 10*3 0.0-1.0 Automated eosinophil count 0.2 10*3/uL 0 .0-0.3 Automated blood basophil count (count/volume) 0.0 10*3/uL 0.0-0.1 Manual absolute plasma cell count - 12/25 07/11 05:22 Blood monocytes/100 leukocytes 9 % NRG Manual blood segmented neutrophils/100 leukocytes 80 % NRG Manual blood lymphocytes/100 leukocytes 10 % NRG Manual eosinophils/100 leukocytes in nose 1 % NRG Blood anisocytosis detection by light microscopy S LIGHT NRG Blood macrocytes detection by light microscopy SLI GHT NRG Blood poikilocytosis detection by light microscopy SLIGHT NRG Blood spherocytes detection by light microscopy SL IGHT NRG Comprehensive metabolic panel - 01/15/19 05:22 Serum or plasma sodium measurement (moles/volume) 140 mmol/L 135-145 Serum or plasma potassium measurement (moles/volume) 3.4 mmol/L 3.6-5.0 Serum or plasma chloride measurement (moles/volume) 104 mmol/L 98-107 Carbon dioxide 23 mmol/L 21-32 Serum or plasma anion gap determination (moles/volume) 13 mmol/L 5-14 Serum or plasma urea nitrogen measurement (mass/volume ) 10 mg/dL 7-18 Serum or plasma creatinine measurement (mass/volume) 0.96 mg/dL 0.60-1.30 Serum or plasma urea nitrogen/creatinine mass ratio 10 NRG Serum or plasma creatinine measurement w ith calculation of estimated glomerular filtration rate > NRG Serum or plasma glucose measurement (mass/volume) 107 mg/dL 70-105 Serum or plasma calcium measurement (mass/volume) 8.1 mg/dL 8.5-10.1 Serum or plasma total bilirubin measurement (mass/volu me) 0.5 mg/dL 0.1-1.0 Serum or plasma alkaline phosphatase fernie surement (enzymatic activity/volume) 74 U/L 40-136 Serum or plasma aspartate aminotransfera se measurement (enzymatic activity/volume) 18 U/L 5-34 Serum or plasma alanine aminotransferase measurement (enzymatic activity/volume) 17 U/L 0-55 Serum or plasma protein measurement (mass/volume) 5.9 g/dL 6.4-8.2 Serum or plasma albumin measurement (mass/volume) 2.9 g/dL 3.2-4.5 CALCIUM CORRECTED 9.0 mg/dL 8.5-10.1 Magnesium - 01/15/19 05:22 Magnesium 1.8 mg/dL 1.6-2.4 Complete blood count (CBC) with automate d white blood cell (WBC) differential - 01/16/19 06:20 Blood leukocytes automated count (number/volume) 10.6 10*3/uL 4.3-11.0 Blood erythrocytes automated count (number/volume) 2.83 10*6/uL 4.35-5.85 Venous blood hemoglobin measurement (mass/volume) 9.9 g/dL 13.3-17.7 Blood hematocrit (volume fraction) 30 % 40-54 Automated erythrocyte mean corpuscular volume 107 [foz_us] 80-99 Automated erythrocyte mean corpuscular h emoglobin (mass per erythrocyte) 35 pg 25-34 Automated erythrocyte mean corpuscular h emoglobin concentration measurement (mass/volume) 33 g/dL 32-36 Automated erythrocyte distribution width ratio 15. 5 % 10.0- 14.5 Automated blood platelet count (count/volume) 344 10*3/uL 130-400 Automated blood platelet mean volume measurement 9.4 [foz_us] 7.4-10.4 Automated blood neutrophils/100 leukocytes 80 % 42-75 Automated blood lymphocytes/100 leukocytes 11 % 12-44 Blood monocytes/100 leukocytes 8 % 0-12 Automated blood eosinophils/100 leukocytes 1 % 0-10 Automated blood basophils/100 leukocytes 0 % 0-10 Blood neutrophils automated count (number/volume) 8.5 10*3 1.8-7.8 Blood lymphocytes automated count (number/volume) 1.2 10*3 1.0-4.0 Blood monocytes automated count (number/volume) 0. 8 10*3 0.0-1.0 Automated eosinophil count 0.2 10*3/uL 0 .0-0.3 Automated blood basophil count (count/volume) 0.0 10*3/uL 0.0-0.1 Whole blood basic metabolic panel - 12/25 08/11 06:20 Serum or plasma sodium measurement (moles/volume) 140 mmol/L 135-145 Serum or plasma potassium measurement (moles/volume) 3.8 mmol/L 3.6-5.0 Serum or plasma chloride measurement (moles/volume) 107 mmol/L 98-107 Carbon dioxide 26 mmol/L 21-32 Serum or plasma anion gap determination (moles/volume) 7 mmol/L 5-14 Serum or plasma urea nitrogen measurement (mass/volume ) 9 mg/dL 7-18 Serum or plasma creatinine measurement (mass/volume) 0.90 mg/dL 0.60-1.30 Serum or plasma urea nitrogen/creatinine mass ratio 10 NRG Serum or plasma creatinine measurement w ith calculation of estimated glomerular filtration rate > NRG Serum or plasma glucose measurement (mass/volume) 108 mg/dL 70-105 Serum or plasma calcium measurement (mass/volume) 8.2 mg/dL 8.5-10.1 Magnesium - 01/16/19 06:20 Magnesium 1.8 mg/dL 1.6-2.4 Complete blood count (CBC) with automate d white blood cell (WBC) differential - 01/19/19 18:33 Blood leukocytes automated count (number/volume) 12.1 10*3/uL 4.3-11.0 Blood erythrocytes automated count (number/volume) 2.87 10*6/uL 4.35-5.85 Venous blood hemoglobin measurement (mass/volume) 9.8 g/dL 13.3-17.7 Blood hematocrit (volume fraction) 31 % 40-54 Automated erythrocyte mean corpuscular volume 106 [foz_us] 80-99 Automated erythrocyte mean corpuscular h emoglobin (mass per erythrocyte) 34 pg 25-34 Automated erythrocyte mean corpuscular h emoglobin concentration measurement (mass/volume) 32 g/dL 32-36 Automated erythrocyte distribution width ratio 16. 7 % 10.0- 14.5 Automated blood platelet count (count/volume) 293 10*3/uL 130-400 Automated blood platelet mean volume measurement 9.4 [foz_us] 7.4-10.4 Automated blood neutrophils/100 leukocytes 82 % 42-75 Automated blood lymphocytes/100 leukocytes 9 % 12-44 Blood monocytes/100 leukocytes 7 % 0-12 Automated blood eosinophils/100 leukocytes 1 % 0-10 Automated blood basophils/100 leukocytes 0 % 0-10 Blood neutrophils automated count (number/volume) 9.9 10*3 1.8-7.8 Blood lymphocytes automated count (number/volume) 1.1 10*3 1.0-4.0 Blood monocytes automated count (number/volume) 0. 9 10*3 0.0-1.0 Automated eosinophil count 0.2 10*3/uL 0 .0-0.3 Automated blood basophil count (count/volume) 0.0 10*3/uL 0.0-0.1 Comprehensive metabolic panel - 01/19/19 18:33 Serum or plasma sodium measurement (moles/volume) 139 mmol/L 135-145 Serum or plasma potassium measurement (moles/volume) 3.8 mmol/L 3.6-5.0 Serum or plasma chloride measurement (moles/volume) 106 mmol/L 98-107 Carbon dioxide 25 mmol/L 21-32 Serum or plasma anion gap determination (moles/volume) 8 mmol/L 5-14 Serum or plasma urea nitrogen measurement (mass/volume ) 12 mg/dL 7-18 Serum or plasma creatinine measurement (mass/volume) 1.01 mg/dL 0.60-1.30 Serum or plasma urea nitrogen/creatinine mass ratio 12 NRG Serum or plasma creatinine measurement w ith calculation of estimated glomerular filtration rate > NRG Serum or plasma glucose measurement (mass/volume) 129 mg/dL 70-105 Serum or plasma calcium measurement (mass/volume) 8.2 mg/dL 8.5-10.1 Serum or plasma total bilirubin measurement (mass/volu me) 0.4 mg/dL 0.1-1.0 Serum or plasma alkaline phosphatase fernie surement (enzymatic activity/volume) 78 U/L 40-136 Serum or plasma aspartate aminotransfera se measurement (enzymatic activity/volume) 20 U/L 5-34 Serum or plasma alanine aminotransferase measurement (enzymatic activity/volume) 20 U/L 0-55 Serum or plasma protein measurement (mass/volume) 5.4 g/dL 6.4-8.2 Serum or plasma albumin measurement (mass/volume) 2.7 g/dL 3.2-4.5 CALCIUM CORRECTED 9.2 mg/dL 8.5-10.1 Complete urinalysis with reflex to cultu re - 01/19/19 20:30 Urine color determination YELLOW NRG Urine clarity determination SL CLOUDY N RG Urine pH measurement by test strip 6 5-9 Specific gravity of urine by test strip 1.015 1.016-1.022 Urine protein assay by test strip, semi-quantitative 2+ NEGATIVE Urine glucose detection by automated test strip NE GATIVE NEGATIVE Erythrocytes detection in urine sediment by light micr oscopy 2+ NEGATIVE Urine ketones detection by automated test strip NE GATIVE NEGATIVE Urine nitrite detection by test strip POSITIVE NEGATIVE Urine total bilirubin detection by test strip NEGA TIVE NEGATIVE Urine urobilinogen measurement by automated test strip (mass/volume) 1 mg/dL NORMAL Urine leukocyte esterase detection by dipstick 3+ NEGATIVE Automated urine sediment erythrocyte cou nt by microscopy (number/high power field) RARE NRG Automated urine sediment leukocyte count by microscopy (number/high power field) [HPF] NRG Bacteria detection in urine sediment by light microsco py LARGE NRG Squamous epithelial cells detection in u rine sediment by light microscopy NONE NRG Crystals detection in urine sediment by light microsco py NONE NRG Casts detection in urine sediment by light microscopy NONE NRG Mucus detection in urine sediment by light microscopy SMALL NRG Complete urinalysis with reflex to culture YES NRG Bacterial urine culture - 01/19/19 20:30 Bacterial urine culture [id number] NRG COLONY COUNT >100,000/ML NRG FTX;REPORTABLE SUSCEPTIBILITY REPORTED 1505 NRG Dirithromycin susceptibility test by dis k diffusion - 01/19/19 20:30 Gentamicin susceptibility test by minimum inhibitory c oncentration <= NRG Trimethoprim/sulfamethoxazole susceptibi lity test by minimum inhibitoryconcentration <= NRG Levofloxacin susceptibility test by minimum inhibitory concentration <= NRG Ampicillin susceptibility test by minimum inhibitory c oncentration <= NRG Cefazolin susceptibility test by minimum inhibitory co ncentration 2 NRG Ceftriaxone susceptibility test by minimum inhibitory concentration <= NRG Ciprofloxacin susceptibility test by minimum inhibitor y concentration <= NRG Meropenem susceptibility test by minimum inhibitory co ncentration <= NRG Nitrofurantoin susceptibility test by mi nimum inhibitory concentration <= NRG Amoxicillin and clavulanate potassium susc STEFANIA = NRG Complete blood count (CBC) with automate d white blood cell (WBC) differential - 01/20/19 06:15 Blood leukocytes automated count (number/volume) 10.1 10*3/uL 4.3-11.0 Blood erythrocytes automated count (number/volume) 2.85 10*6/uL 4.35-5.85 Venous blood hemoglobin measurement (mass/volume) 9.8 g/dL 13.3-17.7 Blood hematocrit (volume fraction) 30 % 40-54 Automated erythrocyte mean corpuscular volume 106 [foz_us] 80-99 Automated erythrocyte mean corpuscular h emoglobin (mass per erythrocyte) 34 pg 25-34 Automated erythrocyte mean corpuscular h emoglobin concentration measurement (mass/volume) 32 g/dL 32-36 Automated erythrocyte distribution width ratio 16. 5 % 10.0- 14.5 Automated blood platelet count (count/volume) 269 10*3/uL 130-400 Automated blood platelet mean volume measurement 9.5 [foz_us] 7.4-10.4 Automated blood neutrophils/100 leukocytes 82 % 42-75 Automated blood lymphocytes/100 leukocytes 9 % 12-44 Blood monocytes/100 leukocytes 8 % 0-12 Automated blood eosinophils/100 leukocytes 1 % 0-10 Automated blood basophils/100 leukocytes 0 % 0-10 Blood neutrophils automated count (number/volume) 8.3 10*3 1.8-7.8 Blood lymphocytes automated count (number/volume) 0.9 10*3 1.0-4.0 Blood monocytes automated count (number/volume) 0. 8 10*3 0.0-1.0 Automated eosinophil count 0.1 10*3/uL 0 .0-0.3 Automated blood basophil count (count/volume) 0.0 10*3/uL 0.0-0.1 Comprehensive metabolic panel - 01/20/19 06:15 Serum or plasma sodium measurement (moles/volume) 138 mmol/L 135-145 Serum or plasma potassium measurement (moles/volume) 3.9 mmol/L 3.6-5.0 Serum or plasma chloride measurement (moles/volume) 106 mmol/L 98-107 Carbon dioxide 24 mmol/L 21-32 Serum or plasma anion gap determination (moles/volume) 8 mmol/L 5-14 Serum or plasma urea nitrogen measurement (mass/volume ) 12 mg/dL 7-18 Serum or plasma creatinine measurement (mass/volume) 0.95 mg/dL 0.60-1.30 Serum or plasma urea nitrogen/creatinine mass ratio 13 NRG Serum or plasma creatinine measurement w ith calculation of estimated glomerular filtration rate > NRG Serum or plasma glucose measurement (mass/volume) 129 mg/dL 70-105 Serum or plasma calcium measurement (mass/volume) 8.1 mg/dL 8.5-10.1 Serum or plasma total bilirubin measurement (mass/volu me) 0.3 mg/dL 0.1-1.0 Serum or plasma alkaline phosphatase fernie surement (enzymatic activity/volume) 89 U/L 40-136 Serum or plasma aspartate aminotransfera se measurement (enzymatic activity/volume) 18 U/L 5-34 Serum or plasma alanine aminotransferase measurement (enzymatic activity/volume) 17 U/L 0-55 Serum or plasma protein measurement (mass/volume) 5.3 g/dL 6.4-8.2 Serum or plasma albumin measurement (mass/volume) 2.6 g/dL 3.2-4.5 CALCIUM CORRECTED 9.2 mg/dL 8.5-10.1 Complete blood count (CBC) with automate d white blood cell (WBC) differential - 01/22/19 05:55 Blood leukocytes automated count (number/volume) 10.7 10*3/uL 4.3-11.0 Blood erythrocytes automated count (number/volume) 3.06 10*6/uL 4.35-5.85 Venous blood hemoglobin measurement (mass/volume) 10.3 g/dL 13.3-17.7 Blood hematocrit (volume fraction) 33 % 40-54 Automated erythrocyte mean corpuscular volume 107 [foz_us] 80-99 Automated erythrocyte mean corpuscular h emoglobin (mass per erythrocyte) 34 pg 25-34 Automated erythrocyte mean corpuscular h emoglobin concentration measurement (mass/volume) 32 g/dL 32-36 Automated erythrocyte distribution width ratio 16. 3 % 10.0- 14.5 Automated blood platelet count (count/volume) 258 10*3/uL 130-400 Automated blood platelet mean volume measurement 9.8 [foz_us] 7.4-10.4 Automated blood neutrophils/100 leukocytes 74 % 42-75 Automated blood lymphocytes/100 leukocytes 15 % 12-44 Blood monocytes/100 leukocytes 9 % 0-12 Automated blood eosinophils/100 leukocytes 2 % 0-10 Automated blood basophils/100 leukocytes 0 % 0-10 Blood neutrophils automated count (number/volume) 7.9 10*3 1.8-7.8 Blood lymphocytes automated count (number/volume) 1.7 10*3 1.0-4.0 Blood monocytes automated count (number/volume) 0. 9 10*3 0.0-1.0 Automated eosinophil count 0.2 10*3/uL 0 .0-0.3 Automated blood basophil count (count/volume) 0.0 10*3/uL 0.0-0.1 Comprehensive metabolic panel - 01/22/19 05:55 Serum or plasma sodium measurement (moles/volume) 139 mmol/L 135-145 Serum or plasma potassium measurement (moles/volume) 4.1 mmol/L 3.6-5.0 Serum or plasma chloride measurement (moles/volume) 105 mmol/L 98-107 Carbon dioxide 27 mmol/L 21-32 Serum or plasma anion gap determination (moles/volume) 7 mmol/L 5-14 Serum or plasma urea nitrogen measurement (mass/volume ) 10 mg/dL 7-18 Serum or plasma creatinine measurement (mass/volume) 0.94 mg/dL 0.60-1.30 Serum or plasma urea nitrogen/creatinine mass ratio 11 NRG Serum or plasma creatinine measurement w ith calculation of estimated glomerular filtration rate > NRG Serum or plasma glucose measurement (mass/volume) 73 mg/dL 70-105 Serum or plasma calcium measurement (mass/volume) 8.2 mg/dL 8.5-10.1 Serum or plasma total bilirubin measurement (mass/volu me) 0.2 mg/dL 0.1-1.0 Serum or plasma alkaline phosphatase fernie surement (enzymatic activity/volume) 83 U/L 40-136 Serum or plasma aspartate aminotransfera se measurement (enzymatic activity/volume) 17 U/L 5-34 Serum or plasma alanine aminotransferase measurement (enzymatic activity/volume) 16 U/L 0-55 Serum or plasma protein measurement (mass/volume) 6.1 g/dL 6.4-8.2 Serum or plasma albumin measurement (mass/volume) 2.7 g/dL 3.2-4.5 CALCIUM CORRECTED 9.2 mg/dL 8.5-10.1 Blood lactic acid measurement (moles/vol ume) - 01/25/19 19:00 Blood lactic acid measurement (moles/volume) 0.94 mmol/L 0.50-2.00 Comprehensive metabolic panel - 01/25/19 19:00 Serum or plasma sodium measurement (moles/volume) 137 mmol/L 135-145 Serum or plasma potassium measurement (moles/volume) 4.2 mmol/L 3.6-5.0 Serum or plasma chloride measurement (moles/volume) 103 mmol/L 98-107 Carbon dioxide 24 mmol/L 21-32 Serum or plasma anion gap determination (moles/volume) 10 mmol/L 5-14 Serum or plasma urea nitrogen measurement (mass/volume ) 12 mg/dL 7-18 Serum or plasma creatinine measurement (mass/volume) 1.17 mg/dL 0.60-1.30 Serum or plasma urea nitrogen/creatinine mass ratio 10 NRG Serum or plasma creatinine measurement w ith calculation of estimated glomerular filtration rate > NRG Serum or plasma glucose measurement (mass/volume) 111 mg/dL 70-105 Serum or plasma calcium measurement (mass/volume) 8.4 mg/dL 8.5-10.1 Serum or plasma total bilirubin measurement (mass/volu me) 0.7 mg/dL 0.1-1.0 Serum or plasma alkaline phosphatase fernie surement (enzymatic activity/volume) 106 U/L 40-136 Serum or plasma aspartate aminotransfera se measurement (enzymatic activity/volume) 16 U/L 5-34 Serum or plasma alanine aminotransferase measurement (enzymatic activity/volume) 15 U/L 0-55 Serum or plasma protein measurement (mass/volume) 6.1 g/dL 6.4-8.2 Serum or plasma albumin measurement (mass/volume) 2.7 g/dL 3.2-4.5 CALCIUM CORRECTED 9.4 mg/dL 8.5-10.1 Complete blood count (CBC) with automate d white blood cell (WBC) differential - 01/25/19 19:00 Blood leukocytes automated count (number/volume) 13.5 10*3/uL 4.3-11.0 Blood erythrocytes automated count (number/volume) 3.24 10*6/uL 4.35-5.85 Venous blood hemoglobin measurement (mass/volume) 11.0 g/dL 13.3-17.7 Blood hematocrit (volume fraction) 34 % 40-54 Automated erythrocyte mean corpuscular volume 105 [foz_us] 80-99 Automated erythrocyte mean corpuscular h emoglobin (mass per erythrocyte) 34 pg 25-34 Automated erythrocyte mean corpuscular h emoglobin concentration measurement (mass/volume) 32 g/dL 32-36 Automated erythrocyte distribution width ratio 16. 1 % 10.0- 14.5 Automated blood platelet count (count/volume) 263 10*3/uL 130-400 Automated blood platelet mean volume measurement 9.9 [foz_us] 7.4-10.4 Automated blood neutrophils/100 leukocytes 77 % 42-75 Automated blood lymphocytes/100 leukocytes 13 % 12-44 Blood monocytes/100 leukocytes 10 % 0-12 Automated blood eosinophils/100 leukocytes 1 % 0-10 Automated blood basophils/100 leukocytes 0 % 0-10 Blood neutrophils automated count (number/volume) 10.3 10*3 1.8-7.8 Blood lymphocytes automated count (number/volume) 1.8 10*3 1.0-4.0 Blood monocytes automated count (number/volume) 1. 3 10*3 0.0-1.0 Automated eosinophil count 0.1 10*3/uL 0 .0-0.3 Automated blood basophil count (count/volume) 0.0 10*3/uL 0.0-0.1 Complete urinalysis with reflex to cultu re - 01/25/19 20:45 Urine color determination YELLOW NRG Urine clarity determination CLEAR NR G Urine pH measurement by test strip 8 5-9 Specific gravity of urine by test strip 1.010 1.016-1.022 Urine protein assay by test strip, semi-quantitative NEGATIVE NEGATIVE Urine glucose detection by automated test strip NE GATIVE NEGATIVE Erythrocytes detection in urine sediment by light micr oscopy 3+ NEGATIVE Urine ketones detection by automated test strip NE GATIVE NEGATIVE Urine nitrite detection by test strip NEGATIVE NEGATIVE Urine total bilirubin detection by test strip NEGA TIVE NEGATIVE Urine urobilinogen measurement by automated test strip (mass/volume) NORMAL NORMAL Urine leukocyte esterase detection by dipstick 1+ NEGATIVE Automated urine sediment erythrocyte cou nt by microscopy (number/high power field) > [HPF] NRG Automated urine sediment leukocyte count by microscopy (number/high power field) [HPF] NRG Bacteria detection in urine sediment by light microsco py TRACE NRG Squamous epithelial cells detection in u rine sediment by light microscopy 0-2 NRG Crystals detection in urine sediment by light microsco py NONE NRG Casts detection in urine sediment by light microscopy NONE NRG Mucus detection in urine sediment by light microscopy NEGATIVE NRG Complete urinalysis with reflex to culture YES NRG Bacterial urine culture - 01/25/19 20:45 Bacterial urine culture GRAM POS M NRG COLONY COUNT 30,000 CFU/ML NRG FTX;REPORTABLE SUSCEPTIBILITY REPORTED 01-28-19 16 36 NRG FREE TEXT ENTRY 2 RESISTANT ORGANISM/CONTACT PERCA UTIONS NRG FREE TEXT ENTRY 3 VRE-VANCOMYCIN RESISTANT ENTEROC OCCI NRG Dirithromycin susceptibility test by dis k diffusion - 01/25/19 20:45 Vancomycin susceptibility test by minimum inhibitory c oncentration > NRG Levofloxacin susceptibility test by minimum inhibitory concentration > NRG Ampicillin susceptibility test by minimum inhibitory c oncentration > NRG Linezolid susceptibility test by minimum inhibitory co ncentration 2 NRG Daptomycin susc STEFANIA 2 NRG Complete blood count (CBC) with automate d white blood cell (WBC) differential - 01/26/19 05:23 Blood leukocytes automated count (number/volume) 14.6 10*3/uL 4.3-11.0 Blood erythrocytes automated count (number/volume) 2.99 10*6/uL 4.35-5.85 Venous blood hemoglobin measurement (mass/volume) 10.1 g/dL 13.3-17.7 Blood hematocrit (volume fraction) 31 % 40-54 Automated erythrocyte mean corpuscular volume 105 [foz_us] 80-99 Automated erythrocyte mean corpuscular h emoglobin (mass per erythrocyte) 34 pg 25-34 Automated erythrocyte mean corpuscular h emoglobin concentration measurement (mass/volume) 32 g/dL 32-36 Automated erythrocyte distribution width ratio 16. 3 % 10.0- 14.5 Automated blood platelet count (count/volume) 238 10*3/uL 130-400 Automated blood platelet mean volume measurement 10.6 [foz_us] 7.4-10.4 Automated blood neutrophils/100 leukocytes 81 % 42-75 Automated blood lymphocytes/100 leukocytes 8 % 12-44 Blood monocytes/100 leukocytes 10 % 0-12 Automated blood eosinophils/100 leukocytes 0 % 0-10 Automated blood basophils/100 leukocytes 0 % 0-10 Blood neutrophils automated count (number/volume) 11.9 10*3 1.8-7.8 Blood lymphocytes automated count (number/volume) 1.2 10*3 1.0-4.0 Blood monocytes automated count (number/volume) 1. 4 10*3 0.0-1.0 Automated eosinophil count 0.1 10*3/uL 0 .0-0.3 Automated blood basophil count (count/volume) 0.0 10*3/uL 0.0-0.1 Comprehensive metabolic panel - 01/26/19 05:23 Serum or plasma sodium measurement (moles/volume) 135 mmol/L 135-145 Serum or plasma potassium measurement (moles/volume) 4.3 mmol/L 3.6-5.0 Serum or plasma chloride measurement (moles/volume) 103 mmol/L 98-107 Carbon dioxide 21 mmol/L 21-32 Serum or plasma anion gap determination (moles/volume) 11 mmol/L 5-14 Serum or plasma urea nitrogen measurement (mass/volume ) 13 mg/dL 7-18 Serum or plasma creatinine measurement (mass/volume) 1.15 mg/dL 0.60-1.30 Serum or plasma urea nitrogen/creatinine mass ratio 11 NRG Serum or plasma creatinine measurement w ith calculation of estimated glomerular filtration rate > NRG Serum or plasma glucose measurement (mass/volume) 103 mg/dL 70-105 Serum or plasma calcium measurement (mass/volume) 8.5 mg/dL 8.5-10.1 Serum or plasma total bilirubin measurement (mass/volu me) 1.0 mg/dL 0.1-1.0 Serum or plasma alkaline phosphatase efrnie surement (enzymatic activity/volume) 101 U/L 40-136 Serum or plasma aspartate aminotransfera se measurement (enzymatic activity/volume) 16 U/L 5-34 Serum or plasma alanine aminotransferase measurement (enzymatic activity/volume) 15 U/L 0-55 Serum or plasma protein measurement (mass/volume) 5.8 g/dL 6.4-8.2 Serum or plasma albumin measurement (mass/volume) 2.6 g/dL 3.2-4.5 CALCIUM CORRECTED 9.6 mg/dL 8.5-10.1 Blood CBC with ordered manual differenti al panel - 01/27/19 10:45 Blood leukocytes automated count (number/volume) 7.6 10*3/uL 4.3-11.0 Blood erythrocytes automated count (number/volume) 2.98 10*6/uL 4.35-5.85 Venous blood hemoglobin measurement (mass/volume) 10.1 g/dL 13.3-17.7 Blood hematocrit (volume fraction) 31 % 40-54 Automated erythrocyte mean corpuscular volume 104 [foz_us] 80-99 Automated erythrocyte mean corpuscular h emoglobin (mass per erythrocyte) 34 pg 25-34 Automated erythrocyte mean corpuscular h emoglobin concentration measurement (mass/volume) 33 g/dL 32-36 Automated erythrocyte distribution width ratio 15. 7 % 10.0- 14.5 Automated blood platelet count (count/volume) 241 10*3/uL 130-400 Automated blood platelet mean volume measurement 10.4 [foz_us] 7.4-10.4 Automated blood neutrophils/100 leukocytes 72 % 42-75 Automated blood lymphocytes/100 leukocytes 15 % 12-44 Blood monocytes/100 leukocytes 7 % NRG Automated blood eosinophils/100 leukocytes 3 % 0-10 Automated blood basophils/100 leukocytes 0 % 0-10 Blood neutrophils automated count (number/volume) 5.5 10*3 1.8-7.8 Blood lymphocytes automated count (number/volume) 1.1 10*3 1.0-4.0 Blood monocytes automated count (number/volume) 0. 8 10*3 0.0-1.0 Automated eosinophil count 0.2 10*3/uL 0 .0-0.3 Automated blood basophil count (count/volume) 0.0 10*3/uL 0.0-0.1 Manual blood segmented neutrophils/100 leukocytes 73 % NRG Blood band neutrophils/100 leukocytes 3 % NRG Manual blood lymphocytes/100 leukocytes 13 % NRG Manual eosinophils/100 leukocytes in nose 4 % NRG Blood erythrocyte morphology finding identification NORMAL [facility] Comprehensive metabolic panel - 01/27/19 10:45 Serum or plasma sodium measurement (moles/volume) 137 mmol/L 135-145 Serum or plasma potassium measurement (moles/volume) 3.6 mmol/L 3.6-5.0 Serum or plasma chloride measurement (moles/volume) 106 mmol/L 98-107 Carbon dioxide 21 mmol/L 21-32 Serum or plasma anion gap determination (moles/volume) 10 mmol/L 5-14 Serum or plasma urea nitrogen measurement (mass/volume ) 15 mg/dL 7-18 Serum or plasma creatinine measurement (mass/volume) 1.23 mg/dL 0.60-1.30 Serum or plasma urea nitrogen/creatinine mass ratio 12 NRG Serum or plasma creatinine measurement w ith calculation of estimated glomerular filtration rate 58 NRG Serum or plasma glucose measurement (mass/volume) 158 mg/dL 70-105 Serum or plasma calcium measurement (mass/volume) 8.4 mg/dL 8.5-10.1 Serum or plasma total bilirubin measurement (mass/volu me) 0.3 mg/dL 0.1-1.0 Serum or plasma alkaline phosphatase fernie surement (enzymatic activity/volume) 104 U/L 40-136 Serum or plasma aspartate aminotransfera se measurement (enzymatic activity/volume) 17 U/L 5-34 Serum or plasma alanine aminotransferase measurement (enzymatic activity/volume) 11 U/L 0-55 Serum or plasma protein measurement (mass/volume) 5.8 g/dL 6.4-8.2 Serum or plasma albumin measurement (mass/volume) 2.5 g/dL 3.2-4.5 CALCIUM CORRECTED 9.6 mg/dL 8.5-10.1 Blood lactic acid measurement (moles/vol ume) - 01/27/19 10:45 Blood lactic acid measurement (moles/volume) 2.44 mmol/L 0.50-2.00 Serum or plasma lactate measurement (mol es/volume) - 01/27/19 13:00 Serum or plasma lactate measurement (moles/volume) 1.53 mmol/L 0.50-2.00 Blood lactic acid measurement (moles/vol ume) - 01/27/19 16:34 Blood lactic acid measurement (moles/volume) 2.36 mmol/L 0.50-2.00 Comprehensive metabolic panel - 01/29/19 05:14 Serum or plasma sodium measurement (moles/volume) 138 mmol/L 135-145 Serum or plasma potassium measurement (moles/volume) 3.8 mmol/L 3.6-5.0 Serum or plasma chloride measurement (moles/volume) 107 mmol/L 98-107 Carbon dioxide 24 mmol/L 21-32 Serum or plasma anion gap determination (moles/volume) 7 mmol/L 5-14 Serum or plasma urea nitrogen measurement (mass/volume ) 8 mg/dL 7-18 Serum or plasma creatinine measurement (mass/volume) 1.05 mg/dL 0.60-1.30 Serum or plasma urea nitrogen/creatinine mass ratio 8 NRG Serum or plasma creatinine measurement w ith calculation of estimated glomerular filtration rate > NRG Serum or plasma glucose measurement (mass/volume) 86 mg/dL 70-105 Serum or plasma calcium measurement (mass/volume) 8.4 mg/dL 8.5-10.1 Serum or plasma total bilirubin measurement (mass/volu me) 0.4 mg/dL 0.1-1.0 Serum or plasma alkaline phosphatase fernie surement (enzymatic activity/volume) 95 U/L 40-136 Serum or plasma aspartate aminotransfera se measurement (enzymatic activity/volume) 26 U/L 5-34 Serum or plasma alanine aminotransferase measurement (enzymatic activity/volume) 14 U/L 0-55 Serum or plasma protein measurement (mass/volume) 5.9 g/dL 6.4-8.2 Serum or plasma albumin measurement (mass/volume) 2.6 g/dL 3.2-4.5 CALCIUM CORRECTED 9.5 mg/dL 8.5-10.1 Complete blood count (CBC) with automate d white blood cell (WBC) differential - 01/29/19 05:34 Blood leukocytes automated count (number/volume) 5.8 10*3/uL 4.3-11.0 Blood erythrocytes automated count (number/volume) 3.03 10*6/uL 4.35-5.85 Venous blood hemoglobin measurement (mass/volume) 10.1 g/dL 13.3-17.7 Blood hematocrit (volume fraction) 31 % 40-54 Automated erythrocyte mean corpuscular volume 103 [foz_us] 80-99 Automated erythrocyte mean corpuscular h emoglobin (mass per erythrocyte) 33 pg 25-34 Automated erythrocyte mean corpuscular h emoglobin concentration measurement (mass/volume) 32 g/dL 32-36 Automated erythrocyte distribution width ratio 15. 0 % 10.0- 14.5 Automated blood platelet count (count/volume) 222 10*3/uL 130-400 Automated blood platelet mean volume measurement 10.6 [foz_us] 7.4-10.4 Automated blood neutrophils/100 leukocytes 65 % 42-75 Automated blood lymphocytes/100 leukocytes 21 % 12-44 Blood monocytes/100 leukocytes 11 % 0-12 Automated blood eosinophils/100 leukocytes 3 % 0-10 Automated blood basophils/100 leukocytes 1 % 0-10 Blood neutrophils automated count (number/volume) 3.7 10*3 1.8-7.8 Blood lymphocytes automated count (number/volume) 1.2 10*3 1.0-4.0 Blood monocytes automated count (number/volume) 0. 6 10*3 0.0-1.0 Automated eosinophil count 0.2 10*3/uL 0 .0-0.3 Automated blood basophil count (count/volume) 0.1 10*3/uL 0.0-0.1 [id number] - 04/19/19 13:09 Serum or plasma urea nitrogen measurement (mass/volume ) 13 mg/dL 7-18 Serum or plasma creatinine measurement (mass/volume) 1.22 mg/dL 0.60-1.30 Serum or plasma urea nitrogen/creatinine mass ratio 11 NRG Serum or plasma creatinine measurement w ith calculation of estimated glomerular filtration rate 59 NRG Methicillin resistant Staphylococcus aur eus (MRSA) screening culture - 05/23/19 13:20 MRSA SCREEN RESULT MRSA ISOLATED NRG Methicillin resistant Staphylococcus aur eus (MRSA) screening culture - 06/27/19 09:22 Methicillin resistant Staphylococcus aureus (MRSA) scr eening culture NEG NRG Complete blood count (CBC) with automate d white blood cell (WBC) differential - 10/31/19 16:45 Blood leukocytes automated count (number/volume) 10.7 10*3/uL 4.3-11.0 Blood erythrocytes automated count (number/volume) 4.01 10*6/uL 4.35-5.85 Venous blood hemoglobin measurement (mass/volume) 13.1 g/dL 13.3-17.7 Blood hematocrit (volume fraction) 40 % 40-54 Automated erythrocyte mean corpuscular volume 99 [ foz_us] 80-99 Automated erythrocyte mean corpuscular h emoglobin (mass per erythrocyte) 33 pg 25-34 Automated erythrocyte mean corpuscular h emoglobin concentration measurement (mass/volume) 33 g/dL 32-36 Automated erythrocyte distribution width ratio 13. 5 % 10.0- 14.5 Automated blood platelet count (count/volume) 220 10*3/uL 130-400 Automated blood platelet mean volume measurement 11.1 [foz_us] 7.4-10.4 Automated blood neutrophils/100 leukocytes 62 % 42-75 Automated blood lymphocytes/100 leukocytes 22 % 12-44 Blood monocytes/100 leukocytes 10 % 0-12 Automated blood eosinophils/100 leukocytes 5 % 0-10 Automated blood basophils/100 leukocytes 1 % 0-10 Blood neutrophils automated count (number/volume) 6.7 10*3 1.8-7.8 Blood lymphocytes automated count (number/volume) 2.4 10*3 1.0-4.0 Blood monocytes automated count (number/volume) 1. 1 10*3 0.0-1.0 Automated eosinophil count 0.5 10*3/uL 0 .0-0.3 Automated blood basophil count (count/volume) 0.1 10*3/uL 0.0-0.1 Comprehensive metabolic panel - 10/31/19 16:45 Serum or plasma sodium measurement (moles/volume) 139 mmol/L 135-145 Serum or plasma potassium measurement (moles/volume) 4.4 mmol/L 3.6-5.0 Serum or plasma chloride measurement (moles/volume) 102 mmol/L 98-107 Carbon dioxide 24 mmol/L 21-32 Serum or plasma anion gap determination (moles/volume) 13 mmol/L 5-14 Serum or plasma urea nitrogen measurement (mass/volume ) 19 mg/dL 7-18 Serum or plasma creatinine measurement (mass/volume) 1.69 mg/dL 0.60-1.30 Serum or plasma urea nitrogen/creatinine mass ratio 11 NRG Serum or plasma creatinine measurement w ith calculation of estimated glomerular filtration rate 40 NRG Serum or plasma glucose measurement (mass/volume) 68 mg/dL 70-105 Serum or plasma calcium measurement (mass/volume) 9.7 mg/dL 8.5-10.1 Serum or plasma total bilirubin measurement (mass/volu me) 0.4 mg/dL 0.1-1.0 Serum or plasma alkaline phosphatase fernie surement (enzymatic activity/volume) 80 U/L 40-136 Serum or plasma aspartate aminotransfera se measurement (enzymatic activity/volume) 16 U/L 5-34 Serum or plasma alanine aminotransferase measurement (enzymatic activity/volume) 11 U/L 0-55 Serum or plasma protein measurement (mass/volume) 8.2 g/dL 6.4-8.2 Serum or plasma albumin measurement (mass/volume) 4.3 g/dL 3.2-4.5 CALCIUM CORRECTED 9.5 mg/dL 8.5-10.1 Serum or plasma C reactive protein measu rement (mass/volume) - 10/31/19 16:45 Serum or plasma C reactive protein measurement (mass/v olume) 1.25 mg/dL 0.00-0.50 Serum ragweed IgE antibody assay - 10/30 16:45 Serum ragweed IgE antibody assay 213 U/L 125-220 PT panel in platelet poor plasma by coag ulation assay - 10/31/19 16:45 Prothrombin time (PT) in platelet poor plasma by coagu lation assay 14.4 s 12.2-14.7 INR in platelet poor plasma or blood by coagulation as say 1.1 0.8-1.4 Activated partial thromboplastin time (a PTT) in platelet poor plasma bycoagulation assay - 10/31/19 16:45 Activated partial thromboplastin time (a PTT) in platelet poor plasma bycoagulation assay 48 s 24-35 Fibrin D-dimer FEU measurement in platel et poor plasma (mass/volume) - 10/31/19 16:45 Fibrin D-dimer FEU measurement in platelet poor plasma (mass/volume) 0.46 ug/mL 0.00-0.49 Erythrocyte sedimentation rate by kae gren method - 10/31/19 16:45 Erythrocyte sedimentation rate by westergren method 22 mm 0- 30 Blood lactic acid measurement (moles/vol ume) - 10/31/19 16:45 Blood lactic acid measurement (moles/volume) 1.67 mmol/L 0.50-2.00 PROCALCITONIN (PCT) - 10/31/19 16:45 PROCALCITONIN (PCT) 0.07 ng/mL <0.10 Encounters ACCT No. Visit Date/Time Discharge Status Pt. Type Provider Facility Loc./Unit Complaint [id number] 05/07/2014 14:50:00 015 23:59:00 DIS Outpatient Sondra Grant Via [facility] [place] [facility] results [id number] 10/09/2019 10:36:00 23:59:59 CLS Outpatient AVINASH LOU MD Via [facility] RAD CKD STAGE 3 [id number] 08/24/2019 12:55:00 23:59:59 CLS Outpatient ELMER FLOREZ MD Via [facility] RAD ACUTE KIDNEY INJURY, R/ O HYDROPLASIA [id number] 06/27/2019 08:40:00 14:45:00 DIS Outpatient RAYMOND HESS MD Via [facility] LEFT CARPAL/CUBITAL TU NNEL SYNDROME [id number] 06/21/2019 12:30:00 13:15:00 DIS Outpatient RAYMOND HESS MD Via [facility] PREOP LEFT CARPAL/CUBITAL TU NNEL SYNDROME [id number] 05/30/2019 07:42:00 11:50:00 DIS Outpatient RAYMOND HESS MD Via [facility] SDC RIGHT CARPAL AND CUBIT AL TUNNEL SYNDROME [id number] 05/29/2019 12:25:00 23:59:59 CLS Outpatient SRIKANTH PETERSON APRN Via [facility] RAD COPD [id number] 05/23/2019 12:36:00 13:28:00 DIS Outpatient RAYMOND HESS MD Via [facility] PREOP RIGHT CARPAL AND CUBIT AL TUNNEL SYNDROME [id number] 04/19/2019 12:55:00 23:59:59 CLS Outpatient SRIKANTH PETERSON APRN Via [facility] RAD DISORDERS OF QUIQUE NG,LUNG NODULES,DYSPNEA,TOBACCO USE [id number] 03/26/2019 09:27:00 23:59:59 CLS Outpatient SRIKANTH PETERSON APRN Via [facility] RT REJI [id number] 02/05/2019 15:30:00 23:59:59 CLS Preadmit ELMER FLOREZ MD Via [facility] PULM COPD [id number] 11/06/2018 15:18:00 00:01:00 DIS Outpatient ELMER FLOREZ MD Via [facility] PULM COPD [id number] 01/08/2019 11:41:00 14:18:00 DIS Inpatient DUKE ABAD DO, V ia [facility] IRF DEBILITY [id number] 01/02/2019 14:51:00 11:19:00 DIS Inpatient WOOD SHAW MD Via [facility] 4TH AMS [id number] 12/23/2018 16:55:00 18:05:00 DIS Inpatient WOOD SHAW MD Via [facility] 4TH AFIB WITH RVR,ELECTROLY TE ABNORMALITIES [id number] 11/13/2018 08:58:00 23:59:59 CLS Preadmit SRIKANTH PETERSON APRN Via [facility] RAD HX OF NICOTINE DEP [id number] 10/26/2018 00:11:00 23:59:59 CLS Preadmit SRIKANTH PETERSON APRN Via [facility] PUL ADVANCED COPD,I NTERSTITIAL LUNG DISEASE [id number] 09/07/2018 10:00:00 00:01:00 DIS Outpatient SRIKANTH PETERSON APRN Via [facility] PULM ADVANCED COPD,I NTERSTITIAL LUNG DISEASE [id number] 10/12/2018 08:13:00 23:59:59 CLS Preadmit IJEOMA CULLEN FACAlan, DAGO CLAY CCDS Via [facility] RAD CAROTID ARTERIA L DISEASE,HTN,AAA,CAD [id number] 10/02/2018 09:42:00 23:59:59 CLS Outpatient SRIKANTH PETERSON APRN Via [facility] RAD LUNG NODULES [id number] 09/29/2018 07:16:00 10:10:00 DIS Outpatient ELMER FLOREZ MD Via [facility] ENDO NAUSEA/VOMITING/EPIGAST AME PAIN [id number] 09/28/2018 15:45:00 16:07:00 DIS Outpatient ELMER FLOREZ MD Via [facility] PREOP EGD [id number] 09/19/2018 06:52:00 13:00:00 DIS Outpatient IJEOMA CULLEN FACAlan, DAGO CLAY CC DS Via [facility] CATH CAD,HL,CKD STAGE 3,PAD,TOBACCO USER,CHEST DISCOMFO [id number] 08/30/2018 09:53:00 23:59:59 CLS Outpatient ELMER FLOREZ MD Via [facility] RT WEAKNESS,COPD [id number] 07/04/2018 10:00:00 00:01:00 DIS Outpatient SRIKANTH PETERSON APRN Via [facility] PUL ADVANCED COPD,I NTERSTITIAL LUNG DISEASE [id number] 03/23/2018 07:13:00 11/29/2 018 23:59:59 CLS Outpatient TANMAY MAI DO Via [facility] ENDO INTERSTITIAL LUNG DISEA SE [id number] 03/20/2018 05:51:00 16:07:00 DIS Outpatient TANMAY MAI DO Via [facility] PREOP BRONCHOSCOPY [id number] 03/07/2018 09:14:00 23:59:59 CLS Outpatient SRIKANTH PETERSON DELIMBER OPERATOR Via [facility] RAD B37.0,Z72.0 [id number] 03/01/2018 15:03:00 018 23:59:59 CLS Outpatient SRIKANTH PETERSON DELIMBER OPERATOR Via [facility] RAD PLEURAL EFFUSIO N,LUNG NODULES. [id number] 12/28/2017 16:05:00 018 23:59:59 CLS Outpatient SRIKANTH PETERSON DELIMBER OPERATOR Via [facility] RT J84.10 PULMONAR Y FIBROSIS [id number] 12/22/2017 08:50:00 018 23:59:59 CLS Outpatient GAUTAM CULLEN, ELMER Rodriges Via [facility] RAD ELEVATED TOTAL BILIRUBI N,EPIGASTRIC PAIN [id number] 12/21/2017 13:25:00 018 23:59:59 CLS Preadmit SRIKANTH PETERSON APRN Via [facility] RAD R06.00 DYSPNEA [id number] 12/12/2017 13:35:00 018 23:59:59 CLS Outpatient TANMAY MAI DO Via [facility] RAD ADVANCED COPD [id number] 06/14/2017 11:06:00 018 23:59:59 CLS Outpatient SRIKANTH PETERSON DELIMBER OPERATOR Via [facility] RAD R91.8 LUNG NODU LES [id number] 12/15/2016 10:53:00 017 23:59:59 CLS Outpatient SRIKANTH PETERSON DELIMBER OPERATOR Via [facility] RAD R91.1 LUNG NODU LE SEEN ON IMAGING STUDY [id number] 12/13/2016 09:44:00 017 23:59:59 CLS Outpatient BAIBARNEY BROWN DELIMBER OPERATOR Via [facility] LAB I25.10 N18.3 [id number] 08/09/2016 08:27:00 017 23:59:59 CLS Outpatient IJEOMA CULLEN FACC, DAGO CLAY CC DS Via [facility] LAB PAD,CAD,HYPERTENSION,CKD,HYPERLIPIDEMIA [id number] 06/24/2016 20:55:00 017 06:00:00 DIS Outpatient TANMAY MAI DO Via [facility] SLEEP PARASOMNIA,SLEEP DISTURBANCE,HYPERSOMNIA,SLEEP CREMATORIUM OPERATOR [id number] 06/07/2016 08:41:00 017 23:59:59 CLS Outpatient BARNEY KINSEY [facility] LAB HYPOKALEMIA [id number] 06/07/2016 08:35:00 017 23:59:59 CLS Outpatient TANMAY MAI DO Via [facility] RAD ADVNACED COPD,CHF [id number] 05/25/2016 11:22:00 017 23:59:59 CLS Outpatient IJEOMA CULLEN FACC, DAGO CLAY CC DS [facility] RAD PAD [id number] 05/24/2016 09:45:00 017 23:59:59 CLS Outpatient BARNEY KINSEY DELIMBER OPERATOR [facility] LAB HYPOKALEMIA,HYP OMAGNESEMIA [id number] 05/21/2016 12:12:00 017 23:59:59 CLS Outpatient BARNEY KINSEY L DELIMBER OPERATOR [facility] LAB HYPOKALEMIA [id number] 05/18/2016 06:57:00 017 10:55:00 DIS Outpatient IJEOMA CULLEN FACC, DAGO CLAY CC DS [facility] CATH CHF,HTN,TOB ACCO USER [id number] 05/14/2016 10:11:00 017 23:59:59 CLS Outpatient IJEOMA CULLEN FACC, DAGO CLAY CC DS [facility] CARD ACUTE DIAST OLIC CHF, HYERTENSION, ADVANCED COPD [id number] 05/12/2016 11:35:00 017 23:59:59 CLS Outpatient DAGO RAPHAEL MD, FACC, FACP CC DS [facility] RT ACUTE DIAST OLIC CHF, HYPERTENSION, ADVANCED COPD [id number] 05/11/2016 10:15:00 017 23:59:59 CLS Preadmit DAGO RAPHAEL MD, FACC, FACP CCDS [facility] RAD ACUTE DIASTOLIC CHF, HYPERTENSION, ADVANCED COPD [id number] 11/04/2015 08:26:00 016 23:59:59 CLS Outpatient BARNEY KINSEY [facility] CARD HTN,PAD,CAD [id number] 10/31/2019 18:13:[address] Inpatient GLORIA CULLEN, RUBI Taylor [facility] 4TH BILAT PNA, COVID 19 EVAL [id number] 03/10/2018 11:53:00 Document Registration
[2019-10-31 22:16] LABS: BILIRUBIN,URINE NEGATIVE (NEGATIVE); CLARITY,URINE SL CLOUDY; COLOR,URINE YELLOW; GLUCOSE, URINE (UA) NEGATIVE (NEGATIVE); KETONES,URINE NEGATIVE (NEGATIVE); LEUKOCYTE ESTERASE ,URINE NEGATIVE (NEGATIVE); NITRITE,URINE NEGATIVE (NEGATIVE); PROTEIN,URINE NEGATIVE (NEGATIVE)
[2019-10-31 22:23] LABS: BACTERIA,URINE NEGATIVE /HPF; SQUAMOUS EPITHELIAL CELL,UR RARE /HPF; WBC,URINE RARE /HPF
[2019-11-01] MEDS: CEFEPIME 1,000 MG/SWFI 10 ML IV PUSH IV SCH ×4 (00:55→06:39)
[2019-11-01 00:56] VITALS: BP 140/66
[2019-11-01] MEDS ORDERED: METO200T48 PO (02:32)
[2019-11-01] MEDS ORDERED: AMLO10TA7 PO (02:41)
[2019-11-01] MEDS ORDERED: DABI75CA3 PO (02:41)
[2019-11-01] MEDS ORDERED: CLOP75TA28 PO (02:46)
[2019-11-01] MEDS ORDERED: ESCI10TA55 PO (02:49)
[2019-11-01 04:08] VITALS: BP 144/67
[2019-11-01 04:21] LABS: BASOPHILS % (AUTO) 0 % (0-10); EOSINOPHILS # (AUTO) 0.5 10^3/uL (0.0-0.3); EOSINOPHILS % (AUTO) 5 % (0-10); HEMATOCRIT 36 % (40-54); HEMOGLOBIN 11.9 G/DL (13.3-17.7); LYMPHOCYTES # (AUTO) 1.8 X 10^3 (1.0-4.0); LYMPHOCYTES % (AUTO) 20 % (12-44); MEAN CORPUSCULAR HEMOGLOBIN 33 PG (25-34); MEAN CORPUSCULAR HGB CONC 33 G/DL (32-36); MEAN CORPUSCULAR VOLUME 99 FL (80-99); MEAN PLATELET VOLUME 10.8 FL (7.4-10.4); MONOCYTES # (AUTO) 0.8 X 10^3 (0.0-1.0); MONOCYTES % (AUTO) 9 % (0-12); NEUTROPHILS % (AUTO) 66 % (42-75); PLATELET COUNT 186 10^3/uL (130-400); RED CELL DISTRIBUTION WIDTH 13.7 % (10.0-14.5)
[2019-11-01 04:39] LABS: ALBUMIN 3.7 GM/DL (3.2-4.5); BILIRUBIN,TOTAL 0.3 MG/DL (0.1-1.0); CALCIUM 9.2 MG/DL (8.5-10.1); CREATININE SERUM 1.52 MG/DL (0.60-1.30); POTASSIUM 4.7 MMOL/L (3.6-5.0); TOTAL PROTEIN 7.2 GM/DL (6.4-8.2)
[2019-11-01 08:15] VITALS: BP 168/81
[2019-11-01] MEDS ORDERED: CEFD300C3 PO (10:01)
--- NOTE | 2019-11-01 10:24 | NUR ---
PT UP TO BATHROOM WITH WALKER ON ROOM AIR. 94% ON RA PRIOR TO AMBULATING. PT OXYGEN 82% ONCE TO BATHROOM. AFTER SITTING FOR SEVERAL MINUTES OXYGEN UP TO 92%. PT DEIDRA FEELING SHORT OF BREATH OR DIZZYNESS UPON AMBULATING. WILL NOTIFY .
--- NOTE | 2019-11-01 11:27 | NUR ---
PTS SP02 94% WHILE SITTING,BEFORE WALKING. SP02 DROPPED TO 82% AFTER 3MINS OF WALKING. PT WAS ABLE TO RECOVER,AFTER SITTING TO 92%. NC APPLIED TO PATIENT @ 2LPM. SP02 RUNS 94-95% WHILE ON 2LPM WALKING/RESTING. PT QUALIFIES FOR 2LPM AT ALL TIMES. Addendum: 11/01/19 at 1131 by MIRANDA DURAND RT Amended: Links added.
--- NOTE | 2019-11-01 16:00 | NUR ---
PT COVID TEST NEGATIVE DR CASTRO NOTIFIED.
--- NOTE | 2019-11-02 07:44 | Physician Query Clarification ---
PQ-Uncertain Diagnosis Admission/Discharge Admission Date: Oct 31, 2019 at 18:13 Discharge Date: Nov 01, 2019 at 16:15 The medical record reflects the following clinical scenario: History/Risk Factors: Emphysema, atrial fibrillation, CAD, HTN Clinical Findings: IMPRESSION: Mild bilateral reticular and patchy pulmonary opacities. The majority appear new since 2019, consistent with an acute infiltrate. This is a nonspecific finding though may relate to organizing pneumonia, including COVID-19. Recommend clinical correlation and correlation with potential lab test. Treatment: IV Cefepime Question: Is Pneumonia a clinically valid diagnosis? Pneumonia was documented in the ER record with no further documentation in the medical record. Please document a response in Progress Note or Discharge Summary. 1. Yes, clinically valid, condition resolved. 2. No, condition ruled out. (Please list patient's condition) 3. Other, with explanation of clinical findings. 4. Undetermined, no explanation for clinical findings. PHYSICIAN RESPONSE Diagnosis clinically valid: Yes, Conditon resolved Please remember a lack of response to the above will prompt a phone page by CDI/Coding staff. In responding to this query, please exercise your independent professional judgment. The purpose of this communication is to more accurately reflect the complexity of your patients condition. The fact that a question is asked does not imply that any particular answer is desired or expected. Thank you for your timely response to this clarification. Requestors name: Elizabeth THIS PHYSICIAN QUERY FORM IS A PERMANENT PART OF THE MEDICAL RECORD ELIZABETH RUCKER Nov 02, 2019 07:43 RUBI CASTRO MD Nov 02, 2019 07:57
--- NOTE | 2019-11-03 12:57 | Discharge Summary ---
Discharge Summary Hospital Course Was the Problem List Reviewed?: Yes Problems/Dx: (1) Pneumonia Status: Acute Qualifiers: Qualified Codes: J18.9 - Pneumonia, unspecified organism Hospital Course Date of Admission: Oct 31, 2019 at 18:13 Admission Diagnosis : bilateral pneumonia Family Physician/Provider: Elmer Florez MD Date of Discharge: 11/03/19 Discharge Diagnosis: bilateral pneumonia Hospital Course: Sebastien Toledo is a 74-year-old male who was admitted with pneumonia. He was started on IV antibiotics and improved rapidly. He was transitioned to oral Omnicef on discharge. He was tested for COVID and was negative. He was requiring supplemental oxygen and respiratory therapy conducted and oxygen evaluation. He did require 2 L continuously. He was discharged home in stable condition. He should follow-up with his primary care physician and a week or two. Labs and Pending Lab Test: Microbiology 10/31/19 Blood Culture - Preliminary, Resulted No growth Home Meds Active Cefdinir 300 Mg Capsule 300 Mg PO BID 6 Days Furosemide 40 Mg Tablet 40 Mg PO Q48H 30 Days Requip (Ropinirole HCl) 0.25 Mg Tab 0.5 Mg PO HS PRN Reported Escitalopram Oxalate 10 Mg Tablet 10 Mg PO BID Clopidogrel (Clopidogrel Bisulfate) 75 Mg Tablet 75 Mg PO UD EVERY OTHER DAY Pradaxa (Dabigatran Etexilate Mesylate) 75 Mg Capsule 75 Mg PO BID Amlodipine Besylate 10 Mg Tablet 10 Mg PO DAILY Metoprolol Succinate 200 Mg Tab.er.24h 100 Mg PO DAILY Multivitamins (Multivitamin) 1 Each Capsule 1 Each PO DAILY Gabapentin 100 Mg Capsule 200 Mg PO TID Potassium Chloride 10 Meq Capsule.er 10 Meq PO BID Ativan (Lorazepam) 0.5 Mg Tablet 0.5 Mg PO TID PRN Omeprazole 20 Mg Capsule.dr 20 Mg PO HS Losartan Potassium 100 Mg Tablet 100 Mg PO DAILY Assessment/Pt Instructions take medications as prescribed. Complete your course of antibiotics even appear feeling better. Follow-up with your primary care physician. Your being started on supplemental oxygen 2 L continuously. Discharge Planning: <30 minutes discharge planning Discharge Instructions Discharge Diet: No Restrictions Discharge Physical Examination Vital Signs Vital Signs Date Time Temp Pulse Resp B/P (MAP) Pulse Ox O2 Delivery O2 Flow Rate FiO2 11/01/19 16:15 37.2 79 20 94 Nasal Cannula 2.00 General Appearance: No Apparent Distress, Obese HEENT: PERRL/EOMI, Pharynx Normal Respiratory: Lungs Clear, Normal Breath Sounds, No Respiratory Distress Cardiovascular: Regular Rate, Rhythm, No Edema, No Murmur Gastrointestinal: Normal Bowel Sounds, Non Tender, Soft Extremity: Normal Inspection, Non Tender, No Pedal Edema Skin: Normal Color, Warm/Dry Neurologic/Psychiatric: Alert, Oriented x3, No Motor/Sensory Deficits, Normal Mood/Affect Allergies: Coded Allergies: Sulfa (Sulfonamide Antibiotics) (Verified Allergy, Mild, HIVES, 06/21/19) codeine (Verified Allergy, Mild, GI UPSET, pt has taken Lortab in the past, 06/21/19) meperidine (Verified Allergy, Mild, N/V, PATIENT TOLERATES FENTANYL, 06/21/19) Copy Copies To 1: ELMER FLOREZ MD Discharge Summary Date of Admission Oct 31, 2019 at 18:13 Date of Discharge Nov 01, 2019 at 16:15 Discharge Date: Nov 01, 2019 Discharge Time: 16:15 Admission Diagnosis bilateral pneumonia Discharge Diagnosis (1) Pneumonia Status: Acute Qualifiers: Qualified Codes: J18.9 - Pneumonia, unspecified organism Clinical Quality Measures DVT/VTE Risk/Contraindication: Risk Factor Score Per Nursin RFS Level Per Nursing on Admit: 4+=Very High RUBI CASTRO MD Nov 03, 2019 12:57
== END 2019-11-01 16:15 | disposition home or self-care (01) | DRG 195 ==
LOC: EDUNIT# 16:21 → ER 16:22 → 4TH 18:13
PROVIDERS: ADMIT Internal Medicine; ATTEND Internal Medicine
DX: J18.9 Pneumonia, unspecified organism (principal); I48.91 Unspecified atrial fibrillation; J43.9 Emphysema, unspecified; I25.10 Atherosclerotic heart disease of native coronary artery without angina pectoris; Z66 Do not resuscitate; I10 Essential (primary) hypertension; G47.30 Sleep apnea, unspecified; J30.2 Other seasonal allergic rhinitis; I73.9 Peripheral vascular disease, unspecified; K21.9 Gastro-esophageal reflux disease without esophagitis; M19.91 Primary osteoarthritis, unspecified site; Z20.828 Contact with and (suspected) exposure to other viral communicable diseases; Z95.5 Presence of coronary angioplasty implant and graft; Z87.891 Personal history of nicotine dependence; Z95.828 Presence of other vascular implants and grafts; Z96.652 Presence of left artificial knee joint; Z87.19 Personal history of other diseases of the digestive system
CPT/HCPCS: 36415; 71045; 80053; 81000; 83605; 83615; 84145; 85025; 85379; 85610; 85652; 85730; 86141; 87040; 87635; 94640; 94664; 94761

== ENCOUNTER → 2020-04-03 | Outpatient (CLI) | payer MEDICARE, OTHER ==
[~2020-04-03] MED LIST changes: +AMLO-250 PO; +AMLO-251 PO; -AMLO10TA7 PO; -AMLO5TAB9 PO; +ASPI-1238 PO; -ASPI-983 PO; +CEFD300C3 PO; +ESCI10TA55 PO; +METO200T48 PO; -MONT10TA26 PO; +MONT10TA97 PO
== END ==
LOC: CARD 13:11
PROVIDERS: ATTEND Internal Medicine Cardiovascular Disease
DX: I51.7 Cardiomegaly (principal); R06.09 Other forms of dyspnea
CPT/HCPCS: 93306

== ENCOUNTER 2020-05-06 11:04 | Inpatient (IN) | payer MEDICARE, OTHER ==
[~2020-05-06] VITALS: Ht 182 cm; Wt 123.6 kg
[~2020-05-06 11:04] MED LIST changes: -ESCI10TA55 PO; +ESCI10TA64 PO; -FOLI1TAB24 PO; +FOLI1TAB33 PO
--- NOTE | 2020-05-06 11:15 | NUR ---
PT PLACED ON REGULAR OXYGEN AT 2L ET PULSE OX WAS 60-70% ET THEN I INCREASED TO 5L NC. PULSE OX INCREASED TO MID 80'S. PT THEN PLACED ON A OXYMASK AT 10 L AND PT THEN INCREASED TO MID 90'S PULSE OX.
[2020-05-06] MEDS ORDERED: dexAMETHasone 6 MG TAB (DECADRON) ONE (11:23)
[2020-05-06] MEDS ORDERED: dexAMETHasone 6 MG TAB (DECADRON) PO ONE (11:45)
[2020-05-06] MEDS ORDERED: RT-ALBUTEROL INHALER HFA (VENTOLIN HFA) 18 GM IH ONE (11:51)
[2020-05-06] MEDS ORDERED: LACTATED RINGERS 1,000 ML IV ONE ×2 (11:55→12:00)
[2020-05-06 12:06] LABS: BASOPHILS % (AUTO) 0 % (0-10); EOSINOPHILS % (AUTO) 0 % (0-10); HEMATOCRIT 44 % (40-54); HEMOGLOBIN 14.5 g/dL (13.3-17.7); LYMPHOCYTES # (AUTO) 0.9 10^3/uL (1.0-4.0); LYMPHOCYTES % (AUTO) 8 % (12-44); MEAN CORPUSCULAR HEMOGLOBIN 31 pg (25-34); MEAN CORPUSCULAR HGB CONC 33 g/dL (32-36); MEAN CORPUSCULAR VOLUME 93 fL (80-99); MEAN PLATELET VOLUME 11.1 fL (9.0-12.2); MONOCYTES # (AUTO) 1.2 10^3/uL (0.0-1.0); MONOCYTES % (AUTO) 10 % (0-12); NEUTROPHILS # (AUTO) 9.4 10^3/uL (1.8-7.8); NEUTROPHILS % (AUTO) 81 % (42-75); PLATELET COUNT 321 10^3/uL (130-400); WHITE BLOOD COUNT 11.5 10^3/uL (4.3-11.0)
[2020-05-06 12:12] LABS: ALBUMIN 4.3 GM/DL (3.2-4.5); POTASSIUM 4.2 MMOL/L (3.6-5.0)
[2020-05-06 12:13] LABS: CALCIUM 9.7 MG/DL (8.5-10.1)
[2020-05-06 12:14] LABS: FIBRIN DEGRADATION PRODUCTS 1.52 UG/ML (0.00-0.49); INR 1.4 (0.8-1.4); PROTHROMBIN TIME PATIENT 17.5 SEC (12.2-14.7); TOTAL PROTEIN 8.6 GM/DL (6.4-8.2)
[2020-05-06 12:16] LABS: BILIRUBIN,TOTAL 1.2 MG/DL (0.1-1.0)
[2020-05-06 12:18] LABS: CREATININE SERUM 1.65 MG/DL (0.60-1.30)
[2020-05-06 12:28] LABS: BAND NEUTROPHILS 2 %; BASOPHILS % (MANUAL) 0 %; EOSINOPHILS % (MANUAL) 0 %; LYMPHOCYTES % (MANUAL) 6 %; MONOCYTES % (MANUAL) 10 %; NEUTROPHILS % (MANUAL) 82 %
[2020-05-06 12:29] LABS: RBC MORPH NORMAL
--- NOTE | 2020-05-06 12:45 | Diagnostic Imaging Report ---
INDICATION: Dyspnea in patient with sepsis. EXAMINATION: Single AP view of the chest is obtained with comparison made to study of 10/31/2019. FINDINGS: There has been development of moderate airspace disease throughout the lungs bilaterally. No pneumothorax is identified. There is no significant midline shift. IMPRESSION: Bilateral airspace disease which could be due to pulmonary edema or possible pneumonitis. Clinical correlation would be of use. Dictated by: Dictated on workstation # [id number]
--- NOTE | 2020-05-06 13:00 | NUR ---
UPDATED THAT THE PT WOULD BE ADMITTED.
--- NOTE | 2020-05-06 13:05 | NUR ---
ATTEMPT X2 FOR ABG UNSUCCESSFUL. RT CONTACTED.
[2020-05-06 13:25] LABS: ABG BASE EXCESS -1.4 MMOL/L (-2.5-2.5); ABG OXYGEN SATURATION 93 % (94-100); ABG PCO2 40 MMHG (35-45); ABG PH 7.38 (7.37-7.43); ABG PO2 72 MMHG (79-93); ABG TCO2 24.2 MMOL/L (21.0-31.0)
[2020-05-06 13:27] LABS: ALLENS TEST POS; INSPIRED O2 10L; VENTILATOR NO
[2020-05-06 13:28] LABS: PATIENT TEMP 37
--- NOTE | 2020-05-06 13:42 | ED General ---
General Chief Complaint: Respiratory Problems Stated Complaint: COVID + Nursing Triage Note: ASSISTED PT TO WC WITH COMPLAINTS OF INCREASED SOA AND DIARRHEA. PT WEARING OXYGEN ON AT 2L IN CAR. Nursing Sepsis Screen: No Definite Risk Source of Information: Patient Exam Limitations: No Limitations History of Present Illness Date Seen by Provider: May 06, 2020 Time Seen by Provider: 11:22 Initial Comments Here by POV with report of shortness of air and diarrhea. Does have history of COPD and wears O2 at 2 L normally. Patient is currently dyspneic and hypoxic with O2 sat 50% on arrival and 88% on 5 L. Reports that he was likely exposed to COVID-19 through his irtpnl-pq-qiz's at the beginning of the year and has not felt well for the last week or more. Mild fevers at home. Does report body aches and diarrhea. He is requiring more oxygen. Timing/Duration: 1 Week, Getting Worse Severity: Severe Modifying Factors: worse with Movement Associated Systoms: No Chest Pain; Cough, Fever/Chills, Nausea/Vomiting, Shortness of Air, Weakness Allergies and Home Medications Allergies Coded Allergies: Sulfa (Sulfonamide Antibiotics) (Verified Allergy, Mild, HIVES, 06/21/19) codeine (Verified Allergy, Mild, GI UPSET, pt has taken Lortab in the past, 06/21/19) meperidine (Verified Allergy, Mild, N/V, PATIENT TOLERATES FENTANYL, 06/21/19) Home Medications Amlodipine Besylate 10 Mg Tablet, 10 MG PO DAILY, (Reported) Cefdinir 300 Mg Capsule, 300 MG PO BID Prescribed by: RUBI CASTRO on 11/01/19 1001 Clopidogrel Bisulfate 75 Mg Tablet, 75 MG PO UD, (Reported) EVERY OTHER DAY Dabigatran Etexilate Mesylate 75 Mg Capsule, 75 MG PO BID, (Reported) Escitalopram Oxalate 10 Mg Tablet, 10 MG PO BID, (Reported) Furosemide 40 Mg Tablet, 40 MG PO Q48H Prescribed by: DUKE ABAD on 01/29/19 0815 Gabapentin 100 Mg Capsule, 200 MG PO TID, (Reported) Lorazepam 0.5 Mg Tablet, 0.5 MG PO TID PRN for ANXIETY, (Reported) Losartan Potassium 100 Mg Tablet, 100 MG PO DAILY, (Reported) Metoprolol Succinate 200 Mg Tab.er.24h, 100 MG PO DAILY, (Reported) Multivitamin 1 Each Capsule, 1 EACH PO DAILY, (Reported) Omeprazole 20 Mg Capsule.dr, 20 MG PO HS, (Reported) Potassium Chloride 10 Meq Capsule.er, 10 MEQ PO BID, (Reported) Ropinirole HCl 0.25 Mg Tab, 0.5 MG PO HS PRN for restless legs Prescribed by: DUKE ABAD on 01/29/19 0815 Patient Home Medication List Home Medication List Reviewed: Yes Review of Systems Review of Systems Constitutional: see HPI; No chills, No fever EENTM: nose congestion; No throat pain Respiratory: cough, short of breath Cardiovascular: no symptoms reported Gastrointestinal: diarrhea, nausea, vomiting Genitourinary: no symptoms reported Musculoskeletal: muscle pain, muscle weakness Skin: no symptoms reported Psychiatric/Neurological: No Symptoms Reported All Other Systems Reviewed Negative Unless Noted: Yes Past Pqbmvrb-Iyynpu-Snfhyb Hx Past Med/Social Hx: Reviewed Nursing Past Med/Soc Hx Patient Social History Alcohol Use: Past History Smoking Status: Former Smoker Type Used: Cigarettes Former Smoker, Quit: Dec 25, 2018 2nd Hand Smoke Exposure: Yes Recent Infectious Disease Expo: No Recent Hopitalizations: Yes (DEC-FEB FOR A-FIB) Immunizations Up To Date Tetanus Booster (TDap): Unknown PED Vaccines UTD: No Date of Pneumonia Vaccine: Apr 25, 2015 Date of Influenza Vaccine: Jan 29, 2019 Seasonal Allergies Seasonal Allergies: Yes Past Medical History Surgeries: Yes (L TKR, STENTS R LEG X2, BACK, KIDNEY STONES, RIGHT CTR) Coronary Stent, Gallbladder, Joint Replacement Respiratory: Yes Asthma, Sleep Apnea, COPD, Emphysema Currently Using CPAP: No Currently Using BIPAP: No Cardiac: Yes (STENT-2017) Atrial Fibrillation, Coronary Artery Disease, Hypertension, Peripheral Vascular Neurological: No Sexually Transmitted Disease: No HIV/AIDS: No Genitourinary: Yes Kidney Stones Gastrointestinal: Yes Gastroesophageal Reflux, Pancreatitis Musculoskeletal: Yes Arthritis Endocrine: No HEENT: No (GLASSES) Loss of Vision: Denies Hearing Impairment: Denies Cancer: No Skin What Type of Treatment Did You: Surgical Intervention Psychosocial: No Integumentary: No Blood Disorders: No Adverse Reaction/Blood Tranf: No (N/A) Family Medical History Reviewed Nursing Family Hx Cardiovascular disease 19 FATHER Diabetes mellitus 19 MOTHER FH: liver cancer 19 FATHER FH: lung cancer 19 MOTHER Cancer Physical Exam-Suspected Sepsis Physical Exam Vital Signs Vital Signs - First Documented 05/06/20 11:15 Temp 37.8 Pulse 92 Resp 16 B/P (MAP) 139/89 (106) Pulse Ox 69 O2 Delivery OxyMask O2 Flow Rate 10.00 Capillary Refill : Less Than 3 Seconds Blood Pressure Mean: 106 Height, Weight, BMI Height: 5'11.00" Weight: 191lbs. 0.0oz. [id number]; 34.00 BMI Method:Stated General Appearance: WD/WN, Chronically ill, Moderate Distress HEENT: PERRL/EOMI, Pharynx Normal, Other (Mucous membranes dry) Neck: Non Tender, Supple Respiratory: Crackles, Decreased Breath Sounds, Expiration, Respiratory Distress, Wheezing Cardiovascular: No Murmur, Tachycardia Gastrointestinal: Non Tender, Soft Back: Normal Inspection, No CVA Tenderness, No Vertebral Tenderness Extremity: Normal Range of Motion, Non Tender Neurologic/Psychiatric: Alert, Oriented x3 Skin: normal color, warm/dry Focused Exam Lactate Level 05/06/20 11:45: Lactic Acid Level 1.63 Lactic Acid Level Laboratory Tests Test 05/06/20 11:45 Lactic Acid Level 1.63 MMOL/L (0.50-2.00) Progress/Results/Core Measures Suspected Sepsis Recent Fever Within 48 Hours: No Infection Criteria Present: Suspected New Infection New/Unexplained Altered Menta: No Sepsis Screen: No Definite Risk SIRS Temperature: Pulse: 92 Respiratory Rate: 16 Laboratory Tests 05/06/20 11:45: White Blood Count 11.5H Blood Pressure 139 /89 Mean: 106 05/06/20 11:45: Lactic Acid Level 1.63 Laboratory Tests 05/06/20 11:45: Creatinine 1.65H, INR Comment 1.4, Platelet Count 321, Total Bilirubin 1.2H Results/Orders Lab Results Laboratory Tests Test 05/06/20 11:30 05/06/20 11:45 05/06/20 13:12 Range/Units Coronavirus 2019 (RADHA) Positive H Negative White Blood Count 11.5 H 4.3-11.0 10^3/uL Red Blood Count 4.71 4.30-5.52 10^6/uL Hemoglobin 14.5 13.3-17.7 g/dL Hematocrit 44 40-54 % Mean Corpuscular Volume 93 80-99 fL Mean Corpuscular Hemoglobin 31 25-34 pg Mean Corpuscular Hemoglobin Concent 33 32-36 g/dL Red Cell Distribution Width 13.4 10.0-14.5 % Platelet Count 321 130-400 10^3/uL Mean Platelet Volume 11.1 9.0-12.2 fL Immature Granulocyte % (Auto) 0 % Neutrophils (%) (Auto) 81 H 42-75 % Lymphocytes (%) (Auto) 8 L 12-44 % Monocytes (%) (Auto) 10 0-12 % Eosinophils (%) (Auto) 0 0-10 % Basophils (%) (Auto) 0 0-10 % Neutrophils # (Auto) 9.4 H 1.8-7.8 10^3/uL Lymphocytes # (Auto) 0.9 L 1.0-4.0 10^3/uL Monocytes # (Auto) 1.2 H 0.0-1.0 10^3/uL Eosinophils # (Auto) 0.0 0.0-0.3 10^3/uL Basophils # (Auto) 0.0 0.0-0.1 10^3/uL Immature Granulocyte # (Auto) 0.1 0.0-0.1 10^3/uL Neutrophils % (Manual) 82 % Lymphocytes % (Manual) 6 % Monocytes % (Manual) 10 % Eosinophils % (Manual) 0 % Basophils % (Manual) 0 % Band Neutrophils 2 % Blood Morphology Comment NORMAL Prothrombin Time 17.5 H 12.2-14.7 SEC INR Comment 1.4 0.8-1.4 Activated Partial Thromboplast Time 36 H 24-35 SEC D-Dimer 1.52 H 0.00-0.49 UG/ML Sodium Level 131 L 135-145 MMOL/L Potassium Level 4.2 3.6-5.0 MMOL/L Chloride Level 95 L 98-107 MMOL/L Carbon Dioxide Level 22 21-32 MMOL/L Anion Gap 14 5-14 MMOL/L Blood Urea Nitrogen 20 H 7-18 MG/DL Creatinine 1.65 H 0.60-1.30 MG/DL Estimat Glomerular Filtration Rate 41 BUN/Creatinine Ratio 12 Glucose Level 153 H 70-105 MG/DL Lactic Acid Level 1.63 0.50-2.00 MMOL/L Calcium Level 9.7 8.5-10.1 MG/DL Corrected Calcium 9.5 8.5-10.1 MG/DL Total Bilirubin 1.2 H 0.1-1.0 MG/DL Aspartate Amino Transf (AST/SGOT) 40 H 5-34 U/L Alanine Aminotransferase (ALT/SGPT) 29 0-55 U/L Alkaline Phosphatase 97 40-136 U/L C-Reactive Protein High Sensitivity 15.46 H 0.00-0.50 MG/DL Total Protein 8.6 H 6.4-8.2 GM/DL Albumin 4.3 3.2-4.5 GM/DL Procalcitonin 0.29 H <0.10 NG/ML Blood Gas Puncture Site RGHT RAD Blood Gas Patient Temperature 37 Arterial Blood pH 7.38 7.37-7.43 Arterial Blood Partial Pressure CO2 40 35-45 MMHG Arterial Blood Partial Pressure O2 72 L 79-93 MMHG Arterial Blood HCO3 23 23-27 MMOL/L Arterial Blood Total CO2 24.2 21.0-31.0 MMOL/L Arterial Blood Oxygen Saturation 93 L 94-100 % Arterial Blood Base Excess -1.4 -2.5-2.5 MMOL/L Herman Test POS Blood Gas Ventilator Setting NO Blood Gas Inspired Oxygen 10L Micro Results Microbiology 05/06/20 Influenza Types A,B Antigen (STEFANIA) - Final, Complete My Orders Orders - MARY BARKER MD Dexamethasone Tablet (Decadron Tablet) (05/06/20 11:23) Dexamethasone Tablet (Decadron Tablet) (05/06/20 11:45) Covid 19 Inhouse Test (05/06/20 11:30) Albuterol Inhaler (Ventolin Hfa) (05/06/20 11:51) Cbc With Automated Diff (05/06/20 11:56) Comprehensive Metabolic Panel (05/06/20 11:56) Blood Culture (05/06/20 11:56) Sputum Culture (05/06/20 11:56) Urinalysis (05/06/20 11:56) Urine Culture (05/06/20 11:56) Protime With Inr (05/06/20 11:56) Partial Thromboplastin Time (05/06/20 11:56) Chest 1 View, Ap/Pa Only (05/06/20 11:56) Ed Iv/Invasive Line Start (05/06/20 11:56) Vital Signs Adult Sepsis Patie Q15M (05/06/20 11:56) O2 (05/06/20 11:56) Remove Rings In Anticipation O (05/06/20 11:56) Lactic Acid Analyzer (05/06/20 11:56) Influenza A And B Antigens (05/06/20 11:56) Fibrin Degradation Products (05/06/20 11:56) Procalcitonin (Pct) (05/06/20 11:56) Hs C Reactive Protein (05/06/20 11:56) Covid 19 Inhouse Test (05/06/20 11:56) Lactated Ringers (Lr 1000 Ml Iv Solution (05/06/20 12:00) Manual Differential (05/06/20 11:45) Arterial Blood Gas (05/06/20 13:18) Medications Given in ED Current Medications Medications Dose Ordered Sig/Justen Route Start Time Stop Time Status Last Admin Dose Admin Dexamethasone 6 mg ONCE ONCE PO 05/06/20 11:45 05/06/20 11:46 DC 05/06/20 11:52 6 MG Lactated Ringer's 1,000 ml @ 0 mls/hr Q0M ONCE IV 05/06/20 12:00 05/06/20 12:01 DC 05/06/20 11:59 1,000 MLS/HR Vital Signs/I&O 05/06/20 05/06/20 11:15 11:15 Temp 37.8 Pulse 92 Resp 16 B/P (MAP) 139/89 (106) Pulse Ox 69 O2 Delivery OxyMask Room Air O2 Flow Rate 10.00 Capillary Refill : Less Than 3 Seconds Blood Pressure Mean: 106 Progress Note : Progress Note Seen and evaluated. IV, labs, blood cultures, lactic acid, COVID-19 testing, influenza testing, Decadron 6 mg p.o., albuterol MDI 2 puffs via spacer and LR 1 L bolus ordered. Sepsis protocol initiated. Patient has presentation concerning for COVID-19. Appropriate precautions initiated on arrival. Patient doing better on oxygen mask at 10 L and we will continue that. Monitor patient. 1340: Patient is positive for COVID-19. He has had illness for 10 to 12 days potentially. Findings are concerning for late COVID-19 infection. Patient does require admission. I did discuss the case with Dr. Brown and she accepts patient for admission, inpatient status to the ICU. Findings and concerns were discussed with the patient who agrees with the plan. Patient has advanced chronic disease as well as current significant acute infection of the lungs from COVID-19 and is at high risk for mortality. Diagnostic Imaging Diagonstic Imaging: Xray Plain Films/CT/US/NM/MRI: chest Comments [facility] [place], [place] NAME: PAULINA VALDERRAMA [facility] REC#: [id number] PT STATUS: REG ER : 1945 PHYSICIAN: MARY BARKER MD ADMIT DATE: 05/06/20/ER Draft Date of Exam:05/06/20 CHEST 1 VIEW, AP/PA ONLY INDICATION: Dyspnea in patient with sepsis. EXAMINATION: Single AP view of the chest is obtained with comparison made to study of 10/31/2019. FINDINGS: There has been development of moderate airspace disease throughout the lungs bilaterally. No pneumothorax is identified. There is no significant midline shift. IMPRESSION: Bilateral airspace disease which could be due to pulmonary edema or possible pneumonitis. Clinical correlation would be of use. Dictated on workstation # [id number] Dict: 05/06/20 1243 Trans: 05/06/20 1244 [facility] [id number] Interpreted by: ADAMA OLIVEIRA MD Electronically signed by: Departure Communication (Admissions) Time/Spoke to Admitting Phy: 13:40 Impression Primary Impression: Pneumonia due to COVID-19 virus Additional Impressions: Respiratory distress Hypoxia Disposition: ADMITTED INPATIENT Condition: Critical Admissions Decision to Admit Reason: Admit from ER (General) Decision to Admit/Date: May 06, 2020 Time/Decision to Admit Time: 13:40 Departure-Patient Inst. Referrals: ELMER FLOREZ MD (PCP/Family) Primary Care Physician MARY BARKER MD May 06, 2020 13:42
[2020-05-06] MEDS ORDERED: RT-ALBUTEROL INHALER HFA (VENTOLIN HFA) 18 GM IH SCH (14:00)
--- NOTE | 2020-05-06 14:20 | NUR ---
PT WANTING TO SIT IN THE CHAIR. HAS BEEN REPOSITIONED SEVERAL TIMES. PULSE OX DROPPED TO 80'S WHEN SITTING UP EVEN WITH INCREASING OXYGEN TO 15L ON OXYMASK. RT CONTACTED FOR VAPOTHERM.
--- NOTE | 2020-05-06 14:29 | NUR ---
RT IN ROOM SETTING UP VAPOTHERM.
--- NOTE | 2020-05-06 14:45 | NUR ---
PT STATES THE OXYGEN TUBING FROM THE VAPOTHERM WILL NOT STAY IN HIS NOSE. DIFFERENT SIZE PALACED ET PT STATES IT FEELS MUCH BETTER.
--- NOTE | 2020-05-06 15:01 | NUR ---
ATTEMPT TO CALL REPORT ET NURSE UNAVAILABLE.
--- NOTE | 2020-05-06 15:18 | NUR ---
REPORT CALLED ET ROOM NOT CLEANED.
[2020-05-06 16:26] LABS: CLARITY,URINE CLEAR; COLOR,URINE YELLOW; GLUCOSE, URINE (UA) NEGATIVE (NEGATIVE); KETONES,URINE NEGATIVE (NEGATIVE); LEUKOCYTE ESTERASE ,URINE NEGATIVE (NEGATIVE); NITRITE,URINE NEGATIVE (NEGATIVE); PH,URINE 5.5 (5-9); PROTEIN,URINE 1+ (NEGATIVE)
[2020-05-06 16:36] LABS: BACTERIA,URINE TRACE /HPF; BILIRUBIN,URINE 2+ (NEGATIVE); SQUAMOUS EPITHELIAL CELL,UR 0-2 /HPF; WBC,URINE 0-2 /HPF
[2020-05-06] MEDS ORDERED: guaiFENesin SYRUP 100 MG/5 ML 10 ML (ROBITUSSIN SF) PO PRN (17:00)
[2020-05-06] MEDS ORDERED: ENOXAPARIN 40 MG/0.4 ML (LOVENOX) SYR SC SCH (17:00)
[2020-05-06] MEDS ORDERED: RT-ALBUTEROL INHALER HFA (VENTOLIN HFA) 18 GM IH PRN ×2 (17:00→21:15)
--- NOTE | 2020-05-06 18:00 | NUR ---
Talked with Valery at this time, updated on pt and hospital calling policy.
[2020-05-06 21:00] VITALS: BP 134/73
[2020-05-06] MEDS: RT-ALBUTEROL INHALER HFA (VENTOLIN HFA) 18 GM IH SCH (21:58)
[2020-05-07] VITALS (7 sets, daily range): BP systolic 111–149; BP diastolic 68–79
[2020-05-07] MEDS: RT-ALBUTEROL INHALER HFA (VENTOLIN HFA) 18 GM IH SCH ×6 (02:44→23:25)
[2020-05-07 03:58] LABS: BASOPHILS % (AUTO) 0 % (0-10); EOSINOPHILS % (AUTO) 0 % (0-10); HEMATOCRIT 41 % (40-54); HEMOGLOBIN 13.4 g/dL (13.3-17.7); LYMPHOCYTES # (AUTO) 0.6 10^3/uL (1.0-4.0); LYMPHOCYTES % (AUTO) 9 % (12-44); MEAN CORPUSCULAR HEMOGLOBIN 31 pg (25-34); MEAN CORPUSCULAR HGB CONC 33 g/dL (32-36); MEAN CORPUSCULAR VOLUME 94 fL (80-99); MEAN PLATELET VOLUME 11.3 fL (9.0-12.2); MONOCYTES # (AUTO) 0.6 10^3/uL (0.0-1.0); MONOCYTES % (AUTO) 9 % (0-12); NEUTROPHILS # (AUTO) 5.7 10^3/uL (1.8-7.8); NEUTROPHILS % (AUTO) 82 % (42-75); PLATELET COUNT 275 10^3/uL (130-400)
[2020-05-07 04:08] LABS: POTASSIUM 4.2 MMOL/L (3.6-5.0)
[2020-05-07 04:09] LABS: CALCIUM 9.2 MG/DL (8.5-10.1)
[2020-05-07 04:14] LABS: CREATININE SERUM 1.42 MG/DL (0.60-1.30); PHOSPHORUS 4.1 MG/DL (2.3-4.7)
[2020-05-07 04:16] LABS: MAGNESIUM 1.8 MG/DL (1.6-2.4)
--- NOTE | 2020-05-07 04:52 | Pulmonary Consultation ---
History of Present Illness History of Present Illness Date Seen by Provider: May 07, 2020 Time Seen by Provider: 04:47 Date of Admission Allergies and Home Medications Allergies Coded Allergies: Sulfa (Sulfonamide Antibiotics) (Verified Allergy, Mild, HIVES, 06/21/19) codeine (Verified Allergy, Mild, GI UPSET, pt has taken Lortab in the past, 06/21/19) meperidine (Verified Allergy, Mild, N/V, PATIENT TOLERATES FENTANYL, 06/21/19) Home Medications Amlodipine Besylate 10 Mg Tablet, 10 MG PO DAILY, (Reported) Clopidogrel Bisulfate 75 Mg Tablet, 75 MG PO UD, (Reported) EVERY OTHER DAY Dabigatran Etexilate Mesylate 75 Mg Capsule, 75 MG PO BID, (Reported) Escitalopram Oxalate 10 Mg Tablet, 10 MG PO BID, (Reported) Furosemide 40 Mg Tablet, 40 MG PO Q48H Prescribed by: DUKE ABAD on 01/29/19814 Gabapentin 100 Mg Capsule, 200 MG PO TID, (Reported) Lorazepam 0.5 Mg Tablet, 0.5 MG PO TID PRN for ANXIETY, (Reported) Metoprolol Succinate 200 Mg Tab.er.24h, 100 MG PO DAILY, (Reported) Multivitamin 1 Each Capsule, 1 EACH PO DAILY, (Reported) Omeprazole 20 Mg Capsule.dr, 20 MG PO HS, (Reported) Potassium Chloride 10 Meq Capsule.er, 10 MEQ PO BID, (Reported) Ropinirole HCl 0.25 Mg Tab, 0.5 MG PO HS PRN for restless legs Prescribed by: DUKE ABAD on 01/29/19814 Past Ofnrfho-Wnlpdo-Twqeun Hx Past Med/Social Hx: Reviewed Nursing Past Med/Soc Hx Patient Social History Alcohol Use: Past History Smoking Status: Former Smoker Type Used: Cigarettes Former Smoker, Quit: Dec 25, 2018 2nd Hand Smoke Exposure: Yes Recent Infectious Disease Expo: No Recent Hopitalizations: Yes (DEC-FEB FOR A-FIB) Have you traveled recently?: No Alcohol Use?: No Immunizations Up To Date Tetanus Booster (TDap): Unknown PED Vaccines UTD: No Date of Pneumonia Vaccine: Apr 25, 2015 Date of Influenza Vaccine: Jan 29, 2019 Seasonal Allergies Seasonal Allergies: Yes Past Medical History Surgeries: Yes (L TKR, STENTS R LEG X2, BACK, KIDNEY STONES, RIGHT CTR) Coronary Stent, Gallbladder, Joint Replacement Respiratory: Yes Asthma, Sleep Apnea, COPD, Emphysema Currently Using CPAP: No Currently Using BIPAP: No Cardiac: Yes (STENT-2017) Atrial Fibrillation, Coronary Artery Disease, Hypertension, Peripheral Vascular Neurological: No Sexually Transmitted Disease: No HIV/AIDS: No Genitourinary: Yes Kidney Stones Gastrointestinal: Yes Gastroesophageal Reflux, Pancreatitis Musculoskeletal: Yes Arthritis Endocrine: No HEENT: No (GLASSES) Loss of Vision: Denies Hearing Impairment: Denies Cancer: No Skin What Type of Treatment Did You: Surgical Intervention Psychosocial: No Integumentary: No Blood Disorders: No Adverse Reaction/Blood Tranf: No (N/A) Family Medical History Reviewed Nursing Family Hx Cardiovascular disease 19 FATHER Diabetes mellitus 19 MOTHER FH: liver cancer 19 FATHER FH: lung cancer 19 MOTHER Cancer Review of Systems Time Seen by Provider: 04:53 Sepsis Event Evaluation Height, Weight, BMI Height: 5'11.00" Weight: 191lbs. 0.0oz. 86.167972fu; 34.11 BMI Method:Stated Exam Exam Vital Signs Date Time Temp Pulse Resp B/P (MAP) Pulse Ox O2 Delivery O2 Flow Rate FiO2 05/07/20 04:00 70 9 119/65 (84) 97 Vapotherm 40.00 100.00 05/07/20 03:02 36.6 05/07/20 03:00 79 20 146/75 (94) 94 Vapotherm 40.00 100.00 05/07/20 02:44 92 Vapotherm 35.00 95 05/07/20 02:00 73 16 120/66 (86) 96 Vapotherm 40.00 100.00 05/07/20 01:00 75 18 136/73 (116) 92 Vapotherm 40.00 100.00 05/07/20 01:00 69 18 136/73 (116) 95 Vapotherm 40.00 100.00 05/07/20 00:48 89 05/07/20 00:00 78 18 119/67 (100) 95 Vapotherm 40.00 100.00 05/06/20 23:35 Vapotherm 40.00 100.00 05/06/20 23:11 36.4 05/06/20 23:03 94 Vapotherm 90 05/06/20 23:00 80 22 107/70 (85) 93 Vapotherm 35.00 95.00 05/06/20 22:00 77 25 113/65 (85) 92 Vapotherm 35.00 95.00 05/06/20 21:59 92 Vapotherm 35.00 95 05/06/20 21:00 85 05/06/20 21:00 88 26 123/73 (90) 91 Vapotherm 35.00 95.00 05/06/20 20:20 Vapotherm 35.00 95.00 05/06/20 20:00 94 Vapotherm 90 05/06/20 20:00 85 17 134/73 (100) 91 Vapotherm 35.00 95.00 05/06/20 19:30 36.7 05/06/20 19:22 81 18 95 05/06/20 19:00 85 27 156/94 (119) 95 Vapotherm 35.00 95.00 05/06/20 19:00 Vapotherm 05/06/20 19:00 83 05/06/20 18:37 98 Vapotherm 40.00 100 05/06/20 18:22 73 20 99 05/06/20 18:00 73 28 127/69 (88) 96 Vapotherm 40.00 65.00 05/06/20 18:00 75 23 127/69 (95) 96 05/06/20 17:22 73 27 96 05/06/20 17:15 74 05/06/20 17:00 123/78 (100) 05/06/20 17:00 71 26 123/78 (93) 97 Vapotherm 40.00 65.00 05/06/20 16:55 141/80 (103) 05/06/20 16:52 75 27 131/84 (112) 96 05/06/20 16:42 76 27 137/90 (115) 94 05/06/20 16:33 96 Vapotherm 40.00 100 05/06/20 16:30 79 21 137/90 (106) 96 Vapotherm 40.00 65.00 05/06/20 16:22 96 05/06/20 16:15 74 16 133/73 96 Vapotherm 05/06/20 14:34 94 Vapotherm 40.00 100 05/06/20 11:15 37.8 92 16 139/89 (106) 69 Room Air 05/06/20 11:15 OxyMask 10.00 I & O 1/13/21 07:00 Intake Total 1300 ml Output Total 375 ml Balance 925 ml Height & Weight Height: 5'11.00" Weight: 191lbs. 0.0oz. 86.486231jb; 34.11 BMI Method:Stated General Appearance: WD/WN, Chronically ill, Moderate Distress HEENT: PERRL/EOMI, Pharynx Normal, Other (Mucous membranes dry) Neck: Non Tender, Supple Respiratory: Crackles, Decreased Breath Sounds, Expiration, Respiratory Distress, Wheezing Cardiovascular: No Murmur, Tachycardia Capillary Refill: Less Than 3 Seconds Extremity: Normal Range of Motion, Non Tender Neurologic/Psychiatric: Alert, Oriented x3 Results Lab Laboratory Tests 05/06/20 11:45 05/07/20 02:55 Assessment/Plan Assessment/Plan Acute respiratory failure BiPAP PRN and Vapotherm COVID 19 with pneumonia -Dx 05/06- symptoms x 7 days -Decadron -CVP -Does not qualify for Remdesivir -Currently requiring 100% Vapotherm -BiPAP PRN 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 Grade 1 diastolic CHF EF 55-60% DVT/GI ppx -Pt is on pardaxa and plavix at home -Will use theraputic dose lovenox for now and restart plavix -TANMAY Bolivar DO May 07, 2020 04:52
[2020-05-07] MEDS ORDERED: FAMOTIDINE 20 MG (PEPCID) TABLET PO PRN (05:00)
[2020-05-07] MEDS: LACTATED RINGERS 1,000 ML IV SCH (05:33)
[2020-05-07] MEDS ORDERED: NS (IVPB) 250 ML ONE (07:45)
--- NOTE | 2020-05-07 07:53 | Diagnostic Imaging Report ---
INDICATION: Dyspnea. FINDINGS: Portable chest shows cardiomegaly. There are bilateral infiltrates which are slightly worse compared to the 05/06/2020 study. There is no significant effusion. There is no pneumothorax evident. IMPRESSION: Increasing infiltrates. Dictated by: Dictated on workstation # [id number]
[2020-05-07] MEDS: CLOPIDOGREL 75 MG (PLAVIX) TABLET PO SCH (08:01)
[2020-05-07] MEDS: ENOXAPARIN 300 MG/3 ML (LOVENOX) MULTI-DOSE VIAL SQ SCH ×2 (08:02→20:38)
[2020-05-07] MEDS ORDERED: CALCIUM CARBONATE 500 MG (TUMS) TAB.CHEW PO PRN (08:30)
[2020-05-07] MEDS: dexAMETHasone 6 MG TAB (DECADRON) PO SCH (12:25)
--- NOTE | 2020-05-07 13:14 | Physical Therapy Evaluation ---
PT Evaluation-General Medical Diagnosis Admission Date May 06, 2020 at 13:46 Medical Diagnosis: covid 19 PNA Onset Date: May 06, 2020 Therapy Diagnosis Therapy Diagnosis: impaired mobility, strength, endurance Height/Weight Height (Feet): 5 Height (Inches): 11.00 Weight (Pounds): 191 Weight (Ounces): 0.0 Precautions Precautions/Isolations: Airborne Isolation, Droplet Isolation, Fall Prevention Referral Physician: Toya Reason for Referral: Evaluation/Treatment Medical History Pertinent Medical History: Atrial Fib, Alcoholism, CAD, GERD, HTN, PVD, Smoking Additional Medical History Past Medical History Surgeries: Yes (L TKR, STENTS R LEG X2, BACK, KIDNEY STONES, RIGHT CTR) Coronary Stent, Gallbladder, Joint Replacement Respiratory: Yes Asthma, Sleep Apnea, COPD, Emphysema Currently Using CPAP: No Currently Using BIPAP: No Cardiac: Yes (STENT-2017) Atrial Fibrillation, Coronary Artery Disease, Hypertension, Peripheral Vascular Neurological: No Sexually Transmitted Disease: No HIV/AIDS: No Genitourinary: Yes Kidney Stones Gastrointestinal: Yes Gastroesophageal Reflux, Pancreatitis Musculoskeletal: Yes Arthritis Reviewed History: Yes Social History Home: Single Level Current Living Status: Spouse Entry Into Home: Level Entry Prior Prior Level of Function SCALE: Activities may be completed with or without assistive devices. 6-Jevrrvxlvd-jeasjfc completes the activity by him/herself with no assistance from a helper. 5-Set-up or Clean-up Assistance-helper sets up or cleans up; patient completes activity. [place] assists only prior to or following the activity. 4-Supervision or Touching Assistance-helper provides verbal cues and/or touching/steadying and/or contact guard assistance as patient completes activity. Assistance may be provided throughout the activity or intermittently. 3-Partial/Moderate Assistance-helper does LESS THAN HALF the effort. Farrar lifts, holds or supports trunk or limbs, but provides less than half the effort. 2-Substantial/Maximal Assistance-helper does MORE THAN HALF the effort. Farrar lifts or holds trunk or limbs and provides more than half the effort. 4-Csyegfgon-tryfre does ALL the effort. Patient does none of the effort to complete the activity. Or, the assistance of 2 or more helpers is required for the patient to complete the activity. If activity was not attempted, code reason: 7-Patient Refused. 9-Not Applicable-not attempted and the patient did not perform the activity before the current illness, exacerbation or injury. 10-Not Attempted due to Environmental Limitations-(lack of equipment, weather restraints, etc.). 88-Not Attempted due to Medical Conditions or Safety Concerns. Bed Mobility: 6 Transfers (B,C,W/C): 6 Gait: 6 Indoor Mobility (Ambulation): Independent Prior Devices Use: Walker PT Evaluation-Current Subjective Patient in bed pre tx, agrees to PT, has no complaints of pain. Nurse states he should not get out of bed due to dropping O2 levels with activity. Pt/Family Goals "to get stronger" Objective Patient Orientation: Person, Place, Situation Attachments: Oxygen, IV bipap ROM/Strength ROM Lower Extremities WNL Strength Lower Extremities 4-/5 gross BLE Sensory Hearing: Functional Sensation Right Lower Extremit: Impaired Sensation Left Lower Extremity: Impaired Sensation Lower Extremities decreased light touch sensation in both feet. Treatment BLE supine exercises x15 (AP, QS, GS, HS, SAQ, hip abd/add, SLR) Assessment/Needs Patient has impaired mobility, strength, endurance. He is in bed post tx with nurse call, phone, tray, all needs met. Patient's O2 did not drop lower than 89% during activity. Rehab Potential: Fair PT Halfway Goals Engineering Teacher Goals PT Engineering Teacher Goals Time Frame: May 14, 2020 Roll Left & Right (QC): 6 Sit to Lying (QC): 6 Lying-Sitting on Side/Bed(QC): 6 Sit to Stand (QC): 4 Chair/Imw-wv-Qpbxs Xfer(QC): 4 Walk 10 feet (QC): 4 PT Plan Problem List Problem List: Activity Tolerance, Functional Strength, Safety, Balance, Gait, Transfer, Bed Mobility, ROM Treatment/Plan Treatment Plan: Continue Plan of Care Treatment Plan: Bed Mobility, Education, Functional Activity Jordy, Functional Strength, Gait, Safety, Therapeutic Exercise, Transfers Treatment Duration: May 14, 2020 Frequency: 6 times per week Estimated Hrs Per Day: .25 hour per day Patient and/or Family Agrees t: Yes Safety Risks/Education Patient Education: Correct Positioning, Safety Issues Teaching Recipient: Patient Teaching Methods: Demonstration, Discussion Response to Teaching: Reinforcement Needed Discharge Recommendations Plan Patient will perform bed mobility and transfer training, balance and endurance training, functional strengthening, stair training, gait training, and education, to improve functional mobility and independence at home. Therapy Discharge Recommendati: Home & Family Time/GCodes Time In: 1134 Time Out: 1147 Total Billed Treatment Time: 13 Total Billed Treatment 1 visit PRECIOUS Tejada' STACY LOPEZ PT May 07, 2020 13:14
[2020-05-07] MEDS ORDERED: MTP100TCR PO (14:42)
[2020-05-07] MEDS ORDERED: FURO40TA4 PO (14:42)
[2020-05-07] MEDS ORDERED: ROPI0.5T4 PO (14:42)
--- NOTE | 2020-05-07 14:43 | NUR ---
I SPOKE WITH THE PT'S , CALLED THE [facility] [place] [facility] TO COMPLETE THIS MED REC. FILL DATES FROM [facility]: 04/03/20 GABAPENTIN 100MG #540/90DS 04/08/20 AMLODIPINE 10MG #90/90DS 04/21/20 FUROSEMIDE 40MG #90/90DS 04/25/20 OMEPRAZOLE 20MG #90/90DS 04/28/20 PRADAXA 75MG #180/90DS 04/28/20 ROPINIROLE 0.5MG #90/90DS FILL DATES FROM [facility]: 09/03/19 LEXAPRO 10MG #60/30DS 11/03/19 POTASSIUM 10MEQ #60/30DS 02/04/20 PLAVIX 75MG #15/30DS 03/25/20 METOPROLOL 100MG #90/90DS 04/15/20 LORAZEPAM 0.5MG #30 [facility] SAID THAT THEY HAVE REFILLS OF PLAVIX, LEXAPRO AND POTASSIUM READY TO BE PICKED UP. THE ONLY THING THAT DIDN'T MATCH UP FROM THE MED LIST I GOT FAXED OVER FROM PT'S DOCTOR'S OFFICE AND THE INFORMATION I GOT FROM THE PHARMACY'S WAS THAT PT'S MED LIST HAS [facility]IQUIS LISTED BUT PT HASN'T SEEMED TO HAVE GOTTEN IT FILLED FROM EITHER PHARMACY. THEREFORE I LEFT IT OFF OF THIS MED REC.
--- NOTE | 2020-05-07 15:06 | NUR ---
"RD ASSESSMENT PMHx: COPD; afib; CAD; HTN; GERD; pancreatitis; PT INTERACTION: Received dietary consult for MST score. Note pt currently in COVID isolation, per chart review. Note all diet information for nutrition assessment is per Kostas RN, or per chart review. Kostas states current appetite appears poor. Note avg PO intake 25% x2meal, per chart review. Kostas states no issues with nausea, vomiting, constipation, or diarrhea that he is aware of. Note no BM has been recorded, and pt not currently on bowel regimen per chart review. Note recent 2# wt gain x6mon, per chart review. Note unable to complete visual assessment d/t isolation precautions. Note BMI of 33.8 (Obese class I for age). Given PO intake and wt hx, it is difficult to determine if pt meets criteria for malnutrition per ASPEN guidelines. Est. kcal needs: 5283-0316 kcal | 15-18 kcal/kg Est. Pro needs: 90-112 g Pro | 0.8-1.0 g Pro/kg PES STATEMENT: Inadequate oral intake (NI-2.1) related to loss of appetite, as evidenced by chart review, communication with RN, and avg PO intake 25% x2meal. INTERVENTION: Continue with current diet order of Regular diet. Add Ensure Enlive (vary) to meals TID, for increased kcal intake. Provides 350 kcal and 20 g Pro per serving. Will continue to follow and reassess as pt needs, intake, and status change. Robert JEFFERSON, MS RD LD [phone] cell"
--- NOTE | 2020-05-07 15:08 | Occupational Therapy Eval ---
OT Evaluation-General/PLF Medical Diagnosis Admission Date May 06, 2020 at 13:46 Medical Diagnosis: covid 19 PNA Onset Date: May 06, 2020 Therapy Diagnosis Therapy Diagnosis: decreased ADL Status, weakness Height/Weight Height (Feet): 5 Height (Inches): 11.00 Weight (Pounds): 191 Weight (Ounces): 0.0 Precautions Precautions/Isolations: Airborne Isolation, Droplet Isolation, Fall Prevention Referral Physician: Toya Medical History Pertinent Medical History: Atrial Fib, Alcoholism, CAD, GERD, HTN, PVD, Smoking Additional Medical History Surgeries: Yes (L TKR, STENTS R LEG X2, BACK, KIDNEY STONES, RIGHT CTR) Coronary Stent, Gallbladder, Joint Replacement Respiratory: Yes Asthma, Sleep Apnea, COPD, Emphysema Currently Using CPAP: No Currently Using BIPAP: No Cardiac: Yes (STENT-2017) Atrial Fibrillation, Coronary Artery Disease, Hypertension, Peripheral Vascular Neurological: No Sexually Transmitted Disease: No HIV/AIDS: No Genitourinary: Yes Kidney Stones Gastrointestinal: Yes Gastroesophageal Reflux, Pancreatitis Musculoskeletal: Yes Arthritis Reviewed History: Yes Social History Home: Single Level Current Living Status: Spouse Entry Into Home: Level Entry ADL-Prior Level of Function SCALE: Activities may be completed with or without assistive devices. 6-Ttdopjxhsr-ueiyoax completes the activity by him/herself with no assistance from a helper. 5-Set-up or Clean-up Assistance-helper sets up or cleans up; patient completes activity. [facility] assists only prior to or following the activity. 4-Supervision or Touching Assistance-helper provides verbal cues and/or touching/steadying and/or contact guard assistance as patient completes activity. Assistance may be provided throughout the activity or intermittently. 3-Partial/Moderate Assistance-helper does LESS THAN HALF the effort. [facility] lifts, holds or supports trunk or limbs, but provides less than half the effort. 2-Substantial/Maximal Assistance-helper does MORE THAN HALF the effort. [facility] lifts or holds trunk or limbs and provides more than half the effort. 5-Prhixuhyd-ikzdsr does ALL the effort. Patient does none of the effort to complete the activity. Or, the assistance of 2 or more helpers is required for the patient to complete the activity. If activity was not attempted, code reason: 7-Patient Refused. 9-Not Applicable-not attempted and the patient did not perform the activity before the current illness, exacerbation or injury. 10-Not Attempted due to Environmental Limitations-(lack of equipment, weather restraints, etc.). 88-Not Attempted due to Medical Conditions or Safety Concerns. ADL PLOF Comments Pt reports being independent with all ADLs at [facility]. Self Care: Independent Functional Cognition: Independent OT Current Status Subjective Pt laying in bed, BiPAP on. Pt agreeable to OT tx and communicated with OT the best he could with BiPAP on. Mental Status/Objective Patient Orientation: Person, Place, Time, Situation Attachments: IV, Oxygen (BiPAP) Current Upper Extremity ROM WFL. BUE shoulder flexion to approx 90 degrees, pt indicates he has had some shoulder problems in the past and this is his prior level. Upper Extremity Coordination decreased, pt has difficulty holding cups due to decreased sensation in hands. He also had difficulty opening lemon packet Upper Extremity Sensation decreased in hands. Upper Extremity Strength grossly 3+/5 ADL-Treatment Eating (QC): 5 (based on clinical judgement, pt would require assistance cutting food and opening containers due to decreased sensation in hands.) Other Treatments Pt laying in bed, agreeable to OT tx. Pt on BiPAP and O2 remained above 98% throughout session. OT educated pt on purpose and benefit of OT, he verbalized understanding. Pt provided information about PLOF and home set up,and participated in UE screen. Pt expresses difficulty holding cups, and he uses cu ps with handles at home. OT provided pt with a cup with handle and pt able to hold cup and bring to his mouth. OT assisted pt with taking a drink due to BiPAP. Pt indicates he did not have the BiPAP on while he ate, but he did have difficulty cutting food due to plastic utensils and decreased sensation in hands. OT educated pt on UE exercises in order to increase BUE strength and f unctional endurance, pt verbalized understanding and completed x5 reps BUE of the following AROM: shoulder horizontal abduction, shoulder flexion, and elbow flexion/extension. OT instructed pt to perform exercises throughout the day, increasing reps as tolerated, he verbalized understanding. Post OT Tx, pt laying in bed, call light in reach and all needs met. Education OT Patient Education: Correct positioning, Energy conservation, Modified ADL techniques, Progress toward Goal/Update tx plan, Purpose of tx/functional activities Teaching Recipient: Patient Teaching Methods: Demonstration, Discussion Response to Teaching: Verbalize Understanding, Return Demonstration OT Correction Goals Correction Goals Time Frame: May 23, 2020 Eating (QC): 6 Oral Hygiene (QC): 6 Toileting Hygiene (QC): 6 Shower/Bathe Self (QC): 6 Upper Body Dressing (QC): 6 Lower Body Dressing (QC): 6 On/Off Footwear (QC): 6 1=Demonstrate adherence to instructed precautions during ADL tasks. 2=Patient will verbalize/demonstrate understanding of assistive devices/modifications for ADL. 3=Patient will improve strength/tolerance for activity to enable patient to perform ADL's. OT Education/Plan Problem List/Assessment Assessment: Decreased Activ Tolerance, Decreased UE Strength, Impaired I ADL's, Impaired Self-Care Skills, Restricted Funct UE ROM Discharge Recommendations Plan/Recommendations: Continue POC Treatment Plan/Plan of Care Patient would benefit from OT for education, treatment and training to promote independence in ADL's, mobility, safety and/or upper extremity function for ADL's. Plan of Care: ADL Retraining, Functional Mobility, UE Funct Exercise/Act Treatment Duration: May 23, 2020 Frequency: 5 times per week Estimated Hrs Per Day: .25 hour per day Agreement: Yes Rehab Potential: Fair Time/GCodes Start Time: 13:40 Stop Time: 13:56 Total Time Billed (hr/min): 16 Billed Treatment Time 1, BRENDAN WOOTEN OT May 07, 2020 15:08
--- NOTE | 2020-05-07 16:34 | NUR ---
attempted contact with pt . unsuccessful at this time.
[2020-05-07] MEDS ORDERED: ONDANSETRON 4 MG/2 ML (SDV) Z0FRAN ONE (17:50)
[2020-05-07] MEDS: ONDANSETRON 4 MG/2 ML (SDV) Z0FRAN IVP PRN (17:58)
[2020-05-08] MEDS ORDERED: diphenhydrAMINE 50 MG/ML INJ (BENADRYL) ONE (01:04)
[2020-05-08] MEDS ORDERED: diphenhydrAMINE 50 MG/ML INJ (BENADRYL) IVP ONE (01:15)
[2020-05-08] MEDS: RT-ALBUTEROL INHALER HFA (VENTOLIN HFA) 18 GM IH SCH ×8 (02:54→22:00)
[2020-05-08 02:55] LABS: ABG BASE EXCESS 1.5 MMOL/L (-2.5-2.5); ABG OXYGEN SATURATION 88 % (94-100); ABG PCO2 40 MMHG (35-45); ABG PH 7.42 (7.37-7.43); ABG PO2 55 MMHG (79-93)
[2020-05-08 02:56] LABS: BASOPHILS % (AUTO) 0 % (0-10); EOSINOPHILS % (AUTO) 0 % (0-10); HEMATOCRIT 37 % (40-54); HEMOGLOBIN 12.2 g/dL (13.3-17.7); LYMPHOCYTES # (AUTO) 0.6 10^3/uL (1.0-4.0); LYMPHOCYTES % (AUTO) 5 % (12-44); MEAN CORPUSCULAR HEMOGLOBIN 31 pg (25-34); MEAN CORPUSCULAR HGB CONC 33 g/dL (32-36); MEAN CORPUSCULAR VOLUME 94 fL (80-99); MEAN PLATELET VOLUME 11.5 fL (9.0-12.2); MONOCYTES # (AUTO) 0.8 10^3/uL (0.0-1.0); MONOCYTES % (AUTO) 6 % (0-12); NEUTROPHILS # (AUTO) 12.1 10^3/uL (1.8-7.8); NEUTROPHILS % (AUTO) 89 % (42-75); PLATELET COUNT 318 10^3/uL (130-400); WHITE BLOOD COUNT 13.6 10^3/uL (4.3-11.0)
[2020-05-08 02:57] LABS: ALLENS TEST YES-POS; INSPIRED O2 75% BIPAP; VENTILATOR NO
[2020-05-08 03:07] LABS: CHLORIDE 103 MMOL/L (98-107); SODIUM 138 MMOL/L (135-145)
[2020-05-08 03:08] LABS: CALCIUM 8.9 MG/DL (8.5-10.1)
[2020-05-08 03:09] LABS: GLUCOSE 164 MG/DL (70-105)
[2020-05-08 03:11] LABS: CARBON DIOXIDE 23 MMOL/L (21-32)
[2020-05-08 03:12] LABS: PHOSPHORUS 2.3 MG/DL (2.3-4.7)
[2020-05-08 03:13] LABS: CREATININE SERUM 1.12 MG/DL (0.60-1.30); GFR ESTIMATED > 60
[2020-05-08 03:14] LABS: BUN/CREATININE RATIO 19
[2020-05-08 03:15] LABS: MAGNESIUM 1.7 MG/DL (1.6-2.4)
--- NOTE | 2020-05-08 05:07 | Pulmonary Progress Note ---
Subjective Time Seen by a Provider: 05:00 Subjective/Events-last exam pt is currently requiring BiPAP Sepsis Event Evaluation Height, Weight, BMI Height: 5'11.00" Weight: 191lbs. 0.0oz. 86.401367vq; 34.11 BMI Method:Stated Focused Exam Lactate Level 05/06/20 11:45: Lactic Acid Level 1.63 Exam Exam Vital Signs Date Time Temp Pulse Resp B/P (MAP) Pulse Ox O2 Delivery O2 Flow Rate FiO2 05/08/20 04:00 85 26 131/79 (96) 90 NIV Bilevel 65.00 05/08/20 03:00 89 19 138/74 (95) 90 NIV Bilevel 65.00 05/08/20 02:54 82 28 94 70.00 05/08/20 02:00 89 26 140/75 (96) 87 NIV Bilevel 75.00 05/08/20 01:00 90 26 142/76 (98) 89 NIV Bilevel 75.00 05/08/20 00:52 90 05/08/20 00:24 36.0 NIV Bilevel 75.00 05/08/20 00:00 80 25 137/69 (91) 91 NIV Bilevel 75.00 05/07/20 23:25 85 26 95 75.00 05/07/20 23:00 84 23 140/74 (96) 94 NIV Bilevel 75.00 05/07/20 22:23 NIV Bilevel 75.00 05/07/20 22:00 90 19 139/85 (103) 95 NIV Bilevel 75.00 05/07/20 21:00 93 16 128/68 (88) 92 Vapotherm 40.00 100.00 05/07/20 20:00 93 19 144/73 (96) 92 Vapotherm 40.00 100.00 05/07/20 19:50 36.4 94 22 144/72 (96) 91 Vapotherm 40.00 100.00 05/07/20 18:47 92 Vapotherm 40.00 100 05/07/20 18:43 95 05/07/20 18:00 79 24 158/79 (105) 91 Vapotherm 40.00 100.00 05/07/20 17:00 78 24 136/72 (93) 97 Vapotherm 40.00 100.00 05/07/20 16:00 78 21 133/76 (95) 95 Vapotherm 40.00 100.00 05/07/20 15:35 36.0 05/07/20 15:00 77 22 139/75 (96) 94 Vapotherm 40.00 100.00 05/07/20 14:05 78 24 99 75.00 05/07/20 14:00 76 22 144/73 (96) 99 Vapotherm 40.00 100.00 05/07/20 13:00 79 18 134/73 (93) 97 Vapotherm 40.00 100.00 05/07/20 12:39 88 05/07/20 12:00 75 23 23/94 (71) 94 Vapotherm 40.00 100.00 05/07/20 11:41 36.0 05/07/20 11:00 77 15 119/62 (81) 94 Vapotherm 40.00 100.00 05/07/20 10:02 79 23 93 80.00 05/07/20 10:00 78 9 133/74 (93) 98 Vapotherm 40.00 100.00 05/07/20 09:00 81 26 26/94 (72) 94 Vapotherm 40.00 100.00 05/07/20 08:25 35.9 79 18 149/76 NIV Bilevel 90 05/07/20 08:20 35.9 79 18 139/79 93 NIV Bilevel 90 05/07/20 08:15 35.9 82 18 143/79 93 NIV Bilevel 90 05/07/20 08:10 35.9 82 18 135/72 92 NIV Bilevel 90 05/07/20 08:00 80 14 135/72 (93) 92 Vapotherm 40.00 100.00 05/07/20 07:39 35.6 05/07/20 07:17 82 19 96 90.00 05/07/20 07:00 82 28 144/70 (94) 83 Vapotherm 40.00 100.00 05/07/20 06:45 94 Vapotherm 40.00 100 05/07/20 06:42 75 05/07/20 06:00 74 20 138/77 (97) 94 Vapotherm 40.00 100.00 I & O 05/08/20 07:00 Intake Total 1385 ml Output Total 1250 ml Balance 135 ml Height & Weight Height: 5'11.00" Weight: 191lbs. 0.0oz. 86.279040mn; 34.11 BMI Method:Stated General Appearance: WD/WN, Chronically ill, Moderate Distress HEENT: PERRL/EOMI, Pharynx Normal, Other (Mucous membranes dry) Neck: Non Tender, Supple Respiratory: Crackles, Decreased Breath Sounds, Expiration, Respiratory Distress, Wheezing Cardiovascular: No Murmur, Tachycardia Capillary Refill: Less Than 3 Seconds Extremity: Normal Range of Motion, Non Tender Neurologic/Psychiatric: Alert, Oriented x3 Results Lab Laboratory Tests 05/06/20 11:45 05/07/20 02:55 05/08/20 02:30 Assessment/Plan Assessment/Plan Acute respiratory failure BiPAP PRN and Vapotherm -Currently requiring BiPAP at 60% COVID 19 with pneumonia -Dx 05/06- symptoms x 7 days -Decadron -s/p CVP -Does not qualify for Remdesivir -BiPAP PRN Secondary bacterial PNA -Start Zosyn 05/08 ROEL -MONTIOR Anxiety -Xanax PRN -Scheduled Risperadol 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 Grade 1 diastolic CHF EF 55-60% DVT/GI ppx -Pt is on pardaxa and plavix at home -Will use theraputic dose lovenox for now and restart plavix -TANMAY Bolivar DO May 08, 2020 05:07
[2020-05-08] MEDS ORDERED: PIPERACILLIN/TAZOBACTAM (BULK) 4.5 GM in NS (IVPB) 100 ML IV SCH (06:00)
[2020-05-08] MEDS: LACTATED RINGERS 1,000 ML IV SCH (06:19)
[2020-05-08] MEDS: ONDANSETRON 4 MG/2 ML (SDV) Z0FRAN IVP PRN (06:32)
[2020-05-08] MEDS: FAMOTIDINE 20 MG (PEPCID) TABLET PO SCH ×2 (07:46→20:06)
[2020-05-08] MEDS: risperiDONE 0.5 MG (RisperDAL) TABLET PO SCH ×2 (07:47→20:06)
[2020-05-08] MEDS: CLOPIDOGREL 75 MG (PLAVIX) TABLET PO SCH (07:47)
[2020-05-08] MEDS: ALPRAZolam 0.5 MG (XANAX) TAB PO PRN ×2 (07:47→22:57)
[2020-05-08] MEDS: ENOXAPARIN 300 MG/3 ML (LOVENOX) MULTI-DOSE VIAL SQ SCH ×2 (07:48→20:07)
--- NOTE | 2020-05-08 08:37 | Diagnostic Imaging Report ---
INDICATION: Dyspnea. Comparison made with prior examination 05/07/2020. FINDINGS: There is cardiomegaly. There is diffuse bilateral airspace disease. Some underlying central pulmonary venous congestion cannot be excluded. There is no pleural effusion or pneumothorax. Mediastinum is unremarkable. PICC line has its tip in superior vena cava. IMPRESSION: Diffuse bilateral airspace disease. Some underlying central pulmonary venous congestion cannot be excluded. Cardiomegaly. Dictated by: Dictated on workstation # [id number]
--- NOTE | 2020-05-08 10:20 | Physical Therapy Daily Note ---
PT Daily Note-Current Subjective Patient in bed pre tx, agrees to PT, has no complaints of pain. Nurse states patient is still having problems with O2 saturation and doesn't want him out of bed Appearance Patient in bed post tx with nurse call, phone, tray, all needs met. Mental Status Patient Orientation: Person, Place, Situation Transfers SCALE: Activities may be completed with or without assistive devices. 0-Omqgnbdode-uwkcysj completes the activity by him/herself with no assistance from a helper. 5-Set-up or Clean-up Assistance-helper sets up or cleans up; patient completes activity. [place] assists only prior to or following the activity. 4-Supervision or Touching Assistance-helper provides verbal cues and/or touching/steadying and/or contact guard assistance as patient completes activity. Assistance may be provided throughout the activity or intermittently. 3-Partial/Moderate Assistance-helper does LESS THAN HALF the effort. Pray lifts, holds or supports trunk or limbs, but provides less than half the effort. 2-Substantial/Maximal Assistance-helper does MORE THAN HALF the effort. [place] lifts or holds trunk or limbs and provides more than half the effort. 7-Yjvqinqnk-avgzpj does ALL the effort. Patient does none of the effort to complete the activity. Or, the assistance of 2 or more helpers is required for the patient to complete the activity. If activity was not attempted, code reason: 7-Patient Refused. 9-Not Applicable-not attempted and the patient did not perform the activity before the current illness, exacerbation or injury. 10-Not Attempted due to Environmental Limitations-(lack of equipment, weather restraints, etc.). 88-Not Attempted due to Medical Conditions or Safety Concerns. Exercises Supine Ex: Ankle pumps, Quad Set, Glut sets, Heel Slides, Short Arc Quads, Straight leg raise (AAROM), Hip abd/add Supine Reps: 15 Treatments LE exercise Assessment Current Status: Poor Progress Patient is very weak, has to do heel slides with rest breaks, O2 stays at 92% PT Linker Up Goals Longterm Goals PT Linker Up Goals Time Frame: May 14, 2020 Roll Left & Right (QC): 6 Sit to Lying (QC): 6 Lying-Sitting on Side/Bed(QC): 6 Sit to Stand (QC): 4 Chair/Vww-nr-Tzhvj Xfer(QC): 4 Walk 10 feet (QC): 4 PT Plan Problem List Problem List: Activity Tolerance, Functional Strength, Safety, Balance, Gait, Transfer, Bed Mobility, ROM Treatment/Plan Treatment Plan: Continue Plan of Care Treatment Plan: Bed Mobility, Education, Functional Activity Jordy, Functional Strength, Gait, Safety, Therapeutic Exercise, Transfers Treatment Duration: May 14, 2020 Frequency: 6 times per week Estimated Hrs Per Day: .25 hour per day Patient and/or Family Agrees t: Yes Safety Risks/Education Patient Education: Correct Positioning, Safety Issues Teaching Recipient: Patient Teaching Methods: Demonstration, Discussion Response to Teaching: Reinforcement Needed Time/GCodes Time In: 0948 Time Out: 1002 Total Billed Treatment Time: 14 Total Billed Treatment 1 visit EX Hedy' STACY LOPEZ PT May 08, 2020 10:20
[2020-05-08] MEDS: PIPERACILLIN/TAZOBACTAM (BULK) 4.5 GM in NS (IVPB) 100 ML IV SCH ×2 (11:36→20:06)
[2020-05-08] MEDS: dexAMETHasone 6 MG TAB (DECADRON) PO SCH (11:36)
--- NOTE | 2020-05-08 13:29 | NUR ---
CONTACTED PT SON AND . GAVE UPDATE ON PT STATUS. ADVISED FAMILY THAT PT COULD DECLINE TO THE POINT OF NEEDING TO BE PLACED ON A VENTILATOR. FAMILY VERBALIZED UNDERSTANDING. ANSWERED QUESTIONS THAT FAMILY HAD.
--- NOTE | 2020-05-08 15:36 | Occupational Ther Daily Note ---
OT Current Status-Daily Note Subjective No pain reported. Mental Status/Objective Patient Orientation: Person, Place ADL-Treatment Therapy Code Descriptions/Definitions Functional Wake Measure: 0=Not Assessed/NA 4=Minimal Assistance 1=Total Assistance 5=Supervision or Setup 2=Maximal Assistance 6=Modified Wake 3=Moderate Assistance 7=Complete IndependenceSCALE: Activities may be completed with or without assistive devices. 9-Pkyxfrqdyj-riinzhw completes the activity by him/herself with no assistance from a helper. 5-Set-up or Clean-up Assistance-helper sets up or cleans up; patient completes activity. [place] assists only prior to or following the activity. 4-Supervision or Touching Assistance-helper provides verbal cues and/or touching/steadying and/or contact guard assistance as patient completes activity. Assistance may be provided throughout the activity or intermittently. 3-Partial/Moderate Assistance-helper does LESS THAN HALF the effort. [place] lifts, holds or supports trunk or limbs, but provides less than half the effort. 2-Substantial/Maximal Assistance-helper does MORE THAN HALF the effort. [place] lifts or holds trunk or limbs and provides more than half the effort. 4-Jrjbspoxk-flwete does ALL the effort. Patient does none of the effort to complete the activity. Or, the assistance of 2 or more helpers is required for the patient to complete the activity. If activity was not attempted, code reason: 7-Patient Refused. 9-Not Applicable-not attempted and the patient did not perform the activity before the current illness, exacerbation or injury. 10-Not Attempted due to Environmental Limitations-(lack of equipment, weather restraints, etc.). 88-Not Attempted due to Medical Conditions or Safety Concerns. Other Treatment OT spoke with nursing prior to going into room. Pt. currently on bipap, and is lying on side. Sats have increased to 90-92% with this position, so OT will not be moving pt. OT issued red therapy sponge for bilateral hand strengthening/movement while in bed. Pt. educated on this and verbalizes understanding. Pt. requests drink and so OT removed bipap very briefly so that pt. can have water. Sats begin to drop and bipap put on immediately. Sats back at 90%. Nursing notified. All needs met in room. Education OT Patient Education: Correct positioning, Exercise program, Progress toward Goal/Update tx plan, Purpose of tx/functional activities, Reviewed precautions, Rehab process Teaching Recipient: Patient Teaching Methods: Demonstration, Discussion Response to Teaching: Verbalize Understanding, Return Demonstration OT Mcfp Goals Spiral Winding Machine Helper Goals Time Frame: May 23, 2020 Eating (QC): 6 Oral Hygiene (QC): 6 Toileting Hygiene (QC): 6 Shower/Bathe Self (QC): 6 Upper Body Dressing (QC): 6 Lower Body Dressing (QC): 6 On/Off Footwear (QC): 6 1=Demonstrate adherence to instructed precautions during ADL tasks. 2=Patient will verbalize/demonstrate understanding of assistive devices/modifications for ADL. 3=Patient will improve strength/tolerance for activity to enable patient to perform ADL's. OT Education/Plan Problem List/Assessment Assessment: Decreased Activ Tolerance, Dependent Transfers, Impaired I ADL's, Impaired Self-Care Skills Discharge Recommendations Plan/Recommendations: Continue POC Therapy Discharge Recommendati: Post Acute OT Treatment Plan/Plan of Care Treatment,Training & Education: Yes Patient would benefit from OT for education, treatment and training to promote independence in ADL's, mobility, safety and/or upper extremity function for ADL's. Plan of Care: ADL Retraining, Functional Mobility, UE Funct Exercise/Act Treatment Duration: May 23, 2020 Frequency: 5 times per week Estimated Hrs Per Day: .25 hour per day Agreement: Yes Rehab Potential: Fair Time/GCodes Start Time: 14:50 Stop Time: 15:00 Total Time Billed (hr/min): 10 Billed Treatment Time 1, Ex CHRISTOPHER ORTIZ OT May 08, 2020 15:36
[2020-05-08] MEDS ORDERED: LIDOCAINE UROJET 2% GEL 10 ML PKG ONE (20:22)
[2020-05-09] MEDS: LACTATED RINGERS 1,000 ML IV SCH ×2 (00:04→11:20)
[2020-05-09 05:20] LABS: ABG BASE EXCESS 3.6 MMOL/L (-2.5-2.5); ABG OXYGEN SATURATION 89 % (94-100); ABG PCO2 48 MMHG (35-45); ABG PH 7.39 (7.37-7.43); ABG PO2 60 MMHG (79-93); ABG TCO2 29.9 MMOL/L (21.0-31.0)
[2020-05-09 05:23] LABS: ALLENS TEST YES-POS; BASOPHILS % (AUTO) 0 % (0-10); EOSINOPHILS % (AUTO) 0 % (0-10); HEMATOCRIT 37 % (40-54); HEMOGLOBIN 11.9 g/dL (13.3-17.7); INSPIRED O2 100%; LYMPHOCYTES # (AUTO) 0.6 10^3/uL (1.0-4.0); LYMPHOCYTES % (AUTO) 5 % (12-44); MEAN CORPUSCULAR HEMOGLOBIN 31 pg (25-34); MEAN CORPUSCULAR HGB CONC 32 g/dL (32-36); MEAN CORPUSCULAR VOLUME 94 fL (80-99); MEAN PLATELET VOLUME 11.4 fL (9.0-12.2); MONOCYTES # (AUTO) 0.7 10^3/uL (0.0-1.0); MONOCYTES % (AUTO) 6 % (0-12); NEUTROPHILS # (AUTO) 10.1 10^3/uL (1.8-7.8); NEUTROPHILS % (AUTO) 88 % (42-75); PATIENT TEMP 36.1; PLATELET COUNT 284 10^3/uL (130-400); VENTILATOR NO; WHITE BLOOD COUNT 11.4 10^3/uL (4.3-11.0)
[2020-05-09 05:44] LABS: BUN/CREATININE RATIO 19; CALCIUM 9.5 MG/DL (8.5-10.1); CARBON DIOXIDE 24 MMOL/L (21-32); CHLORIDE 103 MMOL/L (98-107); CREATININE SERUM 1.01 MG/DL (0.60-1.30); GFR ESTIMATED > 60; GLUCOSE 175 MG/DL (70-105); MAGNESIUM 1.7 MG/DL (1.6-2.4); PHOSPHORUS 2.7 MG/DL (2.3-4.7); POTASSIUM 4.1 MMOL/L (3.6-5.0); SODIUM 139 MMOL/L (135-145)
[2020-05-09] MEDS: PIPERACILLIN/TAZOBACTAM (BULK) 4.5 GM in NS (IVPB) 100 ML IV SCH ×3 (05:53→20:00)
[2020-05-09] MEDS: RT-ALBUTEROL INHALER HFA (VENTOLIN HFA) 18 GM IH SCH ×5 (06:48→22:59)
--- NOTE | 2020-05-09 07:54 | Diagnostic Imaging Report ---
EXAMINATION: Chest 1 view HISTORY: COVID positive. Followup. Dyspnea. COMPARISON: Chest radiograph on 05/08/2020. FINDINGS: Stable right PICC. Interval increase in diffuse interstitial and alveolar opacities throughout the lungs. No large pleural effusion or pneumothorax. The cardiac silhouette is prominent. IMPRESSION: 1. Increasing diffuse opacities throughout the lungs. No pleural effusion. 2. Stable right PICC. Dictated by: Dictated on workstation # [id number]
--- NOTE | 2020-05-09 08:15 | NUR ---
THIS RN SPOKE WITH PT AND PT'S EXTENSIVELY ABOUT INTUBATION. THIS RN EXPLAINED THAT PT IS REQUIRING MAXIMUM AMOUNT OF OXYGEN ON BIPAP AND THAT THE NEXT STEP WOULD BE INTUBATION. PT AND PT'S BOTH AGREED THAT THE PT WOULD BE PLACED ON THE VENTILATOR IF IT WERE NEEDED. WILL CONTINUE TO MONITOR.
[2020-05-09] MEDS ORDERED: FUROSEMIDE 40 MG/4 ML INJ (LASIX) IVP ONE (08:30)
[2020-05-09] MEDS ORDERED: FUROSEMIDE 40 MG/4 ML INJ (LASIX) IVP NR (08:42)
[2020-05-09] MEDS: risperiDONE 0.5 MG (RisperDAL) TABLET PO SCH ×2 (09:09→21:00)
[2020-05-09] MEDS: CLOPIDOGREL 75 MG (PLAVIX) TABLET PO SCH (09:09)
[2020-05-09] MEDS: ALPRAZolam 0.5 MG (XANAX) TAB PO PRN (09:09)
[2020-05-09] MEDS: FAMOTIDINE 20 MG (PEPCID) TABLET PO SCH ×2 (09:09→21:00)
--- NOTE | 2020-05-09 09:10 | NUR ---
Spiritual Care support provided just prior to intubation. Pt alert and oriented. He shared he attends a [employer] restoration in [place] and his is Rastafarian. States he believes in God and is welcoming to people of other Baptism traditions. He said he felt anxious to have his procedure done, and welcomed prayer when Manager Physical offered. He expressed feelings of gratitude and reassurance by the conclusion of our visit.
[2020-05-09] MEDS: ENOXAPARIN 300 MG/3 ML (LOVENOX) MULTI-DOSE VIAL SQ SCH ×2 (09:13→21:00)
--- NOTE | 2020-05-09 09:21 | Physical Therapy Progress Note ---
Therapy Progress Note Patient on hold for now, nurse states he will be intubated today. STACY LOPEZ PT May 09, 2020 09:21
--- NOTE | 2020-05-09 09:23 | NUR ---
Pt is Jehovah'S Witness and attends [employer] [facility]. He expressed concerns for his , whom he states is also hospitalized for COVID. He welcomed prayer and expressed feeling deeper sense of inner peace. Addendum: 05/09/20 at 1425 by EVIN KIRAN PAST WRONG PT
[2020-05-09] MEDS ORDERED: fentaNYL DRIP PRE-MIX 250 ML IV ONE (10:19)
[2020-05-09] MEDS ORDERED: PROPOFOL DRIP (ICU) 100 ML IV ONE (10:19)
[2020-05-09] MEDS ORDERED: NS IV 500 ML 500 ML ONE (10:38)
[2020-05-09] MEDS: PROPOFOL DRIP (ICU) 100 ML IV SCH ×5 (10:55→21:17)
[2020-05-09] MEDS: fentaNYL DRIP PRE-MIX 250 ML IV SCH ×2 (10:59→21:17)
--- NOTE | 2020-05-09 11:03 | Progress Note - Hospitalist ---
JUAN JOSE SINHA, 05/09/20 1103: Subjective Subjective/Events-last exam Mr. Toledo was seen and examined by Dr. Maldonado in the ICU for acute hypoxic r espiratory failure secondary to COVID19. He is currently on 100% BiPAP at 15/8. Per eICU, will trial lasix and wait for 2 hours for any improvement; however, this was not effective and planned to intubate on 05/09. Nursing discussed procedure with family and patient. CXR today revealed complete white-out of bilateral lung fleming. Currently on zosyn day 2 and decadron day 3. I&O net +1L over admission. Focused Exam Lactate Level Objective Exam Vital Signs Vital Signs Date Time Temp Pulse Resp B/P (MAP) Pulse Ox O2 Delivery O2 Flow Rate FiO2 05/09/20 14:43 68 102/47 05/09/20 13:00 26 97 Mechanical Ventilator 90.00 05/09/20 11:44 36.7 05/09/20 11:33 100 Capillary Refill : Less Than 3 Seconds Respiratory: Rhonci (anterior and posterior bilateral lungs) Cardiovascular: Regular Rate, Rhythm Gastrointestinal: Abnormal Bowel Sounds (hypoactive), Distended, Other (tympanic abdomen) Extremity: Pedal Edema (trace) Results/Procedures Lab Laboratory Tests 05/09/20 05:15 Patient resulted labs reviewed. Assessment/Plan Assessment and Plan Assess & Plan/Chief Complaint Acute on chronic respiratory failure secondary to COVID19 infection with pneumonia * Currently requiring BiPAP at 100% at 15/8 * Per eICU, trialed lasix and monitored for 2 hours for possible improvement but not effective * CXR 05/09 revealed complete white-out bilaterally * Will intubate today, 05/09; appreciate anesthesia assistance with this * Dx w/ COVID 05/06 with symptoms x 7 days * Decadron day 3 * Completed convalescent plasma infusions * Does not qualify for Remdesivir Secondary bacterial PNA * Zosyn day 2 ROEL * Improved, Cr down to 1.01 on 05/09 Anxiety * Xanax PRN * Scheduled risperdone 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 Grade 1 diastolic CHF EF 55-60% Diet: npo DVT/GI ppx: pepcid; therapeutic dose lovenox and plavix (pt is on pradaxa and plavix at home) FULL CODE ANAHI MALDONADO MD 05/09/20 1515: Subjective HPI/CC On Admission Date Seen by Provider: May 09, 2020 Time Seen by Provider: 08:30 Review of Systems Pulmonary: Dyspnea Neurological: Weakness Objective Exam General Appearance: Anxious, Chronically ill Neck: Limited Range of Motion Respiratory: Accessory Muscle Use, Decreased Breath Sounds, Rhonci (anterior and posterior bilateral lungs) Cardiovascular: Regular Rate, Rhythm Gastrointestinal: Distended, Other (Hospital fluid wave) Neurologic/Psychiatric: Alert, Oriented x3, Depressed Affect Results/Procedures Imaging: Reviewed Imaging Films, Reviewed Imaging Report Supervisory-Addendum Brief Verification & Attestation Participated in pt care: history, MDM Personally performed: exam, history, MDM, supervision of care Care discussed with: Medical Student, other Procedures: supervised Procedure type: intubation Verification and Attestation of Medical Student E/M Service A medical student performed and documented this service in my presence. I reviewed and verified all information documented by the medical student and made modifications to such information, when appropriate. I personally performed the physical exam and medical decision making. Anahi Maldonado, May 11, 2020,11:56 Patient was beginning to decline with increased oxygen demands and respiratory distress. Patient was electively intubated without complication. Plateau pressures and peak airway pressures have been elevated consistent with ARDS. Tidal volumes have been addressed. Overall prognosis is guarded. JUAN JOSE SINHA, May 09, 2020 11:03 ANAHI MALDONADO MD May 09, 2020 15:15
--- NOTE | 2020-05-09 11:14 | Occ Therapy Progress Note ---
Therapy Progress Note Pt to be intubated today, 05/09/2020. Hold therapy until pt is medically stable to resume OT. GEOVANI VAZQUEZ May 09, 2020 11:14
[2020-05-09] MEDS ORDERED: fentaNYL INJECTION 100 MCG/2 ML AMP ONE (11:22)
--- NOTE | 2020-05-09 11:26 | Anesthesia-Procedure Note ---
Procedures/Interventions Procedure Start/Stop/Diagnosis Date of Procedure: May 09, 2020 Start Time: 10:40 Preprocedural Diagnosis: respiratory distress, covid positive Brief History Called to ICU 5 for non-urgent intubation and covid positive patient. Patient's history reviewed, labs reviewed, VS reviewed. I spoke with patient and he gave consent for intubation and arterial line. All questions answered and we proceeded. Intubated easily with 8.0 ett using Thomas. RT present to assist with securing tube and CXR ordered. We followed intubation with arterial line placement in left radial which was successful on 2nd attempt. Opsite covering. Good waveform noted and correlated well with NIBP at 140/70s. Noted propofol and fentanyl gtt infusing for sedation. Reported off to STEPHANIA Whitten. Stop Time: 11:10 Intubation Reason Intubation/Diagnosis: respiratory distress, covid positive RSI: Yes Vital Signs Pre-procedure 140/70s, HR 90s, SaO2 94% Intubation Method: orotracheal Videoscope used: Yes Grade View: 1 Medications: Propofol (100mg), Succinylcholine (100mg), Versed (2mg) Mask Ventilation: positive Positive End Tide CO2: Yes Breath Sounds after Intubation: bilateral-equal ETT Securred @ (cm): 23 Intubated with ease: Yes Intubation Complications: no complications Post Intubation Xray-done: Yes Arterial Line Arterial Line Catheter: 20G Type: Radial Location: Left Procedure: prepped, draped in sterile fashion, good wave-form was obtained, patient tolerated procedure well, no immediate complications, post procedure area cleaned, post procedure dressing applied GREGORY CARLISLE CRNA May 09, 2020 11:26
[2020-05-09] MEDS ORDERED: fentaNYL INJECTION 100 MCG/2 ML AMP IVP ONE (11:30)
[2020-05-09 11:33] VITALS: BP 110/41
--- NOTE | 2020-05-09 11:34 | Physical Therapy Progress Note ---
Therapy Progress Note Patient is now intubated and sedated, will continue to monitor patient progress and start again if able. STACY LOPEZ PT May 09, 2020 11:34
[2020-05-09 11:48] LABS: ABG BASE EXCESS 4.1 MMOL/L (-2.5-2.5); ABG OXYGEN SATURATION 97 % (94-100); ABG PCO2 53 MMHG (35-45); ABG PH 7.36 (7.37-7.43); ABG PO2 96 MMHG (79-93); ABG TCO2 31.1 MMOL/L (21.0-31.0)
--- NOTE | 2020-05-09 11:48 | NUR ---
TIMELINE NOTE BELOW: 05/09/2020 AT 1010: THIS RN SPOKE WITH DR. SALAMANAC FROM TELE-ICU. DECISION FOR INTUBATION WAS MADE. 05/09/2020 AT 1042: ANESTHESIA AT PT BEDSIDE. 05/09/2020 AT 1046: 2MG VERSED GIVEN IVP BY EFREM SANTA, 100MG PROPOFOL GIVEN IVP BY EFREM SANTA, 100MG SUCCINYLCHOLINE GIVEN IVP BY EFREM SANTA. 05/09/2020 AT 1047: PT INTUBATED WITH 8FR ETT, 23CM AT THE LIP, POSITIVE COLOR CHANGE. VENTILATOR SETTINGS: TV 550, RR 26, PEEP 12, FIO2 100%, PS 5. PT CONVERTED TO AFIB AT THIS TIME. PROPOFOL GTT STARTED AT 20MCG/KG/MIN. 05/09/2020 AT 1049: SOFT RESTRAINTS PLACED TO BILATERAL WRISTS. 05/09/2020 AT 1051: OG PLACED BY THIS RN. 05/09/2020 AT 1100: LEFT RADIAL ARTLINE PLACED BY ANESTHESIA STUDENT WITH EFREM SANTA AT BEDSIDE. PT NOTED TO BE IN SINUS RHYTHM AT THIS TIME. 05/09/2020 AT 1121: THIS RN CALLED TELE-ICU TO UPDATE DR. SALAMANCA ON PT STATUS. THIS RN INFORMED HER THAT PT SATURATING AT 78% ON PEEP 12 AND 100% FIO2. ORDERS TO GIVE ONE TIME DOSE OF FENTANYL 50MCG IVP AND TO INCREASE PEEP TO 16.
--- NOTE | 2020-05-09 11:49 | Diagnostic Imaging Report ---
EXAM: Portable semierect AP chest at 11:23 AM INDICATION: Respiratory distress In the interval since the exam performed earlier today at 3:47 AM the patient has been intubated. The ET tube tip appears to be in good position with the tip lying approximately 3.5 cm cephalad to the jorge alberto. An NG line has also been inserted. The tip of the NG line is not visualized but the line does extend below the diaphragm. The overall appearance of the chest itself has not changed significantly otherwise. There are still diffuse alveolar/interstitial pulmonary infiltrates bilaterally. IMPRESSION: 1. The newly inserted ET tube and NG line seem to be in good position. 2. The overall appearance of the chest is otherwise stable. Dictated by: Dictated on workstation # [id number]
[2020-05-09 11:50] LABS: ALLENS TEST ART LINE; INSPIRED O2 100%; PATIENT TEMP 36.2; VENTILATOR NO
--- NOTE | 2020-05-09 11:57 | NUR ---
THIS RN CALLED PT'S AND PROVIDED UPDATE.
[2020-05-09] MEDS: dexAMETHasone 6 MG TAB (DECADRON) PO SCH (12:17)
--- NOTE | 2020-05-09 13:29 | Occ Therapy Progress Note ---
Therapy Progress Note New OT orders received, pt intubated and sedated. OT will continue to monitor pt's status and initiate skilled therapies when pt is more medically stable and able to actively participate in skilled therapies. BRENDAN SOLANO OT May 09, 2020 13:29
[2020-05-09] MEDS ORDERED: SUCCINYLCHOLINE INJ 100 MG/5 ML SYR/VIAL INJ ONE (14:57)
[2020-05-09] MEDS ORDERED: MIDAZOLAM 5 MG/5 ML (VERSED) VIAL IJ ONE (14:57)
--- NOTE | 2020-05-09 14:59 | NUR ---
Received dietary consult for vent status. Note pt is currently intubated. If pt is to remain NPO for more than 3d, would recommend initiation of Pulmocare via 60ml bolus feeds q4h, with 30ml free water flushes before/after each bolus. Would recommend increasing TF by 30ml q8h as tolerated toward goal of 180ml bolus feeds q4h. Will continue to follow and reassess as pt needs, intake, and status change. Marilu Holland MS RD LD [phone] cell
[2020-05-09 15:05] VITALS: BP 100/46
[2020-05-09 15:42] LABS: ALBUMIN 3.2 GM/DL (3.2-4.5); CHLORIDE 103 MMOL/L (98-107); POTASSIUM 4.3 MMOL/L (3.6-5.0); SODIUM 139 MMOL/L (135-145)
[2020-05-09 15:44] LABS: CALCIUM 9.1 MG/DL (8.5-10.1)
[2020-05-09 15:45] LABS: GLUCOSE 179 MG/DL (70-105); TOTAL PROTEIN 6.6 GM/DL (6.4-8.2)
[2020-05-09 15:46] LABS: CARBON DIOXIDE 23 MMOL/L (21-32)
[2020-05-09 15:47] LABS: BILIRUBIN,TOTAL 0.8 MG/DL (0.1-1.0)
[2020-05-09 15:48] LABS: ALKALINE PHOSPHATASE 116 U/L (40-136); CREATININE SERUM 1.08 MG/DL (0.60-1.30); GFR ESTIMATED > 60
[2020-05-09 15:49] LABS: BUN/CREATININE RATIO 19
[2020-05-09 15:51] LABS: ALANINE AMINOTRANSFERASE 33 U/L (0-55)
[2020-05-09] MEDS ORDERED: LORazepam INJ 2 MG/ML (ATIVAN) VIAL IVP PRN (18:15)
[2020-05-09 18:27] VITALS: BP 148/67
[2020-05-09] MEDS: ARTIFICIAL TEARS OINT (LACRI-LUBE) 3.5 GM TUBE OU SCH (21:00)
[2020-05-09 22:59] VITALS: BP 113/56
[2020-05-10 02:13] VITALS: BP 113/55
[2020-05-10] MEDS: RT-ALBUTEROL INHALER HFA (VENTOLIN HFA) 18 GM IH SCH ×6 (02:13→21:31)
[2020-05-10 03:15] LABS: ABG BASE EXCESS 2.8 MMOL/L (-2.5-2.5); ABG OXYGEN SATURATION 97 % (94-100); ABG PCO2 49 MMHG (35-45); ABG PH 7.37 (7.37-7.43); ABG PO2 84 MMHG (79-93); ABG TCO2 29.3 MMOL/L (21.0-31.0)
[2020-05-10 03:16] LABS: BASOPHILS % (AUTO) 0 % (0-10); EOSINOPHILS % (AUTO) 0 % (0-10); HEMATOCRIT 34 % (40-54); HEMOGLOBIN 10.9 g/dL (13.3-17.7); LYMPHOCYTES # (AUTO) 0.7 10^3/uL (1.0-4.0); LYMPHOCYTES % (AUTO) 9 % (12-44); MEAN CORPUSCULAR HEMOGLOBIN 31 pg (25-34); MEAN CORPUSCULAR HGB CONC 32 g/dL (32-36); MEAN CORPUSCULAR VOLUME 96 fL (80-99); MEAN PLATELET VOLUME 11.3 fL (9.0-12.2); MONOCYTES # (AUTO) 0.3 10^3/uL (0.0-1.0); MONOCYTES % (AUTO) 4 % (0-12); NEUTROPHILS # (AUTO) 7.1 10^3/uL (1.8-7.8); NEUTROPHILS % (AUTO) 86 % (42-75); PLATELET COUNT 274 10^3/uL (130-400); WHITE BLOOD COUNT 8.3 10^3/uL (4.3-11.0)
[2020-05-10 03:19] LABS: ALLENS TEST POSITIVE; INSPIRED O2 40; PATIENT TEMP 36.3; VENTILATOR YES
[2020-05-10 03:33] LABS: POTASSIUM 4.1 MMOL/L (3.6-5.0)
[2020-05-10 03:35] LABS: CALCIUM 8.6 MG/DL (8.5-10.1)
[2020-05-10 03:39] LABS: CREATININE SERUM 1.26 MG/DL (0.60-1.30)
[2020-05-10] MEDS: PROPOFOL DRIP (ICU) 100 ML IV SCH ×5 (05:41→20:10)
[2020-05-10] MEDS: PIPERACILLIN/TAZOBACTAM (BULK) 4.5 GM in NS (IVPB) 100 ML IV SCH ×3 (05:41→20:10)
[2020-05-10] MEDS: fentaNYL DRIP PRE-MIX 250 ML IV SCH ×2 (05:42→15:57)
--- NOTE | 2020-05-10 06:01 | NUR ---
call placed to tele ICU regarding pt HR. has been in the 30s and 40s steady for a few hours. Tele ICU advised to continue to monitor and report back if BP changes.
[2020-05-10 06:54] VITALS: BP 121/55
[2020-05-10] MEDS: ARTIFICIAL TEARS OINT (LACRI-LUBE) 3.5 GM TUBE OU SCH ×2 (07:56→20:13)
[2020-05-10] MEDS: FAMOTIDINE 20 MG (PEPCID) TABLET PO SCH ×2 (07:56→20:11)
[2020-05-10] MEDS: risperiDONE 0.5 MG (RisperDAL) TABLET PO SCH ×2 (07:57→20:11)
[2020-05-10] MEDS: CLOPIDOGREL 75 MG (PLAVIX) TABLET PO SCH (07:57)
[2020-05-10] MEDS: ENOXAPARIN 300 MG/3 ML (LOVENOX) MULTI-DOSE VIAL SQ SCH ×2 (07:57→20:11)
--- NOTE | 2020-05-10 08:12 | NUR ---
FULL BODY SALLY HUGGER APPLIED TO PT FOR AXILLARY TEMPERATURE OF 32.8C.
--- NOTE | 2020-05-10 10:15 | NUR ---
THIS RN CALLED PT'S AND PROVIDED UPDATE.
[2020-05-10 10:26] VITALS: BP 119/50
--- NOTE | 2020-05-10 11:12 | Physical Therapy Progress Note ---
Therapy Progress Note Pt remains intubated this date. Will continue to follow and initiate PT services when pt medically able to actively participate. JUNIE HURLEY PT May 10, 2020 11:12
[2020-05-10] MEDS: dexAMETHasone 6 MG TAB (DECADRON) PO SCH (11:23)
--- NOTE | 2020-05-10 11:38 | Progress Note - Hospitalist ---
ENRESTINEJUAN JOSE, 05/10/20 1138: Subjective HPI/CC On Admission Time Seen by Provider: 09:00 Subjective/Events-last exam Mr. Toledo was seen and examined by Dr. Madden in the ICU for acute hypoxic respiratory failure secondary to COVID19 infection. Patient was intubated 05/09 for increasing oxygen requirements. He is currently on FiO2 45%, PEEP 16, TV 500, RR 25, peak pressure 39. Sedated with fentanyl and propofol but is now experiencing bradycardia. Objective Exam Vital Signs Vital Signs Date Time Temp Pulse Resp B/P (MAP) Pulse Ox O2 Delivery O2 Flow Rate FiO2 05/10/20 11:21 33.6 05/10/20 10:26 52 26 90 35 05/10/20 10:00 Mechanical Ventilator 45.00 Capillary Refill : Less Than 3 Seconds General Appearance: Other (intubated) Respiratory: Normal Breath Sounds Cardiovascular: Bradycardia Gastrointestinal: Abnormal Bowel Sounds (hypoactive), Distended Results/Procedures Lab Laboratory Tests 05/10/20 02:54 Patient resulted labs reviewed. Imaging: Reviewed Imaging Films, Reviewed Imaging Report Assessment/Plan Assessment and Plan Assess & Plan/Chief Complaint Acute on chronic respiratory failure secondary to COVID19 infection with pneumonia * Intubated 05/09 by anesthesia; appreciate anesthesia assistance with this * FiO2 45%, PEEP 12, TV 500, RR 25, peak pressure 39 * Dx w/ COVID 05/06 with symptoms x 7 days * Decadron day 3 * Completed convalescent plasma infusions * Does not qualify for Remdesivir * Sedated with propofol and fentanyl * Will d/c propofol secondary to bradycardia Secondary bacterial PNA * Zosyn day 3 Abdominal distension * Pt has severely distended abdomen and decreased bowel sounds * Will order KUB for further evaluation ROEL - improved Anxiety * Xanax PRN * Scheduled risperdone 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 Grade 1 diastolic CHF EF 55-60% Diet: npo DVT/GI ppx: pepcid; therapeutic dose lovenox and plavix (pt is on pradaxa and plavix at home) FULL CODE Critical Care: Critically Ill Patient ANAHI MADDEN MD 05/10/20 1317: Subjective HPI/CC On Admission Date Seen by Provider: May 10, 2020 Objective Exam General Appearance: Other (intubated) Respiratory: Lungs Clear, Normal Breath Sounds, No Accessory Muscle Use Cardiovascular: Bradycardia Gastrointestinal: Abnormal Bowel Sounds (hypoactive), Distended, Other Extremity: No Pedal Edema (Tight) Results/Procedures Imaging: Reviewed Imaging Films, Reviewed Imaging Report Assessment/Plan Assessment and Plan Critical Care: Ventilator Management Time spent with patient (mins): 30 Supervisory-Addendum Brief Verification & Attestation Participated in pt care: history, MDM, physical Personally performed: exam, history, MDM, supervision of care Care discussed with: Medical Student, other Procedures: n/a Results interpretation: Verified all documentation Verification and Attestation of Medical Student E/M Service A medical student performed and documented this service in my presence. I reviewed and verified all information documented by the medical student and made modifications to such information, when appropriate. I personally performed the physical exam and medical decision making. Anahi Madden, May 10, 2020,13:16 Patient has been bradycardic with a stable blood pressure. Will need to monit or closely to possibly discontinue propofol. May possibly change to Precedex since the patient appears to have had some seizure-like activity. The patient did give me history of alcoholism in the past but said he had not had a drink in 2 years but his physical appeared to be consistent with somebody that had been recently drinking heavily. Will monitor closely use Ativan as needed continue consider changing to Precedex. Have discussed with RT and nursing staff JUAN JOSE SINHA, May 10, 2020 11:38 ANAHI MADDEN MD May 10, 2020 13:17
--- NOTE | 2020-05-10 12:19 | Diagnostic Imaging Report ---
INDICATION: Dyspnea, estimated. TECHNIQUE: Single view chest 10:15 AM. CORRELATION STUDY: 05/09/2020 FINDINGS: Endotracheal tube, gastric tube and right-sided central line remain in place. Heart size and mediastinum appear generally stable. Extensive 5 lobe infiltrate is again demonstrated. However, there has been fairly significant improvement since one day earlier. IMPRESSION: 1. Stable support lines and tubes. 2. Extensive 5 lobe infiltrate persist but overall has significantly improved from prior. Findings remain most pronounced involving the right lung base. Dictated by: Dictated on workstation # [id number]
--- NOTE | 2020-05-10 13:15 | NUR ---
DR. MADDEN NOTIFIED OF SUSPECTED SEIZURE ACTIVITY.
[2020-05-10 14:29] VITALS: BP 124/55
[2020-05-10] MEDS: PANTOPRAZOLE 40 MG (PROTONIX) VIAL IV SCH (14:33)
[2020-05-10 18:41] VITALS: BP 128/58
[2020-05-10 21:31] VITALS: BP 128/59
[2020-05-11] VITALS (7 sets, daily range): BP systolic 107–140; BP diastolic 49–63
[2020-05-11] MEDS: RT-ALBUTEROL INHALER HFA (VENTOLIN HFA) 18 GM IH SCH ×6 (01:31→22:12)
[2020-05-11] MEDS: LACTATED RINGERS 1,000 ML IV SCH ×2 (01:34→20:31)
[2020-05-11 02:55] LABS: BASOPHILS % (AUTO) 0 % (0-10); EOSINOPHILS % (AUTO) 0 % (0-10); HEMATOCRIT 37 % (40-54); HEMOGLOBIN 11.6 g/dL (13.3-17.7); LYMPHOCYTES # (AUTO) 0.6 10^3/uL (1.0-4.0); LYMPHOCYTES % (AUTO) 7 % (12-44); MEAN CORPUSCULAR HEMOGLOBIN 31 pg (25-34); MEAN CORPUSCULAR HGB CONC 31 g/dL (32-36); MEAN CORPUSCULAR VOLUME 98 fL (80-99); MEAN PLATELET VOLUME 11.5 fL (9.0-12.2); MONOCYTES # (AUTO) 0.5 10^3/uL (0.0-1.0); MONOCYTES % (AUTO) 6 % (0-12); NEUTROPHILS % (AUTO) 85 % (42-75); PLATELET COUNT 301 10^3/uL (130-400); WHITE BLOOD COUNT 8.2 10^3/uL (4.3-11.0)
[2020-05-11 02:56] LABS: ABG BASE EXCESS 1.1 MMOL/L (-2.5-2.5); ABG OXYGEN SATURATION 98 % (94-100); ABG PCO2 64 MMHG (35-45); ABG PO2 126 MMHG (79-93); ABG TCO2 29.5 MMOL/L (21.0-31.0)
[2020-05-11 02:58] LABS: ALLENS TEST POSITIVE; INSPIRED O2 45; PATIENT TEMP 36.6; VENTILATOR YES
[2020-05-11 03:03] LABS: ABG PH 7.26 (7.37-7.43)
[2020-05-11 03:04] LABS: POTASSIUM 4.3 MMOL/L (3.6-5.0)
[2020-05-11 03:05] LABS: CALCIUM 8.5 MG/DL (8.5-10.1)
[2020-05-11 03:09] LABS: CREATININE SERUM 1.72 MG/DL (0.60-1.30); PHOSPHORUS 6.5 MG/DL (2.3-4.7)
[2020-05-11 03:12] LABS: MAGNESIUM 2.2 MG/DL (1.6-2.4)
[2020-05-11] MEDS: PIPERACILLIN/TAZOBACTAM (BULK) 4.5 GM in NS (IVPB) 100 ML IV SCH ×3 (04:00→20:31)
[2020-05-11] MEDS: PROPOFOL DRIP (ICU) 100 ML IV SCH ×6 (05:20→23:12)
[2020-05-11] MEDS: fentaNYL DRIP PRE-MIX 250 ML IV SCH ×3 (05:21→20:32)
[2020-05-11] MEDS: risperiDONE 0.5 MG (RisperDAL) TABLET PO SCH ×2 (07:56→20:32)
[2020-05-11] MEDS: PANTOPRAZOLE 40 MG (PROTONIX) VIAL IV SCH (08:28)
[2020-05-11] MEDS: ARTIFICIAL TEARS OINT (LACRI-LUBE) 3.5 GM TUBE OU SCH ×2 (08:28→20:32)
[2020-05-11] MEDS: FAMOTIDINE 20 MG (PEPCID) TABLET PO SCH ×2 (08:28→20:32)
[2020-05-11] MEDS: CLOPIDOGREL 75 MG (PLAVIX) TABLET PO SCH (08:28)
[2020-05-11] MEDS: ENOXAPARIN 300 MG/3 ML (LOVENOX) MULTI-DOSE VIAL SQ SCH ×2 (08:29→20:32)
[2020-05-11 09:02] LABS: ABG BASE EXCESS 0.7 MMOL/L (-2.5-2.5); ABG OXYGEN SATURATION 95 % (94-100); ABG PCO2 61 MMHG (35-45); ABG PO2 90 MMHG (79-93); ABG TCO2 28.9 MMOL/L (21.0-31.0)
[2020-05-11 09:07] LABS: ABG PH 7.27 (7.37-7.43)
[2020-05-11 09:08] LABS: ALLENS TEST ART LINE; INSPIRED O2 45%; PATIENT TEMP 36.4; VENTILATOR YES
--- NOTE | 2020-05-11 09:15 | Diagnostic Imaging Report ---
Clinical indications: Patient with abdominal distention and COVID positive. Patient on ventilator. EXAM: Portable x-rays of the abdomen supine view. COMPARISON: CT scan of abdomen and pelvis with contrast dated 01/02/2019. FINDINGS: There is a paucity of bowel gas overlying the abdomen. A small amount of air overlying the right colon region. Feeding tube seen with distal portion overlying the expected region of the gastric body. There are degenerative spurs involving the spine. Surgical clips are seen overlying the right upper quadrant which could be related to cholecystectomy changes. IMPRESSION: Nonspecific bowel gas pattern. There is a paucity of bowel gas overlying most of the abdomen. If there is concern for intestinal obstruction, then CT scan would better evaluate. Dictated by: Dictated on workstation # [id number]
--- NOTE | 2020-05-11 10:03 | Diagnostic Imaging Report ---
Clinical Indications: Patient with dyspnea. Exam: Portable chest x-ray upright view. Comparisons: Chest x-ray dated 05/10/2020. Findings: There is interval progression of diffuse bilateral lung infiltrates with progression of partial consolidation of both lungs. The bilateral costophrenic angle regions are obscured which may be related to pleural effusions or lung disease. Cardiac silhouette and pulmonary vasculature are now predominantly obscured. ET tube and feeding tube again seen in stable good position. IMPRESSION: 1: There is interval progression of diffuse bilateral lung infiltrates with now progression of partial consolidation of both lungs. 2: Stable lines and tubes. Dictated by: Dictated on workstation # [id number]
--- NOTE | 2020-05-11 10:56 | Progress Note - Hospitalist ---
ERNESTINEJUAN JOSE, 05/11/20 1056: Subjective HPI/CC On Admission Time Seen by Provider: 09:47 Subjective/Events-last exam Mr. Toledo was seen and examined by Dr. Madden in the ICU for acute respiratory failure secondary to COVID19 infection. He is currently mechanically ventilated with FiO2 60%, PEEP 12, pressure 36. Sedated with propofol and fentanyl. Nursing has noted he has been having seizure-like activity but is currently stable. Objective Exam Vital Signs Vital Signs Date Time Temp Pulse Resp B/P (MAP) Pulse Ox O2 Delivery O2 Flow Rate FiO2 05/11/20 10:49 Mechanical Ventilator 40.00 05/11/20 10:02 69 26 96 50 05/11/20 10:00 36.3 Capillary Refill : Less Than 3 Seconds General Appearance: Other (intubated) Respiratory: Lungs Clear Cardiovascular: Normal Peripheral Pulses, Other (irregular) Gastrointestinal: Normal Bowel Sounds, Soft, Distended (less so than prior) Results/Procedures Lab Laboratory Tests 05/11/20 02:42 Patient resulted labs reviewed. Imaging: Reviewed Imaging Films, Reviewed Imaging Report Assessment/Plan Assessment and Plan Assess & Plan/Chief Complaint Acute on chronic respiratory failure secondary to COVID19 infection with pneumonia * Intubated 05/09 by anesthesia; appreciate anesthesia assistance with this * FiO2 60%, PEEP 12, TV 450, RR 25, peak pressure 36 * Dx w/ COVID 05/06 with symptoms x 7 days * Decadron day 4 * Completed convalescent plasma infusions * Does not qualify for Remdesivir * Sedated with propofol and fentanyl * Monitor for seizure-like activity Secondary bacterial PNA * Zosyn day 4 Abdominal distension * KUB revealed nonspecific bowel gas pattern with a paucity of bowel gas overlying most of the abdomen * Will monitor ROEL - improved Anxiety * Xanax PRN * Scheduled risperdone 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 Grade 1 diastolic CHF EF 55-60% Diet: npo - consult nutrition for tube feedings DVT/GI ppx: pepcid; therapeutic dose lovenox and plavix (pt is on pradaxa and plavix at home) FULL CODE Critical Care: Critically Ill Patient ANAHI MADDEN MD 05/11/20 1155: Subjective HPI/CC On Admission Date Seen by Provider: May 11, 2020 Supervisory-Addendum Brief Verification & Attestation Participated in pt care: history, MDM, physical Personally performed: exam, history, supervision of care Care discussed with: Medical Student, other (Respiratory therapist, RN) Procedures: n/a Currently is stable Verification and Attestation of Medical Student E/M Service A medical student performed and documented this service in my presence. I reviewed and verified all information documented by the medical student and made modifications to such information, when appropriate. I personally performed the physical exam and medical decision making. 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 JUAN JOSE SINHA, May 11, 2020 10:56 ANAHI MADDEN MD May 11, 2020 11:55
--- NOTE | 2020-05-11 11:04 | NUR ---
THIS RN CALLED PT'S AND PROVIDED UPDATE.
[2020-05-11] MEDS: dexAMETHasone 6 MG TAB (DECADRON) PO SCH (11:32)
[2020-05-12] MEDS: RT-ALBUTEROL INHALER HFA (VENTOLIN HFA) 18 GM IH SCH ×6 (01:51→21:05)
[2020-05-12 01:52] VITALS: BP 131/52
[2020-05-12 03:59] LABS: BASOPHILS % (AUTO) 0 % (0-10); EOSINOPHILS # (AUTO) 0.1 10^3/uL (0.0-0.3); EOSINOPHILS % (AUTO) 1 % (0-10); HEMATOCRIT 36 % (40-54); HEMOGLOBIN 11.1 g/dL (13.3-17.7); LYMPHOCYTES # (AUTO) 0.9 10^3/uL (1.0-4.0); LYMPHOCYTES % (AUTO) 14 % (12-44); MEAN CORPUSCULAR HEMOGLOBIN 31 pg (25-34); MEAN CORPUSCULAR HGB CONC 31 g/dL (32-36); MEAN CORPUSCULAR VOLUME 98 fL (80-99); MEAN PLATELET VOLUME 11.3 fL (9.0-12.2); MONOCYTES # (AUTO) 0.4 10^3/uL (0.0-1.0); MONOCYTES % (AUTO) 6 % (0-12); NEUTROPHILS # (AUTO) 4.7 10^3/uL (1.8-7.8); NEUTROPHILS % (AUTO) 77 % (42-75); PLATELET COUNT 281 10^3/uL (130-400); WHITE BLOOD COUNT 6.1 10^3/uL (4.3-11.0)
[2020-05-12 04:01] LABS: ABG BASE EXCESS 1.3 MMOL/L (-2.5-2.5); ABG OXYGEN SATURATION 97 % (94-100); ABG PCO2 56 MMHG (35-45); ABG PO2 84 MMHG (79-93)
[2020-05-12 04:03] LABS: ALLENS TEST ARTLINE; INSPIRED O2 65; PATIENT TEMP 36; VENTILATOR YES
[2020-05-12 04:21] LABS: POTASSIUM 4.4 MMOL/L (3.6-5.0)
[2020-05-12 04:22] LABS: CALCIUM 8.4 MG/DL (8.5-10.1)
[2020-05-12] MEDS: fentaNYL DRIP PRE-MIX 250 ML IV SCH ×4 (04:22→22:26)
[2020-05-12] MEDS: PIPERACILLIN/TAZOBACTAM (BULK) 4.5 GM in NS (IVPB) 100 ML IV SCH ×3 (04:22→19:30)
[2020-05-12] MEDS: PROPOFOL DRIP (ICU) 100 ML IV SCH ×6 (04:24→22:26)
[2020-05-12 04:27] LABS: CREATININE SERUM 1.42 MG/DL (0.60-1.30); PHOSPHORUS 4.1 MG/DL (2.3-4.7)
[2020-05-12 04:29] LABS: MAGNESIUM 2.4 MG/DL (1.6-2.4)
--- NOTE | 2020-05-12 05:31 | Pulmonary Progress Note ---
Subjective Date Seen by a Provider: May 12, 2020 Time Seen by a Provider: 05:25 Subjective/Events-last exam Pt was intubated during the weekend Sepsis Event Evaluation Height, Weight, BMI Height: 5'11.00" Weight: 191lbs. 0.0oz. 86.596731zb; 34.11 BMI Method:Stated Exam Exam Vital Signs Date Time Temp Pulse Resp B/P (MAP) Pulse Ox O2 Delivery O2 Flow Rate FiO2 05/12/20 04:24 41 131/52 05/12/20 01:52 41 26 96 40 05/12/20 01:00 43 05/12/20 00:00 36.1 46 29 94 Mechanical Ventilator 50.00 05/11/20 23:12 47 115/49 05/11/20 23:00 36.2 45 26 94 Mechanical Ventilator 50.00 05/11/20 22:12 47 26 94 40 05/11/20 22:00 36.4 49 26 94 Mechanical Ventilator 50.00 05/11/20 21:00 36.4 49 25 93 Mechanical Ventilator 50.00 05/11/20 21:00 92 Mechanical Ventilator 45 05/11/20 20:00 36.4 49 26 93 Mechanical Ventilator 50.00 05/11/20 19:00 36.4 52 25 93 Mechanical Ventilator 50.00 05/11/20 19:00 52 05/11/20 18:28 50 26 96 50 05/11/20 18:00 36.4 49 25 96 Mechanical Ventilator 50.00 05/11/20 17:55 53 113/49 05/11/20 17:00 36.3 57 25 96 Mechanical Ventilator 50.00 05/11/20 16:00 36.3 59 25 92 Mechanical Ventilator 50.00 05/11/20 15:00 36.2 600 25 94 Mechanical Ventilator 50.00 05/11/20 14:08 67 26 91 40 05/11/20 14:06 72 145/60 05/11/20 14:00 36.0 64 91 Mechanical Ventilator 50.00 05/11/20 13:00 36.0 57 25 94 Mechanical Ventilator 50.00 05/11/20 13:00 60 05/11/20 12:00 36.1 61 25 94 Mechanical Ventilator 50.00 05/11/20 11:33 63 123/48 05/11/20 11:00 36.1 64 25 94 Mechanical Ventilator 50.00 05/11/20 10:51 Mechanical Ventilator 50.00 05/11/20 10:49 Mechanical Ventilator 40.00 05/11/20 10:02 69 26 96 50 05/11/20 10:00 36.3 63 98 Mechanical Ventilator 60.00 05/11/20 09:17 95 Mechanical Ventilator 45 05/11/20 09:00 36.4 80 93 Mechanical Ventilator 60.00 05/11/20 08:43 129 134/59 05/11/20 08:40 Mechanical Ventilator 60.00 05/11/20 08:27 Mechanical Ventilator 50.00 05/11/20 08:00 36.4 68 25 96 Mechanical Ventilator 45.00 05/11/20 07:56 50 05/11/20 07:12 72 26 97 50 05/11/20 07:00 36.4 72 25 97 Mechanical Ventilator 45.00 05/11/20 07:00 68 05/11/20 06:00 36.4 70 25 97 Mechanical Ventilator 45.00 I & O 05/12/20 07:00 Intake Total 770 ml Output Total 1350 ml Balance -580 ml Height & Weight Height: 5'11.00" Weight: 191lbs. 0.0oz. 86.918944pl; 34.11 BMI Method:Stated General Appearance: Anxious, Chronically ill HEENT: PERRL/EOMI, Pharynx Normal, Other (Mucous membranes dry) Neck: Limited Range of Motion Respiratory: Accessory Muscle Use, Decreased Breath Sounds, Rhonci (anterior and posterior bilateral lungs) Cardiovascular: Regular Rate, Rhythm Capillary Refill: Less Than 3 Seconds Extremity: No Pedal Edema (Tight) Neurologic/Psychiatric: Alert, Oriented x3, Depressed Affect Results Lab Laboratory Tests 05/11/20 02:42 05/12/20 03:40 Assessment/Plan Assessment/Plan Acute respiratory failure Pt intubated on 05/09 -EICU managed through the weekend -Vent 450//12 and 45% -Propofol at 20 and Fentanyl at 120 PRN Ativan -Start proning pt COVID 19 with pneumonia -Repeat PCT -Dx 05/06- symptoms x 7 days -Decadron -s/p CVP -Does not qualify for Remdesivir -BiPAP PRN ARF -LR currently 60 Secondary bacterial PNA - Zosyn 05/08 ROEL -MONTIOR Anxiety -Ativan PRN 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
[2020-05-12 07:06] VITALS: BP 129/49
--- NOTE | 2020-05-12 08:04 | Physical Therapy Progress Note ---
Therapy Progress Note Patient is sedated and intubated. PT will continue to monitor patient status. GUY SANTOS PT May 12, 2020 08:04
--- NOTE | 2020-05-12 08:45 | Diagnostic Imaging Report ---
INDICATION: COVID pneumonia. ET tube, NG tube and right PICC line are in good position. The lungs are well-aerated. Five lobe infiltrates are present though there has been decrease in the density of the infiltrates bilaterally. There is mild cardiomegaly. Small bilateral pleural effusion. IMPRESSION: 1. Tubes and lines remain in good position. 2. Five lobe alveolar infiltrate shows some decrease in density bilaterally when compared with previous exam. Dictated by: Dictated on workstation # [id number]
[2020-05-12] MEDS: ENOXAPARIN 300 MG/3 ML (LOVENOX) MULTI-DOSE VIAL SQ SCH ×2 (08:46→20:54)
[2020-05-12] MEDS: CLOPIDOGREL 75 MG (PLAVIX) TABLET PO SCH (08:46)
[2020-05-12] MEDS: PANTOPRAZOLE 40 MG (PROTONIX) VIAL IV SCH (08:46)
[2020-05-12] MEDS: FAMOTIDINE 20 MG (PEPCID) TABLET PO SCH ×2 (08:46→19:29)
[2020-05-12] MEDS: ARTIFICIAL TEARS OINT (LACRI-LUBE) 3.5 GM TUBE OU SCH ×2 (08:46→19:29)
[2020-05-12 10:15] VITALS: BP 131/48
[2020-05-12] MEDS: LACTATED RINGERS 1,000 ML IV SCH ×2 (10:46→14:16)
--- NOTE | 2020-05-12 11:28 | Physical Therapy Progress Note ---
Therapy Progress Note Non skilled PROM B U/LE all available planes. GEOVANI BRIGHT PT May 12, 2020 11:28
[2020-05-12] MEDS: dexAMETHasone 6 MG TAB (DECADRON) PO SCH (12:11)
--- NOTE | 2020-05-12 12:31 | NUR ---
SPOKE WITH PTS MARIVEL AT THIS TIME. UPDATED ON PT STATUS ET ANSWERED ANY QUESTIONS SHE HAD.
--- NOTE | 2020-05-12 14:29 | NUR ---
CONTACTED DR. MAI REGARDING PT HYPERTENSION. NEW ORDER RECEIVED FOR MEDICATION SEE EMAR.
[2020-05-12 14:42] VITALS: BP 156/61
[2020-05-12] MEDS: hydrALAZINE (APESOLINE) 20 MG/ML VIAL IV PRN ×2 (15:38→20:54)
[2020-05-12 18:10] VITALS: BP 179/62
[2020-05-12 21:05] VITALS: BP 163/56
--- NOTE | 2020-05-12 22:59 | NUR ---
Call to E ICU regarding continued hypertension despite Hydralazine administration, patient continues to have Systolic BP >170. Order at this time to resume home dose of Amlodipine 10mg daily.
[2020-05-12] MEDS: inSUlin ASPART (NovoLOG) 1 UNIT/0.01 ML (CHARGE PER UNIT) SC SCH (23:12)
[2020-05-12] MEDS ORDERED: amLODIPine 5 MG (NORVASC) TAB ONE (23:19)
[2020-05-12] MEDS ORDERED: amLODIPine 10 MG (NORVASC) TAB ONE (23:20)
[2020-05-12] MEDS ORDERED: amLODIPine 10 MG (NORVASC) TAB PO ONE (23:30)
[2020-05-13] MEDS: PROPOFOL DRIP (ICU) 100 ML IV SCH ×7 (01:09→21:26)
[2020-05-13] MEDS: RT-ALBUTEROL INHALER HFA (VENTOLIN HFA) 18 GM IH SCH ×6 (02:04→23:07)
[2020-05-13 02:05] VITALS: BP 152/62
[2020-05-13 02:50] LABS: ABG BASE EXCESS -0.3 MMOL/L (-2.5-2.5); ABG OXYGEN SATURATION 90 % (94-100); ABG PCO2 56 MMHG (35-45); ABG PO2 63 MMHG (79-93); ABG TCO2 27.5 MMOL/L (21.0-31.0)
[2020-05-13 02:51] LABS: ALLENS TEST ARTLINE; INSPIRED O2 40; PATIENT TEMP 36.6; VENTILATOR YES
[2020-05-13 02:52] LABS: ABG PH 7.28 (7.37-7.43)
[2020-05-13 02:54] LABS: BASOPHILS % (AUTO) 0 % (0-10); CHLORIDE 109 MMOL/L (98-107); EOSINOPHILS # (AUTO) 0.1 10^3/uL (0.0-0.3); EOSINOPHILS % (AUTO) 1 % (0-10); HEMATOCRIT 38 % (40-54); HEMOGLOBIN 12.1 g/dL (13.3-17.7); LYMPHOCYTES # (AUTO) 0.9 10^3/uL (1.0-4.0); LYMPHOCYTES % (AUTO) 9 % (12-44); MEAN CORPUSCULAR HEMOGLOBIN 31 pg (25-34); MEAN CORPUSCULAR HGB CONC 32 g/dL (32-36); MEAN CORPUSCULAR VOLUME 99 fL (80-99); MEAN PLATELET VOLUME 11.5 fL (9.0-12.2); MONOCYTES # (AUTO) 0.8 10^3/uL (0.0-1.0); MONOCYTES % (AUTO) 8 % (0-12); NEUTROPHILS # (AUTO) 8.1 10^3/uL (1.8-7.8); NEUTROPHILS % (AUTO) 79 % (42-75); PLATELET COUNT 295 10^3/uL (130-400); POTASSIUM 4.4 MMOL/L (3.6-5.0); SODIUM 143 MMOL/L (135-145); WHITE BLOOD COUNT 10.2 10^3/uL (4.3-11.0)
[2020-05-13 02:55] LABS: CALCIUM 8.6 MG/DL (8.5-10.1)
[2020-05-13 02:56] LABS: GLUCOSE 105 MG/DL (70-105); TRIGLYCERIDES 445 MG/DL (<150)
[2020-05-13] MEDS: KCL 20 MEQ TAB (K-DUR) PO SCH (02:56)
[2020-05-13] MEDS: POTASSIUM CL 10MEQ/50ML IVPB 50 ML IV SCH (02:56)
[2020-05-13] MEDS: inSUlin ASPART (NovoLOG) 1 UNIT/0.01 ML (CHARGE PER UNIT) SC SCH ×4 (02:57→23:33)
[2020-05-13 02:58] LABS: CARBON DIOXIDE 22 MMOL/L (21-32)
[2020-05-13 03:00] LABS: CREATININE SERUM 1.18 MG/DL (0.60-1.30); GFR ESTIMATED > 60; PHOSPHORUS 3.5 MG/DL (2.3-4.7)
[2020-05-13 03:01] LABS: BUN/CREATININE RATIO 30
[2020-05-13 03:02] LABS: MAGNESIUM 2.5 MG/DL (1.6-2.4)
[2020-05-13] MEDS: MAGNESIUM 1 GM/100 ML IVPB 100 ML IV SCH (03:24)
[2020-05-13] MEDS: PIPERACILLIN/TAZOBACTAM (BULK) 4.5 GM in NS (IVPB) 100 ML IV SCH ×3 (03:44→19:55)
[2020-05-13] MEDS: LACTATED RINGERS 1,000 ML IV SCH (03:50)
[2020-05-13] MEDS ORDERED: FUROSEMIDE 40 MG/4 ML INJ (LASIX) IVP ONE (05:00)
--- NOTE | 2020-05-13 05:03 | Pulmonary Progress Note ---
Subjective Date Seen by a Provider: May 13, 2020 Time Seen by a Provider: 04:59 Subjective/Events-last exam Pt is sedated on vent. Sepsis Event Evaluation Height, Weight, BMI Height: 5'11.00" Weight: 191lbs. 0.0oz. 86.595901hu; 34.11 BMI Method:Stated Exam Exam Vital Signs Date Time Temp Pulse Resp B/P (MAP) Pulse Ox O2 Delivery O2 Flow Rate FiO2 05/13/20 03:50 78 160/64 05/13/20 02:05 84 28 97 35 05/13/20 01:09 77 162/62 05/13/20 01:00 81 05/13/20 00:19 Mechanical Ventilator 40.00 05/12/20 22:26 89 184/71 05/12/20 21:05 78 27 97 35 05/12/20 20:30 93 Mechanical Ventilator 35 05/12/20 19:33 83 177/69 05/12/20 19:25 36.6 80 26 93 Mechanical Ventilator 35.00 05/12/20 19:00 82 05/12/20 18:10 84 27 95 35 05/12/20 18:00 36.6 85 25 94 Mechanical Ventilator 35.00 05/12/20 17:10 98 176/71 05/12/20 17:00 36.5 78 26 95 Mechanical Ventilator 35.00 05/12/20 16:00 36.3 74 24 97 Mechanical Ventilator 35.00 05/12/20 15:00 36.3 60 26 97 Mechanical Ventilator 35.00 05/12/20 14:42 60 26 96 35 05/12/20 14:17 Mechanical Ventilator 35.00 05/12/20 14:16 66 177/74 05/12/20 14:00 36.3 46 42 100 Mechanical Ventilator 45.00 05/12/20 13:22 51 05/12/20 13:00 36.2 49 34 100 Mechanical Ventilator 45.00 05/12/20 12:00 36.3 67 20 99 Mechanical Ventilator 45.00 05/12/20 11:00 36.4 80 26 100 Mechanical Ventilator 45.00 05/12/20 10:45 65 170/63 05/12/20 10:15 45 26 98 45 05/12/20 10:00 36.3 46 25 98 Mechanical Ventilator 45.00 05/12/20 09:00 92 Mechanical Ventilator 45 05/12/20 09:00 36.3 50 25 98 Mechanical Ventilator 45.00 05/12/20 08:00 36.2 44 25 97 Mechanical Ventilator 45.00 05/12/20 07:06 46 26 97 45 05/12/20 07:00 36.1 43 26 96 Mechanical Ventilator 45.00 05/12/20 06:39 45 05/12/20 06:00 36.1 48 26 96 Mechanical Ventilator 45.00 05/12/20 05:00 36.1 46 26 96 Mechanical Ventilator 45.00 I & O 05/13/20 07:00 Intake Total 2375 ml Output Total 1575 ml Balance 800 ml Height & Weight Height: 5'11.00" Weight: 191lbs. 0.0oz. 86.677025eh; 34.11 BMI Method:Stated General Appearance: Anxious, Chronically ill HEENT: PERRL/EOMI, Pharynx Normal, Other (Mucous membranes dry) Neck: Limited Range of Motion Respiratory: Accessory Muscle Use, Decreased Breath Sounds, Rhonci (anterior and posterior bilateral lungs) Cardiovascular: Regular Rate, Rhythm Capillary Refill: Less Than 3 Seconds Extremity: No Pedal Edema (Tight) Neurologic/Psychiatric: Alert, Oriented x3, Depressed Affect Results Lab Laboratory Tests 05/12/20 03:40 05/13/20 02:30 Assessment/Plan Assessment/Plan Acute respiratory failure Pt intubated on 05/09 -EICU managed through the weekend -Vent 450// and 45% -Decrease PEEP to 10 -Propofol at 20 and Fentanyl at 120 PRN Ativan -proning pt -Give 40mg of Lasix COVID 19 with pneumonia -Zosyn -Repeat PCT -Dx 05/06- symptoms x 7 days -Decadron -s/p CVP -Does not qualify for Remdesivir -BiPAP PRN ARF -Decrease LR to 30 Secondary bacterial PNA - Zosyn 05/08 ROEL -MONTIOR Anxiety -Ativan PRN 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
[2020-05-13] MEDS: fentaNYL DRIP PRE-MIX 250 ML IV SCH ×3 (05:43→22:17)
[2020-05-13 06:36] VITALS: BP 147/57
--- NOTE | 2020-05-13 07:47 | Diagnostic Imaging Report ---
INDICATION: Shortness of breath Portable chest 3:15 AM There is an ET tube projected over the trachea. NG tube enters the stomach. Right upper extremity PICC line tip projects over the SVC. There are diffuse alveolar infiltrates in the lungs. IMPRESSION: Severe diffuse alveolar infiltrates. No appreciable change compared to the previous day. Dictated by: Dictated on workstation # [id number]
--- NOTE | 2020-05-13 08:04 | Physical Therapy Progress Note ---
Therapy Progress Note Patient is sedated and intubated. PT will continue to monitor patient status. GUY SANTOS PT May 13, 2020 08:04
[2020-05-13] MEDS: ARTIFICIAL TEARS OINT (LACRI-LUBE) 3.5 GM TUBE OU SCH ×2 (08:35→19:55)
[2020-05-13] MEDS: FAMOTIDINE 20 MG (PEPCID) TABLET PO SCH ×2 (08:36→19:55)
[2020-05-13] MEDS: amLODIPine 5 MG (NORVASC) TAB PO SCH (08:36)
[2020-05-13] MEDS: CLOPIDOGREL 75 MG (PLAVIX) TABLET PO SCH (08:36)
[2020-05-13] MEDS: PANTOPRAZOLE 40 MG (PROTONIX) VIAL IV SCH (08:36)
[2020-05-13] MEDS ORDERED: meTOproloL SUCCINATE 50 MG (TOPROL XL) TAB PO SCH (09:00)
[2020-05-13] MEDS: ENOXAPARIN 300 MG/3 ML (LOVENOX) MULTI-DOSE VIAL SQ SCH ×2 (09:01→19:55)
[2020-05-13 10:45] VITALS: BP 138/62
--- NOTE | 2020-05-13 11:18 | NUR ---
SPOKE WITH PT MARIVEL AT THIS TIME. UPDATED ON PATIENT CONDITION. ANSWERED QUESTIONS, THANKED THIS NURSE FOR CALL.
--- NOTE | 2020-05-13 13:55 | NUR ---
Note pt currently receiving Pulmocare via 60ml bolus feeds q4h with 30ml free water flushes before/after each bolus. Increase TF by 30ml q8h as tolerated toward goal of 180ml bolus feeds q4h. Will continue to follow and reassess as pt needs, intake, and status change. Marilu Holland, MS RD LD [phone] cell
[2020-05-13] MEDS: dexAMETHasone 6 MG TAB (DECADRON) PO SCH (14:00)
[2020-05-13 14:16] VITALS: BP 138/54
[2020-05-13 19:01] VITALS: BP 137/54
[2020-05-13] MEDS: meTOprolol TARTRATE 25 MG (LOPRESSOR) TABLET GT SCH (19:48)
[2020-05-13 23:08] VITALS: BP 165/78
[2020-05-14] MEDS: PROPOFOL DRIP (ICU) 100 ML IV SCH ×8 (00:24→23:52)
[2020-05-14] MEDS: RT-ALBUTEROL INHALER HFA (VENTOLIN HFA) 18 GM IH SCH ×6 (02:20→21:42)
[2020-05-14 03:53] LABS: BASOPHILS % (AUTO) 0 % (0-10); EOSINOPHILS # (AUTO) 0.1 10^3/uL (0.0-0.3); EOSINOPHILS % (AUTO) 1 % (0-10); HEMATOCRIT 33 % (40-54); HEMOGLOBIN 10.3 g/dL (13.3-17.7); LYMPHOCYTES # (AUTO) 0.7 10^3/uL (1.0-4.0); LYMPHOCYTES % (AUTO) 9 % (12-44); MEAN CORPUSCULAR HEMOGLOBIN 30 pg (25-34); MEAN CORPUSCULAR HGB CONC 31 g/dL (32-36); MEAN CORPUSCULAR VOLUME 97 fL (80-99); MEAN PLATELET VOLUME 11.6 fL (9.0-12.2); MONOCYTES # (AUTO) 0.7 10^3/uL (0.0-1.0); MONOCYTES % (AUTO) 8 % (0-12); NEUTROPHILS # (AUTO) 6.6 10^3/uL (1.8-7.8); NEUTROPHILS % (AUTO) 79 % (42-75); PLATELET COUNT 225 10^3/uL (130-400); WHITE BLOOD COUNT 8.3 10^3/uL (4.3-11.0)
[2020-05-14] MEDS: PIPERACILLIN/TAZOBACTAM (BULK) 4.5 GM in NS (IVPB) 100 ML IV SCH ×3 (03:59→19:29)
[2020-05-14 04:02] LABS: CHLORIDE 110 MMOL/L (98-107); POTASSIUM 4.1 MMOL/L (3.6-5.0); SODIUM 143 MMOL/L (135-145)
[2020-05-14 04:03] LABS: CALCIUM 8.2 MG/DL (8.5-10.1)
[2020-05-14 04:04] LABS: GLUCOSE 89 MG/DL (70-105)
[2020-05-14 04:05] LABS: CARBON DIOXIDE 24 MMOL/L (21-32)
[2020-05-14] MEDS: KCL 20 MEQ TAB (K-DUR) PO SCH (04:06)
[2020-05-14] MEDS: POTASSIUM CL 10MEQ/50ML IVPB 50 ML IV SCH (04:06)
[2020-05-14] MEDS: inSUlin ASPART (NovoLOG) 1 UNIT/0.01 ML (CHARGE PER UNIT) SC SCH ×4 (04:06→23:29)
[2020-05-14 04:08] LABS: GFR ESTIMATED > 60; PHOSPHORUS 3.3 MG/DL (2.3-4.7)
[2020-05-14 04:09] LABS: BUN/CREATININE RATIO 34
[2020-05-14 04:10] LABS: MAGNESIUM 2.4 MG/DL (1.6-2.4)
[2020-05-14] MEDS: MAGNESIUM 1 GM/100 ML IVPB 100 ML IV SCH (04:22)
[2020-05-14] MEDS: fentaNYL DRIP PRE-MIX 250 ML IV SCH ×4 (04:49→23:52)
--- NOTE | 2020-05-14 05:49 | Pulmonary Progress Note ---
Subjective Time Seen by a Provider: 05:46 Subjective/Events-last exam Pt is sedated on vent. Sepsis Event Evaluation Height, Weight, BMI Height: 5'11.00" Weight: 191lbs. 0.0oz. 86.933040up; 34.11 BMI Method:Stated Exam Exam Vital Signs Date Time Temp Pulse Resp B/P (MAP) Pulse Ox O2 Delivery O2 Flow Rate FiO2 05/14/20 04:50 66 154/58 05/14/20 03:33 Mechanical Ventilator 35.00 05/14/20 03:00 36.2 47 25 98 Mechanical Ventilator 40.00 05/14/20 02:20 67 26 94 32 05/14/20 02:00 36.4 61 26 94 Mechanical Ventilator 40.00 05/14/20 01:00 50 05/14/20 01:00 36.5 50 25 99 Mechanical Ventilator 40.00 05/14/20 00:25 Mechanical Ventilator 40.00 05/14/20 00:24 62 162/66 05/14/20 00:00 36.4 63 26 97 Mechanical Ventilator 30.00 05/13/20 23:25 36.2 Mechanical Ventilator 30.00 05/13/20 23:08 60 26 98 32 05/13/20 23:00 36.1 53 26 97 Mechanical Ventilator 32.00 05/13/20 22:00 36.0 50 25 97 Mechanical Ventilator 32.00 05/13/20 21:26 48 130/52 05/13/20 21:00 36.1 51 25 95 Mechanical Ventilator 32.00 05/13/20 20:00 94 Mechanical Ventilator 32 05/13/20 20:00 36.2 54 26 95 Mechanical Ventilator 32.00 05/13/20 19:30 Mechanical Ventilator 32.00 05/13/20 19:01 61 26 100 35 05/13/20 19:00 36.2 64 25 97 Mechanical Ventilator 35.00 05/13/20 19:00 64 05/13/20 19:00 26 Mechanical Ventilator 35.00 05/13/20 18:00 36.2 52 25 96 Mechanical Ventilator 40.00 05/13/20 17:49 129/54 05/13/20 17:00 36.3 53 26 97 Mechanical Ventilator 40.00 05/13/20 16:00 36.4 56 25 97 Mechanical Ventilator 40.00 05/13/20 15:00 36.4 61 25 98 Mechanical Ventilator 40.00 05/13/20 14:16 67 28 100 40 05/13/20 14:10 71 154/61 05/13/20 14:00 36.4 68 26 98 Mechanical Ventilator 40.00 05/13/20 13:00 64 05/13/20 13:00 36.5 64 25 99 Mechanical Ventilator 40.00 05/13/20 12:00 36.5 70 26 97 Mechanical Ventilator 40.00 05/13/20 11:00 36.6 76 26 93 Mechanical Ventilator 40.00 05/13/20 10:51 72 139/61 05/13/20 10:45 72 26 95 40 05/13/20 10:00 36.8 66 26 97 Mechanical Ventilator 40.00 05/13/20 09:00 37.1 85 23 93 Mechanical Ventilator 40.00 05/13/20 09:00 92 Mechanical Ventilator 40 05/13/20 08:00 37.1 85 26 94 Mechanical Ventilator 40.00 05/13/20 07:27 91 174/76 05/13/20 07:00 37.1 74 26 97 Mechanical Ventilator 40.00 05/13/20 06:41 78 05/13/20 06:36 80 26 95 35 05/13/20 06:00 37.2 82 31 94 Mechanical Ventilator 40.00 I & O 05/14/20 07:00 Intake Total 1890 ml Output Total 2390 ml Balance -500 ml Height & Weight Height: 5'11.00" Weight: 191lbs. 0.0oz. 86.906950ym; 34.11 BMI Method:Stated General Appearance: Anxious, Chronically ill HEENT: PERRL/EOMI, Pharynx Normal, Other (Mucous membranes dry) Neck: Limited Range of Motion Respiratory: Accessory Muscle Use, Decreased Breath Sounds, Rhonci (anterior and posterior bilateral lungs) Cardiovascular: Regular Rate, Rhythm Capillary Refill: Less Than 3 Seconds Extremity: No Pedal Edema (Tight) Neurologic/Psychiatric: Alert, Oriented x3, Depressed Affect Results Lab Laboratory Tests 05/13/20 02:30 05/14/20 03:30 Assessment/Plan Assessment/Plan Acute respiratory failure Pt intubated on 05/09 -EICU managed through the weekend -Vent 450/26/10 and 35% -Decrease PEEP to 8 -Propofol at 40 and Fentanyl at 175 PRN Ativan -proning pt COVID 19 with pneumonia -Zosyn -Repeat PCT -Dx 05/06- symptoms x 7 days -Decadron -s/p CVP -Does not qualify for Remdesivir -BiPAP PRN ARF -Decrease LR to 30 Secondary bacterial PNA - Zosyn 05/08 ROEL -MONTIOR Anxiety -Ativan PRN 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
[2020-05-14 06:14] LABS: FIBRIN DEGRADATION PRODUCTS 0.48 UG/ML (0.00-0.49); INR 1.1 (0.8-1.4); PROTHROMBIN TIME PATIENT 14.7 SEC (12.2-14.7)
--- NOTE | 2020-05-14 07:12 | Diagnostic Imaging Report ---
INDICATION: COVID pneumonia. Comparison with 05/13/2020. FINDINGS: ET tube, NG tube and right PICC line remain in good position. Dense 5 lobe alveolar infiltrates remain present. Heart remains enlarged. IMPRESSION: No appreciable change with dense 5 lobe pneumonia. Tubes and lines in good position. Dictated by: Dictated on workstation # [id number]
[2020-05-14 07:42] VITALS: BP 133/47
--- NOTE | 2020-05-14 08:13 | Physical Therapy Progress Note ---
Therapy Progress Note Patient is sedated and intubated. PT will continue to monitor patient status. STACY LOPEZ PT May 14, 2020 08:13
[2020-05-14] MEDS: LACTATED RINGERS 1,000 ML IV SCH (08:17)
[2020-05-14] MEDS: CLOPIDOGREL 75 MG (PLAVIX) TABLET PO SCH (08:18)
[2020-05-14] MEDS: PANTOPRAZOLE 40 MG (PROTONIX) VIAL IV SCH (08:18)
[2020-05-14] MEDS: amLODIPine 5 MG (NORVASC) TAB PO SCH (08:18)
[2020-05-14] MEDS: FAMOTIDINE 20 MG (PEPCID) TABLET PO SCH (08:18)
[2020-05-14] MEDS: ENOXAPARIN 300 MG/3 ML (LOVENOX) MULTI-DOSE VIAL SQ SCH (08:18)
[2020-05-14] MEDS: meTOprolol TARTRATE 25 MG (LOPRESSOR) TABLET GT SCH ×2 (08:18→19:29)
[2020-05-14] MEDS: ARTIFICIAL TEARS OINT (LACRI-LUBE) 3.5 GM TUBE OU SCH ×2 (08:19→19:29)
[2020-05-14 09:05] VITALS: BP 133/47
[2020-05-14 09:41] LABS: ABG BASE EXCESS -0.2 MMOL/L (-2.5-2.5); ABG OXYGEN SATURATION 90 % (94-100); ABG PCO2 50 MMHG (35-45); ABG PO2 59 MMHG (79-93); ABG TCO2 26.6 MMOL/L (21.0-31.0)
[2020-05-14 09:44] LABS: ALLENS TEST ART LINE; INSPIRED O2 100%; PATIENT TEMP 36.9; VENTILATOR NO
[2020-05-14 09:46] LABS: ABG PH 7.32 (7.37-7.43)
[2020-05-14] MEDS: DexMEDEtomidine PRE MIX 100 ML IV SCH (10:38)
[2020-05-14] MEDS: dexAMETHasone 6 MG TAB (DECADRON) PO SCH (11:23)
[2020-05-14 11:28] VITALS: BP 148/56
--- NOTE | 2020-05-14 14:21 | NUR ---
THIS RN CALLED PT'S AND PROVIDED UPDATE.
--- NOTE | 2020-05-14 15:10 | NUR ---
Note pt currently receiving Pulmocare via 120ml bolus feeds q4h with 30ml free water flushes before/after each bolus. Increase TF by 30ml q8h as tolerated toward goal of 180ml bolus feeds q4h. Will continue to follow and reassess as pt needs, intake, and status change. Marilu Holland, MS RD LD [phone] cell
[2020-05-14 15:17] VITALS: BP 137/56
[2020-05-14 18:27] VITALS: BP 136/58
[2020-05-14 21:42] VITALS: BP 127/55
[2020-05-15 01:43] VITALS: BP 130/53
[2020-05-15] MEDS: RT-ALBUTEROL INHALER HFA (VENTOLIN HFA) 18 GM IH SCH ×5 (01:43→22:47)
[2020-05-15 02:38] LABS: BASOPHILS % (AUTO) 0 % (0-10); EOSINOPHILS # (AUTO) 0.1 10^3/uL (0.0-0.3); EOSINOPHILS % (AUTO) 2 % (0-10); HEMATOCRIT 31 % (40-54); HEMOGLOBIN 9.8 g/dL (13.3-17.7); LYMPHOCYTES # (AUTO) 1.1 10^3/uL (1.0-4.0); LYMPHOCYTES % (AUTO) 15 % (12-44); MEAN CORPUSCULAR HEMOGLOBIN 31 pg (25-34); MEAN CORPUSCULAR HGB CONC 31 g/dL (32-36); MEAN CORPUSCULAR VOLUME 98 fL (80-99); MEAN PLATELET VOLUME 11.6 fL (9.0-12.2); MONOCYTES # (AUTO) 0.7 10^3/uL (0.0-1.0); MONOCYTES % (AUTO) 10 % (0-12); NEUTROPHILS # (AUTO) 5.3 10^3/uL (1.8-7.8); NEUTROPHILS % (AUTO) 71 % (42-75); PLATELET COUNT 205 10^3/uL (130-400); WHITE BLOOD COUNT 7.5 10^3/uL (4.3-11.0)
[2020-05-15 02:46] LABS: ABG BASE EXCESS 0.9 MMOL/L (-2.5-2.5); ABG OXYGEN SATURATION 97 % (94-100); ABG PCO2 47 MMHG (35-45); ABG PH 7.36 (7.37-7.43); ABG PO2 92 MMHG (79-93); ABG TCO2 27.3 MMOL/L (21.0-31.0); ALLENS TEST YES-POS; INSPIRED O2 40%; PATIENT TEMP 36.5; VENTILATOR YES
[2020-05-15] MEDS: DexMEDEtomidine PRE MIX 100 ML IV SCH ×3 (02:48→22:06)
[2020-05-15 02:54] LABS: CHLORIDE 113 MMOL/L (98-107); POTASSIUM 4.3 MMOL/L (3.6-5.0); SODIUM 145 MMOL/L (135-145)
[2020-05-15 02:56] LABS: CALCIUM 8.3 MG/DL (8.5-10.1); GLUCOSE 83 MG/DL (70-105)
[2020-05-15 02:57] LABS: TRIGLYCERIDES 286 MG/DL (<150)
[2020-05-15 02:58] LABS: CARBON DIOXIDE 25 MMOL/L (21-32)
[2020-05-15 03:00] LABS: CREATININE SERUM 0.98 MG/DL (0.60-1.30); GFR ESTIMATED > 60
[2020-05-15 03:01] LABS: BUN/CREATININE RATIO 31
[2020-05-15 03:03] LABS: MAGNESIUM 2.3 MG/DL (1.6-2.4)
[2020-05-15] MEDS: PROPOFOL DRIP (ICU) 100 ML IV SCH ×5 (03:18→22:06)
[2020-05-15] MEDS: PIPERACILLIN/TAZOBACTAM (BULK) 4.5 GM in NS (IVPB) 100 ML IV SCH (03:18)
[2020-05-15] MEDS: POTASSIUM CL 10MEQ/50ML IVPB 50 ML IV SCH (03:18)
[2020-05-15] MEDS: KCL 20 MEQ TAB (K-DUR) PO SCH (03:19)
[2020-05-15] MEDS: MAGNESIUM 1 GM/100 ML IVPB 100 ML IV SCH (03:19)
[2020-05-15] MEDS: inSUlin ASPART (NovoLOG) 1 UNIT/0.01 ML (CHARGE PER UNIT) SC SCH ×4 (03:19→23:24)
--- NOTE | 2020-05-15 05:08 | Pulmonary Progress Note ---
Subjective Time Seen by a Provider: 05:05 Subjective/Events-last exam Pt is sedated on vent. Sepsis Event Evaluation Height, Weight, BMI Height: 5'11.00" Weight: 191lbs. 0.0oz. 86.447412uu; 34.11 BMI Method:Stated Exam Exam Vital Signs Date Time Temp Pulse Resp B/P (MAP) Pulse Ox O2 Delivery O2 Flow Rate FiO2 05/15/20 04:00 36.4 47 26 96 Mechanical Ventilator 40.00 05/15/20 03:18 47 128/50 05/15/20 03:00 36.4 48 26 96 Mechanical Ventilator 40.00 05/15/20 02:00 36.5 56 25 95 Mechanical Ventilator 40.00 05/15/20 01:43 46 26 94 35 05/15/20 01:00 36.4 49 25 95 Mechanical Ventilator 40.00 05/15/20 01:00 60 05/15/20 00:00 36.4 49 25 95 Mechanical Ventilator 40.00 05/14/20 23:52 51 118/50 05/14/20 23:00 36.5 51 25 95 Mechanical Ventilator 40.00 05/14/20 22:00 36.7 60 25 95 Mechanical Ventilator 40.00 05/14/20 21:42 53 26 94 35 05/14/20 21:00 36.7 Mechanical Ventilator 40.00 05/14/20 21:00 36.7 58 25 95 Mechanical Ventilator 40.00 05/14/20 20:58 58 117/51 05/14/20 20:00 93 Mechanical Ventilator 35 05/14/20 20:00 36.8 64 25 91 Mechanical Ventilator 35.00 05/14/20 19:00 36.8 26 Mechanical Ventilator 35.00 05/14/20 19:00 64 05/14/20 19:00 36.8 64 25 91 Mechanical Ventilator 35.00 05/14/20 18:27 59 26 94 35 05/14/20 18:00 36.9 63 25 90 Mechanical Ventilator 35.00 05/14/20 17:29 68 117/55 05/14/20 17:00 37.1 74 23 92 Mechanical Ventilator 35.00 05/14/20 16:00 37.0 79 90 92 Mechanical Ventilator 35.00 05/14/20 15:17 79 26 92 35 05/14/20 15:00 36.9 79 22 92 Mechanical Ventilator 35.00 05/14/20 14:47 79 132/53 05/14/20 14:00 36.8 63 25 92 Mechanical Ventilator 35.00 05/14/20 13:00 36.9 65 26 93 Mechanical Ventilator 35.00 05/14/20 12:30 75 05/14/20 12:00 36.0 75 25 93 Mechanical Ventilator 35.00 05/14/20 11:28 77 31 96 35 05/14/20 11:26 73 145/56 05/14/20 11:00 36.7 62 25 97 Mechanical Ventilator 35.00 05/14/20 10:00 36.9 61 25 97 Mechanical Ventilator 35.00 05/14/20 09:05 36.4 64 95 35 05/14/20 09:00 36.9 75 26 94 Mechanical Ventilator 35.00 05/14/20 09:00 93 Mechanical Ventilator 35 05/14/20 08:17 81 188/63 05/14/20 08:00 36.7 75 25 92 Mechanical Ventilator 35.00 05/14/20 07:42 64 26 95 35 05/14/20 07:00 36.6 66 25 92 Mechanical Ventilator 35.00 05/14/20 06:38 64 05/14/20 06:00 36.4 69 19 91 Mechanical Ventilator 35.00 I & O 05/15/20 07:00 Intake Total 2430 ml Output Total 1230 ml Balance 1200 ml Height & Weight Height: 5'11.00" Weight: 191lbs. 0.0oz. 86.496184gi; 34.11 BMI Method:Stated General Appearance: Anxious, Chronically ill HEENT: PERRL/EOMI, Pharynx Normal, Other (Mucous membranes dry) Neck: Limited Range of Motion Respiratory: Accessory Muscle Use, Decreased Breath Sounds, Rhonci (anterior and posterior bilateral lungs) Cardiovascular: Regular Rate, Rhythm Capillary Refill: Less Than 3 Seconds Extremity: No Pedal Edema (Tight) Neurologic/Psychiatric: Alert, Oriented x3, Depressed Affect Results Lab Laboratory Tests 05/14/20 03:30 05/15/20 02:20 Assessment/Plan Assessment/Plan Acute respiratory failure Pt intubated on 05/09 -Vent 450/26/8 and 40% -Propofol at 40 and Fentanyl at 175 PRN Ativan -Continue TF COVID 19 with pneumonia -Zosyn -MRSA swab is positive. 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 TANMAY MAI DO May 15, 2020 05:08
[2020-05-15] MEDS: fentaNYL DRIP PRE-MIX 250 ML IV SCH ×2 (06:35→19:50)
--- NOTE | 2020-05-15 07:58 | Diagnostic Imaging Report ---
INDICATION: Covid pneumonia. Comparison made with prior examination from 05/14/2020. FINDINGS: There is cardiomegaly. There is some venous congestion. There is no pleural effusion or pneumothorax. Lines and tubes are in satisfactory position. IMPRESSION: Bilateral pulmonary infiltrates. Cardiomegaly and some central pulmonary venous congestion. Dictated by: Dictated on workstation # [id number]
--- NOTE | 2020-05-15 08:12 | Physical Therapy Progress Note ---
Therapy Progress Note Patient is sedated and intubated. PT will continue to monitor patient status. GUY SANTOS PT May 15, 2020 08:12
[2020-05-15] MEDS: PANTOPRAZOLE 40 MG (PROTONIX) VIAL IV SCH (08:48)
[2020-05-15] MEDS: ARTIFICIAL TEARS OINT (LACRI-LUBE) 3.5 GM TUBE OU SCH ×2 (08:48→20:03)
[2020-05-15] MEDS: amLODIPine 10 MG (NORVASC) TAB PO SCH (08:49)
[2020-05-15] MEDS: CLOPIDOGREL 75 MG (PLAVIX) TABLET PO SCH (08:49)
[2020-05-15] MEDS: meTOprolol TARTRATE 25 MG (LOPRESSOR) TABLET GT SCH ×2 (08:50→20:03)
[2020-05-15] MEDS: ENOXAPARIN 40 MG/0.4 ML (LOVENOX) SYR SC SCH (08:54)
[2020-05-15] MEDS: hydrALAZINE (APESOLINE) 20 MG/ML VIAL IV PRN (10:56)
[2020-05-15 11:39] VITALS: BP 159/65
[2020-05-15] MEDS: dexAMETHasone 6 MG TAB (DECADRON) PO SCH (12:01)
--- NOTE | 2020-05-15 12:28 | NUR ---
CM/SS following with patient for discharge planning. CM/SS received notification that Dr. Pittman reached out to Fannie from [facility] and requested a referral to be sent. CM/SS faxed referral to [facility]. Awaiting acceptance/denial and plan of care from physician.
--- NOTE | 2020-05-15 13:56 | Physical Therapy Progress Note ---
Therapy Progress Note Non skilled PROM in available planes B U/LE. GEOVANI BRIGHT PT May 15, 2020 13:56
--- NOTE | 2020-05-15 14:55 | NUR ---
Note pt currently receiving TF of Pulmocare via 130ml bolus feeds q4h with 30ml free water flushes before/after each bolus. Continue to increase TF by 30ml q8h as tolerated toward goal of 180ml bolus feeds q4h. Will continue to follow and reassess as pt needs, intake, and status change. Marilu Holland, MS RD LD [phone] cell
[2020-05-15 15:20] VITALS: BP 153/57
[2020-05-15 18:58] VITALS: BP 135/58
[2020-05-15] MEDS: LACTATED RINGERS 1,000 ML IV SCH (19:50)
[2020-05-15 22:47] VITALS: BP 139/58
[2020-05-16 01:21] VITALS: BP 161/64
[2020-05-16] MEDS: RT-ALBUTEROL INHALER HFA (VENTOLIN HFA) 18 GM IH SCH ×6 (01:21→23:12)
[2020-05-16] MEDS: fentaNYL DRIP PRE-MIX 250 ML IV SCH ×4 (01:50→21:56)
[2020-05-16] MEDS: KCL 20 MEQ TAB (K-DUR) PO SCH (02:14)
[2020-05-16] MEDS: POTASSIUM CL 10MEQ/50ML IVPB 50 ML IV SCH (02:14)
[2020-05-16] MEDS: MAGNESIUM 1 GM/100 ML IVPB 100 ML IV SCH (02:14)
[2020-05-16] MEDS: PROPOFOL DRIP (ICU) 100 ML IV SCH ×5 (02:35→22:11)
[2020-05-16 02:50] LABS: ABG OXYGEN SATURATION 95 % (94-100); ABG PCO2 45 MMHG (35-45); ABG PO2 72 MMHG (79-93); ABG TCO2 25.8 MMOL/L (21.0-31.0)
[2020-05-16 02:52] LABS: BASOPHILS % (AUTO) 0 % (0-10); EOSINOPHILS # (AUTO) 0.1 10^3/uL (0.0-0.3); EOSINOPHILS % (AUTO) 2 % (0-10); HEMATOCRIT 33 % (40-54); HEMOGLOBIN 10.3 g/dL (13.3-17.7); LYMPHOCYTES % (AUTO) 13 % (12-44); MEAN CORPUSCULAR HEMOGLOBIN 31 pg (25-34); MEAN CORPUSCULAR HGB CONC 31 g/dL (32-36); MEAN CORPUSCULAR VOLUME 99 fL (80-99); MEAN PLATELET VOLUME 11.8 fL (9.0-12.2); MONOCYTES # (AUTO) 0.6 10^3/uL (0.0-1.0); MONOCYTES % (AUTO) 8 % (0-12); NEUTROPHILS % (AUTO) 75 % (42-75); PLATELET COUNT 201 10^3/uL (130-400)
[2020-05-16 02:52] LABS: ABG PH 7.34 (7.37-7.43); ALLENS TEST YES-POS; INSPIRED O2 45%; PATIENT TEMP 35.4; VENTILATOR YES
[2020-05-16 03:06] LABS: CHLORIDE 112 MMOL/L (98-107); POTASSIUM 4.4 MMOL/L (3.6-5.0); SODIUM 143 MMOL/L (135-145)
[2020-05-16 03:07] LABS: CALCIUM 8.8 MG/DL (8.5-10.1); GLUCOSE 106 MG/DL (70-105)
[2020-05-16 03:09] LABS: CARBON DIOXIDE 22 MMOL/L (21-32)
[2020-05-16 03:11] LABS: CREATININE SERUM 0.84 MG/DL (0.60-1.30); GFR ESTIMATED > 60; PHOSPHORUS 3.8 MG/DL (2.3-4.7)
[2020-05-16 03:12] LABS: BUN/CREATININE RATIO 30
[2020-05-16 03:13] LABS: MAGNESIUM 2.1 MG/DL (1.6-2.4)
[2020-05-16] MEDS: inSUlin ASPART (NovoLOG) 1 UNIT/0.01 ML (CHARGE PER UNIT) SC SCH ×3 (03:39→18:19)
--- NOTE | 2020-05-16 04:35 | Pulmonary Progress Note ---
Subjective Time Seen by a Provider: 04:32 Subjective/Events-last exam No complications noted. Sepsis Event Evaluation Height, Weight, BMI Height: 5'11.00" Weight: 191lbs. 0.0oz. 86.531592hd; 34.11 BMI Method:Stated Exam Exam Vital Signs Date Time Temp Pulse Resp B/P (MAP) Pulse Ox O2 Delivery O2 Flow Rate FiO2 05/16/20 02:35 48 161/64 05/16/20 02:13 Mechanical Ventilator 45.00 05/16/20 02:03 Mechanical Ventilator 45.00 05/16/20 01:21 48 26 94 40 05/16/20 01:00 51 05/15/20 23:00 35.6 55 25 92 Mechanical Ventilator 40.00 05/15/20 22:47 55 26 92 40 05/15/20 22:06 36.4 58 26 135/58 90 Mechanical Ventilator 40.00 05/15/20 22:06 58 135/58 05/15/20 22:00 35.8 55 26 92 Mechanical Ventilator 40.00 05/15/20 21:00 90 Mechanical Ventilator 40 05/15/20 21:00 36.0 56 26 91 Mechanical Ventilator 40.00 05/15/20 20:00 36.0 58 26 91 Mechanical Ventilator 40.00 05/15/20 19:51 58 135/58 05/15/20 19:00 36.1 59 26 90 Mechanical Ventilator 40.00 05/15/20 19:00 60 05/15/20 18:58 58 26 91 40 05/15/20 18:00 36.4 55 26 90 Mechanical Ventilator 40.00 05/15/20 17:00 36.5 55 26 94 Mechanical Ventilator 40.00 05/15/20 16:00 36.9 73 23 96 Mechanical Ventilator 40.00 05/15/20 15:20 76 28 96 40 05/15/20 15:11 36.9 77 23 162/60 97 Mechanical Ventilator 40.00 05/15/20 15:00 36.9 74 25 95 Mechanical Ventilator 40.00 05/15/20 14:00 36.7 82 23 97 Mechanical Ventilator 40.00 05/15/20 13:00 36.6 61 25 97 Mechanical Ventilator 40.00 05/15/20 12:33 68 05/15/20 12:00 36.5 68 23 97 Mechanical Ventilator 40.00 05/15/20 11:39 68 26 97 40 05/15/20 11:00 36.6 77 25 93 Mechanical Ventilator 40.00 05/15/20 10:00 36.3 86 25 91 Mechanical Ventilator 40.00 05/15/20 10:00 85 183/70 05/15/20 09:00 36.2 51 26 94 Mechanical Ventilator 40.00 05/15/20 08:45 93 Mechanical Ventilator 40 05/15/20 08:00 36.2 44 26 96 Mechanical Ventilator 40.00 05/15/20 07:00 36.3 49 26 97 Mechanical Ventilator 40.00 05/15/20 06:36 49 134/51 05/15/20 06:26 52 05/15/20 06:00 36.3 49 25 96 Mechanical Ventilator 40.00 05/15/20 05:00 36.3 46 25 96 Mechanical Ventilator 40.00 I & O 05/16/20 07:00 Intake Total 1050 ml Output Total 1250 ml Balance -200 ml Height & Weight Height: 5'11.00" Weight: 191lbs. 0.0oz. 86.564218li; 34.11 BMI Method:Stated General Appearance: Anxious, Chronically ill HEENT: PERRL/EOMI, Pharynx Normal, Other (Mucous membranes dry) Neck: Limited Range of Motion Respiratory: Accessory Muscle Use, Decreased Breath Sounds, Rhonci (anterior and posterior bilateral lungs) Cardiovascular: Regular Rate, Rhythm Capillary Refill: Less Than 3 Seconds Extremity: No Pedal Edema (Tight) Neurologic/Psychiatric: Alert, Oriented x3, Depressed Affect Results Lab Laboratory Tests 05/15/20 02:20 05/16/20 02:00 Assessment/Plan Assessment/Plan Acute respiratory failure Pt intubated on 05/09 -Vent 450/26/5 and 45% -Possible [place] transfer today -Propofol at 40 and Fentanyl at 200, Precedex at 0.5 PRN Ativan -Continue TF -LR at 30 COVID 19 with pneumonia -Zosyn -MRSA swab is positive. 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 TANMAY MAI DO May 16, 2020 04:35
[2020-05-16] MEDS: DexMEDEtomidine PRE MIX 100 ML IV SCH ×3 (04:59→21:57)
[2020-05-16 06:41] VITALS: BP 138/54
--- NOTE | 2020-05-16 07:17 | Diagnostic Imaging Report ---
INDICATION: Dyspnea. TIME OF EXAM: 1:39 AM Correlation is made with prior chest one day earlier. FINDINGS: ET tube has tip above the jorge alberto. NG tube passes below the diaphragm. Bilateral infiltrates persist. No significant effusion or pneumothorax is seen. IMPRESSION: No significant change in bilateral infiltrates since exam one day earlier. Dictated by: Dictated on workstation # [id number]
--- NOTE | 2020-05-16 07:51 | Physical Therapy Progress Note ---
Therapy Progress Note Patient is sedated and intubated. PT will continue to monitor patient status. GUY SANTOS PT May 16, 2020 07:51
[2020-05-16] MEDS: ARTIFICIAL TEARS OINT (LACRI-LUBE) 3.5 GM TUBE OU SCH ×2 (08:36→20:04)
[2020-05-16] MEDS: CLOPIDOGREL 75 MG (PLAVIX) TABLET PO SCH (08:36)
[2020-05-16] MEDS: PANTOPRAZOLE 40 MG (PROTONIX) VIAL IV SCH (08:36)
[2020-05-16] MEDS: ENOXAPARIN 40 MG/0.4 ML (LOVENOX) SYR SC SCH (08:37)
[2020-05-16] MEDS: amLODIPine 10 MG (NORVASC) TAB PO SCH (08:37)
[2020-05-16] MEDS: meTOprolol TARTRATE 25 MG (LOPRESSOR) TABLET GT SCH ×3 (08:53→21:43)
[2020-05-16 10:32] VITALS: BP 137/42
--- NOTE | 2020-05-16 11:28 | Physical Therapy Progress Note ---
Therapy Progress Note Non skilled PROM B U/LE in available planes. GEOVANI BRIGHT PT May 16, 2020 11:28
[2020-05-16] MEDS: dexAMETHasone 6 MG TAB (DECADRON) PO SCH (11:49)
--- NOTE | 2020-05-16 12:49 | NUR ---
SPOKE TO MIRANDA AND UPDATE GIVEN.
--- NOTE | 2020-05-16 14:39 | NUR ---
SPOKE TO LEXUS FROM [facility] AT THIS TIME PT TO POSSIBLY BE ABLE TO BE ADMITTED ON TUESDAY.
[2020-05-16 15:04] VITALS: BP 155/60
--- NOTE | 2020-05-16 15:40 | NUR ---
Note pt currently receiving TF of Pulmocare via 160ml bolus feeds q4h with 30ml free water flushes before/after each bolus. Continue to increase TF by 30ml q8h as tolerated toward goal of 180ml bolus feeds q4h. Will continue to follow and reassess as pt needs, intake, and status change. Marilu Holland, MS RD LD [phone] cell
[2020-05-16 18:55] VITALS: BP 143/55
[2020-05-16] MEDS: MICONAZOLE 2% POWDER (DESENEX AF) 90 GM TOP SCH ×2 (20:03→20:04)
[2020-05-16] MEDS: LACTATED RINGERS 1,000 ML IV SCH (20:04)
[2020-05-16] MEDS: NYSTATIN OINTMENT 30 GM TUBE TOP SCH (20:05)
[2020-05-16] MEDS: LORazepam INJ 2 MG/ML (ATIVAN) VIAL IV PRN (21:47)
[2020-05-16 23:12] VITALS: BP 137/51
[2020-05-17] MEDS: inSUlin ASPART (NovoLOG) 1 UNIT/0.01 ML (CHARGE PER UNIT) SC SCH ×5 (00:15→23:01)
[2020-05-17] MEDS: POTASSIUM CL 10MEQ/50ML IVPB 50 ML IV SCH (02:34)
[2020-05-17] MEDS: MAGNESIUM 1 GM/100 ML IVPB 100 ML IV SCH (02:34)
[2020-05-17] MEDS: KCL 20 MEQ TAB (K-DUR) PO SCH (02:34)
[2020-05-17 02:42] VITALS: BP 183/63
[2020-05-17] MEDS: RT-ALBUTEROL INHALER HFA (VENTOLIN HFA) 18 GM IH SCH ×6 (02:42→22:57)
[2020-05-17] MEDS: LORazepam INJ 2 MG/ML (ATIVAN) VIAL IV PRN ×2 (03:14→14:00)
[2020-05-17] MEDS: fentaNYL DRIP PRE-MIX 250 ML IV SCH ×5 (03:21→23:01)
[2020-05-17 03:33] LABS: ABG BASE EXCESS -0.4 MMOL/L (-2.5-2.5); ABG OXYGEN SATURATION 93 % (94-100); ABG PCO2 48 MMHG (35-45); ABG PO2 74 MMHG (79-93); ABG TCO2 26.3 MMOL/L (21.0-31.0); BASOPHILS % (AUTO) 0 % (0-10); EOSINOPHILS # (AUTO) 0.2 10^3/uL (0.0-0.3); EOSINOPHILS % (AUTO) 2 % (0-10); HEMATOCRIT 33 % (40-54); HEMOGLOBIN 10.1 g/dL (13.3-17.7); LYMPHOCYTES # (AUTO) 1.1 10^3/uL (1.0-4.0); LYMPHOCYTES % (AUTO) 13 % (12-44); MEAN CORPUSCULAR HEMOGLOBIN 31 pg (25-34); MEAN CORPUSCULAR HGB CONC 31 g/dL (32-36); MEAN CORPUSCULAR VOLUME 99 fL (80-99); MEAN PLATELET VOLUME 11.9 fL (9.0-12.2); MONOCYTES # (AUTO) 0.7 10^3/uL (0.0-1.0); MONOCYTES % (AUTO) 9 % (0-12); NEUTROPHILS % (AUTO) 73 % (42-75); PLATELET COUNT 196 10^3/uL (130-400); WHITE BLOOD COUNT 8.3 10^3/uL (4.3-11.0)
[2020-05-17 03:34] LABS: ABG PH 7.33 (7.37-7.43); ALLENS TEST ART LINE; INSPIRED O2 40%; PATIENT TEMP 36.4; VENTILATOR YES
[2020-05-17 03:54] LABS: CHLORIDE 111 MMOL/L (98-107); POTASSIUM 3.9 MMOL/L (3.6-5.0); SODIUM 144 MMOL/L (135-145)
[2020-05-17 03:56] LABS: CALCIUM 8.7 MG/DL (8.5-10.1); GLUCOSE 89 MG/DL (70-105); TRIGLYCERIDES 454 MG/DL (<150)
[2020-05-17 03:58] LABS: CARBON DIOXIDE 22 MMOL/L (21-32)
[2020-05-17 04:00] LABS: CREATININE SERUM 0.76 MG/DL (0.60-1.30); GFR ESTIMATED > 60; PHOSPHORUS 3.1 MG/DL (2.3-4.7)
[2020-05-17 04:01] LABS: BUN/CREATININE RATIO 25
[2020-05-17 04:03] LABS: MAGNESIUM 1.8 MG/DL (1.6-2.4)
[2020-05-17] MEDS: PROPOFOL DRIP (ICU) 100 ML IV SCH ×6 (04:05→19:46)
--- NOTE | 2020-05-17 05:53 | Progress Note - Hospitalist ---
Subjective HPI/CC On Admission Date Seen by Provider: May 17, 2020 Time Seen by Provider: 11:30 Subjective/Events-last exam Remains on the vent No issues RN has no concerns Updated on [place] decision for Tuesday and she is agreeable Objective Exam Vital Signs Vital Signs Date Time Temp Pulse Resp B/P (MAP) Pulse Ox O2 Delivery O2 Flow Rate FiO2 05/18/20 06:00 37.0 58 25 95 Mechanical Ventilator 50.00 05/18/20 02:57 40 Capillary Refill : Less Than 3 Seconds General Appearance: No Apparent Distress, WD/WN, Chronically ill, Other (intubated) Respiratory: Lungs Clear, Normal Breath Sounds Cardiovascular: Regular Rate, Rhythm Results/Procedures Lab Laboratory Tests 05/18/20 01:43 Patient resulted labs reviewed. Imaging: Reviewed Imaging Films, Reviewed Imaging Report Assessment/Plan Assessment and Plan Assess & Plan/Chief Complaint Assessment per Dr Pittman with my modifications: Acute respiratory failure Pt intubated on 05/09 -Vent 450/26/5 and 45% -Possible [place] transfer Tuesday -Propofol at 40 and Fentanyl at 200, Precedex at 0.5 PRN Ativan -Continue TF -LR at 30 COVID 19 with pneumonia -Zosyn -MRSA swab is positive. 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 Plan: [place] candidate Critical Care Critically Ill Patient DUKE ABAD DO May 17, 2020 05:53
[2020-05-17 07:20] VITALS: BP 134/48
--- NOTE | 2020-05-17 07:56 | Diagnostic Imaging Report ---
INDICATION: Dyspnea. Comparison made with prior examination of 05/14/2020. FINDINGS: There is cardiomegaly. There is diffuse bilateral airspace disease. ET and NG tubes are in satisfactory position. No pleural effusion or pneumothorax. IMPRESSION: Diffuse bilateral airspace disease suspect for underlying pneumonia. Additionally component of congestive heart failure certainly cannot be excluded. Recommend clinical correlation. Dictated by: Dictated on workstation # [id number]
[2020-05-17] MEDS: ARTIFICIAL TEARS OINT (LACRI-LUBE) 3.5 GM TUBE OU SCH ×2 (08:09→19:49)
[2020-05-17] MEDS: MICONAZOLE 2% POWDER (DESENEX AF) 90 GM TOP SCH ×2 (08:09→19:49)
[2020-05-17] MEDS: amLODIPine 10 MG (NORVASC) TAB PO SCH (08:10)
[2020-05-17] MEDS: CLOPIDOGREL 75 MG (PLAVIX) TABLET PO SCH (08:10)
[2020-05-17] MEDS: NYSTATIN OINTMENT 30 GM TUBE TOP SCH ×2 (08:10→19:49)
[2020-05-17] MEDS: ENOXAPARIN 40 MG/0.4 ML (LOVENOX) SYR SC SCH (08:10)
[2020-05-17] MEDS: meTOprolol TARTRATE 25 MG (LOPRESSOR) TABLET GT SCH ×3 (08:13→20:43)
[2020-05-17] MEDS: PANTOPRAZOLE 40 MG (PROTONIX) VIAL IV SCH (08:13)
[2020-05-17] MEDS: DexMEDEtomidine PRE MIX 100 ML IV SCH ×3 (08:18→19:46)
--- NOTE | 2020-05-17 08:37 | NUR ---
WILSON CATHETER REPLACED WITH 16FR WILSON CATHETER DUE TO NOTED YELLOW-GREEN PENILE DISCHARGE.
[2020-05-17 10:57] VITALS: BP 137/53
--- NOTE | 2020-05-17 11:12 | Physical Therapy Progress Note ---
Therapy Progress Note Patient is sedated and intubated. PT will continue to monitor patient status. GEOVANNA AMBROSIO DPT May 17, 2020 11:12
[2020-05-17] MEDS: dexAMETHasone 6 MG TAB (DECADRON) PO SCH (11:40)
--- NOTE | 2020-05-17 12:14 | NUR ---
CALLED PT'S , MIRANDA, AND PROVIDED UPDATE. Addendum: 05/17/20 at 1218 by PAYAL JEFFRIES RN PT'S UNAWARE OF PT POTENTIALLY TRANSFERRING TO [facility]. THIS RN CONTACTED DR. ABAD TO CALL PT'S TO SPEAK WITH HER.
[2020-05-17 14:44] VITALS: BP 133/52
[2020-05-17 19:03] VITALS: BP 139/51
[2020-05-17] MEDS: LACTATED RINGERS 1,000 ML IV SCH (19:17)
[2020-05-17 22:57] VITALS: BP 156/56
[2020-05-18] MEDS: DexMEDEtomidine PRE MIX 100 ML IV SCH ×5 (01:19→23:46)
[2020-05-18] MEDS: PROPOFOL DRIP (ICU) 100 ML IV SCH ×8 (01:19→23:46)
[2020-05-18 02:01] LABS: BASOPHILS % (AUTO) 0 % (0-10); EOSINOPHILS # (AUTO) 0.1 10^3/uL (0.0-0.3); EOSINOPHILS % (AUTO) 1 % (0-10); HEMATOCRIT 32 % (40-54); HEMOGLOBIN 10.1 g/dL (13.3-17.7); LYMPHOCYTES # (AUTO) 0.9 10^3/uL (1.0-4.0); LYMPHOCYTES % (AUTO) 8 % (12-44); MEAN CORPUSCULAR HEMOGLOBIN 31 pg (25-34); MEAN CORPUSCULAR HGB CONC 31 g/dL (32-36); MEAN CORPUSCULAR VOLUME 99 fL (80-99); MEAN PLATELET VOLUME 11.8 fL (9.0-12.2); MONOCYTES % (AUTO) 9 % (0-12); NEUTROPHILS # (AUTO) 8.7 10^3/uL (1.8-7.8); NEUTROPHILS % (AUTO) 80 % (42-75); PLATELET COUNT 191 10^3/uL (130-400); WHITE BLOOD COUNT 10.9 10^3/uL (4.3-11.0)
[2020-05-18 02:06] LABS: ABG OXYGEN SATURATION 96 % (94-100); ABG PCO2 48 MMHG (35-45); ABG PO2 88 MMHG (79-93); ABG TCO2 26.5 MMOL/L (21.0-31.0)
[2020-05-18 02:07] LABS: ABG PH 7.35 (7.37-7.43)
[2020-05-18 02:08] LABS: ALLENS TEST ART LINE; INSPIRED O2 50%; PATIENT TEMP 37.2; VENTILATOR YES
[2020-05-18 02:18] LABS: CHLORIDE 108 MMOL/L (98-107); POTASSIUM 4.3 MMOL/L (3.6-5.0); SODIUM 140 MMOL/L (135-145)
[2020-05-18 02:19] LABS: CALCIUM 8.6 MG/DL (8.5-10.1)
[2020-05-18 02:20] LABS: GLUCOSE 108 MG/DL (70-105)
[2020-05-18 02:21] LABS: CARBON DIOXIDE 23 MMOL/L (21-32)
[2020-05-18 02:24] LABS: GFR ESTIMATED > 60
[2020-05-18 02:25] LABS: BUN/CREATININE RATIO 24
[2020-05-18 02:26] LABS: MAGNESIUM 1.8 MG/DL (1.6-2.4)
[2020-05-18] MEDS: MAGNESIUM 1 GM/100 ML IVPB 100 ML IV SCH (02:38)
[2020-05-18] MEDS: POTASSIUM CL 10MEQ/50ML IVPB 50 ML IV SCH (02:38)
[2020-05-18] MEDS: KCL 20 MEQ TAB (K-DUR) PO SCH (02:39)
[2020-05-18 02:57] VITALS: BP 128/48
[2020-05-18] MEDS: RT-ALBUTEROL INHALER HFA (VENTOLIN HFA) 18 GM IH SCH ×6 (02:57→22:25)
[2020-05-18] MEDS: fentaNYL DRIP PRE-MIX 250 ML IV SCH ×4 (05:10→22:44)
[2020-05-18] MEDS: inSUlin ASPART (NovoLOG) 1 UNIT/0.01 ML (CHARGE PER UNIT) SC SCH ×4 (05:13→23:46)
[2020-05-18 07:20] VITALS: BP 142/53
--- NOTE | 2020-05-18 07:57 | Diagnostic Imaging Report ---
EXAMINATION: Chest radiograph, portable AP view. DATE: 05/18/2020 3:45 AM INDICATION: 74-year-old male, shortness of breath. The patient is COVID positive. COMPARISON: May 17, 2020. FINDINGS: The endotracheal tube is approximately 4.9 cm above the jorge alberto. The right-sided PICC line overlies the upper SVC. The nasogastric tube is in the stomach. Heart size and mediastinal contours are unchanged. There is no identified pneumothorax. There is extensive and unchanged multifocal bilateral lung consolidation. IMPRESSION: 1. Essentially unchanged multifocal bilateral lung consolidation. 2. Support lines and tubes as above. Dictated by: Dictated on workstation # [id number]
[2020-05-18] MEDS: CLOPIDOGREL 75 MG (PLAVIX) TABLET PO SCH (08:05)
[2020-05-18] MEDS: ENOXAPARIN 40 MG/0.4 ML (LOVENOX) SYR SC SCH (08:05)
[2020-05-18] MEDS: MICONAZOLE 2% POWDER (DESENEX AF) 90 GM TOP SCH ×2 (08:05→21:21)
[2020-05-18] MEDS: amLODIPine 10 MG (NORVASC) TAB PO SCH (08:05)
[2020-05-18] MEDS: PANTOPRAZOLE 40 MG (PROTONIX) VIAL IV SCH (08:05)
[2020-05-18] MEDS: meTOprolol TARTRATE 25 MG (LOPRESSOR) TABLET GT SCH ×2 (08:05→21:21)
[2020-05-18] MEDS: ARTIFICIAL TEARS OINT (LACRI-LUBE) 3.5 GM TUBE OU SCH ×2 (08:05→21:21)
[2020-05-18] MEDS: NYSTATIN OINTMENT 30 GM TUBE TOP SCH ×2 (08:05→21:21)
[2020-05-18] MEDS: LACTATED RINGERS 1,000 ML IV SCH (08:07)
[2020-05-18 10:30] VITALS: BP 133/51
[2020-05-18] MEDS ORDERED: dexAMETHasone 6 MG TAB (DECADRON) ONE (11:12)
--- NOTE | 2020-05-18 11:18 | Progress Note - Hospitalist ---
Subjective HPI/CC On Admission Date Seen by Provider: May 18, 2020 Time Seen by Provider: 11:30 Subjective/Events-last exam No significant changes Vent dependence [place] Tuesday? Updated yesterday in good detailed conversation Checked meds and labs Objective Exam Vital Signs Vital Signs Date Time Temp Pulse Resp B/P (MAP) Pulse Ox O2 Delivery O2 Flow Rate FiO2 05/18/20 19:11 55 26 95 50 05/18/20 18:00 36.0 Mechanical Ventilator 50.00 Capillary Refill : Less Than 3 Seconds General Appearance: No Apparent Distress, WD/WN, Chronically ill Respiratory: Chest Non Tender, Lungs Clear, Normal Breath Sounds, No Accessory Muscle Use, No Respiratory Distress Cardiovascular: Regular Rate, Rhythm Results/Procedures Lab Laboratory Tests 05/18/20 01:43 Patient resulted labs reviewed. Imaging: Reviewed Imaging Films, Reviewed Imaging Report Assessment/Plan Assessment and Plan Assess & Plan/Chief Complaint Assessment per Dr Pittman with my modifications: Acute respiratory failure Pt intubated on 05/09 -Vent 450/26/5 and 45% -Possible [place] transfer Tuesday -Propofol at 40 and Fentanyl at 200, Precedex at 0.5 PRN Ativan -Continue TF -LR at 30 COVID 19 with pneumonia -Zosyn -MRSA swab is positive. 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 Plan: [place] candidate 05/18/20: VDRF [place]? Critical Care Critically Ill Patient ABAD,DUKE PINEDO May 18, 2020 11:18
[2020-05-18] MEDS: dexAMETHasone 6 MG TAB (DECADRON) PO SCH (11:21)
--- NOTE | 2020-05-18 11:39 | NUR ---
THIS RN CALLED PT'S , MIRANDA, AND PROVIDED UPDATEL.
[2020-05-18] MEDS: LORazepam INJ 2 MG/ML (ATIVAN) VIAL IV PRN (14:24)
[2020-05-18 14:37] VITALS: BP 139/55
[2020-05-18 19:11] VITALS: BP 154/61
[2020-05-18 22:25] VITALS: BP 153/62
[2020-05-19 02:40] VITALS: BP 162/64
[2020-05-19] MEDS: RT-ALBUTEROL INHALER HFA (VENTOLIN HFA) 18 GM IH SCH ×4 (02:40→15:14)
[2020-05-19] MEDS: PROPOFOL DRIP (ICU) 100 ML IV SCH ×4 (03:07→13:44)
[2020-05-19 03:48] LABS: BASOPHILS % (AUTO) 0 % (0-10); EOSINOPHILS # (AUTO) 0.2 10^3/uL (0.0-0.3); EOSINOPHILS % (AUTO) 1 % (0-10); HEMATOCRIT 35 % (40-54); HEMOGLOBIN 10.8 g/dL (13.3-17.7); LYMPHOCYTES # (AUTO) 1.1 10^3/uL (1.0-4.0); LYMPHOCYTES % (AUTO) 8 % (12-44); MEAN CORPUSCULAR HEMOGLOBIN 31 pg (25-34); MEAN CORPUSCULAR HGB CONC 31 g/dL (32-36); MEAN CORPUSCULAR VOLUME 99 fL (80-99); MEAN PLATELET VOLUME 12.1 fL (9.0-12.2); MONOCYTES % (AUTO) 7 % (0-12); NEUTROPHILS # (AUTO) 11.2 10^3/uL (1.8-7.8); NEUTROPHILS % (AUTO) 82 % (42-75); PLATELET COUNT 174 10^3/uL (130-400); WHITE BLOOD COUNT 13.7 10^3/uL (4.3-11.0)
[2020-05-19 04:00] LABS: CHLORIDE 107 MMOL/L (98-107); POTASSIUM 4.6 MMOL/L (3.6-5.0); SODIUM 139 MMOL/L (135-145)
--- NOTE | 2020-05-19 04:00 | NUR ---
Dr Pittman and this RN called Frank, , and updated on pt condition, all questions answered, discussion about potentially sending pt to [place] today.
[2020-05-19 04:02] LABS: GLUCOSE 137 MG/DL (70-105)
[2020-05-19 04:03] LABS: CARBON DIOXIDE 22 MMOL/L (21-32)
--- NOTE | 2020-05-19 04:05 | Pulmonary Progress Note ---
Subjective Time Seen by a Provider: 03:58 Subjective/Events-last exam Pt is sedated on vent. Sepsis Event Evaluation Height, Weight, BMI Height: 5'11.00" Weight: 191lbs. 0.0oz. 86.272488en; 34.11 BMI Method:Stated Exam Exam Vital Signs Date Time Temp Pulse Resp B/P (MAP) Pulse Ox O2 Delivery O2 Flow Rate FiO2 05/19/20 02:40 60 31 100 40 05/18/20 23:00 36.1 61 26 94 Mechanical Ventilator 40.00 05/18/20 22:45 Mechanical Ventilator 40.00 05/18/20 22:25 62 26 96 50 05/18/20 22:00 36.0 66 25 97 Mechanical Ventilator 50.00 05/18/20 21:00 93 Mechanical Ventilator 50 05/18/20 21:00 36.0 62 25 94 Mechanical Ventilator 50.00 05/18/20 20:00 36.0 62 25 95 Mechanical Ventilator 50.00 05/18/20 19:11 55 26 95 50 05/18/20 19:00 60 05/18/20 19:00 36.1 60 25 93 Mechanical Ventilator 50.00 05/18/20 18:00 36.0 57 25 92 Mechanical Ventilator 50.00 05/18/20 17:09 56 138/55 05/18/20 17:08 56 137/55 05/18/20 17:08 56 139/56 05/18/20 17:00 36.1 55 25 91 Mechanical Ventilator 50.00 05/18/20 16:00 36.2 55 25 94 Mechanical Ventilator 50.00 05/18/20 15:00 36.4 61 25 95 Mechanical Ventilator 50.00 05/18/20 14:37 64 30 100 50 05/18/20 14:00 36.4 65 26 95 Mechanical Ventilator 50.00 05/18/20 13:00 36.5 59 32 92 Mechanical Ventilator 50.00 05/18/20 12:56 58 05/18/20 12:00 36.5 60 25 94 Mechanical Ventilator 50.00 05/18/20 11:23 58 141/55 05/18/20 11:22 57 144/56 05/18/20 11:21 59 143/55 05/18/20 11:00 36.5 59 25 92 Mechanical Ventilator 50.00 05/18/20 10:30 58 26 93 50 05/18/20 10:00 36.7 56 25 93 Mechanical Ventilator 50.00 05/18/20 09:00 36.9 59 26 94 Mechanical Ventilator 50.00 05/18/20 08:21 93 Mechanical Ventilator 50 05/18/20 08:00 37.0 58 27 94 Mechanical Ventilator 50.00 05/18/20 07:20 59 26 95 50 05/18/20 07:00 61 05/18/20 07:00 37.0 61 25 95 Mechanical Ventilator 50.00 05/18/20 06:00 37.0 58 25 95 Mechanical Ventilator 50.00 05/18/20 05:11 128/47 05/18/20 05:10 59 05/18/20 05:10 138/51 05/18/20 05:00 37.1 60 25 95 Mechanical Ventilator 50.00 05/18/20 04:00 37.1 61 26 95 Mechanical Ventilator 50.00 I & O 05/19/20 07:00 Intake Total 3850 ml Output Total 1700 ml Balance 2150 ml Height & Weight Height: 5'11.00" Weight: 191lbs. 0.0oz. 86.046478yp; 34.11 BMI Method:Stated General Appearance: No Apparent Distress, WD/WN, Chronically ill HEENT: PERRL/EOMI, Pharynx Normal, Other (Mucous membranes dry) Neck: Limited Range of Motion Respiratory: Chest Non Tender, Lungs Clear, Normal Breath Sounds, No Accessory Muscle Use, No Respiratory Distress Cardiovascular: Regular Rate, Rhythm Capillary Refill: Less Than 3 Seconds Extremity: No Pedal Edema (Tight) Neurologic/Psychiatric: Alert, Oriented x3, Depressed Affect Results Lab Laboratory Tests 05/18/20 01:43 05/19/20 03:10 Assessment/Plan Assessment/Plan Acute respiratory failure Pt intubated on 05/09 -Vent 450/26/5 and 40% -Possible [place] today if family is agreeable. -I called family this morning and answered all questions to the best of my ability. -Propofol at 40 and Fentanyl at 200, Precedex at 0.5 PRN Ativan -Continue TF -LR at 30 COVID 19 with pneumonia -Zosyn -MRSA swab is positive. 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 Critical Care: Critically Ill Patient Time spent with patient (mins): 60 TANMAY MAI DO May 19, 2020 04:05
[2020-05-19 04:06] LABS: CREATININE SERUM 0.79 MG/DL (0.60-1.30); GFR ESTIMATED > 60
[2020-05-19 04:07] LABS: BUN/CREATININE RATIO 23
[2020-05-19 04:08] LABS: MAGNESIUM 1.8 MG/DL (1.6-2.4)
[2020-05-19 04:26] LABS: ABG BASE EXCESS -0.6 MMOL/L (-2.5-2.5); ABG OXYGEN SATURATION 94 % (94-100); ABG PCO2 56 MMHG (35-45); ABG PO2 76 MMHG (79-93); ABG TCO2 27.2 MMOL/L (21.0-31.0)
[2020-05-19 04:28] LABS: ABG PH 7.28 (7.37-7.43)
[2020-05-19 04:29] LABS: ALLENS TEST ART LINE; INSPIRED O2 40%; PATIENT TEMP 36.5; VENTILATOR YES
[2020-05-19] MEDS: MAGNESIUM 1 GM/100 ML IVPB 100 ML IV SCH (05:07)
[2020-05-19] MEDS: POTASSIUM CL 10MEQ/50ML IVPB 50 ML IV SCH (05:07)
[2020-05-19] MEDS: KCL 20 MEQ TAB (K-DUR) PO SCH (05:07)
[2020-05-19] MEDS: inSUlin ASPART (NovoLOG) 1 UNIT/0.01 ML (CHARGE PER UNIT) SC SCH ×2 (05:08→11:25)
[2020-05-19] MEDS: fentaNYL DRIP PRE-MIX 250 ML IV SCH ×2 (05:22→11:42)
[2020-05-19] MEDS: DexMEDEtomidine PRE MIX 100 ML IV SCH ×2 (06:05→13:02)
--- NOTE | 2020-05-19 07:05 | Diagnostic Imaging Report ---
Indication: Pneumonia, intubated. Comparison: 05/18/2020 Findings: Single view of the chest demonstrates low lung volumes with bilateral pulmonary infiltrates. The heart is enlarged. There is no pneumothorax. Support devices are stable. IMPRESSION: Unchanged aeration of the lungs. Dictated by: Dictated on workstation # [id number]
[2020-05-19 07:33] VITALS: BP 141/55
--- NOTE | 2020-05-19 08:13 | Physical Therapy Progress Note ---
Therapy Progress Note Patient remains sedated and intubated. PT will continue to monitor patient status. GUY SANTOS PT May 19, 2020 08:12
[2020-05-19] MEDS: ENOXAPARIN 40 MG/0.4 ML (LOVENOX) SYR SC SCH (08:53)
[2020-05-19] MEDS: PANTOPRAZOLE 40 MG (PROTONIX) VIAL IV SCH (08:54)
[2020-05-19] MEDS: meTOprolol TARTRATE 25 MG (LOPRESSOR) TABLET GT SCH (08:54)
[2020-05-19] MEDS: ARTIFICIAL TEARS OINT (LACRI-LUBE) 3.5 GM TUBE OU SCH (08:54)
[2020-05-19] MEDS: amLODIPine 10 MG (NORVASC) TAB PO SCH (08:54)
[2020-05-19] MEDS: NYSTATIN OINTMENT 30 GM TUBE TOP SCH (08:54)
[2020-05-19] MEDS: CLOPIDOGREL 75 MG (PLAVIX) TABLET PO SCH (08:54)
[2020-05-19] MEDS: MICONAZOLE 2% POWDER (DESENEX AF) 90 GM TOP SCH (08:54)
[2020-05-19 11:02] VITALS: BP 159/55
--- NOTE | 2020-05-19 11:18 | Physical Therapy Progress Note ---
Therapy Progress Note Non - skilled PROM performed B U/LE in available planes. Assisted nursing with pericare and repositioning. GEOVANI BRIGHT PT May 19, 2020 11:18
[2020-05-19] MEDS ORDERED: dexAMETHasone 6 MG TAB (DECADRON) ONE (12:54)
[2020-05-19] MEDS: dexAMETHasone 6 MG TAB (DECADRON) PO SCH (13:02)
[2020-05-19] MEDS ORDERED: PANT40VI IV (14:25)
[2020-05-19] MEDS ORDERED: [UNRECOGNIZED DRUG - CODE] IV (14:25)
[2020-05-19] MEDS ORDERED: ALBU18HF2 IH (14:25)
[2020-05-19] MEDS ORDERED: PROP10VI48 IV (14:25)
[2020-05-19] MEDS ORDERED: NYST15OI13 TOP (14:25)
[2020-05-19] MEDS ORDERED: MICO90PO TOP (14:25)
[2020-05-19] MEDS ORDERED: DEXA6TAB PO (14:25)
[2020-05-19] MEDS ORDERED: METO-333 GT (14:25)
[2020-05-19] MEDS ORDERED: HYDR20VI7 IV (14:25)
[2020-05-19] MEDS ORDERED: GUAI100L13 PO (14:25)
[2020-05-19] MEDS ORDERED: LORA2VIA3 IV (14:25)
[2020-05-19] MEDS ORDERED: Artificial Tears OU (14:25)
[2020-05-19 15:16] VITALS: BP 159/55
[2020-05-19 15:35] VITALS: BP 159/55
== END 2020-05-19 15:35 | DRG 207 ==
LOC: EDUNIT# 11:04 → ER 11:08 → ICU 13:46
PROVIDERS: ADMIT Family Medicine; ATTEND Family Medicine
PROC: 5A09457 Assistance with Respiratory Ventilation, 24-96 Consecutive Hours, Continuous Positive Airway Pressure (ICD-10-PCS; 2020-05-07)
PROC: XW13325 Transfusion of Convalescent Plasma (Nonautologous) into Peripheral Vein, Percutaneous Approach, New Technology Group 5 (ICD-10-PCS; 2020-05-07)
PROC: 5A1955Z Respiratory Ventilation, Greater than 96 Consecutive Hours (ICD-10-PCS; principal; 2020-05-09)
PROC: 0BH17EZ Insertion of Endotracheal Airway into Trachea, Via Natural or Artificial Opening (ICD-10-PCS; 2020-05-09)
DX: U07.1 COVID-19 (principal); J12.82 Pneumonia due to coronavirus disease 2019; J15.9 Unspecified bacterial pneumonia; J96.21 Acute and chronic respiratory failure with hypoxia; N17.9 Acute kidney failure, unspecified; I50.30 Unspecified diastolic (congestive) heart failure; J43.9 Emphysema, unspecified; R19.7 Diarrhea, unspecified; I11.0 Hypertensive heart disease with heart failure; I25.10 Atherosclerotic heart disease of native coronary artery without angina pectoris; I73.9 Peripheral vascular disease, unspecified; I48.91 Unspecified atrial fibrillation; G47.30 Sleep apnea, unspecified; F41.9 Anxiety disorder, unspecified; K21.9 Gastro-esophageal reflux disease without esophagitis; M19.91 Primary osteoarthritis, unspecified site; Z99.81 Dependence on supplemental oxygen; Z95.5 Presence of coronary angioplasty implant and graft; Z95.820 Peripheral vascular angioplasty status with implants and grafts; Z96.652 Presence of left artificial knee joint; Z87.891 Personal history of nicotine dependence; Z79.2 Long term (current) use of antibiotics; Z88.6 Allergy status to analgesic agent; Z88.2 Allergy status to sulfonamides
CPT/HCPCS: 36415; 36569; 71045; 74018; 76937; 80048; 80053; 81000; 82805; 82962; 83605; 83735; 84100; 84145; 84478; 85007; 85025; 85027; 85379; 85384; 85610; 85730; 86141; 86900; 86901; 87040; 87070; 87081; 87088; 87205; 87635; 87804; 94002; 94003; 94640; 94660; 94664; 94799; 96360